=== PATIENT | female | born 1980 | race Caucasian/White ===

== ENCOUNTER 2016-08-10 16:53 | Observation (INO) | payer MEDICARE, OTHER ==
[2016-08-10] MEDS ORDERED: ONDANSETRON 4 MG/2 ML VIAL IVP STA ×3 (17:20→22:04)
[2016-08-10] MEDS ORDERED: HYDROmorphone 1 MG/ML 1 ML SYRINGE IVP STA ×2 (17:21→19:31)
[2016-08-10] MEDS ORDERED: LORazepam 2 MG/ML SYRINGE IV STA ×2 (17:21→21:46)
--- NOTE | 2016-08-10 17:25 | ED ---
General Adult HPI - General Source: patient, RN notes reviewed Mode of arrival: wheelchair Limitations: no limitations <Tip Sims - Last Filed: 08/10/16 19:08> <Cheo Rowland - Last Filed: 08/10/16 20:41> - General Chief complaint: Recheck/Abnormal Lab/Rx Stated complaint: Palpitations - Reaction to Medication Time Seen by Provider: 08/10/16 17:00 - History of Present Illness Initial comments: This is a 36-year-old female who presents to the emergency department with past medical history significant for multiple sclerosis. Patient had some recent visual disturbances which is typical for her exacerbation. Patient's neurologist ordered a gram of Solu-Medrol but more recently she's been having some side effects from Solu-Medrol so they wanted her to come down here be monitored while she was on a Solu-Medrol. Patient states she feels very agitated and feels as though her heart is racing. Patient also states she occasionally feels short of breath when she is taking it but it could just be her anxiety she states. Patient denies any chest pain. Patient denies any abdominal pain patient denies any recent fever chills or cough. Patient denies any vomiting or diarrhea. Patient states she does have some upper back discomfort which is typical of her MS. She denies any recent injury or trauma. Patient states the symptoms secondary to Solu-Medrol started occurring earlier this year and occur every time she seems to get Solu-Medrol. (Tip Sims) - Related Data Home Medications Medication Instructions Recorded Confirmed Albuterol Inhaler [Ventolin Hfa 2 puff INHALATION RT-QID PRN 12/09/13 08/09/16 Inhaler] Famotidine [Pepcid] 20 mg PO BID 12/09/13 08/09/16 Ipratropium/Albuterol Sulfate 1 puff INHALATION RT-QID PRN 12/09/13 08/09/16 [Combivent Respimat Inhaler] Montelukast [Singulair] 10 mg PO DAILY 12/09/13 08/09/16 Topiramate [Topamax] 200 mg PO BID 12/09/13 08/09/16 Dimethyl Fumarate [Tecfidera] 240 mg PO BID 07/15/14 08/09/16 Ocella 1 tab PO DAILY 04/13/15 08/09/16 Ondansetron Odt [Zofran Odt] 4 mg PO Q8HR PRN 04/13/15 08/09/16 Ergocalciferol [Vitamin D2] 50,000 unit PO MO 12/24/15 08/09/16 Meclizine [Antivert] 25 mg PO BID 12/24/15 08/09/16 Sertraline [Zoloft] 100 mg PO BID 12/24/15 08/09/16 Dextroamphetamine/Amphetamine 20 mg PO DAILY 01/01/16 08/09/16 [Adderall] Lisinopril [Prinivil] 10 mg PO DAILY 01/01/16 08/09/16 SUMAtriptan SUCCINATE [Imitrex] 200 mg PO DAILY PRN 01/01/16 08/09/16 Pentosan Polysulfate Sodium 100 mg PO TID 02/07/16 08/09/16 [Elmiron] Dicyclomine [Bentyl] 20 mg PO QID PRN 08/09/16 08/09/16 Morphine Sulfate [Morphine Sulfate 30 mg PO BID 08/09/16 08/09/16 ER] oxyCODONE-APAP 10-325MG [Percocet 1 tab PO Q4-6H PRN 08/09/16 08/09/16 10-325 mg] tiZANidine [Zanaflex] 8 mg PO QID 08/09/16 08/09/16 Previous Rx's Medication Instructions Recorded Oxybutynin Chloride [Ditropan] 5 mg PO TID #45 tab 12/24/15 Allergies Allergy/AdvReac Type Severity Reaction Status Date / Time amoxicillin [Amoxicillin] Allergy Severe Anaphylaxis, Verified 08/10/16 17:02 seizures amoxicillin trihydrate Allergy Severe seizures Verified 08/10/16 17:02 [From Augmentin] ciprofloxacin [From Cipro] Allergy Severe Rash/Hives, Verified 08/10/16 17:02 seizures codeine phosphate Allergy Unknown Rash/Hives Verified 08/10/16 17:02 [From Tylenol-Codeine #3] ibuprofen [From Motrin] Allergy Unknown Rash/Hives,Lips Verified 08/10/16 17:02 swell ketorolac tromethamine Allergy Unknown Rash/Hives Verified 08/10/16 17:02 [From Toradol] cefuroxime axetil Allergy Rash/Hives Verified 08/10/16 17:02 [From Ceftin] latex Allergy Rash/Hives Verified 08/10/16 17:02 NSAIDS (Non-Steroidal Allergy Rash/Hives,Lips Verified 08/10/16 17:02 Anti-Inflamma swell Review of Systems ROS Other: All systems not noted in ROS Statement are negative. <Tip Sims - Last Filed: 08/10/16 19:08> ROS Other: All systems not noted in ROS Statement are negative. <Cheo Rowland - Last Filed: 08/10/16 20:41> ROS Statement: Those systems with pertinent positive or pertinent negative responses have been documented in the HPI. (Tip Sims) (Cheo Rowland) Past Medical History Past Medical History: Neurologic Disorder, Renal Disease, Seizure Disorder Additional Past Medical History / Comment(s): Multiple Sclerosis; migraines; DJD ,. History of Any Multi-Drug Resistant Organisms: C-DIFF Date of last positivie culture/infection: 12/17/2014 MDRO Source:: stool Past Surgical History: Cholecystectomy, Orthopedic Surgery Additional Past Surgical History / Comment(s): Lt shoulder rotator cuff repair 06/06/14 @ [facility] pt has since re-torn, Arthroscopic left knee 2000 & 2002. ARTHROSCOPY LT SHOULDER. Past Anesthesia/Blood Transfusion Reactions: No Reported Reaction Additional Past Anesthesia/Blood Transfusion Reaction / Comment(s): Pt has never recieved blood. Past Psychological History: Anxiety, Depression Additional Psychological History / Comment(s): Pt lives with her and their daughter. She is independent. She has MS and when she has a flare up she will use a walker or wheelchair. She drives a car. Smoking Status: Former smoker Past Alcohol Use History: None Reported Additional Past Alcohol Use History / Comment(s): STARTED SMOKING AGE 17 now smoking about 1/4 ppd. Patient denies any medical marijuana, marijuana, street drug use. She denies any alcohol use or abuse. Patient is and lives with her and one child. There is a dog in the home. No recent travel. Patient is on disability. Past Drug Use History: None Reported - Past Family History Mother Family Medical History: No Reported History Additional Family Medical History / Comment(s): mother is healthy Father Family Medical History: Hypertension <Tip Sims - Last Filed: 08/10/16 19:08> General Exam Limitations: no limitations <Tip Sims - Last Filed: 08/10/16 19:08> <Cheo Rowland - Last Filed: 08/10/16 20:41> - General Exam Comments Initial Comments: GENERAL: Patient is well-developed and well-nourished. Patient is nontoxic and well- hydrated and is in mild distress. ENT: Neck is soft and supple. No significant lymphadenopathy is noted. Oropharynx is clear. Moist mucous membranes. Neck has full range of motion without eliciting any pain. EYES: The sclera were anicteric and conjunctiva were pink and moist. Extraocular movements were intact and pupils were equal round and reactive to light. Eyelids were unremarkable. PULMONARY: Unlabored respirations. Good breath sounds bilaterally. No audible rales rhonchi or wheezing was noted. CARDIOVASCULAR: There is a regular rate and rhythm without any murmurs gallops or rubs. ABDOMEN: Soft and nontender with normal bowel sounds. No palpable organomegaly was noted. There is no palpable pulsatile mass. SKIN: Skin is clear with no lesions or rashes and otherwise unremarkable. NEUROLOGIC: Patient is alert and oriented x3. Cranial nerves II through XII are grossly intact. Normal speech, volume and content. Symmetrical smile. MUSCULOSKELETAL: Normal extremities with adequate strength and full range of motion. No lower extremity swelling or edema. No calf tenderness. LYMPHATICS: No significant lymphadenopathy is noted PSYCHIATRIC: Normal psychiatric evaluation. Patient has mild anxiety (Tip Sims) Course <Tip Sims - Last Filed: 08/10/16 19:08> <Cheo Rowland - Last Filed: 08/10/16 20:41> Vital Signs 08/10/16 08/10/16 16:58 18:02 Temperature 97.8 F Pulse Rate 84 99 Respiratory 20 18 Rate Blood Pressure 154/103 O2 Sat by Pulse 99 100 Oximetry (Tip Sims) (Cheo Rowland) - Reevaluation(s) Reevaluation #1: 08/10/16 20:39 The patient was noted to have a heart related symptoms of 150 and almost 160 range. EKG done at this time showed a heart rate of 127. Interval 124 QRS duration 76 daily since QTC of 324/[address] configuration. I did discuss findings with patient and with Dr. Smith the patient will be admitted for evaluation by cardiology and neurology. (Cheo Rowland) Medical Decision Making - Lab Data Result diagrams: 08/10/16 17:40 08/10/16 17:40 <Tip Sims - Last Filed: 08/10/16 19:08> - Lab Data Result diagrams: 08/10/16 17:40 08/10/16 17:40 <Cheo Rowland - Last Filed: 08/10/16 20:41> - Medical Decision Making EKG shows normal sinus rhythm at 86 bpm OR interval 222 QRS is 80 QT intervals 344 QTC is 411. Patient's EKG shows no ST segment elevation or depression or T- wave abdomen is noted Dr. Rowland will be taking over the care of this patient at 7 PM (Tip Sims) - Lab Data Lab Results 08/10/16 08/10/16 08/10/16 Range/Units 17:40 17:40 17:40 WBC 27.2 H* (3.8-10.6) k/uL RBC 4.61 (3.80-5.40) m/uL Hgb 13.2 (11.4-16.0) gm/dL Hct 41.4 (34.0-46.0) % MCV 89.7 (80.0-100.0) fL MCH 28.5 (25.0-35.0) pg MCHC 31.8 (31.0-37.0) g/dL RDW 13.4 (11.5-15.5) % Plt Count 380 (150-450) k/uL Neutrophils % 86 % Lymphocytes % 7 % Monocytes % 5 % Eosinophils % 0 % Basophils % 0 % Neutrophils # 23.4 H (1.3-7.7) k/uL Lymphocytes # 2.0 (1.0-4.8) k/uL Monocytes # 1.4 H (0-1.0) k/uL Eosinophils # 0.1 (0-0.7) k/uL Basophils # 0.0 (0-0.2) k/uL PT (9.0-12.0) sec INR (<1.1) APTT (22.0-30.0) sec D-Dimer (<0.60) mg/L FEU Sodium 146 H (137-145) mmol/L Potassium 4.4 (3.5-5.1) mmol/L Chloride 110 H (98-107) mmol/L Carbon Dioxide 15 L (22-30) mmol/L Anion Gap 21 mmol/L BUN 13 (7-17) mg/dL Creatinine 0.77 (0.52-1.04) mg/dL Est GFR (MDRD) Af Amer >60 (>60 ml/min/1.73 sqM) Est GFR (MDRD) Non-Af >60 (>60 ml/min/1.73 sqM) Glucose 119 H (74-99) mg/dL Calcium 10.4 H (8.4-10.2) mg/dL Magnesium 1.9 (1.6-2.3) mg/dL Total Bilirubin 0.4 (0.2-1.3) mg/dL AST 22 (14-36) U/L ALT 20 (9-52) U/L Alkaline Phosphatase 44 (38-126) U/L Total Creatine Kinase 65 (30-135) U/L CK-MB (CK-2) 1.0 (0.0-2.4) ng/mL CK-MB (CK-2) Rel Index 1.5 Troponin I <0.012 (0.000-0.034) ng/mL Total Protein 7.9 (6.3-8.2) g/dL Albumin 5.1 H (3.5-5.0) g/dL Urine Color Urine Appearance (Clear) Urine pH (5.0-8.0) Ur Specific Marion (1.001-1.035) Urine Protein (Negative) Urine Glucose (UA) (Negative) Urine Ketones (Negative) Urine Blood (Negative) Urine Nitrate (Negative) Urine Bilirubin (Negative) Urine Urobilinogen (<2.0) mg/dL Ur Leukocyte Esterase (Negative) Urine RBC (0-5) /hpf Urine WBC (0-5) /hpf Ur Squamous Epith Cells (0-4) /hpf Hyaline Casts (0-2) /lpf Urine Mucus (None) /hpf 08/10/16 08/10/16 Range/Units 17:40 18:53 WBC (3.8-10.6) k/uL RBC (3.80-5.40) m/uL Hgb (11.4-16.0) gm/dL Hct (34.0-46.0) % MCV (80.0-100.0) fL MCH (25.0-35.0) pg MCHC (31.0-37.0) g/dL RDW (11.5-15.5) % Plt Count (150-450) k/uL Neutrophils % % Lymphocytes % % Monocytes % % Eosinophils % % Basophils % % Neutrophils # (1.3-7.7) k/uL Lymphocytes # (1.0-4.8) k/uL Monocytes # (0-1.0) k/uL Eosinophils # (0-0.7) k/uL Basophils # (0-0.2) k/uL PT 11.4 (9.0-12.0) sec INR 1.1 (<1.1) APTT 22.3 (22.0-30.0) sec D-Dimer 0.25 (<0.60) mg/L FEU Sodium (137-145) mmol/L Potassium (3.5-5.1) mmol/L Chloride (98-107) mmol/L Carbon Dioxide (22-30) mmol/L Anion Gap mmol/L BUN (7-17) mg/dL Creatinine (0.52-1.04) mg/dL Est GFR (MDRD) Af Amer (>60 ml/min/1.73 sqM) Est GFR (MDRD) Non-Af (>60 ml/min/1.73 sqM) Glucose (74-99) mg/dL Calcium (8.4-10.2) mg/dL Magnesium (1.6-2.3) mg/dL Total Bilirubin (0.2-1.3) mg/dL AST (14-36) U/L ALT (9-52) U/L Alkaline Phosphatase (38-126) U/L Total Creatine Kinase (30-135) U/L CK-MB (CK-2) (0.0-2.4) ng/mL CK-MB (CK-2) Rel Index Troponin I (0.000-0.034) ng/mL Total Protein (6.3-8.2) g/dL Albumin (3.5-5.0) g/dL Urine Color Yellow Urine Appearance Clear (Clear) Urine pH 7.0 (5.0-8.0) Ur Specific Marion 1.012 (1.001-1.035) Urine Protein Trace H (Negative) Urine Glucose (UA) Negative (Negative) Urine Ketones Negative (Negative) Urine Blood Trace H (Negative) Urine Nitrate Negative (Negative) Urine Bilirubin Negative (Negative) Urine Urobilinogen <2.0 (<2.0) mg/dL Ur Leukocyte Esterase Negative (Negative) Urine RBC 6 H (0-5) /hpf Urine WBC 1 (0-5) /hpf Ur Squamous Epith Cells 2 (0-4) /hpf Hyaline Casts 1 (0-2) /lpf Urine Mucus Rare H (None) /hpf (Cheo Rowland) Disposition <Tip Sims - Last Filed: 08/10/16 19:08> <Cheo Rowland - Last Filed: 08/10/16 20:41> Clinical Impression: Tachyarrhythmia, Exacerbation of multiple sclerosis, Atypical chest pain Disposition: ADMITTED IP TO THIS [facility] Condition: Stable
[2016-08-10 18:01] LABS: Basophils % (A) 0 %; Lymphocytes % (A) 7 %
[2016-08-10 18:08] LABS: CH 29.8; CHCM 33.4; Eosinophils # (A) 0.1 k/uL (0-0.7); Eosinophils % (A) 0 %; HCT 41.4 % (34.0-46.0); HDW 2.61; HGB 13.2 gm/dL (11.4-16.0); Luc # (Auto) 0.18; Luc % (Auto) 1; MCH 28.5 pg (25.0-35.0); MCHC 31.8 g/dL (31.0-37.0); MCV 89.7 fL (80.0-100.0); Mean Platelet Volume 7.9; Monocytes # (A) 1.4 k/uL (0-1.0); Monocytes % (A) 5 %; Neutrophils # (A) 23.4 k/uL (1.3-7.7); Neutrophils % (A) 86 %; RBC 4.61 m/uL (3.80-5.40); RDW 13.4 % (11.5-15.5); WBC (Perox) 28.47
[2016-08-10 18:11] LABS: WBC 27.2 k/uL (3.8-10.6)
[2016-08-10 18:12] LABS: ALT 20 U/L (9-52); AST 22 U/L (14-36); Alkaline Phosphatase 44 U/L (38-126); Anion Gap 21 mmol/L; Blood Urea Nitrogen 13 mg/dL (7-17); Calcium 10.4 mg/dL (8.4-10.2); Carbon Dioxide 15 mmol/L (22-30); Chloride 110 mmol/L (98-107); Glucose 119 mg/dL (74-99); Magnesium 1.9 mg/dL (1.6-2.3); Non-African American GFR(MDRD) >60 (>60 ml/min/1.73 sqM); Potassium 4.4 mmol/L (3.5-5.1); Sodium 146 mmol/L (137-145); Total Bilirubin 0.4 mg/dL (0.2-1.3); Total Protein 7.9 g/dL (6.3-8.2)
[2016-08-10 18:28] LABS: INR 1.1 (<1.1); Partial Thromboplastin Time 22.3 sec (22.0-30.0); Prothrombin Time 11.4 sec (9.0-12.0)
[2016-08-10 18:33] LABS: Creatine Kinase 65 U/L (30-135)
--- NOTE | 2016-08-10 18:36 | XR ---
EXAMINATION TYPE: XR chest 2V DATE OF EXAM: 08/10/2016 6:24 PM COMPARISON: 10/29/2013 HISTORY: Chest pain TECHNIQUE: Frontal and lateral views of the chest are obtained. FINDINGS: Heart and mediastinum are normal. Lungs are clear. Diaphragm is normal. There are chest le ads. Bony thorax appears normal. IMPRESSION: Normal chest. No change
[2016-08-10] MEDS ORDERED: DIAZEPAM 5 MG/ML 2 ML SYRINGE IVP STA (18:38)
[2016-08-10 18:47] LABS: Troponin I <0.012 ng/mL (0.000-0.034)
[2016-08-10 19:08] LABS: Appearance,Urine Clear (Clear); Bilirubin,Urine Negative (Negative); Glucose,Urine (UA) Negative (Negative); Ketones,Urine Negative (Negative); Leukocyte Esterase,Urine Negative (Negative); Mucus,Urine Rare /hpf; Nitrite,Urine Negative (Negative); Particle Count 1297; Protein,Urine Trace (Negative); RBC,Urine 6 /hpf (0-5); Specific Gravity,Urine 1.012 (1.001-1.035); Squamous Epithelial Cell,Urine 2 /hpf (0-4); UA Billing (MACRO vs. MICRO) MICRO; Urobilinogen,Urine <2.0 mg/dL (<2.0); WBC,Urine 1 /hpf (0-5)
[2016-08-10] MEDS ORDERED: ORPHENADRINE 30 MG/ML 2 ML VIAL IVP STA (20:10)
[2016-08-10] MEDS ORDERED: MAGNESIUM SULFATE-D5W PMX 1 GM in DEXTROSE/WATER 1 100ML.BAG IVPB ONE (20:30)
[2016-08-10] MEDS ORDERED: diphenhydrAMINE 50 MG/ML 1 ML VIAL IVP STA (20:41)
[2016-08-10] MEDS ORDERED: NITROGLYCERIN SL TABS 0.4 MG TAB SUBLINGUAL PRN (20:42)
[2016-08-10] MEDS ORDERED: ONDANSETRON ODT 4 MG TAB PO PRN (20:44)
[2016-08-10] MEDS ORDERED: DICYCLOMINE 20 MG TAB PO PRN (20:44)
[2016-08-10] MEDS ORDERED: MORPHINE SULFATE 4 MG/ML SYRINGE IVP STA (20:46)
[2016-08-10] MEDS ORDERED: IPRATROPIUM-ALBUTEROL 3 ML NEB INHALATION PRN (20:50)
[2016-08-10] MEDS ORDERED: MORPHINE SULFATE ER 30 MG TABLET PO SCH (21:00)
[2016-08-10] MEDS ORDERED: MORPHINE SULFATE 4 MG/ML SYRINGE IVP PRN (21:13)
[2016-08-10] MEDS ORDERED: DIAZEPAM 5 MG TAB PO STA (21:47)
[2016-08-10] MEDS ORDERED: HYDROmorphone 2 MG/ML 1 ML SYRINGE IVP STA (21:53)
[2016-08-10] MEDS ORDERED: NON-FORMULARY DRUG (Pentosan Polysulfate Sodium [Elmiron] 100 MG) PO SCH (22:00)
[2016-08-10] MEDS ORDERED: tiZANidine 4 MG TAB PO SCH (22:00)
[2016-08-10 23:41] VITALS: BMI 34.6
[2016-08-10] MEDS ORDERED: METOPROLOL TARTRATE 50 MG TAB PO STA (23:55)
[2016-08-11] MEDS ORDERED: IPRATROPIUM-ALBUTEROL 3 ML NEB INHALATION SCH
[2016-08-11] MEDS: SODIUM CHLORIDE 0.9% 1,000 ML IV SCH ×3 (00:29→17:38)
[2016-08-11] MEDS: SERTRALINE 100 MG TAB PO SCH ×3 (00:30→20:53)
[2016-08-11] MEDS: MECLIZINE 25 MG TAB PO SCH ×3 (00:30→20:53)
[2016-08-11] MEDS: TOPIRAMATE 100 MG TAB PO SCH ×3 (00:30→20:53)
[2016-08-11] MEDS: FAMOTIDINE 20 MG TAB PO SCH ×3 (00:30→20:53)
[2016-08-11] MEDS: tiZANidine 4 MG TAB PO SCH ×5 (00:31→20:53)
[2016-08-11] MEDS: OXYBUTYNIN CHLORIDE 5 MG TAB PO SCH ×4 (00:31→21:36)
[2016-08-11] MEDS: HYDROmorphone 1 MG/ML 1 ML SYRINGE IVP PRN ×5 (00:34→17:37)
[2016-08-11] MEDS: DIAZEPAM 5 MG/ML 2 ML SYRINGE IVP PRN ×3 (00:34→13:17)
[2016-08-11 00:39] LABS: Creatine Kinase 83 U/L (30-135)
[2016-08-11 00:52] LABS: Creatine Kinase MB 1.3 ng/mL (0.0-2.4); Troponin I <0.012 ng/mL (0.000-0.034)
[2016-08-11 06:42] LABS: Cholesterol 226 mg/dL (<200); HDL Cholesterol 66 mg/dL (40-60); Triglycerides 88 mg/dL (<150)
[2016-08-11 07:00] LABS: Creatine Kinase 108 U/L (30-135)
[2016-08-11 07:13] LABS: Creatine Kinase MB 1.7 ng/mL (0.0-2.4); Troponin I <0.012 ng/mL (0.000-0.034)
[2016-08-11] MEDS: MORPHINE SULFATE ER 30 MG TABLET PO SCH ×2 (08:54→20:52)
[2016-08-11] MEDS: MONTELUKAST 10 MG TAB PO SCH (08:55)
[2016-08-11] MEDS: LISINOPRIL 10 MG TAB PO SCH (08:55)
[2016-08-11] MEDS ORDERED: NON-FORMULARY DRUG (Dextroamphetamine/Amphetamine [Adderall] 20 MG) PO SCH ×2 (09:00→21:00)
[2016-08-11] MEDS: ONDANSETRON 4 MG/2 ML VIAL IVP PRN ×2 (10:44→21:02)
[2016-08-11 12:03] LABS: Glucose,Whole Blood 218 mg/dL (75-99)
[2016-08-11] MEDS: INSULIN LISPRO (humaLOG) 300 UNIT/3 ML VIAL SQ SCH ×3 (13:17→21:00)
--- NOTE | 2016-08-11 14:15 | P.CONS ---
History of Present Illness - Reason for Consult Consult date: 08/11/16 MS exacerbation - Chief Complaint MS exacerbation - History of Present Illness This is a 36-year-old female who presented to the emergency room at [facility] for exacerbation of multiple sclerosis. Her neurologist and ordered Solu-Medrol IV infusion. She is not sure which in this series of infusions that this one was. But she started to develop agitation and heart racing. She also has some shortness of breath and anxiety. The infusion was ordered because of some visual changes and left-sided weakness she was having. She does have a chronic left foot drop. At the time of my exam she is resting comfortably in bed. Cardiology consultation has been placed. Review of Systems All systems: negative Past Medical History Past Medical History: Asthma, Fibromyalgia, GERD/Reflux, Hypertension, Neurologic Disorder, Renal Disease, Seizure Disorder Additional Past Medical History / Comment(s): Multiple Sclerosis; migraines; DJD ,. interstitial cystitis. PCOS. vit D deficiency History of Any Multi-Drug Resistant Organisms: C-DIFF Year Discovered:: 12/17/2014 MDRO Source:: stool Past Surgical History: Cholecystectomy, Orthopedic Surgery Additional Past Surgical History / Comment(s): Lt shoulder rotator cuff repair 06/06/14 @ [facility].- pt has since re-torn, Arthroscopic left knee 2000 & 2002. ARTHROSCOPY LT SHOULDER. Past Anesthesia/Blood Transfusion Reactions: No Reported Reaction Additional Past Anesthesia/Blood Transfusion Reaction / Comm: Pt has never recieved blood. Past Psychological History: Anxiety, Depression Additional Psychological History / Comment(s): Pt lives with her and their daughter. She is independent. She has MS and when she has a flare up she will use a walker or wheelchair. She drives a car. Smoking Status: Former smoker Past Alcohol Use History: None Reported Additional Past Alcohol Use History / Comment(s): STARTED SMOKING AGE 17 now smoking about 1/4 ppd. Patient denies any medical marijuana, marijuana, street drug use. She denies any alcohol use or abuse. Patient is and lives with her and one child. There is a dog in the home. No recent travel. Patient is on disability. Past Drug Use History: None Reported - Past Family History Mother Family Medical History: No Reported History Additional Family Medical History / Comment(s): mother is healthy Father Family Medical History: Hypertension Medications and Allergies Home Medications Medication Instructions Recorded Confirmed Type Albuterol Inhaler [Ventolin Hfa 2 puff INHALATION RT-QID PRN 12/09/13 08/11/16 History Inhaler] Famotidine [Pepcid] 20 mg PO BID 12/09/13 08/11/16 History Ipratropium/Albuterol Sulfate 1 puff INHALATION RT-QID PRN 12/09/13 08/11/16 History [Combivent Respimat Inhaler] Montelukast [Singulair] 10 mg PO DAILY 12/09/13 08/11/16 History Topiramate [Topamax] 200 mg PO BID 12/09/13 08/11/16 History Dimethyl Fumarate [Tecfidera] 240 mg PO BID 07/15/14 08/11/16 History Ocella 1 tab PO DAILY 04/13/15 08/11/16 History Ondansetron Odt [Zofran Odt] 4 mg PO Q8HR PRN 04/13/15 08/11/16 History Ergocalciferol [Vitamin D2] 50,000 unit PO MO 12/24/15 08/11/16 History Meclizine [Antivert] 25 mg PO BID 12/24/15 08/11/16 History Sertraline [Zoloft] 100 mg PO BID 12/24/15 08/11/16 History Lisinopril [Prinivil] 10 mg PO DAILY 01/01/16 08/11/16 History SUMAtriptan SUCCINATE [Imitrex] 200 mg PO DAILY PRN 01/01/16 08/11/16 History Pentosan Polysulfate Sodium 100 mg PO TID 02/07/16 08/11/16 History [Elmiron] Dicyclomine [Bentyl] 20 mg PO QID PRN 08/09/16 08/11/16 History Morphine Sulfate [Morphine Sulfate 60 mg PO BID 08/09/16 08/11/16 History ER] oxyCODONE-APAP 10-325MG [Percocet 1 tab PO Q4H 08/09/16 08/11/16 History 10-325 mg] tiZANidine [Zanaflex] 8 mg PO QID 08/09/16 08/11/16 History Dextroamphetamine/Amphetamine 20 mg PO BID 08/11/16 08/11/16 History [Adderall] Allergies Allergy/AdvReac Type Severity Reaction Status Date / Time amoxicillin [Amoxicillin] Allergy Severe Anaphylaxis, Verified 08/11/16 09:16 seizures amoxicillin trihydrate Allergy Severe seizures Verified 08/11/16 09:16 [From Augmentin] ciprofloxacin [From Cipro] Allergy Severe Rash/Hives, Verified 08/11/16 09:16 seizures codeine phosphate Allergy Unknown Rash/Hives Verified 08/11/16 09:16 [From Tylenol-Codeine #3] ibuprofen [From Motrin] Allergy Unknown Rash/Hives,Lips Verified 08/11/16 09:16 swell ketorolac tromethamine Allergy Unknown Rash/Hives Verified 08/11/16 09:16 [From Toradol] cefuroxime axetil Allergy Rash/Hives Verified 08/11/16 09:16 [From Ceftin] latex Allergy Rash/Hives Verified 08/11/16 09:16 NSAIDS (Non-Steroidal Allergy Rash/Hives,Lips Verified 08/11/16 09:16 Anti-Inflamma swell Physical Exam Vitals: Vital Signs Temp Pulse Pulse Resp BP BP Pulse Ox 08/11/16 12:00 74 16 161/96 97 08/11/16 08:15 97.3 F L 70 16 145/102 96 08/11/16 04:00 96.7 F L 80 18 126/71 97 08/11/16 00:00 97.6 F 112 H 18 127/78 94 L 08/10/16 23:20 98.0 F 126 H 18 147/93 95 08/10/16 22:20 98.0 F 126 H 18 147/93 95 08/10/16 20:57 117 H 20 143/97 94 L Intake and Output 08/10/16 08/11/16 08/11/16 22:59 06:59 14:59 Intake Total 500 Balance 500 Intake: Amount of Fluid Infused ( 500 ml) Other: Weight 97.4 kg - Constitutional General appearance: mild distress - EENT There is a visual field deficit in the inferior half on the left. She states right I vision is quite blurry and she can make out mostly shadows. She says this is consistent with previous exacerbations. Eyes: no abnormal pupil, EOMI, PERRLA, no ptosis ENT: hearing grossly normal - Neck Neck: normal ROM, no rigidity - Respiratory Respiratory: negative: prolonged expiration, prolonged inspiration - Cardiovascular Rhythm: regular - Gastrointestinal General gastrointestinal: no distended, no tenderness - Neurologic She is alert awake and oriented 3. Speech and language are normal. There is no facial asymmetry. Strength is 4 minus out of 5 in the left upper extremity 5 out of 5 in the right upper extremity 4 minus out of 5 left lower extremity except for dorsiflexion of the left foot. This is at a 3 out of 5. There is a mild sensory deficit on the left upper and lower extremities. No tremors or seizure-like activities are seen. 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 Recommend completing 5 day course of Solu-Medrol as ordered. She will continue Tecfidera. Although she has had similar symptoms with previous exacerbations the lateralizing nature of her weakness and vision problems warrant further workup. I have ordered a carotid Doppler, and MRI of the brain with and without contrast, fasting lipid panel homocysteine level. She has an aspirin ALLERGY and may need to be started on Plavix. We'll await results of the above testing. Continue physical and occupational therapy. If her vision changes did not continue to improve with IV steroids would recommend ophthalmology consult. We will continue to follow for improvement. I have reviewed the history and physical on the above patient. I have reviewed the above note, and agree.
--- NOTE | 2016-08-11 14:59 | CONS ---
DATE OF CONSULTATION: Mrs. Uriarte is a 36 -year-old female who presented through the Emergency Room Department with symptoms of palpitations. She has a history of multiple sclerosis, has been receiving intravenous Solu-Medrol. She received infusion recently and had felt palpitation since that time, feeling shaky and jittery. The symptoms persisted and she came into the emergency room and subsequently admitted. Patient had the feeling of fast heartbeat and associated with tightness in the chest. She has dyspnea. She was quite anxious. She has no documented history of coronary artery disease, has no significant dyspnea on exertion. She had similar symptoms one time with infusion of Solu-Medrol. She has no syncope. No significant dizziness. No PND, orthopnea, or peripheral edema. Her coronary risk factors are remarkable for history of hypertension, and history of smoking. She is a nondiabetic. Her medications include: 1. Adderall. 2. ( ). 3. Ventolin. 4. ( ). 5. Bentyl. 6. Vitamin D. 7. Singulair. 8. Antivert. 9. Prinivil 10 mg daily. 10. Combivent. 11. Pepcid. 12. Zofran. 13. Imitrex. 14. ( ). 15. Ditropan. 16. Topamax. 17. Zanaflex. 18. Percocet. REVIEW OF SYSTEMS: RESPIRATORY SYSTEM: She has history of dyspnea on exertion. History of chronic tobacco use as well as history of asthma. GI: No recent GI bleeding. No peptic ulcer disease. system: No dysuria or hematuria. Nervous system: She has the history of multiple sclerosis. PHYSICAL EXAMINATION: A 36-year-old female, alert, oriented, in no apparent distress. Blood pressure 145/102 with a heart in the 70s. HEAD: Normocephalic. EYES: Sclerae anicteric. NECK: Good upstroke. No bruit. No jugular venous distention. LUNGS: Clear to auscultation. HEART: Regular rate and rhythm. S1, S2, no S3, no rub. ABDOMEN: Soft, nontender, positive bowel sounds. No organomegaly. EXTREMITIES: No edema. Intact distal pulses. Lab data revealed a white blood cell of 27.2. Hemoglobin 13.2. BUN and creatinine 13 and 0.77. Troponin less than 0.012 for 3 samples. Cholesterol 226, LDL of 142. EKG revealed sinus mechanism with sinus tachycardia with nonspecific ST-T wave changes. There is no evidence of significant arrhythmia. Chest x-ray shows no acute changes. IMPRESSION: 1. Symptoms of palpitation with sinus tachycardia secondary to the infusion of steroids. No evidence to suggest malignant arrhythmia. No evidence of supraventricular tachycardia. 2. History of multiple sclerosis. 3. History of hypertension. 4. History of chronic tobacco use. RECOMMENDATIONS: From the cardiac standpoint, she is stable, I see no evidence of any active abnormality. As an outpatient, she may benefit from an echocardiogram but at that this time no further cardiac work-up will be needed. We will see her on an as needed basis. Please feel free to call us for any questions.
[2016-08-11 16:59] LABS: Glucose,Whole Blood 141 mg/dL (75-99)
[2016-08-11] MEDS ORDERED: ALBUTEROL INHALER 60 PUFF/8 GM INHALER INHALATION PRN (17:16)
[2016-08-11] MEDS ORDERED: SUMATRIPTAN SUCCINATE PO PRN (17:16)
[2016-08-11] MEDS ORDERED: NON-FORMULARY DRUG (Ipratropium/Albuterol Sulfate [Combivent Respimat Inhaler] 1 PUFF) INHALATION PRN (17:16)
[2016-08-11] MEDS: LORazepam 2 MG/ML SYRINGE IV PRN (17:36)
[2016-08-11 19:47] LABS: Glucose,Whole Blood 171 mg/dL (75-99)
[2016-08-11] MEDS: HYDROmorphone 2 MG/ML 1 ML SYRINGE IVP PRN (20:52)
[2016-08-11] MEDS ORDERED: NON-FORMULARY DRUG (Dimethyl Fumarate [Tecfidera] 240 MG) PO SCH (21:00)
[2016-08-11] MEDS: HEPARIN SODIUM,PORCINE 5,000 UNIT/ML 1 ML VIAL SQ SCH (21:02)
[2016-08-11] MEDS: oxyCODONE-APAP 10-325MG 1 EACH TAB PO PRN (21:36)
[2016-08-11 23:55] LABS: Glucose,Whole Blood 171 mg/dL (75-99)
[2016-08-12] MEDS: SODIUM CHLORIDE 0.9% 1,000 ML IV SCH ×2 (00:19→11:55)
[2016-08-12] MEDS: HYDROmorphone 2 MG/ML 1 ML SYRINGE IVP PRN ×5 (01:50→21:15)
[2016-08-12] MEDS: LORazepam 2 MG/ML SYRINGE IV PRN ×3 (02:14→23:22)
[2016-08-12] MEDS: oxyCODONE-APAP 10-325MG 1 EACH TAB PO PRN ×3 (02:57→13:38)
[2016-08-12] MEDS: ONDANSETRON 4 MG/2 ML VIAL IVP PRN ×2 (03:00→10:07)
[2016-08-12] MEDS: FAMOTIDINE 20 MG TAB PO SCH ×2 (07:08→20:31)
[2016-08-12] MEDS: LISINOPRIL 10 MG TAB PO SCH (07:09)
[2016-08-12] MEDS: HEPARIN SODIUM,PORCINE 5,000 UNIT/ML 1 ML VIAL SQ SCH ×2 (07:09→20:31)
[2016-08-12] MEDS: MONTELUKAST 10 MG TAB PO SCH (07:09)
[2016-08-12] MEDS: OXYBUTYNIN CHLORIDE 5 MG TAB PO SCH ×3 (07:09→21:14)
[2016-08-12] MEDS: MECLIZINE 25 MG TAB PO SCH ×2 (07:09→20:31)
[2016-08-12] MEDS: TOPIRAMATE 100 MG TAB PO SCH ×2 (07:10→20:31)
[2016-08-12] MEDS: SERTRALINE 100 MG TAB PO SCH ×2 (07:10→20:31)
[2016-08-12] MEDS: tiZANidine 4 MG TAB PO SCH ×4 (07:10→21:14)
[2016-08-12 07:11] LABS: Glucose,Whole Blood 141 mg/dL (75-99)
[2016-08-12] MEDS: ATORVASTATIN 10 MG TAB PO SCH (07:11)
[2016-08-12 08:00] LABS: Anion Gap 12 mmol/L; Blood Urea Nitrogen 13 mg/dL (7-17); Calcium 9.2 mg/dL (8.4-10.2); Carbon Dioxide 21 mmol/L (22-30); Chloride 112 mmol/L (98-107); Glucose 146 mg/dL (74-99); Non-African American GFR(MDRD) >60 (>60 ml/min/1.73 sqM); Potassium 4.2 mmol/L (3.5-5.1); Sodium 145 mmol/L (137-145)
--- NOTE | 2016-08-12 08:01 | HP ---
DATE OF SERVICE: 06/11/2017 CHIEF COMPLAINT: Palpitation reaction to medications. HISTORY OF PRESENT ILLNESS: This 36-year-old woman with a past medical history of multiple medical problems including asthma, fibromyalgia, gastroesophageal reflux disease, history of seizure disorder, multiple sclerosis, optic neuritis, anxiety, depression being followed by neurologist in the outpatient setting has recommended high-dose IV steroids which have been given in the outpatient setting. Friday the patient had a first dose of IV steroids and subsequently patient was having feeling of palpitations and abdominal pain as well as or shortness of breath and some anxiety also. The patient came to [facility] and admitted to the hospital for further evaluation and treatment. Cardiac cath was suspected and oil burner repairer saw the patient and was thought to have sinus tachycardia secondary to infusion of steroids and the patient being closely monitored. There is no history of fever, rigors or chills. No history of headache, loss of consciousness or seizures. Past medical history of asthma, GERD, history of hypertension, hypertension, history of seizure disorder, multiple sclerosis, history of Clostridium difficile colitis, history of anxiety, depression. Medications prior to admission home medications prior to admission include: 1. Zanaflex 8 mg p.o. q.i.d. 2. Oxycodone 1 tablet q.4 p.r.n. 3. Topamax 200 mg p.o. b.i.d. 4. Zoloft 100 mg p.o. b.i.d. 7. Ditropan 5 mg p.o. t.i.d. 8. Zofran 4 mg q.8 p.r.n. 9. 1 tablet p.o. daily. 10. Morphine sulfate ER 60 mg p.o. b.i.d. 11. Singulair 10 mg p.o. daily. 12. Antivert 25 mg p.o. b.i.d. 13. Prinivil 10 mg p.o. daily. 14. Combivent 1 puff q.i.d. p.r.n. 15. Pepcid 20 mg p.o. b.i.d. 16. Vitamin D2, 50,000 Friday. 17. 240 mg p.o. b.i.d. 18. Bentyl 20 mg. 19. Adderall 20 mg p.o. b.i.d. 20. Albuterol 2 puffs q.i.d. p.r.n. ALLERGIES: AMOXICILLIN, CIPROFLOXACIN, CODEINE, IBUPROFEN, KETOROLAC, LATEX AND NSAIDS. FAMILY HISTORY: No history of heart disease or strokes in the family. SOCIAL HISTORY: Previous history of smoking. No history of alcohol intake. REVIEW OF SYSTEMS: ENT: No diminished vision. No diminished hearing. CARDIOVASCULAR: No angina or palpitations. RESPIRATORY: As mentioned earlier. GI: As mentioned earlier. GENITOURINARY: No dysuria. CENTRAL NERVOUS SYSTEM: As mentioned earlier. ALLERGY/IMMUNOLOGY: No asthma or hay fever. MUSCULOSKELETAL: As mentioned earlier. HEMATOLOGY/ONCOLOGY: As mentioned earlier. CONSTITUTIONAL: As mentioned earlier. DERMATOLOGY: Negative. RHEUMATOLOGY: Negative. PSYCHIATRY: As mentioned earlier. PHYSICAL EXAMINATION: The patient is alert and oriented x3. Pulse 74, blood pressure 161/97. Respiratory rate 16. Temperature 97.3, pulse ox 97% on room air. HEENT: Conjunctivae normal. Oral mucosa moist. NECK: No jugular venous distention. No carotid bruit. No lymph node enlargement. CARDIOVASCULAR: S1, S2 muffled. No S3, no S4. RESPIRATORY: Breath sounds diminished at the bases. No rhonchi, no crackles. ABDOMEN: Soft, nontender. No mass palpable. LEGS: No edema. No swelling. Nervous system: Higher function as mentioned. Moves all four limbs. Mild diffuse weakness. LYMPHATICS: No lymph nodes palpable in the neck, axillae or groin. SKIN: No ulcer, rash or bleeding. LABS: this time shows cholesterol 226. LDL is 146, otherwise UA noted. RBCs, WBC 27.2. Sodium is 146. TSH is not available. ASSESSMENT: 1. Palpitations and reaction to high-dose IV steroid infusion. 2. Increased white blood cell count present secondary to steroids. 3. Multiple sclerosis acute exacerbation. 4. Hypernatremia. 5. Decreased carbon dioxide. 6. Increased random blood sugar. 7. Increased calcium. 8. Hyperlipidemia. 9. Obesity with a body mass index of 34.7. 10. History of asthma, fibromyalgia. 11. History of gastroesophageal reflux disease. 12. Hypertension. 14. History of migraines. 15. Seizure disorder. 16. History of interstitial cystitis. 17. History of Clostridium difficile colitis. 18. History of cholecystectomy. 19. History of degenerative joint disease. 20. History of anxiety, depression, not otherwise specified. 21. Remote history of nicotine dependence. 22. FULL CODE. RECOMMENDATIONS AND DISCUSSION: In this 36-year-old woman who presented with multiple complex medical issues, we will monitor the patient closely. Continue the current medications, continue symptomatic treatment. Continue with IV high dose IV steroids. Continue pain management. Otherwise, I would also recommend DVT prophylaxis. Closely with cardiology. EKG has been reviewed. Cardiac work-up. Prognosis guarded because of multiple complex medical issues. Further recommendations to follow. A copy of dictation being forwarded to who is the primary care physician. EMIGDIO
[2016-08-12 08:05] LABS: Basophils % (A) 0 %; CH 29.2; CHCM 32.6; Eosinophils % (A) 0 %; HCT 35.6 % (34.0-46.0); HDW 2.56; HGB 11.1 gm/dL (11.4-16.0); Luc # (Auto) 0.06; Luc % (Auto) 0; Lymphocytes # (A) 1.3 k/uL (1.0-4.8); Lymphocytes % (A) 6 %; MCH 28.1 pg (25.0-35.0); MCHC 31.2 g/dL (31.0-37.0); MCV 90.1 fL (80.0-100.0); Mean Platelet Volume 7.8; Monocytes # (A) 0.6 k/uL (0-1.0); Monocytes % (A) 3 %; Neutrophils # (A) 20.6 k/uL (1.3-7.7); Neutrophils % (A) 91 %; RBC 3.96 m/uL (3.80-5.40); RDW 13.6 % (11.5-15.5); WBC 22.6 k/uL (3.8-10.6); WBC (Perox) 24.04
[2016-08-12] MEDS: INSULIN LISPRO (humaLOG) 300 UNIT/3 ML VIAL SQ SCH ×4 (08:18→20:32)
[2016-08-12] MEDS: MORPHINE SULFATE ER 30 MG TABLET PO SCH ×2 (08:19→20:31)
[2016-08-12] MEDS ORDERED: ERGOCALCIFEROL 50,000 UNIT CAP PO SCH (09:00)
[2016-08-12] MEDS ORDERED: OCELLA PO SCH (09:00)
[2016-08-12 11:32] LABS: Glucose,Whole Blood 140 mg/dL (75-99)
[2016-08-12 12:22] LABS: Hemoglobin A1C 5.3 % (4.2-6.1)
[2016-08-12 16:21] LABS: Glucose,Whole Blood 145 mg/dL (75-99)
[2016-08-12 18:08] LABS: Cholesterol 172 mg/dL (<200); HDL Cholesterol 69 mg/dL (40-60); Triglycerides 125 mg/dL (<150)
[2016-08-12 20:06] VITALS: RESP 16
[2016-08-12 20:20] LABS: Glucose,Whole Blood 163 mg/dL (75-99)
--- NOTE | 2016-08-12 23:24 | P.PN ---
Subjective Principal diagnosis: Patient is a 36-year-old female is being followed by neurology for exacerbation of multiple sclerosis. Her neurologist ordered Solu-Medrol IV infusion. She started developing agitation and racing heart. She also experienced some shortness of breath and anxiety. Infusion was ordered as a result of visual changes and left-sided weakness that was occurring. Patient does have chronic left foot drop in her past medical history. Patient is currently resting in bed in no acute distress. Cardiology is also consulting. Objective - Vital Signs Vital signs: Vital Signs Temp 97.9 F 08/12/16 20:00 Pulse 68 08/12/16 20:00 Resp 16 08/12/16 20:00 BP 183/99 08/12/16 20:00 Pulse Ox 97 08/12/16 20:00 Intake & Output 08/12/16 08/12/16 08/13/16 06:59 18:59 06:59 Intake Total 960 Balance 960 Weight 97.4 kg Intake: Oral 960 Other: # Voids 1 2 - Constitutional Constitutional Comment(s): patient is alert and oriented 3, speech is garbled at times. Patient also appears to be heavily medicated. General appearance: Present: no acute distress - EENT EENT Comment(s): normocephalic/atraumatic - Neck Details: supple no masses - Respiratory Details: no increased work of breathing - Cardiovascular Details: regular rate and rhythm - Gastrointestinal Gastrointestinal Comment(s): nontender nondistended - Integumentary Integumentary: Present: normal. Absent: cyanotic, flushed, pale - Neurologic Neurologic Comment(s): patient is alert and oriented 3. Speech and language are somewhat slurred at times. No facial asymmetry noted cranial nerve testing. Strength is 4 minus out of 5 in the left upper extremity and 5 out of 5 in the right upper extremity , 4 minus out of 5 left lower extremity. Right lower extremity is 3 out of 5. Mild sensory deficit on the left upper and lower extremities. No tremors or seizure-like activity noted. Patient does appear to be highly medicated and does have vertical nystagmus present. Neurologic: Present: CNII-XII intact. Absent: focal deficits - Musculoskeletal Musculoskeletal Comment(s): see comments in neurological section - Psychiatric Psychiatric: Present: A&O x's 3 - Labs CBC & Chem 7: 08/12/16 07:19 08/12/16 07:19 Labs: Abnormal Lab Results - Last 24 Hours (Table) 08/11/16 08/12/16 08/12/16 Range/Units 23:52 06:44 07:19 WBC 22.6 H (3.8-10.6) k/uL Hgb 11.1 L (11.4-16.0) gm/dL Neutrophils # 20.6 H (1.3-7.7) k/uL Chloride (98-107) mmol/L Carbon Dioxide (22-30) mmol/L Glucose (74-99) mg/dL POC Glucose (mg/dL) 171 H 141 H (75-99) mg/dL HDL Cholesterol (40-60) mg/dL TSH (0.465-4.680) mIU/L Free T4 (0.78-2.19) ng/dL 08/12/16 08/12/16 08/12/16 Range/Units 07:19 11:30 16:19 WBC (3.8-10.6) k/uL Hgb (11.4-16.0) gm/dL Neutrophils # (1.3-7.7) k/uL Chloride 112 H (98-107) mmol/L Carbon Dioxide 21 L (22-30) mmol/L Glucose 146 H (74-99) mg/dL POC Glucose (mg/dL) 140 H 145 H (75-99) mg/dL HDL Cholesterol (40-60) mg/dL TSH 0.063 L (0.465-4.680) mIU/L Free T4 0.74 L (0.78-2.19) ng/dL 08/12/16 08/12/16 Range/Units 17:37 20:19 WBC (3.8-10.6) k/uL Hgb (11.4-16.0) gm/dL Neutrophils # (1.3-7.7) k/uL Chloride (98-107) mmol/L Carbon Dioxide (22-30) mmol/L Glucose (74-99) mg/dL POC Glucose (mg/dL) 163 H (75-99) mg/dL HDL Cholesterol 69 H (40-60) mg/dL TSH (0.465-4.680) mIU/L Free T4 (0.78-2.19) ng/dL Assessment and Plan (1) Left-sided weakness Status: Acute (2) Visual changes Status: Chronic (3) Medication reaction Status: Suspected (4) Multiple sclerosis exacerbation Narrative/Plan: Patient seems to have suffered an exacerbation of her known multiple sclerosis. She is currently completing the 5 day course of Solu-Medrol as previously ordered. She'll also continue her Tecfidera. It is noted that she has had symptoms that were similar with previous exacerbations. However, the lateralizing weakness and vision changes warrant further workup. The patient was ordered a carotid Doppler, MRI of the brain with and without contrast, fasting lipid panel and homocystine level yesterday. Plavix was also recommended. Patient's fasting lipid panel returned elevated and the patient was placed on Lipitor by Dr. Soto. I am also going to start the patient on Plavix at this time. On exam the patient was unable to consistently keep eyes open, had slurred speech, inability to maintain a full conversation, it was brought to my attention that there is a significant amount of controlled substances in use with this patient. After reviewing the patients medication history, she currently has opioids/narcotics, muscle relaxant and a benzodiazepine concurrently in use. As a result, I am going to make the following changes to her Medication regimen: patient's benzodiazepine is for anxiety & based on the use it will remain. I am going to stop her muscle relaxant and her Dilaudid at this time.The concurrent use of benzodiazepines, muscle relaxants and narcotics/ opioids increase the risk of respiratory depression. Neurology will continue and provide further recommendations as warranted. Feel free to contact our office with any questions or concerns. I discussed the patient's pertinent medical information with Dr. Monsalve. He agrees with the plan of care as implemented. Status: Acute
[2016-08-13] MEDS: SODIUM CHLORIDE 0.9% 1,000 ML IV SCH ×2 (00:17→21:21)
[2016-08-13] MEDS ORDERED: amLODIPine 5 MG TAB PO STA (00:44)
[2016-08-13] MEDS: oxyCODONE-APAP 10-325MG 1 EACH TAB PO PRN ×4 (02:28→17:40)
[2016-08-13] MEDS: LORazepam 2 MG/ML SYRINGE IV PRN (05:09)
[2016-08-13 07:28] LABS: Glucose,Whole Blood 148 mg/dL (75-99)
[2016-08-13] MEDS: MORPHINE SULFATE ER 30 MG TABLET PO SCH ×2 (07:39→21:31)
[2016-08-13] MEDS: OXYBUTYNIN CHLORIDE 5 MG TAB PO SCH ×3 (07:41→21:30)
[2016-08-13] MEDS: SERTRALINE 100 MG TAB PO SCH ×2 (07:42→21:30)
[2016-08-13] MEDS: TOPIRAMATE 100 MG TAB PO SCH ×2 (07:42→21:31)
[2016-08-13] MEDS: MONTELUKAST 10 MG TAB PO SCH (07:43)
[2016-08-13] MEDS: CLOPIDOGREL 75 MG TAB PO SCH (07:43)
[2016-08-13] MEDS: MECLIZINE 25 MG TAB PO SCH ×2 (07:43→21:31)
[2016-08-13] MEDS: ATORVASTATIN 10 MG TAB PO SCH (07:44)
[2016-08-13] MEDS: HEPARIN SODIUM,PORCINE 5,000 UNIT/ML 1 ML VIAL SQ SCH ×2 (07:44→21:32)
[2016-08-13] MEDS: FAMOTIDINE 20 MG TAB PO SCH ×2 (07:45→21:31)
[2016-08-13] MEDS: LISINOPRIL 10 MG TAB PO SCH (07:45)
[2016-08-13] MEDS: INSULIN LISPRO (humaLOG) 300 UNIT/3 ML VIAL SQ SCH ×4 (07:46→21:37)
[2016-08-13 08:17] LABS: Anion Gap 15 mmol/L; Blood Urea Nitrogen 14 mg/dL (7-17); Calcium 9.1 mg/dL (8.4-10.2); Carbon Dioxide 20 mmol/L (22-30); Chloride 110 mmol/L (98-107); Glucose 119 mg/dL (74-99); Non-African American GFR(MDRD) >60 (>60 ml/min/1.73 sqM); Potassium 4.1 mmol/L (3.5-5.1); Sodium 145 mmol/L (137-145)
[2016-08-13 08:31] LABS: Basophils % (A) 0 %; CH 28.7; CHCM 32.3; Eosinophils % (A) 0 %; HCT 35.9 % (34.0-46.0); HDW 2.52; HGB 11.5 gm/dL (11.4-16.0); Luc # (Auto) 0.06; Luc % (Auto) 0; Lymphocytes # (A) 1.6 k/uL (1.0-4.8); Lymphocytes % (A) 10 %; MCH 28.8 pg (25.0-35.0); MCHC 32.2 g/dL (31.0-37.0); MCV 89.5 fL (80.0-100.0); Mean Platelet Volume 7.3; Monocytes # (A) 0.4 k/uL (0-1.0); Monocytes % (A) 2 %; Neutrophils # (A) 14.2 k/uL (1.3-7.7); Neutrophils % (A) 87 %; RBC 4.01 m/uL (3.80-5.40); RDW 13.2 % (11.5-15.5); WBC 16.2 k/uL (3.8-10.6)
--- NOTE | 2016-08-13 08:48 | PN ---
DATE OF SERVICE: 08/12/2016 This 36-year-old woman who was admitted with palpitations and multiple other medical problems also had high-dose IV steroids for multiple sclerosis acute exacerbation. The patient is being closely monitored at this time. The patient also had elevated WBC 22.6 at this time. The TSH and FT4 were low. PAST MEDICAL HISTORY: Reviewed. REVIEW OF SYSTEMS: CARDIOVASCULAR: No angina. RESPIRATORY: As mentioned earlier. GI: As mentioned earlier. : No dysuria. NERVOUS SYSTEM: No numbness or weakness. Current medications are: 1. DuoNeb q.i.d. and p.r.n. 2. Lipitor 10 mg daily. 3. Bentyl. 4. Vitamin B. 5. Pepcid. 6. Heparin. 7. Humalog. 8. Zestril. 9. Ativan. 10. Antivert. 11. Singulair. 12. MS Contin. 13. Nitrostat. 14. Pentasa. 17. Zofran. 18. Percocet . 19. Zanaflex. 20. Tobramycin. PHYSICAL EXAMINATION: Patient is alert and oriented x3. Pulse 82, blood pressure 120/62, respirations 18, temperature 97.4, pulse ox 97% on room air. HEENT: Conjunctivae normal. NECK: No jugular venous distention. CARDIOVASCULAR: S1 and S2, muffled. RESPIRATORY: Breath sounds diminished at the bases. No rhonchi, no crackles. ABDOMEN: Soft, nontender. No mass palpable. LEGS: No edema, no swelling. NERVOUS SYSTEM: Higher function as mentioned. Moves all four limbs. Mild diffuse weakness. LYMPHATIC: No lymphadenopathy in the neck, axillae or groin. SKIN: No ulcer, rash or bleeding. LABS: WBC is 22.6, hemoglobin 11.1. Thyroid functions are noted. ASSESSMENT: 1. Palpitations, reaction to high dose IV steroids, possibly sinus tachycardia. 2. Increased WBC, possibly reactive secondary to steroids. 3. Low T4 and TSH, rule out essential hypothyroidism. 4. Multiple sclerosis acute exacerbation. 5. Hypernatremia secondary to dehydration present on admission. 6. Decreased CO2. 7. Increased random blood sugar. 8. Increased calcium. 9. Hyperlipidemia. 10. Obesity with body mass index of 34.6. 11. History of asthma. 12. Fibromyalgia. 13. History of gastroesophageal reflux disease. 14. Hypertension. 15. History of migraines. 16. History of seizures. 17. History of cystitis. 18. History of Clostridium difficile. 19. History of ulcerative colitis. 20. History of cholecystectomy. 21. History of degenerative joint disease. 22. History of anxiety, depression, not otherwise specified. 23. Remote history of nicotine dependence. 24. Chronic pain syndrome. 25. FULL CODE. RECOMMENDATIONS AND DISCUSSION: In this 36-year-old woman who presented with multiple complex medical issues. Will monitor the patient closely. Continue the current medications, continue with the symptomatic treatment. At this time I would recommend continue the current medications, continue with symptomatic treatment. I would also recommend IV steroids cautiously to continue. Repeat labs. I would also recommend and repeat FT4 in the morning and as well as TSH and FT3 to be repeated tomorrow. Otherwise, I will follow the patient closely with you. See other orders for details. Otherwise, Dr. Monsalve also will be following the patient from the neurological point of view. Further recommendations to follow. JYOTID
[2016-08-13] MEDS ORDERED: amLODIPine 5 MG TAB PO SCH (09:45)
--- NOTE | 2016-08-13 11:28 | US ---
EXAMINATION TYPE: US carotid duplex BILAT DATE OF EXAM: 08/13/2016 11:16 AM COMPARISON: NONE CLINICAL HISTORY: US. Right sided weakness, chest pain EXAM MEASUREMENTS: RIGHT: Peak Systolic Velocity (PSV) cm/sec ----- Right CCA: 76.4 ----- Right ICA: 74.3 ----- Right ECA: 101.7 ICA/CCA ratio: 1.0 RIGHT: End Diastole cm/sec ----- Right CCA: 24.1 ----- Right ICA: 22.6 ----- Right ECA: 24.1 LEFT: Peak Systolic Velocity (PSV) cm/sec ----- Left CCA: 82.0 ----- Left ICA: 75.4 ----- Left ECA: 81.0 ICA/CCA ratio: 0.9 LEFT: End Diastole cm/sec ----- Left CCA: 27.0 ----- Left ICA: 27.0 ----- Left ECA: 20.2 VERTEBRALS (direction of flow): Right Vertebral: Antegrade Left Vertebral: Antegrade Minimal plaque noted bilateral bifurcations. No increased velocities. No significant stenosis seen IMPRESSION: 1. Minimal plaque bilaterally with no significant hemodynamic stenosis.
[2016-08-13 11:30] LABS: Glucose,Whole Blood 130 mg/dL (75-99)
[2016-08-13] MEDS: HYDROmorphone 2 MG/ML 1 ML SYRINGE IVP PRN ×2 (11:46→15:04)
[2016-08-13] MEDS: DIAZEPAM 5 MG/ML 2 ML SYRINGE IVP PRN (12:37)
[2016-08-13] MEDS: tiZANidine 4 MG TAB PO SCH ×3 (12:38→21:30)
[2016-08-13] MEDS ORDERED: cloNIDine 0.3 MG/24HR PATCH 1 PATCH PATCH TRANSDERM SCH (14:30)
[2016-08-13] MEDS: amLODIPine 10 MG TAB PO SCH (15:06)
[2016-08-13 16:29] LABS: Glucose,Whole Blood 142 mg/dL (75-99)
--- NOTE | 2016-08-13 18:11 | P.CNEND ---
History of Present Illness Consult date: 08/13/16 Consult reason: Endocrine gland tumor (thyroid, adrenal, pituitary), other Requesting physician: Rodolfo Soto History of present illness: 36-year-old female who was admitted in the hospital with side effects of IV Solu -Medrol infusions. Patient has known history of multiple sclerosis. Recently she had exacerbation and was being treated with IV steroids. After her infusion for his ago patient developed palpitations, anxiety, shortness of breath, nausea and abdominal pain. Patient also complains of vision loss in the right eye in partial loss of vision in left eye. Patient did have similar symptoms in the past due to MS exacerbation. No known history of pituitary tumor. Patient has history of primary hypothyroidism. No other hormonal abnormalities. Review of Systems Constitutional: Denies chills, Denies fever Eyes: bilateral as per HPI, bilateral decreased vision (Complains of complete vision loss in the right eye and partial. Visual loss is improving), bilateral loss of vision, denies loss of peripheral vision, denies tunnel vision/blind spots Ears, nose, mouth and throat: Denies headache, Denies sore throat Cardiovascular: Reports dyspnea on exertion, Reports lightheadedness, Reports palpitations, Denies chest pain, Denies shortness of breath Respiratory: Denies cough Gastrointestinal: Reports abdominal pain, Reports bloating, Reports heartburn Genitourinary: Denies dysuria, Denies hematuria Integumentary: Denies pruritus, Denies rash Neurological: Denies numbness, Denies weakness Psychiatric: Denies anxiety, Denies depression Endocrine: Denies fatigue, Denies weight change Past Medical History Past Medical History: Asthma, Fibromyalgia, GERD/Reflux, Hypertension, Neurologic Disorder, Renal Disease, Seizure Disorder Additional Past Medical History / Comment(s): Multiple Sclerosis; migraines; DJD ,. interstitial cystitis. PCOS. vit D deficiency History of Any Multi-Drug Resistant Organisms: C-DIFF Date of last positivie culture/infection: 12/17/2014 MDRO Source:: stool Past Surgical History: Cholecystectomy, Orthopedic Surgery Additional Past Surgical History / Comment(s): Lt shoulder rotator cuff repair 06/06/14 @ [facility].- pt has since re-torn, Arthroscopic left knee 2000 & 2002. ARTHROSCOPY LT SHOULDER. Past Anesthesia/Blood Transfusion Reactions: No Reported Reaction Additional Past Anesthesia/Blood Transfusion Reaction / Comment(s): Pt has never recieved blood. Past Psychological History: Anxiety, Depression Additional Psychological History / Comment(s): Pt lives with her and their daughter. She is independent. She has MS and when she has a flare up she will use a walker or wheelchair. She drives a car. Smoking Status: Former smoker Past Alcohol Use History: None Reported Additional Past Alcohol Use History / Comment(s): STARTED SMOKING AGE 17 now smoking about 1/4 ppd. Patient denies any medical marijuana, marijuana, street drug use. She denies any alcohol use or abuse. Patient is and lives with her and one child. There is a dog in the home. No recent travel. Patient is on disability. Past Drug Use History: None Reported - Past Family History Mother Family Medical History: No Reported History Additional Family Medical History / Comment(s): mother is healthy Father Family Medical History: Hypertension Medications and Allergies Home Medications Medication Instructions Recorded Confirmed Type Albuterol Inhaler [Ventolin Hfa 2 puff INHALATION RT-QID PRN 12/09/13 08/11/16 History Inhaler] Famotidine [Pepcid] 20 mg PO BID 12/09/13 08/11/16 History Ipratropium/Albuterol Sulfate 1 puff INHALATION RT-QID PRN 12/09/13 08/11/16 History [Combivent Respimat Inhaler] Montelukast [Singulair] 10 mg PO DAILY 12/09/13 08/11/16 History Topiramate [Topamax] 200 mg PO BID 12/09/13 08/11/16 History Dimethyl Fumarate [Tecfidera] 240 mg PO BID 07/15/14 08/11/16 History Ocella 1 tab PO DAILY 04/13/15 08/11/16 History Ondansetron Odt [Zofran Odt] 4 mg PO Q8HR PRN 04/13/15 08/11/16 History Ergocalciferol [Vitamin D2] 50,000 unit PO MO 12/24/15 08/11/16 History Meclizine [Antivert] 25 mg PO BID 12/24/15 08/11/16 History Sertraline [Zoloft] 100 mg PO BID 12/24/15 08/11/16 History Lisinopril [Prinivil] 10 mg PO DAILY 01/01/16 08/11/16 History SUMAtriptan SUCCINATE [Imitrex] 200 mg PO DAILY PRN 01/01/16 08/11/16 History Pentosan Polysulfate Sodium 100 mg PO TID 02/07/16 08/11/16 History [Elmiron] Dicyclomine [Bentyl] 20 mg PO QID PRN 08/09/16 08/11/16 History Morphine Sulfate [Morphine Sulfate 60 mg PO BID 08/09/16 08/11/16 History ER] oxyCODONE-APAP 10-325MG [Percocet 1 tab PO Q4H 08/09/16 08/11/16 History 10-325 mg] tiZANidine [Zanaflex] 8 mg PO QID 08/09/16 08/11/16 History Dextroamphetamine/Amphetamine 20 mg PO BID 08/11/16 08/11/16 History [Adderall] Allergies Allergy/AdvReac Type Severity Reaction Status Date / Time amoxicillin [Amoxicillin] Allergy Severe Anaphylaxis, Verified 08/11/16 09:16 seizures amoxicillin trihydrate Allergy Severe seizures Verified 08/11/16 09:16 [From Augmentin] ciprofloxacin [From Cipro] Allergy Severe Rash/Hives, Verified 08/11/16 09:16 seizures codeine phosphate Allergy Unknown Rash/Hives Verified 08/11/16 09:16 [From Tylenol-Codeine #3] ibuprofen [From Motrin] Allergy Unknown Rash/Hives,Lips Verified 08/11/16 09:16 swell ketorolac tromethamine Allergy Unknown Rash/Hives Verified 08/11/16 09:16 [From Toradol] cefuroxime axetil Allergy Rash/Hives Verified 08/11/16 09:16 [From Ceftin] latex Allergy Rash/Hives Verified 08/11/16 09:16 NSAIDS (Non-Steroidal Allergy Rash/Hives,Lips Verified 08/11/16 09:16 Anti-Inflamma swell Physical Exam Vitals: Vital Signs Temp Pulse Pulse Resp BP BP Pulse Ox 08/13/16 17:35 49 L 171/89 08/13/16 14:49 97.8 F 53 L 16 200/98 96 08/13/16 08:00 190/100 08/13/16 07:22 98.2 F 49 L 16 96 08/13/16 05:18 173/91 01/03/17 02:34 98.3 F 50 L 16 191/96 95 08/12/16 20:00 97.9 F 68 16 183/99 97 Intake and Output 08/13/16 08/13/16 08/13/16 06:59 14:59 22:59 Intake Total 500 480 Balance 500 480 Intake: Oral 500 480 Other: # Voids 2 3 Weight 115 kg - Constitutional General appearance: no acute distress - EENT Eyes: EOMI, PERRLA, normal appearance - Neck Neck: no lymphadenopathy - Respiratory Respiratory: bilateral: CTA (Name) - Cardiovascular Rhythm: regular Heart sounds: normal: S1, S2 - Gastrointestinal General gastrointestinal: no organomegaly, soft, no tenderness - Psychiatric Psychiatric: A&O x's 3 Results - Labs Result Diagrams: 08/13/16 07:22 08/13/16 07:22 Abnormal Lab Results - Last 24 Hours (Table) 08/12/16 08/12/16 08/13/16 Range/Units 17:37 20:19 07:03 WBC (3.8-10.6) k/uL Neutrophils # (1.3-7.7) k/uL Chloride (98-107) mmol/L Carbon Dioxide (22-30) mmol/L Glucose (74-99) mg/dL POC Glucose (mg/dL) 163 H 148 H (75-99) mg/dL HDL Cholesterol 69 H (40-60) mg/dL TSH (0.465-4.680) mIU/L Free T4 (0.78-2.19) ng/dL Free T3 pg/mL (2.8-5.3) pg/ml 08/13/16 08/13/16 08/13/16 Range/Units 07:22 07:22 11:24 WBC 16.2 H (3.8-10.6) k/uL Neutrophils # 14.2 H (1.3-7.7) k/uL Chloride 110 H (98-107) mmol/L Carbon Dioxide 20 L (22-30) mmol/L Glucose 119 H (74-99) mg/dL POC Glucose (mg/dL) 130 H (75-99) mg/dL HDL Cholesterol (40-60) mg/dL TSH 0.107 L (0.465-4.680) mIU/L Free T4 0.67 L (0.78-2.19) ng/dL Free T3 pg/mL 2.6 L (2.8-5.3) pg/ml 08/13/16 Range/Units 16:28 WBC (3.8-10.6) k/uL Neutrophils # (1.3-7.7) k/uL Chloride (98-107) mmol/L Carbon Dioxide (22-30) mmol/L Glucose (74-99) mg/dL POC Glucose (mg/dL) 142 H (75-99) mg/dL HDL Cholesterol (40-60) mg/dL TSH (0.465-4.680) mIU/L Free T4 (0.78-2.19) ng/dL Free T3 pg/mL (2.8-5.3) pg/ml Diabetes panel 08/12/16 08/13/16 Range/Units 17:37 07:22 Sodium 145 (137-145) mmol/L Potassium 4.1 (3.5-5.1) mmol/L Chloride 110 H (98-107) mmol/L Carbon Dioxide 20 L (22-30) mmol/L BUN 14 (7-17) mg/dL Creatinine 0.70 (0.52-1.04) mg/dL Glucose 119 H (74-99) mg/dL Calcium 9.1 (8.4-10.2) mg/dL Triglycerides 125 (<150) mg/dL HDL Cholesterol 69 H (40-60) mg/dL Thyroid panel 08/13/16 Range/Units 07:22 TSH 0.107 L (0.465-4.680) mIU/L Calcium panel 08/13/16 Range/Units 07:22 Calcium 9.1 (8.4-10.2) mg/dL Pituitary panel 08/13/16 Range/Units 07:22 Sodium 145 (137-145) mmol/L Potassium 4.1 (3.5-5.1) mmol/L Chloride 110 H (98-107) mmol/L Carbon Dioxide 20 L (22-30) mmol/L BUN 14 (7-17) mg/dL Creatinine 0.70 (0.52-1.04) mg/dL Glucose 119 H (74-99) mg/dL Calcium 9.1 (8.4-10.2) mg/dL TSH 0.107 L (0.465-4.680) mIU/L Adrenal panel 08/13/16 Range/Units 07:22 Sodium 145 (137-145) mmol/L Potassium 4.1 (3.5-5.1) mmol/L Chloride 110 H (98-107) mmol/L Carbon Dioxide 20 L (22-30) mmol/L BUN 14 (7-17) mg/dL Creatinine 0.70 (0.52-1.04) mg/dL Glucose 119 H (74-99) mg/dL Calcium 9.1 (8.4-10.2) mg/dL Assessment and Plan (1) Pituitary tumor Narrative/Plan: 36-year-old patient was admitted because of side effects of high-dose IV steroids used for treating MS exacerbation. No known history of pituitary tumor. Visual loss atypical of pituitary tumor. Patient is scheduled to have an MRI done. We'll follow-up on the results of MRI. We will do hormonal workup if patient has pituitary tumor on MRI. #2 primary hypothyroidism Continue Synthroid Thanks for the consultation. We'll follow on the pending studies Status: Acute Time with Patient: Greater than 30
--- NOTE | 2016-08-13 18:31 | PN ---
DATE OF SERVICE: 08/13/2016 This 36-year-old woman who was admitted with palpitations, a reaction to IV steroids . The patient also has significant multiple sclerosis. The patient also found to have low T4 and TSH noted, indicating a central hypothyroidism. Patient is being closely monitored at this time. Patient complains of generalized tiredness, weakness. PAST MEDICAL HISTORY: Reviewed. REVIEW OF SYSTEMS: CARDIOVASCULAR: As mentioned earlier. RESPIRATORY: As mentioned earlier. GI: As mentioned earlier. NERVOUS: As mentioned earlier. ENDOCRINE: As mentioned earlier. Current medications are reviewed, include: 1. DuoNeb q.i.d. and p.r.n. 2. Norvasc 10 mg. 3. Lipitor 10 mg daily. 5. Plavix. 6. Valium 10 mg p.o. t.i.d. p.r.n. 7. Bentyl 20 mg daily. 8. Vitamin D2. 9. Pepcid. 10. Heparin. 11. Dilaudid 2 mg q.2 hours p.r.n. 12. Humalog. 13. Synthroid. 14. Zestril. 15. Antivert. 16. Solu-Medrol. 17. Nitrostat. 18. Zofran. 19. Ditropan. 20. Percocet. 22. Topamax. PHYSICAL EXAM: Patient alert and oriented x4. Pulse 53, blood pressure 208/98, respirations 16, temperature 97.8, pulse ox 96% on room air. HEENT: Conjunctivae normal. NECK: No jugular venous distension. CARDIOVASCULAR: S1 and S2 muffled. RESPIRATORY: Breath sounds diminished in the bases. A few scattered rhonchi and crackles. ABDOMEN: Soft, nontender. LEGS: No edema. NERVOUS SYSTEM: Diffusely weak. LABS: Glucose 190 and 130. Otherwise TSH, free T4 noted. ASSESSMENT: 1. Palpitations, reaction to high-dose IV steroids, possible sinus tachycardia. 2. Increased WBC, possibly reactive secondary to steroids. 3. Low free T4, free T3, TSH, possibly primary hypothyroidism. 4. Multiple sclerosis acute exacerbation. 5. Hyponatremia secondary to dehydration, present on admission. 6. Decreased carbon dioxide. 7. Increased random blood sugar. 8. Increased calcium. 9. Hyperlipidemia. 10. Obesity, body mass index of 34.6. 11. History of asthma. 12. History of fibromyalgia. 13. History of gastroesophageal reflux disease. 14. Hypertension. 15. History of migraines. 16. History of seizure disorder. 17. History of cystitis. 18. History of Clostridium difficile colitis. 19. Ulcerative colitis. 20. History of cholecystectomy. 21. Degenerative joint disease. 22. Anxiety, depression, not otherwise specified. 23. Remote history of nicotine dependence. 24. Chronic pain syndrome. 25. FULL CODE. RECOMMENDATIONS AND DISCUSSION: Recommend to continue current medications. Continue with monitoring and symptomatic treatment. Otherwise at this time, continue with IV steroids, monitor closely. Monitor blood sugars closely and thyroid functions are noted. MRA with reference to pituitary. Endocrine consult. Guarded prognosis because of multiple complex medical issues. Further recommendations to follow. MTDD
[2016-08-13 21:06] LABS: Glucose,Whole Blood 147 mg/dL (75-99)
--- NOTE | 2016-08-13 22:01 | MR ---
Pituitary MRI HISTORY: Pituitary tumor, multiple sclerosis Multiplanar multisequence and postcontrast images obtained through the brain following 20 cc MultiHan ce IV. Exam correlated to prior brain MRI 27 October 2013 The pituitary shows a normal appearance. No abnormal enhancement. Pituitary stalk is midline. Corpus callosum unremarkable as seen. Visualized portions of the optic chiasm are normal. IMPRESSION: Normal pituitary MRI
--- NOTE | 2016-08-13 22:12 | P.PN ---
Subjective Principal diagnosis: exacerbation of multiple sclerosis Patient is a 36-year-old female is being followed by neurology for exacerbation of multiple sclerosis. Her neurologist ordered Solu-Medrol IV infusion. She started developing agitation and racing heart. She also experienced some shortness of breath and anxiety. Infusion was ordered as a result of visual changes and left-sided weakness that was occurring. Patient does have chronic left foot drop in her past medical history. Patient is currently resting in bed in no acute distress. Cardiology and endocrinology are also consulting. Objective - Vital Signs Vital signs: Vital Signs Temp 97.4 F L 08/13/16 19:30 Pulse 63 08/13/16 19:30 Resp 16 08/13/16 19:30 BP 152/82 08/13/16 19:30 Pulse Ox 96 08/13/16 19:30 Intake & Output 08/13/16 08/13/16 08/14/16 06:59 18:59 06:59 Intake Total 500 480 Balance 500 480 Weight 115 kg Intake: Oral 500 480 Other: # Voids 2 3 - Constitutional Constitutional Comment(s): Patient is alert and oriented 3, speech is normal. Patient is resting in bed comfortably in no acute distress. - EENT EENT Comment(s): atraumatic normocephalic - Neck Details: supple no masses - Respiratory Details: no increased work of breathing - Cardiovascular Details: regular rate Rhythm: regular - Gastrointestinal Gastrointestinal Comment(s): nontender nondistended - Integumentary Integumentary: Absent: flushed, jaundiced - Neurologic Neurologic Comment(s): cranial nerves II through XII intact. Patient is alert oriented 3. Speech and language are normal. No facial asymmetry noted on cranial nerve testing. Strength is equal and strong bilaterally in the upper extremities at 4+ out of 5 , right lower extremity is 3 out of 5. No sensory deficits were noted on testing. No tremors or seizure-like activity noted. Patient does still have moderate vertical nystagmus present. Neurologic: Present: CNII-XII intact. Absent: focal deficits - Musculoskeletal Musculoskeletal Comment(s): See notes as indicated in neurological section. - Psychiatric Psychiatric Comment(s): Psychiatry consult recommended see notes below an additional findings for further details. Psychiatric: Present: A&O x's 3, intact judgment & insight - Additional findings Additional findings: Patient was reported to be up ambulating more than she would disclose to provide her but was witnessed by hospital staff. She is also observed to be using vape inhalation device in her room. On exam the patient is intermittently distractible and it is apparent that she is not providing full effort with assessments. - Labs CBC & Chem 7: 08/13/16 07:22 08/13/16 07:22 Labs: Abnormal Lab Results - Last 24 Hours (Table) 08/13/16 08/13/16 08/13/16 Range/Units 07:03 07:22 07:22 WBC 16.2 H (3.8-10.6) k/uL Neutrophils # 14.2 H (1.3-7.7) k/uL Chloride 110 H (98-107) mmol/L Carbon Dioxide 20 L (22-30) mmol/L Glucose 119 H (74-99) mg/dL POC Glucose (mg/dL) 148 H (75-99) mg/dL TSH 0.107 L (0.465-4.680) mIU/L Free T4 0.67 L (0.78-2.19) ng/dL Free T3 pg/mL 2.6 L (2.8-5.3) pg/ml 08/13/16 08/13/16 08/13/16 Range/Units 11:24 16:28 20:57 WBC (3.8-10.6) k/uL Neutrophils # (1.3-7.7) k/uL Chloride (98-107) mmol/L Carbon Dioxide (22-30) mmol/L Glucose (74-99) mg/dL POC Glucose (mg/dL) 130 H 142 H 147 H (75-99) mg/dL TSH (0.465-4.680) mIU/L Free T4 (0.78-2.19) ng/dL Free T3 pg/mL (2.8-5.3) pg/ml - Imaging and Cardiology MRI of the brain is still pending. Carotid Doppler results noted minimal plaque , no hemodynamically significant stenosis. Assessment and Plan (1) Left-sided weakness Status: Acute (2) Visual changes Status: Chronic (3) Medication reaction Status: Suspected (4) Multiple sclerosis exacerbation Narrative/Plan: Patient seems to have suffered an exacerbation of her known multiple sclerosis. She is currently completing the 5 day course of Solu-Medrol as previously ordered. She'll also continue her Tecfidera. It is noted that she has had symptoms that were similar with previous exacerbations. However, the lateralizing weakness and vision changes warranted further workup. Carotid Doppler noted minimal plaque. Essentially no hemodynamically significant stenosis. MRI of the brain with and without contrast is still pending. If the patient's MRI returns with no notable changes or any pertinent findings, the patient can be cleared from a neurological standpoint. Fasting lipid panel returned elevated and the patient was placed on Lipitor by Dr. Soto. Patient was also started on Plavix by neurology. The patient was intermittently distractible on physical exam today. Further, the patient's does not appear to be giving full effort during assessments. Recommend psychiatric consultation for chronic pain, opioid risk assessment and possible malingering. The patient made repeated statements that her pain was not being adequately managed despite her extensive pain medication regimen and having previously withdrawn medications reimplemented. Recommend Ophthalmological follow up on discharge As noted above, if the patient's MRI of the brain meets the criteria above, she can be cleared from a neurological standpoint and neurology with follow on an as -needed basis. Patient does have a neurology provider currently and should be referred to that provider at discharge for follow-up in the office. Feel free to contact our office with any questions or concerns. I discussed the patient's pertinent medical information with Dr. Monsalve. He agrees with the plan of care as implemented. Status: Acute
[2016-08-14] MEDS: HYDROmorphone 2 MG/ML 1 ML SYRINGE IVP PRN ×4 (00:34→13:33)
[2016-08-14] MEDS: ONDANSETRON 4 MG/2 ML VIAL IVP PRN ×2 (00:36→09:35)
[2016-08-14] MEDS: SODIUM CHLORIDE 0.9% 1,000 ML IV SCH ×3 (01:17→08:28)
[2016-08-14] MEDS: DIAZEPAM 5 MG/ML 2 ML SYRINGE IVP PRN (04:56)
[2016-08-14] MEDS ORDERED: LEVOTHYROXINE 50 MCG TAB PO SCH (06:30)
[2016-08-14 06:58] LABS: Glucose,Whole Blood 145 mg/dL (75-99)
[2016-08-14 07:46] LABS: Anion Gap 15 mmol/L; Blood Urea Nitrogen 16 mg/dL (7-17); Calcium 8.7 mg/dL (8.4-10.2); Carbon Dioxide 22 mmol/L (22-30); Chloride 107 mmol/L (98-107); Glucose 145 mg/dL (74-99); Non-African American GFR(MDRD) >60 (>60 ml/min/1.73 sqM); Potassium 3.8 mmol/L (3.5-5.1); Sodium 144 mmol/L (137-145)
[2016-08-14 07:56] LABS: Basophils % (A) 0 %; CH 28.8; CHCM 32.5; Eosinophils % (A) 0 %; HCT 36.2 % (34.0-46.0); HGB 11.6 gm/dL (11.4-16.0); Luc # (Auto) 0.14; Luc % (Auto) 1; Lymphocytes # (A) 1.7 k/uL (1.0-4.8); Lymphocytes % (A) 10 %; MCH 28.4 pg (25.0-35.0); MCHC 31.9 g/dL (31.0-37.0); MCV 88.9 fL (80.0-100.0); Mean Platelet Volume 7.1; Monocytes # (A) 0.5 k/uL (0-1.0); Monocytes % (A) 3 %; Neutrophils # (A) 14.4 k/uL (1.3-7.7); Neutrophils % (A) 86 %; RBC 4.07 m/uL (3.80-5.40); WBC 16.7 k/uL (3.8-10.6); WBC (Perox) 18.69
[2016-08-14] MEDS: MORPHINE SULFATE ER 30 MG TABLET PO SCH (08:11)
[2016-08-14] MEDS: SERTRALINE 100 MG TAB PO SCH (08:35)
[2016-08-14] MEDS: OXYBUTYNIN CHLORIDE 5 MG TAB PO SCH (08:35)
[2016-08-14] MEDS: tiZANidine 4 MG TAB PO SCH ×2 (08:36→12:20)
[2016-08-14] MEDS: TOPIRAMATE 100 MG TAB PO SCH (08:38)
[2016-08-14 08:39] LABS: Manual Review Performed
[2016-08-14] MEDS: amLODIPine 10 MG TAB PO SCH (08:39)
[2016-08-14] MEDS: ATORVASTATIN 10 MG TAB PO SCH (08:39)
[2016-08-14] MEDS: FAMOTIDINE 20 MG TAB PO SCH (08:40)
[2016-08-14] MEDS: HEPARIN SODIUM,PORCINE 5,000 UNIT/ML 1 ML VIAL SQ SCH (08:40)
[2016-08-14] MEDS: CLOPIDOGREL 75 MG TAB PO SCH (08:40)
[2016-08-14] MEDS: LISINOPRIL 10 MG TAB PO SCH (08:41)
[2016-08-14] MEDS: MECLIZINE 25 MG TAB PO SCH (08:41)
[2016-08-14] MEDS: MONTELUKAST 10 MG TAB PO SCH (08:42)
[2016-08-14] MEDS: INSULIN LISPRO (humaLOG) 300 UNIT/3 ML VIAL SQ SCH ×2 (08:44→13:31)
[2016-08-14] MEDS: oxyCODONE-APAP 10-325MG 1 EACH TAB PO PRN ×2 (12:18→16:34)
[2016-08-14 12:31] LABS: Glucose,Whole Blood 139 mg/dL (75-99)
[2016-08-14 13:49] VITALS: BP 176/95; PULSE 48; TEMP 97.4
--- NOTE | 2016-08-14 16:19 | P.CON ---
Psychiatric Consult - . Consult:: 08/14/16 16:03 Psychiatric consultation notes. Mrs. Uriarte, a 36-year-old white female was seen on psychiatric consultation, at the time discussion with the RN indicated that patient was already discharged by Dr. Soto, all the same been to see the patient. Her medical history indicates multiple sclerosis, asthma, fibromyalgia , GERD, history of seizure disorder, optic neuritis, anxiety and depression. Apparently patient had a an episode of significant anxiety following IV steroids and patient came to the emergency room and following evaluation admitted. When seen patient was fairly alert and moderately cooperative in giving detailed information. Patient had 2 prior inpatient admission to psychiatric units, 1 when she was 18 years old when she was admitted at this facility. The second time admitted that [facility] about 8 years ago following the of her only child. It is not clear whether she was diagnosed with multiple sclerosis at that time or not. All the same her multiple sclerosis symptoms started happening around the same time. Reports having periodic exacerbation of her MS and during the last episode she had the intravenous Solu-Medrol. Patient became extremely anxious having rapid heartbeat, difficulty in breathing and agitation. Though she was treated by psychiatrist for her anxiety and depression in the past for the past few years she has been getting her psychotropic medication from her family physician. 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 She has been depressed but never had ongoing counseling though for a period of time they had marriage counseling, and she feels that it ends up for her being responsible for all the problems. Reports having difficulty in sleeping. Though depressed, denies having had suicidal thoughts and according to her the current psychotropic medications have been beneficial. However she has insomnia, episodes of anxiety and depression but without suicidal thoughts. She seems to be somewhat resistant to be under psychiatric care, which should include counseling also. Mental status examination. Patient is somewhat obese built and was sleeping when I first entered into room , when patient acknowledged that she has difficulty sleeping at night and hence dozed off. Her attention and concentration aroused and sustained. Did not show any psychomotor disturbance. Was able to give appropriate responses to inquiries made and her speech and thought processes appeared to be without any difficulties. Affect appropriate. Patient was not experiencing any significant anxiety or depression at percent though she knowledge that she often has them. Patient was alert and oriented to time place and person. Her memory functions and general information seems to be fairly intact. No evidence of being harmful to self or others. Assessment and recommendations. Patient is on multiple medications and no changes suggested at this time as well as psychotropic medications. All the same it would be beneficial for her to be under care of a psychiatrist in view of her multiple medical/psychiatric problems and stressors, which would include adjustment of her medication and ongoing counseling individually as well as as a family. I informed the patient regarding my recommendations and she seems to be receptive to them. Thank you for the referral.
--- NOTE | 2016-08-16 06:44 | DS ---
DATE OF ADMISSION: 08/10/2016 DATE OF DISCHARGE: 08/14/2016 FINAL DIAGNOSES: 1. Palpitation reaction to high-dose IV steroids, possible sinus tachycardia. 2. Increased WBC, possibly reactive secondary to steroids. 3. Low free T4, free T3, TSH possibly primary hypothyroidism. 4. Multiple sclerosis acute exacerbation. 5. Hypernatremia secondary to dehydration present on admission. 6. Decreased CO2. 7. Increased random blood sugar. 8. Increased calcium. 9. Hyperlipidemia. 10. Obesity with body mass index of 34.7. 11. History of asthma. 12. History of fibromyalgia. 13. History of gastroesophageal reflux disease. 14. Hypertension. 15. History of migraines. 16. History of seizure disorder. 17. History of cystitis. 18. History of Clostridium difficile colitis, ulcerative colitis. 19. History of cholecystectomy. 20. History of degenerative joint disease. 21. Anxiety, depression, not otherwise specified. 22. Remote history of nicotine dependence. 23. Chronic pain syndrome. 24. FULL CODE. DISCHARGE DISPOSITION: The patient will be discharged in a stable condition with guarded prognosis. HISTORY OF PRESENT ILLNESS: This at 36-year-old woman with a past medical history of multiple medical problems admitted with palpitation reaction to high-dose IV steroids. In the hospital, the patient also had multiple as mentioned earlier. The patient was treated symptomatically. The patient was admitted Continues to be monitored by Dr. Monsalve and Dr. Lisa Tripathi saw the patient from the point of view. Psychiatry consultation was also obtained. The patient improved significantly. On exam, vitals are stable. CARDIOVASCULAR SYSTEM: S1, S2, muffled. ABDOMEN: Soft. NERVOUS SYSTEM: No focal deficits. DISCHARGE ADVICE: 1. Diet is cardiac. 2. Activity limited until followup. 3. Follow up with Dr. Quinones in 2to 3 days. 4. Follow up with Dr. Tripathi and Dr. Monsalve as recommended. Medications are: 1. Ocella 1 tablet p.o. daily. 2. Albuterol 2 puffs q.i.d. p.r.n. 3. Lipitor 10 mg p.o. daily. 4. Plavix 75 mg p.o. daily. 5. Adderall 20 mg p.o. b.i.d. 6. Bentyl 20 mg q.i.d. p.r.n. 7. Tecfidera 240 mg p.o. b.i.d. 8. Drisdol 50,000 p.o. Friday. 9. Pepcid 20 mg p.o. b.i.d. 10. Combivent 1 puff q.i.d. p.r.n. 11. Synthroid 50 mcg p.o. daily. 12. Prinivil 10 mg daily. 13. Antivert 25 mg p.o. b.i.d. 14. Singulair 10 mg p.o. daily. 15. Morphine sulfate ER 60 mg p.o. b.i.d. 16. Zofran 4 mg q.8 p.r.n. 17. Ditropan 5 mg p.o. t.i.d. 18. Elmiron 100 mg p.o. t.i.d. 19. Imitrex 200 mg daily p.r.n. 20. Zoloft 100 mg p.o. b.i.d. 21. Topamax 200 mg p.o. b.i.d. 22. Norvasc 10 mg p.o. daily. 23. Catapres TTS 1 patch units q.7 days. 24. Percocet 10 mg q.4 p.r.n. 25. Zanaflex 8 mg p.o. q.i.d. Once again, the patient will be discharged in stable condition with guarded prognosis. MTDD
[2016-08-16 12:15] LABS: Comprehensive Drug Screen Ur SeeBelow; Creatinine, Random Urine 126 mg/dL
== END 2016-08-14 16:41 | disposition home or self-care (01) ==
LOC: EC 16:53 → 6SEL 20:41 → INTOOBSV 20:41 → 3SUR 08-11 18:21 → 6PED 08-14 09:48
PROVIDERS: ADMIT Internal Medicine; ATTEND Internal Medicine
DX: R00.2 Palpitations (principal); T38.0X5A Adverse effect of glucocorticoids and synthetic analogues, initial encounter; G35 Multiple sclerosis; E87.0 Hyperosmolality and hypernatremia; E86.0 Dehydration; E78.5 Hyperlipidemia, unspecified; E66.9 Obesity, unspecified; Z68.34 Body mass index [BMI] 34.0-34.9, adult; J45.909 Unspecified asthma, uncomplicated; M79.7 Fibromyalgia; K21.9 Gastro-esophageal reflux disease without esophagitis; I10 Essential (primary) hypertension; G43.909 Migraine, unspecified, not intractable, without status migrainosus; G40.909 Epilepsy, unspecified, not intractable, without status epilepticus; E03.9 Hypothyroidism, unspecified; F17.200 Nicotine dependence, unspecified, uncomplicated; M21.372 Foot drop, left foot; N30.10 Interstitial cystitis (chronic) without hematuria; K51.90 Ulcerative colitis, unspecified, without complications; H46.9 Unspecified optic neuritis; E55.9 Vitamin D deficiency, unspecified; F41.9 Anxiety disorder, unspecified; F32.9 Major depressive disorder, single episode, unspecified; M19.90 Unspecified osteoarthritis, unspecified site; G89.4 Chronic pain syndrome; Z79.899 Other long term (current) drug therapy; Z88.5 Allergy status to narcotic agent; Z88.0 Allergy status to penicillin; Z88.8 Allergy status to other drugs, medicaments and biological substances; Z88.6 Allergy status to analgesic agent; Z88.1 Allergy status to other antibiotic agents; Z91.040 Latex allergy status; Z82.49 Family history of ischemic heart disease and other diseases of the circulatory system; Y92.009 Unspecified place in unspecified non-institutional (private) residence as the place of occurrence of the external cause
CPT/HCPCS: 96375 ×6; 96376 ×5; 96365 ×2; 99285 ×2; 36415; 93005 ×2; 97161; 85379; 84439 ×2; 84481; 80061 ×2; 80053; 80048 ×3; 84443 ×2; 83036; 82550 ×2; 82553 ×2; 83735; 84484 ×2; 85025 ×4; 85610; 85730; 81001; 83090; 80307; 71020; 93880; 70553; G0378 ×6; G0483; J2060 ×4; J2270; J1170 ×7; J1644 ×4; J3360 ×4; J2405 ×4; J2930 ×4; J3475; A9577; 80377; 96361; 96366; 96367; 96372

== ENCOUNTER 2016-08-15 04:56 | Inpatient (IN) | payer MEDICARE, OTHER ==
--- NOTE | 2016-08-15 05:15 | ED ---
General Adult HPI - General Chief complaint: Seizure Stated complaint: Seizure Time Seen by Provider: 08/15/16 05:11 Source: patient, EMS, RN notes reviewed, old records reviewed Mode of arrival: EMS Limitations: no limitations - History of Present Illness Initial comments: This is a 36-year-old female ER for evaluation. This patient presents here for evaluation of seizure. Patient had 2 seizures and a witnessed seizure by EMS making the 3 seizures prior to arrival. Patient has history of MS, history of seizures related to MS. EMS did give antiepileptics, patient's seizure did resolve but she is complaining of profound body weakness and body pain in general. Patient denies significant headaches at this time. She was recently admitted to the hospital for a prolonged period regarding MS exacerbation. Patient states she has not been doing too well at home. - Related Data Home Medications Medication Instructions Recorded Confirmed Albuterol Inhaler [Ventolin Hfa 2 puff INHALATION RT-QID PRN 12/09/13 08/11/16 Inhaler] Famotidine [Pepcid] 20 mg PO BID 12/09/13 08/11/16 Ipratropium/Albuterol Sulfate 1 puff INHALATION RT-QID PRN 12/09/13 08/11/16 [Combivent Respimat Inhaler] Montelukast [Singulair] 10 mg PO DAILY 12/09/13 08/11/16 Topiramate [Topamax] 200 mg PO BID 12/09/13 08/11/16 Dimethyl Fumarate [Tecfidera] 240 mg PO BID 07/15/14 08/11/16 Ocella 1 tab PO DAILY 04/13/15 08/11/16 Ondansetron Odt [Zofran ODT] 4 mg PO Q8HR PRN 04/13/15 08/11/16 Ergocalciferol [Vitamin D2 50,000 unit PO MO 12/24/15 08/11/16 (DRISDOL)] Meclizine [Antivert] 25 mg PO BID 12/24/15 08/11/16 Sertraline [Zoloft] 100 mg PO BID 12/24/15 08/11/16 Lisinopril [Prinivil] 10 mg PO DAILY 01/01/16 08/11/16 SUMAtriptan SUCCINATE [Imitrex] 200 mg PO DAILY PRN 01/01/16 08/11/16 Pentosan Polysulfate Sodium 100 mg PO TID 02/07/16 08/11/16 [Elmiron] Dicyclomine [Bentyl] 20 mg PO QID PRN 08/09/16 08/11/16 Morphine Sulfate [Morphine Sulfate 60 mg PO BID 08/09/16 08/11/16 ER] oxyCODONE-APAP 10-325MG [Percocet 1 tab PO Q4H 08/09/16 08/11/16 10-325 mg] tiZANidine [Zanaflex] 8 mg PO QID 08/09/16 08/11/16 Dextroamphetamine/Amphetamine 20 mg PO BID 08/11/16 08/11/16 [Adderall] Previous Rx's Medication Instructions Recorded Oxybutynin Chloride [Ditropan] 5 mg PO TID #45 tab 12/24/15 Atorvastatin [Lipitor] 10 mg PO DAILY #30 tab 08/14/16 Clopidogrel [Plavix] 75 mg PO DAILY #30 tab 08/14/16 Levothyroxine Sodium [Synthroid] 50 mcg PO DAILY@0630 #30 tab 08/14/16 amLODIPine [Norvasc] 10 mg PO DAILY #30 tab 08/14/16 cloNIDine 0.3 MG/24HR PATCH 1 patch TRANSDERM Q7D #4 patch 08/14/16 [Catapres-TTS] Allergies Allergy/AdvReac Type Severity Reaction Status Date / Time amoxicillin [Amoxicillin] Allergy Severe Anaphylaxis, Verified 08/11/16 09:16 seizures amoxicillin trihydrate Allergy Severe seizures Verified 08/11/16 09:16 [From Augmentin] ciprofloxacin [From Cipro] Allergy Severe Rash/Hives, Verified 08/11/16 09:16 seizures codeine phosphate Allergy Unknown Rash/Hives Verified 08/11/16 09:16 [From Tylenol-Codeine #3] ibuprofen [From Motrin] Allergy Unknown Rash/Hives,Lips Verified 08/11/16 09:16 swell ketorolac tromethamine Allergy Unknown Rash/Hives Verified 08/11/16 09:16 [From Toradol] cefuroxime axetil Allergy Rash/Hives Verified 08/11/16 09:16 [From Ceftin] latex Allergy Rash/Hives Verified 08/11/16 09:16 NSAIDS (Non-Steroidal Allergy Rash/Hives,Lips Verified 08/11/16 09:16 Anti-Inflamma doe Review of Systems ROS Statement: Those systems with pertinent positive or pertinent negative responses have been documented in the HPI. ROS Other: All systems not noted in ROS Statement are negative. Past Medical History Past Medical History: Asthma, Fibromyalgia, GERD/Reflux, Hypertension, Neurologic Disorder, Renal Disease, Seizure Disorder Additional Past Medical History / Comment(s): Multiple Sclerosis; migraines; DJD ,. interstitial cystitis. PCOS. vit D deficiency History of Any Multi-Drug Resistant Organisms: C-DIFF Date of last positivie culture/infection: 12/17/2014 MDRO Source:: stool Past Surgical History: Cholecystectomy, Orthopedic Surgery Additional Past Surgical History / Comment(s): Lt shoulder rotator cuff repair 06/06/14 @ [facility].- pt has since re-torn, Arthroscopic left knee 2000 & 2002. ARTHROSCOPY LT SHOULDER. Past Anesthesia/Blood Transfusion Reactions: No Reported Reaction Additional Past Anesthesia/Blood Transfusion Reaction / Comment(s): Pt has never recieved blood. Past Psychological History: Anxiety, Depression Additional Psychological History / Comment(s): Pt lives with her and their daughter. She is independent. She has MS and when she has a flare up she will use a walker or wheelchair. She drives a car. Smoking Status: Former smoker Past Alcohol Use History: None Reported Additional Past Alcohol Use History / Comment(s): STARTED SMOKING AGE 17 now smoking about 1/4 ppd. Patient denies any medical marijuana, marijuana, street drug use. She denies any alcohol use or abuse. Patient is and lives with her and one child. There is a dog in the home. No recent travel. Patient is on disability. Past Drug Use History: None Reported - Past Family History Mother Family Medical History: No Reported History Additional Family Medical History / Comment(s): mother is healthy Father Family Medical History: Hypertension General Exam Limitations: no limitations General appearance: alert, in no apparent distress, anxious, in distress, obese Head exam: Present: atraumatic, normocephalic, normal inspection Eye exam: Present: normal appearance, PERRL, EOMI. Absent: scleral icterus, conjunctival injection, periorbital swelling ENT exam: Present: normal exam, mucous membranes moist Neck exam: Present: normal inspection. Absent: tenderness, meningismus, lymphadenopathy Respiratory exam: Present: normal lung sounds bilaterally. Absent: respiratory distress, wheezes, rales, rhonchi, stridor Cardiovascular Exam: Present: regular rate, normal rhythm, normal heart sounds. Absent: systolic murmur, diastolic murmur, rubs, gallop, clicks GI/Abdominal exam: Present: soft, normal bowel sounds. Absent: distended, tenderness, guarding, rebound, rigid Extremities exam: Present: normal inspection, full ROM, normal capillary refill. Absent: tenderness, pedal edema, joint swelling, calf tenderness Back exam: Present: normal inspection Neurological exam: Present: alert, oriented X3, CN II-XII intact Psychiatric exam: Present: normal affect, normal mood Skin exam: Present: warm, dry, intact, normal color. Absent: rash Course Vital Signs 08/15/16 08/15/16 05:03 06:22 Temperature 97.2 F L Pulse Rate 64 77 Respiratory 16 18 Rate Blood Pressure 163/93 175/86 O2 Sat by Pulse 96 99 Oximetry - Reevaluation(s) Reevaluation #1: 08/15/16 06:36 Patient stating she still not feeling well, can't move any of her extremities. EKG Findings - EKG Comments: EKG Findings:: EKG shows sinus bradycardia rate of 57, NH 124, QRS 82, QTC 418 Medical Decision Making - Medical Decision Making 36 female year for evaluation, probable MS exacerbation compounded by seizure history, history of intractable seizures, patient is on Topamax which she is taking for seizures, patient complains of just generalized weakness, fatigue. Similar to prior MS exacerbations. - Lab Data Result diagrams: 08/15/16 05:40 08/15/16 05:40 Lab Results 08/15/16 08/15/16 Range/Units 05:40 05:40 WBC 28.0 H* (3.8-10.6) k/uL RBC 4.40 (3.80-5.40) m/uL Hgb 12.7 (11.4-16.0) gm/dL Hct 38.0 (34.0-46.0) % MCV 86.3 (80.0-100.0) fL MCH 28.9 (25.0-35.0) pg MCHC 33.5 (31.0-37.0) g/dL RDW 13.4 (11.5-15.5) % Plt Count 264 (150-450) k/uL Neutrophils % 80 % Lymphocytes % 11 % Monocytes % 7 % Eosinophils % 0 % Basophils % 0 % Neutrophils # 22.5 H (1.3-7.7) k/uL Lymphocytes # 3.2 (1.0-4.8) k/uL Monocytes # 1.9 H (0-1.0) k/uL Eosinophils # 0.0 (0-0.7) k/uL Basophils # 0.1 (0-0.2) k/uL Sodium 144 (137-145) mmol/L Potassium 3.4 L (3.5-5.1) mmol/L Chloride 104 (98-107) mmol/L Carbon Dioxide 24 (22-30) mmol/L Anion Gap 16 mmol/L BUN 17 (7-17) mg/dL Creatinine 0.71 (0.52-1.04) mg/dL Est GFR (MDRD) Af Amer >60 (>60 ml/min/1.73 sqM) Est GFR (MDRD) Non-Af >60 (>60 ml/min/1.73 sqM) Glucose 85 (74-99) mg/dL Calcium 9.1 (8.4-10.2) mg/dL Total Bilirubin 0.7 (0.2-1.3) mg/dL AST 137 H (14-36) U/L ALT 174 H (9-52) U/L Alkaline Phosphatase 41 (38-126) U/L Total Protein 6.2 L (6.3-8.2) g/dL Albumin 3.8 (3.5-5.0) g/dL Salicylates <1.0 mg/dL Acetaminophen <10.0 ug/mL Serum Alcohol <10 mg/dL - Radiology Data Radiology results: report reviewed (CT brain is negative for acute disease), image reviewed Disposition Clinical Impression: Intractable seizure disorder, Leukocytosis, Weakness Disposition: ADMITTED IP TO THIS [facility] Condition: Fair Referrals: Neno Quinones MD [Primary Care Provider] - 1-2 days
[2016-08-15] MEDS ORDERED: SODIUM CHLORIDE 0.9% 1,000 ML IV STA (05:32)
[2016-08-15] MEDS ORDERED: LORazepam 2 MG/ML SYRINGE IV STA (05:33)
[2016-08-15 05:56] LABS: Basophils # (A) 0.1 k/uL (0-0.2); Basophils % (A) 0 %; CH 29.4; CHCM 34.2; Eosinophils % (A) 0 %; HDW 2.61; HGB 12.7 gm/dL (11.4-16.0); Luc # (Auto) 0.36; Luc % (Auto) 1; Lymphocytes # (A) 3.2 k/uL (1.0-4.8); Lymphocytes % (A) 11 %; MCH 28.9 pg (25.0-35.0); MCHC 33.5 g/dL (31.0-37.0); MCV 86.3 fL (80.0-100.0); Mean Platelet Volume 7.4; Monocytes # (A) 1.9 k/uL (0-1.0); Monocytes % (A) 7 %; Neutrophils # (A) 22.5 k/uL (1.3-7.7); Neutrophils % (A) 80 %; RDW 13.4 % (11.5-15.5); WBC (Perox) 28.78
[2016-08-15 06:02] LABS: ALT 174 U/L (9-52); AST 137 U/L (14-36); Acetaminophen <10.0 ug/mL; Alcohol <10 mg/dL; Alkaline Phosphatase 41 U/L (38-126); Anion Gap 16 mmol/L; Blood Urea Nitrogen 17 mg/dL (7-17); Calcium 9.1 mg/dL (8.4-10.2); Carbon Dioxide 24 mmol/L (22-30); Chloride 104 mmol/L (98-107); Glucose 85 mg/dL (74-99); Non-African American GFR(MDRD) >60 (>60 ml/min/1.73 sqM); Potassium 3.4 mmol/L (3.5-5.1); Salicylate <1.0 mg/dL; Sodium 144 mmol/L (137-145); Total Bilirubin 0.7 mg/dL (0.2-1.3); Total Protein 6.2 g/dL (6.3-8.2)
--- NOTE | 2016-08-15 06:18 | CT ---
EXAMINATION TYPE: CT brain wo con DATE OF EXAM: 08/15/2016 6:03 AM COMPARISON: 06/01/2015 HISTORY: seizure CT DLP: 1126.50 mGycm Automated exposure control for dose reduction was used. FINDINGS: There is no acute intracranial hemorrhage, mass effect, or midline shift identified. The cortical sul ci are slightly more prominent for patient's age. Ventricles appear grossly unremarkable. There is evidence of low density area involving the right posterior parietal lobe of brain in the axi al image 33 and is suggestive of old infarction with encephalomalacia changes.. The globes are intact and the visualized sinuses are clear. IMPRESSION: No acute intracranial hemorrhage, mass effect, or midline shift is seen. There is no significant interval change. 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
[2016-08-15] MEDS ORDERED: POTASSIUM BICARB-CITRIC ACID 25 MEQ TABLET.EFF PO STA (06:24)
[2016-08-15] MEDS ORDERED: SODIUM CHLORIDE 0.9% 1,000 ML IV ONE (06:34)
[2016-08-15] MEDS ORDERED: levETIRAcetam IV 1,000 MG in SALINE 1 100ML.BAG IVPB STA (06:39)
[2016-08-15] MEDS ORDERED: ENOXAPARIN 40 MG/0.4 ML SYRINGE SQ SCH (09:00)
[2016-08-15 12:01] LABS: Appearance,Urine Clear (Clear); Bacteria,Urine Rare /hpf; Bilirubin,Urine Negative (Negative); Glucose,Urine (UA) Negative (Negative); Ketones,Urine Negative (Negative); Leukocyte Esterase,Urine Negative (Negative); Nitrite,Urine Negative (Negative); PH, Urine 7.5 (5.0-8.0); Particle Count 1106; Protein,Urine 1+ (Negative); RBC,Urine 1 /hpf (0-5); Specific Gravity,Urine 1.006 (1.001-1.035); Squamous Epithelial Cell,Urine 1 /hpf (0-4); UA Billing (MACRO vs. MICRO) MICRO; Urobilinogen,Urine <2.0 mg/dL (<2.0); WBC,Urine 2 /hpf (0-5)
[2016-08-15 15:31] VITALS: BP 167/97; PULSE 70; RESP 16; TEMP 97.4
[2016-08-15] MEDS ORDERED: ALBUTEROL INHALER 60 PUFF/8 GM INHALER INHALATION PRN (16:23)
[2016-08-15] MEDS ORDERED: DICYCLOMINE 20 MG TAB PO PRN (16:23)
[2016-08-15] MEDS ORDERED: ONDANSETRON ODT 4 MG TAB PO PRN (16:23)
[2016-08-15] MEDS ORDERED: SUMATRIPTAN SUCCINATE PO PRN (16:23)
[2016-08-15] MEDS ORDERED: IPRATROPIUM-ALBUTEROL 3 ML NEB INHALATION PRN (16:23)
[2016-08-15] MEDS ORDERED: hydrALAZINE HCL 20 MG/ML 1 ML VIAL IVP PRN (16:25)
[2016-08-15] MEDS ORDERED: cloNIDine HCL 0.1 MG TAB PO PRN (16:25)
[2016-08-15] MEDS ORDERED: oxyCODONE-APAP 10-325MG 1 EACH TAB PO PRN (16:30)
[2016-08-15] MEDS ORDERED: LISINOPRIL 10 MG TAB PO SCH (16:30)
[2016-08-15] MEDS ORDERED: amLODIPine 10 MG TAB PO SCH (16:30)
--- NOTE | 2016-08-15 17:00 | P.CNNES ---
History of Present Illness Consult date: 08/15/16 Reason for Consult: Patient with seizures and history of Multiple Sclerosis. History of Present Illness: This patient is a 36-year-old right-handed white female who was admitted brought to the emergency room today for evaluation of seizures. Patient was just discharged home yesterday from [facility] after being treated for MS exacerbation. She has a rather complex past medical history with multiple complex medical issues including multiple sclerosis, seizure disorder, and generalized weakness. Patient was apparently at home and had 2 witnessed seizures. EMS was called to the home and she had a third seizure in route. She apparently has a history of seizure disorder and has been using Topamax as primary treatment for seizure prophylaxis. Patient is on multiple other medications including specific treatment of her multiple sclerosis. She is currently on oral treatment with Tecfidera. She apparently has been on this treatment and follows with her regular neurologist in [place]. Her recent treatment of MS with steroids was discontinued and she developed some severe ALLERGIC reaction with agitation and tachycardia. She was just discharged home yesterday. She has had multiple neuro imaging studies of the brain. She also recently underwent MRI of the pituitary gland on 08/13/2016 which was normal. Patient states she has been seizure-free and is only remembering her last seizures occurring over one year ago. Due to her multiple of symptoms and recurrent seizure she is now been admitted for further evaluation. Patient is awake and alert and is able to answer all questions. She describes no further seizure episodes since admission to the hospital. She has been restarted on all of her indications. We will obtain a routine EEG for further evaluation. She did undergo a computed tomography scan of the brain which came back negative for any acute changes. If the patient continues to have further seizures despite being started back on Topamax we will consider alternative anticonvulsant therapy. Her overall prognosis at this time remains very guarded. Review of Systems Constitutional: Denies chills, Denies fever Eyes: denies blurred vision, denies pain Ears, nose, mouth and throat: Denies headache, Denies sore throat Cardiovascular: Denies chest pain, Denies shortness of breath Respiratory: Denies cough Gastrointestinal: Denies abdominal pain, Denies diarrhea, Denies nausea, Denies vomiting Genitourinary: Denies dysuria, Denies hematuria Musculoskeletal: Denies myalgias Integumentary: Denies pruritus, Denies rash Neurological: Reports change in mentation, Reports convulsions, Reports lack of coordination, Reports syncope, Reports tingling, Reports transient paralysis, Denies numbness, Denies weakness Psychiatric: Reports disorientation, Denies anxiety, Denies depression Endocrine: Denies fatigue, Denies weight change Past Medical History Past Medical History: Asthma, Fibromyalgia, GERD/Reflux, Hypertension, Musculoskeletal Disorder, Neurologic Disorder, Renal Disease, Seizure Disorder Additional Past Medical History / Comment(s): PT recently admitted to [facility] 08/10 with MS flare up-tachcardia and agitation-?r/t steroids, Other HX: Multiple Sclerosis, migraines, DJD, interstitial cystitis, UTI, PCOS, vit D deficiency, bilateral optic neuritis with visual problems, UTI, chronic pain, numbness/tingling R side of body. History of Any Multi-Drug Resistant Organisms: C-DIFF Date of last positivie culture/infection: 12/17/2014 MDRO Source:: stool Past Surgical History: Cholecystectomy, Orthopedic Surgery Additional Past Surgical History / Comment(s): Lt shoulder rotator cuff repair 06/06/[address] [facility] pt has since re-torn, Arthroscopic left knee 2000 & 2002. ARTHROSCOPY LT SHOULDER. Past Anesthesia/Blood Transfusion Reactions: No Reported Reaction Additional Past Anesthesia/Blood Transfusion Reaction / Comment(s): Pt has never recieved blood. Past Psychological History: Anxiety, Depression Additional Psychological History / Comment(s): Pt lives with her and their daughter. She is independent. She has MS and when she has a flare up she will use a walker or wheelchair. She drives a car. Smoking Status: Former smoker Past Alcohol Use History: None Reported Additional Past Alcohol Use History / Comment(s): STARTED SMOKING AGE 17 and quit in 2016 but is using vapor cigarette. Patient denies any medical marijuana , marijuana, street drug use. She denies any alcohol use or abuse. Patient is and lives with her and one child. There is a dog in the home. No recent travel. Patient is on disability. Past Drug Use History: None Reported - Past Family History Mother Family Medical History: No Reported History Additional Family Medical History / Comment(s): mother is healthy Father Family Medical History: Hypertension Medications and Allergies Home Medications Medication Instructions Recorded Confirmed Type Albuterol Inhaler [Ventolin Hfa 2 puff INHALATION RT-QID PRN 12/09/13 08/15/16 History Inhaler] Famotidine [Pepcid] 20 mg PO BID 12/09/13 08/15/16 History Ipratropium/Albuterol Sulfate 1 puff INHALATION RT-QID PRN 12/09/13 08/15/16 History [Combivent Respimat Inhaler] Montelukast [Singulair] 10 mg PO DAILY 12/09/13 08/15/16 History Topiramate [Topamax] 200 mg PO BID 12/09/13 08/15/16 History Dimethyl Fumarate [Tecfidera] 240 mg PO BID 07/15/14 08/15/16 History Ocella 1 tab PO DAILY 04/13/15 08/15/16 History Ondansetron Odt [Zofran ODT] 4 mg PO Q8HR PRN 04/13/15 08/15/16 History Ergocalciferol [Vitamin D2 50,000 unit PO MO 12/24/15 08/15/16 History (DRISDOL)] Meclizine [Antivert] 25 mg PO BID 12/24/15 08/15/16 History Sertraline [Zoloft] 100 mg PO BID 12/24/15 08/15/16 History Lisinopril [Prinivil] 10 mg PO DAILY 01/01/16 08/15/16 History SUMAtriptan SUCCINATE [Imitrex] 200 mg PO DAILY PRN 01/01/16 08/15/16 History Pentosan Polysulfate Sodium 100 mg PO TID 02/07/16 08/15/16 History [Elmiron] Dicyclomine [Bentyl] 20 mg PO QID PRN 08/09/16 08/15/16 History Morphine Sulfate [Morphine Sulfate 60 mg PO BID 08/09/16 08/15/16 History ER] oxyCODONE-APAP 10-325MG [Percocet 1 tab PO Q4H 08/09/16 08/15/16 History 10-325 mg] tiZANidine [Zanaflex] 8 mg PO QID 08/09/16 08/15/16 History Dextroamphetamine/Amphetamine 20 mg PO BID 08/11/16 08/15/16 History [Adderall] Allergies Allergy/AdvReac Type Severity Reaction Status Date / Time amoxicillin [Amoxicillin] Allergy Severe Anaphylaxis, Verified 08/11/16 09:16 seizures amoxicillin trihydrate Allergy Severe seizures Verified 08/11/16 09:16 [From Augmentin] ciprofloxacin [From Cipro] Allergy Severe Rash/Hives, Verified 08/11/16 09:16 seizures codeine phosphate Allergy Unknown Rash/Hives Verified 08/11/16 09:16 [From Tylenol-Codeine #3] ibuprofen [From Motrin] Allergy Unknown Rash/Hives,Lips Verified 08/11/16 09:16 swell ketorolac tromethamine Allergy Unknown Rash/Hives Verified 08/11/16 09:16 [From Toradol] cefuroxime axetil Allergy Rash/Hives Verified 08/11/16 09:16 [From Ceftin] latex Allergy Rash/Hives Verified 08/11/16 09:16 NSAIDS (Non-Steroidal Allergy Rash/Hives,Lips Verified 08/11/16 09:16 Anti-Inflamma swell Physical Examination - Vital Signs Vital Signs: Vital Signs Temp Pulse Pulse Resp BP BP Pulse Ox 08/15/16 15:00 97.4 F L 70 16 167/97 97 08/15/16 09:11 96.0 F L 59 L 20 163/96 99 08/15/16 08:14 58 L 18 165/98 99 Intake and Output 08/15/16 08/15/16 08/15/16 06:59 14:59 22:59 Other: Voiding Method Bedpan Bedpan # Voids 2 - Constitutional General appearance: average body habitus, cooperative - EENT EENT: PERRL, mucous membranes moist - Respiratory Respiratory: lungs clear, normal breath sounds - Cardiovascular Cardiovascular: regular rate, normal S1, normal S2 Extremities: no peripheral edema bilaterally - Gastrointestinal Gastrointestinal: normoactive bowel sounds - Integumentary Integumentary: normal - Neurologic Cranial nerve examination: PERRL, EOMI, VFF, V1/V2/V3 grossly intact, face symmetric, tongue midline, intact gag reflex, intact corneal reflex, normal palatal elevation Speech examination: intact Sensorimotor examination: intact Detailed motor examination: other (Patient does not give full effort on muscle testing in both upper and lower extremities.) Motor examination - right side: 3/5: biceps, triceps, wrist flexion, wrist extension, winding inspector, hip flexors, knee extensors, dorsiflexion, toe extension (EHL) , plantarflexion Motor examination - left side: 3/5: biceps, triceps, wrist flexion, wrist extension, winding inspector, hip flexors, knee extensors, dorsiflexion, toe extension (EHL) , plantarflexion Detailed sensory examination: intact Reflexes: 1+: ankle, bicep, knee, tricep - Musculoskeletal Musculoskeletal: no pain - Psychiatric Psychiatric: mood/affect appropriate, cooperative Results - Laboratory Findings CBC and BMP: 08/15/16 05:40 08/15/16 05:40 Abnormal Lab Findings: Abnormal Labs 08/15/16 11:26 Urine Protein 1+ H Urine Bacteria Rare H Urine Opiates Screen Detected H Ur Oxycodone Screen Detected H Ur Amphetamines Screen Detected H U Benzodiazepines Scrn Detected H Assessment and Plan (1) Intractable seizure disorder Status: Acute Code(s): G40.919 - EPILEPSY, UNSP, INTRACTABLE, WITHOUT STATUS EPILEPTICUS (2) Weakness Status: Acute Code(s): R53.1 - WEAKNESS (3) Multiple sclerosis exacerbation Status: Acute Code(s): G35 - MULTIPLE SCLEROSIS (4) Medication reaction Status: Suspected Code(s): T88.7XXA - UNSP ADVERSE EFFECT OF DRUG OR MEDICAMENT, INIT ENCNTR Plan: This patient is 36-year-old female admitted with multiple breakthrough seizures today on admission through the ER. She was just discharged home yesterday after being treated for acute MS exacerbation. She had 2 seizures at home and was brought back today to the ER. She was subsequently sent for computed tomography scan of the brain which was negative for any acute changes. She was admitted to hospital for further management. Patient has been taking Topamax which she states has been for seizure prophylaxis. She states she has not had a seizure in over one year. Her history is very variable and is not a very good historian. She is currently being treated for MS and is on oral treatment. We have recommended routine EEG for further evaluation of possible seizure disorder. She may continue on Topamax at this time. Depending on EEG results a alternative her second anticonvulsant medication may be considered. Overall prognosis at this time remains very guarded. Time with Patient: Greater than 30
[2016-08-15] MEDS ORDERED: tiZANidine 4 MG TAB PO SCH (18:00)
--- NOTE | 2016-08-15 18:41 | HP ---
DATE OF ADMISSION: 08/15/2016 CHIEF COMPLAINT: Seizures. HISTORY OF PRESENT ILLNESS: This 36-year-old woman with a past medical history of multiple medical problems, including history of asthma, history of fibromyalgia, GERD, hypertension, history of renal disease, history of seizure disorder, history of MS flareup, history of cholecystectomy, C difficile, history of anxiety, depression, being followed by Dr. Quinones in the outpatient setting, was recently admitted to [facility] with complaints of palpitations, intolerance to outpatient IV steroids. Patient was treated symptomatically. Patient improved significantly. Patient also has possibly primary hypothyroidism. The patient also had a pituitary MRI during the previous admission which did not show any acute abnormality. The patient once monitored closely. Patient will be discharged home. At home the patient was found to have focal seizures with some secondary generalization, and at least 3 seizures were witnessed and the patient came to [facility], admitted for further evaluation and treatment. The patient has significant acute and chronic pain syndrome also. Currently the patient is post-ictal, slightly drowsy. Otherwise there is no history of any fever, rigor or chills, no history of headache, loss of consciousness. PAST MEDICAL HISTORY: 1. History of seizure disorder. 2. Recent MS exacerbation. 3. Asthma. 4. GERD. 5. History of hypertension. 6. History of DJD. 7. History of renal disease. 8. Seizure disorder. 9. Cholecystectomy. 10. History of C difficile. Home medications are: 1. Zanaflex 8 mg p.o. q.i.d. 2. Oxycodone 1 tablet q.4 p.r.n. 3. Catapres TTS one patch q.7 days. 4. Norvasc 10 mg p.o. daily. 5. Topamax 200 mg b.i.d. 6. Zoloft 100 mg b.i.d. 7. Imitrex 200 mg daily p.r.n. 8. Elmiron 100 mg p.o. t.i.d. 9. Ditropan 5 mg p.o. t.i.d. 10. Zofran 4 mg q.8 p.r.n. 11. Ocella 1 tablet p.o. daily. 12. Morphine sulfate ER 60 mg p.o. b.i.d. 13. Singulair 10 mg p.o. daily. 14. Antivert 25 mg p.o. b.i.d. 15. Prinivil 10 mg p.o. daily. 16. Synthroid 50 mcg p.o. daily. 17. Combivent 1 puff q.i.d. p.r.n. 18. Pepcid 20 mg p.o. b.i.d. 19. Drisdol 50,000 units Friday. 20. Tecfidera 240 mg p.o. b.i.d. 21. Bentyl 20 mg q.i.d. p.r.n. 22. Adderall 20 mg p.o. b.i.d. 23. Plavix 75 mg p.o. daily. 24. Lipitor 10 mg p.o. daily. 25. Ventolin HFA two puffs q.i.d. p.r.n. ALLERGIES: 1. AMOXICILLIN. 2. CIPROFLOXACIN. 3. CODEINE. 4. IBUPROFEN. 5. KETOROLAC. 6. CEFUROXIME. 7. LATEX. 8. NSAIDS. FAMILY HISTORY: No history of heart disease or strokes in the family. SOCIAL HISTORY: Previous history of smoking. Review of systems could not be taken; patient is still drowsy. PHYSICAL EXAMINATION: Pulse is 70, blood pressure 167/97, respiration 16, temperature 97.2, pulse ox 97% on 2 L. HEENT: Conjunctivae normal. Oral mucosa moist. NECK: No jugular venous distention. No carotid bruit. No lymph node enlargement. CARDIOVASCULAR SYSTEM: S1, S2 muffled. RESPIRATORY SYSTEM: Breath sounds diminished at the bases. Bilateral scattered rhonchi and crackles. ABDOMEN: Soft, non-tender. No mass palpable. LEGS: No edema. No swelling. NERVOUS SYSTEM: Cranial nerves grossly intact. Higher functions as mentioned earlier. Moves all 4 limbs. No focal motor deficit. LYMPHATICS: No lymph node palpable in neck, axilla or groin. SKIN: No ulcer, rash or bleeding. LABS: WBC 28. AST 137, ALT 174. Urine drug screen is positive for opiate oxycodone, amphetamines and benzodiazepines. ASSESSMENT: 1. Acute generalized tonic seizures, multiple, with breakthrough seizures. 2. History of recent multiple sclerosis, acute exacerbation. 3. Increased white count, possibly secondary to steroids. 4. Low free T4, free T3 recently with primary hypothyroidism. 5. Hyperlipidemia. 6. Obesity with a body mass index of 34.6. 7. History of asthma. 8. History of fibromyalgia. 9. History of gastroesophageal reflux disease. 10. Hypertension. 11. Migraine. 12. History of seizure disorder. 13. History of cystitis. 14. History of Clostridium difficile colitis. 15. Previous ulcerative colitis. 16. History of cholecystectomy. 17. History of degenerative joint disease. 18. Anxiety, depression not otherwise specified. 19. Remote history of nicotine dependence. 20. Chronic pain syndrome. 21. FULL CODE. RECOMMENDATIONS AND DISCUSSION: In this 36-year-old woman who presented with multiple complex medical issues, we will monitor the patient closely, continue the current medications, continue symptomatic treatment. Otherwise, at this time I would recommend neurology consultation and resume the home medications. The patient was started on Keppra. DVT prophylaxis. Guarded prognosis because of multiple complex medical issues. Further recommendations to follow. I also had a detailed discussion with the family members regarding the pain medication. Patient has acute on chronic pain syndrome. We will initiate baseline medications as well. EMIGDIO
[2016-08-15] MEDS ORDERED: SERTRALINE 100 MG TAB PO SCH (21:00)
[2016-08-15] MEDS ORDERED: NON-FORMULARY DRUG (Dextroamphetamine/Amphetamine [Adderall] 20 MG) PO SCH (21:00)
[2016-08-15] MEDS ORDERED: MORPHINE SULFATE ER 30 MG TABLET PO SCH (21:00)
[2016-08-15] MEDS ORDERED: NON-FORMULARY DRUG (Dimethyl Fumarate [Tecfidera] 240 MG) PO SCH (21:00)
[2016-08-15] MEDS ORDERED: MECLIZINE 25 MG TAB PO SCH (21:00)
[2016-08-15] MEDS ORDERED: FAMOTIDINE 20 MG TAB PO SCH (21:00)
[2016-08-15] MEDS ORDERED: TOPIRAMATE 100 MG TAB PO SCH (21:00)
[2016-08-15] MEDS ORDERED: MONTELUKAST 10 MG TAB PO SCH (21:00)
[2016-08-15] MEDS ORDERED: OXYBUTYNIN CHLORIDE 5 MG TAB PO SCH (22:00)
[2016-08-15] MEDS ORDERED: NON-FORMULARY DRUG (Pentosan Polysulfate Sodium [Elmiron] 100 MG) PO SCH (22:00)
[2016-08-16] MEDS ORDERED: LEVOTHYROXINE 50 MCG TAB PO SCH (06:30)
[2016-08-16] MEDS ORDERED: ATORVASTATIN 10 MG TAB PO SCH (09:00)
[2016-08-16] MEDS ORDERED: CLOPIDOGREL 75 MG TAB PO SCH (09:00)
[2016-08-16] MEDS ORDERED: OCELLA PO SCH (09:00)
--- NOTE | 2016-08-19 11:26 | DS ---
DATE OF ADMISSION: 08/15/2016 DATE OF DISCHARGE: 08/15/2016 FINAL DIAGNOSES: 1. Acute generalized tonic-clonic seizures. 2. Multiple orthopedic procedures. 3. History of recent multiple sclerosis acute exacerbations. 4. Increased WBC, possibly secondary to steroids. 5. Low free T3, FT4, and recently diagnosed with primary hypothyroidism. 6. Hyperlipidemia. 7. Obesity with borderline as mentioned earlier 34.6. 8. History of asthma. 9. History of fibromyalgia. 10. History of GERD. 11. Hypertension. 12. Migraines. 13. History of seizure disorder. 14. History of cystitis. 15. History of Clostridium difficile colitis. 16. History of previous ulcerative colitis. 17. History of cholecystectomy. 18. History of degenerative joint disease. 19. Anxiety, depression, not otherwise specified. 20. Remote history of nicotine dependence. 21. Chronic pain syndrome. 22. FULL CODE. RECOMMENDATIONS/DISCUSSION: The patient left the hospital AGAINST MEDICAL ADVICE apparently. HISTORY OF PRESENT ILLNESS: This 36-year-old woman with a past medical history of multiple medical problems including seizures and multiple other complex medical issues, the patient was seen by Dr. Davis. The patient left the hospital AGAINST MEDICAL ADVICE before full evaluation and treatment could be completed. Prognosis extremely guarded. Please refer to multiple documentations including staff notes for further details.
[2016-08-19] MEDS ORDERED: ERGOCALCIFEROL 50,000 UNIT CAP PO SCH (12:00)
[2016-08-20] MEDS ORDERED: cloNIDine 0.3 MG/24HR PATCH 1 PATCH PATCH TRANSDERM SCH (12:00)
== END 2016-08-15 18:08 | disposition left against medical advice (07) | DRG 101 ==
LOC: EC 04:56 → 4MS4W 06:34
PROVIDERS: ADMIT Internal Medicine; ATTEND Internal Medicine
DX: G40.919 Epilepsy, unspecified, intractable, without status epilepticus (principal); H46.9 Unspecified optic neuritis; E55.9 Vitamin D deficiency, unspecified; I10 Essential (primary) hypertension; G35 Multiple sclerosis; F32.9 Major depressive disorder, single episode, unspecified; E03.9 Hypothyroidism, unspecified; E28.2 Polycystic ovarian syndrome; E66.9 Obesity, unspecified; E78.5 Hyperlipidemia, unspecified; F41.9 Anxiety disorder, unspecified; G43.909 Migraine, unspecified, not intractable, without status migrainosus; G89.4 Chronic pain syndrome; J45.909 Unspecified asthma, uncomplicated; K21.9 Gastro-esophageal reflux disease without esophagitis; M19.90 Unspecified osteoarthritis, unspecified site; M79.7 Fibromyalgia; N30.10 Interstitial cystitis (chronic) without hematuria; D72.829 Elevated white blood cell count, unspecified; T38.0X5A Adverse effect of glucocorticoids and synthetic analogues, initial encounter; F17.200 Nicotine dependence, unspecified, uncomplicated; Z68.34 Body mass index [BMI] 34.0-34.9, adult; Z79.02 Long term (current) use of antithrombotics/antiplatelets; Z79.899 Other long term (current) drug therapy; Z88.1 Allergy status to other antibiotic agents; Z88.5 Allergy status to narcotic agent; Z88.8 Allergy status to other drugs, medicaments and biological substances; Y92.9 Unspecified place or not applicable
CPT/HCPCS: 36415; 70450; 70553; 80048; 80053; 80061; 80306; 80307; 80320; 80377; 81001; 83090; 83520; 84439; 84443; 84481; 85025; 93005; 96361; 96374; 99285

== ENCOUNTER 2016-10-09 13:57 | Emergency (ER) | payer MEDICARE, OTHER ==
[2016-10-09 14:43] VITALS: BP 152/84; PULSE 83; RESP 20; TEMP 98.4
--- NOTE | 2016-10-09 15:23 | ED ---
General Adult HPI - General Chief complaint: Extremity Injury, Lower Stated complaint: foot injury Time Seen by Provider: 10/09/16 15:07 Source: patient, RN notes reviewed Mode of arrival: wheelchair Limitations: no limitations - History of Present Illness Initial comments: This is a 36-year-old female presents with left foot pain 4 days. Patient states she has MS and was having some left leg numbness which caused her to fall as she got up to walk to the bathroom. Patient states the left leg numbness comes and goes and this is a normal symptom of her MS for her. Patient states she noticed some bruising and swelling to the left foot and complains of left ankle pain when she is walking. Patient denies any numbness/ weakness or tingling today. Patient has been ambulating but states this is painful. Patient denies any chance of being . Patient denies any recent fever, chills, shortness breath, chest pain, abdominal pain, nausea/ vomiting/diarrhea, back pain, hematuria, headache, or visual changes, or any other complaints. - Related Data Home Medications Medication Instructions Recorded Confirmed Albuterol Inhaler [Ventolin Hfa 2 puff INHALATION RT-QID PRN 12/09/13 10/09/16 Inhaler] Famotidine [Pepcid] 20 mg PO BID 12/09/13 10/09/16 Ipratropium/Albuterol Sulfate 1 puff INHALATION RT-QID PRN 12/09/13 10/09/16 [Combivent Respimat Inhaler] Montelukast [Singulair] 10 mg PO DAILY 12/09/13 10/09/16 Topiramate [Topamax] 200 mg PO BID 12/09/13 10/09/16 Dimethyl Fumarate [Tecfidera] 240 mg PO BID 07/15/14 10/09/16 Ocella 1 tab PO DAILY 04/13/15 10/09/16 Ondansetron Odt [Zofran ODT] 4 mg PO Q8HR PRN 04/13/15 10/09/16 Ergocalciferol [Vitamin D2 50,000 unit PO MO 12/24/15 10/09/16 (DRISDOL)] Meclizine [Antivert] 25 mg PO BID 12/24/15 10/09/16 Sertraline [Zoloft] 100 mg PO BID 12/24/15 10/09/16 Lisinopril [Prinivil] 10 mg PO DAILY 01/01/16 10/09/16 SUMAtriptan SUCCINATE [Imitrex] 200 mg PO DAILY PRN 01/01/16 10/09/16 Pentosan Polysulfate Sodium 100 mg PO TID 02/07/16 10/09/16 [Elmiron] Dicyclomine [Bentyl] 20 mg PO QID PRN 08/09/16 10/09/16 oxyCODONE-APAP 10-325MG [Percocet 1 tab PO Q4H 08/09/16 10/09/16 10-325 mg] tiZANidine [Zanaflex] 8 mg PO QID 08/09/16 10/09/16 Dextroamphetamine/Amphetamine 20 mg PO BID 08/11/16 10/09/16 [Adderall] Oxymorphone HCl [Opana ER] 15 mg PO BID 10/09/16 10/09/16 Previous Rx's Medication Instructions Recorded Oxybutynin Chloride [Ditropan] 5 mg PO TID #45 tab 12/24/15 Atorvastatin [Lipitor] 10 mg PO DAILY #30 tab 08/14/16 Clopidogrel [Plavix] 75 mg PO DAILY #30 tab 08/14/16 Levothyroxine Sodium [Synthroid] 50 mcg PO DAILY@0630 #30 tab 08/14/16 amLODIPine [Norvasc] 10 mg PO DAILY #30 tab 08/14/16 Allergies Allergy/AdvReac Type Severity Reaction Status Date / Time amoxicillin [Amoxicillin] Allergy Severe Anaphylaxis, Verified 10/09/16 15:13 seizures amoxicillin trihydrate Allergy Severe seizures Verified 10/09/16 15:13 [From Augmentin] ciprofloxacin [From Cipro] Allergy Severe Rash/Hives, Verified 10/09/16 15:13 seizures codeine phosphate Allergy Unknown Rash/Hives Verified 10/09/16 15:13 [From Tylenol-Codeine #3] ibuprofen [From Motrin] Allergy Unknown Rash/Hives,Lips Verified 10/09/16 15:13 swell ketorolac tromethamine Allergy Unknown Rash/Hives Verified 10/09/16 15:13 [From Toradol] cefuroxime axetil Allergy Rash/Hives Verified 10/09/16 15:13 [From Ceftin] latex Allergy Rash/Hives Verified 10/09/16 15:13 NSAIDS (Non-Steroidal Allergy Rash/Hives,Lips Verified 10/09/16 15:13 Anti-Inflamma eddyll Review of Systems ROS Statement: Those systems with pertinent positive or pertinent negative responses have been documented in the HPI. ROS Other: All systems not noted in ROS Statement are negative. Past Medical History Past Medical History: Asthma, Fibromyalgia, GERD/Reflux, Hypertension, Musculoskeletal Disorder, Neurologic Disorder, Renal Disease, Seizure Disorder Additional Past Medical History / Comment(s): PT recently admitted to [facility] 08/10 with MS flare up-tachcardia and agitation-?r/t steroids, Other HX: Multiple Sclerosis, migraines, DJD, interstitial cystitis, UTI, PCOS, vit D deficiency, bilateral optic neuritis with visual problems, UTI, chronic pain, numbness/tingling R side of body. History of Any Multi-Drug Resistant Organisms: C-DIFF Date of last positivie culture/infection: 12/17/2014 MDRO Source:: stool Past Surgical History: Cholecystectomy, Orthopedic Surgery Additional Past Surgical History / Comment(s): Lt shoulder rotator cuff repair 06/06/14 @ [facility].- pt has since re-torn, Arthroscopic left knee 2000 & 2002. ARTHROSCOPY LT SHOULDER. Past Anesthesia/Blood Transfusion Reactions: No Reported Reaction Additional Past Anesthesia/Blood Transfusion Reaction / Comment(s): Pt has never recieved blood. Past Psychological History: Anxiety, Depression Additional Psychological History / Comment(s): Pt lives with her and their daughter. She is independent. She has MS and when she has a flare up she will use a walker or wheelchair. She drives a car. Smoking Status: Former smoker Past Alcohol Use History: None Reported Additional Past Alcohol Use History / Comment(s): STARTED SMOKING AGE 17 and quit in 2016 but is using vapor cigarette. Patient denies any medical marijuana , marijuana, street drug use. She denies any alcohol use or abuse. Patient is and lives with her and one child. There is a dog in the home. No recent travel. Patient is on disability. Past Drug Use History: None Reported - Past Family History Mother Family Medical History: No Reported History Additional Family Medical History / Comment(s): mother is healthy Father Family Medical History: Hypertension General Exam - General Exam Comments Initial Comments: General: The patient is awake and alert, in no distress, and does not appear acutely ill. Neck: The neck is supple, there is no tenderness or JVD. Cardiovascular: There is a regular rate and rhythm. No murmur, rub or gallop is appreciated. Respiratory: Lungs are clear to auscultation, respirations are non-labored, breath sounds are equal. No wheezes, stridor, rales, or rhonchi. Musculoskeletal: There is tenderness to palpation to the lateral aspect of the left foot. There is tenderness to palpation of the left tib-fib. Patient has tenderness to the left ankle with flexion and extension of the left foot. There is no ecchymosis, erythema or swelling. Full range of motion, strength 5/ 5 and Sensation intact. Posterior tibial and dorsalis pedis pulses are 2+ bilaterally. Capillary refill is less than 2 seconds. Neurological: A&O x 3. CN II-XII intact, There are no obvious motor or sensory deficits. Coordination appears grossly intact. Speech is normal. Skin: Skin is warm and dry and no rashes or lesions are noted. Psychiatric: Normal mood and affect. Limitations: no limitations Course Vital Signs 10/09/16 14:41 Temperature 98.4 F Pulse Rate 83 Respiratory 20 Rate Blood Pressure 152/84 O2 Sat by Pulse 98 Oximetry Medical Decision Making - Medical Decision Making This is a 32 for a female presents with left foot pain 4 days. On physical exam There is tenderness to palpation to the lateral aspect of the left foot. There is tenderness to palpation of the left tib-fib. Patient has tenderness to the left ankle with flexion and extension of the left foot. There is no ecchymosis, erythema or swelling. Full range of motion, strength 5/5 and Sensation intact. Posterior tibial and dorsalis pedis pulses are 2+ bilaterally. Capillary refill is less than 2 seconds. X-rays of the left tib-fib, left ankle and left foot are done and reviewed showing: X-ray left tib-fib: No acute osseous abnormality. Report by Dr. Hastings. X-ray left foot: No acute fracture or dislocation. If symptoms persist follow-up exam in 7-10 days could be obtained. Report read by Dr. Hastings. Xray left ankle: No acute fracture or dislocation, if symptoms persist follow-up study in 7-10 days would be suggested. Report read by Dr. Hastings. I discussed the results with patient. I discussed occult fracture. Discussed rest, ice, elevate and use Gonzalez wrap and Aircast for support while up and walking. I discussed foot sprain. Discussed use of crutches. I discussed return parameters. I discussed that patient should take her home pain medications as she has specific medications that she takes due to MS. Patient refused Tylenol in the EC today. Patient is ambulatory without difficulty EC today. Discussed that patient should follow up with PCP in one to 2 days or return to the EC for any worsening symptoms or for any further concerns. Patient was receptive to this plan and patient will be discharged home. Disposition Clinical Impression: Foot sprain Disposition: HOME SELF-CARE Condition: Good Instructions: Foot Sprain (ED) Additional Instructions: Please rest, ice, elevate and use Gonzalez wrap and Aircast for compression and support all up and walking. Please use crutches as needed for walking. Please perform range of motion exercises periodically throughout the day. Please use your home pain medications as needed. Please follow-up with family doctor in the next 2 days of symptoms have not improved. Please return to emergency room if the symptoms increase or worsen or for any other concerns. Referrals: Neno Quinones MD [Primary Care Provider] - 1-2 days Time of Disposition: 16:03
--- NOTE | 2016-10-09 15:44 | XR ---
EXAMINATION TYPE: XR ankle complete LT DATE OF EXAM: 10/09/2016 3:40 PM COMPARISON: NONE HISTORY: Pain FINDINGS: Three views of the ankle demonstrate the ankle mortise to be intact and symmetric. The joint spaces are preserved. The osseous structures are intact. Plantar calcaneal spur noted. IMPRESSION: 1. No definite acute fracture or dislocation, if symptoms persist follow-up study in 7 to 10 days wou ld be suggested.
--- NOTE | 2016-10-09 15:45 | XR ---
EXAMINATION TYPE: XR foot complete LT DATE OF EXAM: 10/09/2016 3:40 PM COMPARISON: NONE HISTORY: Pain TECHNIQUE: 3 views are submitted. FINDINGS: The osseous structures are intact and the joint spaces are preserved. There is no acute fracture or dislocation. Calcaneal spur noted. Bone island involving the fifth metatarsal noted. IMPRESSION: 1. No acute fracture or dislocation. If symptoms persist, follow-up exam in 7 to 10 days could be ob tained.
--- NOTE | 2016-10-09 15:49 | XR ---
EXAMINATION TYPE: XR tibia fibula LT DATE OF EXAM: 10/09/2016 3:40 PM COMPARISON: NONE HISTORY: Pain TECHNIQUE: 2 views are submitted. FINDINGS: The osseous structures are intact. The joint spaces are preserved. IMPRESSION: 1. No acute osseous abnormality.
== END 2016-10-09 16:15 | disposition home or self-care (01) ==
LOC: EC 13:57
DX: S93.602A Unspecified sprain of left foot, initial encounter (principal); J45.909 Unspecified asthma, uncomplicated; M79.7 Fibromyalgia; K21.9 Gastro-esophageal reflux disease without esophagitis; I10 Essential (primary) hypertension; G40.909 Epilepsy, unspecified, not intractable, without status epilepticus; M79.9 Soft tissue disorder, unspecified; R29.90 Unspecified symptoms and signs involving the nervous system; G35 Multiple sclerosis; F41.9 Anxiety disorder, unspecified; F32.9 Major depressive disorder, single episode, unspecified; Z87.891 Personal history of nicotine dependence; Z79.899 Other long term (current) drug therapy; Z79.3 Long term (current) use of hormonal contraceptives; Z79.891 Long term (current) use of opiate analgesic; Z88.0 Allergy status to penicillin; Z88.1 Allergy status to other antibiotic agents; Z88.6 Allergy status to analgesic agent; Z88.5 Allergy status to narcotic agent; Z91.040 Latex allergy status; Z86.69 Personal history of other diseases of the nervous system and sense organs; Z98.890 Other specified postprocedural states; W18.30XA Fall on same level, unspecified, initial encounter; Y93.01 Activity, walking, marching and hiking; Y92.89 Other specified places as the place of occurrence of the external cause
CPT/HCPCS: 99283

== ENCOUNTER 2017-01-31 10:56 | Emergency (ER) | payer MEDICARE, OTHER ==
[2017-01-31] MEDS ORDERED: diphenhydrAMINE 50 MG/ML 1 ML VIAL IVP STA (12:17)
[2017-01-31] MEDS ORDERED: SODIUM CHLORIDE 0.9% 1,000 ML IV STA (12:17)
[2017-01-31] MEDS ORDERED: ONDANSETRON 4 MG/2 ML VIAL IVP STA (12:17)
[2017-01-31] MEDS ORDERED: MORPHINE SULFATE 4 MG/ML SYRINGE IV STA (12:17)
[2017-01-31] MEDS ORDERED: RX INFO: IV CONTRAST WAS GIVEN 1 EACH MISC MISCELLANE PRN (12:17)
[2017-01-31] MEDS ORDERED: MAG HYDROX/AL HYDROX/SIMETH 30 ML CUP PO PRN (12:19)
[2017-01-31] MEDS ORDERED: FAMOTIDINE 20 MG/2 ML VIAL IV STA (12:19)
--- NOTE | 2017-01-31 12:28 | ED ---
Abdominal Pain HPI - General Chief Complaint: Abdominal Pain Stated Complaint: near syncope, vomiting Source: patient Mode of arrival: ambulatory Limitations: no limitations - History of Present Illness Initial Comments: Patient is a 37-year-old female who presents for evaluation for severe epigastric abdominal pain, nausea, vomiting which is worsening over the past 3 days. Past medical history as below. Patient has an extensive medical history. She has a history of both pancreatitis and kidney stones in the past. She stated that her symptoms started roughly 3 days ago. It started with mild nausea and progressed to multiple episodes of clear emesis/stomach content. Patient describes having very sharp epigastric pain which is 9 out of 10. It radiates to the back. Lying down somewhat makes it feel better. Vomiting seems to exacerbate the pain. She denies any alcohol use. She admits to diarrhea. No blood in the stool. No recent changes in medications. No sick contacts. No suspicious food intake. No recent travel. She states that she has body aches all over. She feels very weak. She denies fever, URI symptoms, shortness breath, cough, pain or burning with urination. - Related Data Home Medications Medication Instructions Recorded Confirmed Albuterol Inhaler [Ventolin Hfa 2 puff INHALATION RT-QID PRN 12/09/13 01/31/17 Inhaler] Famotidine [Pepcid] 20 mg PO BID 12/09/13 01/31/17 Ipratropium/Albuterol Sulfate 1 puff INHALATION RT-QID PRN 12/09/13 01/31/17 [Combivent Respimat Inhaler] Montelukast [Singulair] 10 mg PO DAILY 12/09/13 01/31/17 Topiramate [Topamax] 200 mg PO BID 12/09/13 01/31/17 Dimethyl Fumarate [Tecfidera] 240 mg PO BID 07/15/14 01/31/17 Ocella 1 tab PO DAILY 04/13/15 01/31/17 Ondansetron Odt [Zofran ODT] 4 mg PO Q8HR PRN 04/13/15 01/31/17 Ergocalciferol [Vitamin D2 50,000 unit PO MO 12/24/15 01/31/17 (DRISDOL)] Meclizine [Antivert] 25 mg PO BID 12/24/15 01/31/17 Sertraline [Zoloft] 100 mg PO BID 12/24/15 01/31/17 Lisinopril [Prinivil] 10 mg PO DAILY 01/01/16 01/31/17 SUMAtriptan SUCCINATE [Imitrex] 200 mg PO DAILY PRN 01/01/16 01/31/17 Pentosan Polysulfate Sodium 100 mg PO TID 02/07/16 01/31/17 [Elmiron] Dicyclomine [Bentyl] 20 mg PO QID PRN 08/09/16 01/31/17 oxyCODONE-APAP 10-325MG [Percocet 1 tab PO Q4H 08/09/16 01/31/17 10-325 mg] tiZANidine [Zanaflex] 8 mg PO QID 08/09/16 01/31/17 Dextroamphetamine/Amphetamine 20 mg PO BID 08/11/16 01/31/17 [Adderall] Oxymorphone HCl [Opana ER] 15 mg PO BID 10/09/16 01/31/17 Previous Rx's Medication Instructions Recorded Oxybutynin Chloride [Ditropan] 5 mg PO TID #45 tab 12/24/15 Atorvastatin [Lipitor] 10 mg PO DAILY #30 tab 08/14/16 Clopidogrel [Plavix] 75 mg PO DAILY #30 tab 08/14/16 Levothyroxine Sodium [Synthroid] 50 mcg PO DAILY@0630 #30 tab 08/14/16 amLODIPine [Norvasc] 10 mg PO DAILY #30 tab 08/14/16 Allergies Allergy/AdvReac Type Severity Reaction Status Date / Time amoxicillin [Amoxicillin] Allergy Severe Anaphylaxis, Verified 01/31/17 12:02 seizures amoxicillin trihydrate Allergy Severe seizures Verified 01/31/17 12:02 [From Augmentin] ciprofloxacin [From Cipro] Allergy Severe Rash/Hives, Verified 01/31/17 12:02 seizures codeine phosphate Allergy Unknown Rash/Hives Verified 01/31/17 12:02 [From Tylenol-Codeine #3] ibuprofen [From Motrin] Allergy Unknown Rash/Hives,Lips Verified 01/31/17 12:02 swell ketorolac tromethamine Allergy Unknown Rash/Hives Verified 01/31/17 12:02 [From Toradol] cefuroxime axetil Allergy Rash/Hives Verified 01/31/17 12:02 [From Ceftin] latex Allergy Rash/Hives Verified 01/31/17 12:02 NSAIDS (Non-Steroidal Allergy Rash/Hives,Lips Verified 01/31/17 12:02 Anti-Inflamma swell Review of Systems ROS Statement: Those systems with pertinent positive or pertinent negative responses have been documented in the HPI. ROS Other: All systems not noted in ROS Statement are negative. Past Medical History Past Medical History: Asthma, Fibromyalgia, GERD/Reflux, Hypertension, Musculoskeletal Disorder, Neurologic Disorder, Renal Disease, Seizure Disorder Additional Past Medical History / Comment(s): PT recently admitted to [facility] 08/10 with MS flare up-tachcardia and agitation-?r/t steroids, Other HX: Multiple Sclerosis, migraines, DJD, interstitial cystitis, UTI, PCOS, vit D deficiency, bilateral optic neuritis with visual problems, UTI, chronic pain, numbness/tingling R side of body. History of Any Multi-Drug Resistant Organisms: C-DIFF Date of last positivie culture/infection: 12/17/2014 MDRO Source:: stool Past Surgical History: Cholecystectomy, Orthopedic Surgery Additional Past Surgical History / Comment(s): Lt shoulder rotator cuff repair 06/06/14 @ [facility].- pt has since re-torn, Arthroscopic left knee 2000 & 2002. ARTHROSCOPY LT SHOULDER. Past Anesthesia/Blood Transfusion Reactions: No Reported Reaction Additional Past Anesthesia/Blood Transfusion Reaction / Comment(s): Pt has never recieved blood. Past Psychological History: Anxiety, Depression Smoking Status: Former smoker Past Alcohol Use History: None Reported Past Drug Use History: None Reported - Past Family History Mother Family Medical History: No Reported History Additional Family Medical History / Comment(s): mother is healthy Father Family Medical History: Hypertension General Exam Limitations: no limitations General appearance: alert, other (Patient is on her left side actively vomiting. ) Head exam: Present: atraumatic, normocephalic, normal inspection Eye exam: Present: normal appearance, PERRL, EOMI. Absent: scleral icterus, conjunctival injection, periorbital swelling ENT exam: Present: normal exam, mucous membranes moist Neck exam: Present: normal inspection. Absent: tenderness, meningismus, lymphadenopathy Respiratory exam: Present: normal lung sounds bilaterally. Absent: respiratory distress, wheezes, rales, rhonchi, stridor Cardiovascular Exam: Present: regular rate, normal rhythm, normal heart sounds. Absent: systolic murmur, diastolic murmur, rubs, gallop, clicks GI/Abdominal exam: Present: soft, tenderness, normal bowel sounds, other (Pain with palpation of the epigastric area. No palpable liver margin. Soft. No peritoneal signs.). Absent: distended, guarding, rebound, rigid Extremities exam: Present: normal inspection, full ROM, normal capillary refill. Absent: tenderness, pedal edema, joint swelling, calf tenderness Back exam: Present: normal inspection Neurological exam: Present: alert, oriented X3, CN II-XII intact Psychiatric exam: Present: normal affect, normal mood Skin exam: Present: warm, dry, intact, normal color. Absent: rash Course Vital Signs 01/31/17 01/31/17 11:06 13:29 Temperature 97.9 F 97.8 F Pulse Rate 85 Pulse Rate [ 78 Right Supine Pulse Oximetery ] Respiratory 18 16 Rate Blood Pressure 173/121 Blood Pressure 201/98 [Right Arm Supine] O2 Sat by Pulse 100 100 Oximetry Medical Decision Making - Medical Decision Making 1220: Patient is a 37-year-old female who presents for evaluation for intractable abdominal pain, nausea, vomiting over the last 3 days. History of pancreatitis. Clinical suspicion for this at this time. Her pain is quite severe. We'll order abdominal labs with a troponin, EKG, chest x-ray, CT abdomen and pelvis with IV contrast. We'll also order Zofran, morphine, Maalox , Pepcid, Benadryl, IV fluid bolus. 1345: Delay in getting labs. Received meds. Not improved. WIll order reglan and dilaudid. -Was notified by nursing staff that the patient eloped from the hospital with her IV in the sink. The patient had another IV in her arm. She is brought back into the emergency department. The IV was removed. The patient again eloped. This occurred prior to completion of services. I reviewed her laboratory studies which were concerning for leukocytosis and lactic acidosis. CT imaging not completed. Reviewed her previous laboratory studies the patient has had significant leukocytosis before in the past. Was told by nursing staff that the arm band was on the arm for a significant period of time as she was a difficult IV start. I attempted to call the patient directly through the phone number listed in the demographic section. No one answered. I then attempted to contact the patient's primary care physician, Dr. Quinones, and left a message for a call back. I'm concerned about this patient and she does have abnormal laboratory studies and the potential for serious illness at this time. Her behavior though is suspicious for possible drug-seeking behavior as she eloped after a dose of Dilaudid. - Lab Data Result diagrams: 01/31/17 14:04 01/31/17 14:04 Lab Results 01/31/17 01/31/17 01/31/17 Range/Units 14:04 14:04 14:04 WBC 15.3 H (3.8-10.6) k/uL RBC 4.63 (3.80-5.40) m/uL Hgb 13.4 (11.4-16.0) gm/dL Hct 40.6 (34.0-46.0) % MCV 87.6 (80.0-100.0) fL MCH 29.0 (25.0-35.0) pg MCHC 33.1 (31.0-37.0) g/dL RDW 13.5 (11.5-15.5) % Plt Count 393 (150-450) k/uL Neutrophils % 85 % Lymphocytes % 11 % Monocytes % 3 % Eosinophils % 1 % Basophils % 0 % Neutrophils # 13.0 H (1.3-7.7) k/uL Lymphocytes # 1.7 (1.0-4.8) k/uL Monocytes # 0.4 (0-1.0) k/uL Eosinophils # 0.1 (0-0.7) k/uL Basophils # 0.0 (0-0.2) k/uL Sodium 145 (137-145) mmol/L Potassium 3.2 L (3.5-5.1) mmol/L Chloride 108 H (98-107) mmol/L Carbon Dioxide 16 L (22-30) mmol/L Anion Gap 21 mmol/L BUN 8 (7-17) mg/dL Creatinine 0.60 (0.52-1.04) mg/dL Est GFR (MDRD) Af Amer >60 (>60 ml/min/1.73 sqM) Est GFR (MDRD) Non-Af >60 (>60 ml/min/1.73 sqM) Glucose 113 H (74-99) mg/dL Plasma Lactic Acid Tom 5.0 H* (0.7-2.0) mmol/L Calcium 10.4 H (8.4-10.2) mg/dL Magnesium 1.6 (1.6-2.3) mg/dL Total Bilirubin 0.9 (0.2-1.3) mg/dL AST 22 (14-36) U/L ALT 25 (9-52) U/L Alkaline Phosphatase 46 (38-126) U/L Troponin I (0.000-0.034) ng/mL Total Protein 7.5 (6.3-8.2) g/dL Albumin 5.0 (3.5-5.0) g/dL Lipase 128 (23-300) U/L HCG, Quant <2.4 mIU/mL 01/31/17 Range/Units 14:04 WBC (3.8-10.6) k/uL RBC (3.80-5.40) m/uL Hgb (11.4-16.0) gm/dL Hct (34.0-46.0) % MCV (80.0-100.0) fL MCH (25.0-35.0) pg MCHC (31.0-37.0) g/dL RDW (11.5-15.5) % Plt Count (150-450) k/uL Neutrophils % % Lymphocytes % % Monocytes % % Eosinophils % % Basophils % % Neutrophils # (1.3-7.7) k/uL Lymphocytes # (1.0-4.8) k/uL Monocytes # (0-1.0) k/uL Eosinophils # (0-0.7) k/uL Basophils # (0-0.2) k/uL Sodium (137-145) mmol/L Potassium (3.5-5.1) mmol/L Chloride (98-107) mmol/L Carbon Dioxide (22-30) mmol/L Anion Gap mmol/L BUN (7-17) mg/dL Creatinine (0.52-1.04) mg/dL Est GFR (MDRD) Af Amer (>60 ml/min/1.73 sqM) Est GFR (MDRD) Non-Af (>60 ml/min/1.73 sqM) Glucose (74-99) mg/dL Plasma Lactic Acid Tom (0.7-2.0) mmol/L Calcium (8.4-10.2) mg/dL Magnesium (1.6-2.3) mg/dL Total Bilirubin (0.2-1.3) mg/dL AST (14-36) U/L ALT (9-52) U/L Alkaline Phosphatase (38-126) U/L Troponin I <0.012 (0.000-0.034) ng/mL Total Protein (6.3-8.2) g/dL Albumin (3.5-5.0) g/dL Lipase (23-300) U/L HCG, Quant mIU/mL Disposition Clinical Impression: Left against medical advice Disposition: Left Against Medical Advice Condition: Undetermined Referrals: Neno Quinones MD [Primary Care Provider] - 1-2 days
--- NOTE | 2017-01-31 13:25 | XR ---
EXAMINATION TYPE: XR chest 1V portable DATE OF EXAM: 01/31/2017 COMPARISON: 08/10/2016 HISTORY: Pain TECHNIQUE: Single frontal view of the chest is obtained. FINDINGS: There is no focal air space opacity, pleural effusion, or pneumothorax seen. The cardiac silhouette size is within normal limits. Postsurgical change involving the left shoulder. IMPRESSION: No acute process.
[2017-01-31 13:30] VITALS: BP 201/98; PULSE 78; RESP 16; TEMP 97.8
[2017-01-31] MEDS ORDERED: HYDROmorphone 1 MG/ML 1 ML SYRINGE IVP STA (13:30)
[2017-01-31] MEDS ORDERED: METOCLOPRAMIDE 5 MG/ML 2 ML VIAL IVP STA (13:30)
[2017-01-31 14:17] LABS: Basophils % (A) 0 %; CH 29.4; CHCM 33.7; Eosinophils # (A) 0.1 k/uL (0-0.7); Eosinophils % (A) 1 %; HCT 40.6 % (34.0-46.0); HGB 13.4 gm/dL (11.4-16.0); Luc # (Auto) 0.11; Luc % (Auto) 1; Lymphocytes # (A) 1.7 k/uL (1.0-4.8); Lymphocytes % (A) 11 %; MCHC 33.1 g/dL (31.0-37.0); MCV 87.6 fL (80.0-100.0); Mean Platelet Volume 7.5; Monocytes # (A) 0.4 k/uL (0-1.0); Monocytes % (A) 3 %; Neutrophils % (A) 85 %; RBC 4.63 m/uL (3.80-5.40); RDW 13.5 % (11.5-15.5); WBC 15.3 k/uL (3.8-10.6); WBC (Perox) 15.02
[2017-01-31 14:45] LABS: ALT 25 U/L (9-52); AST 22 U/L (14-36); Alkaline Phosphatase 46 U/L (38-126); Anion Gap 21 mmol/L; Blood Urea Nitrogen 8 mg/dL (7-17); Calcium 10.4 mg/dL (8.4-10.2); Carbon Dioxide 16 mmol/L (22-30); Chloride 108 mmol/L (98-107); Glucose 113 mg/dL (74-99); Magnesium 1.6 mg/dL (1.6-2.3); Non-African American GFR(MDRD) >60 (>60 ml/min/1.73 sqM); Potassium 3.2 mmol/L (3.5-5.1); Sodium 145 mmol/L (137-145); Total Bilirubin 0.9 mg/dL (0.2-1.3); Total Protein 7.5 g/dL (6.3-8.2)
[2017-01-31 15:00] LABS: HCG,Quantitative Serum <2.4 mIU/mL
[2017-01-31 17:11] LABS: Reflex Lactic Acid Y
== END 2017-01-31 14:27 | disposition left against medical advice (07) ==
LOC: EC 10:56
DX: R10.13 Epigastric pain (principal); R79.9 Abnormal finding of blood chemistry, unspecified; R11.2 Nausea with vomiting, unspecified; R53.1 Weakness; J45.909 Unspecified asthma, uncomplicated; G40.909 Epilepsy, unspecified, not intractable, without status epilepticus; G35 Multiple sclerosis; E55.9 Vitamin D deficiency, unspecified; F32.9 Major depressive disorder, single episode, unspecified; F41.9 Anxiety disorder, unspecified; I10 Essential (primary) hypertension; G89.29 Other chronic pain; K21.9 Gastro-esophageal reflux disease without esophagitis; Z87.891 Personal history of nicotine dependence; Z79.3 Long term (current) use of hormonal contraceptives; Z79.891 Long term (current) use of opiate analgesic; Z79.899 Other long term (current) drug therapy; Z88.0 Allergy status to penicillin; Z88.1 Allergy status to other antibiotic agents; Z88.5 Allergy status to narcotic agent; Z88.6 Allergy status to analgesic agent; Z91.040 Latex allergy status; Z86.69 Personal history of other diseases of the nervous system and sense organs; Z87.42 Personal history of other diseases of the female genital tract; Z90.49 Acquired absence of other specified parts of digestive tract
CPT/HCPCS: 36415; 80053; 83605; 83690; 83735; 84484; 85025; 84702; 71010; 99284; 96374; 96375 ×5; 96361; J2270; J1200; J2765; J2405; J1170

== ENCOUNTER 2017-03-17 14:34 | Inpatient (IN) | payer MEDICARE, OTHER ==
[2017-03-17] MEDS ORDERED: MORPHINE SULFATE 4 MG/ML SYRINGE IV STA (14:58)
[2017-03-17] MEDS ORDERED: ONDANSETRON 4 MG/2 ML VIAL IVP STA (14:58)
[2017-03-17] MEDS ORDERED: SODIUM CHLORIDE 0.9% 1,000 ML IV STA (14:58)
[2017-03-17] MEDS ORDERED: SODIUM CHLORIDE 0.9% 500 ML IV ONE (15:00)
--- NOTE | 2017-03-17 15:11 | ED ---
Weakness HPI - General Chief complaint: Weakness Stated complaint: MS Flare/UTI Time Seen by Provider: 03/17/17 14:41 Source: patient Mode of arrival: ambulatory Limitations: no limitations - History of Present Illness Initial comments: 37 years old female fell this morning and hurt her left shoulder, she has a history of MS she feels generally weak and complained about left sided body weakness, she feels left upper and left lower extremity both are weak. She woke up this morning was confused try to bear weight on the left leg. She fell she landed on her left shoulder now she has a hard time moving her left. She didn't she's not sure if she hit her head but is no laceration. c/o neck pain at this point no chest pain or shortness of breath but she does feel weak all over him a she feels her MS is acting up most time it happened that was about a year ago she is also complaining about palpitations - Related Data Home Medications Medication Instructions Recorded Confirmed Albuterol Inhaler [Ventolin Hfa 2 puff INHALATION RT-QID PRN 12/09/13 03/17/17 Inhaler] Famotidine [Pepcid] 20 mg PO BID 12/09/13 03/17/17 Ipratropium/Albuterol Sulfate 1 puff INHALATION RT-QID PRN 12/09/13 03/17/17 [Combivent Respimat Inhaler] Montelukast [Singulair] 10 mg PO DAILY 12/09/13 03/17/17 Dimethyl Fumarate [Tecfidera] 240 mg PO BID 07/15/14 03/17/17 Ondansetron Odt [Zofran ODT] 4 mg PO Q8HR PRN 04/13/15 03/17/17 Ergocalciferol [Vitamin D2 50,000 unit PO MO 12/24/15 03/17/17 (DRISDOL)] Meclizine [Antivert] 25 mg PO BID PRN 12/24/15 03/17/17 Sertraline [Zoloft] 100 mg PO BID 12/24/15 03/17/17 Lisinopril [Prinivil] 10 mg PO DAILY 01/01/16 03/17/17 SUMAtriptan SUCCINATE [Imitrex] 100 mg PO BID PRN 01/01/16 03/17/17 Pentosan Polysulfate Sodium 100 mg PO TID 02/07/16 03/17/17 [Elmiron] Dicyclomine [Bentyl] 20 mg PO QID PRN 08/09/16 03/17/17 oxyCODONE-APAP 10-325MG [Percocet 1 tab PO Q4H PRN 08/09/16 03/17/17 10-325 mg] tiZANidine [Zanaflex] 8 mg PO QID 08/09/16 03/17/17 Dextroamphetamine/Amphetamine 30 mg PO DAILY 03/17/17 03/17/17 [Adderall] Lacosamide [Vimpat] 100 mg PO DAILY 03/17/17 03/17/17 Morphine Sulfate ER [Ms Contin 30 mg PO BID PRN 03/17/17 03/17/17 30Mg] Norgestrel-Ethinyl Estradiol 1 tab PO DAILY 03/17/17 03/17/17 [[id number] Tablet] Topiramate [Topamax] 200 mg PO BID 03/17/17 03/17/17 Previous Rx's Medication Instructions Recorded Oxybutynin Chloride [Ditropan] 5 mg PO TID #45 tab 12/24/15 Atorvastatin [Lipitor] 10 mg PO DAILY #30 tab 08/14/16 Clopidogrel [Plavix] 75 mg PO DAILY #30 tab 08/14/16 Levothyroxine Sodium [Synthroid] 50 mcg PO DAILY@0630 #30 tab 08/14/16 amLODIPine [Norvasc] 10 mg PO DAILY #30 tab 08/14/16 Allergies Allergy/AdvReac Type Severity Reaction Status Date / Time amoxicillin [Amoxicillin] Allergy Severe Anaphylaxis, Verified 01/31/17 12:02 seizures ciprofloxacin [From Cipro] Allergy Severe Rash/Hives, Verified 01/31/17 12:02 seizures codeine phosphate Allergy Unknown Rash/Hives Verified 01/31/17 12:02 [From Tylenol-Codeine #3] cefuroxime axetil Allergy Rash/Hives Verified 01/31/17 12:02 [From Ceftin] latex Allergy Rash/Hives Verified 01/31/17 12:02 NSAIDS (Non-Steroidal Allergy Rash/Hives/Lip Verified 03/17/17 16:23 Anti-Inflamma Swelling Review of Systems ROS Statement: Those systems with pertinent positive or pertinent negative responses have been documented in the HPI. ROS Other: All systems not noted in ROS Statement are negative. Past Medical History Past Medical History: Asthma, Fibromyalgia, GERD/Reflux, Hypertension, Musculoskeletal Disorder, Neurologic Disorder, Renal Disease, Seizure Disorder Additional Past Medical History / Comment(s): MS,tachcardia Other HX: Multiple Sclerosis, migraines, DJD, interstitial cystitis, UTI, PCOS, vit D deficiency, bilateral optic neuritis with visual problems, UTI, chronic pain, numbness/tingling R side of body. History of Any Multi-Drug Resistant Organisms: C-DIFF Date of last positivie culture/infection: 12/17/2014 MDRO Source:: stool Past Surgical History: Cholecystectomy, Orthopedic Surgery Additional Past Surgical History / Comment(s): Lt shoulder rotator cuff repair 06/06/14 @ [facility].- pt has since re-torn, Arthroscopic left knee 2000 & 2002. ARTHROSCOPY LT SHOULDER. Past Anesthesia/Blood Transfusion Reactions: No Reported Reaction Additional Past Anesthesia/Blood Transfusion Reaction / Comment(s): Pt has never recieved blood. Past Psychological History: Anxiety, Depression Smoking Status: Former smoker Past Alcohol Use History: None Reported Past Drug Use History: None Reported - Past Family History Mother Family Medical History: No Reported History Additional Family Medical History / Comment(s): mother is healthy Father Family Medical History: Hypertension General Exam - General Exam Comments Initial Comments: General: The patient is awake and alert, in no distress, and does not appear acutely ill. GCS is 15 Skin: Skin is warm and dry and no rashes or lesions are noted. Hematoma or laceration noticed over the scalp Eye: Pupils are equal, round and reactive to light, extra-ocular movements are intact; there is normal conjunctiva bilaterally. Ears, nose, mouth and throat: There are moist mucous membranes and no oral lesions. Neck: The neck is supple, tenderness noticed over the C5 and C6 spinous process , trachea is midline no subcutaneous emphysema noticed Cardiovascular: There is a regular rate and rhythm. No murmur, rub or gallop is appreciated. Noticed tachycardia pulse rate is about 125 Respiratory: To auscultation bilateral, decreased breath sounds at the bases Gastrointestinal: Soft, non-distended, non-tender abdomen without masses or organomegaly noted. There is no rebound or guarding present. Bowel sounds are unremarkable. Back: There is tenderness over the right flank area, over the right flank area Musculoskeletal: Normal ROM, no tenderness, There is no pedal edema. There is no calf tenderness or swelling. No cords were appreciated. Neurological: CN II-XII intact, Cranial nerves III through XII are intact. L upper and lower extremity are significantly weaker compared to the R sides Psychiatric: Cooperative, appropriate mood & affect, normal judgment. Limitations: no limitations Course Vital Signs 03/17/17 03/17/17 14:35 16:59 Temperature 98.1 F 98.6 F Pulse Rate 128 H 66 Respiratory 20 18 Rate Blood Pressure 167/125 151/112 O2 Sat by Pulse 98 98 Oximetry EKG Findings - EKG Comments: EKG Findings:: EKG is a sinus tachycardia, ventricular rate is 121 OH interval is 126 QRS duration is 74 QT/QTC 320/454 noticed T-wave inversion in lead [address] elevation or ST depression noticed tenderness of the leads Medical Decision Making - Lab Data Result diagrams: 03/17/17 15:28 03/17/17 15:28 Lab Results 03/17/17 03/17/17 03/17/17 Range/Units 15:28 15:28 15:28 WBC 17.3 H (3.8-10.6) k/uL RBC 4.90 (3.80-5.40) m/uL Hgb 14.4 (11.4-16.0) gm/dL Hct 43.5 (34.0-46.0) % MCV 88.7 (80.0-100.0) fL MCH 29.5 (25.0-35.0) pg MCHC 33.2 (31.0-37.0) g/dL RDW 13.6 (11.5-15.5) % Plt Count 492 H (150-450) k/uL Neutrophils % 77 % Lymphocytes % 18 % Monocytes % 3 % Eosinophils % 1 % Basophils % 0 % Neutrophils # 13.3 H (1.3-7.7) k/uL Lymphocytes # 3.0 (1.0-4.8) k/uL Monocytes # 0.6 (0-1.0) k/uL Eosinophils # 0.2 (0-0.7) k/uL Basophils # 0.1 (0-0.2) k/uL PT (9.0-12.0) sec INR (<1.2) APTT (22.0-30.0) sec Sodium 139 (137-145) mmol/L Potassium 4.9 (3.5-5.1) mmol/L Chloride 106 (98-107) mmol/L Carbon Dioxide 19 L (22-30) mmol/L Anion Gap 14 mmol/L BUN 13 (7-17) mg/dL Creatinine 0.62 (0.52-1.04) mg/dL Est GFR (MDRD) Af Amer >60 (>60 ml/min/1.73 sqM) Est GFR (MDRD) Non-Af >60 (>60 ml/min/1.73 sqM) Glucose 95 (74-99) mg/dL Calcium 10.2 (8.4-10.2) mg/dL Total Bilirubin 0.8 (0.2-1.3) mg/dL AST 30 (14-36) U/L ALT 29 (9-52) U/L Alkaline Phosphatase 54 (38-126) U/L Total Creatine Kinase 50 (30-135) U/L CK-MB (CK-2) 0.4 (0.0-2.4) ng/mL CK-MB (CK-2) Rel Index 0.8 Troponin I <0.012 (0.000-0.034) ng/mL Total Protein 8.0 (6.3-8.2) g/dL Albumin 4.9 (3.5-5.0) g/dL TSH 1.070 (0.465-4.680) mIU/L Urine Color Urine Appearance (Clear) Urine pH (5.0-8.0) Ur Specific [place] (1.001-1.035) Urine Protein (Negative) Urine Glucose (UA) (Negative) Urine Ketones (Negative) Urine Blood (Negative) Urine Nitrite (Negative) Urine Bilirubin (Negative) Urine Urobilinogen (<2.0) mg/dL Ur Leukocyte Esterase (Negative) Urine RBC (0-5) /hpf Urine WBC (0-5) /hpf Ur Squamous Epith Cells (0-4) /hpf Urine Bacteria (None) /hpf Urine Opiates Screen (NotDetected) Ur Oxycodone Screen (NotDetected) Urine Methadone Screen (NotDetected) Ur Propoxyphene Screen (NotDetected) Ur Barbiturates Screen (NotDetected) U Tricyclic Antidepress (NotDetected) Ur Phencyclidine Scrn (NotDetected) Ur Amphetamines Screen (NotDetected) U Methamphetamines Scrn (NotDetected) U Benzodiazepines Scrn (NotDetected) Urine Cocaine Screen (NotDetected) U Marijuana (THC) Screen (NotDetected) 03/17/17 03/17/17 03/17/17 Range/Units 15:28 15:46 15:46 WBC (3.8-10.6) k/uL RBC (3.80-5.40) m/uL Hgb (11.4-16.0) gm/dL Hct (34.0-46.0) % MCV (80.0-100.0) fL MCH (25.0-35.0) pg MCHC (31.0-37.0) g/dL RDW (11.5-15.5) % Plt Count (150-450) k/uL Neutrophils % % Lymphocytes % % Monocytes % % Eosinophils % % Basophils % % Neutrophils # (1.3-7.7) k/uL Lymphocytes # (1.0-4.8) k/uL Monocytes # (0-1.0) k/uL Eosinophils # (0-0.7) k/uL Basophils # (0-0.2) k/uL PT 11.0 (9.0-12.0) sec INR 1.1 (<1.2) APTT 23.2 (22.0-30.0) sec Sodium (137-145) mmol/L Potassium (3.5-5.1) mmol/L Chloride (98-107) mmol/L Carbon Dioxide (22-30) mmol/L Anion Gap mmol/L BUN (7-17) mg/dL Creatinine (0.52-1.04) mg/dL Est GFR (MDRD) Af Amer (>60 ml/min/1.73 sqM) Est GFR (MDRD) Non-Af (>60 ml/min/1.73 sqM) Glucose (74-99) mg/dL Calcium (8.4-10.2) mg/dL Total Bilirubin (0.2-1.3) mg/dL AST (14-36) U/L ALT (9-52) U/L Alkaline Phosphatase (38-126) U/L Total Creatine Kinase (30-135) U/L CK-MB (CK-2) (0.0-2.4) ng/mL CK-MB (CK-2) Rel Index Troponin I (0.000-0.034) ng/mL Total Protein (6.3-8.2) g/dL Albumin (3.5-5.0) g/dL TSH (0.465-4.680) mIU/L Urine Color Yellow Urine Appearance Turbid H (Clear) Urine pH 6.0 (5.0-8.0) Ur Specific [place] 1.018 (1.001-1.035) Urine Protein 2+ H (Negative) Urine Glucose (UA) Negative (Negative) Urine Ketones Trace H (Negative) Urine Blood Trace H (Negative) Urine Nitrite Negative (Negative) Urine Bilirubin Negative (Negative) Urine Urobilinogen <2.0 (<2.0) mg/dL Ur Leukocyte Esterase Moderate H (Negative) Urine RBC 8 H (0-5) /hpf Urine WBC 50 H (0-5) /hpf Ur Squamous Epith Cells <1 (0-4) /hpf Urine Bacteria Rare H (None) /hpf Urine Opiates Screen Detected H (NotDetected) Ur Oxycodone Screen Detected H (NotDetected) Urine Methadone Screen Not Detected (NotDetected) Ur Propoxyphene Screen Not Detected (NotDetected) Ur Barbiturates Screen Not Detected (NotDetected) U Tricyclic Antidepress Not Detected (NotDetected) Ur Phencyclidine Scrn Not Detected (NotDetected) Ur Amphetamines Screen Not Detected (NotDetected) U Methamphetamines Scrn Not Detected (NotDetected) U Benzodiazepines Scrn Detected H (NotDetected) Urine Cocaine Screen Not Detected (NotDetected) U Marijuana (THC) Screen Not Detected (NotDetected) Critical Care Time Total Critical Care Time: 45 Critical Care Time: She came in with a tachycardia heart rate of 128 blood pressure was bit elevated 167/125 when she fell this morning complaining about the pain in the left shoulder murmur and the neck pain and significant left-sided upper or lower extremity weakness considering all this I did call Dr. Higgins call her neurologist unfortunately he was not in the office spoke WITH her nurse practitioner and then spoke with the Dr. Monsalve he agreed with Solu-Medrol 250 mg IV every 820 acute exacerbation of MS 10 considering his tachycardia and urine being so positive him concerned about sepsis especially shortness steroids considering her multiple ALLERGIES for example penicillin and cephalosporins quinolones she was started on meropenem infectious disease will be consulted Dr. Phan will be consulted and she be hospitalized under Dr. Lele boyer she also had a fluid resuscitation with tachycardia along with IV steroids and now IV antibiotics Disposition Clinical Impression: Left-sided weakness, Tachycardia, Fall, Injury of left shoulder, Confusion, Sepsis Disposition: ADMITTED IP TO THIS HOSP Condition: Good Referrals: Neno Quinones MD [Primary Care Provider] - 1-2 days
[2017-03-17] MEDS: SODIUM CHLORIDE 0.9% 1,000 ML IV SCH (15:33)
[2017-03-17 15:45] LABS: Basophils # (A) 0.1 k/uL (0-0.2); Basophils % (A) 0 %; CH 29.5; CHCM 33.5; Eosinophils # (A) 0.2 k/uL (0-0.7); Eosinophils % (A) 1 %; HCT 43.5 % (34.0-46.0); HDW 2.44; HGB 14.4 gm/dL (11.4-16.0); Luc % (Auto) 1; Lymphocytes % (A) 18 %; MCH 29.5 pg (25.0-35.0); MCHC 33.2 g/dL (31.0-37.0); MCV 88.7 fL (80.0-100.0); Mean Platelet Volume 7.2; Monocytes # (A) 0.6 k/uL (0-1.0); Monocytes % (A) 3 %; Neutrophils # (A) 13.3 k/uL (1.3-7.7); Neutrophils % (A) 77 %; RDW 13.6 % (11.5-15.5); WBC 17.3 k/uL (3.8-10.6); WBC (Perox) 17.33
[2017-03-17 16:00] LABS: ALT 29 U/L (9-52); AST 30 U/L (14-36); Alkaline Phosphatase 54 U/L (38-126); Anion Gap 14 mmol/L; Blood Urea Nitrogen 13 mg/dL (7-17); Calcium 10.2 mg/dL (8.4-10.2); Carbon Dioxide 19 mmol/L (22-30); Chloride 106 mmol/L (98-107); Glucose 95 mg/dL (74-99); Non-African American GFR(MDRD) >60 (>60 ml/min/1.73 sqM); Sodium 139 mmol/L (137-145); Total Bilirubin 0.8 mg/dL (0.2-1.3)
[2017-03-17 16:03] LABS: Creatine Kinase 50 U/L (30-135)
[2017-03-17 16:04] LABS: INR 1.1 (<1.2); Partial Thromboplastin Time 23.2 sec (22.0-30.0)
[2017-03-17 16:06] LABS: Potassium 4.9 mmol/L (3.5-5.1)
[2017-03-17 16:06] LABS: Appearance,Urine Turbid (Clear); Bacteria,Urine Rare /hpf; Bilirubin,Urine Negative (Negative); Glucose,Urine (UA) Negative (Negative); Ketones,Urine Trace (Negative); Leukocyte Esterase,Urine Moderate (Negative); Nitrite,Urine Negative (Negative); Particle Count 7339; Protein,Urine 2+ (Negative); RBC,Urine 8 /hpf (0-5); Specific Gravity,Urine 1.018 (1.001-1.035); Squamous Epithelial Cell,Urine <1 /hpf (0-4); UA Billing (MACRO vs. MICRO) MICRO; Urobilinogen,Urine <2.0 mg/dL (<2.0); WBC,Urine 50 /hpf (0-5)
--- NOTE | 2017-03-17 16:13 | CT ---
EXAMINATION TYPE: CT brain wo con DATE OF EXAM: 03/17/2017 COMPARISON: 08/15/2016 HISTORY: Patient complains of left side weakness today, causing a fall today. Patient has a history of known MS. CT DLP: 792.6 mGycm. Automated Exposure Control for Dose Reduction was Utilized. TECHNIQUE: CT scan of the head is performed without contrast. FINDINGS: There is no acute intracranial hemorrhage, mass effect, or midline shift identified. As s een on the prior examination there is a focal area of encephalomalacia within the right posterior par ietal lobe. Additionally periventricular white matter changes most pronounced within the negro radia ta on the right are seen compatible with the underlying provided history of multiple sclerosis. These have not progressed since the prior examination of 08/15/[address] The ventricles and sulci are with in normal limits in size. The globes are intact and the visualized sinuses are clear. IMPRESSION: 1. No acute intracranial hemorrhage, mass effect, or midline shift is seen. 2. 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 3. Periventricular white matter changes most pronounced within the right frontal lobe compatible with the underlying provided history of multiple sclerosis.
[2017-03-17 16:16] LABS: Creatine Kinase MB 0.4 ng/mL (0.0-2.4); Troponin I <0.012 ng/mL (0.000-0.034)
[2017-03-17] MEDS ORDERED: MEROPENEM 1 GM in SODIUM CHLORIDE 0.9% 100 ML IVPB STA (16:30)
--- NOTE | 2017-03-17 16:31 | XR ---
EXAMINATION TYPE: XR chest 2V DATE OF EXAM: 03/17/2017 COMPARISON: 01/31/2017 HISTORY: Weakness and fall TECHNIQUE: Frontal and lateral views of the chest are obtained. FINDINGS: There is no focal air space opacity, pleural effusion, or pneumothorax seen. The cardiac silhouette size is within normal limits. The osseous structures are intact. IMPRESSION: No acute cardiopulmonary process, unchanged from the prior.
--- NOTE | 2017-03-17 16:37 | XR ---
EXAMINATION TYPE: XR shoulder complete LT DATE OF EXAM: 03/17/2017 CLINICAL HISTORY: Left shoulder pain after a fall TECHNIQUE: Three views of the left shoulder are obtained. COMPARISON: 01/31/2017 and 08/14/2014 FINDINGS: There is no acute fracture/dislocation evident in the left shoulder. The acromioclavicula r joint appears and a single view, however this is due to the angle at which the view is ta angelica. Acromioclavicular arthropathy is demonstrated as marginal osteophyte projecting superiorly from the distal clavicle. Glenohumeral joint space appears within normal limits. The visualized ribs are intact and unremarkable. Single fixation screw from prior rotator cuff repair is seen within the jeronimo ral head. IMPRESSION: There is no acute fracture or dislocation in the left shoulder.
[2017-03-17] MEDS ORDERED: methylPREDNISolone SOD SUCCI 125 MG/2 ML VIAL IV STA (16:47)
[2017-03-17] MEDS ORDERED: MORPHINE SULFATE 4 MG/ML SYRINGE IVP STA (17:05)
[2017-03-17] MEDS ORDERED: METOCLOPRAMIDE 5 MG/ML 2 ML VIAL IVP STA (17:06)
[2017-03-17] MEDS ORDERED: NALOXONE 0.4 MG/ML 1 ML VIAL IV PRN (17:13)
[2017-03-17] MEDS ORDERED: ACETAMINOPHEN TAB 325 MG TAB PO PRN (17:13)
[2017-03-17] MEDS ORDERED: ONDANSETRON ODT 4 MG TAB PO PRN (17:45)
[2017-03-17] MEDS ORDERED: ALBUTEROL INHALER 60 PUFF/8 GM INHALER INHALATION PRN (17:45)
[2017-03-17] MEDS ORDERED: DICYCLOMINE 20 MG TAB PO PRN (17:45)
[2017-03-17] MEDS ORDERED: MECLIZINE 25 MG TAB PO PRN (17:45)
[2017-03-17] MEDS ORDERED: MORPHINE SULFATE 10 MG/ML SYRINGE IVP STA (17:47)
[2017-03-17] MEDS ORDERED: LISINOPRIL 10 MG TAB PO STA (17:56)
[2017-03-17] MEDS ORDERED: amLODIPine 10 MG TAB PO STA (17:56)
[2017-03-17] MEDS ORDERED: ERGOCALCIFEROL 50,000 UNIT CAP PO SCH (18:45)
[2017-03-17 19:19] LABS: Hemoglobin A1C 5.7 % (4.2-6.1)
[2017-03-17] MEDS: INSULIN LISPRO (humaLOG) 300 UNIT/3 ML VIAL SQ SCH (19:42)
--- NOTE | 2017-03-17 19:55 | XR ---
EXAMINATION TYPE: XR cervical spine comp DATE OF EXAM: 03/17/2017 TECHNIQUE: Frontal, lateral, oblique and open mouth view of the cervical spine are obtained. HISTORY: History of multiple sclerosis and fall. Neck pain. COMPARISON: None FINDINGS: The cervical spine is visualized in its entirety from C1 thru the top of T1 level, it is s atisfactory in alignment without evidence of acute fracture or dislocation. The pre-vertebral soft t issue appears within normal limits. The C1-C2 articulation is within normal limits on the open mouth view. The oblique images are within normal limits. IMPRESSION: No acute fracture or dislocation is seen in the cervical spine.
--- NOTE | 2017-03-17 19:56 | XR ---
EXAMINATION TYPE: XR orbit pre-MRI foreign body DATE OF EXAM: 03/17/2017 COMPARISON: NONE HISTORY: Orbital radiograph for MRI clearance. TECHNIQUE: Frontal and lateral radiograph were obtained of the orbits. FINDINGS: No radiopaque foreign body is seen. Paranasal sinuses are well-aerated. No fracture or disl ocation. IMPRESSION: No radiopaque foreign body.
[2017-03-17] MEDS: TOPIRAMATE 100 MG TAB PO SCH (20:32)
[2017-03-17] MEDS: OXYBUTYNIN CHLORIDE 5 MG TAB PO SCH (20:32)
[2017-03-17] MEDS: FAMOTIDINE 20 MG TAB PO SCH (20:33)
[2017-03-17] MEDS: SERTRALINE 100 MG TAB PO SCH (20:33)
[2017-03-17] MEDS: tiZANidine 4 MG TAB PO SCH ×2 (20:33→20:34)
[2017-03-17] MEDS: MONTELUKAST 10 MG TAB PO SCH (20:33)
[2017-03-17] MEDS: LACOSAMIDE 50 MG TABLET PO SCH (20:33)
[2017-03-17] MEDS: oxyCODONE-APAP 10-325MG 1 EACH TAB PO PRN (20:46)
[2017-03-17 21:04] LABS: Glucose,Whole Blood 184 mg/dL (75-99)
[2017-03-17] MEDS: MEROPENEM 1 GM in SODIUM CHLORIDE 0.9% 100 ML IVPB SCH (23:01)
[2017-03-17] MEDS: MORPHINE SULFATE 4 MG/ML SYRINGE IV PRN (23:13)
[2017-03-18] MEDS ORDERED: methylPREDNISolone SOD SUCCI 125 MG/2 ML VIAL IV SCH
--- NOTE | 2017-03-18 00:05 | P.HPIM ---
History of Present Illness H&P Date: 03/17/17 Chief Complaint: Weakness of the left side History of presenting complaint: This is a 37-year-old patient of Dr. Quinones. Chronic stable medical conditions include hypothyroid, hyperlipidemia, asthma, fibromyalgia, GERD, hypertension. Patient also got chronic pain syndrome. Patient has a diagnosis of multiple sclerosis. Patient would 2 days has noticed increased weakness of the left side decreased sensation and also some fuzziness of the vision. She said this is a classical of her MS exacerbation. She follows with her Dr. Dr. Pack was a neurologist out of the area. Patient also has history of anxiety depression. Also some trouble with urination. GEN.: Tired EYES: For Z vision] HEENT: None NECK: None RESPIRATORY: None CARDIOVASCULAR: None GASTROINTESTINAL: None GENITOURINARY: None MUSCULOSKELETAL: Pain in different joints LYMPHATICS: None HEMATOLOGICAL: None PSYCHIATRY: None NEUROLOGICAL: Left-sided weakness Past medical history: Multiple sclerosis, tonic-clonic seizures, hypothyroid, hyperlipidemia, obesity , asthma, fibromyalgia, GERD, hypertension, chronic pain syndrome, interstitial cyst cystitis, l bilateral optic neuritis, anxiety depression. Past surgical history: Cholecystectomy, left shoulder rotator cuff repair, knee down, arthroscope his left shoulder. Social history: , smoked for about 20 years, stopped last year. Does drive a car denies alcohol Family history: Reviewed, noncontributory to presentation VITAL SIGNS: 98 1, 66, 18, 151/112, 98% room air GENERAL: Average built BMI 32.3, laying in bed, comfortable. EYES: Pupils equal. Conjunctiva normal. HEENT: External appearance of nose and ears normal, oral cavity grossly normal. NECK: JVD not raised; masses not palpable. HEART: First and second heart sounds are normal; no edema. LUNGS: Respiratory rate normal; clear to auscultation. ABDOMEN: Soft, nontender, liver spleen not palpable, no masses palpable. LYMPHATICS: No lymph nodes palpable in the axilla and neck. PSYCH: Alert and oriented x3; mood and affect normal. NEUROLOGICAL: [Cranial nerves grossly intact; no facial asymmetry, power in the left arm and left leg 3/5, some decreased sensation Investigations: White count 7.3, potassium 40.4, potassium 4.9 Urine drug screen positive for opiates and oxycodone UA positive Assessment: -Acute exacerbation of multiple sclerosis manifesting as increased weakness and numbness of the left side of the body, also causing flareup of optic neuritis -Chronic pain syndrome with some acute flareup -Acute UTI -Hypothyroid -Hyper lipidemia -GERD -Obesity with BMI 32.3 -Chronic fibromyalgia -GERD -Essential hypertension -Anxiety depression not otherwise specified Plan: Home medications are resumed. Patient is put on IV Solu-Medrol. Will consult Dr. Moralez for pain management. Dr. Monsalve from neurology. Neurochecks in place. Past Medical History Past Medical History: Asthma, Fibromyalgia, GERD/Reflux, Hypertension, Musculoskeletal Disorder, Neurologic Disorder, Renal Disease, Seizure Disorder Additional Past Medical History / Comment(s): MS,tachcardia Other HX: Multiple Sclerosis, migraines, DJD, interstitial cystitis, UTI, PCOS, vit D deficiency, bilateral optic neuritis with visual problems, UTI, chronic pain, numbness/tingling R side of body. History of Any Multi-Drug Resistant Organisms: C-DIFF Date of last positivie culture/infection: 12/17/2014 MDRO Source:: stool Past Surgical History: Cholecystectomy, Orthopedic Surgery Additional Past Surgical History / Comment(s): Lt shoulder rotator cuff repair 06/06/14 @ [facility].- pt has since re-torn, Arthroscopic left knee 2000 & 2002. ARTHROSCOPY LT SHOULDER. Past Anesthesia/Blood Transfusion Reactions: No Reported Reaction Additional Past Anesthesia/Blood Transfusion Reaction / Comment(s): Pt has never recieved blood. Past Psychological History: Anxiety, Depression Additional Psychological History / Comment(s): Pt lives with her and their daughter. She is independent. She has MS and when she has a flare up she will use a walker or wheelchair. She drives a car. Smoking Status: Former smoker Past Alcohol Use History: None Reported Additional Past Alcohol Use History / Comment(s): STARTED SMOKING AGE 17 and quit in 2016 but is using vapor cigarette. Patient denies any medical marijuana , marijuana, street drug use. She denies any alcohol use or abuse. Patient is and lives with her and one child. There is a dog in the home. No recent travel. Patient is on disability. Past Drug Use History: None Reported - Past Family History Mother Family Medical History: No Reported History Additional Family Medical History / Comment(s): mother is healthy Father Family Medical History: Hypertension Medications and Allergies Home Medications Medication Instructions Recorded Confirmed Type Albuterol Inhaler [Ventolin Hfa 2 puff INHALATION RT-QID PRN 12/09/13 03/17/17 History Inhaler] Famotidine [Pepcid] 20 mg PO BID 12/09/13 03/17/17 History Ipratropium/Albuterol Sulfate 1 puff INHALATION RT-QID PRN 12/09/13 03/17/17 History [Combivent Respimat Inhaler] Montelukast [Singulair] 10 mg PO DAILY 12/09/13 03/17/17 History Dimethyl Fumarate [Tecfidera] 240 mg PO BID 07/15/14 03/17/17 History Ondansetron Odt [Zofran ODT] 4 mg PO Q8HR PRN 04/13/15 03/17/17 History Ergocalciferol [Vitamin D2 50,000 unit PO MO 12/24/15 03/17/17 History (DRISDOL)] Meclizine [Antivert] 25 mg PO BID PRN 12/24/15 03/17/17 History Sertraline [Zoloft] 100 mg PO BID 12/24/15 03/17/17 History Lisinopril [Prinivil] 10 mg PO DAILY 01/01/16 03/17/17 History SUMAtriptan SUCCINATE [Imitrex] 100 mg PO BID PRN 01/01/16 03/17/17 History Pentosan Polysulfate Sodium 100 mg PO TID 02/07/16 03/17/17 History [Elmiron] Dicyclomine [Bentyl] 20 mg PO QID PRN 08/09/16 03/17/17 History oxyCODONE-APAP 10-325MG [Percocet 1 tab PO Q4H PRN 08/09/16 03/17/17 History 10-325 mg] tiZANidine [Zanaflex] 8 mg PO QID 08/09/16 03/17/17 History Dextroamphetamine/Amphetamine 30 mg PO DAILY 03/17/17 03/17/17 History [Adderall] Lacosamide [Vimpat] 100 mg PO DAILY 03/17/17 03/17/17 History Morphine Sulfate ER [Ms Contin 30 mg PO BID PRN 03/17/17 03/17/17 History 30Mg] Norgestrel-Ethinyl Estradiol 1 tab PO DAILY 03/17/17 03/17/17 History [[id number] Tablet] Topiramate [Topamax] 200 mg PO BID 03/17/17 03/17/17 History Allergies Allergy/AdvReac Type Severity Reaction Status Date / Time amoxicillin [Amoxicillin] Allergy Severe Anaphylaxis, Verified 01/31/17 12:02 seizures ciprofloxacin [From Cipro] Allergy Severe Rash/Hives, Verified 01/31/17 12:02 seizures codeine phosphate Allergy Unknown Rash/Hives Verified 01/31/17 12:02 [From Tylenol-Codeine #3] cefuroxime axetil Allergy Rash/Hives Verified 01/31/17 12:02 [From Ceftin] latex Allergy Rash/Hives Verified 01/31/17 12:02 NSAIDS (Non-Steroidal Allergy Rash/Hives/Lip Verified 03/17/17 16:23 Anti-Inflamma Swelling Results CBC & Chem 7: 03/17/17 15:28 03/17/17 15:28
[2017-03-18] MEDS: methylPREDNISolone SOD SUCCI 250 MG in SODIUM CHLORIDE 0.9% 100 ML IVPB SCH ×3 (00:09→17:32)
[2017-03-18] MEDS: SODIUM CHLORIDE 0.9% 1,000 ML IV SCH ×3 (03:59→20:04)
[2017-03-18] MEDS: MORPHINE SULFATE 4 MG/ML SYRINGE IV PRN ×5 (04:00→23:02)
[2017-03-18 05:46] LABS: Glucose,Whole Blood 135 mg/dL (75-99)
[2017-03-18] MEDS: INSULIN LISPRO (humaLOG) 300 UNIT/3 ML VIAL SQ SCH ×3 (06:03→17:33)
[2017-03-18] MEDS: LEVOTHYROXINE 50 MCG TAB PO SCH (06:03)
[2017-03-18] MEDS: oxyCODONE-APAP 10-325MG 1 EACH TAB PO PRN ×3 (06:03→17:13)
[2017-03-18 06:41] LABS: Basophils % (A) 0 %; CH 28.4; CHCM 30.9; Eosinophils % (A) 0 %; HDW 2.35; HGB 13.8 gm/dL (11.4-16.0); Hypochromasia Slight; Luc # (Auto) 0.07; Luc % (Auto) 0; Lymphocytes # (A) 1.3 k/uL (1.0-4.8); Lymphocytes % (A) 7 %; MCH 29.1 pg (25.0-35.0); MCHC 31.4 g/dL (31.0-37.0); MCV 92.7 fL (80.0-100.0); Mean Platelet Volume 6.9; Monocytes # (A) 0.2 k/uL (0-1.0); Monocytes % (A) 1 %; Neutrophils # (A) 16.8 k/uL (1.3-7.7); Neutrophils % (A) 91 %; RBC 4.75 m/uL (3.80-5.40); RDW 12.9 % (11.5-15.5); WBC 18.4 k/uL (3.8-10.6); WBC (Perox) 18.87
[2017-03-18] MEDS ORDERED: LORazepam 2 MG/ML SYRINGE IV STA (06:51)
[2017-03-18 06:52] LABS: ALT 32 U/L (9-52); AST 13 U/L (14-36); Alkaline Phosphatase 46 U/L (38-126); Anion Gap 14 mmol/L; Blood Urea Nitrogen 15 mg/dL (7-17); Calcium 9.8 mg/dL (8.4-10.2); Carbon Dioxide 17 mmol/L (22-30); Chloride 110 mmol/L (98-107); Glucose 128 mg/dL (74-99); Non-African American GFR(MDRD) >60 (>60 ml/min/1.73 sqM); Potassium 4.9 mmol/L (3.5-5.1); Sodium 141 mmol/L (137-145); Total Bilirubin 0.3 mg/dL (0.2-1.3); Total Protein 6.8 g/dL (6.3-8.2)
[2017-03-18] MEDS: IPRATROPIUM-ALBUTEROL 3 ML NEB INHALATION PRN ×3 (08:22→20:31)
--- NOTE | 2017-03-18 08:45 | MR ---
EXAMINATION TYPE: MR brain wo/w con DATE OF EXAM: 03/18/2017 COMPARISON: 10/27/2013 HISTORY: 37-year-old female, MS and left-sided weakness of upper or lower extremity TECHNIQUE: Multiplanar, multisequence images of the brain and brainstem is performed without and with utilizing 20 mL intravenous MultiHance gadolinium contrast. Demyelinating disease protocol with add itional Sagittal Flair sequence performed. FINDINGS: T2 Lesions Present : Yes Approximate Number of Lesions: 15 in the right cerebral hemisphere and 5-10 in the left cerebral sara sphere. Locations Identified : Primarily deep white matter and periventricular. Also, callososeptal with at l east one corpus colossal lesion also seen. Size of Reference Lesion(s): 1. 1.1 x 1.8 cm in the right periatrial white matter axial image 21. Stable. 2. 1.3 x 0.9 cm versus 1.1 x 0.8 cm in the right frontal periventricular white matter axial image 20. 3. 9 x 5 mm in the left negro radiata axial image 18, not significantly changed. Enhancing Lesion(s) Present: No. T1 Hypointense Lesion(s) Present: Yes. Change from Prior: Largely stable, reference lesion two shows slight increase in size. T2/FLAIR weighted sequences show new encephalomalacia and increasing gliosis within the right occipit al lobe. Diffusion weighted images demonstrate no evidence of a recent infarct or other diffusion abnormality. There is no worrisome extra-axial fluid collection. The ventricular system and cisternal spaces are normal in size and appearance. There is similar mild cerebral cortical volume loss. Midline structures demonstrate normal morphology. The craniocervical junction appears within normal limits. Post contrast images demonstrate no abnormal enhancement. The dural venous sinuses appear patent. The visualized sinuses are clear and the globes are intact. IMPRESSION: 1. No acute intracranial abnormality seen. There is new encephalomalacia and progressive gliosis in t he right occipital lobe as compared to 2013. This could reflect sequela of prior traumatic or vascula r insult. 2. Mild to moderate scattered foci of T2 bright white matter change in keeping with the patient's kno wn MS. 3. The white matter changes are largely stable. Reference lesion #2 above within the right frontal pe riventricular white matter is slightly larger as compared to 2013. No enhancing/actively demyelinatin g plaques seen.
[2017-03-18] MEDS: CLOPIDOGREL 75 MG TAB PO SCH (08:59)
[2017-03-18] MEDS: ATORVASTATIN 10 MG TAB PO SCH (08:59)
[2017-03-18] MEDS ORDERED: LACOSAMIDE 50 MG TABLET PO SCH (09:00)
[2017-03-18] MEDS: amLODIPine 10 MG TAB PO SCH (09:00)
[2017-03-18] MEDS ORDERED: NON-FORMULARY DRUG (Dextroamphetamine/Amphetamine [Adderall] 30 MG) PO SCH (09:00)
[2017-03-18] MEDS ORDERED: NORGESTREL ETHINYL ESTRADIOL PO SCH (09:00)
[2017-03-18] MEDS ORDERED: NON-FORMULARY DRUG (Pentosan Polysulfate Sodium [Elmiron] 100 MG) PO SCH (09:00)
[2017-03-18] MEDS ORDERED: NON-FORMULARY DRUG (Dimethyl Fumarate [Tecfidera] 240 MG) PO SCH (09:00)
[2017-03-18] MEDS: FAMOTIDINE 20 MG TAB PO SCH ×2 (09:01→20:01)
[2017-03-18] MEDS: SERTRALINE 100 MG TAB PO SCH ×2 (09:02→20:01)
[2017-03-18] MEDS: TOPIRAMATE 100 MG TAB PO SCH ×2 (09:02→20:00)
[2017-03-18] MEDS: LISINOPRIL 10 MG TAB PO SCH (09:02)
[2017-03-18] MEDS: OXYBUTYNIN CHLORIDE 5 MG TAB PO SCH ×3 (09:02→20:00)
[2017-03-18] MEDS: tiZANidine 4 MG TAB PO SCH ×4 (09:03→20:00)
[2017-03-18] MEDS: MORPHINE SULFATE ER 30 MG TABLET PO PRN ×2 (09:27→20:00)
[2017-03-18] MEDS: MEROPENEM 1 GM in SODIUM CHLORIDE 0.9% 100 ML IVPB SCH (09:27)
--- NOTE | 2017-03-18 09:39 | CONS ---
DATE OF CONSULTATION: 03/17/2017 CHIEF COMPLAINT: Multiple sclerosis exacerbation HISTORY OF PRESENT ILLNESS: The patient is a pleasant 37-year-old female who is being evaluation today on 03/17/17 by the neurology service per the request of Dr. Lloyd for a multiple sclerosis exacerbation. The patient has a long-standing history of multiple sclerosis and she is Tecfidera twice daily for this. She states that she has been doing well and her last demyelinating exacerbation occurred approximately 1 year ago. Yesterday, she started having weakness on her left side and this has not resolved as of yet. A CT scan of the brain was done, which showed changes consistent with multiple sclerosis, but this was felt to be unchanged when compared to her 08/15/16 study. Encephalomalacia was also noticed in the right parietal region. She also reports some blurred vision. Her CBC showed leukocytosis at 17.3 and her urinalysis showed 15 WBCs with moderate leukocyte esterase. She has been having symptoms of a urinary tract infection for the past several days according to her. Her comprehensive metabolic profile and cardiac enzymes were normal. Her urine drug screen was positive for opiates, oxycodone, and benzodiazepine. She is on multiple analgesics for chronic lower extremity pain, which she states is due to her multiple sclerosis. The patient was admitted and started on IV Solu- Medrol. At the time of my evaluation, she is lying in her bed and appears to be in no acute distress. She denies any changes in the intensity of her weakness. The patient also reports a history of seizure disorder. In reviewing her home medications, she is on Topamax 200 mg b.i.d. and Vimpat 100 mg daily. It is unclear why she is on daily doses of Vimpat as it is a BID medication. PAST MEDICAL HISTORY: Multiple sclerosis, chronic pain syndrome, seizure disorder, asthma, fibromyalgia, gastroesophageal reflux disease, hypertension, interstitial cystitis, polycystic ovarian syndrome, vitamin D deficiency, history of optic neuritis, migraine headaches, history of orthopedic surgeries and cholecystectomy. She also has history of depression and anxiety disorder. SOCIAL HISTORY: The patient is a former smoker. She denies any alcohol or drug use. FAMILY HISTORY: Positive for hypertension. HOME MEDICATIONS: Reviewed in the chart. ALLERGIES: AMOXICILLIN, CIPRO, CODEINE, CEFTIN, LATEX, NSAIDS. REVIEW OF SYSTEMS: CONSTITUTIONAL: Positive for fatigue. EYES: As mentioned above. ENT: Negative. CARDIOVASCULAR: Negative. RESPIRATORY: Negative. NEUROLOGICAL: As mentioned above. GASTROINTESTINAL: Positive for occasional heartburn. GENITOURINARY: As mentioned above. PSYCHIATRIC: Positive for history of depression and anxiety disorder. MUSCULOSKELETAL: As mentioned above. DERMATOLOGICAL: Negative. PHYSICAL EXAM: Vital signs show a temperature of 98.6, pulse 66, respiration 18 , blood pressure 141/82. GENERAL APPEARANCE: The patient is a well-developed female who appears to be in no acute distress. HEENT: Normocephalic, atraumatic. No facial asymmetry is seen. Extraocular muscles are intact. Neck is supple with no masses felt. CARDIOVASCULAR: Regular rate and rhythm. ABDOMEN: Nontender, nondistended. Extremities showed no edema or clubbing. NEUROLOGICAL EXAM: The patient is alert, aware and oriented x3. Speech and language are normal. Strength is 4 out of 5 on the left and 5 out of 5 on the right. Sensory exam showed diminished light touch sensation on the left compared to the right. No facial asymmetry is seen on cranial nerve testing. No tremors or seizure like activity is seen. IMPRESSION: 1. Acute multiple sclerosis exacerbation. 2. Left hemiparesis. 3. Left-sided sensory deficit. 4. Seizure disorder. 5. Chronic pain syndrome. 6. Urinary tract infection. RECOMMENDATION: The patient does appears to be having an acute multiple sclerosis exacerbation and she continues to have weakness and sensory deficit on the left side. I did start her on IV Solu-Medrol 250 mg every 8 hours. Continue Accu-Cheks and sliding scale insulin. I will order an MRI of the brain and cervical spine. Physical therapy will be consulted. As for her history of seizures, I will change her Vimpat dose to the recommended twice daily dosing of 100 mg. I will keep her on her home dose of Topamax. An EEG will be ordered. As for her chronic pain, continue her home dose of her analgesics. Continue neuro checks. As for her urinary tract infection, I do recommend antibiotic therapy, but I would any antibiotic that can reduce seizure threshold. I will continue to follow with you. Further recommendations to follow. Thank you for allowing me to participate in the care of your patient. If you have any questions, please fee free to contact me. [email or web address]
[2017-03-18] MEDS ORDERED: IV VANCOMYCIN PER PHARMACY 1 EACH MISC MISCELLANE PRN (10:00)
[2017-03-18] MEDS ORDERED: VANCOMYCIN 2,000 MG in SODIUM CHLORIDE 0.9% 500 ML IVPB ONE (11:00)
[2017-03-18 11:21] VITALS: BMI 32.2
[2017-03-18] MEDS: LACOSAMIDE 50 MG TABLET PO SCH ×2 (11:35→20:03)
[2017-03-18] MEDS: ENOXAPARIN 40 MG/0.4 ML SYRINGE SQ SCH (11:51)
[2017-03-18 11:52] LABS: Glucose,Whole Blood 146 mg/dL (75-99)
--- NOTE | 2017-03-18 13:14 | P.CONS ---
History of Present Illness - Reason for Consult Consult date: 03/18/17 - Chief Complaint left arm weakness - History of Present Illness 37-year-old female who is known history of MS presents to hospital with increasing weakness to her left hand inside. She is having increasing amounts of weakness and constantly presented to Hospital. She subsequently has been treated with steroids by her neurologist. There is concerns urinary tract infection and sepsis admission and constantly the infectious diseases consultation was requested. She did relate to having some blurring to her vision and significant left-sided weakness. She is denying seizures or loss of consciousness. Denies high-grade fever chills rigors or sweats. Feels very poorly overall. Does have significant complaints of severe pain. This is not new. But has worsened during her current acute flare. Review of Systems onstitutional: Denies chills, Denies fever Eyes: Has had a significant blurring of her vision. No eye pain. Ears, nose, mouth and throat: Denies headache, Denies sore throat Cardiovascular: Denies chest pain, Denies shortness of breath Respiratory: Denies cough Gastrointestinal: Denies significant nausea vomiting aspiration or diarrhea. Denies abdominal pain. Genitourinary: Denies dysuria, Denies hematuria Musculoskeletal: Denies myalgias Integumentary: Denies pruritus, Denies rash Neurological: Significant left-sided weakness and numbness. Psychiatric: Is having difficulty with anxiety and some depression Endocrine: Positive for fatigue, Denies weight change Past Medical History Past Medical History: Asthma, Fibromyalgia, GERD/Reflux, Hypertension, Musculoskeletal Disorder, Neurologic Disorder, Renal Disease, Seizure Disorder Additional Past Medical History / Comment(s): MS,tachcardia Other HX: Multiple Sclerosis, migraines, DJD, interstitial cystitis, UTI, PCOS, vit D deficiency, bilateral optic neuritis with visual problems, UTI, chronic pain, numbness/tingling R side of body. History of Any Multi-Drug Resistant Organisms: C-DIFF Year Discovered:: 12/17/2014 MDRO Source:: stool Past Surgical History: Cholecystectomy, Orthopedic Surgery Additional Past Surgical History / Comment(s): Lt shoulder rotator cuff repair 06/06/14 @ [facility] pt has since re-torn, Arthroscopic left knee 2000 & 2002. ARTHROSCOPY LT SHOULDER. Past Anesthesia/Blood Transfusion Reactions: No Reported Reaction Additional Past Anesthesia/Blood Transfusion Reaction / Comm: Pt has never recieved blood. Past Psychological History: Anxiety, Depression Additional Psychological History / Comment(s): Pt lives with her and their daughter. She is independent. She has MS and when she has a flare up she will use a walker or wheelchair. She drives a car. Smoking Status: Former smoker Past Alcohol Use History: None Reported Additional Past Alcohol Use History / Comment(s): STARTED SMOKING AGE 17 and quit in 2016 but is using vapor cigarette. Patient denies any medical marijuana , marijuana, street drug use. She denies any alcohol use or abuse. Patient is and lives with her and one child. There is a dog in the home. No recent travel. Patient is on disability. Past Drug Use History: None Reported - Past Family History Mother Family Medical History: No Reported History Additional Family Medical History / Comment(s): mother is healthy Father Family Medical History: Hypertension Medications and Allergies Home Medications and Allergies Comment(s): Current Medications Acetaminophen (Tylenol Tab) 650 mg PO Q6HR PRN PRN Reason: Mild Pain or Fever > 100.5 Albuterol/Ipratropium (Duoneb 0.5 Mg-3 Mg/3 Ml Soln) 3 ml INHALATION RT-QID PRN PRN Reason: Shortness Of Breath Last Admin: 03/18/17 11:49 Dose: 3 ml Amlodipine Besylate (Norvasc) 10 mg PO DAILY [facility] Last Admin: 03/18/17 09:00 Dose: 10 mg Atorvastatin Calcium (Lipitor) 10 mg PO DAILY [facility] Last Admin: 03/18/17 08:59 Dose: 10 mg Clopidogrel Bisulfate (Plavix) 75 mg PO DAILY [facility] Last Admin: 03/18/17 08:59 Dose: 75 mg Dicyclomine HCl (Bentyl) 20 mg PO QID PRN PRN Reason: Abdominal Cramps Enoxaparin Sodium (Lovenox) 40 mg SQ DAILY [facility] Last Admin: 03/18/17 11:51 Dose: 40 mg Ergocalciferol (Vitamin D2) 50,000 unit PO Mo@1200 [facility] Last Admin: 03/17/17 20:33 Dose: 50,000 unit Famotidine (Pepcid) 20 mg PO BID [facility] Last Admin: 03/18/17 09:01 Dose: 20 mg Sodium Chloride (Saline 0.9%) 1,000 mls @ 100 mls/hr IV .Q10H [facility] Last Admin: 03/18/17 03:59 Dose: 100 mls/hr Methylprednisolone Sodium Succinate 250 mg/ Sodium Chloride 104 mls @ 208 mls/ hr IVPB Q8HR [facility] Last Admin: 03/18/17 08:56 Dose: 208 mls/hr Vancomycin HCl 2,000 mg/ (Sodium Chloride) 500 mls @ 167 mls/hr IVPB ONCE ONE Stop: 03/18/17 13:59 Last Admin: 03/18/17 11:54 Dose: 167 mls/hr Vancomycin HCl 1,500 mg/ (Sodium Chloride) 250 mls @ 125 mls/hr IVPB Q12HR@1000 ,2200 [facility] Insulin Human Lispro (Humalog) 0 unit SQ AC-TID [facility] PRN Reason: Protocol Last Admin: 03/18/17 11:58 Dose: Not Given Lacosamide (Vimpat) 100 mg PO BID [facility] Last Admin: 03/18/17 11:35 Dose: Not Given Levothyroxine Sodium (Synthroid) 50 mcg PO DAILY@0630 [facility] Last Admin: 03/18/17 06:03 Dose: 50 mcg Lisinopril (Zestril) 10 mg PO DAILY [facility] Last Admin: 03/18/17 09:02 Dose: 10 mg Meclizine HCl (Antivert) 25 mg PO BID PRN PRN Reason: Vertigo Montelukast Sodium (Singulair) 10 mg PO HS [facility] Last Admin: 03/17/17 20:33 Dose: 10 mg Morphine Sulfate (Morphine Sulfate (Inj)) 4 mg IV Q4HR PRN PRN Reason: Severe Pain Last Admin: 03/18/17 08:52 Dose: 4 mg Morphine Sulfate (Ms Contin) 30 mg PO BID PRN PRN Reason: Severe Pain Last Admin: 03/18/17 09:27 Dose: 30 mg Naloxone HCl (Narcan) 0.2 mg IV Q2M PRN PRN Reason: Opioid Reversal Non-Formulary Medication (Dimethyl Fumarate [Tecfidera]) 240 mg PO BID [facility] Non-Formulary Medication (Norgestrel-Ethinyl Estradiol [[id number] Tablet] ) 1 tab PO DAILY [facility] Non-Formulary Medication (Pentosan Polysulfate Sodium [Elmiron]) 100 mg PO TID [facility] Ondansetron HCl (Zofran Odt) 4 mg PO Q8HR PRN PRN Reason: Nausea Last Admin: 03/18/17 11:51 Dose: 4 mg Oxybutynin Chloride (Ditropan) 5 mg PO TID [facility] Last Admin: 03/18/17 09:02 Dose: 5 mg Oxycodone/Acetaminophen (Percocet 10-325) 1 each PO Q4H PRN PRN Reason: Breakthrough Pain Last Admin: 03/18/17 11:50 Dose: 1 each Sertraline HCl (Zoloft) 100 mg PO BID [facility] Last Admin: 03/18/17 09:02 Dose: 100 mg Sumatriptan Succinate (Imitrex) 100 mg PO BID PRN PRN Reason: Migraine Headache Tizanidine HCl (Zanaflex) 8 mg PO QID [facility] Last Admin: 03/18/17 11:59 Dose: 8 mg Topiramate (Topamax) 200 mg PO BID [facility] Last Admin: 03/18/17 09:02 Dose: 200 mg Home Medications Medication Instructions Recorded Confirmed Type Albuterol Inhaler [Ventolin Hfa 2 puff INHALATION RT-QID PRN 12/09/13 03/17/17 History Inhaler] Famotidine [Pepcid] 20 mg PO BID 12/09/13 03/17/17 History Ipratropium/Albuterol Sulfate 1 puff INHALATION RT-QID PRN 12/09/13 03/17/17 History [Combivent Respimat Inhaler] Montelukast [Singulair] 10 mg PO DAILY 12/09/13 03/17/17 History Dimethyl Fumarate [Tecfidera] 240 mg PO BID 07/15/14 03/17/17 History Ondansetron Odt [Zofran ODT] 4 mg PO Q8HR PRN 04/13/15 03/17/17 History Ergocalciferol [Vitamin D2 50,000 unit PO MO 12/24/15 03/17/17 History (DRISDOL)] Meclizine [Antivert] 25 mg PO BID PRN 12/24/15 03/17/17 History Sertraline [Zoloft] 100 mg PO BID 12/24/15 03/17/17 History Lisinopril [Prinivil] 10 mg PO DAILY 01/01/16 03/17/17 History SUMAtriptan SUCCINATE [Imitrex] 100 mg PO BID PRN 01/01/16 03/17/17 History Pentosan Polysulfate Sodium 100 mg PO TID 02/07/16 03/17/17 History [Elmiron] Dicyclomine [Bentyl] 20 mg PO QID PRN 08/09/16 03/17/17 History oxyCODONE-APAP 10-325MG [Percocet 1 tab PO Q4H PRN 08/09/16 03/17/17 History 10-325 mg] tiZANidine [Zanaflex] 8 mg PO QID 08/09/16 03/17/17 History Dextroamphetamine/Amphetamine 30 mg PO DAILY 03/17/17 03/17/17 History [Adderall] Lacosamide [Vimpat] 100 mg PO DAILY 03/17/17 03/17/17 History Morphine Sulfate ER [Ms Contin 30 mg PO BID PRN 03/17/17 03/17/17 History 30Mg] Norgestrel-Ethinyl Estradiol 1 tab PO DAILY 03/17/17 03/17/17 History [[id number] Tablet] Topiramate [Topamax] 200 mg PO BID 03/17/17 03/17/17 History Allergies Allergy/AdvReac Type Severity Reaction Status Date / Time amoxicillin [Amoxicillin] Allergy Severe Anaphylaxis, Verified 01/31/17 12:02 seizures ciprofloxacin [From Cipro] Allergy Severe Rash/Hives, Verified 01/31/17 12:02 seizures codeine phosphate Allergy Unknown Rash/Hives Verified 01/31/17 12:02 [From Tylenol-Codeine #3] cefuroxime axetil Allergy Rash/Hives Verified 01/31/17 12:02 [From Ceftin] latex Allergy Rash/Hives Verified 01/31/17 12:02 NSAIDS (Non-Steroidal Allergy Rash/Hives/Lip Verified 03/17/17 16:23 Anti-Inflamma Swelling Physical Exam Vitals: Vital Signs Temp Pulse Pulse Resp BP BP Pulse Ox 03/18/17 12:00 96 16 99/57 97 03/18/17 11:49 104 H 03/18/17 08:32 118 H 98 03/18/17 08:22 116 H 03/18/17 08:00 96.1 F L 132 H 16 124/81 98 03/18/17 04:00 97.6 F 111 H 16 129/77 98 03/18/17 00:00 98.7 F 114 H 18 105/63 97 03/17/17 22:08 97.9 F 125 H 18 132/91 98 03/17/17 20:00 97.9 F 125 H 18 132/91 98 03/17/17 19:10 68 16 120/66 97 03/17/17 18:05 141/82 03/17/17 16:59 98.6 F 66 18 151/112 98 03/17/17 14:35 98.1 F 128 H 20 167/125 98 Intake and Output 03/17/17 03/18/17 03/18/17 22:59 06:59 14:59 Intake Total 1000 1400 Balance 1000 1400 Intake: IV 1000 700 Meropenem 1 gm In Sodium 100 100 Chloride 0.9% 100 ml @ 200 mls/hr IVPB Q8HR [facility] Rx#:[id number] Sodium Chloride 0.9% 1, 800 500 000 ml @ 100 mls/hr IV . Q10H [facility] Rx#:[id number] methylPREDNISolone SOD 100 100 SUCCI 250 mg In Sodium Chloride 0.9% 100 ml @ 208 mls/hr IVPB Q8HR [facility] Rx#:[id number] Intake, IV Titration 500 Amount Vancomycin 2,000 mg In 500 Sodium Chloride 0.9% 500 ml @ 167 mls/hr IVPB ONCE ONE Rx#:[id number] Oral 200 Other: # Voids 0 2 Weight 90.718 kg 90.5 kg 90.5 kg Patient Weight 03/19/17 06:59 Weight 90.5 kg Gen: This is a 37 year-old female. She is lying in bed and appears to be in no acute distress. She does complain of feeling uncomfortable. Is complaining of severe back pain leg pain and some headache. She also complains of the visual change. HEENT: Head is atraumatic, normocephalic. Pupils equal, round. Sclerae is anicteric. Mild facial flushing NECK: Supple. No JVD. No lymphadenopathy. No thyromegaly. LUNGS: Clear to auscultation. No wheezes or rhonchi. No intercostal retractions. HEART: Regular rate and rhythm. No murmur. ABDOMEN: Soft. Bowel sounds are present. No masses. Positive generalized abdominal tenderness. EXTREMITIES: No pedal edema. No calf tenderness. Dorsalis pedis is +2 bilaterally NEUROLOGICAL: Patient is awake, alert and oriented person and place no confusion but does have visual change. This is, when she has worsening of her optic neuritis. Results CBC & Chem 7: 03/18/17 05:41 03/18/17 05:41 Labs: Abnormal Lab Results - Last 24 Hours (Table) 03/17/17 03/17/17 03/17/17 Range/Units 15:28 15:28 15:46 WBC 17.3 H (3.8-10.6) k/uL Plt Count 492 H (150-450) k/uL Neutrophils # 13.3 H (1.3-7.7) k/uL Chloride (98-107) mmol/L Carbon Dioxide 19 L (22-30) mmol/L Glucose (74-99) mg/dL POC Glucose (mg/dL) (75-99) mg/dL AST (14-36) U/L Urine Appearance Turbid H (Clear) Urine Protein 2+ H (Negative) Urine Ketones Trace H (Negative) Urine Blood Trace H (Negative) Ur Leukocyte Esterase Moderate H (Negative) Urine RBC 8 H (0-5) /hpf Urine WBC 50 H (0-5) /hpf Urine Bacteria Rare H (None) /hpf Urine Opiates Screen (NotDetected) Ur Oxycodone Screen (NotDetected) U Benzodiazepines Scrn (NotDetected) 03/17/17 03/17/17 03/18/17 Range/Units 15:46 21:02 05:41 WBC 18.4 H (3.8-10.6) k/uL Plt Count 476 H (150-450) k/uL Neutrophils # 16.8 H (1.3-7.7) k/uL Chloride (98-107) mmol/L Carbon Dioxide (22-30) mmol/L Glucose (74-99) mg/dL POC Glucose (mg/dL) 184 H (75-99) mg/dL AST (14-36) U/L Urine Appearance (Clear) Urine Protein (Negative) Urine Ketones (Negative) Urine Blood (Negative) Ur Leukocyte Esterase (Negative) Urine RBC (0-5) /hpf Urine WBC (0-5) /hpf Urine Bacteria (None) /hpf Urine Opiates Screen Detected H (NotDetected) Ur Oxycodone Screen Detected H (NotDetected) U Benzodiazepines Scrn Detected H (NotDetected) 03/18/17 03/18/17 03/18/17 Range/Units 05:41 05:45 11:48 WBC (3.8-10.6) k/uL Plt Count (150-450) k/uL Neutrophils # (1.3-7.7) k/uL Chloride 110 H (98-107) mmol/L Carbon Dioxide 17 L (22-30) mmol/L Glucose 128 H (74-99) mg/dL POC Glucose (mg/dL) 135 H 146 H (75-99) mg/dL AST 13 L (14-36) U/L Urine Appearance (Clear) Urine Protein (Negative) Urine Ketones (Negative) Urine Blood (Negative) Ur Leukocyte Esterase (Negative) Urine RBC (0-5) /hpf Urine WBC (0-5) /hpf Urine Bacteria (None) /hpf Urine Opiates Screen (NotDetected) Ur Oxycodone Screen (NotDetected) U Benzodiazepines Scrn (NotDetected) Microbiology - Last 24 Hours (Table) 03/17/17 15:28 Blood Culture Gram Stain - Preliminary Blood 03/17/17 15:28 Blood Culture - Final Blood Laboratory Results WBC 18.4 k/uL (3.8-10.6) H 03/18/17 05:41 RBC 4.75 m/uL (3.80-5.40) 03/18/17 05:41 Hgb 13.8 gm/dL (11.4-16.0) 03/18/17 05:41 Hct 44.0 % (34.0-46.0) 03/18/17 05:41 MCV 92.7 fL (80.0-100.0) 03/18/17 05:41 MCH 29.1 pg (25.0-35.0) 03/18/17 05:41 MCHC 31.4 g/dL (31.0-37.0) 03/18/17 05:41 RDW 12.9 % (11.5-15.5) 03/18/17 05:41 Plt Count 476 k/uL (150-450) H 03/18/17 05:41 Neutrophils % 91 % 03/18/17 05:41 Lymphocytes % 7 % 03/18/17 05:41 Monocytes % 1 % 03/18/17 05:41 Eosinophils % 0 % 03/18/17 05:41 Basophils % 0 % 03/18/17 05:41 Neutrophils # 16.8 k/uL (1.3-7.7) H 03/18/17 05:41 Lymphocytes # 1.3 k/uL (1.0-4.8) 03/18/17 05:41 Monocytes # 0.2 k/uL (0-1.0) 03/18/17 05:41 Eosinophils # 0.0 k/uL (0-0.7) 03/18/17 05:41 Basophils # 0.0 k/uL (0-0.2) 03/18/17 05:41 Hypochromasia Slight 03/18/17 05:41 PT 11.0 sec (9.0-12.0) 03/17/17 15:28 INR 1.1 (<1.2) 03/17/17 15:28 APTT 23.2 sec (22.0-30.0) 03/17/17 15:28 Sodium 141 mmol/L (137-145) 03/18/17 05:41 Potassium 4.9 mmol/L (3.5-5.1) 03/18/17 05:41 Chloride 110 mmol/L (98-107) H 03/18/17 05:41 Carbon Dioxide 17 mmol/L (22-30) L 03/18/17 05:41 Anion Gap 14 mmol/L 03/18/17 05:41 BUN 15 mg/dL (7-17) 03/18/17 05:41 Creatinine 0.72 mg/dL (0.52-1.04) 03/18/17 05:41 Est GFR (MDRD) Af Amer >60 (>60 ml/min/1.73 sqM) 03/18/17 05:41 Est GFR (MDRD) Non-Af >60 (>60 ml/min/1.73 sqM) 03/18/17 05:41 Glucose 128 mg/dL (74-99) H 03/18/17 05:41 POC Glucose (mg/dL) 146 mg/dL (75-99) H 03/18/17 11:48 POC Glu Role Player ID Elizabeth Alicea 03/18/17 11:[address] Glu mg/dL 117 mg/dL 03/17/17 15:28 Hemoglobin A1c 5.7 % (4.2-6.1) 03/17/17 15:28 Plasma Lactic Acid Tom 1.3 mmol/L (0.7-2.0) 03/17/17 15:46 Calcium 9.8 mg/dL (8.4-10.2) 03/18/17 05:41 Total Bilirubin 0.3 mg/dL (0.2-1.3) 03/18/17 05:41 AST 13 U/L (14-36) L 03/18/17 05:41 ALT 32 U/L (9-52) 03/18/17 05:41 Alkaline Phosphatase 46 U/L (38-126) 03/18/17 05:41 Total Creatine Kinase 50 U/L (30-135) 03/17/17 15:28 CK-MB (CK-2) 0.4 ng/mL (0.0-2.4) 03/17/17 15:28 CK-MB (CK-2) Rel Index 0.8 03/17/17 15:28 Troponin I <0.012 ng/mL (0.000-0.034) 03/17/17 15:28 Total Protein 6.8 g/dL (6.3-8.2) 03/18/17 05:41 Albumin 4.1 g/dL (3.5-5.0) 03/18/17 05:41 TSH 1.070 mIU/L (0.465-4.680) 03/17/17 15:28 Urine Color Yellow 03/17/17 15:46 Urine Appearance Turbid (Clear) H 03/17/17 15:46 Urine pH 6.0 (5.0-8.0) 03/17/17 15:46 Ur Specific [place] 1.018 (1.001-1.035) 03/17/17 15:46 Urine Protein 2+ (Negative) H 03/17/17 15:46 Urine Glucose (UA) Negative (Negative) 03/17/17 15:46 Urine Ketones Trace (Negative) H 03/17/17 15:46 Urine Blood Trace (Negative) H 03/17/17 15:46 Urine Nitrite Negative (Negative) 03/17/17 15:46 Urine Bilirubin Negative (Negative) 03/17/17 15:46 Urine Urobilinogen <2.0 mg/dL (<2.0) 03/17/17 15:46 Ur Leukocyte Esterase Moderate (Negative) H 03/17/17 15:46 Urine RBC 8 /hpf (0-5) H 03/17/17 15:46 Urine WBC 50 /hpf (0-5) H 03/17/17 15:46 Ur Squamous Epith Cells <1 /hpf (0-4) 03/17/17 15:46 Urine Bacteria Rare /hpf (None) H 03/17/17 15:46 Urine Opiates Screen Detected (NotDetected) H 03/17/17 15:46 Ur Oxycodone Screen Detected (NotDetected) H 03/17/17 15:46 Urine Methadone Screen Not Detected (NotDetected) 03/17/17 15:46 Ur Propoxyphene Screen Not Detected (NotDetected) 03/17/17 15:46 Ur Barbiturates Screen Not Detected (NotDetected) 03/17/17 15:46 U Tricyclic Antidepress Not Detected (NotDetected) 03/17/17 15:46 Ur Phencyclidine Scrn Not Detected (NotDetected) 03/17/17 15:46 Ur Amphetamines Screen Not Detected (NotDetected) 03/17/17 15:46 U Methamphetamines Scrn Not Detected (NotDetected) 03/17/17 15:46 U Benzodiazepines Scrn Detected (NotDetected) H 03/17/17 15:46 Urine Cocaine Screen Not Detected (NotDetected) 03/17/17 15:46 U Marijuana (THC) Screen Not Detected (NotDetected) 03/17/17 15:46 Comments: Chest x-ray negative MRI reviewed no acute changes Assessment and Plan (1) Multiple sclerosis exacerbation Status: Acute (2) Gram-positive cocci bacteremia Narrative/Plan: 37-year-old female presents to hospital with the several-day history of worsening of her MS symptoms. Her pain also was markedly increasing. She Presented Emergency Center Has Been Admitted for a Flare of Her MS. She's Been Seen by Her Neurologist. Steroid Fusions Have Begun. Her Other Medications Are Continuing As Prior. Pain Control Is an Issue for the Patient and Anesthesia Services Have Been Consulted. A possible culture has been noted with gram-positive cocci. Concern would be to this is underlying etiology of the flare her MS. Also be concerned about potential contamination. For now antibiotic therapy with vancomycin is being utilized. Follow blood cultures are requested. Ongoing supportive care. I do relate to the patient that I cannot change her pain medications that will need to come from the pain management service. She is one of our advanced beds and overlays are not indicated with this mattress. She was concerned about a urinary infection. She barely has been treated for a UTI. Urinalysis is still abnormal. Urine culture is in process. Will be monitored. Status: Acute
--- NOTE | 2017-03-18 15:01 | P.PN ---
Subjective Principal diagnosis: Patient is a pleasant 37-year-old female who is being followed by the neurology service for multiple sclerosis exacerbation. Patient has a long history of multiple sclerosis and is taking Tecfidera twice daily. Patient came to the emergency room with left sided weakness which was not resolving. Computed tomography scan of the brain showed changes consistent with multiple sclerosis. Patient also has history of chronic pain. Patient is on multiple analgesics at home for her chronic pain. Patient also reports history of seizure disorder. Patient continues on IV Solu-Medrol and reports minimal resolution of symptoms. At the time of my evaluation, she is resting comfortably in bed and appears to be in no acute distress. Objective - Vital Signs Vital signs: Vital Signs Temp 96.1 F L 03/18/17 08:00 Pulse 96 03/18/17 12:00 Resp 16 03/18/17 12:00 BP 99/57 03/18/17 12:00 Pulse Ox 97 03/18/17 12:00 Intake & Output 03/17/17 03/18/17 03/18/17 18:59 06:59 18:59 Intake Total 1000 1620 Balance 1000 1620 Weight 90.718 kg 90.5 kg 90.5 kg Intake: IV 1000 700 Meropenem 1 gm In Sodium 100 100 Chloride 0.9% 100 ml @ 200 mls/hr IVPB Q8HR [facility] Rx#:[id number] Sodium Chloride 0.9% 1, 800 500 000 ml @ 100 mls/hr IV . Q10H [facility] Rx#:[id number] methylPREDNISolone SOD 100 100 SUCCI 250 mg In Sodium Chloride 0.9% 100 ml @ 208 mls/hr IVPB Q8HR [facility] Rx#:[id number] Intake, IV Titration 500 Amount Vancomycin 2,000 mg In 500 Sodium Chloride 0.9% 500 ml @ 167 mls/hr IVPB ONCE ONE Rx#:[id number] Oral 420 Other: # Voids 2 - Exam PHYSICAL EXAM: GENERAL APPEARANCE: Patient is a well-developed, female who appears to be in no acute distress. HEENT: Normocephalic, atraumatic, no facial asymmetry is seen. Neck is supple with no masses felt. CARDIOVASCULAR: Regular rate and rhythm. ABDOMEN: Nontender, nondistended. EXTREMITIES: Show no edema or clubbing. NEUROLOGICAL EXAM: Patient is awake, alert, and oriented 3. Speech and language are normal. Strength is 5/5 on the right and 4/5 on the left upper and lower extremity. Sensory exam is diminished to light touch on the left as compared to the right. No facial asymmetry is seen on cranial nerve testing. No tremors or seizure-like activity is seen. - Labs CBC & Chem 7: 03/18/17 05:41 03/18/17 05:41 Labs: Abnormal Lab Results - Last 24 Hours (Table) 03/17/17 03/17/17 03/17/17 Range/Units 15:28 15:28 15:46 WBC 17.3 H (3.8-10.6) k/uL Plt Count 492 H (150-450) k/uL Neutrophils # 13.3 H (1.3-7.7) k/uL Chloride (98-107) mmol/L Carbon Dioxide 19 L (22-30) mmol/L Glucose (74-99) mg/dL POC Glucose (mg/dL) (75-99) mg/dL AST (14-36) U/L Urine Appearance Turbid H (Clear) Urine Protein 2+ H (Negative) Urine Ketones Trace H (Negative) Urine Blood Trace H (Negative) Ur Leukocyte Esterase Moderate H (Negative) Urine RBC 8 H (0-5) /hpf Urine WBC 50 H (0-5) /hpf Urine Bacteria Rare H (None) /hpf Urine Opiates Screen (NotDetected) Ur Oxycodone Screen (NotDetected) U Benzodiazepines Scrn (NotDetected) 03/17/17 03/17/17 03/18/17 Range/Units 15:46 21:02 05:41 WBC 18.4 H (3.8-10.6) k/uL Plt Count 476 H (150-450) k/uL Neutrophils # 16.8 H (1.3-7.7) k/uL Chloride (98-107) mmol/L Carbon Dioxide (22-30) mmol/L Glucose (74-99) mg/dL POC Glucose (mg/dL) 184 H (75-99) mg/dL AST (14-36) U/L Urine Appearance (Clear) Urine Protein (Negative) Urine Ketones (Negative) Urine Blood (Negative) Ur Leukocyte Esterase (Negative) Urine RBC (0-5) /hpf Urine WBC (0-5) /hpf Urine Bacteria (None) /hpf Urine Opiates Screen Detected H (NotDetected) Ur Oxycodone Screen Detected H (NotDetected) U Benzodiazepines Scrn Detected H (NotDetected) 03/18/17 03/18/17 03/18/17 Range/Units 05:41 05:45 11:48 WBC (3.8-10.6) k/uL Plt Count (150-450) k/uL Neutrophils # (1.3-7.7) k/uL Chloride 110 H (98-107) mmol/L Carbon Dioxide 17 L (22-30) mmol/L Glucose 128 H (74-99) mg/dL POC Glucose (mg/dL) 135 H 146 H (75-99) mg/dL AST 13 L (14-36) U/L Urine Appearance (Clear) Urine Protein (Negative) Urine Ketones (Negative) Urine Blood (Negative) Ur Leukocyte Esterase (Negative) Urine RBC (0-5) /hpf Urine WBC (0-5) /hpf Urine Bacteria (None) /hpf Urine Opiates Screen (NotDetected) Ur Oxycodone Screen (NotDetected) U Benzodiazepines Scrn (NotDetected) Microbiology - Last 24 Hours (Table) 03/17/17 15:28 Blood Culture Gram Stain - Preliminary Blood 03/17/17 15:28 Blood Culture - Final Blood Assessment and Plan Plan: Impression: 1. Acute exacerbation of multiple sclerosis. 2. Left hemiparesis 3. Left sided sensory deficit 4. Seizure disorder 5. Chronic pain syndrome 6. Urinary tract infection Recommendation: Patient continues to have weakness and sensory deficit on the left side. She continues on IV Solu-Medrol at 250 mg every 8 hours. Patient reports minimal resolution of symptoms as of yet. Patient had MRI of the brain which showed no acute intracranial abnormality. MRI was compared to MRI of 2014 and shows new encephalomalacia and progressive gliosis in the right occipital lobe as compared to 2014. This could be product of traumatic or vascular insult. White matter changes are largely stable and no enhancing or active demyelinating plaques are seen. I recommend continuing physical therapy. No seizure activity has been reported. Continue current seizure medication dosing. EEG has been ordered. As for her chronic pain, patient is asking for increase in analgesics. I advise patient this would come from pain management. Continue neurological checks. Continue antibiotic therapy for urinary tract infection. Evaluation of relapses and disease modifying agents for multiple sclerosis can be done as an outpatient. I will continue to follow with you. Further recommendations to follow. I performed an examination of the patient and discussed the management with the INSTRUCTIONAL MATERIAL DIRECTOR. I have reviewed the INSTRUCTIONAL MATERIAL DIRECTOR notes and agree with the findings and plan of care.
[2017-03-18 17:00] LABS: Glucose,Whole Blood 168 mg/dL (75-99)
[2017-03-18] MEDS: ONDANSETRON 4 MG/2 ML VIAL IVP PRN (18:04)
[2017-03-18] MEDS: MONTELUKAST 10 MG TAB PO SCH (20:01)
[2017-03-18 20:53] LABS: Glucose,Whole Blood 172 mg/dL (75-99)
[2017-03-18] MEDS: VANCOMYCIN 1,500 MG in SODIUM CHLORIDE 0.9% 250 ML IVPB SCH (21:48)
[2017-03-18] MEDS ORDERED: MELATONIN 3 MG TABLET PO SCH (22:15)
[2017-03-19] MEDS: oxyCODONE-APAP 10-325MG 1 EACH TAB PO PRN ×5 (00:10→20:56)
[2017-03-19] MEDS: methylPREDNISolone SOD SUCCI 250 MG in SODIUM CHLORIDE 0.9% 100 ML IVPB SCH ×4 (00:19→23:35)
[2017-03-19] MEDS: MORPHINE SULFATE 4 MG/ML SYRINGE IV PRN ×2 (02:38→07:05)
[2017-03-19] MEDS: ONDANSETRON 4 MG/2 ML VIAL IVP PRN ×3 (02:44→17:20)
[2017-03-19 06:05] LABS: Glucose,Whole Blood 144 mg/dL (75-99)
[2017-03-19] MEDS: SODIUM CHLORIDE 0.9% 1,000 ML IV SCH ×2 (06:09→14:03)
[2017-03-19 06:11] LABS: Basophils % (A) 0 %; CH 28.5; CHCM 31.6; Eosinophils % (A) 0 %; HDW 2.36; HGB 11.7 gm/dL (11.4-16.0); Luc # (Auto) 0.07; Luc % (Auto) 0; Lymphocytes # (A) 1.6 k/uL (1.0-4.8); Lymphocytes % (A) 5 %; MCH 28.6 pg (25.0-35.0); MCHC 31.5 g/dL (31.0-37.0); MCV 90.8 fL (80.0-100.0); Mean Platelet Volume 7.1; Monocytes # (A) 0.5 k/uL (0-1.0); Monocytes % (A) 1 %; Neutrophils # (A) 30.9 k/uL (1.3-7.7); Neutrophils % (A) 94 %; RBC 4.07 m/uL (3.80-5.40)
[2017-03-19 06:21] LABS: Anion Gap 10 mmol/L; Blood Urea Nitrogen 14 mg/dL (7-17); Calcium 9.5 mg/dL (8.4-10.2); Carbon Dioxide 20 mmol/L (22-30); Chloride 111 mmol/L (98-107); Glucose 133 mg/dL (74-99); Non-African American GFR(MDRD) >60 (>60 ml/min/1.73 sqM); Potassium 4.2 mmol/L (3.5-5.1); Sodium 141 mmol/L (137-145)
[2017-03-19] MEDS: LEVOTHYROXINE 50 MCG TAB PO SCH (06:47)
[2017-03-19] MEDS: INSULIN LISPRO (humaLOG) 300 UNIT/3 ML VIAL SQ SCH ×3 (06:47→17:53)
[2017-03-19] MEDS: FAMOTIDINE 20 MG TAB PO SCH ×2 (08:22→20:55)
[2017-03-19] MEDS: OXYBUTYNIN CHLORIDE 5 MG TAB PO SCH ×3 (08:22→20:55)
[2017-03-19] MEDS: SERTRALINE 100 MG TAB PO SCH ×2 (08:22→20:55)
[2017-03-19] MEDS: CLOPIDOGREL 75 MG TAB PO SCH (08:22)
[2017-03-19] MEDS: TOPIRAMATE 100 MG TAB PO SCH ×2 (08:22→20:55)
[2017-03-19] MEDS: ENOXAPARIN 40 MG/0.4 ML SYRINGE SQ SCH (08:23)
[2017-03-19] MEDS: tiZANidine 4 MG TAB PO SCH ×4 (08:23→20:55)
[2017-03-19] MEDS: ATORVASTATIN 10 MG TAB PO SCH (08:25)
[2017-03-19] MEDS: LISINOPRIL 10 MG TAB PO SCH (08:26)
[2017-03-19] MEDS: LACOSAMIDE 50 MG TABLET PO SCH ×2 (08:35→20:55)
[2017-03-19] MEDS: IPRATROPIUM-ALBUTEROL 3 ML NEB INHALATION PRN ×3 (08:39→20:17)
[2017-03-19] MEDS: VANCOMYCIN 1,500 MG in SODIUM CHLORIDE 0.9% 250 ML IVPB SCH ×2 (10:23→21:24)
--- NOTE | 2017-03-19 10:54 | P.CON ---
Consult Note - . Consult date: 03/19/17 Assessment/Plan:: Patient seen and evaluated; chart reviewed, medical/surgical/family/social history and allergies also reviewed. Ms. Uriarte is a 37-year-old female with a long history of multiple sclerosis who presented to the ER with weakness that has been deemed an exacerbation of her MS. She was previously seen in our pain clinic, last in October 2014, and was discharged from our office for obtaining opioids from multiple providers and violating our opioid agreement. Review of notes from that time demonstrated that she underwent occipital nerve blocks, cervical paraspinal trigger point injections, and left sided cervical medial branch radiofrequency ablation. At home, patient takes MSContin and high-dose Percocet and is requesting stronger medications for her acute pain. She is also taking Plavix, although the reason for this is unclear as she does not have history of CVA or LA. As this is an acute pain exacerbation, I do not recommend increasing any of the patient's chronic opioid therapies, and she has a pain physician who prescribes her medications regularly. Due to the fact that Plavix is documented as being taken in her medication administration record and due to the fact that she is currently being treated for an infection, she is not a candidate for any interventional procedures at this point either. Thus, at this point, I recommend treatment of her underlying conditions: multiple sclerosis and UTI, and altering her breakthrough medication, which is currently IV morphine. I will change this to IV Dilaudid 1 mg every 4 hours as needed for breakthrough pain and also order a lidocaine patch to be placed over her painful areas. Patient would also likely do well with IV NSAIDs, to be ordered by primary service if OK with them and if no other contraindications ( patient is already receiving IV steroids). I made it very clear to Ms. Uriarte that our pain clinic physicians will no longer be able to prescribe any opioid medications for her, now or in the future , but that she may return if she wishes to have us do some interventions later on. Thank you for the consult. In records review, patient interview, etc, I spent approximately 45 minutes in the care of this patient.
[2017-03-19] MEDS: HYDROmorphone 1 MG/ML 1 ML SYRINGE IVP PRN ×4 (11:18→23:35)
[2017-03-19 11:46] LABS: Glucose,Whole Blood 136 mg/dL (75-99)
[2017-03-19] MEDS: amLODIPine 10 MG TAB PO SCH (13:05)
[2017-03-19] MEDS: LIDOCAINE 5% PATCH TOPICAL SCH (13:08)
[2017-03-19] MEDS: SUMAtriptan SUCCINATE 50 MG TAB PO PRN (14:13)
--- NOTE | 2017-03-19 16:05 | P.PN ---
Subjective Principal diagnosis: Patient is a pleasant 37-year-old female who is being followed by the neurology service for multiple sclerosis exacerbation. Patient has a long history of multiple sclerosis and is taking Tecfidera twice daily. Patient came to the emergency room with left sided weakness which was not resolving. Computed tomography scan of the brain showed changes consistent with multiple sclerosis. Patient also has history of chronic pain. Patient is on multiple analgesics at home for her chronic pain. Patient also reports history of seizure disorder. Patient continues on IV Solu-Medrol and reports minimal resolution of symptoms. At the time of my evaluation, she is resting comfortably in bed and appears to be in no acute distress. 03/19/2017 Patient is a pleasant 37-year-old female who is being followed by the neurology service for multiple sclerosis exacerbation. Patient denies any improvement in symptoms however left-sided weakness has improved on physical exam. ID is following for UTI. WBCs are elevated at 33 but likely steroids are contributing to this. Cultures are pending. Pain management note appreciated. At the time of my evaluation, patient's resting comfortably in bed and appears to be in no acute distress. Objective - Vital Signs Vital signs: Vital Signs Temp 97.2 F L 03/19/17 15:36 Pulse 110 H 03/19/17 15:36 Resp 18 03/19/17 15:36 BP 108/57 03/19/17 15:36 Pulse Ox 97 03/19/17 15:36 Intake & Output 03/18/17 03/19/17 03/19/17 18:59 06:59 18:59 Intake Total 4043 091 8319 Balance 9229 658 6139 Weight 90.5 kg 101.7 kg Intake: IV 512 558 4809 Meropenem 1 gm In Sodium 100 Chloride 0.9% 100 ml @ 200 mls/hr IVPB Q8HR [facility] Rx#:[id number] Sodium Chloride 0.9% 1, 500 1600 000 ml @ 100 mls/hr IV . Q10H [facility] Rx#:[id number] Vancomycin 1,500 mg In 250 250 Sodium Chloride 0.9% 250 ml @ 125 mls/hr IVPB Q12HR@1000,2200 [facility] Rx#: [id number] methylPREDNISolone SOD 100 100 100 SUCCI 250 mg In Sodium Chloride 0.9% 100 ml @ 208 mls/hr IVPB Q8HR [facility] Rx#:[id number] Intake, IV Titration 500 Amount Vancomycin 2,000 mg In 500 Sodium Chloride 0.9% 500 ml @ 167 mls/hr IVPB ONCE ONE Rx#:[id number] Oral 620 236 Other: Voiding Method Toilet Toilet # Voids 1 1 - Exam PHYSICAL EXAM: GENERAL APPEARANCE: Patient is a well-developed, female who appears to be in no acute distress. HEENT: Normocephalic, atraumatic, no facial asymmetry is seen. Neck is supple with no masses felt. CARDIOVASCULAR: Regular rate and rhythm. ABDOMEN: Nontender, nondistended. EXTREMITIES: Show no edema or clubbing. NEUROLOGICAL EXAM: Patient is awake, alert, and oriented 3. Speech and language are normal. Strength is 5/5 on the right and 4/5 on the left upper and lower extremity. Sensory exam is diminished to light touch on the left as compared to the right. No facial asymmetry is seen on cranial nerve testing. No tremors or seizure-like activity is seen. - Labs CBC & Chem 7: 03/19/17 05:28 03/19/17 05:28 Labs: Abnormal Lab Results - Last 24 Hours (Table) 03/18/17 03/18/17 03/19/17 Range/Units 16:52 20:52 05:28 WBC 33.0 H* (3.8-10.6) k/uL Neutrophils # 30.9 H (1.3-7.7) k/uL Chloride (98-107) mmol/L Carbon Dioxide (22-30) mmol/L Glucose (74-99) mg/dL POC Glucose (mg/dL) 168 H 172 H (75-99) mg/dL 03/19/17 03/19/17 03/19/17 Range/Units 05:28 06:03 11:41 WBC (3.8-10.6) k/uL Neutrophils # (1.3-7.7) k/uL Chloride 111 H (98-107) mmol/L Carbon Dioxide 20 L (22-30) mmol/L Glucose 133 H (74-99) mg/dL POC Glucose (mg/dL) 144 H 136 H (75-99) mg/dL Microbiology - Last 24 Hours (Table) 03/17/17 15:28 Blood Culture Gram Stain - Preliminary Blood Blood Culture - Preliminary Coagulase Negative Staph Assessment and Plan Plan: Impression: 1. Acute exacerbation of multiple sclerosis. 2. Left hemiparesis 3. Left sided sensory deficit 4. Seizure disorder 5. Chronic pain syndrome 6. Urinary tract infection Recommendation: Patient continues to have weakness and sensory deficit on the left side. She continues on IV Solu-Medrol at 250 mg every 8 hours. I recommend one more day of IV steroids. Patient reports minimal resolution of symptoms as of yet. If patient is to be discharged, a Medrol dosepak taper would be appropriate. I recommend continuing physical therapy. No seizure activity has been reported. Continue current seizure medication dosing. EEG has been ordered but not yet performed. As for her chronic pain, patient was seen by pain management and their note is appreciated. Continue neurological checks. Continue antibiotic therapy for urinary tract infection. Patient may need short stay at inpatient rehab facility. Evaluation of disease modifying agents for multiple sclerosis can be done as an outpatient. I will continue to follow with you. Further recommendations to follow. I performed an examination of the patient and discussed the management with the STEEL SASH ERECTOR. I have reviewed the STEEL SASH ERECTOR notes and agree with the findings and plan of care.
[2017-03-19 16:41] LABS: Glucose,Whole Blood 176 mg/dL (75-99)
--- NOTE | 2017-03-19 17:08 | P.PN ---
<Joslyn Ramírez - Last Filed: 03/19/17 16:55> Progress Note - Text DATE OF SERVICE: 03/18/2017 PRESENTING COMPLAINT: Weakness on the left side INTERVAL HISTORY: 37-year-old patient with a history of MS presents with an exacerbation of MS. History of anxiety and depression as well as urinary difficulty. 03/18/2017: Patient lying in bed, resting quietly, appears comfortable. Once awoken complains of pain is not relieved with current pain medication regimen. Await input from pain management. Making many suggestions regarding IV medications that might be helpful. Requesting something for sleep as well. Tolerating her diet, last BM yesterday. REVIEW OF SYSTEMS: Done for constitutional ,cardiovascular, GI, pulmonary with relevant findings as above. CURRENT MEDICATIONS Norvasc, Lipitor, Plavix, Bentyl, Pepcid, methylprednisolone, MS Contin, Tecfidera,Elmiron, Ditropan, Zoloft, Imitrex, Zanaflex, Topamax. PHYSICAL EXAM VITAL SIGNS: Temperature 96.1, heart rate 116, respirations 16, blood pressure 124/81, oxygen saturation 98% on 2 L. GENERAL APPEARANCE: Lying in bed, anxious appearing . EYES: Pupils equal. Conjunctiva normal. NECK: JVD not raised. Mass not palpable. RESPIRATORY: Respiratory effort normal. Lungs clear to auscultation. CARDIOVASCULAR: First and second sounds normal. No edema. ABDOMEN: Soft. Liver and spleen not palpable. No tenderness. No mass palpable. PSYCHIATRY: Alert and oriented x3. Mood and affect anxious appearing NEUROLOGICAL: Cranial nerves grossly intact. No facial asymmetry. Power in the left arm and left leg 3/5 with some decreased sensation. INVESTIGATIONS: White blood cell count 18.4, sodium 141, potassium 4.9, Accu-Cheks noted Blood culture gram-positive cocci in clusters. MRI of the brain: No acute intracranial abnormality seen Encephalomalacia progressive gliosis in the right occipital lobe compared 2014. Mild to moderate scattered foci of T2 bright bilateral change in keeping with patient's known MS., The white matter changes are largely stable. Reference lesion #2 above within the right frontal paraventricular white matter is slightly larger than when compared to 2014 no enhancing/actively demyelinating plaques seen ASSESSMENT: -Acute exacerbation of multiple sclerosis -Chronic pain syndrome with some acute flareup -Acute UTI -Hypothyroid -Hyper lipidemia -GERD -Obesity with BMI 32.3 -Chronic fibromyalgia -GERD -Essential hypertension -Anxiety depression not otherwise specified PLAN: Continue current seizure medication dosing, EEG ordered, await input from pain management. Continue Antibiotics for urinary tract infection. WOOL CLEANER statement: Patient was seen and examined by nurse practitioner Joslyn Ramírez and all elements of the case discussed with attending Dr. Lloyd <Mark Lloyd - Last Filed: 03/23/17 12:06> Progress Note - Text Attending note. Date of service-03/18/2017 This patient was seen and examined by me . I reviewed the note of my nurse practitioner, Ms. Ramírez. Discussed with her, additional findings as below. Patient admitted with MS exacerbation. On IV Solu-Medrol. Complaining of pain. I did inform the patient that pain service was consulted last night and this morning the been called to adjust her pain medications. Though when I walked in patient appears rather comfortable this also noticed by the staff. On examination: Power of the left side 3/5. He should have appears comfortable. Lungs-clear Investigations: White count 18.4 potassium 4.9. MRI results noted Assessment and plan: Acute exacerbation of MS on IV Solu-Medrol. Patient appears rather comfortable. Told the nurse to contact pain services again to address pain management for the patient. In my assessment patient does not need the pain medications she is asking for.
[2017-03-19] MEDS: MORPHINE SULFATE ER 30 MG TABLET PO PRN (17:19)
--- NOTE | 2017-03-19 17:40 | P.PN ---
<Joslyn Ramírez - Last Filed: 03/19/17 16:53> Progress Note - Text DATE OF SERVICE: 03/19/2017 PRESENTING COMPLAINT: Weakness on the left side INTERVAL HISTORY: 37-year-old patient with a history of MS presents with an exacerbation of MS. History of anxiety and depression as well as urinary difficulty. 03/18/2017: Patient lying in bed, resting quietly with eyes closed, appears comfortable. Once awoken complains of pain is not relieved with current pain medication regimen. Await input from pain management. Making many suggestions regarding IV medications that might be helpful. Requesting something for sleep as well. Tolerating her diet, last BM before admission. 03/19/2017: Patient lying in bed, resting quietly., Appears comfortable. Tolerating her diet, eating about 50%. Last BM before admission. Again patient is requesting changes to be made to her oral medication regimen, RAW PRODUCTS DIRECTOR explained that pain management will be by to see her and any recommendations that they would be making to add or delete medications would be done by them, patient requesting Adderall and Valium. Requesting Valium to be IV because she thinks she needs it for muscle spasms. She again requested a sleeping medication. REVIEW OF SYSTEMS: Done for constitutional ,cardiovascular, GI, pulmonary with relevant findings as above. CURRENT MEDICATIONS Norvasc, Lipitor, Plavix, Bentyl, Pepcid, methylprednisolone, MS Contin, Tecfidera,Elmiron, Ditropan, Zoloft, Imitrex, Zanaflex, Topamax. PHYSICAL EXAM VITAL SIGNS: Temperature 97.2, pulse 93, respiratory rate 16, blood pressure 121/63, oxygen saturation 98% on 2 L. GENERAL APPEARANCE: Lying in bed, appears mildly anxious . EYES: Pupils equal. Conjunctiva normal. NECK: JVD not raised. Mass not palpable. RESPIRATORY: Respiratory effort normal. Lungs clear to auscultation. CARDIOVASCULAR: First and second sounds normal. No edema. ABDOMEN: Soft. Liver and spleen not palpable. No tenderness. No mass palpable. PSYCHIATRY: Alert and oriented x3. Mood and affect mildly anxious appearing NEUROLOGICAL: Cranial nerves grossly intact. No facial asymmetry. Power in the left arm and left leg 3/5 with some decreased sensation. INVESTIGATIONS: White blood cell count 33.0, Accu-Cheks noted. Blood culture gram-positive cocci in clusters. MRI of the brain: No acute intracranial abnormality seen Encephalomalacia progressive gliosis in the right occipital lobe compared 2014. Mild to moderate scattered foci of T2 bright bilateral change in keeping with patient's known MS., The white matter changes are largely stable. Reference lesion #2 above within the right frontal paraventricular white matter is slightly larger than when compared to 2014 no enhancing/actively demyelinating plaques seen ASSESSMENT: -Acute exacerbation of multiple sclerosis -Leukocytosis secondary to steroid administration -Chronic pain syndrome with some acute flareup -Acute UTI -Hypothyroid -Hyper lipidemia -GERD -Obesity with BMI 32.3 -Chronic fibromyalgia -GERD -Essential hypertension -Anxiety depression not otherwise specified PLAN: Pain management recommendations no changes to be made to her chronic opioid therapy, patient is currently on Plavix and as such will not be able to have any interventional procedures, ordered IV Dilaudid 1 mg every 4 hours, lidocaine patch for the painful areas, consider IV NSAIDs if okay with primary team. We'll continue antibiotic therapy, steroid administration, pain management regimen as already previously ordered and including the new changes, adjusted melatonin for sleep. Plan of care was discussed with patient and she continues to make suggestions as to what she would really like to have. She is not necessarily satisfied or in agreement with this plan. We will continue to monitor closely. RAW PRODUCTS DIRECTOR statement: Patient was seen and examined by nurse practitioner Joslyn Ramírez and all elements of the case discussed with attending Dr. Lloyd <Mark Lloyd - Last Filed: 03/23/17 12:09> Progress Note - Text Patient was not seen by me today. Patient requesting another physician to see her. Chase contacted me. I did tell him that in my view point patient does not need more pain medications. Pain specialist as already been consulted. I did inform him that if she does not find any other physician of be happy to see the patient as I do not want to jeopardize her condition by giving her more IV pain medications.
[2017-03-19] MEDS: MELATONIN 3 MG TABLET PO SCH (20:50)
[2017-03-19 20:51] LABS: Glucose,Whole Blood 161 mg/dL (75-99)
[2017-03-19] MEDS: MONTELUKAST 10 MG TAB PO SCH (20:55)
[2017-03-19] MEDS: ZOLPIDEM 5 MG TAB PO PRN (21:13)
[2017-03-20] MEDS: SODIUM CHLORIDE 0.9% 1,000 ML IV SCH ×3 (02:00→21:33)
[2017-03-20] MEDS: oxyCODONE-APAP 10-325MG 1 EACH TAB PO PRN ×4 (02:11→21:33)
[2017-03-20] MEDS: HYDROmorphone 1 MG/ML 1 ML SYRINGE IVP PRN ×6 (03:28→23:26)
[2017-03-20] MEDS: MORPHINE SULFATE ER 30 MG TABLET PO PRN ×3 (05:32→20:32)
[2017-03-20] MEDS: ONDANSETRON 4 MG/2 ML VIAL IVP PRN ×4 (05:32→23:33)
[2017-03-20 05:48] LABS: Glucose,Whole Blood 155 mg/dL (75-99)
[2017-03-20] MEDS: LEVOTHYROXINE 50 MCG TAB PO SCH (06:51)
[2017-03-20] MEDS: INSULIN LISPRO (humaLOG) 300 UNIT/3 ML VIAL SQ SCH ×3 (06:51→17:20)
[2017-03-20] MEDS: IPRATROPIUM-ALBUTEROL 3 ML NEB INHALATION PRN (08:05)
[2017-03-20] MEDS ORDERED: VANCOMYCIN TROUGH DUE 1 EACH MISC MISCELLANE ONE (09:00)
[2017-03-20 10:00] LABS: Basophils % (A) 0 %; CH 29.2; CHCM 31.9; Eosinophils % (A) 0 %; HCT 35.5 % (34.0-46.0); HDW 2.33; Luc # (Auto) 0.04; Luc % (Auto) 0; Lymphocytes # (A) 1.3 k/uL (1.0-4.8); Lymphocytes % (A) 6 %; MCH 28.6 pg (25.0-35.0); Mean Platelet Volume 7.6; Monocytes # (A) 0.3 k/uL (0-1.0); Monocytes % (A) 2 %; Neutrophils # (A) 18.3 k/uL (1.3-7.7); Neutrophils % (A) 92 %; RBC 3.86 m/uL (3.80-5.40); RDW 13.3 % (11.5-15.5); WBC (Perox) 20.98
[2017-03-20] MEDS: methylPREDNISolone SOD SUCCI 250 MG in SODIUM CHLORIDE 0.9% 100 ML IVPB SCH ×3 (10:08→23:26)
[2017-03-20] MEDS: ENOXAPARIN 40 MG/0.4 ML SYRINGE SQ SCH (10:12)
[2017-03-20] MEDS: LACOSAMIDE 50 MG TABLET PO SCH ×2 (10:12→20:31)
[2017-03-20] MEDS: ATORVASTATIN 10 MG TAB PO SCH (10:13)
[2017-03-20] MEDS: FAMOTIDINE 20 MG TAB PO SCH ×2 (10:13→20:31)
[2017-03-20 10:14] LABS: ALT 22 U/L (9-52); AST 14 U/L (14-36); Alkaline Phosphatase 36 U/L (38-126); Anion Gap 11 mmol/L; Blood Urea Nitrogen 14 mg/dL (7-17); Calcium 9.2 mg/dL (8.4-10.2); Carbon Dioxide 23 mmol/L (22-30); Chloride 108 mmol/L (98-107); Glucose 102 mg/dL (74-99); Non-African American GFR(MDRD) >60 (>60 ml/min/1.73 sqM); Potassium 3.7 mmol/L (3.5-5.1); Sodium 142 mmol/L (137-145); Total Bilirubin <0.1 mg/dL (0.2-1.3); Total Protein 5.6 g/dL (6.3-8.2)
[2017-03-20] MEDS: OXYBUTYNIN CHLORIDE 5 MG TAB PO SCH ×3 (10:14→20:32)
[2017-03-20] MEDS: LIDOCAINE 5% PATCH TOPICAL SCH (10:14)
[2017-03-20] MEDS: SERTRALINE 100 MG TAB PO SCH ×2 (10:14→20:32)
[2017-03-20] MEDS: tiZANidine 4 MG TAB PO SCH ×4 (10:15→20:32)
[2017-03-20] MEDS: TOPIRAMATE 100 MG TAB PO SCH ×2 (10:15→20:32)
[2017-03-20 11:24] LABS: Glucose,Whole Blood 117 mg/dL (75-99)
[2017-03-20] MEDS: LISINOPRIL 10 MG TAB PO SCH (11:36)
[2017-03-20] MEDS: CLOPIDOGREL 75 MG TAB PO SCH (11:36)
[2017-03-20] MEDS: amLODIPine 10 MG TAB PO SCH (11:37)
--- NOTE | 2017-03-20 16:10 | P.PN ---
Subjective Principal diagnosis: Patient is a pleasant 37-year-old female who is being followed by the neurology service for multiple sclerosis exacerbation. Patient has a long history of multiple sclerosis and is taking Tecfidera twice daily. Patient came to the emergency room with left sided weakness which was not resolving. Computed tomography scan of the brain showed changes consistent with multiple sclerosis. Patient also has history of chronic pain. Patient is on multiple analgesics at home for her chronic pain. Patient also reports history of seizure disorder. Patient continues on IV Solu-Medrol and reports minimal resolution of symptoms. At the time of my evaluation, she is resting comfortably in bed and appears to be in no acute distress. 03/19/2017 Patient is a pleasant 37-year-old female who is being followed by the neurology service for multiple sclerosis exacerbation. Patient denies any improvement in symptoms however left-sided weakness has improved on physical exam. ID is following for UTI. WBCs are elevated at 33 but likely steroids are contributing to this. Cultures are pending. Pain management note appreciated. At the time of my evaluation, patient's resting comfortably in bed and appears to be in no acute distress. 03/20/2017 Patient is a pleasant 37-year-old female who is being followed by the neurology service for multiple sclerosis exacerbation. Patient continues on IV Solu-Medrol. Patient reports minimal improvement in left-sided weakness symptoms. On exam, left-sided weakness is significantly improved. Patient is working with physical therapy. We did discuss possibility of need to reevaluate disease modifying agent. Patient reports 1-2 exacerbations per year. I strongly recommended that she follow-up with her neurologist. At the time of my evaluation, patient is resting comfortably in bed and appears to be in no acute distress. Objective - Vital Signs Vital signs: Vital Signs Temp 97.3 F L 03/20/17 00:00 Pulse 100 03/20/17 08:22 Resp 16 03/20/17 04:00 BP 132/72 03/20/17 04:00 Pulse Ox 96 03/20/17 04:00 Intake & Output 03/19/17 03/20/17 03/20/17 18:59 06:59 18:59 Intake Total 2786 1250 Balance 2786 1250 Weight 104.8 kg Intake: IV 1950 1250 Sodium Chloride 0.9% 1, 1600 1000 000 ml @ 100 mls/hr IV . Q10H [facility] Rx#:[id number] Vancomycin 1,500 mg In 250 250 Sodium Chloride 0.9% 250 ml @ 125 mls/hr IVPB Q12HR@1000,2200 [facility] Rx#: [id number] methylPREDNISolone SOD 100 SUCCI 250 mg In Sodium Chloride 0.9% 100 ml @ 208 mls/hr IVPB Q8HR [facility] Rx#:[id number] Oral 836 Other: Voiding Method Toilet Toilet # Voids 1 1 2 - Exam PHYSICAL EXAM: GENERAL APPEARANCE: Patient is a well-developed, female who appears to be in no acute distress. HEENT: Normocephalic, atraumatic, no facial asymmetry is seen. Neck is supple with no masses felt. CARDIOVASCULAR: Regular rate and rhythm. ABDOMEN: Nontender, nondistended. EXTREMITIES: Show no edema or clubbing. NEUROLOGICAL EXAM: Patient is awake, alert, and oriented 3. Speech and language are normal. Strength is 5/5 on the right and 4/5 on the left upper and lower extremity. Sensory exam is diminished to light touch on the left as compared to the right. No facial asymmetry is seen on cranial nerve testing. No tremors or seizure-like activity is seen. - Labs CBC & Chem 7: 03/20/17 09:20 03/20/17 09:20 Labs: Abnormal Lab Results - Last 24 Hours (Table) 03/19/17 03/19/17 03/20/17 Range/Units 16:39 20:50 05:47 WBC (3.8-10.6) k/uL Hgb (11.4-16.0) gm/dL Neutrophils # (1.3-7.7) k/uL Chloride (98-107) mmol/L Glucose (74-99) mg/dL POC Glucose (mg/dL) 176 H 161 H 155 H (75-99) mg/dL Total Bilirubin (0.2-1.3) mg/dL Alkaline Phosphatase (38-126) U/L Total Protein (6.3-8.2) g/dL Albumin (3.5-5.0) g/dL 03/20/17 03/20/17 03/20/17 Range/Units 09:20 09:20 11:21 WBC 20.0 H (3.8-10.6) k/uL Hgb 11.0 L (11.4-16.0) gm/dL Neutrophils # 18.3 H (1.3-7.7) k/uL Chloride 108 H (98-107) mmol/L Glucose 102 H (74-99) mg/dL POC Glucose (mg/dL) 117 H (75-99) mg/dL Total Bilirubin <0.1 L (0.2-1.3) mg/dL Alkaline Phosphatase 36 L (38-126) U/L Total Protein 5.6 L (6.3-8.2) g/dL Albumin 3.4 L (3.5-5.0) g/dL Microbiology - Last 24 Hours (Table) 03/18/17 13:29 Blood Culture - Preliminary Blood No Growth after 48 hours 03/17/17 15:28 Blood Culture Gram Stain - Final Blood Blood Culture - Final Staphylococcus epidermidis 03/18/17 14:13 Blood Culture - Preliminary Blood No Growth after 24 hours Assessment and Plan Plan: Impression: 1. Acute exacerbation of multiple sclerosis. 2. Left hemiparesis 3. Left sided sensory deficit 4. Seizure disorder 5. Chronic pain syndrome 6. Urinary tract infection Recommendation: Patient continues to have weakness and sensory deficit on the left side but this is improved. She continues on IV Solu-Medrol at 250 mg every 8 hours. Okay to discontinue IV steroids. If patient is to be discharged, a Medrol dosepak taper would be appropriate. I recommend continuing physical therapy. If patient goes home, physical therapy in the home would be beneficial. No seizure activity has been reported. Continue current seizure medication dosing. EEG not needed at this time. As for her chronic pain, patient was seen by pain management and their note is appreciated. Continue neurological checks. Continue antibiotic therapy for urinary tract infection. Evaluation of disease modifying agents for multiple sclerosis can be done as an outpatient. Patient is stable for discharge from neurological standpoint. I will continue to follow with you on an as-needed basis. Feel free to call with any questions or concerns. I performed an examination of the patient and discussed the management with the REFRIGERATION TECHNICIAN. I have reviewed the REFRIGERATION TECHNICIAN notes and agree with the findings and plan of care.
[2017-03-20 16:36] LABS: Glucose,Whole Blood 146 mg/dL (75-99)
[2017-03-20] MEDS: VANCOMYCIN 1,500 MG in SODIUM CHLORIDE 0.9% 250 ML IVPB SCH (19:37)
--- NOTE | 2017-03-20 20:07 | P.PN ---
Subjective Principal diagnosis: left arm weakness 37-year-old female who is known history of MS presents to hospital with increasing weakness to her left hand inside. She is having increasing amounts of weakness and constantly presented to Hospital. She subsequently has been treated with steroids by her neurologist. There is concerns urinary tract infection and sepsis admission and constantly the infectious diseases consultation was requested. She did relate to having some blurring to her vision and significant left-sided weakness. She is denying seizures or loss of consciousness. Denies high-grade fever chills rigors or sweats. Feels very poorly overall. Does have significant complaints of severe pain. This is not new. But has worsened during her current acute flare. He is feeling slightly better than admission. Her headache is improved. Weakness is stable to improved. But still has significant generalized pain. Her pain is her biggest complaint. She is discontent with her pain control. Objective - Vital Signs Vital signs: Vital Signs Temp 97 F L 03/20/17 16:00 Pulse 84 03/20/17 16:00 Resp 16 03/20/17 16:00 BP 147/83 03/20/17 16:00 Pulse Ox 97 03/20/17 16:00 Intake & Output 03/20/17 03/20/17 03/21/17 06:59 18:59 06:59 Intake Total 1250 100 Balance 1250 100 Weight 104.8 kg Intake: IV 1250 100 Sodium Chloride 0.9% 1, 1000 100 000 ml @ 100 mls/hr IV . Q10H [facility] Rx#:[id number] Vancomycin 1,500 mg In 250 Sodium Chloride 0.9% 250 ml @ 125 mls/hr IVPB Q12HR@1000,2200 [facility] Rx#: [id number] Other: Voiding Method Toilet Toilet # Voids 1 2 - Exam Gen: This is a 37 year-old female. Today she sitting upright in the chair. She does complain of feeling uncomfortable. Is complaining of severe back pain leg pain and some headache. She also complains of the visual change. HEENT: Head is atraumatic, normocephalic. Pupils equal, round. Sclerae is anicteric. Mild facial flushing NECK: Supple. No JVD. No lymphadenopathy. No thyromegaly. LUNGS: Clear to auscultation. No wheezes or rhonchi. No intercostal retractions. HEART: Regular rate and rhythm. No murmur. ABDOMEN: Soft. Bowel sounds are present. No masses. Positive generalized abdominal tenderness. EXTREMITIES: No pedal edema. No calf tenderness. Dorsalis pedis is +2 bilaterally NEUROLOGICAL: Patient is awake, alert and oriented person and place no confusion but does have visual change. This is, when she has worsening of her optic neuritis. - Labs CBC & Chem 7: 03/20/17 09:20 03/20/17 09:20 Labs: Abnormal Lab Results - Last 24 Hours (Table) 03/19/17 03/20/17 03/20/17 Range/Units 20:50 05:47 09:20 WBC 20.0 H (3.8-10.6) k/uL Hgb 11.0 L (11.4-16.0) gm/dL Neutrophils # 18.3 H (1.3-7.7) k/uL Chloride (98-107) mmol/L Glucose (74-99) mg/dL POC Glucose (mg/dL) 161 H 155 H (75-99) mg/dL Total Bilirubin (0.2-1.3) mg/dL Alkaline Phosphatase (38-126) U/L Total Protein (6.3-8.2) g/dL Albumin (3.5-5.0) g/dL 03/20/17 03/20/17 03/20/17 Range/Units 09:20 11:21 16:31 WBC (3.8-10.6) k/uL Hgb (11.4-16.0) gm/dL Neutrophils # (1.3-7.7) k/uL Chloride 108 H (98-107) mmol/L Glucose 102 H (74-99) mg/dL POC Glucose (mg/dL) 117 H 146 H (75-99) mg/dL Total Bilirubin <0.1 L (0.2-1.3) mg/dL Alkaline Phosphatase 36 L (38-126) U/L Total Protein 5.6 L (6.3-8.2) g/dL Albumin 3.4 L (3.5-5.0) g/dL Microbiology - Last 24 Hours (Table) 03/18/17 14:13 Blood Culture - Preliminary Blood No Growth after 48 hours 03/18/17 13:29 Blood Culture - Preliminary Blood No Growth after 48 hours 03/17/17 15:28 Blood Culture Gram Stain - Final Blood Blood Culture - Final Staphylococcus epidermidis Microbiology 03/18/17 14:13 Blood Blood Culture - Preliminary No Growth after 48 hours 03/18/17 13:29 Blood Blood Culture - Preliminary No Growth after 48 hours 03/17/17 15:28 Blood Blood Culture Gram Stain - Final 03/17/17 15:28 Blood Blood Culture - Final Staphylococcus epidermidis 03/17/17 15:28 Blood Blood Culture - Final Laboratory Results WBC 20.0 k/uL (3.8-10.6) H 03/20/17 09:20 RBC 3.86 m/uL (3.80-5.40) 03/20/17 09:20 Hgb 11.0 gm/dL (11.4-16.0) L 03/20/17 09:20 Hct 35.5 % (34.0-46.0) 03/20/17 09:20 MCV 92.0 fL (80.0-100.0) 03/20/17 09:20 MCH 28.6 pg (25.0-35.0) 03/20/17 09:20 MCHC 31.0 g/dL (31.0-37.0) 03/20/17 09:20 RDW 13.3 % (11.5-15.5) 03/20/17 09:20 Plt Count 344 k/uL (150-450) 03/20/17 09:20 Neutrophils % 92 % 03/20/17 09:20 Lymphocytes % 6 % 03/20/17 09:20 Monocytes % 2 % 03/20/17 09:20 Eosinophils % 0 % 03/20/17 09:20 Basophils % 0 % 03/20/17 09:20 Neutrophils # 18.3 k/uL (1.3-7.7) H 03/20/17 09:20 Lymphocytes # 1.3 k/uL (1.0-4.8) 03/20/17 09:20 Monocytes # 0.3 k/uL (0-1.0) 03/20/17 09:20 Eosinophils # 0.0 k/uL (0-0.7) 03/20/17 09:20 Basophils # 0.0 k/uL (0-0.2) 03/20/17 09:20 Hypochromasia Slight 03/18/17 05:41 PT 11.0 sec (9.0-12.0) 03/17/17 15:28 INR 1.1 (<1.2) 03/17/17 15:28 APTT 23.2 sec (22.0-30.0) 03/17/17 15:28 Sodium 142 mmol/L (137-145) 03/20/17 09:20 Potassium 3.7 mmol/L (3.5-5.1) 03/20/17 09:20 Chloride 108 mmol/L (98-107) H 03/20/17 09:20 Carbon Dioxide 23 mmol/L (22-30) 03/20/17 09:20 Anion Gap 11 mmol/L 03/20/17 09:20 BUN 14 mg/dL (7-17) 03/20/17 09:20 Creatinine 0.70 mg/dL (0.52-1.04) 03/20/17 09:20 Est GFR (MDRD) Af Amer >60 (>60 ml/min/1.73 sqM) 03/20/17 09:20 Est GFR (MDRD) Non-Af >60 (>60 ml/min/1.73 sqM) 03/20/17 09:20 Glucose 102 mg/dL (74-99) H 03/20/17 09:20 POC Glucose (mg/dL) 146 mg/dL (75-99) H 03/20/17 16:31 POC Glu Refrigerator Glazier Alyson Rodrigues 03/20/17 16:[address] Glu mg/dL 117 mg/dL 03/17/17 15:28 Hemoglobin A1c 5.7 % (4.2-6.1) 03/17/17 15:28 Plasma Lactic Acid Tom 1.3 mmol/L (0.7-2.0) 03/17/17 15:46 Calcium 9.2 mg/dL (8.4-10.2) 03/20/17 09:20 Total Bilirubin <0.1 mg/dL (0.2-1.3) L 03/20/17 09:20 AST 14 U/L (14-36) 03/20/17 09:20 ALT 22 U/L (9-52) 03/20/17 09:20 Alkaline Phosphatase 36 U/L (38-126) L 03/20/17 09:20 Total Creatine Kinase 50 U/L (30-135) 03/17/17 15:28 CK-MB (CK-2) 0.4 ng/mL (0.0-2.4) 03/17/17 15:28 CK-MB (CK-2) Rel Index 0.8 03/17/17 15:28 Troponin I <0.012 ng/mL (0.000-0.034) 03/17/17 15:28 Total Protein 5.6 g/dL (6.3-8.2) L 03/20/17 09:20 Albumin 3.4 g/dL (3.5-5.0) L 03/20/17 09:20 TSH 1.070 mIU/L (0.465-4.680) 03/17/17 15:28 Urine Color Yellow 03/17/17 15:46 Urine Appearance Turbid (Clear) H 03/17/17 15:46 Urine pH 6.0 (5.0-8.0) 03/17/17 15:46 Ur Specific [place] 1.018 (1.001-1.035) 03/17/17 15:46 Urine Protein 2+ (Negative) H 03/17/17 15:46 Urine Glucose (UA) Negative (Negative) 03/17/17 15:46 Urine Ketones Trace (Negative) H 03/17/17 15:46 Urine Blood Trace (Negative) H 03/17/17 15:46 Urine Nitrite Negative (Negative) 03/17/17 15:46 Urine Bilirubin Negative (Negative) 03/17/17 15:46 Urine Urobilinogen <2.0 mg/dL (<2.0) 03/17/17 15:46 Ur Leukocyte Esterase Moderate (Negative) H 03/17/17 15:46 Urine RBC 8 /hpf (0-5) H 03/17/17 15:46 Urine WBC 50 /hpf (0-5) H 03/17/17 15:46 Ur Squamous Epith Cells <1 /hpf (0-4) 03/17/17 15:46 Urine Bacteria Rare /hpf (None) H 03/17/17 15:46 Vancomycin Trough 8.6 ug/mL 03/20/17 09:20 Urine Opiates Screen Detected (NotDetected) H 03/17/17 15:46 Ur Oxycodone Screen Detected (NotDetected) H 03/17/17 15:46 Urine Methadone Screen Not Detected (NotDetected) 03/17/17 15:46 Ur Propoxyphene Screen Not Detected (NotDetected) 03/17/17 15:46 Ur Barbiturates Screen Not Detected (NotDetected) 03/17/17 15:46 U Tricyclic Antidepress Not Detected (NotDetected) 03/17/17 15:46 Ur Phencyclidine Scrn Not Detected (NotDetected) 03/17/17 15:46 Ur Amphetamines Screen Not Detected (NotDetected) 03/17/17 15:46 U Methamphetamines Scrn Not Detected (NotDetected) 03/17/17 15:46 U Benzodiazepines Scrn Detected (NotDetected) H 03/17/17 15:46 Urine Cocaine Screen Not Detected (NotDetected) 03/17/17 15:46 U Marijuana (THC) Screen Not Detected (NotDetected) 03/17/17 15:46 Microbiology 03/18/17 14:13 Blood Blood Culture - Preliminary No Growth after 48 hours 03/18/17 13:29 Blood Blood Culture - Preliminary No Growth after 48 hours 03/17/17 15:28 Blood Blood Culture Gram Stain - Final 03/17/17 15:28 Blood Blood Culture - Final Staphylococcus epidermidis 03/17/17 15:28 Blood Blood Culture - Final Assessment and Plan (1) Multiple sclerosis exacerbation Status: Acute (2) Gram-positive cocci bacteremia Narrative/Plan: 37-year-old female presents to hospital with the several-day history of worsening of her MS symptoms. Her pain also was markedly increasing. She Presented Emergency Center Has Been Admitted for a Flare of Her MS. She's Been Seen by Her Neurologist. Steroid Fusions Have Begun. Her Other Medications Are Continuing As Prior. Pain Control Is an Issue for the Patient and Anesthesia Services Have Been Consulted. A possible culture has been noted with gram-positive cocci. Concern would be to this is underlying etiology of the flare her MS. Also be concerned about potential contamination. For now antibiotic therapy with vancomycin is being utilized. Follow blood cultures are requested. Ongoing supportive care. I do relate to the patient that I cannot change her pain medications that will need to come from the pain management service. She is one of our advanced beds and overlays are not indicated with this mattress. She was concerned about a urinary infection. At this time she has been seen by pain services. They will continue to monitor but will not be seeing her as an outpatient since. He has a pain clinic. The blood culture is a contamination and needs no further antibiotic therapy with vancomycin. Likely does have urinary infection and will add in Bactrim since she tolerates as well as a good response in the past.Cultures are negative. Status: Acute
[2017-03-20] MEDS: MELATONIN 3 MG TABLET PO SCH (20:25)
[2017-03-20] MEDS: MONTELUKAST 10 MG TAB PO SCH (20:31)
[2017-03-20] MEDS: SULFAMETHOX-TMP 800-160MG 1 EACH TAB PO SCH (20:42)
[2017-03-20 20:51] LABS: Glucose,Whole Blood 187 mg/dL (75-99)
[2017-03-20] MEDS: ZOLPIDEM 5 MG TAB PO PRN (23:26)
[2017-03-21] MEDS: oxyCODONE-APAP 10-325MG 1 EACH TAB PO PRN ×6 (01:54→23:13)
[2017-03-21] MEDS: HYDROmorphone 1 MG/ML 1 ML SYRINGE IVP PRN ×5 (03:24→20:05)
[2017-03-21] MEDS: LEVOTHYROXINE 50 MCG TAB PO SCH (06:07)
[2017-03-21 06:23] LABS: Glucose,Whole Blood 117 mg/dL (75-99)
[2017-03-21] MEDS: INSULIN LISPRO (humaLOG) 300 UNIT/3 ML VIAL SQ SCH ×3 (06:53→18:17)
[2017-03-21] MEDS: ONDANSETRON 4 MG/2 ML VIAL IVP PRN ×3 (06:58→21:42)
[2017-03-21] MEDS: LIDOCAINE 5% PATCH TOPICAL SCH (07:45)
[2017-03-21] MEDS: LISINOPRIL 10 MG TAB PO SCH (07:46)
[2017-03-21] MEDS: amLODIPine 10 MG TAB PO SCH (07:46)
[2017-03-21] MEDS: SERTRALINE 100 MG TAB PO SCH ×2 (07:46→21:40)
[2017-03-21] MEDS: OXYBUTYNIN CHLORIDE 5 MG TAB PO SCH ×3 (07:47→21:42)
[2017-03-21] MEDS: ATORVASTATIN 10 MG TAB PO SCH (07:47)
[2017-03-21] MEDS: ENOXAPARIN 40 MG/0.4 ML SYRINGE SQ SCH (07:47)
[2017-03-21] MEDS: tiZANidine 4 MG TAB PO SCH ×4 (07:48→21:42)
[2017-03-21] MEDS: FAMOTIDINE 20 MG TAB PO SCH (07:48)
[2017-03-21] MEDS: SULFAMETHOX-TMP 800-160MG 1 EACH TAB PO SCH ×2 (07:48→21:41)
[2017-03-21] MEDS: CLOPIDOGREL 75 MG TAB PO SCH (07:48)
[2017-03-21] MEDS: SODIUM CHLORIDE 0.9% 1,000 ML IV SCH ×2 (07:49→20:07)
[2017-03-21] MEDS: TOPIRAMATE 100 MG TAB PO SCH ×2 (07:49→21:41)
[2017-03-21] MEDS: IPRATROPIUM-ALBUTEROL 3 ML NEB INHALATION PRN ×3 (08:37→19:09)
[2017-03-21] MEDS: methylPREDNISolone SOD SUCCI 250 MG in SODIUM CHLORIDE 0.9% 100 ML IVPB SCH ×2 (10:33→15:46)
[2017-03-21] MEDS: LACOSAMIDE 50 MG TABLET PO SCH ×2 (10:46→21:39)
[2017-03-21 11:33] LABS: Glucose,Whole Blood 133 mg/dL (75-99)
[2017-03-21] MEDS: MORPHINE SULFATE ER 30 MG TABLET PO PRN (12:59)
[2017-03-21 17:25] LABS: Glucose,Whole Blood 131 mg/dL (75-99)
[2017-03-21] MEDS ORDERED: LORazepam 1 MG TAB PO PRN (17:32)
[2017-03-21] MEDS: LORazepam 2 MG/ML SYRINGE IV PRN (20:05)
[2017-03-21 20:41] LABS: Glucose,Whole Blood 157 mg/dL (75-99)
[2017-03-21] MEDS: FAMOTIDINE 20 MG/2 ML VIAL IV SCH (21:39)
[2017-03-21] MEDS: MONTELUKAST 10 MG TAB PO SCH (21:40)
[2017-03-21] MEDS: ZOLPIDEM 5 MG TAB PO PRN (21:42)
[2017-03-21] MEDS: SUMAtriptan SUCCINATE 50 MG TAB PO PRN (21:43)
[2017-03-21] MEDS: MELATONIN 3 MG TABLET PO SCH (22:11)
[2017-03-22] MEDS: methylPREDNISolone SOD SUCCI 250 MG in SODIUM CHLORIDE 0.9% 100 ML IVPB SCH ×2 (00:19→12:34)
[2017-03-22] MEDS: LORazepam 2 MG/ML SYRINGE IV PRN ×4 (01:38→15:53)
[2017-03-22] MEDS: HYDROmorphone 1 MG/ML 1 ML SYRINGE IVP PRN ×5 (01:38→21:12)
[2017-03-22] MEDS: MORPHINE SULFATE ER 30 MG TABLET PO PRN ×2 (03:09→15:20)
[2017-03-22] MEDS: oxyCODONE-APAP 10-325MG 1 EACH TAB PO PRN ×4 (04:04→19:48)
[2017-03-22] MEDS: ONDANSETRON 4 MG/2 ML VIAL IVP PRN ×4 (04:04→21:12)
[2017-03-22] MEDS: SODIUM CHLORIDE 0.9% 1,000 ML IV SCH ×2 (06:19→16:08)
[2017-03-22] MEDS: LEVOTHYROXINE 50 MCG TAB PO SCH (06:49)
[2017-03-22] MEDS: IPRATROPIUM-ALBUTEROL 3 ML NEB INHALATION PRN (07:17)
[2017-03-22 07:51] LABS: Glucose,Whole Blood 123 mg/dL (75-99)
[2017-03-22 08:14] LABS: Basophils % (A) 0 %; CHCM 33.4; Eosinophils # (A) 0.1 k/uL (0-0.7); Eosinophils % (A) 0 %; HCT 37.5 % (34.0-46.0); HDW 2.51; HGB 12.8 gm/dL (11.4-16.0); Luc % (Auto) 1; Lymphocytes # (A) 1.9 k/uL (1.0-4.8); Lymphocytes % (A) 12 %; MCH 29.8 pg (25.0-35.0); MCHC 34.2 g/dL (31.0-37.0); MCV 87.2 fL (80.0-100.0); Mean Platelet Volume 7.5; Monocytes # (A) 0.5 k/uL (0-1.0); Monocytes % (A) 3 %; Neutrophils # (A) 12.5 k/uL (1.3-7.7); Neutrophils % (A) 83 %; RDW 12.8 % (11.5-15.5); WBC (Perox) 15.78
[2017-03-22] MEDS: LIDOCAINE 5% PATCH TOPICAL SCH (09:27)
[2017-03-22] MEDS: ENOXAPARIN 40 MG/0.4 ML SYRINGE SQ SCH (09:28)
[2017-03-22] MEDS: TOPIRAMATE 100 MG TAB PO SCH ×2 (09:29→20:00)
[2017-03-22] MEDS: CLOPIDOGREL 75 MG TAB PO SCH (09:29)
[2017-03-22] MEDS: SERTRALINE 100 MG TAB PO SCH ×2 (09:29→20:00)
[2017-03-22] MEDS: LACOSAMIDE 50 MG TABLET PO SCH ×2 (09:29→20:12)
[2017-03-22] MEDS: SULFAMETHOX-TMP 800-160MG 1 EACH TAB PO SCH ×2 (09:30→20:00)
[2017-03-22] MEDS: OXYBUTYNIN CHLORIDE 5 MG TAB PO SCH ×3 (09:30→21:13)
[2017-03-22] MEDS: tiZANidine 4 MG TAB PO SCH ×4 (09:30→21:14)
[2017-03-22] MEDS: ATORVASTATIN 10 MG TAB PO SCH (09:30)
[2017-03-22] MEDS: amLODIPine 10 MG TAB PO SCH (09:30)
[2017-03-22] MEDS: LISINOPRIL 10 MG TAB PO SCH (09:30)
[2017-03-22] MEDS: FAMOTIDINE 20 MG/2 ML VIAL IV SCH ×2 (09:30→19:59)
[2017-03-22] MEDS: INSULIN LISPRO (humaLOG) 300 UNIT/3 ML VIAL SQ SCH ×3 (09:47→17:45)
[2017-03-22 09:49] LABS: ALT 25 U/L (9-52); AST 21 U/L (14-36); Alkaline Phosphatase 40 U/L (38-126); Anion Gap 13 mmol/L; Blood Urea Nitrogen 17 mg/dL (7-17); Calcium 9.2 mg/dL (8.4-10.2); Carbon Dioxide 23 mmol/L (22-30); Chloride 105 mmol/L (98-107); Glucose 108 mg/dL (74-99); Non-African American GFR(MDRD) >60 (>60 ml/min/1.73 sqM); Potassium 3.7 mmol/L (3.5-5.1); Sodium 141 mmol/L (137-145); Total Bilirubin 0.2 mg/dL (0.2-1.3); Total Protein 5.9 g/dL (6.3-8.2)
[2017-03-22] MEDS ORDERED: QUEtiapine 50 MG TAB PO STA (10:52)
[2017-03-22] MEDS ORDERED: LORazepam 2 MG/ML SYRINGE IV STA (10:53)
--- NOTE | 2017-03-22 12:07 | PN ---
SUBJECTIVE: A 37-year-old white female admitted with multiple sclerosis exacerbation, chronic UTI, remains on pain medicines per chronic pain physicians. She is demanding medicine for anxiety at this time. Also she is demanding medications for GI upset, insomnia. Says medicine is not working for sleep including Ambien. She is getting treated with ( ) with Dr. Cancino 1 b.i.d. for UTI. She remains on multiple medications. Multiple consults in place. Still remains on IV Solu-Medrol. Temp 96.5, pulse 80, respiratory rate 16 to 18, blood pressure 129/83. O2 is 99 to 97% on room air. CARDIOVASCULAR: S1, S2. LUNGS: Transmitted upper airway wounds. GI: Soft. : Suprapubic tenderness. HEMATOLOGIC: Negative Homans. ASSESSMENT: 1. Urinary tract infection. 2. Multiple sclerosis exacerbation. 3. Chronic pain syndrome. 4. Hypothyroidism. 5. Chronic obstructive pulmonary disease. 6. Obesity. 7. Noncompliance with outpatient care. I discussed the case. I cannot increase her pain medications. She will get it from a pain physician. Anxiety medicine is ordered. ( ) medicine is ordered. Solu-Medrol and multiple sclerosis treatment per neurology. Treatment of UTI per Infectious Disease. MTDD
[2017-03-22 12:43] LABS: Glucose,Whole Blood 116 mg/dL (75-99)
--- NOTE | 2017-03-22 16:01 | P.PN ---
Subjective Principal diagnosis: left arm weakness 37-year-old female who is known history of MS presents to hospital with increasing weakness to her left hand inside. She is having increasing amounts of weakness and constantly presented to Hospital. She subsequently has been treated with steroids by her neurologist. There is concerns urinary tract infection and sepsis admission and constantly the infectious diseases consultation was requested. She did relate to having some blurring to her vision and significant left-sided weakness. She is denying seizures or loss of consciousness. Denies high-grade fever chills rigors or sweats. Feels very poorly overall. Does have significant complaints of severe pain. This is not new. But has worsened during her current acute flare. He is feeling slightly better than admission. Her headache is improved. Weakness is stable to improved. But still has significant generalized pain. Her pain is her biggest complaint. She is discontent with her pain control. The urine symptoms are persistent but improved. Objective - Vital Signs Vital signs: Vital Signs Temp 98.5 F 03/22/17 15:00 Pulse 87 03/22/17 15:00 Resp 18 03/22/17 15:00 BP 139/84 03/22/17 15:00 Pulse Ox 97 03/22/17 15:00 Intake & Output 03/21/17 03/22/17 03/22/17 18:59 06:59 18:59 Intake Total 236 1050 Balance 236 1050 Intake: Oral 236 1050 Other: Voiding Method Toilet Toilet # Voids 1 2 1 - Exam Gen: This is a 37 year-old female. Today she sitting upright in the chair. She does complain of feeling uncomfortable. Is complaining of severe back pain leg pain and some headache. She also complains of the visual change. HEENT: Head is atraumatic, normocephalic. Pupils equal, round. Sclerae is anicteric. Mild facial flushing NECK: Supple. No JVD. No lymphadenopathy. No thyromegaly. LUNGS: Clear to auscultation. No wheezes or rhonchi. No intercostal retractions. HEART: Regular rate and rhythm. No murmur. ABDOMEN: Soft. Bowel sounds are present. No masses. Positive generalized abdominal tenderness. EXTREMITIES: No pedal edema. No calf tenderness. Dorsalis pedis is +2 bilaterally NEUROLOGICAL: Patient is awake, alert and oriented person and place no confusion but does have visual change. This is, when she has worsening of her optic neuritis. - Labs CBC & Chem 7: 03/22/17 07:36 03/22/17 07:36 Labs: Abnormal Lab Results - Last 24 Hours (Table) 03/21/17 03/21/17 03/22/17 Range/Units 17:23 20:21 07:24 WBC (3.8-10.6) k/uL Neutrophils # (1.3-7.7) k/uL Glucose (74-99) mg/dL POC Glucose (mg/dL) 131 H 157 H 123 H (75-99) mg/dL Total Protein (6.3-8.2) g/dL 03/22/17 03/22/17 03/22/17 Range/Units 07:36 07:36 12:25 WBC 15.0 H (3.8-10.6) k/uL Neutrophils # 12.5 H (1.3-7.7) k/uL Glucose 108 H (74-99) mg/dL POC Glucose (mg/dL) 116 H (75-99) mg/dL Total Protein 5.9 L (6.3-8.2) g/dL Microbiology - Last 24 Hours (Table) 03/18/17 13:29 Blood Culture - Preliminary Blood No Growth after 96 hours 03/18/17 14:13 Blood Culture - Preliminary Blood No Growth after 72 hours Laboratory Results WBC 15.0 k/uL (3.8-10.6) H 03/22/17 07:36 RBC 4.30 m/uL (3.80-5.40) 03/22/17 07:36 Hgb 12.8 gm/dL (11.4-16.0) 03/22/17 07:36 Hct 37.5 % (34.0-46.0) 03/22/17 07:36 MCV 87.2 fL (80.0-100.0) 03/22/17 07:36 MCH 29.8 pg (25.0-35.0) 03/22/17 07:36 MCHC 34.2 g/dL (31.0-37.0) 03/22/17 07:36 RDW 12.8 % (11.5-15.5) 03/22/17 07:36 Plt Count 424 k/uL (150-450) 03/22/17 07:36 Neutrophils % 83 % 03/22/17 07:36 Lymphocytes % 12 % 03/22/17 07:36 Monocytes % 3 % 03/22/17 07:36 Eosinophils % 0 % 03/22/17 07:36 Basophils % 0 % 03/22/17 07:36 Neutrophils # 12.5 k/uL (1.3-7.7) H 03/22/17 07:36 Lymphocytes # 1.9 k/uL (1.0-4.8) 03/22/17 07:36 Monocytes # 0.5 k/uL (0-1.0) 03/22/17 07:36 Eosinophils # 0.1 k/uL (0-0.7) 03/22/17 07:36 Basophils # 0.0 k/uL (0-0.2) 03/22/17 07:36 Hypochromasia Slight 03/18/17 05:41 PT 11.0 sec (9.0-12.0) 03/17/17 15:28 INR 1.1 (<1.2) 03/17/17 15:28 APTT 23.2 sec (22.0-30.0) 03/17/17 15:28 Sodium 141 mmol/L (137-145) 03/22/17 07:36 Potassium 3.7 mmol/L (3.5-5.1) 03/22/17 07:36 Chloride 105 mmol/L (98-107) 03/22/17 07:36 Carbon Dioxide 23 mmol/L (22-30) 03/22/17 07:36 Anion Gap 13 mmol/L 03/22/17 07:36 BUN 17 mg/dL (7-17) 03/22/17 07:36 Creatinine 0.72 mg/dL (0.52-1.04) 03/22/17 07:36 Est GFR (MDRD) Af Amer >60 (>60 ml/min/1.73 sqM) 03/22/17 07:36 Est GFR (MDRD) Non-Af >60 (>60 ml/min/1.73 sqM) 03/22/17 07:36 Glucose 108 mg/dL (74-99) H 03/22/17 07:36 POC Glucose (mg/dL) 116 mg/dL (75-99) H 03/22/17 12:25 POC Glu Chef ID Niki Nielson 03/22/17 12:[address] Glu mg/dL 117 mg/dL 03/17/17 15:28 Hemoglobin A1c 5.7 % (4.2-6.1) 03/17/17 15:28 Plasma Lactic Acid Tom 1.3 mmol/L (0.7-2.0) 03/17/17 15:46 Calcium 9.2 mg/dL (8.4-10.2) 03/22/17 07:36 Total Bilirubin 0.2 mg/dL (0.2-1.3) 03/22/17 07:36 AST 21 U/L (14-36) 03/22/17 07:36 ALT 25 U/L (9-52) 03/22/17 07:36 Alkaline Phosphatase 40 U/L (38-126) 03/22/17 07:36 Total Creatine Kinase 50 U/L (30-135) 03/17/17 15:28 CK-MB (CK-2) 0.4 ng/mL (0.0-2.4) 03/17/17 15:28 CK-MB (CK-2) Rel Index 0.8 03/17/17 15:28 Troponin I <0.012 ng/mL (0.000-0.034) 03/17/17 15:28 Total Protein 5.9 g/dL (6.3-8.2) L 03/22/17 07:36 Albumin 3.6 g/dL (3.5-5.0) 03/22/17 07:36 TSH 1.070 mIU/L (0.465-4.680) 03/17/17 15:28 Urine Color Yellow 03/17/17 15:46 Urine Appearance Turbid (Clear) H 03/17/17 15:46 Urine pH 6.0 (5.0-8.0) 03/17/17 15:46 Ur Specific [place] 1.018 (1.001-1.035) 03/17/17 15:46 Urine Protein 2+ (Negative) H 03/17/17 15:46 Urine Glucose (UA) Negative (Negative) 03/17/17 15:46 Urine Ketones Trace (Negative) H 03/17/17 15:46 Urine Blood Trace (Negative) H 03/17/17 15:46 Urine Nitrite Negative (Negative) 03/17/17 15:46 Urine Bilirubin Negative (Negative) 03/17/17 15:46 Urine Urobilinogen <2.0 mg/dL (<2.0) 03/17/17 15:46 Ur Leukocyte Esterase Moderate (Negative) H 03/17/17 15:46 Urine RBC 8 /hpf (0-5) H 03/17/17 15:46 Urine WBC 50 /hpf (0-5) H 03/17/17 15:46 Ur Squamous Epith Cells <1 /hpf (0-4) 03/17/17 15:46 Urine Bacteria Rare /hpf (None) H 03/17/17 15:46 Vancomycin Trough 8.6 ug/mL 03/20/17 09:20 Urine Opiates Screen Detected (NotDetected) H 03/17/17 15:46 Ur Oxycodone Screen Detected (NotDetected) H 03/17/17 15:46 Urine Methadone Screen Not Detected (NotDetected) 03/17/17 15:46 Ur Propoxyphene Screen Not Detected (NotDetected) 03/17/17 15:46 Ur Barbiturates Screen Not Detected (NotDetected) 03/17/17 15:46 U Tricyclic Antidepress Not Detected (NotDetected) 03/17/17 15:46 Ur Phencyclidine Scrn Not Detected (NotDetected) 03/17/17 15:46 Ur Amphetamines Screen Not Detected (NotDetected) 03/17/17 15:46 U Methamphetamines Scrn Not Detected (NotDetected) 03/17/17 15:46 U Benzodiazepines Scrn Detected (NotDetected) H 03/17/17 15:46 Urine Cocaine Screen Not Detected (NotDetected) 03/17/17 15:46 U Marijuana (THC) Screen Not Detected (NotDetected) 03/17/17 15:46 Microbiology 03/18/17 13:29 Blood Blood Culture - Preliminary No Growth after 96 hours 03/18/17 14:13 Blood Blood Culture - Preliminary No Growth after 72 hours 03/17/17 15:28 Blood Blood Culture Gram Stain - Final 03/17/17 15:28 Blood Blood Culture - Final Staphylococcus epidermidis 03/17/17 15:28 Blood Blood Culture - Final Assessment and Plan (1) Multiple sclerosis exacerbation Status: Acute (2) Gram-positive cocci bacteremia Narrative/Plan: 37-year-old female presents to hospital with the several-day history of worsening of her MS symptoms. Her pain also was markedly increasing. She Presented Emergency Center Has Been Admitted for a Flare of Her MS. She's Been Seen by Her Neurologist. Steroid Fusions Have Begun. Her Other Medications Are Continuing As Prior. Pain Control Is an Issue for the Patient and Anesthesia Services Have Been Consulted. A possible culture has been noted with gram-positive cocci. Concern would be to this is underlying etiology of the flare her MS. Also be concerned about potential contamination. For now antibiotic therapy with vancomycin is being utilized. Follow blood cultures are requested. Ongoing supportive care. I do relate to the patient that I cannot change her pain medications that will need to come from the pain management service. She is one of our advanced beds and overlays are not indicated with this mattress. She was concerned about a urinary infection. At this time she has been seen by pain services. They will continue to monitor but will not be seeing her as an outpatient since. He has a pain clinic. The blood culture is a contamination and needs no further antibiotic therapy with vancomycin. does have urinary infection and Bactrim utilized. since she tolerates as well as a good response in the past.Cultures are negative. Still has significant bladder discomfort Pyridium was added for improved control of discomfort Status: Acute
[2017-03-22 17:26] LABS: Glucose,Whole Blood 142 mg/dL (75-99)
[2017-03-22] MEDS: PHENAZOPYRIDINE 200 MG TAB PO SCH ×2 (17:38→21:13)
[2017-03-22] MEDS: MONTELUKAST 10 MG TAB PO SCH (19:59)
[2017-03-22] MEDS: MELATONIN 3 MG TABLET PO SCH (19:59)
[2017-03-22 20:53] LABS: Glucose,Whole Blood 169 mg/dL (75-99)
[2017-03-22] MEDS ORDERED: QUEtiapine 200 MG TAB PO SCH (21:00)
[2017-03-23] MEDS: SODIUM CHLORIDE 0.9% 1,000 ML IV SCH (04:19)
[2017-03-23] MEDS: HYDROmorphone 1 MG/ML 1 ML SYRINGE IVP PRN ×2 (06:00→11:47)
[2017-03-23] MEDS: ONDANSETRON 4 MG/2 ML VIAL IVP PRN ×2 (06:06→11:46)
[2017-03-23] MEDS: LEVOTHYROXINE 50 MCG TAB PO SCH (06:35)
[2017-03-23] MEDS: LORazepam 2 MG/ML SYRINGE IV PRN (06:48)
[2017-03-23 07:41] LABS: Glucose,Whole Blood 109 mg/dL (75-99)
[2017-03-23 07:42] VITALS: BP 155/92; PULSE 76; RESP 16; TEMP 96.9
[2017-03-23] MEDS: INSULIN LISPRO (humaLOG) 300 UNIT/3 ML VIAL SQ SCH ×2 (07:55→09:59)
[2017-03-23] MEDS: tiZANidine 4 MG TAB PO SCH (10:13)
[2017-03-23] MEDS: PHENAZOPYRIDINE 200 MG TAB PO SCH ×2 (10:14→10:16)
[2017-03-23] MEDS: TOPIRAMATE 100 MG TAB PO SCH (10:14)
[2017-03-23] MEDS: ATORVASTATIN 10 MG TAB PO SCH (10:14)
[2017-03-23] MEDS: SERTRALINE 100 MG TAB PO SCH (10:15)
[2017-03-23] MEDS: LISINOPRIL 10 MG TAB PO SCH (10:15)
[2017-03-23] MEDS: CLOPIDOGREL 75 MG TAB PO SCH (10:15)
[2017-03-23] MEDS: oxyCODONE-APAP 10-325MG 1 EACH TAB PO PRN (10:16)
[2017-03-23] MEDS: SULFAMETHOX-TMP 800-160MG 1 EACH TAB PO SCH (10:16)
[2017-03-23] MEDS: amLODIPine 10 MG TAB PO SCH (10:16)
[2017-03-23] MEDS: LIDOCAINE 5% PATCH TOPICAL SCH (10:18)
[2017-03-23] MEDS: FAMOTIDINE 20 MG/2 ML VIAL IV SCH (10:18)
[2017-03-23] MEDS: OXYBUTYNIN CHLORIDE 5 MG TAB PO SCH (10:19)
[2017-03-23] MEDS: ENOXAPARIN 40 MG/0.4 ML SYRINGE SQ SCH (10:19)
[2017-03-23] MEDS: LACOSAMIDE 50 MG TABLET PO SCH (10:19)
[2017-03-23] MEDS: MORPHINE SULFATE ER 30 MG TABLET PO PRN (11:48)
[2017-03-23 12:05] LABS: Glucose,Whole Blood 92 mg/dL (75-99)
--- NOTE | 2017-03-23 13:21 | PN ---
SUBJECTIVE: A 37-year-old white female who was admitted with multiple sclerosis exacerbation and she is complaining of left shoulder pain after a fall on it. She thinks she might have injured her cartilage. She was requesting a MRI of her left shoulder. She has limited movement or ambulation due to her left arm and left leg. Physical therapy is supposed to be working with her. She is requesting increase in pain medicines and increasing anxiety medicines and possibly Ambien not working for sleeping. We discussed possible Seroquel. She has been on Seroquel in the past and it worked for her sleeping and her mood disorder. We discussed starting that back today and maybe increasing her anxiety medicine and await for psychiatry to see her. Vital signs are stable. Musculoskeletal: Tenderness to palpation to left shoulder. Limited range of motion of left shoulder. 3/5 strength in left leg. Labs are reviewed. Sugars are in the mid-100s. ASSESSMENT: 1. Multiple sclerosis exacerbation. 2. Probable bipolar. 3. Significant chronic pain for which she states she is not being treated. 4. Elevated white count secondary to urinary tract infection. 5. Gram-positive cocci bacteremia. Vancomycin is being continued until repeat cultures are done. Pain Services will be seeing her for pain medications. Please see further orders. Will give Seroquel 50 now, 200 at night which was her home dose before. Get Psych consult and continue with antibiotics per Dr. Cancino recommendations. IV steroids. Pain medicines per Pain Clinic. MTDD
[2017-03-24] MEDS ORDERED: methylPREDNISolone 4 MG TAB TAPER PO SCH (09:00)
== END 2017-03-23 14:46 | disposition home or self-care (01) | DRG 59 ==
LOC: EC 14:34 → 6SEL 17:13 → 4MS4W 03-21 11:58
PROVIDERS: ADMIT Family Medicine; ATTEND Family Medicine
DX: G35 Multiple sclerosis (principal); H46.9 Unspecified optic neuritis; G93.89 Other specified disorders of brain; E03.9 Hypothyroidism, unspecified; E28.2 Polycystic ovarian syndrome; E66.9 Obesity, unspecified; E78.5 Hyperlipidemia, unspecified; G40.909 Epilepsy, unspecified, not intractable, without status epilepticus; G47.00 Insomnia, unspecified; G81.94 Hemiplegia, unspecified affecting left nondominant side; G89.4 Chronic pain syndrome; I10 Essential (primary) hypertension; J44.9 Chronic obstructive pulmonary disease, unspecified; K21.9 Gastro-esophageal reflux disease without esophagitis; M79.7 Fibromyalgia; T38.0X5A Adverse effect of glucocorticoids and synthetic analogues, initial encounter; Z79.899 Other long term (current) drug therapy; Z82.49 Family history of ischemic heart disease and other diseases of the circulatory system; Z87.891 Personal history of nicotine dependence; Z91.19 Patient's noncompliance with other medical treatment and regimen; N30.10 Interstitial cystitis (chronic) without hematuria; F32.9 Major depressive disorder, single episode, unspecified; F41.9 Anxiety disorder, unspecified
CPT/HCPCS: 36415; 70030; 70450; 70553; 71020; 72050; 80048; 80053; 80202; 80306; 81001; 82550; 82553; 83036; 83605; 84443; 84484; 85025; 85610; 85730; 87040; 87077; 87186; 93005; 94640; 94760; 96361; 96365; 96375; 96376; 99291

== ENCOUNTER 2017-04-16 11:37 | Observation (INO) | payer MEDICARE, OTHER ==
[2017-04-16] MEDS ORDERED: SODIUM CHLORIDE 0.9% 1,000 ML IV ONE (12:02)
--- NOTE | 2017-04-16 12:22 | ED ---
Nausea/Vomiting/Diarrhea HPI - General Chief complaint: Nausea/Vomiting/Diarrhea Stated complaint: ABDOMINAL PAIN, DIARRHEA Time Seen by Provider: 04/16/17 11:52 Source: patient Mode of arrival: ambulatory Limitations: no limitations - History of Present Illness Initial comments: This 37-year-old female to history of MS and C. diff who presents here in [facility] for diarrhea for the last couple of days. She also admits to some left-sided weakness which is typical for her MS exacerbations have been present for the last couple of days as well. The patient was recently hospitalized for UTI, sepsis, and MS exacerbation. She rated received oral antibiotics for home which she has completed. She states the diarrhea started a couple of days ago and is foul-smelling. No blood in the stool. She admits to being nauseated but no vomiting. She admits to generalized abdominal pain however no further dysuria or hematuria. She states that she also has the left-sided weakness as mentioned above. She states that she was recently admitted to the hospital for UTI and sepsis with MS exacerbation and had weakness of the left side at that time as well. She states that she was started on steroids and her weakness resolved except for some mild weakness in the left lower extremity. She states that the weakness that she has now is severely worse and started when the diarrhea started. No headaches. No visual changes. No other complains. - Related Data Home Medications Medication Instructions Recorded Confirmed Albuterol Inhaler [Ventolin Hfa 2 puff INHALATION RT-QID PRN 12/09/13 04/16/17 Inhaler] Famotidine [Pepcid] 20 mg PO BID 12/09/13 04/16/17 Ipratropium/Albuterol Sulfate 1 puff INHALATION RT-QID PRN 12/09/13 04/16/17 [Combivent Respimat Inhaler] Montelukast [Singulair] 10 mg PO DAILY 12/09/13 04/16/17 Dimethyl Fumarate [Tecfidera] 240 mg PO BID 07/15/14 04/16/17 Ondansetron Odt [Zofran ODT] 4 mg PO Q8HR PRN 04/13/15 04/16/17 Ergocalciferol [Vitamin D2 50,000 unit PO MO 12/24/15 04/16/17 (DRISDOL)] Meclizine [Antivert] 25 mg PO BID PRN 12/24/15 04/16/17 Sertraline [Zoloft] 100 mg PO BID 12/24/15 04/16/17 Lisinopril [Prinivil] 10 mg PO DAILY 01/01/16 04/16/17 SUMAtriptan SUCCINATE [Imitrex] 100 mg PO BID PRN 01/01/16 04/16/17 Pentosan Polysulfate Sodium 100 mg PO TID 02/07/16 04/16/17 [Elmiron] Dicyclomine [Bentyl] 20 mg PO QID PRN 08/09/16 04/16/17 oxyCODONE-APAP 10-325MG [Percocet 1 tab PO Q4H PRN 08/09/16 04/16/17 10-325 mg] tiZANidine [Zanaflex] 8 mg PO QID 08/09/16 04/16/17 Dextroamphetamine/Amphetamine 30 mg PO DAILY 03/17/17 04/16/17 [Adderall] Lacosamide [Vimpat] 100 mg PO DAILY 03/17/17 04/16/17 Morphine Sulfate ER [Ms Contin 30 mg PO BID PRN 03/17/17 04/16/17 30Mg] Norgestrel-Ethinyl Estradiol 1 tab PO DAILY 03/17/17 04/16/17 [[id number] Tablet] Topiramate [Topamax] 200 mg PO BID 03/17/17 04/16/17 Previous Rx's Medication Instructions Recorded Oxybutynin Chloride [Ditropan] 5 mg PO TID #45 tab 12/24/15 Atorvastatin [Lipitor] 10 mg PO DAILY #30 tab 08/14/16 Clopidogrel [Plavix] 75 mg PO DAILY #30 tab 08/14/16 Levothyroxine Sodium [Synthroid] 50 mcg PO DAILY@0630 #30 tab 08/14/16 amLODIPine [Norvasc] 10 mg PO DAILY #30 tab 08/14/16 Allergies Allergy/AdvReac Type Severity Reaction Status Date / Time amoxicillin [Amoxicillin] Allergy Severe Anaphylaxis, Verified 04/16/17 11:57 seizures ciprofloxacin [From Cipro] Allergy Severe Rash/Hives, Verified 04/16/17 11:57 seizures codeine phosphate Allergy Unknown Rash/Hives Verified 04/16/17 11:57 [From Tylenol-Codeine #3] cefuroxime axetil Allergy Rash/Hives Verified 04/16/17 11:57 [From Ceftin] latex Allergy Rash/Hives Verified 04/16/17 11:57 NSAIDS (Non-Steroidal Allergy Rash/Hives/Lip Verified 04/16/17 11:57 Anti-Inflamma Swelling Review of Systems ROS Statement: Those systems with pertinent positive or pertinent negative responses have been documented in the HPI. ROS Other: All systems not noted in ROS Statement are negative. Past Medical History Past Medical History: Asthma, Fibromyalgia, GERD/Reflux, Hypertension, Musculoskeletal Disorder, Neurologic Disorder, Renal Disease, Seizure Disorder Additional Past Medical History / Comment(s): MS,tachcardia Other HX: Multiple Sclerosis, migraines, DJD, interstitial cystitis, UTI, PCOS, vit D deficiency, bilateral optic neuritis with visual problems, UTI, chronic pain, numbness/tingling R side of body. History of Any Multi-Drug Resistant Organisms: C-DIFF Date of last positivie culture/infection: 12/17/2014 MDRO Source:: stool Past Surgical History: Cholecystectomy, Orthopedic Surgery Additional Past Surgical History / Comment(s): Lt shoulder rotator cuff repair 06/06/14 @ [facility] pt has since re-torn, Arthroscopic left knee 2000 & 2002. ARTHROSCOPY LT SHOULDER. Past Anesthesia/Blood Transfusion Reactions: No Reported Reaction Additional Past Anesthesia/Blood Transfusion Reaction / Comment(s): Pt has never recieved blood. Past Psychological History: Anxiety, Depression Smoking Status: Former smoker Past Alcohol Use History: None Reported Past Drug Use History: None Reported - Past Family History Mother Family Medical History: No Reported History Additional Family Medical History / Comment(s): mother is healthy Father Family Medical History: Hypertension General Exam - General Exam Comments Initial Comments: Constitutional: Awake alert Appears comfortable Head: Normocephalic atraumatic Eyes: no conjunctival injection No scleral icterus EOMI, pupils are 4 mm reactive bilaterally Neck: No JVD Supple Heart: Regular rate rhythm normal S1-S2 no murmurs Lungs: Clear to auscultation bilaterally No wheezing No rales Abdomen: Soft nondistended mildly tender throughout the abdomen without rebound or guarding Extremities: Non edematous DP pulses intact Radial pulses intact Neuro: A&Ox3 the patient has 2 out of 5 strength in the left upper extremity and 3-4 out of 5 strength of the left lower extremity. Sensation intact in all extremities. Psych: Appropriate mood and affect Limitations: no limitations Course Vital Signs 04/16/17 04/16/17 04/16/17 11:39 12:41 14:42 Temperature 98.5 F Pulse Rate 92 82 82 Respiratory 18 18 18 Rate Blood Pressure 188/105 173/82 186/91 O2 Sat by Pulse 99 98 100 Oximetry Medical Decision Making - Medical Decision Making This is a 37-year-old female who presented for diarrhea. She was concerned for C. diff however has been unable to leave me a sample since being the emergency department. I doubt C. diff. CT showed enteritis and no colitis. However the patient is having left-sided weakness. This weakness is practically the same as when she had her urinary tract infection for weeks ago. She had a CT of her brain and an MRI of her brain at that time that showed MS. At this time I do not feel that a CAT scan is necessary because this is typical symptoms for her MS exacerbations. I'd like to keep her in the hospital for IV steroids. I spoke with Dr. Soto who accepts the admission. Neurology was placed on consult. - Lab Data Result diagrams: 04/16/17 13:13 04/16/17 13:13 Lab Results 04/16/17 04/16/17 04/16/17 Range/Units 12:20 12:20 13:13 WBC 9.8 (3.8-10.6) k/uL RBC 4.46 (3.80-5.40) m/uL Hgb 13.0 (11.4-16.0) gm/dL Hct 39.3 (34.0-46.0) % MCV 88.1 (80.0-100.0) fL MCH 29.3 (25.0-35.0) pg MCHC 33.2 (31.0-37.0) g/dL RDW 14.2 (11.5-15.5) % Plt Count 582 H (150-450) k/uL Neutrophils % 63 % Lymphocytes % 27 % Monocytes % 6 % Eosinophils % 1 % Basophils % 0 % Neutrophils # 6.2 (1.3-7.7) k/uL Lymphocytes # 2.7 (1.0-4.8) k/uL Monocytes # 0.6 (0-1.0) k/uL Eosinophils # 0.1 (0-0.7) k/uL Basophils # 0.0 (0-0.2) k/uL Sodium (137-145) mmol/L Potassium (3.5-5.1) mmol/L Chloride (98-107) mmol/L Carbon Dioxide (22-30) mmol/L Anion Gap mmol/L BUN (7-17) mg/dL Creatinine (0.52-1.04) mg/dL Est GFR (MDRD) Af Amer (>60 ml/min/1.73 sqM) Est GFR (MDRD) Non-Af (>60 ml/min/1.73 sqM) Glucose (74-99) mg/dL Calcium (8.4-10.2) mg/dL Magnesium (1.6-2.3) mg/dL Total Bilirubin (0.2-1.3) mg/dL AST (14-36) U/L ALT (9-52) U/L Alkaline Phosphatase (38-126) U/L Total Protein (6.3-8.2) g/dL Albumin (3.5-5.0) g/dL Lipase (23-300) U/L Urine Color Yellow Urine Appearance Cloudy H (Clear) Urine pH 5.5 (5.0-8.0) Ur Specific [place] 1.013 (1.001-1.035) Urine Protein Negative (Negative) Urine Glucose (UA) Negative (Negative) Urine Ketones Negative (Negative) Urine Blood Moderate H (Negative) Urine Nitrite Negative (Negative) Urine Bilirubin Negative (Negative) Urine Urobilinogen <2.0 (<2.0) mg/dL Ur Leukocyte Esterase Large H (Negative) Urine RBC 8 H (0-5) /hpf Urine WBC 8 H (0-5) /hpf Ur Squamous Epith Cells 10 H (0-4) /hpf Urine Bacteria Rare H (None) /hpf Urine Mucus Occasional H (None) /hpf Urine HCG, Qual Not Detected (Not Detectd) 04/16/17 Range/Units 13:13 WBC (3.8-10.6) k/uL RBC (3.80-5.40) m/uL Hgb (11.4-16.0) gm/dL Hct (34.0-46.0) % MCV (80.0-100.0) fL MCH (25.0-35.0) pg MCHC (31.0-37.0) g/dL RDW (11.5-15.5) % Plt Count (150-450) k/uL Neutrophils % % Lymphocytes % % Monocytes % % Eosinophils % % Basophils % % Neutrophils # (1.3-7.7) k/uL Lymphocytes # (1.0-4.8) k/uL Monocytes # (0-1.0) k/uL Eosinophils # (0-0.7) k/uL Basophils # (0-0.2) k/uL Sodium 139 (137-145) mmol/L Potassium 4.1 (3.5-5.1) mmol/L Chloride 110 H (98-107) mmol/L Carbon Dioxide 16 L (22-30) mmol/L Anion Gap 13 mmol/L BUN 5 L (7-17) mg/dL Creatinine 0.61 (0.52-1.04) mg/dL Est GFR (MDRD) Af Amer >60 (>60 ml/min/1.73 sqM) Est GFR (MDRD) Non-Af >60 (>60 ml/min/1.73 sqM) Glucose 85 (74-99) mg/dL Calcium 9.9 (8.4-10.2) mg/dL Magnesium 1.7 (1.6-2.3) mg/dL Total Bilirubin 0.2 (0.2-1.3) mg/dL AST 17 (14-36) U/L ALT 31 (9-52) U/L Alkaline Phosphatase 52 (38-126) U/L Total Protein 7.1 (6.3-8.2) g/dL Albumin 4.5 (3.5-5.0) g/dL Lipase 101 (23-300) U/L Urine Color Urine Appearance (Clear) Urine pH (5.0-8.0) Ur Specific [place] (1.001-1.035) Urine Protein (Negative) Urine Glucose (UA) (Negative) Urine Ketones (Negative) Urine Blood (Negative) Urine Nitrite (Negative) Urine Bilirubin (Negative) Urine Urobilinogen (<2.0) mg/dL Ur Leukocyte Esterase (Negative) Urine RBC (0-5) /hpf Urine WBC (0-5) /hpf Ur Squamous Epith Cells (0-4) /hpf Urine Bacteria (None) /hpf Urine Mucus (None) /hpf Urine HCG, Qual (Not Detectd) Disposition Clinical Impression: Multiple sclerosis exacerbation, Enteritis Disposition: ADMITTED IP TO THIS HOSP Condition: Stable Referrals: Neno Quinones MD [Primary Care Provider] - 1-2 days
[2017-04-16 13:10] LABS: Appearance,Urine Cloudy (Clear); Bacteria,Urine Rare /hpf; Bilirubin,Urine Negative (Negative); Glucose,Urine (UA) Negative (Negative); Ketones,Urine Negative (Negative); Leukocyte Esterase,Urine Large (Negative); Mucus,Urine Occasional /hpf; Nitrite,Urine Negative (Negative); PH, Urine 5.5 (5.0-8.0); Particle Count 10069; Protein,Urine Negative (Negative); RBC,Urine 8 /hpf (0-5); Specific Gravity,Urine 1.013 (1.001-1.035); Squamous Epithelial Cell,Urine 10 /hpf (0-4); UA Billing (MACRO vs. MICRO) MICRO; Urobilinogen,Urine <2.0 mg/dL (<2.0); WBC,Urine 8 /hpf (0-5)
[2017-04-16] MEDS ORDERED: MORPHINE SULFATE 4 MG/ML SYRINGE IVP STA (13:23)
[2017-04-16] MEDS ORDERED: ONDANSETRON 4 MG/2 ML VIAL IVP STA (13:23)
[2017-04-16 13:28] LABS: Basophils % (A) 0 %; CH 29.2; CHCM 33.3; Eosinophils # (A) 0.1 k/uL (0-0.7); Eosinophils % (A) 1 %; HCT 39.3 % (34.0-46.0); HDW 2.68; Luc # (Auto) 0.27; Luc % (Auto) 3; Lymphocytes # (A) 2.7 k/uL (1.0-4.8); Lymphocytes % (A) 27 %; MCH 29.3 pg (25.0-35.0); MCHC 33.2 g/dL (31.0-37.0); MCV 88.1 fL (80.0-100.0); Mean Platelet Volume 7.2; Monocytes # (A) 0.6 k/uL (0-1.0); Monocytes % (A) 6 %; Neutrophils # (A) 6.2 k/uL (1.3-7.7); Neutrophils % (A) 63 %; RBC 4.46 m/uL (3.80-5.40); RDW 14.2 % (11.5-15.5); WBC 9.8 k/uL (3.8-10.6); WBC (Perox) 10.28
[2017-04-16 13:33] LABS: ALT 31 U/L (9-52); AST 17 U/L (14-36); Alkaline Phosphatase 52 U/L (38-126); Anion Gap 13 mmol/L; Blood Urea Nitrogen 5 mg/dL (7-17); Calcium 9.9 mg/dL (8.4-10.2); Carbon Dioxide 16 mmol/L (22-30); Chloride 110 mmol/L (98-107); Glucose 85 mg/dL (74-99); Non-African American GFR(MDRD) >60 (>60 ml/min/1.73 sqM); Potassium 4.1 mmol/L (3.5-5.1); Sodium 139 mmol/L (137-145); Total Bilirubin 0.2 mg/dL (0.2-1.3); Total Protein 7.1 g/dL (6.3-8.2)
[2017-04-16 13:42] LABS: Magnesium 1.7 mg/dL (1.6-2.3)
[2017-04-16] MEDS ORDERED: HYDROmorphone 1 MG/ML 1 ML SYRINGE IVP STA (14:22)
--- NOTE | 2017-04-16 15:22 | CT ---
EXAMINATION TYPE: CT abdomen pelvis wo con DATE OF EXAM: 04/16/2017 COMPARISON: Prior CT 11/28/2014 HISTORY: Abdominal pain and diarrhea CT DLP: 1046.3 mGycm Automated exposure control for dose reduction was used. TECHNIQUE: Helical acquisition of images from the lung bases through the pelvis. FINDINGS: LUNG BASES: No significant abnormality is appreciated. AORTA: No significant abnormality is seen, lack of contrast could compromise sensitivity. LIVER/GB: The liver is enlarged. There may be underlying hepatic steatosis. Gallbladder is absent. PANCREAS: No significant abnormality is seen. SPLEEN: No significant abnormality is seen. ADRENALS: No significant abnormality is seen. KIDNEYS: No significant abnormality is seen. REPRODUCTIVE ORGANS: No significant abnormality is seen. URINARY BLADDER: Not distended BOWEL: Small bowel loops show fluid-filled appearance. There is no evident obstruction. No bowel dis tention. Appendix is not seen. FREE AIR: No Free Air is visible. ASCITES: None visible. PELVIC ADENOPATHY: None visualized. RETROPERITONEAL ADENOPATHY: No Retroperitoneal Adenopathy visible. OSSEOUS STRUCTURES: No significant abnormality is seen. IMPRESSION: FINDINGS SUGGEST ENTERITIS. NONCONTRAST EXAM. POSTOP CHANGES. HEPATIC STEATOSIS. FOLLOW-UP INDICAT ED.
[2017-04-16] MEDS ORDERED: MECLIZINE 25 MG TAB PO PRN (15:33)
[2017-04-16] MEDS ORDERED: NALOXONE 0.4 MG/ML 1 ML VIAL IV PRN (15:35)
[2017-04-16] MEDS ORDERED: NON-FORMULARY DRUG (Pentosan Polysulfate Sodium [Elmiron] 100 MG) PO SCH (16:00)
[2017-04-16] MEDS ORDERED: HYDROmorphone 1 MG/ML 1 ML SYRINGE IVP PRN (17:04)
[2017-04-16] MEDS ORDERED: TEMAZEPAM 15 MG CAP PO PRN (17:35)
[2017-04-16] MEDS ORDERED: SUMAtriptan SUCCINATE 50 MG TAB PO PRN (17:36)
[2017-04-16] MEDS ORDERED: ALBUTEROL NEBULIZED 2.5 MG/3 ML INHALATION PRN (17:36)
[2017-04-16] MEDS: OXYBUTYNIN CHLORIDE 5 MG TAB PO SCH ×2 (20:12→21:09)
[2017-04-16] MEDS: oxyCODONE-APAP 10-325MG 1 EACH TAB PO PRN (20:15)
[2017-04-16 20:28] LABS: Hemoglobin A1C 5.7 % (4.2-6.1)
[2017-04-16] MEDS: methylPREDNISolone SOD SUCCI 250 MG in SODIUM CHLORIDE 0.9% 100 ML IVPB SCH (20:32)
[2017-04-16] MEDS ORDERED: NON-FORMULARY DRUG (Dimethyl Fumarate [Tecfidera] 240 MG) PO SCH (21:00)
[2017-04-16] MEDS: ONDANSETRON 4 MG/2 ML VIAL IVP PRN (21:05)
[2017-04-16] MEDS: HYDROmorphone 1 MG/ML 1 ML SYRINGE IVP PRN (21:05)
[2017-04-16] MEDS: metroNIDAZOLE 500 MG TAB PO SCH (21:09)
[2017-04-16] MEDS: tiZANidine 4 MG TAB PO SCH (21:09)
[2017-04-16] MEDS: TOPIRAMATE 100 MG TAB PO SCH (21:09)
[2017-04-16] MEDS: FAMOTIDINE 20 MG TAB PO SCH (21:09)
[2017-04-16] MEDS: SERTRALINE 100 MG TAB PO SCH (21:09)
[2017-04-16] MEDS: INSULIN LISPRO (humaLOG) 300 UNIT/3 ML VIAL SQ SCH (21:10)
[2017-04-16] MEDS: HEPARIN SODIUM,PORCINE 5,000 UNIT/ML 1 ML VIAL SQ SCH (21:12)
[2017-04-16 21:25] LABS: Glucose,Whole Blood 100 mg/dL (75-99)
[2017-04-16] MEDS: MORPHINE SULFATE ER 30 MG TABLET PO PRN (23:16)
--- NOTE | 2017-04-17 00:07 | HP ---
HISTORY AND PHYSICAL CHIEF COMPLAINTS: Nausea, vomiting, diarrhea as well as weakness on the left side. HISTORY OF PRESENT ILLNESS: This 37-year-old woman with a past medical history of multiple medical problems, including multiple sclerosis, history of seizures, being followed by Dr. Quinones in the outpatient setting, also had some antibiotics recently. The patient was complaining of increasing diarrhea for the last several days. The patient was also complaining of weakness of the left side of the body; patient unable to move it clearly, and the patient came to [facility] and was admitted for further evaluation and treatment. There is no history of any fever, rigor or chills; no history of headache, loss of consciousness, seizures. PAST MEDICAL HISTORY: 1. History of multiple sclerosis. 2. History of fibromyalgia. 3. History of asthma. 4. History of tachycardia. 5. History of cholecystectomy. 6. History of C difficile colitis. HOME MEDICATIONS: 1. Zanaflex 8 mg p.o. q.i.d. 2. Oxycodone 1 tablet q.4 hours p.r.n. 3. Norvasc 10 mg p.o. daily. 4. Topamax 200 mg p.o. b.i.d. 5. Zoloft 100 mg p.o. b.i.d. 6. Imitrex 100 mg b.i.d. p.r.n. 7. Elmiron 100 mg p.o. t.i.d. 8. Ditropan 5 mg p.o. t.i.d. 9. Zofran 4 mg q.8 p.r.n. 10.Low-dose estrogen 1 p.o. daily. 11.MS Contin 30 mg b.i.d. p.r.n. 12.Singulair 10 mg p.o. daily. 13.Antivert 25 mg b.i.d. p.r.n. 14.Prinivil 10 mg p.o. daily. 15.Synthroid 50 mcg p.o. daily. 16.Vimpat 100 mg p.o. daily. 17.Combivent 1 puff q.i.d. p.r.n. 18.Pepcid 20 mg p.o. b.i.d. 19.Vitamin D2 50,000 p.o. Friday. 20.Tecfidera 240 mg p.o. b.i.d. 21.Bentyl 20 mg p.o. q.i.d. p.r.n. 22.Adderall 30 mg p.o. daily. 23.Plavix 75 mg p.o. daily. 24.Lipitor 10 mg p.o. daily. 25.Ventolin 2 puffs q.i.d. p.r.n. ALLERGIES: 1. AMOXICILLIN. 2. CIPRO. 3. CODEINE. 4. CEFTIN. 5. LATEX. 6. NSAIDS. FAMILY HISTORY: No history of heart disease or strokes in the family. SOCIAL HISTORY: Previous history of smoking. No current smoking or alcohol intake. REVIEW OF SYSTEMS: ENT: No diminished hearing. No diminished vision. CARDIOVASCULAR SYSTEM: No angina. RESPIRATION: No cough, hemoptysis. GI: As mentioned earlier. : No dysuria, retention. NERVOUS SYSTEM: As mentioned earlier. ALLERGY/IMMUNOLOGY: No asthma, hayfever. MUSCULOSKELETAL: As mentioned earlier. HEMATOLOGY/ONCOLOGY: No history of anemia. ENDOCRINE: Hypothyroidism. CONSTITUTIONAL: As mentioned earlier. DERMATOLOGY: Negative. RHEUMATOLOGY: As mentioned earlier. PSYCHIATRY: As mentioned earlier. PHYSICAL EXAMINATION: Patient is alert and oriented x3. Pulse 98, blood pressure 192/94, respiration 18, temperature 98 degrees, pulse ox 99% on room air. HEENT: Conjunctivae normal. Oral mucosa moist. NECK: No jugular venous distention. No carotid bruit. No lymph node enlargement. CARDIOVASCULAR SYSTEM: S1, S2 muffled. No S3. No S4. RESPIRATION: Breath sounds diminished at the bases. A few scattered rhonchi. No crackles. ABDOMEN: Soft, non-tender. No mass palpable. LEGS: No edema. No swelling. NERVOUS SYSTEM: Higher functions as mentioned earlier. Moves all 4 limbs. There is significant weakness of the left upper and left lower limbs present. Some contractures also present. No sensory abnormalities. SKIN: No ulcer, rash or bleeding. JOINTS: No active deforming arthropathy. LABS: CBC noted. Platelets are 582. Sodium 139, potassium 4.1. UA noted. ASSESSMENT: 1. Acute weakness of the left side; possibly multiple sclerosis, acute exacerbation. 2. Acute diarrheal disease. Rule out C difficile colitis. 3. Rule out active urinary tract infection. 4. History of multiple sclerosis. 5. History of gastroesophageal reflux disease. 6. History of fibromyalgia. 7. History of asthma. 8. History of chronic pain syndrome. 9. History of seizure disorder. 10.History of degenerative joint disease. 11.History of interstitial cystitis. 12.History of bilateral optic neuritis. 13.History of Clostridium difficile colitis. 14.History of anxiety, depression. RECOMMENDATION AND DISCUSSION: In this 37-year-old woman who presented with multiple complex medical issues, we will monitor the patient closely, continue the current medications, continue symptomatic treatment. Otherwise, at this time high-dose IV steroids. Neurology consultation. C difficile evaluation. A CT scan of the abdomen pelvis was done in the ER which showed possible enteritis and hepatic steatosis. Further recommendations to follow. Flagyl will be initiated empirically. Sliding scale and Accu-Cheks before meals and at bedtime. See orders for further details. The prognosis is guarded. MMODL / IJN: [id number] /
[2017-04-17] MEDS: oxyCODONE-APAP 10-325MG 1 EACH TAB PO PRN ×4 (00:09→15:41)
[2017-04-17] MEDS: HYDROmorphone 1 MG/ML 1 ML SYRINGE IVP PRN ×6 (01:04→21:23)
[2017-04-17] MEDS: methylPREDNISolone SOD SUCCI 250 MG in SODIUM CHLORIDE 0.9% 100 ML IVPB SCH ×4 (01:37→17:41)
[2017-04-17] MEDS: ONDANSETRON 4 MG/2 ML VIAL IVP PRN ×3 (04:59→21:24)
[2017-04-17] MEDS: LEVOTHYROXINE 50 MCG TAB PO SCH (06:24)
[2017-04-17 07:29] LABS: Glucose,Whole Blood 152 mg/dL (75-99)
[2017-04-17 08:34] LABS: ALT 25 U/L (9-52); AST 19 U/L (14-36); Alkaline Phosphatase 38 U/L (38-126); Anion Gap 16 mmol/L; Blood Urea Nitrogen 9 mg/dL (7-17); Calcium 10.2 mg/dL (8.4-10.2); Carbon Dioxide 19 mmol/L (22-30); Chloride 107 mmol/L (98-107); Glucose 175 mg/dL (74-99); Non-African American GFR(MDRD) >60 (>60 ml/min/1.73 sqM); Potassium 4.6 mmol/L (3.5-5.1); Sodium 142 mmol/L (137-145); Total Bilirubin 0.3 mg/dL (0.2-1.3); Total Protein 7.1 g/dL (6.3-8.2)
[2017-04-17] MEDS: HEPARIN SODIUM,PORCINE 5,000 UNIT/ML 1 ML VIAL SQ SCH ×2 (08:54→21:29)
[2017-04-17] MEDS: PANTOPRAZOLE 40 MG TABLET PO SCH (08:55)
[2017-04-17] MEDS: LISINOPRIL 10 MG TAB PO SCH (08:55)
[2017-04-17] MEDS: ATORVASTATIN 10 MG TAB PO SCH (08:55)
[2017-04-17] MEDS: tiZANidine 4 MG TAB PO SCH ×4 (08:55→21:35)
[2017-04-17] MEDS: INSULIN LISPRO (humaLOG) 300 UNIT/3 ML VIAL SQ SCH ×4 (08:55→21:32)
[2017-04-17] MEDS: CLOPIDOGREL 75 MG TAB PO SCH (08:55)
[2017-04-17] MEDS: FAMOTIDINE 20 MG TAB PO SCH (08:55)
[2017-04-17] MEDS: amLODIPine 10 MG TAB PO SCH (08:55)
[2017-04-17] MEDS: metroNIDAZOLE 500 MG TAB PO SCH ×3 (08:55→22:10)
[2017-04-17] MEDS: SERTRALINE 100 MG TAB PO SCH ×2 (08:55→22:10)
[2017-04-17] MEDS: OXYBUTYNIN CHLORIDE 5 MG TAB PO SCH ×3 (08:55→22:10)
[2017-04-17] MEDS: MONTELUKAST 10 MG TAB PO SCH (08:55)
[2017-04-17] MEDS ORDERED: NON-FORMULARY DRUG (Dextroamphetamine/Amphetamine [Adderall] 30 MG) PO SCH (09:00)
[2017-04-17] MEDS ORDERED: NORGESTREL ETHINYL ESTRADIOL PO SCH (09:00)
[2017-04-17 09:02] LABS: Basophils % (A) 0 %; CH 28.8; Eosinophils % (A) 0 %; HCT 40.4 % (34.0-46.0); HDW 2.59; Luc # (Auto) 0.06; Luc % (Auto) 1; Lymphocytes % (A) 8 %; MCH 29.1 pg (25.0-35.0); MCHC 32.1 g/dL (31.0-37.0); MCV 90.5 fL (80.0-100.0); Mean Platelet Volume 6.7; Monocytes # (A) 0.1 k/uL (0-1.0); Monocytes % (A) 1 %; Neutrophils # (A) 11.2 k/uL (1.3-7.7); Neutrophils % (A) 90 %; RBC 4.46 m/uL (3.80-5.40); RDW 14.1 % (11.5-15.5); WBC 12.4 k/uL (3.8-10.6); WBC (Perox) 12.53
[2017-04-17] MEDS: ALPRAZolam 0.25 MG TAB PO PRN ×3 (09:04→21:49)
[2017-04-17] MEDS: LACOSAMIDE 50 MG TABLET PO SCH (10:14)
[2017-04-17] MEDS: TOPIRAMATE 100 MG TAB PO SCH ×2 (10:15→22:10)
[2017-04-17] MEDS: DICYCLOMINE 20 MG TAB PO PRN ×2 (10:16→17:41)
[2017-04-17 10:20] VITALS: BMI 32.3
[2017-04-17] MEDS: MORPHINE SULFATE ER 30 MG TABLET PO PRN (11:45)
[2017-04-17] MEDS: MULTIVITAMINS, THERA 1 EACH TAB PO SCH (11:45)
[2017-04-17 12:02] LABS: Glucose,Whole Blood 166 mg/dL (75-99)
[2017-04-17] MEDS ORDERED: hydrALAZINE HCL 20 MG/ML 1 ML VIAL IVP PRN (14:42)
[2017-04-17] MEDS ORDERED: cloNIDine HCL 0.1 MG TAB PO PRN (14:42)
[2017-04-17] MEDS: IPRATROPIUM-ALBUTEROL 3 ML NEB INHALATION PRN ×2 (15:45→19:49)
[2017-04-17 17:07] LABS: Glucose,Whole Blood 203 mg/dL (75-99)
[2017-04-17] MEDS ORDERED: DIAZEPAM 5 MG/ML 2 ML SYRINGE IVP PRN (20:19)
[2017-04-17 20:34] LABS: Glucose,Whole Blood 231 mg/dL (75-99)
[2017-04-17] MEDS: MORPHINE SULFATE ER 30 MG TABLET PO SCH (21:33)
--- NOTE | 2017-04-17 21:41 | PN ---
PROGRESS NOTE DATE OF SERVICE: 04/17/2017 This 37-year-old woman who was admitted with nausea, vomiting and diarrhea as well as weakness on the left side is being treated for possible MS, acute exacerbation. The patient had diarrhea, but C difficile is not being checked yet; stool is not available. Past medical history reviewed. REVIEW OF SYSTEMS: CARDIOVASCULAR SYSTEM: No angina. RESPIRATION: As mentioned earlier. GI: As mentioned earlier. : No dysuria, retention. NERVOUS SYSTEM: As mentioned earlier.. CURRENT MEDICATIONS: 1. Ventolin 2.5 q.i.d. p.r.n. 2. DuoNeb q.i.d. and p.r.n. 3. Xanax 0.25 t.i.d. 4. Norvasc 10 mg daily. 5. Lipitor 10 mg p.o. daily. 6. Plavix 75 mg daily. 7. Bentyl 20 mg q.i.d. 8. Vitamin D2 50,000 units. 9. Pepcid 20 mg b.i.d. 10.Heparin 5000 unit subcutaneously b.i.d. 11.Dilaudid 0.5 q.4. 12.Vimpat 100 mg p.o. daily. 13.Synthroid 50 mcg p.o. daily. 14.Zestril 10 mg daily. 15.Antivert. 16.Solu-Medrol 250 IV q.6. 17.Flagyl 250 mg p.o. t.i.d. 18.Singulair. 19.MS Contin 30 mg p.o. b.i.d. 20.Multivitamins. 22.P.R.N. medications. PHYSICAL EXAMINATION: Patient is alert, oriented x3. Pulse 89, blood pressure 155/109, respirations 16 , temperature 98.3, pulse ox 98% room air. HEENT: Conjunctivae normal. Oral mucosa moist. NECK: No jugular venous distention. No lymph node enlargement. CARDIOVASCULAR SYSTEM: S1, S2 muffled. RESPIRATION: Breath sounds diminished at the bases. Scattered rhonchi and crackles. ABDOMEN: Soft, non-tender. No mass palpable. LEGS: No edema. No swelling. NERVOUS SYSTEM: Higher functions as mentioned earlier. Otherwise, significant weakness of the left side, upper and lower limbs, present. No sensory abnormality. SKIN: No ulcer, rash or bleeding. LABS: WBC 12.4, platelets 621. UA shows positive opiates and oxycodone. ASSESSMENT: 1. Weakness of the left side, possibly multiple sclerosis, acute exacerbation. 2. Acute diarrheal disease; C difficile to be ruled out. Possibly antibiotic- induced. 3. Rule out urinary tract infection. 4. History of multiple sclerosis. 5. History of gastroesophageal reflux disease. 6. History of fibromyalgia. 7. History of asthma. 8. History of chronic pain syndrome. 9. History of seizure disorder. 10.History of degenerative joint disease. 11.History of interstitial cystitis. 12.Bilateral optic neuritis history. 13.History of Clostridium difficile colitis. 14.History of anxiety and depression. RECOMMENDATION AND DISCUSSION: I recommend to continue current medication, continue symptomatic treatment. The patient is on high-dose IV steroids. I would also recommend PT OT evaluation. The patient is also complaining of severe pain. Will continue the current pain medications. Recommend outpatient followup with evaluation of pain and treatment. Otherwise, DVT prophylaxis. Monitor blood sugars closely. Continue the rest of the medications. PT/OT will be consulted. Cultures also will be obtained. Further recommendations to follow. Prognosis guarded. MMODL / IJN: [id number] / MTDD
[2017-04-18] MEDS: methylPREDNISolone SOD SUCCI 250 MG in SODIUM CHLORIDE 0.9% 100 ML IVPB SCH ×3 (02:20→11:01)
[2017-04-18] MEDS: DICYCLOMINE 20 MG TAB PO PRN ×2 (02:45→15:06)
[2017-04-18] MEDS: HYDROmorphone 1 MG/ML 1 ML SYRINGE IVP PRN ×5 (02:45→15:57)
[2017-04-18] MEDS: LEVOTHYROXINE 50 MCG TAB PO SCH (06:44)
[2017-04-18] MEDS: ALPRAZolam 0.25 MG TAB PO PRN ×2 (06:46→15:06)
[2017-04-18 07:09] LABS: Glucose,Whole Blood 142 mg/dL (75-99)
[2017-04-18] MEDS: ONDANSETRON 4 MG/2 ML VIAL IVP PRN ×2 (07:45→15:57)
[2017-04-18] MEDS: amLODIPine 10 MG TAB PO SCH (07:47)
[2017-04-18] MEDS: ATORVASTATIN 10 MG TAB PO SCH (07:47)
[2017-04-18] MEDS: CLOPIDOGREL 75 MG TAB PO SCH (07:47)
[2017-04-18] MEDS: PANTOPRAZOLE 40 MG TABLET PO SCH (07:47)
[2017-04-18] MEDS: HEPARIN SODIUM,PORCINE 5,000 UNIT/ML 1 ML VIAL SQ SCH (07:47)
[2017-04-18] MEDS: SERTRALINE 100 MG TAB PO SCH (07:48)
[2017-04-18] MEDS: MONTELUKAST 10 MG TAB PO SCH (07:48)
[2017-04-18] MEDS: metroNIDAZOLE 500 MG TAB PO SCH ×2 (07:48→15:06)
[2017-04-18] MEDS: LISINOPRIL 10 MG TAB PO SCH (07:48)
[2017-04-18] MEDS: TOPIRAMATE 100 MG TAB PO SCH (07:48)
[2017-04-18] MEDS: OXYBUTYNIN CHLORIDE 5 MG TAB PO SCH ×2 (07:48→15:06)
[2017-04-18] MEDS: tiZANidine 4 MG TAB PO SCH ×2 (07:49→12:20)
[2017-04-18] MEDS: LACOSAMIDE 50 MG TABLET PO SCH (07:55)
[2017-04-18] MEDS: INSULIN LISPRO (humaLOG) 300 UNIT/3 ML VIAL SQ SCH ×2 (07:56→12:22)
--- NOTE | 2017-04-18 08:54 | CONS ---
CONSULTATION DATE OF CONSULTATION: 04/17/2017. CHIEF COMPLAINT: Multiple sclerosis exacerbation. HISTORY OF PRESENT ILLNESS: The patient is a 37-year-old, female, who was being evaluated by the neurology service per the request of Dr. Soto for left-sided weakness. The patient was brought into [facility] Emergency Room with multiple vague complaints including nausea, vomiting, and diarrhea. She also has been having weakness involving her left side for the past couple of days. She does have history of multiple sclerosis and does take Tecfidera twice daily at home. She treats with out of town neurologists for this. She also reports some sensory deficit on the left side. She has also noticed some blurred vision mostly involving her left eye but denies any eye pain. She does complain of chronic low back pain and lower extremity pain. She is on multiple analgesics at home including MS Contin 60 mg in the morning, 30 mg in the afternoon, and 30 mg at bedtime. She also takes Percocet 10 mg 4-5 times daily. On this admission, she is also receiving Dilaudid 0.5 mg to 1 mg IV as needed. I did review her laboratory workup and her CBC showed leukocytosis at 12.4, and thrombocytosis at 621,000. Her comprehensive metabolic profile was normal except for hyperglycemia at 175. Her C diff was negative. Her urine drug screen was positive for opiates and oxycodone. This is consistent with her home medications. At the time of my evaluation, the patient is lying in her bed and appears to be in no acute distress. She denies any changes in her left-sided symptoms. She has been started on IV Solu- Medrol. PAST MEDICAL HISTORY: Multiple sclerosis, fibromyalgia, chronic pain syndrome, chronic lumbago, asthma, history of C difficile colitis, migraines, history of cholecystectomy. FAMILY HISTORY: Noncontributory. SOCIAL HISTORY: The patient is a previous/former smoker. She denies any alcohol or drug use. HOME MEDICATIONS: Reviewed in the chart. ALLERGIES: AMOXICILLIN, CIPRO, CODEINE, CEFTIN, LATEX, NSAIDS. REVIEW OF SYSTEMS: Constitutional: Positive for fatigue. Eyes: As mentioned above. EENT: Negative. Cardiovascular: Negative. Respiratory: Negative. Neurological: As mentioned above. Gastrointestinal: As mentioned above. Genitourinary: Negative. Psychiatric: Positive for attention deficit disorder and depression. Endocrine: Positive for hypothyroidism. Dermatological: Negative. Musculoskeletal: As mentioned above. PHYSICAL EXAM: Vital signs show a temperature of 97, pulse 82, respiration 18, blood pressure 112/57. GENERAL APPEARANCE: The patient is a mildly obese female who appears to be in no acute distress. HEENT: Normocephalic, atraumatic, no facial asymmetry is seen, extraocular muscles are intact. NECK: Supple with no masses felt. CARDIOVASCULAR: Regular rate and rhythm. ABDOMEN: Nontender nondistended. EXTREMITIES: Showed no edema or clubbing. NEUROLOGICAL EXAM: The patient is awake, alert, and oriented x3. Speech and language are normal. Strength is 3+ out of 5 in the left upper extremity, 3/5 in the left lower extremity, and 5/5 on the right side. Sensory exam showed diminished light touch sensation on the left compared to the right. Pronator drift is present on the left. Cranial nerve testing showed decreased light touch sensation on the left face compared to the right. No facial weakness is seen. No tremors are noticed. IMPRESSION: 1. Acute multiple sclerosis exacerbation. 2. Left hemiparesis. 3. Left-sided sensory deficit. 4. Chronic pain syndrome. RECOMMENDATION: The patient does appear to be having an acute multiple sclerosis exacerbation with left- sided weakness and sensory deficit. Continue IV Solu-Medrol 250 mg every 8 hours. Continue Accu-Cheks and sliding scale insulin. I will consult Physical therapy and Occupational therapy. I will order an MRI of the brain and cervical spine. The patient also reports a history of seizures. An EEG will be ordered. As for her analgesics, she is on significantly high doses of morphine equivalents per day. I will keep her on her home dose of MS Contin at 60 mg in the morning, 30 mg in the afternoon, and 30 mg at bedtime. Since she is receiving IV Dilaudid as needed, I will discontinue her Percocet. I had a lengthy discussion with her regarding these and other treatment options for her chronic pain. This will be discussed further in outpatient setting. Continue the rest of your current workup and management. Continue neuro checks. I will continue to follow with you. Further recommendations to follow. Thank you for allowing me to participate in the care of your patient. If you have any questions, please feel free to contact me. JESSICA / COREY: [id number] /
[2017-04-18] MEDS ORDERED: MORPHINE SULFATE ER 60 MG TABLET PO SCH (09:00)
[2017-04-18 09:19] LABS: Appearance,Urine Clear (Clear); Bilirubin,Urine Negative (Negative); Glucose,Urine (UA) 4+ (Negative); Ketones,Urine Trace (Negative); Leukocyte Esterase,Urine Negative (Negative); Mucus,Urine Rare /hpf; Nitrite,Urine Negative (Negative); Particle Count 2713; Protein,Urine Trace (Negative); RBC,Urine <1 /hpf (0-5); Specific Gravity,Urine 1.028 (1.001-1.035); Squamous Epithelial Cell,Urine 2 /hpf (0-4); UA Billing (MACRO vs. MICRO) MICRO; Urobilinogen,Urine <2.0 mg/dL (<2.0); WBC,Urine 3 /hpf (0-5)
--- NOTE | 2017-04-18 09:52 | MR ---
EXAMINATION TYPE: MR brain wo/w cspine wo DATE OF EXAM: 04/18/2017 COMPARISON: MRI brain March 18, 2017. MRI cervical spine October 28, 2013. HISTORY: Left sided weakness, MS TECHNIQUE: Multiplanar, multisequence images of the cervical spine, brain, and brainstem are all performed witho ut contrast and brain images are performed also with contrast, utilizing 10 mL intravenous Gadavist g adolinium contrast is administered intravenously. Demyelinating disease protocol with additional Sag ittal Flair sequence of the brain and brainstem is performed. FINDINGS: Exam for slightly suboptimal as are degraded by patient motion with as protocol and repeat sequences performed BRAIN: T2 Lesions Present : Yes Approximate Number of Lesions: Approximately 10-15 somewhat confluent lesions Locations Identified : Predominately periventricular Size of Reference Lesion(s): 1. 1.8 cm x 1.0 cm x 1.4 cm on axial image 20 and sagittal image 23 right parietal periventricular l esion stable 2 1.2 cm x 0.7 cm x 1.0 cm on axial image 19 and sagittal image 24 right frontal periventricular le alberto felt stable Enhancing Lesion(s) Present: No T1 Hypointense Lesion(s) Present: Yes Change from Prior: Stable Diffusion weighted images demonstrate no evidence of a recent infarct or other diffusion abnormality. There is no worrisome extra-axial fluid collection. The ventricular system and cisternal spaces ar e normal in size and appearance. The brain volume is age appropriate. Old area of encephalomalacia r ight medial occipital level remains present. Midline structures demonstrate normal morphology. The craniocervical junction appears within normal limits. Post contrast images demonstrate no abnormal enhancement. The dural venous sinuses appear pa tent. The visualized sinuses are clear and the globes are intact. IMPRESSION: Stable mild to moderate white matter changes likely on basis of patient's known multiple sclerosis. No new or enhancing lesions are clearly seen. Stable medial right occipital lobe encephalo malacia. C-SPINE: FINDINGS: Sagittal images of the cervical spine show the craniocervical junction to appear within nor mal limits. The cervical and upper thoracic spinal cord is normal in course, caliber, and signal. V ertebral alignment is anatomic. Mild disc space narrowing C5-C6 level with small posterior disc herni ation sagittal images is redemonstrated. The vertebral body and intravertebral disk heights otherwise are normal. The bone marrow signal intensity is within normal limits. No significant spurring is se en. Axial images show the C2-C3, C3-C4, C4-C5 levels all to appear within normal limits. Axial images at C5-C6 level redemonstrate broad-based right paracentral disc protrusion effacing ante rolateral thecal sac on axial image 22 slightly more prominent than prior study. Bilateral neural for edith remain patent. Axial images at C6-C7 and C7-T1 levels are felt within normal limits. IMPRESSION: No evidence of demyelinating disease involvement in the cervical spinal cord. Slightly mo re prominent disc herniation C5-C6 level is noted on current study.
[2017-04-18 10:53] LABS: CH 28.9; CHCM 31.7; HCT 37.6 % (34.0-46.0); HDW 2.56; HGB 12.1 gm/dL (11.4-16.0); Hypochromasia Slight; MCH 29.6 pg (25.0-35.0); MCHC 32.2 g/dL (31.0-37.0); MCV 91.8 fL (80.0-100.0); RDW 14.4 % (11.5-15.5); WBC (Perox) 32.18
[2017-04-18 10:58] LABS: WBC 31.4 k/uL (3.8-10.6)
[2017-04-18] MEDS: MULTIVITAMINS, THERA 1 EACH TAB PO SCH (10:59)
[2017-04-18 11:04] LABS: Anion Gap 14 mmol/L; Blood Urea Nitrogen 13 mg/dL (7-17); Calcium 9.9 mg/dL (8.4-10.2); Carbon Dioxide 21 mmol/L (22-30); Chloride 109 mmol/L (98-107); Glucose 128 mg/dL (74-99); Non-African American GFR(MDRD) >60 (>60 ml/min/1.73 sqM); Potassium 4.6 mmol/L (3.5-5.1); Sodium 144 mmol/L (137-145)
[2017-04-18 11:39] LABS: Glucose,Whole Blood 235 mg/dL (75-99)
[2017-04-18 11:49] LABS: Add Differential Manual Differential
[2017-04-18 11:51] LABS: Manual Review Performed; Nucleated Red Blood Cells 0 /100 WBC (0-0); Total Cells Counted 100
[2017-04-18] MEDS: MORPHINE SULFATE ER 30 MG TABLET PO SCH (15:06)
--- NOTE | 2017-04-18 15:11 | FL ---
Modified barium swallow. HISTORY: Dysphagia. Modified barium swallow was performed with the department of speech pathology. The patient was prese nted with various consistencies of barium. There is no evidence for aspiration or penetration. Full report is to follow from the department of speech pathology. Impression: Normal study.
[2017-04-18 15:23] VITALS: BP 109/60; PULSE 79; RESP 16; TEMP 97.9
--- NOTE | 2017-04-18 20:03 | P.DS ---
Providers Date of admission: 04/16/17 15:35 Attending physician: Rodolfo Soto Consults: 04/16/17 15:36 Consult Physician Routine Consulting Provider: Sneha Monsalve Consult Reason/Comments: MS exacerbation Do you want consulting provider notified?: Yes Primary care physician: Neno [facility] Course: This 37-year-old woman with a past medical history multiple medical problems including multiple sclerosis was admitted with weakness of the left upper and lower lip service to multiple sclerosis acute exacerbation. Patient was seen by neurology. Dr. Lu saw the patient. Patient was treated with high- dose IV steroids. Patient improved significantly. Patient also had multiple other medical issues including chronic pain issues also. Patient had some difficulty in swallowing. Speech pathology swallow evaluation was normal. Patient improved since significantly. Patient be discharged in a stable condition with guarded prognosis. On exam vitals stable. Cardio S1 and S2 normal. Respiratory system clear to auscultation. Abdomen soft nontender. No system is improved. Final diagnosis 1. Weakness of the left side of the body possibly multiple slows acute exacerbation. 2. Acute daily disease possibly antibiotic induced C. difficile negative. 3. History of multiple sclerosis. 4. UTI ruled out. 5. GERD 6. Fibromyalgia 7. History of asthma. 8. History of chronic pain syndrome. 9. History of seizure disorder. 10. History of DJD. 11. History of interstitial cystitis. 4. Bilateral optic neuritis history. 13. History of C. difficile colitis. 14. History of anxiety depression. Patient Condition at Discharge: Stable Plan - Discharge Summary New Discharge Prescriptions: New metroNIDAZOLE [Flagyl] 500 mg PO TID #15 tab Multivitamins, Thera [Multivitamin (formulary)] 1 each PO DAILY@1200 #30 tab Continue Montelukast [Singulair] 10 mg PO DAILY Famotidine [Pepcid] 20 mg PO BID Ipratropium/Albuterol Sulfate [Combivent Respimat Inhaler] 1 puff INHALATION RT-QID PRN PRN Reason: Shortness Of Breath Albuterol Inhaler [Ventolin Hfa Inhaler] 2 puff INHALATION RT-QID PRN PRN Reason: Shortness Of Breath Dimethyl Fumarate [Tecfidera] 240 mg PO BID Ondansetron Odt [Zofran ODT] 4 mg PO Q8HR PRN PRN Reason: Nausea Meclizine [Antivert] 25 mg PO BID PRN PRN Reason: Vertigo Ergocalciferol [Vitamin D2 (DRISDOL)] 50,000 unit PO MO Sertraline [Zoloft] 100 mg PO BID Oxybutynin Chloride [Ditropan] 5 mg PO TID #45 tab Lisinopril [Prinivil] 10 mg PO DAILY SUMAtriptan SUCCINATE [Imitrex] 100 mg PO BID PRN PRN Reason: Migraine Headache Pentosan Polysulfate Sodium [Elmiron] 100 mg PO TID Dicyclomine [Bentyl] 20 mg PO QID PRN PRN Reason: Abdominal Cramps oxyCODONE-APAP 10-325MG [Percocet 10-325 mg] 1 tab PO Q4H PRN PRN Reason: Breakthrough Pain tiZANidine [Zanaflex] 8 mg PO QID Atorvastatin [Lipitor] 10 mg PO DAILY #30 tab Clopidogrel [Plavix] 75 mg PO DAILY #30 tab Levothyroxine Sodium [Synthroid] 50 mcg PO DAILY@0630 #30 tab amLODIPine [Norvasc] 10 mg PO DAILY #30 tab Norgestrel-Ethinyl Estradiol [[id number] Tablet] 1 tab PO DAILY Lacosamide [Vimpat] 100 mg PO DAILY Topiramate [Topamax] 200 mg PO BID Morphine Sulfate ER [Ms Contin] 30 mg PO BID PRN PRN Reason: Pain Dextroamphetamine/Amphetamine [Adderall] 30 mg PO DAILY Discharge Medication List Albuterol Inhaler [Ventolin Hfa Inhaler] 2 puff INHALATION RT-QID PRN 12/09/13 [ History] Famotidine [Pepcid] 20 mg PO BID 12/09/13 [History] Ipratropium/Albuterol Sulfate [Combivent Respimat Inhaler] 1 puff INHALATION RT- QID PRN 12/09/13 [History] Montelukast [Singulair] 10 mg PO DAILY 12/09/13 [History] Dimethyl Fumarate [Tecfidera] 240 mg PO BID 07/15/14 [History] Ondansetron Odt [Zofran ODT] 4 mg PO Q8HR PRN 04/13/15 [History] Ergocalciferol [Vitamin D2 (DRISDOL)] 50,000 unit PO MO 12/24/15 [History] Meclizine [Antivert] 25 mg PO BID PRN 12/24/15 [History] Oxybutynin Chloride [Ditropan] 5 mg PO TID #45 tab 12/24/15 [Rx] Sertraline [Zoloft] 100 mg PO BID 12/24/15 [History] Lisinopril [Prinivil] 10 mg PO DAILY 01/01/16 [History] SUMAtriptan SUCCINATE [Imitrex] 100 mg PO BID PRN 01/01/16 [History] Pentosan Polysulfate Sodium [Elmiron] 100 mg PO TID 02/07/16 [History] Dicyclomine [Bentyl] 20 mg PO QID PRN 08/09/16 [History] oxyCODONE-APAP 10-325MG [Percocet 10-325 mg] 1 tab PO Q4H PRN 08/09/16 [History] tiZANidine [Zanaflex] 8 mg PO QID 08/09/16 [History] Atorvastatin [Lipitor] 10 mg PO DAILY #30 tab 08/14/16 [Rx] Clopidogrel [Plavix] 75 mg PO DAILY #30 tab 08/14/16 [Rx] Levothyroxine Sodium [Synthroid] 50 mcg PO DAILY@0630 #30 tab 08/14/16 [Rx] amLODIPine [Norvasc] 10 mg PO DAILY #30 tab 08/14/16 [Rx] Dextroamphetamine/Amphetamine [Adderall] 30 mg PO DAILY 03/17/17 [History] Lacosamide [Vimpat] 100 mg PO DAILY 03/17/17 [History] Morphine Sulfate ER [Ms Contin] 30 mg PO BID PRN 03/17/17 [History] Norgestrel-Ethinyl Estradiol [[id number] Tablet] 1 tab PO DAILY 03/17/17 [ History] Topiramate [Topamax] 200 mg PO BID 03/17/17 [History] Multivitamins, Thera [Multivitamin (formulary)] 1 each PO DAILY@1200 #30 tab 03/27 [Rx] metroNIDAZOLE [Flagyl] 500 mg PO TID #15 tab 04/18/17 [Rx] Follow up Appointment(s)/Referral(s): [facility], [NON-STAFF] - Sneha Monsalve MD [STAFF PHYSICIAN] - 1 Week Neno Quinones MD [Primary Care Provider] - 3 Days Patient Instructions/Handouts: Fall Prevention (DC) Activity/Diet/Wound Care/Special Instructions: MS information given Activity as tolerated, fall precautions. Regular diet. Discharge Disposition: HOME WITH HOME HEALTH SERVICES
--- NOTE | 2017-04-19 10:27 | PN ---
PROGRESS NOTE CHIEF COMPLAINT: MS exacerbation. HISTORY OF PRESENT ILLNESS: This is a 37-year-old female, continued to be evaluated by the neurology service for left-sided weakness. She has been having weakness involving the left side for a couple days. She reports this is what happens during a multiple sclerosis exacerbation. She is on Tecfidera twice a day for her MS. She was complaining of some also left sided vision problems. She has been started on IV Solu-Medrol and says her symptoms may be getting a little better. At the time of my exam, she is resting comfortably in bed. She does say that she cannot move her left leg and arm. However, there is movement seen when she is distracted. Nurses also report that she has been up and transferring into her wheelchair and observed using her left arm. Physical therapy has worked with her and at the time of my examination discharge papers have been presented to her. She reports no new neurological symptoms since exam yesterday. MEDICATIONS: Home medications are reviewed in the chart. REVIEW OF SYSTEMS: Are unchanged. PHYSICAL EXAM: Vital signs: Temperature 97, pulse 82, respirations 18, blood pressure 112/57. GENERAL APPEARANCE: She is a mildly obese female in no acute distress. HEENT: Normocephalic, atraumatic. No facial asymmetry. NECK: Supple without masses. EXTREMITIES: No edema, clubbing, or cyanosis. Neurological exam she is alert, awake, oriented x3. Speech, language normal. As stated above she is getting minimal effort on the left side, although it is reported that she has been using her left side and there is some movement when she is distracted. Strength is 5/5 on the right side. Sensory exam is diminished to light touch on the left side. IMPRESSION: 1. Acute multiple sclerosis exacerbation. 2. Left hemiparesis. 3. Left-sided sensory deficit. 4. Chronic pain syndrome. RECOMMENDATIONS: Continue her last dose of IV Solu-Medrol. She is being discharged at the time of my exam. Continue to work with physical and occupational therapy. Possibly in an outpatient setting. I did review with her MRI of the cervical spine, which shows no demyelinating lesions of the central nervous system. Her MRI of the brain did show white matter changes consistent with demyelination, but these are unchanged from her previous study. We may follow her up in the outpatient setting for her chronic pain issues and to talk about possible different options for her multiple sclerosis. I performed a History & Physical Examination of the patient and discussed their management with nurse practitioner. I reviewed the nurse practitioner's note and agree with the documented findings and plan of care. JESSICA / COREY: [id number] /
[2017-04-21] MEDS ORDERED: ERGOCALCIFEROL 50,000 UNIT CAP PO SCH (12:00)
--- NOTE | 2017-04-21 20:44 | EEG ---
ELECTROENCEPHALOGRAM REPORT DATE OF SERVICE: 04/18/2017. REASON FOR TESTING: Seizures. CURRENT ANTIEPILEPTIC MEDICATIONS: Vimpat. PROCEDURE: This EEG was performed using a 21 channel digital electroencephalograph, following international 10-20 system. DESCRIPTION OF THE RECORDING: From the beginning of the tracing, and with patient's eyes closed, the background rhythm was mostly consisting of 8 Hz alpha frequency in the posterior occipital leads. No obvious asymmetry is seen. Photic stimulation was performed with a good driving response seen. No pathological waves were elicited. Hyperventilation was not performed. Occasional movement and muscle artifacts are seen. Later in the tracing, the patient does reach stage II of sleep, and occasional K complexes are seen. No epileptiform discharges were seen. Her EKG lead showed a regular rate and rhythm. INTERPRETATION: This asleep and awake EEG can be considered within normal limits. There was no asymmetry seen. No epileptiform discharges were noticed. The absence of epileptiform discharges does not rule out the diagnosis of epilepsy, therefore clinical correlation is recommended. MMHAKAN / CEEN: [id number] /
== END 2017-04-18 16:38 | disposition home health service (06) ==
LOC: EC 11:37 → 4MS4W 15:35
PROVIDERS: ADMIT Hospitalist; ATTEND Hospitalist
DX: G35 Multiple sclerosis (principal); R11.2 Nausea with vomiting, unspecified; G40.909 Epilepsy, unspecified, not intractable, without status epilepticus; R19.7 Diarrhea, unspecified; G89.4 Chronic pain syndrome; J45.909 Unspecified asthma, uncomplicated; M79.7 Fibromyalgia; K21.9 Gastro-esophageal reflux disease without esophagitis; R13.10 Dysphagia, unspecified; R10.84 Generalized abdominal pain; I10 Essential (primary) hypertension; G43.909 Migraine, unspecified, not intractable, without status migrainosus; F32.9 Major depressive disorder, single episode, unspecified; F41.9 Anxiety disorder, unspecified; N30.10 Interstitial cystitis (chronic) without hematuria; E55.9 Vitamin D deficiency, unspecified; E28.2 Polycystic ovarian syndrome; M19.90 Unspecified osteoarthritis, unspecified site; E03.9 Hypothyroidism, unspecified; H53.8 Other visual disturbances; R73.9 Hyperglycemia, unspecified; G81.94 Hemiplegia, unspecified affecting left nondominant side; Z86.19 Personal history of other infectious and parasitic diseases; Z79.899 Other long term (current) drug therapy; Z87.440 Personal history of urinary (tract) infections; Z79.891 Long term (current) use of opiate analgesic; Z79.02 Long term (current) use of antithrombotics/antiplatelets; Z88.6 Allergy status to analgesic agent; Z88.1 Allergy status to other antibiotic agents; Z88.5 Allergy status to narcotic agent; Z88.0 Allergy status to penicillin; Z88.2 Allergy status to sulfonamides; Z88.8 Allergy status to other drugs, medicaments and biological substances; Z87.891 Personal history of nicotine dependence; Z90.49 Acquired absence of other specified parts of digestive tract; Z91.040 Latex allergy status
CPT/HCPCS: 96376 ×4; 96365; 96366 ×2; 96372 ×3; 96375 ×2; 96361; 99285; 36415; 94640 ×2; 95819; 97161; 92610; 92611; 80053 ×2; 80048; 83036; 83690; 83735; 85025 ×3; 81001 ×2; 81025; 87324; 80306; 87086 ×2; 74230; 74176; 70553; 72141; G0378 ×3; J2270; J1644 ×3; J2930 ×3; J3360; J2405 ×3; J1170 ×3

== ENCOUNTER 2018-01-26 15:06 | Observation (INO) | payer MEDICARE, OTHER ==
[2018-01-26] MEDS ORDERED: ONDANSETRON 4 MG/2 ML VIAL IVP STA (15:27)
--- NOTE | 2018-01-26 15:47 | ED ---
General Adult HPI - General Chief complaint: Recheck/Abnormal Lab/Rx Stated complaint: Foot Pain/MS Pain Time Seen by Provider: 01/26/18 15:18 Source: patient Mode of arrival: wheelchair Limitations: no limitations - History of Present Illness Initial comments: This is a 38-year-old female with a history of multiple sclerosis who follows with a Dr. Armin Cobb out of [facility] who presents emergency department for right lower extremity weakness and right eye blurriness and pain. She states that the symptoms are pretty consistent when she has a MS flare. She states that she also has generalized body aches which is also consistent with an MS flare. She was recently diagnosed with bronchitis and went through a course of steroids and antibiotics however states that she developed symptoms shortly after. She denies any difficulty with weakness in her left lower [place] or her upper extremities. Denies any diarrhea however does admit to some nausea and little bit of vomiting. She states that the last time she was admitted for her MS was approximately one year ago. She has a history of relapsing and remitting and is not currently taking any medications for this. She states that she is prescribed something however stopped taking it about one year ago because she felt it was making her worse. - Related Data Home Medications Medication Instructions Recorded Confirmed Albuterol Inhaler [Ventolin Hfa 2 puff INHALATION RT-QID PRN 12/09/13 01/26/18 Inhaler] Ipratropium/Albuterol Sulfate 1 puff INHALATION RT-QID PRN 12/09/13 01/26/18 [Combivent Respimat Inhaler] Albuterol Nebulized [Ventolin 2.5 mg INHALATION RT-QID PRN 01/26/18 01/26/18 Nebulized] Ipratropium Nebulized [Atrovent 0.5 mg INHALATION RT-QID PRN 01/26/18 01/26/18 Nebulized] Allergies Allergy/AdvReac Type Severity Reaction Status Date / Time amoxicillin [Amoxicillin] Allergy Severe Anaphylaxis, Verified 01/26/18 15:24 seizures ciprofloxacin [From Cipro] Allergy Severe Rash/Hives, Verified 01/26/18 15:24 seizures codeine phosphate Allergy Unknown Rash/Hives Verified 01/26/18 15:24 [From Tylenol-Codeine #3] cefuroxime axetil Allergy Rash/Hives Verified 01/26/18 15:24 [From Ceftin] latex Allergy Rash/Hives Verified 01/26/18 15:24 NSAIDS (Non-Steroidal Allergy Rash/Hives/Lip Verified 01/26/18 15:24 Anti-Inflamma Swelling Review of Systems ROS Statement: Those systems with pertinent positive or pertinent negative responses have been documented in the HPI. ROS Other: All systems not noted in ROS Statement are negative. Past Medical History Past Medical History: Asthma, Fibromyalgia, GERD/Reflux, Hypertension, Musculoskeletal Disorder, Neurologic Disorder, Renal Disease, Seizure Disorder Additional Past Medical History / Comment(s): Multiple Sclerosis, migraines, DJD , interstitial cystitis, UTI, PCOS, vit D deficiency, bilateral optic neuritis with visual problems, chronic pain, numbness/tingling R side of body.tachycardia , c-diff 5-9-15, History of Any Multi-Drug Resistant Organisms: None Reported Date of last positivie culture/infection: None MDRO Source:: None Past Surgical History: Cholecystectomy, Orthopedic Surgery Additional Past Surgical History / Comment(s): Lt shoulder rotator cuff repair 06/06/14 @ [facility] pt has since re-torn, Arthroscopic left knee 2000 & 2002. ARTHROSCOPY LT SHOULDER. Past Anesthesia/Blood Transfusion Reactions: No Reported Reaction Additional Past Anesthesia/Blood Transfusion Reaction / Comment(s): Pt has never recieved blood. Past Psychological History: Anxiety, Depression Smoking Status: Former smoker Past Alcohol Use History: None Reported Past Drug Use History: None Reported - Past Family History Mother Family Medical History: No Reported History Additional Family Medical History / Comment(s): mother is healthy Father Family Medical History: Hypertension General Exam - General Exam Comments Initial Comments: Constitutional: Awake alert Appears comfortable Head: Normocephalic atraumatic Eyes: no conjunctival injection No scleral icterus EOMI, pupils are 4 mm reactive bilaterally Neck: No JVD Supple Heart: Regular rate rhythm normal S1-S2 no murmurs Lungs: Clear to auscultation bilaterally No wheezing No rales Abdomen: Soft nondistended nontender Extremities: Non edematous DP pulses intact Radial pulses intact Neuro: A&Ox3, crowner 2 through 12 are grossly intact, there is 5 out of 5 strength in upper extremities bilaterally, right lower extremity the patient is able to extend at the knee and hold her heel off of the gurney for approximate 5 seconds however cannot hold the entire leg off the gurney. She'll hold it for approximately one second and will fall. She has 4-5 strength with plantar flexion of her right lower extremity. 5 out of 5 strength in the left lower extremity. The patient also reports decreased sensation to the right lower extremity when compared to the left No focal neurologic deficits Psych: Appropriate mood and affect Limitations: no limitations Course Vital Signs 01/26/18 15:10 Temperature 98.3 F Pulse Rate 107 H Respiratory 20 Rate Blood Pressure 143/81 O2 Sat by Pulse 96 Oximetry Medical Decision Making - Medical Decision Making Is a 38-year-old female came in for right lower chrie weakness and eye discomfort. Patient did have some significant weakness in the right lower extremity. She stated that it was consistent with her MS exacerbation. Blood work was performed and showed a leukocytosis however could be reactive from recent steroid use. The rest her labwork was reviewed and unremarkable. CT the head was negative. Chest x-ray negative. At this time going to admit the patient for MS exacerbation. Dr. Davis will be consulted for neurology. Awaiting a callback at this time for recommendations from Dr. Davis. [facility] accepts the admission and a half of Dr. Soto. - Lab Data Result diagrams: 01/26/18 15:55 01/26/18 15:55 Lab Results 01/26/18 01/26/18 01/26/18 Range/Units 15:55 15:55 16:23 WBC 19.4 H (3.8-10.6) k/uL RBC 4.58 (3.80-5.40) m/uL Hgb 13.3 (11.4-16.0) gm/dL Hct 39.9 (34.0-46.0) % MCV 87.1 (80.0-100.0) fL MCH 29.2 (25.0-35.0) pg MCHC 33.5 (31.0-37.0) g/dL RDW 14.3 (11.5-15.5) % Plt Count 327 (150-450) k/uL Neutrophils % 78 % Lymphocytes % 16 % Monocytes % 3 % Eosinophils % 2 % Basophils % 0 % Neutrophils # 15.0 H (1.3-7.7) k/uL Lymphocytes # 3.2 (1.0-4.8) k/uL Monocytes # 0.6 (0-1.0) k/uL Eosinophils # 0.3 (0-0.7) k/uL Basophils # 0.1 (0-0.2) k/uL Sodium 140 (137-145) mmol/L Potassium 3.8 (3.5-5.1) mmol/L Chloride 105 (98-107) mmol/L Carbon Dioxide 22 (22-30) mmol/L Anion Gap 13 mmol/L BUN 9 (7-17) mg/dL Creatinine 0.64 (0.52-1.04) mg/dL Est GFR (CKD-EPI)AfAm >90 (>60 ml/min/1.73 sqM) Est GFR (CKD-EPI)NonAf >90 (>60 ml/min/1.73 sqM) Glucose 116 H (74-99) mg/dL Calcium 9.5 (8.4-10.2) mg/dL Magnesium 1.8 (1.6-2.3) mg/dL Total Bilirubin 0.1 L (0.2-1.3) mg/dL AST 30 (14-36) U/L ALT 36 (9-52) U/L Alkaline Phosphatase 44 (38-126) U/L Total Protein 6.1 L (6.3-8.2) g/dL Albumin 3.9 (3.5-5.0) g/dL Urine Color Yellow Urine Appearance Clear (Clear) Urine pH 5.5 (5.0-8.0) Ur Specific [place] 1.014 (1.001-1.035) Urine Protein Negative (Negative) Urine Glucose (UA) Negative (Negative) Urine Ketones Negative (Negative) Urine Blood Moderate H (Negative) Urine Nitrite Negative (Negative) Urine Bilirubin Negative (Negative) Urine Urobilinogen <2.0 (<2.0) mg/dL Ur Leukocyte Esterase Trace H (Negative) Urine RBC 1 (0-5) /hpf Urine WBC 1 (0-5) /hpf Ur Squamous Epith Cells 2 (0-4) /hpf Urine Bacteria Rare H (None) /hpf Urine Mucus Rare H (None) /hpf Urine HCG, Qual (Not Detectd) Urine Opiates Screen Not Detected (NotDetected) Ur Oxycodone Screen Not Detected (NotDetected) Urine Methadone Screen Not Detected (NotDetected) Ur Propoxyphene Screen Not Detected (NotDetected) Ur Barbiturates Screen Not Detected (NotDetected) U Tricyclic Antidepress Not Detected (NotDetected) Ur Phencyclidine Scrn Not Detected (NotDetected) Ur Amphetamines Screen Not Detected (NotDetected) U Methamphetamines Scrn Not Detected (NotDetected) U Benzodiazepines Scrn Not Detected (NotDetected) Urine Cocaine Screen Not Detected (NotDetected) U Marijuana (THC) Screen Detected H (NotDetected) 01/26/18 Range/Units 16:23 WBC (3.8-10.6) k/uL RBC (3.80-5.40) m/uL Hgb (11.4-16.0) gm/dL Hct (34.0-46.0) % MCV (80.0-100.0) fL MCH (25.0-35.0) pg MCHC (31.0-37.0) g/dL RDW (11.5-15.5) % Plt Count (150-450) k/uL Neutrophils % % Lymphocytes % % Monocytes % % Eosinophils % % Basophils % % Neutrophils # (1.3-7.7) k/uL Lymphocytes # (1.0-4.8) k/uL Monocytes # (0-1.0) k/uL Eosinophils # (0-0.7) k/uL Basophils # (0-0.2) k/uL Sodium (137-145) mmol/L Potassium (3.5-5.1) mmol/L Chloride (98-107) mmol/L Carbon Dioxide (22-30) mmol/L Anion Gap mmol/L BUN (7-17) mg/dL Creatinine (0.52-1.04) mg/dL Est GFR (CKD-EPI)AfAm (>60 ml/min/1.73 sqM) Est GFR (CKD-EPI)NonAf (>60 ml/min/1.73 sqM) Glucose (74-99) mg/dL Calcium (8.4-10.2) mg/dL Magnesium (1.6-2.3) mg/dL Total Bilirubin (0.2-1.3) mg/dL AST (14-36) U/L ALT (9-52) U/L Alkaline Phosphatase (38-126) U/L Total Protein (6.3-8.2) g/dL Albumin (3.5-5.0) g/dL Urine Color Urine Appearance (Clear) Urine pH (5.0-8.0) Ur Specific [place] (1.001-1.035) Urine Protein (Negative) Urine Glucose (UA) (Negative) Urine Ketones (Negative) Urine Blood (Negative) Urine Nitrite (Negative) Urine Bilirubin (Negative) Urine Urobilinogen (<2.0) mg/dL Ur Leukocyte Esterase (Negative) Urine RBC (0-5) /hpf Urine WBC (0-5) /hpf Ur Squamous Epith Cells (0-4) /hpf Urine Bacteria (None) /hpf Urine Mucus (None) /hpf Urine HCG, Qual Not Detected (Not Detectd) Urine Opiates Screen (NotDetected) Ur Oxycodone Screen (NotDetected) Urine Methadone Screen (NotDetected) Ur Propoxyphene Screen (NotDetected) Ur Barbiturates Screen (NotDetected) U Tricyclic Antidepress (NotDetected) Ur Phencyclidine Scrn (NotDetected) Ur Amphetamines Screen (NotDetected) U Methamphetamines Scrn (NotDetected) U Benzodiazepines Scrn (NotDetected) Urine Cocaine Screen (NotDetected) U Marijuana (THC) Screen (NotDetected) Disposition Clinical Impression: Exacerbation of multiple sclerosis Disposition: ADMITTED IP TO THIS HOSP
[2018-01-26 16:23] LABS: Basophils # (A) 0.1 k/uL (0-0.2); Basophils % (A) 0 %; Eosinophils # (A) 0.3 k/uL (0-0.7); Eosinophils % (A) 2 %; HCT 39.9 % (34.0-46.0); HGB 13.3 gm/dL (11.4-16.0); Lymphocytes # (A) 3.2 k/uL (1.0-4.8); Lymphocytes % (A) 16 %; MCH 29.2 pg (25.0-35.0); MCHC 33.5 g/dL (31.0-37.0); MCV 87.1 fL (80.0-100.0); Mean Platelet Volume 6.8; Monocytes # (A) 0.6 k/uL (0-1.0); Monocytes % (A) 3 %; Neutrophils % (A) 78 %; Platelet Count 327 k/uL (150-450); RBC 4.58 m/uL (3.80-5.40); RDW 14.3 % (11.5-15.5); WBC 19.4 k/uL (3.8-10.6)
[2018-01-26 16:34] LABS: Appearance,Urine Clear (Clear); Bacteria,Urine Rare /hpf; Bilirubin,Urine Negative (Negative); Blood,Urine Moderate (Negative); Color,Urine Yellow; Glucose,Urine (UA) Negative (Negative); Ketones,Urine Negative (Negative); Leukocyte Esterase,Urine Trace (Negative); Mucus,Urine Rare /hpf; Nitrite,Urine Negative (Negative); PH, Urine 5.5 (5.0-8.0); Protein,Urine Negative (Negative); RBC,Urine 1 /hpf (0-5); Specific Gravity,Urine 1.014 (1.001-1.035); Squamous Epithelial Cell,Urine 2 /hpf (0-4); Urobilinogen,Urine <2.0 mg/dL (<2.0); WBC,Urine 1 /hpf (0-5)
[2018-01-26 16:41] LABS: Amphetamine Screen,Urine Not Detected (NotDetected); Barbiturate Screen,Urine Not Detected (NotDetected); Benzodiazepines Screen,Urine Not Detected (NotDetected); Cocaine Screen,Urine Not Detected (NotDetected); Methadone Screen, Urine Not Detected (NotDetected); Opiate Screen,Urine Not Detected (NotDetected); Oxycodone Screen, Urine Not Detected (NotDetected); Phencyclidine Screen,Urine Not Detected (NotDetected); Tricyclic Antidepressant,Urine Not Detected (NotDetected); Urn Cannabinoid Scrn Detected (NotDetected)
[2018-01-26 16:47] LABS: ALT 36 U/L (9-52); AST 30 U/L (14-36); Albumin 3.9 g/dL (3.5-5.0); Alkaline Phosphatase 44 U/L (38-126); Anion Gap 13 mmol/L; Blood Urea Nitrogen 9 mg/dL (7-17); Calcium 9.5 mg/dL (8.4-10.2); Carbon Dioxide 22 mmol/L (22-30); Chloride 105 mmol/L (98-107); Glucose 116 mg/dL (74-99); Magnesium 1.8 mg/dL (1.6-2.3); Potassium 3.8 mmol/L (3.5-5.1); Sodium 140 mmol/L (137-145); Total Bilirubin 0.1 mg/dL (0.2-1.3); Total Protein 6.1 g/dL (6.3-8.2)
[2018-01-26] MEDS ORDERED: diphenhydrAMINE 50 MG/ML 1 ML VIAL IVP STA (17:17)
[2018-01-26] MEDS ORDERED: METOCLOPRAMIDE 5 MG/ML 2 ML VIAL IVP STA (17:17)
--- NOTE | 2018-01-26 17:21 | CT ---
EXAMINATION TYPE: CT brain wo con DATE OF EXAM: 01/26/2018 COMPARISON: 03/17/2017 HISTORY: Patient complains of headache and nausea. CT DLP: 1043 mGycm. Automated Exposure Control for Dose Reduction was Utilized. TECHNIQUE: CT scan of the head is performed without contrast. FINDINGS: There is symmetric mild frontal lobe atrophy. There is no mass effect nor midline shift. There is no sign of intracranial hemorrhage. The calvarium is intact. IMPRESSION: No acute intracranial abnormality. No change compared to old exam.
--- NOTE | 2018-01-26 17:22 | XR ---
EXAMINATION TYPE: XR chest 2V DATE OF EXAM: 01/26/2018 COMPARISON: 05/10/2017 HISTORY: Asthma. Foot numbness. Cough. TECHNIQUE: Frontal and lateral views of the chest are obtained. FINDINGS: There is no heart failure nor confluent pneumonic infiltrate. Costophrenic angles are danny r. Heart and mediastinum are normal. Bony thorax appears intact. IMPRESSION: No cardiopulmonary disease. Inspiration is less than old exam.
[2018-01-26] MEDS ORDERED: NALOXONE 0.4 MG/ML 1 ML VIAL IV PRN (17:39)
[2018-01-26] MEDS ORDERED: NON-FORMULARY DRUG (Ipratropium/Albuterol Sulfate [Combivent Respimat Inhaler] 1 PUFF) INHALATION PRN (18:16)
[2018-01-26] MEDS ORDERED: ALBUTEROL INHALER 60 PUFF/8 GM INHALER INHALATION PRN (18:16)
[2018-01-26] MEDS ORDERED: IPRATROPIUM 0.5 MG/2.5 ML NEBU INHALATION PRN (18:16)
[2018-01-26] MEDS ORDERED: MELATONIN 3 MG TABLET PO PRN (18:18)
[2018-01-26] MEDS: PANTOPRAZOLE 40 MG/10 ML VIAL IVP SCH (19:11)
[2018-01-26 20:33] LABS: Glucose,Whole Blood 105 mg/dL (75-99)
[2018-01-26] MEDS: INSULIN ASPART 100 UNIT/ML 1 ML 10 ML VIAL SQ SCH (20:57)
[2018-01-26] MEDS: oxyCODONE-APAP 5-325MG 1 EACH TAB PO PRN (21:06)
--- NOTE | 2018-01-26 21:29 | P.CNNES ---
History of Present Illness Consult date: 01/26/18 Reason for Consult: Patient admitted with MS exacerbation. History of Present Illness: This patient is a 38-year-old right-handed white female who was admitted through the emergency room today for evaluation of acute MS exacerbation. Patient states that she has a history of multiple sclerosis which was diagnosed in 2008. She has been treated for her MS by a neurologist in [place]. Apparently she was seeing him on a fairly regular basis until last year. She had an acute MS exacerbation in May of last year and was admitted to [facility]. She underwent treatment with IV steroid therapy and did fairly well. Following this admission however she stopped taking her oral medication for treatment of her MS. She was using Tecfidera as her primary medication. She was very displeased with this medicine stating it was not helping her MS. She decided to come off of all treatment since last year and has not had any further follow-up with the neurologist. Patient was brought into the emergency room today and was seen in the ER by Dr. Veloz. She was sent for a computed tomography scan of the brain which revealed no acute intracranial abnormality. She did complain of weakness in her right lower extremity as well as some blurred vision in her right eye. She states this is her typical presentation for acute MS exacerbation. She was recommended admission to the hospital for treatment of acute MS exacerbation with IV Solu- Medrol. Patient states that she also suffers from chronic pain. She was using various pain medications last year but has not had any follow-up with a pain specialist. She was using Percocet and MS Contin for treatment in the past. It is unclear if she had regular follow-up with the pain specialist for further management. She would like to see a pain specialist during this admission for further E reevaluation of her pain history. Patient states that this is the most recent MS exacerbation since May of last year. She states that for the last 3-4 days the right leg has been weak and she has noticed blurring of her vision in the right eye. For these reasons she was seen in the emergency room and subsequently admitted to the hospital for further evaluation. Neurology is now been consulted for further evaluation and recommendations. Review of Systems Constitutional: Denies chills, Denies fever Eyes: right blurred vision, denies pain Ears, nose, mouth and throat: Denies headache, Denies sore throat Cardiovascular: Denies chest pain, Denies shortness of breath Respiratory: Denies cough Gastrointestinal: Denies abdominal pain, Denies diarrhea, Denies nausea, Denies vomiting Genitourinary: Denies dysuria, Denies hematuria Musculoskeletal: Denies myalgias Integumentary: Denies pruritus, Denies rash Neurological: Reports paresthesias, Denies numbness, Denies weakness Psychiatric: Denies anxiety, Denies depression Endocrine: Denies fatigue, Denies weight change Past Medical History Past Medical History: Asthma, Fibromyalgia, GERD/Reflux, Hypertension, Musculoskeletal Disorder, Neurologic Disorder, Renal Disease, Seizure Disorder Additional Past Medical History / Comment(s): Multiple Sclerosis, migraines, DJD , interstitial cystitis, UTI, PCOS, vit D deficiency, bilateral optic neuritis with visual problems, chronic pain, numbness/tingling R side of body.tachycardia , c-diff 5-9-15, History of Any Multi-Drug Resistant Organisms: None Reported Date of last positivie culture/infection: None MDRO Source:: None Past Surgical History: Cholecystectomy, Orthopedic Surgery Additional Past Surgical History / Comment(s): Lt shoulder rotator cuff repair 06/06/14 @ [facility] pt has since re-torn, Arthroscopic left knee 2000 & 2002. ARTHROSCOPY LT SHOULDER. Past Anesthesia/Blood Transfusion Reactions: No Reported Reaction Additional Past Anesthesia/Blood Transfusion Reaction / Comment(s): Pt has never recieved blood. Past Psychological History: Anxiety, Depression Smoking Status: Former smoker Past Alcohol Use History: None Reported Past Drug Use History: None Reported - Past Family History Mother Family Medical History: No Reported History Additional Family Medical History / Comment(s): mother is healthy Father Family Medical History: Hypertension Medications and Allergies Home Medications Medication Instructions Recorded Confirmed Type Albuterol Inhaler [Ventolin Hfa 2 puff INHALATION RT-QID PRN 12/09/13 01/26/18 History Inhaler] Ipratropium/Albuterol Sulfate 1 puff INHALATION RT-QID PRN 12/09/13 01/26/18 History [Combivent Respimat Inhaler] Albuterol Nebulized [Ventolin 2.5 mg INHALATION RT-QID PRN 01/26/18 01/26/18 History Nebulized] Ipratropium Nebulized [Atrovent 0.5 mg INHALATION RT-QID PRN 01/26/18 01/26/18 History Nebulized] Allergies Allergy/AdvReac Type Severity Reaction Status Date / Time amoxicillin [Amoxicillin] Allergy Severe Anaphylaxis, Verified 01/26/18 15:24 seizures ciprofloxacin [From Cipro] Allergy Severe Rash/Hives, Verified 01/26/18 15:24 seizures codeine phosphate Allergy Unknown Rash/Hives Verified 01/26/18 15:24 [From Tylenol-Codeine #3] cefuroxime axetil Allergy Rash/Hives Verified 01/26/18 15:24 [From Ceftin] latex Allergy Rash/Hives Verified 01/26/18 15:24 NSAIDS (Non-Steroidal Allergy Rash/Hives/Lip Verified 01/26/18 15:24 Anti-Inflamma Swelling Physical Examination - Vital Signs Vital Signs: Vital Signs Temp Pulse Resp BP Pulse Ox 01/26/18 18:47 98.1 F 86 18 131/78 99 01/26/18 15:10 98.3 F 107 H 20 143/81 96 Intake and Output 01/26/18 01/26/18 01/26/18 06:59 14:59 22:59 Other: Weight 99.79 kg - Constitutional General appearance: average body habitus, cooperative - EENT EENT: PERRL, mucous membranes moist - Respiratory Respiratory: lungs clear, normal breath sounds - Cardiovascular Cardiovascular: regular rate, normal S1, normal S2 Extremities: no peripheral edema bilaterally - Gastrointestinal Gastrointestinal: normoactive bowel sounds - Integumentary Integumentary: normal - Neurologic Cranial nerve examination: PERRL, EOMI, VFF, V1/V2/V3 grossly intact, face symmetric, tongue midline, intact gag reflex, intact corneal reflex, normal palatal elevation Speech examination: intact Sensorimotor examination: intact Motor examination - right side: 2/5: toe extension (EHL), plantarflexion, 3/5: knee extensors, dorsiflexion, 4/5: biceps, triceps, wrist flexion, wrist extension, care specialist, hip flexors Motor examination - left side: 4/5: biceps, triceps, wrist flexion, wrist extension, care specialist, hip flexors, knee extensors, dorsiflexion, toe extension (EHL) , plantarflexion Detailed sensory examination: intact Reflex and gait examination: intact Reflexes: 1+: ankle, bicep, knee, tricep - Musculoskeletal Musculoskeletal: no pain - Psychiatric Psychiatric: mood/affect appropriate, cooperative Results - Laboratory Findings CBC and BMP: 01/26/18 15:55 01/26/18 15:55 Abnormal Lab Findings: Abnormal Labs 01/26/18 01/26/18 01/26/18 15:55 15:55 16:23 WBC 19.4 H Neutrophils # 15.0 H Glucose 116 H Total Bilirubin 0.1 L Total Protein 6.1 L Urine Blood Moderate H Ur Leukocyte Esterase Trace H Urine Bacteria Rare H Urine Mucus Rare H U Marijuana (THC) Screen Detected H Assessment and Plan (1) Multiple sclerosis exacerbation Current Visit: Yes Status: Acute Code(s): G35 - MULTIPLE SCLEROSIS SNOMED Code(s): 320829660 (2) Chronic pain syndrome Current Visit: Yes Status: Acute Code(s): G89.4 - CHRONIC PAIN SYNDROME SNOMED Code(s): 251511520 (3) Weakness Current Visit: No Status: Acute Code(s): R53.1 - WEAKNESS SNOMED Code(s): 67144207 (4) Optic neuritis due to multiple sclerosis Current Visit: No Status: Chronic Code(s): H46.9 - UNSPECIFIED OPTIC NEURITIS; G35 - MULTIPLE SCLEROSIS SNOMED Code(s): 39513463 Plan: This patient is a 38-year-old female who has a known history of relapsing remitting form of multiple sclerosis. She was diagnosed in 2008. She follows with a neurologist in [place] for her MS condition in the past. She was last seen there last year. She was admitted to [facility] in May 2017 for acute MS exacerbation. Since that time she has stopped taking all MS medications. She was doing well until her admission today where she is had evidence of right leg weakness and some blurred vision. This is very typical of her MS exacerbation. We have recommended that she should be treated for 3 days with IV Solu-Medrol for treatment of acute MS exacerbation. We recommend she follow up in the ophthalmology clinic for evaluation of right eye blurriness and possible optic neuritis. We are recommending she should consider following up with the neurologist for further management of her MS condition since she appears to have relapses frequently. We will obtain physical therapy consultation for the patient as well. She will require 3 days of IV Solu-Medrol therapy. She is requesting a pain management consultation and we will arrange for this as well. Overall prognosis at this time remains guarded. We will continue close neurological follow-up for the patient during this admission. Time with Patient: Greater than 30
[2018-01-26] MEDS: ONDANSETRON 4 MG/2 ML VIAL IVP PRN (23:11)
[2018-01-27] MEDS: oxyCODONE-APAP 5-325MG 1 EACH TAB PO PRN ×6 (00:43→22:57)
[2018-01-27] MEDS: METOCLOPRAMIDE 5 MG/ML 2 ML VIAL IVP PRN ×3 (05:34→19:55)
[2018-01-27] MEDS: ALBUTEROL NEBULIZED 2.5 MG/3 ML INHALATION PRN ×4 (05:44→20:49)
[2018-01-27 07:41] LABS: Glucose,Whole Blood 133 mg/dL (75-99)
[2018-01-27] MEDS: INSULIN ASPART 100 UNIT/ML 1 ML 10 ML VIAL SQ SCH ×4 (08:47→22:57)
[2018-01-27] MEDS: PANTOPRAZOLE 40 MG/10 ML VIAL IVP SCH (08:55)
[2018-01-27] MEDS: ONDANSETRON 4 MG/2 ML VIAL IVP PRN ×2 (08:57→16:33)
[2018-01-27 12:28] LABS: Glucose,Whole Blood 229 mg/dL (75-99)
--- NOTE | 2018-01-27 12:32 | P.HPIM ---
History of Present Illness This is a pleasant 38 years old lady with past medical history of multiple sclerosis which was first diagnosed in 2008 and currently on no medications since 2017 after she has been admitted to this hospital for acute MS exacerbation with unilateral I and extremity complaints. She presents this time with blurred right eye and pain, with weakness on her right lower extremity which are typical for her MS exacerbation as per patient. She's been recently treated for bronchitis with steroids and antibiotic before she developed these symptoms. Patient also complains from chronic pain syndrome but she hasn't seen a pain specialist, patient was requesting to be seen by his pain specialist which was ordered. In the ED CT of the head was negative for acute process, chest x-ray was unremarkable she was admitted for MS exacerbation with neurologist evaluation And Recommended IV Solu-Medrol for 3 Days and Car Runner to Evaluate the Patient. Also They Recommended Patient to Be Evaluated by Pain Specialist. Patient states she has chronic pain in her lower legs and arms that's flareup with MS, Review of Systems CONSTITUTIONAL: No fever, no malaise, no fatigue. HEENT: No recent visual problems or hearing problems. Denied any sore throat. CARDIOVASCULAR: No orthopnea, PND, no palpitations, no syncope. PULMONARY: No shortness of breath, no cough, no hemoptysis. GASTROINTESTINAL: No diarrhea, no nausea, no vomiting, no abdominal pain. Normoactive bowel sounds. NEUROLOGICAL: No headaches, no weakness, no numbness. HEMATOLOGICAL: Denies any bleeding or petechiae. GENITOURINARY: Denies any burning micturition, frequency, or urgency. MUSCULOSKELETAL/RHEUMATOLOGICAL: Denies any joint pain, swelling, or any muscle pain. ENDOCRINE: Denies any polyuria or polydipsia. Past Medical History Past Medical History: Asthma, Fibromyalgia, GERD/Reflux, Hypertension, Musculoskeletal Disorder, Neurologic Disorder, Renal Disease, Seizure Disorder Additional Past Medical History / Comment(s): Multiple Sclerosis, migraines, DJD , interstitial cystitis, UTI, PCOS, vit D deficiency, bilateral optic neuritis with visual problems, chronic pain, numbness/tingling R side of body.tachycardia , c-diff 5-9-15, History of Any Multi-Drug Resistant Organisms: None Reported Date of last positivie culture/infection: None MDRO Source:: None Past Surgical History: Cholecystectomy, Orthopedic Surgery Additional Past Surgical History / Comment(s): Lt shoulder rotator cuff repair 06/06/14 @ [facility].- pt has since re-torn, Arthroscopic left knee 2000 & 2002. ARTHROSCOPY LT SHOULDER. Past Anesthesia/Blood Transfusion Reactions: No Reported Reaction Additional Past Anesthesia/Blood Transfusion Reaction / Comment(s): Pt has never recieved blood. Past Psychological History: Anxiety, Depression Smoking Status: Former smoker Past Alcohol Use History: None Reported Past Drug Use History: None Reported - Past Family History Mother Family Medical History: No Reported History Additional Family Medical History / Comment(s): mother is healthy Father Family Medical History: Hypertension Medications and Allergies Home Medications Medication Instructions Recorded Confirmed Type Albuterol Inhaler [Ventolin Hfa 2 puff INHALATION RT-QID PRN 12/09/13 01/26/18 History Inhaler] Ipratropium/Albuterol Sulfate 1 puff INHALATION RT-QID PRN 12/09/13 01/26/18 History [Combivent Respimat Inhaler] Albuterol Nebulized [Ventolin 2.5 mg INHALATION RT-QID PRN 01/26/18 01/26/18 History Nebulized] Ipratropium Nebulized [Atrovent 0.5 mg INHALATION RT-QID PRN 01/26/18 01/26/18 History Nebulized] Allergies Allergy/AdvReac Type Severity Reaction Status Date / Time amoxicillin [Amoxicillin] Allergy Severe Anaphylaxis, Verified 01/26/18 15:24 seizures ciprofloxacin [From Cipro] Allergy Severe Rash/Hives, Verified 01/26/18 15:24 seizures codeine phosphate Allergy Unknown Rash/Hives Verified 01/26/18 15:24 [From Tylenol-Codeine #3] cefuroxime axetil Allergy Rash/Hives Verified 01/26/18 15:24 [From Ceftin] latex Allergy Rash/Hives Verified 01/26/18 15:24 NSAIDS (Non-Steroidal Allergy Rash/Hives/Lip Verified 01/26/18 15:24 Anti-Inflamma Swelling Physical Exam Vitals: Vital Signs Temp Pulse Pulse Resp BP BP Pulse Ox 01/27/18 10:38 96 01/27/18 10:31 92 01/27/18 05:51 88 01/27/18 05:45 98.1 F 88 99 18 144/89 97 01/26/18 23:00 98.1 F 86 18 129/80 98 01/26/18 18:47 98.1 F 86 18 131/78 99 01/26/18 15:10 98.3 F 107 H 20 143/81 96 Intake and Output 01/26/18 01/27/18 01/27/18 22:59 06:59 14:59 Other: # Voids 0 1 Weight 99.79 kg GENERAL: The patient is alert and oriented x3, not in any acute distress. Well developed, well nourished. HEENT: Pupils are round and equally reacting to light. EOMI. No scleral icterus. No conjunctival pallor. Normocephalic, atraumatic. No pharyngeal erythema. No thyromegaly. CARDIOVASCULAR: S1 and S2 present. No murmurs, rubs, or gallops. PULMONARY: Chest is clear to auscultation, no wheezing or crackles. ABDOMEN: Soft, nontender, nondistended, normoactive bowel sounds. No palpable organomegaly. MUSCULOSKELETAL: No joint swelling or deformity. EXTREMITIES: No cyanosis, clubbing, or pedal edema. NEUROLOGICAL: Gross neurological examination did not reveal any focal deficits. SKIN: No rashes. Results CBC & Chem 7: 01/26/18 15:55 01/26/18 15:55 Labs: Abnormal Lab Results - Last 24 Hours (Table) 01/26/18 01/26/18 01/26/18 Range/Units 15:55 15:55 16:23 WBC 19.4 H (3.8-10.6) k/uL Neutrophils # 15.0 H (1.3-7.7) k/uL Glucose 116 H (74-99) mg/dL POC Glucose (mg/dL) (75-99) mg/dL Total Bilirubin 0.1 L (0.2-1.3) mg/dL Total Protein 6.1 L (6.3-8.2) g/dL Urine Blood Moderate H (Negative) Ur Leukocyte Esterase Trace H (Negative) Urine Bacteria Rare H (None) /hpf Urine Mucus Rare H (None) /hpf U Marijuana (THC) Screen Detected H (NotDetected) 01/26/18 01/27/18 Range/Units 20:32 07:35 WBC (3.8-10.6) k/uL Neutrophils # (1.3-7.7) k/uL Glucose (74-99) mg/dL POC Glucose (mg/dL) 105 H 133 H (75-99) mg/dL Total Bilirubin (0.2-1.3) mg/dL Total Protein (6.3-8.2) g/dL Urine Blood (Negative) Ur Leukocyte Esterase (Negative) Urine Bacteria (None) /hpf Urine Mucus (None) /hpf U Marijuana (THC) Screen (NotDetected) Thrombosis Risk Factor Assmnt - Choose All That Apply Any of the Below Risk Factors Present?: Yes Each Factor Represents 1 point: Obesity (BMI >25) Other Risk Factors: No Thrombosis Risk Factor Assessment Total Risk Factor Score: 1 Thrombosis Risk Factor Assessment Level: Low Risk Assessment and Plan Assessment: -Multiple sclerosis since 2008, with possible acute exacerbation with right eye blurred vision and right lower extremity weakness -Chronic pain syndrome with exacerbation during MS -Current smoker -History of asthma -History of fibromyalgia -History of GERD Plan: Continue with the same treatment with IV Solu-Medrol. Continue with symptomatic treatment. Neurology team is following the patient and recommended 3 days of steroids and enrolled nurse evaluation. Patient states that she has flareup of her pain with MS and the recommended pain specialist evaluation, currently she is on OxyCodon 12/11/2024 milligrams. Also we checked lower extremity to rule out DVT. Patient CT of the head and chest x-ray on admission were unremarkable. She has leukocytosis at 19.4 K but no fever, no overt signs symptoms of infection and she was recently treated for steroids as well as she is currently on steroids, mostly this is reactive follow-up level, no need for antibiotics for now. Also we'll ask for PT and OT evaluation Continue with DVT and GI prophylaxis DVT prophylaxis with heparin GI prophylaxis with Protonix PT/OT is pending Patient states she follow up with Dr. reed as outpatient
[2018-01-27] MEDS ORDERED: NICOTINE 21MG/24HR PATCH TRANSDERM SCH (13:00)
[2018-01-27] MEDS ORDERED: BUTALB/APAP/CAFF 50-325-40MG TAB PO PRN (13:07)
[2018-01-27 13:30] LABS: HCT 43.4 % (34.0-46.0); HGB 14.1 gm/dL (11.4-16.0); MCH 28.8 pg (25.0-35.0); MCHC 32.5 g/dL (31.0-37.0); MCV 88.6 fL (80.0-100.0); Mean Platelet Volume 7.1; Platelet Count 422 k/uL (150-450); RDW 13.3 % (11.5-15.5)
[2018-01-27 13:35] LABS: WBC 34.6 k/uL (3.8-10.6)
[2018-01-27 13:44] LABS: Band Neutrophils % 2 %; Lymphocytes # (M) 1.73 k/uL (1.0-4.8); Monocytes # (M) 0.35 k/uL (0-1.0); Neutrophils % (M) 93 %; Nucleated Red Blood Cells 0 /100 WBC (0-0); Total Cells Counted 200
[2018-01-27 13:46] LABS: Anion Gap 20 mmol/L; Blood Urea Nitrogen 11 mg/dL (7-17); Calcium 9.8 mg/dL (8.4-10.2); Carbon Dioxide 18 mmol/L (22-30); Chloride 101 mmol/L (98-107); Glucose 182 mg/dL (74-99); Potassium 4.1 mmol/L (3.5-5.1); Sodium 139 mmol/L (137-145)
[2018-01-27 13:48] LABS: HCG,Qualitative Serum Not Detected
[2018-01-27 14:01] LABS: Hemoglobin A1C 5.5 % (4.0-6.0)
--- NOTE | 2018-01-27 14:37 | US ---
EXAMINATION TYPE: US venous doppler duplex LE BI DATE OF EXAM: 01/27/2018 2:27 PM COMPARISON: NONE CLINICAL HISTORY: Rule out DVT. Bilateral leg pain SIDE PERFORMED: Bilateral TECHNIQUE: The lower extremity deep venous system is examined utilizing real time linear array sonog colin with graded compression, doppler sonography and color-flow sonography. VESSELS IMAGED: External Iliac Vein (EIV) Common Femoral Vein Deep Femoral Vein Greater Saphenous Vein * Femoral Vein Popliteal Vein Small Saphenous Vein * Proximal Calf Veins (* superficial vessels) Right Leg: Negative for DVT Left Leg: Negative for DVT IMPRESSION: 1. No diagnostic evidence of DVT as visualized.
[2018-01-27] MEDS ORDERED: SUMAtriptan SUCCINATE 25 MG TAB PO STA (15:00)
[2018-01-27 16:02] VITALS: BP 134/75
[2018-01-27 17:32] LABS: Glucose,Whole Blood 203 mg/dL (75-99)
--- NOTE | 2018-01-27 18:43 | P.PN ---
Subjective Progress Note Date: 01/27/18 This patient is a 38-year-old female admitted with acute MS exacerbation. Patient has a long-standing history of underlying multiple sclerosis. She stopped all of her MS medications last year and was admitted for acute right- sided weakness. She was started on IV Solu-Medrol yesterday on admission for treatment of acute MS exacerbation. Today she is noticing improvement with the right side weakness as well as vision improvement in the right eye. Ophthalmology has been consulted for further evaluation of optic neuritis. We have recommended patient to complete a course of at least 3 days of IV Solu- Medrol and hopefully be able to be discharged at that time. She continues to show some improvement with her symptoms today as compared to yesterday. She did undergo a Doppler ultrasound of the lower extremities which came back negative for DVT. She has been up and ambulating in her room with some improvement with right-sided weakness. We will continue close neurological follow-up with the patient during this admission. Objective - Vital Signs Vital signs: Vital Signs Temp 97.1 F L 01/27/18 15:00 Pulse 92 01/27/18 16:26 Resp 19 01/27/18 15:00 BP 134/75 01/27/18 15:00 Pulse Ox 97 01/27/18 15:00 Intake & Output 01/26/18 01/27/18 01/27/18 18:59 06:59 18:59 Weight 99.79 kg Other: # Voids 1 3 - Exam Physical Examination: PHYSICAL EXAMINATION: Patient is resting comfortably in bed. VITAL SIGNS: Blood pressure is [134/75]. Heart rate is [112]. Respiration is [20 ]. Temperature is [97.1]. HEENT: Head is atraumatic, neck is supple, there were no carotid bruits. CHEST: Lungs are clear to auscultation and percussion. CARDIAC: S1, S2 normal rate and rhythm. There is no murmur. ABDOMEN: Soft and nontender. Bowel sounds are present. EXTREMITIES: There is no pedal edema. Peripheral pulses are present. Neurological examination: Patient's neurological examination is unchanged from yesterday. Slight improvement with vision in her right eye today. - Labs CBC & Chem 7: 01/27/18 12:57 01/27/18 12:57 Labs: Abnormal Lab Results - Last 24 Hours (Table) 01/26/18 01/27/18 01/27/18 Range/Units 20:32 07:35 12:24 WBC (3.8-10.6) k/uL Neutrophils # (Manual) (1.3-7.7) k/uL Carbon Dioxide (22-30) mmol/L Glucose (74-99) mg/dL POC Glucose (mg/dL) 105 H 133 H 229 H (75-99) mg/dL 01/27/18 01/27/18 Range/Units 12:57 12:57 WBC 34.6 H* (3.8-10.6) k/uL Neutrophils # (Manual) 32.80 H (1.3-7.7) k/uL Carbon Dioxide 18 L (22-30) mmol/L Glucose 182 H (74-99) mg/dL POC Glucose (mg/dL) (75-99) mg/dL Assessment and Plan (1) Multiple sclerosis exacerbation Current Visit: Yes Status: Acute Code(s): G35 - MULTIPLE SCLEROSIS SNOMED Code(s): 865250780 (2) Chronic pain syndrome Current Visit: Yes Status: Acute Code(s): G89.4 - CHRONIC PAIN SYNDROME SNOMED Code(s): 637197631 (3) Weakness Current Visit: No Status: Acute Code(s): R53.1 - WEAKNESS SNOMED Code(s): 56084951 (4) Optic neuritis due to multiple sclerosis Current Visit: No Status: Chronic Code(s): H46.9 - UNSPECIFIED OPTIC NEURITIS; G35 - MULTIPLE SCLEROSIS SNOMED Code(s): 18870696 Plan: This patient is a 38-year-old female admitted with acute MS exacerbation. She has been doing quite well overall today and is noted improvement with her right eye vision. She is also noted slight improvement with the right lower extremity strength. She is to complete 3 days of IV Solu-Medrol at which time she will be reassessed for possible discharge home. She clearly seems to be showing some improvement since yesterday. She was evaluated for DVT in the lower extremities which did come back negative today. We encouraged her to remain active and to work with physical therapy to increase mobility. Her overall prognosis at this time remains guarded.
[2018-01-27 20:35] LABS: Glucose,Whole Blood 181 mg/dL (75-99)
[2018-01-27] MEDS ORDERED: diphenhydrAMINE 50 MG/ML 1 ML VIAL IVP ONE (21:00)
[2018-01-27] MEDS ORDERED: HEPARIN SODIUM,PORCINE 5,000 UNIT/ML 1 ML VIAL SQ SCH (21:00)
[2018-01-27 22:49] VITALS: PULSE 117; RESP 18; TEMP 97.8
[2018-01-28] MEDS: ONDANSETRON 4 MG/2 ML VIAL IVP PRN (01:07)
[2018-01-28] MEDS: METOCLOPRAMIDE 5 MG/ML 2 ML VIAL IVP PRN (03:19)
[2018-01-28] MEDS: oxyCODONE-APAP 5-325MG 1 EACH TAB PO PRN (03:19)
--- NOTE | 2018-01-28 05:53 | CONS ---
CONSULTATION OPHTHALMOLOGY CONSULT CONSULTATION DATE: 01/27/2018 CHIEF COMPLAINT: Blurred vision, right eye. HISTORY OF PRESENT ILLNESS: Lyndsay is a 38-year-old white female who was admitted for an acute multiple sclerosis exacerbation. The patient noted blurry vision in her right eye for approximately the last week. The patient has noted that since her admission one day prior to this consultation, her vision has improved. The blurred vision came on suddenly and was constant. There were no alleviating factors. There was no eye pain. There was no associated redness, flashes or floaters. The patient reports one episode in the past of optic neuritis that was treated and resolved. REVIEW OF SYSTEMS: The patient did note weakness in her right lower extremity and occasional pain. Otherwise, denies chills, fever, headache or shortness of breath. PAST MEDICAL HISTORY: Significant for asthma, fibromyalgia, GERD, hypertension, seizure disorder, multiple sclerosis, migraines. PAST SURGICAL HISTORY: Cholecystectomy, left shoulder rotator cuff repair, arthroscopic left knee surgery. HOME MEDICATIONS: Albuterol, Atrovent. DRUG ALLERGIES: The patient notes allergy to AMOXICILLIN, CIPROFLOXACIN, CODEINE, CEFTIN, LATEX, NSAIDs. SOCIAL HISTORY: Current daily smoker. Denies alcohol use. OPHTHALMIC HISTORY: Significant for episode of optic neuritis in the past. OPHTHALMIC EXAM: Visual acuity is 20/25 at near in the right eye and 20/30 at near in the left eye with correction. Intra-ocular pressure is soft to palpation, both eyes. Pupils are equal, round, and reactive to light and accommodation. There is no . Extraocular movements are full in both eyes. Anterior examination reveals normal cornea and white conjunctiva. The lens is clear in both eyes. Posterior examination is within normal limits. ASSESSMENT AND PLAN: 1. Optic neuritis, right eye. The patient had notable symptoms of recurrence of her optic neuritis. I agree with current treatment plan of IV Solu-Medrol for 3 days followed by 11 days of p.o. prednisone. Usually the p.o. prednisone is dosed at approximately 60 mg per day and quickly tapered at the end of the 11 days. I would also recommend evaluation as an outpatient in my office in approximately 2 weeks. 2. Multiple sclerosis. Continue followup with neurologist for appropriate treatment. Thank you for allowing me to participate in this patient's care. MMODL / IJN: [id number] /
[2018-01-28] MEDS ORDERED: PANTOPRAZOLE 40 MG TABLET PO SCH (07:30)
--- NOTE | 2018-01-29 23:56 | P.DS ---
Providers Date of admission: 01/26/18 17:39 Attending physician: Rodolfo Soto Consults: 01/26/18 17:40 Consult Physician Routine Consulting Provider: Mono Davis Consult Reason/Comments: MS exacerbation Do you want consulting provider notified?: Yes 01/27/18 08:00 Consult Physician Urgent Consulting Provider: Mian Kemp Consult Reason/Comments: Optic neuritis right eye. Do you want consulting provider notified?: Yes Primary care physician: [facility] Course: PLEASE NOT THIS IS NOT A DISCHARGE SUMMARY BECAUSE PATIENT WAS NOT DISCHARGED BUT LEFT AND SIGNED AMA This is a pleasant 38 years old lady with past medical history of multiple sclerosis which was first diagnosed in 2008 and currently on no medications since 2017 after she has been admitted to this hospital for acute MS exacerbation with unilateral I and extremity complaints. She presents this time with blurred right eye and pain, with weakness on her right lower extremity which are typical for her MS exacerbation as per patient. She's been recently treated for bronchitis with steroids and antibiotic before she developed these symptoms. Patient also complains from chronic pain syndrome but she hasn't seen a pain specialist, patient was requesting to be seen by his pain specialist which was ordered. In the ED CT of the head was negative for acute process, chest x-ray was unremarkable she was admitted for MS exacerbation with neurologist evaluation And Recommended IV Solu-Medrol for 3 Days and Group Burner Machine to Evaluate the Patient. Also They Recommended Patient to Be Evaluated by Pain Specialist. Patient states she has chronic pain in her lower legs and arms that's flareup with MS, Pt has negative B/L venous doppler for DVT. pt was evaluated by nail professional too who recommended steroid too. i was called by the bed side RN that pt signed and left AMA before i have a chance to see her and talk to her Patient Condition at Discharge: Undetermined Plan - Discharge Summary Discharge Rx Participant: No New Discharge Prescriptions: No Action Ipratropium/Albuterol Sulfate [Combivent Respimat Inhaler] 1 puff INHALATION RT-QID PRN PRN Reason: Shortness Of Breath Albuterol Inhaler [Ventolin Hfa Inhaler] 2 puff INHALATION RT-QID PRN PRN Reason: Shortness Of Breath Ipratropium Nebulized [Atrovent Nebulized] 0.5 mg INHALATION RT-QID PRN PRN Reason: Shortness Of Breath Albuterol Nebulized [Ventolin Nebulized] 2.5 mg INHALATION RT-QID PRN PRN Reason: Shortness Of Breath Discharge Medication List Albuterol Inhaler [Ventolin Hfa Inhaler] 2 puff INHALATION RT-QID PRN 12/09/13 [ History] Ipratropium/Albuterol Sulfate [Combivent Respimat Inhaler] 1 puff INHALATION RT- QID PRN 12/09/13 [History] Albuterol Nebulized [Ventolin Nebulized] 2.5 mg INHALATION RT-QID PRN 01/26/18 [ History] Ipratropium Nebulized [Atrovent Nebulized] 0.5 mg INHALATION RT-QID PRN [History] Discharge Disposition: Left Against Medical Advice
== END 2018-01-28 05:30 | disposition left against medical advice (07) ==
LOC: EC 15:06 → 4MS4W 17:39
PROVIDERS: ADMIT Hospitalist; ATTEND Hospitalist
DX: G35 Multiple sclerosis (principal); Z53.21 Procedure and treatment not carried out due to patient leaving prior to being seen by health care provider; M79.605 Pain in left leg; M79.604 Pain in right leg; G89.4 Chronic pain syndrome; H46.9 Unspecified optic neuritis; J45.909 Unspecified asthma, uncomplicated; M79.7 Fibromyalgia; K21.9 Gastro-esophageal reflux disease without esophagitis; I10 Essential (primary) hypertension; G40.909 Epilepsy, unspecified, not intractable, without status epilepticus; G43.909 Migraine, unspecified, not intractable, without status migrainosus; F17.200 Nicotine dependence, unspecified, uncomplicated; M19.90 Unspecified osteoarthritis, unspecified site; Z87.440 Personal history of urinary (tract) infections; D72.829 Elevated white blood cell count, unspecified; E55.9 Vitamin D deficiency, unspecified; R00.0 Tachycardia, unspecified; Z90.49 Acquired absence of other specified parts of digestive tract; Z82.49 Family history of ischemic heart disease and other diseases of the circulatory system; Z88.0 Allergy status to penicillin; Z88.5 Allergy status to narcotic agent; Z88.8 Allergy status to other drugs, medicaments and biological substances; Z88.1 Allergy status to other antibiotic agents; Z91.040 Latex allergy status; E66.9 Obesity, unspecified; Z68.35 Body mass index [BMI] 35.0-35.9, adult; R11.2 Nausea with vomiting, unspecified
CPT/HCPCS: 96375 ×5; 96376 ×2; 96365; 96366 ×3; 96372; 99285; 36415; 94640 ×2; 97163; 97166; 80053; 80048; 83735; 85025 ×2; 81001; 81025; 84703; 80306; 83036; 71046; 93970; 70450; G0378 ×3; S4990; J1200 ×2; J1644; J2765 ×3; J2405 ×3; J2930 ×3; C9113 ×2

== ENCOUNTER → 2018-03-12 | Outpatient (CLI) | payer MEDICARE, OTHER ==
--- NOTE | 2018-03-12 19:04 | CT ---
EXAMINATION TYPE: CT abdomen pelvis wo con DATE OF EXAM: 03/12/2018 COMPARISON: 05/10/2017 HISTORY: LOWER ABDOMINAL PAIN AND PELIVC SWELLING CT DLP: 1116 mGycm Automated exposure control for dose reduction was used. TECHNIQUE: Helical acquisition of images was performed from the lung bases through the pelvis. There is oral contrast. FINDINGS: The lung bases are clear. There is no pleural effusion. Heart size is normal. Liver spleen pancreas appear normal. Bile ducts are not dilated. There are clips from cholecystectomy . There is no adrenal mass. Kidneys have normal size and contour. There is no hydronephrosis. Bladder d istends smoothly. There is no retroperitoneal adenopathy. Uterus is anteverted. I see no bony destruc tive process. Appendix is not seen. There is no sign of appendicitis. There is no intestinal wall thi ckening. There are no dilated loops. There is no ascites. There is no sign of free air. IMPRESSION: NEGATIVE CT SCAN OF THE ABDOMEN AND PELVIS.
[2018-03-12 19:06] LABS: Basophils # (A) 0.1 k/uL (0-0.2); Basophils % (A) 0 %; Eosinophils # (A) 0.4 k/uL (0-0.7); Eosinophils % (A) 2 %; HCT 42.8 % (34.0-46.0); HGB 14.1 gm/dL (11.4-16.0); Lymphocytes # (A) 4.4 k/uL (1.0-4.8); Lymphocytes % (A) 16 %; MCH 28.3 pg (25.0-35.0); MCHC 32.9 g/dL (31.0-37.0); MCV 86.2 fL (80.0-100.0); Mean Platelet Volume 7.5; Monocytes # (A) 0.9 k/uL (0-1.0); Monocytes % (A) 3 %; Neutrophils # (A) 21.3 k/uL (1.3-7.7); Neutrophils % (A) 78 %; Platelet Count 365 k/uL (150-450); RBC 4.97 m/uL (3.80-5.40); RDW 14.7 % (11.5-15.5)
[2018-03-12 19:18] LABS: ALT 25 U/L (9-52); AST 24 U/L (14-36); Albumin 4.7 g/dL (3.5-5.0); Alkaline Phosphatase 56 U/L (38-126); Amylase 54 U/L (30-110); Anion Gap 12 mmol/L; Blood Urea Nitrogen 11 mg/dL (7-17); Carbon Dioxide 22 mmol/L (22-30); Chloride 102 mmol/L (98-107); Glucose 85 mg/dL (74-99); Lipase 229 U/L (23-300); Sodium 136 mmol/L (137-145); Total Bilirubin 0.3 mg/dL (0.2-1.3); Total Protein 7.1 g/dL (6.3-8.2)
[2018-03-12 19:24] LABS: WBC 27.4 k/uL (3.8-10.6)
== END | disposition home or self-care (01) ==
LOC: RADCTMAIN 16:17
PROVIDERS: ATTEND Registered Nurse
DX: R19.00 Intra-abdominal and pelvic swelling, mass and lump, unspecified site (principal); R53.83 Other fatigue; R19.7 Diarrhea, unspecified; R19.03 Right lower quadrant abdominal swelling, mass and lump
CPT/HCPCS: 74176; 80053; 82150; 83690; 85025

== ENCOUNTER 2018-03-13 07:17 | Emergency (ER) | payer MEDICARE, OTHER ==
[2018-03-13] MEDS ORDERED: SODIUM CHLORIDE 0.9% 1,000 ML IV ONE (07:40)
--- NOTE | 2018-03-13 07:45 | ED ---
General Adult HPI - General Chief complaint: Abdominal Pain Stated complaint: Rt Flank pain Time Seen by Provider: 03/13/18 07:28 Source: patient, RN notes reviewed, old records reviewed Mode of arrival: ambulatory Limitations: no limitations - History of Present Illness Initial comments: 38-year-old female presented for evaluation of elevated white blood cell count. Patient was instructed by her primary care physician and presented to the emergency department with chief complaint of abdominal pain and outpatient laboratory studies revealing leukocytosis. Patient was evaluated yesterday by her primary care physician with symptoms of right-sided abdominal pain as well as profound diarrhea. Patient has had for 5 episodes of diarrhea daily for the past 5 days. She has had some nausea, no vomiting. Denies fever or chills. She has felt some pain in her right side of her abdomen as well as a palpable lump. Patient has past surgical history of cholecystectomy. - Related Data Home Medications Medication Instructions Recorded Confirmed Albuterol Inhaler [Ventolin Hfa 2 puff INHALATION RT-QID PRN 12/09/13 02/05/18 Inhaler] Ipratropium/Albuterol Sulfate 1 puff INHALATION RT-QID PRN 12/09/13 02/05/18 [Combivent Respimat Inhaler] Albuterol Nebulized [Ventolin 2.5 mg INHALATION RT-QID PRN 01/26/18 02/05/18 Nebulized] Ipratropium Nebulized [Atrovent 0.5 mg INHALATION RT-QID PRN 01/26/18 02/05/18 Nebulized] Previous Rx's Medication Instructions Recorded Sulfamethox-Tmp 800-160Mg [Bactrim 1 tab PO Q12HR #28 tab 03/13/18 DS 800-160 mg] Allergies Allergy/AdvReac Type Severity Reaction Status Date / Time amoxicillin [Amoxicillin] Allergy Severe Anaphylaxis, Verified 03/13/18 07:23 seizures ciprofloxacin [From Cipro] Allergy Severe Rash/Hives, Verified 03/13/18 07:23 seizures codeine phosphate Allergy Unknown Rash/Hives Verified 03/13/18 07:23 [From Tylenol-Codeine #3] cefuroxime axetil Allergy Rash/Hives Verified 03/13/18 07:23 [From Ceftin] latex Allergy Rash/Hives Verified 03/13/18 07:23 NSAIDS (Non-Steroidal Allergy Rash/Hives/Lip Verified 03/13/18 07:23 Anti-Inflamma Swelling Review of Systems ROS Statement: Those systems with pertinent positive or pertinent negative responses have been documented in the HPI. ROS Other: All systems not noted in ROS Statement are negative. Past Medical History Past Medical History: Asthma, Fibromyalgia, GERD/Reflux, Hypertension, Musculoskeletal Disorder, Neurologic Disorder, Seizure Disorder Additional Past Medical History / Comment(s): Multiple Sclerosis, migraines, DJD , interstitial cystitis, UTI, PCOS, vit D deficiency, bilateral optic neuritis with visual problems, chronic pain, numbness/tingling R side of body.tachycardia , c-diff 5-9-15, History of Any Multi-Drug Resistant Organisms: None Reported Date of last positivie culture/infection: None MDRO Source:: None Past Surgical History: Cholecystectomy, Orthopedic Surgery Additional Past Surgical History / Comment(s): Lt shoulder rotator cuff repair 06/06/14 @ [facility] pt has since re-torn, Arthroscopic left knee 2000 & 2002. ARTHROSCOPY LT SHOULDER. Past Anesthesia/Blood Transfusion Reactions: No Reported Reaction Additional Past Anesthesia/Blood Transfusion Reaction / Comment(s): Pt has never recieved blood. Past Psychological History: No Psychological Hx Reported, Anxiety, Depression Smoking Status: Former smoker Past Alcohol Use History: None Reported Past Drug Use History: None Reported - Past Family History Mother Family Medical History: No Reported History Additional Family Medical History / Comment(s): mother is healthy Father Family Medical History: Hypertension General Exam Limitations: no limitations General appearance: alert, in no apparent distress Head exam: Present: atraumatic, normocephalic Eye exam: Present: normal appearance, PERRL ENT exam: Present: normal exam Neck exam: Present: normal inspection. Absent: tenderness, meningismus Respiratory exam: Present: normal lung sounds bilaterally. Absent: respiratory distress, wheezes Cardiovascular Exam: Present: normal rhythm, tachycardia GI/Abdominal exam: Present: soft, mass (Right mid abdominal mass, approximately 1-2 cm, this is within the adipose tissue.), other (There is some erythema overlying point of abdominal tenderness. No induration, no fluctuance). Absent : distended, tenderness, guarding, rebound Extremities exam: Present: normal inspection, full ROM, normal capillary refill Neurological exam: Present: alert, oriented X3, CN II-XII intact. Absent: motor sensory deficit Psychiatric exam: Present: normal affect, normal mood Skin exam: Present: warm, dry, intact. Absent: cyanosis, diaphoretic Course Vital Signs 03/13/18 07:23 Temperature 98.5 F Pulse Rate 110 H Respiratory 18 Rate Blood Pressure 123/92 O2 Sat by Pulse 98 Oximetry Medical Decision Making - Medical Decision Making 38 female presenting for elevated white blood cell count and diarrhea as well as abdominal tenderness. On examination patient does have a small area of erythema abdominal wall with palpable mass. This is visualized on computed tomography scan which was obtained yesterday, radiology reports this as inflammation, phlegmon, no drainable abscess. This is consistent with exam findings. This may be a cellulitis with early abscess versus nonspecific mass. Patient's leukocytosis is down trending, went from 28,021.6. Lactic acid mildly elevated at 2.1, this is likely secondary to dehydration secondary to diarrhea. C. difficile toxin is negative. Urinalysis does show some concern for infection. Given this and the cellulitis on the anterior abdominal wall patient will be started on Keflex. She is instructed to return with worsening symptoms including profound diarrhea and dehydration, fever, worsening abdominal wall pain, swelling, or purulent drainage. There is no concern for appendicitis or intra-abdominal infection at this time. She will follow-up with her primary care physician for repeat blood testing regarding her leukocytosis. Leukocytosis is likely secondary to diarrheal illness. - Lab Data Result diagrams: 03/13/18 08:15 03/13/18 08:15 Lab Results 03/13/18 03/13/18 03/13/18 Range/Units 08:15 08:15 08:15 WBC 21.6 H (3.8-10.6) k/uL RBC 4.74 (3.80-5.40) m/uL Hgb 13.5 (11.4-16.0) gm/dL Hct 41.2 (34.0-46.0) % MCV 86.8 (80.0-100.0) fL MCH 28.4 (25.0-35.0) pg MCHC 32.8 (31.0-37.0) g/dL RDW 14.9 (11.5-15.5) % Plt Count 361 (150-450) k/uL Neutrophils % 82 % Lymphocytes % 12 % Monocytes % 3 % Eosinophils % 2 % Basophils % 0 % Neutrophils # 17.6 H (1.3-7.7) k/uL Lymphocytes # 2.6 (1.0-4.8) k/uL Monocytes # 0.6 (0-1.0) k/uL Eosinophils # 0.4 (0-0.7) k/uL Basophils # 0.1 (0-0.2) k/uL Sodium 137 (137-145) mmol/L Potassium 4.4 (3.5-5.1) mmol/L Chloride 106 (98-107) mmol/L Carbon Dioxide 20 L (22-30) mmol/L Anion Gap 11 mmol/L BUN 9 (7-17) mg/dL Creatinine 0.65 (0.52-1.04) mg/dL Est GFR (CKD-EPI)AfAm >90 (>60 ml/min/1.73 sqM) Est GFR (CKD-EPI)NonAf >90 (>60 ml/min/1.73 sqM) Glucose 95 (74-99) mg/dL Plasma Lactic Acid Tom 2.1 H* (0.7-2.0) mmol/L Calcium 9.5 (8.4-10.2) mg/dL Total Bilirubin 0.7 (0.2-1.3) mg/dL AST 21 (14-36) U/L ALT 24 (9-52) U/L Alkaline Phosphatase 58 (38-126) U/L Total Protein 6.5 (6.3-8.2) g/dL Albumin 4.2 (3.5-5.0) g/dL Amylase 48 (30-110) U/L Lipase 58 (23-300) U/L Urine Color Urine Appearance (Clear) Urine pH (5.0-8.0) Ur Specific [place] (1.001-1.035) Urine Protein (Negative) Urine Glucose (UA) (Negative) Urine Ketones (Negative) Urine Blood (Negative) Urine Nitrite (Negative) Urine Bilirubin (Negative) Urine Urobilinogen (<2.0) mg/dL Ur Leukocyte Esterase (Negative) Urine RBC (0-5) /hpf Urine WBC (0-5) /hpf Ur Squamous Epith Cells (0-4) /hpf Urine Bacteria (None) /hpf Urine Mucus (None) /hpf Urine HCG, Qual (Not Detectd) C. difficile (EIA) Intrp (Negative) 03/13/18 03/13/18 03/13/18 Range/Units 08:34 Unknown Unknown WBC (3.8-10.6) k/uL RBC (3.80-5.40) m/uL Hgb (11.4-16.0) gm/dL Hct (34.0-46.0) % MCV (80.0-100.0) fL MCH (25.0-35.0) pg MCHC (31.0-37.0) g/dL RDW (11.5-15.5) % Plt Count (150-450) k/uL Neutrophils % % Lymphocytes % % Monocytes % % Eosinophils % % Basophils % % Neutrophils # (1.3-7.7) k/uL Lymphocytes # (1.0-4.8) k/uL Monocytes # (0-1.0) k/uL Eosinophils # (0-0.7) k/uL Basophils # (0-0.2) k/uL Sodium (137-145) mmol/L Potassium (3.5-5.1) mmol/L Chloride (98-107) mmol/L Carbon Dioxide (22-30) mmol/L Anion Gap mmol/L BUN (7-17) mg/dL Creatinine (0.52-1.04) mg/dL Est GFR (CKD-EPI)AfAm (>60 ml/min/1.73 sqM) Est GFR (CKD-EPI)NonAf (>60 ml/min/1.73 sqM) Glucose (74-99) mg/dL Plasma Lactic Acid Tom (0.7-2.0) mmol/L Calcium (8.4-10.2) mg/dL Total Bilirubin (0.2-1.3) mg/dL AST (14-36) U/L ALT (9-52) U/L Alkaline Phosphatase (38-126) U/L Total Protein (6.3-8.2) g/dL Albumin (3.5-5.0) g/dL Amylase (30-110) U/L Lipase (23-300) U/L Urine Color Yellow Urine Appearance Cloudy H (Clear) Urine pH 5.5 (5.0-8.0) Ur Specific [place] 1.022 (1.001-1.035) Urine Protein Trace H (Negative) Urine Glucose (UA) Negative (Negative) Urine Ketones Negative (Negative) Urine Blood Small H (Negative) Urine Nitrite Negative (Negative) Urine Bilirubin Negative (Negative) Urine Urobilinogen 2.0 (<2.0) mg/dL Ur Leukocyte Esterase Large H (Negative) Urine RBC 21 H (0-5) /hpf Urine WBC 11 H (0-5) /hpf Ur Squamous Epith Cells 24 H (0-4) /hpf Urine Bacteria Rare H (None) /hpf Urine Mucus Few H (None) /hpf Urine HCG, Qual Not Detected (Not Detectd) C. difficile (EIA) Intrp Negative (Negative) Disposition Clinical Impression: Leukocytosis, Abdominal wall cellulitis, Diarrhea Disposition: HOME SELF-CARE Condition: Good Instructions: Acute Diarrhea (ED), Cellulitis (ED), Leukocytosis (ED) Prescriptions: Sulfamethox-Tmp 800-160Mg [Bactrim DS 800-160 mg] 1 tab PO Q12HR #28 tab Is patient prescribed a controlled substance at d/c from ED?: No Referrals: Sj Fitch MD [Primary Care Provider] - 1-2 days Time of Disposition: 09:50
[2018-03-13] MEDS: ONDANSETRON 4 MG/2 ML VIAL IVP STA ×2 (08:20→09:59)
[2018-03-13 08:30] LABS: Basophils # (A) 0.1 k/uL (0-0.2); Basophils % (A) 0 %; Eosinophils # (A) 0.4 k/uL (0-0.7); Eosinophils % (A) 2 %; HCT 41.2 % (34.0-46.0); HGB 13.5 gm/dL (11.4-16.0); Lymphocytes # (A) 2.6 k/uL (1.0-4.8); Lymphocytes % (A) 12 %; MCH 28.4 pg (25.0-35.0); MCHC 32.8 g/dL (31.0-37.0); MCV 86.8 fL (80.0-100.0); Mean Platelet Volume 7.3; Monocytes # (A) 0.6 k/uL (0-1.0); Monocytes % (A) 3 %; Neutrophils # (A) 17.6 k/uL (1.3-7.7); Neutrophils % (A) 82 %; Platelet Count 361 k/uL (150-450); RBC 4.74 m/uL (3.80-5.40); RDW 14.9 % (11.5-15.5); WBC 21.6 k/uL (3.8-10.6)
[2018-03-13 08:47] LABS: Appearance,Urine Cloudy (Clear); Bacteria,Urine Rare /hpf; Bilirubin,Urine Negative (Negative); Blood,Urine Small (Negative); Color,Urine Yellow; Glucose,Urine (UA) Negative (Negative); Ketones,Urine Negative (Negative); Leukocyte Esterase,Urine Large (Negative); Mucus,Urine Few /hpf; Nitrite,Urine Negative (Negative); PH, Urine 5.5 (5.0-8.0); Protein,Urine Trace (Negative); RBC,Urine 21 /hpf (0-5); Specific Gravity,Urine 1.022 (1.001-1.035); Squamous Epithelial Cell,Urine 24 /hpf (0-4); WBC,Urine 11 /hpf (0-5)
[2018-03-13 08:49] LABS: ALT 24 U/L (9-52); AST 21 U/L (14-36); Albumin 4.2 g/dL (3.5-5.0); Alkaline Phosphatase 58 U/L (38-126); Amylase 48 U/L (30-110); Anion Gap 11 mmol/L; Blood Urea Nitrogen 9 mg/dL (7-17); Calcium 9.5 mg/dL (8.4-10.2); Carbon Dioxide 20 mmol/L (22-30); Chloride 106 mmol/L (98-107); Glucose 95 mg/dL (74-99); Lipase 58 U/L (23-300); Potassium 4.4 mmol/L (3.5-5.1); Sodium 137 mmol/L (137-145); Total Bilirubin 0.7 mg/dL (0.2-1.3); Total Protein 6.5 g/dL (6.3-8.2)
--- NOTE | 2018-03-13 09:35 | XR ---
EXAMINATION TYPE: XR KUB DATE OF EXAM: 03/13/2018 COMPARISON: 04/04/2016 INDICATION: Pain. Umbilical region x4 days TECHNIQUE: Single view abdomen frontal projection upright view FINDINGS: There is a normal bowel gas pattern. Some contrast is within the colon. No suspicious air-fluid level s or differential air-fluid levels are present. No free air is present. Psoas margins are normal. No organomegaly is present. IMPRESSION: 1. Unremarkable Abdomen
[2018-03-13] MEDS ORDERED: MORPHINE SULFATE 4 MG/ML SYRINGE IVP STA (09:47)
[2018-03-13 10:03] VITALS: BP 133/87; PULSE 95; RESP 16; TEMP 98.3
== END 2018-03-13 09:55 | disposition home or self-care (01) ==
LOC: EC 07:17
DX: L03.311 Cellulitis of abdominal wall (principal); R19.7 Diarrhea, unspecified; D72.829 Elevated white blood cell count, unspecified; R74.0 Nonspecific elevation of levels of transaminase and lactic acid dehydrogenase [LDH]; R00.0 Tachycardia, unspecified; R11.0 Nausea; J45.909 Unspecified asthma, uncomplicated; Z87.891 Personal history of nicotine dependence; Z88.0 Allergy status to penicillin; Z88.1 Allergy status to other antibiotic agents; Z88.5 Allergy status to narcotic agent; Z88.6 Allergy status to analgesic agent; Z91.040 Latex allergy status; Z90.49 Acquired absence of other specified parts of digestive tract
CPT/HCPCS: 36415; 80053; 82150; 83605; 83690; 85025; 81001; 81025; 87040; 87324; 74018; 99284; 96374; 96375; 96376; 96361; J2270; J2405

== ENCOUNTER → 2018-04-03 | Outpatient (CLI) | payer MEDICARE, OTHER ==
[~2018-04-03] MED LIST: ONDANSETRON 8 MG in SODIUM CHLORIDE 0.9% 50 ML IVPB ONE; SODIUM CHLORIDE 0.9% 500 ML in EMPTY BAG 1 BAG IV PRN
[2018-04-03 10:18] VITALS: BP 120/81; PULSE 96; RESP 16; TEMP 98.6
== END | disposition home or self-care (01) ==
LOC: PROCWHC3 10:01
PROVIDERS: ATTEND Psychiatry & Neurology Neurology
DX: G35 Multiple sclerosis (principal)
CPT/HCPCS: 96365; 96367; J2930; J2405

== ENCOUNTER 2018-04-21 16:02 | Inpatient (IN) | payer MEDICARE, OTHER ==
[2018-04-21] MEDS ORDERED: methylPREDNISolone SOD SUCCI 125 MG/2 ML VIAL IV STA ×2 (17:42→17:43)
[2018-04-21 17:55] LABS: Basophils # (A) 0.1 k/uL (0-0.2); Basophils % (A) 0 %; Eosinophils # (A) 0.5 k/uL (0-0.7); Eosinophils % (A) 3 %; HCT 45.6 % (34.0-46.0); HGB 14.6 gm/dL (11.4-16.0); Lymphocytes # (A) 3.3 k/uL (1.0-4.8); Lymphocytes % (A) 17 %; MCH 28.7 pg (25.0-35.0); MCHC 32.1 g/dL (31.0-37.0); MCV 89.4 fL (80.0-100.0); Mean Platelet Volume 6.8; Monocytes # (A) 0.7 k/uL (0-1.0); Monocytes % (A) 4 %; Neutrophils # (A) 14.9 k/uL (1.3-7.7); Neutrophils % (A) 76 %; Platelet Count 462 k/uL (150-450); RDW 13.7 % (11.5-15.5); WBC 19.8 k/uL (3.8-10.6)
--- NOTE | 2018-04-21 17:57 | ED ---
General Adult HPI - General Chief complaint: Extremity Injury, Lower Stated complaint: MS flare up Time Seen by Provider: 04/21/18 17:02 Source: patient, RN notes reviewed, old records reviewed Mode of arrival: wheelchair Limitations: no limitations - History of Present Illness Initial comments: Chief complaint history of present illness a 38-year-old female with known history of MS. The patient reports for the past several days to weeks been having what she is describing as an acute MS flare. Patient reports typical flares are some blurring of the right eye vision. Mild tingling and some weakness to her right hand as well as her right leg below her knee. Patient states she missed an appointment to come and have an IV steroid shots several days ago. - Related Data Home Medications Medication Instructions Recorded Confirmed Albuterol Inhaler [Ventolin Hfa 2 puff INHALATION RT-QID PRN 12/09/13 04/21/18 Inhaler] Ipratropium/Albuterol Sulfate 1 puff INHALATION RT-QID PRN 12/09/13 04/21/18 [Combivent Respimat Inhaler] Albuterol Nebulized [Ventolin 2.5 mg INHALATION RT-QID PRN 01/26/18 04/21/18 Nebulized] Ipratropium Nebulized [Atrovent 0.5 mg INHALATION RT-QID PRN 01/26/18 04/21/18 Nebulized] Dextroamphetamine/Amphetamine 30 mg PO DAILY 04/21/18 04/21/18 [Adderall Xr] Diazepam [Valium] 10 mg PO HS 04/21/18 04/21/18 Allergies Allergy/AdvReac Type Severity Reaction Status Date / Time amoxicillin [Amoxicillin] Allergy Severe Anaphylaxis, Verified 04/21/18 17:33 seizures ciprofloxacin [From Cipro] Allergy Severe Rash/Hives, Verified 04/21/18 17:33 seizures codeine phosphate Allergy Unknown Rash/Hives Verified 04/21/18 17:33 [From Tylenol-Codeine #3] cefuroxime axetil Allergy Rash/Hives Verified 04/21/18 17:33 [From Ceftin] latex Allergy Rash/Hives Verified 04/21/18 17:33 NSAIDS (Non-Steroidal Allergy Rash/Hives/Lip Verified 04/21/18 17:33 Anti-Inflamma Swelling Review of Systems ROS Statement: Those systems with pertinent positive or pertinent negative responses have been documented in the HPI. Review of systems. The patient reports she has mild blurred vision from her right eye. No chest pain or shortness of breath. Patient complains of mild sensation in weakness to her hand, right hand. Patient denies any abdominal pain no nausea no vomiting. Patient complains of some sensation of electric shocks from her knee to her feet. All systems are reviewed. Past medical problems significant for asthma, fibromyalgia, GERD, hypertension, MS, seizures associated with MS does not take any medication. Patient reports she's been 17 different medications and stopped most of them because did not like the way it made her feel. Her surgeries include gallbladder, right knee meniscus and left shoulder rotator cuff. Family history noncontributory. Patient has ALLERGIES to amoxicillin, Cipro, codeine, cefuroxime, latex, nonsteroidal anti-inflammatories. ROS Other: All systems not noted in ROS Statement are negative. Past Medical History Past Medical History: Asthma, Fibromyalgia, GERD/Reflux, Hypertension, Musculoskeletal Disorder, Neurologic Disorder, Seizure Disorder Additional Past Medical History / Comment(s): Multiple Sclerosis, migraines, DJD , interstitial cystitis, UTI, PCOS, vit D deficiency, bilateral optic neuritis with visual problems, chronic pain, numbness/tingling R side of body.tachycardia , c-diff 5-9-15, History of Any Multi-Drug Resistant Organisms: None Reported Date of last positivie culture/infection: None MDRO Source:: None Past Surgical History: Cholecystectomy, Orthopedic Surgery Additional Past Surgical History / Comment(s): Lt shoulder rotator cuff repair 06/06/14 @ [facility].- pt has since re-torn, Arthroscopic left knee 2000 & 2002. ARTHROSCOPY LT SHOULDER. Past Anesthesia/Blood Transfusion Reactions: No Reported Reaction Additional Past Anesthesia/Blood Transfusion Reaction / Comment(s): Pt has never recieved blood. Past Psychological History: No Psychological Hx Reported, Anxiety, Depression Smoking Status: Former smoker Past Alcohol Use History: None Reported Past Drug Use History: None Reported - Past Family History Mother Family Medical History: No Reported History Additional Family Medical History / Comment(s): mother is healthy Father Family Medical History: Hypertension General Exam - General Exam Comments Initial Comments: General: The patient is awake and alert, here because she states she is having an MS flare. Typical of flares in the past including blurred vision of the right eye mild tingling in slight weakness to the right hand and electric shock sensation on the right lower extremity with mild weakness to her right lower extremity. Vital signs shows temperature 98.6 pulse 102 respiratory rate 18 pulse ox 90% room air blood pressure 117/83 Eye: Pupils are equal, round and reactive to light, extra-ocular movements are intact ; there is normal conjunctiva bilaterally. No signs of icterus. Patient states mild blurred vision when she looks hard to the left. Otherwise eyes appear normal. Ears, nose, mouth and throat: There are moist mucous membranes and no oral lesions. Neck: The neck is supple, no anterior cervical lymphadenopathy Cardiovascular: There is a regular rate and rhythm. No murmur, rub or gallop is appreciated. Respiratory: Lungs are clear to auscultation, respirations are non-labored, breath sounds are equal. No wheezes, stridor, rales, or rhonchi. Gastrointestinal: Patient denies any abdominal discomfort no nausea no vomiting. Back: No acute pain no rashes, patient states that she has chronic discomfort associated with her fibromyalgia and is requesting morphine for pain. Musculoskeletal: Full function of the upper extremities. Patient states she feels somewhat weak when she opens or closes her hands but she is able touch fingertips to her thumb. Beth extend and flare all fingers. Neurovascular status appears to be intact. Patient complains of discomfort to her right lower extremity states it feels like electric shocks and some weakness. Good push pull. Only mild decrease ability. Able to hold her leg up for several seconds against gravity and then she was a down. Neurological: Neurological examination normal except for that noted on the musculoskeletal exam. Skin: Skin is warm and dry and no rashes or lesions are noted. Psychiatric: Cooperative, Limitations: no limitations Course Vital Signs 04/21/18 16:08 Temperature 98.6 F Pulse Rate 102 H Respiratory 18 Rate Blood Pressure 117/83 O2 Sat by Pulse 98 Oximetry Medical Decision Making - Medical Decision Making Medical decision making; the patient is here with what she describes as a recurrent MS flare affecting right hand and right lower leg. Labs show white count of 19.8 hemoglobin 14 hematocrit of 45. The patient has been on steroids lately. Her white count was also elevated on previous admission for the same reason, steroid use. The patient's BUN is 9 creatinine 0.7 GFR greater than 90. Potassium 4.4. Case discussed Dr. Graf, patient be admitted to her service with consultation from Dr. Davis on-call neurologist. She recommends Solu-Medrol 250 every 6 hours. This was started in the emergency room. - Lab Data Result diagrams: 04/21/18 17:41 04/21/18 17:41 Lab Results 04/21/18 04/21/18 Range/Units 17:41 17:41 WBC 19.8 H (3.8-10.6) k/uL RBC 5.10 (3.80-5.40) m/uL Hgb 14.6 (11.4-16.0) gm/dL Hct 45.6 (34.0-46.0) % MCV 89.4 (80.0-100.0) fL MCH 28.7 (25.0-35.0) pg MCHC 32.1 (31.0-37.0) g/dL RDW 13.7 (11.5-15.5) % Plt Count 462 H (150-450) k/uL Neutrophils % 76 % Lymphocytes % 17 % Monocytes % 4 % Eosinophils % 3 % Basophils % 0 % Neutrophils # 14.9 H (1.3-7.7) k/uL Lymphocytes # 3.3 (1.0-4.8) k/uL Monocytes # 0.7 (0-1.0) k/uL Eosinophils # 0.5 (0-0.7) k/uL Basophils # 0.1 (0-0.2) k/uL Sodium 140 (137-145) mmol/L Potassium 4.4 (3.5-5.1) mmol/L Chloride 107 (98-107) mmol/L Carbon Dioxide 23 (22-30) mmol/L Anion Gap 10 mmol/L BUN 9 (7-17) mg/dL Creatinine 0.70 (0.52-1.04) mg/dL Est GFR (CKD-EPI)AfAm >90 (>60 ml/min/1.73 sqM) Est GFR (CKD-EPI)NonAf >90 (>60 ml/min/1.73 sqM) Glucose 92 (74-99) mg/dL Calcium 10.2 (8.4-10.2) mg/dL Total Bilirubin 0.7 (0.2-1.3) mg/dL AST 31 (14-36) U/L ALT 27 (9-52) U/L Alkaline Phosphatase 57 (38-126) U/L Total Protein 7.6 (6.3-8.2) g/dL Albumin 4.6 (3.5-5.0) g/dL Disposition Clinical Impression: Multiple sclerosis, relapsing-remitting Disposition: ADMITTED IP TO THIS HOSP Condition: Fair Is patient prescribed a controlled substance at d/c from ED?: No Referrals: Sj Fitch MD [Primary Care Provider] - 1-2 days
[2018-04-21 18:01] LABS: ALT 27 U/L (9-52); AST 31 U/L (14-36); Albumin 4.6 g/dL (3.5-5.0); Alkaline Phosphatase 57 U/L (38-126); Anion Gap 10 mmol/L; Blood Urea Nitrogen 9 mg/dL (7-17); Calcium 10.2 mg/dL (8.4-10.2); Carbon Dioxide 23 mmol/L (22-30); Chloride 107 mmol/L (98-107); Glucose 92 mg/dL (74-99); Potassium 4.4 mmol/L (3.5-5.1); Sodium 140 mmol/L (137-145); Total Bilirubin 0.7 mg/dL (0.2-1.3); Total Protein 7.6 g/dL (6.3-8.2)
[2018-04-21] MEDS: SODIUM CHLORIDE 0.9% 1,000 ML IV SCH (18:15)
[2018-04-21] MEDS ORDERED: ONDANSETRON 4 MG/2 ML VIAL IVP STA (18:16)
[2018-04-21] MEDS: MORPHINE SULFATE 4 MG/ML SYRINGE IVP PRN (18:25)
[2018-04-21] MEDS ORDERED: NALOXONE 0.4 MG/ML 1 ML VIAL IV PRN (18:37)
[2018-04-21] MEDS ORDERED: ACETAMINOPHEN TAB 325 MG TAB PO PRN (18:37)
[2018-04-21] MEDS ORDERED: IPRATROPIUM 0.5 MG/2.5 ML NEBU INHALATION PRN (18:42)
[2018-04-21] MEDS ORDERED: IPRATROPIUM-ALBUTEROL 3 ML NEB INHALATION PRN (18:42)
[2018-04-21] MEDS ORDERED: ALBUTEROL NEBULIZED 2.5 MG/3 ML INHALATION PRN ×2 (18:42)
[2018-04-21] MEDS ORDERED: methylPREDNISolone SOD SUCCI 125 MG/2 ML VIAL IV SCH (18:45)
[2018-04-21] MEDS ORDERED: 0.9% NACL WITH KCL 20 MEQ/L 1,000 ML IV SCH (18:45)
[2018-04-21] MEDS: DIAZEPAM 5 MG TAB PO SCH (21:54)
[2018-04-21] MEDS ORDERED: HYDROmorphone 1 MG/ML 1 ML SYRINGE IVP STA (22:44)
[2018-04-22] MEDS: MORPHINE SULFATE 4 MG/ML SYRINGE IVP PRN ×2 (00:43→06:47)
[2018-04-22] MEDS: methylPREDNISolone SOD SUCCI 250 MG in SODIUM CHLORIDE 0.9% 100 ML IVPB SCH ×5 (00:43→23:19)
[2018-04-22 06:35] LABS: Appearance,Urine Cloudy (Clear); Bilirubin,Urine Negative (Negative); Blood,Urine Moderate (Negative); Color,Urine Yellow; Glucose,Urine (UA) 4+ (Negative); Ketones,Urine 1+ (Negative); Leukocyte Esterase,Urine Small (Negative); Mucus,Urine Occasional /hpf; Nitrite,Urine Negative (Negative); PH, Urine 5.5 (5.0-8.0); Protein,Urine Trace (Negative); RBC,Urine 2 /hpf (0-5); Specific Gravity,Urine 1.024 (1.001-1.035); Squamous Epithelial Cell,Urine 10 /hpf (0-4); Urobilinogen,Urine <2.0 mg/dL (<2.0); WBC,Urine 1 /hpf (0-5)
[2018-04-22 07:05] LABS: Glucose,Whole Blood 192 mg/dL (75-99)
[2018-04-22] MEDS: ONDANSETRON 4 MG/2 ML VIAL IVP PRN ×3 (08:00→20:11)
[2018-04-22] MEDS: AMPHETAMINE PO SCH (09:38)
[2018-04-22] MEDS: DEXTROAMPHETAMINE PO SCH (09:38)
[2018-04-22] MEDS ORDERED: HYDROmorphone 1 MG/ML 1 ML SYRINGE IVP PRN (09:48)
[2018-04-22] MEDS: HYDROmorphone 1 MG/ML 1 ML SYRINGE IVP PRN ×4 (11:26→21:15)
[2018-04-22 11:42] LABS: Glucose,Whole Blood 201 mg/dL (75-99)
[2018-04-22] MEDS: HYDROcodone/APAP 7.5-325MG 1 EACH TAB PO PRN ×2 (12:51→19:10)
[2018-04-22] MEDS: INSULIN ASPART 100 UNIT/ML 1 ML 10 ML VIAL SQ SCH ×3 (12:52→21:20)
[2018-04-22] MEDS: HEPARIN SODIUM,PORCINE 5,000 UNIT/ML 1 ML VIAL SQ SCH ×5 (13:19→23:23)
[2018-04-22] MEDS: SODIUM CHLORIDE 0.9% 1,000 ML IV SCH (13:22)
--- NOTE | 2018-04-22 13:25 | HP ---
HISTORY AND PHYSICAL CHIEF COMPLAINTS: Pain, weakness and numbness of both legs. HISTORY OF PRESENT ILLNESS: This 38-year-old woman with a past medical history of multiple sclerosis, asthma , fibromyalgia, GERD, hypertension, DJD, history of seizure disorder, history of cholecystectomy being for Dr. Fitch in the outpatient setting was complaining of weakness and numbness of both legs for the past several days. Because of increasing difficulty, the patient came to [facility] and admitted for further evaluation and treatment. The patient was suspected to have multiple sclerosis acute exacerbation also had blurring of eye also. Patient had previous optic neuritis as well. There is no history of any fever or rigors. No history of headache, loss of consciousness or seizures. The patient also complaining of lightening sensation or the legs also. PAST MEDICAL HISTORY: Asthma, fibromyalgia, GERD, hypertension, DJD, history of seizure disorder, history of cholecystectomy, multiple sclerosis, anxiety, depression. MEDICATIONS: Mediations prior to admission include home medications are: 1. Combivent 1 puff q.i.d. p.r.n. 2. Atrovent 0.5 q.i.d. p.r.n. 3. Valium 10 mg at bedtime. 4. Adderall XR 30 mg p.o. daily. 5. Ventolin 2.5 q.i.d. p.r.n. and 2 puffs q.i.d. p.r.n. ALLERGIES: Allergies are AMOXICILLIN, CIPROFLOXACIN, CODEINE, CEFUROXIME, LATEX, NSAIDS. FAMILY HISTORY: No history of heart disease and strokes in the family. SOCIAL HISTORY: Previous history of smoking. No history of current smoking or alcohol intake. REVIEW OF SYSTEMS: ENT: No diminished hearing or diminished vision. CARDIOVASCULAR SYSTEM: No angina or palpitations. RESPIRATORY SYSTEM: As mentioned earlier. GI: No nausea. : No dysuria. NERVOUS SYSTEM: As mentioned earlier. ALLERGY/IMMUNOLOGY: As mentioned earlier. MUSCULOSKELETAL: As mentioned earlier. HEMATOLOGY/ONCOLOGY: No history of anemia. ENDOCRINE: No history of diabetes or hypothyroidism. CONSTITUTIONAL: As mentioned earlier. DERMATOLOGY: Negative. RHEUMATOLOGY: Negative. PSYCHIATRY: As mentioned earlier. PHYSICAL EXAMINATION: The patient is alert and oriented x3. Pulse 79, blood pressure 121/74, respiration 18, temperature 96.6, pulse ox 97% on room air. HEENT: Conjunctivae normal. Oral mucosa moist. Neck is no jugular venous distention. No carotid bruit. No lymph node enlargement. CARDIOVASCULAR: S1 and S2 muffled. RESPIRATORY: Breath sounds diminished at the bases. A few scattered rhonchi. No crackles. ABDOMEN: Soft, obese, nontender. LEGS: No edema, no swelling. NERVOUS SYSTEM: Higher functions as mentioned earlier. Moves all 4 limbs, otherwise, diffuse weakness especially in the lower limbs. Has some gait dysfunction also present. LYMPHATICS: No lymphadenopathy of the neck, axillae or groin. SKIN: No ulcer, rash or bleeding. JOINTS: No active deforming arthropathy. LABS: Labs are at this time shows WBC 19.8 and platelets of 462. Glucose 192. UA noted ASSESSMENT: 1. Weakness and numbness in both legs, possibly multiple sclerosis acute exacerbation. 2. Increased WBC, possibly reactive. 3. Asthma. 4. Fibromyalgia. 5. Chronic pain syndrome. 6. Gastroesophageal reflux disease. 7. Hypertension. 8. Degenerative joint disease. 9. History of seizure disorder. 10.History of migraines. 11.History of degenerative joint disease. 12.History of interstitial cystitis. 13.History of vitamin D deficiency. 14.History of bilateral optic neuritis. 15.History of cholecystectomy. 16.History of anxiety, depression. 17.Remote history of nicotine dependence. RECOMMENDATIONS AND DISCUSSION: This 38-year-old woman who presented with multiple complex medical issues, we will monitor the patient closely. Continue the current medications. Continue symptomatic treatment. Will initiate IV steroids, monitor blood sugars closely. Resume the home medications. Pain management. See orders for further details. Prognosis guarded because of multiple complex medical issues. Further recommendations to follow. PT, OT evaluation. MMODL / IJN: [id number] / EMIGDIO
[2018-04-22] MEDS: GABAPENTIN 100 MG CAP PO SCH ×2 (15:53→19:47)
[2018-04-22 16:48] LABS: Glucose,Whole Blood 194 mg/dL (75-99)
[2018-04-22] MEDS: DIAZEPAM 5 MG TAB PO SCH (20:11)
--- NOTE | 2018-04-22 20:34 | P.CNNES ---
History of Present Illness Consult date: 04/22/18 History of Present Illness: The patient is a 38-year-old woman history of MS. She was diagnosed [address] Monsalve. She states she currently sees Dr. Monica Cobb. She states that she has been onTekfidera but has not been tolerating it and will be switched to a Ocrevus. She states that last Friday she developed symptoms of pain in her legs. Over the weekend had continued. On Friday she called her and adjust and he had scheduled her for outpatient Solu-Medrol treatment. She states that yesterday she could not wait any longer because of the pain in her legs and she came to the emergency room. She also describes some numbness and tingling in the legs and some visual blurring in the right eye. Next Patient states that this is her typical MS flareup. She states she tolerates IV steroids. She reports that she is feeling somewhat better but still has some pain in the legs. She has other medical conditions including asthma fibromyalgia hypertension and seizures. Review of Systems Constitutional: Denies chills, Denies fever Eyes: denies blurred vision, denies pain Ears, nose, mouth and throat: Reports as per HPI Cardiovascular: Denies chest pain, Denies shortness of breath Respiratory: Denies cough Gastrointestinal: Denies abdominal pain, Denies diarrhea, Denies nausea, Denies vomiting Integumentary: Denies pruritus, Denies rash Neurological: Reports as per HPI Psychiatric: Denies anxiety, Denies depression Past Medical History Past Medical History: Asthma, Fibromyalgia, GERD/Reflux, Hypertension, Musculoskeletal Disorder, Neurologic Disorder, Seizure Disorder Additional Past Medical History / Comment(s): Multiple Sclerosis, migraines, DJD , interstitial cystitis, UTI, PCOS, vit D deficiency, bilateral optic neuritis with visual problems, chronic pain, numbness/tingling R side of body.tachycardia , c-diff 5-9-15, History of Any Multi-Drug Resistant Organisms: None Reported Date of last positivie culture/infection: None MDRO Source:: None Past Surgical History: Cholecystectomy, Orthopedic Surgery Additional Past Surgical History / Comment(s): Lt shoulder rotator cuff repair 06/06/14 @ [facility] pt has since re-torn, Arthroscopic left knee 2000 & 2002. ARTHROSCOPY LT SHOULDER. Past Anesthesia/Blood Transfusion Reactions: No Reported Reaction Additional Past Anesthesia/Blood Transfusion Reaction / Comment(s): Pt has never recieved blood. Past Psychological History: No Psychological Hx Reported, Anxiety, Depression Additional Psychological History / Comment(s): Pt lives with her and their daughter. She is independent. She has MS and when she has a flare up she will use a walker or wheelchair. She drives a car. Smoking Status: Former smoker Past Alcohol Use History: None Reported Additional Past Alcohol Use History / Comment(s): STARTED SMOKING AGE 17 and quit in 2016 but is using vapor cigarette somedays. Patient denies any medical marijuana, marijuana, street drug use. She denies any alcohol use or abuse. Patient is and lives with her and one child. No recent travel. Patient is on disability. Past Drug Use History: None Reported - Past Family History Mother Family Medical History: No Reported History Additional Family Medical History / Comment(s): mother is healthy Father Family Medical History: Hypertension Medications and Allergies Home Medications Medication Instructions Recorded Confirmed Type Albuterol Inhaler [Ventolin Hfa 2 puff INHALATION RT-QID PRN 12/09/13 04/21/18 History Inhaler] Ipratropium/Albuterol Sulfate 1 puff INHALATION RT-QID PRN 12/09/13 04/21/18 History [Combivent Respimat Inhaler] Albuterol Nebulized [Ventolin 2.5 mg INHALATION RT-QID PRN 01/26/18 04/21/18 History Nebulized] Ipratropium Nebulized [Atrovent 0.5 mg INHALATION RT-QID PRN 01/26/18 04/21/18 History Nebulized] Dextroamphetamine/Amphetamine 30 mg PO DAILY 04/21/18 04/21/18 History [Adderall Xr] Diazepam [Valium] 10 mg PO HS 04/21/18 04/21/18 History Allergies Allergy/AdvReac Type Severity Reaction Status Date / Time amoxicillin [Amoxicillin] Allergy Severe Anaphylaxis, Verified 04/21/18 17:33 seizures ciprofloxacin [From Cipro] Allergy Severe Rash/Hives, Verified 04/21/18 17:33 seizures codeine phosphate Allergy Unknown Rash/Hives Verified 04/21/18 17:33 [From Tylenol-Codeine #3] cefuroxime axetil Allergy Rash/Hives Verified 04/21/18 17:33 [From Ceftin] latex Allergy Rash/Hives Verified 04/21/18 17:33 NSAIDS (Non-Steroidal Allergy Rash/Hives/Lip Verified 04/21/18 17:33 Anti-Inflamma Swelling Physical Examination - Vital Signs Vital Signs: Vital Signs Temp Pulse Pulse Resp BP Pulse Ox 04/22/18 16:52 96.7 F L 90 97 18 04/22/18 16:00 79 86 16 04/22/18 14:30 97.7 F 86 16 142/86 97 04/22/18 06:13 96.6 F L 79 18 121/74 97 04/21/18 22:51 98.1 F 97 18 156/80 93 L Intake and Output 04/22/18 04/22/18 04/22/18 06:59 14:59 22:59 Intake Total 600 Balance 600 Intake: Oral 600 Other: Voiding Method Bedside Commode # Voids 2 2 3 - Constitutional General appearance: obese - EENT EENT: PERRL, hearing intact, vision intact - Respiratory Respiratory: lungs clear - Cardiovascular Cardiovascular: regular rate, normal S1 - Neurologic Cranial nerve examination: PERRL, EOMI, VFF, V1/V2/V3 grossly intact, face symmetric, tongue midline Speech examination: intact Sensorimotor examination: intact Detailed motor examination: grossly full strength in all extremities Reflexes: 2+: knee - Psychiatric Psychiatric: mood/affect appropriate Results - Laboratory Findings CBC and BMP: 04/21/18 17:41 04/21/18 17:41 Abnormal Lab Findings: Abnormal Labs 04/21/18 04/22/18 04/22/18 17:41 05:25 07:01 WBC 19.8 H Plt Count 462 H Neutrophils # 14.9 H POC Glucose (mg/dL) 192 H Urine Appearance Cloudy H Urine Protein Trace H Urine Glucose (UA) 4+ H Urine Ketones 1+ H Urine Blood Moderate H Ur Leukocyte Esterase Small H Ur Squamous Epith Cells 10 H Urine Mucus Occasional H 04/22/18 04/22/18 11:38 16:46 WBC Plt Count Neutrophils # POC Glucose (mg/dL) 201 H 194 H Urine Appearance Urine Protein Urine Glucose (UA) Urine Ketones Urine Blood Ur Leukocyte Esterase Ur Squamous Epith Cells Urine Mucus Assessment and Plan (1) Multiple sclerosis, relapsing-remitting Current Visit: Yes Status: Acute SNOMED Code(s): 462429275 Plan: The patient is a 38-year-old woman with multiple sclerosis. She has had a flareup of symptoms since last Friday. She has had some tingling in the legs and sharp pains in the legs as well as some blurry vision in the right eye. Presented to the emergency room with these symptoms. She has been started on IV Solu-Medrol. Her symptoms have improved. Recommend continue treatment with IV Solu-Medrol. Also recommend PT OT.
[2018-04-22 21:16] LABS: Glucose,Whole Blood 203 mg/dL (75-99)
[2018-04-22] MEDS: TEMAZEPAM 30 MG CAP PO PRN (21:16)
[2018-04-22] MEDS: NICOTINE 21MG/24HR PATCH TRANSDERM SCH (21:16)
[2018-04-22] MEDS: IPRATROPIUM-ALBUTEROL 3 ML NEB INHALATION PRN (21:41)
[2018-04-22 21:42] LABS: Hemoglobin A1C 5.5 % (4.0-6.0)
[2018-04-23] MEDS: HYDROmorphone 1 MG/ML 1 ML SYRINGE IVP PRN ×6 (01:14→21:18)
[2018-04-23] MEDS: HYDROcodone/APAP 7.5-325MG 1 EACH TAB PO PRN ×4 (01:46→19:51)
[2018-04-23] MEDS: ONDANSETRON 4 MG/2 ML VIAL IVP PRN ×4 (01:46→19:51)
[2018-04-23] MEDS: methylPREDNISolone SOD SUCCI 250 MG in SODIUM CHLORIDE 0.9% 100 ML IVPB SCH ×4 (05:26→23:15)
[2018-04-23 07:30] LABS: Glucose,Whole Blood 144 mg/dL (75-99)
[2018-04-23] MEDS: AMPHETAMINE PO SCH (08:27)
[2018-04-23] MEDS: DEXTROAMPHETAMINE PO SCH (08:27)
[2018-04-23] MEDS: INSULIN ASPART 100 UNIT/ML 1 ML 10 ML VIAL SQ SCH ×4 (08:29→21:18)
[2018-04-23] MEDS: GABAPENTIN 100 MG CAP PO SCH ×3 (08:30→19:48)
[2018-04-23] MEDS: NICOTINE 21MG/24HR PATCH TRANSDERM SCH (08:30)
[2018-04-23 09:34] LABS: Basophils % (A) 0 %; Eosinophils # (A) 0.2 k/uL (0-0.7); Eosinophils % (A) 0 %; HCT 44.6 % (34.0-46.0); HGB 14.2 gm/dL (11.4-16.0); Lymphocytes # (A) 1.4 k/uL (1.0-4.8); Lymphocytes % (A) 3 %; MCH 28.9 pg (25.0-35.0); MCHC 31.9 g/dL (31.0-37.0); MCV 90.8 fL (80.0-100.0); Mean Platelet Volume 7.6; Monocytes # (A) 0.8 k/uL (0-1.0); Monocytes % (A) 2 %; Neutrophils # (A) 38.6 k/uL (1.3-7.7); Neutrophils % (A) 94 %; Platelet Count 419 k/uL (150-450); RBC 4.91 m/uL (3.80-5.40); RDW 13.7 % (11.5-15.5); WBC 40.9 k/uL (3.8-10.6)
[2018-04-23 09:55] LABS: Anion Gap 13 mmol/L; Blood Urea Nitrogen 14 mg/dL (7-17); Calcium 9.9 mg/dL (8.4-10.2); Carbon Dioxide 21 mmol/L (22-30); Chloride 105 mmol/L (98-107); Glucose 203 mg/dL (74-99); Potassium 4.6 mmol/L (3.5-5.1); Sodium 139 mmol/L (137-145)
[2018-04-23 11:44] LABS: Glucose,Whole Blood 163 mg/dL (75-99)
[2018-04-23] MEDS: SODIUM CHLORIDE 0.9% 1,000 ML IV SCH (13:12)
[2018-04-23] MEDS: IPRATROPIUM-ALBUTEROL 3 ML NEB INHALATION PRN ×2 (13:29→21:33)
[2018-04-23] MEDS: HEPARIN SODIUM,PORCINE 5,000 UNIT/ML 1 ML VIAL SQ SCH ×2 (14:52→23:16)
[2018-04-23 16:55] LABS: Glucose,Whole Blood 202 mg/dL (75-99)
[2018-04-23] MEDS: DIAZEPAM 5 MG TAB PO SCH (19:51)
[2018-04-23 20:58] LABS: Glucose,Whole Blood 205 mg/dL (75-99)
[2018-04-23] MEDS: TEMAZEPAM 30 MG CAP PO PRN (21:18)
--- NOTE | 2018-04-23 22:22 | P.PN ---
Subjective Progress Note Date: 04/23/18 The patient is a 38-year-old woman with multiple sclerosis. Patient has been admitted to the hospital for MS exacerbation. His receive day 2 of IV steroids. States she is doing only a little better and she still complains of tingling in the feet. He is getting up and walking to the bathroom without assistance. Did have OT therapy today. She reports tolerating the steroids except for insomnia. The patient also has continued to mild blurriness in the right eye. Objective - Vital Signs Vital signs: Vital Signs Temp 98.4 F 04/23/18 15:00 Pulse 70 04/23/18 21:44 Resp 16 04/23/18 19:38 BP 141/94 04/23/18 15:00 Pulse Ox 94 L 04/23/18 15:00 Intake & Output 04/23/18 04/23/18 04/24/18 06:59 18:59 06:59 Intake Total 640 100 Balance 640 100 Weight 104.326 kg Intake: IV 100 methylPREDNISolone SOD 100 SUCCI 250 mg In Sodium Chloride 0.9% 100 ml @ 100 mls/hr IVPB Q6HR [facility] Rx#:[id number] Intake, IV Titration 240 Amount Sodium Chloride 0.9% 1, 140 000 ml @ 20 mls/hr IV . Q24H [facility] Rx#:[id number] methylPREDNISolone SOD 100 SUCCI 250 mg In Sodium Chloride 0.9% 100 ml @ 100 mls/hr IVPB Q6HR [facility] Rx#:[id number] Oral 400 Other: Voiding Method Bedside Commode Toilet # Voids 1 2 - Constitutional General appearance: Present: obese - EENT Eyes: Present: EOMI, PERRLA ENT: Present: hearing grossly normal - Respiratory Respiratory: bilateral: CTA - Cardiovascular Rhythm: regular - Neurologic Neurologic: Present: CNII-XII intact - Musculoskeletal Musculoskeletal: Present: strength equal bilaterally - Psychiatric Psychiatric: Present: A&O x's 3 - Labs CBC & Chem 7: 04/23/18 08:48 04/23/18 08:48 Labs: Abnormal Lab Results - Last 24 Hours (Table) 04/23/18 04/23/18 04/23/18 Range/Units 07:23 08:48 08:48 WBC 40.9 H (3.8-10.6) k/uL Neutrophils # 38.6 H (1.3-7.7) k/uL Carbon Dioxide 21 L (22-30) mmol/L Glucose 203 H (74-99) mg/dL POC Glucose (mg/dL) 144 H (75-99) mg/dL 04/23/18 04/23/18 04/23/18 Range/Units 11:17 16:51 20:42 WBC (3.8-10.6) k/uL Neutrophils # (1.3-7.7) k/uL Carbon Dioxide (22-30) mmol/L Glucose (74-99) mg/dL POC Glucose (mg/dL) 163 H 202 H 205 H (75-99) mg/dL Assessment and Plan (1) Multiple sclerosis, relapsing-remitting Current Visit: Yes Status: Acute SNOMED Code(s): 897521439 Plan: The patient is a 38-year-old woman with multiple sclerosis. She has had a flareup of symptoms since last Friday. She has had some tingling in the legs and sharp pains in the legs as well as some blurry vision in the right eye. Patient is doing somewhat better today. She continues to complain of tingling pain in the legs. She is walking and she has no new symptoms. She is tolerating IV steroids. Recommend continue third day of IV steroids and possible discharge if patient's symptoms improved. She will follow up with her neurologist Dr. Olivares and she is also follow up with ophthalmology.
[2018-04-24] MEDS: IPRATROPIUM-ALBUTEROL 3 ML NEB INHALATION PRN ×3 (00:01→16:01)
[2018-04-24] MEDS: HYDROmorphone 1 MG/ML 1 ML SYRINGE IVP PRN ×6 (01:22→16:46)
[2018-04-24] MEDS: ONDANSETRON 4 MG/2 ML VIAL IVP PRN ×3 (01:22→14:01)
[2018-04-24] MEDS: HYDROcodone/APAP 7.5-325MG 1 EACH TAB PO PRN ×3 (01:48→14:01)
[2018-04-24] MEDS: methylPREDNISolone SOD SUCCI 250 MG in SODIUM CHLORIDE 0.9% 100 ML IVPB SCH ×2 (05:31→11:36)
[2018-04-24 07:15] LABS: Glucose,Whole Blood 131 mg/dL (75-99)
[2018-04-24] MEDS: HEPARIN SODIUM,PORCINE 5,000 UNIT/ML 1 ML VIAL SQ SCH ×2 (07:55→16:46)
[2018-04-24] MEDS: GABAPENTIN 100 MG CAP PO SCH ×2 (07:55→16:46)
[2018-04-24] MEDS: DEXTROAMPHETAMINE PO SCH (07:55)
[2018-04-24] MEDS: AMPHETAMINE PO SCH (07:55)
[2018-04-24] MEDS: INSULIN ASPART 100 UNIT/ML 1 ML 10 ML VIAL SQ SCH ×2 (07:58→11:37)
[2018-04-24] MEDS: NICOTINE 21MG/24HR PATCH TRANSDERM SCH (07:58)
[2018-04-24 08:33] LABS: Basophils % (A) 0 %; Eosinophils # (A) 0.1 k/uL (0-0.7); Eosinophils % (A) 0 %; HCT 42.4 % (34.0-46.0); HGB 13.1 gm/dL (11.4-16.0); Lymphocytes # (A) 1.6 k/uL (1.0-4.8); Lymphocytes % (A) 5 %; MCH 28.3 pg (25.0-35.0); MCHC 30.8 g/dL (31.0-37.0); MCV 91.7 fL (80.0-100.0); Mean Platelet Volume 7.5; Monocytes # (A) 0.5 k/uL (0-1.0); Monocytes % (A) 2 %; Neutrophils # (A) 30.2 k/uL (1.3-7.7); Neutrophils % (A) 93 %; Platelet Count 408 k/uL (150-450); RBC 4.62 m/uL (3.80-5.40); RDW 13.6 % (11.5-15.5); WBC 32.4 k/uL (3.8-10.6)
[2018-04-24 08:45] LABS: Anion Gap 13 mmol/L; Blood Urea Nitrogen 15 mg/dL (7-17); Calcium 9.7 mg/dL (8.4-10.2); Carbon Dioxide 25 mmol/L (22-30); Chloride 103 mmol/L (98-107); Glucose 107 mg/dL (74-99); Potassium 4.4 mmol/L (3.5-5.1); Sodium 141 mmol/L (137-145)
[2018-04-24 10:53] VITALS: RESP 16
[2018-04-24 11:20] LABS: Glucose,Whole Blood 207 mg/dL (75-99)
[2018-04-24 13:56] VITALS: BP 154/96; TEMP 99
[2018-04-24] MEDS: SODIUM CHLORIDE 0.9% 1,000 ML IV SCH (15:05)
[2018-04-24 16:15] VITALS: PULSE 93
--- NOTE | 2018-04-24 18:56 | P.PN ---
Subjective Progress Note Date: 04/23/18 Progress note being dictated for Dr. Soto. Interval history: This is a 38-year-old female admitted with MS exacerbation. Evaluated by neurology, continues on high-dose IV steroids. Blood sugars controlled. Significant clinical improvement. Ambulating in the hallway, tolerating exertion well. Denies chest pain, palpitations or shortness of breath. Denies lightheadedness or dizziness. Reports improving right eye blurriness. Objective - Vital Signs Vital signs: Vital Signs Temp 98.4 F 04/23/18 15:00 Pulse 109 H 04/23/18 15:00 Resp 16 04/23/18 15:00 BP 141/94 04/23/18 15:00 Pulse Ox 94 L 04/23/18 15:00 Intake & Output 04/22/18 04/23/18 04/23/18 18:59 06:59 18:59 Intake Total 600 640 100 Balance 600 640 100 Intake: IV 100 methylPREDNISolone SOD 100 SUCCI 250 mg In Sodium Chloride 0.9% 100 ml @ 100 mls/hr IVPB Q6HR [facility] Rx#:[id number] Intake, IV Titration 240 Amount Sodium Chloride 0.9% 1, 140 000 ml @ 20 mls/hr IV . Q24H [facility] Rx#:[id number] methylPREDNISolone SOD 100 SUCCI 250 mg In Sodium Chloride 0.9% 100 ml @ 100 mls/hr IVPB Q6HR [facility] Rx#:[id number] Oral 600 400 Other: Voiding Method Toilet Bedside Commode # Voids 3 1 2 - Exam PHYSICAL EXAM: VITAL SIGNS: As above GENERAL: Sitting up in bed, no acute distress HEENT: Conjunctivae normal. eyes normal. Oral mucosa moist NECK: No JVD. No thyroid enlargement. No LNs CARDIOVASCULAR: S1, S2 muffled. No murmur RESPIRATION: Breath sounds diminished in the bases. No rhonchi or crackles. ABDOMEN: Soft, nontender . No guarding. no masses palpable. Bowel sounds heard. LEGS: No edema. no swelling PSYCHIATRY: Alert and oriented -3, mood and affect normal. NERVOUS SYSTEM: Cranial N 2-12 grossly normal. Moves all 4 limbs. Diffuse weakness No focal deficits. Skin: no ulcer no rash Joints: No active swelling. No inflammation. Lymphatic system. No LN neck axilla or groin. - Labs CBC & Chem 7: 04/24/18 07:23 04/24/18 07:23 Labs: Abnormal Lab Results - Last 24 Hours (Table) 04/22/18 04/23/18 04/23/18 Range/Units 21:01 07:23 08:48 WBC 40.9 H (3.8-10.6) k/uL Neutrophils # 38.6 H (1.3-7.7) k/uL Carbon Dioxide (22-30) mmol/L Glucose (74-99) mg/dL POC Glucose (mg/dL) 203 H 144 H (75-99) mg/dL 04/23/18 04/23/18 04/23/18 Range/Units 08:48 11:17 16:51 WBC (3.8-10.6) k/uL Neutrophils # (1.3-7.7) k/uL Carbon Dioxide 21 L (22-30) mmol/L Glucose 203 H (74-99) mg/dL POC Glucose (mg/dL) 163 H 202 H (75-99) mg/dL Assessment and Plan Assessment: 1. Weakness, numbness bilateral legs, possible MS exacerbation 2. Leukocytosis, possibly reactive 3. Fibromyalgia 4. Chronic pain syndrome 5. History of seizure disorder Plan: Continue on current medication regime ,monitoring and symptomatic treatment. Maintain steroids.PT/OT. Discharge planning in progress for tomorrow pending neurology's clearance. Further recommendations to follow. The impression and plan of care has been dictated as directed. : I performed a history and examination of this patient, discussed the same with the dictator. I agree with the dictator's note ,documented as a scribe. Any additional findings or plans will be noted.
--- NOTE | 2018-04-24 21:09 | DS ---
DISCHARGE SUMMARY DATE OF SERVICE: 04/24/2018 FINAL DIAGNOSES: 1. Weakness and numbness of both legs, possibly multiple sclerosis, acute exacerbation. 2. Increased white count, possibly reactive. 3. Asthma. 4. Fibromyalgia. 5. Chronic pain syndrome. 6. Gastroesophageal reflux disease. 7. Hypertension. 8. Degenerative joint disease. 9. Seizure disorder. 10.History of migraines. 11.History of degenerative joint disease. 12.History of interstitial cystitis. 13.History of vitamin D deficiency. 14.History of bilateral optic neuritis. 15.History of cholecystectomy. 16.History of anxiety, depression. 17.Remote history of nicotine dependence. DISCHARGE DISPOSITION: The patient will be discharged in stable condition with guarded prognosis. HISTORY OF PRESENT ILLNESS: This 38-year-old woman with a past medical history of multiple medical problems, being followed by Dr. Fitch in the outpatient setting, was admitted with multiple sclerosis, acute exacerbation. The patient was treated with IV steroids. Patient improved significantly. On exam, vital signs are stable. CARDIOVASCULAR SYSTEM: S1, S2 muffled. ABDOMEN: Soft. NERVOUS SYSTEM: Mild diffuse weakness. The patient will be discharged in stable condition with guarded prognosis after clearance by Neurology. DISCHARGE ADVICE AND MEDICATIONS: 1. I recommend that the patient follow up with the patient's neurologist closely. 2. Diet is cardiac. 3. Activity limited until followup. 4. Follow up with Dr. Dietrich in 2-3 days. 5. Follow up with the patient's own neurologist, Dr. Casarez, in one week. 6. Albuterol p.r.n. 7. Albuterol nebulized 2.5 q.i.d. p.r.n. 8. Dextroamphetamine 30 mg p.o. daily. 9. Valium 10 mg at bedtime. 10.Atrovent 0.5 q.i.d. p.r.n. 11.DuoNeb q.i.d. and p.r.n. 12.Neurontin 100 mg p.o. t.i.d. 13.Habitrol 21 daily. Once again, the patient will be discharged in stable condition with guarded prognosis. MMODL / IJN: [id number] /
== END 2018-04-24 17:17 | disposition home health service (06) | DRG 60 ==
LOC: EC 16:02 → 4MS4W 18:37 → INTOOBSV 18:37 → 4MS4W 18:59 → OBSVTOIN 04-23 14:05
PROVIDERS: ADMIT Internal Medicine; ATTEND Internal Medicine
DX: G35 Multiple sclerosis (principal); E28.2 Polycystic ovarian syndrome; G40.909 Epilepsy, unspecified, not intractable, without status epilepticus; G47.00 Insomnia, unspecified; G89.4 Chronic pain syndrome; I10 Essential (primary) hypertension; J45.909 Unspecified asthma, uncomplicated; K21.9 Gastro-esophageal reflux disease without esophagitis; M19.90 Unspecified osteoarthritis, unspecified site; M79.7 Fibromyalgia; E55.9 Vitamin D deficiency, unspecified; F32.9 Major depressive disorder, single episode, unspecified; F41.9 Anxiety disorder, unspecified; G43.909 Migraine, unspecified, not intractable, without status migrainosus; D72.829 Elevated white blood cell count, unspecified; T38.0X5A Adverse effect of glucocorticoids and synthetic analogues, initial encounter; Z90.49 Acquired absence of other specified parts of digestive tract; Z87.891 Personal history of nicotine dependence; Z79.899 Other long term (current) drug therapy; Z88.0 Allergy status to penicillin; Z88.6 Allergy status to analgesic agent; Z88.1 Allergy status to other antibiotic agents; Z91.040 Latex allergy status; Z82.49 Family history of ischemic heart disease and other diseases of the circulatory system; Y92.239 Unspecified place in hospital as the place of occurrence of the external cause
CPT/HCPCS: 36415; 80048; 80053; 81001; 83036; 85025; 94640; 96374; 96375; 99284

== ENCOUNTER 2018-04-29 15:41 | Observation (INO) | payer MEDICARE, OTHER ==
[2018-04-29] MEDS ORDERED: KETOROLAC 30 MG/ML 1 ML VIAL IVP STA (18:37)
[2018-04-29] MEDS ORDERED: METOCLOPRAMIDE 5 MG/ML 2 ML VIAL IVP STA (18:37)
[2018-04-29] MEDS ORDERED: diphenhydrAMINE 50 MG/ML 1 ML VIAL IVP STA (18:37)
[2018-04-29] MEDS ORDERED: SODIUM CHLORIDE 0.9% 1,000 ML IV STA (18:37)
[2018-04-29] MEDS ORDERED: methylPREDNISolone SOD SUCCI 250 MG in SODIUM CHLORIDE 0.9% 100 ML IVPB STA (18:38)
--- NOTE | 2018-04-29 19:20 | ED ---
Headache HPI - General Chief Complaint: Headache Stated Complaint: weakness, headache, rt leg injury, no feeling legs Time Seen by Provider: 04/29/18 17:47 Source: RN notes reviewed, old records reviewed Mode of arrival: wheelchair Limitations: no limitations - History of Present Illness Initial Comments: 38-year-old female presents emergency department today with chief plain of MS exacerbation. Patient reports that she went for a run yesterday after being discharged from hospital. She reports that they should have significant weakness in her bilateral extremities. She reports it's typical for her MS exacerbations. She also complains of some visual blurriness over bilateral eyes on the peripheral field of vision. Patient states that she was admitted to the hospital for the last week and discharged. Patient complains of some discomfort going from her head Dr. neck down her entire body. Patient complains of nausea as well. - Related Data Home Medications Medication Instructions Recorded Confirmed Albuterol Inhaler [Ventolin Hfa 2 puff INHALATION RT-QID PRN 12/09/13 04/29/18 Inhaler] Ipratropium/Albuterol Sulfate 1 puff INHALATION RT-QID PRN 12/09/13 04/29/18 [Combivent Respimat Inhaler] Albuterol Nebulized [Ventolin 2.5 mg INHALATION RT-QID PRN 01/26/18 04/29/18 Nebulized] Ipratropium Nebulized [Atrovent 0.5 mg INHALATION RT-QID PRN 01/26/18 04/29/18 Nebulized] Diazepam [Valium] 10 mg PO HS 04/21/18 04/29/18 Ondansetron Odt [Zofran ODT] 4 mg PO DAILY PRN 04/29/18 04/29/18 Allergies Allergy/AdvReac Type Severity Reaction Status Date / Time amoxicillin [Amoxicillin] Allergy Severe Anaphylaxis, Verified 04/29/18 19:16 seizures ciprofloxacin [From Cipro] Allergy Severe Rash/Hives, Verified 04/29/18 19:16 seizures codeine phosphate Allergy Unknown Rash/Hives Verified 04/29/18 19:16 [From Tylenol-Codeine #3] cefuroxime axetil Allergy Rash/Hives Verified 04/29/18 19:16 [From Ceftin] latex Allergy Rash/Hives Verified 04/29/18 19:16 NSAIDS (Non-Steroidal Allergy Rash/Hives/Lip Verified 04/29/18 19:16 Anti-Inflamma Swelling Review of Systems ROS Statement: Those systems with pertinent positive or pertinent negative responses have been documented in the HPI. ROS Other: All systems not noted in ROS Statement are negative. Past Medical History Past Medical History: Asthma, Fibromyalgia, GERD/Reflux, Hypertension, Musculoskeletal Disorder, Neurologic Disorder, Seizure Disorder Additional Past Medical History / Comment(s): Multiple Sclerosis, migraines, DJD , interstitial cystitis, UTI, PCOS, vit D deficiency, bilateral optic neuritis with visual problems, chronic pain, numbness/tingling R side of body.tachycardia , c-diff 5-9-15, History of Any Multi-Drug Resistant Organisms: None Reported Date of last positivie culture/infection: None MDRO Source:: None Past Surgical History: Cholecystectomy, Orthopedic Surgery Additional Past Surgical History / Comment(s): Lt shoulder rotator cuff repair 06/06/14 @ [facility].- pt has since re-torn, Arthroscopic left knee 2000 & 2002. ARTHROSCOPY LT SHOULDER. Past Anesthesia/Blood Transfusion Reactions: No Reported Reaction Additional Past Anesthesia/Blood Transfusion Reaction / Comment(s): Pt has never recieved blood. Past Psychological History: No Psychological Hx Reported, Anxiety, Depression Smoking Status: Former smoker Past Alcohol Use History: None Reported Past Drug Use History: None Reported - Past Family History Mother Family Medical History: No Reported History Additional Family Medical History / Comment(s): mother is healthy Father Family Medical History: Hypertension General Exam - General Exam Comments Initial Comments: This is a 38-year-old female. Alert and oriented. No significant distress. Limitations: no limitations General appearance: alert, in no apparent distress Head exam: Present: atraumatic, normocephalic, normal inspection Eye exam: Present: normal appearance, PERRL, EOMI. Absent: scleral icterus, conjunctival injection, periorbital swelling ENT exam: Present: normal exam, mucous membranes moist Neck exam: Present: normal inspection. Absent: tenderness, meningismus, lymphadenopathy Respiratory exam: Present: normal lung sounds bilaterally. Absent: respiratory distress, wheezes, rales, rhonchi, stridor Cardiovascular Exam: Present: regular rate, normal rhythm, normal heart sounds. Absent: systolic murmur, diastolic murmur, rubs, gallop, clicks GI/Abdominal exam: Present: soft, normal bowel sounds. Absent: distended, tenderness, guarding, rebound, rigid Extremities exam: Present: normal inspection, normal capillary refill, other ( Patient reports numbness and tingling from the knee down bilaterally. Patient ports that seems to be new, Patient has no strength on examination. No bruising noted to the right hip, Patient ports that she did fall in her legs gave out on her right hip.). Absent: full ROM (Patient reports weakness in the bilateral lower extremities. No evidence of foot drop.), tenderness, pedal edema, joint swelling, calf tenderness Back exam: Present: normal inspection Neurological exam: Present: alert Psychiatric exam: Present: normal affect, normal mood Skin exam: Present: warm, dry, intact, normal color. Absent: rash Course Vital Signs 04/29/18 04/29/18 16:02 21:06 Temperature 98.5 F Pulse Rate 101 H 87 Respiratory 20 16 Rate Blood Pressure 138/91 121/69 O2 Sat by Pulse 98 95 Oximetry Medical Decision Making - Medical Decision Making 38-year-old female with chief complaint of MS exacerbation. Reports that she felt bilateral leg weakness. She which is numbness and tingling from the knees down bilateral tremors Patient is some evidence of foot drop. Patient reports no sensation with light touch over the lower feet extremity. I did use the sharp end of the Q-tip and Patient did not respond. Patient also complaint of headache. She reports that she's had workups with the past CTs and MRIs. She has no lateralizing findings as noted bilateral weakness consistent with her previous MS exacerbations. I discussed with the Patient on IV steroid. Patient was admitted last week for similar complaints at this time. I did discuss Mr. oral steroids for follow-up. Patient would not ambulate to discharged. This time I'll give the Patient for observation with continued IV steroids every 8 hours. Discussed should follow-up with neurology. She may need further imaging such as MRI. - Lab Data Result diagrams: 04/29/18 19:41 04/29/18 19:41 Lab Results 04/29/18 04/29/18 04/29/18 Range/Units 19:08 19:41 19:41 WBC 28.6 H (3.8-10.6) k/uL RBC 5.22 (3.80-5.40) m/uL Hgb 15.4 (11.4-16.0) gm/dL Hct 46.0 (34.0-46.0) % MCV 88.1 (80.0-100.0) fL MCH 29.6 (25.0-35.0) pg MCHC 33.6 (31.0-37.0) g/dL RDW 13.6 (11.5-15.5) % Plt Count 394 (150-450) k/uL Neutrophils % (Manual) 64 % Band Neutrophils % 1 % Lymphocytes % (Manual) 26 % Monocytes % (Manual) 7 % Eosinophils % (Manual) 2 % Myelocytes % 2 % Neutrophils # (Manual) 18.50 H (1.3-7.7) k/uL Lymphocytes # (Manual) 7.44 H (1.0-4.8) k/uL Monocytes # (Manual) 2.00 H (0-1.0) k/uL Eosinophils # (Manual) 0.57 (0-0.7) k/uL Myelocytes # (Manual) 0.57 H (0) k/uL Nucleated RBCs 0 (0-0) /100 WBC Manual Slide Review Performed RBC Morphology Normal Sodium 136 L (137-145) mmol/L Potassium 5.1 (3.5-5.1) mmol/L Chloride 104 (98-107) mmol/L Carbon Dioxide 23 (22-30) mmol/L Anion Gap 9 mmol/L BUN 11 (7-17) mg/dL Creatinine 0.58 (0.52-1.04) mg/dL Est GFR (CKD-EPI)AfAm >90 (>60 ml/min/1.73 sqM) Est GFR (CKD-EPI)NonAf >90 (>60 ml/min/1.73 sqM) Glucose 94 (74-99) mg/dL Calcium 9.8 (8.4-10.2) mg/dL Total Bilirubin 0.6 (0.2-1.3) mg/dL AST 42 H (14-36) U/L ALT 48 (9-52) U/L Alkaline Phosphatase 43 (38-126) U/L Troponin I (0.000-0.034) ng/mL Total Protein 7.3 (6.3-8.2) g/dL Albumin 4.3 (3.5-5.0) g/dL Urine Color Yellow Urine Appearance Cloudy H (Clear) Urine pH 7.0 (5.0-8.0) Ur Specific [place] 1.020 (1.001-1.035) Urine Protein Trace H (Negative) Urine Glucose (UA) Negative (Negative) Urine Ketones Negative (Negative) Urine Blood Trace H (Negative) Urine Nitrite Negative (Negative) Urine Bilirubin Negative (Negative) Urine Urobilinogen <2.0 (<2.0) mg/dL Ur Leukocyte Esterase Large H (Negative) Urine RBC 11 H (0-5) /hpf Urine WBC 7 H (0-5) /hpf Ur Squamous Epith Cells 16 H (0-4) /hpf Urine Bacteria Occasional H (None) /hpf Urine Mucus Rare H (None) /hpf 04/29/18 Range/Units 19:41 WBC (3.8-10.6) k/uL RBC (3.80-5.40) m/uL Hgb (11.4-16.0) gm/dL Hct (34.0-46.0) % MCV (80.0-100.0) fL MCH (25.0-35.0) pg MCHC (31.0-37.0) g/dL RDW (11.5-15.5) % Plt Count (150-450) k/uL Neutrophils % (Manual) % Band Neutrophils % % Lymphocytes % (Manual) % Monocytes % (Manual) % Eosinophils % (Manual) % Myelocytes % % Neutrophils # (Manual) (1.3-7.7) k/uL Lymphocytes # (Manual) (1.0-4.8) k/uL Monocytes # (Manual) (0-1.0) k/uL Eosinophils # (Manual) (0-0.7) k/uL Myelocytes # (Manual) (0) k/uL Nucleated RBCs (0-0) /100 WBC Manual Slide Review RBC Morphology Sodium (137-145) mmol/L Potassium (3.5-5.1) mmol/L Chloride (98-107) mmol/L Carbon Dioxide (22-30) mmol/L Anion Gap mmol/L BUN (7-17) mg/dL Creatinine (0.52-1.04) mg/dL Est GFR (CKD-EPI)AfAm (>60 ml/min/1.73 sqM) Est GFR (CKD-EPI)NonAf (>60 ml/min/1.73 sqM) Glucose (74-99) mg/dL Calcium (8.4-10.2) mg/dL Total Bilirubin (0.2-1.3) mg/dL AST (14-36) U/L ALT (9-52) U/L Alkaline Phosphatase (38-126) U/L Troponin I <0.012 (0.000-0.034) ng/mL Total Protein (6.3-8.2) g/dL Albumin (3.5-5.0) g/dL Urine Color Urine Appearance (Clear) Urine pH (5.0-8.0) Ur Specific [place] (1.001-1.035) Urine Protein (Negative) Urine Glucose (UA) (Negative) Urine Ketones (Negative) Urine Blood (Negative) Urine Nitrite (Negative) Urine Bilirubin (Negative) Urine Urobilinogen (<2.0) mg/dL Ur Leukocyte Esterase (Negative) Urine RBC (0-5) /hpf Urine WBC (0-5) /hpf Ur Squamous Epith Cells (0-4) /hpf Urine Bacteria (None) /hpf Urine Mucus (None) /hpf 04/29/18 19:54 EKG shows normal sinus rhythm normal EKG. Ventricular rate of 97 bpm. Intervals 160 ms. She yazdanism 80 ms. QT QTc is 340/431 ms. - Radiology Data Radiology results: report reviewed Negative right hip exam. Normal chest x-ray. No acute changes. Disposition Clinical Impression: Exacerbation of multiple sclerosis, Visual changes, Weakness, Fall Disposition: ADMITTED IP TO THIS HOSP Condition: Stable Referrals: Sj Fitch MD [Primary Care Provider] - 1-2 days Time of Disposition: 20:52
[2018-04-29 19:24] LABS: Appearance,Urine Cloudy (Clear); Bacteria,Urine Occasional /hpf; Bilirubin,Urine Negative (Negative); Blood,Urine Trace (Negative); Color,Urine Yellow; Glucose,Urine (UA) Negative (Negative); Ketones,Urine Negative (Negative); Leukocyte Esterase,Urine Large (Negative); Mucus,Urine Rare /hpf; Nitrite,Urine Negative (Negative); Protein,Urine Trace (Negative); RBC,Urine 11 /hpf (0-5); Squamous Epithelial Cell,Urine 16 /hpf (0-4); Urobilinogen,Urine <2.0 mg/dL (<2.0); WBC,Urine 7 /hpf (0-5)
[2018-04-29 19:54] LABS: HGB 15.4 gm/dL (11.4-16.0); MCH 29.6 pg (25.0-35.0); MCHC 33.6 g/dL (31.0-37.0); MCV 88.1 fL (80.0-100.0); Platelet Count 394 k/uL (150-450); RBC 5.22 m/uL (3.80-5.40); RDW 13.6 % (11.5-15.5); WBC 28.6 k/uL (3.8-10.6)
[2018-04-29 20:11] LABS: Albumin 4.3 g/dL (3.5-5.0); Anion Gap 9 mmol/L; Calcium 9.8 mg/dL (8.4-10.2); Carbon Dioxide 23 mmol/L (22-30); Chloride 104 mmol/L (98-107); Glucose 94 mg/dL (74-99); Sodium 136 mmol/L (137-145); Total Bilirubin 0.6 mg/dL (0.2-1.3); Total Protein 7.3 g/dL (6.3-8.2)
[2018-04-29 20:12] LABS: ALT 48 U/L (9-52); AST 42 U/L (14-36); Alkaline Phosphatase 43 U/L (38-126); Blood Urea Nitrogen 11 mg/dL (7-17); Potassium 5.1 mmol/L (3.5-5.1)
[2018-04-29] MEDS: SODIUM CHLORIDE 0.9% 1,000 ML IV SCH (20:13)
[2018-04-29] MEDS: MORPHINE SULFATE 4 MG/ML SYRINGE IVP STA (20:14)
[2018-04-29 20:46] LABS: Band Neutrophils % 1 %; Eosinophils # (M) 0.57 k/uL (0-0.7); Lymphocytes # (M) 7.44 k/uL (1.0-4.8); Myelocytes # (M) 0.57 k/uL (0); Myelocytes % 2 %; Neutrophils % (M) 64 %; Nucleated Red Blood Cells 0 /100 WBC (0-0); Total Cells Counted 200
--- NOTE | 2018-04-29 21:18 | XR ---
EXAMINATION TYPE: XR Hip Complete RT DATE OF EXAM: 04/29/2018 COMPARISON: NONE HISTORY: Hip pain TECHNIQUE: 2 views FINDINGS: I see no fracture nor dislocation. Hip joint space is normal. There is no sign of hip dyspl bernadine. IMPRESSION: Negative right hip exam.
--- NOTE | 2018-04-29 21:19 | XR ---
EXAMINATION TYPE: XR chest 2V DATE OF EXAM: 04/29/2018 COMPARISON: 01/26/2018 HISTORY: Weakness TECHNIQUE: Frontal and lateral views of the chest are obtained. FINDINGS: Heart and mediastinum are normal. Lungs are clear. Diaphragm is normal. Bony thorax appear s normal. IMPRESSION: Normal chest. No change.
[2018-04-29] MEDS ORDERED: ORPHENADRINE 30 MG/ML 2 ML VIAL IVP STA (21:20)
[2018-04-29] MEDS ORDERED: ONDANSETRON 8 MG in SODIUM CHLORIDE 0.9% 50 ML IVPB ONE (21:20)
[2018-04-29] MEDS ORDERED: NALOXONE 0.4 MG/ML 1 ML VIAL IV PRN (21:33)
[2018-04-29] MEDS ORDERED: ACETAMINOPHEN TAB 325 MG TAB PO PRN (21:33)
[2018-04-29] MEDS ORDERED: TEMAZEPAM 15 MG CAP PO PRN (21:33)
[2018-04-29] MEDS ORDERED: traMADol 50 MG TAB PO PRN (21:33)
[2018-04-29] MEDS ORDERED: IPRATROPIUM-ALBUTEROL 3 ML NEB INHALATION PRN (21:36)
[2018-04-29] MEDS ORDERED: ALBUTEROL NEBULIZED 2.5 MG/3 ML INHALATION PRN (21:36)
[2018-04-29] MEDS ORDERED: MORPHINE SULFATE 2 MG/ML SYRINGE IVP ONE (22:41)
[2018-04-30] MEDS: MORPHINE SULFATE 4 MG/ML SYRINGE IVP STA (00:29)
[2018-04-30] MEDS: LORazepam 2 MG/ML INJ IV PRN ×4 (02:35→20:59)
[2018-04-30] MEDS: MORPHINE SULFATE 4 MG/ML SYRINGE IVP PRN ×6 (04:38→23:47)
[2018-04-30] MEDS: methylPREDNISolone SOD SUCCI 250 MG in SODIUM CHLORIDE 0.9% 100 ML IVPB SCH ×4 (05:03→19:50)
[2018-04-30] MEDS: SODIUM CHLORIDE 0.9% 1,000 ML IV SCH ×3 (05:05→21:02)
[2018-04-30 05:28] VITALS: RESP 16
[2018-04-30] MEDS: ONDANSETRON 4 MG/2 ML VIAL IVP PRN ×2 (05:29→13:22)
[2018-04-30] MEDS: PANTOPRAZOLE 40 MG/10 ML VIAL IV SCH (08:30)
[2018-04-30] MEDS: oxyCODONE-APAP 5-325MG 1 EACH TAB PO PRN ×4 (09:51→23:48)
--- NOTE | 2018-04-30 17:05 | P.HPIM ---
History of Present Illness H&P Date: 04/30/18 Chief Complaint: Bilateral lower extremities weakness and generalized pain Patient is a 38 old female with known history of fibromyalgia, hypertension, multiple sclerosis with recent admission for exacerbation came to the hospital with complaints of with complaints of bilateral lower extremities weakness and headache and generalized pain. Patient was recently discharged from the hospital and went for around yesterday. Patient noticed significant weakness in bilateral lower extremities. Patient also complaining of headache. Patient says that these are her typical symptoms for exacerbation of MS.She also complains of some visual blurriness over bilateral eyes on the peripheral field of vision. Denied any fever or chills. No nausea vomiting abdominal pain. No chest pain or shortness of breath. Denies any dysuria or hematuria. WBC 28.6. UA showed large leukocyte esterase with WBCs 6 and squamous Epithelial cells. Possible contaminant sample. Chest x-ray, left hip x-ray were negative. EKG showed normal sinus rhythm. Patient is requesting IV pain medications and wants to continue with increased dose of Ativan as well. Review of Systems Constitutional: Patient denies any fever or chills . Does have generalized weakness malaise and fatigue. Abdomen: Patient denied nausea vomiting and diarrhea and abdominal pain. Cardiovascular: Patient denies any chest pain or short of breath no palpitations. Respiratory: patient denied any cough is from production. No shortness of breath Neurologic: Patient denied any numbness or tingling. Patient does have headache. Bilateral lower the weakness Musculoskeletal: Patient denies any complaints of joint swelling or deformity. Complains of back pain Skin: Negative Psychiatric: Anxious Endocrine: No heat or cold intolerance. No recent weight gain. Genitourinary: No dysuria or hematuria. All other 14 point ROS negative except the above Past Medical History Past Medical History: Asthma, Fibromyalgia, GERD/Reflux, Hypertension, Musculoskeletal Disorder, Neurologic Disorder, Pneumonia, Seizure Disorder Additional Past Medical History / Comment(s): Pt recently admitted to [facility] on with weakness bilateral legs/possible MS exacerbation. Other hx: Multiple Sclerosis, migraines, DJD, DJD, interstitial cystitis, UTI, PCOS, vit D deficiency, bilateral optic neuritis with visual problems, generalized chronic pain, numbness/tingling bilateral lower legs, tachycardia, c-diff 5-9-15 , History of Any Multi-Drug Resistant Organisms: None Reported Date of last positivie culture/infection: None MDRO Source:: None Past Surgical History: Cholecystectomy, Orthopedic Surgery Additional Past Surgical History / Comment(s): Lt shoulder rotator cuff repair 06/06/14 @ [facility].- pt has since re-torn, L shoulder arthroscopy and pt believes capsular replacement, arthroscopic left knee 2000 & 2002. Past Anesthesia/Blood Transfusion Reactions: No Reported Reaction Additional Past Anesthesia/Blood Transfusion Reaction / Comment(s): Pt has never recieved blood. Smoking Status: Former smoker - Past Family History Mother Family Medical History: No Reported History Additional Family Medical History / Comment(s): mother is healthy Father Family Medical History: Hypertension Medications and Allergies Home Medications Medication Instructions Recorded Confirmed Type Albuterol Inhaler [Ventolin Hfa 2 puff INHALATION RT-QID PRN 12/09/13 04/29/18 History Inhaler] Ipratropium/Albuterol Sulfate 1 puff INHALATION RT-QID PRN 12/09/13 04/29/18 History [Combivent Respimat Inhaler] Albuterol Nebulized [Ventolin 2.5 mg INHALATION RT-QID PRN 01/26/18 04/29/18 History Nebulized] Ipratropium Nebulized [Atrovent 0.5 mg INHALATION RT-QID PRN 01/26/18 04/29/18 History Nebulized] Diazepam [Valium] 10 mg PO HS 04/21/18 04/29/18 History Ondansetron Odt [Zofran ODT] 4 mg PO DAILY PRN 04/29/18 04/29/18 History Allergies Allergy/AdvReac Type Severity Reaction Status Date / Time amoxicillin [Amoxicillin] Allergy Severe Anaphylaxis, Verified 04/29/18 19:16 seizures ciprofloxacin [From Cipro] Allergy Severe Rash/Hives, Verified 04/29/18 19:16 seizures codeine phosphate Allergy Unknown Rash/Hives Verified 04/29/18 19:16 [From Tylenol-Codeine #3] cefuroxime axetil Allergy Rash/Hives Verified 04/29/18 19:16 [From Ceftin] latex Allergy Rash/Hives Verified 04/29/18 19:16 NSAIDS (Non-Steroidal Allergy Rash/Hives/Lip Verified 04/29/18 19:16 Anti-Inflamma Swelling Physical Exam Vitals: Vital Signs Temp Pulse Pulse Resp BP BP Pulse Ox 04/30/18 08:00 98.1 F 102 H 16 134/89 91 L 04/30/18 06:00 98.0 F 61 16 130/80 98 04/30/18 05:27 81 16 130/65 95 04/30/18 04:37 97.0 F L 77 18 145/83 95 04/30/18 01:25 97.1 F L 116 H 17 139/90 04/30/18 00:15 88 16 125/79 98 04/29/18 21:06 87 16 121/69 95 Intake and Output 04/30/18 04/30/18 04/30/18 06:59 14:59 22:59 Intake Total 2100 Balance 2100 Intake: Intake, IV Titration 900 Amount Sodium Chloride 0.9% 1, 700 000 ml @ 100 mls/hr IV . Q10H [facility] Rx#:[id number] methylPREDNISolone SOD 200 SUCCI 250 mg In Sodium Chloride 0.9% 100 ml @ 100 mls/hr IVPB Q6H [facility] Rx#:[id number] Oral 1200 PHYSICAL EXAMINATION: Patient is lying in the bed comfortably, mild distress, awake alert and oriented.. HEENT: Normocephalic. Neck is supple. Pupils reactive. Nostrils clear. Oral cavity is moist. Ears reveal no drainage. Neck reveals no JVD, carotid bruits, or thyromegaly. CHEST EXAMINATION: Trachea is central. Symmetrical expansion. Bibasilar diminished air entry. Lung pacheco clear to auscultation and percussion. CARDIAC: Normal S1, S2 with no gallops. No murmurs ABDOMEN: Soft. Bowel sounds normal. No organomegaly. No abdominal bruits. Extremities: reveal no edema. No clubbing or cyanosis Neurologically awake, alert, oriented x3. Bilateral lower extremity weakness and footdrop. Skin: No rash or skin lesions. Psychiatric: Coperative. Anxious and requesting pain medications IV. Nonsuicidal Musculoskeletal: No joint swelling or deformity. Normal range of motion. Results CBC & Chem 7: 04/29/18 19:41 04/29/18 19:41 Labs: Abnormal Lab Results - Last 24 Hours (Table) 04/29/18 04/29/18 04/29/18 Range/Units 19:08 19:41 19:41 WBC 28.6 H (3.8-10.6) k/uL Neutrophils # (Manual) 18.50 H (1.3-7.7) k/uL Lymphocytes # (Manual) 7.44 H (1.0-4.8) k/uL Monocytes # (Manual) 2.00 H (0-1.0) k/uL Myelocytes # (Manual) 0.57 H (0) k/uL Sodium 136 L (137-145) mmol/L AST 42 H (14-36) U/L Urine Appearance Cloudy H (Clear) Urine Protein Trace H (Negative) Urine Blood Trace H (Negative) Ur Leukocyte Esterase Large H (Negative) Urine RBC 11 H (0-5) /hpf Urine WBC 7 H (0-5) /hpf Ur Squamous Epith Cells 16 H (0-4) /hpf Urine Bacteria Occasional H (None) /hpf Urine Mucus Rare H (None) /hpf Microbiology - Last 24 Hours (Table) 04/29/18 21:10 Urine Culture - Preliminary Urine,Clean Catch Thrombosis Risk Factor Assmnt - DVT/VTE Prophylaxis DVT/VTE Prophylaxis: Pharmacologic Prophylaxis ordered - Choose All That Apply Any of the Below Risk Factors Present?: Yes Each Factor Represents 1 point: Obesity (BMI >25) Other Risk Factors: No Other congenital or acquired thrombophilia - If yes, enter type in comment: No Thrombosis Risk Factor Assessment Total Risk Factor Score: 1 Thrombosis Risk Factor Assessment Level: Low Risk Assessment and Plan Assessment: Bilateral lower the weakness due to acute MS exacerbation Significant leukocytosis due to recent high-dose steroid use Abnormal urine sample. Likely contaminant with high squamous cells. Follow urine culture report Generalized body pains and headache Fibromyalgia GERD Asthma/COPD Seizure disorder history History of PCO S Vitamin D deficiency Bilateral optic neuritis with visual problems Chronic pain syndrome Degenerative joint disease DVT prophylaxis Plan: Patient will be continued on pain management with morphine 4 mg every 4 along with Atrovent 0.5 mg every 6 hourly when necessary and continue with the IV steroids. Follow up closely. Neurology was consulted. Continue the home medications and further recommendations based on the clinical course. Time with Patient: Greater than 30
[2018-04-30] MEDS ORDERED: MAGNESIUM SULFATE-D5W PMX 1 GM in DEXTROSE/WATER 1 100ML.BAG IVPB ONE (18:30)
[2018-04-30] MEDS: METOCLOPRAMIDE 5 MG/ML 2 ML VIAL IVP SCH ×2 (19:48→23:29)
--- NOTE | 2018-04-30 20:33 | CONS ---
CONSULTATION DATE OF CONSULTATION: 04/30/2018. CHIEF COMPLAINT: Multiple sclerosis exacerbation. HISTORY OF PRESENT ILLNESS: The patient is a 38-year-old, female, who is being evaluated by the neurology service per the request of Dr. Soto for a multiple sclerosis exacerbation. The patient was brought into [facility] Emergency Room with the chief complaints of lower extremity weakness and headache. The patient follows with out of town neurologist and states that she was diagnosed with multiple sclerosis. Several years ago. She had been on Tecfidera but this was discontinued over 1 year ago. She states that she is being worked up to start Ocrovus IV infusion. She reports that over the past 2 days, she has been getting progressive weakness in bilateral lower extremities. Yesterday, she started developing a headache which is mainly in the posterior occipital regions. She does have history of occipital neuritis. She denies any fevers. She rates her headache at 8/10 in intensity at the time of my evaluation. She is receiving IV morphine and Percocet p.r.n. per her admission orders. Her CBC on admission showed leukocytosis at 28.6 with a neutrophil count of 18.5. Her comprehensive metabolic profile showed mild hyponatremia at 136, and slightly elevated AST at 42. Her urinalysis showed 7 WBCs with large leukocyte esterase. As for her lower extremity weakness, she states that it is mainly in the distal lower extremities. She has been unable to ambulate today due to the weakness. PAST MEDICAL HISTORY: Multiple sclerosis, asthma, fibromyalgia, gastroesophageal reflux disease, hypertension, seizure disorder, migraine headaches, degenerative joint disease, occipital neuritis, chronic pain syndrome, history of orthopedic surgeries and cholecystectomy. SOCIAL HISTORY: The patient is a former smoker. She denies any alcohol or drug use. FAMILY HISTORY: Positive for hypertension. HOME MEDICATIONS: Reviewed in the chart. ALLERGIES: AMOXICILLIN, CIPRO, CODEINE, CEFTIN, LATEX, NSAIDS. REVIEW OF SYSTEMS: CONSTITUTIONAL: Positive for fatigue. EYES: Positive for some blurred vision due to previous optic neuritis. ENT: Negative. CARDIOVASCULAR: Negative. RESPIRATORY: Positive for occasional shortness of breath. NEUROLOGICAL: As mentioned above. GASTROINTESTINAL: Positive for occasional heartburn. GENITOURINARY: Negative. PSYCHIATRIC: Negative. ENDOCRINE: Negative. DERMATOLOGICAL: Negative. MUSCULOSKELETAL: As mentioned above. PHYSICAL EXAM: Vital signs show a temperature of 98.1. She has been afebrile since her admission. Pulse 102, respiration 16, blood pressure 134/89. GENERAL APPEARANCE: The patient is an obese female, who appears to be in no acute distress. HEENT: Normocephalic, atraumatic, no facial asymmetry is seen. Extraocular muscles are intact, tenderness to palpation is felt along bilateral greater occipital nerve region. NECK: Supple with no masses felt. CARDIOVASCULAR: Regular rate and rhythm. ABDOMEN: Nontender, nondistended. Extremities showed no edema or clubbing. Neurological exam the patient is awake and oriented x3. Speech and language are normal. Strength is 0/5 in bilateral distal lower extremities but the patient gave a very poor effort. Strength is 4/5 in bilateral proximal lower extremities. Strength is 5/5 in bilateral upper extremities. Sensory exam showed diminished light touch sensation in bilateral distal lower extremities until the distal thighs. Deep tendons were normal and symmetrical. Plantar reflex showed downgoing toes bilaterally. No facial asymmetry is seen on cranial nerve testing. No pronator drift is seen. No tremors or seizure-like activity is noticed. IMPRESSION: 1. History of multiple sclerosis. 2. Lower extremity weakness. 3. Lower extremity sensory deficit. 4. Headache. 5. Occipital neuritis. 6. Leukocytosis. 7. Urinary tract infection. RECOMMENDATION: The patient does complain of progressive weakness in bilateral distal lower extremities over the past 2 days. She did give a poor effort in trying to move her lower extremities on my examination. She has been started on IV Solu-Medrol 250 mg every 6 hours. I will consult physical therapy. I will order an MRI of the brain with and without contrast. I will also order an MRI of the lumbar spine as her lower extremity sensory deficit and weakness is atypical. She did not have any sensory level on her torso. As for her headache, the IV Solu-Medrol should help with that. I will also start her on Reglan 10 mg IV every 6 hours and a dose of magnesium sulfate. Continue heparin for DVT prophylaxis and Protonix for GI prophylaxis. I will continue to follow with you. Further recommendations to follow. Thank you for allowing me to participate in the care of your patient. If you have any questions, please feel free to contact me. MMODL / IJN: [id number] / EMIGDIO
[2018-04-30] MEDS ORDERED: DIAZEPAM 5 MG TAB PO SCH (21:00)
[2018-04-30] MEDS: NICOTINE 14MG/24HR PATCH TRANSDERM SCH (23:23)
[2018-04-30] MEDS: HEPARIN SODIUM,PORCINE 5,000 UNIT/ML 1 ML VIAL SQ SCH (23:29)
[2018-05-01] MEDS: METOCLOPRAMIDE 5 MG/ML 2 ML VIAL IVP SCH ×4 (00:44→17:58)
[2018-05-01] MEDS: methylPREDNISolone SOD SUCCI 250 MG in SODIUM CHLORIDE 0.9% 100 ML IVPB SCH ×3 (02:20→15:09)
[2018-05-01] MEDS: LORazepam 2 MG/ML INJ IV PRN ×2 (03:16→15:02)
[2018-05-01] MEDS: oxyCODONE-APAP 5-325MG 1 EACH TAB PO PRN ×5 (05:24→19:48)
[2018-05-01] MEDS: MORPHINE SULFATE 4 MG/ML SYRINGE IVP PRN ×5 (05:25→19:39)
[2018-05-01 07:49] LABS: Basophils # (A) 0.1 k/uL (0-0.2); Basophils % (A) 0 %; Eosinophils # (A) 0.1 k/uL (0-0.7); Eosinophils % (A) 0 %; HCT 41.7 % (34.0-46.0); HGB 12.9 gm/dL (11.4-16.0); Lymphocytes # (A) 1.7 k/uL (1.0-4.8); Lymphocytes % (A) 4 %; MCH 28.7 pg (25.0-35.0); MCHC 30.9 g/dL (31.0-37.0); MCV 92.7 fL (80.0-100.0); Mean Platelet Volume 7.3; Monocytes # (A) 1.4 k/uL (0-1.0); Monocytes % (A) 3 %; Neutrophils # (A) 41.6 k/uL (1.3-7.7); Neutrophils % (A) 92 %; Platelet Count 367 k/uL (150-450); RDW 13.8 % (11.5-15.5); WBC 45.2 k/uL (3.8-10.6)
[2018-05-01 07:52] LABS: Anion Gap 10 mmol/L; Blood Urea Nitrogen 15 mg/dL (7-17); Calcium 9.3 mg/dL (8.4-10.2); Carbon Dioxide 22 mmol/L (22-30); Chloride 107 mmol/L (98-107); Glucose 148 mg/dL (74-99); Potassium 4.3 mmol/L (3.5-5.1); Sodium 139 mmol/L (137-145)
[2018-05-01] MEDS: NICOTINE 14MG/24HR PATCH TRANSDERM SCH (08:33)
[2018-05-01] MEDS: HEPARIN SODIUM,PORCINE 5,000 UNIT/ML 1 ML VIAL SQ SCH ×2 (08:33→15:04)
[2018-05-01] MEDS: PANTOPRAZOLE 40 MG/10 ML VIAL IV SCH (08:33)
[2018-05-01] MEDS ORDERED: LORazepam 2 MG/ML INJ IV STA (08:44)
[2018-05-01] MEDS: SODIUM CHLORIDE 0.9% 1,000 ML IV SCH (08:55)
--- NOTE | 2018-05-01 10:08 | MR ---
EXAMINATION TYPE: MR lumbar spine wo con DATE OF EXAM: 05/01/2018 COMPARISON: CT abdomen and pelvis March 12, 2018. MRI lumbar spine August 30, 2010. HISTORY: Bilateral lower extremity weakness per order. Leg spasms. TECHNIQUE: Multiplanar, multisequence imaging of the lumbar spine is performed without IV contrast. FINDINGS: Exam noted suboptimal due to patient motion related to leg spasms per patient and technolog ist. Sagittal images of the lumbar spine show vertebral body heights to remain satisfactory. Alignmen t is satisfactory and straightened. There is further progression of multilevel disc desiccation. Ther e is mild disc space narrowing L4-L5 level . Small posterior disc herniations are seen on sagittal im ages at L4-L5 and L5-S1 levels. The conus medullaris is normal in position and signal ending mid L1 l evel. The bone marrow signal intensity is within normal limits. No significant spurring is seen. Axial images show the T12-L1, L1-L2, L2-L3, and L3-L4 levels all to appear within normal limits. Axial images at the L4-L5 level show mild broad based posterior disc protrusion minimally effacing an terior thecal sac with mild right-sided facet degenerative changes. Bilateral neural foramina are pat ent. Axial images at L5-S1 level show mild facet degenerative changes bilaterally. There is central disc p rotrusion seen but spinal canal is preserved. There is mild left-sided anterior inferior neural agustin inal narrowing. Right-sided neural foramen is patent. No suspicious retroperitoneal findings are seen. IMPRESSION: Straightening of lumbar spine with some mild multilevel degenerative changes lower lumbar levels as detailed above. No significant focal disc herniation is seen to account for bilateral radi culopathy type symptoms however.
--- NOTE | 2018-05-01 10:40 | MR ---
EXAMINATION TYPE: MR brain wo/w con DATE OF EXAM: 05/01/2018 COMPARISON: MRI brain May 12, 2017 and older studies. HISTORY: MS with progressive extremity weakness TECHNIQUE: Multiplanar, multisequence images of the brain and brainstem is performed without and with IV contras t, utilizing 10 mL intravenous Gadavist gadolinium contrast is administered intravenously. Demyelina ting disease protocol with additional Sagittal Flair sequence performed. FINDINGS: Exam noted suboptimal due to patient repeatedly falling asleep and when not asleep inabilit y to hold still. T2 Lesions Present : Yes Approximate Number of Lesions: Approximately 10-15 Locations Identified : Predominantly Pericallosal and periventricular Size of Reference Lesion(s): 1. 7 x 6 x 5 mm on axial image 19 and sagittal image 10 posterior left frontal coronal radiata lesion felt stable 2 18 x 11 x 14 mm on axial image 21 and sagittal image 22 right parietal periventricular lesion stabl e. Enhancing Lesion(s) Present: No T1 Hypointense Lesion(s) Present: Yes Change from Prior: Stable Diffusion weighted images demonstrate no evidence of a recent infarct or other diffusion abnormality. There is no worrisome extra-axial fluid collection. The ventricular system and cisternal spaces ar e normal in size and appearance. The brain volume is age appropriate. There is old infarct medial ri ght occipital lobe axial image 20 redemonstrated Midline structures demonstrate normal morphology. The craniocervical junction appears within normal limits. Post contrast images demonstrate no abnormal enhancement. The dural venous sinuses appear pa tent. The visualized sinuses are clear and the globes are intact. There is interval improvement in a bnormal fluid signal right mastoid air cells versus prior. IMPRESSION: Stable moderate white matter changes most likely on basis of known multiple sclerosis. No new or enhancing lesions are clearly seen.
--- NOTE | 2018-05-01 11:13 | P.PN ---
Subjective Progress Note Date: 05/01/18 Progress note being dictated for Dr. Smith Interval history:Patient is a 38 old female with known history of fibromyalgia, hypertension, multiple sclerosis with recent admission for exacerbation came to the hospital with complaints of with complaints of bilateral lower extremities weakness and headache and generalized pain. Patient was recently discharged from the hospital and went for around yesterday. Patient noticed significant weakness in bilateral lower extremities. Patient also complaining of headache. Patient says that these are her typical symptoms for exacerbation of MS.She also complains of some visual blurriness over bilateral eyes on the peripheral field of vision. Denied any fever or chills. No nausea vomiting abdominal pain. No chest pain or shortness of breath. Denies any dysuria or hematuria. WBC 28.6. UA showed large leukocyte esterase with WBCs 6 and squamous Epithelial cells. Possible contaminant sample. Chest x-ray, left hip x-ray were negative. EKG showed normal sinus rhythm. Patient is requesting IV pain medications and wants to continue with increased dose of Ativan as well. Review of Systems Constitutional: Patient denies any fever or chills . Does have generalized weakness malaise and fatigue. Abdomen: Patient denied nausea vomiting and diarrhea and abdominal pain. Cardiovascular: Patient denies any chest pain or short of breath no palpitations. Respiratory: patient denied any cough is from production. No shortness of breath Neurologic: Patient denied any numbness or tingling. Patient does have headache. Bilateral lower the weakness Musculoskeletal: Patient denies any complaints of joint swelling or deformity. Complains of back pain Skin: Negative Psychiatric: Anxious Endocrine: No heat or cold intolerance. No recent weight gain. Genitourinary: No dysuria or hematuria. All other 14 point ROS negative except the above 05/01/2018 evaluated by urology, recommendations noted. Maintained on high- dose IV steroids, blood sugars controlled. Good diet intake, consuming 75% of breakfast, no nausea/vomiting. Scheduled for MRI this morning. Complains of generalized weakness in bilateral arms and legs. AMbulating in hallway, tolerating exertion well. Denies chest pain, palpitations or increased shortness of breath. Objective - Vital Signs Vital signs: Vital Signs Temp 98.1 F 04/30/18 08:00 Pulse 88 05/01/18 07:45 Resp 16 04/30/18 17:26 BP 134/89 04/30/18 08:00 Pulse Ox 91 L 04/30/18 08:00 Intake & Output 04/30/18 05/01/18 05/01/18 18:59 06:59 18:59 Intake Total 2099 2810 Balance 2099 2810 Weight 104.326 kg 104.326 kg Intake: Intake, IV Titration 900 700 Amount Sodium Chloride 0.9% 1, 700 400 000 ml @ 100 mls/hr IV . Q10H [facility] Rx#:[id number] methylPREDNISolone SOD 200 300 SUCCI 250 mg In Sodium Chloride 0.9% 100 ml @ 100 mls/hr IVPB Q6H [facility] Rx#:[id number] Oral 1200 2110 Other: # Voids 2 - Exam Patient is sitting up in the bed, no acute distress, awake alert and oriented.. HEENT: Normocephalic. Neck is supple. Pupils reactive. Nostrils clear. Oral cavity is moist. Neck reveals no JVD, carotid bruits, or thyromegaly. CHEST EXAMINATION: Trachea is central. Symmetrical expansion. Bibasilar diminished air entry. Lung pacheco clear to auscultation and percussion. CARDIAC: Normal S1, S2 with no gallops. No murmurs ABDOMEN: Soft. Bowel sounds normal. No organomegaly. No abdominal bruits. Extremities: reveal no edema. No clubbing or cyanosis Neurologically awake, alert, oriented x3. Bilateral lower extremity weakness and footdrop. Skin: No rash or skin lesions. Psychiatric: Coperative. Anxious. Musculoskeletal: No joint swelling or deformity. Normal range of motion. - Labs CBC & Chem 7: 05/01/18 07:16 05/01/18 07:16 Labs: Abnormal Lab Results - Last 24 Hours (Table) 05/01/18 05/01/18 Range/Units 07:16 07:16 WBC 45.2 H (3.8-10.6) k/uL MCHC 30.9 L (31.0-37.0) g/dL Neutrophils # 41.6 H (1.3-7.7) k/uL Monocytes # 1.4 H (0-1.0) k/uL Glucose 148 H (74-99) mg/dL Microbiology - Last 24 Hours (Table) 04/29/18 21:10 Urine Culture - Final Urine,Clean Catch Assessment and Plan Assessment: Bilateral lower the weakness due to acute MS exacerbation Significant leukocytosis due to recent high-dose steroid use Abnormal urine sample. Likely contaminant with high squamous cells. Follow urine culture report Generalized body pains and headache Fibromyalgia GERD Asthma/COPD Seizure disorder history History of PCO S Vitamin D deficiency Bilateral optic neuritis with visual problems Chronic pain syndrome Degenerative joint disease DVT prophylaxis Plan: Continue on current medication regime ,monitoring and symptomatic treatment. Maintain steroids, follow closely with neurology. Close monitoring of blood sugars. MRI pending. Further recommendations to follow. The impression and plan of care has been dictated as directed. : I performed a history and examination of this patient, discussed the same with the dictator. I agree with the dictator's note ,documented as a scribe. Any additional findings or plans will be noted.
[2018-05-01 11:50] LABS: Glucose,Whole Blood 162 mg/dL (75-99)
[2018-05-01] MEDS: INSULIN ASPART 100 UNIT/ML 1 ML 10 ML VIAL SQ SCH ×2 (12:05→18:00)
[2018-05-01 13:29] VITALS: BP 118/69; PULSE 108; TEMP 98
[2018-05-01 17:02] LABS: Hemoglobin A1C 5.7 % (4.0-6.0)
[2018-05-01 17:09] LABS: Glucose,Whole Blood 168 mg/dL (75-99)
--- NOTE | 2018-05-01 17:30 | P.PN ---
Subjective Progress Note Date: 05/01/18 She is a 38-year-old female who is being followed by the neurology service for multiple sclerosis exacerbation. Patient was brought to [facility] with complaints of lower extremity weakness and headache. Patient sees a neurologist out of town and was diagnosed with multiple sclerosis several years ago. She was contacted [facility] but this was discontinued over a year ago. Patient states she is currently being worked up to start Ocrevus IV infusion. She has been getting IV Solu-Medrol every 6 hours is doing much better. Patient had MRI of the brain which showed no enhancing lesions and did show 8-10 lesions which is read as stable. MRI of the cervical spine did not show any cord lesions. MRI of the lumbar spine was unremarkable except for L5-S1 facet arthropathy. At the time of my evaluation, patient's resting comfortably in bed in the past to be in no acute distress. Patient wants to go home. Patient has been ambulating safely in the hallways. Objective - Vital Signs Vital signs: Vital Signs Temp 98 F 05/01/18 13:00 Pulse 108 H 05/01/18 13:00 Resp 16 05/01/18 13:00 BP 118/69 05/01/18 13:00 Pulse Ox 95 05/01/18 13:00 Intake & Output 04/30/18 05/01/18 05/01/18 18:59 06:59 18:59 Intake Total 2100 2810 100 Balance 2100 2810 100 Weight 104.326 kg 104.326 kg Intake: IV 100 methylPREDNISolone SOD 100 SUCCI 250 mg In Sodium Chloride 0.9% 100 ml @ 100 mls/hr IVPB Q6H [facility] Rx#:[id number] Intake, IV Titration 900 700 Amount Sodium Chloride 0.9% 1, 700 400 000 ml @ 100 mls/hr IV . Q10H [facility] Rx#:[id number] methylPREDNISolone SOD 200 300 SUCCI 250 mg In Sodium Chloride 0.9% 100 ml @ 100 mls/hr IVPB Q6H [facility] Rx#:[id number] Oral 1200 2110 Other: # Voids 2 1 - Exam PHYSICAL EXAM: GENERAL APPEARANCE: Patient is a well-developed, female who appears to be in no acute distress. HEENT: Normocephalic, atraumatic, no facial asymmetry is seen. Neck is supple with no masses felt. CARDIOVASCULAR: Regular rate and rhythm. ABDOMEN: Nontender, nondistended. EXTREMITIES: Show no edema or clubbing. NEUROLOGICAL EXAM: Patient is awake, alert, and oriented 3. Speech and language are normal. Strength is 5/5 in all 4 extremities. Sensory exam is diminished to light touch in lower extremities. No facial asymmetry is seen on cranial nerve testing. No tremors or seizure-like activity noted. - Labs CBC & Chem 7: 05/01/18 07:16 05/01/18 07:16 Labs: Abnormal Lab Results - Last 24 Hours (Table) 05/01/18 05/01/18 05/01/18 Range/Units 07:16 07:16 11:49 WBC 45.2 H (3.8-10.6) k/uL MCHC 30.9 L (31.0-37.0) g/dL Neutrophils # 41.6 H (1.3-7.7) k/uL Monocytes # 1.4 H (0-1.0) k/uL Glucose 148 H (74-99) mg/dL POC Glucose (mg/dL) 162 H (75-99) mg/dL 05/01/18 Range/Units 17:08 WBC (3.8-10.6) k/uL MCHC (31.0-37.0) g/dL Neutrophils # (1.3-7.7) k/uL Monocytes # (0-1.0) k/uL Glucose (74-99) mg/dL POC Glucose (mg/dL) 168 H (75-99) mg/dL Microbiology - Last 24 Hours (Table) 04/29/18 21:10 Urine Culture - Final Urine,Clean Catch Assessment and Plan Plan: Impression: 1. History of multiple sclerosis 2. Lower extremity weakness, resolving 3. Lower extremity sensory deficit 4. Headache, resolved 5. Urinary tract infection Recommendation: Patient does complain of progressive weakness in bilateral lower extremities, however, she is much stronger today on exam. Patient is ambulating in the hallway with no problems. As mentioned above, MRI of the brain with and without contrast showed no enhancing lesions and was read as stable as compared to last MRI of the brain. MRI of the lumbar spine was unremarkable except for L5-S1 facet arthropathy. This does not explain lower extremity weakness or pain. I recommend a steroid taper on discharge. I would recommend prednisone 10 mg tablets to be given as 40 mg 3 days, 30 mg 3 days, 20 mg 3 days, and 10 mg 3 days. She should follow up with her current neurologist. I discussed with her the importance of being on a disease modifying agent. Patient is stable for discharge from a neurological standpoint. I will continue to follow with you on an as-needed basis. I performed an examination of the patient and discussed the management with the PHOTONICS ENGINEERING TECHNOLOGIST. I have reviewed the PHOTONICS ENGINEERING TECHNOLOGIST notes and agree with the findings and plan of care.
[2018-05-02] MEDS ORDERED: PANTOPRAZOLE 40 MG TABLET PO SCH (07:30)
== END 2018-05-01 20:30 | disposition home or self-care (01) ==
LOC: EC 15:41 → 4MS4W 20:44 → 5MS5E 20:44 → UNDOADMOB 20:44 → 5MS5E 23:01
PROVIDERS: ADMIT Hospitalist; ATTEND Hospitalist
DX: G35 Multiple sclerosis (principal); R51 Headache; M79.7 Fibromyalgia; K21.9 Gastro-esophageal reflux disease without esophagitis; I10 Essential (primary) hypertension; J44.9 Chronic obstructive pulmonary disease, unspecified; M19.90 Unspecified osteoarthritis, unspecified site; E87.1 Hypo-osmolality and hyponatremia; M46.97 Unspecified inflammatory spondylopathy, lumbosacral region; N30.10 Interstitial cystitis (chronic) without hematuria; H46.9 Unspecified optic neuritis; G89.4 Chronic pain syndrome; G40.909 Epilepsy, unspecified, not intractable, without status epilepticus; E55.9 Vitamin D deficiency, unspecified; E28.2 Polycystic ovarian syndrome; T38.0X5A Adverse effect of glucocorticoids and synthetic analogues, initial encounter; D72.829 Elevated white blood cell count, unspecified; Z82.49 Family history of ischemic heart disease and other diseases of the circulatory system; Z87.891 Personal history of nicotine dependence; Z90.49 Acquired absence of other specified parts of digestive tract; Z88.5 Allergy status to narcotic agent; Z88.0 Allergy status to penicillin; Z88.6 Allergy status to analgesic agent; Z88.1 Allergy status to other antibiotic agents; Z91.040 Latex allergy status
CPT/HCPCS: 36415; 70553; 71046; 72148; 73502; 80048; 80053; 81001; 83036; 84484; 85025; 87086; 93005; 94640; 96361; 96365; 96366; 96367; 96372; 96375; 96376; 99285

== ENCOUNTER 2018-05-24 13:22 | Observation (INO) | payer MEDICARE, OTHER ==
[2018-05-24] MEDS ORDERED: SODIUM CHLORIDE 0.9% 1,000 ML IV STA (14:04)
[2018-05-24 14:47] LABS: Basophils # (A) 0.1 k/uL (0-0.2); Basophils % (A) 1 %; Eosinophils # (A) 0.3 k/uL (0-0.7); Eosinophils % (A) 2 %; HCT 41.5 % (34.0-46.0); HGB 13.5 gm/dL (11.4-16.0); Lymphocytes # (A) 2.7 k/uL (1.0-4.8); Lymphocytes % (A) 21 %; MCH 29.2 pg (25.0-35.0); MCHC 32.7 g/dL (31.0-37.0); MCV 89.4 fL (80.0-100.0); Monocytes # (A) 0.6 k/uL (0-1.0); Monocytes % (A) 5 %; Neutrophils # (A) 8.6 k/uL (1.3-7.7); Neutrophils % (A) 69 %; Platelet Count 405 k/uL (150-450); RBC 4.64 m/uL (3.80-5.40); RDW 13.1 % (11.5-15.5); WBC 12.4 k/uL (3.8-10.6)
[2018-05-24] MEDS ORDERED: ONDANSETRON 4 MG/2 ML VIAL IVP STA (15:01)
[2018-05-24] MEDS ORDERED: MORPHINE SULFATE 2 MG/ML SYRINGE IVP STA ×2 (15:02→18:12)
[2018-05-24] MEDS ORDERED: methylPREDNISolone SOD SUCCI 250 MG in SODIUM CHLORIDE 0.9% 100 ML IVPB STA (15:02)
[2018-05-24 15:05] LABS: ALT 25 U/L (9-52); AST 21 U/L (14-36); Albumin 3.7 g/dL (3.5-5.0); Alkaline Phosphatase 41 U/L (38-126); Amylase 56 U/L (30-110); Anion Gap 7 mmol/L; Blood Urea Nitrogen 9 mg/dL (7-17); Calcium 9.2 mg/dL (8.4-10.2); Carbon Dioxide 25 mmol/L (22-30); Chloride 107 mmol/L (98-107); Glucose 81 mg/dL (74-99); Lipase 71 U/L (23-300); Potassium 4.3 mmol/L (3.5-5.1); Sodium 139 mmol/L (137-145); Total Bilirubin 0.3 mg/dL (0.2-1.3); Total Protein 6.3 g/dL (6.3-8.2)
[2018-05-24] MEDS: SODIUM CHLORIDE 0.9% 1,000 ML IV SCH (15:20)
--- NOTE | 2018-05-24 15:21 | ED ---
General Adult HPI - General Chief complaint: Nausea/Vomiting/Diarrhea Stated complaint: Dizziness & vomiting Time Seen by Provider: 05/24/18 13:51 Source: patient, RN notes reviewed, old records reviewed Mode of arrival: wheelchair Limitations: no limitations - History of Present Illness Initial comments: This patient's a 38-year-old female presents emergency department today with chief complaint of nausea and vomiting since 3 AM. Patient reports his history of MS. Patient states that she started a new MS treatment earlier this week. She later subsequently developed ALLERGIC reaction to this. She went to [facility] emergency department where she had the treatment. Benadryl site Medrol Dosepak feeling well at afterwards. Patient states that over the past 2 days she's had increased numbness and tingling in the right hand. She also complains of losing vision in peripheral vision within the right eye. Patient states that she has this history of MS and cirrhosis initially her prodromal symptoms a 46 MS exacerbation. Patient was admitted approximately one month ago for similar complaints. Patient states that she has had increased vomiting. She denies rest pain, shortness of breath or back pain. She denies any significant abdominal pain. Patient reports that she's also had a fall today. She states that she hurt her left shoulder. - Related Data Home Medications Medication Instructions Recorded Confirmed Albuterol Inhaler [Ventolin Hfa 2 puff INHALATION RT-QID PRN 12/09/13 05/24/18 Inhaler] Ipratropium/Albuterol Sulfate 1 puff INHALATION RT-QID PRN 12/09/13 05/24/18 [Combivent Respimat Inhaler] Albuterol Nebulized [Ventolin 2.5 mg INHALATION RT-QID PRN 01/26/18 05/24/18 Nebulized] Ipratropium Nebulized [Atrovent 0.5 mg INHALATION RT-QID PRN 01/26/18 05/24/18 Nebulized] Diazepam [Valium] 5 mg PO BID PRN 05/24/18 05/24/18 Lisinopril [Zestril] 10 mg PO DAILY 05/24/18 05/24/18 Allergies Allergy/AdvReac Type Severity Reaction Status Date / Time amoxicillin [Amoxicillin] Allergy Severe Anaphylaxis, Verified 05/24/18 14:28 seizures ciprofloxacin [From Cipro] Allergy Severe Rash/Hives, Verified 05/24/18 14:28 seizures codeine phosphate Allergy Unknown Rash/Hives Verified 05/24/18 14:28 [From Tylenol-Codeine #3] cefuroxime axetil Allergy Rash/Hives Verified 05/24/18 14:28 [From Ceftin] latex Allergy Rash/Hives Verified 05/24/18 14:28 NSAIDS (Non-Steroidal Allergy Rash/Hives/Lip Verified 05/24/18 14:28 Anti-Inflamma Swelling Review of Systems ROS Statement: Those systems with pertinent positive or pertinent negative responses have been documented in the HPI. ROS Other: All systems not noted in ROS Statement are negative. Past Medical History Past Medical History: Asthma, Fibromyalgia, GERD/Reflux, Hypertension, Musculoskeletal Disorder, Neurologic Disorder, Pneumonia, Seizure Disorder Additional Past Medical History / Comment(s): Pt recently admitted to [facility] on with weakness bilateral legs/possible MS exacerbation. Other hx: Multiple Sclerosis, migraines, DJD, DJD, interstitial cystitis, UTI, PCOS, vit D deficiency, bilateral optic neuritis with visual problems, generalized chronic pain, numbness/tingling bilateral lower legs, tachycardia, c-diff 5--15 , History of Any Multi-Drug Resistant Organisms: C-DIFF Date of last positivie culture/infection: 2015 MDRO Source:: None Past Surgical History: Cholecystectomy, Orthopedic Surgery Additional Past Surgical History / Comment(s): Lt shoulder rotator cuff repair 06/06/14 @ [facility] pt has since re-torn, L shoulder arthroscopy and pt believes capsular replacement, arthroscopic left knee 2000 & 2002. Past Anesthesia/Blood Transfusion Reactions: No Reported Reaction Additional Past Anesthesia/Blood Transfusion Reaction / Comment(s): Pt has never recieved blood. Past Psychological History: Anxiety, Depression Smoking Status: Former smoker Past Alcohol Use History: None Reported Past Drug Use History: None Reported - Past Family History Mother Family Medical History: No Reported History Additional Family Medical History / Comment(s): mother is healthy Father Family Medical History: Hypertension General Exam - General Exam Comments Initial Comments: 38-year-old male. Alert and oriented 3. Patient appears in no significant distress. Limitations: no limitations General appearance: alert, in no apparent distress Head exam: Present: atraumatic, normocephalic, normal inspection Eye exam: Present: normal appearance, PERRL, EOMI. Absent: scleral icterus, conjunctival injection, periorbital swelling ENT exam: Present: normal exam, mucous membranes moist Neck exam: Present: normal inspection. Absent: tenderness, meningismus, lymphadenopathy Respiratory exam: Present: normal lung sounds bilaterally. Absent: respiratory distress, wheezes, rales, rhonchi, stridor Cardiovascular Exam: Present: regular rate, normal rhythm, normal heart sounds. Absent: systolic murmur, diastolic murmur, rubs, gallop, clicks GI/Abdominal exam: Present: soft, normal bowel sounds. Absent: distended, tenderness, guarding, rebound, rigid Extremities exam: Present: normal inspection, full ROM, normal capillary refill. Absent: tenderness, pedal edema, joint swelling, calf tenderness Back exam: Present: normal inspection Neurological exam: Present: alert, CN II-XII intact Psychiatric exam: Present: normal affect, normal mood Skin exam: Present: warm, dry, intact, normal color. Absent: rash Course Vital Signs 05/24/18 13:43 Temperature 98.4 F Pulse Rate 83 Respiratory 18 Rate Blood Pressure 120/87 O2 Sat by Pulse 99 Oximetry Medical Decision Making - Medical Decision Making 38-year-old female with history of MS presents today with nausea and vomiting. Unable to keep her medications down. She also complains of peripheral paresthesias in the right hand losing vision within her right eye. Concern for MS exacerbation. She complains of diffuse pain over her entire body. I gave the Patient to let him some morphine continued to have more pain medication. Patient has had only episodes of spitting up within the emesis basin. Patient reports that she did fall today and complained of left shoulder pain. X-ray of the shoulder was negative for any acute process. Patient advised that all of her laboratory was reviewed and unremarkable. Patient is still concerned about complaining of the headache and vision loss in peripheral vision of her right eye. Discussed that this time we can keep the Patient for observation started on IV steroid. Discussed that she'll see neurology. - Lab Data Result diagrams: 05/24/18 14:32 05/24/18 14:32 Lab Results 05/24/18 05/24/18 05/24/18 Range/Units 14:32 14:32 15:10 WBC 12.4 H (3.8-10.6) k/uL RBC 4.64 (3.80-5.40) m/uL Hgb 13.5 (11.4-16.0) gm/dL Hct 41.5 (34.0-46.0) % MCV 89.4 (80.0-100.0) fL MCH 29.2 (25.0-35.0) pg MCHC 32.7 (31.0-37.0) g/dL RDW 13.1 (11.5-15.5) % Plt Count 405 (150-450) k/uL Neutrophils % 69 % Lymphocytes % 21 % Monocytes % 5 % Eosinophils % 2 % Basophils % 1 % Neutrophils # 8.6 H (1.3-7.7) k/uL Lymphocytes # 2.7 (1.0-4.8) k/uL Monocytes # 0.6 (0-1.0) k/uL Eosinophils # 0.3 (0-0.7) k/uL Basophils # 0.1 (0-0.2) k/uL Sodium 139 (137-145) mmol/L Potassium 4.3 (3.5-5.1) mmol/L Chloride 107 (98-107) mmol/L Carbon Dioxide 25 (22-30) mmol/L Anion Gap 7 mmol/L BUN 9 (7-17) mg/dL Creatinine 0.65 (0.52-1.04) mg/dL Est GFR (CKD-EPI)AfAm >90 (>60 ml/min/1.73 sqM) Est GFR (CKD-EPI)NonAf >90 (>60 ml/min/1.73 sqM) Glucose 81 (74-99) mg/dL Calcium 9.2 (8.4-10.2) mg/dL Total Bilirubin 0.3 (0.2-1.3) mg/dL AST 21 (14-36) U/L ALT 25 (9-52) U/L Alkaline Phosphatase 41 (38-126) U/L Total Protein 6.3 (6.3-8.2) g/dL Albumin 3.7 (3.5-5.0) g/dL Amylase 56 (30-110) U/L Lipase 71 (23-300) U/L Urine Color Yellow Urine Appearance Cloudy H (Clear) Urine pH 7.0 (5.0-8.0) Ur Specific Marshall 1.010 (1.001-1.035) Urine Protein Negative (Negative) Urine Glucose (UA) Negative (Negative) Urine Ketones Negative (Negative) Urine Blood Small H (Negative) Urine Nitrite Negative (Negative) Urine Bilirubin Negative (Negative) Urine Urobilinogen <2.0 (<2.0) mg/dL Ur Leukocyte Esterase Negative (Negative) Urine RBC 2 (0-5) /hpf Urine WBC 1 (0-5) /hpf Ur Squamous Epith Cells 5 H (0-4) /hpf Urine Mucus Rare H (None) /hpf - Radiology Data Radiology results: report reviewed Head. Widened before meals joint space skin similar to previous exam. No acute bony or maladies. Normal chest. No acute changes noted. Disposition Clinical Impression: Exacerbation of multiple sclerosis, Nausea & vomiting Disposition: ADMITTED IP TO THIS HOSP Condition: Stable Referrals: Sj Fitch MD [Primary Care Provider] - 1-2 days Time of Disposition: 17:29
[2018-05-24 15:30] LABS: Appearance,Urine Cloudy (Clear); Bilirubin,Urine Negative (Negative); Blood,Urine Small (Negative); Color,Urine Yellow; Glucose,Urine (UA) Negative (Negative); Ketones,Urine Negative (Negative); Leukocyte Esterase,Urine Negative (Negative); Mucus,Urine Rare /hpf; Nitrite,Urine Negative (Negative); Protein,Urine Negative (Negative); RBC,Urine 2 /hpf (0-5); Squamous Epithelial Cell,Urine 5 /hpf (0-4); Urobilinogen,Urine <2.0 mg/dL (<2.0); WBC,Urine 1 /hpf (0-5)
--- NOTE | 2018-05-24 15:56 | XR ---
EXAMINATION TYPE: XR chest 2V DATE OF EXAM: 05/24/2018 COMPARISON: 04/29/2018 HISTORY: Dizziness TECHNIQUE: Frontal and lateral views of the chest are obtained. FINDINGS: Heart and mediastinum are normal. Lungs are clear. Diaphragm is normal. Bony thorax appear s normal. IMPRESSION: Normal chest. No change.
--- NOTE | 2018-05-24 15:58 | XR ---
EXAMINATION TYPE: XR shoulder complete LT DATE OF EXAM: 05/24/2018 COMPARISON: NONE HISTORY: Pain and dizziness TECHNIQUE: 3 views FINDINGS: There is a pin in the humeral head. I see no fracture nor dislocation. There is some wideni ng of the AC joint space and could relate to surgery or old ligament injury. IMPRESSION: Widened AC j oint space similar to old exam. No acute bony abnormality.
[2018-05-24] MEDS ORDERED: ORPHENADRINE 30 MG/ML 2 ML VIAL IVP STA (16:01)
[2018-05-24] MEDS ORDERED: NALOXONE 0.4 MG/ML 1 ML VIAL IV PRN (17:30)
[2018-05-24] MEDS ORDERED: KETOROLAC 30 MG/ML 1 ML VIAL IVP PRN (17:30)
[2018-05-24] MEDS ORDERED: IBUPROFEN 400 MG TAB PO PRN (17:30)
[2018-05-24] MEDS ORDERED: ACETAMINOPHEN TAB 325 MG TAB PO PRN (17:30)
[2018-05-24] MEDS ORDERED: ALBUTEROL INHALER 60 PUFF/8 GM INHALER INHALATION PRN (17:32)
[2018-05-24] MEDS ORDERED: NON-FORMULARY DRUG (Ipratropium/Albuterol Sulfate [Combivent Respimat Inhaler] 1 PUFF) INHALATION PRN (17:32)
[2018-05-24] MEDS ORDERED: IPRATROPIUM 0.5 MG/2.5 ML NEBU INHALATION PRN (17:32)
[2018-05-24] MEDS ORDERED: ALBUTEROL NEB (CONC) 2.5 MG/0.5 ML INHALATION PRN (17:32)
[2018-05-24] MEDS ORDERED: METOCLOPRAMIDE 5 MG/ML 2 ML VIAL IVP STA (17:32)
[2018-05-24] MEDS ORDERED: diphenhydrAMINE 50 MG/ML 1 ML VIAL IVP STA (17:32)
--- NOTE | 2018-05-24 19:33 | P.HPIM ---
History of Present Illness H&P Date: 05/24/18 Chief Complaint: Vomiting, increased weakness on left upper and lower extremities Ms. Uriarte is a 38-year-old female with a past medical history of multiple sclerosis coming into the emergency department with a chief complaint of nausea and vomiting since this morning. Patient states that she is started on new medication Ocrevus for her and this earlier this week. She states she developed an ALLERGIC reaction to this and so went to [facility] emergency department, where they treated her with Medrol Dosepak and Benadryl and discharged her. Patient states over the past couple of days she has been having increased stinging and numbness in the right upper extremity and also her right lower extremity. Patient also complains of losing peripheral vision in her right eye. She states this is usually the presentation and she has an exacerbation of her multiple sclerosis. Patient also complains of increased vomiting. Patient denies having any chest pain or shortness of breath. Patient denies having any abdominal pain, diarrhea or constipation. Patient states she felt dizzy and landed on her left shoulder, and now she has mild tenderness over her left shoulder region. Patient denies any fevers chills or rigors. No chest pain or palpitations. No dysuria or hematuria. No abdominal pain or diarrhea or constipation. Patient had a chest x-ray and a shoulder x-ray in the ER with been within normal limits. Patient was given a high dose of IV Solu-Medrol and admitted for possible exacerbation of her MS. Review of Systems REVIEW OF SYSTEMS: CONSTITUTIONAL; no fever chills or rigors PSYCH: Normal psychiatric exam NEURO: Increased weakness in her right upper and lower extremities VASCULAR: Peripheral nervous system within the normal limits no edema HEMATOLOGIC: No history of easy bleeding and bruising . No recent infections . RESPIRATORY: No cough, No SOB, No chest discomfort. IMMUNE: No infections INTEGUMENT: no rashes OPHTHALMOLOGIC: No blurry vision and no eye discharge : No dysuria or hematuria HUMANITIES DEPARTMENT CHAIR: No bleeding PV CARDIAC: No chest pain , shortness of breath , paroxysmal nocturnal dyspnea MUSCULOSKELETAL : No Aches or pains in the joints or muscles. GI: As per HPI Past Medical History Past Medical History: Asthma, Fibromyalgia, GERD/Reflux, Hypertension, Musculoskeletal Disorder, Neurologic Disorder, Pneumonia, Seizure Disorder Additional Past Medical History / Comment(s): Pt recently admitted to [facility] on with weakness bilateral legs/possible MS exacerbation. Other hx: Multiple Sclerosis, migraines, DJD, DJD, interstitial cystitis, UTI, PCOS, vit D deficiency, bilateral optic neuritis with visual problems, generalized chronic pain, numbness/tingling bilateral lower legs, tachycardia, c-diff 5-9-15 , History of Any Multi-Drug Resistant Organisms: C-DIFF Date of last positivie culture/infection: 2015 MDRO Source:: None Past Surgical History: Cholecystectomy, Orthopedic Surgery Additional Past Surgical History / Comment(s): Lt shoulder rotator cuff repair 06/06/14 @ [facility].- pt has since re-torn, L shoulder arthroscopy and pt believes capsular replacement, arthroscopic left knee 2000 & 2002. Past Anesthesia/Blood Transfusion Reactions: No Reported Reaction Additional Past Anesthesia/Blood Transfusion Reaction / Comment(s): Pt has never recieved blood. Past Psychological History: Anxiety, Depression Smoking Status: Former smoker Past Alcohol Use History: None Reported Past Drug Use History: None Reported - Past Family History Mother Family Medical History: No Reported History Additional Family Medical History / Comment(s): mother is healthy Father Family Medical History: Hypertension Medications and Allergies Home Medications Medication Instructions Recorded Confirmed Type Albuterol Inhaler [Ventolin Hfa 2 puff INHALATION RT-QID PRN 12/09/13 05/24/18 History Inhaler] Ipratropium/Albuterol Sulfate 1 puff INHALATION RT-QID PRN 12/09/13 05/24/18 History [Combivent Respimat Inhaler] Albuterol Nebulized [Ventolin 2.5 mg INHALATION RT-QID PRN 01/26/18 05/24/18 History Nebulized] Ipratropium Nebulized [Atrovent 0.5 mg INHALATION RT-QID PRN 01/26/18 05/24/18 History Nebulized] Diazepam [Valium] 5 mg PO BID PRN 05/24/18 05/24/18 History Lisinopril [Zestril] 10 mg PO DAILY 05/24/18 05/24/18 History Allergies Allergy/AdvReac Type Severity Reaction Status Date / Time amoxicillin [Amoxicillin] Allergy Severe Anaphylaxis, Verified 05/24/18 14:28 seizures ciprofloxacin [From Cipro] Allergy Severe Rash/Hives, Verified 05/24/18 14:28 seizures codeine phosphate Allergy Unknown Rash/Hives Verified 05/24/18 14:28 [From Tylenol-Codeine #3] cefuroxime axetil Allergy Rash/Hives Verified 05/24/18 14:28 [From Ceftin] ketorolac [From Toradol] Allergy Rash/Hives Verified 05/24/18 17:51 latex Allergy Rash/Hives Verified 05/24/18 14:28 NSAIDS (Non-Steroidal Allergy Rash/Hives/Lip Verified 05/24/18 14:28 Anti-Inflamma Swelling Physical Exam Vitals: Vital Signs Temp Pulse Resp BP Pulse Ox 05/24/18 18:17 68 18 137/97 97 05/24/18 13:43 98.4 F 83 18 120/87 99 Intake and Output 05/24/18 05/24/18 05/24/18 06:59 14:59 22:59 Other: Weight 99.79 kg GENERAL EXAM GEN. APPEARANCE: alert, in no apparent distress HEAD EXAM: atraumatic, normocephalic, normal inspection EYE EXAM: No pallor or icterus ENT EXAM: normal exam, mucous membranes moist NECK EXAM: No thyromegaly or lymphadenopathy RESPIRATORY EXAM: normal lung sounds bilaterally. Absent: respiratory distress , wheezes, rales, rhonchi, stridor CARDIOVASCULAR EXAM: regular rate, normal rhythm, normal heart sounds. Absent : systolic murmur, diastolic murmur, rubs, gallop, clicks GI/ABDOMINAL EXAM: soft, normal bowel sounds. Mild epigastric tenderness. No guarding or rigidity EXTREMITIES EXAM: No peripheral edema NEUROLOGICAL EXAM: alert, oriented X3, strength is decreased in her right upper and lower extremities- 3 out of 5. Left upper and lower extremities strength is 5 out of 5. PSYCHIATRIC EXAM: normal affect, normal mood SKIN EXAM: warm, dry, intact, normal color. Absent: rash Results CBC & Chem 7: 05/24/18 14:32 05/24/18 14:32 Labs: Abnormal Lab Results - Last 24 Hours (Table) 05/24/18 05/24/18 Range/Units 14:32 15:10 WBC 12.4 H (3.8-10.6) k/uL Neutrophils # 8.6 H (1.3-7.7) k/uL Urine Appearance Cloudy H (Clear) Urine Blood Small H (Negative) Ur Squamous Epith Cells 5 H (0-4) /hpf Urine Mucus Rare H (None) /hpf Assessment and Plan Assessment: ASSESSMENT Acute exacerbation of multiple sclerosis Mild persistent asthma Leukocytosis Fibromyalgia GERD/reflux Hypertension Seizure disorder Interstitial cystitis PCO S Vitamin D deficiency Plan: Patient is getting high-dose steroids for possible acute exacerbation of multiple sclerosis. Patient has been on antiemetics for her nausea and vomiting. Patient complains of headache and states that Tylenol does not usually work for her pain. She requests either morphine or Dilaudid for her pain. Patient will be ready to known home medications. Further determinations to follow depending on the progress of the patient. Neurology consult will be obtained.
[2018-05-24] MEDS ORDERED: MORPHINE SULFATE 2 MG/ML SYRINGE IVP PRN (20:12)
[2018-05-24] MEDS: DIAZEPAM 5 MG TAB PO PRN (21:21)
[2018-05-24] MEDS: ONDANSETRON 4 MG/2 ML VIAL IVP PRN (21:24)
[2018-05-24] MEDS: HYDROmorphone 1 MG/ML 1 ML SYRINGE IVP PRN (23:34)
[2018-05-25] MEDS: HYDROmorphone 1 MG/ML 1 ML SYRINGE IVP PRN ×3 (03:27→09:51)
[2018-05-25] MEDS: ONDANSETRON 4 MG/2 ML VIAL IVP PRN (03:27)
[2018-05-25] MEDS: SODIUM CHLORIDE 0.9% 1,000 ML IV SCH (03:29)
[2018-05-25 08:32] VITALS: BP 150/94; PULSE 78; RESP 18; TEMP 97.6
[2018-05-25] MEDS ORDERED: PANTOPRAZOLE 40 MG/10 ML VIAL IV SCH (09:00)
[2018-05-25] MEDS ORDERED: LISINOPRIL 10 MG TAB PO SCH (09:00)
[2018-05-25] MEDS: DIAZEPAM 5 MG TAB PO PRN (09:51)
[2018-05-25] MEDS ORDERED: methylPREDNISolone SOD SUCCI 125 MG/2 ML VIAL IV SCH (12:00)
[2018-05-25] MEDS ORDERED: methylPREDNISolone SOD SUCCI 250 MG in SODIUM CHLORIDE 0.9% 100 ML IVPB SCH (12:00)
--- NOTE | 2018-05-26 11:45 | P.DS ---
Providers Date of admission: 05/24/18 17:36 Expected date of discharge: 05/25/18 Attending physician: Chaya Ramírez Consults: 05/24/18 17:30 Consult Physician Stat Consulting Provider: Sneha Monsalve Consult Reason/Comments: MS exacerbation Do you want consulting provider notified?: Yes Primary care physician: [facility] Course: Chief Complaint: Vomiting, increased weakness on left upper and lower extremities Ms. Uriarte is a 38-year-old female with a past medical history of multiple sclerosis coming into the emergency department with a chief complaint of nausea and vomiting since this morning. Patient states that she is started on new medication Ocrevus for her and this earlier this week. She states she developed an ALLERGIC reaction to this and so went to [facility] emergency department, where they treated her with Medrol Dosepak and Benadryl and discharged her. Patient states over the past couple of days she has been having increased stinging and numbness in the right upper extremity and also her right lower extremity. Patient also complains of losing peripheral vision in her right eye. She states this is usually the presentation and she has an exacerbation of her multiple sclerosis. Patient also complains of increased vomiting. Patient denies having any chest pain or shortness of breath. Patient denies having any abdominal pain, diarrhea or constipation. Patient states she felt dizzy and landed on her left shoulder, and now she has mild tenderness over her left shoulder region. Patient denies any fevers chills or rigors. No chest pain or palpitations. No dysuria or hematuria. No abdominal pain or diarrhea or constipation. Patient had a chest x-ray and a shoulder x-ray in the ER with been within normal limits. Patient was given a high dose of IV Solu-Medrol and admitted for possible exacerbation of her MS. This morning when I went to see the patient she was comfortably lying in bed watching a movie on her cell phone, holding with both her hands. As soon as she saw me she started to complain of pain and requested that she be given Dilaudid or morphine for her pain. Patient has multiple admissions in the past and leaving AGAINST MEDICAL ADVICE when she was not given IV pain medications. I discussed in detail with her that I cannot give her IV Dilaudid or morphine and she was upset and said she would leave the hospital AGAINST MEDICAL ADVICE. Later I was called by nursing staff that the patient left AGAINST MEDICAL ADVICE. DISCHARGE DIAGNOSIS Acute exacerbation of multiple sclerosis Mild persistent asthma Leukocytosis Fibromyalgia GERD/reflux Hypertension Seizure disorder Interstitial cystitis PCO S Vitamin D deficiency Pt left the hospital AMA. Patient Condition at Discharge: Stable Plan - Discharge Summary Discharge Rx Participant: No New Discharge Prescriptions: No Action Ipratropium/Albuterol Sulfate [Combivent Respimat Inhaler] 1 puff INHALATION RT-QID PRN PRN Reason: Shortness Of Breath Albuterol Inhaler [Ventolin Hfa Inhaler] 2 puff INHALATION RT-QID PRN PRN Reason: Shortness Of Breath Ipratropium Nebulized [Atrovent Nebulized] 0.5 mg INHALATION RT-QID PRN PRN Reason: Shortness Of Breath Albuterol Nebulized [Ventolin Nebulized] 2.5 mg INHALATION RT-QID PRN PRN Reason: Shortness Of Breath Lisinopril [Zestril] 10 mg PO DAILY Diazepam [Valium] 5 mg PO BID PRN PRN Reason: Anxiety Discharge Medication List Albuterol Inhaler [Ventolin Hfa Inhaler] 2 puff INHALATION RT-QID PRN 12/09/13 [ History] Ipratropium/Albuterol Sulfate [Combivent Respimat Inhaler] 1 puff INHALATION RT- QID PRN 12/09/13 [History] Albuterol Nebulized [Ventolin Nebulized] 2.5 mg INHALATION RT-QID PRN 01/26/18 [ History] Ipratropium Nebulized [Atrovent Nebulized] 0.5 mg INHALATION RT-QID PRN [History] Diazepam [Valium] 5 mg PO BID PRN 05/24/18 [History] Lisinopril [Zestril] 10 mg PO DAILY 05/24/18 [History] Follow up Appointment(s)/Referral(s): Sj Fitch MD [Primary Care Provider] - 1-2 days Discharge Disposition: Left Against Medical Advice
== END 2018-05-25 11:27 | disposition left against medical advice (07) ==
LOC: EC 13:22 → 1SOBS 17:36
PROVIDERS: ADMIT Internal Medicine; ATTEND Internal Medicine
DX: G35 Multiple sclerosis (principal); Z53.21 Procedure and treatment not carried out due to patient leaving prior to being seen by health care provider; J45.30 Mild persistent asthma, uncomplicated; N30.10 Interstitial cystitis (chronic) without hematuria; M79.7 Fibromyalgia; K21.9 Gastro-esophageal reflux disease without esophagitis; I10 Essential (primary) hypertension; G40.909 Epilepsy, unspecified, not intractable, without status epilepticus; E55.9 Vitamin D deficiency, unspecified; R11.2 Nausea with vomiting, unspecified; M25.512 Pain in left shoulder; Z87.01 Personal history of pneumonia (recurrent); Z16.24 Resistance to multiple antibiotics; Z90.49 Acquired absence of other specified parts of digestive tract; Z87.440 Personal history of urinary (tract) infections; E28.2 Polycystic ovarian syndrome; F41.9 Anxiety disorder, unspecified; Z87.891 Personal history of nicotine dependence; Z82.49 Family history of ischemic heart disease and other diseases of the circulatory system; Z79.899 Other long term (current) drug therapy; Z88.1 Allergy status to other antibiotic agents; Z88.5 Allergy status to narcotic agent; Z88.0 Allergy status to penicillin; Z91.040 Latex allergy status; Z88.8 Allergy status to other drugs, medicaments and biological substances; W19.XXXA Unspecified fall, initial encounter
CPT/HCPCS: 99285; 96365 ×2; 96361 ×4; 96375 ×6; 96376 ×2; 36415; 80053; 82150; 83690; 85025; 81001; 73030; 71046; G0378 ×2; J1200; J2360; J2765; J2930; J2405 ×2; J2270; J1170 ×2; C9113

== ENCOUNTER 2018-08-11 09:31 | Observation (INO) | payer MEDICARE, OTHER ==
[2018-08-11 09:37] VITALS: TEMP 98.1
[2018-08-11] MEDS ORDERED: SODIUM CHLORIDE 0.9% 1,000 ML IV STA (10:17)
[2018-08-11] MEDS ORDERED: methylPREDNISolone SOD SUCCI 250 MG in SODIUM CHLORIDE 0.9% 100 ML IVPB STA (10:26)
[2018-08-11] MEDS ORDERED: MORPHINE SULFATE 4 MG/ML SYRINGE IVP STA ×2 (10:35→11:44)
[2018-08-11 10:37] LABS: Basophils # (A) 0.1 k/uL (0-0.2); Basophils % (A) 1 %; Eosinophils # (A) 0.5 k/uL (0-0.7); Eosinophils % (A) 4 %; HCT 38.8 % (34.0-46.0); HGB 13.2 gm/dL (11.4-16.0); Lymphocytes % (A) 15 %; MCH 29.9 pg (25.0-35.0); Mean Platelet Volume 7.7; Monocytes % (A) 8 %; Neutrophils # (A) 9.7 k/uL (1.3-7.7); Neutrophils % (A) 72 %; Platelet Count 405 k/uL (150-450); RBC 4.42 m/uL (3.80-5.40); RDW 13.2 % (11.5-15.5); WBC 13.5 k/uL (3.8-10.6)
[2018-08-11 10:47] LABS: ALT 25 U/L (9-52); AST 25 U/L (14-36); Alkaline Phosphatase 43 U/L (38-126); Anion Gap 9 mmol/L; Blood Urea Nitrogen 11 mg/dL (7-17); Calcium 9.1 mg/dL (8.4-10.2); Carbon Dioxide 23 mmol/L (22-30); Chloride 108 mmol/L (98-107); Glucose 89 mg/dL (74-99); Magnesium 1.9 mg/dL (1.6-2.3); Potassium 4.2 mmol/L (3.5-5.1); Sodium 140 mmol/L (137-145); Total Bilirubin 0.3 mg/dL (0.2-1.3); Total Protein 6.4 g/dL (6.3-8.2)
[2018-08-11 10:50] LABS: INR 0.9 (<1.2); Partial Thromboplastin Time 23.8 sec (22.0-30.0); Prothrombin Time 10.1 sec (9.0-12.0)
[2018-08-11 11:03] LABS: Creatine Kinase 125 U/L (30-135)
[2018-08-11 11:16] LABS: Creatine Kinase MB 1.2 ng/mL (0.0-2.4); Troponin I <0.012 ng/mL (0.000-0.034)
[2018-08-11] MEDS ORDERED: ONDANSETRON 4 MG/2 ML VIAL IVP STA (11:45)
--- NOTE | 2018-08-11 13:06 | XR ---
EXAMINATION TYPE: XR chest 2V DATE OF EXAM: 08/11/2018 COMPARISON: 05/24/2018 HISTORY: Chest pain TECHNIQUE: Frontal and lateral views of the chest are obtained. FINDINGS: There is no focal air space opacity, pleural effusion, or pneumothorax seen. The cardiac silhouette size is within normal limits. The osseous structures are intact. Minimal multilevel dege nerative changes of the spine are noted. IMPRESSION: No acute cardiopulmonary process.
[2018-08-11 13:19] LABS: Appearance,Urine Cloudy (Clear); Bacteria,Urine Rare /hpf; Bilirubin,Urine Negative (Negative); Blood,Urine Large (Negative); Color,Urine Light Red; Glucose,Urine (UA) Negative (Negative); Ketones,Urine Negative (Negative); Leukocyte Esterase,Urine Moderate (Negative); Mucus,Urine Few /hpf; Nitrite,Urine Negative (Negative); PH, Urine 5.5 (5.0-8.0); Protein,Urine 1+ (Negative); RBC,Urine 12 /hpf (0-5); Specific Gravity,Urine 1.022 (1.001-1.035); Sperm,Urine Rare /hpf; Squamous Epithelial Cell,Urine 20 /hpf (0-4); Urobilinogen,Urine <2.0 mg/dL (<2.0); WBC,Urine 20 /hpf (0-5)
[2018-08-11] MEDS ORDERED: NALOXONE 0.4 MG/ML 1 ML VIAL IV PRN (13:48)
--- NOTE | 2018-08-11 13:52 | ED ---
General Adult HPI - General Chief complaint: Weakness Stated complaint: MS flare up Time Seen by Provider: 08/11/18 10:16 Source: patient, RN notes reviewed, old records reviewed Mode of arrival: EMS Limitations: no limitations - History of Present Illness Initial comments: 38-year-old female presenting for evaluation of generalized weakness, headache, concern for MS exacerbation. Patient states her symptoms have progressed over the past 4 days. She states her symptoms are typical of her MS exacerbation. She is not currently on steroids. She does report bilateral upper extremity pain associated with her symptoms. Denies chest pain or shortness of breath. She reports mild cough. No fever. No abdominal pain nausea vomiting. Symptoms seem to be worse on the left which is typical of her exacerbation. She is following with neurology. - Related Data Home Medications Medication Instructions Recorded Confirmed Albuterol Inhaler [Ventolin Hfa 2 puff INHALATION RT-QID PRN 12/09/13 08/11/18 Inhaler] Ipratropium/Albuterol Sulfate 1 puff INHALATION RT-QID PRN 12/09/13 08/11/18 [Combivent Respimat Inhaler] Albuterol Nebulized [Ventolin 2.5 mg INHALATION RT-QID PRN 01/26/18 08/11/18 Nebulized] Diazepam [Valium] 5 mg PO BID PRN 05/24/18 08/11/18 Lisinopril [Zestril] 10 mg PO DAILY 05/24/18 08/11/18 Metaxalone [Skelaxin] 400 mg PO TID 08/11/18 08/11/18 Allergies Allergy/AdvReac Type Severity Reaction Status Date / Time amoxicillin [Amoxicillin] Allergy Severe Anaphylaxis, Verified 08/11/18 10:27 seizures ciprofloxacin [From Cipro] Allergy Severe Rash/Hives, Verified 08/11/18 10:27 seizures codeine phosphate Allergy Unknown Rash/Hives Verified 08/11/18 10:27 [From Tylenol-Codeine #3] cefuroxime axetil Allergy Rash/Hives Verified 08/11/18 10:27 [From Ceftin] ketorolac [From Toradol] Allergy Rash/Hives Verified 08/11/18 10:27 latex Allergy Rash/Hives Verified 08/11/18 10:27 NSAIDS (Non-Steroidal Allergy Rash/Hives/Lip Verified 08/11/18 10:27 Anti-Inflamma Swelling Review of Systems ROS Statement: Those systems with pertinent positive or pertinent negative responses have been documented in the HPI. ROS Other: All systems not noted in ROS Statement are negative. Past Medical History Past Medical History: Asthma, Fibromyalgia, GERD/Reflux, Hypertension, Musculoskeletal Disorder, Neurologic Disorder, Pneumonia, Seizure Disorder Additional Past Medical History / Comment(s): Pt recently admitted to [facility] on with weakness bilateral legs/possible MS exacerbation. Other hx: Multiple Sclerosis, migraines, DJD, interstitial cystitis, UTI, PCOS, vit D deficiency, bilateral optic neuritis with visual problems, generalized chronic pain, numbness/tingling bilateral lower legs, tachycardia, c-diff 5-9-15, History of Any Multi-Drug Resistant Organisms: None Reported Date of last positivie culture/infection: None MDRO Source:: None Past Surgical History: Cholecystectomy, Orthopedic Surgery Additional Past Surgical History / Comment(s): Lt shoulder rotator cuff repair 06/06/14 @ [facility] pt has since re-torn, L shoulder arthroscopy and pt believes capsular replacement, arthroscopic left knee 2000 & 2002. Past Anesthesia/Blood Transfusion Reactions: No Reported Reaction Additional Past Anesthesia/Blood Transfusion Reaction / Comment(s): Pt has never recieved blood. Past Psychological History: Anxiety, Depression Smoking Status: Former smoker Past Alcohol Use History: None Reported Past Drug Use History: None Reported - Past Family History Mother Family Medical History: No Reported History Additional Family Medical History / Comment(s): mother is healthy Father Family Medical History: Hypertension General Exam Limitations: no limitations General appearance: alert, in no apparent distress Head exam: Present: atraumatic, normocephalic Eye exam: Present: normal appearance, PERRL, EOMI ENT exam: Present: normal exam Neck exam: Present: normal inspection. Absent: tenderness, meningismus Respiratory exam: Present: normal lung sounds bilaterally. Absent: respiratory distress, wheezes Cardiovascular Exam: Present: regular rate, normal rhythm GI/Abdominal exam: Present: soft. Absent: distended, tenderness Extremities exam: Present: normal inspection, normal capillary refill. Absent: pedal edema, calf tenderness Neurological exam: Present: alert, oriented X3, CN II-XII intact, motor sensory deficit (Slight drift left upper extremity) Psychiatric exam: Present: normal affect, normal mood Skin exam: Present: warm, dry, intact. Absent: cyanosis, diaphoretic Course Vital Signs 08/11/18 08/11/18 09:33 10:43 Temperature 98.1 F Pulse Rate 76 92 Respiratory 20 18 Rate Blood Pressure 118/82 125/82 O2 Sat by Pulse 100 97 Oximetry Medical Decision Making - Lab Data Result diagrams: 08/11/18 09:39 08/11/18 09:39 Lab Results 08/11/18 08/11/18 08/11/18 Range/Units 09:39 09:39 09:39 WBC 13.5 H (3.8-10.6) k/uL RBC 4.42 (3.80-5.40) m/uL Hgb 13.2 (11.4-16.0) gm/dL Hct 38.8 (34.0-46.0) % MCV 88.0 (80.0-100.0) fL MCH 29.9 (25.0-35.0) pg MCHC 34.0 (31.0-37.0) g/dL RDW 13.2 (11.5-15.5) % Plt Count 405 (150-450) k/uL Neutrophils % 72 % Lymphocytes % 15 % Monocytes % 8 % Eosinophils % 4 % Basophils % 1 % Neutrophils # 9.7 H (1.3-7.7) k/uL Lymphocytes # 2.0 (1.0-4.8) k/uL Monocytes # 1.0 (0-1.0) k/uL Eosinophils # 0.5 (0-0.7) k/uL Basophils # 0.1 (0-0.2) k/uL PT (9.0-12.0) sec INR (<1.2) APTT (22.0-30.0) sec Sodium 140 (137-145) mmol/L Potassium 4.2 (3.5-5.1) mmol/L Chloride 108 H (98-107) mmol/L Carbon Dioxide 23 (22-30) mmol/L Anion Gap 9 mmol/L BUN 11 (7-17) mg/dL Creatinine 0.62 (0.52-1.04) mg/dL Est GFR (CKD-EPI)AfAm >90 (>60 ml/min/1.73 sqM) Est GFR (CKD-EPI)NonAf >90 (>60 ml/min/1.73 sqM) Glucose 89 (74-99) mg/dL Calcium 9.1 (8.4-10.2) mg/dL Magnesium 1.9 (1.6-2.3) mg/dL Total Bilirubin 0.3 (0.2-1.3) mg/dL AST 25 (14-36) U/L ALT 25 (9-52) U/L Alkaline Phosphatase 43 (38-126) U/L Total Creatine Kinase 125 (30-135) U/L CK-MB (CK-2) 1.2 (0.0-2.4) ng/mL CK-MB (CK-2) Rel Index 1.0 Troponin I <0.012 (0.000-0.034) ng/mL Total Protein 6.4 (6.3-8.2) g/dL Albumin 4.0 (3.5-5.0) g/dL Urine Color Urine Appearance (Clear) Urine pH (5.0-8.0) Ur Specific [place] (1.001-1.035) Urine Protein (Negative) Urine Glucose (UA) (Negative) Urine Ketones (Negative) Urine Blood (Negative) Urine Nitrite (Negative) Urine Bilirubin (Negative) Urine Urobilinogen (<2.0) mg/dL Ur Leukocyte Esterase (Negative) Urine RBC (0-5) /hpf Urine WBC (0-5) /hpf Ur Squamous Epith Cells (0-4) /hpf Urine Bacteria (None) /hpf Urine Mucus (None) /hpf Urine Sperm (None) /hpf Urine HCG, Qual (Not Detectd) 08/11/18 08/11/18 08/11/18 Range/Units 09:39 12:40 12:40 WBC (3.8-10.6) k/uL RBC (3.80-5.40) m/uL Hgb (11.4-16.0) gm/dL Hct (34.0-46.0) % MCV (80.0-100.0) fL MCH (25.0-35.0) pg MCHC (31.0-37.0) g/dL RDW (11.5-15.5) % Plt Count (150-450) k/uL Neutrophils % % Lymphocytes % % Monocytes % % Eosinophils % % Basophils % % Neutrophils # (1.3-7.7) k/uL Lymphocytes # (1.0-4.8) k/uL Monocytes # (0-1.0) k/uL Eosinophils # (0-0.7) k/uL Basophils # (0-0.2) k/uL PT 10.1 (9.0-12.0) sec INR 0.9 (<1.2) APTT 23.8 (22.0-30.0) sec Sodium (137-145) mmol/L Potassium (3.5-5.1) mmol/L Chloride (98-107) mmol/L Carbon Dioxide (22-30) mmol/L Anion Gap mmol/L BUN (7-17) mg/dL Creatinine (0.52-1.04) mg/dL Est GFR (CKD-EPI)AfAm (>60 ml/min/1.73 sqM) Est GFR (CKD-EPI)NonAf (>60 ml/min/1.73 sqM) Glucose (74-99) mg/dL Calcium (8.4-10.2) mg/dL Magnesium (1.6-2.3) mg/dL Total Bilirubin (0.2-1.3) mg/dL AST (14-36) U/L ALT (9-52) U/L Alkaline Phosphatase (38-126) U/L Total Creatine Kinase (30-135) U/L CK-MB (CK-2) (0.0-2.4) ng/mL CK-MB (CK-2) Rel Index Troponin I (0.000-0.034) ng/mL Total Protein (6.3-8.2) g/dL Albumin (3.5-5.0) g/dL Urine Color Light Red Urine Appearance Cloudy H (Clear) Urine pH 5.5 (5.0-8.0) Ur Specific [place] 1.022 (1.001-1.035) Urine Protein 1+ H (Negative) Urine Glucose (UA) Negative (Negative) Urine Ketones Negative (Negative) Urine Blood Large H (Negative) Urine Nitrite Negative (Negative) Urine Bilirubin Negative (Negative) Urine Urobilinogen <2.0 (<2.0) mg/dL Ur Leukocyte Esterase Moderate H (Negative) Urine RBC 12 H (0-5) /hpf Urine WBC 20 H (0-5) /hpf Ur Squamous Epith Cells 20 H (0-4) /hpf Urine Bacteria Rare H (None) /hpf Urine Mucus Few H (None) /hpf Urine Sperm Rare (None) /hpf Urine HCG, Qual Not Detected (Not Detectd) Disposition Clinical Impression: Multiple sclerosis, relapsing-remitting, Exacerbation of multiple sclerosis Disposition: ADMITTED IP TO THIS [facility] Condition: Stable Is patient prescribed a controlled substance at d/c from ED?: No Referrals: Neno Quinones MD [Primary Care Provider] - 1-2 days Time of Disposition: 13:53
[2018-08-11 14:38] VITALS: BP 129/98; PULSE 90; RESP 16
[2018-08-11] MEDS ORDERED: HYDROcodone/APAP 5-325MG 1 EACH TAB PO PRN (15:13)
[2018-08-11] MEDS ORDERED: ACETAMINOPHEN TAB 325 MG TAB PO PRN (15:13)
[2018-08-11] MEDS ORDERED: MORPHINE SULFATE 4 MG/ML SYRINGE IVP PRN (15:14)
[2018-08-11 15:20] VITALS: BMI 35.5
--- NOTE | 2018-08-11 17:53 | P.PN ---
Progress Note - Text this patient was seen and examined on the floor in her room regarding admission for possible MS exacerbation. patient chart review shows multiple admissions for similar problems and patient habits to leave AGAINST MEDICAL ADVICE when she is denied IV morphine or IV Dilaudid.Patient stated that she had has had diagnosis of MS for 10 years and that she's been to multiple different treatments without any improvement. She also states that she usually does not have any weaknesses or numbness and she normally ambulates without any cane or walker and that she is fairly mobile except she gets exacerbations like this time. This time she complained that she is weak on her left side, left arm and left leg that started suddenly and is also accompanied by severe numbness in pain 10 out of 10 present in her left arm and from her waist up but then also she states that presents the pain is present all over her body. She states that she gets exacerbation of MS she gets these pains all over and the pain only resolves to IV morphine or IV Dilaudid. Patient denies any urinary or stool incontinence. Denies any blurred or double vision today SHE noticed she might have had that yesterday. Denies any facial weakness slurred speech headaches vertigo lightheadedness chest pain shortness of breath nausea or vomiting. She states that her neurologist is Dr. Olivares from [place] but she is not seeing him anymore. On physical examination patient is awake and alert and oriented 3 next it was noted that prior to arrival to her room she was crying and sobbing and upon my be entering into the room she stopped crying and sobbing and she was actually quite enthusiastic and comfortable while giving me the history above mentioned. Her head and neck examination is quite unremarkable there's no facial asymmetry eyes are without any icterus or redness moist oral mucosa without any lesions neck is without any masses venous pulsations or lymphadenopathy or thyromegaly Lungs are clear to auscultation and her breathing is nonlabored there is no any wheezing or crackles Cardiovascular is regular rhythm and rate S1-S2 no murmurs rubs or gallops Abdomen obese soft nontender nondistended positive bowel sounds no CVA tenderness Extremities without any edema erythema warmth or tenderness joints are without any swelling Skin is without any rashes back without any point tenderness Dorsalis pedis pulses and radial pulses are really palpable and symmetrical On neurological exam cranial nerves II-12 are intact her speech is fluent and coherent intact pupils are round reactive to light there is no facial asymmetry tongue protrudes in midline Motor strength is normal 5 out of 5 in the right side than the left side patient trying to put some effort but claims that her left arm and left leg are weak and she can barely move them Sensitivity exam showing preserved feeling for light touch on the upper extremities and lower extremities (right symmetrical There is no clonus in ankles DTRs are 1+ in patellar and symmetrical there is no increased tone or rigidity and or tremor and there is no asterixis gait was not tested as cerebellar on the right finger to nose is normal on the left she claims she cannot move her arm psychiatric: Patient does not appear depressed denies depression or any suicidal or homicidal ideation Patient emergency department underwent CT of the head that was stable blood work that was unremarkable and received IV dose of Solu-Medrol and admitted for neurological evaluation I discussed with patient in detail that I will order oral pain medications for her but we will stay away from IV morphine and Dilaudid. interestingly while I was explaining this to her patient was trying to show me where she has a pain with her left arm that supposedly supposed to be weak. Subsequently after I left I was notified by nursing staff that patient decided to leave AGAINST MEDICAL ADVICE. per Nursing staff patient is up and ambulating in the room without any difficulties.I personally observed the patient in the room who was sitting at the edge of the bed and moving her both lower extremities without any difficulties and she was using her cell phone holding it in her left arm and typing with her right arm and did not seem to that she has any obvious weakness in her extremities. Patient sign AMA document and left the hospital. She left the hospital walking.
--- NOTE | 2018-08-11 18:33 | P.HPIM ---
History of Present Illness Chief Complaint: left-sided weakness this patient was seen and examined on the floor in her room regarding admission for possible MS exacerbation. patient chart review shows multiple admissions for similar problems and patient habits to leave AGAINST MEDICAL ADVICE when she is denied IV morphine or IV Dilaudid.Patient stated that she had has had diagnosis of MS for 10 years and that she's been to multiple different treatments without any improvement. She also states that she usually does not have any weaknesses or numbness and she normally ambulates without any cane or walker and that she is fairly mobile except she gets exacerbations like this time. This time she complained that she is weak on her left side, left arm and left leg that started suddenly and is also accompanied by severe numbness in pain 10 out of 10 present in her left arm and from her waist up but then also she states that presents the pain is present all over her body. She states that she gets exacerbation of MS she gets these pains all over and the pain only resolves to IV morphine or IV Dilaudid. Patient denies any urinary or stool incontinence. Denies any blurred or double vision today SHE noticed she might have had that yesterday. Denies any facial weakness slurred speech headaches vertigo lightheadedness chest pain shortness of breath nausea or vomiting. She states that her neurologist is Dr. Olivares from [place] but she is not seeing him anymore. On physical examination patient is awake and alert and oriented 3 next it was noted that prior to arrival to her room she was crying and sobbing and upon my be entering into the room she stopped crying and sobbing and she was actually quite enthusiastic and comfortable while giving me the history above mentioned. Review of Systems 12 point review of system was performed and negative except mentioned in HPI Past Medical History Past Medical History: Asthma, Fibromyalgia, GERD/Reflux, Hypertension, Musculoskeletal Disorder, Neurologic Disorder, Pneumonia, Seizure Disorder Additional Past Medical History / Comment(s): Pt recently admitted to [facility] on with weakness bilateral legs/possible MS exacerbation. Other hx: Multiple Sclerosis, migraines, DJD, interstitial cystitis, UTI, PCOS, vit D deficiency, bilateral optic neuritis with visual problems, generalized chronic pain, numbness/tingling bilateral lower legs, tachycardia, c-diff 5-9-15, History of Any Multi-Drug Resistant Organisms: None Reported Date of last positivie culture/infection: None MDRO Source:: None Past Surgical History: Cholecystectomy, Orthopedic Surgery Additional Past Surgical History / Comment(s): Lt shoulder rotator cuff repair 06/06/14, arthroscopic left knee 2000 & 2002, left shoulder reconstruction Past Anesthesia/Blood Transfusion Reactions: No Reported Reaction Additional Past Anesthesia/Blood Transfusion Reaction / Comment(s): Pt has never recieved blood. Past Psychological History: Anxiety, Depression Additional Psychological History / Comment(s): patient denies depression. depression noted in past medical history from 04/2018 Smoking Status: Former smoker Past Alcohol Use History: None Reported Additional Past Alcohol Use History / Comment(s): STARTED SMOKING AGE 17 and quit in 2017 but is using vapor cigarette somedays. Patient denies any medical marijuana, marijuana, street drug use. She denies any alcohol use or abuse. Patient is and lives with her and one child. No recent travel. Patient is on disability. Past Drug Use History: None Reported - Past Family History Mother Family Medical History: No Reported History Additional Family Medical History / Comment(s): mother is healthy Father Family Medical History: Hypertension Medications and Allergies Home Medications Medication Instructions Recorded Confirmed Type Albuterol Inhaler [Ventolin Hfa 2 puff INHALATION RT-QID PRN 12/09/13 08/11/18 History Inhaler] Ipratropium/Albuterol Sulfate 1 puff INHALATION RT-QID PRN 12/09/13 08/11/18 History [Combivent Respimat Inhaler] Albuterol Nebulized [Ventolin 2.5 mg INHALATION RT-QID PRN 01/26/18 08/11/18 History Nebulized] Diazepam [Valium] 5 mg PO BID PRN 05/24/18 08/11/18 History Lisinopril [Zestril] 10 mg PO DAILY 05/24/18 08/11/18 History Metaxalone [Skelaxin] 400 mg PO TID 08/11/18 08/11/18 History Allergies Allergy/AdvReac Type Severity Reaction Status Date / Time amoxicillin [Amoxicillin] Allergy Severe Anaphylaxis, Verified 08/11/18 10:27 seizures ciprofloxacin [From Cipro] Allergy Severe Rash/Hives, Verified 08/11/18 10:27 seizures codeine phosphate Allergy Unknown Rash/Hives Verified 08/11/18 10:27 [From Tylenol-Codeine #3] cefuroxime axetil Allergy Rash/Hives Verified 08/11/18 10:27 [From Ceftin] ketorolac [From Toradol] Allergy Rash/Hives Verified 08/11/18 10:27 latex Allergy Rash/Hives Verified 08/11/18 10:27 NSAIDS (Non-Steroidal Allergy Rash/Hives/Lip Verified 08/11/18 10:27 Anti-Inflamma Swelling Physical Exam Vitals: Vital Signs Temp Pulse Resp BP Pulse Ox 08/11/18 14:36 90 16 129/98 99 08/11/18 10:43 92 18 125/82 97 08/11/18 09:33 98.1 F 76 20 118/82 100 Intake and Output 08/11/18 08/11/18 08/11/18 06:59 14:59 22:59 Other: Weight 99.79 kg 99.79 kg Her head and neck examination is quite unremarkable there's no facial asymmetry eyes are without any icterus or redness moist oral mucosa without any lesions neck is without any masses venous pulsations or lymphadenopathy or thyromegaly Lungs are clear to auscultation and her breathing is nonlabored there is no any wheezing or crackles Cardiovascular is regular rhythm and rate S1-S2 no murmurs rubs or gallops Abdomen obese soft nontender nondistended positive bowel sounds no CVA tenderness Extremities without any edema erythema warmth or tenderness joints are without any swelling Skin is without any rashes back without any point tenderness Dorsalis pedis pulses and radial pulses are really palpable and symmetrical On neurological exam cranial nerves II-12 are intact her speech is fluent and coherent intact pupils are round reactive to light there is no facial asymmetry tongue protrudes in midline Motor strength is normal 5 out of 5 in the right side than the left side patient trying to put some effort but claims that her left arm and left leg are weak and she can barely move them Sensitivity exam showing preserved feeling for light touch on the upper extremities and lower extremities (right symmetrical There is no clonus in ankles DTRs are 1+ in patellar and symmetrical there is no increased tone or rigidity and or tremor and there is no asterixis gait was not tested as cerebellar on the right finger to nose is normal on the left she claims she cannot move her arm psychiatric: Patient does not appear depressed denies depression or any suicidal or homicidal ideation Results CBC & Chem 7: 08/11/18 09:39 08/11/18 09:39 Labs: Abnormal Lab Results - Last 24 Hours (Table) 08/11/18 08/11/18 08/11/18 Range/Units 09:39 09:39 12:40 WBC 13.5 H (3.8-10.6) k/uL Neutrophils # 9.7 H (1.3-7.7) k/uL Chloride 108 H (98-107) mmol/L Urine Appearance Cloudy H (Clear) Urine Protein 1+ H (Negative) Urine Blood Large H (Negative) Ur Leukocyte Esterase Moderate H (Negative) Urine RBC 12 H (0-5) /hpf Urine WBC 20 H (0-5) /hpf Ur Squamous Epith Cells 20 H (0-4) /hpf Urine Bacteria Rare H (None) /hpf Urine Mucus Few H (None) /hpf Thrombosis Risk Factor Assmnt - Choose All That Apply Any of the Below Risk Factors Present?: Yes Each Factor Represents 1 point: Obesity (BMI >25) Thrombosis Risk Factor Assessment Total Risk Factor Score: 1 Thrombosis Risk Factor Assessment Level: Low Risk Assessment and Plan Assessment: Patient emergency department underwent CT of the head that was stable blood work that was unremarkable and received IV dose of Solu-Medrol and admitted for neurological evaluation I discussed with patient in detail that I will order oral pain medications for her but we will stay away from IV morphine and Dilaudid. interestingly while I was explaining this to her patient was trying to show me where she has a pain with her left arm that supposedly supposed to be weak. Subsequently after I left I was notified by nursing staff that patient decided to leave AGAINST MEDICAL ADVICE. per Nursing staff patient is up and ambulating in the room without any difficulties.I personally observed the patient in the room who was sitting at the edge of the bed and moving her both lower extremities without any difficulties and she was using her cell phone holding it in her left arm and typing with her right arm and did not seem to that she has any obvious weakness in her extremities. Patient sign AMA document and left the hospital. She left the hospital walking. please disregard my progress note as I entered the wrong document type trying to perform actually history and physical Please note that this history and physical documented will serve as a discharge summary as patient left while working on this document
== END 2018-08-11 16:30 | disposition left against medical advice (07) ==
LOC: EC 09:31 → 4SSUR 14:00
PROVIDERS: ADMIT Internal Medicine; ATTEND Internal Medicine
DX: G35 Multiple sclerosis (principal); M79.7 Fibromyalgia; K21.9 Gastro-esophageal reflux disease without esophagitis; J45.909 Unspecified asthma, uncomplicated; I10 Essential (primary) hypertension; G40.909 Epilepsy, unspecified, not intractable, without status epilepticus; N30.10 Interstitial cystitis (chronic) without hematuria; E28.2 Polycystic ovarian syndrome; M19.90 Unspecified osteoarthritis, unspecified site; G89.29 Other chronic pain; F41.9 Anxiety disorder, unspecified; F32.9 Major depressive disorder, single episode, unspecified; R20.0 Anesthesia of skin; F17.290 Nicotine dependence, other tobacco product, uncomplicated; E66.9 Obesity, unspecified; Z68.35 Body mass index [BMI] 35.0-35.9, adult; G43.909 Migraine, unspecified, not intractable, without status migrainosus; E55.9 Vitamin D deficiency, unspecified; Z79.899 Other long term (current) drug therapy; Z88.6 Allergy status to analgesic agent; Z88.1 Allergy status to other antibiotic agents; Z88.5 Allergy status to narcotic agent; Z88.0 Allergy status to penicillin; Z87.440 Personal history of urinary (tract) infections; Z86.69 Personal history of other diseases of the nervous system and sense organs; Z87.01 Personal history of pneumonia (recurrent); Z90.49 Acquired absence of other specified parts of digestive tract; Z82.49 Family history of ischemic heart disease and other diseases of the circulatory system
CPT/HCPCS: 96376; 96365; 96375; 99285; 36415; 80053; 82550; 82553; 83735; 84484; 85025; 85610; 85730; 81001; 81025; 71046; G0378; J2270; J2930; J2405

== ENCOUNTER 2018-08-25 14:57 | Emergency (ER) | payer MEDICARE, OTHER ==
[2018-08-25] MEDS ORDERED: HYDROmorphone 1 MG/ML 1 ML SYRINGE IVP STA ×2 (16:22→20:27)
[2018-08-25] MEDS ORDERED: PANTOPRAZOLE 40 MG/10 ML VIAL IVP STA (16:22)
[2018-08-25] MEDS ORDERED: SODIUM CHLORIDE 0.9% 1,000 ML IV STA (16:22)
[2018-08-25] MEDS ORDERED: ONDANSETRON 4 MG/2 ML VIAL IVP STA (16:22)
--- NOTE | 2018-08-25 16:29 | ED ---
General Adult HPI - General Chief complaint: Nausea/Vomiting/Diarrhea Stated complaint: MS Flare up Time Seen by Provider: 08/25/18 16:12 Source: patient, RN notes reviewed Mode of arrival: wheelchair Limitations: no limitations - History of Present Illness Initial comments: Patient is a pleasant 38-year-old female presenting to the emergency Department with complaints of concerns for MS flareup. Patient states symptoms started 3- 4 days ago. Patient felt symptoms might be getting better yesterday and then worsened again since today. Patient complains of generalized bodyaches. Patient has associated nausea and vomiting. has weakness of her left side. Patient has some mild blurred vision. Patient states symptoms are similar is previous similar flareups. Patient states she has had symptoms at least 30 times previously including weakness. Patient has had multiple evaluations including computed tomography scan and MRI scan. Patient does have a neurologist out of town. - Related Data Home Medications Medication Instructions Recorded Confirmed Albuterol Inhaler [Ventolin Hfa 2 puff INHALATION RT-QID PRN 12/09/13 08/25/18 Inhaler] Ipratropium/Albuterol Sulfate 1 puff INHALATION RT-QID PRN 12/09/13 08/25/18 [Combivent Respimat Inhaler] Albuterol Nebulized [Ventolin 2.5 mg INHALATION RT-QID PRN 01/26/18 08/25/18 Nebulized] Diazepam [Valium] 5 mg PO BID PRN 05/24/18 08/25/18 Lisinopril [Zestril] 10 mg PO DAILY 05/24/18 08/25/18 Metaxalone [Skelaxin] 400 mg PO TID 08/11/18 08/25/18 Previous Rx's Medication Instructions Recorded methylPREDNISolone Dose Pack 24 mg PO DAILY #1 tab 08/25/18 [Medrol Dose Pack] Allergies Allergy/AdvReac Type Severity Reaction Status Date / Time amoxicillin [Amoxicillin] Allergy Severe Anaphylaxis, Verified 08/25/18 16:14 seizures ciprofloxacin [From Cipro] Allergy Severe Rash/Hives, Verified 08/25/18 16:14 seizures codeine phosphate Allergy Unknown Rash/Hives Verified 08/25/18 16:14 [From Tylenol-Codeine #3] cefuroxime axetil Allergy Rash/Hives Verified 08/25/18 16:14 [From Ceftin] ketorolac [From Toradol] Allergy Rash/Hives Verified 08/25/18 16:14 latex Allergy Rash/Hives Verified 08/25/18 16:14 NSAIDS (Non-Steroidal Allergy Rash/Hives/Lip Verified 08/25/18 16:14 Anti-Inflamma Swelling Review of Systems ROS Statement: Those systems with pertinent positive or pertinent negative responses have been documented in the HPI. ROS Other: All systems not noted in ROS Statement are negative. Constitutional: Denies: fever Eyes: Reports: vision change (Minimal blurred vision). Denies: eye pain ENT: Denies: ear pain Respiratory: Denies: cough, dyspnea Cardiovascular: Denies: chest pain Endocrine: Reports: fatigue Gastrointestinal: Reports: nausea, vomiting. Denies: abdominal pain Genitourinary: Denies: dysuria Musculoskeletal: Denies: back pain Skin: Denies: rash Neurological: Reports: as per HPI, weakness. Denies: confusion Past Medical History Past Medical History: Asthma, Fibromyalgia, GERD/Reflux, Hypertension, Musculoskeletal Disorder, Neurologic Disorder, Pneumonia, Seizure Disorder Additional Past Medical History / Comment(s): Pt recently admitted to [facility] on with weakness bilateral legs/possible MS exacerbation. Other hx: Multiple Sclerosis, migraines, DJD, interstitial cystitis, UTI, PCOS, vit D deficiency, bilateral optic neuritis with visual problems, generalized chronic pain, numbness/tingling bilateral lower legs, tachycardia, c-diff 5-9-15, History of Any Multi-Drug Resistant Organisms: None Reported Date of last positivie culture/infection: None MDRO Source:: None Past Surgical History: Cholecystectomy, Orthopedic Surgery Additional Past Surgical History / Comment(s): Lt shoulder rotator cuff repair 06/06/14, arthroscopic left knee 2000 & 2002, left shoulder reconstruction Past Anesthesia/Blood Transfusion Reactions: No Reported Reaction Additional Past Anesthesia/Blood Transfusion Reaction / Comment(s): Pt has never recieved blood. Past Psychological History: Anxiety, Depression, Depression Smoking Status: Former smoker Past Alcohol Use History: None Reported Past Drug Use History: None Reported - Past Family History Mother Family Medical History: No Reported History Additional Family Medical History / Comment(s): mother is healthy Father Family Medical History: Hypertension General Exam Limitations: no limitations General appearance: alert, in no apparent distress Head exam: Present: atraumatic Eye exam: Present: normal appearance, PERRL, EOMI. Absent: nystagmus ENT exam: Present: normal oropharynx Neck exam: Present: normal inspection Respiratory exam: Present: normal lung sounds bilaterally Cardiovascular Exam: Present: regular rate, normal rhythm GI/Abdominal exam: Present: soft. Absent: tenderness Extremities exam: Present: normal inspection Back exam: Present: normal inspection Neurological exam: Present: alert, oriented X3, CN II-XII intact Expanded Neurological exam: Present: protecting the airway Speech: Present: fluid speech Cranial nerves: EOM's Intact: Normal Sensory exam: Lower Extremity Light Touch: Normal Motor strength exam: RUE: 5, LUE: 4, RLE: 5, LLE: 4 Eye Response: (4) open spontaneously Motor Response: (6) obeys commands Verbal Response: (5) oriented Psychiatric exam: Present: normal affect, normal mood Skin exam: Present: normal color Course Vital Signs 08/25/18 15:02 Temperature 98.2 F Pulse Rate 94 Respiratory 18 Rate Blood Pressure 123/89 O2 Sat by Pulse 100 Oximetry Medical Decision Making - Medical Decision Making Patient reevaluated and is somewhat improved. Patient has approximately 40-50% improvement of strength with left arm and left leg. Patient still has discomfort and nausea. Patient did vomit a little bit in the emergency department. Patient is comfortable with discharge home. Patient is offered transfer for neurological services since this is not available here at this time however refuses. Patient states she does have an appointment with her neurologist who is out of town on and will keep that. Patient is receptive to steroid prescription and states she is having Medrol Dosepak in the past. Patient does request nausea and pain medicine prior to discharge. White blood cell count is elevated however patient has been vomiting. No fever or sign of infection present. - Lab Data Result diagrams: 08/25/18 16:05 08/25/18 16:05 Lab Results 08/25/18 08/25/18 08/25/18 Range/Units 16:05 16:05 18:45 WBC 21.1 H (3.8-10.6) k/uL RBC 4.62 (3.80-5.40) m/uL Hgb 13.6 (11.4-16.0) gm/dL Hct 40.9 (34.0-46.0) % MCV 88.5 (80.0-100.0) fL MCH 29.4 (25.0-35.0) pg MCHC 33.3 (31.0-37.0) g/dL RDW 12.9 (11.5-15.5) % Plt Count 378 (150-450) k/uL Neutrophils % 82 % Lymphocytes % 12 % Monocytes % 4 % Eosinophils % 2 % Basophils % 0 % Neutrophils # 17.2 H (1.3-7.7) k/uL Lymphocytes # 2.5 (1.0-4.8) k/uL Monocytes # 0.8 (0-1.0) k/uL Eosinophils # 0.3 (0-0.7) k/uL Basophils # 0.1 (0-0.2) k/uL Sodium 140 (137-145) mmol/L Potassium 4.4 (3.5-5.1) mmol/L Chloride 106 (98-107) mmol/L Carbon Dioxide 22 (22-30) mmol/L Anion Gap 12 mmol/L BUN 15 (7-17) mg/dL Creatinine 0.65 (0.52-1.04) mg/dL Est GFR (CKD-EPI)AfAm >90 (>60 ml/min/1.73 sqM) Est GFR (CKD-EPI)NonAf >90 (>60 ml/min/1.73 sqM) Glucose 81 (74-99) mg/dL Calcium 10.1 (8.4-10.2) mg/dL Total Bilirubin 0.4 (0.2-1.3) mg/dL AST 22 (14-36) U/L ALT 32 (9-52) U/L Alkaline Phosphatase 47 (38-126) U/L Total Protein 6.7 (6.3-8.2) g/dL Albumin 4.4 (3.5-5.0) g/dL Amylase 45 (30-110) U/L Lipase 73 (23-300) U/L Urine Color Red Urine Appearance Cloudy H (Clear) Urine pH 5.5 (5.0-8.0) Ur Specific [place] 1.022 (1.001-1.035) Urine Protein Negative (Negative) Urine Glucose (UA) Negative (Negative) Urine Ketones 2+ H (Negative) Urine Blood Negative (Negative) Urine Nitrite Negative (Negative) Urine Bilirubin Negative (Negative) Urine Urobilinogen <2.0 (<2.0) mg/dL Ur Leukocyte Esterase Moderate H (Negative) Urine RBC 9 H (0-5) /hpf Urine WBC 5 (0-5) /hpf Ur Squamous Epith Cells 26 H (0-4) /hpf Urine Mucus Rare H (None) /hpf - Radiology Data Radiology results: image reviewed (Chest x-ray shows no acute process) Disposition Clinical Impression: Multiple sclerosis exacerbation Disposition: HOME SELF-CARE Condition: Stable Instructions: Acute Nausea and Vomiting (ED), Multiple Sclerosis (DC) Additional Instructions: Please follow-up with your neurologist as scheduled. Please call your neurologist tomorrow. Please also follow-up with primary care physician this week. Return for increased weakness, visual problems, uncontrolled vomiting, fevers, worsening or changing symptoms or other concerns. Prescriptions: methylPREDNISolone Dose Pack [Medrol Dose Pack] 24 mg PO DAILY #1 tab Is patient prescribed a controlled substance at d/c from ED?: No Referrals: Sj Fitch MD [Primary Care Provider] - 1-2 days Time of Disposition: 20:26
[2018-08-25 16:58] LABS: Basophils # (A) 0.1 k/uL (0-0.2); Basophils % (A) 0 %; Eosinophils # (A) 0.3 k/uL (0-0.7); Eosinophils % (A) 2 %; HCT 40.9 % (34.0-46.0); HGB 13.6 gm/dL (11.4-16.0); Lymphocytes # (A) 2.5 k/uL (1.0-4.8); Lymphocytes % (A) 12 %; MCH 29.4 pg (25.0-35.0); MCHC 33.3 g/dL (31.0-37.0); MCV 88.5 fL (80.0-100.0); Mean Platelet Volume 7.5; Monocytes # (A) 0.8 k/uL (0-1.0); Monocytes % (A) 4 %; Neutrophils # (A) 17.2 k/uL (1.3-7.7); Neutrophils % (A) 82 %; Platelet Count 378 k/uL (150-450); RBC 4.62 m/uL (3.80-5.40); RDW 12.9 % (11.5-15.5); WBC 21.1 k/uL (3.8-10.6)
--- NOTE | 2018-08-25 17:08 | XR ---
EXAMINATION: XR chest 2V DATE AND TIME: 08/25/2018 4:56 PM CLINICAL INDICATION: PHH; abdominal pain TECHNIQUE: Departmental protocol COMPARISON: 08/11/2018 FINDINGS: The overlying soft tissues are prominent. The lungs are clear. The pleural spaces are negative. The cardiac silhouette is not enlarged. The remainder of the mediastinal silhouette is unremarkable. The skeletal structures and soft tissues are negative for acute findings. IMPRESSION: NO ACUTE PROCESS.
[2018-08-25 17:09] LABS: ALT 32 U/L (9-52); AST 22 U/L (14-36); Albumin 4.4 g/dL (3.5-5.0); Alkaline Phosphatase 47 U/L (38-126); Amylase 45 U/L (30-110); Anion Gap 12 mmol/L; Blood Urea Nitrogen 15 mg/dL (7-17); Calcium 10.1 mg/dL (8.4-10.2); Carbon Dioxide 22 mmol/L (22-30); Chloride 106 mmol/L (98-107); Glucose 81 mg/dL (74-99); Lipase 73 U/L (23-300); Potassium 4.4 mmol/L (3.5-5.1); Sodium 140 mmol/L (137-145); Total Bilirubin 0.4 mg/dL (0.2-1.3); Total Protein 6.7 g/dL (6.3-8.2)
[2018-08-25 19:02] LABS: Appearance,Urine Cloudy (Clear); Bilirubin,Urine Negative (Negative); Blood,Urine Negative (Negative); Color,Urine Red; Glucose,Urine (UA) Negative (Negative); Ketones,Urine 2+ (Negative); Leukocyte Esterase,Urine Moderate (Negative); Mucus,Urine Rare /hpf; Nitrite,Urine Negative (Negative); PH, Urine 5.5 (5.0-8.0); Protein,Urine Negative (Negative); RBC,Urine 9 /hpf (0-5); Specific Gravity,Urine 1.022 (1.001-1.035); Squamous Epithelial Cell,Urine 26 /hpf (0-4); Urobilinogen,Urine <2.0 mg/dL (<2.0); WBC,Urine 5 /hpf (0-5)
[2018-08-25] MEDS ORDERED: METOCLOPRAMIDE 5 MG/ML 2 ML VIAL IVP STA (20:27)
[2018-08-25 21:18] VITALS: BP 129/95; PULSE 96; RESP 19; TEMP 97.8
== END 2018-08-25 20:52 | disposition home or self-care (01) ==
LOC: EC 14:57
DX: G35 Multiple sclerosis (principal); D72.829 Elevated white blood cell count, unspecified; J45.909 Unspecified asthma, uncomplicated; I10 Essential (primary) hypertension; M79.7 Fibromyalgia; Z87.891 Personal history of nicotine dependence; Z90.49 Acquired absence of other specified parts of digestive tract; Z79.899 Other long term (current) drug therapy; Z88.0 Allergy status to penicillin; Z88.1 Allergy status to other antibiotic agents; Z88.5 Allergy status to narcotic agent; Z88.6 Allergy status to analgesic agent; Z91.040 Latex allergy status; Z53.29 Procedure and treatment not carried out because of patient's decision for other reasons
CPT/HCPCS: 99284; 96365; 96366; 96375 ×4; 96376; 96361; 36415; 80053; 82150; 83690; 85025; 81001; 71046; J2765; J2405; J2930; J1170; C9113

== ENCOUNTER → 2018-08-31 | Outpatient (CLI) | payer MEDICARE, OTHER ==
[2018-08-31 12:11] LABS: Basophils # (A) 0.1 k/uL (0-0.2); Basophils % (A) 0 %; Eosinophils # (A) 0.5 k/uL (0-0.7); Eosinophils % (A) 2 %; HCT 43.4 % (34.0-46.0); HGB 14.3 gm/dL (11.4-16.0); Lymphocytes # (A) 2.4 k/uL (1.0-4.8); Lymphocytes % (A) 12 %; MCH 29.4 pg (25.0-35.0); MCHC 32.9 g/dL (31.0-37.0); MCV 89.5 fL (80.0-100.0); Mean Platelet Volume 7.3; Monocytes # (A) 0.7 k/uL (0-1.0); Monocytes % (A) 3 %; Neutrophils # (A) 16.7 k/uL (1.3-7.7); Neutrophils % (A) 81 %; Platelet Count 373 k/uL (150-450); RBC 4.86 m/uL (3.80-5.40); RDW 13.1 % (11.5-15.5); WBC 20.7 k/uL (3.8-10.6)
== END | disposition home or self-care (01) ==
LOC: LABWHC1 10:49
PROVIDERS: ATTEND Nurse Practitioner Gerontology
DX: G35 Multiple sclerosis (principal)
CPT/HCPCS: 36415; 85025

== ENCOUNTER 2018-09-20 09:05 | Emergency (ER) | payer MEDICARE, OTHER ==
[2018-09-20 09:14] VITALS: RESP 18
[2018-09-20] MEDS ORDERED: SODIUM CHLORIDE 0.9% 1,000 ML IV STA (09:58)
--- NOTE | 2018-09-20 09:59 | ED ---
Weakness HPI - General Chief complaint: Weakness Stated complaint: ms flare, weakness Time Seen by Provider: 09/20/18 09:17 Source: patient, RN notes reviewed, old records reviewed Mode of arrival: ambulatory Limitations: no limitations - History of Present Illness Initial comments: This Patient is a 38-year-old female who presents emergency Department today with complaints of generalized weakness and concern for MS flareup. She complains of diffuse body pain which causes her to vomit. Patient states that she follows with the neurologist at [facility]. Patient states that she has not been on any recent steroids. Patient relates that she has had no fevers or chills. She denies any associated abdominal pain with her nausea and vomiting. Patient complains of increased blurry vision. She also states that she has progressive weakness within her right upper and lower extremity.Patient denies any recent fever, chills, shortness of breath, chest pain, back pain, abdominal pain, nausea vomiting, numbness or tingling, dysuria or hematuria, constipation or diarrhea, headaches or visual changes, or any other current symptoms - Related Data Home Medications Medication Instructions Recorded Confirmed Albuterol Inhaler [Ventolin Hfa 2 puff INHALATION RT-QID PRN 12/09/13 09/02/18 Inhaler] Ipratropium/Albuterol Sulfate 1 puff INHALATION RT-QID PRN 12/09/13 09/02/18 [Combivent Respimat Inhaler] Albuterol Nebulized [Ventolin 2.5 mg INHALATION RT-QID PRN 01/26/18 09/02/18 Nebulized] Diazepam [Valium] 5 mg PO BID PRN 05/24/18 09/02/18 Lisinopril [Zestril] 10 mg PO DAILY 05/24/18 09/02/18 Metaxalone [Skelaxin] 400 mg PO TID 08/11/18 09/02/18 Previous Rx's Medication Instructions Recorded methylPREDNISolone Dose Pack 24 mg PO DAILY #1 tab 08/25/18 [Medrol Dose Pack] Allergies Allergy/AdvReac Type Severity Reaction Status Date / Time amoxicillin [Amoxicillin] Allergy Severe Anaphylaxis, Verified 09/20/18 09:14 seizures ciprofloxacin [From Cipro] Allergy Severe Rash/Hives, Verified 09/20/18 09:14 seizures codeine phosphate Allergy Unknown Rash/Hives Verified 09/20/18 09:14 [From Tylenol-Codeine #3] cefuroxime axetil Allergy Rash/Hives Verified 09/20/18 09:14 [From Ceftin] ketorolac [From Toradol] Allergy Rash/Hives Verified 09/20/18 09:14 latex Allergy Rash/Hives Verified 09/20/18 09:14 NSAIDS (Non-Steroidal Allergy Rash/Hives/Lip Verified 09/20/18 09:14 Anti-Inflamma Swelling Review of Systems ROS Statement: Those systems with pertinent positive or pertinent negative responses have been documented in the HPI. ROS Other: All systems not noted in ROS Statement are negative. Past Medical History Past Medical History: Asthma, Fibromyalgia, GERD/Reflux, Hypertension, Musculoskeletal Disorder, Neurologic Disorder, Pneumonia, Seizure Disorder Additional Past Medical History / Comment(s): Multiple Sclerosis, migraines, DJD , interstitial cystitis, UTI, PCOS, vit D deficiency, bilateral optic neuritis with visual problems, generalized chronic pain, numbness/tingling bilateral lower legs, tachycardia, c-diff 5-9-15, History of Any Multi-Drug Resistant Organisms: None Reported Date of last positivie culture/infection: None MDRO Source:: None Past Surgical History: Cholecystectomy, Orthopedic Surgery Additional Past Surgical History / Comment(s): Lt shoulder rotator cuff repair 06/06/14, arthroscopic left knee 2000 & 2002, left shoulder reconstruction Past Anesthesia/Blood Transfusion Reactions: No Reported Reaction Additional Past Anesthesia/Blood Transfusion Reaction / Comment(s): Pt has never recieved blood. Past Psychological History: Anxiety, Depression, Depression Smoking Status: Former smoker - Past Family History Mother Family Medical History: No Reported History Additional Family Medical History / Comment(s): mother is healthy Father Family Medical History: Hypertension General Exam - General Exam Comments Initial Comments: 38-year-old female. Alert and oriented. Patient appears in no significant distress. Limitations: no limitations General appearance: alert, in no apparent distress Head exam: Present: atraumatic, normocephalic, normal inspection Eye exam: Present: normal appearance, PERRL, EOMI. Absent: scleral icterus, conjunctival injection, periorbital swelling ENT exam: Present: normal exam, mucous membranes moist Neck exam: Present: normal inspection. Absent: tenderness, meningismus, lymphadenopathy Respiratory exam: Present: normal lung sounds bilaterally. Absent: respiratory distress, wheezes, rales, rhonchi, stridor Cardiovascular Exam: Present: regular rate, normal rhythm, normal heart sounds. Absent: systolic murmur, diastolic murmur, rubs, gallop, clicks GI/Abdominal exam: Present: soft, normal bowel sounds. Absent: distended, tenderness, guarding, rebound, rigid Extremities exam: Present: normal inspection, full ROM, normal capillary refill. Absent: tenderness, pedal edema, joint swelling, calf tenderness Back exam: Present: normal inspection Neurological exam: Present: alert, oriented X3, CN II-XII intact, abnormal gait ( complains of weakness in the right lower extremity. Unable to ambulate. She is concerned for falls. She has a bedside commode to transfer to use the bathroom.) Expanded Patient oriented to: Present: person, place, time Speech: Present: fluid speech Cranial nerves: EOM's Intact: Normal Cerebellar function: Finger to Nose: Normal Sensory exam: Upper Extremity Light Touch: Normal, Lower Extremity Light Touch: Normal Motor strength exam: RUE: 4 (Patient is unable to perform full dredge master strength over the right hand.), LUE: 5, RLE: 4, LLE: 5 Eye Response: (4) open spontaneously Motor Response: (6) obeys commands Verbal Response: (5) oriented Elisabeth Total: 15 Psychiatric exam: Present: normal affect, normal mood Skin exam: Present: warm, dry, intact, normal color. Absent: rash Course Vital Signs 09/20/18 09/20/18 09/20/18 09:11 09:44 10:00 Temperature 98.5 F Pulse Rate 89 75 Respiratory 18 18 Rate Blood Pressure 134/74 101/67 O2 Sat by Pulse 98 96 97 Oximetry 09/20/18 09/20/18 09/20/18 10:30 11:00 11:30 Temperature Pulse Rate 72 76 77 Respiratory 19 18 18 Rate Blood Pressure 142/77 126/98 136/90 O2 Sat by Pulse 96 99 96 Oximetry EKG Findings - EKG Comments: EKG Findings:: Patient's EKG performed at 1044 shows sinus rhythm possible lateral infarct age undetermined. Abnormal EKG. Ventricular rate of 71 bpm. Intervals 114 ms. QRS ration 70. QTQTC 370/402 ms. Medical Decision Making - Medical Decision Making Josiah is a 38-year-old female well-known to emergency department 4 MS. Patient states that over the past few days she's had progressive flareup of weakness with in her right upper and lower extremity. She denies any headache. She does complain of some blurry vision. She states that this is similar to her previous MS flareups. She does have a decreased dredge master strength within the right hand. And was having difficulty with right leg left compared to the left side. Patient's labwork was reviewed today and unremarkable. I discussed risk and benefit of computed tomography scan that she's had multiple imaging studies. She states she typically gets admitted for steroids. At this time we do not have neurology at our facility. I discussed with Patient that she could be discharged with steroids and have outpatient follow-up with neurology or be transferred to another facility. When Patient was trying to and that she is a bathroom she almost fell due to the right leg weakness. Patient at this time will be transferred to [facility]. Accepting physician is Dr. Swan/. - Lab Data Result diagrams: 09/20/18 09:45 09/20/18 09:45 Lab Results 09/20/18 09/20/18 09/20/18 Range/Units 09:45 09:45 09:45 WBC 12.5 H (3.8-10.6) k/uL RBC 4.72 (3.80-5.40) m/uL Hgb 13.4 (11.4-16.0) gm/dL Hct 41.7 (34.0-46.0) % MCV 88.3 (80.0-100.0) fL MCH 28.4 (25.0-35.0) pg MCHC 32.1 (31.0-37.0) g/dL RDW 13.6 (11.5-15.5) % Plt Count 366 (150-450) k/uL Neutrophils % 74 % Lymphocytes % 17 % Monocytes % 4 % Eosinophils % 3 % Basophils % 0 % Neutrophils # 9.3 H (1.3-7.7) k/uL Lymphocytes # 2.1 (1.0-4.8) k/uL Monocytes # 0.5 (0-1.0) k/uL Eosinophils # 0.4 (0-0.7) k/uL Basophils # 0.1 (0-0.2) k/uL PT (9.0-12.0) sec INR (<1.2) APTT (22.0-30.0) sec Sodium 138 (137-145) mmol/L Potassium 5.0 (3.5-5.1) mmol/L Chloride 108 H (98-107) mmol/L Carbon Dioxide 22 (22-30) mmol/L Anion Gap 8 mmol/L BUN 11 (7-17) mg/dL Creatinine 0.58 (0.52-1.04) mg/dL Est GFR (CKD-EPI)AfAm >90 (>60 ml/min/1.73 sqM) Est GFR (CKD-EPI)NonAf >90 (>60 ml/min/1.73 sqM) Glucose 94 (74-99) mg/dL Plasma Lactic Acid Tom (0.7-2.0) mmol/L Calcium 9.6 (8.4-10.2) mg/dL Total Bilirubin 0.5 (0.2-1.3) mg/dL AST 24 (14-36) U/L ALT 27 (9-52) U/L Alkaline Phosphatase 44 (38-126) U/L Total Creatine Kinase 84 (30-135) U/L CK-MB (CK-2) 1.0 (0.0-2.4) ng/mL CK-MB (CK-2) Rel Index 1.2 Troponin I <0.012 (0.000-0.034) ng/mL Total Protein 6.9 (6.3-8.2) g/dL Albumin 4.2 (3.5-5.0) g/dL Urine Color Urine Appearance (Clear) Urine pH (5.0-8.0) Ur Specific [place] (1.001-1.035) Urine Protein (Negative) Urine Glucose (UA) (Negative) Urine Ketones (Negative) Urine Blood (Negative) Urine Nitrite (Negative) Urine Bilirubin (Negative) Urine Urobilinogen (<2.0) mg/dL Ur Leukocyte Esterase (Negative) Urine RBC (0-5) /hpf Urine WBC (0-5) /hpf Ur Squamous Epith Cells (0-4) /hpf Urine Bacteria (None) /hpf Urine Mucus (None) /hpf 09/20/18 09/20/18 09/20/18 Range/Units 09:45 09:45 10:05 WBC (3.8-10.6) k/uL RBC (3.80-5.40) m/uL Hgb (11.4-16.0) gm/dL Hct (34.0-46.0) % MCV (80.0-100.0) fL MCH (25.0-35.0) pg MCHC (31.0-37.0) g/dL RDW (11.5-15.5) % Plt Count (150-450) k/uL Neutrophils % % Lymphocytes % % Monocytes % % Eosinophils % % Basophils % % Neutrophils # (1.3-7.7) k/uL Lymphocytes # (1.0-4.8) k/uL Monocytes # (0-1.0) k/uL Eosinophils # (0-0.7) k/uL Basophils # (0-0.2) k/uL PT 10.0 (9.0-12.0) sec INR 0.9 (<1.2) APTT 23.2 (22.0-30.0) sec Sodium (137-145) mmol/L Potassium (3.5-5.1) mmol/L Chloride (98-107) mmol/L Carbon Dioxide (22-30) mmol/L Anion Gap mmol/L BUN (7-17) mg/dL Creatinine (0.52-1.04) mg/dL Est GFR (CKD-EPI)AfAm (>60 ml/min/1.73 sqM) Est GFR (CKD-EPI)NonAf (>60 ml/min/1.73 sqM) Glucose (74-99) mg/dL Plasma Lactic Acid Tom 1.5 (0.7-2.0) mmol/L Calcium (8.4-10.2) mg/dL Total Bilirubin (0.2-1.3) mg/dL AST (14-36) U/L ALT (9-52) U/L Alkaline Phosphatase (38-126) U/L Total Creatine Kinase (30-135) U/L CK-MB (CK-2) (0.0-2.4) ng/mL CK-MB (CK-2) Rel Index Troponin I (0.000-0.034) ng/mL Total Protein (6.3-8.2) g/dL Albumin (3.5-5.0) g/dL Urine Color Light Yellow Urine Appearance Clear (Clear) Urine pH 6.5 (5.0-8.0) Ur Specific [place] 1.013 (1.001-1.035) Urine Protein Negative (Negative) Urine Glucose (UA) Negative (Negative) Urine Ketones Negative (Negative) Urine Blood Small H (Negative) Urine Nitrite Negative (Negative) Urine Bilirubin Negative (Negative) Urine Urobilinogen <2.0 (<2.0) mg/dL Ur Leukocyte Esterase Negative (Negative) Urine RBC 5 (0-5) /hpf Urine WBC 1 (0-5) /hpf Ur Squamous Epith Cells 7 H (0-4) /hpf Urine Bacteria Rare H (None) /hpf Urine Mucus Rare H (None) /hpf Disposition Clinical Impression: Exacerbation of multiple sclerosis Disposition: DC/TRNS INTERMEDIATE CARE FAC Condition: Stable Is patient prescribed a controlled substance at d/c from ED?: No Referrals: Sj Fitch MD [Primary Care Provider] - 1-2 days Time of Disposition: 12:46 - Out of Hospital Transfer - Req. Specs Out of Hospital Transfer - Requested Specifics: Other Emergency Center ([facility])
[2018-09-20 10:16] LABS: Basophils # (A) 0.1 k/uL (0-0.2); Basophils % (A) 0 %; Eosinophils # (A) 0.4 k/uL (0-0.7); Eosinophils % (A) 3 %; HCT 41.7 % (34.0-46.0); HGB 13.4 gm/dL (11.4-16.0); Lymphocytes # (A) 2.1 k/uL (1.0-4.8); Lymphocytes % (A) 17 %; MCH 28.4 pg (25.0-35.0); MCHC 32.1 g/dL (31.0-37.0); MCV 88.3 fL (80.0-100.0); Mean Platelet Volume 7.4; Monocytes # (A) 0.5 k/uL (0-1.0); Monocytes % (A) 4 %; Neutrophils # (A) 9.3 k/uL (1.3-7.7); Neutrophils % (A) 74 %; Platelet Count 366 k/uL (150-450); RBC 4.72 m/uL (3.80-5.40); RDW 13.6 % (11.5-15.5); WBC 12.5 k/uL (3.8-10.6)
[2018-09-20] MEDS ORDERED: HYDROmorphone 1 MG/ML 1 ML SYRINGE IVP STA (10:16)
[2018-09-20] MEDS ORDERED: ONDANSETRON 4 MG/2 ML VIAL IVP STA (10:16)
[2018-09-20] MEDS ORDERED: methylPREDNISolone SOD SUCCI 125 MG/2 ML VIAL IV STA ×2 (10:16→12:38)
[2018-09-20 10:27] LABS: ALT 27 U/L (9-52); AST 24 U/L (14-36); Albumin 4.2 g/dL (3.5-5.0); Alkaline Phosphatase 44 U/L (38-126); Anion Gap 8 mmol/L; Blood Urea Nitrogen 11 mg/dL (7-17); Calcium 9.6 mg/dL (8.4-10.2); Carbon Dioxide 22 mmol/L (22-30); Chloride 108 mmol/L (98-107); Glucose 94 mg/dL (74-99); Sodium 138 mmol/L (137-145); Total Bilirubin 0.5 mg/dL (0.2-1.3); Total Protein 6.9 g/dL (6.3-8.2)
[2018-09-20 10:28] LABS: INR 0.9 (<1.2); Partial Thromboplastin Time 23.2 sec (22.0-30.0)
[2018-09-20 10:39] LABS: Creatine Kinase 84 U/L (30-135)
[2018-09-20 10:42] LABS: Appearance,Urine Clear (Clear); Bacteria,Urine Rare /hpf; Bilirubin,Urine Negative (Negative); Blood,Urine Small (Negative); Color,Urine Light Yellow; Glucose,Urine (UA) Negative (Negative); Ketones,Urine Negative (Negative); Leukocyte Esterase,Urine Negative (Negative); Mucus,Urine Rare /hpf; Nitrite,Urine Negative (Negative); PH, Urine 6.5 (5.0-8.0); Protein,Urine Negative (Negative); RBC,Urine 5 /hpf (0-5); Specific Gravity,Urine 1.013 (1.001-1.035); Squamous Epithelial Cell,Urine 7 /hpf (0-4); Urobilinogen,Urine <2.0 mg/dL (<2.0); WBC,Urine 1 /hpf (0-5)
[2018-09-20 10:52] LABS: Troponin I <0.012 ng/mL (0.000-0.034)
[2018-09-20] MEDS ORDERED: MORPHINE SULFATE 4 MG/ML SYRINGE IVP STA (13:30)
[2018-09-20] MEDS ORDERED: LORazepam 2 MG/ML INJ IV STA (13:30)
[2018-09-20 13:44] VITALS: BP 132/76; PULSE 78; TEMP 97.8
== END 2018-09-20 13:47 ==
LOC: EC 09:05
DX: G35 Multiple sclerosis (principal); J45.909 Unspecified asthma, uncomplicated; I10 Essential (primary) hypertension; G89.29 Other chronic pain; Z87.891 Personal history of nicotine dependence; Z88.0 Allergy status to penicillin; Z88.1 Allergy status to other antibiotic agents; Z88.5 Allergy status to narcotic agent; Z88.6 Allergy status to analgesic agent; Z91.040 Latex allergy status; Z79.899 Other long term (current) drug therapy; Z96.612 Presence of left artificial shoulder joint; W19.XXXA Unspecified fall, initial encounter; Y93.89 Activity, other specified
CPT/HCPCS: 36415; 93005; 80053; 82550; 82553; 83605; 84484; 85025; 85610; 85730; 81001; 99285; 96374; 96375 ×4; 96376; 96361 ×3; J2060; J2270; J2930; J2405; J1170

== ENCOUNTER 2018-10-01 08:44 | Emergency (ER) | payer MEDICARE, OTHER ==
[2018-10-01] MEDS ORDERED: PROMETHAZINE INJ 25 MG/ML 1 ML VIAL IM STA ×2 (09:05→09:52)
[2018-10-01] MEDS: diphenhydrAMINE 50 MG/ML 1 ML VIAL IM STA ×2 (09:23→09:26)
--- NOTE | 2018-10-01 09:31 | CT ---
EXAMINATION TYPE: CT brain wo con DATE OF EXAM: 10/01/2018 COMPARISON: 01/26/2018 HISTORY: Headache CT DLP: 1050.[address] of the brain was performed. Again noted is symmetric bifrontal atrophic change. Remote insult right temporal parietal occipital r egion. Small foci of remote insult right centrum semioval bilaterally There is no evidence for intracranial hemorrhage or sulcal effacement. No mass effects are seen. Osseous calvarium is intact. If symptoms persist consider MRI as clinically warranted. IMPRESSION: 1. Chronic changes without evidence for acute intracranial process at this time.
--- NOTE | 2018-10-01 09:33 | ED ---
General Adult HPI - General Chief complaint: Headache Stated complaint: Headache Time Seen by Provider: 10/01/18 08:59 Source: patient, EMS, RN notes reviewed Mode of arrival: EMS Limitations: no limitations - History of Present Illness Initial comments: This a 38-year-old female presents emergency Department with multiple complaints. Patient states that she has diffuse pain all over her body and she is requesting narcotics for her pain. Patient states that she also has a headache across her left forehead, left ear. Patient states that as a burning sensation. She denies any blurred vision no focal weakness. Patient states that she always has some generalized weakness secondary to her MS. Patient denies any fever or chills. Denies any neck pain, neck stiffness. No URI symptoms. Patient states symptoms started over 24 hours ago of her headache and she did try to Imitrex. Patient has no migraine headaches. Patient states that she had some relief. Patient denies any chest pain or shortness breath. She doesn't some nausea and vomiting. - Related Data Home Medications Medication Instructions Recorded Confirmed Albuterol Inhaler [Ventolin Hfa 2 puff INHALATION RT-QID PRN 12/09/13 10/01/18 Inhaler] Ipratropium/Albuterol Sulfate 1 puff INHALATION RT-QID PRN 12/09/13 10/01/18 [Combivent Respimat Inhaler] Albuterol Nebulized [Ventolin 2.5 mg INHALATION RT-QID PRN 01/26/18 10/01/18 Nebulized] Diazepam [Valium] 5 mg PO BID PRN 05/24/18 10/01/18 Lisinopril [Zestril] 10 mg PO DAILY 05/24/18 10/01/18 Metaxalone [Skelaxin] 400 mg PO TID 08/11/18 10/01/18 Dimethyl Fumarate [Tecfidera] 240 mg PO BID 09/20/18 10/01/18 Previous Rx's Medication Instructions Recorded valACYclovir HCL [Valtrex] 1,000 mg PO Q8HR #30 tab 10/01/18 Allergies Allergy/AdvReac Type Severity Reaction Status Date / Time amoxicillin [Amoxicillin] Allergy Severe Anaphylaxis, Verified 10/01/18 09:48 seizures ciprofloxacin [From Cipro] Allergy Severe Rash/Hives, Verified 10/01/18 09:48 seizures codeine phosphate Allergy Unknown Rash/Hives Verified 10/01/18 09:48 [From Tylenol-Codeine #3] cefuroxime axetil Allergy Rash/Hives Verified 10/01/18 09:48 [From Ceftin] ketorolac [From Toradol] Allergy Rash/Hives Verified 10/01/18 09:48 latex Allergy Rash/Hives Verified 10/01/18 09:48 NSAIDS (Non-Steroidal Allergy Rash/Hives/Lip Verified 10/01/18 09:48 Anti-Inflamma Swelling Review of Systems ROS Statement: Those systems with pertinent positive or pertinent negative responses have been documented in the HPI. ROS Other: All systems not noted in ROS Statement are negative. Past Medical History Past Medical History: Asthma, Fibromyalgia, GERD/Reflux, Hypertension, Musculoskeletal Disorder, Neurologic Disorder, Pneumonia, Seizure Disorder Additional Past Medical History / Comment(s): Multiple Sclerosis, migraines, DJD , interstitial cystitis, UTI, PCOS, vit D deficiency, bilateral optic neuritis with visual problems, generalized chronic pain, numbness/tingling bilateral lower legs, tachycardia, c-diff 5-9-15, History of Any Multi-Drug Resistant Organisms: None Reported Date of last positivie culture/infection: None MDRO Source:: None Past Surgical History: Cholecystectomy, Orthopedic Surgery Additional Past Surgical History / Comment(s): Lt shoulder rotator cuff repair 06/06/14, arthroscopic left knee 2000 & 2002, left shoulder reconstruction Past Anesthesia/Blood Transfusion Reactions: No Reported Reaction Additional Past Anesthesia/Blood Transfusion Reaction / Comment(s): Pt has never recieved blood. Past Psychological History: Anxiety, Depression, Depression Smoking Status: Former smoker Past Alcohol Use History: None Reported Past Drug Use History: Marijuana - Past Family History Mother Family Medical History: No Reported History Additional Family Medical History / Comment(s): mother is healthy Father Family Medical History: Hypertension General Exam Limitations: no limitations General appearance: alert, in no apparent distress Head exam: Present: atraumatic, normocephalic. Absent: normal inspection ( Small blisters noted over the left side of the forehead, sensation increases with touching of the left side of forehead left ear) Eye exam: Present: normal appearance, PERRL, EOMI. Absent: scleral icterus, conjunctival injection, periorbital swelling Pupils: Present: other (There is no dendritic uptake in the left eye) ENT exam: Present: normal exam, normal oropharynx, mucous membranes moist, TM's normal bilaterally Neck exam: Present: normal inspection, full ROM. Absent: tenderness, meningismus, lymphadenopathy Respiratory exam: Present: normal lung sounds bilaterally. Absent: respiratory distress, wheezes, rales, rhonchi, stridor Cardiovascular Exam: Present: regular rate, normal rhythm, normal heart sounds. Absent: systolic murmur, diastolic murmur, rubs, gallop, clicks GI/Abdominal exam: Present: soft, normal bowel sounds. Absent: distended, tenderness, guarding, rebound, rigid Extremities exam: Present: other (Bilateral upper extremity strength equal bilaterally, neurovascular intact bilateral lower extremity strength equal patient is resistant to be lifting left leg stating that his week ago she is pressing downward lift up) Neurological exam: Present: alert, oriented X3, CN II-XII intact, reflexes normal, other (Finger to nose intact bilaterally, normal [id number] normal Romberg). Absent: motor sensory deficit Skin exam: Present: warm, dry, intact, normal color. Absent: rash Course Vital Signs 10/01/18 08:45 Temperature 97.3 F L Pulse Rate 96 Respiratory 20 Rate Blood Pressure 133/95 O2 Sat by Pulse 97 Oximetry - Reevaluation(s) Reevaluation #1: 10/01/18 09:32 Patient had medications ordered by refused. Patient states that she only wants IV pain meds. Patient states that her symptoms are changing and now today very to the right side and then back to left. Patient states that she does not want a shot of pain meds only IV. Patient was offered oral medication and she states that she does not want anything. Patient also was ordered antiemetics but states that she wants IV antiemetics. Medical Decision Making - Medical Decision Making 38-year-old female presents emergency Department with chief complaint of left for head, ear pain. Patient has early signs shingles. Patient has CT which was negative. Patient we discharged with Valtrex. Return parameters were discussed. Disposition Clinical Impression: Shingles, Migraine Disposition: HOME SELF-CARE Condition: Stable Instructions (If sedation given, give patient instructions): Shingles (ED) Additional Instructions: Please return to the Emergency Department if symptoms worsen or any other concerns. Prescriptions: valACYclovir HCL [Valtrex] 1,000 mg PO Q8HR #30 tab Is patient prescribed a controlled substance at d/c from ED?: No Referrals: Sj Fitch MD [Primary Care Provider] - 1-2 days Time of Disposition: 10:00
[2018-10-01] MEDS ORDERED: ACETAMINOPHEN TAB 325 MG TAB PO STA (09:51)
[2018-10-01] MEDS ORDERED: diphenhydrAMINE 50 MG/ML 1 ML VIAL IM STA (09:52)
[2018-10-01 10:11] VITALS: BP 129/94; PULSE 83; RESP 18; TEMP 97
== END 2018-10-01 10:11 | disposition home or self-care (01) ==
LOC: EC 08:44
DX: G43.909 Migraine, unspecified, not intractable, without status migrainosus (principal); B02.9 Zoster without complications; H92.02 Otalgia, left ear; J45.909 Unspecified asthma, uncomplicated; I10 Essential (primary) hypertension; G40.909 Epilepsy, unspecified, not intractable, without status epilepticus; G35 Multiple sclerosis; F41.9 Anxiety disorder, unspecified; Z87.891 Personal history of nicotine dependence; Z90.49 Acquired absence of other specified parts of digestive tract; Z98.890 Other specified postprocedural states; Z79.899 Other long term (current) drug therapy; Z88.0 Allergy status to penicillin; Z88.1 Allergy status to other antibiotic agents; Z88.5 Allergy status to narcotic agent; Z88.6 Allergy status to analgesic agent
CPT/HCPCS: 70450; 99284; 96372; J2550

== ENCOUNTER 2018-10-26 11:40 | Emergency (ER) | payer MEDICARE, OTHER ==
[2018-10-26 12:00] VITALS: BP 136/73; PULSE 96; RESP 18; TEMP 98.1
[2018-10-26] MEDS ORDERED: ONDANSETRON 4 MG ODT STARTER PACK 2 TAB BTL PO STA (13:02)
[2018-10-26] MEDS ORDERED: HYDROcodone/APAP 5-325MG 1 EACH TAB PO STA (13:02)
--- NOTE | 2018-10-26 13:05 | ED ---
General Adult HPI - General Chief complaint: Skin/Abscess/Foreign Body Stated complaint: shingles/weakness Time Seen by Provider: 10/26/18 12:10 Source: patient, RN notes reviewed, old records reviewed Mode of arrival: wheelchair Limitations: no limitations - History of Present Illness Initial comments: Patient is a 38-year-old female who presents emergency department today, with complaints of shingles pain. She's been treated for shingles for the past week with Valtrex. Patient states the symptoms have continued pain persists. Patient states that she has not had any pain medication. She's been evaluated by her operational risk consultant and primary care physician. They'll optimize her treatment with giving her eyedrops and Patient reports that she cannot take any Neurontin for the nerve pain. Patient has extensive history of MS and chronic pain. - Related Data Home Medications Medication Instructions Recorded Confirmed Albuterol Inhaler [Ventolin Hfa 2 puff INHALATION RT-QID PRN 12/09/13 10/26/18 Inhaler] Ipratropium/Albuterol Sulfate 1 puff INHALATION RT-QID PRN 12/09/13 10/26/18 [Combivent Respimat Inhaler] Albuterol Nebulized [Ventolin 2.5 mg INHALATION RT-QID PRN 01/26/18 10/26/18 Nebulized] Diazepam [Valium] 5 mg PO BID PRN 05/24/18 10/26/18 Lisinopril [Zestril] 10 mg PO DAILY 05/24/18 10/26/18 Metaxalone [Skelaxin] 400 mg PO TID 08/11/18 10/26/18 Dimethyl Fumarate [Tecfidera] 240 mg PO BID 09/20/18 10/26/18 Ganciclovir [Zirgan] 1 drop LEFT EYE 5XD 10/26/18 10/26/18 methylPREDNISolone [Medrol Dose See Taper PO DIRECTED 10/26/18 10/26/18 Pack] Previous Rx's Medication Instructions Recorded valACYclovir HCL [Valtrex] 1,000 mg PO Q8HR #30 tab 10/01/18 HYDROcodone/APAP 5-325MG [[place] 1 tab PO Q6HR PRN 3 Days #12 tab 10/26/18 5-325] Ondansetron Odt [Zofran Odt] 4 mg PO Q8HR PRN #20 tab 10/26/18 Allergies Allergy/AdvReac Type Severity Reaction Status Date / Time amoxicillin [Amoxicillin] Allergy Severe Anaphylaxis, Verified 10/26/18 12:36 seizures ciprofloxacin [From Cipro] Allergy Severe Rash/Hives, Verified 10/26/18 12:36 seizures codeine phosphate Allergy Unknown Rash/Hives Verified 10/26/18 12:36 [From Tylenol-Codeine #3] cefuroxime axetil Allergy Rash/Hives Verified 10/26/18 12:36 [From Ceftin] ketorolac [From Toradol] Allergy Rash/Hives Verified 10/26/18 12:36 latex Allergy Rash/Hives Verified 10/26/18 12:36 NSAIDS (Non-Steroidal Allergy Rash/Hives/Lip Verified 10/26/18 12:36 Anti-Inflamma Swelling Review of Systems ROS Statement: Those systems with pertinent positive or pertinent negative responses have been documented in the HPI. ROS Other: All systems not noted in ROS Statement are negative. Past Medical History Past Medical History: Asthma, Fibromyalgia, GERD/Reflux, Hypertension, Musculoskeletal Disorder, Neurologic Disorder, Pneumonia, Seizure Disorder Additional Past Medical History / Comment(s): Multiple Sclerosis, migraines, DJD, interstitial cystitis, UTI, PCOS, vit D deficiency, bilateral optic neuritis with visual problems, generalized chronic pain, numbness/tingling bilateral lower legs, tachycardia, c-diff 5-9-15, History of Any Multi-Drug Resistant Organisms: C-DIFF Date of last positivie culture/infection: 2016 MDRO Source:: stool Past Surgical History: Cholecystectomy, Orthopedic Surgery Additional Past Surgical History / Comment(s): Lt shoulder rotator cuff repair 06/06/14, arthroscopic left knee 2000 & 2002, left shoulder reconstruction Past Anesthesia/Blood Transfusion Reactions: No Reported Reaction Additional Past Anesthesia/Blood Transfusion Reaction / Comment(s): Pt has never recieved blood. Past Psychological History: Anxiety, Depression, Depression Smoking Status: Former smoker Past Alcohol Use History: None Reported Past Drug Use History: Marijuana - Past Family History Mother Family Medical History: No Reported History Additional Family Medical History / Comment(s): mother is healthy Father Family Medical History: Hypertension General Exam - General Exam Comments Initial Comments: Pt is a 38 female. Limitations: no limitations General appearance: alert, in no apparent distress Head exam: Present: atraumatic, normocephalic, normal inspection Eye exam: Present: normal appearance, PERRL, EOMI. Absent: scleral icterus, conjunctival injection, periorbital swelling ENT exam: Present: normal exam, mucous membranes moist, other (Shingles like rash over the right side of her face.) Neck exam: Present: normal inspection. Absent: tenderness, meningismus, lymphadenopathy Respiratory exam: Present: normal lung sounds bilaterally. Absent: respiratory distress, wheezes, rales, rhonchi, stridor Cardiovascular Exam: Present: regular rate, normal rhythm, normal heart sounds. Absent: systolic murmur, diastolic murmur, rubs, gallop, clicks GI/Abdominal exam: Present: soft, normal bowel sounds. Absent: distended, tenderness, guarding, rebound, rigid Extremities exam: Present: normal inspection, full ROM, normal capillary refill. Absent: tenderness, pedal edema, joint swelling, calf tenderness Back exam: Present: normal inspection Neurological exam: Present: alert, oriented X3, CN II-XII intact Psychiatric exam: Present: normal affect, normal mood Skin exam: Present: warm, dry, intact, normal color. Absent: rash Course Vital Signs 10/26/18 11:55 Temperature 98.1 F Pulse Rate 96 Respiratory 18 Rate Blood Pressure 136/73 O2 Sat by Pulse 97 Oximetry Medical Decision Making - Medical Decision Making This is a 38-year-old female who presents emergency department today complaining of shingles pain. She started on antiviral medication. Patient states that she is searching for pain medication. Patient also complains of some nausea. She is almost emergency department for neurological symptoms. Patient sees a neurologist and her primary care doctor and ophthalmology for symptoms. Discussed at this time Patient needs to have close follow-up with her primary care physician. We'll give the Patient a short course of pain medication she is on anything this time. Discussed strict return parameters. Disposition Clinical Impression: Shingles outbreak, Shingles (herpes zoster) polyneuropathy Disposition: HOME SELF-CARE Condition: Good Instructions (If sedation given, give patient instructions): Shingles (ED) Additional Instructions: Patient advised to follow-up with your primary care doctor [facility]. Follow-up with the operational risk consultant as well as you have been. Return to emergency department if any alarming signs or symptoms occur. Prescriptions: HYDROcodone/APAP 5-325MG [[place] 5-325] 1 tab PO Q6HR PRN 3 Days #12 tab PRN Reason: Pain Ondansetron Odt [Zofran Odt] 4 mg PO Q8HR PRN #20 tab PRN Reason: Nausea Is patient prescribed a controlled substance at d/c from ED?: No Referrals: Sj Fitch MD [Primary Care Provider] - 1-2 days Time of Disposition: 13:03
== END 2018-10-26 13:20 | disposition home or self-care (01) ==
LOC: EC 11:40
DX: B02.23 Postherpetic polyneuropathy (principal); R11.0 Nausea; J45.909 Unspecified asthma, uncomplicated; I10 Essential (primary) hypertension; G35 Multiple sclerosis; G89.29 Other chronic pain; H46.9 Unspecified optic neuritis; Z87.891 Personal history of nicotine dependence; Z88.0 Allergy status to penicillin; Z88.1 Allergy status to other antibiotic agents; Z88.5 Allergy status to narcotic agent; Z88.6 Allergy status to analgesic agent; Z91.040 Latex allergy status; Z79.52 Long term (current) use of systemic steroids; Z79.899 Other long term (current) drug therapy; Z96.612 Presence of left artificial shoulder joint
CPT/HCPCS: 99284; S0119

== ENCOUNTER → 2018-11-10 | Outpatient (CLI) | payer MEDICARE, OTHER ==
[2018-11-10 14:27] LABS: Basophils # (A) 0.1 k/uL (0-0.2); Basophils % (A) 0 %; Eosinophils # (A) 0.4 k/uL (0-0.7); Eosinophils % (A) 3 %; HCT 41.5 % (34.0-46.0); HGB 13.3 gm/dL (11.4-16.0); Lymphocytes # (A) 2.6 k/uL (1.0-4.8); Lymphocytes % (A) 16 %; MCH 29.3 pg (25.0-35.0); MCHC 32.2 g/dL (31.0-37.0); MCV 91.1 fL (80.0-100.0); Monocytes # (A) 0.8 k/uL (0-1.0); Monocytes % (A) 5 %; Neutrophils # (A) 11.7 k/uL (1.3-7.7); Neutrophils % (A) 75 %; Platelet Count 391 k/uL (150-450); RBC 4.55 m/uL (3.80-5.40); RDW 14.3 % (11.5-15.5); WBC 15.7 k/uL (3.8-10.6)
== END | disposition home or self-care (01) ==
LOC: LABWHC1 13:25
PROVIDERS: ATTEND Nurse Practitioner Adult Health
DX: G35 Multiple sclerosis (principal)
CPT/HCPCS: 36415; 85025

== ENCOUNTER 2019-01-26 13:07 | Inpatient (IN) | payer MEDICARE, OTHER ==
[2019-01-26] MEDS ORDERED: MORPHINE SULFATE 4 MG/ML SYRINGE IV STA (14:29)
[2019-01-26] MEDS ORDERED: SODIUM CHLORIDE 0.9% 500 ML 500 ML IV STA (14:29)
[2019-01-26] MEDS ORDERED: methylPREDNISolone SOD SUCCI 125 MG/2 ML VIAL IV STA ×2 (14:30→17:02)
[2019-01-26] MEDS ORDERED: ONDANSETRON 4 MG/2 ML VIAL IVP STA (15:34)
[2019-01-26 15:37] LABS: Basophils # (A) 0.1 k/uL (0-0.2); Basophils % (A) 0 %; Eosinophils # (A) 0.8 k/uL (0-0.7); Eosinophils % (A) 4 %; HCT 43.5 % (34.0-46.0); HGB 14.1 gm/dL (11.4-16.0); Lymphocytes # (A) 3.2 k/uL (1.0-4.8); Lymphocytes % (A) 15 %; MCH 29.1 pg (25.0-35.0); MCHC 32.5 g/dL (31.0-37.0); MCV 89.6 fL (80.0-100.0); Mean Platelet Volume 7.2; Monocytes # (A) 0.8 k/uL (0-1.0); Monocytes % (A) 4 %; Neutrophils # (A) 16.3 k/uL (1.3-7.7); Neutrophils % (A) 76 %; Platelet Count 426 k/uL (150-450); RBC 4.86 m/uL (3.80-5.40); RDW 13.4 % (11.5-15.5); WBC 21.4 k/uL (3.8-10.6)
--- NOTE | 2019-01-26 15:45 | ED ---
General Adult HPI - General Chief complaint: Recheck/Abnormal Lab/Rx Stated complaint: MS Flare UP, loss vison in right eye, numbness Time Seen by Provider: 01/26/19 14:06 Source: patient, RN notes reviewed Mode of arrival: wheelchair Limitations: physical limitation - History of Present Illness Initial comments: 39-year-old female with a complicated past medical history including multiple sclerosis presents to the emergency department for multiple sclerosis flare. Patient states she is having numbness and tingling in the right arm and leg. States this is completely consistent with previous MS flareups. States she is also having some blurry vision in the right eye which is also consistent with previous flareups. States she has had negative CTs of the brain previously. States that this started at 3 days ago and has gotten progressively worse. States it is difficult to walk due to the weakness in her right leg. States that when this happens she usually needs admission with IV antibiotics.Patient has no other complaints at this time including shortness of breath, chest pain, abdominal pain, nausea or vomiting, headache, or visual changes. - Related Data Home Medications Medication Instructions Recorded Confirmed Albuterol Inhaler [Ventolin Hfa 2 puff INHALATION RT-QID PRN 12/09/13 01/26/19 Inhaler] Ipratropium/Albuterol Sulfate 1 puff INHALATION RT-QID PRN 12/09/13 01/26/19 [Combivent Respimat Inhaler] Albuterol Nebulized [Ventolin 2.5 mg INHALATION RT-QID PRN 01/26/18 01/26/19 Nebulized] Diazepam [Valium] 5 mg PO BID PRN 05/24/18 01/26/19 Lisinopril [Zestril] 10 mg PO DAILY 05/24/18 01/26/19 Metaxalone [Skelaxin] 400 mg PO TID 08/11/18 01/26/19 Dimethyl Fumarate [Tecfidera] 240 mg PO BID 09/20/18 01/26/19 Amitriptyline HCl 150 mg PO DAILY 01/26/19 01/26/19 Allergies Allergy/AdvReac Type Severity Reaction Status Date / Time amoxicillin [Amoxicillin] Allergy Severe Anaphylaxis, Verified 01/26/19 13:42 seizures ciprofloxacin [From Cipro] Allergy Severe Rash/Hives, Verified 01/26/19 13:42 seizures codeine phosphate Allergy Unknown Rash/Hives Verified 01/26/19 13:42 [From Tylenol-Codeine #3] cefuroxime axetil Allergy Rash/Hives Verified 01/26/19 13:42 [From Ceftin] ketorolac [From Toradol] Allergy Rash/Hives Verified 01/26/19 13:42 latex Allergy Rash/Hives Verified 01/26/19 13:42 NSAIDS (Non-Steroidal Allergy Rash/Hives/Lip Verified 01/26/19 13:42 Anti-Inflamma Swelling Review of Systems ROS Statement: Those systems with pertinent positive or pertinent negative responses have been documented in the HPI. ROS Other: All systems not noted in ROS Statement are negative. Past Medical History Past Medical History: Asthma, Fibromyalgia, GERD/Reflux, Hypertension, Musculoskeletal Disorder, Neurologic Disorder, Pneumonia, Seizure Disorder Additional Past Medical History / Comment(s): Multiple Sclerosis, migraines, DJD, interstitial cystitis, UTI, PCOS, vit D deficiency, bilateral optic neuritis with visual problems, generalized chronic pain, numbness/tingling bilateral lower legs, tachycardia, c-diff 5-9-15, History of Any Multi-Drug Resistant Organisms: C-DIFF Date of last positivie culture/infection: 2016 MDRO Source:: stool Past Surgical History: Cholecystectomy, Orthopedic Surgery Additional Past Surgical History / Comment(s): Lt shoulder rotator cuff repair 06/06/14, arthroscopic left knee 2000 & 2002, left shoulder reconstruction Past Anesthesia/Blood Transfusion Reactions: No Reported Reaction Additional Past Anesthesia/Blood Transfusion Reaction / Comment(s): Pt has never recieved blood. Past Psychological History: Anxiety, Depression, Depression Smoking Status: Former smoker Past Alcohol Use History: None Reported Past Drug Use History: Marijuana - Past Family History Mother Family Medical History: No Reported History Additional Family Medical History / Comment(s): mother is healthy Father Family Medical History: Hypertension General Exam Limitations: physical limitation General appearance: alert, in no apparent distress Head exam: Present: atraumatic, normocephalic, normal inspection Eye exam: Present: normal appearance, PERRL, EOMI. Absent: scleral icterus, conjunctival injection, periorbital swelling ENT exam: Present: normal exam, mucous membranes moist Neck exam: Present: normal inspection, full ROM. Absent: tenderness, meningismus, lymphadenopathy Respiratory exam: Present: normal lung sounds bilaterally. Absent: respiratory distress, wheezes, rales, rhonchi, stridor Cardiovascular Exam: Present: regular rate, normal rhythm, normal heart sounds. Absent: systolic murmur, diastolic murmur, rubs, gallop, clicks GI/Abdominal exam: Present: soft, normal bowel sounds. Absent: distended, tenderness, guarding, rebound, rigid Neurological exam: Present: alert, oriented X3, CN II-XII intact, other (GCS 15) Expanded Patient oriented to: Present: person, place, time Speech: Present: fluid speech Cranial nerves: EOM's Intact: Normal, Tongue Deviation: Normal, Nystagmus: Normal, Facial Sensation: Normal Cerebellar function: Finger to Nose: Normal Upper motor neuron: Pronator Drift: Normal Sensory exam: Upper Extremity Light Touch: Normal, Upper Extremity Pin Prick: Normal, Lower Extremity Light Touch: Normal, Lower Extremity Pin Prick: Normal Motor strength exam: RUE: 4, LUE: 5, RLE: 4, LLE: 5 Eye Response: (4) open spontaneously Motor Response: (6) obeys commands Verbal Response: (5) oriented [place] Total: 15 Psychiatric exam: Present: normal affect, normal mood Course Vital Signs 01/26/19 01/26/19 01/26/19 13:12 13:34 17:08 Temperature 98.4 F Pulse Rate 116 H 86 77 Respiratory 18 16 16 Rate Blood Pressure 124/83 177/102 128/99 O2 Sat by Pulse 98 98 98 Oximetry EKG Findings - EKG Comments: EKG Findings:: Sinus tachycardia, ventricular rate 114, DE interval 118, QTC 446 Medical Decision Making - Medical Decision Making 39-year-old female with a past medical history multiple sclerosis presents to the emergency department for multiple sclerosis flareup. States she is having numbness and tingling in the right arm and leg. Consistent with previous MS flareups. Blurry vision also consistent. She is now having pain. Patient states she is unable to ambulate well and usually needs IV antibiotics therapy when this occurs. Condition is likely tachycardic however vitals are now stable. Patient has a white count of 21.4 which is her baseline. Urine will be cultured as she does have 41 white blood cells however there are 59 squamous cells. She will not be started on IV antibiotics at this time she does not have any symptoms of dysuria. I did attempt to walk patient however she was unable to ambulate due to the weakness. Therefore patient will be admitted for IV steroids. - Lab Data Result diagrams: 01/26/19 15:25 01/26/19 15:25 Lab Results 01/26/19 01/26/19 01/26/19 Range/Units 15:25 15:25 15:25 WBC 21.4 H (3.8-10.6) k/uL RBC 4.86 (3.80-5.40) m/uL Hgb 14.1 (11.4-16.0) gm/dL Hct 43.5 (34.0-46.0) % MCV 89.6 (80.0-100.0) fL MCH 29.1 (25.0-35.0) pg MCHC 32.5 (31.0-37.0) g/dL RDW 13.4 (11.5-15.5) % Plt Count 426 (150-450) k/uL Neutrophils % 76 % Lymphocytes % 15 % Monocytes % 4 % Eosinophils % 4 % Basophils % 0 % Neutrophils # 16.3 H (1.3-7.7) k/uL Lymphocytes # 3.2 (1.0-4.8) k/uL Monocytes # 0.8 (0-1.0) k/uL Eosinophils # 0.8 H (0-0.7) k/uL Basophils # 0.1 (0-0.2) k/uL PT 9.8 (9.0-12.0) sec INR 0.9 (<1.2) APTT 22.5 (22.0-30.0) sec Sodium 138 (137-145) mmol/L Potassium 4.4 (3.5-5.1) mmol/L Chloride 106 (98-107) mmol/L Carbon Dioxide 24 (22-30) mmol/L Anion Gap 8 mmol/L BUN 11 (7-17) mg/dL Creatinine 0.58 (0.52-1.04) mg/dL Est GFR (CKD-EPI)AfAm >90 (>60 ml/min/1.73 sqM) Est GFR (CKD-EPI)NonAf >90 (>60 ml/min/1.73 sqM) Glucose 92 (74-99) mg/dL Calcium 9.5 (8.4-10.2) mg/dL Magnesium 1.9 (1.6-2.3) mg/dL Total Bilirubin 0.3 (0.2-1.3) mg/dL AST 22 (14-36) U/L ALT 23 (9-52) U/L Alkaline Phosphatase 61 (38-126) U/L Troponin I (0.000-0.034) ng/mL Total Protein 6.8 (6.3-8.2) g/dL Albumin 4.2 (3.5-5.0) g/dL Urine Color Urine Appearance (Clear) Urine pH (5.0-8.0) Ur Specific [place] (1.001-1.035) Urine Protein (Negative) Urine Glucose (UA) (Negative) Urine Ketones (Negative) Urine Blood (Negative) Urine Nitrite (Negative) Urine Bilirubin (Negative) Urine Urobilinogen (<2.0) mg/dL Ur Leukocyte Esterase (Negative) Urine RBC (0-5) /hpf Urine WBC (0-5) /hpf Ur Squamous Epith Cells (0-4) /hpf Amorphous Sediment (None) /hpf Urine Bacteria (None) /hpf Urine Mucus (None) /hpf 01/26/19 01/26/19 Range/Units 15:25 15:35 WBC (3.8-10.6) k/uL RBC (3.80-5.40) m/uL Hgb (11.4-16.0) gm/dL Hct (34.0-46.0) % MCV (80.0-100.0) fL MCH (25.0-35.0) pg MCHC (31.0-37.0) g/dL RDW (11.5-15.5) % Plt Count (150-450) k/uL Neutrophils % % Lymphocytes % % Monocytes % % Eosinophils % % Basophils % % Neutrophils # (1.3-7.7) k/uL Lymphocytes # (1.0-4.8) k/uL Monocytes # (0-1.0) k/uL Eosinophils # (0-0.7) k/uL Basophils # (0-0.2) k/uL PT (9.0-12.0) sec INR (<1.2) APTT (22.0-30.0) sec Sodium (137-145) mmol/L Potassium (3.5-5.1) mmol/L Chloride (98-107) mmol/L Carbon Dioxide (22-30) mmol/L Anion Gap mmol/L BUN (7-17) mg/dL Creatinine (0.52-1.04) mg/dL Est GFR (CKD-EPI)AfAm (>60 ml/min/1.73 sqM) Est GFR (CKD-EPI)NonAf (>60 ml/min/1.73 sqM) Glucose (74-99) mg/dL Calcium (8.4-10.2) mg/dL Magnesium (1.6-2.3) mg/dL Total Bilirubin (0.2-1.3) mg/dL AST (14-36) U/L ALT (9-52) U/L Alkaline Phosphatase (38-126) U/L Troponin I <0.012 (0.000-0.034) ng/mL Total Protein (6.3-8.2) g/dL Albumin (3.5-5.0) g/dL Urine Color Yellow Urine Appearance Cloudy H (Clear) Urine pH 5.5 (5.0-8.0) Ur Specific [place] 1.016 (1.001-1.035) Urine Protein Negative (Negative) Urine Glucose (UA) Negative (Negative) Urine Ketones Negative (Negative) Urine Blood Trace H (Negative) Urine Nitrite Negative (Negative) Urine Bilirubin Negative (Negative) Urine Urobilinogen <2.0 (<2.0) mg/dL Ur Leukocyte Esterase Large H (Negative) Urine RBC 8 H (0-5) /hpf Urine WBC 41 H (0-5) /hpf Ur Squamous Epith Cells 59 H (0-4) /hpf Amorphous Sediment Rare H (None) /hpf Urine Bacteria Rare H (None) /hpf Urine Mucus Occasional H (None) /hpf Disposition Clinical Impression: Multiple sclerosis Disposition: ADMITTED IP TO THIS HOSP Condition: Good Is patient prescribed a controlled substance at d/c from ED?: No Referrals: Sj Fitch MD [Primary Care Provider] - 1-2 days Time of Disposition: 17:33
[2019-01-26 15:55] LABS: ALT 23 U/L (9-52); AST 22 U/L (14-36); African American GFR (CKD) >90 (>60 ml/min/1.73 sqM); Albumin 4.2 g/dL (3.5-5.0); Alkaline Phosphatase 61 U/L (38-126); Anion Gap 8 mmol/L; Blood Urea Nitrogen 11 mg/dL (7-17); Calcium 9.5 mg/dL (8.4-10.2); Carbon Dioxide 24 mmol/L (22-30); Chloride 106 mmol/L (98-107); Glucose 92 mg/dL (74-99); Magnesium 1.9 mg/dL (1.6-2.3); Potassium 4.4 mmol/L (3.5-5.1); Sodium 138 mmol/L (137-145); Total Bilirubin 0.3 mg/dL (0.2-1.3); Total Protein 6.8 g/dL (6.3-8.2)
--- NOTE | 2019-01-26 15:57 | XR ---
EXAMINATION TYPE: XR chest 2V DATE OF EXAM: 01/26/2019 COMPARISON: NONE TECHNIQUE: PA and lateral views submitted. HISTORY: Weakness FINDINGS: The lungs are clear and there is no pneumothorax, pleural effusion, or focal pneumonia. Hypertrophic and degenerative change of the spine. IMPRESSION: 1. No acute process.
[2019-01-26 16:03] LABS: Amorphous Sediment,Urine Rare /hpf; Appearance,Urine Cloudy (Clear); Bacteria,Urine Rare /hpf; Bilirubin,Urine Negative (Negative); Blood,Urine Trace (Negative); Color,Urine Yellow; Glucose,Urine (UA) Negative (Negative); Ketones,Urine Negative (Negative); Leukocyte Esterase,Urine Large (Negative); Mucus,Urine Occasional /hpf; Nitrite,Urine Negative (Negative); PH, Urine 5.5 (5.0-8.0); Protein,Urine Negative (Negative); RBC,Urine 8 /hpf (0-5); Specific Gravity,Urine 1.016 (1.001-1.035); Squamous Epithelial Cell,Urine 59 /hpf (0-4); Urobilinogen,Urine <2.0 mg/dL (<2.0); WBC,Urine 41 /hpf (0-5)
[2019-01-26 16:05] LABS: INR 0.9 (<1.2); Partial Thromboplastin Time 22.5 sec (22.0-30.0); Prothrombin Time 9.8 sec (9.0-12.0)
[2019-01-26] MEDS ORDERED: HYDROmorphone 0.5 MG/0.5 ML SYRINGE IVP STA (17:01)
[2019-01-26] MEDS ORDERED: NALOXONE 0.4 MG/ML 1 ML VIAL IV PRN (17:28)
[2019-01-26] MEDS: HYDROmorphone 0.5 MG/0.5 ML SYRINGE IVP PRN ×2 (20:11→23:45)
[2019-01-26] MEDS: SODIUM CHLORIDE 0.9% 1,000 ML IV SCH (20:15)
[2019-01-26] MEDS ORDERED: DIAZEPAM 5 MG/ML 2 ML INJ IVP SCH ×2 (21:00→21:30)
[2019-01-26] MEDS ORDERED: ALBUTEROL INHALER 60 PUFF/8 GM INHALER INHALATION PRN (21:22)
[2019-01-26] MEDS ORDERED: IPRATROPIUM-ALBUTEROL 3 ML NEB INHALATION PRN (21:22)
[2019-01-26] MEDS ORDERED: DIAZEPAM 5 MG/ML 2 ML INJ IVP PRN (21:23)
[2019-01-26] MEDS: Dimethyl Fumarate [Tecfidera] PO SCH (21:52)
[2019-01-26] MEDS ORDERED: CYCLOBENZAPRINE 5 MG TAB PO PRN (22:00)
[2019-01-26] MEDS: ALBUTEROL NEBULIZED 2.5 MG/3 ML INHALATION PRN (22:14)
[2019-01-26] MEDS: ONDANSETRON 4 MG/2 ML VIAL IVP PRN (23:46)
[2019-01-27] MEDS: NICOTINE 14MG/24HR PATCH TRANSDERM SCH ×2 (01:21→08:48)
[2019-01-27] MEDS: HYDROmorphone 0.5 MG/0.5 ML SYRINGE IVP PRN ×7 (03:24→22:47)
[2019-01-27] MEDS: SODIUM CHLORIDE 0.9% 1,000 ML IV SCH ×3 (04:43→20:02)
[2019-01-27] MEDS: ONDANSETRON 4 MG/2 ML VIAL IVP PRN ×3 (08:30→23:52)
[2019-01-27] MEDS: LISINOPRIL 10 MG TAB PO SCH (08:30)
[2019-01-27] MEDS: AMITRIPTYLINE HCL 50 MG TAB PO SCH (08:30)
[2019-01-27] MEDS: Dimethyl Fumarate [Tecfidera] PO SCH ×2 (09:10→19:45)
[2019-01-27] MEDS ORDERED: DIAZEPAM 5 MG/ML (10 ML MDV) IVP PRN (11:32)
[2019-01-27 17:39] LABS: Appearance,Urine Cloudy (Clear); Bacteria,Urine Rare /hpf; Bilirubin,Urine Negative (Negative); Blood,Urine Small (Negative); Color,Urine Light Yellow; Glucose,Urine (UA) Negative (Negative); Ketones,Urine Negative (Negative); Leukocyte Esterase,Urine Small (Negative); Nitrite,Urine Negative (Negative); Protein,Urine Negative (Negative); RBC,Urine 1 /hpf (0-5); Specific Gravity,Urine 1.015 (1.001-1.035); Squamous Epithelial Cell,Urine 8 /hpf (0-4); Urobilinogen,Urine <2.0 mg/dL (<2.0); WBC,Urine 1 /hpf (0-5)
--- NOTE | 2019-01-27 17:43 | P.HPIM ---
History of Present Illness H&P Date: 01/27/19 Chief Complaint: Right-sided weakness Patient is a 39-year-old female with a known history of multiple sclerosis with frequent admissions, hypertension, GERD, fibromyalgia, asthma and history of seizure disorder came to the complaints of right-sided weakness. Patient says t hat she has been having numbness of the right upper and lower extremities and also tingling sensation for the past 3 days and is getting worse.. Patient says that it appears similar to her previous MS flareup. Patient did complain of bloody vision when she came to ER. Otherwise denied any complains of headache or dizziness. No eye pain. No chest pain or shortness of breath. No fever no chills. No complaints of abdominal pain. Patient does have some nausea. No ulcers or vomiting. No diarrhea. Denied any recent illnesses. Patient is complaining of right-sided pain and generalized pain and is requesting IV pain medications.. Chest x-ray showed no acute cardiac process EKG showed normal sinus rhythm WBC 21.4 UA showed cloudy and large leukocyte esterase, elevated WBC count and squamous epithelial cells. Repeat UA was ordered. Review of Systems Constitutional: Patient denies any fever or chills . No generalized weakness or weight loss. Abdomen: Patient denied nausea vomiting and diarrhea and abdominal pain. Cardiovascular: Patient denies any chest pain or short of breath no palpitations. Respiratory: patient denied any cough is from production. No shortness of breath Neurologic: Patient does have right-sided numbness and tingling sensation.. Musculoskeletal: Patient denies any complaints of joint swelling or deformity. Skin: Negative Psychiatric: Negative Endocrine: No heat or cold intolerance. No recent weight gain. Genitourinary: No dysuria or hematuria. All other 14 point ROS negative except the above Past Medical History Past Medical History: Asthma, Fibromyalgia, GERD/Reflux, Hypertension, Musculoskeletal Disorder, Neurologic Disorder, Pneumonia, Seizure Disorder Additional Past Medical History / Comment(s): Multiple Sclerosis, migraines, DJD, interstitial cystitis, UTI, PCOS, vit D deficiency, bilateral optic neuritis with visual problems, generalized chronic pain, numbness/tingling bilateral lower legs, tachycardia, c-diff 5-9-15, seizures from MS last one around 2014 History of Any Multi-Drug Resistant Organisms: C-DIFF Date of last positivie culture/infection: 2016 MDRO Source:: stool Past Surgical History: Cholecystectomy, Orthopedic Surgery Additional Past Surgical History / Comment(s): Lt shoulder rotator cuff repair 06/06/14, arthroscopic left knee 2000 & 2002, left shoulder reconstruction Past Anesthesia/Blood Transfusion Reactions: No Reported Reaction Additional Past Anesthesia/Blood Transfusion Reaction / Comment(s): Pt has never recieved blood. Past Psychological History: Anxiety, Depression, Depression Additional Psychological History / Comment(s): . Smoking Status: Former smoker Past Alcohol Use History: None Reported Additional Past Alcohol Use History / Comment(s): STARTED SMOKING AGE 17 and quit in 2017 but is using vapor cigarette somedays. Patient denies any medical marijuana, marijuana, street drug use. She denies any alcohol use or abuse. Patient is and lives with her and one child. No recent travel. Patient is on disability. Past Drug Use History: Marijuana - Past Family History Mother Family Medical History: No Reported History Additional Family Medical History / Comment(s): mother is healthy Father Family Medical History: Hypertension Medications and Allergies Home Medications Medication Instructions Recorded Confirmed Type Albuterol Inhaler [Ventolin Hfa 2 puff INHALATION RT-QID PRN 12/09/13 01/26/19 History Inhaler] Ipratropium/Albuterol Sulfate 1 puff INHALATION RT-QID PRN 12/09/13 01/26/19 History [Combivent Respimat Inhaler] Albuterol Nebulized [Ventolin 2.5 mg INHALATION RT-QID PRN 01/26/18 01/26/19 History Nebulized] Diazepam [Valium] 5 mg PO BID PRN 05/24/18 01/26/19 History Lisinopril [Zestril] 10 mg PO DAILY 05/24/18 01/26/19 History Metaxalone [Skelaxin] 400 mg PO TID 08/11/18 01/26/19 History Dimethyl Fumarate [Tecfidera] 240 mg PO BID 09/20/18 01/26/19 History Amitriptyline HCl 150 mg PO DAILY 01/26/19 01/26/19 History Allergies Allergy/AdvReac Type Severity Reaction Status Date / Time amoxicillin [Amoxicillin] Allergy Severe Anaphylaxis, Verified 01/26/19 13:42 seizures ciprofloxacin [From Cipro] Allergy Severe Rash/Hives, Verified 01/26/19 13:42 seizures codeine phosphate Allergy Unknown Rash/Hives Verified 01/26/19 13:42 [From Tylenol-Codeine #3] cefuroxime axetil Allergy Rash/Hives Verified 01/26/19 13:42 [From Ceftin] ketorolac [From Toradol] Allergy Rash/Hives Verified 01/26/19 13:42 latex Allergy Rash/Hives Verified 01/26/19 13:42 NSAIDS (Non-Steroidal Allergy Rash/Hives/Lip Verified 01/26/19 13:42 Anti-Inflamma Swelling Physical Exam Vitals: Vital Signs Temp Pulse Pulse Resp BP BP Pulse Ox 01/27/19 12:00 118 H 18 01/27/19 08:00 97.8 F 118 H 18 150/88 96 01/27/19 04:00 15 01/27/19 00:00 98.2 F 115 H 15 105/71 98 01/26/19 22:21 77 16 01/26/19 22:14 75 16 01/26/19 19:55 17 01/26/19 18:37 101 H 18 01/26/19 17:57 98.4 F 101 H 18 131/90 95 01/26/19 17:46 98.4 F 77 16 126/90 98 01/26/19 17:08 77 16 128/99 98 Intake and Output 01/26/19 01/27/19 01/27/19 22:59 06:59 14:59 Intake Total 800 Balance 800 Intake: Oral 800 Other: Voiding Method Bedside Commode Bedside Commode Bedside Commode # Voids 1 1 PHYSICAL EXAMINATION: Patient is lying in the bed comfortably, no acute distress, awake alert and oriented.. HEENT: Normocephalic. Neck is supple. Pupils reactive. Nostrils clear. Oral cavity is moist. Ears reveal no drainage. Neck reveals no JVD, carotid bruits, or thyromegaly. CHEST EXAMINATION: Trachea is central. Symmetrical expansion. Lung pacheco clear to auscultation and percussion. CARDIAC: Normal S1, S2 with no gallops. No murmurs ABDOMEN: Soft. Bowel sounds normal. No organomegaly. No abdominal bruits. Extremities: reveal no edema. No clubbing or cyanosis Neurologically awake, alert, oriented x3 with well-coordinated movements. No focal deficits noted Skin: No rash or skin lesions. Psychiatric: Coperative. Nonsuicidal Musculoskeletal: No joint swelling or deformity. Normal range of motion. Results CBC & Chem 7: 01/26/19 15:25 01/26/19 15:25 Labs: Abnormal Lab Results - Last 24 Hours (Table) 01/26/19 01/26/19 Range/Units 15:25 15:35 WBC 21.4 H (3.8-10.6) k/uL Neutrophils # 16.3 H (1.3-7.7) k/uL Eosinophils # 0.8 H (0-0.7) k/uL Urine Appearance Cloudy H (Clear) Urine Blood Trace H (Negative) Ur Leukocyte Esterase Large H (Negative) Urine RBC 8 H (0-5) /hpf Urine WBC 41 H (0-5) /hpf Ur Squamous Epith Cells 59 H (0-4) /hpf Amorphous Sediment Rare H (None) /hpf Urine Bacteria Rare H (None) /hpf Urine Mucus Occasional H (None) /hpf Microbiology - Last 24 Hours (Table) 01/26/19 15:35 Urine Culture - Preliminary Urine,Clean Catch Thrombosis Risk Factor Assmnt - DVT/VTE Prophylaxis DVT/VTE Prophylaxis: Pharmacologic Prophylaxis ordered - Choose All That Apply Any of the Below Risk Factors Present?: Yes Each Factor Represents 1 point: Obesity (BMI >25) Other Risk Factors: No Other congenital or acquired thrombophilia - If yes, enter type in comment: No Thrombosis Risk Factor Assessment Total Risk Factor Score: 1 Thrombosis Risk Factor Assessment Level: Low Risk Assessment and Plan Assessment: Right-sided numbness and tingling sensation. Possible acute MS flareup. MRI of the brain was ordered. Blurry vision on admission History of migraine headache Fibromyalgia Hypertension GERD Asthma History of seizure disorder Degenerative joint disease Abnormal urine sample. Repeat UA was ordered. History of bilateral optic neuritis with visual problems. Generalized chronic pain Depression Previous history of smoking and marijuana use DVT prophylaxis with heparin subcu Morbid obesity BMI 35.5 Plan: Patient be continued on IV steroids and pain management with IV Dilaudid 0.5 mg every 3-4 hours. MRI of the brain was ordered. Ophthalmologic was consulted to rule out optic neuritis. Neurology is on board. Continue the home medications and follow up closely. Further recommendations based on the clinical course. Prognosis is guarded. - Past Family History Time with Patient: Greater than 30
[2019-01-27] MEDS: methylPREDNISolone SOD SUCCI 250 MG in SODIUM CHLORIDE 0.9% 100 ML IVPB SCH ×2 (17:54→22:47)
--- NOTE | 2019-01-27 18:23 | P.CON ---
Consult Note - . Consult date: 01/27/19 Assessment/Plan:: This is a 39 y/o female with history of MS for the last several years. Her last exacerbation was last fall. Typically the 5 previous presentations is in the right eye as with this episode. Approximately 3 days ago she began to experience some ache behind the eye and decrease in vision in the right eye. She describes the vision as blurry with an altitudinal type change, with some loss to the right side of her visual field. Colors are not as good on the right. Here glasses have been updated in the last year and have been working up to this point. She had an HZV problem on the left side involving at least the adnexal tissue of the eye this past spring and is currently doing well. She denies previous trauma surgery or ongoing ophthalmic treatment of either eye. PE: VA w/ glasses 20/30-3 OD, 20/20 OS. Confrontational pacheco: mild generalized constriction OD, normal OS Pupils: -APD EOM: full D&V and orthophoric Color Plates: 13/19 OD; 19/19 OS IOP: 13 mm Hg OD; 16 mm Hg OS @ 1700 Ext: normal Cornea: clear OU AC: D&Q OU Iris: normal Lens: clear Vitreous: clear Optic Nerve: mild pallor OD C:D 0.25; normal pink with 0.20 C:D OS Macula: quiet, normal FLR vascular: normal A: Retrobulbar optic neuritis OD. consistent with previous history. If systemic Dx is correct then manifestation possibly of MS. P: continue with treatment as planned for acute exacerbation. return to personal eye doctor for any follow up on any persistent problems. thank you for the consult on this nice lady.
--- NOTE | 2019-01-27 19:52 | CONS ---
CONSULTATION DATE OF SERVICE: 01/27/2019. REFERRING PHYSICIAN: Dr. Soto. HISTORY OF PRESENT ILLNESS: Thank you for allowing me to evaluate Lyndsay Uriarte who is a 39-year-old right-handed white female presenting to [facility] for evaluation of symptoms which began on Friday (01/23/2019). The patient states that she started to feel like she was going to have an MS flare-up because she developed pain and burning "all over" her body. She states she tried to take it easy. The symptoms seemed to improve but increased again on Friday, at which time her legs felt heavy in a symmetric fashion. She states they were "throbbing" and stiff, she tried to loosen them up by taking a walk on a trail and she states she went for half a mile. Yesterday, the patient states that she tried to get out of bed and fell to the ground. At that point, she noted weakness and numbness involving the right upper and lower extremity, particularly affecting the foot and the hand without involvement of the face. The patient states by the time she arrived in the emergency room, she had lost vision in her right eye. She also reports being in "tons of pain." At this time, the left side is asymptomatic. She states today the right-sided weakness/numbness and visual change are unchanged compared to yesterday. She states her last course of steroids were in April of 2018. The patient has a history of tumefactive multiple sclerosis which she states was initially diagnosed 10 years ago and currently follows with Dr. Olivares every 3 months on an outpatient basis. She is currently maintained on Tecfidera and has been compliant with this medication, although states that she took 6 weeks off of Tecfidera while she was being treated for left V1 herpes zoster and just started Tecfidera back 2 weeks ago. She states she was initially treated with Copaxone, which did not provide benefit, did not tolerate the flu-like symptoms associated with Avonex, states Gilenya did not work and has been on Tecfidera over the past 4 years. She tried 1 dose of Ocrevus and apparently had an allergic reaction and went back to Tecfidera. At baseline, the patient denies having significant weakness or numbness in the upper/lower extremities when she is not in an exacerbation. She does report urinary dribbling at baseline but denies cl incontinence or stool incontinence. She does have urinary urgency but denies numbness in genital/rectal region. She does have some difficulty swallowing. She denies baseline dysarthria or diplopia, but states she has had several instances of optic neuritis involving both eyes and with treatment there has been no persistent/residual visual deficits. The patient is well known to the Neurology Service and has been evaluated at [facility] on several occasions. Most recently on 08/11/2018, the patient presented with reported weakness involving the left upper and lower extremity and the physician was explaining to the patient that he would only order oral pain medication and stay away from the IV morphine/Dilaudid. The patient was attempting to point to where her pain was using her left arm, which was supposed to be a weak extremity and subsequently the patient left AMA. In addition, she was seen on 05/24/2018, also with complaints of weakness involving the left upper lower extremity. She was requesting Dilaudid or morphine for pain and when these medications were declined, the patient left AMA. The chart reflects a history of multiple admissions in the past and leaving AMA when the patient was not given IV pain medication. She was seen by Dr. Monsalve in April 2018, with complaints of lower extremity weakness. MRI of the brain completed at that time demonstrated white matter changes compatible with multiple sclerosis, but stable compared to previous MRI from May 12 2017, in particular, no enhancing lesions were noted. Patient also had MRI of lumbar spine completed at that time (05/01/2018), which demonstrated no significant disk herniation. The patient did receive a course of steroids, which she states was her last course. She denied Dr. Olivares pursuing any recent MRIs of the brain. The patient reports a previous history of seizures, which were reportedly thought to be secondary to multiple sclerosis. The patient states around 2 years ago she stopped several of her medications including Vimpat on her own and has not had any recurrent episodes since that time. ALLERGIES: AMOXICILLIN, CIPRO, TYLENOL #3, CEFTIN, TORADOL, LASIX, LATEX, NONSTEROIDAL ANTIINFLAMMATORY MEDICATIONS. HOME MEDICATIONS: Lisinopril, Skelaxin, Combivent, Tecfidera, Valium, Elavil 150 mg at bedtime (for post herpetic neuralgia), albuterol, and Synthroid. PAST MEDICAL HISTORY: Tumefactive masses diagnosed 10 years ago per patient, hypertension, hypothyroidism, asthma, fibromyalgia, GERD, obesity, occipital neuralgia, right V1 herpes zoster with post herpetic neuralgia and reported seizures as described above. PAST SURGICAL HISTORY: Two left shoulder surgeries, two left knee surgeries, and cholecystectomy. SOCIAL HISTORY: The patient quit smoking last year and previously smoked between half and 1 pack per day for 22 years. She denied alcohol or illicit drug use. She is with 1 child and lives in a house with her and 11-year-old daughter. She has not worked in 10 years. She has not been using any assistive devices to ambulate at home, but states that she has available devices including a walker. FAMILY HISTORY: The patient has a cousin with multiple sclerosis. Mother is in relatively good health. Father has a history of hypertension. REVIEW OF SYSTEMS: Fourteen system reviewed and no changes was identified. The review of systems documented in history and physical. PHYSICAL EXAM: The patient is on room in the observation unit, she was lying in bed, receptive to the examiner. Affect is flat. She is an accurate historian, obese, deconditioned, there are no family members at the bedside and patient appears of stated age. VITAL SIGNS: Blood pressure is 105/71 with a pulse of 118, respiratory rate 18 is 2, temperature is 97.8, weight is 99.8 kg, on a 5 foot 6 inch frame. SKIN/EXTREMITIES: Normal. HEAD AND NECK: No signs of trauma. Neck is supple without meningeal signs. Arteries are nontender and without bruits. HEART: Regular rate and rhythm. HIGHER CORTICAL FUNCTION/MENTAL STATUS: Patient was alert and oriented to time, place, and person. She was able to name repeat and read. There was no evidence of joint vision finger-nose extinction to double simultaneous stimulation or dysarthria. Cranial nerves II through XII: Pupils are equal and reactive to light symmetrically. No afferent pupillary defect. Visual pacheco were intact to confrontation on the left. On the right, the patient reports only being able to see fingers or hand movements in the right hemifield of the right eye. Visual acuity per Corinne chart with corrective lenses per patient was 20/200 on the right and 20/50 on the left. III, IV, : No ptosis. Extraocular movements were full. No nystagmus. V: Pinprick light touch intact in all 3 divisions. Motor 5 intact. VII: No facial asymmetry or weakness. VIII: Acuity intact to finger rub. IX and X: Palate midline.XI: trapezius strength intact. XII: Tongue protruded midline without fasciculations or atrophy. Motor examination there is no pronator drift. Normal bulk and tone is normal in visual muscle groups with no involuntary movements noted. Strength is 5/5 involving the left upper and lower extremity. On the right, the patient demonstrates ratchety give-way weakness, but with encouragement strength improves to 5/5. Sensory: Patient reports diminution to pinprick and light touch involving the right lower extremities with the left upper extremities were symmetric. There is no sensory level across the chest. Reflexes: 1/4 throughout and symmetric. Plantar responses flexor bilaterally. Quigley's is absent. Coordination: Fkrnco-na-khbe, xxrl-rl-fbpm movements are intact. Rapid alternating movements are symmetric with finger and foot tapping. DIAGNOSTIC TESTING: The patient had lab work including white blood count of 21.4 with hemoglobin of 14.1, platelet count 426, absolute lymphocyte count 3200. INR 0.9. Sodium 138, potassium 4.4, BUN 11 with creatinine 0.6. Urinalysis demonstrated 41 WBCs, 8 RBCs, large leuk esterase, negative nitrate. Chest x-ray, negative. IMPRESSION: 1. Right-sided weakness/numbness with right visual blurring, which may be secondary to a MS exacerbation versus pseudo exacerbation in the setting of underlying infection (urinary tract infection). It should be noted that on current neurologic examination, objectively the patient has no long track signs, focal weakness, or afferent pupillary defect, only the subjective report of right-sided numbness and right visual loss. 2. History of tumefactive MS, diagnosed 10 years ago, followed by Dr. Olivares and maintained on Tecfidera. 3. History of narcotic-seeking behavior, according to the medical record the patient has a history of signing out AMA if IV morphine/IV Dilaudid are not provided. In August 2018, when the patient presented with left-sided weakness, after being told the IV narcotics were not going to be provided, the patient began to use the left upper extremity to manipulate her cellphone and walked out of the hospital without significant left lower extremity weakness appreciated. 4. History of recurrent UTIs. 5. History of left V1 herpes zoster with post herpetic neuralgia, on Elavil. 6. Reported history of seizures, which spontaneously resolve 2 years ago after the patient discontinued multiple medications including Vimpat. 7. Multiple medical problems including hypertension, hypothyroidism, asthma, fibromyalgia, GERD, occipital neuralgia, and obesity. RECOMMENDATIONS: 1. I discussed my impression and plan with the patient and she expressed understanding, case was also discussed with nursing staff. 2. We will pursue MRI of the brain and orbits with and without contrast and ophthalmology consultation. 3. Treatment of urinary tract infection per primary service. 4. Will initiate on Solu-Medrol 250 every 6 hours x3 days. 5. Would recommend minimizing narcotic use. 6. Increase activity as tolerated. 7. Will follow with you. Thank you for allowing me to participate in care of your patient. JESSICA / COREY: [id number] / EMIGDIO
[2019-01-27] MEDS: DIAZEPAM 5 MG/ML (10 ML MDV) IVP PRN (20:09)
[2019-01-27] MEDS: HEPARIN SODIUM,PORCINE 5,000 UNIT/ML 1 ML VIAL SQ SCH (22:47)
[2019-01-28] MEDS: HYDROmorphone 0.5 MG/0.5 ML SYRINGE IVP PRN ×7 (01:45→23:29)
[2019-01-28] MEDS: methylPREDNISolone SOD SUCCI 250 MG in SODIUM CHLORIDE 0.9% 100 ML IVPB SCH ×4 (04:48→23:29)
[2019-01-28] MEDS: ALBUTEROL NEBULIZED 2.5 MG/3 ML INHALATION PRN ×2 (07:42→12:01)
[2019-01-28] MEDS: ONDANSETRON 4 MG/2 ML VIAL IVP PRN ×3 (07:55→23:29)
[2019-01-28] MEDS: HEPARIN SODIUM,PORCINE 5,000 UNIT/ML 1 ML VIAL SQ SCH ×3 (07:55→23:30)
[2019-01-28] MEDS: LISINOPRIL 10 MG TAB PO SCH (07:56)
[2019-01-28] MEDS: AMITRIPTYLINE HCL 50 MG TAB PO SCH (07:57)
[2019-01-28] MEDS: NICOTINE 14MG/24HR PATCH TRANSDERM SCH (08:00)
[2019-01-28] MEDS: DIAZEPAM 5 MG/ML (10 ML MDV) IVP PRN (08:07)
--- NOTE | 2019-01-28 09:58 | PN ---
PROGRESS NOTE DATE OF SERVICE: 01/28/2019 I had the pleasure of re-evaluating Lyndsay Uriarte in the observation unit. The patient is currently sitting up eating breakfast, she states her right-sided vision is better than it was yesterday, but the subjective right-sided numbness is unchanged. Upon my arrival to the room, the patient was manipulating things on her tray with her right hand without difficulty. The patient was seen by Ophthalmology yesterday and exam revealed no evidence of an afferent pupillary defect, similar to my evaluation, they did find mild optic disc pallor on the right with normal pink appearance on the left and diagnosed the patient with right retrobulbar neuritis. She is tolerating Solu- Medrol without difficulty. CURRENT MEDICATIONS: Albuterol, DuoNeb, Elavil 150 mg q.h.s., Flexeril, Valium p.r.n., Tecfidera, heparin subcu, Dilaudid p.r.n., Zestril, Solu-Medrol 250 mg q.6 hours, Zofran p.r.n. PHYSICAL EXAM: Upon my arrival to the patient's room, she was sitting up in bed, eating breakfast, she is an accurate historian, affect is flat. She is obese, deconditioned and appears of stated age. VITAL SIGNS: Blood pressure is 128/70 with a pulse of 74, respirations 16, temperature is 98.2. SKIN AND EXTREMITIES: Normal. HEAD AND NECK: Neck is supple without meningeal signs. HEART: Regular rate and rhythm. HIGHER CORTICAL FUNCTION: MENTAL STATUS: Patient was alert and oriented to time, place, and person. There was no aphasia or dysarthria. CRANIAL NERVES II through XII demonstrates no afferent pupillary defect. Visual pacheco were intact on the left. On the right, the patient was able to detect hand movement in all quadrants except the right superior quadrant. Extraocular movements were full without ptosis or nystagmus. There is no facial asymmetry. Palate is midline and tongue protrudes midline. MOTOR EXAMINATION: No pronator drift. Normal bulk and tone is noted in all major muscle groups. Strength is 5/5 throughout, initially demonstrating ratchety give-way weakness on the right, which improved to full strength with encouragement. Plantar responses flexor bilaterally. Quigley's is absent. COORDINATION: Zwkryw-wt-szzw, dgqp-er-inxc movements are intact. Rapid alternating movements are symmetric with finger tapping. DIAGNOSTIC TESTING: The patient had a followup urinalysis which demonstrated 1 WBC, 1 RBC, small leukocyte esterase, negative nitrate. The urine culture from the initial urinalysis on 01/26 demonstrated greater than 100,000 colonies of Strep agalactiae. IMPRESSION: 1. Right retrobulbar neuritis in a patient with a history of multiple prior episodes of optic neuritis by history and evidence of mild disc pallor on ophthalmology evaluation. The patient reports improvement with IV steroids. 2. History of tumefactive multiple sclerosis, diagnosed 10 years ago, following with Dr. Olivares and maintained on Tecfidera. 3. History of narcotic-seeking behavior as described in previous note. 4. History of recurrent urinary tract infections, followup urinalysis on this occasion was unrevealing, although initial urine culture has now demonstrated greater than 100,000 colonies of Strep agalactiae. 5. History of left V1 herpes zoster with post herpetic neuralgia, on Elavil. 6. Reported history of seizures, which spontaneously resolve 2 years ago after the patient discontinued multiple medications including Vimpat. RECOMMENDATION: 1. We will continue Solu-Medrol 250 mg q.6 for a total of 3 days. 2. The patient has been evaluated by Ophthalmology and MRI of the brain and orbits with and without contrast is pending at the time of this dictation. 3. Treatment of urine culture results if felt clinically indicated per primary service. 4. Minimize narcotic consumption. 5. Increase activity as tolerated. 6. Will follow with you. Thank you for allowing me to participate in the care of your patient. MMODL / IJN: [id number] / EMIGDIO
[2019-01-28] MEDS: Dimethyl Fumarate [Tecfidera] PO SCH ×2 (11:43→19:33)
[2019-01-28] MEDS: SODIUM CHLORIDE 0.9% 1,000 ML IV SCH ×2 (11:44→19:34)
--- NOTE | 2019-01-28 14:51 | MR ---
EXAMINATION TYPE: MR brain/orbits wo/w con DATE OF EXAM: 01/28/2019 COMPARISON: Prior brain MRI dated 05/12/2017 HISTORY: Weakness, MS exacerbation TECHNIQUE: Multiplanar, multisequence images of the brain and brainstem, orbits is performed without and with IV contrast, utilizing 10 mL intravenous Gadavist . FINDINGS: There is some motion on the exam. Diffusion weighted images demonstrate no evidence of a re cent infarct or other diffusion abnormality. There is no extra-axial fluid collection. There are whi te matter signal changes similar to prior exam however new lesion is present within the pericallosal region on the right axial image 19 measuring approximately 9 mm x 1o mm on sagittal image 25. Some sl ight progression of gliosis present along the encephalomalacia in the posterior occipital lobe on the right as compared to prior, subcortical white matter shows hyperintensity in the left occipital lobe . The ventricular system and cisternal spaces are normal in size and appearance. The brain volume is age appropriate. The orbits show symmetric appearance. No abnormal enhancement following contrast administration. Extr aocular muscles are unremarkable. Globes are intact. Midline structures demonstrate normal morphology. The craniocervical junction appears within normal limits. Post contrast images demonstrate no abnormal enhancement. The dural venous sinuses appear pa tent. The visualized sinuses are improved, there is mild mucosal disease present in the maxillary sin us, ethmoid air cells and the globes are intact. Improved aeration of the temporal bone on the right. IMPRESSION: Some progression in white matter demyelination is described. No enhancing plaque is noted . Orbits are symmetric and unremarkable. Correlate for possible remote cerebral vascular accident
[2019-01-28 16:41] LABS: Glucose,Whole Blood 216 mg/dL (75-99)
[2019-01-28] MEDS: INSULIN ASPART (NovoLOG) 100 UNIT/ML VIAL SQ SCH ×2 (17:22→20:47)
[2019-01-28] MEDS: DIAZEPAM 5 MG/ML 2 ML INJ IVP PRN (19:51)
[2019-01-28 20:48] LABS: Glucose,Whole Blood 207 mg/dL (75-99)
--- NOTE | 2019-01-28 23:40 | P.PN ---
Subjective Progress Note Date: 01/28/19 Principal diagnosis: Acute MS exacerbation Patient is a 39-year-old female with a known history of multiple sclerosis with frequent admissions, hypertension, GERD, fibromyalgia, asthma and history of seizure disorder came to the complaints of right-sided weakness. Patient says that she has been having numbness of the right upper and lower extremities and also tingling sensation for the past 3 days and is getting worse.. Patient says that it appears similar to her previous MS flareup. Patient did complain of bloody vision when she came to ER. Otherwise denied any complains of headache or dizziness. No eye pain. No chest pain or shortness of breath. No fever no chills. No complaints of abdominal pain. Patient does have some nausea. No ulcers or vomiting. No diarrhea. Denied any recent illnesses. Patient is complaining of right-sided pain and generalized pain and is requesting IV pain medications.. Chest x-ray showed no acute cardiac process EKG showed normal sinus rhythm WBC 21.4 UA showed cloudy and large leukocyte esterase, elevated WBC count and squamous epithelial cells. Repeat UA was ordered. 01/28/2019 Patient is still complaining of right-sided numbness and weakness and pain. MRI of the brain was done today. She was seen by ophthalmology and findings are consistent with optic neuritis. Patient is being continued on IV steroids and pain management with IV Dilaudid 0.5 mg every 4 hourly. No fever no chills. No headache or dizziness or lightheadedness. No complaints of abdominal pain. No nausea vomiting. Repeat urinalysis showed no signs of infection. Current medications reviewed. Objective - Vital Signs Vital signs: Vital Signs Temp 98.0 F 01/28/19 20:36 Pulse 110 H 01/28/19 20:36 Resp 18 01/28/19 20:36 BP 129/84 01/28/19 20:36 Pulse Ox 95 01/28/19 20:36 Intake & Output 01/28/19 01/28/19 01/29/19 06:59 18:59 06:59 Intake Total 600 660 Output Total 1400 Balance -800 660 Intake: Oral 600 660 Output: Urine 1400 Other: Voiding Method Bedside Commode Bedside Commode # Voids 1 1 # Bowel Movements 1 - Exam PHYSICAL EXAMINATION: Patient is lying in the bed comfortably, no acute distress, awake alert and oriented.. HEENT: Normocephalic. Neck is supple. Pupils reactive. Nostrils clear. Oral cavity is moist. Ears reveal no drainage. Neck reveals no JVD, carotid bruits, or thyromegaly. CHEST EXAMINATION: Trachea is central. Symmetrical expansion. Lung pacheco clear to auscultation and percussion. CARDIAC: Normal S1, S2 with no gallops. No murmurs ABDOMEN: Soft. Bowel sounds normal. No organomegaly. No abdominal bruits. Extremities: reveal no edema. No clubbing or cyanosis Neurologically awake, alert, oriented x3 with well-coordinated movements. Minimal weakness on the right side. Skin: No rash or skin lesions. Psychiatric: Coperative. Nonsuicidal Musculoskeletal: No joint swelling or deformity. Normal range of motion. - Labs CBC & Chem 7: 01/26/19 15:25 01/26/19 15:25 Labs: Abnormal Lab Results - Last 24 Hours (Table) 01/28/19 01/28/19 Range/Units 16:39 20:41 POC Glucose (mg/dL) 216 H 207 H (75-99) mg/dL Microbiology - Last 24 Hours (Table) 01/26/19 15:35 Urine Culture - Final Urine,Clean Catch Strep agalactiae - (group b) Assessment and Plan Assessment: Right-sided numbness and tingling sensation. Likely due to acute MS flareup. MRI of the brain was ordered. Blurry vision on admission due to optic neuritis History of migraine headache Fibromyalgia Hypertension GERD Asthma History of seizure disorder Degenerative joint disease Abnormal urine sample. Repeat UA was ordered. History of bilateral optic neuritis with visual problems. Generalized chronic pain Depression Previous history of smoking and marijuana use DVT prophylaxis with heparin subcu Morbid obesity BMI 35.5 Plan: Patient be continued on IV steroids and pain management with IV Dilaudid 0.5 mg every 3-4 hours. MRI of the brain report. Ophthalmologic has seen the patient .. Ophthalmologic was consulted to rule out optic neuritis. Neurology is on board. Continue the home medications and follow up closely. Further recommendations based on the clinical course. Prognosis is guarded. Time with Patient: Greater than 30
[2019-01-29] MEDS: HYDROmorphone 0.5 MG/0.5 ML SYRINGE IVP PRN ×6 (03:22→23:27)
[2019-01-29 04:06] LABS: Glucose,Whole Blood 160 mg/dL (75-99)
[2019-01-29] MEDS: SODIUM CHLORIDE 0.9% 1,000 ML IV SCH (04:57)
[2019-01-29] MEDS: methylPREDNISolone SOD SUCCI 250 MG in SODIUM CHLORIDE 0.9% 100 ML IVPB SCH ×3 (05:08→17:51)
[2019-01-29 07:15] LABS: Glucose,Whole Blood 158 mg/dL (75-99)
[2019-01-29] MEDS: HEPARIN SODIUM,PORCINE 5,000 UNIT/ML 1 ML VIAL SQ SCH ×2 (07:32→15:33)
[2019-01-29] MEDS: INSULIN ASPART (NovoLOG) 100 UNIT/ML VIAL SQ SCH ×4 (07:32→21:43)
[2019-01-29] MEDS: LISINOPRIL 10 MG TAB PO SCH (07:32)
[2019-01-29] MEDS: AMITRIPTYLINE HCL 50 MG TAB PO SCH (07:32)
[2019-01-29] MEDS: NICOTINE 14MG/24HR PATCH TRANSDERM SCH (07:32)
[2019-01-29] MEDS: DIAZEPAM 5 MG/ML 2 ML INJ IVP PRN ×2 (07:33→19:50)
[2019-01-29] MEDS: Dimethyl Fumarate [Tecfidera] PO SCH ×2 (07:41→21:27)
[2019-01-29 09:05] LABS: African American GFR (CKD) >90 (>60 ml/min/1.73 sqM); Anion Gap 9 mmol/L; Blood Urea Nitrogen 15 mg/dL (7-17); Calcium 9.1 mg/dL (8.4-10.2); Carbon Dioxide 26 mmol/L (22-30); Chloride 103 mmol/L (98-107); Glucose 161 mg/dL (74-99); Potassium 4.2 mmol/L (3.5-5.1); Sodium 138 mmol/L (137-145)
[2019-01-29 09:09] LABS: Basophils % (A) 0 %; Eosinophils % (A) 0 %; HCT 39.2 % (34.0-46.0); HGB 12.5 gm/dL (11.4-16.0); Lymphocytes # (A) 1.3 k/uL (1.0-4.8); Lymphocytes % (A) 4 %; MCH 28.5 pg (25.0-35.0); MCHC 31.8 g/dL (31.0-37.0); MCV 89.5 fL (80.0-100.0); Mean Platelet Volume 7.8; Monocytes # (A) 0.6 k/uL (0-1.0); Monocytes % (A) 2 %; Neutrophils # (A) 29.7 k/uL (1.3-7.7); Neutrophils % (A) 93 %; Platelet Count 383 k/uL (150-450); RBC 4.38 m/uL (3.80-5.40); RDW 13.2 % (11.5-15.5); WBC 31.8 k/uL (3.8-10.6)
[2019-01-29] MEDS: ONDANSETRON 4 MG/2 ML VIAL IVP PRN ×2 (11:36→19:29)
[2019-01-29 12:08] LABS: Glucose,Whole Blood 214 mg/dL (75-99)
--- NOTE | 2019-01-29 16:49 | PN ---
PROGRESS NOTE DATE OF SERVICE: 01/29/2019 I had the pleasure of re-evaluating Lyndsay Uriarte. When I entered the patient's room she was lying in bed sleeping, easily arousable. She states the vision from the right eye is better as well as the numbness involving the right hand/foot. The patient is tolerating steroids without difficulty and is anxious to go home tomorrow. She intends to follow up with her outpatient neurologist after discharge. CURRENT MEDICATIONS: 1. Ventolin. 2. DuoNeb. 3. Elavil 150 mg at bedtime. 4. Flexeril. 5. Valium p.r.n. 6. Tecfidera. 7. Heparin subcutaneously. 8. Dilaudid p.r.n. 9. NovoLog. 10.Zestril. 11.Solu-Medrol. 12.Zofran p.r.n. PHYSICAL EXAMINATION: Upon arrival in the patient's room, she was sleeping, easily arousable. She is obese, deconditioned, appears of stated age. Affect is flat. VITAL SIGNS: Blood pressure is 139/92 with pulse of 102, respiratory rate 18. Temperature is 97.3. SKIN AND EXTREMITIES: Normal. HEAD AND NECK: Neck is supple without meningeal signs. HEART: Regular rate and rhythm. HIGHER CORTICAL FUNCTION: MENTAL STATUS: Patient was alert and oriented to time, place and person. There was no aphasia or dysarthria. CRANIAL NERVES II THROUGH XII: Cranial nerves II through XII demonstrated no afferent pupillary defect. Visual pacheco were intact to finger count in all quadrants on the left and to hand movement in all quadrants on the right. Extraocular movements were full with ptosis or nystagmus. There was no facial asymmetry. Palate is midline and tongue protrudes midline. Shoulder shrug is equal. MOTOR EXAMINATION: No pronator drift. Normal bulk and tone is noted in all major muscle groups. Strength is 5/5 throughout. Plantar response is flexor bilaterally. Quigley's is absent. COORDINATION: Wiisfq-yr-tkui, miob-wr-[id number] movements are intact. Rapid alternating movements are symmetric with finger tapping. GAIT AND STATION: Patient was able to rise from a seated position without significant difficulty. He ambulated with a narrow based gait with equal arm swing. He was able to briefly get on his heels and toes. Romberg is negative. DIAGNOSTIC TESTING: Patient had MRI of the brain and orbits completed with and without contrast. This study was initially compared to a previous MRI from 05/12/2017 and re-evaluated compared to the previous study of 05/01/2018. On this study, the orbital views were unremarkable. Comparing the most recent study on 05/01/2018 to the current study, there is a new plaque in the periventricular white matter adjacent to the posterior horn of the right lateral ventricle which does not enhance. No enhancing lesions were noted. There was no evidence of acute stroke. The patient does have long-standing encephalomalacia in the right occipital region, which is present on prior scans dating back to at least 05/12/2017. IMPRESSION: 1. Right retrobulbar neuritis in a patient with a history of multiple prior episodes of optic neuritis by history and evidence of mild right optic disc pallor on ophthalmology evaluation. The patient reports improvement on IV steroids. 2. History of tumefactive multiple sclerosis, diagnosed 10 years ago, followed by Dr. Olivares and maintained on Tecfidera. Previous medications exposures which were either ineffective or not tolerated include Copaxone, Avonex, Gilenya, and the patient reports having an allergic reaction to Ocrevus. 3. History of narcotic-seeking behavior. 4. History of recurrent urinary tract infections. 5. History of left V1 herpes zoster with postherpetic neuralgia, on Elavil. 6. Reported history of seizures, which spontaneously resolved 2 years ago after the patient discontinued multiple medications, including Vimpat. RECOMMENDATIONS: 1. The patient will continue Solu-Medrol 250 mg q.6, currently on day #2 of 3. 2. The patient has been evaluated by Ophthalmology. MRI of the orbits was unrevealing. MRI of the brain did demonstrate one new right periventricular lesion compared to prior MRI from 05/01/2018 which does not enhance, and no enhancing lesions are present on the current study. 3. Nursing staff were provided with a prescription for a 2-week prednisone taper. 4. The patient should follow up with Dr. Olivares, her outpatient neurologist, within the next 2-4 weeks. 5. Minimize narcotic consumption. 6. Increase activity as tolerated. 7. My neurology coverage for Amadeo Padilla ends today, and further management will be completed by the patient's primary service. Thank you very much for the opportunity to participate in the care of your patient. MMODL / IJN: [id number] / EMIGDIO
[2019-01-29 16:55] LABS: Glucose,Whole Blood 170 mg/dL (75-99)
[2019-01-29] MEDS: ALBUTEROL NEBULIZED 2.5 MG/3 ML INHALATION PRN (19:59)
[2019-01-29 20:48] LABS: Glucose,Whole Blood 160 mg/dL (75-99)
--- NOTE | 2019-01-29 21:44 | P.PN ---
Subjective Progress Note Date: 01/29/19 Principal diagnosis: Acute MS exacerbation Patient is a 39-year-old female with a known history of multiple sclerosis with frequent admissions, hypertension, GERD, fibromyalgia, asthma and history of seizure disorder came to the complaints of right-sided weakness. Patient says that she has been having numbness of the right upper and lower extremities and also tingling sensation for the past 3 days and is getting worse.. Patient says that it appears similar to her previous MS flareup. Patient did complain of bloody vision when she came to ER. Otherwise denied any complains of headache or dizziness. No eye pain. No chest pain or shortness of breath. No fever no chills. No complaints of abdominal pain. Patient does have some nausea. No ulcers or vomiting. No diarrhea. Denied any recent illnesses. Patient is complaining of right-sided pain and generalized pain and is requesting IV pain medications.. Chest x-ray showed no acute cardiac process EKG showed normal sinus rhythm WBC 21.4 UA showed cloudy and large leukocyte esterase, elevated WBC count and squamous epithelial cells. Repeat UA was ordered. 01/28/2019 Patient is still complaining of right-sided numbness and weakness and pain. MRI of the brain was done today. She was seen by ophthalmology and findings are consistent with optic neuritis. Patient is being continued on IV steroids and pain management with IV Dilaudid 0.5 mg every 4 hourly. No fever no chills. No headache or dizziness or lightheadedness. No complaints of abdominal pain. No nausea vomiting. Repeat urinalysis showed no signs of infection. 01/29/2019 Patient is still complaining of right-sided numbness and weakness but improved. MRI of the brain showed no new changes. Ophthalmology evaluation revealed right at the bulbar optic neuritis. Bloody vision did improve. Patient is being continued on IV steroids and last dose will be tomorrow morning. Prescription for tapering steroid doses was already provided by neurology. No complaints of chest pain or shortness of breath. No nausea vomiting or abdominal pain. Tolerating oral diet. Limit narcotic pain medication use. Anticipate discharged tomorrow morning. Current medications reviewed. Objective - Vital Signs Vital signs: Vital Signs Temp 98.0 F 01/29/19 14:40 Pulse 110 H 01/29/19 14:40 Resp 16 01/29/19 14:40 BP 146/86 01/29/19 14:40 Pulse Ox 92 L 01/29/19 14:40 Intake & Output 01/28/19 01/29/19 01/29/19 18:59 06:59 18:59 Intake Total 660 500 Balance 660 500 Intake: Oral 660 500 Other: Voiding Method Bedside Commode Bedside Commode Bedside Commode # Voids 1 2 4 - Exam PHYSICAL EXAMINATION: Patient is lying in the bed comfortably, no acute distress, awake alert and oriented.. HEENT: Normocephalic. Neck is supple. Pupils reactive. Nostrils clear. Oral cavity is moist. Ears reveal no drainage. Neck reveals no JVD, carotid bruits, or thyromegaly. CHEST EXAMINATION: Trachea is central. Symmetrical expansion. Lung pacheco clear to auscultation and percussion. CARDIAC: Normal S1, S2 with no gallops. No murmurs ABDOMEN: Soft. Bowel sounds normal. No organomegaly. No abdominal bruits. Extremities: reveal no edema. No clubbing or cyanosis Neurologically awake, alert, oriented x3 with well-coordinated movements. Minimal weakness on the right side. Skin: No rash or skin lesions. Psychiatric: Coperative. Nonsuicidal Musculoskeletal: No joint swelling or deformity. Normal range of motion. - Labs CBC & Chem 7: 01/29/19 08:08 01/29/19 08:08 Labs: Abnormal Lab Results - Last 24 Hours (Table) 01/28/19 01/28/19 01/29/19 Range/Units 16:39 20:41 04:02 WBC (3.8-10.6) k/uL Neutrophils # (1.3-7.7) k/uL Glucose (74-99) mg/dL POC Glucose (mg/dL) 216 H 207 H 160 H (75-99) mg/dL 01/29/19 01/29/19 01/29/19 Range/Units 07:10 08:08 08:08 WBC 31.8 H (3.8-10.6) k/uL Neutrophils # 29.7 H (1.3-7.7) k/uL Glucose 161 H (74-99) mg/dL POC Glucose (mg/dL) 158 H (75-99) mg/dL 01/29/19 Range/Units 12:07 WBC (3.8-10.6) k/uL Neutrophils # (1.3-7.7) k/uL Glucose (74-99) mg/dL POC Glucose (mg/dL) 214 H (75-99) mg/dL Assessment and Plan Assessment: Right-sided numbness and tingling sensation. Possible acute MS flareup. MRI of the brain showed no change changes.. Blurry vision on admission due to right retrobulbar optic neuritis. Improved now. On IV steroids. Multiple sclerosis diagnosed 10 years ago. Currently and neurology follow-up. Maintained on Tecfidera. Ineffective multiple other medications. Narcotic pain medication seeking behavior History of hepatitic neurolalgia. Maintained on Elavil. History of migraine headache Fibromyalgia Hypertension GERD Asthma History of seizure disorder Degenerative joint disease Abnormal urine sample. Repeat UA was ordered. Showed no infection. History of bilateral optic neuritis with visual problems. Generalized chronic pain Depression Previous history of smoking and marijuana use DVT prophylaxis with heparin subcu Morbid obesity BMI 35.5 Plan: Patient be continued on IV steroids and pain management with IV Dilaudid 0.5 mg every 3-4 hours. MRI of the brain report reviewed. Ophthalmologic has seen the patient.. Ophthalmologic evaluation consistent with right retrobulbar optic neuritis. Continued on IV steroids. Neurology is on board. Continue the home medications and follow up closely. Further recommendations based on the clinical course. Prognosis is guarded. Time with Patient: Greater than 30
[2019-01-30] MEDS: HEPARIN SODIUM,PORCINE 5,000 UNIT/ML 1 ML VIAL SQ SCH ×2 (00:52→07:33)
[2019-01-30] MEDS: ONDANSETRON 4 MG/2 ML VIAL IVP PRN ×2 (03:27→11:21)
[2019-01-30] MEDS: HYDROmorphone 0.5 MG/0.5 ML SYRINGE IVP PRN ×5 (03:27→14:35)
[2019-01-30] MEDS: ALBUTEROL NEBULIZED 2.5 MG/3 ML INHALATION PRN ×2 (03:36→08:54)
[2019-01-30] MEDS ORDERED: METHYLPREDNISOLONE SOD SUCCI IVPB ONE (06:00)
[2019-01-30] MEDS ORDERED: SODIUM CHLORIDE 0.9% IVPB ONE (06:00)
[2019-01-30 07:01] LABS: Glucose,Whole Blood 192 mg/dL (75-99)
[2019-01-30] MEDS: AMITRIPTYLINE HCL 50 MG TAB PO SCH (07:32)
[2019-01-30] MEDS: NICOTINE 14MG/24HR PATCH TRANSDERM SCH (07:32)
[2019-01-30] MEDS: LISINOPRIL 10 MG TAB PO SCH (07:33)
[2019-01-30] MEDS: INSULIN ASPART (NovoLOG) 100 UNIT/ML VIAL SQ SCH ×2 (07:33→14:20)
[2019-01-30] MEDS: Dimethyl Fumarate [Tecfidera] PO SCH (07:49)
[2019-01-30] MEDS: DIAZEPAM 5 MG/ML 2 ML INJ IVP PRN (08:26)
[2019-01-30 09:08] LABS: Basophils % (A) 0 %; Eosinophils # (A) 0.1 k/uL (0-0.7); Eosinophils % (A) 0 %; HCT 38.5 % (34.0-46.0); HGB 12.1 gm/dL (11.4-16.0); Lymphocytes # (A) 1.5 k/uL (1.0-4.8); Lymphocytes % (A) 6 %; MCH 28.1 pg (25.0-35.0); MCHC 31.4 g/dL (31.0-37.0); MCV 89.7 fL (80.0-100.0); Mean Platelet Volume 7.5; Monocytes # (A) 0.7 k/uL (0-1.0); Monocytes % (A) 3 %; Neutrophils # (A) 24.4 k/uL (1.3-7.7); Neutrophils % (A) 91 %; Platelet Count 390 k/uL (150-450); RBC 4.29 m/uL (3.80-5.40); RDW 12.7 % (11.5-15.5); WBC 26.8 k/uL (3.8-10.6)
[2019-01-30 12:30] LABS: Glucose,Whole Blood 184 mg/dL (75-99)
[2019-01-30 13:29] VITALS: PULSE 109; RESP 16; TEMP 97.8
[2019-01-30 13:31] VITALS: BP 178/98
--- NOTE | 2019-01-30 15:02 | P.DS ---
Providers Date of admission: 01/27/19 15:23 Expected date of discharge: 01/30/19 Attending physician: Rodolfo Soto Consults: 01/26/19 17:29 Consult Physician Routine Consulting Provider: Garrick Andrade Consult Reason/Comments: MS flare Do you want consulting provider notified?: Yes 01/27/19 15:24 Consult Physician Routine Consulting Provider: Brent Rios Consult Reason/Comments: right eye vision loss/ blurriness Do you want consulting provider notified?: Yes Primary care physician: [facility] Course: Ms. Uriarte is a 39-year-old female with a past medical history of multiple sclerosis and frequent admissions, hypertension, GERD, pathologic, asthma, history of seizure disorder coming in with right-sided weakness. Patient was treated for an MS flare by neurology who followed the patient during the hospital stay. Patient showed significant improvement in her symptoms after being on IV steroids. Her pain was also managed with IV Dilaudid. Today the patient is sitting up in the bed appears to be in no acute distress. She states that she is back to her normal state and wants to go home. MRI of the brain showed no new changes. Ophthalmology evaluation revealed right bulbar optic neuritis. But patient's symptoms improved with steroids and today her vision is back to normal. Neurology suggested that she go home on a tapering dose of steroids and the prescription was already given to her by them. Vital Signs - 24 hr 01/29/19 01/29/19 01/29/19 19:59 20:14 20:50 Temperature 98.2 F Pulse Rate 98 94 Pulse Rate [ 105 H Pulse Oximetery ] Respiratory 16 Rate Blood Pressure 135/88 [Right Arm] O2 Sat by Pulse 95 Oximetry 01/30/19 01/30/19 01/30/19 03:36 03:45 04:35 Temperature 98.2 F Pulse Rate 104 H 100 Pulse Rate [ 72 Pulse Oximetery ] Respiratory 18 Rate Blood Pressure 137/89 [Right Arm] O2 Sat by Pulse 93 L Oximetry 01/30/19 01/30/19 08:54 13:28 Temperature 97.8 F Pulse Rate 100 Pulse Rate [ 109 H Pulse Oximetery ] Respiratory 16 Rate Blood Pressure 178/98 [Right Arm] O2 Sat by Pulse 96 Oximetry PHYSICAL EXAMINATION: Patient is lying in the bed comfortably, no acute distress, awake alert and oriented.. HEENT: Normocephalic. Neck is supple. Pupils reactive. Nostrils clear. Oral cavity is moist. Ears reveal no drainage. Neck reveals no JVD, carotid bruits, or thyromegaly. CHEST EXAMINATION: Trachea is central. Symmetrical expansion. Lung pacheco clear to auscultation and percussion. CARDIAC: Normal S1, S2 with no gallops. No murmurs ABDOMEN: Soft. Bowel sounds normal. No organomegaly. No abdominal bruits. Extremities: reveal no edema. No clubbing or cyanosis Neurologically awake, alert, oriented x3 with well-coordinated movements. Minimal weakness on the right side. Skin: No rash or skin lesions. Psychiatric: Coperative. Nonsuicidal DISCHARGE DIAGNOSIS Right-sided numbness and tingling sensation. Possible acute MS flareup. MRI of the brain showed no change changes.. Blurry vision on admission due to right retrobulbar optic neuritis. Improved now. Multiple sclerosis diagnosed 10 years ago. Narcotic pain medication seeking behavior History of hepatitic neurolalgia. Maintained on Elavil. History of migraine headache Fibromyalgia Hypertension GERD Asthma History of seizure disorder Degenerative joint disease Abnormal urine sample. Repeat UA was ordered. Showed no infection. History of bilateral optic neuritis with visual problems. Generalized chronic pain Depression Previous history of smoking and marijuana use DVT prophylaxis with heparin subcu Morbid obesity BMI 35.5 Follow-up: Patient is advised to follow up with her primary care physician within one week. She's also advised to have a follow-up with neurology. Patient is being discharged home in fair condition. Patient Condition at Discharge: Good Plan - Discharge Summary Discharge Rx Participant: No New Discharge Prescriptions: Continue Ipratropium/Albuterol Sulfate [Combivent Respimat Inhaler] 1 puff INHALATION RT-QID PRN PRN Reason: Shortness Of Breath Albuterol Inhaler [Ventolin Hfa Inhaler] 2 puff INHALATION RT-QID PRN PRN Reason: Shortness Of Breath Albuterol Nebulized [Ventolin Nebulized] 2.5 mg INHALATION RT-QID PRN PRN Reason: Shortness Of Breath Lisinopril [Zestril] 10 mg PO DAILY Diazepam [Valium] 5 mg PO BID PRN PRN Reason: Anxiety Metaxalone [Skelaxin] 400 mg PO TID Dimethyl Fumarate [Tecfidera] 240 mg PO BID Amitriptyline HCl 150 mg PO DAILY Discharge Medication List Albuterol Inhaler [Ventolin Hfa Inhaler] 2 puff INHALATION RT-QID PRN 12/09/13 [History] Ipratropium/Albuterol Sulfate [Combivent Respimat Inhaler] 1 puff INHALATION RT- QID PRN 12/09/13 [History] Albuterol Nebulized [Ventolin Nebulized] 2.5 mg INHALATION RT-QID PRN 01/26/18 [History] Diazepam [Valium] 5 mg PO BID PRN 05/24/18 [History] Lisinopril [Zestril] 10 mg PO DAILY 05/24/18 [History] Metaxalone [Skelaxin] 400 mg PO TID 08/11/18 [History] Dimethyl Fumarate [Tecfidera] 240 mg PO BID 09/20/18 [History] Amitriptyline HCl 150 mg PO DAILY 01/26/19 [History] Follow up Appointment(s)/Referral(s): Sj Fitch MD [Primary Care Provider] - 1-2 days Patient Instructions/Handouts: Multiple Sclerosis (DC) Activity/Diet/Wound Care/Special Instructions: activity as tolerated regular diet as tolerated follow up with known neurologist Discharge Disposition: HOME SELF-CARE
== END 2019-01-30 14:52 | disposition home or self-care (01) | DRG 59 ==
LOC: EC 13:07 → 1SOBS 16:52 → OBSVTOIN 01-27 15:23 → 4MS4W 01-28 14:56
PROVIDERS: ADMIT Hospitalist; ATTEND Hospitalist
DX: G35 Multiple sclerosis (principal); H46.12 Retrobulbar neuritis, left eye; E66.01 Morbid (severe) obesity due to excess calories; E03.9 Hypothyroidism, unspecified; E28.2 Polycystic ovarian syndrome; F32.9 Major depressive disorder, single episode, unspecified; F41.9 Anxiety disorder, unspecified; G40.909 Epilepsy, unspecified, not intractable, without status epilepticus; G89.29 Other chronic pain; I10 Essential (primary) hypertension; J45.909 Unspecified asthma, uncomplicated; K21.9 Gastro-esophageal reflux disease without esophagitis; M79.7 Fibromyalgia; E55.9 Vitamin D deficiency, unspecified; G43.909 Migraine, unspecified, not intractable, without status migrainosus; M19.90 Unspecified osteoarthritis, unspecified site; Z68.35 Body mass index [BMI] 35.0-35.9, adult; Z79.899 Other long term (current) drug therapy; Z87.440 Personal history of urinary (tract) infections; Z87.891 Personal history of nicotine dependence; Z90.49 Acquired absence of other specified parts of digestive tract; Z87.01 Personal history of pneumonia (recurrent); Z88.5 Allergy status to narcotic agent; Z88.0 Allergy status to penicillin; Z88.6 Allergy status to analgesic agent; Z88.1 Allergy status to other antibiotic agents; Z91.040 Latex allergy status; Z82.49 Family history of ischemic heart disease and other diseases of the circulatory system
CPT/HCPCS: 36415; 70543; 70553; 71046; 80048; 80053; 81001; 83735; 84484; 85025; 85610; 85730; 87086; 93005; 94640; 96361; 96374; 96375; 96376; 99285

== ENCOUNTER 2019-03-15 16:33 | Inpatient (IN) | payer MEDICARE, OTHER ==
[2019-03-15] MEDS ORDERED: SODIUM CHLORIDE 0.9% 1,000 ML IV STA (17:19)
[2019-03-15] MEDS ORDERED: ONDANSETRON 4 MG/2 ML VIAL IVP STA (17:20)
[2019-03-15] MEDS ORDERED: methylPREDNISolone SOD SUCCI 125 MG/2 ML VIAL IV STA ×2 (17:20→20:22)
[2019-03-15 17:51] LABS: Basophils # (A) 0.1 k/uL (0-0.2); Basophils % (A) 1 %; Eosinophils # (A) 0.6 k/uL (0-0.7); Eosinophils % (A) 4 %; HCT 36.8 % (34.0-46.0); HGB 12.4 gm/dL (11.4-16.0); Lymphocytes # (A) 2.5 k/uL (1.0-4.8); Lymphocytes % (A) 17 %; MCH 29.3 pg (25.0-35.0); MCHC 33.7 g/dL (31.0-37.0); MCV 86.9 fL (80.0-100.0); Mean Platelet Volume 6.9; Monocytes # (A) 0.8 k/uL (0-1.0); Monocytes % (A) 5 %; Neutrophils # (A) 10.1 k/uL (1.3-7.7); Neutrophils % (A) 71 %; Platelet Count 390 k/uL (150-450); RBC 4.23 m/uL (3.80-5.40); RDW 14.2 % (11.5-15.5); WBC 14.2 k/uL (3.8-10.6)
[2019-03-15 18:00] LABS: ALT 41 U/L (9-52); AST 43 U/L (14-36); African American GFR (CKD) >90 (>60 ml/min/1.73 sqM); Albumin 3.7 g/dL (3.5-5.0); Alkaline Phosphatase 53 U/L (38-126); Anion Gap 7 mmol/L; Blood Urea Nitrogen 7 mg/dL (7-17); Carbon Dioxide 27 mmol/L (22-30); Chloride 104 mmol/L (98-107); Glucose 89 mg/dL (74-99); Sodium 138 mmol/L (137-145); Total Bilirubin 0.3 mg/dL (0.2-1.3); Total Protein 6.1 g/dL (6.3-8.2)
[2019-03-15 18:09] LABS: Partial Thromboplastin Time 24.6 sec (22.0-30.0); Prothrombin Time 10.5 sec (9.0-12.0)
[2019-03-15] MEDS ORDERED: HYDROcodone/APAP 5-325MG 1 EACH TAB PO STA (19:03)
--- NOTE | 2019-03-15 19:06 | ED ---
Extremity Problem HPI <Cheo Rowland - Last Filed: 03/15/19 20:00> - General Source: patient, RN notes reviewed, old records reviewed Mode of arrival: wheelchair Limitations: physical limitation <JenniferTracie - Last Filed: 03/15/19 20:20> - General Chief complaint: Extremity Problem,Nontraumatic Stated complaint: limb swelling Time Seen by Provider: 03/15/19 17:05 - History of Present Illness Initial comments: This Patient is a 39-year-old female who presents emergency department today for evaluation with complaints of lower extremityany weakness, complains of pain and swelling in bilateral legs. She states she's had some vomiting and nausea. Patient reports that she's also had bilateral lower extremity swelling worsening over the past 2 days. She states that she is had this for the visits related to her MS. She denies any chest pain or shortness of breath. Patient states that she has not had any Lasix to improve or swelling. She does complain of some weakness in her lower extremities and right arm. Patient also questions that she has urinary tract infection. She denies any fevers or chills or significant back pain. (Tracie Rodriguez) - Related Data Home Medications Medication Instructions Recorded Confirmed Albuterol Inhaler [Ventolin Hfa 2 puff INHALATION RT-QID PRN 12/09/13 03/15/19 Inhaler] Ipratropium/Albuterol Sulfate 1 puff INHALATION RT-QID PRN 12/09/13 03/15/19 [Combivent Respimat Inhaler] Albuterol Nebulized [Ventolin 2.5 mg INHALATION RT-QID PRN 01/26/18 03/15/19 Nebulized] Diazepam [Valium] 5 mg PO TID PRN 05/24/18 03/15/19 Lisinopril [Zestril] 10 mg PO DAILY 05/24/18 03/15/19 Metaxalone [Skelaxin] 400 mg PO TID 08/11/18 03/15/19 Dimethyl Fumarate [Tecfidera] 240 mg PO BID 09/20/18 03/15/19 Amitriptyline HCl 150 mg PO DAILY 01/26/19 03/15/19 Allergies Allergy/AdvReac Type Severity Reaction Status Date / Time amoxicillin [Amoxicillin] Allergy Severe Anaphylaxis, Verified 03/15/19 17:08 seizures ciprofloxacin [From Cipro] Allergy Severe Rash/Hives, Verified 03/15/19 17:08 seizures codeine phosphate Allergy Unknown Rash/Hives Verified 03/15/19 17:08 [From Tylenol-Codeine #3] cefuroxime axetil Allergy Rash/Hives Verified 03/15/19 17:08 [From Ceftin] ketorolac [From Toradol] Allergy Rash/Hives Verified 03/15/19 17:08 latex Allergy Rash/Hives Verified 03/15/19 17:08 NSAIDS (Non-Steroidal Allergy Rash/Hives/Lip Verified 03/15/19 17:08 Anti-Inflamma Swelling Review of Systems ROS Other: All systems not noted in ROS Statement are negative. <Cheo Rowland - Last Filed: 03/15/19 20:00> ROS Other: All systems not noted in ROS Statement are negative. <Tracie Rodriguez - Last Filed: 03/15/19 20:20> ROS Statement: Those systems with pertinent positive or pertinent negative responses have been documented in the HPI. Past Medical History Past Medical History: Asthma, Fibromyalgia, GERD/Reflux, Hypertension, Musculoskeletal Disorder, Neurologic Disorder, Pneumonia, Seizure Disorder Additional Past Medical History / Comment(s): Multiple Sclerosis, migraines, DJD, interstitial cystitis, UTI, PCOS, vit D deficiency, bilateral optic neuritis with visual problems, generalized chronic pain, numbness/tingling bilateral lower legs, tachycardia, c-diff 5-9-15, seizures from MS last one around 2014 History of Any Multi-Drug Resistant Organisms: C-DIFF Date of last positivie culture/infection: 2016 MDRO Source:: stool Past Surgical History: Cholecystectomy, Orthopedic Surgery Additional Past Surgical History / Comment(s): Lt shoulder rotator cuff repair 06/06/14, arthroscopic left knee 2000 & 2002, left shoulder reconstruction Past Anesthesia/Blood Transfusion Reactions: No Reported Reaction Additional Past Anesthesia/Blood Transfusion Reaction / Comment(s): Pt has never recieved blood. Past Psychological History: Anxiety, Depression, Depression Smoking Status: Former smoker Past Alcohol Use History: None Reported Past Drug Use History: Marijuana - Past Family History Mother Family Medical History: No Reported History Additional Family Medical History / Comment(s): mother is healthy Father Family Medical History: Hypertension <Tracie Rodriguez - Last Filed: 03/15/19 20:20> General Exam Limitations: physical limitation Head exam: Present: atraumatic, normocephalic, normal inspection Eye exam: Present: normal appearance, PERRL, EOMI. Absent: scleral icterus, conjunctival injection, periorbital swelling ENT exam: Present: normal exam, mucous membranes moist Neck exam: Present: normal inspection. Absent: tenderness, meningismus, ly mphadenopathy Respiratory exam: Present: normal lung sounds bilaterally. Absent: respiratory distress, wheezes, rales, rhonchi, stridor Cardiovascular Exam: Present: regular rate, normal rhythm, normal heart sounds. Absent: systolic murmur, diastolic murmur, rubs, gallop, clicks GI/Abdominal exam: Present: soft, normal bowel sounds. Absent: distended, tenderness, guarding, rebound, rigid Extremities exam: Present: normal inspection, full ROM, normal capillary refill, other (1+ pitting edema bilaterally.). Absent: tenderness, pedal edema, joint swelling, calf tenderness Back exam: Present: normal inspection Neurological exam: Present: alert, oriented X3, CN II-XII intact, abnormal gait (Patient planes of abnormal gait and leg weakness.). Absent: normal gait Expanded Patient oriented to: Present: person, place, time Speech: Present: fluid speech Cranial nerves: EOM's Intact: Normal Motor strength exam: RUE: 3, LUE: 5, RLE: 4 (Since of bilateral foot drop.), LLE: 4 Eye Response: (4) open spontaneously Motor Response: (6) obeys commands Verbal Response: (5) oriented [place] Total: 15 Psychiatric exam: Present: normal affect, normal mood Skin exam: Present: warm, dry, intact, normal color. Absent: rash <Tracie Rodriguez - Last Filed: 03/15/19 20:20> - General Exam Comments Initial Comments: 39-year-old female. Alert and oriented 3. No distress. (Tracie Rodriguez) Course <Cheo Rowland - Last Filed: 03/15/19 20:00> Vital Signs 03/15/19 03/15/19 03/15/19 16:39 17:53 19:23 Temperature 98.3 F Pulse Rate 101 H 97 101 H Respiratory 18 18 16 Rate Blood Pressure 131/75 119/70 119/70 O2 Sat by Pulse 98 93 L 98 Oximetry - Reevaluation(s) Reevaluation #1: 03/15/19 20:00 PA supervision: I personally evaluate this case and do agree with the assessment and plan I did discuss the case with Dr. Sandoval. Patient will be admitted. (Cheo Rowland) Medical Decision Making - Lab Data Result diagrams: 03/15/19 17:35 03/15/19 17:35 <Cheo Rowland - Last Filed: 03/15/19 20:00> - Lab Data Result diagrams: 03/15/19 17:35 03/15/19 17:35 - Radiology Data Radiology results: report reviewed <Tracie Rodriguez - Last Filed: 03/15/19 20:20> - Medical Decision Making Patient is a 39-year-old female who presents today with concerns for bilateral leg swelling, generalized weakness or lower extremities and right arm weakness. She states that she thinks he has MS flareup. Patient's labwork was reviewed. She has evidence of a urinary tract infection. Likely her UTIs caused a flare of her MS. Patient has been quite adamant requesting IV narcotic pain medication. I discussed the Patient receive an oral [place] but no IV pain medicine. Patient is well-known to myself and other ER providers for drug- seeking behavior. I did give Patient 1 dose of IV Solu-Medrol for concern for MS exacerbation of weakness. Lab work was otherwise reviewed and unremarkable. Patient will have urine culture and was given 1 dose of Rocephin. (Tracie Rodriguez) - Lab Data Lab Results 03/15/19 03/15/19 03/15/19 Range/Units 17:35 17:35 17:35 WBC 14.2 H (3.8-10.6) k/uL RBC 4.23 (3.80-5.40) m/uL Hgb 12.4 (11.4-16.0) gm/dL Hct 36.8 (34.0-46.0) % MCV 86.9 (80.0-100.0) fL MCH 29.3 (25.0-35.0) pg MCHC 33.7 (31.0-37.0) g/dL RDW 14.2 (11.5-15.5) % Plt Count 390 (150-450) k/uL Neutrophils % 71 % Lymphocytes % 17 % Monocytes % 5 % Eosinophils % 4 % Basophils % 1 % Neutrophils # 10.1 H (1.3-7.7) k/uL Lymphocytes # 2.5 (1.0-4.8) k/uL Monocytes # 0.8 (0-1.0) k/uL Eosinophils # 0.6 (0-0.7) k/uL Basophils # 0.1 (0-0.2) k/uL PT 10.5 (9.0-12.0) sec INR 1.0 (<1.2) APTT 24.6 (22.0-30.0) sec Sodium 138 (137-145) mmol/L Potassium 4.0 (3.5-5.1) mmol/L Chloride 104 (98-107) mmol/L Carbon Dioxide 27 (22-30) mmol/L Anion Gap 7 mmol/L BUN 7 (7-17) mg/dL Creatinine 0.69 (0.52-1.04) mg/dL Est GFR (CKD-EPI)AfAm >90 (>60 ml/min/1.73 sqM) Est GFR (CKD-EPI)NonAf >90 (>60 ml/min/1.73 sqM) Glucose 89 (74-99) mg/dL Calcium 9.0 (8.4-10.2) mg/dL Magnesium 2.0 (1.6-2.3) mg/dL Total Bilirubin 0.3 (0.2-1.3) mg/dL AST 43 H (14-36) U/L ALT 41 (9-52) U/L Alkaline Phosphatase 53 (38-126) U/L Troponin I (0.000-0.034) ng/mL NT-Pro-B Natriuret Pep pg/mL Total Protein 6.1 L (6.3-8.2) g/dL Albumin 3.7 (3.5-5.0) g/dL Urine Color Urine Appearance (Clear) Urine pH (5.0-8.0) Ur Specific [place] (1.001-1.035) Urine Protein (Negative) Urine Glucose (UA) (Negative) Urine Ketones (Negative) Urine Blood (Negative) Urine Nitrite (Negative) Urine Bilirubin (Negative) Urine Urobilinogen (<2.0) mg/dL Ur Leukocyte Esterase (Negative) Urine RBC (0-5) /hpf Urine WBC (0-5) /hpf Ur Squamous Epith Cells (0-4) /hpf Urine Bacteria (None) /hpf Urine Mucus (None) /hpf 03/15/19 03/15/19 03/15/19 Range/Units 17:35 17:35 19:27 WBC (3.8-10.6) k/uL RBC (3.80-5.40) m/uL Hgb (11.4-16.0) gm/dL Hct (34.0-46.0) % MCV (80.0-100.0) fL MCH (25.0-35.0) pg MCHC (31.0-37.0) g/dL RDW (11.5-15.5) % Plt Count (150-450) k/uL Neutrophils % % Lymphocytes % % Monocytes % % Eosinophils % % Basophils % % Neutrophils # (1.3-7.7) k/uL Lymphocytes # (1.0-4.8) k/uL Monocytes # (0-1.0) k/uL Eosinophils # (0-0.7) k/uL Basophils # (0-0.2) k/uL PT (9.0-12.0) sec INR (<1.2) APTT (22.0-30.0) sec Sodium (137-145) mmol/L Potassium (3.5-5.1) mmol/L Chloride (98-107) mmol/L Carbon Dioxide (22-30) mmol/L Anion Gap mmol/L BUN (7-17) mg/dL Creatinine (0.52-1.04) mg/dL Est GFR (CKD-EPI)AfAm (>60 ml/min/1.73 sqM) Est GFR (CKD-EPI)NonAf (>60 ml/min/1.73 sqM) Glucose (74-99) mg/dL Calcium (8.4-10.2) mg/dL Magnesium (1.6-2.3) mg/dL Total Bilirubin (0.2-1.3) mg/dL AST (14-36) U/L ALT (9-52) U/L Alkaline Phosphatase (38-126) U/L Troponin I <0.012 (0.000-0.034) ng/mL NT-Pro-B Natriuret Pep 99 pg/mL Total Protein (6.3-8.2) g/dL Albumin (3.5-5.0) g/dL Urine Color Yellow Urine Appearance Turbid H (Clear) Urine pH 5.5 (5.0-8.0) Ur Specific [place] 1.025 (1.001-1.035) Urine Protein 1+ H (Negative) Urine Glucose (UA) Negative (Negative) Urine Ketones 1+ H (Negative) Urine Blood Small H (Negative) Urine Nitrite Negative (Negative) Urine Bilirubin Negative (Negative) Urine Urobilinogen 2.0 (<2.0) mg/dL Ur Leukocyte Esterase Large H (Negative) Urine RBC 41 H (0-5) /hpf Urine WBC 119 H (0-5) /hpf Ur Squamous Epith Cells 72 H (0-4) /hpf Urine Bacteria Few H (None) /hpf Urine Mucus Many H (None) /hpf 03/15/19 20:13 EKG shows normal sinus rhythm, tachycardia 103 bpm. Low voltage QRS borderline EKG. [place] interval 140 ms. QRS duration 74 ms. QT QTc is 328/429 ms. (Tracie oCrbin) - Radiology Data Chest x-rays negative for any acute cardiopulmonary process. (Tracie Rodriguez) Disposition <Cheo Rowland - Last Filed: 03/15/19 20:00> Is patient prescribed a controlled substance at d/c from ED?: No Time of Disposition: 20:20 <Tracie Rodriguez - Last Filed: 03/15/19 20:20> Clinical Impression: Nausea & vomiting, Multiple sclerosis, Weakness, Chronic pain, Drug-seeking behavior Disposition: HOME SELF-CARE Condition: Good Referrals: Sj Fitch MD [Primary Care Provider] - 1-2 days
[2019-03-15 19:38] LABS: Appearance,Urine Turbid (Clear); Bacteria,Urine Few /hpf; Bilirubin,Urine Negative (Negative); Blood,Urine Small (Negative); Color,Urine Yellow; Glucose,Urine (UA) Negative (Negative); Ketones,Urine 1+ (Negative); Leukocyte Esterase,Urine Large (Negative); Mucus,Urine Many /hpf; Nitrite,Urine Negative (Negative); PH, Urine 5.5 (5.0-8.0); Protein,Urine 1+ (Negative); RBC,Urine 41 /hpf (0-5); Specific Gravity,Urine 1.025 (1.001-1.035); Squamous Epithelial Cell,Urine 72 /hpf (0-4)
--- NOTE | 2019-03-15 19:43 | XR ---
EXAMINATION: XR chest 2V DATE AND TIME: 03/15/2019 5:43 PM CLINICAL INDICATION: PHH; Chest Pain TECHNIQUE: AP and lateral COMPARISON: 01/26/2019 FINDINGS: The overlying soft tissues are prominent. Lungs appear clear. The pleural spaces are negative. The cardiac silhouette is not enlarged. The remainder of the mediastinal silhouette is unremarkable. The skeletal structures and soft tissues are negative for acute findings. IMPRESSION: NO ACUTE PROCESS.
[2019-03-15] MEDS ORDERED: cefTRIAXone IN SWFI 1,000 MG/10 ML SYRINGE IVP STA (20:12)
[2019-03-15] MEDS ORDERED: IBUPROFEN 400 MG TAB PO PRN (20:25)
[2019-03-15] MEDS ORDERED: NALOXONE 0.4 MG/ML 1 ML VIAL IV PRN (20:25)
[2019-03-15] MEDS ORDERED: ACETAMINOPHEN TAB 325 MG TAB PO PRN (20:25)
[2019-03-15] MEDS: HYDROcodone/APAP 5-325MG 1 EACH TAB PO PRN (20:48)
[2019-03-15] MEDS: SODIUM CHLORIDE 0.9% 1,000 ML IV SCH (20:49)
[2019-03-15] MEDS: AMITRIPTYLINE HCL 50 MG TAB PO SCH (21:59)
[2019-03-15] MEDS: oxyCODONE-APAP 5-325MG 1 EACH TAB PO PRN (22:08)
[2019-03-16] MEDS: HYDROcodone/APAP 5-325MG 1 EACH TAB PO PRN ×5 (01:25→22:30)
[2019-03-16] MEDS ORDERED: ACETAMINOPHEN IV (For NPO) 1,000 MG in EMPTY BAG 1 BAG IVPB PRN (02:00)
[2019-03-16] MEDS: oxyCODONE-APAP 5-325MG 1 EACH TAB PO PRN ×4 (03:11→20:28)
[2019-03-16] MEDS: ONDANSETRON 4 MG/2 ML VIAL IVP PRN ×3 (03:48→22:33)
[2019-03-16] MEDS: AMITRIPTYLINE HCL 50 MG TAB PO SCH ×2 (08:06→21:38)
[2019-03-16] MEDS: SODIUM CHLORIDE 0.9% 1,000 ML IV SCH ×2 (08:40→15:08)
[2019-03-16] MEDS ORDERED: PANTOPRAZOLE 40 MG/10 ML VIAL IV SCH (09:00)
[2019-03-16] MEDS ORDERED: MORPHINE SULFATE 2 MG/ML SYRINGE IVP STA (13:04)
--- NOTE | 2019-03-16 13:08 | P.HPIM ---
History of Present Illness This is a pleasant 59 years old female with past medical history of asthma, fibromyalgia, GERD, hypertension, muscular disorder, seizure disorder, multiple sclerosis, migraines, dizziness chronic pain, she presents because of swelling in her hands and feet, she says both lower extremity are weak and painful which is usual for her multiple sclerosis flareup. As per staff patient is noted for asking for IV pain medication from previous admission and during this admission. I explained to the patient the risks of narcotics including but not limited to the risk of , cardiopulmonary depression and addiction. She verbalized understanding. We will give her 1 dose of IV morphine and lower the frequency of narcotics from every 4 hours to every 6 hours. MAPS were checked patient was not on narcotics which she confirms that to me. Patient Irma looks stable, she is afebrile. Labs showing mild leukocytosis of 14.2 K, however patient her WBC is chronically elevated in the range of 20s and sometimes up to 40 K. Rest of CBC, BMP, INR are unremarkable, LFTs without significant abnormality, troponin is negative. UTI suspicious for infection. On admission patient was started on steroid Solu-Medrol and ceftriaxone, as well as IV fluids normal saline at 100 L/h Review of Systems CONSTITUTIONAL: No fever, no malaise, no fatigue. HEENT: No recent visual problems or hearing problems. Denied any sore throat. CARDIOVASCULAR: No orthopnea, PND, no palpitations, no syncope. PULMONARY: No shortness of breath, no cough, no hemoptysis. GASTROINTESTINAL: No diarrhea, no nausea, no vomiting, no abdominal pain. Normoactive bowel sounds. NEUROLOGICAL: No headaches, no weakness, no numbness. HEMATOLOGICAL: Denies any bleeding or petechiae. GENITOURINARY: Denies any burning micturition, frequency, or urgency. MUSCULOSKELETAL/RHEUMATOLOGICAL: Denies any joint pain, swelling, or any muscle pain. ENDOCRINE: Denies any polyuria or polydipsia. Past Medical History Past Medical History: Asthma, Fibromyalgia, GERD/Reflux, Hypertension, Musculosk eletal Disorder, Neurologic Disorder, Pneumonia, Seizure Disorder Additional Past Medical History / Comment(s): Multiple Sclerosis, migraines, DJD, interstitial cystitis, UTI, PCOS, vit D deficiency, bilateral optic neuritis with visual problems, generalized chronic pain, numbness/tingling bilateral lower legs, tachycardia, c-diff 5-9-15, seizures from MS last one around 2014 History of Any Multi-Drug Resistant Organisms: C-DIFF Date of last positivie culture/infection: 2016 MDRO Source:: stool Past Surgical History: Cholecystectomy, Orthopedic Surgery Additional Past Surgical History / Comment(s): Lt shoulder rotator cuff repair 06/06/14, arthroscopic left knee 2000 & 2002, left shoulder reconstruction Past Anesthesia/Blood Transfusion Reactions: No Reported Reaction Additional Past Anesthesia/Blood Transfusion Reaction / Comment(s): Pt has never recieved blood. Past Psychological History: Anxiety, Depression, Depression Additional Psychological History / Comment(s): . Smoking Status: Former smoker Past Alcohol Use History: None Reported Additional Past Alcohol Use History / Comment(s): STARTED SMOKING AGE 17 and quit in 2016 but is using vapor cigarette somedays. Patient denies any medical marijuana, marijuana, street drug use. She denies any alcohol use or abuse. Patient is and lives with her and one child. No recent travel. Patient is on disability. Past Drug Use History: Marijuana - Past Family History Mother Family Medical History: No Reported History Additional Family Medical History / Comment(s): mother is healthy Father Family Medical History: Hypertension Medications and Allergies Home Medications Medication Instructions Recorded Confirmed Type Albuterol Inhaler [Ventolin Hfa 2 puff INHALATION RT-QID PRN 12/09/13 03/15/19 History Inhaler] Ipratropium/Albuterol Sulfate 1 puff INHALATION RT-QID PRN 12/09/13 03/15/19 His tory [Combivent Respimat Inhaler] Albuterol Nebulized [Ventolin 2.5 mg INHALATION RT-QID PRN 01/26/18 03/15/19 History Nebulized] Diazepam [Valium] 5 mg PO TID PRN 05/24/18 03/15/19 History Lisinopril [Zestril] 10 mg PO DAILY 05/24/18 03/15/19 History Metaxalone [Skelaxin] 400 mg PO TID 08/11/18 03/15/19 History Dimethyl Fumarate [Tecfidera] 240 mg PO BID 09/20/18 03/15/19 History Amitriptyline HCl 150 mg PO DAILY 01/26/19 03/15/19 History Allergies Allergy/AdvReac Type Severity Reaction Status Date / Time amoxicillin [Amoxicillin] Allergy Severe Anaphylaxis, Verified 03/15/19 17:08 seizures ciprofloxacin [From Cipro] Allergy Severe Rash/Hives, Verified 03/15/19 17:08 seizures codeine phosphate Allergy Unknown Rash/Hives Verified 03/15/19 17:08 [From Tylenol-Codeine #3] cefuroxime axetil Allergy Rash/Hives Verified 03/15/19 17:08 [From Ceftin] ketorolac [From Toradol] Allergy Rash/Hives Verified 03/15/19 17:08 latex Allergy Rash/Hives Verified 03/15/19 17:08 NSAIDS (Non-Steroidal Allergy Rash/Hives/Lip Verified 03/15/19 17:08 Anti-Inflamma Swelling Physical Exam Vitals: Vital Signs Temp Pulse Pulse Resp BP BP Pulse Ox 03/16/19 05:00 98.0 F 97 20 143/80 95 03/15/19 21:00 97.6 F 105 H 20 122/84 96 03/15/19 20:56 98.3 F 98 18 119/70 100 03/15/19 20:13 98 18 119/70 100 03/15/19 19:23 101 H 16 119/70 98 03/15/19 17:53 97 18 119/70 93 L 03/15/19 16:39 98.3 F 101 H 18 131/75 98 Intake and Output 03/15/19 03/16/19 03/16/19 22:59 06:59 14:59 Intake Total 200 500 Balance 200 500 Intake: Oral 200 500 Other: # Voids 0 2 Weight 99.79 kg GENERAL: The patient is alert and oriented x3, not in any acute distress. Obese HEENT: Pupils are round and equally reacting to light. EOMI. No scleral icterus. No conjunctival pallor. Normocephalic, atraumatic. No pharyngeal erythema. No thyromegaly. CARDIOVASCULAR: S1 and S2 present. No murmurs, rubs, or gallops. PULMONARY: Chest is clear to auscultation, no wheezing or crackles. ABDOMEN: Soft, nontender, nondistended, normoactive bowel sounds. No palpable organomegaly. MUSCULOSKELETAL: No joint swelling or deformity. EXTREMITIES: No cyanosis, clubbing, or pedal edema. -NEUROLOGICAL: Cranial nerves are grossly intact. Weakness and was symmetrical in both lower extremity. Upper extremity strength is 5/5. No abnormal sensation. Meningeal signs are absent SKIN: No rashes. Results CBC & Chem 7: 03/15/19 17:35 03/15/19 17:35 Labs: Abnormal Lab Results - Last 24 Hours (Table) 03/15/19 03/15/19 03/15/19 Range/Units 17:35 17:35 19:27 WBC 14.2 H (3.8-10.6) k/uL Neutrophils # 10.1 H (1.3-7.7) k/uL AST 43 H (14-36) U/L Total Protein 6.1 L (6.3-8.2) g/dL Urine Appearance Turbid H (Clear) Urine Protein 1+ H (Negative) Urine Ketones 1+ H (Negative) Urine Blood Small H (Negative) Ur Leukocyte Esterase Large H (Negative) Urine RBC 41 H (0-5) /hpf Urine WBC 119 H (0-5) /hpf Ur Squamous Epith Cells 72 H (0-4) /hpf Urine Bacteria Few H (None) /hpf Urine Mucus Many H (None) /hpf Microbiology - Last 24 Hours (Table) 03/15/19 19:27 Urine Culture - Preliminary Urine,Voided Thrombosis Risk Factor Assmnt - Choose All That Apply Any of the Below Risk Factors Present?: Yes Each Factor Represents 1 point: Swollen legs (current) Other Risk Factors: No Other congenital or acquired thrombophilia - If yes, enter type in comment: No Thrombosis Risk Factor Assessment Total Risk Factor Score: 1 Thrombosis Risk Factor Assessment Level: Low Risk Assessment and Plan Assessment: Acute exacerbation of multiple sclerosis Urinary tract infection Drug-seeking behavior Chronic leukocytosis History of asthma Chronic fibromyalgia History of GERD Essential hypertension History of migraine Plan: This is a pleasant 59 years old female who presents because of UTI and possible multiple sclerosis a flareup for her leg weakness .Neurology evaluated the patient. Continue with steroids and ceftriaxone. Follow-up urine culture. Follow-up neurologist recommendation Labs and medication were reviewed.. Continue same treatment. Continue with symptomatic treatment. Resume home medication. Monitor lytes and vitals. DVT and GI prophylaxis. Further recommendations of the clinical course of the patient DVT prophylaxis: Subcutaneou Lovenox GI Prophylaxis: Pepcid PT/OT: Pending Prognosis is guarded
--- NOTE | 2019-03-16 13:25 | P.CNNES ---
History of Present Illness Consult date: 03/16/19 Reason for Consult: MS flare Chief complaint: Worsening weakness in bilateral lower extremities along with sensation of p History of Present Illness: REFERRING PHYSICIAN: Tracie Rodriguez HISTORY OF PRESENT ILLNESS: Thank you for allowing me to evaluate Ms. Lyndsay Uriarte. Ms. Uriarte is a 39-year-old right-handed woman with past medical history of tumefactive multiple sclerosis, hypertension, hypothyroidism, asthma, fibromyalgia, GERD, obesity, occipital neuralgia, right V1 herpes zoster, reported seizures, who presented to [facility] for worsening lower extremity weakness bilaterally along with a pressure-like sensation deficit in her lower extremities, right side more than left side. Patient states that about a week and a half ago, patient went to an urgent care because she thought she was having a bladder infection as she felt some pressure in her lower belly along with bad odor. At the time UA was done, and patient was told that it was cleaned. Patient is hesitant to the emergency room because she thought she was having an MS flare, she was having worsening weakness in her bilateral motion and release where she wasn't able to walk on her own along with significant pain right lateral hanson wheeze. Of note, patient continues to ask for either [place] or morphine to relieve her pain in the lower extremities. She states that she doesn't take any pain medications at home. Patient states that her last MS flare was in January 2019 where patient was seen in [facility]. Of note, patient was diagnosed with total active multiple sclerosis about 10 years ago. Patient has an outside MS specialist (), with whom she isn't falling for the last 5 years. Patient states she's been on multiple MS medications was recently on Tecfidera. Patient had a left V1 herpes zoster for which she was antiviral's. With the agreement by the MS specialist, patient had discontinued taking Tecfidera for about 6 weeks. Patient started taking Tecfidera again, but she started having side effects with flushing, diarrhea, and itching. Patient states that she has not been taking her medication for the last 3 weeks. On review of patient's previous records, patient has been evaluated at [facility] multiple times. In August 2018, patient presented with reported weakness involving the left upper extremity and lower lower extremity. At that time patient was also complaining of pain medication, for which the admitting doctor on the allowed oral pain medication. At the time patient left AMA. In January 2019, patient came with symptoms of pain and burning all over her body that was concerning for MS flare to the patient. PAST MEDICAL HISTORY: Tumefactive multiple sclerosis, hypertension, hypothyroidism, asthma, fibr omyalgia, GERD, obesity, occipital neuralgia, right V1 herpes zoster, reported seizures PAST SURGICAL HISTORY: Shoulder surgeries, knee surgeries, cholecystectomy. HOME MEDICATIONS: Albuterol, lisinopril 10 mg daily, that has been 5 mg 3 times a day when necessary, metaxalone 400 mg by mouth 3 times a day, Tecfidera to 40 mg twice a day, amitriptyline 150 mg daily ALLERGIES: Multiple. Please refer to ALLERGY list. SOCIAL HISTORY: Patient has a history of smoking, but quit in 2018. Denies any alcohol or drug abuse history. Patient is with one child and lives with her and daughter. Patient is able to walk around her house without any assistance, on that she is having an MS flare. FAMILY HISTORY: Cousin with multiple sclerosis. Father with history of hypertension. REVIEW OF SYSTEMS: The 14 systems are reviewed and no additional points are identified compared to the review of systems documented history and physical PHYSICAL EXAMINATION: VITAL SIGNS: Temperature 98.0 pulse rate 97 respiratory 20 pressure 143/80 O2 saturation 95% on room air GEN.: NAD, pleasant and cooperative HEENT: NCAT, sclera without icterus NECK: Supple SKIN AND EXTREMITIES: Warm to touch, no edema NEURO: MENTAL STATUS: Patient alert and oriented to self, place, time. Able to name current president. Speech fluent, able to name and repeat, following all commands readily. CRANIAL NERVES II THROUGH XII: II: Pupils are equal and reactive to light symmetrically. No afferent pupillary defect. No color desaturation. Visual pacheco are intact. III, IV, : No ptosis. Extraocular movements full. No nystagmus. V: Facial sensation intact from V1-3. VII. No clear facial asymmetry. VIII: Hearing intact to finger rub bilaterally. IX, X: Symmetric palate elevation. XII: Shoulder shrug intact. XII: Tongue midline without fasciculation or atrophy. MOTOR: Normal bulk/tone. 5/5 strength in left upper extremity. 4+/5 strength in right upper extremity. Patient with difficulty bending her knees bilaterally and dorsi flexing her feet bilaterally, about 3/5. At least 4+/5 plantar flex ion. SENSORY: Intact to temperature in all 4 extremities. Decreased sensation in bilateral lower extremities, worse distally. REFLEXES: 1 + throughout. Toes are downgoing. COORDINATION: Finger to nose. No dysmetria. GAIT: Deferred as patient with long-standing weakness. DIAGNOSTIC TESTING: Laboratory: WBC 14.2 hemoglobin 12.4 platelets 390 PT 10.5 INR 1.0 sodium 138 potassium 4.0 chloride 104, carpal 27 BUN 7 creatinine 0.69 calcium 9.0 magnesium 2.0 AST 45-year-old T 41 alk phos 53 troponin <0.012. UA 1+ protein 1+ ketones nitrite negative. LeukEsterase large RBC 41 WBC 119 few bacteria Imaging: MRI of brain/orbit with and without contrast 01/28/2019: Some progression of white matter demyelination as described. No enhancing plaque is noted. Orbits are symmetric unremarkable. Quarterly for possible remote cerebral vascular accident ASSESSMENT and PLAN: Ms. Uriarte is a 39-year-old right-handed woman with past medical history of tumefactive multiple sclerosis, hypertension, hypothyroidism, asthma, fibromyalgia, GERD, obesity, occipital neuralgia, right V1 herpes zoster, reported seizures, who presented to [facility] for worsening lower extremity weakness bilaterally along with a pressure-like sensation deficit in her lower extremities, right side more than left side. Patient's biggest complaint at this time is a pressure-like pain that she has in her bilateral low er extremity. Okay with just giving oral pain medications. On exam, patient with some right biceps and triceps weakness along with difficulty dorsiflexing both feet. Patient found with a dirty UA. Patient reports dysuria. UTI could be a exacerbating factor in MS patients for flare. Recommendations: 1. MRI brain/C-spine/T-spine with and without contrast. 2. Continue IV steroids 250 mg every 6 hours 3 days. 3. Antibiotics for UTI. 4. Continue to minimize narcotic use. 5. Increase activity as tolerated 6. Patient will need an appointment with her specialist within a week of being discharged to be considered again for a different agent to treat her active MS Past Medical History Past Medical History: Asthma, Fibromyalgia, GERD/Reflux, Hypertension, Musculoskeletal Disorder, Neurologic Disorder, Pneumonia, Seizure Disorder Additional Past Medical History / Comment(s): Multiple Sclerosis, migraines, DJD, interstitial cystitis, UTI, PCOS, vit D deficiency, bilateral optic neuritis with visual problems, generalized chronic pain, numbness/tingling bilateral lower legs, tachycardia, c-diff 5-9-15, seizures from MS last one around 2014 History of Any Multi-Drug Resistant Organisms: C-DIFF Date of last positivie culture/infection: 2016 MDRO Source:: stool Past Surgical History: Cholecystectomy, Orthopedic Surgery Additional Past Surgical History / Comment(s): Lt shoulder rotator cuff repair 06/06/14, arthroscopic left knee 2000 & 2002, left shoulder reconstruction Past Anesthesia/Blood Transfusion Reactions: No Reported Reaction Additional Past Anesthesia/Blood Transfusion Reaction / Comment(s): Pt has never recieved blood. Past Psychological History: Anxiety, Depression, Depression Additional Psychological History / Comment(s): . Smoking Status: Former smoker Past Alcohol Use History: None Reported Additional Past Alcohol Use History / Comment(s): STARTED SMOKING AGE 17 and quit in 2017 but is using vapor cigarette somedays. Patient denies any medical marijuana, marijuana, street drug use. She denies any alcohol use or abuse. Patient is and lives with her and one child. No recent travel. Patient is on disability. Past Drug Use History: Marijuana - Past Family History Mother Family Medical History: No Reported History Additional Family Medical History / Comment(s): mother is healthy Father Family Medical History: Hypertension Medications and Allergies Home Medications Medication Instructions Recorded Confirmed Type Albuterol Inhaler [Ventolin Hfa 2 puff INHALATION RT-QID PRN 12/09/13 03/15/19 History Inhaler] Ipratropium/Albuterol Sulfate 1 puff INHALATION RT-QID PRN 12/09/13 03/15/19 History [Combivent Respimat Inhaler] Albuterol Nebulized [Ventolin 2.5 mg INHALATION RT-QID PRN 01/26/18 03/15/19 History Nebulized] Diazepam [Valium] 5 mg PO TID PRN 05/24/18 03/15/19 History Lisinopril [Zestril] 10 mg PO DAILY 05/24/18 03/15/19 History Metaxalone [Skelaxin] 400 mg PO TID 08/11/18 03/15/19 History Dimethyl Fumarate [Tecfidera] 240 mg PO BID 09/20/18 03/15/19 History Amitriptyline HCl 150 mg PO DAILY 01/26/19 03/15/19 History Allergies Allergy/AdvReac Type Severity Reaction Status Date / Time amoxicillin [Amoxicillin] Allergy Severe Anaphylaxis, Verified 03/15/19 17:08 seizures ciprofloxacin [From Cipro] Allergy Severe Rash/Hives, Verified 03/15/19 17:08 seizures codeine phosphate Allergy Unknown Rash/Hives Verified 03/15/19 17:08 [From Tylenol-Codeine #3] cefuroxime axetil Allergy Rash/Hives Verified 03/15/19 17:08 [From Ceftin] ketorolac [From Toradol] Allergy Rash/Hives Verified 03/15/19 17:08 latex Allergy Rash/Hives Verified 03/15/19 17:08 NSAIDS (Non-Steroidal Allergy Rash/Hives/Lip Verified 03/15/19 17:08 Anti-Inflamma Swelling Physical Examination - Vital Signs Vital Signs: Vital Signs Temp Pulse Pulse Resp BP BP Pulse Ox 03/16/19 05:00 98.0 F 97 20 143/80 95 03/15/19 21:00 97.6 F 105 H 20 122/84 96 03/15/19 20:56 98.3 F 98 18 119/70 100 03/15/19 20:13 98 18 119/70 100 03/15/19 19:23 101 H 16 119/70 98 03/15/19 17:53 97 18 119/70 93 L 03/15/19 16:39 98.3 F 101 H 18 131/75 98 Intake and Output 03/15/19 03/16/19 03/16/19 22:59 06:59 14:59 Intake Total 200 500 Balance 200 500 Intake: Oral 200 500 Other: # Voids 0 2 Weight 99.79 kg Results - Laboratory Findings CBC and BMP: 03/15/19 17:35 03/15/19 17:35 Abnormal Lab Findings: Abnormal Labs 03/15/19 03/15/19 03/15/19 17:35 17:35 19:27 WBC 14.2 H Neutrophils # 10.1 H AST 43 H Total Protein 6.1 L Urine Appearance Turbid H Urine Protein 1+ H Urine Ketones 1+ H Urine Blood Small H Ur Leukocyte Esterase Large H Urine RBC 41 H Urine WBC 119 H Ur Squamous Epith Cells 72 H Urine Bacteria Few H Urine Mucus Many H
[2019-03-16] MEDS: ENOXAPARIN 40 MG/0.4 ML SYRINGE SQ SCH (14:04)
--- NOTE | 2019-03-16 14:30 | US ---
EXAMINATION TYPE: US venous doppler duplex LE DATE OF EXAM: 03/16/2019 2:10 PM COMPARISON: NONE CLINICAL HISTORY: Rule out DVT. MS Flareup, UTI SIDE PERFORMED: Bilateral TECHNIQUE: The lower extremity deep venous system is examined utilizing real time linear array sonog colin with graded compression, doppler sonography and color-flow sonography. VESSELS IMAGED: Common Femoral Vein Deep Femoral Vein Greater Saphenous Vein * Femoral Vein Popliteal Vein Small Saphenous Vein * Proximal Calf Veins (* superficial vessels) Large body habitus. Right Leg: Negative for DVT Left Leg: Negative for DVT IMPRESSION: 1. No diagnostic evidence of DVT as visualized.
[2019-03-16] MEDS: FAMOTIDINE 20 MG/2 ML VIAL IV SCH (20:28)
[2019-03-17] MEDS: oxyCODONE-APAP 5-325MG 1 EACH TAB PO PRN ×4 (01:57→20:19)
[2019-03-17] MEDS: SODIUM CHLORIDE 0.9% 1,000 ML IV SCH ×2 (01:58→11:09)
[2019-03-17] MEDS: HYDROcodone/APAP 5-325MG 1 EACH TAB PO PRN (03:57)
[2019-03-17] MEDS: PANTOPRAZOLE 40 MG TABLET PO SCH (08:05)
[2019-03-17] MEDS: ENOXAPARIN 40 MG/0.4 ML SYRINGE SQ SCH (08:05)
[2019-03-17] MEDS: FAMOTIDINE 20 MG/2 ML VIAL IV SCH (08:05)
[2019-03-17] MEDS: LISINOPRIL 10 MG TAB PO SCH (08:05)
[2019-03-17] MEDS: ONDANSETRON 4 MG/2 ML VIAL IVP PRN ×2 (08:14→20:19)
[2019-03-17 09:24] LABS: African American GFR (CKD) >90 (>60 ml/min/1.73 sqM); Anion Gap 8 mmol/L; Blood Urea Nitrogen 12 mg/dL (7-17); Calcium 8.4 mg/dL (8.4-10.2); Carbon Dioxide 23 mmol/L (22-30); Chloride 108 mmol/L (98-107); Glucose 199 mg/dL (74-99); Potassium 4.3 mmol/L (3.5-5.1); Sodium 139 mmol/L (137-145)
[2019-03-17] MEDS ORDERED: MORPHINE SULFATE 4 MG/ML SYRINGE IVP STA ×2 (10:53→22:29)
--- NOTE | 2019-03-17 11:03 | P.PN ---
Subjective This is a pleasant 59 years old female with past medical history of asthma, fibromyalgia, GERD, hypertension, muscular disorder, seizure disorder, multiple sclerosis, migraines, dizziness chronic pain, she presents because of swelling in her hands and feet, she says both lower extremity are weak and painful which is usual for her multiple sclerosis flareup. As per staff patient is noted for asking for IV pain medication from previous admission and during this admission. I explained to the patient the risks of narcotics including but not limited to the risk of , cardiopulmonary depression and addiction. She verbalized understanding. We will give her 1 dose of IV morphine and lower the frequency of narcotics from every 4 hours to every 6 hours. MAPS were checked patient was not on narcotics which she confirms that to me. Patient Irma looks stable, she is afebrile. Labs showing mild leukocytosis of 14.2 K, however patient her WBC is chronically elevated in the range of 20s and sometimes up to 40 K. Rest of CBC, BMP, INR are unremarkable, LFTs without significant abnormality, troponin is negative. UTI suspicious for infection. On admission patient was started on steroid Solu-Medrol and ceftriaxone, as well as IV fluids normal saline at 100 L/h 03/17/2019 Patient is awake with no new complaint. She still have weakness in her lower extremity with little or no improvement from yesterday while she was started on steroids. Patient states that she has Weakness in her lower extremity similar like this before but usually eats one side compared to this time which is bilateral, she stated that usually she started to improve while on steroids in 3-5 days. Patient is already on Solu-Medrol. She still asking for pain medication. We going to stop the [place] and continue with Percocet while on his frequency from every 4 hours to every 6 hours. Give one-time dose of morphine today. Pain management plan discussed with the patient and she agrees with it and there is only management plan. Patient is aware of the MRI machine is down as patient is recommended to have MRI of the brain and the cervical and thoracic spine by the neurology team. Urology team are still following the case. Urine culture is growing Streptococcus agalactiae, continue with ceftriaxone and we'll order renal ultrasound. Also we will repeat urinalysis Discussed with staff and bedside nurse review of systems CONSTITUTIONAL: No fever, no malaise, no fatigue. HEENT: No recent visual problems or hearing problems. Denied any sore throat. CARDIOVASCULAR: No orthopnea, PND, no palpitations, no syncope. PULMONARY: No shortness of breath, no cough, no hemoptysis. GASTROINTESTINAL: No diarrhea, no nausea, no vomiting, no abdominal pain. Normoactive bowel sounds. NEUROLOGICAL: No headaches, no weakness, no numbness. HEMATOLOGICAL: Denies any bleeding or petechiae. GENITOURINARY: Denies any burning micturition, frequency, or urgency. MUSCULOSKELETAL/RHEUMATOLOGICAL: Denies any joint pain, swelling, or any muscle pain. ENDOCRINE: Denies any polyuria or polydipsia. Active Medications Generic Name Dose Route Start Last Admin Trade Name Freq PRN Reason Stop Dose Admin Acetaminophen 650 mg 03/15/19 20:25 Tylenol Tab PO Q6HR PRN Mild Pain or Fever > 100.5 Hydrocodone Bitart/Acetaminophen 1 each 03/16/19 13:05 03/17/19 03:57 [place] 5-325 PO 1 each Q6HR PRN Administration Moderate Pain Amitriptyline HCl 150 mg 03/16/19 21:00 03/16/19 21:38 Elavil PO 150 mg HS KITA Administration Enoxaparin Sodium 40 mg 03/16/19 13:15 03/17/19 08:05 Lovenox SQ 40 mg DAILY KITA Administration Famotidine 20 mg 03/16/19 21:00 03/17/19 08:05 Pepcid IV 20 mg Q12HR KITA Administration Methylprednisolone Sodium 100 mls @ 200 mls/hr 03/15/19 21:00 03/17/19 08:40 Succinate 250 mg/ Sodium IVPB 200 mls/hr Chloride Q6H KITA Administration Sodium Chloride 1,000 mls @ 100 mls/hr 03/15/19 20:30 03/17/19 01:58 Saline 0.9% IV 100 mls/hr .Q10H KITA Administration Ceftriaxone Sodium 1 gm/ 50 mls @ 100 mls/hr 03/16/19 21:15 03/17/19 08:04 Sodium Chloride IVPB 100 mls/hr Q24HR KITA Administration Lisinopril 10 mg 03/17/19 09:00 03/17/19 08:05 Zestril PO 10 mg DAILY KITA Administration Naloxone HCl 0.2 mg 03/15/19 20:25 Narcan IV Q2M PRN Opioid Reversal Ondansetron HCl 4 mg 03/15/19 20:25 03/17/19 08:14 Zofran IVP 4 mg Q8HR PRN Administration Nausea And Vomiting Oxycodone/Acetaminophen 1 each 03/15/19 20:25 03/17/19 08:14 Percocet 5-325 PO 1 each Q4HR PRN Administration Severe Pain Pantoprazole Sodium 40 mg 03/17/19 09:00 03/17/19 08:05 Protonix PO 40 mg DAILY KITA Administration Objective - Vital Signs Vital signs: Vital Signs Temp 97.8 F 03/17/19 05:00 Pulse 105 H 03/17/19 05:49 Resp 20 03/17/19 05:00 BP 150/98 03/17/19 05:49 Pulse Ox 91 L 03/17/19 05:00 Intake & Output 03/16/19 03/17/19 03/17/19 18:59 06:59 18:59 Intake Total 1440 Balance 1440 Intake: Oral 1440 Other: # Voids 2 1 - Exam GENERAL: The patient is alert and oriented x3, not in any acute distress. Obese HEENT: Pupils are round and equally reacting to light. EOMI. No scleral icterus. No conjunctival pallor. Normocephalic, atraumatic. No pharyngeal erythema. No thyromegaly. CARDIOVASCULAR: S1 and S2 present. No murmurs, rubs, or gallops. PULMONARY: Chest is clear to auscultation, no wheezing or crackles. ABDOMEN: Soft, nontender, nondistended, normoactive bowel sounds. No palpable organomegaly. MUSCULOSKELETAL: No joint swelling or deformity. EXTREMITIES: No cyanosis, clubbing, or pedal edema. -NEUROLOGICAL: Cranial nerves are grossly intact. Weakness and was symmetrical in both lower extremity. Upper extremity strength is 5/5. No abnormal sensation. Meningeal signs are absent SKIN: No rashes. - Labs CBC & Chem 7: 03/15/19 17:35 03/17/19 08:37 Labs: Abnormal Lab Results - Last 24 Hours (Table) 03/17/19 Range/Units 08:37 Chloride 108 H (98-107) mmol/L Glucose 199 H (74-99) mg/dL Microbiology - Last 24 Hours (Table) 03/15/19 20:45 Blood Culture - Preliminary Blood No Growth after 24 hours 03/15/19 19:27 Urine Culture - Final Urine,Voided Strep agalactiae - (group b) Assessment and Plan Assessment: Acute exacerbation of multiple sclerosis with bilateral lower extremity weakness, mostly secondary to above. Neurologist following the case Urinary tract infection with urine culture positive for Streptococcus agalactiae, possible Drug-seeking behavior Chronic leukocytosis History of asthma Chronic fibromyalgia History of GERD Essential hypertension History of migraine Plan: This is a pleasant 59 years old female who presents because of UTI and possible multiple sclerosis a flareup for her bilateral leg weakness .Neurology evaluated the patient. Continue with steroids and ceftriaxone. Follow-up neurologist recommendation . Check renal ultrasound Labs and medication were reviewed.. Continue same treatment. Continue with symptomatic treatment. Resume home medication. Monitor lytes and vitals. DVT and GI prophylaxis. Further recommendations of the clinical course of the patient DVT prophylaxis: Subcutaneou Lovenox GI Prophylaxis: Pepcid PT/OT: Pending Prognosis is guarded
[2019-03-17 12:50] LABS: Appearance,Urine Clear (Clear); Bilirubin,Urine Negative (Negative); Blood,Urine Small (Negative); Color,Urine Yellow; Glucose,Urine (UA) 4+ (Negative); Ketones,Urine Trace (Negative); Leukocyte Esterase,Urine Small (Negative); Mucus,Urine Rare /hpf; Nitrite,Urine Negative (Negative); Protein,Urine Trace (Negative); RBC,Urine 21 /hpf (0-5); Specific Gravity,Urine 1.034 (1.001-1.035); Squamous Epithelial Cell,Urine 4 /hpf (0-4); WBC,Urine 7 /hpf (0-5)
[2019-03-17] MEDS ORDERED: LORazepam 1 MG TAB PO PRN (12:51)
--- NOTE | 2019-03-17 12:53 | P.PN ---
Progress Note - Text Progress Note Date: 03/17/19 SUBJECTIVE/INTERVAL EVENTS: No acute overnight events. Patient requesting more pain medication. Patient received 1 dose of morphine IV. Patient denies ever going through plasmapheresis or getting MRI of the thoracic or lumbar spine. Patient reports some improvement in her symptoms. Her lower extremities are less swollen, and she is able to move her feet more readily than she did yesterday PHYSICAL EXAMINATION: VITAL SIGNS: Temperature 97.8 pulse rate 105 respiratory 20 pressure 150/98 O2 saturation 91% on room air GEN.: NAD, pleasant and cooperative HEENT: NCAT, sclera without icterus NECK: Supple SKIN AND EXTREMITIES: Warm to touch, no edema NEURO: MENTAL STATUS: Patient alert and oriented to self, place, time. Able to name current president. Speech fluent, able to name and repeat, following all commands readily. CRANIAL NERVES II THROUGH XII: II: Pupils are equal and reactive to light symmetrically. No afferent pupillary defect. No color desaturation. Visual pacheco are intact. III, IV, : No ptosis. Extraocular movements full. No nystagmus. V: Facial sensation intact from V1-3. VII. No clear facial asymmetry. VIII: Hearing intact to finger rub bilaterally. IX, X: Symmetric palate elevation. XII: Shoulder shrug intact. XII: Tongue midline without fasciculation or atrophy. MOTOR: Normal bulk/tone. 5/5 strength in left upper extremity. 4+/5 strength in right upper extremity. b/l knee flexion/extension 4/5, 4+/5 dorsiflexion/plantarflexion. SENSORY: Intact to temperature in all 4 extremities. Decreased sensation in bilateral lower extremities, worse distally. REFLEXES: 1 + throughout. Toes are downgoing. COORDINATION: Finger to nose. No dysmetria. GAIT: Deferred as patient with long-standing weakness. DIAGNOSTIC TESTING: Laboratory: WBC 14.2 hemoglobin 12.4 platelets 390 PT 10.5 INR 1.0 sodium 138 potassium 4.0 chloride 104, carpal 27 BUN 7 creatinine 0.69 calcium 9.0 magnesium 2.0 AST 45-year-old T 41 alk phos 53 troponin <0.012. UA 1+ protein 1+ ketones nitrite negative. LeukEsterase large RBC 41 WBC 119 few bacteria Imaging: MRI of brain/orbit with and without contrast 01/28/2019: Some progression of white matter demyelination as described. No enhancing plaque is noted. Orbits are symmetric unremarkable. Quarterly for possible remote cerebral vascular accident ASSESSMENT and PLAN: Ms. Uriarte is a 39-year-old right-handed woman with past medical history of tumefactive multiple sclerosis, hypertension, hypothyroidism, asthma, fibromyalgia, GERD, obesity, occipital neuralgia, right V1 herpes zoster, reported seizures, who presented to [facility] for worsening lower extremity weakness bilaterally along with a pressure-like sensation deficit in her lower extremities, right side more than left side. Patient's biggest complaint at this time is a pressure-like pain that she has in her bilateral lower extremity. Okay with just giving oral pain medications. On exam, patient with some right biceps and triceps weakness along with difficulty dorsiflexing both feet. Patient found with a dirty UA. Patient reports dysuria. UTI could be a exacerbating factor in MS patients for flare. Recommendations: 1. MRI brain/C-spine/T-spine with and without contrast. Will provide Ativan 2mg PO x1 PRN to be taken with patient when she goes to [place] for her MRI as patient is speech is areports feeling claustrophic in MRI. 2. Continue IV steroids 250 mg every 6 hours 3 days (pt states that she may have had issues with her BP when she got IV steroids all at once, but she wasn't fully aware of why patient had been getting 250mg IV stero'sids q6hrs 3. Antibiotics for UTI. 4. Continue to minimize narcotic use. 5. Increase activity as tolerated 6. Patient will need an appointment with her specialist within a week of being discharged to be considered again for a different agent to treat her active MS
--- NOTE | 2019-03-17 14:16 | US ---
EXAMINATION TYPE: US kidneys/renal and bladder DATE OF EXAM: 03/17/2019 COMPARISON: None CLINICAL HISTORY: Renal ultrasound, UTI . No pain EXAM MEASUREMENTS: Right Kidney: 11.8 x 5.4 x 4.6 cm Left Kidney: 9.7 x 4.4 x 5.9 cm Suboptimal visualization due to patient body habitus Right Kidney: No hydronephrosis or masses seen Left Kidney: No hydronephrosis or masses seen Bladder: wnl Bilateral Jets not seen There is no evidence for hydronephrosis at this point in time. No nephrolithiasis is seen. No lorie s are identified. The urinary bladder is anechoic. Bilateral ureteral jets are seen. IMPRESSION: No hydronephrosis or nephrolithiasis. Urinary bladder is incompletely distended but appears anechoic and unremarkable.
[2019-03-17] MEDS: FAMOTIDINE 20 MG TAB PO SCH (20:19)
[2019-03-17] MEDS: AMITRIPTYLINE HCL 50 MG TAB PO SCH (20:19)
[2019-03-18] MEDS: oxyCODONE-APAP 5-325MG 1 EACH TAB PO PRN ×2 (02:49→08:09)
[2019-03-18] MEDS: SODIUM CHLORIDE 0.9% 1,000 ML IV SCH (02:53)
[2019-03-18] MEDS: PANTOPRAZOLE 40 MG TABLET PO SCH (08:08)
[2019-03-18] MEDS: ENOXAPARIN 40 MG/0.4 ML SYRINGE SQ SCH (08:09)
[2019-03-18] MEDS: FAMOTIDINE 20 MG TAB PO SCH (08:09)
[2019-03-18] MEDS: LISINOPRIL 10 MG TAB PO SCH (08:09)
[2019-03-18 09:55] LABS: African American GFR (CKD) >90 (>60 ml/min/1.73 sqM); Anion Gap 9 mmol/L; Blood Urea Nitrogen 13 mg/dL (7-17); Calcium 8.3 mg/dL (8.4-10.2); Carbon Dioxide 24 mmol/L (22-30); Chloride 107 mmol/L (98-107); Glucose 157 mg/dL (74-99); Potassium 4.2 mmol/L (3.5-5.1); Sodium 140 mmol/L (137-145)
[2019-03-18] MEDS ORDERED: MORPHINE SULFATE 4 MG/ML SYRINGE IVP STA (10:34)
[2019-03-18] MEDS: IPRATROPIUM-ALBUTEROL 3 ML NEB INHALATION PRN ×2 (10:36→19:05)
[2019-03-18] MEDS ORDERED: hydrALAZINE HCL 25 MG TAB PO PRN (10:44)
[2019-03-18] MEDS ORDERED: oxyCODONE-APAP 5-325MG 1 EACH TAB PO PRN (10:48)
--- NOTE | 2019-03-18 10:50 | P.PN ---
Subjective This is a pleasant 59 years old female with past medical history of asthma, fibromyalgia, GERD, hypertension, muscular disorder, seizure disorder, multiple sclerosis, migraines, dizziness chronic pain, she presents because of swelling in her hands and feet, she says both lower extremity are weak and painful which is usual for her multiple sclerosis flareup. As per staff patient is noted for asking for IV pain medication from previous admission and during this admission. I explained to the patient the risks of narcotics including but not limited to the risk of , cardiopulmonary depression and addiction. She verbalized understanding. We will give her 1 dose of IV morphine and lower the frequency of narcotics from every 4 hours to every 6 hours. MAPS were checked patient was not on narcotics which she confirms that to me. Patient Irma looks stable, she is afebrile. Labs showing mild leukocytosis of 14.2 K, however patient her WBC is chronically elevated in the range of 20s and sometimes up to 40 K. Rest of CBC, BMP, INR are unremarkable, LFTs without significant abnormality, troponin is negative. UTI suspicious for infection. On admission patient was started on steroid Solu-Medrol and ceftriaxone, as well as IV fluids normal saline at 100 L/h 03/17/2019 Patient is awake with no new complaint. She still have weakness in her lower extremity with little or no improvement from yesterday while she was started on steroids. Patient states that she has Weakness in her lower extremity similar like this before but usually eats one side compared to this time which is bilateral, she stated that usually she started to improve while on steroids in 3-5 days. Patient is already on Solu-Medrol. She still asking for pain medication. We going to stop the Narco and continue with Percocet while on his frequency from every 4 hours to every 6 hours. Give one-time dose of morphine today. Pain management plan discussed with the patient and she agrees with it and there is only management plan. Patient is aware of the MRI machine is down as patient is recommended to have MRI of the brain and the cervical and thoracic spine by the neurology team. Urology team are still following the case. Urine culture is growing Streptococcus agalactiae, continue with ceftriaxone and we'll order renal ultrasound. Also we will repeat urinalysis Discussed with staff and bedside nurse 03/18/2019 Patient still states that she has weakness in her lower extremity, and stating that they're improving slightly, however when I was walking into the room patient could extend both her crossed flexed legs to full extension. Patient still asking for pain medication, I explained the risks of this medication including addiction and respiratory depression and , she has recently given morphine 4 mg. We will give 1 extra dose today as she will need to go to MRI. However was stopped and the frequency of Percocet was lowered. Neurology following the case and recommended MRI, however MRI machine is down and patient is scheduled to go outside the hospital to get MRI in another facility like [facility] or [facility] however patient appears to go. Patient have some nausea but no vomiting or epigastric pain. Patient is already on Protonix we'll keep monitor. And Hydralazine when necessary for high blood pressure and rh ythm. IV fluid Objective - Vital Signs Vital signs: Vital Signs Temp 97.8 F 03/18/19 04:55 Pulse 84 03/18/19 04:55 Resp 16 03/18/19 04:55 BP 180/102 03/18/19 04:55 Pulse Ox 92 L 03/18/19 04:55 Intake & Output 03/17/19 03/18/19 03/18/19 18:59 06:59 18:59 Intake Total 850 540 Balance 850 540 Intake: IV 850 Sodium Chloride 0.9% 1, 600 000 ml @ 75 mls/hr IV . [id number] [facility] Rx#:[id number] cefTRIAXone 1 gm In 50 Sodium Chloride 0.9% 50 ml @ 100 mls/hr IVPB Q24HR [facility] Rx#:[id number] methylPREDNISolone SOD 200 SUCC 250 mg In Sodium Chloride 0.9% 100 ml @ 200 mls/hr IVPB Q6H [facility] Rx#:[id number] Oral 540 Other: # Voids 3 2 - Exam GENERAL: The patient is alert and oriented x3, not in any acute distress. Obese HEENT: Pupils are round and equally reacting to light. EOMI. No scleral icterus. No conjunctival pallor. Normocephalic, atraumatic. No pharyngeal erythema. No thyromegaly. CARDIOVASCULAR: S1 and S2 present. No murmurs, rubs, or gallops. PULMONARY: Chest is clear to auscultation, no wheezing or crackles. ABDOMEN: Soft, nontender, nondistended, normoactive bowel sounds. No palpable organomegaly. MUSCULOSKELETAL: No joint swelling or deformity. EXTREMITIES: No cyanosis, clubbing, or pedal edema. -NEUROLOGICAL: Cranial nerves are grossly intact. Weakness and was symmetrical in both lower extremity. Upper extremity strength is 5/5. No abnormal sensation. Meningeal signs are absent SKIN: No rashes. - Labs CBC & Chem 7: 03/15/19 17:35 03/18/19 08:59 Labs: Abnormal Lab Results - Last 24 Hours (Table) 03/17/19 03/18/19 Range/Units 11:55 08:59 Glucose 157 H (74-99) mg/dL Calcium 8.3 L (8.4-10.2) mg/dL Urine Protein Trace H (Negative) Urine Glucose (UA) 4+ H (Negative) Urine Ketones Trace H (Negative) Urine Blood Small H (Negative) Ur Leukocyte Esterase Small H (Negative) Urine RBC 21 H (0-5) /hpf Urine WBC 7 H (0-5) /hpf Urine Mucus Rare H (None) /hpf Microbiology - Last 24 Hours (Table) 03/15/19 20:45 Blood Culture - Preliminary Blood No Growth after 48 hours Assessment and Plan Assessment: Acute exacerbation of multiple sclerosis with bilateral lower extremity weakness, mostly secondary to above. Neurologist following the case Urinary tract infection with urine culture positive for Streptococcus agalactiae possible Drug-seeking behavior Chronic leukocytosis History of asthma Chronic fibromyalgia History of GERD Essential hypertension History of migraine Plan: This is a pleasant 59 years old female who presents because of UTI and possible multiple sclerosis a flareup for her bilateral leg weakness .Neurology evaluated the patient. And recommended MRI in our facility as MRI machine is down at this hospital, however patient refused to go to another hospital told to do the MRI risks and benefits are explained for the patient including the risk of neurological lack spinal call or bring lesion. She verbalized understanding and wishes to perfuse. Continue with steroids and ceftriaxone. Follow-up neurologist recommendation . renal ultrasound is unremarkable. ID consult is called Labs and medication were reviewed.. Continue same treatment. Continue with symptomatic treatment. Resume home medication. Monitor lytes and vitals. DVT and GI prophylaxis. Further recommendations of the clinical course of the patient DVT prophylaxis: Subcutaneous Lovenox GI Prophylaxis: Pepcid PT/OT: Recommended home care, ordered Prognosis is guarded
[2019-03-18] MEDS: ONDANSETRON 4 MG/2 ML VIAL IVP PRN (12:04)
[2019-03-18 19:09] VITALS: RESP 18
--- NOTE | 2019-03-18 21:40 | P.CONS ---
History of Present Illness - Reason for Consult Consult date: 03/18/19 Urinary tract infection Requesting physician: Axel E Sheet - Chief Complaint Urinary burning and frequency x few days - History of Present Illness Patient is a 39-year-old female with a past medical history significant for MS and history of recurrent UTI patient apparently still have symptoms of urinary pressure and some burning and frequency for the patient went to [facility] patient says she did have a UA and she was told there was no UTI but the same time mention she was given an antibiotic the patient symptoms continue rather progressed with burning and frequency some flank pain and nauseated but no vomiting and started having some weakness in the leg with concern for possible MS exacerbation patient presented to [facility] ER on arrival to the ER the patient has been afebrile patient did have elevated white count of 14,000 she did have a positive UA patient was started on Rocephin 1 g daily and has been seen by neurology started on steroids infectious disease was consulted for recommendations on antibiotic therapy as the patient did have multiple antibiotic ALLERGIES Review of Systems Positive points has been mentioned in HPI rest of the systems are negative Past Medical History Past Medical History: Asthma, Fibromyalgia, GERD/Reflux, Hypertension, Musculoskeletal Disorder, Neurologic Disorder, Pneumonia, Seizure Disorder Additional Past Medical History / Comment(s): Multiple Sclerosis, migraines, DJD, interstitial cystitis, UTI, PCOS, vit D deficiency, bilateral optic neuritis with visual problems, generalized chronic pain, numbness/tingling bilateral lower legs, tachycardia, c-diff 5-9-15, seizures from MS last one around 2014 History of Any Multi-Drug Resistant Organisms: C-DIFF Year Discovered:: 2017 MDRO Source:: stool Past Surgical History: Cholecystectomy, Orthopedic Surgery Additional Past Surgical History / Comment(s): Lt shoulder rotator cuff repair 06/06/14, arthroscopic left knee 2000 & 2002, left shoulder reconstruction Past Anesthesia/Blood Transfusion Reactions: No Reported Reaction Additional Past Anesthesia/Blood Transfusion Reaction / Comm: Pt has never recieved blood. Past Psychological History: Anxiety, Depression, Depression Additional Psychological History / Comment(s): . Smoking Status: Former smoker Past Alcohol Use History: None Reported Additional Past Alcohol Use History / Comment(s): STARTED SMOKING AGE 17 and quit in 2017 but is using vapor cigarette somedays. Patient denies any medical marijuana, marijuana, street drug use. She denies any alcohol use or abuse. Patient is and lives with her and one child. No recent travel. Patient is on disability. Past Drug Use History: Marijuana - Past Family History Mother Family Medical History: No Reported History Additional Family Medical History / Comment(s): mother is healthy Father Family Medical History: Hypertension Medications and Allergies Home Medications Medication Instructions Recorded Confirmed Type Albuterol Inhaler [Ventolin Hfa 2 puff INHALATION RT-QID PRN 12/09/13 03/15/19 History Inhaler] Ipratropium/Albuterol Sulfate 1 puff INHALATION RT-QID PRN 12/09/13 03/15/19 History [Combivent Respimat Inhaler] Albuterol Nebulized [Ventolin 2.5 mg INHALATION RT-QID PRN 01/26/18 03/15/19 History Nebulized] Diazepam [Valium] 5 mg PO TID PRN 05/24/18 03/15/19 History Lisinopril [Zestril] 10 mg PO DAILY 05/24/18 03/15/19 History Metaxalone [Skelaxin] 400 mg PO TID 08/11/18 03/15/19 History Dimethyl Fumarate [Tecfidera] 240 mg PO BID 09/20/18 03/15/19 History Amitriptyline HCl 150 mg PO DAILY 01/26/19 03/15/19 History Allergies Allergy/AdvReac Type Severity Reaction Status Date / Time amoxicillin [Amoxicillin] Allergy Severe Anaphylaxis, Verified 03/15/19 17:08 seizures ciprofloxacin [From Cipro] Allergy Severe Rash/Hives, Verified 03/15/19 17:08 seizures codeine phosphate Allergy Unknown Rash/Hives Verified 03/15/19 17:08 [From Tylenol-Codeine #3] cefuroxime axetil Allergy Rash/Hives Verified 03/15/19 17:08 [From Ceftin] ketorolac [From Toradol] Allergy Rash/Hives Verified 03/15/19 17:08 latex Allergy Rash/Hives Verified 03/15/19 17:08 NSAIDS (Non-Steroidal Allergy Rash/Hives/Lip Verified 03/15/19 17:08 Anti-Inflamma Swelling Physical Exam Vitals: Vital Signs Temp Pulse Resp BP BP Pulse Ox 03/18/19 04:55 97.8 F 84 16 180/102 92 L 03/17/19 20:15 97.9 F 77 20 138/81 94 L 03/17/19 13:50 149/95 03/17/19 12:50 97.9 F 65 18 148/103 93 L Intake and Output 03/17/19 03/18/19 03/18/19 22:59 06:59 14:59 Intake Total 540 Balance 540 Intake: Oral 540 Other: # Voids 1 2 GENERAL DESCRIPTION: Middle-aged female lying in bed, no distress. No tachypnea or accessory muscle of respiration use. HEENT: Shows Pallor , no scleral icterus. Oral mucous membrane is dry. No pharyngeal erythema or thrush NECK: Trachea central, no thyromegaly. LUNGS: Unlabored breathing. Clear to auscultation anteriorly. No wheeze or crackle. HEART: S1, S2, regular rate and rhythm. No loud murmur ABDOMEN: Soft, no tenderness , guarding or rigidity, no organomegaly EXTREMITIES: No edema of feet. SKIN: No rash, no masses palpable. NEUROLOGICAL: The patient is awake, alert, oriented x3, mood and affect normal. Results CBC & Chem 7: 03/15/19 17:35 03/18/19 08:59 Labs: Abnormal Lab Results - Last 24 Hours (Table) 03/17/19 03/18/19 Range/Units 11:55 08:59 Glucose 157 H (74-99) mg/dL Calcium 8.3 L (8.4-10.2) mg/dL Urine Protein Trace H (Negative) Urine Glucose (UA) 4+ H (Negative) Urine Ketones Trace H (Negative) Urine Blood Small H (Negative) Ur Leukocyte Esterase Small H (Negative) Urine RBC 21 H (0-5) /hpf Urine WBC 7 H (0-5) /hpf Urine Mucus Rare H (None) /hpf Microbiology - Last 24 Hours (Table) 03/15/19 20:45 Blood Culture - Preliminary Blood No Growth after 48 hours Assessment and Plan Assessment: 1-patient presented to hospital with urinary burning frequency some flank discomfort nausea in this patient did have elevated total of 14,000 also with significant positive UA likely representing a symptomatic urinary tract inf ection from enteric gram-negative pathogen #2Patient with multiple antibiotics ALLERGIES that will limit the number of antibiotic safe to use Plan: 1-Rocephin 1 g daily while waiting for urine culture finalized 2-gentle IV fluid we will follow on clinical condition and culture to further adjust medication if needed Thank you for this consultation will follow this patient along with you Time with Patient: Greater than 30
[2019-03-18 22:01] VITALS: BP 140/79; PULSE 63; TEMP 98.9
== END 2019-03-18 21:56 | disposition left against medical advice (07) | DRG 59 ==
LOC: EC 16:33 → INTOOBSV 20:00 → 4MS4W 20:00 → OBSVTOIN 03-17 08:17
PROVIDERS: ADMIT Internal Medicine; ATTEND Internal Medicine
DX: G35 Multiple sclerosis (principal); N39.0 Urinary tract infection, site not specified; B95.4 Other streptococcus as the cause of diseases classified elsewhere; J45.909 Unspecified asthma, uncomplicated; G40.909 Epilepsy, unspecified, not intractable, without status epilepticus; M79.7 Fibromyalgia; K21.9 Gastro-esophageal reflux disease without esophagitis; G43.909 Migraine, unspecified, not intractable, without status migrainosus; E28.2 Polycystic ovarian syndrome; F32.9 Major depressive disorder, single episode, unspecified; E55.9 Vitamin D deficiency, unspecified; M54.81 Occipital neuralgia; G89.29 Other chronic pain; M19.90 Unspecified osteoarthritis, unspecified site; I10 Essential (primary) hypertension; E03.9 Hypothyroidism, unspecified; F41.9 Anxiety disorder, unspecified; M21.372 Foot drop, left foot; M21.371 Foot drop, right foot; T45.1X6A Underdosing of antineoplastic and immunosuppressive drugs, initial encounter; Z91.128 Patient's intentional underdosing of medication regimen for other reason; E66.9 Obesity, unspecified; Z68.35 Body mass index [BMI] 35.0-35.9, adult; Z79.899 Other long term (current) drug therapy; Z76.5 Malingerer [conscious simulation]; Z87.01 Personal history of pneumonia (recurrent); Z86.19 Personal history of other infectious and parasitic diseases; Z87.440 Personal history of urinary (tract) infections; Z90.49 Acquired absence of other specified parts of digestive tract; Z98.890 Other specified postprocedural states; Z87.891 Personal history of nicotine dependence; Z88.5 Allergy status to narcotic agent; Z88.0 Allergy status to penicillin; Z88.8 Allergy status to other drugs, medicaments and biological substances; Z88.1 Allergy status to other antibiotic agents; Z91.040 Latex allergy status; Y63.6 Underdosing and nonadministration of necessary drug, medicament or biological substance; Z82.49 Family history of ischemic heart disease and other diseases of the circulatory system
CPT/HCPCS: 36415; 71046; 76770; 80048; 80053; 81001; 83735; 83880; 84484; 85025; 85610; 85730; 87040; 87086; 93970; 94640; 96361; 96374; 96375; 99285

== ENCOUNTER → 2019-05-28 | Outpatient (CLI) | payer MEDICARE, OTHER ==
--- NOTE | 2019-05-28 12:36 | MR ---
EXAMINATION TYPE: MR shoulder LT wo con DATE OF EXAM: 05/28/2019 COMPARISON: Left shoulder x-rays dated 05/24/2018 HISTORY: Left shoulder pain TECHNIQUE: Multiplanar, multisequence imaging of the left shoulder is performed without contrast. FINDINGS: Rotator Cuff: There is evidence of prior rotator cuff repair with susceptibility artifact created fro m postoperative change of the acromioclavicular joint and humeral head. Motion artifact is seen on th e sagittal images, additionally limiting evaluation for the rotator cuff. There is a low-grade partial-thickness bursal surface tear versus re-tear of the supraspinatus measur ing 6 x 7 mm. Remainder of the supraspinatus is intact with only very mild tendinopathy is signal alt eration of the intrinsic fiber signal. There is a partial thickness bursal surface tear of the infraspinatus at its most posterior fibers me asuring 8 x 5 mm at the myotendinous junction. The distal fibers and insertional fibers are intact wi th minimal fraying of the articular surface fibers. Teres minor is unremarkable in muscle volume and signal. There is mild tendinosis of the distal fibers of the subscapularis. No discrete tear. Acromioclavicular Joint: Postsurgical changes of the acromioclavicular joint are seen creating suscep tibility artifact. Glenohumeral Joint: Glenohumeral joint maintains normal alignment with slight chondral irregularity. Labrum: The labrum is limited given limitation of non-arthrogram study and motion. There is at least labral degeneration of the anterior inferior and posterior superior glenoid labrum. Biceps Tendon: The long head of biceps is in normal location within bicipital groove. Bone marrow signal: No focal abnormal marrow signal is appreciated. IMPRESSION: 1. Partial-thickness bursal surface tear versus re-tear of the supraspinatus measuring 6 x 7 mm. This is superimposed upon mild tendinopathy. 2. Partial-thickness bursal surface tear versus re-tear of the infraspinatus measuring 8 x 5 mm with articular surface insertional fiber fraying. 3. Suboptimal evaluation of the labrum given nonarthrographic exam and motion. There is at least labr al degeneration of the anterior inferior and posterior superior glenoid labrum. 4. Very mild chondral irregularity of the glenoid humeral joint.
== END | disposition home or self-care (01) ==
LOC: RADMRIMAIN 11:04
PROVIDERS: ATTEND Orthopaedic Surgery
DX: M25.812 Other specified joint disorders, left shoulder (principal); R93.7 Abnormal findings on diagnostic imaging of other parts of musculoskeletal system; M25.512 Pain in left shoulder

== ENCOUNTER 2019-06-13 16:03 | Inpatient (IN) | payer MEDICARE, OTHER ==
[2019-06-13] MEDS ORDERED: SODIUM CHLORIDE 0.9% 1,000 ML IV STA (16:40)
[2019-06-13] MEDS ORDERED: ONDANSETRON 4 MG/2 ML VIAL IVP STA (16:40)
[2019-06-13] MEDS ORDERED: MORPHINE SULFATE 4 MG/ML SYRINGE IVP STA (16:42)
[2019-06-13 17:19] LABS: Basophils # (A) 0.1 k/uL (0-0.2); Basophils % (A) 0 %; Eosinophils # (A) 0.7 k/uL (0-0.7); Eosinophils % (A) 4 %; HCT 42.1 % (34.0-46.0); Lymphocytes % (A) 21 %; MCH 28.8 pg (25.0-35.0); MCHC 33.2 g/dL (31.0-37.0); MCV 86.7 fL (80.0-100.0); Mean Platelet Volume 6.1; Monocytes # (A) 0.7 k/uL (0-1.0); Monocytes % (A) 4 %; Neutrophils # (A) 12.8 k/uL (1.3-7.7); Neutrophils % (A) 69 %; Platelet Count 452 k/uL (150-450); RBC 4.86 m/uL (3.80-5.40); RDW 13.2 % (11.5-15.5); WBC 18.7 k/uL (3.8-10.6)
[2019-06-13 17:21] LABS: Appearance,Urine Clear (Clear); Bilirubin,Urine Negative (Negative); Blood,Urine Small (Negative); Color,Urine Light Yellow; Glucose,Urine (UA) Negative (Negative); Ketones,Urine Negative (Negative); Leukocyte Esterase,Urine Moderate (Negative); Mucus,Urine Rare /hpf; Nitrite,Urine Negative (Negative); PH, Urine 5.5 (5.0-8.0); Protein,Urine Negative (Negative); RBC,Urine 4 /hpf (0-5); Specific Gravity,Urine 1.017 (1.001-1.035); Squamous Epithelial Cell,Urine 1 /hpf (0-4); Urobilinogen,Urine <2.0 mg/dL (<2.0); WBC,Urine 2 /hpf (0-5)
[2019-06-13 17:29] LABS: ALT 20 U/L (9-52); AST 18 U/L (14-36); African American GFR (CKD) >90 (>60 ml/min/1.73 sqM); Alkaline Phosphatase 52 U/L (38-126); Anion Gap 8 mmol/L; Blood Urea Nitrogen 11 mg/dL (7-17); Calcium 9.5 mg/dL (8.4-10.2); Carbon Dioxide 24 mmol/L (22-30); Chloride 106 mmol/L (98-107); Glucose 103 mg/dL (74-99); INR 0.9 (<1.2); Magnesium 1.7 mg/dL (1.6-2.3); Partial Thromboplastin Time 23.9 sec (22.0-30.0); Prothrombin Time 9.8 sec (9.0-12.0); Sodium 138 mmol/L (137-145); Total Bilirubin 0.1 mg/dL (0.2-1.3); Total Protein 6.7 g/dL (6.3-8.2)
--- NOTE | 2019-06-13 17:34 | ED ---
Neuro HPI - General Chief Complaint: Neuro Symptoms/Deficit Stated Complaint: Weakness, MS Time Seen by Provider: 06/13/19 16:24 Source: patient, RN notes reviewed, old records reviewed Mode of arrival: ambulatory Limitations: no limitations - Related Data Home Medications: Home Medications Medication Instructions Recorded Confirmed Albuterol Inhaler [Ventolin Hfa 2 puff INHALATION RT-QID PRN 12/09/13 03/15/19 Inhaler] Ipratropium/Albuterol Sulfate 1 puff INHALATION RT-QID PRN 12/09/13 03/15/19 [Combivent Respimat Inhaler] Albuterol Nebulized [Ventolin 2.5 mg INHALATION RT-QID PRN 01/26/18 03/15/19 Nebulized] Diazepam [Valium] 5 mg PO TID PRN 05/24/18 03/15/19 Lisinopril [Zestril] 10 mg PO DAILY 05/24/18 03/15/19 Metaxalone [Skelaxin] 400 mg PO TID 08/11/18 03/15/19 Dimethyl Fumarate [Tecfidera] 240 mg PO BID 09/20/18 03/15/19 Amitriptyline HCl 150 mg PO DAILY 01/26/19 03/15/19 Allergies/Adverse Reactions: Allergies Allergy/AdvReac Type Severity Reaction Status Date / Time amoxicillin [Amoxicillin] Allergy Severe Anaphylaxis, Verified 06/13/19 16:10 seizures ciprofloxacin [From Cipro] Allergy Severe Rash/Hives, Verified 06/13/19 16:10 seizures codeine phosphate Allergy Unknown Rash/Hives Verified 06/13/19 16:10 [From Tylenol-Codeine #3] cefuroxime axetil Allergy Rash/Hives Verified 06/13/19 16:10 [From Ceftin] ketorolac [From Toradol] Allergy Rash/Hives Verified 06/13/19 16:10 latex Allergy Rash/Hives Verified 06/13/19 16:10 NSAIDS (Non-Steroidal Allergy Rash/Hives/Lip Verified 06/13/19 16:10 Anti-Inflamma Swelling Review of Systems ROS Statement: Those systems with pertinent positive or pertinent negative responses have been documented in the HPI. ROS Other: All systems not noted in ROS Statement are negative. General Exam Limitations: no limitations Stroke MDM - Lab Data Result diagrams: 06/13/19 17:03 06/13/19 17:03 Lab Results 06/13/19 06/13/19 06/13/19 Range/Units 17:03 17:03 17:03 WBC 18.7 H (3.8-10.6) k/uL RBC 4.86 (3.80-5.40) m/uL Hgb 14.0 (11.4-16.0) gm/dL Hct 42.1 (34.0-46.0) % MCV 86.7 (80.0-100.0) fL MCH 28.8 (25.0-35.0) pg MCHC 33.2 (31.0-37.0) g/dL RDW 13.2 (11.5-15.5) % Plt Count 452 H (150-450) k/uL Neutrophils % 69 % Lymphocytes % 21 % Monocytes % 4 % Eosinophils % 4 % Basophils % 0 % Neutrophils # 12.8 H (1.3-7.7) k/uL Lymphocytes # 4.0 (1.0-4.8) k/uL Monocytes # 0.7 (0-1.0) k/uL Eosinophils # 0.7 (0-0.7) k/uL Basophils # 0.1 (0-0.2) k/uL PT (9.0-12.0) sec INR (<1.2) APTT (22.0-30.0) sec Sodium 138 (137-145) mmol/L Potassium 4.0 (3.5-5.1) mmol/L Chloride 106 (98-107) mmol/L Carbon Dioxide 24 (22-30) mmol/L Anion Gap 8 mmol/L BUN 11 (7-17) mg/dL Creatinine 0.60 (0.52-1.04) mg/dL Est GFR (CKD-EPI)AfAm >90 (>60 ml/min/1.73 sqM) Est GFR (CKD-EPI)NonAf >90 (>60 ml/min/1.73 sqM) Glucose 103 H (74-99) mg/dL Plasma Lactic Acid Tmo 1.3 (0.7-2.0) mmol/L Calcium 9.5 (8.4-10.2) mg/dL Magnesium 1.7 (1.6-2.3) mg/dL Total Bilirubin 0.1 L (0.2-1.3) mg/dL AST 18 (14-36) U/L ALT 20 (9-52) U/L Alkaline Phosphatase 52 (38-126) U/L Total Protein 6.7 (6.3-8.2) g/dL Albumin 4.0 (3.5-5.0) g/dL Urine Color Urine Appearance (Clear) Urine pH (5.0-8.0) Ur Specific Rhodelia (1.001-1.035) Urine Protein (Negative) Urine Glucose (UA) (Negative) Urine Ketones (Negative) Urine Blood (Negative) Urine Nitrite (Negative) Urine Bilirubin (Negative) Urine Urobilinogen (<2.0) mg/dL Ur Leukocyte Esterase (Negative) Urine RBC (0-5) /hpf Urine WBC (0-5) /hpf Ur Squamous Epith Cells (0-4) /hpf Urine Mucus (None) /hpf 06/13/19 06/13/19 Range/Units 17:03 17:03 WBC (3.8-10.6) k/uL RBC (3.80-5.40) m/uL Hgb (11.4-16.0) gm/dL Hct (34.0-46.0) % MCV (80.0-100.0) fL MCH (25.0-35.0) pg MCHC (31.0-37.0) g/dL RDW (11.5-15.5) % Plt Count (150-450) k/uL Neutrophils % % Lymphocytes % % Monocytes % % Eosinophils % % Basophils % % Neutrophils # (1.3-7.7) k/uL Lymphocytes # (1.0-4.8) k/uL Monocytes # (0-1.0) k/uL Eosinophils # (0-0.7) k/uL Basophils # (0-0.2) k/uL PT 9.8 (9.0-12.0) sec INR 0.9 (<1.2) APTT 23.9 (22.0-30.0) sec Sodium (137-145) mmol/L Potassium (3.5-5.1) mmol/L Chloride (98-107) mmol/L Carbon Dioxide (22-30) mmol/L Anion Gap mmol/L BUN (7-17) mg/dL Creatinine (0.52-1.04) mg/dL Est GFR (CKD-EPI)AfAm (>60 ml/min/1.73 sqM) Est GFR (CKD-EPI)NonAf (>60 ml/min/1.73 sqM) Glucose (74-99) mg/dL Plasma Lactic Acid Tom (0.7-2.0) mmol/L Calcium (8.4-10.2) mg/dL Magnesium (1.6-2.3) mg/dL Total Bilirubin (0.2-1.3) mg/dL AST (14-36) U/L ALT (9-52) U/L Alkaline Phosphatase (38-126) U/L Total Protein (6.3-8.2) g/dL Albumin (3.5-5.0) g/dL Urine Color Light Yellow Urine Appearance Clear (Clear) Urine pH 5.5 (5.0-8.0) Ur Specific Rhodelia 1.017 (1.001-1.035) Urine Protein Negative (Negative) Urine Glucose (UA) Negative (Negative) Urine Ketones Negative (Negative) Urine Blood Small H (Negative) Urine Nitrite Negative (Negative) Urine Bilirubin Negative (Negative) Urine Urobilinogen <2.0 (<2.0) mg/dL Ur Leukocyte Esterase Moderate H (Negative) Urine RBC 4 (0-5) /hpf Urine WBC 2 (0-5) /hpf Ur Squamous Epith Cells 1 (0-4) /hpf Urine Mucus Rare H (None) /hpf Past Medical History Past Medical History: Asthma, Fibromyalgia, GERD/Reflux, Hypertension, Musculoskeletal Disorder, Neurologic Disorder, Pneumonia, Seizure Disorder Additional Past Medical History / Comment(s): Multiple Sclerosis, migraines, DJD, interstitial cystitis, UTI, PCOS, vit D deficiency, bilateral optic neuritis with visual problems, generalized chronic pain, numbness/tingling bi lateral lower legs, tachycardia, c-diff 5-9-15, seizures from MS last one around 2014 History of Any Multi-Drug Resistant Organisms: C-DIFF Date of last positivie culture/infection: 2016 MDRO Source:: stool Past Surgical History: Cholecystectomy, Orthopedic Surgery Additional Past Surgical History / Comment(s): Lt shoulder rotator cuff repair 06/06/14, arthroscopic left knee 2000 & 2002, left shoulder reconstruction Past Anesthesia/Blood Transfusion Reactions: No Reported Reaction Additional Past Anesthesia/Blood Transfusion Reaction / Comment(s): Pt has never recieved blood. Past Psychological History: Anxiety, Depression, Depression Smoking Status: Former smoker Past Alcohol Use History: None Reported Past Drug Use History: Marijuana - Past Family History Mother Family Medical History: No Reported History Additional Family Medical History / Comment(s): mother is healthy Father Family Medical History: Hypertension Course Vital Signs 06/13/19 16:08 Temperature 98.6 F Pulse Rate 104 H Respiratory 20 Rate Blood Pressure 148/89 O2 Sat by Pulse 97 Oximetry Disposition Referrals: Sj Fitch MD [Primary Care Provider] - 1-2 days
--- NOTE | 2019-06-13 18:36 | ED ---
General Adult HPI - General Chief complaint: Neuro Symptoms/Deficit Stated complaint: Weakness, MS Time Seen by Provider: 06/13/19 16:24 Source: patient, RN notes reviewed, old records reviewed Mode of arrival: ambulatory Limitations: no limitations - History of Present Illness Initial comments: This Patient is a 39-year-old female well-known to emergency department today for the complete chief complaint of an MS flare. Patient has flares up of her M S or time to time. Patient states that she gets pain within her left arm, complains of his upper body weakness. She also complains of some episodes of nausea and vomiting unable to tolerate her by mouth medications. Patient reports that her main neurologist is down towards [place]. She has not been on recent steroids. She denies any headache. She also complains of some left eye visual loss. Complains of blurry vision within the left eye. Her eye has no drainage or significant pain to it. - Related Data Home Medications Medication Instructions Recorded Confirmed Albuterol Inhaler [Ventolin Hfa 2 puff INHALATION RT-QID PRN 12/09/13 03/15/19 Inhaler] Ipratropium/Albuterol Sulfate 1 puff INHALATION RT-QID PRN 12/09/13 03/15/19 [Combivent Respimat Inhaler] Albuterol Nebulized [Ventolin 2.5 mg INHALATION RT-QID PRN 01/26/18 03/15/19 Nebulized] Diazepam [Valium] 5 mg PO TID PRN 05/24/18 03/15/19 Lisinopril [Zestril] 10 mg PO DAILY 05/24/18 03/15/19 Metaxalone [Skelaxin] 400 mg PO TID 08/11/18 03/15/19 Dimethyl Fumarate [Tecfidera] 240 mg PO BID 09/20/18 03/15/19 Amitriptyline HCl 150 mg PO DAILY 01/26/19 03/15/19 Allergies Allergy/AdvReac Type Severity Reaction Status Date / Time amoxicillin [Amoxicillin] Allergy Severe Anaphylaxis, Verified 06/13/19 16:10 seizures ciprofloxacin [From Cipro] Allergy Severe Rash/Hives, Verified 06/13/19 16:10 seizures codeine phosphate Allergy Unknown Rash/Hives Verified 06/13/19 16:10 [From Tylenol-Codeine #3] cefuroxime axetil Allergy Rash/Hives Verified 06/13/19 16:10 [From Ceftin] ketorolac [From Toradol] Allergy Rash/Hives Verified 06/13/19 16:10 latex Allergy Rash/Hives Verified 06/13/19 16:10 NSAIDS (Non-Steroidal Allergy Rash/Hives/Lip Verified 06/13/19 16:10 Anti-Inflamma Swelling Review of Systems ROS Statement: Those systems with pertinent positive or pertinent negative responses have been documented in the HPI. ROS Other: All systems not noted in ROS Statement are negative. Past Medical History Past Medical History: Asthma, Fibromyalgia, GERD/Reflux, Hypertension, Mu sculoskeletal Disorder, Neurologic Disorder, Pneumonia, Seizure Disorder Additional Past Medical History / Comment(s): Multiple Sclerosis, migraines, DJD, interstitial cystitis, UTI, PCOS, vit D deficiency, bilateral optic neuritis with visual problems, generalized chronic pain, numbness/tingling bilateral lower legs, tachycardia, c-diff 5-9-15, seizures from MS last one a round 2014 History of Any Multi-Drug Resistant Organisms: C-DIFF Date of last positivie culture/infection: 2017 MDRO Source:: stool Past Surgical History: Cholecystectomy, Orthopedic Surgery Additional Past Surgical History / Comment(s): Lt shoulder rotator cuff repair 06/06/14, arthroscopic left knee 2000 & 2002, left shoulder reconstruction Past Anesthesia/Blood Transfusion Reactions: No Reported Reaction Additional Past Anesthesia/Blood Transfusion Reaction / Comment(s): Pt has never recieved blood. Past Psychological History: Anxiety, Depression, Depression Smoking Status: Former smoker Past Alcohol Use History: None Reported Past Drug Use History: Marijuana - Past Family History Mother Family Medical History: No Reported History Additional Family Medical History / Comment(s): mother is healthy Father Family Medical History: Hypertension General Exam - General Exam Comments Initial Comments: Is a 39-year-old female. Alert and oriented 3. Patient appears in no acute distress. Limitations: no limitations General appearance: alert, in no apparent distress Head exam: Present: atraumatic, normocephalic, normal inspection Eye exam: Present: normal appearance, PERRL, EOMI. Absent: scleral icterus, conjunctival injection, periorbital swelling ENT exam: Present: normal exam, mucous membranes moist Neck exam: Present: normal inspection. Absent: tenderness, meningismus, lym phadenopathy Respiratory exam: Present: normal lung sounds bilaterally. Absent: respiratory distress, wheezes, rales, rhonchi, stridor Cardiovascular Exam: Present: regular rate, normal rhythm, normal heart sounds. Absent: systolic murmur, diastolic murmur, rubs, gallop, clicks GI/Abdominal exam: Present: soft, normal bowel sounds. 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 Normal pulses. She complains of diminished sensation over her left hand.). Absent: tenderness, pedal edema, joint swelling, calf tenderness Back exam: Present: normal inspection Neurological exam: Present: alert, oriented X3 Psychiatric exam: Present: normal affect, normal mood Skin exam: Present: warm, dry, intact, normal color. Absent: rash Course Vital Signs 06/13/19 16:08 Temperature 98.6 F Pulse Rate 104 H Respiratory 20 Rate Blood Pressure 148/89 O2 Sat by Pulse 97 Oximetry - Reevaluation(s) Reevaluation #1: 06/13/19 18:30 was seen drinking a Pepsi, using her left hand. EKG Findings - EKG Comments: EKG Findings:: EKG shows normal sinus rhythm. Ventricular rate of 97 bpm. Verbal is 122 ms. QRS ration 72 ms. QT QTc is 336/426 ms. Medical Decision Making - Medical Decision Making 39-year-old female well-known to emergency department today she complains of an MS flare, left-sided weakness, left-sided arm and upper chin the pain. She has been seen by myself and multiple fractures emergency department many times. This is no different than her last flare ups. I discussed that I'll need further imaging or CAT scans of her brain at this time. Patient is agreeable to this plan. She has no signs of eye pain or photophobia on exam. She does complain of diminished of blurry vision in the left eye. Patient had an EKG was performed which was negative. Lab work was reviewed. Mild leukocytosis noted. She is afebrile at this time. Patient was started on IV steroids for MS flareup. I discussed no further IV pain medication unless determined by admitting physician. Patient eventually was seen holding a can of Coke with her left hand but previously she would not lift up. Patient's case was discussed with Dr. Soto who will admit for IV steroids. - Lab Data Result diagrams: 06/13/19 17:03 06/13/19 17:03 Lab Results 06/13/19 06/13/19 06/13/19 Range/Units 17:03 17: 17:03 WBC 18.7 H (3.8-10.6) k/uL RBC 4.86 (3.80-5.40) m/uL Hgb 14.0 (11.4-16.0) gm/dL Hct 42.1 (34.0-46.0) % MCV 86.7 (80.0-100.0) fL MCH 28.8 (25.0-35.0) pg MCHC 33.2 (31.0-37.0) g/dL RDW 13.2 (11.5-15.5) % Plt Count 452 H (150-450) k/uL Neutrophils % 69 % Lymphocytes % 21 % Monocytes % 4 % Eosinophils % 4 % Basophils % 0 % Neutrophils # 12.8 H (1.3-7.7) k/uL Lymphocytes # 4.0 (1.0-4.8) k/uL Monocytes # 0.7 (0-1.0) k/uL Eosinophils # 0.7 (0-0.7) k/uL Basophils # 0.1 (0-0.2) k/uL PT (9.0-12.0) sec INR (<1.2) APTT (22.0-30.0) sec Sodium 138 (137-145) mmol/L Potassium 4.0 (3.5-5.1) mmol/L Chloride 106 (98-107) mmol/L Carbon Dioxide 24 (22-30) mmol/L Anion Gap 8 mmol/L BUN 11 (7-17) mg/dL Creatinine 0.60 (0.52-1.04) mg/dL Est GFR (CKD-EPI)AfAm >90 (>60 ml/min/1.73 sqM) Est GFR (CKD-EPI)NonAf >90 (>60 ml/min/1.73 sqM) Glucose 103 H (74-99) mg/dL Plasma Lactic Acid Tom 1.3 (0.7-2.0) mmol/L Calcium 9.5 (8.4-10.2) mg/dL Magnesium 1.7 (1.6-2.3) mg/dL Total Bilirubin 0.1 L (0.2-1.3) mg/dL AST 18 (14-36) U/L ALT 20 (9-52) U/L Alkaline Phosphatase 52 (38-126) U/L Troponin I (0.000-0.034) ng/mL Total Protein 6.7 (6.3-8.2) g/dL Albumin 4.0 (3.5-5.0) g/dL Urine Color Urine Appearance (Clear) Urine pH (5.0-8.0) Ur Specific Newcomb (1.001-1.035) Urine Protein (Negative) Urine Glucose (UA) (Negative) Urine Ketones (Negative) Urine Blood (Negative) Urine Nitrite (Negative) Urine Bilirubin (Negative) Urine Urobilinogen (<2.0) mg/dL Ur Leukocyte Esterase (Negative) Urine RBC (0-5) /hpf Urine WBC (0-5) /hpf Ur Squamous Epith Cells (0-4) /hpf Urine Mucus (None) /hpf 06/13/19 06/13/19 06/13/19 Range/Units 17:03 17:03 17:03 WBC (3.8-10.6) k/uL RBC (3.80-5.40) m/uL Hgb (11.4-16.0) gm/dL Hct (34.0-46.0) % MCV (80.0-100.0) fL MCH (25.0-35.0) pg MCHC (31.0-37.0) g/dL RDW (11.5-15.5) % Plt Count (150-450) k/uL Neutrophils % % Lymphocytes % % Monocytes % % Eosinophils % % Basophils % % Neutrophils # (1.3-7.7) k/uL Lymphocytes # (1.0-4.8) k/uL Monocytes # (0-1.0) k/uL Eosinophils # (0-0.7) k/uL Basophils # (0-0.2) k/uL PT 9.8 (9.0-12.0) sec INR 0.9 (<1.2) APTT 23.9 (22.0-30.0) sec Sodium (137-145) mmol/L Potassium (3.5-5.1) mmol/L Chloride (98-107) mmol/L Carbon Dioxide (22-30) mmol/L Anion Gap mmol/L BUN (7-17) mg/dL Creatinine (0.52-1.04) mg/dL Est GFR (CKD-EPI)AfAm (>60 ml/min/1.73 sqM) Est GFR (CKD-EPI)NonAf (>60 ml/min/1.73 sqM) Glucose (74-99) mg/dL Plasma Lactic Acid Tom (0.7-2.0) mmol/L Calcium (8.4-10.2) mg/dL Magnesium (1.6-2.3) mg/dL Total Bilirubin (0.2-1.3) mg/dL AST (14-36) U/L ALT (9-52) U/L Alkaline Phosphatase (38-126) U/L Troponin I <0.012 (0.000-0.034) ng/mL Total Protein (6.3-8.2) g/dL Albumin (3.5-5.0) g/dL Urine Color Light Yellow Urine Appearance Clear (Clear) Urine pH 5.5 (5.0-8.0) Ur Specific Newcomb 1.017 (1.001-1.035) Urine Protein Negative (Negative) Urine Glucose (UA) Negative (Negative) Urine Ketones Negative (Negative) Urine Blood Small H (Negative) Urine Nitrite Negative (Negative) Urine Bilirubin Negative (Negative) Urine Urobilinogen <2.0 (<2.0) mg/dL Ur Leukocyte Esterase Moderate H (Negative) Urine RBC 4 (0-5) /hpf Urine WBC 2 (0-5) /hpf Ur Squamous Epith Cells 1 (0-4) /hpf Urine Mucus Rare H (None) /hpf Disposition Clinical Impression: Multiple sclerosis Disposition: ADMITTED IP TO THIS HOSP Condition: Stable Is patient prescribed a controlled substance at d/c from ED?: No When asked, does pt state using other controlled substances?: No Referrals: Sj Fitch MD [Primary Care Provider] - 1-2 days Time of Disposition: 18:35
[2019-06-13] MEDS ORDERED: LORazepam 0.5 MG TAB PO PRN (18:37)
[2019-06-13] MEDS ORDERED: NALOXONE 0.4 MG/ML 1 ML VIAL IV PRN (18:37)
[2019-06-13] MEDS ORDERED: ACETAMINOPHEN TAB 325 MG TAB PO PRN (18:37)
[2019-06-13] MEDS ORDERED: HYDROmorphone 1 MG/ML 1 ML SYRINGE IVP STA (19:36)
[2019-06-13] MEDS ORDERED: HYDROmorphone 0.5 MG/0.5 ML SYRINGE IVP STA (19:40)
[2019-06-13 20:47] VITALS: BMI 35.5
[2019-06-13] MEDS ORDERED: LORazepam 2 MG/ML INJ IV PRN (22:04)
[2019-06-13] MEDS ORDERED: HYDROmorphone 0.5 MG/0.5 ML SYRINGE IVP PRN ×2 (22:05→23:59)
[2019-06-13] MEDS: ONDANSETRON 4 MG/2 ML VIAL IVP PRN (22:20)
[2019-06-13] MEDS: SODIUM CHLORIDE 0.9% 1,000 ML IV SCH (22:21)
[2019-06-13] MEDS ORDERED: ALBUTEROL NEBULIZED 2.5 MG/3 ML INHALATION PRN ×2 (23:22)
[2019-06-13] MEDS ORDERED: NON FORMULARY DRUG (Ipratropium/Albuterol Sulfate [Combivent Respimat Inhaler] 1 PUFF) INHALATION PRN (23:22)
[2019-06-13] MEDS ORDERED: DIAZEPAM 5 MG TAB PO PRN (23:22)
[2019-06-13] MEDS ORDERED: IPRATROPIUM 0.5 MG/2.5 ML NEBU INHALATION PRN (23:41)
[2019-06-14] MEDS ORDERED: SUMAtriptan SUCCINATE 50 MG TAB PO PRN
[2019-06-14] MEDS ORDERED: CYCLOBENZAPRINE 10 MG TAB PO PRN (00:30)
[2019-06-14] MEDS: oxyCODONE-APAP 5-325MG 1 EACH TAB PO PRN ×4 (00:33→22:43)
[2019-06-14] MEDS: DIAZEPAM 5 MG TAB PO PRN ×2 (03:43→18:17)
[2019-06-14] MEDS: ONDANSETRON 4 MG/2 ML VIAL IVP PRN ×3 (04:35→22:43)
[2019-06-14 06:57] LABS: Glucose,Whole Blood 169 mg/dL (75-99)
[2019-06-14] MEDS ORDERED: NON FORMULARY DRUG (Dextroamphetamine/Amphetamine [Adderall] 30 MG) PO SCH (07:30)
[2019-06-14] MEDS ORDERED: HYDROmorphone 0.5 MG/0.5 ML SYRINGE IVP STA ×2 (07:47→16:12)
[2019-06-14] MEDS: HEPARIN SODIUM,PORCINE 5,000 UNIT/ML 1 ML VIAL SQ SCH ×3 (08:14→19:50)
[2019-06-14] MEDS: LISINOPRIL 10 MG TAB PO SCH ×2 (08:15→08:20)
[2019-06-14] MEDS: PANTOPRAZOLE 40 MG TABLET PO SCH ×2 (08:15→08:20)
[2019-06-14] MEDS: INSULIN ASPART (NovoLOG) 100 UNIT/ML VIAL SQ SCH ×4 (08:15→21:09)
[2019-06-14] MEDS: NON FORMULARY DRUG (Dimethyl Fumarate [Tecfidera] 240 MG) PO SCH ×2 (08:19→19:51)
--- NOTE | 2019-06-14 09:48 | HP ---
HISTORY AND PHYSICAL DATE OF SERVICE: 06/13/2019 CHIEF COMPLAINT: Pain and weakness. HISTORY OF PRESENT ILLNESS: This 39-year-old woman with a past medical history of multiple sclerosis with multiple exacerbations, being followed by Dr. Dietrich and as well as Dr. Ronaldo Cobb, neurologist in the outpatient setting, was previously on Tecfidera. The patient is complaining of now diffuse aches and pains and also weakness of the left arm an both lower limbs also. MRI has been scheduled tomorrow as an outpatient. There is no history of fever, rigors or chills. No history of headache, loss of consciousness or seizures, chest pain, palpitations at this time. The patient is admitted and high-dose IV steroids initiated. Neurology consultation in progress. PAST MEDICAL HISTORY: History of asthma, fibromyalgia, GERD, hypertension, DJD, history of seizure disorder, history of multiple sclerosis. MEDICATIONS: Prior to admission include home medications are: 1. Imitrex 100 mg daily p.r.n. 2. Zofran 4 mg b.i.d. p.r.n. 3. Skelaxin 800 mg t.i.d. p.r.n. 4. Zestril 10 mg p.o. daily. 5. Combivent 1 puff q.i.d. p.r.n. 6. Tecfidera 240 mg p.o. b.i.d. 7. Valium 5 mg daily p.r.n. 8. Adderall 30 mg a.c. breakfast. 9. Elavil 50 mg q.h.s. 10.Ventolin 2.5 q.i.d. p.r.n. ALLERGIES: AMOXICILLIN, CIPRO, CEFTIN, TORADOL, LATEX. FAMILY HISTORY: No history of heart disease or strokes or neurological illness in the family. SOCIAL HISTORY: Previous history of smoking. No history of current smoking or alcohol intake. No history of substance abuse. REVIEW OF SYSTEMS: ENT: No diminished vision. No diminished hearing. CARDIOVASCULAR: No angina or palpitations. RESPIRATORY: As mentioned earlier. GI no nausea or vomiting. No diarrhea. no dysuria. NERVOUS SYSTEM: As mentioned earlier. ALLERGIES/IMMUNOLOGY: No asthma or hayfever. MUSCULOSKELETAL as mentioned earlier. HEMATOLOGY/ONCOLOGY: No history of anemia. ENDOCRINE: No history of diabetes or hypothyroidism. CONSTITUTIONAL: As mentioned earlier. DERMATOLOGY: Negative. RHEUMATOLOGY negative. PSYCHIATRY as mentioned earlier. PHYSICAL EXAMINATION: Alert and oriented times three. Pulse 93, blood pressure 99/77, respiration 18, temperature 98.6, pulse ox 97% on room air. HEENT is conjunctivae normal. Oral mucosa moist. NECK is no jugular venous distention. No carotid bruit. No lymph node enlargement. CARDIOVASCULAR SYSTEM: S1, S2 muffled. RESPIRATION: Breath sounds diminished in the bases. Few rhonchi. No crackles. ABDOMEN: Soft, obese, nontender. No mass. LEGS no edema. NERVOUS SYSTEM: Higher functions as mentioned earlier. Moves all 4 limbs. Mild diffuse weakness present. No sensory abnormalities. Pulses diminished. SKIN: No ulcer. No rash. No bleeding. JOINTS: No active deforming arthropathy. LYMPHATICS: No lymph nodes palpable in the neck, axillae or groin. LAB: WBC 18.2, hemoglobin 14. INR is 0.9. CMP is glucose is 103. Total bilirubin 0.1. UA noted. ASSESSMENT: 1. Multiple sclerosis, acute exacerbation. 2. Increased WBC. 3. Asthma. 4. Fibromyalgia. 5. Gastroesophageal reflux disease. 6. Hypertension. 7. History of degenerative joint disease. 8. History of pneumonia. 9. History of seizure disorder. 10.History of migraines. 12.History of cystitis. 13.History of polycystic ovaries. 14.History of vitamin D deficiency. 15.History of bilateral optic neuritis. 16.History of C diff. 17.History of cholecystectomy. 18.History of anxiety/depression. 19.Obesity with body mass of 35.5. 20.Remote history of nicotine dependence. RECOMMENDATIONS AND DISCUSSION: In this 39 -year-old woman who presented with multiple complex medical issues, we will monitor the patient closely. Continue the current medications, management and symptomatic treatment. We will initiate high-dose IV steroids. Accu-Cheks a.c. and at bedtime. Resume the home medications. Neurology consult. PT/OT evaluation. Possible MRI. Guarded prognosis because of the multiple complex medical issues. Further recommendations to follow. Repeat labs will be ordered. A copy of this dictation being forwarded to Dr. Dietrich who is the primary physician. MMODL / IJN: [id number] / [facility]
[2019-06-14] MEDS: HYDROmorphone 0.5 MG/0.5 ML SYRINGE IVP PRN ×3 (12:31→20:23)
--- NOTE | 2019-06-14 13:59 | P.CNNES ---
History of Present Illness Consult date: 06/14/19 Reason for Consult: MS Flare Chief complaint: Pain and generalized weakness History of Present Illness: HISTORY OF PRESENT ILLNESS: Thank you for allowing me to evaluate Ms. Lyndsay Uriarte. Of note, patient was seen by me on 03/16/2019 for worsening b/l extremities weakness along with pain. Patient left AMA before getting imaging done. Patient requested pain meds. Ms. Uriarte is a 39-year-old right-handed woman with past medical history of tumefactive multiple sclerosis, hypertension, hypothyroidism, asthma, fibromyalgia, GERD, obesity, occipital neuralgia, right V1 herpes zoster, reported seizures, who presented to [facility] for worsening lower extremity weakness bilaterally along with pain. No recent sickness. This is exactly how her MS flare starts, but this time, patient experiencing some blurred vision in her L eye with pain with eye movement. Patient states that the eye issue sometimes occurs in L and sometimes in the R. From previous consult note: Patient states that about a week and a half ago, patient went to an urgent care because she thought she was having a bladder infection as she felt some pressure in her lower belly along with bad odor. At the time UA was done, and patient was told that it was cleaned. Patient is hesitant to the emergency room because she thought she was having an MS flare, she was having worsening weakness in her bilateral motion and release where she wasn't able to walk on her own along with significant pain right lateral hanson wheeze. Of note, patient continues to ask for either [place] or morphine to relieve her pain in the lower extremities. She states that she doesn't take any pain medications at home. Patient states that her last MS flare was in January 2019 where patient was seen in [facility]. Of note, patient was diagnosed with total active multiple sclerosis about 10 years ago. Patient has an outside MS specialist (), with whom she isn't falling for the last 5 years. Patient states she's been on multiple MS medications was recently on Tecfidera. Patient had a left V1 herpes zoster for which she was antiviral's. With the agreement by the MS specialist, patient had discontinued taking Tecfidera for about 6 weeks. Patient started taking Tecfidera again, but she started having side effects with flushing, diarrhea, and itching. Patient states that she has not been taking her medication for the last 3 weeks. On review of patient's previous records, patient has been evaluated at [facility] multiple times. In August 2018, patient presented with reported weakness involving the left upper extremity and lower lower extremity. At that time patient was also complaining of pain medication, for which the admitting doctor on the allowed oral pain medication. At the time patient left AMA. In January 2019, patient came with symptoms of pain and burning all over her body that was concerning for MS flare to the patient. PAST MEDICAL HISTORY: Tumefactive multiple sclerosis, hypertension, hypothyroidism, asthma, fibromyalgia, GERD, obesity, occipital neuralgia, right V1 herpes zoster, reported seizures PAST SURGICAL HISTORY: Shoulder surgeries, knee surgeries, cholecystectomy. HOME MEDICATIONS: Albuterol, lisinopril 10 mg daily, metaxalone 400 mg TID, Tecfidera 240 mg BID, amitriptyline 150 mg daily, Adderall ALLERGIES: Multiple. Please refer to ALLERGY list. SOCIAL HISTORY: Patient has a history of smoking, but quit in 2018. Denies any alcohol or drug abuse history. Patient is with one child and lives with her and daughter. Patient is able to walk around her house without any assistance, on that she is having an MS flare. FAMILY HISTORY: Cousin with multiple sclerosis. Father with history of hypertension. REVIEW OF SYSTEMS: The 14 systems are reviewed and no additional points are identified compared to the review of systems documented history and physical PHYSICAL EXAMINATION: VITAL SIGNS: T 98.4 HR 94 RR 19 BP 120/87 O2 sat 94% on RA GEN.: NAD, pleasant and cooperative HEENT: NCAT, sclera without icterus NECK: Supple SKIN AND EXTREMITIES: Warm to touch, no edema NEURO: MENTAL STATUS: Patient alert and oriented to self, place, time. Able to name current president. Speech fluent, able to name and repeat, following all commands readily. CRANIAL NERVES II THROUGH XII: II: Pupils are equal and reactive to light symmetrically. No afferent pupillary defect. No color desaturation. OS 20/70 OD 20/25. III, IV, : No ptosis. Extraocular movements full. No nystagmus. V: Facial sensation intact from V1-3. VII. No clear facial asymmetry. VIII: Hearing intact to finger rub bilaterally. IX, X: Symmetric palate elevation. XII: Shoulder shrug intact. XII: Tongue midline without fasciculation or atrophy. MOTOR: Normal bulk/tone. 5/5 strength in left upper extremity. 4+/5 strength in right upper extremity. Patient with difficulty bending her knees bilaterally and dorsi flexing her L foot. At least 4+/5 plantar flexion. SENSORY: Intact to temperature in all 4 extremities. Decreased sensation in bilateral lower extremities, worse distally. REFLEXES: 1 + throughout. Toes are downgoing. COORDINATION: Finger to nose. No dysmetria. GAIT: Deferred as patient with long-standing weakness. DIAGNOSTIC TESTING: Laboratory: WBC 18.7 hemoglobin 14.0 platelet 452 PT 19.8 INR 0.9 sodium 138 potassium 4.0 chloride 106 bicarb 24 BUN 11 creatinine 0.6 glucose 103 AST 18 ALT 20 troponin <0.012 urinalysis moderate leukesterase, negative nitrite. Imaging: MRI of brain/orbit with and without contrast 01/28/2019: Some progression of white matter demyelination as described. No enhancing plaque is noted. Orbits are symmetric unremarkable. Quarterly for possible remote cerebral vascular accident ASSESSMENT and PLAN: Ms. Uriarte is a 39-year-old right-handed woman with past medical history of tumefactive multiple sclerosis, hypertension, hypothyroidism, asthma, fibromyalgia, GERD, obesity, occipital neuralgia, right V1 herpes zoster, reported seizures, who presented to [facility] for worsening lower extremity weakness bilaterally and L eye blurry vision. Patient's biggest complaint at this time is pain in her bilateral lower extremity and patient requesting IV pain medication. Patient found with a dirty UA. Patient reports increase urinary frequency. UTI could be a exacerbating factor in MS patients for flare. Recommendations: 1. MRI orbit/brain/C-spine/T-spine with and without contrast. 2. Start IV steroids 250 mg every 6 hours 3 days. 3. Will check Vitamin D level 4. UTI management per primary. 5. Continue to minimize narcotic use. 6. Increase activity as tolerated 7. Neurology will continue to follow. 8. Patient will need an appointment with her specialist within a week of being discharged to be considered again for a different agent to treat her active MS Past Medical History Past Medical History: Asthma, Fibromyalgia, GERD/Reflux, Hypertension, Musculoskeletal Disorder, Neurologic Disorder, Pneumonia, Seizure Disorder Additional Past Medical History / Comment(s): Multiple Sclerosis, migraines, DJD, interstitial cystitis, UTI, PCOS, vit D deficiency, bilateral optic neuritis with visual problems, generalized chronic pain, numbness/tingling bilateral lower legs, tachycardia, c-diff 5-9-16, seizures from MS last one around 2017 History of Any Multi-Drug Resistant Organisms: C-DIFF Date of last positivie culture/infection: 2017 MDRO Source:: stool Past Surgical History: Cholecystectomy, Orthopedic Surgery Additional Past Surgical History / Comment(s): Lt shoulder rotator cuff repair 06/06/14, arthroscopic left knee 2000 & 2002, left shoulder reconstruction Past Anesthesia/Blood Transfusion Reactions: No Reported Reaction Additional Past Anesthesia/Blood Transfusion Reaction / Comment(s): Pt has never recieved blood. Past Psychological History: Anxiety, Depression, Depression Additional Psychological History / Comment(s): . Smoking Status: Former smoker Past Alcohol Use History: None Reported Additional Past Alcohol Use History / Comment(s): STARTED SMOKING AGE 17 and quit in 2017 but is using vapor cigarette somedays. Patient denies any medical marijuana, marijuana, street drug use. She denies any alcohol use or abuse. Patient is and lives with her and one child. No recent travel. Patient is on disability. Past Drug Use History: Marijuana - Past Family History Mother Family Medical History: No Reported History Additional Family Medical History / Comment(s): mother is healthy Father Family Medical History: Hypertension Medications and Allergies Home Medications Medication Instructions Recorded Confirmed Type Albuterol Inhaler [Ventolin Hfa 2 puff INHALATION RT-QID PRN 12/09/13 06/13/19 History Inhaler] Ipratropium/Albuterol Sulfate 1 puff INHALATION RT-QID PRN 12/09/13 06/13/19 History [Combivent Respimat Inhaler] Albuterol Nebulized [Ventolin 2.5 mg INHALATION RT-QID PRN 01/26/18 06/13/19 History Nebulized] Diazepam [Valium] 5 mg PO DAILY PRN 05/24/18 06/13/19 History Lisinopril [Zestril] 10 mg PO DAILY 05/24/18 06/13/19 History Dimethyl Fumarate [Tecfidera] 240 mg PO BID 09/20/18 06/13/19 History Amitriptyline HCl [Elavil] 150 mg PO HS 06/13/19 06/13/19 History Dextroamphetamine/Amphetamine 30 mg PO AC-BRKFST 06/13/19 06/13/19 History [Adderall] Metaxalone [Skelaxin] 800 mg PO TID PRN 06/13/19 06/13/19 History Ondansetron [Zofran ODT] 4 mg PO BID PRN 06/13/19 06/13/19 History SUMAtriptan SUCCINATE [Imitrex] 100 mg PO DAILY PRN 06/13/19 06/13/19 History Allergies Allergy/AdvReac Type Severity Reaction Status Date / Time amoxicillin [Amoxicillin] Allergy Severe Anaphylaxis, Verified 06/13/19 19:08 seizures ciprofloxacin [From Cipro] Allergy Severe Rash/Hives, Verified 06/13/19 19:08 seizures codeine phosphate Allergy Unknown Rash/Hives Verified 06/13/19 19:08 [From Tylenol-Codeine #3] cefuroxime axetil Allergy Rash/Hives Verified 06/13/19 19:08 [From Ceftin] ketorolac [From Toradol] Allergy Rash/Hives Verified 06/13/19 19:08 latex Allergy Rash/Hives Verified 06/13/19 19:08 NSAIDS (Non-Steroidal Allergy Rash/Hives/Lip Verified 06/13/19 19:08 Anti-Inflamma Swelling Physical Examination - Vital Signs Vital Signs: Vital Signs Temp Pulse Pulse Resp BP BP Pulse Ox 06/14/19 07:00 98.4 F 94 19 120/87 94 L 06/14/19 01:02 97.8 F 106 H 18 168/75 94 L 06/13/19 21:25 95 06/13/19 20:30 97.7 F 91 16 153/91 95 06/13/19 19:00 93 18 99/77 96 06/13/19 18:00 97 18 96 06/13/19 17:00 125/95 06/13/19 16:08 98.6 F 104 H 20 148/89 97 Intake and Output 06/13/19 06/14/19 06/14/19 22:59 06:59 14:59 Intake Total 1220 Balance 1220 Intake: Amount of Fluid Infused ( 1100 ml) Intake, IV Titration 20 Amount Sodium Chloride 0.9% 1, 20 000 ml @ 20 mls/hr IV . Q24H [facility] Rx#:[id number] Oral 100 Other: Voiding Method Toilet Bedside Commode # Voids 1 1 Weight 99.79 kg Results - Laboratory Findings CBC and BMP: 06/13/19 17:03 06/13/19 17:03 Abnormal Lab Findings: Abnormal Labs 06/13/19 06/13/19 06/13/19 17:03 17:03 17:03 WBC 18.7 H Plt Count 452 H Neutrophils # 12.8 H Glucose 103 H POC Glucose (mg/dL) Total Bilirubin 0.1 L Urine Blood Small H Ur Leukocyte Esterase Moderate H Urine Mucus Rare H 06/14/19 06:54 WBC Plt Count Neutrophils # Glucose POC Glucose (mg/dL) 169 H Total Bilirubin Urine Blood Ur Leukocyte Esterase Urine Mucus
[2019-06-14] MEDS ORDERED: HYDROmorphone 0.5 MG/0.5 ML SYRINGE IVP PRN (14:00)
--- NOTE | 2019-06-14 15:18 | P.PN ---
Subjective Progress Note Date: 06/14/19 Principal diagnosis: MS flare Patient was seen and examined. No acute events overnight. Patient reports excruciating, 10 out of 10 in severity pain in the bilateral shoulders radiating to the arm. Patient describes the pain as myalgias, dull/aching/burning. Patient only gets relief with deep massage. Also reports left eye blurry vision. She also complains of urinary urgency. Requesting Ativan for anxiety. She denies any chest pain, shortness of breath or palpitations. No nausea or vomiting. No fever or chills. Objective - Vital Signs Vital signs: Vital Signs Temp 98.4 F 06/14/19 07:00 Pulse 94 06/14/19 07:00 Resp 19 06/14/19 07:00 BP 120/87 06/14/19 07:00 Pulse Ox 94 L 06/14/19 07:00 Intake & Output 06/13/19 06/14/19 06/14/19 18:59 06:59 18:59 Intake Total 1220 Balance 1220 Weight 99.79 kg Intake: Amount of Fluid Infused ( 1100 ml) Intake, IV Titration 20 Amount Sodium Chloride 0.9% 1, 20 000 ml @ 20 mls/hr IV . Q24H [facility] Rx#:[id number] Oral 100 Other: Voiding Method Bedside Commode # Voids 1 1 - Exam General: [non toxic], [no distress], [appears at stated age] Derm: [warm], [dry] Head: [atraumatic], [normocephalic], [symmetric] Eyes: [EOMI], [no lid lag], [anicteric sclera] Mouth: [no lip lesion], [mucus membranes moist] Cardiovascular: [S1S2 reg], [tachycardic], [positive DP pulse bilateral], Lungs: [CTA bilateral], [no rhonchi, no rales] , [no accessory muscle use] Abdominal: [soft], [ nontender to palpation], [no guarding], [no appreciable organomegaly] Ext: [no gross muscle atrophy], [no edema], [no contractures] Neuro: [ CN II-XI grossly intact], [no focal neuro deficits] Psych: [Alert], [oriented], [appropriate affect] - Labs CBC & Chem 7: 06/13/19 17:03 11/03/19 17:03 Labs: Abnormal Lab Results - Last 24 Hours (Table) 06/13/19 06/13/19 06/13/19 Range/Units 17:03 17:03 17:03 WBC 18.7 H (3.8-10.6) k/uL Plt Count 452 H (150-450) k/uL Neutrophils # 12.8 H (1.3-7.7) k/uL Glucose 103 H (74-99) mg/dL POC Glucose (mg/dL) (75-99) mg/dL Total Bilirubin 0.1 L (0.2-1.3) mg/dL Urine Blood Small H (Negative) Ur Leukocyte Esterase Moderate H (Negative) Urine Mucus Rare H (None) /hpf 06/14/19 Range/Units 06:54 WBC (3.8-10.6) k/uL Plt Count (150-450) k/uL Neutrophils # (1.3-7.7) k/uL Glucose (74-99) mg/dL POC Glucose (mg/dL) 169 H (75-99) mg/dL Total Bilirubin (0.2-1.3) mg/dL Urine Blood (Negative) Ur Leukocyte Esterase (Negative) Urine Mucus (None) /hpf Assessment and Plan Assessment: Assessment and plan MS flare Leukocytosis likely related to steroid therapy Urinary urgency with moderate leukocyte esterase on UA Asthma, stable Fibromyalgia Hypertension Plans: 3 days of Solu-Medrol IV as per neurology. Follow-up MRI brain, orbit and T-spine/C-spine. Pain management with Flexeril or Valium as needed. Dilaudid 0.5 mg IV every 4 hours as needed for severe pain. Patient appears to be seeking pain medications, would avoid further narcotics. Leukocytosis of 18.7. No signs of infection. Patient is afebrile. Likely due to steroid therapy. Plans: Continue to monitor. UA showing moderate leukocyte esterase with symptoms. Plans: Follow urine culture. Start Rocephin for 3 days. Plans: Albuterol neb as needed for shortness of breath and wheezing. Plans: Restart amitriptyline. Pain management as above. BP 120/87. Plans: Resume lisinopril. [Patient admitted for MS flare. Require 3 days of IV steroids. Neurology on board. She is pending clinical improvement. Showing signs of pain medication seeking behavior. Pending clinical improvement. Likely DC in 1-2 days.]
[2019-06-14] MEDS: LORazepam 2 MG/ML INJ IV PRN ×2 (16:10→20:23)
[2019-06-14 16:58] LABS: Glucose,Whole Blood 146 mg/dL (75-99)
[2019-06-14] MEDS: SODIUM CHLORIDE 0.9% 1,000 ML IV SCH (17:24)
[2019-06-14 20:23] LABS: Glucose,Whole Blood 170 mg/dL (75-99)
[2019-06-14] MEDS ORDERED: AMITRIPTYLINE HCL 50 MG TAB PO SCH (21:00)
[2019-06-15] MEDS: LORazepam 2 MG/ML INJ IV PRN ×3 (00:14→09:18)
[2019-06-15] MEDS: HYDROmorphone 0.5 MG/0.5 ML SYRINGE IVP PRN ×3 (00:15→09:18)
[2019-06-15] MEDS: oxyCODONE-APAP 5-325MG 1 EACH TAB PO PRN ×2 (03:42→09:03)
[2019-06-15] MEDS: ONDANSETRON 4 MG/2 ML VIAL IVP PRN (05:41)
[2019-06-15] MEDS: INSULIN ASPART (NovoLOG) 100 UNIT/ML VIAL SQ SCH (06:58)
[2019-06-15 07:02] LABS: Glucose,Whole Blood 201 mg/dL (75-99)
[2019-06-15] MEDS: PANTOPRAZOLE 40 MG TABLET PO SCH (07:18)
[2019-06-15 08:05] LABS: Basophils # (A) 0.1 k/uL (0-0.2); Basophils % (A) 0 %; Eosinophils # (A) 0.2 k/uL (0-0.7); Eosinophils % (A) 1 %; HCT 40.9 % (34.0-46.0); HGB 13.3 gm/dL (11.4-16.0); Lymphocytes # (A) 1.1 k/uL (1.0-4.8); Lymphocytes % (A) 4 %; MCH 28.4 pg (25.0-35.0); MCHC 32.4 g/dL (31.0-37.0); MCV 87.7 fL (80.0-100.0); Mean Platelet Volume 6.5; Monocytes # (A) 0.3 k/uL (0-1.0); Monocytes % (A) 1 %; Neutrophils # (A) 29.1 k/uL (1.3-7.7); Neutrophils % (A) 94 %; Platelet Count 468 k/uL (150-450); RBC 4.66 m/uL (3.80-5.40); RDW 13.1 % (11.5-15.5)
[2019-06-15 08:10] LABS: African American GFR (CKD) >90 (>60 ml/min/1.73 sqM); Anion Gap 11 mmol/L; Blood Urea Nitrogen 13 mg/dL (7-17); Carbon Dioxide 22 mmol/L (22-30); Chloride 106 mmol/L (98-107); Glucose 194 mg/dL (74-99); Potassium 4.4 mmol/L (3.5-5.1); Sodium 139 mmol/L (137-145)
[2019-06-15 08:11] LABS: WBC 30.9 k/uL (3.8-10.6)
[2019-06-15] MEDS ORDERED: NICOTINE 21MG/24HR PATCH TRANSDERM SCH (09:00)
[2019-06-15] MEDS ORDERED: AMITRIPTYLINE HCL 25 MG TAB PO SCH (09:00)
[2019-06-15] MEDS: DIAZEPAM 5 MG TAB PO PRN (09:03)
[2019-06-15 09:13] VITALS: BP 144/88; PULSE 109; RESP 20; TEMP 97.6
[2019-06-15] MEDS: NON FORMULARY DRUG (Dimethyl Fumarate [Tecfidera] 240 MG) PO SCH (09:55)
[2019-06-15] MEDS: HEPARIN SODIUM,PORCINE 5,000 UNIT/ML 1 ML VIAL SQ SCH (10:59)
[2019-06-15] MEDS: LISINOPRIL 10 MG TAB PO SCH (10:59)
--- NOTE | 2019-06-15 12:26 | MR ---
EXAMINATION TYPE: MR brain/orbits wo/w con DATE OF EXAM: 06/15/2019 COMPARISON: Prior brain and orbit MRI 01/28/2019 HISTORY: Lt side weakness, vision loss lt eye, MS flare up TECHNIQUE: Multiplanar, multisequence images of the brain and brainstem, orbits is performed without and with IV contrast, utilizing 10 mL intravenous Gadavist . FINDINGS: There is motion on the exam. Diffusion weighted images demonstrate no evidence of a recent infarct or other diffusion abnormality. There is no extra-axial fluid collection. There is been inte rval development of juxtacortical hyperintensity at the convexity on the left parietal lobe, axial im age 28 on inversion recovery T2-weighted sequences measuring 11 mm in transverse dimension, axial leidy ge 25 x 13 mm in AP dimension on sagittal image 18. No definite additional interval change. The ventr icular system and cisternal spaces are normal in size and appearance. The brain volume is age approp riate. Areas of encephalomalacia are stable in the occipital lobe, posterior parietal lobe on the rig ht greater than left Orbits show a stable appearance. Midline structures demonstrate normal morphology. The craniocervical junction appears within normal limits. Post contrast images demonstrate no abnormal enhancement. The dural venous sinuses appear pa tent. The visualized sinuses are clear and the globes are intact. IMPRESSION: There has been some interval development of new plaque as described in the left parietal juxtacortical white matter. There is extensive motion, artifact on the exam. No abnormal enhancement.
--- NOTE | 2019-06-15 12:43 | P.PN ---
Progress Note - Text Progress Note Date: 06/15/19 SUBJECTIVE/INTERVAL EVENTS: Per RN, patient continued to ask for dilaudid and ativan/valium together for pain. Patient also refused steroid treatment last night, patient since admission received 250mg IV of solumedrol twice. Patient decided to leave AMA today before I could see her. Spoke to the patient on the phone. Stated that she left because we had discontinued her narcotics. Tried to explain the reason for limiting narcotic use, and patient hung up. Called patient 2 more times, and patient hung up before having time to discuss the MRI brain and Vitamin D level result. PHYSICAL EXAMINATION: VITAL SIGNS: T 97.3 HR 91 RR 18 BP 163/101 O2 sat 98% on RA Patient left AMA. Was not able to examine patient. DIAGNOSTIC TESTING: Laboratory: WBC 18.7 hemoglobin 14.0 platelet 452 PT 19.8 INR 0.9 sodium 138 potassium 4.0 chloride 106 bicarb 24 BUN 11 creatinine 0.6 glucose 103 AST 18 ALT 20 troponin <0.012 urinalysis moderate leukesterase, negative nitrite. Vitamin D level low at 16.2 Imaging: MRI brain/orbit with and without contrast 06/15/2019: There has been some interval development of new plaque as described in the left parietal juxtacortical white matter. There is extensive motion, artifact and exam. No abnormal enhancement. MRI of brain/orbit with and without contrast 01/28/2019: Some progression of white matter demyelination as described. No enhancing plaque is noted. Orbits are symmetric unremarkable. Quarterly for possible remote cerebral vascular accident ASSESSMENT and PLAN: Ms. Uriarte is a 39-year-old right-handed woman with past medical history of tumefactive multiple sclerosis, hypertension, hypothyroidism, asthma, fibromyalgia, GERD, obesity, occipital neuralgia, right V1 herpes zoster, reported seizures, who presented to [facility] for worsening lower extremity weakness bilaterally and L eye blurry vision. Patient's biggest complaint at this time is pain in her bilateral lower extremity and patient requesting IV pain medication. Patient found with a dirty UA. Patient reports increase urinary frequency. UTI could be a exacerbating factor in MS patients for flare. Patient only underwent MRI orbit/brain and no C-spine/T-spine with and without contrast during this admission. MRI brain with interval development but no enhancing lesion. Vitamin D level low at 16.2. Patient should be started on Vitamin D supplement. Tried to discuss with patient but patient refused to speak with me.
--- NOTE | 2019-06-15 12:55 | P.DS ---
Providers Date of admission: 06/15/19 09:44 Expected date of discharge: 06/15/19 Attending physician: Tianna Morton MD Consults: 06/14/19 10:12 Consult Physician Routine Consulting Provider: Swetha Garrison Consult Reason/Comments: MS exacerbation Do you want consulting provider notified?: Yes Primary care physician: John Paul Jones Hospital Course: This Patient is a 39-year-old female w/PMHx of Multiple Sclerosis, Asthma, Fibromyalgia, GERD, HTN, DJD ans Seizures Disorder who presented to the ED with chief complaint of an Multiple Sclerosis flareup. pt. has h/o prior flares up of her MS, patient stated that she gets pain within her left arm, complains of her upper body weakness with some nausea and vomiting and unable to tolerate her oral medications. Patient reports that her main neurologist is down towards [place]. She has not been on recent steroids. She denies any headache. She also complains of some left eye visual loss. Complains of blurry vision within the left eye. Her eye has no drainage or significant pain to it. She was evaluated by Neurologist Dr. Garrison and MRI was recommended. Pt. was placed on low dose Dilaudid but she continued to ask for more frequent and higher doses of pain medications. She had history of seeking for narcotic pain medication. Today she refused her I/V Steroid dose stating that it never helps anyway and was demanding to increase her pain medications as the current dose was not controlling her headaches. Pt. was noted by the nurses sleeping well between the pain medication doses but when she wakes up she start c/o headaches and asking for pain medications even before its time is due. She initially c/o arm pain on arrival, which was excruciating, 10/10 and in bilateral shoulders when asked by the hospitalist yesterday and none now but her Headaches are sever and excruciating without evidence of pain on her face. This morning pt. had MRI done as recommended by Dr. Garrison and her Dilaudid was discontinued by the neurologist. As soon as she knew that her Dilaudid is being discontinued she decided to leave AMA. This database report writer went to see her and tried to educate and counsellors her re: treatment required for her multiple sclerosis flare-up but she asked if her pain medication will be resumed or not. Once reported that since the discontinuation of Dilaudid was done by her neurologist and it is in the best interest of her not to be on this medication and to try to control her pain with other non- narcotic medications, she refused to stay. She verbalized the adverse effects of her leaving AMA without complete evaluation and treatment of her multiple sclerosis flare-up, including but not limiting to further worsening of disease process and worsening disability and neurologic status and stated to send the nurse with papers so she can sign and leave against medical advise. She also used foul language towards the nurse caring for her. Patient left Against Medical Advice, despite of lot of counseling and education re: the management of her Multiple Sclerosis flareup. Health Concerns: Pt. was educated re: proper management of her medical conditions and to follow on the recommendations of her medical providers. Patient Condition at Discharge: Stable Plan - Discharge Summary Discharge Rx Participant: Yes New Discharge Prescriptions: No Action Ipratropium/Albuterol Sulfate [Combivent Respimat Inhaler] 1 puff INHALATION RT-QID PRN PRN Reason: Shortness Of Breath Albuterol Inhaler [Ventolin Hfa Inhaler] 2 puff INHALATION RT-QID PRN PRN Reason: Shortness Of Breath Albuterol Nebulized [Ventolin Nebulized] 2.5 mg INHALATION RT-QID PRN PRN Reason: Shortness Of Breath Lisinopril [Zestril] 10 mg PO DAILY Diazepam [Valium] 5 mg PO DAILY PRN PRN Reason: Anxiety Dimethyl Fumarate [Tecfidera] 240 mg PO BID Ondansetron [Zofran ODT] 4 mg PO BID PRN PRN Reason: Nausea Metaxalone [Skelaxin] 800 mg PO TID PRN PRN Reason: Muscle Pain Dextroamphetamine/Amphetamine [Adderall] 30 mg PO AC-BRKFST Amitriptyline HCl [Elavil] 75 mg PO BID SUMAtriptan SUCCINATE [Imitrex] 100 mg PO DAILY PRN PRN Reason: Migraine Headache Discharge Medication List Albuterol Inhaler [Ventolin Hfa Inhaler] 2 puff INHALATION RT-QID PRN 12/09/13 [History] Ipratropium/Albuterol Sulfate [Combivent Respimat Inhaler] 1 puff INHALATION RT- QID PRN 12/09/13 [History] Albuterol Nebulized [Ventolin Nebulized] 2.5 mg INHALATION RT-QID PRN 01/26/18 [History] Diazepam [Valium] 5 mg PO DAILY PRN 05/24/18 [History] Lisinopril [Zestril] 10 mg PO DAILY 05/24/18 [History] Dimethyl Fumarate [Tecfidera] 240 mg PO BID 09/20/18 [History] Amitriptyline HCl [Elavil] 75 mg PO BID 06/13/19 [History] Dextroamphetamine/Amphetamine [Adderall] 30 mg PO AC-BRKFST 06/13/19 [History] Metaxalone [Skelaxin] 800 mg PO TID PRN 06/13/19 [History] Ondansetron [Zofran ODT] 4 mg PO BID PRN 06/13/19 [History] SUMAtriptan SUCCINATE [Imitrex] 100 mg PO DAILY PRN 06/13/19 [History] Follow up Appointment(s)/Referral(s): Sj Fitch MD [Primary Care Provider] - 1-2 days Activity/Diet/Wound Care/Special Instructions: Patient left against medical advise. Discharge Disposition: HOME SELF-CARE
== END 2019-06-15 12:08 | disposition left against medical advice (07) | DRG 60 ==
LOC: EC 16:03 → 4SSUR 18:14 → 6PED 06-14 23:06 → OBSVTOIN 06-15 09:44
PROVIDERS: ADMIT Family Medicine; ATTEND Family Medicine
DX: G35 Multiple sclerosis (principal); E03.9 Hypothyroidism, unspecified; E66.9 Obesity, unspecified; F41.9 Anxiety disorder, unspecified; G40.909 Epilepsy, unspecified, not intractable, without status epilepticus; H54.62 Unqualified visual loss, left eye, normal vision right eye; I10 Essential (primary) hypertension; J45.909 Unspecified asthma, uncomplicated; K21.9 Gastro-esophageal reflux disease without esophagitis; M79.7 Fibromyalgia; T38.0X5A Adverse effect of glucocorticoids and synthetic analogues, initial encounter; Z79.899 Other long term (current) drug therapy; Z82.49 Family history of ischemic heart disease and other diseases of the circulatory system; Z87.01 Personal history of pneumonia (recurrent); Z87.891 Personal history of nicotine dependence; Z90.49 Acquired absence of other specified parts of digestive tract; Z91.14 Patient's other noncompliance with medication regimen; Z88.5 Allergy status to narcotic agent; Z88.8 Allergy status to other drugs, medicaments and biological substances; Z88.6 Allergy status to analgesic agent; Z88.1 Allergy status to other antibiotic agents; Z91.040 Latex allergy status; Z68.35 Body mass index [BMI] 35.0-35.9, adult
CPT/HCPCS: 36415; 70543; 70553; 80048; 80053; 81001; 82306; 83605; 83735; 84484; 85025; 85610; 85730; 87086; 94760; 96365; 96375; 99285

== ENCOUNTER 2019-08-21 10:34 | Inpatient (IN) | payer MEDICARE, OTHER ==
[2019-08-21] MEDS ORDERED: SODIUM CHLORIDE 0.9% 500 ML 500 ML IV STA (10:59)
[2019-08-21] MEDS ORDERED: ACETAMINOPHEN TAB 500 MG TAB PO STA (11:00)
[2019-08-21 11:33] LABS: ALT 22 U/L (4-34); AST 38 U/L (14-36); African American GFR (CKD) >90 (>60 ml/min/1.73 sqM); Albumin 4.3 g/dL (3.5-5.0); Alkaline Phosphatase 39 U/L (38-126); Anion Gap 9 mmol/L; Blood Urea Nitrogen 12 mg/dL (7-17); Calcium 9.4 mg/dL (8.4-10.2); Carbon Dioxide 21 mmol/L (22-30); Chloride 106 mmol/L (98-107); Glucose 97 mg/dL (74-99); Non-African American GFR(CKD) >90 (>60 ml/min/1.73 sqM); Sodium 136 mmol/L (137-145); Total Bilirubin 0.8 mg/dL (0.2-1.3); Total Protein 7.2 g/dL (6.3-8.2)
[2019-08-21] MEDS ORDERED: ONDANSETRON 4 MG/2 ML VIAL IVP STA (11:44)
[2019-08-21] MEDS: SODIUM CHLORIDE 0.9% 1,000 ML IV SCH (11:59)
[2019-08-21 12:04] LABS: Basophils # (A) 0.1 k/uL (0-0.2); Basophils % (A) 1 %; Eosinophils # (A) 0.7 k/uL (0-0.7); Eosinophils % (A) 5 %; HCT 43.8 % (34.0-46.0); HGB 14.2 gm/dL (11.4-16.0); Lymphocytes # (A) 2.1 k/uL (1.0-4.8); Lymphocytes % (A) 14 %; MCH 28.9 pg (25.0-35.0); MCHC 32.5 g/dL (31.0-37.0); MCV 89.1 fL (80.0-100.0); Mean Platelet Volume 10.6; Monocytes # (A) 0.9 k/uL (0-1.0); Monocytes % (A) 6 %; Neutrophils # (A) 11.4 k/uL (1.3-7.7); Neutrophils % (A) 74 %; Platelet Count 260 k/uL (150-450); RBC 4.91 m/uL (3.80-5.40); RDW 13.7 % (11.5-15.5); WBC 15.4 k/uL (3.8-10.6)
[2019-08-21] MEDS ORDERED: ACETAMINOPHEN TAB 325 MG TAB PO PRN (12:11)
[2019-08-21] MEDS ORDERED: NALOXONE 0.4 MG/ML 1 ML VIAL IV PRN (12:11)
--- NOTE | 2019-08-21 12:17 | ED ---
General Adult HPI - General Chief complaint: Weakness Stated complaint: Right Side Weakness Time Seen by Provider: 08/21/19 10:45 Source: patient, RN notes reviewed, old records reviewed Mode of arrival: wheelchair Limitations: no limitations - History of Present Illness Initial comments: 39-year-old female history of MS presenting with 3 days of right-sided weakness. Patient states her symptoms are typical of her MS exacerbations in the past. She was recently started on antibiotics for urinary tract infection. She continues to have dysuria. No vomiting however the patient has had nausea associated with her symptoms. She's had pain which is generalized. She states she does have pain with her normal MS exacerbations. She reports some blurry vision. No chest pain or dyspnea. No cough. No abdominal pain. - Related Data Home Medications Medication Instructions Recorded Confirmed Albuterol Inhaler [Ventolin Hfa 2 puff INHALATION RT-QID PRN 12/09/13 08/21/19 Inhaler] Ipratropium/Albuterol Sulfate 1 puff INHALATION RT-QID PRN 12/09/13 08/21/19 [Combivent Respimat Inhaler] Albuterol Nebulized [Ventolin 2.5 mg INHALATION RT-QID PRN 01/26/18 08/21/19 Nebulized] Diazepam [Valium] 5 mg PO DAILY PRN 05/24/18 08/21/19 Lisinopril [Zestril] 10 mg PO DAILY 05/24/18 08/21/19 Dimethyl Fumarate [Tecfidera] 240 mg PO BID 09/20/18 08/21/19 Amitriptyline HCl [Elavil] 75 mg PO BID 06/13/19 08/21/19 Dextroamphetamine/Amphetamine 30 mg PO AC-BRKFST 06/13/19 08/21/19 [Adderall] Metaxalone [Skelaxin] 800 mg PO TID PRN 06/13/19 08/21/19 Ondansetron [Zofran ODT] 4 mg PO BID PRN 06/13/19 08/21/19 SUMAtriptan SUCCINATE [Imitrex] 100 mg PO DAILY PRN 06/13/19 08/21/19 Nitrofurantoin Monohyd/M-Cryst 100 mg PO Q12HR 08/21/19 08/21/19 [Macrobid] Allergies Allergy/AdvReac Type Severity Reaction Status Date / Time amoxicillin [Amoxicillin] Allergy Severe Anaphylaxis, Verified 08/21/19 12:02 seizures ciprofloxacin [From Cipro] AdvReac Severe Rash/Hives, Verified 08/21/19 12:07 seizures codeine phosphate AdvReac Unknown Rash/Hives Verified 08/21/19 12:07 [From Tylenol-Codeine #3] cefuroxime axetil AdvReac Rash/Hives Verified 08/21/19 12:07 [From Ceftin] ketorolac [From Toradol] AdvReac Rash/Hives Verified 08/21/19 12:07 latex AdvReac Rash/Hives Verified 08/21/19 12:07 NSAIDS (Non-Steroidal AdvReac Rash/Hives/Lip Verified 08/21/19 12:07 Anti-Inflamma Swelling sulfamethoxazole AdvReac Itching Verified 08/21/19 12:07 [From Bactrim] trimethoprim [From Bactrim] AdvReac Itching Verified 08/21/19 12:07 Review of Systems ROS Statement: Those systems with pertinent positive or pertinent negative responses have been documented in the HPI. ROS Other: All systems not noted in ROS Statement are negative. Past Medical History Past Medical History: Asthma, Fibromyalgia, GERD/Reflux, Hypertension, Musculoskeletal Disorder, Neurologic Disorder, Pneumonia, Seizure Disorder Additional Past Medical History / Comment(s): Multiple Sclerosis, migraines, DJD, interstitial cystitis, UTI, PCOS, vit D deficiency, bilateral optic neuritis with visual problems, generalized chronic pain, numbness/tingling bilateral lower legs, tachycardia, c-diff 5-9-16, seizures from MS last one around 2016 History of Any Multi-Drug Resistant Organisms: C-DIFF Date of last positivie culture/infection: 2017 MDRO Source:: stool Past Surgical History: Cholecystectomy, Orthopedic Surgery Additional Past Surgical History / Comment(s): Lt shoulder rotator cuff repair 06/06/14, arthroscopic left knee 2000 & 2002, left shoulder reconstruction Past Anesthesia/Blood Transfusion Reactions: No Reported Reaction Additional Past Anesthesia/Blood Transfusion Reaction / Comment(s): Pt has never recieved blood. Past Psychological History: Anxiety, Depression, Depression Smoking Status: Former smoker Past Alcohol Use History: None Reported Past Drug Use History: Marijuana - Past Family History Mother Family Medical History: No Reported History Additional Family Medical History / Comment(s): mother is healthy Father Family Medical History: Hypertension General Exam Limitations: no limitations General appearance: alert, in no apparent distress Head exam: Present: atraumatic, normocephalic Eye exam: Present: normal appearance, PERRL, EOMI ENT exam: Present: normal exam Neck exam: Present: normal inspection. Absent: tenderness, meningismus Respiratory exam: Present: normal lung sounds bilaterally. Absent: respiratory distress, wheezes Cardiovascular Exam: Present: regular rate, normal rhythm GI/Abdominal exam: Present: soft. Absent: distended, tenderness, guarding Extremities exam: Present: normal inspection, normal capillary refill. Absent: pedal edema Back exam: Present: normal inspection, full ROM Neurological exam: Present: alert, oriented X3, CN II-XII intact. Absent: motor sensory deficit (Patient has 5 out of 5 strength in all 4 extremities. Decreased call center associate strength on the right.) Psychiatric exam: Present: normal affect, normal mood Skin exam: Present: warm, dry, intact. Absent: cyanosis, diaphoretic Course Vital Signs 08/21/19 10:36 Temperature 98.4 F Pulse Rate 111 H Respiratory 16 Rate Blood Pressure 122/82 O2 Sat by Pulse 95 Oximetry Medical Decision Making - Medical Decision Making 39-year-old female history of MS presenting with increased weakness for 3 days. Patient has elevated white blood cell count 15.4. Currently waiting on urinalysis that she was preceded diagnosed with UTI. She has normal electrolytes. She started on IV steroids and IV hydration. She will be admitted with neurology on consult. Case is discussed with Dr. Plata who will admit this patient. - Lab Data Result diagrams: 08/21/19 11:05 08/21/19 11:05 Lab Results 08/21/19 08/21/19 Range/Units 11:05 11:05 WBC 15.4 H (3.8-10.6) k/uL RBC 4.91 (3.80-5.40) m/uL Hgb 14.2 (11.4-16.0) gm/dL Hct 43.8 (34.0-46.0) % MCV 89.1 (80.0-100.0) fL MCH 28.9 (25.0-35.0) pg MCHC 32.5 (31.0-37.0) g/dL RDW 13.7 (11.5-15.5) % Plt Count 260 (150-450) k/uL Neutrophils % 74 % Lymphocytes % 14 % Monocytes % 6 % Eosinophils % 5 % Basophils % 1 % Neutrophils # 11.4 H (1.3-7.7) k/uL Lymphocytes # 2.1 (1.0-4.8) k/uL Monocytes # 0.9 (0-1.0) k/uL Eosinophils # 0.7 (0-0.7) k/uL Basophils # 0.1 (0-0.2) k/uL Sodium 136 L (137-145) mmol/L Potassium 5.0 (3.5-5.1) mmol/L Chloride 106 (98-107) mmol/L Carbon Dioxide 21 L (22-30) mmol/L Anion Gap 9 mmol/L BUN 12 (7-17) mg/dL Creatinine 0.60 (0.52-1.04) mg/dL Est GFR (CKD-EPI)AfAm >90 (>60 ml/min/1.73 sqM) Est GFR (CKD-EPI)NonAf >90 (>60 ml/min/1.73 sqM) Glucose 97 (74-99) mg/dL Calcium 9.4 (8.4-10.2) mg/dL Total Bilirubin 0.8 (0.2-1.3) mg/dL AST 38 H (14-36) U/L ALT 22 (4-34) U/L Alkaline Phosphatase 39 (38-126) U/L Total Protein 7.2 (6.3-8.2) g/dL Albumin 4.3 (3.5-5.0) g/dL Disposition Clinical Impression: Multiple sclerosis, Exacerbation of multiple sclerosis Disposition[facility] Condition: Stable Is patient prescribed a controlled substance at d/c from ED?: No Referrals: None,Stated [Primary Care Provider] - 1-2 days Decision to Admit Reason: Admit from EC Decision Date: 08/21/19 Decision Time: 12:17
[2019-08-21] MEDS ORDERED: HYDROmorphone 0.5 MG/0.5 ML SYRINGE IVP STA (12:32)
[2019-08-21 12:43] LABS: Appearance,Urine Cloudy (Clear); Bacteria,Urine Rare /hpf; Bilirubin,Urine Negative (Negative); Blood,Urine Small (Negative); Color,Urine Yellow; Glucose,Urine (UA) Negative (Negative); Ketones,Urine Negative (Negative); Leukocyte Esterase,Urine Small (Negative); Mucus,Urine Rare /hpf; Nitrite,Urine Negative (Negative); Protein,Urine Negative (Negative); RBC,Urine 3 /hpf (0-5); Squamous Epithelial Cell,Urine 9 /hpf (0-4); Urobilinogen,Urine <2.0 mg/dL (<2.0); WBC,Urine 1 /hpf (0-5)
--- NOTE | 2019-08-21 15:17 | P.CNNES ---
History of Present Illness Consult date: 08/21/19 Reason for Consult: MS exacerbation Chief complaint: right-sided weakness and pain History of Present Illness: The patient is a 39-year-old female with a 10 year history of multiple sclerosis. She presents to the emergency department with right-sided weakness and right visual loss. She reports that the symptoms have been intermittent for the past week. She does report being diagnosed with a urinary tract infection 3-4 days ago, at an urgent care center. She was reportedly started on Macrobid. She only took 2 or 3 doses of the medication because it was making her itchy. The patient denies calling her neurologist regarding her symptoms. She does say that she took a couple doses of a Medrol Dosepak, that she had in her house to be taken following IV steroids. She did not complete the Dosepak. She did not notice any improvement in her symptoms with just a couple doses. The patient's weakness and numbness have been intermittent for the past week however her visual loss occurred yesterday. She reports a mild pressure sensation in her right eye and it sometimes is worse with eye movements.the patient also complains of pain. She says that she always gets pain when she has a flareup of her MS. She says the pain is all over. The patient did not contact her neurologist regarding these symptoms. She most recently saw him one month ago. She says she is overdue for an MRI. Review of Systems Negative except for that noted in history of chief complaint, with the exception of no complaints of dysuria Past Medical History Past Medical History: Asthma, Fibromyalgia, GERD/Reflux, Hypertension, Musculoskeletal Disorder, Neurologic Disorder, Pneumonia, Seizure Disorder Additional Past Medical History / Comment(s): Multiple Sclerosis, migraines, DJD, interstitial cystitis, UTI, PCOS, vit D deficiency, bilateral optic neuritis with visual problems, generalized chronic pain, numbness/tingling b ilateral lower legs, tachycardia, c-diff 5-9-16, seizures from MS last one around 2016 History of Any Multi-Drug Resistant Organisms: C-DIFF Date of last positivie culture/infection: 2016 MDRO Source:: stool Past Surgical History: Cholecystectomy, Orthopedic Surgery Additional Past Surgical History / Comment(s): Lt shoulder rotator cuff repair 06/06/14, arthroscopic left knee 2000 & 2002, left shoulder reconstruction Past Anesthesia/Blood Transfusion Reactions: No Reported Reaction Additional Past Anesthesia/Blood Transfusion Reaction / Comment(s): Pt has never recieved blood. Past Psychological History: Anxiety, Depression, Depression Smoking Status: Former smoker Past Alcohol Use History: None Reported Past Drug Use History: Marijuana - Past Family History Mother Family Medical History: No Reported History Additional Family Medical History / Comment(s): mother is healthy Father Family Medical History: Hypertension Medications and Allergies Home Medications Medication Instructions Recorded Confirmed Type Albuterol Inhaler [Ventolin Hfa 2 puff INHALATION RT-QID PRN 12/09/13 08/21/19 History Inhaler] Ipratropium/Albuterol Sulfate 1 puff INHALATION RT-QID PRN 12/09/13 08/21/19 History [Combivent Respimat Inhaler] Albuterol Nebulized [Ventolin 2.5 mg INHALATION RT-QID PRN 01/26/18 08/21/19 History Nebulized] Diazepam [Valium] 5 mg PO DAILY PRN 05/24/18 08/21/19 History Lisinopril [Zestril] 10 mg PO DAILY 05/24/18 08/21/19 History Dimethyl Fumarate [Tecfidera] 240 mg PO BID 09/20/18 08/21/19 History Amitriptyline HCl [Elavil] 75 mg PO BID 06/13/19 08/21/19 History Dextroamphetamine/Amphetamine 30 mg PO AC-BRKFST 06/13/19 08/21/19 History [Adderall] Metaxalone [Skelaxin] 800 mg PO TID PRN 06/13/19 08/21/19 History Ondansetron [Zofran ODT] 4 mg PO BID PRN 06/13/19 08/21/19 History SUMAtriptan SUCCINATE [Imitrex] 100 mg PO DAILY PRN 06/13/19 08/21/19 History Nitrofurantoin Monohyd/M-Cryst 100 mg PO Q12HR 08/21/19 08/21/19 History [Macrobid] Allergies Allergy/AdvReac Type Severity Reaction Status Date / Time amoxicillin [Amoxicillin] Allergy Severe Anaphylaxis, Verified 08/21/19 12:02 seizures ciprofloxacin [From Cipro] AdvReac Severe Rash/Hives, Verified 08/21/19 12:07 seizures codeine phosphate AdvReac Unknown Rash/Hives Verified 08/21/19 12:07 [From Tylenol-Codeine #3] cefuroxime axetil AdvReac Rash/Hives Verified 08/21/19 12:07 [From Ceftin] ketorolac [From Toradol] AdvReac Rash/Hives Verified 08/21/19 12:07 latex AdvReac Rash/Hives Verified 08/21/19 12:07 NSAIDS (Non-Steroidal AdvReac Rash/Hives/Lip Verified 08/21/19 12:07 Anti-Inflamma Swelling sulfamethoxazole AdvReac Itching Verified 08/21/19 12:07 [From Bactrim] trimethoprim [From Bactrim] AdvReac Itching Verified 08/21/19 12:07 Physical Examination - Vital Signs Vital Signs: Vital Signs Temp Pulse Resp BP Pulse Ox 08/21/19 13:18 98.5 F 94 18 131/98 95 08/21/19 10:36 98.4 F 111 H 16 122/82 95 Intake and Output 08/20/19 08/21/19 08/21/19 22:59 06:59 14:59 Other: Weight 99.79 kg Gen.: The patient is resting on the gurney in the emergency department. She is in no acute distress. HEENT: Head is atraumatic, normocephalic. Fundus not visualized. There is no scleral icterus. Mucous members are moist. Heart: Regular rate and rhythm Extremities: Without edema Neurological examination Mental status: Patient is awake, alert and oriented 3. Her speech is clear. Cranial nerves: Pupils are equal, round and reactive to light. Visual field testing reveals a loss of right peripheral vision. Extraocular muscles are intact. There is no nystagmus. Facial sensations intact. There is no facial asymmetry. Hearing is grossly intact. Uvula and palate are midline. Shoulder shrug is symmetric. Tongue protrudes midline. Motor: Strength is 5/5 in the left upper and lower extremities. There is diminished strength in the right upper and lower extremity, with strength testing. Sensation: There is subjective decreased sensation in the right upper extremity. Coordination: There is no evidence of tremor. There is no evidence of weakness, with rolling of arms. Deep tendon reflexes: Diminished throughout Gait: Not assessed Results - Laboratory Findings Comments: Urinalysis is abnormal CBC and BMP: 08/21/19 11:05 08/21/19 11:05 Abnormal Lab Findings: Abnormal Labs 08/21/19 08/21/19 08/21/19 11:05 11:05 12:07 WBC 15.4 H Neutrophils # 11.4 H Sodium 136 L Carbon Dioxide 21 L AST 38 H Urine Appearance Cloudy H Urine Blood Small H Ur Leukocyte Esterase Small H Ur Squamous Epith Cells 9 H Urine Bacteria Rare H Urine Mucus Rare H Assessment and Plan Assessment: Impressions: 1. Probable exacerbation of multiple sclerosis, with symptoms of right-sided weakness and right visual loss 2. Urinary tract infection-this infection may be contributing to the patient's worsening of MS symptoms (pseudo-exacerbation) (1) Urinary tract bacterial infections Current Visit: Yes Status: Acute Code(s): N39.0 - URINARY TRACT INFECTION, SITE NOT SPECIFIED; A49.9 - BACTERIAL INFECTION, UNSPECIFIED SNOMED Code(s): 561878772 (2) Multiple sclerosis exacerbation Current Visit: Yes Status: Acute Code(s): G35 - MULTIPLE SCLEROSIS SNOMED Code(s): 535949183 Plan: Recommendations: 1. Patient should be started on antibiotics for her bladder infection 2. Patient should be started on IV Solu-Medrol 1000 mg IV piggyback daily 3 days 3. Physical therapy evaluation 4. The patient reports taking Skelaxin, at home for muscle spasms. This would provide benefit for her while in the hospital. 5. The patient questions pain control, several times. If her pain is truly part of the MS exacerbation, it should resolve with steroids Time with Patient: Greater than 30
[2019-08-21] MEDS: MORPHINE SULFATE IR 15 MG TABLET PO PRN ×3 (16:13→22:21)
[2019-08-21] MEDS ORDERED: ALBUTEROL NEBULIZED 2.5 MG/3 ML INHALATION PRN (16:32)
[2019-08-21] MEDS ORDERED: SUMAtriptan SUCCINATE 50 MG TAB PO PRN (16:32)
[2019-08-21] MEDS ORDERED: CYCLOBENZAPRINE 10 MG TAB PO PRN (16:32)
--- NOTE | 2019-08-21 16:37 | P.HPIM ---
History of Present Illness H&P Date: 08/21/19 The patient is a 39-year-old female with a PMH of multiple sclerosis (on Tecfidera), asthma, GERD, hypertension, seizure disorder, degenerative joint disease, and fibromyalgia who presented to the ED with complaints of right-sided weakness and visual disturbances. The patient notes that her symptoms initially started roughly a week ago now and worsened 3 days prior to presentation. She initially developed right hand and arm numbness, which then progressed to right- sided weakness 3 days prior. She reports that her vision worsened at around 9:30 PM yesterday, and his blurry upon right lateral gaze. She reports following with in [facility] for her MS. She reports being d iagnosed with a urinary tract infection 3-4 days ago where she was prescribed Macrobid, though she stopped taking after 3 doses due to itching. She also reports diffuse body spasms, most notably of the upper back and arms. She notes continued mild dysuria, frequency, and urgency. She denied chest pain, fever, chills, nausea, shortness of breath, or dizziness. She did endorse nausea with 2-3 episodes of vomiting over the past 3 days. She underwent an extensive evaluation in the emergency room with WBC count of 15.4, hemoglobin 14.2, platelets 260, sodium 136, potassium 5.0, chloride 106, CO2 21, BUN 12, creatinine 0.6, AST 38, and ALT 22. Review of Systems Pertinent positives and negatives as discussed in HPI, a complete review of systems was performed and all other systems are negative. Past Medical History Past Medical History: Asthma, Fibromyalgia, GERD/Reflux, Hypertension, Musculoskeletal Disorder, Neurologic Disorder, Pneumonia, Seizure Disorder Additional Past Medical History / Comment(s): Multiple Sclerosis, migraines, DJD, interstitial cystitis, UTI, PCOS, vit D deficiency, bilateral optic neuritis with visual problems, generalized chronic pain, numbness/tingling bilateral lower legs, tachycardia, c-diff 5-9-16, seizures from MS last one around 2016 History of Any Multi-Drug Resistant Organisms: C-DIFF Date of last positivie culture/infection: 2016 MDRO Source:: stool Past Surgical History: Cholecystectomy, Orthopedic Surgery Additional Past Surgical History / Comment(s): Lt shoulder rotator cuff repair 06/06/14, arthroscopic left knee 2000 & 2002, left shoulder reconstruction Past Anesthesia/Blood Transfusion Reactions: No Reported Reaction Additional Past Anesthesia/Blood Transfusion Reaction / Comment(s): Pt has never recieved blood. Past Psychological History: Anxiety, Depression, Depression Smoking Status: Former smoker Past Alcohol Use History: None Reported Past Drug Use History: Marijuana - Past Family History Mother Family Medical History: No Reported History Additional Family Medical History / Comment(s): mother is healthy Father Family Medical History: Hypertension Medications and Allergies Home Medications Medication Instructions Recorded Confirmed Type Albuterol Inhaler [Ventolin Hfa 2 puff INHALATION RT-QID PRN 12/09/13 08/21/19 History Inhaler] Ipratropium/Albuterol Sulfate 1 puff INHALATION RT-QID PRN 12/09/13 08/21/19 History [Combivent Respimat Inhaler] Albuterol Nebulized [Ventolin 2.5 mg INHALATION RT-QID PRN 01/26/18 08/21/19 History Nebulized] Diazepam [Valium] 5 mg PO DAILY PRN 05/24/18 08/21/19 History Lisinopril [Zestril] 10 mg PO DAILY 05/24/18 08/21/19 History Dimethyl Fumarate [Tecfidera] 240 mg PO BID 09/20/18 08/21/19 History Amitriptyline HCl [Elavil] 75 mg PO BID 06/13/19 08/21/19 History Dextroamphetamine/Amphetamine 30 mg PO AC-BRKFST 06/13/19 08/21/19 History [Adderall] Metaxalone [Skelaxin] 800 mg PO TID PRN 06/13/19 08/21/19 History Ondansetron [Zofran ODT] 4 mg PO BID PRN 06/13/19 08/21/19 History SUMAtriptan SUCCINATE [Imitrex] 100 mg PO DAILY PRN 06/13/19 08/21/19 History Nitrofurantoin Monohyd/M-Cryst 100 mg PO Q12HR 08/21/19 08/21/19 History [Macrobid] Allergies Allergy/AdvReac Type Severity Reaction Status Date / Time amoxicillin [Amoxicillin] Allergy Severe Anaphylaxis, Verified 08/21/19 12:02 seizures ciprofloxacin [From Cipro] AdvReac Severe Rash/Hives, Verified 08/21/19 12:07 seizures codeine phosphate AdvReac Unknown Rash/Hives Verified 08/21/19 12:07 [From Tylenol-Codeine #3] cefuroxime axetil AdvReac Rash/Hives Verified 08/21/19 12:07 [From Ceftin] ketorolac [From Toradol] AdvReac Rash/Hives Verified 08/21/19 12:07 latex AdvReac Rash/Hives Verified 08/21/19 12:07 NSAIDS (Non-Steroidal AdvReac Rash/Hives/Lip Verified 08/21/19 12:07 Anti-Inflamma Swelling sulfamethoxazole AdvReac Itching Verified 08/21/19 12:07 [From Bactrim] trimethoprim [From Bactrim] AdvReac Itching Verified 08/21/19 12:07 Physical Exam Vitals: Vital Signs Temp Pulse Pulse Resp BP BP Pulse Ox 08/21/19 14:14 98.0 F 96 20 149/94 93 L 08/21/19 13:18 98.5 F 94 18 131/98 95 08/21/19 10:36 98.4 F 111 H 16 122/82 95 Intake and Output 08/21/19 08/21/19 08/21/19 06:59 14:59 22:59 Other: # Voids 1 Weight 99.79 kg General: non toxic, no distress, appears at stated age, normal weight Derm: no unusual rashes/lesions no unusual ecchymoses, warm, dry Head: atraumatic, normocephalic, symmetric Eyes: EOMI, no lid lag, anicteric sclera, pupils equal round reactive to light ENT: Nose and ears atraumatic, no thrush, no pharyngeal erythema, no facial asymmetry Neck: No thyromegaly, no cervical lymphadenopathy, trachea midline, supple Mouth: no lip lesion, mucus membranes moist Cardiovascular: S1S2 reg, no murmur, positive posterior tibial pulse bilateral, no edema, capillary refill less than 2 seconds Lungs: CTA bilateral, no rhonchi, no rales , no accessory muscle use Abdominal: soft, nontender to palpation, no guarding, no appreciable organomegaly, normal bowel sounds Ext: no gross muscle atrophy, muscle strength 4/5 on RUE and RLE, 5/5 strength on L side, no contractures Neuro: CN II-XI grossly intact, light touch intact all 4 extremities, finger to nose within normal limits, no outstretched hand tremor Psych: Alert, oriented, appropriate affect Results CBC & Chem 7: 08/21/19 11:05 08/21/19 11:05 Labs: Abnormal Lab Results - Last 24 Hours (Table) 08/21/19 08/21/19 08/21/19 Range/Units 11:05 11:05 12:07 WBC 15.4 H (3.8-10.6) k/uL Neutrophils # 11.4 H (1.3-7.7) k/uL Sodium 136 L (137-145) mmol/L Carbon Dioxide 21 L (22-30) mmol/L AST 38 H (14-36) U/L Urine Appearance Cloudy H (Clear) Urine Blood Small H (Negative) Ur Leukocyte Esterase Small H (Negative) Ur Squamous Epith Cells 9 H (0-4) /hpf Urine Bacteria Rare H (None) /hpf Urine Mucus Rare H (None) /hpf Thrombosis Risk Factor Assmnt - Choose All That Apply Each Factor Represents 1 point: Obesity (BMI >25) Thrombosis Risk Factor Assessment Total Risk Factor Score: 1 Thrombosis Risk Factor Assessment Level: Low Risk Assessment and Plan Plan: Multiple sclerosis flare-up -Neurology recommendations appreciated -Solu-Medrol 1000 mgs daily 3 days -PT evaluation -Continue with home meds -FS with LAN -Started on Morphine PO for pain Urinary tract infection -Patient notes itching w/ Macrobid -C/w Ceftriaxone 1 g qd (patient received Ceftriaxone on previous admission without issue) -F/u Urine cultures Leukocytosis -Possibly due to UTI vs chronic intermittent steroid therapy -Monitor for now Chronic conditions: HTN, Fibromyalgia, Mild intermittent asthma -C/w home meds DVT prophylaxis -Heparin subq The patient is admitted with an anticipated greater than 2 midnight stay for evaluation of MS flare CODE STATUS: Full Code Discussed with: Patient Anticipated discharge date: 3-[address]: Home A total of 40 minutes was spent on the care of this complex patient more than 50% of the time was spent in counseling and care coordination.
[2019-08-21 17:10] LABS: Glucose,Whole Blood 144 mg/dL (75-99)
[2019-08-21] MEDS: INSULIN ASPART (NovoLOG) 100 UNIT/ML VIAL SQ SCH (17:25)
[2019-08-21] MEDS: ONDANSETRON 4 MG/2 ML VIAL IVP PRN (18:22)
[2019-08-21 20:15] LABS: Glucose,Whole Blood 213 mg/dL (75-99)
[2019-08-21] MEDS: MORPHINE SULFATE ER 15 MG TABLET PO SCH (20:42)
[2019-08-21] MEDS: Dimethyl Fumarate [Tecfidera] PO SCH (20:46)
[2019-08-21] MEDS: AMITRIPTYLINE HCL 25 MG TAB PO SCH (20:49)
[2019-08-22] MEDS: MORPHINE SULFATE IR 15 MG TABLET PO PRN ×7 (01:16→22:46)
[2019-08-22] MEDS: HEPARIN SODIUM,PORCINE 5,000 UNIT/ML 1 ML VIAL SQ SCH ×4 (01:18→16:03)
[2019-08-22] MEDS: SODIUM CHLORIDE 0.9% 1,000 ML IV SCH ×2 (04:08→16:10)
[2019-08-22] MEDS: Dimethyl Fumarate [Tecfidera] PO SCH ×2 (07:06→21:12)
[2019-08-22 07:10] LABS: Glucose,Whole Blood 190 mg/dL (75-99)
[2019-08-22] MEDS: MORPHINE SULFATE ER 15 MG TABLET PO SCH ×2 (07:10→21:11)
[2019-08-22] MEDS: ONDANSETRON 4 MG/2 ML VIAL IVP PRN ×2 (07:10→19:09)
[2019-08-22 09:02] LABS: HCT 39.3 % (34.0-46.0); HGB 12.8 gm/dL (11.4-16.0); MCH 29.6 pg (25.0-35.0); MCHC 32.5 g/dL (31.0-37.0); MCV 91.1 fL (80.0-100.0); Mean Platelet Volume 7.8; Platelet Count 452 k/uL (150-450); RBC 4.31 m/uL (3.80-5.40); RDW 13.4 % (11.5-15.5); WBC 38.6 k/uL (3.8-10.6)
[2019-08-22] MEDS: LISINOPRIL 10 MG TAB PO SCH (09:24)
[2019-08-22] MEDS: AMITRIPTYLINE HCL 25 MG TAB PO SCH ×2 (09:24→21:10)
[2019-08-22] MEDS: INSULIN ASPART (NovoLOG) 100 UNIT/ML VIAL SQ SCH ×3 (09:24→18:28)
[2019-08-22] MEDS ORDERED: DIAZEPAM 5 MG TAB PO PRN (10:53)
[2019-08-22] MEDS: methylPREDNISolone SOD SUCC 1,000 MG in SODIUM CHLORIDE 0.9% 250 ML IVPB SCH (11:00)
[2019-08-22 11:59] LABS: Glucose,Whole Blood 186 mg/dL (75-99)
[2019-08-22] MEDS: NICOTINE 21MG/24HR PATCH TRANSDERM SCH (12:22)
[2019-08-22] MEDS ORDERED: TEMAZEPAM 15 MG CAP PO PRN (15:25)
--- NOTE | 2019-08-22 16:10 | P.PN ---
Subjective Progress Note Date: 08/22/19 The patient is a 39-year-old female with a PMH of multiple sclerosis (on Tecfidera), asthma, GERD, hypertension, seizure disorder, degenerative joint disease, and fibromyalgia who presented to the ED with complaints of right-sided weakness and visual disturbances. The patient noted that her symptoms initially started roughly a week ago now and worsened 3 days prior to presentation. She initially developed right hand and arm numbness, which then progressed to right- sided weakness 3 days prior. She reported that her vision worsened at around 9:30 PM yesterday, and had blurry upon right lateral gaze. She reported following with in [facility] for her MS. She reported being diagnosed with a urinary tract infection 3-4 days ago where she was prescribed Macrobid, though she stopped taking after 3 doses due to itching. She also reported diffuse body spasms, most notably of the upper back and arms. She endorsed continued mild dysuria, frequency, and urgency. She denied chest pain, fever, chills, nausea, shortness of breath, or dizziness. She did endorse nausea with 2-3 episodes of vomiting over the past 3 days. She underwent an extensive evaluation in the emergency room with WBC count of 15.4, hemoglobin 14.2, platelets 260, sodium 136, potassium 5.0, chloride 106, CO2 21, BUN 12, creatinine 0.6, AST 38, and ALT 22. The patient was evaluated by Neurology recommended Solu-Medrol thousand milligrams for 3 days. Patient was seen and evaluated at the bedside on 08/22. She reported minimal improvement with her arm weakness or visual disturbances. She noted minimal improvement with her spasms. Objective - Vital Signs Vital signs: Vital Signs Temp 97.7 F 08/22/19 14:28 Pulse 77 08/22/19 14:28 Resp 20 08/22/19 14:28 BP 122/78 08/22/19 14:28 Pulse Ox 92 L 08/22/19 14:28 Intake & Output 08/21/19 08/22/19 08/22/19 18:59 06:59 18:59 Intake Total 1000 Balance 1000 Weight 99.79 kg Intake: Oral 1000 Other: # Voids 1 2 2 # Bowel Movements 0 # Emeses 0 - Exam General: Non-toxic, in no acute distress, appears stated age, morbidly obese HEENT: NC/AT, anicteric sclerae, moist conjunctiva, no lid-lag, PERRLA Cardiovascular: S1/S2 wnl, no murmurs, rubs, or gallops Lungs: Clear to auscultation, normal respiratory effort, no accessory muscle use Abdominal: Soft, non-tender, non-distended, no guarding, rebound, or rigidity Skin: Warm, dry Extremities: No edema or contractures Psychiatric: Alert and oriented to person, place and time, appropriate affect Neuro: CN II-XII grossly intact, Strength 4/5 on RUE and RLE, 5/5 on L side, Speech intact, Sensation to light touch grossly intact throughout - Labs CBC & Chem 7: 08/22/19 08:47 08/21/19 11:05 Labs: Abnormal Lab Results - Last 24 Hours (Table) 08/21/19 08/21/19 08/22/19 Range/Units 17:03 20:04 07:03 WBC (3.8-10.6) k/uL Plt Count (150-450) k/uL POC Glucose (mg/dL) 144 H 213 H 190 H (75-99) mg/dL 08/22/19 08/22/19 Range/Units 08:47 11:53 WBC 38.6 H (3.8-10.6) k/uL Plt Count 452 H (150-450) k/uL POC Glucose (mg/dL) 186 H (75-99) mg/dL Assessment and Plan Plan: Multiple sclerosis flare-up -Neurology recommendations appreciated -Solu-Medrol 1000 mgs daily 3 days -PT evaluation -Continue with home meds -FS with LAN -Started on Morphine PO for pain Urinary tract infection -Patient notes itching w/ Macrobid -C/w Ceftriaxone 1 g qd (patient received Ceftriaxone on previous admission without issue) -F/u Urine cultures Leukocytosis -Possibly due to UTI vs chronic intermittent steroid therapy -Monitor for now Chronic conditions: HTN, Fibromyalgia, Mild intermittent asthma -C/w home meds DVT prophylaxis -Heparin subq Discussed with: Patient Anticipated discharge date: 3-[address]: Home
--- NOTE | 2019-08-22 16:31 | P.PN ---
Subjective Progress Note Date: 08/22/19 Principal diagnosis: 1.Exacerbation of multiple sclerosis 2. Urinary tract infection The patient reports feeling as if she is doing somewhat better today. She continues to have right-sided weakness. She has not been seen by by physical therapy. The patient reports sleeping poorly last night. She says that steroids always cause her to have insomnia. She denies GI symptoms. Objective - Vital Signs Vital signs: Vital Signs Temp 97.7 F 08/22/19 14:28 Pulse 77 08/22/19 14:28 Resp 20 08/22/19 14:28 BP 122/78 08/22/19 14:28 Pulse Ox 92 L 08/22/19 14:28 Intake & Output 08/21/19 08/22/19 08/22/19 18:59 06:59 18:59 Intake Total 1000 Balance 1000 Weight 99.79 kg Intake: Oral 1000 Other: # Voids 1 2 2 # Bowel Movements 0 # Emeses 0 - Exam Gen.: The patient is reclining in the bed. She is in no acute distress. Pupils are equal round and reactive to light. Extraocular muscles are intact. There is no nystagmus. Right upper and lower extremity strength is diminished in comparison to the left. - Labs CBC & Chem 7: 08/22/19 08:47 08/21/19 11:05 Labs: Abnormal Lab Results - Last 24 Hours (Table) 08/21/19 08/21/19 08/22/19 Range/Units 17:03 20:04 07:03 WBC (3.8-10.6) k/uL Plt Count (150-450) k/uL POC Glucose (mg/dL) 144 H 213 H 190 H (75-99) mg/dL 08/22/19 08/22/19 Range/Units 08:47 11:53 WBC 38.6 H (3.8-10.6) k/uL Plt Count 452 H (150-450) k/uL POC Glucose (mg/dL) 186 H (75-99) mg/dL Assessment and Plan Assessment: Impressions: 1. Probable exacerbation of multiple sclerosis, with symptoms of right-sided weakness and right visual loss 2. Urinary tract infection-this infection may be contributing to the patient's worsening of MS symptoms (pseudo-exacerbation) (1) Urinary tract bacterial infections Current Visit: Yes Status: Acute Code(s): N39.0 - URINARY TRACT INFECTION, SITE NOT SPECIFIED; A49.9 - BACTERIAL INFECTION, UNSPECIFIED SNOMED Code(s): 057344855 (2) Multiple sclerosis exacerbation Narrative/Plan: Continue IV Solumedrol for 3 total doses Current Visit: Yes Status: Acute Code(s): G35 - MULTIPLE SCLEROSIS SNOMED Code(s): 862190201 Plan: 1. Continue Solu-Medrol for total of 3 days 2. We'll change her Valium to Restoril for sleep. Time with Patient: Less than 30 (spent 20 minutes with patient via teleneurology)
[2019-08-22 17:32] LABS: Glucose,Whole Blood 207 mg/dL (75-99)
[2019-08-22 22:30] LABS: Glucose,Whole Blood 194 mg/dL (75-99)
[2019-08-23] MEDS: HEPARIN SODIUM,PORCINE 5,000 UNIT/ML 1 ML VIAL SQ SCH ×2 (00:33→08:11)
[2019-08-23] MEDS: MORPHINE SULFATE IR 15 MG TABLET PO PRN ×4 (01:42→12:35)
[2019-08-23] MEDS: SODIUM CHLORIDE 0.9% 1,000 ML IV SCH (05:17)
[2019-08-23 07:13] LABS: Glucose,Whole Blood 115 mg/dL (75-99)
[2019-08-23] MEDS: NICOTINE 21MG/24HR PATCH TRANSDERM SCH (08:10)
[2019-08-23] MEDS: ONDANSETRON 4 MG/2 ML VIAL IVP PRN (08:10)
[2019-08-23] MEDS: AMITRIPTYLINE HCL 25 MG TAB PO SCH (08:11)
[2019-08-23] MEDS: LISINOPRIL 10 MG TAB PO SCH (08:11)
[2019-08-23] MEDS: INSULIN ASPART (NovoLOG) 100 UNIT/ML VIAL SQ SCH ×2 (08:11→12:00)
[2019-08-23] MEDS: MORPHINE SULFATE ER 15 MG TABLET PO SCH (08:11)
[2019-08-23] MEDS: Dimethyl Fumarate [Tecfidera] PO SCH (08:12)
[2019-08-23 08:46] VITALS: BP 146/84; PULSE 100; RESP 16; TEMP 98.1
[2019-08-23] MEDS: methylPREDNISolone SOD SUCC 1,000 MG in SODIUM CHLORIDE 0.9% 250 ML IVPB SCH (09:33)
--- NOTE | 2019-08-23 11:52 | P.DS ---
Providers Date of admission: 08/21/19 12:11 Expected date of discharge: 08/23/19 Attending physician: Monique Plata DO Consults: 08/21/19 12:11 Consult Physician Routine Consulting Provider: Bertha Lr Consult Reason/Comments: MS exacerbation Do you want consulting provider notified?: Yes Primary care physician: Stated None Hospital Course: The patient is a 39-year-old female with a PMH of multiple sclerosis (on Tecfidera), asthma, GERD, hypertension, seizure disorder, degenerative joint disease, and fibromyalgia who presented to the ED with complaints of right-sided weakness and visual disturbances. The patient noted that her symptoms initially started roughly a week ago now and worsened 3 days prior to presentation. She initially developed right hand and arm numbness, which then progressed to right- sided weakness 3 days prior. She reported that her vision worsened at around 9:30 PM yesterday, and had blurry upon right lateral gaze. She reported following with in [facility] for her MS. She reported being diagnosed with a urinary tract infection 3-4 days ago where she was prescribed Macrobid, though she stopped taking after 3 doses due to itching. She also reported diffuse body spasms, most notably of the upper back and arms. She endorsed continued mild dysuria, frequency, and urgency. She denied chest pain, fever, chills, nausea, shortness of breath, or dizziness. She did endorse nausea with 2-3 episodes of vomiting over the past 3 days. She underwent an extensive evaluation in the emergency room with WBC count of 15.4, hemoglobin 14.2, platelets 260, sodium 136, potassium 5.0, chloride 106, CO2 21, BUN 12, creatinine 0.6, AST 38, and ALT 22. The patient was evaluated by Neurology recommended Solu-Medrol thousand milligrams for 3 days. Patient was seen and examined. No acute events overnight. Patient reports considerable improvement in her symptoms since admission. She complains of muscle spasms but states that her weakness and visual disturbances have resolved. She denies any dysuria. She denies any chest pain, shortness of breath or palpitations. She is requesting a pain shot prior to discharge. General: [non toxic], [morbidly obese], [appears at stated age] Derm: [warm], [dry] Head: [atraumatic], [normocephalic], [symmetric] Eyes: [EOMI], [no lid lag], [anicteric sclera] Mouth: [no lip lesion], [mucus membranes moist] Cardiovascular: [S1S2 reg], [no murmur], [positive DP pulse bilateral], Lungs: [Decreased breath sounds bilateral], [no rhonchi, no rales] , [no acces gilma muscle use] Abdominal: [soft], [ nontender to palpation], [no guarding], [no appreciable organomegaly] Ext: [no gross muscle atrophy], [no edema], [no contractures] Neuro: [ CN II-XI grossly intact], [no focal neuro deficits] Psych: [Alert], [oriented], [appropriate affect] Multiple sclerosis flare-up Urinary tract infection Leukocytosis Chronic conditions: HTN, Fibromyalgia, Mild intermittent asthma Her symptoms have resolved. Completed 3 days of Solu-Medrol IV. We will transition her to Medrol Dosepak. She is completed 3 days of IV antibiotics for UTI. Urine cultures were not collected during this admission. She does have an upturning leukocytosis of 38.6. This is likely related to steroid use rather than infection. Plans to repeat CBC in 3 days. Advised patient to follow-up with PCP within 3 days and neurology within 1 week. This complex discharge took about 35 minutes to complete. Patient Condition at Discharge: Stable Plan - Discharge Summary New Discharge Prescriptions: New methylPREDNISolone [Medrol Dose Pack] 4 mg PO DIRECTED #1 pack Continue Ipratropium/Albuterol Sulfate [Combivent Respimat Inhaler] 1 puff INHALATION RT-QID PRN PRN Reason: Shortness Of Breath Albuterol Inhaler [Ventolin Hfa Inhaler] 2 puff INHALATION RT-QID PRN PRN Reason: Shortness Of Breath Albuterol Nebulized [Ventolin Nebulized] 2.5 mg INHALATION RT-QID PRN PRN Reason: Shortness Of Breath Lisinopril [Zestril] 10 mg PO DAILY Diazepam [Valium] 5 mg PO DAILY PRN PRN Reason: Anxiety Dimethyl Fumarate [Tecfidera] 240 mg PO BID Ondansetron [Zofran ODT] 4 mg PO BID PRN PRN Reason: Nausea Metaxalone [Skelaxin] 800 mg PO TID PRN PRN Reason: Muscle Pain Dextroamphetamine/Amphetamine [Adderall] 30 mg PO AC-BRKFST Amitriptyline HCl [Elavil] 75 mg PO BID SUMAtriptan SUCCINATE [Imitrex] 100 mg PO DAILY PRN PRN Reason: Migraine Headache Discontinued Nitrofurantoin Monohyd/M-Cryst [Macrobid] 100 mg PO Q12HR Discharge Medication List Albuterol Inhaler [Ventolin Hfa Inhaler] 2 puff INHALATION RT-QID PRN 12/09/13 [History] Ipratropium/Albuterol Sulfate [Combivent Respimat Inhaler] 1 puff INHALATION RT- QID PRN 12/09/13 [History] Albuterol Nebulized [Ventolin Nebulized] 2.5 mg INHALATION RT-QID PRN 01/26/18 [History] Diazepam [Valium] 5 mg PO DAILY PRN 05/24/18 [History] Lisinopril [Zestril] 10 mg PO DAILY 05/24/18 [History] Dimethyl Fumarate [Tecfidera] 240 mg PO BID 09/20/18 [History] Amitriptyline HCl [Elavil] 75 mg PO BID 06/13/19 [History] Dextroamphetamine/Amphetamine [Adderall] 30 mg PO AC-BRKFST 06/13/19 [History] Metaxalone [Skelaxin] 800 mg PO TID PRN 06/13/19 [History] Ondansetron [Zofran ODT] 4 mg PO BID PRN 06/13/19 [History] SUMAtriptan SUCCINATE [Imitrex] 100 mg PO DAILY PRN 06/13/19 [History] methylPREDNISolone [Medrol Dose Pack] 4 mg PO DIRECTED #1 pack 08/23/19 [Rx] Follow up Appointment(s)/Referral(s): None,Stated [Primary Care Provider] - 1-2 days Sj Olivares DO [REFERRING] - 1 Week Ambulatory/Diagnostic Orders: Complete Blood Count w/diff [LAB.AMB] Time Frame: 3 Days, Location: None Selected Patient Instructions/Handouts: Multiple Sclerosis (DC), Self-Care Measures with a Chronic Disease (DC) Activity/Diet/Wound Care/Special Instructions: Diet: Low-salt Activity as tolerated Follow-up PCP within 3 days of discharge. Follow-up with your neurologist within 1 week of discharge. Take all medications as advised. Repeat CBC in 3 days to be followed up with PCP. Completed 3 days of Rocephin for simple UTI, no antibiotics on discharge. Discharge Disposition: HOME SELF-CARE
== END 2019-08-23 12:54 | disposition home or self-care (01) | DRG 60 ==
LOC: EC 10:34 → 6NMEDSUR 12:11
PROVIDERS: ADMIT Internal Medicine; ATTEND Internal Medicine
DX: G35 Multiple sclerosis (principal); F32.9 Major depressive disorder, single episode, unspecified; F41.9 Anxiety disorder, unspecified; G40.909 Epilepsy, unspecified, not intractable, without status epilepticus; G47.00 Insomnia, unspecified; T38.0X5A Adverse effect of glucocorticoids and synthetic analogues, initial encounter; H54.61 Unqualified visual loss, right eye, normal vision left eye; I10 Essential (primary) hypertension; J45.20 Mild intermittent asthma, uncomplicated; M79.7 Fibromyalgia; Z79.899 Other long term (current) drug therapy; Z82.49 Family history of ischemic heart disease and other diseases of the circulatory system; Z87.891 Personal history of nicotine dependence; D72.829 Elevated white blood cell count, unspecified; Z87.440 Personal history of urinary (tract) infections; N30.10 Interstitial cystitis (chronic) without hematuria; G43.909 Migraine, unspecified, not intractable, without status migrainosus; Z88.1 Allergy status to other antibiotic agents; Z88.5 Allergy status to narcotic agent; Z88.2 Allergy status to sulfonamides; H53.8 Other visual disturbances; Z88.0 Allergy status to penicillin; Z88.8 Allergy status to other drugs, medicaments and biological substances; Z88.6 Allergy status to analgesic agent; Z91.040 Latex allergy status; E55.9 Vitamin D deficiency, unspecified; E28.2 Polycystic ovarian syndrome; Z87.01 Personal history of pneumonia (recurrent); E66.01 Morbid (severe) obesity due to excess calories; Z68.35 Body mass index [BMI] 35.0-35.9, adult
CPT/HCPCS: 36415; 80053; 81001; 85025; 85027; 94760; 96365; 96375; 99285

== ENCOUNTER → 2019-10-15 | Outpatient (CLI) | payer MEDICARE, OTHER ==
--- NOTE | 2019-10-15 12:49 | MR ---
MRI BRAIN AND CERVICAL SPINE: CLINICAL HISTORY: Multiple sclerosis TECHNIQUE: Multiplanar, multisequence imaging of the brain and cervical spine is performed without in travenous contrast as venous access was not able to be obtained. COMPARISON: MRI of the brain dated 06/15/2019. FINDINGS: Brain: T2 Lesions Present : Yes Approximate Number of Lesions: Approximately 9 on the right and 6 on the left Locations Identified : Predominantly pericallosal with few deep white matter Size of Reference Lesion(s): 1. 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 Diffusion weighted images demonstrate no evidence of a recent infarct or other diffu alberto abnormality. There is no worrisome extra-axial fluid collection. The ventricular system and ci sternal spaces are normal in size and appearance. The brain volume is age appropriate. Midline structures demonstrate normal morphology. The craniocervical junction appears within normal limits. The dural venous sinuses appear patent. The visualized sinuses demonstrate mild mucosal thi ckening of the ethmoid and right maxillary sinuses. Globes are unremarkable. A scant amount of fluid is seen within the left mastoid air cells. Cervical Spine: Sagittal images of the cervical spine show the craniocervical junction to appear within normal limits . Subtle PD hyperintense plaque is seen measuring 7 mm within the midline cervical spinal cord poste rior to the C7 vertebral body. This is marked on series 1101 image 4. The remaining cervical and uppe r thoracic spinal cord is normal in course, caliber, and signal. Vertebral alignment is anatomic. T he vertebral body heights are within normal limits. The bone marrow signal intensity is within ilan l limits. Multilevel disc desiccation is seen. There is a right paracentral disc herniation at C5-C6 and broad-based disc bulge mildly narrowing the ventral subarachnoid space without significant spinal canal stenosis. There is also resultant mild t o moderate right neural foraminal narrowing. Left neural foramen is patent. Broad-based disc bulge is present at C6-C7 without focal herniation. IMPRESSION: 1. Stable demyelinating plaques in keeping with this patient's history multiple sclerosis. No new res tricted diffusion or new plaques intracranially. 2. Stable encephalomalacia of the right occipital lobe with surrounding gliosis from remote injury. 3. Small 7 mm demyelinating plaque in the lower cervical spinal cord. 4. Right paracentral disc herniation at C5-C6 creating mild to moderate right neural foraminal narrow ing. 5. Multilevel disc desiccation of the cervical spine and broad-based disc bulge at C6-C7 without silvio iation.
== END | disposition home or self-care (01) ==
LOC: RADMRIMAIN 10:57
PROVIDERS: ATTEND Psychiatry & Neurology Vascular Neurology
DX: G93.89 Other specified disorders of brain (principal); G35 Multiple sclerosis; Z87.820 Personal history of traumatic brain injury; M48.02 Spinal stenosis, cervical region; M50.222 Other cervical disc displacement at C5-C6 level; G37.8 Other specified demyelinating diseases of central nervous system
CPT/HCPCS: 70551; 72141

== ENCOUNTER 2020-01-01 22:30 | Emergency (ER) | payer MEDICARE, OTHER ==
[2020-01-01 22:42] VITALS: TEMP 98.5
[2020-01-01] MEDS ORDERED: LIDOCAINE 1% INJ 10MG/ML (20 ML MDV) SQ ONE (23:05)
--- NOTE | 2020-01-01 23:05 | ED ---
General Adult HPI - General Chief complaint: Fall Stated complaint: Fall, Eye Laceration Time Seen by Provider: 01/01/20 22:49 Source: patient, RN notes reviewed Mode of arrival: ambulatory Limitations: no limitations - History of Present Illness Initial comments: 39-year-old female with a complicated past medical history including fibromyalgia, multiple sclerosis, migraines presents to the emergency department for a chief complaint of head injury. Patient states that she slipped in water in her kitchen and hit her head on the counter. Patient states she does believe she lost consciousness. She does not take blood thinners. Patient states she has a headache and feels dizzy and nauseous.Patient has no other complaints at this time including shortness of breath, chest pain, abdominal pain, nausea or vomiting, or visual changes. - Related Data Home Medications Medication Instructions Recorded Confirmed Albuterol Inhaler (Mhu) [Ventolin 2 puff INHALATION RT-QID PRN 12/09/13 08/21/19 Hfa Inhaler (Mhu)] Ipratropium/Albuterol Sulfate 1 puff INHALATION RT-QID PRN 12/09/13 08/21/19 [Combivent Respimat Inhaler] Albuterol Nebulized [Ventolin 2.5 mg INHALATION RT-QID PRN 01/26/18 08/21/19 Nebulized] Diazepam [Valium] 5 mg PO DAILY PRN 05/24/18 08/21/19 Lisinopril [Zestril] 10 mg PO DAILY 05/24/18 08/21/19 Dimethyl Fumarate [Tecfidera] 240 mg PO BID 09/20/18 08/21/19 Amitriptyline HCl [Elavil] 75 mg PO BID 06/13/19 08/21/19 Dextroamphetamine/Amphetamine 30 mg PO AC-BRKFST 06/13/19 08/21/19 [Adderall] Metaxalone [Skelaxin] 800 mg PO TID PRN 06/13/19 08/21/19 Ondansetron [Zofran ODT] 4 mg PO BID PRN 06/13/19 08/21/19 SUMAtriptan SUCCINATE [Imitrex] 100 mg PO DAILY PRN 06/13/19 08/21/19 Previous Rx's Medication Instructions Recorded methylPREDNISolone [Medrol Dose 4 mg PO DIRECTED #1 pack 08/23/19 Pack] Allergies Allergy/AdvReac Type Severity Reaction Status Date / Time amoxicillin [Amoxicillin] Allergy Severe Anaphylaxis, Verified 01/01/20 22:42 seizures ciprofloxacin [From Cipro] AdvReac Severe Rash/Hives, Verified 01/01/20 22:42 seizures codeine phosphate AdvReac Unknown Rash/Hives Verified 01/01/20 22:42 [From Tylenol-Codeine #3] cefuroxime axetil AdvReac Rash/Hives Verified 01/01/20 22:42 [From Ceftin] ketorolac [From Toradol] AdvReac Rash/Hives Verified 01/01/20 22:42 latex AdvReac Rash/Hives Verified 01/01/20 22:42 NSAIDS (Non-Steroidal AdvReac Rash/Hives/Lip Verified 01/01/20 22:42 Anti-Inflamma Swelling sulfamethoxazole AdvReac Itching Verified 01/01/20 22:42 [From Bactrim] trimethoprim [From Bactrim] AdvReac Itching Verified 01/01/20 22:42 Review of Systems ROS Statement: Those systems with pertinent positive or pertinent negative responses have been documented in the HPI. ROS Other: All systems not noted in ROS Statement are negative. Past Medical History Past Medical History: Asthma, Fibromyalgia, GERD/Reflux, Hypertension, Musculoskeletal Disorder, Neurologic Disorder, Pneumonia, Seizure Disorder Additional Past Medical History / Comment(s): Multiple Sclerosis, migraines, DJD, interstitial cystitis, UTI, PCOS, vit D deficiency, bilateral optic neuritis with visual problems, generalized chronic pain, numbness/tingling bilateral lower legs, tachycardia, c-diff 5-9-16, seizures from MS last one around 2016 History of Any Multi-Drug Resistant Organisms: C-DIFF Date of last positivie culture/infection: 2017 MDRO Source:: stool Past Surgical History: Cholecystectomy, Orthopedic Surgery Additional Past Surgical History / Comment(s): Lt shoulder rotator cuff repair 06/06/14, arthroscopic left knee 2000 & 2002, left shoulder reconstruction Past Anesthesia/Blood Transfusion Reactions: No Reported Reaction Additional Past Anesthesia/Blood Transfusion Reaction / Comment(s): Pt has never recieved blood. Past Psychological History: Anxiety, Depression, Depression Smoking Status: Current every day smoker Past Alcohol Use History: None Reported Past Drug Use History: Marijuana - Past Family History Mother Family Medical History: No Reported History Additional Family Medical History / Comment(s): mother is healthy Father Family Medical History: Hypertension General Exam Limitations: no limitations General appearance: alert, in no apparent distress Head exam: Absent: atraumatic (Patient has a hematoma over the eyebrow above the right eye with a 3 cm laceration.) Eye exam: Present: normal appearance, PERRL, EOMI. Absent: scleral icterus, conjunctival injection, periorbital swelling, other (Negative Chairez sign) ENT exam: Present: normal exam, normal oropharynx, mucous membranes moist, TM's normal bilaterally (Negative hemotympanum), normal external ear exam (Negative raccoon sign) Neck exam: Present: normal inspection, full ROM. Absent: tenderness, meningismus, lymphadenopathy Respiratory exam: Present: normal lung sounds bilaterally. Absent: respiratory distress, wheezes, rales, rhonchi, stridor Cardiovascular Exam: Present: regular rate, normal rhythm, normal heart sounds. Absent: systolic murmur, diastolic murmur, rubs, gallop, clicks GI/Abdominal exam: Present: soft, normal bowel sounds. Absent: distended, tenderness, guarding, rebound, rigid Neurological exam: Present: alert, oriented X3, normal gait, other (GCS 15) Expanded Patient oriented to: Present: person, place, time Speech: Present: fluid speech Cranial nerves: EOM's Intact: Normal, Tongue Deviation: Normal, Nystagmus: Normal, Facial Sensation: Normal Sensory exam: Upper Extremity Light Touch: Normal, Upper Extremity Pin Prick: Normal, Lower Extremity Light Touch: Normal, Lower Extremity Pin Prick: Normal Motor strength exam: RUE: 5, LUE: 5, RLE: 5, LLE: 5 Psychiatric exam: Present: normal affect, normal mood Course Vital Signs 01/01/20 22:40 Temperature 98.5 F Pulse Rate 103 H Respiratory 20 Rate Blood Pressure 140/86 O2 Sat by Pulse 96 Oximetry Procedures - Laceration Laceration #1 Consent Obtained: verbal consent Indication: laceration Site: face Size (cm): 3 Description: linear Depth: simple, single layer Anesthetic Used: lidocaine 1% Anesthesia Technique: local infiltration Amount (mls): 3 Pre-repair: wound explored, irrigated extensively (With saline pressure irrigation) Type of Sutures: nylon Size of Sutures: 5-0 Number of Sutures: 6 Technique: simple, interrupted Patient Tolerated Procedure: well, no complications Medical Decision Making - Medical Decision Making CT brain and C-spine shows minor degenerative disc changes at C5-C6. No fracture seen. 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 No focal neuro deficits. Laceration was repaired. She likely has concussion given headache and dizziness. Patient will be discharged home to follow up with primary care. She'll return for any worsening symptoms or Disposition Clinical Impression: Head injury Disposition: HOME SELF-CARE Condition: Good Instructions (If sedation given, give patient instructions): Concussion (ED), Laceration (ED) Additional Instructions: Please return in 5 days for suture removal. Take Tylenol for pain. Please rest as much as possible over the next several days. Follow-up with primary care. Return here for any worsening symptoms. Is patient prescribed a controlled substance at d/c from ED?: No Referrals: Raman Kellogg MD [STAFF PHYSICIAN] - 1-2 days Time of Disposition: 00:16
[2020-01-01] MEDS ORDERED: ONDANSETRON ODT 4 MG TAB PO STA (23:29)
--- NOTE | 2020-01-01 23:31 | CT ---
EXAMINATION TYPE: CT brain cspine wo con DATE OF EXAM: 01/01/2020 COMPARISON: CT brain 10/01/2018 HISTORY: Fall, Right eye laceration CT DLP: 2030.10 mGycm Automated exposure control for dose reduction was used. Ventricles have normal size. There is no mass effect nor midline shift. There is no sign of intracran ial hemorrhage. 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 Cere bellum appears normal. Sella turcica is normal. The calvarium is intact. The skull base appears intac t. There is mild straightening of the cervical spine. There is minor spurring at C5-6. Posterior element s are intact. Facet joints are intact. The prevertebral soft tissues are within normal limits. There is some anterior subluxation of the temporomandibular joints. IMPRESSION: Minor degenerative disc changes at C5-6. No fracture seen in the cervical spine. 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 No acute intracranial a bnormality.
[2020-01-01] MEDS ORDERED: ACETAMINOPHEN TAB 500 MG TAB PO STA (23:46)
[2020-01-01] MEDS ORDERED: HYDROcodone/APAP 5-325MG 1 EACH TAB PO STA (23:46)
[2020-01-02 00:33] VITALS: BP 140/83; PULSE 92; RESP 18
== END 2020-01-02 00:35 | disposition home or self-care (01) ==
LOC: EC 22:30
DX: S01.111A Laceration without foreign body of right eyelid and periocular area, initial encounter (principal); M50.322 Other cervical disc degeneration at C5-C6 level; K13.29 Other disturbances of oral epithelium, including tongue; S09.90XA Unspecified injury of head, initial encounter; G35 Multiple sclerosis; F17.200 Nicotine dependence, unspecified, uncomplicated; F41.9 Anxiety disorder, unspecified; F32.9 Major depressive disorder, single episode, unspecified; Z79.51 Long term (current) use of inhaled steroids; Z79.899 Other long term (current) drug therapy; Z88.1 Allergy status to other antibiotic agents; Z88.2 Allergy status to sulfonamides; Z88.6 Allergy status to analgesic agent; Z91.040 Latex allergy status; Z88.5 Allergy status to narcotic agent; Z88.0 Allergy status to penicillin; J45.909 Unspecified asthma, uncomplicated; Z98.890 Other specified postprocedural states; W01.198A Fall on same level from slipping, tripping and stumbling with subsequent striking against other object, initial encounter; Y92.000 Kitchen of unspecified non-institutional (private) residence as the place of occurrence of the external cause
CPT/HCPCS: 72125; 70450; 12013; 99283; J2001

== ENCOUNTER 2020-03-04 15:51 | Observation (INO) | payer MEDICARE, OTHER ==
[2020-03-04] MEDS ORDERED: SODIUM CHLORIDE 0.9% 1,000 ML IV STA (16:30)
[2020-03-04] MEDS ORDERED: methylPREDNISolone SOD SUCCI 125 MG/2 ML VIAL IV STA (16:30)
[2020-03-04] MEDS ORDERED: HYDROmorphone 0.5 MG/0.5 ML SYRINGE IVP STA (16:41)
--- NOTE | 2020-03-04 16:41 | ED ---
General Adult HPI - General Chief complaint: Weakness Stated complaint: MS flare up Time Seen by Provider: 03/04/20 16:13 Source: patient, RN notes reviewed Mode of arrival: wheelchair Limitations: no limitations - History of Present Illness Initial comments: 40-year-old female with a past medical history of asthma, fibromyalgia , GERD, hypertension, multiple sclerosis with multiple admissions, chronic pain presents to the emergency room for a chief complaint of generalized pain. Patient states she has pain all over. Pain in her legs and arms. Patient states she also feels she is having an MS exacerbation. States her right leg feels weak which is consistent with previous exacerbations. Patient states she tried to call her doctor yesterday but could not get through to them. Patient states she felt as if she might fall at home because of this weakness.Patient has no other complaints at this time including shortness of breath, chest pain, abdominal pain, nausea or vomiting, headache, or visual changes. - Related Data Home Medications Medication Instructions Recorded Confirmed Ipratropium/Albuterol Sulfate 2 puff INHALATION RT-QID PRN 12/09/13 03/04/20 [Combivent Respimat Inhaler] Diazepam [Valium] 5 mg PO DAILY PRN 05/24/18 03/04/20 lisinopriL [Zestril] 10 mg PO DAILY 05/24/18 03/04/20 Dimethyl Fumarate [Tecfidera] 240 mg PO BID 09/20/18 03/04/20 Amitriptyline HCl [Elavil] 75 mg PO BID 06/13/19 03/04/20 Dextroamphetamine/Amphetamine 30 mg PO AC-BRKFST 06/13/19 03/04/20 [Adderall] Metaxalone [Skelaxin] 800 mg PO TID PRN 06/13/19 03/04/20 Ondansetron [Zofran ODT] 4 mg PO TID PRN 06/13/19 03/04/20 Albuterol Inhaler [Ventolin Hfa 2 puff INHALATION RT-DAILY PRN 03/04/20 03/04/20 Inhaler] Ipratropium-Albuterol Nebulize 1 vial INHALATION RT-DAILY PRN 03/04/20 03/04/20 [Duoneb 0.5 mg-3 mg/3 ml Soln] oxyCODONE-APAP 10-325MG [Percocet 1 tab PO BID PRN 03/04/20 03/04/20 10-325 mg] Allergies Allergy/AdvReac Type Severity Reaction Status Date / Time amoxicillin [Amoxicillin] Allergy Severe Anaphylaxis, Verified 03/04/20 16:08 seizures ciprofloxacin [From Cipro] AdvReac Severe Rash/Hives, Verified 03/04/20 16:08 seizures codeine phosphate AdvReac Unknown Rash/Hives Verified 03/04/20 16:08 [From Tylenol-Codeine #3] cefuroxime axetil AdvReac Rash/Hives Verified 03/04/20 16:08 [From Ceftin] ketorolac [From Toradol] AdvReac Rash/Hives Verified 03/04/20 16:08 latex AdvReac Rash/Hives Verified 03/04/20 16:08 NSAIDS (Non-Steroidal AdvReac Rash/Hives/Lip Verified 03/04/20 16:08 Anti-Inflamma Swelling sulfamethoxazole AdvReac Itching Verified 03/04/20 16:08 [From Bactrim] trimethoprim [From Bactrim] AdvReac Itching Verified 03/04/20 16:08 Review of Systems ROS Statement: Those systems with pertinent positive or pertinent negative responses have been documented in the HPI. ROS Other: All systems not noted in ROS Statement are negative. Past Medical History Past Medical History: Asthma, Fibromyalgia, GERD/Reflux, Hypertension, Musculoskeletal Disorder, Neurologic Disorder, Pneumonia, Seizure Disorder Additional Past Medical History / Comment(s): Multiple Sclerosis, migraines, DJD, interstitial cystitis, UTI, PCOS, vit D deficiency, bilateral optic neuritis with visual problems, generalized chronic pain, numbness/tingling bilateral lower legs, tachycardia, c-diff 5-9-16, seizures from MS last one around 2017 History of Any Multi-Drug Resistant Organisms: C-DIFF Date of last positivie culture/infection: 2017 MDRO Source:: stool Past Surgical History: Cholecystectomy, Orthopedic Surgery Additional Past Surgical History / Comment(s): Lt shoulder rotator cuff repair 06/06/14, arthroscopic left knee 2000 & 2002, left shoulder reconstruction Past Anesthesia/Blood Transfusion Reactions: No Reported Reaction Additional Past Anesthesia/Blood Transfusion Reaction / Comment(s): Pt has never recieved blood. Past Psychological History: Anxiety, Depression, Depression Smoking Status: Never smoker Past Alcohol Use History: None Reported Past Drug Use History: Marijuana - Past Family History Mother Family Medical History: No Reported History Additional Family Medical History / Comment(s): mother is healthy Father Family Medical History: Hypertension General Exam Limitations: no limitations General appearance: alert, in no apparent distress Head exam: Present: atraumatic, normocephalic, normal inspection Eye exam: Present: normal appearance, PERRL, EOMI. Absent: scleral icterus, conjunctival injection, periorbital swelling ENT exam: Present: normal exam, mucous membranes moist Neck exam: Present: normal inspection, full ROM. Absent: tenderness, meningi smus, lymphadenopathy Respiratory exam: Present: normal lung sounds bilaterally. Absent: respiratory distress, wheezes, rales, rhonchi, stridor Cardiovascular Exam: Present: regular rate, normal rhythm, normal heart sounds. Absent: systolic murmur, diastolic murmur, rubs, gallop, clicks GI/Abdominal exam: Present: soft, normal bowel sounds. Absent: distended, tenderness, guarding, rebound, rigid Neurological exam: Present: alert Course Vital Signs 03/04/20 03/04/20 16:06 18:35 Temperature 98.7 F Pulse Rate 92 84 Respiratory 18 20 Rate Blood Pressure 133/84 114/83 O2 Sat by Pulse 98 96 Oximetry Medical Decision Making - Medical Decision Making Vitals are stable. CBC does show leukocytosis which patient has a history of. Patient states she was told by hematology this is a reactive leukocytosis. Urinalysis unremarkable. Attempted and the patient and she is unable to actively due to weakness. This weakness is consistent with previous MS exacerbations. Patient was given solumedrol, zofran, reglan, IV benadryl, dilaudid, here in the emergency department and will be admitted for further management. - Lab Data Result diagrams: 03/04/20 16:57 03/04/20 16:57 Lab Results 03/04/20 03/04/20 03/04/20 Range/Units 16:57 16:57 17:17 WBC 18.6 H (3.8-10.6) k/uL RBC 4.71 (3.80-5.40) m/uL Hgb 13.5 (11.4-16.0) gm/dL Hct 41.4 (34.0-46.0) % MCV 87.9 (80.0-100.0) fL MCH 28.7 (25.0-35.0) pg MCHC 32.7 (31.0-37.0) g/dL RDW 13.0 (11.5-15.5) % Plt Count 441 (150-450) k/uL Neutrophils % 73 % Lymphocytes % 18 % Monocytes % 4 % Eosinophils % 5 % Basophils % 0 % Neutrophils # 13.5 H (1.3-7.7) k/uL Lymphocytes # 3.4 (1.0-4.8) k/uL Monocytes # 0.6 (0-1.0) k/uL Eosinophils # 0.8 H (0-0.7) k/uL Basophils # 0.1 (0-0.2) k/uL Sodium 136 L (137-145) mmol/L Potassium 4.6 (3.5-5.1) mmol/L Chloride 106 (98-107) mmol/L Carbon Dioxide 23 (22-30) mmol/L Anion Gap 7 mmol/L BUN 12 (7-17) mg/dL Creatinine 0.61 (0.52-1.04) mg/dL Est GFR (CKD-EPI)AfAm >90 (>60 ml/min/1.73 sqM) Est GFR (CKD-EPI)NonAf >90 (>60 ml/min/1.73 sqM) Glucose 84 (74-99) mg/dL Calcium 9.5 (8.4-10.2) mg/dL Total Bilirubin 0.4 (0.2-1.3) mg/dL AST 27 (14-36) U/L ALT 20 (4-34) U/L Alkaline Phosphatase 44 (38-126) U/L Total Protein 6.5 (6.3-8.2) g/dL Albumin 4.1 (3.5-5.0) g/dL Urine Color Yellow Urine Appearance Cloudy H (Clear) Urine pH 5.0 (5.0-8.0) Ur Specific Channing 1.021 (1.001-1.035) Urine Protein Negative (Negative) Urine Glucose (UA) Negative (Negative) Urine Ketones Negative (Negative) Urine Blood Small H (Negative) Urine Nitrite Negative (Negative) Urine Bilirubin Negative (Negative) Urine Urobilinogen <2.0 (<2.0) mg/dL Ur Leukocyte Esterase Moderate H (Negative) Urine RBC 1 (0-5) /hpf Urine WBC 2 (0-5) /hpf Ur Squamous Epith Cells 13 H (0-4) /hpf Urine Bacteria Rare H (None) /hpf Hyaline Casts 1 (0-2) /lpf Urine Mucus Rare H (None) /hpf Urine HCG, Qual (Not Detectd) 03/04/20 Range/Units 17:17 WBC (3.8-10.6) k/uL RBC (3.80-5.40) m/uL Hgb (11.4-16.0) gm/dL Hct (34.0-46.0) % MCV (80.0-100.0) fL MCH (25.0-35.0) pg MCHC (31.0-37.0) g/dL RDW (11.5-15.5) % Plt Count (150-450) k/uL Neutrophils % % Lymphocytes % % Monocytes % % Eosinophils % % Basophils % % Neutrophils # (1.3-7.7) k/uL Lymphocytes # (1.0-4.8) k/uL Monocytes # (0-1.0) k/uL Eosinophils # (0-0.7) k/uL Basophils # (0-0.2) k/uL Sodium (137-145) mmol/L Potassium (3.5-5.1) mmol/L Chloride (98-107) mmol/L Carbon Dioxide (22-30) mmol/L Anion Gap mmol/L BUN (7-17) mg/dL Creatinine (0.52-1.04) mg/dL Est GFR (CKD-EPI)AfAm (>60 ml/min/1.73 sqM) Est GFR (CKD-EPI)NonAf (>60 ml/min/1.73 sqM) Glucose (74-99) mg/dL Calcium (8.4-10.2) mg/dL Total Bilirubin (0.2-1.3) mg/dL AST (14-36) U/L ALT (4-34) U/L Alkaline Phosphatase (38-126) U/L Total Protein (6.3-8.2) g/dL Albumin (3.5-5.0) g/dL Urine Color Urine Appearance (Clear) Urine pH (5.0-8.0) Ur Specific Channing (1.001-1.035) Urine Protein (Negative) Urine Glucose (UA) (Negative) Urine Ketones (Negative) Urine Blood (Negative) Urine Nitrite (Negative) Urine Bilirubin (Negative) Urine Urobilinogen (<2.0) mg/dL Ur Leukocyte Esterase (Negative) Urine RBC (0-5) /hpf Urine WBC (0-5) /hpf Ur Squamous Epith Cells (0-4) /hpf Urine Bacteria (None) /hpf Hyaline Casts (0-2) /lpf Urine Mucus (None) /hpf Urine HCG, Qual Not Detected (Not Detectd) Disposition Clinical Impression: Weakness, Leukocytosis, Multiple sclerosis Disposition: ADMITTED IP TO THIS HOSP Condition: Fair Is patient prescribed a controlled substance at d/c from ED?: No Time of Disposition: 17:56
[2020-03-04] MEDS ORDERED: ONDANSETRON 4 MG/2 ML VIAL IVP STA (16:48)
[2020-03-04 17:07] LABS: Basophils # (A) 0.1 k/uL (0-0.2); Basophils % (A) 0 %; Eosinophils # (A) 0.8 k/uL (0-0.7); Eosinophils % (A) 5 %; HCT 41.4 % (34.0-46.0); HGB 13.5 gm/dL (11.4-16.0); Lymphocytes # (A) 3.4 k/uL (1.0-4.8); Lymphocytes % (A) 18 %; MCH 28.7 pg (25.0-35.0); MCHC 32.7 g/dL (31.0-37.0); MCV 87.9 fL (80.0-100.0); Monocytes # (A) 0.6 k/uL (0-1.0); Monocytes % (A) 4 %; Neutrophils # (A) 13.5 k/uL (1.3-7.7); Neutrophils % (A) 73 %; Platelet Count 441 k/uL (150-450); RBC 4.71 m/uL (3.80-5.40); WBC 18.6 k/uL (3.8-10.6)
[2020-03-04 17:19] LABS: ALT 20 U/L (4-34); AST 27 U/L (14-36); African American GFR (CKD) >90 (>60 ml/min/1.73 sqM); Albumin 4.1 g/dL (3.5-5.0); Alkaline Phosphatase 44 U/L (38-126); Anion Gap 7 mmol/L; Blood Urea Nitrogen 12 mg/dL (7-17); Calcium 9.5 mg/dL (8.4-10.2); Carbon Dioxide 23 mmol/L (22-30); Chloride 106 mmol/L (98-107); Glucose 84 mg/dL (74-99); Non-African American GFR(CKD) >90 (>60 ml/min/1.73 sqM); Sodium 136 mmol/L (137-145); Total Bilirubin 0.4 mg/dL (0.2-1.3); Total Protein 6.5 g/dL (6.3-8.2)
[2020-03-04 17:20] LABS: Potassium 4.6 mmol/L (3.5-5.1)
[2020-03-04 17:38] LABS: Appearance,Urine Cloudy (Clear); Bacteria,Urine Rare /hpf; Bilirubin,Urine Negative (Negative); Blood,Urine Small (Negative); Color,Urine Yellow; Glucose,Urine (UA) Negative (Negative); Hyaline Casts,Urine 1 /lpf (0-2); Ketones,Urine Negative (Negative); Leukocyte Esterase,Urine Moderate (Negative); Mucus,Urine Rare /hpf; Nitrite,Urine Negative (Negative); Protein,Urine Negative (Negative); RBC,Urine 1 /hpf (0-5); Specific Gravity,Urine 1.021 (1.001-1.035); Squamous Epithelial Cell,Urine 13 /hpf (0-4); Urobilinogen,Urine <2.0 mg/dL (<2.0); WBC,Urine 2 /hpf (0-5)
[2020-03-04] MEDS ORDERED: NALOXONE 0.4 MG/ML 1 ML VIAL IV PRN (17:56)
[2020-03-04] MEDS ORDERED: ACETAMINOPHEN TAB 325 MG TAB PO PRN (17:56)
[2020-03-04] MEDS ORDERED: METOCLOPRAMIDE 5 MG/ML 2 ML VIAL IVP STA (17:58)
[2020-03-04] MEDS ORDERED: diphenhydrAMINE 50 MG/ML 1 ML VIAL IVP STA (17:58)
[2020-03-04] MEDS ORDERED: METOCLOPRAMIDE 5 MG/ML 2 ML VIAL IVP PRN (19:29)
[2020-03-04] MEDS ORDERED: IPRATROPIUM INHALATION PRN (21:44)
[2020-03-04] MEDS ORDERED: IPRATROPIUM-ALBUTEROL 3 ML NEB INHALATION PRN (21:44)
[2020-03-04] MEDS ORDERED: ALBUTEROL SULFATE INHALATION PRN (21:44)
[2020-03-04] MEDS ORDERED: ALBUTEROL NEBULIZED 2.5 MG/3 ML INHALATION PRN (21:44)
[2020-03-04] MEDS: HYDROmorphone 1 MG/ML 1 ML SYRINGE IVP PRN (22:35)
[2020-03-04] MEDS: AMITRIPTYLINE HCL 25 MG TAB PO SCH (22:41)
[2020-03-04] MEDS: NON FORMULARY DRUG (Dimethyl Fumarate [Tecfidera] 240 MG) PO SCH (22:42)
[2020-03-04] MEDS: diazePAM 5 MG TAB PO PRN (22:44)
[2020-03-05] MEDS: oxyCODONE-APAP 10-325MG 1 EACH TAB PO PRN ×3 (00:53→16:05)
[2020-03-05] MEDS: ONDANSETRON 4 MG/2 ML VIAL IVP PRN ×3 (01:04→17:36)
[2020-03-05] MEDS: SODIUM CHLORIDE 0.9% 1,000 ML IV SCH ×4 (01:54→20:49)
[2020-03-05] MEDS: HYDROmorphone 1 MG/ML 1 ML SYRINGE IVP PRN ×5 (04:02→21:47)
[2020-03-05] MEDS: AMITRIPTYLINE HCL 25 MG TAB PO SCH ×2 (07:47→20:42)
[2020-03-05] MEDS: lisinopriL 10 MG TAB PO SCH (07:48)
[2020-03-05] MEDS: NON FORMULARY DRUG (Dimethyl Fumarate [Tecfidera] 240 MG) PO SCH ×2 (07:50→20:44)
[2020-03-05] MEDS: NON FORMULARY DRUG (Dextroamphetamine/Amphetamine [Adderall] 30 MG) PO SCH (07:50)
[2020-03-05] MEDS ORDERED: diazePAM 5 MG TAB PO PRN (09:00)
[2020-03-05] MEDS ORDERED: methylPREDNISolone SOD SUCC 1,000 MG in SODIUM CHLORIDE 0.9% 250 ML IVPB STA (15:05)
--- NOTE | 2020-03-05 17:23 | P.CNNES ---
History of Present Illness Consult date: 03/05/20 Reason for Consult: exacerbation of multiple sclerosis Chief complaint: right leg weakness and pain secondary to exacerbation of multiple sclerosis History of Present Illness: The patient is a 40-year-old female who is seen in neurologic consultation on March 05, 2020, via teleneurology. The patient reports that she is experiencing right-sided weakness, right foot numbness, blurred vision of her right thigh and "a lot of pain". She states that her symptoms began approximately 2-1/2 days ago. Patient denies difficulty swallowing. She denies difficulty with speech. Patient reportedly has carried a diagnosis of multiple sclerosis for the past 12 years. She reports that her most recent exacerbation was approximately 4 months ago. She has lowered her dose of her MS preventative medication, because of GI side effects. Although she lowered the dose, she notices no change in the overall side effect profile. Patient reports not having seen her neurologist or the nurse practitioner since prior to the onset of the pandemic. She says she is due for an MRI. Patient reports falling in her kitchen, at home, a couple months ago. She reportedly lost her balance and fell, hitting her head. She suffered a laceration of her right forehead, below the eyebrow. This laceration required sutures. The patient denies dysuria and urinary frequency. She does report noticing recently, that her urine is very strong smelling Past Medical History Past Medical History: Asthma, Fibromyalgia, GERD/Reflux, Hypertension, Musculoskeletal Disorder, Neurologic Disorder, Pneumonia, Seizure Disorder Additional Past Medical History / Comment(s): Multiple Sclerosis, migraines, DJD, interstitial cystitis, UTI, PCOS, vit D deficiency, bilateral optic neuritis with visual problems, generalized chronic pain, numbness/tingling bilateral lower legs, tachycardia, c-diff 5-9-16, seizures from MS last one around 2016, morbid obesity History of Any Multi-Drug Resistant Organisms: C-DIFF Date of last positivie culture/infection: 2016 MDRO Source:: stool Past Surgical History: Cholecystectomy, Orthopedic Surgery Additional Past Surgical History / Comment(s): Lt shoulder rotator cuff repair 06/06/14, arthroscopic left knee 2000 & 2002, left shoulder reconstruction Past Anesthesia/Blood Transfusion Reactions: No Reported Reaction Additional Past Anesthesia/Blood Transfusion Reaction / Comment(s): Pt has never recieved blood. Past Psychological History: Anxiety, Depression, Depression Smoking Status: Never smoker Past Alcohol Use History: None Reported Past Drug Use History: Marijuana - Past Family History Mother Family Medical History: No Reported History Additional Family Medical History / Comment(s): mother is healthy Father Family Medical History: Hypertension Medications and Allergies Home Medications Medication Instructions Recorded Confirmed Type Ipratropium/Albuterol Sulfate 2 puff INHALATION RT-QID PRN 12/09/13 03/04/20 History [Combivent Respimat Inhaler] Diazepam [Valium] 5 mg PO DAILY PRN 05/24/18 03/04/20 History lisinopriL [Zestril] 10 mg PO DAILY 05/24/18 03/04/20 History Dimethyl Fumarate [Tecfidera] 240 mg PO BID 09/20/18 03/04/20 History Amitriptyline HCl [Elavil] 75 mg PO BID 06/13/19 03/04/20 History Dextroamphetamine/Amphetamine 30 mg PO AC-BRKFST 06/13/19 03/04/20 History [Adderall] Metaxalone [Skelaxin] 800 mg PO TID PRN 06/13/19 03/04/20 History Ondansetron [Zofran ODT] 4 mg PO TID PRN 06/13/19 03/04/20 History Albuterol Inhaler [Ventolin Hfa 2 puff INHALATION RT-DAILY PRN 03/04/20 03/04/20 History Inhaler] Ipratropium-Albuterol Nebulize 1 vial INHALATION RT-DAILY PRN 03/04/20 03/04/20 History [Duoneb 0.5 mg-3 mg/3 ml Soln] oxyCODONE-APAP 10-325MG [Percocet 1 tab PO BID PRN 03/04/20 03/04/20 History 10-325 mg] Allergies Allergy/AdvReac Type Severity Reaction Status Date / Time amoxicillin [Amoxicillin] Allergy Severe Anaphylaxis, Verified 03/04/20 16:08 seizures ciprofloxacin [From Cipro] AdvReac Severe Rash/Hives, Verified 03/04/20 16:08 seizures codeine phosphate AdvReac Unknown Rash/Hives Verified 03/04/20 16:08 [From Tylenol-Codeine #3] cefuroxime axetil AdvReac Rash/Hives Verified 03/04/20 16:08 [From Ceftin] ketorolac [From Toradol] AdvReac Rash/Hives Verified 03/04/20 16:08 latex AdvReac Rash/Hives Verified 03/04/20 16:08 NSAIDS (Non-Steroidal AdvReac Rash/Hives/Lip Verified 03/04/20 16:08 Anti-Inflamma Swelling sulfamethoxazole AdvReac Itching Verified 03/04/20 16:08 [From Bactrim] trimethoprim [From Bactrim] AdvReac Itching Verified 03/04/20 16:08 Physical Examination - Vital Signs Vital Signs: Vital Signs Temp Pulse Pulse Pulse Resp BP BP 03/05/20 12:55 97.7 F 90 22 114/67 03/05/20 00:00 18 03/04/20 20:00 97.4 F L 73 18 133/84 03/04/20 18:35 84 20 114/83 Pulse Ox 03/05/20 12:55 97 03/05/20 00:00 03/04/20 20:00 97 03/04/20 18:35 96 Intake and Output 03/05/20 03/05/20 03/05/20 06:59 14:59 22:59 Intake Total 800 800 Balance 800 800 Intake: Intake, IV Titration 800 800 Amount Sodium Chloride 0.9% 1, 800 800 000 ml @ 100 mls/hr IV . Q10H [facility] Rx#:[id number] Other: Voiding Method Toilet Toilet Bedside Commode Bedside Commode # Voids 1 1 # Bowel Movements 0 1 Gen: The patient is reclining in the bed she is in no acute distress. She is morbidly obese. HEENT: Head is normocephalic. There is evidence of a well-healed scar below the right eyebrow. Fundus not visualized. There is no scleral icterus. Mucous membranes are moist. Neck: Supple without carotid bruits Heart: Regular rate and rhythm Extremities: Without edema Neurological examination Mental status: The patient is awake, alert and oriented 3. Her speech is clear. There is no dysarthria or aphasia. Cranial nerves: Pupils are equal, round and reactive to light. Visual pacheco are full to confrontation. Extraocular movements are intact. There is no nystagmus. Facial sensation is intact. There is no facial asymmetry. Hearing is grossly intact. Uvula and palate are midline. Shoulder shrug is symmetric. Tongue protrudes midline. Motor: Strength in the bilateral upper extremities is 5/5. Right lower extremity strength 4/5. Left lower extremity strength 5/5. Sensation: Patient reports absent light touch sensation to the right lower extremity, otherwise sensation is intact. Coordination: Finger to nose testing is intact. Rapid alternating movements are intact. [id number] testing is intact bilaterally. Deep tendon reflexes: 1-2+/4+ in the bilateral upper extremities. 2-3+/4+ at the knees. Results - Laboratory Findings CBC and BMP: 03/04/20 16:57 03/04/20 16:57 Abnormal Lab Findings: Abnormal Labs 03/04/20 03/04/20 03/04/20 16:57 16:57 17:17 WBC 18.6 H Neutrophils # 13.5 H Eosinophils # 0.8 H Sodium 136 L Urine Appearance Cloudy H Urine Blood Small H Ur Leukocyte Esterase Moderate H Ur Squamous Epith Cells 13 H Urine Bacteria Rare H Urine Mucus Rare H Assessment and Plan Assessment: 1. Exacerbation of multiple sclerosis 2. Urinalysis reveals moderate leukocyte esterase,? Urinary tract infection Plan: 1. IV Solu-Medrol 1 g daily 3 days 2. Physical therapy evaluation and treat 3. MRI of the brain 4. Repeat urinalysis with culture Thank you for allowing me to participate in the care of this patient Time with Patient: Greater than 30 (45 minutes spent with patient via teleneurology)
[2020-03-05 19:41] LABS: Appearance,Urine Clear (Clear); Bilirubin,Urine Negative (Negative); Blood,Urine Small (Negative); Color,Urine Light Yellow; Glucose,Urine (UA) Negative (Negative); Ketones,Urine Negative (Negative); Leukocyte Esterase,Urine Small (Negative); Mucus,Urine Rare /hpf; Nitrite,Urine Negative (Negative); PH, Urine 5.5 (5.0-8.0); Protein,Urine Negative (Negative); RBC,Urine 2 /hpf (0-5); Specific Gravity,Urine 1.013 (1.001-1.035); Squamous Epithelial Cell,Urine 5 /hpf (0-4); Urobilinogen,Urine <2.0 mg/dL (<2.0); WBC,Urine 2 /hpf (0-5)
[2020-03-05] MEDS: diazePAM 5 MG TAB PO PRN (20:42)
--- NOTE | 2020-03-05 22:58 | P.HPIM ---
History of Present Illness H&P Date: 03/05/20 Chief Complaint: Rt sided weakness and pain Patient is a 40-year-old female with a known history of asthma/fibromyalgia, history of multiple sclerosis, seizure disorder, DJD, migraine headaches, PCOS and chronic pain came to ER with complaints of right-sided weakness and blurry vision in the right eye for the past few days. Patient also complaining pain in her both legs and arms. Patient states that she feels like she is having MS exacerbation again and is also complaining of right leg weakness versus consistent with her previous exacerbation. Patient states that she felt like she might fall at home due to her weakness. Patient states that she was nauseous. Patient had headache mainly in the frontal region and towards the right eye. Denied any complaints of abdominal pain. No diarrhea or dysuria. No cough or sputum production. No chest pain or shortness of breath. Denied any recent illnesses. Patient did have previous admissions with MS exacerbation Laboratory showed WBC 18.6, hemoglobin 13.5 and platelets 441 Sodium 136, potassium 4.6, chloride 106 and BUN 12 and creatinine 0.6 Liver enzymes are within normal limits Urinalysis showed cloudy with small blood and moderate leukocyte esterase with WBCs too and squamous epithelial cells 13 Review of Systems Constitutional: Patient denies any fever or chills . No generalized weakness or weight loss. Abdomen: Patient denied nausea vomiting and diarrhea and abdominal pain. Cardiovascular: Patient denies any chest pain or short of breath no palpitatio ns. Respiratory: patient denied any cough is from production. No shortness of breath Neurologic: Patient denied any numbness or tingling . Patient does have headache and right-sided weakness. Blurry vision. Musculoskeletal: Patient denies any complaints of joint swelling or deformity.Ge neralized body pains. Skin: Negative Psychiatric: Negative Endocrine: No heat or cold intolerance. No recent weight gain. Genitourinary: No dysuria or hematuria. All other 14 point ROS negative except the above Past Medical History Past Medical History: Asthma, Fibromyalgia, GERD/Reflux, Hypertension, Musculoskeletal Disorder, Neurologic Disorder, Pneumonia, Seizure Disorder Additional Past Medical History / Comment(s): Multiple Sclerosis, migraines, DJD, interstitial cystitis, UTI, PCOS, vit D deficiency, bilateral optic neuritis with visual problems, generalized chronic pain, numbness/tingling b ilateral lower legs, tachycardia, c-diff 5-9-16, seizures from MS last one around 2017 History of Any Multi-Drug Resistant Organisms: C-DIFF Date of last positivie culture/infection: 2017 MDRO Source:: stool Past Surgical History: Cholecystectomy, Orthopedic Surgery Additional Past Surgical History / Comment(s): Lt shoulder rotator cuff repair 06/06/14, arthroscopic left knee 2000 & 2002, left shoulder reconstruction Past Anesthesia/Blood Transfusion Reactions: No Reported Reaction Additional Past Anesthesia/Blood Transfusion Reaction / Comment(s): Pt has never recieved blood. Past Psychological History: Anxiety, Depression, Depression Smoking Status: Never smoker Past Alcohol Use History: None Reported Past Drug Use History: Marijuana - Past Family History Mother Family Medical History: No Reported History Additional Family Medical History / Comment(s): mother is healthy Father Family Medical History: Hypertension Medications and Allergies Home Medications Medication Instructions Recorded Confirmed Type Ipratropium/Albuterol Sulfate 2 puff INHALATION RT-QID PRN 12/09/13 03/04/20 History [Combivent Respimat Inhaler] Diazepam [Valium] 5 mg PO DAILY PRN 05/24/18 03/04/20 History lisinopriL [Zestril] 10 mg PO DAILY 05/24/18 03/04/20 History Dimethyl Fumarate [Tecfidera] 240 mg PO BID 09/20/18 03/04/20 History Amitriptyline HCl [Elavil] 75 mg PO BID 06/13/19 03/04/20 History Dextroamphetamine/Amphetamine 30 mg PO AC-BRKFST 06/13/19 03/04/20 History [Adderall] Metaxalone [Skelaxin] 800 mg PO TID PRN 06/13/19 03/04/20 History Ondansetron [Zofran ODT] 4 mg PO TID PRN 06/13/19 03/04/20 History Albuterol Inhaler [Ventolin Hfa 2 puff INHALATION RT-DAILY PRN 03/04/20 03/04/20 History Inhaler] Ipratropium-Albuterol Nebulize 1 vial INHALATION RT-DAILY PRN 03/04/20 03/04/20 History [Duoneb 0.5 mg-3 mg/3 ml Soln] oxyCODONE-APAP 10-325MG [Percocet 1 tab PO BID PRN 03/04/20 03/04/20 History 10-325 mg] Allergies Allergy/AdvReac Type Severity Reaction Status Date / Time amoxicillin [Amoxicillin] Allergy Severe Anaphylaxis, Verified 03/04/20 16:08 seizures ciprofloxacin [From Cipro] AdvReac Severe Rash/Hives, Verified 03/04/20 16:08 seizures codeine phosphate AdvReac Unknown Rash/Hives Verified 03/04/20 16:08 [From Tylenol-Codeine #3] cefuroxime axetil AdvReac Rash/Hives Verified 03/04/20 16:08 [From Ceftin] ketorolac [From Toradol] AdvReac Rash/Hives Verified 03/04/20 16:08 latex AdvReac Rash/Hives Verified 03/04/20 16:08 NSAIDS (Non-Steroidal AdvReac Rash/Hives/Lip Verified 03/04/20 16:08 Anti-Inflamma Swelling sulfamethoxazole AdvReac Itching Verified 03/04/20 16:08 [From Bactrim] trimethoprim [From Bactrim] AdvReac Itching Verified 03/04/20 16:08 Physical Exam Vitals: Vital Signs Temp Pulse Pulse Resp BP BP Pulse Ox 03/05/20 00:00 18 03/04/20 20:00 97.4 F L 73 18 133/84 97 03/04/20 18:35 84 20 114/83 96 03/04/20 16:06 98.7 F 92 18 133/84 98 Intake and Output 03/04/20 03/05/20 03/05/20 22:59 06:59 14:59 Intake Total 1250 800 Balance 1250 800 Intake: Intake, IV Titration 1250 800 Amount Sodium Chloride 0.9% 1, 300 800 000 ml @ 100 mls/hr IV . Q10H [facility] Rx#:[id number] Sodium Chloride 0.9% 1, 950 000 ml @ 999 mls/hr IV . Q1H1M [facility] Rx#:[id number] Other: Voiding Method Toilet Toilet Bedside Commode Bedside Commode # Voids 0 1 1 # Bowel Movements 0 0 1 Weight 99.79 kg PHYSICAL EXAMINATION: Patient is lying in the bed comfortably, no acute distress, awake alert and oriented.. HEENT: Normocephalic. Neck is supple. Pupils reactive. Nostrils clear. Oral cavity is moist. Ears reveal no drainage. Neck reveals no JVD, carotid bruits, or thyromegaly. CHEST EXAMINATION: Trachea is central. Symmetrical expansion. Lung pacheco clear to auscultation and percussion. CARDIAC: Normal S1, S2 with no gallops. No murmurs ABDOMEN: Soft. Bowel sounds normal. No organomegaly. No abdominal bruits. Extremities: reveal no edema. No clubbing or cyanosis Neurologically awake, alert, oriented x3 with well-coordinated movements. Muscle strength 4/ 5 right upper and lower extremities. Skin: No rash or skin lesions. Psychiatric: Coperative. Nonsuicidal Musculoskeletal: No joint swelling or deformity. Normal range of motion. Results CBC & Chem 7: 03/04/20 16:57 03/04/20 16:57 Labs: Abnormal Lab Results - Last 24 Hours (Table) 03/04/20 03/04/20 03/04/20 Range/Units 16:57 16:57 17:17 WBC 18.6 H (3.8-10.6) k/uL Neutrophils # 13.5 H (1.3-7.7) k/uL Eosinophils # 0.8 H (0-0.7) k/uL Sodium 136 L (137-145) mmol/L Urine Appearance Cloudy H (Clear) Urine Blood Small H (Negative) Ur Leukocyte Esterase Moderate H (Negative) Ur Squamous Epith Cells 13 H (0-4) /hpf Urine Bacteria Rare H (None) /hpf Urine Mucus Rare H (None) /hpf Thrombosis Risk Factor Assmnt - DVT/VTE Prophylaxis DVT/VTE Prophylaxis: Pharmacologic Prophylaxis ordered - Choose All That Apply Any of the Below Risk Factors Present?: Yes Each Factor Represents 1 point: Age 41-60 years, Obesity (BMI >25) Other Risk Factors: No Thrombosis Risk Factor Assessment Total Risk Factor Score: 2 Thrombosis Risk Factor Assessment Level: Low Risk Assessment and Plan Assessment: Acute right-sided weakness with blurry vision and generalized pain. Possible acute MS exacerbation Leukocytosis rule out infection Abnormal urine sample. Repeat was ordered. History of multiple emesis the patient in the past Seizure disorder Degenerative joint disease History of migraine headaches Chronic pain DVT prophylaxis heparin subcu Morbid obesity BMI 35.5 Plan: Patient was given a dose of methylprednisolone 125 mg x 1 IV in the ER. Continue the pain management. Neurology was consulted. Patient was started high-dose steroids. MRI of the brain was ordered. Neurology is on board furt her recommendations based on the clinical course. Follow-up repeat CBC and BMP tomorrow. Time with Patient: Greater than 30
[2020-03-06] MEDS: oxyCODONE-APAP 10-325MG 1 EACH TAB PO PRN ×4 (00:20→23:43)
[2020-03-06] MEDS: ONDANSETRON 4 MG/2 ML VIAL IVP PRN ×3 (01:39→18:16)
[2020-03-06] MEDS: HYDROmorphone 1 MG/ML 1 ML SYRINGE IVP PRN ×6 (01:39→22:08)
[2020-03-06 08:05] LABS: African American GFR (CKD) >90 (>60 ml/min/1.73 sqM); Anion Gap 11 mmol/L; Blood Urea Nitrogen 10 mg/dL (7-17); Calcium 8.9 mg/dL (8.4-10.2); Carbon Dioxide 21 mmol/L (22-30); Chloride 105 mmol/L (98-107); Glucose 150 mg/dL (74-99); Non-African American GFR(CKD) >90 (>60 ml/min/1.73 sqM); Potassium 4.2 mmol/L (3.5-5.1); Sodium 137 mmol/L (137-145)
[2020-03-06 08:15] LABS: Basophils % (A) 0 %; Eosinophils # (A) 0.1 k/uL (0-0.7); Eosinophils % (A) 0 %; HCT 39.8 % (34.0-46.0); Lymphocytes # (A) 1.5 k/uL (1.0-4.8); Lymphocytes % (A) 5 %; MCH 29.7 pg (25.0-35.0); MCHC 32.7 g/dL (31.0-37.0); MCV 90.7 fL (80.0-100.0); Mean Platelet Volume 8.5; Monocytes # (A) 0.4 k/uL (0-1.0); Monocytes % (A) 1 %; Neutrophils # (A) 27.6 k/uL (1.3-7.7); Neutrophils % (A) 93 %; Platelet Count 433 k/uL (150-450); RBC 4.39 m/uL (3.80-5.40); RDW 13.1 % (11.5-15.5); WBC 29.6 k/uL (3.8-10.6)
[2020-03-06] MEDS: lisinopriL 10 MG TAB PO SCH (08:19)
[2020-03-06] MEDS: NON FORMULARY DRUG (Dimethyl Fumarate [Tecfidera] 240 MG) PO SCH ×2 (08:19→21:06)
[2020-03-06] MEDS: AMITRIPTYLINE HCL 25 MG TAB PO SCH ×2 (08:19→21:00)
[2020-03-06] MEDS: NON FORMULARY DRUG (Dextroamphetamine/Amphetamine [Adderall] 30 MG) PO SCH (08:20)
[2020-03-06] MEDS ORDERED: diazePAM 5 MG TAB PO ONE (10:30)
[2020-03-06] MEDS: methylPREDNISolone SOD SUCC 1,000 MG in SODIUM CHLORIDE 0.9% 250 ML IVPB SCH (12:20)
[2020-03-06] MEDS: SODIUM CHLORIDE 0.9% 1,000 ML IV SCH ×3 (12:23→22:18)
--- NOTE | 2020-03-06 12:35 | MR ---
EXAMINATION TYPE: MR brain wo/w con DATE OF EXAM: 03/06/2020 COMPARISON: 05/01/2018 HISTORY: Multiple Sclerosis, rt sided weakness, rt foot numbness and blurry vision CONTRAST: Performed utilizing 10 mL intravenous Gadavist gadolinium contrast. TECHNIQUE: Multiplanar, multisequence imaging of the brain is performed on a 3.0 Stacy magnet. Demye linating disease protocol with additional Sagittal Flair sequence is performed. Study is performed wi thin 24 hours of arrival to the hospital. FINDINGS: T2 White Matter Lesions Present : Yes Approximate Number of Lesions: Multiple scattered Locations Identified : Size of Largest Lesion(s): 1. 1.2 x 1.1 x 0.7 cm. Location: Right frontal centrum semiovale Sequence 701 Image 20 (axial) and S equence 1101 Image 21 (sagittal). Previous measurement 1.3 x 0.7 x 0.8 cm. 2. 2.3 x 1.0 x 2.2 cm. Location: Posterior right centrum semiovale in the periventricular white mat ter Sequence 701 Image 21 (axial) and Sequence 101 Image 21 (sagittal). Previous measurement 1.8 x 1. 1 x 1.4 cm. 3. 0.8 x 1.1 x 0.7 cm. Location left negro radiata. Series 701 image 19, series 1101 image 11. Previ ous measurement 0.6 x 0.7 x 0.5 m. Enhancing Lesion(s) Present: No Change from Prior: Enlargement of the largest lesion with regression of a right periventricular lesio n. Diffusion-weighted imaging is performed. No abnormal hyperintensity is present to suggest an acute i ntracranial infarct or acute ischemic change. Ventricles and sulci are prominent for the patient age. There appears be some encephalomalacia of the medial right occipital lobe. There are no abnormal extra-axial fluid collections. The ventricular system and cisternal spaces are normal in size and appearance. The craniocervical junction appears within normal limits. The dural venous sinuses appear patent. No abnormal enhancement is present on post contrast images. . The visualized sinuses are clear. Visu alized orbits are unremarkable. IMPRESSION: 1. Majority of the previously identified lesions increased slightly in size over the interval. There is noted progression of the right periventricular lesion from comparison.
[2020-03-06] MEDS ORDERED: LORazepam 0.5 MG TAB PO PRN (17:13)
--- NOTE | 2020-03-06 22:37 | P.PN ---
Subjective Progress Note Date: 03/06/20 Patient had initial consultation performed by Dr. Lr yesterday. Came to see patient for a follow-up. Patient has history of relapsing remitting MS. Patient previously has tried numerous disease modifying agents including Avonex, Copaxone, Gilenya, and Ocrevus. Patient had a reaction to Ocrevus. Patient has been on Tecfidera since it was markedted. Patient came to the hospital for acute onset of right leg weakness. Also with some blurred vision in the right eye. Patient has been started on Solu-Medrol 1 g IV PB daily, and the first dose was yesterday. Today is his day #2. Patient follows up with Dr. Soria. Objective - Vital Signs Vital signs: Vital Signs Temp 98.4 F 03/06/20 19:33 Pulse 75 03/06/20 19:33 Resp 20 03/06/20 19:33 BP 131/81 03/06/20 19:33 Pulse Ox 96 03/06/20 19:33 Intake & Output 03/06/20 03/06/20 03/07/20 06:59 18:59 06:59 Intake Total 1200 Balance 1200 Intake: Intake, IV Titration 1200 Amount Sodium Chloride 0.9% 1, 1200 000 ml @ 100 mls/hr IV . Q10H [facility] Rx#:[id number] Other: Voiding Method Bedside Commode Bedside Commode # Voids 1 1 - Exam Patient's mental status, speech and language functions are normal. No aphasia, dysarthria. Pupils are round and reacting, visual pacheco are full on confrontation. Extraocular muscles are intact. Face is symmetric and tongue protrudes the midline. Muscle strength is normal in bilateral upper limbs. In the lower limbs, patient has weakness of the right ankle dorsiflexion of about 3/5. Whereas it is normal on the left. Reflexes are 1-2 all over. Plantar is up on the right. - Labs CBC & Chem 7: 03/06/20 06:22 03/06/20 06:22 Labs: Abnormal Lab Results - Last 24 Hours (Table) 03/06/20 03/06/20 Range/Units 06:22 06:22 WBC 29.6 H (3.8-10.6) k/uL Neutrophils # 27.6 H (1.3-7.7) k/uL Carbon Dioxide 21 L (22-30) mmol/L Glucose 150 H (74-99) mg/dL Microbiology - Last 24 Hours (Table) 03/05/20 19:15 Urine Culture - Final Urine,Voided Assessment and Plan Assessment: * Exacerbation of multiple sclerosis. * Reactive leukocytosis Plan: * MRI of the brain revealed majority of the previously identified lesions increased slightly in size over the interval. There is noted progression of the right periventricular lesion from comparison. Based upon MRI findings, somewhat concerned about PML. Patient's JCV antibodies were highly +3.68 on 08/31/2018. Her absolute lymphocyte count is not very low, therefore relatively risk is less. * Suggest repeating JCV titers. * I will try to talk to patient's neurologist on the phone tomorrow, if he would like to pursue further testing in his office or inpatient.
--- NOTE | 2020-03-06 22:45 | P.PN ---
Subjective Progress Note Date: 03/06/20 Principal diagnosis: Acute MS exacerbation. Patient is a 40-year-old female with a known history of asthma/fibromyalgia, history of multiple sclerosis, seizure disorder, DJD, migraine headaches, PCOS and chronic pain came to ER with complaints of right-sided weakness and blurry vision in the right eye for the past few days. Patient also complaining pain in her both legs and arms. Patient states that she feels like she is having MS exacerbation again and is also complaining of right leg weakness versus consistent with her previous exacerbation. Patient states that she felt like she might fall at home due to her weakness. Patient states that she was nauseous. Patient had headache mainly in the frontal region and towards the right eye. Denied any complaints of abdominal pain. No diarrhea or dysuria. No cough or sputum production. No chest pain or shortness of breath. Denied any recent illnesses. Patient did have previous admissions with MS exacerbation Laboratory showed WBC 18.6, hemoglobin 13.5 and platelets 441 Sodium 136, potassium 4.6, chloride 106 and BUN 12 and creatinine 0.6 Liver enzymes are within normal limits Urinalysis showed cloudy with small blood and moderate leukocyte esterase with WBCs too and squamous epithelial cells 13 03/06/2020 Patient is currently sitting in the chair comfortably. Patient states that her right-sided weakness and pain is better compared to yesterday. Currently being continued on high-dose IV steroids. Neurology is following. MRI of the brain showed slightly increasing size of previous lesions. No new lesions were noted. Patient is otherwise anxious and requesting Xanax. No complaints of fever or chills. Tolerating oral diet. No nausea vomiting or abdominal pain or diarrhea. Patient also leukocytosis with WBC count 29.6 likely due to steroids. [facility] negative for infection. Coronavirus PCR not detected. Current medications reviewed. Objective - Vital Signs Vital signs: Vital Signs Temp 98.4 F 03/06/20 19:33 Pulse 75 03/06/20 19:33 Resp 20 03/06/20 19:33 BP 131/81 03/06/20 19:33 Pulse Ox 96 03/06/20 19:33 Intake & Output 03/06/20 03/06/20 03/07/20 06:59 18:59 06:59 Intake Total 1200 Balance 1200 Intake: Intake, IV Titration 1200 Amount Sodium Chloride 0.9% 1, 1200 000 ml @ 100 mls/hr IV . Q10H [facility] Rx#:[id number] Other: Voiding Method Bedside Commode Bedside Commode # Voids 1 1 - Exam PHYSICAL EXAMINATION: Patient is lying in the bed comfortably, no acute distress, awake alert and oriented.. HEENT: Normocephalic. Neck is supple. Pupils reactive. Nostrils clear. Oral cavity is moist. Ears reveal no drainage. Neck reveals no JVD, carotid bruits, or thyromegaly. CHEST EXAMINATION: Trachea is central. Symmetrical expansion. Lung pacheco clear to auscultation and percussion. CARDIAC: Normal S1, S2 with no gallops. No murmurs ABDOMEN: Soft. Bowel sounds normal. No organomegaly. No abdominal bruits. Extremities: reveal no edema. No clubbing or cyanosis Neurologically awake, alert, oriented x3 with well-coordinated movements. Muscle strength 4/ 5 right upper and lower extremities. Skin: No rash or skin lesions. Psychiatric: Coperative. Nonsuicidal Musculoskeletal: No joint swelling or deformity. Normal range of motion. - Labs CBC & Chem 7: 03/06/20 06:22 03/06/20 06:22 Labs: Abnormal Lab Results - Last 24 Hours (Table) 03/06/20 03/06/20 Range/Units 06:22 06:22 WBC 29.6 H (3.8-10.6) k/uL Neutrophils # 27.6 H (1.3-7.7) k/uL Carbon Dioxide 21 L (22-30) mmol/L Glucose 150 H (74-99) mg/dL Microbiology - Last 24 Hours (Table) 03/05/20 19:15 Urine Culture - Final Urine,Voided Assessment and Plan Assessment: Acute right-sided weakness with blurry vision and generalized pain. acute MS exacerbation Leukocytosis. ruled out infection Abnormal urine sample. Repeat was ordered. History of multiple emesis the patient in the past Seizure disorder Degenerative joint disease History of migraine headaches Chronic pain DVT prophylaxis heparin subcu Morbid obesity BMI 35.5 Plan: Patient was given a dose of methylprednisolone 125 mg x 1 IV in the ER. Continue the pain management. Neurology was consulted. Patient was started high-dose steroids. MRI of the brain report reviewed. Neurology is on board further recommendations based on the clinical course. Follow-up repeat CBC and BMP tomorrow. Time with Patient: Greater than 30
[2020-03-07] MEDS: HYDROmorphone 1 MG/ML 1 ML SYRINGE IVP PRN ×3 (01:53→10:07)
[2020-03-07] MEDS: ONDANSETRON 4 MG/2 ML VIAL IVP PRN ×2 (01:53→10:09)
[2020-03-07] MEDS: oxyCODONE-APAP 10-325MG 1 EACH TAB PO PRN (08:31)
[2020-03-07] MEDS: methylPREDNISolone SOD SUCC 1,000 MG in SODIUM CHLORIDE 0.9% 250 ML IVPB SCH (08:34)
[2020-03-07] MEDS: diazePAM 5 MG TAB PO PRN (08:42)
[2020-03-07] MEDS: lisinopriL 10 MG TAB PO SCH (08:43)
[2020-03-07] MEDS: AMITRIPTYLINE HCL 25 MG TAB PO SCH (08:43)
[2020-03-07 09:13] VITALS: BP 163/80; PULSE 80; RESP 20; TEMP 98.3
[2020-03-07] MEDS: NON FORMULARY DRUG (Dimethyl Fumarate [Tecfidera] 240 MG) PO SCH (09:13)
[2020-03-07] MEDS: NON FORMULARY DRUG (Dextroamphetamine/Amphetamine [Adderall] 30 MG) PO SCH (09:13)
[2020-03-07] MEDS ORDERED: HYDROmorphone 0.5 MG/0.5 ML SYRINGE SQ STA (14:07)
== END 2020-03-07 14:49 | disposition home or self-care (01) ==
LOC: EC 15:51 → 5NMEDONC 18:17 → 6PED 03-06 10:22
PROVIDERS: ADMIT Hospitalist; ATTEND Hospitalist
DX: G35 Multiple sclerosis (principal); R82.90 Unspecified abnormal findings in urine; D72.829 Elevated white blood cell count, unspecified; G40.909 Epilepsy, unspecified, not intractable, without status epilepticus; M19.90 Unspecified osteoarthritis, unspecified site; G43.909 Migraine, unspecified, not intractable, without status migrainosus; G89.29 Other chronic pain; E66.01 Morbid (severe) obesity due to excess calories; J45.909 Unspecified asthma, uncomplicated; M79.7 Fibromyalgia; K21.9 Gastro-esophageal reflux disease without esophagitis; I10 Essential (primary) hypertension; E28.2 Polycystic ovarian syndrome; E55.9 Vitamin D deficiency, unspecified; F41.9 Anxiety disorder, unspecified; F32.9 Major depressive disorder, single episode, unspecified; Z68.35 Body mass index [BMI] 35.0-35.9, adult; Z87.19 Personal history of other diseases of the digestive system; Z79.899 Other long term (current) drug therapy; Z03.818 Encounter for observation for suspected exposure to other biological agents ruled out; Z79.891 Long term (current) use of opiate analgesic; Z88.0 Allergy status to penicillin; Z88.1 Allergy status to other antibiotic agents; Z88.5 Allergy status to narcotic agent; Z88.6 Allergy status to analgesic agent; Z91.040 Latex allergy status; Z88.2 Allergy status to sulfonamides; Z87.01 Personal history of pneumonia (recurrent); Z86.69 Personal history of other diseases of the nervous system and sense organs; Z87.440 Personal history of urinary (tract) infections; Z86.19 Personal history of other infectious and parasitic diseases; Z90.49 Acquired absence of other specified parts of digestive tract; Z98.890 Other specified postprocedural states; Z87.39 Personal history of other diseases of the musculoskeletal system and connective tissue; Z91.81 History of falling; Z88.8 Allergy status to other drugs, medicaments and biological substances; Z82.49 Family history of ischemic heart disease and other diseases of the circulatory system
CPT/HCPCS: 96376 ×5; 96361 ×5; 96365; 96366 ×2; 96372; 96375; 99285; 36415; 97161; 80053; 80048; 85025 ×2; 81001 ×2; 81025; 87086; 70553; G0378 ×5; U0003; J1200; J2765; J2930 ×4; J2405 ×4; J1170 ×6; A9585

== ENCOUNTER → 2020-04-28 | Outpatient (CLI) | payer MEDICARE, OTHER ==
[2020-04-28 15:11] LABS: Basophils # (A) 0.1 k/uL (0-0.2); Basophils % (A) 0 %; Eosinophils # (A) 0.6 k/uL (0-0.7); Eosinophils % (A) 3 %; HCT 44.5 % (34.0-46.0); HGB 14.2 gm/dL (11.4-16.0); Lymphocytes # (A) 3.3 k/uL (1.0-4.8); Lymphocytes % (A) 16 %; MCH 28.3 pg (25.0-35.0); MCV 88.6 fL (80.0-100.0); Mean Platelet Volume 7.6; Monocytes # (A) 0.8 k/uL (0-1.0); Monocytes % (A) 4 %; Neutrophils # (A) 15.3 k/uL (1.3-7.7); Neutrophils % (A) 76 %; Platelet Count 473 k/uL (150-450); RBC 5.02 m/uL (3.80-5.40); RDW 13.4 % (11.5-15.5); WBC 20.2 k/uL (3.8-10.6)
[2020-04-29 00:18] LABS: ALT 30 U/L (8-44); AST 24 U/L (13-35); Albumin/Globulin Ratio 2.75 (1.60-3.17); Alkaline Phosphatase 56 U/L (41-126); Bilirubin, Conjugated <0.20 mg/dL (0.20-0.40); Globulin 1.6 g/dL (1.6-3.3); Total Bilirubin 0.2 mg/dL (0.2-1.2)
[2020-04-29 05:02] LABS: Hepatitis B Surface Antigen Non-Reactive (Non-Reactive); Hepatitis C IgG Antibody Non-Reactive (Non-Reactive)
[2020-04-29 09:25] LABS: HIV 2 AB Non-Reactive (Non-Reactive); HIV AB P24 Non-Reactive (Non-Reactive); HIV P24 AG Non-Reactive (Non-Reactive)
[2020-04-29 19:39] LABS: T4/T8 Ratio (CD4:CD8) 4.3 (1.0-3.7)
== END | disposition home or self-care (01) ==
LOC: LABWHC1 13:52
PROVIDERS: ATTEND Physician Assistant Medical
DX: G35 Multiple sclerosis (principal)
CPT/HCPCS: 36415; 80076; 81025; 85025; 86360; 86480; 86704; 86803; 87340; 87390

== ENCOUNTER → 2020-05-16 | Outpatient (CLI) | payer MEDICARE, OTHER ==
--- NOTE | 2020-05-16 12:40 | MR ---
MRI CERVICAL SPINE: CLINICAL HISTORY: Multiple sclerosis TECHNIQUE: Multiplanar, multisequence imaging of the cervical spine is performed without IV contrast. Demyelinating disease protocol. COMPARISON: MRI cervical spine October 15, 2019. CT cervical spine January 01, 2020 FINDINGS: Coronal images redemonstrate slight levoconvex scoliotic curvature positioning centered in the upper thoracic spine. Sagittal images of the cervical spine show the craniocervical junction to r emain within normal limits. The cervical and upper thoracic spinal cord is normal in course, caliber , and signal. No obvious subtle T2 hyperintense lesion seen on current study with particular attentio n to C7 level at area of prior suspicion. Vertebral alignment is stable on sagittal images. The vert ebral body and intravertebral disk heights are normal. The bone marrow signal intensity is within no rmal limits. Axial images at C5-C6 level redemonstrate broad-based right paracentral disc protrusion effacing ante rolateral thecal sac and causing [id number] right-sided neural foraminal narrowing. No signific ant change from prior. Axial images at C6-C7 level showed tiny broad-based posterior disc protrusion mildly facing anterior thecal sac. Bilateral neural foramina are patent. No significant change from prior. There may be subtle left lateral T3 cord T2 hyperintense lesion on axial image 40 corresponding to PD sagittal image 5. This may have been present in retrospect axial image 40 and sagittal image 4 serie s [id number]. Lesion measures roughly 8 mm long axis sagittal image 5 today's study. IMPRESSION: Stable mild degenerative changes C5-C6 and C6-C7 level. Subtle plaque left lateral mid-C3 level noted, in retrospect stable. Prior visualized possible C7 lesion less well seen on current gurwinder dy.
== END | disposition home or self-care (01) ==
LOC: RADMRIMAIN 11:11
PROVIDERS: ATTEND Physician Assistant Medical
DX: M47.892 Other spondylosis, cervical region (principal)
CPT/HCPCS: 72141

== ENCOUNTER 2020-06-29 18:28 | Observation (INO) | payer MEDICARE, OTHER ==
[2020-06-29] MEDS ORDERED: SODIUM CHLORIDE 0.9% 1,000 ML IV ONE (19:23)
[2020-06-29] MEDS ORDERED: ONDANSETRON 4 MG/2 ML VIAL IVP STA (19:24)
[2020-06-29] MEDS ORDERED: MORPHINE SULFATE 2 MG/ML SYRINGE IVP STA ×2 (19:24→20:53)
--- NOTE | 2020-06-29 19:29 | ED ---
General Adult HPI - General Source: patient, RN notes reviewed, old records reviewed Mode of arrival: ambulatory Limitations: no limitations <Tip Sims - Last Filed: 06/29/20 20:57> <Sylvester Garcia - Last Filed: 06/29/20 22:00> - General Chief complaint: Nausea/Vomiting/Diarrhea Stated complaint: MS issues Time Seen by Provider: 06/29/20 18:30 - History of Present Illness Initial comments: This is a 40-year-old female who presents emergency department stating she has a history of MS. Patient states she's had an exacerbation of MS which is causing her complete body pain in every area. Patient states because of this she started vomiting for the last 2 days. Patient states because she has vomited s he can't take her [place] and she is requesting pain medication. Patient states she's also had some blurred vision which is typical of her MS symptoms. Patient states she's also had some on-and-off tingling of the right foot. Patient denies any recent fever chills or cough per patient denies lightheadedness or dizziness. Patient denies any chest pain difficulty breathing or shortness of breath per patient denies any palpitations. Patient denies any abdominal pain other than having some soreness from vomiting. Patient denies any diarrhea. Patient states her neurologist ordered her some steroids today and she took some from home nursing (Tip Sims) - Related Data Home Medications Medication Instructions Recorded Confirmed Ipratropium/Albuterol Sulfate 2 puff INHALATION RT-QID PRN 12/09/13 06/29/20 [Combivent Respimat Inhaler] Diazepam [Valium] 5 mg PO DAILY PRN 05/24/18 06/29/20 lisinopriL [Zestril] 10 mg PO DAILY 05/24/18 06/29/20 Dimethyl Fumarate [Tecfidera] 240 mg PO BID 09/20/18 06/29/20 Amitriptyline HCl [Elavil] 75 mg PO BID 06/13/19 06/29/20 Metaxalone [Skelaxin] 800 mg PO TID PRN 06/13/19 06/29/20 Ondansetron [Zofran ODT] 4 mg PO TID PRN 06/13/19 06/29/20 Albuterol Inhaler [Ventolin Hfa 2 puff INHALATION RT-QID PRN 03/04/20 06/29/20 Inhaler] Ipratropium-Albuterol Nebulize 3 ml INHALATION RT-DAILY PRN 03/04/20 06/29/20 [Duoneb 0.5 mg-3 mg/3 ml Soln] oxyCODONE-APAP 10-325MG [Percocet 1 tab PO BID PRN 03/04/20 06/29/20 10-325 mg] Dextroamphetamine/Amphetamine 15 mg PO BID 06/29/20 06/29/20 [Adderall] HYDROcodone/APAP 10-325MG [[place] 1 tab PO BID PRN 06/29/20 06/29/20 10-325] Methylprednisolone Inj 1 gm IV DAILY 06/29/20 06/29/20 Ondansetron Inj 4mg/2ml 8 mg IV DAILY 06/29/20 06/29/20 Allergies Allergy/AdvReac Type Severity Reaction Status Date / Time amoxicillin [Amoxicillin] Allergy Severe Anaphylaxis, Verified 06/29/20 21:30 seizures ciprofloxacin [From Cipro] AdvReac Severe Rash/Hives, Verified 06/29/20 21:30 seizures codeine phosphate AdvReac Unknown Rash/Hives Verified 06/29/20 21:30 [From Tylenol-Codeine #3] cefuroxime axetil AdvReac Rash/Hives Verified 06/29/20 21:30 [From Ceftin] ketorolac [From Toradol] AdvReac Rash/Hives Verified 06/29/20 21:30 latex AdvReac Rash/Hives Verified 06/29/20 21:30 NSAIDS (Non-Steroidal AdvReac Rash/Hives/Lip Verified 06/29/20 21:30 Anti-Inflamma Swelling sulfamethoxazole AdvReac Itching Verified 06/29/20 21:30 [From Bactrim] trimethoprim [From Bactrim] AdvReac Itching Verified 06/29/20 21:30 Review of Systems ROS Other: All systems not noted in ROS Statement are negative. <Tip Sims - Last Filed: 06/29/20 20:57> ROS Other: All systems not noted in ROS Statement are negative. <Sylvester Garcia - Last Filed: 06/29/20 22:00> ROS Statement: Those systems with pertinent positive or pertinent negative responses have been documented in the HPI. Past Medical History Past Medical History: Asthma, Fibromyalgia, GERD/Reflux, Hypertension, Musculoskeletal Disorder, Neurologic Disorder, Pneumonia, Seizure Disorder Additional Past Medical History / Comment(s): Multiple Sclerosis, migraines, DJD, interstitial cystitis, UTI, PCOS, vit D deficiency, bilateral optic neuritis with visual problems, generalized chronic pain, numbness/tingling bilateral lower legs, tachycardia, c-diff 5-9-16, seizures from MS last one around 2017 History of Any Multi-Drug Resistant Organisms: C-DIFF Date of last positivie culture/infection: 2017 MDRO Source:: stool Past Surgical History: Cholecystectomy, Orthopedic Surgery Additional Past Surgical History / Comment(s): Lt shoulder rotator cuff repair 06/06/14, arthroscopic left knee 2000 & 2002, left shoulder reconstruction Past Anesthesia/Blood Transfusion Reactions: No Reported Reaction Additional Past Anesthesia/Blood Transfusion Reaction / Comment(s): Pt has never recieved blood. Past Psychological History: Anxiety, Depression, Depression Smoking Status: Never smoker Past Alcohol Use History: None Reported Past Drug Use History: Marijuana - Past Family History Mother Family Medical History: No Reported History Additional Family Medical History / Comment(s): mother is healthy Father Family Medical History: Hypertension <Tip Sims - Last Filed: 06/29/20 20:57> General Exam Limitations: no limitations <Tip Sims - Last Filed: 06/29/20 20:57> - General Exam Comments Initial Comments: GENERAL: Patient is well-developed and well-nourished. Patient is nontoxic and well- hydrated and is in mild distress. ENT: Neck is soft and supple. No significant lymphadenopathy is noted. Oropharynx is clear. Moist mucous membranes. Neck has full range of motion without eliciting any pain. EYES: The sclera were anicteric and conjunctiva were pink and moist. Extraocular movements were intact and pupils were equal round and reactive to light. Eyelids were unremarkable. PULMONARY: Unlabored respirations. Good breath sounds bilaterally. No audible rales rhonchi or wheezing was noted. CARDIOVASCULAR: There is a regular rate and rhythm without any murmurs gallops or rubs. ABDOMEN: Soft and nontender with normal bowel sounds. SKIN: Skin is clear with no lesions or rashes and otherwise unremarkable. NEUROLOGIC: Patient is alert and oriented x3. Cranial nerves II through XII are grossly intact. Patient is able to move all 4 extremities. MUSCULOSKELETAL: Normal extremities with adequate strength and full range of motion. No lower extremity swelling or edema. No calf tenderness. LYMPHATICS: No significant lymphadenopathy is noted PSYCHIATRIC: Normal psychiatric evaluation. (Tip Sims) Course Vital Signs 06/29/20 06/29/20 18:29 21:19 Temperature 98.0 F Pulse Rate 101 H 87 Respiratory 22 16 Rate Blood Pressure 151/87 188/92 O2 Sat by Pulse 96 99 Oximetry Medical Decision Making <Tip Sims - Last Filed: 06/29/20 20:57> - Lab Data Result diagrams: 06/29/20 21:10 06/29/20 21:10 <Sylvester Garcia - Last Filed: 06/29/20 22:00> - Medical Decision Making Dr. Garcia will be taking over the care of this patient at 9 PM (Tip Sims) Patient care sent out to me by previous shift physician. Briefly, patient is 40-year-old female presents with past medical history of multiple sclerosis. She believes she is having a flare. Patient was initially seen and evaluated by Dr. Sims. Plan at sign out was to follow-up with her pending labs. She complains of total body pain. Laboratory evaluation obtained. CBC appears to be at patient's baseline. She has chronic leukocytosis and neutrophilia. Metabolic panel is unremarkable. Patient reevaluated and continues to be in pain. Patient be admitted with consultation to neurology. Case was discussed with sheet was went except patient's care. (Sylvester Garcia) - Lab Data Lab Results 06/29/20 06/29/20 Range/Units 21:10 21:10 WBC 20.5 H (3.8-10.6) k/uL RBC 5.09 (3.80-5.40) m/uL Hgb 14.9 (11.4-16.0) gm/dL Hct 45.2 (34.0-46.0) % MCV 88.8 (80.0-100.0) fL MCH 29.3 (25.0-35.0) pg MCHC 33.0 (31.0-37.0) g/dL RDW 13.2 (11.5-15.5) % Plt Count 419 (150-450) k/uL MPV 7.3 Neutrophils % 93 % Lymphocytes % 5 % Monocytes % 0 % Eosinophils % 1 % Basophils % 0 % Neutrophils # 19.0 H (1.3-7.7) k/uL Lymphocytes # 1.1 (1.0-4.8) k/uL Monocytes # 0.1 (0-1.0) k/uL Eosinophils # 0.2 (0-0.7) k/uL Basophils # 0.0 (0-0.2) k/uL Sodium 138 (137-145) mmol/L Potassium 4.4 (3.5-5.1) mmol/L Chloride 104 (98-107) mmol/L Carbon Dioxide 24 (22-30) mmol/L Anion Gap 10 mmol/L BUN 9 (7-17) mg/dL Creatinine 0.61 (0.52-1.04) mg/dL Est GFR (CKD-EPI)AfAm >90 (>60 ml/min/1.73 sqM) Est GFR (CKD-EPI)NonAf >90 (>60 ml/min/1.73 sqM) Glucose 148 H (74-99) mg/dL Calcium 10.0 (8.4-10.2) mg/dL Total Bilirubin 0.4 (0.2-1.3) mg/dL AST 37 H (14-36) U/L ALT 39 H (4-34) U/L Alkaline Phosphatase 52 (38-126) U/L Total Protein 7.6 (6.3-8.2) g/dL Albumin 4.6 (3.5-5.0) g/dL Disposition <Tip Sims - Last Filed: 06/29/20 20:57> Decision Time: 22:00 <Sylvester Garcia - Last Filed: 06/29/20 22:00> Clinical Impression: Intractable pain Disposition: ADMITTED IP TO THIS [facility] Condition: Fair Referrals: None,Stated [Primary Care Provider] - 1-2 days
[2020-06-29] MEDS ORDERED: HYDROmorphone 1 MG/ML 1 ML SYRINGE IVP STA (21:10)
[2020-06-29 21:16] LABS: Basophils % (A) 0 %; Eosinophils # (A) 0.2 k/uL (0-0.7); Eosinophils % (A) 1 %; HCT 45.2 % (34.0-46.0); HGB 14.9 gm/dL (11.4-16.0); Lymphocytes # (A) 1.1 k/uL (1.0-4.8); Lymphocytes % (A) 5 %; MCH 29.3 pg (25.0-35.0); MCV 88.8 fL (80.0-100.0); Mean Platelet Volume 7.3; Monocytes # (A) 0.1 k/uL (0-1.0); Monocytes % (A) 0 %; Neutrophils % (A) 93 %; Platelet Count 419 k/uL (150-450); RBC 5.09 m/uL (3.80-5.40); RDW 13.2 % (11.5-15.5); WBC 20.5 k/uL (3.8-10.6)
[2020-06-29 21:27] LABS: ALT 39 U/L (4-34); AST 37 U/L (14-36); African American GFR (CKD) >90 (>60 ml/min/1.73 sqM); Albumin 4.6 g/dL (3.5-5.0); Alkaline Phosphatase 52 U/L (38-126); Anion Gap 10 mmol/L; Blood Urea Nitrogen 9 mg/dL (7-17); Carbon Dioxide 24 mmol/L (22-30); Chloride 104 mmol/L (98-107); Glucose 148 mg/dL (74-99); Non-African American GFR(CKD) >90 (>60 ml/min/1.73 sqM); Potassium 4.4 mmol/L (3.5-5.1); Sodium 138 mmol/L (137-145); Total Bilirubin 0.4 mg/dL (0.2-1.3); Total Protein 7.6 g/dL (6.3-8.2)
[2020-06-29] MEDS ORDERED: NALOXONE 0.4 MG/ML 1 ML VIAL IV PRN (21:58)
[2020-06-29] MEDS ORDERED: HYDROmorphone 1 MG/ML 1 ML SYRINGE IVP PRN (22:14)
[2020-06-30] MEDS ORDERED: ONDANSETRON 4 MG/2 ML VIAL IVP PRN (00:49)
[2020-06-30] MEDS ORDERED: HYDROcodone/APAP 10-325MG 1 EACH TAB PO ONE (00:50)
[2020-06-30] MEDS ORDERED: diphenhydrAMINE 25 MG CAP PO STA (00:50)
[2020-06-30] MEDS ORDERED: ALBUTEROL NEBULIZED 2.5 MG/3 ML INHALATION PRN (09:24)
[2020-06-30] MEDS ORDERED: HYDROcodone/APAP 10-325MG 1 EACH TAB PO PRN (09:24)
[2020-06-30] MEDS ORDERED: CYCLOBENZAPRINE 10 MG TAB PO PRN (09:24)
[2020-06-30] MEDS ORDERED: diazePAM 5 MG TAB PO PRN (09:24)
[2020-06-30] MEDS ORDERED: ONDANSETRON ODT 4 MG TAB PO PRN (09:24)
[2020-06-30] MEDS ORDERED: IPRATROPIUM-ALBUTEROL 3 ML NEB INHALATION PRN ×2 (09:24)
[2020-06-30 09:45] VITALS: BP 162/78; PULSE 98; RESP 20; TEMP 98
[2020-06-30] MEDS ORDERED: lisinopriL 10 MG TAB PO SCH (10:00)
[2020-06-30] MEDS ORDERED: DEXTROAMPHETAMINE PO SCH (16:00)
[2020-06-30] MEDS ORDERED: AMPHETAMINE PO SCH (16:00)
[2020-06-30] MEDS ORDERED: PATIENT'S OWN (Dimethyl Fumarate [Tecfidera] 240 MG Capsule.Dr) PO SCH (21:00)
[2020-06-30] MEDS ORDERED: AMITRIPTYLINE HCL 25 MG TAB PO SCH (21:00)
--- NOTE | 2020-06-30 22:03 | P.HPIM ---
History of Present Illness H&P Date: 06/30/20 Chief Complaint: Nausea vomiting Patient is a 40-year-old female with a known history of fibromyalgia, hypertension, GERD, asthma, PCOS, interstitial cystitis, history of multiple sclerosis and migraine headaches and other multimedical problems including anxiety/depression marijuana use history presents to ER with complaints of nausea vomiting and diarrhea. Patient is also complaining of generalized body pain. Patient has been having worsening symptoms for the past 2 days. She is unable to take her medications at home. Patient states that she was having b lurred vision which is typical of her MS symptoms. Patient is also complaining of on and off tingling sensation in the right foot. Denied any fever or chills. No recent illnesses otherwise. No cough or sputum production. No chest pain or shortness of breath. Patient follows with neurologist as an outpatient. Patient was recently started on steroids as per patient. Patient was admitted to the hospital for intractable pain Laboratory data showed WBC 20.5, hemoglobin 14.9, platelets 419 Blood sugar is 148 AST 37 ALT 39 and albumin 4.6 Patient has been afebrile and saturating well on room air. Review of Systems Constitutional: Patient denies any fever or chills . generalized pain. no weakness. no weight loss. Abdomen: Nausea vomiting and abdominal pain. No diarrhea.. Cardiovascular: Patient denies any chest pain or short of breath no palpita tions. Respiratory: patient denied any cough or sputum production. No shortness of breath Neurologic: Patient denied any numbness or tingling headache. Musculoskeletal: Patient denies any complaints of joint swelling or deformity. Skin: Negative Psychiatric: Negative Endocrine: No heat or cold intolerance. No recent weight gain. Genitourinary: No dysuria or hematuria. All other 14 point ROS negative except the above Past Medical History Past Medical History: Asthma, Fibromyalgia, GERD/Reflux, Hypertension, Musculoskeletal Disorder, Neurologic Disorder, Pneumonia, Seizure Disorder Additional Past Medical History / Comment(s): Multiple Sclerosis, migraines, DJD, interstitial cystitis, UTI, PCOS, vit D deficiency, bilateral optic neuritis with visual problems, generalized chronic pain, numbness/tingling bilateral lower legs, tachycardia, c-diff 5-9-16, seizures from MS last one around 2016 History of Any Multi-Drug Resistant Organisms: C-DIFF Date of last positivie culture/infection: 2017 MDRO Source:: stool Past Surgical History: Cholecystectomy, Orthopedic Surgery Additional Past Surgical History / Comment(s): Lt shoulder rotator cuff repair 06/06/14, arthroscopic left knee 2000 & 2002, left shoulder reconstruction Past Anesthesia/Blood Transfusion Reactions: No Reported Reaction Additional Past Anesthesia/Blood Transfusion Reaction / Comment(s): Pt has never recieved blood. Past Psychological History: Anxiety, Depression, Depression Additional Psychological History / Comment(s): OCD Smoking Status: Never smoker Past Alcohol Use History: None Reported Additional Past Alcohol Use History / Comment(s): STARTED SMOKING AGE 17 and quit in 2017 but is using vapor cigarette somedays. Patient denies any medical marijuana, marijuana, street drug use. She denies any alcohol use or abuse. Patient is and lives with her and one child. No recent travel. Patient is on disability. Past Drug Use History: Marijuana Additional Drug Use History / Comment(s): Patient reports past history of cocaine, inhaling heroin (no IV use of heroin per patient), marijuana and pain pills not prescribed to patient. - Past Family History Mother Family Medical History: No Reported History Additional Family Medical History / Comment(s): mother is healthy Father Family Medical History: Hypertension Medications and Allergies Home Medications Medication Instructions Recorded Confirmed Type Ipratropium/Albuterol Sulfate 2 puff INHALATION RT-QID PRN 12/09/13 06/29/20 History [Combivent Respimat Inhaler] Diazepam [Valium] 5 mg PO DAILY PRN 05/24/18 06/29/20 History lisinopriL [Zestril] 10 mg PO DAILY 05/24/18 06/29/20 History Dimethyl Fumarate [Tecfidera] 240 mg PO BID 09/20/18 06/29/20 History Amitriptyline HCl [Elavil] 75 mg PO BID 06/13/19 06/29/20 History Metaxalone [Skelaxin] 800 mg PO TID PRN 06/13/19 06/29/20 History Ondansetron [Zofran ODT] 4 mg PO TID PRN 06/13/19 06/29/20 History Albuterol Inhaler [Ventolin Hfa 2 puff INHALATION RT-QID PRN 03/04/20 06/29/20 History Inhaler] Ipratropium-Albuterol Nebulize 3 ml INHALATION RT-DAILY PRN 03/04/20 06/29/20 H istory [Duoneb 0.5 mg-3 mg/3 ml Soln] oxyCODONE-APAP 10-325MG [Percocet 1 tab PO BID PRN 03/04/20 06/29/20 History 10-325 mg] Dextroamphetamine/Amphetamine 15 mg PO BID 06/29/20 06/29/20 History [Adderall] HYDROcodone/APAP 10-325MG [[place] 1 tab PO BID PRN 06/29/20 06/29/20 History 10-325] Methylprednisolone Inj 1 gm IV DAILY 06/29/20 06/29/20 History Ondansetron Inj 4mg/2ml 8 mg IV DAILY 06/29/20 06/29/20 History Allergies Allergy/AdvReac Type Severity Reaction Status Date / Time amoxicillin [Amoxicillin] Allergy Severe Anaphylaxis, Verified 06/29/20 21:30 seizures ciprofloxacin [From Cipro] AdvReac Severe Rash/Hives, Verified 06/29/20 21:30 seizures codeine phosphate AdvReac Unknown Rash/Hives Verified 06/29/20 21:30 [From Tylenol-Codeine #3] cefuroxime axetil AdvReac Rash/Hives Verified 06/29/20 21:30 [From Ceftin] ketorolac [From Toradol] AdvReac Rash/Hives Verified 06/29/20 21:30 latex AdvReac Rash/Hives Verified 06/29/20 21:30 NSAIDS (Non-Steroidal AdvReac Rash/Hives/Lip Verified 06/29/20 21:30 Anti-Inflamma Swelling sulfamethoxazole AdvReac Itching Verified 06/29/20 21:30 [From Bactrim] trimethoprim [From Bactrim] AdvReac Itching Verified 06/29/20 21:30 Physical Exam Vitals: Vital Signs Temp Pulse Pulse Resp BP BP Pulse Ox 06/30/20 09:00 98 F 98 20 162/78 98 06/30/20 03:40 97.5 F L 86 18 128/89 97 06/29/20 23:26 98.4 F 97 16 165/98 97 06/29/20 22:35 74 16 160/99 98 06/29/20 21:19 87 16 188/92 99 06/29/20 18:29 98.0 F 101 H 22 151/87 96 Intake and Output 06/29/20 06/30/20 06/30/20 22:59 06:59 14:59 Other: Voiding Method Bedside Commode Weight 99.79 kg 99.79 kg PHYSICAL EXAMINATION: Patient is lying in the bed comfortably, no acute distress, awake alert and oriented.. HEENT: Normocephalic. Neck is supple. Pupils reactive. Nostrils clear. Oral cavity is moist. Ears reveal no drainage. Neck reveals no JVD, carotid bruits, or thyromegaly. CHEST EXAMINATION: Trachea is central. Symmetrical expansion. Lung pacheco clear to auscultation and percussion. CARDIAC: Normal S1, S2 with no gallops. No murmurs ABDOMEN: Soft. Bowel sounds normal. No organomegaly. No abdominal bruits. Extremities: reveal no edema. No clubbing or cyanosis Neurologically awake, alert, oriented x3 with well-coordinated movements. No focal deficits noted Skin: No rash or skin lesions. Psychiatric: Coperative. Nonsuicidal, anxious Musculoskeletal: No joint swelling or deformity. Normal range of motion. Results CBC & Chem 7: 06/29/20 21:10 06/29/20 21:10 Labs: Abnormal Lab Results - Last 24 Hours (Table) 06/29/20 06/29/20 Range/Units 21:10 21:10 WBC 20.5 H (3.8-10.6) k/uL Neutrophils # 19.0 H (1.3-7.7) k/uL Glucose 148 H (74-99) mg/dL AST 37 H (14-36) U/L ALT 39 H (4-34) U/L Thrombosis Risk Factor Assmnt - DVT/VTE Prophylaxis DVT/VTE Prophylaxis: Pharmacologic Prophylaxis ordered - Choose All That Apply Any of the Below Risk Factors Present?: Yes Each Factor Represents 1 point: Obesity (BMI >25) Other Risk Factors: No Other congenital or acquired thrombophilia - If yes, enter type in comment: No Thrombosis Risk Factor Assessment Total Risk Factor Score: 1 Thrombosis Risk Factor Assessment Level: Low Risk Assessment and Plan Assessment: Intractable pain generalized and denied any focal symptoms. 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 Leukocytosis likely due to recent steroid use. Asthma not in exacerbation Fibromyalgia GERD Hypertension History of PCOS Interstitial cystitis Bilateral optic neuritis with visual problems history Generalized chronic pain History of seizures from MS last in 2017 History of smoking and marijuana and cocaine use Osteoarthritis DVT prophylaxis Plan: Patient will be continued on home pain medications and avoid IV narcotic pain medications. Symptomatic management and urology was consulted. Patient does not have any focal weakness at this time. Further recommendations based on the clinical course. Patient had previous admissions with similar complaints.
== END 2020-06-30 10:00 | disposition left against medical advice (07) ==
LOC: EC 18:28 → 1SOBS 21:58
PROVIDERS: ADMIT Internal Medicine; ATTEND Internal Medicine
DX: G89.29 Other chronic pain (principal); R11.2 Nausea with vomiting, unspecified; R19.7 Diarrhea, unspecified; G35 Multiple sclerosis; J45.909 Unspecified asthma, uncomplicated; M79.7 Fibromyalgia; K21.9 Gastro-esophageal reflux disease without esophagitis; I10 Essential (primary) hypertension; G43.909 Migraine, unspecified, not intractable, without status migrainosus; M19.90 Unspecified osteoarthritis, unspecified site; N30.10 Interstitial cystitis (chronic) without hematuria; E28.2 Polycystic ovarian syndrome; E55.9 Vitamin D deficiency, unspecified; H46.9 Unspecified optic neuritis; R00.0 Tachycardia, unspecified; F32.9 Major depressive disorder, single episode, unspecified; F41.9 Anxiety disorder, unspecified; F42.9 Obsessive-compulsive disorder, unspecified; E66.9 Obesity, unspecified; Z68.34 Body mass index [BMI] 34.0-34.9, adult; G40.909 Epilepsy, unspecified, not intractable, without status epilepticus; Z79.899 Other long term (current) drug therapy; Z79.891 Long term (current) use of opiate analgesic; Z79.52 Long term (current) use of systemic steroids; Z88.5 Allergy status to narcotic agent; Z88.0 Allergy status to penicillin; Z88.2 Allergy status to sulfonamides; Z88.8 Allergy status to other drugs, medicaments and biological substances; Z88.1 Allergy status to other antibiotic agents; Z91.040 Latex allergy status; Z87.01 Personal history of pneumonia (recurrent); Z87.440 Personal history of urinary (tract) infections; Z90.49 Acquired absence of other specified parts of digestive tract; Z16.24 Resistance to multiple antibiotics; F17.290 Nicotine dependence, other tobacco product, uncomplicated; Z87.891 Personal history of nicotine dependence; Z82.49 Family history of ischemic heart disease and other diseases of the circulatory system
CPT/HCPCS: 96376 ×2; 96361; 96374; 96375; 99285; 36415; 80053; 85025; G0378 ×2; J2405 ×2; J2270 ×2; J1170

== ENCOUNTER 2020-07-29 13:28 | Emergency (ER) | payer MEDICARE, OTHER ==
[2020-07-29 13:33] VITALS: RESP 18
[2020-07-29 14:08] LABS: Appearance,Urine Cloudy (Clear); Bacteria,Urine Moderate /hpf; Bilirubin,Urine Negative (Negative); Blood,Urine Moderate (Negative); Color,Urine Yellow; Glucose,Urine (UA) Negative (Negative); Ketones,Urine Negative (Negative); Leukocyte Esterase,Urine Large (Negative); Mucus,Urine Many /hpf; Nitrite,Urine Positive (Negative); Protein,Urine Trace (Negative); RBC,Urine 2 /hpf (0-5); Squamous Epithelial Cell,Urine 7 /hpf (0-4); Urobilinogen,Urine <2.0 mg/dL (<2.0); WBC,Urine 77 /hpf (0-5)
[2020-07-29] MEDS ORDERED: MORPHINE SULFATE 4 MG/ML SYRINGE IVP STA (14:29)
[2020-07-29] MEDS ORDERED: ONDANSETRON 4 MG/2 ML VIAL IVP STA (14:29)
[2020-07-29] MEDS ORDERED: SODIUM CHLORIDE 0.9% 1,000 ML IV STA (14:29)
[2020-07-29] MEDS ORDERED: NITROFURANTOIN MONOHYD/M-CRYST 100 MG CAP PO STA (14:31)
--- NOTE | 2020-07-29 14:32 | ED ---
Female Urogenital HPI - General Chief complaint: Urogenital Stated complaint: Poss Bladder infection Source: patient Mode of arrival: ambulatory Limitations: no limitations - History of Present Illness Initial comments: Patient is a 40 year old female with past medical history of MS who presents to the emergency room with reported suprapubic abdominal pain and dysuria. States that for the past 3 days she has had nausea, vomiting and chills. Denies any back or flank pain. No vaginal bleeding or discharge. Last menstrual cycle was 2 weeks ago. Denies concern for sexual transmitted infections. Diarrhea, constipation, black stools or hematochezia. No chest pain or shortness breath. Denies cough. No sick contacts with similar symptoms. Denies recent travel. No ingestion of tainted foods. No other alleviating, precipitating or modifying factors - Related Data Home Medications Medication Instructions Recorded Confirmed Ipratropium/Albuterol Sulfate 2 puff INHALATION RT-QID PRN 12/09/13 07/29/20 [Combivent Respimat Inhaler] Diazepam [Valium] 5 mg PO DAILY PRN 05/24/18 07/29/20 lisinopriL [Zestril] 10 mg PO DAILY 05/24/18 07/29/20 Dimethyl Fumarate [Tecfidera] 240 mg PO BID 09/20/18 07/29/20 Amitriptyline HCl [Elavil] 75 mg PO BID 06/13/19 07/29/20 Metaxalone [Skelaxin] 800 mg PO TID PRN 06/13/19 07/29/20 Ondansetron [Zofran ODT] 4 mg PO TID PRN 06/13/19 07/29/20 Albuterol Inhaler [Ventolin Hfa 2 puff INHALATION RT-QID PRN 03/04/20 07/29/20 Inhaler] Ipratropium-Albuterol Nebulize 3 ml INHALATION RT-DAILY PRN 03/04/20 07/29/20 [Duoneb 0.5 mg-3 mg/3 ml Soln] oxyCODONE-APAP 10-325MG [Percocet 1 tab PO BID PRN 03/04/20 07/29/20 10-325 mg] Dextroamphetamine/Amphetamine 15 mg PO BID 06/29/20 07/29/20 [Adderall] Ondansetron Inj 4mg/2ml 8 mg IV DAILY 06/29/20 07/29/20 Previous Rx's Medication Instructions Recorded Nitrofurantoin Monohyd/M-Cryst 100 mg PO Q12HR #14 cap 07/29/20 [Macrobid] Allergies Allergy/AdvReac Type Severity Reaction Status Date / Time amoxicillin [Amoxicillin] Allergy Severe Anaphylaxis, Verified 07/29/20 14:12 seizures ciprofloxacin [From Cipro] AdvReac Severe Rash/Hives, Verified 07/29/20 14:12 seizures codeine phosphate AdvReac Unknown Rash/Hives Verified 07/29/20 14:12 [From Tylenol-Codeine #3] cefuroxime axetil AdvReac Rash/Hives Verified 07/29/20 14:12 [From Ceftin] ketorolac [From Toradol] AdvReac Rash/Hives Verified 07/29/20 14:12 latex AdvReac Rash/Hives Verified 07/29/20 14:12 NSAIDS (Non-Steroidal AdvReac Rash/Hives/Lip Verified 07/29/20 14:12 Anti-Inflamma Swelling sulfamethoxazole AdvReac Itching Verified 07/29/20 14:12 [From Bactrim] trimethoprim [From Bactrim] AdvReac Itching Verified 07/29/20 14:12 Review of Systems ROS Statement: Those systems with pertinent positive or pertinent negative responses have been documented in the HPI. ROS Other: All systems not noted in ROS Statement are negative. Past Medical History Past Medical History: Asthma, Fibromyalgia, GERD/Reflux, Hypertension, Musculoskeletal Disorder, Neurologic Disorder, Pneumonia, Seizure Disorder Additional Past Medical History / Comment(s): Multiple Sclerosis, migraines, DJD, interstitial cystitis, UTI, PCOS, vit D deficiency, bilateral optic neuritis with visual problems, generalized chronic pain, numbness/tingling bilateral lower legs, tachycardia, c-diff 5-9-16, seizures from MS last one around 2017 History of Any Multi-Drug Resistant Organisms: C-DIFF Date of last positivie culture/infection: 2017 MDRO Source:: stool Past Surgical History: Cholecystectomy, Orthopedic Surgery Additional Past Surgical History / Comment(s): Lt shoulder rotator cuff repair 06/06/14, arthroscopic left knee 2000 & 2002, left shoulder reconstruction Past Anesthesia/Blood Transfusion Reactions: No Reported Reaction Additional Past Anesthesia/Blood Transfusion Reaction / Comment(s): Pt has never recieved blood. Past Psychological History: Anxiety, Depression, Depression Smoking Status: Never smoker Past Alcohol Use History: None Reported Past Drug Use History: Marijuana - Past Family History Mother Family Medical History: No Reported History Additional Family Medical History / Comment(s): mother is healthy Father Family Medical History: Hypertension General Exam Limitations: no limitations Course Vital Signs 07/29/20 07/29/20 07/29/20 13:31 15:20 17:04 Temperature 98.5 F 98.2 F Pulse Rate 93 81 84 Respiratory 18 18 18 Rate Blood Pressure 132/82 155/94 143/97 O2 Sat by Pulse 99 98 98 Oximetry Medical Decision Making - Medical Decision Making Upon arrival the patient was placed into room 22. A thorough history and physical exam was performed. Peripheral IV is established. Patient is requesting pain medication for her suprapubic pain. IV is established the patient is given a dose of Zofran. 4 mg of morphine was administered. Laboratory studies show white count 15.2. Urinalysis is positive for nitrates, moderate blood, 77 with blood cells and moderate bacteria. Patient was given a dose of Macrobid she does have multiple medication ALLERGIES. Results are discussed the patient. Did recommend treatment for cystitis. Prescription was sent to the pharmacy. Also recommended treatment with radium however the patien t states she noticed her insurance wont cover it so she is refusing it. Patient states that the morphine did not help and she is requesting Dilaudid by name. She is given a dose reevaluated and reports improvement in her symptoms. I did discuss diagnosis, differential and treatment options. This time the patient will be treated with Macrobid in the outpatient setting. She does have access to Zofran. She is to take the medications as directed and follow-up with her primary care doctor in 2-4 days. Return to the emergency room if her symptoms do not improve. She understood this and was discharged home in stable condition - Lab Data Result diagrams: 07/29/20 15:17 07/29/20 15:17 Lab Results 07/29/20 07/29/20 07/29/20 Range/Units 13:44 13:44 15:17 WBC 15.2 H (3.8-10.6) k/uL RBC 4.82 (3.80-5.40) m/uL Hgb 14.2 (11.4-16.0) gm/dL Hct 43.7 (34.0-46.0) % MCV 90.5 (80.0-100.0) fL MCH 29.5 (25.0-35.0) pg MCHC 32.6 (31.0-37.0) g/dL RDW 13.7 (11.5-15.5) % Plt Count 439 (150-450) k/uL MPV 8.2 Neutrophils % 70 % Lymphocytes % 19 % Monocytes % 5 % Eosinophils % 3 % Basophils % 1 % Neutrophils # 10.6 H (1.3-7.7) k/uL Lymphocytes # 2.9 (1.0-4.8) k/uL Monocytes # 0.8 (0-1.0) k/uL Eosinophils # 0.5 (0-0.7) k/uL Basophils # 0.1 (0-0.2) k/uL Sodium (137-145) mmol/L Potassium (3.5-5.1) mmol/L Chloride (98-107) mmol/L Carbon Dioxide (22-30) mmol/L Anion Gap mmol/L BUN (7-17) mg/dL Creatinine (0.52-1.04) mg/dL Est GFR (CKD-EPI)AfAm (>60 ml/min/1.73 sqM) Est GFR (CKD-EPI)NonAf (>60 ml/min/1.73 sqM) Glucose (74-99) mg/dL Calcium (8.4-10.2) mg/dL Total Bilirubin (0.2-1.3) mg/dL AST (14-36) U/L ALT (4-34) U/L Alkaline Phosphatase (38-126) U/L Total Protein (6.3-8.2) g/dL Albumin (3.5-5.0) g/dL Lipase (23-300) U/L Urine Color Yellow Urine Appearance Cloudy H (Clear) Urine pH 6.0 (5.0-8.0) Ur Specific [place] 1.020 (1.001-1.035) Urine Protein Trace H (Negative) Urine Glucose (UA) Negative (Negative) Urine Ketones Negative (Negative) Urine Blood Moderate H (Negative) Urine Nitrite Positive H (Negative) Urine Bilirubin Negative (Negative) Urine Urobilinogen <2.0 (<2.0) mg/dL Ur Leukocyte Esterase Large H (Negative) Urine RBC 2 (0-5) /hpf Urine WBC 77 H (0-5) /hpf Ur Squamous Epith Cells 7 H (0-4) /hpf Urine Bacteria Moderate H (None) /hpf Urine Mucus Many H (None) /hpf Urine HCG, Qual Not Detected (Not Detectd) 07/29/20 Range/Units 15:17 WBC (3.8-10.6) k/uL RBC (3.80-5.40) m/uL Hgb (11.4-16.0) gm/dL Hct (34.0-46.0) % MCV (80.0-100.0) fL MCH (25.0-35.0) pg MCHC (31.0-37.0) g/dL RDW (11.5-15.5) % Plt Count (150-450) k/uL MPV Neutrophils % % Lymphocytes % % Monocytes % % Eosinophils % % Basophils % % Neutrophils # (1.3-7.7) k/uL Lymphocytes # (1.0-4.8) k/uL Monocytes # (0-1.0) k/uL Eosinophils # (0-0.7) k/uL Basophils # (0-0.2) k/uL Sodium 137 (137-145) mmol/L Potassium 4.7 (3.5-5.1) mmol/L Chloride 105 (98-107) mmol/L Carbon Dioxide 27 (22-30) mmol/L Anion Gap 5 mmol/L BUN 8 (7-17) mg/dL Creatinine 0.60 (0.52-1.04) mg/dL Est GFR (CKD-EPI)AfAm >90 (>60 ml/min/1.73 sqM) Est GFR (CKD-EPI)NonAf >90 (>60 ml/min/1.73 sqM) Glucose 83 (74-99) mg/dL Calcium 9.6 (8.4-10.2) mg/dL Total Bilirubin 0.4 (0.2-1.3) mg/dL AST 33 (14-36) U/L ALT 38 H (4-34) U/L Alkaline Phosphatase 43 (38-126) U/L Total Protein 6.7 (6.3-8.2) g/dL Albumin 4.0 (3.5-5.0) g/dL Lipase 79 (23-300) U/L Urine Color Urine Appearance (Clear) Urine pH (5.0-8.0) Ur Specific [place] (1.001-1.035) Urine Protein (Negative) Urine Glucose (UA) (Negative) Urine Ketones (Negative) Urine Blood (Negative) Urine Nitrite (Negative) Urine Bilirubin (Negative) Urine Urobilinogen (<2.0) mg/dL Ur Leukocyte Esterase (Negative) Urine RBC (0-5) /hpf Urine WBC (0-5) /hpf Ur Squamous Epith Cells (0-4) /hpf Urine Bacteria (None) /hpf Urine Mucus (None) /hpf Urine HCG, Qual (Not Detectd) Disposition Clinical Impression: Cystitis, UTI (urinary tract infection) Disposition: HOME SELF-CARE Condition: Stable Instructions (If sedation given, give patient instructions): Urinary Tract Infection in Women (ED) Additional Instructions: Please follow up with your primary care doctor in 2-4 days. Return to the emergency room for any new or worsening symptoms Prescriptions: Nitrofurantoin Monohyd/M-Cryst [Macrobid] 100 mg PO Q12HR #14 cap Is patient prescribed a controlled substance at d/c from ED?: No Referrals: None,Stated [Primary Care Provider] - 1-2 days Time of Disposition: 16:57
[2020-07-29 15:40] LABS: Basophils # (A) 0.1 k/uL (0-0.2); Basophils % (A) 1 %; Eosinophils # (A) 0.5 k/uL (0-0.7); Eosinophils % (A) 3 %; HCT 43.7 % (34.0-46.0); HGB 14.2 gm/dL (11.4-16.0); Lymphocytes # (A) 2.9 k/uL (1.0-4.8); Lymphocytes % (A) 19 %; MCH 29.5 pg (25.0-35.0); MCHC 32.6 g/dL (31.0-37.0); MCV 90.5 fL (80.0-100.0); Mean Platelet Volume 8.2; Monocytes # (A) 0.8 k/uL (0-1.0); Monocytes % (A) 5 %; Neutrophils # (A) 10.6 k/uL (1.3-7.7); Neutrophils % (A) 70 %; Platelet Count 439 k/uL (150-450); RBC 4.82 m/uL (3.80-5.40); RDW 13.7 % (11.5-15.5); WBC 15.2 k/uL (3.8-10.6)
[2020-07-29 15:43] LABS: ALT 38 U/L (4-34); AST 33 U/L (14-36); African American GFR (CKD) >90 (>60 ml/min/1.73 sqM); Alkaline Phosphatase 43 U/L (38-126); Anion Gap 5 mmol/L; Blood Urea Nitrogen 8 mg/dL (7-17); Calcium 9.6 mg/dL (8.4-10.2); Carbon Dioxide 27 mmol/L (22-30); Chloride 105 mmol/L (98-107); Glucose 83 mg/dL (74-99); Lipase 79 U/L (23-300); Non-African American GFR(CKD) >90 (>60 ml/min/1.73 sqM); Potassium 4.7 mmol/L (3.5-5.1); Sodium 137 mmol/L (137-145); Total Bilirubin 0.4 mg/dL (0.2-1.3); Total Protein 6.7 g/dL (6.3-8.2)
[2020-07-29] MEDS ORDERED: METOCLOPRAMIDE 5 MG/ML 2 ML VIAL IVP STA (16:53)
[2020-07-29] MEDS ORDERED: HYDROmorphone 1 MG/ML 1 ML SYRINGE IVP STA (16:53)
[2020-07-29 17:05] VITALS: BP 143/97; PULSE 84; TEMP 98.2
== END 2020-07-29 17:13 | disposition home or self-care (01) ==
LOC: EC 13:28
DX: N30.90 Cystitis, unspecified without hematuria (principal); J45.909 Unspecified asthma, uncomplicated; I10 Essential (primary) hypertension; F41.9 Anxiety disorder, unspecified; F32.9 Major depressive disorder, single episode, unspecified; Z90.49 Acquired absence of other specified parts of digestive tract; Z79.899 Other long term (current) drug therapy; Z88.0 Allergy status to penicillin; Z88.1 Allergy status to other antibiotic agents; Z88.5 Allergy status to narcotic agent; Z88.6 Allergy status to analgesic agent; Z88.8 Allergy status to other drugs, medicaments and biological substances; Z91.040 Latex allergy status; Z88.2 Allergy status to sulfonamides
CPT/HCPCS: 36415; 80053; 83690; 85025; 81001; 81025; 87086; 99284; 96374; 96375 ×3; 96361 ×2; J2270; J2765; J2405; J1170

== ENCOUNTER 2020-08-05 16:21 | Emergency (ER) | payer MEDICARE, OTHER ==
[2020-08-05 16:25] VITALS: TEMP 98.6
[2020-08-05] MEDS ORDERED: SODIUM CHLORIDE 0.9% 1,000 ML IV ONE (16:52)
[2020-08-05] MEDS ORDERED: NITROGLYCERIN SL TABS 0.4 MG TAB SUBLINGUAL STA (16:52)
[2020-08-05] MEDS ORDERED: ERTAPENEM 1 GM in SODIUM CHLORIDE 0.9% 50 ML IVPB STA (17:00)
--- NOTE | 2020-08-05 17:47 | ED ---
Chest Pain HPI - General Chief Complaint: Chest Pain Stated Complaint: chest pain Source: patient Mode of arrival: wheelchair Limitations: no limitations - History of Present Illness Initial Comments: Patient is a 40-year-old female with past medical history of fibromyalgia, hypertension, MS who presents to the emergency department with reported chest pain, nausea and suprapubic abdominal pain. Patient was seen in the emergency department on the for her complaint of suprapubic abdominal pain. She was diagnosed with a urinary tract infection and sent home on Macrobid. Reports that she has been taking the medications as directed however continues to have a suprapubic abdominal pain. Also reports to chills, nausea and vomiting. Subsequently the patient states she has also developed chest pain. Reports that it is left-sided, intermittent. Denies any provocative factors. Does admit that it makes her feel shortness of breath. Denies fevers, chills or cough. No sick contacts. No recent travel. Denies history of DVT or PE. No calf pain or swelling. No previous history of cardiac disease. No family history of pr emature cardiac . Patient has not attempted to take any medications at home for her symptoms. No concern for . No other alleviating, precipitating or modifying factors - Related Data Home Medications Medication Instructions Recorded Confirmed Ipratropium/Albuterol Sulfate 2 puff INHALATION RT-QID PRN 12/09/13 07/29/20 [Combivent Respimat Inhaler] Diazepam [Valium] 5 mg PO DAILY PRN 05/24/18 07/29/20 lisinopriL [Zestril] 10 mg PO DAILY 05/24/18 07/29/20 Dimethyl Fumarate [Tecfidera] 240 mg PO BID 09/20/18 07/29/20 Amitriptyline HCl [Elavil] 75 mg PO BID 06/13/19 07/29/20 Metaxalone [Skelaxin] 800 mg PO TID PRN 06/13/19 07/29/20 Ondansetron [Zofran ODT] 4 mg PO TID PRN 06/13/19 07/29/20 Albuterol Inhaler [Ventolin Hfa 2 puff INHALATION RT-QID PRN 03/04/20 07/29/20 Inhaler] Ipratropium-Albuterol Nebulize 3 ml INHALATION RT-DAILY PRN 03/04/20 07/29/20 [Duoneb 0.5 mg-3 mg/3 ml Soln] oxyCODONE-APAP 10-325MG [Percocet 1 tab PO BID PRN 03/04/20 07/29/20 10-325 mg] Dextroamphetamine/Amphetamine 15 mg PO BID 06/29/20 07/29/20 [Adderall] Ondansetron Inj 4mg/2ml 8 mg IV DAILY 06/29/20 07/29/20 Previous Rx's Medication Instructions Recorded Nitrofurantoin Monohyd/M-Cryst 100 mg PO Q12HR #14 cap 07/29/20 [Macrobid] Allergies Allergy/AdvReac Type Severity Reaction Status Date / Time amoxicillin [Amoxicillin] Allergy Severe Anaphylaxis, Verified 07/29/20 14:12 seizures ciprofloxacin [From Cipro] AdvReac Severe Rash/Hives, Verified 07/29/20 14:12 seizures codeine phosphate AdvReac Unknown Rash/Hives Verified 07/29/20 14:12 [From Tylenol-Codeine #3] cefuroxime axetil AdvReac Rash/Hives Verified 07/29/20 14:12 [From Ceftin] ketorolac [From Toradol] AdvReac Rash/Hives Verified 07/29/20 14:12 latex AdvReac Rash/Hives Verified 07/29/20 14:12 NSAIDS (Non-Steroidal AdvReac Rash/Hives/Lip Verified 07/29/20 14:12 Anti-Inflamma Swelling sulfamethoxazole AdvReac Itching Verified 07/29/20 14:12 [From Bactrim] trimethoprim [From Bactrim] AdvReac Itching Verified 07/29/20 14:12 Review of Systems ROS Statement: Those systems with pertinent positive or pertinent negative responses have been documented in the HPI. ROS Other: All systems not noted in ROS Statement are negative. EKG Findings - EKG Comments: EKG Findings:: EKG demonstrates a normal sinus rhythm with a ventricular rate of 81. WA interval 114. QRS 76. QTC of 415. No acute ST segment elevations or depressions Past Medical History Past Medical History: Asthma, Fibromyalgia, GERD/Reflux, Hypertension, Musculoskeletal Disorder, Neurologic Disorder, Pneumonia, Seizure Disorder Additional Past Medical History / Comment(s): Multiple Sclerosis, migraines, DJD, interstitial cystitis, UTI, PCOS, vit D deficiency, bilateral optic neuritis with visual problems, generalized chronic pain, numbness/tingling bilateral lower legs, tachycardia, c-diff 5-9-16, seizures from MS last one around 2017 History of Any Multi-Drug Resistant Organisms: C-DIFF Date of last positivie culture/infection: 2017 MDRO Source:: stool Past Surgical History: Cholecystectomy, Orthopedic Surgery Additional Past Surgical History / Comment(s): Lt shoulder rotator cuff repair 06/06/14, arthroscopic left knee 2000 & 2002, left shoulder reconstruction Past Anesthesia/Blood Transfusion Reactions: No Reported Reaction Additional Past Anesthesia/Blood Transfusion Reaction / Comment(s): Pt has never recieved blood. Past Psychological History: Anxiety, Depression, Depression Smoking Status: Never smoker Past Alcohol Use History: None Reported Past Drug Use History: Marijuana - Past Family History Mother Family Medical History: No Reported History Additional Family Medical History / Comment(s): mother is healthy Father Family Medical History: Hypertension General Exam Limitations: no limitations General appearance: alert, in no apparent distress Head exam: Present: atraumatic, normocephalic, normal inspection Eye exam: Present: normal appearance, PERRL, EOMI. Absent: scleral icterus, conjunctival injection, periorbital swelling ENT exam: Present: normal exam, mucous membranes moist Neck exam: Present: normal inspection. Absent: tenderness, meningismus, lymphadenopathy Respiratory exam: Present: normal lung sounds bilaterally. Absent: respiratory distress, wheezes, rales, rhonchi, stridor Cardiovascular Exam: Present: regular rate, normal rhythm, normal heart sounds. Absent: systolic murmur, diastolic murmur, rubs, gallop, clicks GI/Abdominal exam: Present: soft, normal bowel sounds. Absent: distended, tenderness, guarding, rebound, rigid Extremities exam: Present: normal inspection, full ROM, normal capillary refill. Absent: tenderness, pedal edema, joint swelling, calf tenderness Back exam: Present: normal inspection Neurological exam: Present: alert, oriented X3, CN II-XII intact Psychiatric exam: Present: normal affect, normal mood Skin exam: Present: warm, dry, intact, normal color. Absent: rash Course Vital Signs 08/05/20 08/05/20 08/05/20 16:23 18:13 20:41 Temperature 98.6 F Pulse Rate 92 90 88 Respiratory 20 18 20 Rate Blood Pressure 159/96 130/102 147/97 O2 Sat by Pulse 98 97 100 Oximetry - Reevaluation(s) Reevaluation #1: 08/05/20 21:19 [facility] refused transfer Chest Pain MDM - [facility] Upon arrival patient is placed into room 23. A thorough history and physical exam was performed. Peripheral IV was established. Patient was given a sublingual nitro. She was given 4 mg of Zofran for nausea and a liter bolus of normal saline. Laboratory studies were conducted. I was called back into the room as the patient is requesting narcotic pain medications. She states that she needs IV Dilaudid due to her significant pain. Review the patient's chart demonstrates that she has been seen in the emergency room and several times for different complaints and each time request IV Dilaudid. Patient has been diagnosed with narcotic seeking behavior and during hospitalization is instructed that the patient is to not receive narcotic medication unless necessary. I inform the patient that I would like to obtain a chest x-ray and a CT of her abdomen and pelvis. Patient is refusing to participate in any studies until she is prescribed pain medications. I did give her 1 dose of Dilaudid in order to obtain my workup. I also empirically gave her a dose of antibiotics that she does have multiple antibiotic ALLERGIES and the patient is reporting to continued symptoms while on Macrobid. I reviewed the patient's laboratory studies which demonstrated a white count of 18.4. D-dimer 0.19. Troponin is negative. Urinalysis has small blood however no bacteria, red blood cells or white blood cells. Chest x-ray demonstrates no acute process. CT of the patient's abdomen and pelvis demonstrates fatty infiltration of the liver. Complex density in the vaginal vault which could be some blood clots and debris. This information is relayed to the patient. I discussed diagnosis and treatment options. Patient was cleared for discharge home. Discharge orders were placed. I was then called back into the room where the patient was repor ting that she was having an acute visual disturbance to her right eye. States that this is common for her MS exacerbations. She is once again requesting IV Dilaudid. I informed her that I would give her a dose of Solu-Medrol for what his concern for an exacerbation of her MS. Visual acuity is attempted however the patient states she has no vision out of her right eye. We do not have neurology on staff at our hospital. I did call discuss the case with [facility] who is refusing transfer as they state that the patient's neurologist does not come to their facility. I then called and discussed the case with [facility]. Accepting physician is Dr. Faustin. Patient awaiting EMS transport Disposition Clinical Impression: Opiate dependence, Drug-seeking behavior, Chest pain, Multiple sclerosis Disposition: OTHER INSTITUTION NOT DEFINED Condition: Stable Instructions (If sedation given, give patient instructions): Chest Pain (ED) Additional Instructions: Please call your neurologist. Return to the ED for any new or worsening symptom s. Is patient prescribed a controlled substance at d/c from ED?: No Referrals: None,Stated [Primary Care Provider] - 1-2 days Sj Olivares DO [REFERRING] - 1-2 days Time of Disposition: 21:04 - Out of Hospital Transfer - Req. Specs Out of Hospital Transfer - Requested Specifics: Other Emergency Center ([facility])
[2020-08-05] MEDS ORDERED: ONDANSETRON 4 MG/2 ML VIAL IVP STA (17:57)
[2020-08-05 18:04] LABS: Basophils # (A) 0.1 k/uL (0-0.2); Basophils % (A) 1 %; Eosinophils # (A) 0.6 k/uL (0-0.7); Eosinophils % (A) 3 %; HCT 41.2 % (34.0-46.0); Lymphocytes % (A) 22 %; MCH 30.2 pg (25.0-35.0); MCHC 34.1 g/dL (31.0-37.0); MCV 88.4 fL (80.0-100.0); Mean Platelet Volume 7.5; Monocytes # (A) 0.8 k/uL (0-1.0); Monocytes % (A) 4 %; Neutrophils # (A) 12.6 k/uL (1.3-7.7); Neutrophils % (A) 69 %; Platelet Count 401 k/uL (150-450); RBC 4.65 m/uL (3.80-5.40); WBC 18.4 k/uL (3.8-10.6)
[2020-08-05 18:11] LABS: ALT 27 U/L (4-34); AST 24 U/L (14-36); African American GFR (CKD) >90 (>60 ml/min/1.73 sqM); Albumin 4.1 g/dL (3.5-5.0); Alkaline Phosphatase 55 U/L (38-126); Anion Gap 7 mmol/L; Blood Urea Nitrogen 10 mg/dL (7-17); Calcium 9.9 mg/dL (8.4-10.2); Carbon Dioxide 22 mmol/L (22-30); Chloride 108 mmol/L (98-107); Glucose 85 mg/dL (74-99); Magnesium 1.7 mg/dL (1.6-2.3); Non-African American GFR(CKD) >90 (>60 ml/min/1.73 sqM); Potassium 4.1 mmol/L (3.5-5.1); Sodium 137 mmol/L (137-145); Total Bilirubin 0.3 mg/dL (0.2-1.3); Total Protein 6.8 g/dL (6.3-8.2)
[2020-08-05 18:18] LABS: Appearance,Urine Clear (Clear); Bilirubin,Urine Negative (Negative); Blood,Urine Small (Negative); Color,Urine Yellow; Glucose,Urine (UA) Negative (Negative); Ketones,Urine Negative (Negative); Leukocyte Esterase,Urine Negative (Negative); Mucus,Urine Rare /hpf; Nitrite,Urine Negative (Negative); Protein,Urine Negative (Negative); RBC,Urine <1 /hpf (0-5); Specific Gravity,Urine 1.017 (1.001-1.035); Squamous Epithelial Cell,Urine 3 /hpf (0-4); Urobilinogen,Urine <2.0 mg/dL (<2.0); WBC,Urine 2 /hpf (0-5)
[2020-08-05 18:24] LABS: D-Dimer 0.19 mg/L FEU (<0.60); Partial Thromboplastin Time 22.7 sec (22.0-30.0)
[2020-08-05] MEDS ORDERED: HYDROmorphone 0.5 MG/0.5 ML SYRINGE IM STA (19:04)
--- NOTE | 2020-08-05 19:34 | XR ---
EXAMINATION TYPE: XR chest 2V DATE OF EXAM: 08/05/2020 COMPARISON: 03/15/2019 HISTORY: Leg pain arm pain TECHNIQUE: FINDINGS: Heart and mediastinum are normal. Lungs are clear. Diaphragm is normal. Bony thorax appears normal. IMPRESSION: Normal chest. No change.
--- NOTE | 2020-08-05 20:26 | CT ---
EXAMINATION TYPE: CT abdomen pelvis w con DATE OF EXAM: 08/05/2020 COMPARISON: 05/10/2017 HISTORY: Pelvic pain. Recent UTI. CT DLP: 2465.9 mGycm Automated exposure control for dose reduction was used. CONTRAST: Performed with IV Contrast, patient injected with 100 mL of Isovue 300. Lung bases are clear. There is no pleural effusion. Heart size is normal. There is no pericardial eff usion. There is fatty infiltration of the liver. Spleen is intact. Stomach is intact. There is no [place] creatic mass. There are clips from cholecystectomy. There is no adrenal mass. Kidneys show satisfactory contrast opacification. There is no hydronephrosi s. Ureters are not dilated. There is no retroperitoneal adenopathy. Bladder distends smoothly. There is no inguinal hernia. Uterus is anteverted. The cul-de-sac is clear. There is some mixed density in the vaginal vault with a few air bubbles. This measures approximately 6 x 1.5 cm. There is short appendix appears normal. There is no mesenteric edema. There is no ascites or free air . There is no bowel obstruction. Lumbar vertebra have normal alignment. There is no compression fracture. Disc spaces are fairly ilan l. Sacroiliac joints are normal. Bony pelvis is intact. IMPRESSION: Mild fatty infiltration of the liver. No dilated ducts. No evidence of renal mass or obstruction. Complex density in the vaginal vault could be some blood clot and debris. This appears new compared t o old exam.
[2020-08-05 22:20] VITALS: BP 148/93; RESP 16
[2020-08-05 22:22] VITALS: PULSE 71
[2020-08-05] MEDS: methylPREDNISolone SOD SUCCI 125 MG/2 ML VIAL IV STA ×2 (22:25→22:26)
== END 2020-08-05 22:33 | disposition other institution (70) ==
LOC: EC 16:21
DX: G35 Multiple sclerosis (principal); F11.20 Opioid dependence, uncomplicated; Z76.5 Malingerer [conscious simulation]; K76.0 Fatty (change of) liver, not elsewhere classified; R07.9 Chest pain, unspecified; J45.909 Unspecified asthma, uncomplicated; M79.7 Fibromyalgia; K21.9 Gastro-esophageal reflux disease without esophagitis; I10 Essential (primary) hypertension; G40.909 Epilepsy, unspecified, not intractable, without status epilepticus; G43.909 Migraine, unspecified, not intractable, without status migrainosus; F41.9 Anxiety disorder, unspecified; G89.29 Other chronic pain; Z79.51 Long term (current) use of inhaled steroids; Z79.899 Other long term (current) drug therapy; Z88.0 Allergy status to penicillin; Z88.1 Allergy status to other antibiotic agents; Z88.5 Allergy status to narcotic agent; Z88.6 Allergy status to analgesic agent; Z88.2 Allergy status to sulfonamides; Z91.040 Latex allergy status
CPT/HCPCS: 36415; 93005; 85379; 83880; 80053; 83735; 84484; 85025; 85610; 85730; 81001; 71046; 74177; 99285; 96365; 96375; 96372; 96361 ×4; J2405; J1335; J1170; Q9967

== ENCOUNTER → 2020-08-16 | Outpatient (CLI) | payer MEDICARE, OTHER ==
[2020-08-16 10:30] VITALS: BP 134/90; PULSE 113; RESP 18; TEMP 97.6
--- NOTE | 2020-08-16 12:02 | P.HPOB ---
History of Present Illness H&P Date: 08/16/20 Chief Complaint: The patient is here for her routine gynecologic exam. This is a 40-year-old with an LMP of 07/15/2020. She is here to establish with this office. She was told that she needs to have her Pap smear and gynecologic exam prior to starting on a new medication for her multiple sclerosis. It has been about 2 years since her last pelvic exam. She has been having unprotected intercourse for 12 years since the of her child she has not wanted to actively prevent but is also declining infertility testing and treatment. In speaking about getting she states "if it happens it happens." She states she has a history of PCOS. Her menstrual periods are fairly regular monthly and it can vary by about 1 week. She states she has some facial hair growth on her chin in one spot that seemed to be better with control pills. She was wondering if she is a candidate to take control pills for the facial hair growth. She states she just recently got out of the hospital for angina. Her menstrual periods can be heavy and painful about every other month. Her menses are fairly regular every month lasting 3-5 days. Every other month a 10 to be heavier and more painful for 2 days. On the heavy days she has to change her protection up to every 1/2-2 hours. Review of Systems She has lost about 50 pounds over the past year and attributes this to eating less and increasing her walking. She denies respiratory or GI problems. Cardiac: She recently was hospitalized for chest pain and angina and was discharged from the hospital during this past week. Past Medical History Past Medical History: Asthma, Coronary Artery Disease (CAD), Fibromyalgia, GERD/Reflux, Hypertension, Musculoskeletal Disorder, Neurologic Disorder, Pneumonia, Seizure Disorder Additional Past Medical History / Comment(s): Multiple Sclerosis, angina, migraines, DJD, interstitial cystitis, UTI, PCOS, vit D deficiency, bilateral optic neuritis with visual problems, generalized chronic pain, numbness/tingling bilateral lower legs, tachycardia, c-diff 5-9-16, seizures from MS last one around 2017. ADHD. 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 PCOS. History of Any Multi-Drug Resistant Organisms: C-DIFF Date of last positivie culture/infection: 2016 MDRO Source:: stool Past Surgical History: Cholecystectomy, Orthopedic Surgery Additional Past Surgical History / Comment(s): Lt shoulder rotator cuff repair 06/06/14, arthroscopic left knee 2000 & 2002, left shoulder reconstruction Past Anesthesia/Blood Transfusion Reactions: No Reported Reaction Additional Past Anesthesia/Blood Transfusion Reaction / Comment(s): Pt has never recieved blood. Past Psychological History: Anxiety, Bipolar, Depression Additional Psychological History / Comment(s): OCD Smoking Status: Former smoker (Quit smoking in 2017) Past Alcohol Use History: None Reported Additional Past Alcohol Use History / Comment(s): STARTED SMOKING AGE 17 and quit in 2017 but is using vapor cigarette somedays. Patient denies any medical marijuana, marijuana, street drug use. She denies any alcohol use or abuse. Patient is and lives with her and one child. No recent travel. Patient is on disability. Additional Drug Use History / Comment(s): Patient reports past history of cocaine, inhaling heroin (no IV use of heroin per patient), marijuana and pain pills not prescribed to patient. Additional History: She is and is considered disabled. 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 - Past Family History Mother Family Medical History: No Reported History, Hearing Disorder / Deafness Additional Family Medical History / Comment(s): mother is healthy. Maternal grandmother had uterine cancer. Maternal grandfather had bladder cancer. Father Family Medical History: Hypertension Additional Family Medical History / Comment(s): Paternal grandfather had an [place]. Medications and Allergies Home Medications Medication Instructions Recorded Confirmed Type Ipratropium/Albuterol Sulfate 2 puff INHALATION RT-QID PRN 12/09/13 08/16/20 History [Combivent Respimat Inhaler] Diazepam [Valium] 5 mg PO DAILY PRN 05/24/18 08/16/20 History lisinopriL [Zestril] 40 mg PO DAILY 05/24/18 08/16/20 History Dimethyl Fumarate [Tecfidera] 240 mg PO BID 09/20/18 08/16/20 History Amitriptyline HCl [Elavil] 75 mg PO BID 06/13/19 08/16/20 History Metaxalone [Skelaxin] 800 mg PO TID PRN 06/13/19 08/16/20 History Ondansetron [Zofran ODT] 4 mg PO TID PRN 06/13/19 08/16/20 History Albuterol Inhaler [Ventolin Hfa 2 puff INHALATION RT-QID PRN 03/04/20 08/16/20 History Inhaler] Ipratropium-Albuterol Nebulize 3 ml INHALATION RT-DAILY PRN 03/04/20 08/16/20 History [Duoneb 0.5 mg-3 mg/3 ml Soln] oxyCODONE-APAP 10-325MG [Percocet 1 tab PO BID PRN 03/04/20 08/16/20 History 10-325 mg] Dextroamphetamine/Amphetamine 15 mg PO BID 06/29/20 08/16/20 History [Adderall] Allergies Allergy/AdvReac Type Severity Reaction Status Date / Time amoxicillin [Amoxicillin] Allergy Severe Anaphylaxis, Verified 08/16/20 10:30 seizures bee venom protein (honey bee) Allergy Anaphylaxis Unverified 08/16/20 10:30 ciprofloxacin [From Cipro] AdvReac Severe Rash/Hives, Verified 08/16/20 10:30 seizures codeine phosphate AdvReac Unknown Rash/Hives Verified 08/16/20 10:30 [From Tylenol-Codeine #3] cefuroxime axetil AdvReac Rash/Hives Verified 08/16/20 10:30 [From Ceftin] ketorolac [From Toradol] AdvReac Rash/Hives Verified 08/16/20 10:30 latex AdvReac Rash/Hives Verified 08/16/20 10:30 NSAIDS (Non-Steroidal AdvReac Rash/Hives/Lip Verified 08/16/20 10:30 Anti-Inflamma Swelling sulfamethoxazole AdvReac Itching Verified 08/16/20 10:30 [From Bactrim] trimethoprim [From Bactrim] AdvReac Itching Verified 08/16/20 10:30 Exam Vital Signs Temp Pulse Resp BP Pulse Ox 08/16/20 10:24 97.6 F 113 H 18 134/90 98 Intake and Output 08/15/20 08/16/20 08/16/20 22:59 06:59 14:59 Other: Weight 122.47 kg Height 5 feet 6 inches, weight 270 pounds, BMI 43.6. This is a well-developed well-nourished obese white female who is alert and oriented times 3 in no acute distress. HEENT: Within normal limits. NECK: Supple without mass or thyromegaly. CHEST AND LUNGS: Clear to auscultation. HEART: Regular rate and rhythm. BREASTS: Are without mass or discharge. AXILLARY EXAM: Negative for adenopathy. BACK: Negative for CVA tenderness. ABDOMEN: Soft, obese, nontender, without palpable masses. PELVIC EXAM: Normal external genitalia. Cervix and vagina appear normal. There is a small amount of menstrual type blood at the cervix. She states she believes she is due to start her menstrual period. There is no unusual discharge. There is no evidence of prolapse. The uterus is midposition, nongravid size and nontender. There are no palpable adnexal masses or tenderness. Bimanual examination is somewhat limited secondary to her size. RECTAL EXAM: negative for mass or tenderness. EXTREMITIES: Nontender. IMPRESSION: 1. 40-year-old perimenopausal female with unremarkable gynecologic exam who has been having unprotected intercourse for 12 years and is not actively trying to get or actively trying to prevent . 2. Mild hypermenorrhea and dysmenorrhea without any significant physical findings at this time. 3. History of polycystic ovarian syndrome. Her main complaint from this is facial hair growth on her chin in 1 small area. 4. Multiple medical problems including multiple sclerosis, hypertension and recent angina. 5. Intolerance to NSAIDs type medications. PLAN: 1. Pap smear cotest was performed. 2. Self breast awareness was discussed with the patient. 3. We have had a long discussion regarding her PCOS. I do not believe she is a good candidate for oral contraception because of her medical problems including chronic hypertension and recent angina. We have discussed other options for the facial hair growth including spironolactone, electrolysis and laser treatment. 4. We have discussed various options for her hypermenorrhea and dysmenorrhea including Mirena IUD, meclofenamate sodium and endometrial ablation. She states she cannot take NSAIDs medications so she will not be started on meclofenamate sodium. She is also declining any type of IUD. She states she will call to consider surgical options if things are getting worse. She also is declining any form of testing or treatment for infertility. We have discussed increased risk of if she were to get including increased risk for chromosomal defects because of her advanced maternal age. I have also recommended that she take a multivitamin with folic acid daily since she is having unprotected intercourse. She will call if she would like to proceed with any other form of control or if she desires referral for infertility. I have recommended using condoms if she does not want to get . 5. She was advised to return in one year for her annual well woman exam and as needed.
--- NOTE | 2020-08-22 11:35 | P.PN ---
Progress Note - Text Progress Note Date: 08/22/20 OUTPATIENT FOLLOW-UP NOTE TEST(S)/RESULTS: Pap smear cotest done on 08/16/2020 was negative for the Pap and negative for the high-risk HPV testing. Fungal organisms were present on the Pap smear. METHOD OF NOTIFICATION: The patient was notified by phone. PATIENT COMMENTS: She denies any yeast infection symptoms including vaginal discharge and vaginal or vulvar pruritus. DIAGNOSIS: Negative Pap smear cotest. No vaginitis symptoms. DISCUSSION: The patient was instructed to call if she develops yeast infection type symptoms including vaginal discharge or pruritus. PLAN: She was advised to return in one year for her annual well woman exam.
== END | disposition home or self-care (01) ==
LOC: WWCWWP 10:09
PROVIDERS: ATTEND Obstetrics & Gynecology
DX: Z53.9 Procedure and treatment not carried out, unspecified reason (principal)

== ENCOUNTER 2020-09-29 09:07 | Emergency (ER) | payer MEDICARE, OTHER ==
[2020-09-29] MEDS ORDERED: LORazepam 2 MG/ML INJ IV STA (09:30)
[2020-09-29] MEDS ORDERED: HYDROmorphone 0.5 MG/0.5 ML SYRINGE IVP STA (09:30)
[2020-09-29] MEDS ORDERED: lisinopriL 20 MG TAB PO STA (09:31)
[2020-09-29 09:54] LABS: Appearance,Urine Cloudy (Clear); Bacteria,Urine Few /hpf; Bilirubin,Urine Negative (Negative); Blood,Urine Small (Negative); Color,Urine Light Yellow; Glucose,Urine (UA) Negative (Negative); Ketones,Urine Negative (Negative); Leukocyte Esterase,Urine Large (Negative); Nitrite,Urine Positive (Negative); Protein,Urine Trace (Negative); RBC,Urine 6 /hpf (0-5); Specific Gravity,Urine 1.006 (1.001-1.035); Squamous Epithelial Cell,Urine 4 /hpf (0-4); Urobilinogen,Urine <2.0 mg/dL (<2.0); WBC,Urine 173 /hpf (0-5)
[2020-09-29] MEDS ORDERED: METOCLOPRAMIDE 5 MG/ML 2 ML VIAL IVP STA (09:54)
[2020-09-29] MEDS ORDERED: NITROFURANTOIN MONOHYD/M-CRYST 100 MG CAP PO STA ×2 (10:19→10:21)
--- NOTE | 2020-09-29 10:37 | ED ---
Recheck HPI - General Chief Complaint: Recheck/Abnormal Lab/Rx Stated Complaint: High BP Time Seen by Provider: 09/29/20 09:16 Source: patient Mode of arrival: wheelchair Limitations: no limitations - History of Present Illness Initial Comments: 40-year-old female past history of MS, recurrent UTIs presenting today for chief complaint of elevated blood pressure reading. She states was over the infusion center and was told she needed to come to the ER for elevated blood pressure. Patient states that she had no symptoms or chest pain shortness of breath lightheadedness dizziness she states she did have some vomiting with the steroid infusion which is not unusual. She denies any abdominal pain back pain she states that she has had some weakness in the right lower leg beyond the knee but this is her typical area of IBS. She states that is why she is getting the infusion. Patient denies any new localizing weakness sensation deficits she den ies visual changes headaches. Patient states due to the flare she is having pain all over. Patient denies additional complaints/concerns. Patient appears well nontoxic on arrival, in no acute distress. Patient is extremely non complaint with her BP medications. - Related Data Home Medications Medication Instructions Recorded Confirmed Ipratropium/Albuterol Sulfate 2 puff INHALATION RT-QID PRN 12/09/13 09/29/20 [Combivent Respimat Inhaler] Diazepam [Valium] 5 mg PO DAILY PRN 05/24/18 09/29/20 lisinopriL [Zestril] 40 mg PO DAILY 05/24/18 09/29/20 Dimethyl Fumarate [Tecfidera] 240 mg PO BID 09/20/18 09/29/20 Amitriptyline HCl [Elavil] 75 mg PO BID 06/13/19 09/29/20 Metaxalone [Skelaxin] 800 mg PO TID PRN 06/13/19 09/29/20 Ondansetron [Zofran ODT] 4 mg PO TID PRN 06/13/19 09/29/20 Albuterol Inhaler [Ventolin Hfa 2 puff INHALATION RT-QID PRN 03/04/20 09/29/20 Inhaler] Ipratropium-Albuterol Nebulize 3 ml INHALATION RT-DAILY PRN 03/04/20 09/29/20 [Duoneb 0.5 mg-3 mg/3 ml Soln] oxyCODONE-APAP 10-325MG [Percocet 1 tab PO BID PRN 03/04/20 09/29/20 10-325 mg] Dextroamphetamine/Amphetamine 15 mg PO BID 06/29/20 09/29/20 [Adderall] Previous Rx's Medication Instructions Recorded Nitrofurantoin Monohyd/M-Cryst 100 mg PO Q12HR 5 Days #10 cap 09/29/20 [Macrobid] Allergies Allergy/AdvReac Type Severity Reaction Status Date / Time amoxicillin [Amoxicillin] Allergy Severe Anaphylaxis, Verified 09/29/20 09:14 seizures bee venom protein (honey bee) Allergy Anaphylaxis Verified 09/29/20 09:14 ciprofloxacin [From Cipro] AdvReac Severe Rash/Hives, Verified 09/29/20 09:14 seizures codeine phosphate AdvReac Unknown Rash/Hives Verified 09/29/20 09:14 [From Tylenol-Codeine #3] cefuroxime axetil AdvReac Rash/Hives Verified 09/29/20 09:14 [From Ceftin] ketorolac [From Toradol] AdvReac Rash/Hives Verified 09/29/20 09:14 latex AdvReac Rash/Hives Verified 09/29/20 09:14 NSAIDS (Non-Steroidal AdvReac Rash/Hives/Lip Verified 09/29/20 09:14 Anti-Inflamma Swelling sulfamethoxazole AdvReac Itching Verified 09/29/20 09:14 [From Bactrim] trimethoprim [From Bactrim] AdvReac Itching Verified 09/29/20 09:14 Review of Systems ROS Statement: Those systems with pertinent positive or pertinent negative responses have been documented in the HPI. ROS Other: All systems not noted in ROS Statement are negative. Past Medical History Past Medical History: Asthma, Coronary Artery Disease (CAD), Fibromyalgia, GERD/Reflux, Hypertension, Musculoskeletal Disorder, Neurologic Disorder, Pneumonia, Seizure Disorder Additional Past Medical History / Comment(s): Multiple Sclerosis, angina, migraines, DJD, interstitial cystitis, UTI, PCOS, vit D deficiency, bilateral optic neuritis with visual problems, generalized chronic pain, numbness/tingling bilateral lower legs, tachycardia, c-diff 5-9-16, seizures from MS last one around 2017. ADHD. 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 PCOS. History of Any Multi-Drug Resistant Organisms: C-DIFF Date of last positivie culture/infection: 2016 MDRO Source:: stool Past Surgical History: Cholecystectomy, Orthopedic Surgery Additional Past Surgical History / Comment(s): Lt shoulder rotator cuff repair 06/06/14, arthroscopic left knee 2000 & 2002, left shoulder reconstruction Past Anesthesia/Blood Transfusion Reactions: No Reported Reaction Additional Past Anesthesia/Blood Transfusion Reaction / Comment(s): Pt has never recieved blood. Past Psychological History: Anxiety, Bipolar, Depression Smoking Status: Former smoker Past Alcohol Use History: None Reported Past Drug Use History: None Reported - Past Family History Mother Family Medical History: No Reported History, Hearing Disorder / Deafness Additional Family Medical History / Comment(s): mother is healthy. Maternal grandmother had uterine cancer. Maternal grandfather had bladder cancer. Father Family Medical History: Hypertension Additional Family Medical History / Comment(s): Paternal grandfather had an [place]. General Exam - General Exam Comments Initial Comments: General: The patient is awake and alert, in no distress, and does not appear acutely ill. Eye: +3 mm pupils are equal, round and reactive to light, extra-ocular movements are intact. No nystagmus. There is normal conjunctiva bilaterally. No signs of icterus. Ears, nose, mouth and throat: There are moist mucous membranes and no oral lesions. Neck: The neck is supple, there is no tenderness or JVD. Cardiovascular: There is a regular rate and rhythm. No murmur, rub or gallop is appreciated. Respiratory: Lungs are clear to auscultation, respirations are non-labored, breath sounds are equal. No wheezes, stridor, rales, or rhonchi. Gastrointestinal: Soft, non-distended, non-tender abdomen without masses or organomegaly noted. There is no rebound or guarding present. Musculoskeletal: Normal ROM, no tenderness. Strength 5/5 of the LLE, 4/5 of the right LE below knee. Sensation intact of the LE equal b/l. Radial and DP pulses equal bilaterally 2+. Neurological: A&O x 3. CN II-XII intact, There are no obvious motor or sensory deficits. Coordination appears grossly intact. Speech is normal. Skin: Skin is warm and dry and no rashes or lesions are noted. Psychiatric: Cooperative, appropriate mood & affect, normal judgment. Limitations: no limitations Course Vital Signs 09/29/20 09/29/20 09:09 10:44 Temperature 98.7 F 99.4 F Pulse Rate 95 100 Respiratory 16 18 Rate Blood Pressure 181/98 150/97 O2 Sat by Pulse 100 98 Oximetry Medical Decision Making - Medical Decision Making 40yo presenting for asymptomatic elevated blood pressure reading. noncomplaint with medications. BP decreasing in ER. Patient wanted testing for UTI as she states usually when she has a flare she has a UTI. Patient states macrobin generally works well. Urine cultures/sensitivity- previously grown bacteria usually sensitive to macrobid. No fevers. No back pain. Nitrates/WBC in urine. ABx initiated in ER. Pt does not appear toxic, not on chronic steroids prior to todays infusion. Case discussed with and at this time we feel patient is stable for discharge with oral abx for UTI treatment and pcp f/u. Return for fevers, chest pain, dyspnea, leg swelling, headaches, visual changes discussed or other new concerning symptoms. Recommend taking blood pressures hat home and keeping log. - Lab Data Lab Results 09/29/20 Range/Units 09:31 Urine Color Light Yellow Urine Appearance Cloudy H (Clear) Urine pH 7.0 (5.0-8.0) Ur Specific Lejunior 1.006 (1.001-1.035) Urine Protein Trace H (Negative) Urine Glucose (UA) Negative (Negative) Urine Ketones Negative (Negative) Urine Blood Small H (Negative) Urine Nitrite Positive H (Negative) Urine Bilirubin Negative (Negative) Urine Urobilinogen <2.0 (<2.0) mg/dL Ur Leukocyte Esterase Large H (Negative) Urine RBC 6 H (0-5) /hpf Urine WBC 173 H (0-5) /hpf Urine WBC Clumps Few H (None) /hpf Ur Squamous Epith Cells 4 (0-4) /hpf Urine Bacteria Few H (None) /hpf Disposition Clinical Impression: Elevated blood pressure reading, UTI (urinary tract infection) Disposition: HOME SELF-CARE Condition: Good Instructions (If sedation given, give patient instructions): Urinary Tract Infection in Women (ED), Hypertension (ED) Additional Instructions: Please use medication as discussed. Please follow-up with family doctor in the next 2 days. Please return to emergency room if the symptoms increase or worsen or for any other concerns. Prescriptions: Nitrofurantoin Monohyd/M-Cryst [Macrobid] 100 mg PO Q12HR 5 Days #10 cap Is patient prescribed a controlled substance at d/c from ED?: No Referrals: Sj Fitch MD [Primary Care Provider] - 1-2 days Time of Disposition: 10:37
[2020-09-29 10:45] VITALS: BP 150/97; PULSE 100; RESP 18; TEMP 99.4
== END 2020-09-29 11:16 | disposition home or self-care (01) ==
LOC: EC 09:07
DX: I10 Essential (primary) hypertension (principal); N39.0 Urinary tract infection, site not specified; F41.9 Anxiety disorder, unspecified; F31.9 Bipolar disorder, unspecified; J45.909 Unspecified asthma, uncomplicated; K21.9 Gastro-esophageal reflux disease without esophagitis; G40.909 Epilepsy, unspecified, not intractable, without status epilepticus; M79.7 Fibromyalgia; Z79.899 Other long term (current) drug therapy; Z88.0 Allergy status to penicillin; Z88.6 Allergy status to analgesic agent; Z88.1 Allergy status to other antibiotic agents; Z88.2 Allergy status to sulfonamides; Z88.5 Allergy status to narcotic agent; Z87.891 Personal history of nicotine dependence; Z86.69 Personal history of other diseases of the nervous system and sense organs; Z90.49 Acquired absence of other specified parts of digestive tract
CPT/HCPCS: 81001; 87086; 99283; 96374; 96375 ×2; J2060; J2765; J1170

== ENCOUNTER 2020-10-01 08:35 | Inpatient (IN) | payer MEDICARE, OTHER ==
--- NOTE | 2020-10-01 08:43 | ED ---
General Adult HPI - General Chief complaint: Nausea/Vomiting/Diarrhea Stated complaint: High BP Time Seen by Provider: 10/01/20 08:42 Source: patient Mode of arrival: ambulatory Limitations: no limitations - History of Present Illness Initial comments: 40yo female with history of MS, currently stating she is undergoing a "flare" presenting to ER today for elevated BP reading at the infusion center and vision changes right eye (white spot) that began last night. Patient states she has pain/burning of the right side of face and had a white spot in the very corner of her vision when looking to the far right. Denies eye pain specifically. She states sometimes this happens with optic neuritis. Patient denies diplopia. Patient states her flare began about 3-4 days ago and began with pain and increasing weakness in her right leg below the knee that typically occurs when she has these episodes. She states her neurologist then prescribed her 1000mg of solumedrol infusion and she states she is going on her second but was vomiting when she got to the center and had elevated blood pressure so she staes they sent her here for evaluation. patient denies headaches, fevers, neck stiffness, denies abdominal pain but states she feels lower abdominal fullness and pain at the end of stream--this is consistent with urinalysis. pt states that she is taking the macrobid as directly. Denies back/flank pain. Patient denies additional complaints. UPon arrival patient BP WNL> - Related Data Home Medications Medication Instructions Recorded Confirmed Ipratropium/Albuterol Sulfate 2 puff INHALATION RT-QID PRN 12/09/13 10/01/20 [Combivent Respimat Inhaler] Metaxalone [Skelaxin] 800 mg PO TID PRN 06/13/19 10/01/20 Ondansetron [Zofran ODT] 4 mg PO BID PRN 06/13/19 10/01/20 Albuterol Inhaler [Ventolin Hfa 2 puff INHALATION RT-QID PRN 03/04/20 10/01/20 Inhaler] oxyCODONE-APAP 10-325MG [Percocet 1 tab PO BID PRN 03/04/20 10/01/20 10-325 mg] Dextroamphetamine/Amphetamine 30 mg PO DAILY 10/01/20 10/01/20 [Adderall] Diazepam [Valium] 10 mg PO BID PRN 10/01/20 10/01/20 lisinopriL 20 mg PO DAILY 10/01/20 10/01/20 Previous Rx's Medication Instructions Recorded Nitrofurantoin Monohyd/M-Cryst 100 mg PO Q12HR 5 Days #10 cap 09/29/20 [Macrobid] Allergies Allergy/AdvReac Type Severity Reaction Status Date / Time amoxicillin [Amoxicillin] Allergy Severe Anaphylaxis, Verified 09/30/20 08:32 seizures bee venom protein (honey bee) Allergy Anaphylaxis Verified 09/30/20 08:32 ciprofloxacin [From Cipro] AdvReac Severe Rash/Hives, Verified 09/30/20 08:32 seizures codeine phosphate AdvReac Unknown Rash/Hives Verified 09/30/20 08:32 [From Tylenol-Codeine #3] cefuroxime axetil AdvReac Rash/Hives Verified 09/30/20 08:32 [From Ceftin] ketorolac [From Toradol] AdvReac Rash/Hives Verified 09/30/20 08:32 latex AdvReac Rash/Hives Verified 09/30/20 08:32 NSAIDS (Non-Steroidal AdvReac Rash/Hives/Lip Verified 09/30/20 08:32 Anti-Inflamma Swelling sulfamethoxazole AdvReac Itching Verified 09/30/20 08:32 [From Bactrim] trimethoprim [From Bactrim] AdvReac Itching Verified 09/30/20 08:32 Review of Systems ROS Statement: Those systems with pertinent positive or pertinent negative responses have been documented in the HPI. ROS Other: All systems not noted in ROS Statement are negative. Past Medical History Past Medical History: Asthma, Coronary Artery Disease (CAD), Fibromyalgia, GERD/Reflux, Hypertension, Musculoskeletal Disorder, Neurologic Disorder, P neumonia, Seizure Disorder Additional Past Medical History / Comment(s): Multiple Sclerosis, angina, migraines, DJD, interstitial cystitis, UTI, PCOS, vit D deficiency, bilateral optic neuritis with visual problems, generalized chronic pain, numbness/tingling bilateral lower legs, tachycardia, c-diff 5-9-16, seizures from MS last one around 2017. ADHD. 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 PCOS. History of Any Multi-Drug Resistant Organisms: C-DIFF Date of last positivie culture/infection: 2017 MDRO Source:: stool Past Surgical History: Cholecystectomy, Orthopedic Surgery Additional Past Surgical History / Comment(s): Lt shoulder rotator cuff repair 06/06/14, arthroscopic left knee 2000 & 2002, left shoulder reconstruction Past Anesthesia/Blood Transfusion Reactions: No Reported Reaction Additional Past Anesthesia/Blood Transfusion Reaction / Comment(s): Pt has never recieved blood. Past Psychological History: Anxiety, Bipolar, Depression Smoking Status: Former smoker Past Alcohol Use History: None Reported Past Drug Use History: None Reported - Past Family History Mother Family Medical History: No Reported History, Hearing Disorder / Deafness Additional Family Medical History / Comment(s): mother is healthy. Maternal grandmother had uterine cancer. Maternal grandfather had bladder cancer. Father Family Medical History: Hypertension Additional Family Medical History / Comment(s): Paternal grandfather had an NH. General Exam - General Exam Comments Initial Comments: General: The patient is awake and alert, in no distress Eye: +2 mm pupils are equal, round and reactive to light, extra-ocular movements are intact. No nystagmus. There is normal conjunctiva bilaterally. No signs of icterus. No obvious APD Ears, nose, mouth and throat: There are moist mucous membranes and no oral lesions. Neck: The neck is supple, there is no tenderness or JVD. Cardiovascular: There is a regular rate and rhythm. No murmur, rub or gallop is appreciated. Respiratory: Lungs are clear to auscultation, respirations are non-labored, breath sounds are equal. No wheezes, stridor, rales, or rhonchi. Gastrointestinal: Soft, non-distended, non-tender abdomen without masses or organomegaly noted. There is no rebound or guarding present. Musculoskeletal: Normal ROM, no tenderness. Strength 5/5 of the UE equal b/l with 5/5 changer fixer strength. 4/5 of the right LE distal to knee, some tremor noted. Sensation intact of the UE and LE b/l. Radial and DP pulses equal bilaterally 2+. Neurological: A&O x 3. CN II-XII intact, There are no obvious motor or sensory deficits. Coordination appears grossly intact. Speech is normal. Pain to palpation of the right side of face, no pain with EOM. VF intact to confrontation. No ADP appreciated. No sara-neglect or inattention. Extremity movements are smooth and coordinated, aside from right LE which has tremor. Skin: Skin is warm and dry and no rashes or lesions are noted. Psychiatric: Cooperative, appropriate mood & affect, normal judgment. Limitations: no limitations Course Vital Signs 10/01/20 08:37 Temperature 98.2 F Pulse Rate 91 Respiratory 18 Rate Blood Pressure 127/81 O2 Sat by Pulse 99 Oximetry Medical Decision Making - Medical Decision Making 40-year-old female presenting for elevated blood pressure, right facial pain right eye "white spot", right leg weakness, states all these symptoms are normal for exacerbations, just had infusion 1000mg of solumedrol 2 days ago--could have reactive component to patient's leukocytosis. However patient does have urinary tract infection that grew E. coli 2 days ago is sensitive to Rocephin. Upon chart review appears that she previously tolerated Rocephin despite her cephalosporin ALLERGY. Patient CT brain (-). Patient UA pending, she has been on macrobid x 2 days which bacteria in urine is sensitive to. Patient case discussed with Dr. Sims who is agreeable to admission for MS exacerbation and UTI, cannot r/o sepsis given patient has white count 33 with lactic acidosis althought felt that the white ocunt most likely reactive. Patient blood culture pending. Patient agreeable to admssion> Dr Ramírez accepted admission, requesting CXR. - Lab Data Result diagrams: 10/01/20 09:11 10/01/20 09:11 Lab Results 10/01/20 10/01/20 10/01/20 Range/Units 09:11 09:11 09:11 WBC 33.1 H (3.8-10.6) k/uL RBC 4.08 (3.80-5.40) m/uL Hgb 12.3 (11.4-16.0) gm/dL Hct 35.7 (34.0-46.0) % MCV 87.4 (80.0-100.0) fL MCH 30.2 (25.0-35.0) pg MCHC 34.5 (31.0-37.0) g/dL RDW 13.7 (11.5-15.5) % Plt Count 686 H (150-450) k/uL MPV 7.8 Neutrophils % 86 % Lymphocytes % 9 % Monocytes % 3 % Eosinophils % 1 % Basophils % 0 % Neutrophils # 28.6 H (1.3-7.7) k/uL Lymphocytes # 3.0 (1.0-4.8) k/uL Monocytes # 1.0 (0-1.0) k/uL Eosinophils # 0.4 (0-0.7) k/uL Basophils # 0.0 (0-0.2) k/uL Sodium 138 (137-145) mmol/L Potassium 3.8 (3.5-5.1) mmol/L Chloride 98 (98-107) mmol/L Carbon Dioxide 28 (22-30) mmol/L Anion Gap 12 mmol/L BUN 19 H (7-17) mg/dL Creatinine 0.79 (0.52-1.04) mg/dL Est GFR (CKD-EPI)AfAm >90 (>60 ml/min/1.73 sqM) Est GFR (CKD-EPI)NonAf >90 (>60 ml/min/1.73 sqM) Glucose 123 H (74-99) mg/dL Plasma Lactic Acid Tom 3.7 H* (0.7-2.0) mmol/L Calcium 10.0 (8.4-10.2) mg/dL Total Bilirubin 0.5 (0.2-1.3) mg/dL AST 33 (14-36) U/L ALT 35 H (4-34) U/L Alkaline Phosphatase 63 (38-126) U/L Total Protein 6.6 (6.3-8.2) g/dL Albumin 3.7 (3.5-5.0) g/dL Disposition Clinical Impression: UTI (urinary tract infection), Leukocytosis, Multiple sclerosis, Multiple sclerosis exacerbation, Lactic acidosis Disposition: ADMITTED IP TO THIS [facility] Condition: Stable Is patient prescribed a controlled substance at d/c from ED?: No Referrals: Sj Fitch MD [Primary Care Provider] - 1-2 days Time of Disposition: 10:23 Decision to Admit Reason: Admit from EC Decision Date: 10/01/20 Decision Time: 10:23
[2020-10-01] MEDS ORDERED: SODIUM CHLORIDE 0.9% 1,000 ML IV ONE (08:59)
[2020-10-01] MEDS ORDERED: HYDROmorphone 0.5 MG/0.5 ML SYRINGE IVP STA (08:59)
[2020-10-01] MEDS ORDERED: ONDANSETRON 4 MG/2 ML VIAL IVP STA ×2 (09:00→11:07)
[2020-10-01] MEDS: SODIUM CHLORIDE 0.9% 1,000 ML IV SCH ×2 (09:05→16:56)
[2020-10-01 09:18] LABS: Basophils % (A) 0 %; Eosinophils # (A) 0.4 k/uL (0-0.7); Eosinophils % (A) 1 %; HCT 35.7 % (34.0-46.0); HGB 12.3 gm/dL (11.4-16.0); Lymphocytes % (A) 9 %; MCH 30.2 pg (25.0-35.0); MCHC 34.5 g/dL (31.0-37.0); MCV 87.4 fL (80.0-100.0); Mean Platelet Volume 7.8; Monocytes % (A) 3 %; Neutrophils # (A) 28.6 k/uL (1.3-7.7); Neutrophils % (A) 86 %; Platelet Count 686 k/uL (150-450); RBC 4.08 m/uL (3.80-5.40); RDW 13.7 % (11.5-15.5); WBC 33.1 k/uL (3.8-10.6)
[2020-10-01 09:27] LABS: ALT 35 U/L (4-34); AST 33 U/L (14-36); African American GFR (CKD) >90 (>60 ml/min/1.73 sqM); Albumin 3.7 g/dL (3.5-5.0); Alkaline Phosphatase 63 U/L (38-126); Anion Gap 12 mmol/L; Blood Urea Nitrogen 19 mg/dL (7-17); Carbon Dioxide 28 mmol/L (22-30); Chloride 98 mmol/L (98-107); Glucose 123 mg/dL (74-99); Non-African American GFR(CKD) >90 (>60 ml/min/1.73 sqM); Potassium 3.8 mmol/L (3.5-5.1); Sodium 138 mmol/L (137-145); Total Bilirubin 0.5 mg/dL (0.2-1.3); Total Protein 6.6 g/dL (6.3-8.2)
--- NOTE | 2020-10-01 09:37 | CT ---
EXAMINATION TYPE: CT brain wo con DATE OF EXAM: 10/01/2020 COMPARISON: 01/01/2020 HISTORY: Visual changes, MS CT DLP: 1043.[address] of the brain was performed. The ventricles, basal cisterns and sulci overlying the cerebral convexities are mildly prominent for the patient's age group. There are areas of focal encephalomalacia involving the right occipital lobe , right centrum semioval and left occipital lobe unchanged from prior study. There is no evidence for intracranial hemorrhage or sulcal effacement. No mass effects are seen. Osseous calvarium is intact. If symptoms persist consider MRI as clinically warranted. IMPRESSION: 1. No acute intracranial process is seen at this time.
[2020-10-01] MEDS ORDERED: SODIUM CHLORIDE 0.9% 1,000 ML IV STA (10:11)
[2020-10-01] MEDS ORDERED: NALOXONE 0.4 MG/ML 1 ML VIAL IV PRN (10:23)
--- NOTE | 2020-10-01 10:33 | XR ---
EXAMINATION TYPE: XR chest 2V DATE OF EXAM: 10/01/2020 COMPARISON: 08/05/2020 HISTORY: Chest pain TECHNIQUE: Frontal and lateral views of the chest are obtained. FINDINGS: There is no focal air space opacity. No evidence for pneumothorax. No pleural effusion. The cardiac silhouette size is within normal limits. The osseous structures are grossly intact. IMPRESSION: 1. No acute cardiopulmonary process.
[2020-10-01] MEDS ORDERED: LORazepam 2 MG/ML INJ IV STA (11:06)
[2020-10-01 11:31] LABS: Appearance,Urine Clear (Clear); Bacteria,Urine Rare /hpf; Bilirubin,Urine Negative (Negative); Blood,Urine Small (Negative); Color,Urine Yellow; Glucose,Urine (UA) Negative (Negative); Ketones,Urine Negative (Negative); Leukocyte Esterase,Urine Moderate (Negative); Mucus,Urine Rare /hpf; Nitrite,Urine Negative (Negative); Protein,Urine Trace (Negative); RBC,Urine 3 /hpf (0-5); Specific Gravity,Urine 1.018 (1.001-1.035); Squamous Epithelial Cell,Urine <1 /hpf (0-4); WBC,Urine 14 /hpf (0-5)
[2020-10-01] MEDS ORDERED: IPRATROPIUM-ALBUTEROL 3 ML NEB INHALATION PRN (12:02)
[2020-10-01] MEDS ORDERED: HYDROmorphone 1 MG/ML 1 ML SYRINGE IM PRN (12:04)
[2020-10-01] MEDS: diazePAM 5 MG TAB PO PRN ×2 (13:03→23:06)
[2020-10-01] MEDS: lisinopriL 20 MG TAB PO SCH (13:03)
[2020-10-01] MEDS: HYDROmorphone 0.5 MG/0.5 ML SYRINGE IVP PRN ×4 (13:04→23:07)
[2020-10-01] MEDS: ALBUTEROL NEBULIZED 2.5 MG/3 ML INHALATION PRN (16:00)
[2020-10-01] MEDS ORDERED: methylPREDNISolone SOD SUCC 1,000 MG in SODIUM CHLORIDE 0.9% 250 ML IVPB STA (16:36)
--- NOTE | 2020-10-01 16:41 | P.HPIM ---
History of Present Illness H&P Date: 10/01/20 Chief Complaint: Nausea/vomiting/diarrhea/elevated blood pressure 40yo female with history of MS, currently stating she is undergoing a "flare" presenting to ER today for elevated BP reading at the infusion center and vision changes right eye (white spot) that began last night. Patient states she has pain/burning of the right side of face and had a white spot in the very corner of her vision when looking to the far right. Denies eye pain specifically. She states sometimes this happens with optic neuritis. Patient denies diplopia. Patient states her flare began about 3-4 days ago and began with pain and increasing weakness in her right leg below the knee that typically occurs when she has these episodes. She states her neurologist then prescribed her 1000mg of solumedrol infusion and she states she is going on her second but was vomiting when she got to the center and had elevated blood pressure so she staes they sent her here for evaluation. patient denies headaches, fevers, neck stiffness, denies abdominal pain but states she feels lower abdominal fullness and pain at the end of stream--this is consistent with urinalysis. pt states that she is taking the macrobid as directly. Denies back/flank pain. Patient denies additional complaints. Review of Systems REVIEW OF SYSTEMS: CONSTITUTIONAL: No fever, no malaise, no fatigue. HEENT: No recent visual problems or hearing problems. Denied any sore throat. CARDIOVASCULAR: No chest pain, orthopnea, PND, no palpitations, no syncope. PULMONARY: No shortness of breath, no cough, no hemoptysis. GASTROINTESTINAL: No diarrhea, no nausea, no vomiting, no abdominal pain. NEUROLOGICAL: No headaches, no weakness, no numbness. HEMATOLOGICAL: Denies any bleeding or petechiae. GENITOURINARY: Denies any burning micturition, frequency, or urgency. MUSCULOSKELETAL/RHEUMATOLOGICAL: Denies any joint pain, swelling, or any muscle pain. ENDOCRINE: Denies any polyuria or polydipsia. The rest of the 14-point review of systems is negative. Past Medical History Past Medical History: Asthma, Coronary Artery Disease (CAD), Fibromyalgia, GERD/Reflux, Hypertension, Musculoskeletal Disorder, Neurologic Disorder, Pneumonia, Seizure Disorder Additional Past Medical History / Comment(s): Multiple Sclerosis, angina, migraines, DJD, interstitial cystitis, UTI, PCOS, vit D deficiency, bilateral optic neuritis with visual problems, generalized chronic pain, numbness/tingling bilateral lower legs, tachycardia, c-diff 5-9-16, seizures from MS last one around 2016. ADHD. 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 PCOS. History of Any Multi-Drug Resistant Organisms: C-DIFF Date of last positivie culture/infection: 2016 MDRO Source:: stool Past Surgical History: Cholecystectomy, Orthopedic Surgery Additional Past Surgical History / Comment(s): Lt shoulder rotator cuff repair 06/06/14, arthroscopic left knee 2000 & 2002, left shoulder reconstruction Past Anesthesia/Blood Transfusion Reactions: No Reported Reaction Additional Past Anesthesia/Blood Transfusion Reaction / Comment(s): Pt has never recieved blood. Past Psychological History: Anxiety, Bipolar, Depression Smoking Status: Former smoker Past Alcohol Use History: None Reported Past Drug Use History: None Reported - Past Family History Mother Family Medical History: No Reported History, Hearing Disorder / Deafness Additional Family Medical History / Comment(s): mother is healthy. Maternal grandmother had uterine cancer. Maternal grandfather had bladder cancer. Father Family Medical History: Hypertension Additional Family Medical History / Comment(s): Paternal grandfather had an IA. Medications and Allergies Home Medications Medication Instructions Recorded Confirmed Type Ipratropium/Albuterol Sulfate 2 puff INHALATION RT-QID PRN 12/09/13 10/01/20 History [Combivent Respimat Inhaler] Metaxalone [Skelaxin] 800 mg PO TID PRN 06/13/19 10/01/20 History Ondansetron [Zofran ODT] 4 mg PO BID PRN 06/13/19 10/01/20 History Albuterol Inhaler [Ventolin Hfa 2 puff INHALATION RT-QID PRN 03/04/20 10/01/20 History Inhaler] oxyCODONE-APAP 10-325MG [Percocet 1 tab PO BID PRN 03/04/20 10/01/20 History 10-325 mg] Nitrofurantoin Monohyd/M-Cryst 100 mg PO Q12HR 5 Days #10 cap 09/29/20 10/01/20 Rx [Macrobid] Dextroamphetamine/Amphetamine 30 mg PO DAILY 10/01/20 10/01/20 History [Adderall] Diazepam [Valium] 10 mg PO BID PRN 10/01/20 10/01/20 History lisinopriL 20 mg PO DAILY 10/01/20 10/01/20 History Allergies Allergy/AdvReac Type Severity Reaction Status Date / Time amoxicillin [Amoxicillin] Allergy Severe Anaphylaxis, Verified 09/30/20 08:32 seizures bee venom protein (honey bee) Allergy Anaphylaxis Verified 09/30/20 08:32 ciprofloxacin [From Cipro] AdvReac Severe Rash/Hives, Verified 09/30/20 08:32 seizures codeine phosphate AdvReac Unknown Rash/Hives Verified 09/30/20 08:32 [From Tylenol-Codeine #3] cefuroxime axetil AdvReac Rash/Hives Verified 09/30/20 08:32 [From Ceftin] ketorolac [From Toradol] AdvReac Rash/Hives Verified 09/30/20 08:32 latex AdvReac Rash/Hives Verified 09/30/20 08:32 NSAIDS (Non-Steroidal AdvReac Rash/Hives/Lip Verified 09/30/20 08:32 Anti-Inflamma Swelling sulfamethoxazole AdvReac Itching Verified 09/30/20 08:32 [From Bactrim] trimethoprim [From Bactrim] AdvReac Itching Verified 09/30/20 08:32 Physical Exam Vitals: Vital Signs Temp Pulse Resp BP Pulse Ox 10/01/20 08:37 98.2 F 91 18 127/81 99 Intake and Output 09/30/20 10/01/20 10/01/20 22:59 06:59 14:59 Other: Weight 99.79 kg - Constitutional General appearance: Present: average body habitus, cooperative, no acute distress - EENT Eyes: Present: anicteric sclerae, EOMI, PERRLA, normal appearance ENT: Present: hearing grossly normal, normal oropharynx Ears: bilateral: normal - Neck Neck: Present: normal ROM. Absent: lymphadenopathy, rigidity, thyromegaly Carotids: negative: bruit present Thyroid: bilateral: normal size, negative: enlarged, nodule - Respiratory Respiratory: bilateral: CTA, negative: rales, rhonchi, wheezing - Cardiovascular Rhythm: regular Heart sounds: normal: S1, S2 Abnormal Heart Sounds: Absent: systolic murmur, diastolic murmur - Gastrointestinal General gastrointestinal: Present: normal bowel sounds, soft. Absent: distended, organomegaly, tenderness - Genitourinary Genitourinary Comment(s): deferred - Integumentary Integumentary: Present: normal turgor. Absent: jaundiced, rash, ulcer - Neurologic Neurologic: Present: CNII-XII intact. Absent: focal deficits - Musculoskeletal Musculoskeletal: Present: gait normal, strength equal bilaterally - Psychiatric Psychiatric: Present: A&O x's 3, appropriate affect, intact judgment & insight Results CBC & Chem 7: 10/01/20 09:11 10/01/20 09:11 Labs: Abnormal Lab Results - Last 24 Hours (Table) 10/01/20 10/01/20 10/01/20 Range/Units 09:11 09:11 09:11 WBC 33.1 H (3.8-10.6) k/uL Plt Count 686 H (150-450) k/uL Neutrophils # 28.6 H (1.3-7.7) k/uL BUN 19 H (7-17) mg/dL Glucose 123 H (74-99) mg/dL Plasma Lactic Acid Tom 3.7 H* (0.7-2.0) mmol/L ALT 35 H (4-34) U/L Assessment and Plan Assessment: 1. Leukocytosis/sepsis/UTI - Patient is started on IV Rocephin from ED; we will continue to final urine and blood cultures are available; consult ID for further recommendations 2. Acute exacerbation of MS; - Patient reports having been started on IV Solu-Medrol thousand milligrams daily by her primary neurologist; patient did get first treatment yesterday; medication has been confirmed and patient will be started on Solu-Medrol thousand milligrams daily for 2 more days; we will consult neurology for further recommendations 3. Hypertension; continue with home dose of lisinopril 20 mg daily 4. Asthma; not in exacerbation; continue with home inhaler therapy DVT prophylaxis; SCDs CODE STATUS; full code
[2020-10-01] MEDS: ONDANSETRON 4 MG/2 ML VIAL IVP PRN (19:59)
--- NOTE | 2020-10-01 22:43 | CONS ---
CONSULTATION DATE OF SERVICE: 10/01/2020. REASON FOR CONSULTATION: Urinary tract infection. HISTORY OF PRESENT ILLNESS: The patient is a 40-year-old female with past medical history significant for MS in this patient currently receiving outpatient setting IV steroids for MS flare-up. The patient presented to the ER from [facility] with concern for elevated blood pressure, vision changes right eye and concern for possible worsening of her MS. The patient was also complaining of a burning pain to the suprapubic area, intensity 5 to 6 out of 10 and no radiation with some difficulty urination requiring Beth catheter placement. Patient complaining of feeling nauseated but no vomiting. The patient denies having any chest pain, shortness of breath or cough and no diarrhea. With these symptoms, the patient was evaluated by the ER physician. On arrival to the ER, the patient was afebrile. The patient was noticed to have a white count of 33,000. Lactic acid 3.7. Repeat is 1.5. The patient did have positive UA. Garrido PCR was negative. The patient was started on Rocephin 1 g daily. Infectious Disease was consulted for further management of antibiotic therapy. The patient did have a chest x-ray that was reported negative for any acute infiltrate. REVIEW OF SYSTEMS: Positive points have been mentioned in HPI. Rest of systems are negative. PAST MEDICAL HISTORY: Asthma, coronary artery disease, fibromyalgia, gastroesophageal reflux disease, hypertension, pneumonia, seizure disorder, multiple sclerosis, UTI and C difficile colitis. PAST SURGICAL HISTORY: Cholecystectomy, left rotator cuff repair. SOCIAL HISTORY: Remote history of smoking. No drinking or drug use. FAMILY HISTORY: Mother history of hearing disorder. Father history of hypertension. ALLERGIES: TO AMOXICILLIN AND CIPROFLOXACIN; , LATEX. However, she has tolerated Rocephin without any problem. MEDICATIONS: Currently include the patient is on: Ventolin, DuoNeb, Rocephin 1 g daily, Flexeril, Valium, Dilaudid, Restoril, Narcan, Zofran and IV fluid. PHYSICAL EXAMINATION: Blood pressure 135/95 with a pulse of 84, temperature 97.4. She is 100% on 3 L nasal cannula. GENERAL DESCRIPTION is middle-aged female lying in bed in no distress. No tachypnea or accessory muscles of respiration use. HEENT: Examination shows no pallor or scleral icterus. Oral mucous membranes dry. No pharyngeal erythema or thrush. NECK: Trachea central. No thyromegaly. LUNGS: Unlabored breathing, clear to auscultation anteriorly. HEART: S1-S2 regular rate and rhythm. ABDOMEN: Soft, no tenderness. No guarding. No rigidity. EXTREMITIES: No edema of the feet. SKIN examination: No rash or mass palpable. NEUROLOGICAL: Patient is awake, alert, oriented x3. Mood and affect normal. LABS: Hemoglobin is 12.8, white count 33.1. BUN of 19, creatinine 0.79, of 35. Urine was positive. Culture is pending. DIAGNOSTIC IMPRESSION AND PLAN: 1. Patient admitted to the hospital with suprapubic discomfort, urinary difficulty, burning of urine with positive UA and concern for a symptomatic urinary tract infection in this patient who did have elevated white count, more likely due the patient receiving 5 mg daily in the outpatient setting. 2. Patient did have MULTIPLE ANTIBIOTIC ALLERGIES listed that will limit the number of antibiotics safe to use. PLAN: 1. Rocephin 1 g daily to continue. 2. IV fluid. 3. We will follow on clinical condition and culture to further adjust medication if needed. Thank you for this consultation. Will follow this patient along with you. MMODL / IJN: [id number] /
[2020-10-02] MEDS: SODIUM CHLORIDE 0.9% 1,000 ML IV SCH ×4 (00:35→20:43)
[2020-10-02] MEDS: HYDROmorphone 0.5 MG/0.5 ML SYRINGE IVP PRN ×4 (01:51→11:17)
[2020-10-02] MEDS: ONDANSETRON 4 MG/2 ML VIAL IVP PRN ×3 (05:24→23:00)
[2020-10-02] MEDS: diazePAM 5 MG TAB PO PRN ×2 (08:12→19:09)
[2020-10-02] MEDS: lisinopriL 20 MG TAB PO SCH (08:12)
[2020-10-02] MEDS: PATIENT'S OWN (Dextroamphetamine/Amphetamine [Adderall] 30 MG Tablet) PO SCH (09:50)
[2020-10-02] MEDS ORDERED: CEFEPIME 2 GM in SODIUM CHLORIDE 0.9% 100 ML IVPB ONE (11:15)
[2020-10-02] MEDS ORDERED: HYDROmorphone 0.5 MG/0.5 ML SYRINGE IM STA (11:53)
--- NOTE | 2020-10-02 12:50 | US ---
EXAMINATION TYPE: US venous doppler duplex LE DATE OF EXAM: 10/02/2020 12:44 PM COMPARISON: CLINICAL HISTORY: willard leg pain. No redness. No pain. Not on blood thinners. Patient states sometim es having cramping. SIDE PERFORMED: Bilateral TECHNIQUE: The lower extremity deep venous system is examined utilizing real time linear array sonog colin with graded compression, doppler sonography and color-flow sonography. VESSELS IMAGED: Common Femoral Vein Deep Femoral Vein Greater Saphenous Vein * Femoral Vein Popliteal Vein Small Saphenous Vein * Proximal Calf Veins (* superficial vessels) Limited due to patient body habitus Right Leg: Negative for DVT Left Leg: Negative for DVT There is normal flow, compressibility, vascular waveforms. IMPRESSION: No evident deep venous thrombosis at or above the knees. Technologist reports some limita tions to the exam.
[2020-10-02] MEDS: ALBUTEROL NEBULIZED 2.5 MG/3 ML INHALATION PRN (13:17)
[2020-10-02] MEDS: HYDROmorphone 1 MG/ML 1 ML SYRINGE IVP PRN ×2 (17:50→23:00)
[2020-10-02] MEDS: CYCLOBENZAPRINE 10 MG TAB PO PRN (17:55)
--- NOTE | 2020-10-02 17:55 | PN ---
PROGRESS NOTE DATE OF SERVICE: 10/02/2020 REASON FOR FOLLOWUP: Pyelonephritis and bacteremia. INTERVAL HISTORY: The patient is currently afebrile. The patient is breathing comfortably. Denies having any chest pain or cough. He has been complaining of pain in the suprapubic area with some nausea, but no vomiting and no diarrhea. PHYSICAL EXAMINATION: Blood pressure 165/92 with a pulse of 54, temperature 98. She is 96% on room air. General description is a middle-aged female lying in bed in no distress. RESPIRATORY SYSTEM: Unlabored breathing. Clear to auscultation anteriorly. HEART: S1, S2. Regular rate and rhythm. ABDOMEN: Soft. No tenderness. LABS: UA is positive. Blood culture is showing Gram-negative bacilli. DIAGNOSTIC IMPRESSION AND PLAN: Patient with Gram-negative bacteremia, source likely pyelonephritis with urinary tract infection, as she did have significant urinary symptoms. Antibiotic adjusted to cefepime. Ultrasound of the kidney showed no evidence of any abnormality and continue supportive care. MMODL / IJN: [id number] /
--- NOTE | 2020-10-02 20:37 | P.CNNES ---
History of Present Illness Consult date: 10/02/20 Requesting physician: Arleth Perez Reason for Consult: Weakness right foot and visual changes History of Present Illness: Patient is a 40-year-old female well known to me from previous admission to the hospital, who has history of relapsing remitting MS, follows with Dr. Soria. Patient currently is in the process of starting [employer] for her relapsing remitting MS. Patient states that about 7-8 days ago, she started having nausea vomiting. The symptoms persisted for a week. She got slightly better, but 3-4 days ago she started having vertigo. Whenever she would open her eyes, she would start feeling vertigo. She has to run to the bathroom to vomit. She is noticing some numbness of rice of the face extending to the right ear. Patient is also noticing new onset visual field defect on the right la teral side of the vision. It appears white when she tries to look to the right. Patient also states that she has issues with "nerves in the bladder" and she does not feel symptoms of UTI until it is full blown. She has 2 episodes of UTI in the last 4 months. She has history of interstitial cystitis. Patient is also complaining of increased weakness of her baseline right foot and hand weakness. Patient states that she has received 1 g IV PB of Solu-Medrol on 09/29/2020, and 09/30/2020 as outpatient. Patient says that she came to the hospital yesterday and arrived at 10:24 AM. Patient was seen by infectious disease for gram-negative bacteremia and has been started on cefepime 2 g IV every 12 hours. Patient has previously tried numerous disease modifying agents including Avonex, Copaxone, Gilenya and Ocrevus. Patient has reaction to the levator medication. Patient has been on Tecfidera since it was marketed. Patient came to the hospital for acute onset of right leg weakness Patient's blood test from 10/01/2020 shows WBC 33.1, hemoglobin 12.3, platelets 686. Chem-7 is normal. Hepatic panel with normal AST, ALT is mildly elevated 35. UA shows small amount of blood, moderate leukocyte esterase, 14 WBC and rare bacteria. Garrido virus PCR negative. Patient's blood cultures have grown gram-negative bacilli. Patient's last JCV antibody titers were +3.68 Review of Systems As above in detail. All other review of systems unremarkable. Patient has visual symptoms, right-sided weakness. Denies double vision. No slurred s peech. No chest pain. No abdominal pain. Past Medical History Past Medical History: Asthma, Coronary Artery Disease (CAD), Fibromyalgia, GERD/Reflux, Hypertension, Musculoskeletal Disorder, Neurologic Disorder, Pneumonia, Seizure Disorder Additional Past Medical History / Comment(s): Multiple Sclerosis, angina, migraines, DJD, interstitial cystitis, UTI, PCOS, vit D deficiency, bilateral optic neuritis with visual problems, generalized chronic pain, numbness/tingling bilateral lower legs, tachycardia, c-diff 5-9-16, seizures from MS last one around 2016. ADHD. 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 PCOS. History of Any Multi-Drug Resistant Organisms: C-DIFF Date of last positivie culture/infection: 2016 MDRO Source:: stool Past Surgical History: Cholecystectomy, Orthopedic Surgery Additional Past Surgical History / Comment(s): Lt shoulder rotator cuff repair 06/06/14, arthroscopic left knee 2000 & 2002, left shoulder reconstruction Past Anesthesia/Blood Transfusion Reactions: No Reported Reaction Additional Past Anesthesia/Blood Transfusion Reaction / Comment(s): Pt has never recieved blood. Past Psychological History: Anxiety, Bipolar, Depression Smoking Status: Former smoker Past Alcohol Use History: None Reported Past Drug Use History: None Reported - Past Family History Mother Family Medical History: No Reported History, Hearing Disorder / Deafness Additional Family Medical History / Comment(s): mother is healthy. Maternal grandmother had uterine cancer. Maternal grandfather had bladder cancer. Father Family Medical History: Hypertension Additional Family Medical History / Comment(s): Paternal grandfather had an SC. Medications and Allergies Home Medications Medication Instructions Recorded Confirmed Type Ipratropium/Albuterol Sulfate 2 puff INHALATION RT-QID PRN 12/09/13 10/01/20 History [Combivent Respimat Inhaler] Metaxalone [Skelaxin] 800 mg PO TID PRN 06/13/19 10/01/20 History Ondansetron [Zofran ODT] 4 mg PO BID PRN 06/13/19 10/01/20 History Albuterol Inhaler [Ventolin Hfa 2 puff INHALATION RT-QID PRN 03/04/20 10/01/20 History Inhaler] oxyCODONE-APAP 10-325MG [Percocet 1 tab PO BID PRN 03/04/20 10/01/20 History 10-325 mg] Nitrofurantoin Monohyd/M-Cryst 100 mg PO Q12HR 5 Days #10 cap 09/29/20 10/01/20 Rx [Macrobid] Dextroamphetamine/Amphetamine 30 mg PO DAILY 10/01/20 10/01/20 History [Adderall] Diazepam [Valium] 10 mg PO BID PRN 10/01/20 10/01/20 History lisinopriL 20 mg PO DAILY 10/01/20 10/01/20 History Allergies Allergy/AdvReac Type Severity Reaction Status Date / Time amoxicillin [Amoxicillin] Allergy Severe Anaphylaxis, Verified 09/30/20 08:32 seizures bee venom protein (honey bee) Allergy Anaphylaxis Verified 09/30/20 08:32 ciprofloxacin [From Cipro] AdvReac Severe Rash/Hives, Verified 09/30/20 08:32 seizures codeine phosphate AdvReac Unknown Rash/Hives Verified 09/30/20 08:32 [From Tylenol-Codeine #3] cefuroxime axetil AdvReac Rash/Hives Verified 09/30/20 08:32 [From Ceftin] ketorolac [From Toradol] AdvReac Rash/Hives Verified 09/30/20 08:32 latex AdvReac Rash/Hives Verified 09/30/20 08:32 NSAIDS (Non-Steroidal AdvReac Rash/Hives/Lip Verified 09/30/20 08:32 Anti-Inflamma Swelling sulfamethoxazole AdvReac Itching Verified 09/30/20 08:32 [From Bactrim] trimethoprim [From Bactrim] AdvReac Itching Verified 09/30/20 08:32 Physical Examination - Vital Signs Vital Signs: Vital Signs Temp Pulse Pulse Resp BP Pulse Ox 10/02/20 14:59 98.0 F 54 L 18 165/92 96 10/02/20 13:26 66 18 10/02/20 13:17 62 18 10/02/20 07:00 97.8 F 65 18 163/92 97 10/02/20 00:50 98.2 F 61 17 143/81 100 10/01/20 20:00 97.4 F L 84 20 165/95 100 Intake and Output 10/02/20 10/02/20 10/02/20 06:59 14:59 22:59 Other: Voiding Method Indwelling Catheter Indwelling Catheter # Voids 2 900 On examination patient is a young female, in no acute distress. Patient is alert and awake fully oriented. Speech and language functions are normal. Attention, concentration and fund of knowledge is adequate. On cranial nerve exam her pupils are round and reactive to light, visual pacheco are full, e xtraocular muscles are intact with no nystagmus. Face is symmetric, tongue protrudes to the midline. Palatal elevation and sensation normal, hearing and shoulder shrug normal on muscle strength testing there is no pronator drift. The strength is normal in the left arm and left leg. On the right side her biceps 5-, and deltoid 5, Aricept 5, aerial installer 4+5-. Hip flexion is 3+4-, ankle dorsiflexion 3-, plantar flexion 5. Reflexes are very hypoactive to absent. Plantars are flat. Sensory to touch is decreased in the right arm and right leg as compared to the left side. Gait deferred. No obvious ataxia for [id number] testing. Tone and bulk of muscles normal. On general examination there is no carotid bruit or murmur, peripheral pulses present. Abdomen soft nontender. Chest is clear. No rash. Results - Laboratory Findings CBC and BMP: 10/01/20 09:11 10/01/20 09:11 Abnormal Lab Findings: Abnormal Labs 10/01/20 10/01/20 10/01/20 09:11 09:11 09:11 WBC 33.1 H Plt Count 686 H Neutrophils # 28.6 H BUN 19 H Glucose 123 H Plasma Lactic Acid Tom 3.7 H* ALT 35 H Urine Protein Urine Blood Ur Leukocyte Esterase Urine WBC Urine Bacteria Urine Mucus 10/01/20 11:03 WBC Plt Count Neutrophils # BUN Glucose Plasma Lactic Acid Tom ALT Urine Protein Trace H Urine Blood Small H Ur Leukocyte Esterase Moderate H Urine WBC 14 H Urine Bacteria Rare H Urine Mucus Rare H Assessment and Plan Assessment: * Relapsing remitting multiple sclerosis. Patient believes she has new symptoms involving right lateral visual field, and slight worsening of baseline weakness of her right hand and foot. Rule out MS exacerbation, rule out unmasking old lesion due to sepsis. * Bacteremia with gram-negative bacilli. UTI. * Obesity Plan: * Patient is currently on antibiotics with cefepime. * Discussed with infectious disease, recommend holding off on high-dose Solu- Medrol because of bacteremia. Agree with treatment of urosepsis at this time. * Patient requesting some medication for sleep, we will give her trazodone. * We will follow clinically.
[2020-10-02] MEDS: CEFEPIME 2 GM in SODIUM CHLORIDE 0.9% 100 ML IVPB SCH (20:42)
[2020-10-02] MEDS ORDERED: methylPREDNISolone SOD SUCC 1,000 MG in SODIUM CHLORIDE 0.9% 250 ML IVPB SCH (21:00)
[2020-10-02] MEDS: traZODone HCL 50 MG TAB PO SCH (23:00)
[2020-10-03] MEDS: ONDANSETRON 4 MG/2 ML VIAL IVP PRN ×3 (04:57→18:03)
[2020-10-03] MEDS: HYDROmorphone 1 MG/ML 1 ML SYRINGE IVP PRN ×2 (04:58→11:03)
[2020-10-03 06:27] LABS: HCG,Qualitative Serum Not Detected
[2020-10-03] MEDS: ALBUTEROL NEBULIZED 2.5 MG/3 ML INHALATION PRN (08:01)
[2020-10-03] MEDS: lisinopriL 20 MG TAB PO SCH (08:38)
[2020-10-03] MEDS: CEFEPIME 2 GM in SODIUM CHLORIDE 0.9% 100 ML IVPB SCH (08:38)
[2020-10-03] MEDS: amLODIPine 5 MG TAB PO SCH (08:38)
[2020-10-03] MEDS: diazePAM 5 MG TAB PO PRN (08:38)
[2020-10-03] MEDS: SODIUM CHLORIDE 0.9% 1,000 ML IV SCH ×2 (08:38→20:04)
[2020-10-03] MEDS: oxyCODONE-APAP 10-325MG 1 EACH TAB PO PRN ×3 (08:42→20:51)
--- NOTE | 2020-10-03 08:51 | US ---
EXAMINATION TYPE: US kidneys/renal and bladder DATE OF EXAM: 10/03/2020 COMPARISON: CT, US CLINICAL HISTORY: uti and bacteremia; Sepsis EXAM MEASUREMENTS: Right Kidney: 10.4 x 6.4 x 4.1 cm Left Kidney: 9.9 x 5.8 x 6.2 cm Post Void Residual Volume: not assessed on inpatient Right Kidney: No hydronephrosis or masses seen Left Kidney: No hydronephrosis or masses seen Bladder: bladder not fully distended, thus bladder wall appears thickened Bilateral Jets seen: yes There is no evidence for hydronephrosis at this point in time. No nephrolithiasis is seen. No lorie s are identified. The urinary bladder is anechoic. Bilateral ureteral jets are seen. IMPRESSION: Limited assessment of the bladder due to incomplete distention.
[2020-10-03] MEDS: PATIENT'S OWN (Dextroamphetamine/Amphetamine [Adderall] 30 MG Tablet) PO SCH (09:00)
[2020-10-03 09:19] LABS: HCT 34.3 % (37.2-46.3); HGB 10.7 g/dL (12.0-15.0); MCH 28.4 pg (27.0-32.0); MCHC 31.2 g/dL (32.0-37.0); Mean Platelet Volume 10.9 fL (9.5-12.2); Platelet Count 520 X 10*3/uL (140-440); RBC 3.77 X 10*6/uL (4.10-5.20); RDW 13.9 % (11.5-14.5); WBC 22.19 X 10*3/uL (4.50-10.00)
[2020-10-03 09:38] LABS: BUN/Creat Ratio 21.11 Ratio (12.00-20.00); Calcium 8.3 mg/dL (8.7-10.3); Carbon Dioxide 25.9 mmol/L (21.6-31.8); Chloride 105 mmol/L (96-109); Glucose 125 mg/dL (70-110); Non-African American GFR(CKD) 81.1 (60.0-200.0); Potassium 4.1 mmol/L (3.5-5.5); Sodium 139 mmol/L (135-145)
[2020-10-03] MEDS: CYCLOBENZAPRINE 10 MG TAB PO PRN ×2 (11:04→17:12)
[2020-10-03 12:06] LABS: Basophils # (M) 0 X 10*3/uL (0.00-0.10); Eosinophils # (M) 0 X 10*3/uL (0.04-0.35); Lymphocytes # (M) 4.88 X 10*3/uL (0.90-5.00); Monocytes # (M) 0.44 X 10*3/uL (0.20-1.00); Neutrophils # (M) 16.86 X 10*3/uL (2.00-8.90); Neutrophils % (M) 76 %
--- NOTE | 2020-10-03 13:32 | P.PN ---
Subjective 40yo female with history of MS, currently stating she is undergoing a "flare" presenting to ER today for elevated BP reading at the infusion center and vision changes right eye (white spot) that began last night. Patient states she has pain/burning of the right side of face and had a white spot in the very corner of her vision when looking to the far right. Denies eye pain specifically. She states sometimes this happens with optic neuritis. Patient denies diplopia. Patient states her flare began about 3-4 days ago and began with pain and inc reasing weakness in her right leg below the knee that typically occurs when she has these episodes. She states her neurologist then prescribed her 1000mg of solumedrol infusion and she states she is going on her second but was vomiting when she got to the center and had elevated blood pressure so she staes they sent her here for evaluation. patient denies headaches, fevers, neck stiffness, denies abdominal pain but states she feels lower abdominal fullness and pain at the end of stream--this is consistent with urinalysis. pt states that she is taking the macrobid as directly. Denies back/flank pain. Patient denies additional complaints. 10/02/2020 This is a pleasant 40 years old female who presents with signs and symptoms of UTI, she was started on ceftriaxone and infectious disease consulted change her antibiotics to cefepime Also patient was complaining of from possible MS flare up with right eye blurred vision with blind white spot, feel her right side of the face with pain, recurr ent to qa analyst and cannot feel her right foot with some weakness on the dorsi and plantarflexion of the right ankle. She went to see her neurologist who prescribed her Solu-Medrol for 3 days resulting in high blood pressure. So she presented to the emergency room with dysuria. Also patient has been co mplaining of from pain and spasm in the lower extremity Patient was asking about Dilaudid, she is already prescribed 0.5 mg every 3 hours and she wanted the dose to be increased, she states that her pain is all over her body. Also she has been prescribed Valium 10 mg twice daily. I explained to the patient the risks of narcotics especially in combination with benzodiazepine will increase the risk of respiratory depression and/or , she verbalized understanding however was asking vigorously to keep the pain medication and threatening to the hospital after I decrease her Dilaudid to 0.5 mg every 6 hours However eventually patient agrees for Dilaudid 1 mg every 6 hours today and stop the Dilaudid tomorrow and start her on Percocet every 6 hours Also she agrees to stop the Valium tomorrow. We lowered her volume dose to 5 mg twice a day Neurologist evaluated the patient for possible MS flareups including numbness of the right face and weakness of the right hand and right foot, however he recommended to hold off on Solu-Medrol for positive urine and blood culture with a chrome negative bacilli Review of systems CONSTITUTIONAL: No fever, no malaise, no fatigue. HEENT: No recent visual problems or hearing problems. Denied any sore throat. CARDIOVASCULAR: No orthopnea, PND, no palpitations, no syncope. PULMONARY: No shortness of breath, no cough, no hemoptysis. GASTROINTESTINAL: No diarrhea, no nausea, no vomiting, no abdominal pain. Normoactive bowel sounds. -NEUROLOGICAL: As above Active Medications Generic Name Dose Route Start Last Admin Trade Name Freq PRN Reason Stop Dose Admin Albuterol Sulfate 2.5 mg 10/01/20 12:02 10/02/20 13:17 Albuterol Nebulized 2.5 Mg/3 Ml INHALATION 2.5 mg RT-QID PRN Administration Shortness Of Breath Albuterol/Ipratropium 3 ml 10/01/20 12:02 Ipratropium-Albuterol 3 Ml Neb INHALATION RT-QID PRN Shortness Of Breath Cyclobenzaprine HCl 10 mg 10/01/20 12:02 10/02/20 17:55 Cyclobenzaprine 10 Mg Tab PO 10 mg TID PRN Administration Muscle Pain Diazepam 5 mg 10/02/20 10:50 10/02/20 19:09 Diazepam 5 Mg Tab PO 5 mg BID PRN Administration Muscle Spasm Hydromorphone HCl 1 mg 10/02/20 11:37 10/02/20 17:50 Hydromorphone 1 Mg/Ml 1 Ml Syringe IVP 1 mg Q6HR PRN Administration Pain Sodium Chloride 1,000 mls @ 75 mls/hr 10/01/20 09:00 10/02/20 20:43 Saline 0.9% IV 130 mls/hr .[id number] KITA Administration Cefepime HCl 2 gm/ Sodium 100 mls @ 25 mls/hr 10/02/20 21:00 10/02/20 20:42 Chloride IVPB 25 mls/hr Q12HR KITA Administration Lisinopril 20 mg 10/01/20 12:15 10/02/20 08:12 Lisinopril 20 Mg Tab PO 20 mg DAILY KITA Administration Naloxone HCl 0.2 mg 10/01/20 10:23 Naloxone 0.4 Mg/Ml 1 Ml Vial IV Q2M PRN Opioid Reversal Patient's Own ( 30 mg 10/02/20 09:00 10/02/20 09:50 Dextroamphetamine/ PO Not Given Amphetamine [ DAILY [facility] Adderall] 30 Mg Tablet) Ondansetron HCl 4 mg 10/01/20 10:19 10/02/20 14:05 Ondansetron 4 Mg/2 Ml Vial IVP 4 mg Q8H PRN Administration Vomiting Oxycodone/Acetaminophen 1 each 10/03/20 11:35 Oxycodone-Apap 10-325mg 1 Each Tab PO Q6H PRN Pain Trazodone HCl 50 mg 10/02/20 21:00 Trazodone Hcl 50 Mg Tab PO HS [facility] Objective - Vital Signs Vital signs: Vital Signs Temp 98.1 F 10/02/20 19:13 Pulse 56 L 10/02/20 19:13 Resp 20 10/02/20 19:13 BP 179/99 10/02/20 19:13 Pulse Ox 95 10/02/20 19:13 Intake & Output 10/02/20 10/02/20 10/03/20 06:59 18:59 06:59 Other: Voiding Method Indwelling Catheter Indwelling Catheter # Voids 2 900 - Exam -GENERAL: The patient is alert and oriented x3, not in any acute distress. Obese HEENT: Pupils are round and equally reacting to light. EOMI. No scleral icterus. No conjunctival pallor. Normocephalic, atraumatic. No pharyngeal erythema. No thyromegaly. CARDIOVASCULAR: S1 and S2 present. No murmurs, rubs, or gallops. PULMONARY: Chest is clear to auscultation, no wheezing or crackles. ABDOMEN: Soft, nontender, nondistended, normoactive bowel sounds. No palpable organomegaly. MUSCULOSKELETAL: No joint swelling or deformity. EXTREMITIES: No cyanosis, clubbing, or pedal edema. -NEUROLOGICAL: Cranial nerves are grossly intact, weak right hand qa analyst, weak right ankle dorsi/plantar flexion SKIN: No rashes. no petechiae. - Labs CBC & Chem 7: 10/01/20 09:11 10/01/20 09:11 Labs: Microbiology - Last 24 Hours (Table) 10/01/20 11:03 Urine Culture - Preliminary Urine,Voided Gram Neg Bacilli 10/01/20 10:47 Blood Culture Gram Stain - Preliminary Blood Blood Culture - Preliminary Gram Neg Bacilli 10/01/20 10:47 Blood Culture - Final Blood Assessment and Plan Assessment: 1. sepsis/UTI with gram-negative bacteremia - Patient is started on IV cefepime as per ID team. Follow up final blood culture and urine culture final results 2. Acute exacerbation of MS; - Neurologist input is appreciated, he recommended to hold on IV Solu-Medrol in view of her sepsis/septicemia 3. Right eye blurred vision with white blood spot -Could be part of her multiple sclerosis, consult ophthalmology team 4. Asthma; not in exacerbation; continue with home inhaler 5. hypertension - Hypertension; continue with home dose of lisinopril 20 mg daily 6. Drug-seeking behavior - Explained to the patient extensively the risk of respiratory suppression and/or associated with narcotics, despite that the patient still asking for higher dose of narcotics and intravenously, also patient threatened to leave the hospital if she is not given pain medication Patient agrees for Dilaudid 1 mg every 6 hours today and stop IV pain medication tomorrow and switch to oral Percocet 7- chronic leukocytosis - Complicated with infection and steroid use DVT prophylaxis; SCDs CODE STATUS; full code
--- NOTE | 2020-10-03 16:11 | PN ---
PROGRESS NOTE DATE OF SERVICE: 10/03/2020 REASON FOR FOLLOWUP: E coli bacteremia secondary to complicated UTI. INTERVAL HISTORY: The patient is currently afebrile. The patient is breathing comfortably. The patient denies having any chest pain or shortness of breath or cough. Abdominal pain has improved. She has been complaining of neurological symptoms, changes and some weakness and Neurology the patient on the IV steroids for her multiple sclerosis exacerbation. PHYSICAL EXAMINATION: Blood pressure 152/83 with a pulse of 75, temperature 97.9. She is 94% on room air. General description is a middle-aged female lying in bed in no distress. RESPIRATORY SYSTEM: Unlabored breathing, clear to auscultation anteriorly. HEART: S1, S2. Regular rate and rhythm. ABDOMEN: Soft, no tenderness. LABS: Hemoglobin is 10.7, white count 22.19, BUN of 19, creatinine 0.9. Blood culture with E coli that is sensitive pathogen. Ultrasound did not show any acute abnormality. DIAGNOSTIC IMPRESSION AND PLAN: Patient with Escherichia coli bacteremia secondary to the urinary source. Ultrasound was negative for any . With sensitive pathogen, antibiotic will be adjusted to Rocephin 2 grams daily. Discontinue cefepime. Will discuss with Neurology in view of concern for the multiple sclerosis exacerbation, may get the steroids to prevent any further neurological complication. Continue supportive care. MMODL / IJN: [id number] /
[2020-10-03] MEDS ORDERED: oxyCODONE-APAP 10-325MG 1 EACH TAB PO PRN (16:55)
[2020-10-03] MEDS: traZODone HCL 50 MG TAB PO SCH (20:50)
--- NOTE | 2020-10-03 21:40 | P.PN ---
Subjective 40yo female with history of MS, currently stating she is undergoing a "flare" presenting to ER today for elevated BP reading at the infusion center and vision changes right eye (white spot) that began last night. Patient states she has pain/burning of the right side of face and had a white spot in the very corner of her vision when looking to the far right. Denies eye pain specifically. She states sometimes this happens with optic neuritis. Patient denies diplopia. Patient states her flare began about 3-4 days ago and began with pain and inc reasing weakness in her right leg below the knee that typically occurs when she has these episodes. She states her neurologist then prescribed her 1000mg of solumedrol infusion and she states she is going on her second but was vomiting when she got to the center and had elevated blood pressure so she staes they sent her here for evaluation. patient denies headaches, fevers, neck stiffness, denies abdominal pain but states she feels lower abdominal fullness and pain at the end of stream--this is consistent with urinalysis. pt states that she is taking the macrobid as directly. Denies back/flank pain. Patient denies additional complaints. 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 She went to see her neurologist who prescribed her Solu-Medrol for 3 days resulting in high blood pressure. So she presented to the emergency room with dysuria. Also patient has been co mplaining of from pain and spasm in the lower extremity Patient was asking about Dilaudid, she is already prescribed 0.5 mg every 3 hours and she wanted the dose to be increased, she states that her pain is all over her body. Also she has been prescribed Valium 10 mg twice daily. I explained to the patient the risks of narcotics especially in combination with benzodiazepine will increase the risk of respiratory depression and/or , she verbalized understanding however was asking vigorously to keep the pain medication and threatening to the hospital after I decrease her Dilaudid to 0.5 mg every 6 hours However eventually patient agrees for Dilaudid 1 mg every 6 hours today and stop the Dilaudid tomorrow and start her on Percocet every 6 hours Also she agrees to stop the Valium tomorrow. We lowered her volume dose to 5 mg twice a day Neurologist evaluated the patient for possible MS flareups including numbness of the right face and weakness of the right hand and right foot, however he recommended to hold off on Solu-Medrol for positive urine and blood culture with a chrome negative bacilli ' 10/03/2020 When I saw the patient today she was sitting in bed looks comfortable not in distress, pleasant she does not complain to me and she does not look in distress due to pain and when I examined her I did not come through an area of tenderness. Patient has been complaining of from pain all over her body. As per my discussion with her yesterday we will stop the IV Dilaudid and place her on Percocet every 6 hours. Also we'll discontinue the Valium. Patient was upset and complaining about stopping her IV pain medication, she was asking specifically about Dilaudid. She tried to switch physician to other service, they talked to sound group of physicians who are on [place] call today but they rejected the case for the nurse stating that they would not give her IV pain medication as well . As per bedside nerve the nurse supervisor matrix also evaluated the patient and felt that IV extra pain medication is not appropriate and she agrees with that physician decision It was felt that given IV pain medication has more risks than benefit especially she still have Valium and her blood which is long acting medication. The risk with oral Percocet still there but it's lower risk that's why did not feel comfortable giving her more. I checked on her with the bedside nurse at 9:30 PM and she told me that the patient while she was talking to her she went to sleep so apparently did not give her any further pain medication or sleeping pills. She already got trazodone. I discussed with the bedside nurse. Patient woke up in the middle of night and asking for more sleeping pill then to give her Benadryl. Also we gave her a one-time dose of prednisone 40 mg which might help with her pain, and to help her with visual changes until supervisor boarding see the patient Patient to another blood culture came back positive for E. coli which is sensitive and antibiotic was adjusted to ceftriaxone per ID team. Repeat blood cultures pending Renal ultrasound is negative for hydronephrosis Patient still complaining of from right hand and foot weakness and right I blurred vision and blind black spot. Neurology team on the case. Machine Egg Washer team also consulted and pending Leukocytosis is trending down to 22K. Patient is eating and the lower border was aligned to 40 mL/h. Blood pressure is controlled Review of systems CONSTITUTIONAL: No fever, no malaise, no fatigue. HEENT: No recent visual problems or hearing problems. Denied any sore throat. CARDIOVASCULAR: No orthopnea, PND, no palpitations, no syncope. PULMONARY: No shortness of breath, no cough, no hemoptysis. GASTROINTESTINAL: No diarrhea, no nausea, no vomiting, no abdominal pain. Normoactive bowel sounds. -NEUROLOGICAL: As above Active Medications Albuterol Sulfate (Albuterol Nebulized 2.5 Mg/3 Ml) 2.5 mg INHALATION RT-QID PRN Albuterol/Ipratropium (Ipratropium-Albuterol 3 Ml Neb) 3 ml INHALATION RT-QID PRN Amlodipine Besylate (Amlodipine 5 Mg Tab) 5 mg PO DAILY [facility] Cyclobenzaprine HCl (Cyclobenzaprine 10 Mg Tab) 10 mg PO TID PRN Sodium Chloride (Saline 0.9%) 1,000 mls @ 40 mls/hr IV .Q24H [facility] Ceftriaxone Sodium 2 gm/ (Sodium Chloride) 50 mls @ 100 mls/hr IVPB Q24H [facility] Lisinopril (Lisinopril 20 Mg Tab) 20 mg PO DAILY [facility] Naloxone HCl (Naloxone 0.4 Mg/Ml 1 Ml Vial) 0.2 mg IV Q2M PRN Patient's Own ( Dextroamphetamine/Amphetamine [ Adderall] 30 Mg Tablet) 30 mg PO DAILY [facility] Ondansetron HCl (Ondansetron 4 Mg/2 Ml Vial) 4 mg IVP Q6H PRN Oxycodone/Acetaminophen (Oxycodone-Apap 10-325mg 1 Each Tab) 1 each PO Q6H PRN Oxycodone/Acetaminophen (Oxycodone-Apap 10-325mg 1 Each Tab) 1 each PO ONCE PRN Trazodone HCl (Trazodone Hcl 50 Mg Tab) 50 mg PO HS [facility] Objective - Vital Signs Vital signs: Vital Signs Temp 97.9 F 10/03/20 08:00 Pulse 77 10/03/20 08:11 Resp 18 10/03/20 08:00 BP 152/83 10/03/20 08:00 Pulse Ox 97 10/03/20 08:01 Intake & Output 10/02/20 10/03/20 10/03/20 18:59 06:59 18:59 Intake Total 236 Balance 236 Intake: Oral 236 Other: Voiding Method Indwelling Catheter Toilet Toilet # Voids 900 3 - Exam -GENERAL: The patient is alert and oriented x3, not in any acute distress. Obese HEENT: Pupils are round and equally reacting to light. EOMI. No scleral icterus. No conjunctival pallor. Normocephalic, atraumatic. No pharyngeal erythema. No thyromegaly. CARDIOVASCULAR: S1 and S2 present. No murmurs, rubs, or gallops. PULMONARY: Chest is clear to auscultation, no wheezing or crackles. ABDOMEN: Soft, nontender, nondistended, normoactive bowel sounds. No palpable organomegaly. MUSCULOSKELETAL: No joint swelling or deformity. EXTREMITIES: No cyanosis, clubbing, or pedal edema. -NEUROLOGICAL: Cranial nerves are grossly intact, weak right hand weld inspector, weak right ankle dorsi/plantar flexion SKIN: No rashes. no petechiae. - Labs CBC & Chem 7: 10/03/20 05:46 10/03/20 05:46 Labs: Abnormal Lab Results - Last 24 Hours (Table) 10/03/20 10/03/20 Range/Units 05:46 05:46 WBC 22.19 H (4.50-10.00) X 10*3/uL RBC 3.77 L (4.10-5.20) X 10*6/uL Hgb 10.7 L (12.0-15.0) g/dL Hct 34.3 L (37.2-46.3) % MCHC 31.2 L (32.0-37.0) g/dL Plt Count 520 H (140-440) X 10*3/uL Plt Count Comment INCREASED A Neutrophils # (Manual) 16.86 H (2.00-8.90) X 10*3/uL Eosinophils # (Manual) 0 L (0.04-0.35) X 10*3/uL BUN/Creatinine Ratio 21.11 H (12.00-20.00) Ratio Glucose 125 H (70-110) mg/dL Calcium 8.3 L (8.7-10.3) mg/dL Microbiology - Last 24 Hours (Table) 10/01/20 10:47 Blood Culture Gram Stain - Final Blood Blood Culture - Final Escherichia coli 10/01/20 11:03 Urine Culture - Preliminary Urine,Voided Gram Neg Bacilli Assessment and Plan Assessment: 1. sepsis/UTI with E. coli bacteremia - Patient is antibiotic change to ceftriaxone as per ID team. Follow up repeat blood culture 2. Acute exacerbation of MS; - Neurologist input is appreciated, he recommended to hold on IV Solu-Medrol in view of her sepsis/septicemia. Prednisone 3. Right eye blurred vision with white blood spot -Could be part of her multiple sclerosis, consult ophthalmology team 4. Asthma; not in exacerbation; continue with home inhaler 5. hypertension - Hypertension; continue with home dose of lisinopril 20 mg daily 6. Drug-seeking behavior - Explained to the patient extensively the risk of respiratory suppression and/or associated with narcotics, despite that the patient still asking for higher dose of narcotics and intravenously, also patient threatened to leave the hospital if she is not given pain medication Patient agrees yesterday to stop her Dilaudid and Valium , however today she was upset, extra dose of Percocet is a provided as well as prednisone. After that patient was found sleepy while talking to the staff. More pain medication have risks more than benefits. Discussed with the staff 7- chronic leukocytosis - Complicated with infection and steroid use DVT prophylaxis; SCDs, and Lovenox CODE STATUS; full code Prognosis is guarded
[2020-10-03] MEDS: predniSONE 20 MG TAB PO SCH (21:45)
--- NOTE | 2020-10-03 22:52 | P.PN ---
Subjective Progress Note Date: 10/03/20 Patient continues to complain of right lateral visual field scotoma, right hand and foot weakness. No new concerns Objective - Vital Signs Vital signs: Vital Signs Temp 97.5 F L 10/03/20 14:47 Pulse 83 10/03/20 14:47 Resp 16 10/03/20 14:47 BP 162/92 10/03/20 14:47 Pulse Ox 100 10/03/20 14:47 Intake & Output 10/02/20 10/03/20 10/03/20 18:59 06:59 18:59 Intake Total 236 Balance 236 Intake: Oral 236 Other: Voiding Method Indwelling Catheter Toilet Toilet # Voids 900 3 2 - Exam Unchanged - Labs CBC & Chem 7: 10/03/20 05:46 10/03/20 05:46 Labs: Abnormal Lab Results - Last 24 Hours (Table) 10/03/20 10/03/20 Range/Units 05:46 05:46 WBC 22.19 H (4.50-10.00) X 10*3/uL RBC 3.77 L (4.10-5.20) X 10*6/uL Hgb 10.7 L (12.0-15.0) g/dL Hct 34.3 L (37.2-46.3) % MCHC 31.2 L (32.0-37.0) g/dL Plt Count 520 H (140-440) X 10*3/uL Plt Count Comment INCREASED A Neutrophils # (Manual) 16.86 H (2.00-8.90) X 10*3/uL Eosinophils # (Manual) 0 L (0.04-0.35) X 10*3/uL BUN/Creatinine Ratio 21.11 H (12.00-20.00) Ratio Glucose 125 H (70-110) mg/dL Calcium 8.3 L (8.7-10.3) mg/dL Microbiology - Last 24 Hours (Table) 10/01/20 11:03 Urine Culture - Final Urine,Voided Escherichia coli 10/01/20 10:47 Blood Culture Gram Stain - Final Blood Blood Culture - Final Escherichia coli Assessment and Plan Assessment: * Relapsing remitting multiple sclerosis. Patient believes she has new symptoms involving right lateral visual field, and slight worsening of baseline weakness of her right hand and foot. Rule out MS exacerbation, rule out unmasking old lesion due to sepsis. * Bacteremia with gram-negative bacilli. UTI. * Obesity Plan: * Patient is currently on antibiotics with cefepime. * Discussed with infectious disease, recommend holding off on high-dose Solu- Medrol because of bacteremia. Agree with treatment of urosepsis at this time. * Patient requesting some medication for pain, we will defer to IM. * We will follow clinically.
[2020-10-04] MEDS: predniSONE 20 MG TAB PO SCH (00:26)
[2020-10-04] MEDS: oxyCODONE-APAP 10-325MG 1 EACH TAB PO PRN ×4 (02:36→22:06)
[2020-10-04] MEDS: CYCLOBENZAPRINE 10 MG TAB PO PRN ×2 (05:46→14:58)
[2020-10-04] MEDS: ONDANSETRON 4 MG/2 ML VIAL IVP PRN ×3 (05:46→22:06)
[2020-10-04] MEDS ORDERED: predniSONE 20 MG TAB PO STA (06:04)
[2020-10-04 06:11] LABS: Basophils % (A) 0 %; Eosinophils # (A) 0.4 k/uL (0-0.7); Eosinophils % (A) 2 %; HCT 36.9 % (34.0-46.0); HGB 12.1 gm/dL (11.4-16.0); Lymphocytes # (A) 4.8 k/uL (1.0-4.8); Lymphocytes % (A) 31 %; MCH 28.6 pg (25.0-35.0); MCHC 32.7 g/dL (31.0-37.0); MCV 87.5 fL (80.0-100.0); Mean Platelet Volume 7.7; Monocytes # (A) 0.6 k/uL (0-1.0); Monocytes % (A) 4 %; Neutrophils # (A) 9.3 k/uL (1.3-7.7); Neutrophils % (A) 61 %; Platelet Count 529 k/uL (150-450); RBC 4.21 m/uL (3.80-5.40); RDW 13.7 % (11.5-15.5); WBC 15.3 k/uL (3.8-10.6)
[2020-10-04 06:13] LABS: African American GFR (CKD) >90 (>60 ml/min/1.73 sqM); Anion Gap 8 mmol/L; Blood Urea Nitrogen 18 mg/dL (7-17); Calcium 8.2 mg/dL (8.4-10.2); Carbon Dioxide 28 mmol/L (22-30); Chloride 101 mmol/L (98-107); Glucose 91 mg/dL (74-99); Non-African American GFR(CKD) 87 (>60 ml/min/1.73 sqM); Potassium 3.9 mmol/L (3.5-5.1); Sodium 137 mmol/L (137-145)
[2020-10-04] MEDS: ENOXAPARIN 40 MG/0.4 ML SYRINGE SQ SCH (08:59)
[2020-10-04] MEDS: amLODIPine 5 MG TAB PO SCH (08:59)
[2020-10-04] MEDS: lisinopriL 20 MG TAB PO SCH (08:59)
[2020-10-04] MEDS: PATIENT'S OWN (Dextroamphetamine/Amphetamine [Adderall] 30 MG Tablet) PO SCH (09:03)
[2020-10-04] MEDS: SODIUM CHLORIDE 0.9% 1,000 ML IV SCH (11:01)
[2020-10-04] MEDS ORDERED: HYDROmorphone 1 MG/ML 1 ML SYRINGE IVP ONE (11:14)
[2020-10-04] MEDS: ALBUTEROL NEBULIZED 2.5 MG/3 ML INHALATION PRN (11:14)
--- NOTE | 2020-10-04 12:16 | P.PN ---
Subjective 40yo female with history of MS, currently stating she is undergoing a "flare" presenting to ER today for elevated BP reading at the infusion center and vision changes right eye (white spot) that began last night. Patient states she has pain/burning of the right side of face and had a white spot in the very corner of her vision when looking to the far right. Denies eye pain specifically. She states sometimes this happens with optic neuritis. Patient denies diplopia. Patient states her flare began about 3-4 days ago and began with pain and inc reasing weakness in her right leg below the knee that typically occurs when she has these episodes. She states her neurologist then prescribed her 1000mg of solumedrol infusion and she states she is going on her second but was vomiting when she got to the center and had elevated blood pressure so she staes they sent her here for evaluation. patient denies headaches, fevers, neck stiffness, denies abdominal pain but states she feels lower abdominal fullness and pain at the end of stream--this is consistent with urinalysis. pt states that she is taking the macrobid as directly. Denies back/flank pain. Patient denies additional complaints. 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 She went to see her neurologist who prescribed her Solu-Medrol for 3 days resulting in high blood pressure. So she presented to the emergency room with dysuria. Also patient has been co mplaining of from pain and spasm in the lower extremity Patient was asking about Dilaudid, she is already prescribed 0.5 mg every 3 hours and she wanted the dose to be increased, she states that her pain is all over her body. Also she has been prescribed Valium 10 mg twice daily. I explained to the patient the risks of narcotics especially in combination with benzodiazepine will increase the risk of respiratory depression and/or , she verbalized understanding however was asking vigorously to keep the pain medication and threatening to the hospital after I decrease her Dilaudid to 0.5 mg every 6 hours However eventually patient agrees for Dilaudid 1 mg every 6 hours today and stop the Dilaudid tomorrow and start her on Percocet every 6 hours Also she agrees to stop the Valium tomorrow. We lowered her volume dose to 5 mg twice a day Neurologist evaluated the patient for possible MS flareups including numbness of the right face and weakness of the right hand and right foot, however he recommended to hold off on Solu-Medrol for positive urine and blood culture with a chrome negative bacilli ' 10/03/2020 When I saw the patient today she was sitting in bed looks comfortable not in distress, pleasant she does not complain to me and she does not look in distress due to pain and when I examined her I did not come through an area of tenderness. Patient has been complaining of from pain all over her body. As per my discussion with her yesterday we will stop the IV Dilaudid and place her on Percocet every 6 hours. Also we'll discontinue the Valium. Patient was upset and complaining about stopping her IV pain medication, she was asking specifically about Dilaudid. She tried to switch physician to other service, they talked to sound group of physicians who are on [place] call today but they rejected the case for the nurse stating that they would not give her IV pain medication as well . As per bedside nerve the nurse blooming mill supervisor also evaluated the patient and felt that IV extra pain medication is not appropriate and she agrees with that physician decision It was felt that given IV pain medication has more risks than benefit especially she still have Valium and her blood which is long acting medication. The risk with oral Percocet still there but it's lower risk that's why did not feel comfortable giving her more. I checked on her with the bedside nurse at 9:30 PM and she told me that the patient while she was talking to her she went to sleep so apparently did not give her any further pain medication or sleeping pills. She already got trazodone. I discussed with the bedside nurse. Patient woke up in the middle of night and asking for more sleeping pill then to give her Benadryl. Also we gave her a one-time dose of prednisone 40 mg which might help with her pain, and to help her with visual changes until laborer carpentry dock see the patient Patient to another blood culture came back positive for E. coli which is sensitive and antibiotic was adjusted to ceftriaxone per ID team. Repeat blood cultures pending Renal ultrasound is negative for hydronephrosis Patient still complaining of from right hand and foot weakness and right I blurred vision and blind black spot. Neurology team on the case. Corporate Tax Preparer team also consulted and pending Leukocytosis is trending down to 22K. Patient is eating and the lower border was aligned to 40 mL/h. Blood pressure is controlled 10/04/2020 Patient still complaining of from some dysuria and flank pain, been treated for E. coli UTI and bacteremia and currently she's been covered with Rocephin 2 g d aily per ID team recommendation. Repeat blood culture is ordered today. Renal ultrasound showed no hydronephrosis. Also she still complaining of from weakness in the right and, right foot and still right eye black blind spots when looking to the right side. Ophthalmology team were notified again today with the consult. One dose of prednisone 40 mg is given, we'll discuss with neurology team for the need for further steroids management for her possible multiple sclerosis She is also complaining from pain all over her body and leg pain. Venous Doppler was negative for DVT. She was placed on Percocet, I talked to her trying to avoid IV pain medication as much as we can she agrees to take 1 dose of IV Dilaudid 1 mg and then to continue with the rest of the day with Percocet. Patient cannot take NSAIDs stating it causes her lips to swell. Other than than her vitals are stable, blood pressure 130/86-161/78 and Norvasc has been added. Leukocytosis is improving down to 15.3 Review of systems CONSTITUTIONAL: No fever, no malaise, no fatigue. HEENT: No recent visual problems or hearing problems. Denied any sore throat. CARDIOVASCULAR: No orthopnea, PND, no palpitations, no syncope. PULMONARY: No shortness of breath, no cough, no hemoptysis. GASTROINTESTINAL: No diarrhea, no nausea, no vomiting, no abdominal pain. Normoactive bowel sounds. -NEUROLOGICAL: As above Active Medications Albuterol Sulfate (Albuterol Nebulized 2.5 Mg/3 Ml) 2.5 mg INHALATION RT-QID PRN Albuterol/Ipratropium (Ipratropium-Albuterol 3 Ml Neb) 3 ml INHALATION RT-QID PRN Amlodipine Besylate (Amlodipine 5 Mg Tab) 5 mg PO DAILY [facility] Cyclobenzaprine HCl (Cyclobenzaprine 10 Mg Tab) 10 mg PO TID PRN Sodium Chloride (Saline 0.9%) 1,000 mls @ 40 mls/hr IV .Q24H [facility] Ceftriaxone Sodium 2 gm/ (Sodium Chloride) 50 mls @ 100 mls/hr IVPB Q24H [facility] Lisinopril (Lisinopril 20 Mg Tab) 20 mg PO DAILY [facility] Naloxone HCl (Naloxone 0.4 Mg/Ml 1 Ml Vial) 0.2 mg IV Q2M PRN Patient's Own ( Dextroamphetamine/Amphetamine [ Adderall] 30 Mg Tablet) 30 mg PO DAILY [facility] Ondansetron HCl (Ondansetron 4 Mg/2 Ml Vial) 4 mg IVP Q6H PRN Oxycodone/Acetaminophen (Oxycodone-Apap 10-325mg 1 Each Tab) 1 each PO Q6H PRN Oxycodone/Acetaminophen (Oxycodone-Apap 10-325mg 1 Each Tab) 1 each PO ONCE PRN Trazodone HCl (Trazodone Hcl 50 Mg Tab) 50 mg PO HS [facility] Objective - Vital Signs Vital signs: Vital Signs Temp 97.8 F 10/04/20 07:00 Pulse 90 10/04/20 11:24 Resp 18 10/04/20 07:00 BP 161/78 10/04/20 07:00 Pulse Ox 98 10/04/20 07:00 Intake & Output 10/03/20 10/04/20 10/04/20 18:59 06:59 18:59 Intake Total 236 Balance 236 Intake: Oral 236 Other: Voiding Method Toilet Toilet # Voids 2 2 - Exam -GENERAL: The patient is alert and oriented x3, not in any acute distress. Obese HEENT: Pupils are round and equally reacting to light. EOMI. No scleral icterus. No conjunctival pallor. Normocephalic, atraumatic. No pharyngeal erythema. No thyromegaly. CARDIOVASCULAR: S1 and S2 present. No murmurs, rubs, or gallops. PULMONARY: Chest is clear to auscultation, no wheezing or crackles. ABDOMEN: Soft, nontender, nondistended, normoactive bowel sounds. No palpable organomegaly. MUSCULOSKELETAL: No joint swelling or deformity. EXTREMITIES: No cyanosis, clubbing, or pedal edema. 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 no petechiae. - Labs CBC & Chem 7: 10/04/20 05:39 10/04/20 05:39 Labs: Abnormal Lab Results - Last 24 Hours (Table) 10/04/20 10/04/20 Range/Units 05:39 05:39 WBC 15.3 H (3.8-10.6) k/uL Plt Count 529 H (150-450) k/uL Neutrophils # 9.3 H (1.3-7.7) k/uL BUN 18 H (7-17) mg/dL Calcium 8.2 L (8.4-10.2) mg/dL Microbiology - Last 24 Hours (Table) 10/01/20 10:47 Blood Culture Gram Stain - Final Blood Blood Culture - Final Escherichia coli 10/01/20 11:03 Urine Culture - Final Urine,Voided Escherichia coli Assessment and Plan Assessment: 1. sepsis/UTI with E. coli bacteremia - Patient is antibiotic change to ceftriaxone as per ID team. Follow up repeat blood culture 2. Acute exacerbation of MS; - Neurologist input is appreciated, he recommended to hold on IV Solu-Medrol in view of her sepsis/septicemia. Prednisone 1 is given. Follow-up with the neurologist 3. Right eye blurred vision with white blood spot -Could be part of her multiple sclerosis, consult ophthalmology team 4. Asthma; not in exacerbation; continue with home inhaler 5. hypertension - Hypertension; continue with home dose of lisinopril 20 mg daily 6. Drug-seeking behavior - Explained to the patient extensively the risk of respiratory suppression and/or associated with narcotics, despite that the patient still asking for higher dose of narcotics and intravenously, also patient threatened to leave the hospital if she is not given pain medication Patient agrees yesterday to stop her Dilaudid and Valium , however today she was upset, extra dose of Percocet is a provided as well as prednisone. After that patient was found sleepy while talking to the staff. More pain medication have risks more than benefits. Discussed with the staff 7- chronic leukocytosis - Complicated with infection and steroid use DVT prophylaxis; SCDs, and Lovenox CODE STATUS; full code Prognosis is guarded
[2020-10-04] MEDS: methylPREDNISolone SOD SUCC 1,000 MG in SODIUM CHLORIDE 0.9% 250 ML IVPB SCH (15:50)
[2020-10-04] MEDS ORDERED: diazePAM 2 MG TAB PO STA (16:20)
[2020-10-04] MEDS: traZODone HCL 50 MG TAB PO SCH (22:06)
--- NOTE | 2020-10-04 23:25 | PN ---
PROGRESS NOTE DATE OF SERVICE: 10/04/2020 REASON FOR FOLLOWUP: E coli bacteremia secondary to urinary source. INTERVAL HISTORY: The patient is currently afebrile. The patient is breathing comfortably. Denies having any chest pain, shortness of breath or cough. No abdominal pain or diarrhea. PHYSICAL EXAMINATION: Blood pressure 152/77 with a pulse of 84, temperature 98.4. She is 97% on room air. General description is a middle-aged female lying in bed in no distress. RESPIRATORY SYSTEM: Unlabored breathing. Clear to auscultation anteriorly. HEART: S1, S2. Regular rate and rhythm. ABDOMEN: Soft. No tenderness. LABS: Hemoglobin is 12.1, white count 15.3, BUN of 18, creatinine 0.96. DIAGNOSTIC IMPRESSION AND PLAN: Patient with Escherichia coli bacteremia. Source likely UTI pyelonephritis. Ultrasound was negative for any patient is covered with Rocephin 2 grams daily. In view of the patient's neurological symptoms and MS exacerbation, it will be okay to start the patient on steroids. Continue supportive care. MMODL / IJN: [id number] /
[2020-10-05] MEDS: CYCLOBENZAPRINE 10 MG TAB PO PRN (04:55)
[2020-10-05] MEDS: ONDANSETRON 4 MG/2 ML VIAL IVP PRN ×4 (04:55→23:25)
[2020-10-05] MEDS: oxyCODONE-APAP 10-325MG 1 EACH TAB PO PRN ×4 (04:55→23:25)
[2020-10-05] MEDS ORDERED: oxyCODONE-APAP 5-325MG 1 EACH TAB PO STA (07:51)
[2020-10-05] MEDS ORDERED: ACETAMINOPHEN TAB 325 MG TAB PO PRN (07:51)
[2020-10-05 09:16] LABS: HCT 36.6 % (37.2-46.3); HGB 11.9 g/dL (12.0-15.0); MCH 28.6 pg (27.0-32.0); MCHC 32.5 g/dL (32.0-37.0); Mean Platelet Volume 10.8 fL (9.5-12.2); Platelet Count 608 X 10*3/uL (140-440); RBC 4.16 X 10*6/uL (4.10-5.20); RDW 13.3 % (11.5-14.5); WBC 33.51 X 10*3/uL (4.50-10.00)
[2020-10-05 09:57] LABS: African American GFR (CKD) 108.4 (60.0-200.0); BUN/Creat Ratio 22.5 Ratio (12.00-20.00); Non-African American GFR(CKD) 93.5 (60.0-200.0); Potassium 4.2 mmol/L (3.5-5.5)
[2020-10-05 10:03] LABS: Basophils # (A) 0.07 X 10*3/uL (0.00-0.10); Basophils % (A) 0.2 %; Eosinophils # (A) 0 X 10*3/uL (0.04-0.35); Eosinophils % (A) 0 %; Lymphocytes # (A) 2.15 X 10*3/uL (0.90-5.00); Lymphocytes % (A) 6.4 %; Monocytes # (A) 0.34 X 10*3/uL (0.20-1.00); Neutrophils # (A) 30.32 X 10*3/uL (1.80-7.70); Neutrophils % (A) 90.5 %
--- NOTE | 2020-10-05 10:18 | P.PN ---
Subjective Progress Note Date: 10/04/20 Patient was seen for a follow-up. Patient was seen the tap and die maker technician, who recommended 3 days of IV Solu-Medrol. Official not not available in the electronic record. Patient states that the tap and die maker technician also told her to give her oral tapering course of steroids for about 10-14 days, and also recomm ended for patient to follow-up in his office. Patient continues to complain of right lateral visual field scotoma, right hand and foot weakness. No new concerns. After clearance from IM and infectious disease, patient has been started on Solu-Medrol 1 g IV PB daily for 3 days. No new concerns. Objective - Vital Signs Vital signs: Vital Signs Temp 98.4 F 10/04/20 15:00 Pulse 84 10/04/20 15:00 Resp 18 10/04/20 15:00 BP 152/77 10/04/20 15:00 Pulse Ox 97 10/04/20 15:00 Intake & Output 10/04/20 10/04/20 10/05/20 06:59 18:59 06:59 Other: Voiding Method Toilet # Voids 2 1 # Bowel Movements 1 - Exam Patient's mental status, speech and language functions are normal. Continues to complain of right lateral field scotoma. - Labs CBC & Chem 7: 10/05/20 05:23 10/05/20 05:23 Labs: Abnormal Lab Results - Last 24 Hours (Table) 10/04/20 10/04/20 Range/Units 05:39 05:39 WBC 15.3 H (3.8-10.6) k/uL Plt Count 529 H (150-450) k/uL Neutrophils # 9.3 H (1.3-7.7) k/uL BUN 18 H (7-17) mg/dL Calcium 8.2 L (8.4-10.2) mg/dL Microbiology - Last 24 Hours (Table) 10/01/20 10:47 Blood Culture Gram Stain - Final Blood Blood Culture - Final Escherichia coli 10/01/20 11:03 Urine Culture - Final Urine,Voided Escherichia coli Assessment and Plan Assessment: * Relapsing remitting multiple sclerosis. Patient believes she has new symptoms involving right lateral visual field, and slight worsening of baseline weakness of her right hand and foot. Rule out MS exacerbation, rule out unmasking old lesion due to sepsis. * Urosepsis with Bacteremia due to E. coli. * Obesity Plan: * Patient is currently on antibiotics with ceftriaxone. IM and infectious disease have cleared the patient for steroids. Patient started on Solu-Medrol 1 g IV PB daily for 3 days. Thereafter patient will be given oral tapering down dose of steroids. * We will start Pepcid 20 mg twice a day for gastric ulcer prophylaxis. * We will follow clinically.
[2020-10-05] MEDS: ENOXAPARIN 40 MG/0.4 ML SYRINGE SQ SCH (10:21)
[2020-10-05] MEDS: lisinopriL 20 MG TAB PO SCH (10:23)
[2020-10-05] MEDS: amLODIPine 5 MG TAB PO SCH (10:23)
[2020-10-05] MEDS: PATIENT'S OWN (Dextroamphetamine/Amphetamine [Adderall] 30 MG Tablet) PO SCH (11:24)
[2020-10-05] MEDS: SODIUM CHLORIDE 0.9% 1,000 ML IV SCH ×2 (11:24→23:31)
[2020-10-05] MEDS ORDERED: HYDROmorphone 1 MG/ML 1 ML SYRINGE ONE (12:19)
--- NOTE | 2020-10-05 12:28 | P.PN ---
Subjective 40yo female with history of MS, currently stating she is undergoing a "flare" presenting to ER today for elevated BP reading at the infusion center and vision changes right eye (white spot) that began last night. Patient states she has pain/burning of the right side of face and had a white spot in the very corner of her vision when looking to the far right. Denies eye pain specifically. She states sometimes this happens with optic neuritis. Patient denies diplopia. Patient states her flare began about 3-4 days ago and began with pain and inc reasing weakness in her right leg below the knee that typically occurs when she has these episodes. She states her neurologist then prescribed her 1000mg of solumedrol infusion and she states she is going on her second but was vomiting when she got to the center and had elevated blood pressure so she staes they sent her here for evaluation. patient denies headaches, fevers, neck stiffness, denies abdominal pain but states she feels lower abdominal fullness and pain at the end of stream--this is consistent with urinalysis. pt states that she is taking the macrobid as directly. Denies back/flank pain. Patient denies additional complaints. 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 She went to see her neurologist who prescribed her Solu-Medrol for 3 days resulting in high blood pressure. So she presented to the emergency room with dysuria. Also patient has been co mplaining of from pain and spasm in the lower extremity Patient was asking about Dilaudid, she is already prescribed 0.5 mg every 3 hours and she wanted the dose to be increased, she states that her pain is all over her body. Also she has been prescribed Valium 10 mg twice daily. I explained to the patient the risks of narcotics especially in combination with benzodiazepine will increase the risk of respiratory depression and/or , she verbalized understanding however was asking vigorously to keep the pain medication and threatening to the hospital after I decrease her Dilaudid to 0.5 mg every 6 hours However eventually patient agrees for Dilaudid 1 mg every 6 hours today and stop the Dilaudid tomorrow and start her on Percocet every 6 hours Also she agrees to stop the Valium tomorrow. We lowered her volume dose to 5 mg twice a day Neurologist evaluated the patient for possible MS flareups including numbness of the right face and weakness of the right hand and right foot, however he recommended to hold off on Solu-Medrol for positive urine and blood culture with a chrome negative bacilli ' 10/03/2020 When I saw the patient today she was sitting in bed looks comfortable not in distress, pleasant she does not complain to me and she does not look in distress due to pain and when I examined her I did not come through an area of tenderness. Patient has been complaining of from pain all over her body. As per my discussion with her yesterday we will stop the IV Dilaudid and place her on Percocet every 6 hours. Also we'll discontinue the Valium. Patient was upset and complaining about stopping her IV pain medication, she was asking specifically about Dilaudid. She tried to switch physician to other service, they talked to sound group of physicians who are on [place] call today but they rejected the case for the nurse stating that they would not give her IV pain medication as well . As per bedside nerve the nurse contact and service clerks supervisor also evaluated the patient and felt that IV extra pain medication is not appropriate and she agrees with that physician decision It was felt that given IV pain medication has more risks than benefit especially she still have Valium and her blood which is long acting medication. The risk with oral Percocet still there but it's lower risk that's why did not feel comfortable giving her more. I checked on her with the bedside nurse at 9:30 PM and she told me that the patient while she was talking to her she went to sleep so apparently did not give her any further pain medication or sleeping pills. She already got trazodone. I discussed with the bedside nurse. Patient woke up in the middle of night and asking for more sleeping pill then to give her Benadryl. Also we gave her a one-time dose of prednisone 40 mg which might help with her pain, and to help her with visual changes until business executive see the patient Patient to another blood culture came back positive for E. coli which is sensitive and antibiotic was adjusted to ceftriaxone per ID team. Repeat blood cultures pending Renal ultrasound is negative for hydronephrosis Patient still complaining of from right hand and foot weakness and right I blurred vision and blind black spot. Neurology team on the case. Bag Cutter team also consulted and pending Leukocytosis is trending down to 22K. Patient is eating and the lower border was aligned to 40 mL/h. Blood pressure is controlled 10/04/2020 Patient still complaining of from some dysuria and flank pain, been treated for E. coli UTI and bacteremia and currently she's been covered with Rocephin 2 g d aily per ID team recommendation. Repeat blood culture is ordered today. Renal ultrasound showed no hydronephrosis. Also she still complaining of from weakness in the right and, right foot and still right eye black blind spots when looking to the right side. Ophthalmology team were notified again today with the consult. One dose of prednisone 40 mg is given, we'll discuss with neurology team for the need for further steroids management for her possible multiple sclerosis She is also complaining from pain all over her body and leg pain. Venous Doppler was negative for DVT. She was placed on Percocet, I talked to her trying to avoid IV pain medication as much as we can she agrees to take 1 dose of IV Dilaudid 1 mg and then to continue with the rest of the day with Percocet. Patient cannot take NSAIDs stating it causes her lips to swell. Other than than her vitals are stable, blood pressure 130/86-161/78 and Norvasc has been added. Leukocytosis is improving down to 15.3 10/05/2020 Patient reports some improvement in her neurological symptoms including the region right hand and right foot but not completely resolved. Also today was complain of from headache and she vomited once or twice although there was suspicion of soft vomiting as per staff Patient also thinks her urinary symptoms are improving gradually. No much of flank pain or suprapubic tenderness compared to yesterday Neurology already evaluated the patient and start her on 1000 mg daily 3 days Her blood pressure on the high side most likely due to steroid. Patient specifically asking for Dilaudid. She has some objective reason for pain like her MS lesions and the UTI and bacteremia however also we think that part of it is drug seeking. I discussed with her as usual including the risk of addiction and respiratory depression and/or , she still wants to be Dilaudid, 1 extra doses is provided for her today. Continue with Percocet. I offered to call pain management team but patient declined stating she wants to continue with this current plan of pain management. Infectious disease on the case. And she still and ceftriaxone. Repeat blood cultures were no growth after 24 hours as per staff business executive have evaluated the patient and he mentioned that she might have some peripheral visual loss from her neurological disease however his daughter is pending Review of systems CONSTITUTIONAL: No fever, no malaise, no fatigue. HEENT: No recent visual problems or hearing problems. Denied any sore throat. CARDIOVASCULAR: No orthopnea, PND, no palpitations, no syncope. PULMONARY: No shortness of breath, no cough, no hemoptysis. GASTROINTESTINAL: No diarrhea, no nausea, no vomiting, no abdominal pain. Normoactive bowel sounds. -NEUROLOGICAL: As above Active Medications Albuterol Sulfate (Albuterol Nebulized 2.5 Mg/3 Ml) 2.5 mg INHALATION RT-QID PRN Albuterol/Ipratropium (Ipratropium-Albuterol 3 Ml Neb) 3 ml INHALATION RT-QID PRN Amlodipine Besylate (Amlodipine 5 Mg Tab) 5 mg PO DAILY [facility] Cyclobenzaprine HCl (Cyclobenzaprine 10 Mg Tab) 10 mg PO TID PRN Sodium Chloride (Saline 0.9%) 1,000 mls @ 40 mls/hr IV .Q24H [facility] Ceftriaxone Sodium 2 gm/ (Sodium Chloride) 50 mls @ 100 mls/hr IVPB Q24H [facility] Lisinopril (Lisinopril 20 Mg Tab) 20 mg PO DAILY KITA Naloxone HCl (Naloxone 0.4 Mg/Ml 1 Ml Vial) 0.2 mg IV Q2M PRN Patient's Own ( Dextroamphetamine/Amphetamine [ Adderall] 30 Mg Tablet) 30 mg PO DAILY [facility]ITA Ondansetron HCl (Ondansetron 4 Mg/2 Ml Vial) 4 mg IVP Q6H PRN Oxycodone/Acetaminophen (Oxycodone-Apap 10-325mg 1 Each Tab) 1 each PO Q6H PRN Oxycodone/Acetaminophen (Oxycodone-Apap 10-325mg 1 Each Tab) 1 each PO ONCE PRN Trazodone HCl (Trazodone Hcl 50 Mg Tab) 50 mg PO HS [facility]ITA Objective - Vital Signs Vital signs: Vital Signs Temp 97.7 F 10/05/20 07:00 Pulse 88 10/05/20 07:00 Resp 18 10/05/20 08:00 BP 168/103 10/05/20 07:00 Pulse Ox 94 L 10/05/20 07:00 Intake & Output 10/04/20 10/05/20 10/05/20 18:59 06:59 18:59 Other: # Voids 1 1 # Bowel Movements 1 - Exam -GENERAL: The patient is alert and oriented x3, not in any acute distress. Obese HEENT: Pupils are round and equally reacting to light. EOMI. No scleral icterus. No conjunctival pallor. Normocephalic, atraumatic. No pharyngeal erythema. No thyromegaly. CARDIOVASCULAR: S1 and S2 present. No murmurs, rubs, or gallops. PULMONARY: Chest is clear to auscultation, no wheezing or crackles. ABDOMEN: Soft, nontender, nondistended, normoactive bowel sounds. No palpable organomegaly. MUSCULOSKELETAL: No joint swelling or deformity. EXTREMITIES: No cyanosis, clubbing, or pedal edema. -NEUROLOGICAL: Cranial nerves are grossly intact, weak right hand movie producer, weak right ankle dorsi/plantar flexion SKIN: No rashes. no petechiae. - Labs CBC & Chem 7: 10/05/20 05:23 10/05/20 05:23 Labs: Abnormal Lab Results - Last 24 Hours (Table) 10/05/20 10/05/20 Range/Units 05:23 05:23 WBC 33.51 H (4.50-10.00) X 10*3/uL Hgb 11.9 L (12.0-15.0) g/dL Hct 36.6 L (37.2-46.3) % Plt Count 608 H (140-440) X 10*3/uL Plt Count Comment INCREASED A Immature Gran # 0.63 H (0.00-0.04) X 10*3/uL Neutrophils # 30.32 H (1.80-7.70) X 10*3/uL Eosinophils # 0 L (0.04-0.35) X 10*3/uL BUN/Creatinine Ratio 22.50 H (12.00-20.00) Ratio Glucose 188 H (70-110) mg/dL Microbiology - Last 24 Hours (Table) 10/04/20 05:39 Blood Culture - Preliminary Blood No Growth after 24 hours 10/01/20 10:47 Blood Culture Gram Stain - Final Blood Blood Culture - Final Escherichia coli Assessment and Plan Assessment: 1. sepsis/UTI with E. coli bacteremia - Patient is antibiotic change to ceftriaxone as per ID team. Follow up repeat blood culture 2. Acute exacerbation of MS; - Neurologist input is appreciated, he recommended to start IV Solu-Medrol 3. Follow-up with the neurologist 3. Right eye blurred vision with white blood spot -Could be part of her multiple sclerosis -ophthalmology team Dr. Kemp evaluated the patient per staff 4. Asthma; not in exacerbation; continue with home inhaler 5. hypertension - Hypertension; continue with home dose of lisinopril 20 mg daily 6. Drug-seeking behavior - Explained to the patient extensively the risk of respiratory suppression and/or associated with narcotics, despite that the patient still asking for higher dose of narcotics and intravenously, also patient threatened to leave the hospital if she is not given pain medication Patient agrees yesterday to stop her Dilaudid and Valium , however today she was upset, extra dose of Percocet is a provided as well as prednisone. After that patient was found sleepy while talking to the staff. More pain medication have risks more than benefits. Discussed with the staff 7- chronic leukocytosis - Complicated with infection and steroid use DVT prophylaxis; SCDs, and Lovenox CODE STATUS; full code Prognosis is guarded
--- NOTE | 2020-10-05 14:18 | CONS ---
CONSULTATION OPHTHALMOLOGY CONSULT: CONSULTATION DATE: 10/04/2020. CHIEF COMPLAINT: Poor peripheral vision. HISTORY OF PRESENT ILLNESS: Ms. Uriarte is a 40-year-old female with a notable change in her vision over the last week or so. The patient noted sudden onset change in her right peripheral visual field. The patient notes that this began suddenly and has continued since the time of onset. There has been some improvement in the peripheral vision loss. There are no associated flashes or floaters or other symptoms. There is no associated diplopia. There is no associated headache or numbness or weakness. REVIEW OF SYSTEMS: As above, the patient also noted some right-sided arm changes that she has experienced previously with multiple sclerosis. She denies fever, chills, headaches, or shortness of breath or palpitations. PAST MEDICAL HISTORY: Multiple sclerosis, asthma, fibromyalgia, GERD, hypertension, seizure disorder, migraines. PAST SURGICAL HISTORY: No ophthalmic surgery. Significant for cholecystectomy, left shoulder surgery, left knee surgery. HOME MEDICATIONS: Albuterol and Atrovent. DRUG ALLERGIES: AMOXICILLIN, CIPROFLOXACIN, CODEINE, CEFTIN, LATEX, and NSAIDs. SOCIAL HISTORY: Current smoker, denies alcohol use. OPHTHALMIC EXAM: Visual acuity is 20/30 at near in the right eye and 20/25 at near in the left eye without correction. The pupils are equal, round, reactive to light accommodation. There is no a fair pupillary defect. Extraocular movements are full in both eyes. Confrontation visual field reveals a slight right-sided homonymous hemianopsia that is noted with each eye separately on confrontation. The anterior exam is within normal limits. The sclerae and conjunctivae are normal. The cornea is clear. Anterior chambers deep. The lens is clear. Posterior examination is limited however, essentially within normal limits. There is no notable optic disc edema on limited exam. The peripheral retina is within normal limits. ASSESSMENT AND PLAN: Homonymous right hemianopsia. This is difficult to evaluate in an inpatient setting. Specific visual field testing in the office will need to be conducted after the patient is discharged. The right homonymous defect may be related to a current exacerbation of her multiple sclerosis. Review of an MRI would be helpful to see if any demyelinating lesions are affecting the corresponding left occipital lobe. I recommend treatment with IV Solu-Medrol for 3 days followed by 11 days of oral prednisone. Typically a dose of 60 mg per day of the oral steroid should be used, which is then typically tapered down over the 11-day course. Due to her complex multiple sclerosis history and visual symptoms, I have urged the patient to follow up in the office for followup testing and additional treatment if necessary. I had seen the patient previously in consultation 3 years ago. However, she did not follow up as I had recommended. At this point, after her treatment, I would like to have her follow up in the office within 2 weeks for additional outpatient management. Thank you for allowing me to participate in this patient's care. JESSICA / CEEN: [id number] /
[2020-10-05] MEDS ORDERED: LORazepam 2 MG/ML INJ IV STA (14:34)
[2020-10-05] MEDS: methylPREDNISolone SOD SUCC 1,000 MG in SODIUM CHLORIDE 0.9% 250 ML IVPB SCH (17:16)
[2020-10-05] MEDS: traZODone HCL 50 MG TAB PO SCH (19:55)
[2020-10-05] MEDS ORDERED: diazePAM 2 MG TAB PO STA (20:03)
--- NOTE | 2020-10-05 23:22 | PN ---
PROGRESS NOTE DATE OF SERVICE: 10/05/2020 REASON FOR FOLLOWUP: E coli UTI and bacteremia. INTERVAL HISTORY: The patient is currently afebrile. She is breathing comfortably. Denies having any chest pain or shortness of breath or cough. No abdominal pain and no diarrhea. PHYSICAL EXAMINATION: Blood pressure 132/90 with a pulse of 85, temperature 98. She is 99% on room air. General description is a middle-aged female lying in bed in no distress. RESPIRATORY SYSTEM: Unlabored breathing. Clear to auscultation anteriorly. HEART: S1, S2. Regular rate and rhythm. ABDOMEN: Soft. No tenderness. LABS: Repeat blood culture has been negative. White count is elevated, more likely steroid effect. DIAGNOSTIC IMPRESSION AND PLAN: Patient with an Escherichia coli bacteremia secondary to urinary source. Repeat blood culture has been negative. Patient is covered with Rocephin 2 grams ; to continue while monitoring clinical course closely. Continue supportive care. MMODL / IJN: [id number] /
[2020-10-06] MEDS: oxyCODONE-APAP 10-325MG 1 EACH TAB PO PRN ×3 (05:11→16:45)
[2020-10-06] MEDS: ONDANSETRON 4 MG/2 ML VIAL IVP PRN ×2 (05:12→14:12)
[2020-10-06] MEDS: CYCLOBENZAPRINE 10 MG TAB PO PRN ×2 (05:13→11:27)
[2020-10-06 07:58] VITALS: TEMP 97.8
[2020-10-06] MEDS: amLODIPine 5 MG TAB PO SCH (09:16)
[2020-10-06] MEDS: ENOXAPARIN 40 MG/0.4 ML SYRINGE SQ SCH (09:16)
[2020-10-06] MEDS: lisinopriL 20 MG TAB PO SCH (09:16)
[2020-10-06] MEDS ORDERED: HYDROmorphone 0.5 MG/0.5 ML SYRINGE IVP ONE (11:15)
--- NOTE | 2020-10-06 11:23 | MR ---
EXAMINATION TYPE: MR brain wo/w con DATE OF EXAM: 10/06/2020 COMPARISON: Prior MR brain 03/06/2020 HISTORY: MS exacerbation TECHNIQUE: Multiplanar, multisequence images of the brain and brainstem is performed without and with IV contras t, utilizing 10 mL intravenous Gadavist . FINDINGS: Diffusion weighted images demonstrate no evidence of a recent infarct or other diffusion ab normality. There is no extra-axial fluid collection or significant interval change in white matter s ignal abnormality. Extensive pericallosal, posterior corpus callosum, posterior occipital and parieta l, deep white matter hyperintensities are again noted, probable foci of encephalomalacia involving th e posterior cerebral lobes, right posterior parietal lobe again noted. The ventricular system and cis ternal spaces are normal in size and appearance. The brain volume is age appropriate. Midline structures demonstrate normal morphology. The craniocervical junction appears within normal limits. Post contrast images demonstrate no abnormal enhancement. The dural venous sinuses appear pa tent. The visualized sinuses are remarkable for minimal ethmoid air cell, right maxillary sinus infla mmatory change and the globes are intact. IMPRESSION: Extensive white matter demyelination changes are again noted and are stable, no evident p laque enhancement.
[2020-10-06] MEDS: PATIENT'S OWN (Dextroamphetamine/Amphetamine [Adderall] 30 MG Tablet) PO SCH (11:40)
[2020-10-06 12:38] VITALS: BMI 35.5
[2020-10-06] MEDS: methylPREDNISolone SOD SUCC 1,000 MG in SODIUM CHLORIDE 0.9% 250 ML IVPB SCH (12:46)
--- NOTE | 2020-10-06 14:05 | PN ---
PROGRESS NOTE DATE OF SERVICE: 10/06/2020 REASON FOR FOLLOWUP: E coli bacteremia secondary to urinary source. INTERVAL HISTORY: The patient is currently afebrile. The patient is feeling better. Breathing comfortably. Denies having any chest pain or cough. No abdominal pain or diarrhea. PHYSICAL EXAMINATION: Blood pressure 176/94, pulse 74, temperature is 97.8. She is 98% on room air. General description is a middle-aged female lying in bed in no distress. RESPIRATORY SYSTEM: Unlabored breathing, clear to auscultation anteriorly. HEART: S1, S2. Regular rate and rhythm. ABDOMEN; Soft, no tenderness. LABS: No new labs have been obtained today. Blood culture repeat has been negative so far. DIAGNOSTIC IMPRESSION AND PLAN: Patient with Escherichia coli bacteremia secondary to urinary source. Ultrasound was negative for abnormality. The patient did have CEFUROXIME allergy on the chart. However, she tolerated Rocephin without any problem. Clinically doubt true allergy. She will finish therapy with oral Ceftin 500 mg twice a day for 10 days and close outpatient followup. Discussed with the admitting physician working on discharge. MMODL / IJN: [id number] /
[2020-10-06 14:49] VITALS: BP 169/95; PULSE 95; RESP 18
[2020-10-06] MEDS ORDERED: amLODIPine 5 MG TAB PO STA (15:14)
--- NOTE | 2020-10-06 15:29 | P.PN ---
Progress Note - Text Progress Note Date: 10/06/20 Patient requires replacement wheelchair to complete ADLs which is unable to be done with a cane or walker because of multiple sclerosis. Patient is able to self propel in the wheelchair.
[2020-10-06] MEDS: SODIUM CHLORIDE 0.9% 1,000 ML IV SCH (16:59)
--- NOTE | 2020-10-06 19:52 | P.PN ---
Subjective Progress Note Date: 10/05/20 Patient was seen for a follow-up. Patient states that she woke up at 5 AM with severe pain in the right frontal temporal region. She rated at 8/10. She was given Percocet. She felt like hot metal was going through the eyeball to the right ear. She started throwing up. Also felt vertigo. Patient was seen the business school dean, who recommended 3 days of IV Solu-Medrol. Official not not available in the electronic record. Patient states that the business school dean also told her to give her oral tapering course of steroids for about 10-14 days, and also recommended for patient to follow-up in his office. Patient continues to complain of right lateral visual field scotoma, right hand and foot weakness. No new concerns. After clearance from IM and infectious disease, patient has been started on Solu-Medrol 1 g IV PB daily for 3 days. No new concerns. Patient states that she has smoked half to 1 pack per day for 20 years, quit 3 years ago. Objective - Vital Signs Vital signs: Vital Signs Temp 97.7 F 10/05/20 07:00 Pulse 88 10/05/20 07:00 Resp 18 10/05/20 08:00 BP 168/103 10/05/20 07:00 Pulse Ox 94 L 10/05/20 07:00 Intake & Output 10/04/20 10/05/20 10/05/20 18:59 06:59 18:59 Other: # Voids 1 1 # Bowel Movements 1 - Exam Patient's mental status, speech and language functions are normal. Continues to complain of right lateral field scotoma. Pupils are round and reacting to light, patient's right eye tends to adduct at times. Patient's muscle strength shows (right/left) deltoid 5-/5-, biceps 5-/5, triceps 5-/5, surveillance inspector 4/5, ankle dorsiflexion and plantarflexion both are 3- to 4+ on the right, 5 on the left. Sensations are decreased on the right side. No ataxia for [id number] testing. - Labs CBC & Chem 7: 10/05/20 05:23 10/05/20 05:23 Labs: Abnormal Lab Results - Last 24 Hours (Table) 10/05/20 10/05/20 Range/Units 05:23 05:23 WBC 33.51 H (4.50-10.00) X 10*3/uL Hgb 11.9 L (12.0-15.0) g/dL Hct 36.6 L (37.2-46.3) % Plt Count 608 H (140-440) X 10*3/uL Plt Count Comment INCREASED A Immature Gran # 0.63 H (0.00-0.04) X 10*3/uL Neutrophils # 30.32 H (1.80-7.70) X 10*3/uL Eosinophils # 0 L (0.04-0.35) X 10*3/uL BUN/Creatinine Ratio 22.50 H (12.00-20.00) Ratio Glucose 188 H (70-110) mg/dL Microbiology - Last 24 Hours (Table) 10/04/20 05:39 Blood Culture - Preliminary Blood No Growth after 24 hours Assessment and Plan Assessment: * Relapsing remitting multiple sclerosis. Patient believes she has new symptoms involving right lateral visual field, and slight worsening of baseline weakness of her right hand and foot. Rule out MS exacerbation, rule out unmasking old lesion due to sepsis. * Urosepsis with Bacteremia due to E. coli. * Obesity Plan: * Continue Solu-Medrol 1 g IV PB daily for total of 3 days. Thereafter patient will be given oral tapering down dose of steroids. * Continue Pepcid 20 mg twice a day for gastric ulcer prophylaxis. * MRI brain with and without contrast to follow-up on her MS. * Pain control as per IM.
--- NOTE | 2020-10-06 19:56 | P.PN ---
Subjective Progress Note Date: 10/06/20 (Late entry) Patient was seen for a follow-up earlier at 9:30 AM. Patient denies any new symptoms. Patient was seen the admitting manager, who recommended 3 days of IV Solu-Medrol. Official not not available in the electronic record. Patient states that the admitting manager also told her to give her oral tapering course of steroids for about 10-14 days, and also recommended for patient to follow-up in his office. Patient continues to complain of right lateral visual field scotoma, right hand and foot weakness. No new concerns. After clearance from IM and infectious disease, patient has been started on Solu-Medrol 1 g IV PB daily for 3 days. No new concerns. Patient states that she has smoked half to 1 pack per day for 20 years, quit 3 years ago. Objective - Vital Signs Vital signs: Vital Signs Temp 97.8 F 10/06/20 07:00 Pulse 95 10/06/20 14:49 Resp 18 10/06/20 14:49 BP 169/95 10/06/20 14:49 Pulse Ox 98 10/06/20 14:49 Intake & Output 10/06/20 10/06/20 10/07/20 06:59 18:59 06:59 Intake Total 1200 Balance 1200 Weight 99.79 kg Intake: Oral 1200 Other: Voiding Method Toilet Toilet # Voids 1 - Exam Deferred. - Labs CBC & Chem 7: 10/05/20 05:23 10/05/20 05:23 Labs: Microbiology - Last 24 Hours (Table) 10/01/20 10:47 Blood Culture Gram Stain - Final Blood Blood Culture - Final Escherichia coli Fusobacterium necrophorum 10/04/20 05:39 Blood Culture - Preliminary Blood No Growth after 48 hours Assessment and Plan Assessment: * Relapsing remitting multiple sclerosis. Patient believes she has new symptoms involving right lateral visual field, and slight worsening of baseline weakness of her right hand and foot. Rule out MS exacerbation, rule out unmasking old lesion due to sepsis. * Urosepsis with Bacteremia due to E. coli. * Obesity Plan: * Continue Solu-Medrol 1 g IVPB daily for total of 3 days. Today is day #3/3. * MRI of the brain with and without contrast revealed extensive white matter demyelination changes are again noted and are stable, no evident plaque enhancement. No acute stroke. * Patient will take prednisone 50 mg daily for 5 days, then decrease by 10 mg daily and take off. * Patient to follow up with the admitting manager and her neurologist. * Neurologically clear for discharge.
--- NOTE | 2020-10-07 01:06 | P.DS ---
Providers Date of admission: 10/04/20 08:53 Attending physician: Chaya Ramírez Consults: 10/01/20 11:07 Consult Physician Routine Consulting Provider: Domingo Ovalle Consult Reason/Comments: leukocytosis Do you want consulting provider notified?: Yes 10/01/20 16:29 Consult Physician Routine Consulting Provider: Gilles Drake Consult Reason/Comments: weakness r foot and visual changes Do you want consulting provider notified?: Yes 10/02/20 11:42 Consult Physician Routine Consulting Provider: Esther Mayo Consult Reason/Comments: ms excerbation Do you want consulting provider notified?: Yes 10/02/20 15:37 Consult Physician Stat Consulting Provider: Mian Kemp Consult Reason/Comments: r eye peripheral vision loss blindness/ms excerbation Do you want consulting provider notified?: Yes Primary care physician: [facility] Course: Diagnoses: 1. sepsis/UTI with E. coli bacteremia 2. Acute exacerbation of MS, with weakness of the right hand, right leg and dried hypertension 3. Right eye blurred vision with white blood spot 4. Asthma; not in exacerbation; continue with home inhaler 5. hypertension 6. Drug-seeking behavior 7- chronic leukocytosis Hospital course: 40yo female with history of MS, and other medical problems as below. Presents because of signs and symptoms of urinary tract infection and found to have UTI and bacteremia secondary to sensitive E. coli. The patient was treated under the guidance of infectious disease team with ceftriaxone, patient showed interval improvement and her symptoms improved her pain is controlled and she wa s discharged on Ceftin for 10 days per ID team recommendation Also on admission she had weakness in her right and, right foot and blurred vision with blind spot on the right I, patient was evaluated by neurologist and insurance account representative, she was placed on high dose of IV steroids 1000 mg daily 3 days and switched to tapered dose of prednisone (paper prescription provided by neurologist Dr. Anderson upon discharge). Her symptoms improved but not completely resolved and patient was instructed to follow up with her neurologist Dr. Monsalve and insurance account representative Dr. Kemp patient agrees essential follow-up Her blood pressure was on the high side and Norvasc is been added, patient was instructed and she is aware steroid shows her blood pressure higher and as she is going to stop steroids she needed to check her blood pressure and adjust her medication accordingly. Patient and she is going to follow up as an outpatient Patient also asked for wound culture to be provided for her, she has an old w heelchair and she has difficulty mobilizing using a cane or walker. Physical therapy recommended subacute rehab but patient declined. A correctional case manager Isabell was on the case. On the day of discharge patient showed significant improvement, she denies chest pain or dyspnea. No abdominal pain. No diarrhea. Urinary symptoms improved. No flank pain. No nausea vomiting. Her right hand, foot weakness are improving significantly. Right Rotation is also improved Patient was cleared for discharge by neurologist and infectious disease team and insurance account representative Problems and management plan were discussed with the patient and he verbalized understanding and acceptance Patient was found stable and can be discharged home however he needs follow-up as an outpatient. Patient was instructed to follow up with PCP Dr. Fitch within one week and patient agrees Patient presents with an appointment with Dr. Kemp on 10/24. Also patient was instructed to follow up with Dr. olivares her neurologist or Dr. Monsalve another neurologist in 1 week and she agrees Of note patient is a afternoon she does not want to wait and she stated that leaving no matter what Physical exam, obese Gen: patient is a AAOx3, no distress CVS: S1-S2, RRR, no murmur Lungs: B/L CTA, no wheezing Abdomen: soft, no distention, no tenderness, positive bowel sounds Extremity: no leg edema or induration -General: Right hand and right foot weakness are improving significantly Time spent more than 35 minutes Patient Condition at Discharge: Stable Plan - Discharge Summary Discharge Rx Participant: No New Discharge Prescriptions: New Cefuroxime Axetil [Ceftin] 500 mg PO BID 10 Days #20 tab amLODIPine [Norvasc] 5 mg PO DAILY #30 tab Acetaminophen Tab [Tylenol] 325 mg PO Q6HR PRN tab PRN Reason: Fever And/ Or Pain Continue Ipratropium/Albuterol Sulfate [Combivent Respimat Inhaler] 2 puff INHALATION RT-QID PRN PRN Reason: Shortness Of Breath Ondansetron [Zofran ODT] 4 mg PO BID PRN PRN Reason: Nausea And Vomiting Metaxalone [Skelaxin] 800 mg PO TID PRN PRN Reason: Muscle Pain Albuterol Inhaler [Ventolin Hfa Inhaler] 2 puff INHALATION RT-QID PRN PRN Reason: Shortness Of Breath oxyCODONE-APAP 10-325MG [Percocet 10-325 mg] 1 tab PO BID PRN PRN Reason: Pain Dextroamphetamine/Amphetamine [Adderall] 30 mg PO DAILY lisinopriL 20 mg PO DAILY Discontinued Nitrofurantoin Monohyd/M-Cryst [Macrobid] 100 mg PO Q12HR 5 Days #10 cap Diazepam [Valium] 10 mg PO BID PRN PRN Reason: Muscle Spasm Discharge Medication List Ipratropium/Albuterol Sulfate [Combivent Respimat Inhaler] 2 puff INHALATION RT- QID PRN 12/09/13 [History] Metaxalone [Skelaxin] 800 mg PO TID PRN 06/13/19 [History] Ondansetron [Zofran ODT] 4 mg PO BID PRN 06/13/19 [History] Albuterol Inhaler [Ventolin Hfa Inhaler] 2 puff INHALATION RT-QID PRN 03/04/20 [History] oxyCODONE-APAP 10-325MG [Percocet 10-325 mg] 1 tab PO BID PRN 03/04/20 [History] Dextroamphetamine/Amphetamine [Adderall] 30 mg PO DAILY 10/01/20 [History] lisinopriL 20 mg PO DAILY 10/01/20 [History] Acetaminophen Tab [Tylenol] 325 mg PO Q6HR PRN tab 10/06/20 [Rx] Cefuroxime Axetil [Ceftin] 500 mg PO BID 10 Days #20 tab 10/06/20 [Rx] amLODIPine [Norvasc] 5 mg PO DAILY #30 tab 10/06/20 [Rx] Follow up Appointment(s)/Referral(s): [facility], [NON-STAFF] - 1-2 Days [facility] [NON-STAFF] - As Needed (supplier of wheelchair) Mian Kemp MD [STAFF PHYSICIAN] - 10/24/20 10:10 am Sneha Monsalve MD [Medical Doctor] - 1 Week (neurologist and pain management physician) Sj Olivares DO [Primary Care Provider] - (Dr Sj Olivares, neurologist in [place]. Office phone [phone]. ) Sj Fitch MD [REFERRING] - 1-[address] [NON-STAFF] - As Needed (contact regarding shower chair) Activity/Diet/Wound Care/Special Instructions: Heart healthy diet Activity is restricted until you see your doctor Discharge Disposition: HOME WITH HOME HEALTH SERVICES
== END 2020-10-06 17:02 | disposition home health service (06) | DRG 872 ==
LOC: EC 08:35 → 6NMEDSUR 10:24 → OBSVTOIN 10-04 08:53
PROVIDERS: ADMIT Internal Medicine; ATTEND Internal Medicine
DX: A41.51 Sepsis due to Escherichia coli [E. coli] (principal); E87.2 Acidosis; N10 Acute pyelonephritis; H53.461 Homonymous bilateral field defects, right side; G35 Multiple sclerosis; G40.909 Epilepsy, unspecified, not intractable, without status epilepticus; I10 Essential (primary) hypertension; F31.9 Bipolar disorder, unspecified; Z20.822 Contact with and (suspected) exposure to COVID-19; I25.10 Atherosclerotic heart disease of native coronary artery without angina pectoris; J45.909 Unspecified asthma, uncomplicated; M79.7 Fibromyalgia; K21.9 Gastro-esophageal reflux disease without esophagitis; G89.29 Other chronic pain; M19.90 Unspecified osteoarthritis, unspecified site; F41.9 Anxiety disorder, unspecified; E66.9 Obesity, unspecified; F90.9 Attention-deficit hyperactivity disorder, unspecified type; G43.909 Migraine, unspecified, not intractable, without status migrainosus; Z79.899 Other long term (current) drug therapy; Z68.35 Body mass index [BMI] 35.0-35.9, adult; Z76.5 Malingerer [conscious simulation]; Z87.01 Personal history of pneumonia (recurrent); Z87.440 Personal history of urinary (tract) infections; Z90.49 Acquired absence of other specified parts of digestive tract; Z88.1 Allergy status to other antibiotic agents; Z88.5 Allergy status to narcotic agent; Z88.0 Allergy status to penicillin; Z88.2 Allergy status to sulfonamides; Z88.8 Allergy status to other drugs, medicaments and biological substances; Z88.6 Allergy status to analgesic agent; Z91.030 Bee allergy status; Z80.52 Family history of malignant neoplasm of bladder; Z82.49 Family history of ischemic heart disease and other diseases of the circulatory system; Z80.49 Family history of malignant neoplasm of other genital organs
CPT/HCPCS: 36415; 70450; 70553; 71046; 76770; 80048; 80053; 81001; 83605; 84703; 85025; 87040; 87077; 87086; 87186; 87635; 93005; 93970; 94640; 94760; 96361; 96365; 96375; 96376; 99285

== ENCOUNTER → 2020-12-25 | Outpatient (CLI) | payer MEDICARE, OTHER ==
[2020-12-25 20:26] LABS: Basophils # (A) 0.08 X 10*3/uL (0.00-0.10); Basophils % (A) 0.5 %; Eosinophils % (A) 1.8 %; HCT 42.7 % (37.2-46.3); HGB 13.5 g/dL (12.0-15.0); Lymphocytes # (A) 3.42 X 10*3/uL (0.90-5.00); Lymphocytes % (A) 20.1 %; MCH 28.6 pg (27.0-32.0); MCHC 31.6 g/dL (32.0-37.0); MCV 90.5 fL (80.0-97.0); Monocytes # (A) 1.18 X 10*3/uL (0.20-1.00); Monocytes % (A) 6.9 %; Neutrophils # (A) 11.99 X 10*3/uL (1.80-7.70); Neutrophils % (A) 70.3 %; Platelet Count 460 X 10*3/uL (140-440); RBC 4.72 X 10*6/uL (4.10-5.20); RDW 12.9 % (11.5-14.5); WBC 17.04 X 10*3/uL (4.50-10.00)
[2020-12-25 21:07] LABS: Anion Gap 10.2 mmol/L (4.00-12.00); Carbon Dioxide 22.8 mmol/L (21.6-31.8); Potassium 4.2 mmol/L (3.5-5.5)
[2020-12-25 21:26] LABS: T4, Free (Free Thyroxine) 0.8 ng/dL (0.80-1.80)
[2020-12-25 21:48] LABS: Erythrocyte Sedimentation Rate 15 mm/Hr (0-20)
[2020-12-26 07:32] LABS: Urine Alcohol Negative (Negative); Urine Barbiturate Negative (Negative); Urine Cocaine Negative (Negative); Urine Methadone Negative (Negative); Urine Opiates Negative (Negative); Urine Phencyclidine Negative (Negative)
== END | disposition home or self-care (01) ==
LOC: LABWHC1 14:03
PROVIDERS: ATTEND Physician Assistant
DX: R41.3 Other amnesia (principal); Z79.891 Long term (current) use of opiate analgesic
CPT/HCPCS: 36415; 80051; 80306; 82140; 82607; 82746; 84439; 84450; 84460; 84481; 85025; 85652; 86038; 86780

== ENCOUNTER 2021-03-19 05:17 | Emergency (ER) | payer OTHER, MEDICARE ==
[2021-03-19 05:30] VITALS: BP 163/100; PULSE 80; RESP 19; TEMP 98.4
[2021-03-19 05:38] LABS: Glucose,Whole Blood 122 mg/dL (75-99)
[2021-03-19 05:48] LABS: Basophils # (A) 0.1 k/uL (0-0.2); Basophils % (A) 0 %; Eosinophils # (A) 0.3 k/uL (0-0.7); Eosinophils % (A) 2 %; HCT 41.4 % (34.0-46.0); HGB 13.6 gm/dL (11.4-16.0); Lymphocytes # (A) 3.5 k/uL (1.0-4.8); Lymphocytes % (A) 23 %; MCH 29.4 pg (25.0-35.0); MCHC 32.9 g/dL (31.0-37.0); MCV 89.3 fL (80.0-100.0); Mean Platelet Volume 7.9; Monocytes # (A) 0.6 k/uL (0-1.0); Monocytes % (A) 4 %; Neutrophils # (A) 10.5 k/uL (1.3-7.7); Neutrophils % (A) 70 %; Platelet Count 361 k/uL (150-450); RBC 4.63 m/uL (3.80-5.40); RDW 13.5 % (11.5-15.5)
[2021-03-19] MEDS ORDERED: HYDROmorphone 1 MG/ML 1 ML SYRINGE IVP STA ×2 (05:49→06:33)
[2021-03-19 05:57] LABS: Partial Thromboplastin Time 22.4 sec (22.0-30.0); Prothrombin Time 10.5 sec (9.0-12.0)
[2021-03-19 05:59] LABS: ALT 21 U/L (4-34); AST 38 U/L (14-36); African American GFR (CKD) >90 (>60 ml/min/1.73 sqM); Albumin 4.3 g/dL (3.5-5.0); Alcohol <10 mg/dL; Alkaline Phosphatase 61 U/L (38-126); Anion Gap 11 mmol/L; Blood Urea Nitrogen 14 mg/dL (7-17); Calcium 9.8 mg/dL (8.4-10.2); Carbon Dioxide 22 mmol/L (22-30); Chloride 106 mmol/L (98-107); Creatine Kinase 154 U/L (30-135); Glucose 104 mg/dL (74-99); Non-African American GFR(CKD) >90 (>60 ml/min/1.73 sqM); Potassium 3.5 mmol/L (3.5-5.1); Sodium 139 mmol/L (137-145); Total Bilirubin 0.2 mg/dL (0.2-1.3); Total Protein 6.9 g/dL (6.3-8.2)
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
[2021-03-19] MEDS ORDERED: ACETAMINOPHEN TAB 500 MG TAB PO STA (07:13)
[2021-03-19] MEDS ORDERED: traMADol 50 MG STARTER PACK 3 TAB BTL PO STA (07:14)
[2021-03-19] MEDS ORDERED: HYDROmorphone 0.5 MG/0.5 ML SYRINGE IVP STA (07:40)
== END 2021-03-19 07:48 | disposition home or self-care (01) ==
LOC: EC 05:17
DX: S22.41XA Multiple fractures of ribs, right side, initial encounter for closed fracture (principal); I10 Essential (primary) hypertension; J45.909 Unspecified asthma, uncomplicated; I25.10 Atherosclerotic heart disease of native coronary artery without angina pectoris; G40.909 Epilepsy, unspecified, not intractable, without status epilepticus; K21.9 Gastro-esophageal reflux disease without esophagitis; M79.7 Fibromyalgia; F90.9 Attention-deficit hyperactivity disorder, unspecified type; F31.9 Bipolar disorder, unspecified; G35 Multiple sclerosis; Z87.440 Personal history of urinary (tract) infections; Z87.891 Personal history of nicotine dependence; Z79.51 Long term (current) use of inhaled steroids; Z88.0 Allergy status to penicillin; Z88.1 Allergy status to other antibiotic agents; Z88.2 Allergy status to sulfonamides; Z88.5 Allergy status to narcotic agent; Z88.6 Allergy status to analgesic agent; Z90.49 Acquired absence of other specified parts of digestive tract; Z91.040 Latex allergy status; V43.52XA Car driver injured in collision with other type car in traffic accident, initial encounter; Y92.410 Unspecified street and highway as the place of occurrence of the external cause
CPT/HCPCS: 36415; 93005; 86900; 86901; 80053; 82550; 84484; 85025; 85610; 85730; 86850; 80320; 73562; 73610; 72170; 73110; 71045; 72125; 70450; 71260; 74177; 99291; 96374; 96376 ×2; J1170 ×2; Q9967

== ENCOUNTER → 2021-05-25 | Outpatient (CLI) | payer MEDICARE, OTHER ==
[2021-05-25 22:35] LABS: Basophils # (A) 0.06 X 10*3/uL (0.00-0.10); Basophils % (A) 0.4 %; HCT 39.8 % (37.2-46.3); HGB 12.7 g/dL (12.0-15.0); Lymphocytes # (A) 2.87 X 10*3/uL (0.90-5.00); Lymphocytes % (A) 19.5 %; MCH 28.5 pg (27.0-32.0); MCHC 31.9 g/dL (32.0-37.0); MCV 89.2 fL (80.0-97.0); Mean Platelet Volume 10.4 fL (9.5-12.2); Monocytes # (A) 0.84 X 10*3/uL (0.20-1.00); Monocytes % (A) 5.7 %; Neutrophils # (A) 10.59 X 10*3/uL (1.80-7.70); Neutrophils % (A) 71.9 %; Platelet Count 468 X 10*3/uL (140-440); RBC 4.46 X 10*6/uL (4.10-5.20); WBC 14.73 X 10*3/uL (4.50-10.00)
== END | disposition home or self-care (01) ==
LOC: LABWHC1 15:03
PROVIDERS: ATTEND Physician Assistant
DX: G35 Multiple sclerosis (principal)
CPT/HCPCS: 36415; 85025

== ENCOUNTER 2021-06-10 20:27 | Inpatient (IN) | payer MEDICARE, OTHER ==
[2021-06-10] MEDS ORDERED: ONDANSETRON 4 MG/2 ML VIAL IVP STA (21:06)
--- NOTE | 2021-06-10 21:10 | ED ---
General Adult HPI - General Chief complaint: Weakness Stated complaint: Weakness Time Seen by Provider: 06/10/21 20:46 Source: patient, RN notes reviewed Mode of arrival: wheelchair Limitations: no limitations - History of Present Illness Initial comments: Patient is a pleasant 41-year-old female presenting to the emergency department with concerns for general weakness. Patient does have history of MS diagnosed around 13 years ago. Patient has been having some increased weakness and vomiting. Patient did go to urgent care and diagnosed with urinary tract infection just 3 days ago. Patient has been placed on Macrobid. Despite this her weakness has progressed. Patient normally can walk without difficulty however now can only take around 5 or 6 steps. Patient is having some blurry vision. No isolated area of weakness. A hanson does feel somewhat foggy and lightheaded as well. Patient has subjective fevers at home. - Related Data Home Medications Medication Instructions Recorded Confirmed Ipratropium/Albuterol Sulfate 2 puff INHALATION RT-QID PRN 12/09/13 03/19/21 [Combivent Respimat Inhaler] Ondansetron [Zofran ODT] 4 mg PO BID PRN 06/13/19 03/19/21 Albuterol Inhaler [Ventolin Hfa 2 puff INHALATION RT-QID PRN 03/04/20 03/19/21 Inhaler] Dextroamphetamine/Amphetamine 30 mg PO DAILY 10/01/20 03/19/21 [Adderall] lisinopriL 20 mg PO DAILY 10/01/20 03/19/21 oxyCODONE-APAP 7.5-325MG [Percocet 1 tab PO BID PRN 03/19/21 03/19/21 7.5-325 mg] Previous Rx's Medication Instructions Recorded amLODIPine [Norvasc] 10 mg PO DAILY #30 tablet 10/07/20 Allergies Allergy/AdvReac Type Severity Reaction Status Date / Time amoxicillin [Amoxicillin] Allergy Severe Anaphylaxis, Verified 06/10/21 20:40 seizures ciprofloxacin [From Cipro] Allergy Severe Rash/Hives, Verified 06/10/21 20:40 seizures codeine phosphate Allergy Unknown Rash/Hives Verified 06/10/21 20:40 [From Tylenol-Codeine #3] bee venom protein (honey bee) Allergy Anaphylaxis Verified 06/10/21 20:40 cefuroxime axetil Allergy Rash/Hives Verified 06/10/21 20:40 [From Ceftin] ketorolac [From Toradol] Allergy Rash/Hives Verified 06/10/21 20:40 latex Allergy Rash/Hives Verified 06/10/21 20:40 NSAIDS (Non-Steroidal Allergy Rash/Hives/Lip Verified 06/10/21 20:40 Anti-Inflamma Swelling sulfamethoxazole Allergy Itching Verified 06/10/21 20:40 [From Bactrim] trimethoprim [From Bactrim] Allergy Itching Verified 06/10/21 20:40 Review of Systems ROS Statement: Those systems with pertinent positive or pertinent negative responses have been documented in the HPI. ROS Other: All systems not noted in ROS Statement are negative. Constitutional: Reports: fever Eyes: Denies: eye pain ENT: Denies: ear pain Respiratory: Reports: cough, wheezes (Has history of asthma) Cardiovascular: Denies: chest pain Endocrine: Reports: fatigue Gastrointestinal: Reports: abdominal pain (Suprapubic discomfort), nausea, vomiting Genitourinary: Denies: dysuria Musculoskeletal: Denies: back pain Skin: Denies: rash Neurological: Reports: as per HPI, weakness Past Medical History Past Medical History: Asthma, Coronary Artery Disease (CAD), Fibromyalgia, GERD/Reflux, Hypertension, Musculoskeletal Disorder, Neurologic Disorder, Pneumonia, Seizure Disorder Additional Past Medical History / Comment(s): Multiple Sclerosis, angina, migraines, DJD, interstitial cystitis, UTI, PCOS, vit D deficiency, bilateral optic neuritis with visual problems, generalized chronic pain, numbness/tingling bilateral lower legs, tachycardia, c-diff 5-9-16, seizures from MS last one around 2016. ADHD. 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 PCOS. History of Any Multi-Drug Resistant Organisms: C-DIFF Date of last positivie culture/infection: 2017 MDRO Source:: stool Past Surgical History: Cholecystectomy, Orthopedic Surgery Additional Past Surgical History / Comment(s): Lt shoulder rotator cuff repair 06/06/14, arthroscopic left knee 2000 & 2002, left shoulder reconstruction Past Anesthesia/Blood Transfusion Reactions: No Reported Reaction Additional Past Anesthesia/Blood Transfusion Reaction / Comment(s): Pt has never recieved blood. Past Psychological History: Anxiety, Bipolar, Depression Smoking Status: Former smoker Past Alcohol Use History: None Reported Past Drug Use History: None Reported - Past Family History Mother Family Medical History: No Reported History, Hearing Disorder / Deafness Additional Family Medical History / Comment(s): mother is healthy. Maternal grandmother had uterine cancer. Maternal grandfather had bladder cancer. Father Family Medical History: Hypertension Additional Family Medical History / Comment(s): Paternal grandfather had an [place]. General Exam Limitations: no limitations General appearance: alert, in no apparent distress Head exam: Present: normocephalic Eye exam: Present: normal appearance, PERRL, EOMI Neck exam: Present: normal inspection Respiratory exam: Present: wheezes Cardiovascular Exam: Present: regular rate, normal rhythm GI/Abdominal exam: Present: soft, tenderness (Mild suprapubic tenderness). Absent: distended Extremities exam: Present: normal inspection Neurological exam: Present: alert, CN II-XII intact Expanded Speech: Present: fluid speech Cranial nerves: EOM's Intact: Normal Motor strength exam: RUE: 5, LUE: 5, RLE: 4, LLE: 4 Eye Response: (4) open spontaneously Motor Response: (6) obeys commands Verbal Response: (5) oriented Psychiatric exam: Present: normal affect, normal mood Skin exam: Present: normal color Course Vital Signs 06/10/21 06/10/21 20:38 21:58 Temperature 98.1 F Pulse Rate 90 78 Respiratory 18 18 Rate Blood Pressure 128/93 139/97 O2 Sat by Pulse 95 97 Oximetry EKG Findings - EKG Comments: EKG Findings:: Sinus rhythm with rate 72. TX 128. QRS 84. QT 374. QTC 49. Normal axis. Normal QRS. No acute ST change. Medical Decision Making - Medical Decision Making Patient reevaluated and updated. Patient does have elevated white blood cell count. Patient states she is not on steroids at this time. Urinalysis does not show obvious infection however patient is on oral Macrodantin at this time. Case was discussed with Dr. Mccabe, who will admit covering hospital call. He agrees with placing a dose of Solu-Medrol pending neurology consult. He recommends Bactrim oral for potential UTI at this time. - Lab Data Result diagrams: 06/10/21 21:45 06/10/21 21:45 Lab Results 06/10/21 06/10/21 06/10/21 Range/Units 21:15 21:20 21:45 WBC 18.2 H (3.8-10.6) k/uL RBC 4.81 (3.80-5.40) m/uL Hgb 14.0 (11.4-16.0) gm/dL Hct 43.3 (34.0-46.0) % MCV 90.0 (80.0-100.0) fL MCH 29.2 (25.0-35.0) pg MCHC 32.4 (31.0-37.0) g/dL RDW 13.0 (11.5-15.5) % Plt Count 399 (150-450) k/uL MPV 7.7 Neutrophils % 68 % Lymphocytes % 21 % Monocytes % 4 % Eosinophils % 4 % Basophils % 0 % Neutrophils # 12.4 H (1.3-7.7) k/uL Lymphocytes # 3.9 (1.0-4.8) k/uL Monocytes # 0.8 (0-1.0) k/uL Eosinophils # 0.8 H (0-0.7) k/uL Basophils # 0.1 (0-0.2) k/uL PT (9.0-12.0) sec INR (<1.2) APTT (22.0-30.0) sec Sodium (137-145) mmol/L Potassium (3.5-5.1) mmol/L Chloride (98-107) mmol/L Carbon Dioxide (22-30) mmol/L Anion Gap mmol/L BUN (7-17) mg/dL Creatinine (0.52-1.04) mg/dL Est GFR (CKD-EPI)AfAm (>60 ml/min/1.73 sqM) Est GFR (CKD-EPI)NonAf (>60 ml/min/1.73 sqM) Glucose (74-99) mg/dL Plasma Lactic Acid Tom (0.7-2.0) mmol/L Calcium (8.4-10.2) mg/dL Phosphorus (2.5-4.5) mg/dL Magnesium (1.6-2.3) mg/dL Total Bilirubin (0.2-1.3) mg/dL AST (14-36) U/L ALT (4-34) U/L Alkaline Phosphatase (38-126) U/L Total Protein (6.3-8.2) g/dL Albumin (3.5-5.0) g/dL TSH (0.465-4.680) mIU/L Free T4 (0.78-2.19) ng/dL Free T3 pg/mL (2.8-5.3) pg/ml Urine Color Yellow Urine Appearance Cloudy H (Clear) Urine pH 6.0 (5.0-8.0) Ur Specific [place] 1.024 (1.001-1.035) Urine Protein Negative (Negative) Urine Glucose (UA) Negative (Negative) Urine Ketones Negative (Negative) Urine Blood Moderate H (Negative) Urine Nitrite Negative (Negative) Urine Bilirubin Negative (Negative) Urine Urobilinogen <2.0 (<2.0) mg/dL Ur Leukocyte Esterase Negative (Negative) Urine RBC 6 H (0-5) /hpf Urine WBC 1 (0-5) /hpf Ur Squamous Epith Cells 9 H (0-4) /hpf Hyaline Casts 1 (0-2) /lpf Urine Mucus Rare H (None) /hpf Coronavirus (PCR) Not Detected (Not Detectd) 06/10/21 06/10/21 06/10/21 Range/Units 21:45 21:45 21:45 WBC (3.8-10.6) k/uL RBC (3.80-5.40) m/uL Hgb (11.4-16.0) gm/dL Hct (34.0-46.0) % MCV (80.0-100.0) fL MCH (25.0-35.0) pg MCHC (31.0-37.0) g/dL RDW (11.5-15.5) % Plt Count (150-450) k/uL MPV Neutrophils % % Lymphocytes % % Monocytes % % Eosinophils % % Basophils % % Neutrophils # (1.3-7.7) k/uL Lymphocytes # (1.0-4.8) k/uL Monocytes # (0-1.0) k/uL Eosinophils # (0-0.7) k/uL Basophils # (0-0.2) k/uL PT 10.1 (9.0-12.0) sec INR 0.9 (<1.2) APTT 23.8 (22.0-30.0) sec Sodium 134 L (137-145) mmol/L Potassium 4.9 (3.5-5.1) mmol/L Chloride 101 (98-107) mmol/L Carbon Dioxide 23 (22-30) mmol/L Anion Gap 10 mmol/L BUN 16 (7-17) mg/dL Creatinine 0.63 (0.52-1.04) mg/dL Est GFR (CKD-EPI)AfAm >90 (>60 ml/min/1.73 sqM) Est GFR (CKD-EPI)NonAf >90 (>60 ml/min/1.73 sqM) Glucose 84 (74-99) mg/dL Plasma Lactic Acid Tom 0.8 (0.7-2.0) mmol/L Calcium 9.5 (8.4-10.2) mg/dL Phosphorus 4.8 H (2.5-4.5) mg/dL Magnesium 1.7 (1.6-2.3) mg/dL Total Bilirubin 0.6 (0.2-1.3) mg/dL AST 33 (14-36) U/L ALT 14 (4-34) U/L Alkaline Phosphatase 59 (38-126) U/L Total Protein 7.8 (6.3-8.2) g/dL Albumin 4.5 (3.5-5.0) g/dL TSH 2.900 (0.465-4.680) mIU/L Free T4 1.04 (0.78-2.19) ng/dL Free T3 pg/mL 5.0 (2.8-5.3) pg/ml Urine Color Urine Appearance (Clear) Urine pH (5.0-8.0) Ur Specific [place] (1.001-1.035) Urine Protein (Negative) Urine Glucose (UA) (Negative) Urine Ketones (Negative) Urine Blood (Negative) Urine Nitrite (Negative) Urine Bilirubin (Negative) Urine Urobilinogen (<2.0) mg/dL Ur Leukocyte Esterase (Negative) Urine RBC (0-5) /hpf Urine WBC (0-5) /hpf Ur Squamous Epith Cells (0-4) /hpf Hyaline Casts (0-2) /lpf Urine Mucus (None) /hpf Coronavirus (PCR) (Not Detectd) - Radiology Data Radiology results: image reviewed (Chest x-ray shows no acute process) Disposition Clinical Impression: Multiple sclerosis exacerbation, Leg weakness, UTI (urinary tract infection) Disposition: ADMITTED IP TO THIS HOSP Is patient prescribed a controlled substance at d/c from ED?: No Referrals: None,Stated [Primary Care Provider] - 1-2 days Decision Time: 22:55
[2021-06-10 21:29] LABS: Appearance,Urine Cloudy (Clear); Bilirubin,Urine Negative (Negative); Blood,Urine Moderate (Negative); Color,Urine Yellow; Glucose,Urine (UA) Negative (Negative); Hyaline Casts,Urine 1 /lpf (0-2); Ketones,Urine Negative (Negative); Leukocyte Esterase,Urine Negative (Negative); Mucus,Urine Rare /hpf; Nitrite,Urine Negative (Negative); Protein,Urine Negative (Negative); RBC,Urine 6 /hpf (0-5); Specific Gravity,Urine 1.024 (1.001-1.035); Squamous Epithelial Cell,Urine 9 /hpf (0-4); Urobilinogen,Urine <2.0 mg/dL (<2.0); WBC,Urine 1 /hpf (0-5)
[2021-06-10 22:05] LABS: Basophils # (A) 0.1 k/uL (0-0.2); Basophils % (A) 0 %; Eosinophils # (A) 0.8 k/uL (0-0.7); Eosinophils % (A) 4 %; HCT 43.3 % (34.0-46.0); Lymphocytes # (A) 3.9 k/uL (1.0-4.8); Lymphocytes % (A) 21 %; MCH 29.2 pg (25.0-35.0); MCHC 32.4 g/dL (31.0-37.0); Mean Platelet Volume 7.7; Monocytes # (A) 0.8 k/uL (0-1.0); Monocytes % (A) 4 %; Neutrophils # (A) 12.4 k/uL (1.3-7.7); Neutrophils % (A) 68 %; Platelet Count 399 k/uL (150-450); RBC 4.81 m/uL (3.80-5.40); WBC 18.2 k/uL (3.8-10.6)
[2021-06-10 22:09] LABS: ALT 14 U/L (4-34); AST 33 U/L (14-36); African American GFR (CKD) >90 (>60 ml/min/1.73 sqM); Albumin 4.5 g/dL (3.5-5.0); Alkaline Phosphatase 59 U/L (38-126); Anion Gap 10 mmol/L; Blood Urea Nitrogen 16 mg/dL (7-17); Calcium 9.5 mg/dL (8.4-10.2); Carbon Dioxide 23 mmol/L (22-30); Chloride 101 mmol/L (98-107); Glucose 84 mg/dL (74-99); Magnesium 1.7 mg/dL (1.6-2.3); Non-African American GFR(CKD) >90 (>60 ml/min/1.73 sqM); Phosphorus 4.8 mg/dL (2.5-4.5); Sodium 134 mmol/L (137-145); Total Bilirubin 0.6 mg/dL (0.2-1.3); Total Protein 7.8 g/dL (6.3-8.2)
[2021-06-10 22:10] LABS: INR 0.9 (<1.2); Partial Thromboplastin Time 23.8 sec (22.0-30.0); Prothrombin Time 10.1 sec (9.0-12.0)
[2021-06-10] MEDS ORDERED: MORPHINE SULFATE 4 MG/ML SYRINGE IVP STA (22:11)
[2021-06-10 22:25] LABS: T4, Free (Free Thyroxine) 1.04 ng/dL (0.78-2.19)
[2021-06-10 22:34] LABS: Potassium 4.9 mmol/L (3.5-5.1)
--- NOTE | 2021-06-10 22:47 | XR ---
EXAMINATION TYPE: XR chest 2V DATE OF EXAM: 06/10/2021 COMPARISON: 03/19/2021 HISTORY: Weakness TECHNIQUE: FINDINGS: Heart and mediastinum are normal. Lungs are clear. Diaphragm is normal. Bony thorax is inta ct. IMPRESSION: No active cardiopulmonary disease. Normal heart. No change.
[2021-06-10] MEDS ORDERED: ACETAMINOPHEN TAB 325 MG TAB PO PRN (22:57)
[2021-06-10] MEDS ORDERED: NALOXONE 0.4 MG/ML 1 ML VIAL IV PRN (22:57)
[2021-06-10] MEDS ORDERED: GENTAMICIN PER PHARMACY MISCELLANE SCH (23:00)
[2021-06-10] MEDS ORDERED: MORPHINE SULFATE 4 MG/ML SYRINGE IVP PRN (23:27)
[2021-06-10] MEDS: SODIUM CHLORIDE 0.9% 1,000 ML IV SCH (23:30)
[2021-06-11] MEDS: ONDANSETRON 4 MG/2 ML VIAL IVP PRN ×3 (00:30→16:43)
[2021-06-11] MEDS ORDERED: GENTAMICIN 400 MG in SODIUM CHLORIDE 0.9% 100 ML IVPB SCH (01:00)
[2021-06-11] MEDS: HYDROmorphone 0.5 MG/0.5 ML SYRINGE IVP PRN ×5 (01:29→15:30)
--- NOTE | 2021-06-11 02:24 | P.HPIM ---
History of Present Illness H&P Date: 06/10/21 Chief Complaint: INCREASE weakness 41 year old female with history of MS, recurrent UTI Patient comes in due to increased weakness, she has history of MS and she feels like she is going into a flareup as she is unable to walk more than 5-6 steps where at baseline she can walk without limitations. She reports that she was diagnosed with UTI but 3-4 days ago at an urgent care where she went there due to having some lower abdominal discomfort she claims that due to having recurrent UTI she doesn't recognize symptoms of urinary tract infection which she knows that most of them she can't empty her bladder fully which resulted in recurrent urinary tract infection. She was feeling generalized weakness at the time and increased fatigue went to an urgent care was diagnosed with UTI she was started on Macrobid however generalized weakness progressed and now she feels in creasingly weak and tired and unable to walk more than a few steps. Today she started having fevers and chills, increased dizziness, and throwing up along with increase attacks of lower abdominal pain 10 out of 10 in severity sharp pain radiating to bilateral lower back. She denies any hematuria or dysuria or any foul smell in the urine. She denies any sick contact denies any diarrhea in eyes and recent travel. Denies any changes in her medications. She doesn't take any medications at [facility] for [facility]. In the ED she was found to have leukocytosis her urine was not a clean catch and showed some microscopic hematuria. Otherwise patient denies any coughing denies any chest pain or trouble breathing denies any sinus congestion. Review of Systems Pertinent positives as noted in HPI. All other systems were reviewed and are negative Past Medical History Past Medical History: Asthma, Coronary Artery Disease (CAD), Fibromyalgia, GERD/Reflux, Hypertension, Musculoskeletal Disorder, Neurologic Disorder, Pneumonia, Seizure Disorder Additional Past Medical History / Comment(s): Multiple Sclerosis, angina, migraines, DJD, interstitial cystitis, UTI, PCOS, vit D deficiency, bilateral optic neuritis with visual problems, generalized chronic pain, numbness/tingling bilateral lower legs, tachycardia, c-diff 5-9-16, seizures from MS last one around 2016. ADHD. 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 PCOS. History of Any Multi-Drug Resistant Organisms: C-DIFF Date of last positivie culture/infection: 2017 MDRO Source:: stool Past Surgical History: Cholecystectomy, Orthopedic Surgery Additional Past Surgical History / Comment(s): Lt shoulder rotator cuff repair 06/06/14, arthroscopic left knee 2000 & 2002, left shoulder reconstruction Past Anesthesia/Blood Transfusion Reactions: No Reported Reaction Additional Past Anesthesia/Blood Transfusion Reaction / Comment(s): Pt has never recieved blood. Past Psychological History: Anxiety, Bipolar, Depression Smoking Status: Former smoker Past Alcohol Use History: None Reported Past Drug Use History: None Reported - Past Family History Mother Family Medical History: No Reported History, Hearing Disorder / Deafness Additional Family Medical History / Comment(s): mother is healthy. Maternal grandmother had uterine cancer. Maternal grandfather had bladder cancer. Father Family Medical History: Hypertension Additional Family Medical History / Comment(s): Paternal grandfather had an [place]. Medications and Allergies Home Medications Medication Instructions Recorded Confirmed Type RX: Ipratropium/Albuterol Sulfate 2 puff INHALATION RT-QID PRN 12/09/13 03/19/21 History [Combivent Respimat Inhaler] RX: Ondansetron [Zofran ODT] 4 mg PO BID PRN 06/13/19 03/19/21 History RX: Albuterol Inhaler [Ventolin 2 puff INHALATION RT-QID PRN 03/04/20 03/19/21 History Hfa Inhaler] RX: Dextroamphetamine/Amphetamine 30 mg PO DAILY 10/01/20 03/19/21 History [Adderall] RX: lisinopriL 20 mg PO DAILY 10/01/20 03/19/21 History amLODIPine [Norvasc] 10 mg PO DAILY #30 tablet 10/07/20 03/19/21 Rx oxyCODONE-APAP 7.5-325MG [Percocet 1 tab PO BID PRN 03/19/21 03/19/21 History 7.5-325 mg] Allergies Allergy/AdvReac Type Severity Reaction Status Date / Time amoxicillin [Amoxicillin] Allergy Severe Anaphylaxis, Verified 06/10/21 20:40 seizures ciprofloxacin [From Cipro] Allergy Severe Rash/Hives, Verified 06/10/21 20:40 seizures codeine phosphate Allergy Unknown Rash/Hives Verified 06/10/21 20:40 [From Tylenol-Codeine #3] bee venom protein (honey bee) Allergy Anaphylaxis Verified 06/10/21 20:40 cefuroxime axetil Allergy Rash/Hives Verified 06/10/21 20:40 [From Ceftin] ketorolac [From Toradol] Allergy Rash/Hives Verified 06/10/21 20:40 latex Allergy Rash/Hives Verified 06/10/21 20:40 NSAIDS (Non-Steroidal Allergy Rash/Hives/Lip Verified 06/10/21 20:40 Anti-Inflamma Swelling sulfamethoxazole Allergy Itching Verified 06/10/21 20:40 [From Bactrim] trimethoprim [From Bactrim] Allergy Itching Verified 06/10/21 20:40 Physical Exam Vitals: Vital Signs Temp Pulse Resp BP Pulse Ox 06/11/21 02:08 79 18 118/50 97 06/11/21 01:18 78 20 127/78 97 06/10/21 23:40 18 129/95 98 06/10/21 21:58 78 18 139/97 97 06/10/21 20:38 98.1 F 90 18 128/93 95 Intake and Output 06/10/21 06/10/21 06/11/21 14:59 22:59 06:59 Other: Weight 99.7 kg Constitutional: No acute distress, conversant, pleasant Eyes: Anicteric sclerae, moist conjunctiva, Pupils equal round reactive to light ENMT: NC/AT Oropharynx clear, no erythema, or exudates Neck: Supple, FROM, no masses, or JVD No carotid bruits No thyromegaly Lungs: Clear to auscultation Clear to percussion Normal respiratory effort, no accessory muscle use Cardiovascular: Heart regular in rate and rhythm, No murmurs, gallops, or rubs No peripheral edema Abdominal: Soft Discomfort to palpation of the suprapubic region and percussion of the Morris vertebral angle bilaterally, no guarding, rebound or rigidity Abdomen moving with respiration Normoactive bowel sounds No hepatomegaly, No splenomegaly No palpable mass No abdominal wall hernia noted Skin: Normal temperature, tone, texture, turgor No induration No subcutaneous nodules No rash, lesions No ulcers Extremities: No digital cyanosis No clubbing Pedal pulses intact and symmetrical Radial pulses intact and symmetrical No calf tenderness Psychiatric: Alert and oriented to person, place and time Appropriate affect fair judgement Neuro bilateral drop feet, bilateral lower extremity weakness left worse than right strength is 3+ over 5, upper extremities with strength of 4 out of 5 slightly more weak on the right side compared to left. Sensation slightly decreased over the right hand. Patient is having some occasional slurred speech Cranial nerves II-XII grossly intact Lymphatics: no palpable cervical or supraclavicular , or inguinal lymph nodes Results CBC & Chem 7: 06/10/21 21:45 06/10/21 21:45 Labs: Abnormal Lab Results - Last 24 Hours (Table) 06/10/21 06/10/21 06/10/21 Range/Units 21:15 21:45 21:45 WBC 18.2 H (3.8-10.6) k/uL Neutrophils # 12.4 H (1.3-7.7) k/uL Eosinophils # 0.8 H (0-0.7) k/uL Sodium 134 L (137-145) mmol/L Phosphorus 4.8 H (2.5-4.5) mg/dL Urine Appearance Cloudy H (Clear) Urine Blood Moderate H (Negative) Urine RBC 6 H (0-5) /hpf Ur Squamous Epith Cells 9 H (0-4) /hpf Urine Mucus Rare H (None) /hpf Assessment and Plan Assessment: Acute recurrent urinary tract infection failed outpatient therapy with Macrobid Follow-up cultures Initially discussed starting patient on Bactrim however reviewing prior urine cultures from September of this year she was resistant to Bactrim due to patient multiple ALLERGIES, she will be started on gentamicin dosing by pharmacy with close monitoring of renal function IV fluid hydration Tylenol for fever Monitor urine output Post void bladder scan Pain control with opiates Symptomatic control of nausea vomiting Acute MS exacerbation Patient will be given 1 g of steroids Follow-up with neurology recommendations Neurochecks Start patient on insulin sliding scale as she reports history of hyperglycemia with steroids Hypertension currently controlled resume home medications Patient is full code DVT prophylaxis heparin subcu 3 times a day Anticipated length of stay more than 2 midnights Anticipated discharge home
[2021-06-11 07:16] LABS: Basophils % (A) 0 %; Eosinophils # (A) 0.1 k/uL (0-0.7); Eosinophils % (A) 0 %; HCT 42.1 % (34.0-46.0); HGB 13.4 gm/dL (11.4-16.0); Lymphocytes # (A) 0.9 k/uL (1.0-4.8); Lymphocytes % (A) 6 %; MCH 29.5 pg (25.0-35.0); MCHC 31.9 g/dL (31.0-37.0); MCV 92.5 fL (80.0-100.0); Mean Platelet Volume 7.7; Monocytes # (A) 0.1 k/uL (0-1.0); Monocytes % (A) 1 %; Neutrophils # (A) 13.8 k/uL (1.3-7.7); Neutrophils % (A) 93 %; Platelet Count 404 k/uL (150-450); RBC 4.55 m/uL (3.80-5.40); WBC 14.9 k/uL (3.8-10.6)
[2021-06-11 07:31] LABS: ALT 41 U/L (4-34); AST 59 U/L (14-36); African American GFR (CKD) >90 (>60 ml/min/1.73 sqM); Albumin 4.1 g/dL (3.5-5.0); Alkaline Phosphatase 72 U/L (38-126); Anion Gap 11 mmol/L; Blood Urea Nitrogen 15 mg/dL (7-17); Calcium 9.3 mg/dL (8.4-10.2); Carbon Dioxide 20 mmol/L (22-30); Chloride 104 mmol/L (98-107); Glucose 181 mg/dL (74-99); Non-African American GFR(CKD) >90 (>60 ml/min/1.73 sqM); Potassium 4.8 mmol/L (3.5-5.1); Sodium 135 mmol/L (137-145); Total Bilirubin 0.5 mg/dL (0.2-1.3)
[2021-06-11 07:47] LABS: Glucose,Whole Blood 195 mg/dL (75-99)
[2021-06-11] MEDS: INSULIN ASPART (NovoLOG) 100 UNIT/ML VIAL SQ SCH ×3 (08:30→17:30)
[2021-06-11] MEDS ORDERED: oxyCODONE-APAP 7.5-325MG 1 EACH TAB PO PRN (11:29)
[2021-06-11 12:36] LABS: Glucose,Whole Blood 167 mg/dL (75-99)
[2021-06-11] MEDS: SODIUM CHLORIDE 0.9% 1,000 ML IV SCH (13:13)
[2021-06-11 15:30] VITALS: BMI 35.4
--- NOTE | 2021-06-11 15:55 | P.PN ---
Subjective Progress Note Date: 06/11/21 Principal diagnosis: weakness and generalized pain Still having severe pain all over and asking for pain meds. She has been rude to the staff. She states that she is still weak in her right leg and that she can't walk although staff noted that she was walking around the [place]. Objective - Vital Signs Vital signs: Vital Signs Temp 97.6 F 06/11/21 07:25 Pulse 80 06/11/21 07:25 Resp 17 06/11/21 07:25 BP 141/88 06/11/21 07:25 Pulse Ox 94 L 06/11/21 07:25 Intake & Output 06/10/21 06/11/21 06/11/21 18:59 06:59 18:59 Intake Total 500 Balance 500 Weight 99.7 kg 99.7 kg Intake: Oral 500 Other: # Voids 1 - Exam Constitutional: No acute distress, conversant, pleasant Eyes:Anicteric sclerae, moist conjunctiva, no lid-lag, PERRLA, ENMT: Oropharynx clear, no erythema, exudates Neck: Supple, FROM, no masses, or JVD, No carotid bruits, No thyromegaly Lungs: Clear to auscultation, Clear to percussion, Normal respiratory effort, no accessory muscle use Cardiovascular: Heart regular in rate and rhythm, No murmurs, gallops, or rubs, No peripheral edema Abdominal: Soft, Nontender, no guarding, rebound or rigidity, Normoactive bowel sounds, No hepatomegaly, No splenomegaly, No palpable mass Skin: Normal temperature, tone, texture, turgor, no induration, No subcutaneous nodules, No rash, lesions, No ulcers Extremities: No digital cyanosis, No clubbing, Pedal pulses intact and symmetrical, Radial pulses intact and symmetrical, No calf tenderness Psychiatric: Alert and oriented to person, place and time, appropriate affect, intact judgement Neuro: RLE 4+/5, rest of extremities 5/5, Sensation to light touch grossly present throughout, Cranial nerves II-XII grossly intact, no focal sensory deficits - Labs CBC & Chem 7: 06/11/21 06:47 06/11/21 06:47 Labs: Abnormal Lab Results - Last 24 Hours (Table) 06/10/21 06/10/21 06/10/21 Range/Units 21:15 21:45 21:45 WBC 18.2 H (3.8-10.6) k/uL Neutrophils # 12.4 H (1.3-7.7) k/uL Lymphocytes # (1.0-4.8) k/uL Eosinophils # 0.8 H (0-0.7) k/uL Sodium 134 L (137-145) mmol/L Carbon Dioxide (22-30) mmol/L Glucose (74-99) mg/dL POC Glucose (mg/dL) (75-99) mg/dL Phosphorus 4.8 H (2.5-4.5) mg/dL AST (14-36) U/L ALT (4-34) U/L Urine Appearance Cloudy H (Clear) Urine Blood Moderate H (Negative) Urine RBC 6 H (0-5) /hpf Ur Squamous Epith Cells 9 H (0-4) /hpf Urine Mucus Rare H (None) /hpf 06/11/21 06/11/21 06/11/21 Range/Units 06:47 06:47 07:45 WBC 14.9 H (3.8-10.6) k/uL Neutrophils # 13.8 H (1.3-7.7) k/uL Lymphocytes # 0.9 L (1.0-4.8) k/uL Eosinophils # (0-0.7) k/uL Sodium 135 L (137-145) mmol/L Carbon Dioxide 20 L (22-30) mmol/L Glucose 181 H (74-99) mg/dL POC Glucose (mg/dL) 195 H (75-99) mg/dL Phosphorus (2.5-4.5) mg/dL AST 59 H (14-36) U/L ALT 41 H (4-34) U/L Urine Appearance (Clear) Urine Blood (Negative) Urine RBC (0-5) /hpf Ur Squamous Epith Cells (0-4) /hpf Urine Mucus (None) /hpf 06/11/21 Range/Units 12:34 WBC (3.8-10.6) k/uL Neutrophils # (1.3-7.7) k/uL Lymphocytes # (1.0-4.8) k/uL Eosinophils # (0-0.7) k/uL Sodium (137-145) mmol/L Carbon Dioxide (22-30) mmol/L Glucose (74-99) mg/dL POC Glucose (mg/dL) 167 H (75-99) mg/dL Phosphorus (2.5-4.5) mg/dL AST (14-36) U/L ALT (4-34) U/L Urine Appearance (Clear) Urine Blood (Negative) Urine RBC (0-5) /hpf Ur Squamous Epith Cells (0-4) /hpf Urine Mucus (None) /hpf Assessment and Plan Plan: Acute recurrent urinary tract infection failed outpatient therapy with Macrobid Follow-up cultures, was recently on macrobid. Due to several allergies and previous urine cultures from September of this year that were resistant to Bactrim, she is on gentamicin dosing by pharmacy with close monitoring of renal function IV fluid hydration Tylenol for fever Monitor urine output Pain control with opiates Symptomatic control of nausea vomiting Acute MS exacerbation Patient will be given 1 g of steroids Follow-up with neurology recommendations Neurochecks Hypertension currently controlled resume home medications Patient is full code DVT prophylaxis heparin subcu 3 times a day Anticipated discharge home
[2021-06-11] MEDS ORDERED: HYDROmorphone 1 MG/ML 1 ML SYRINGE IVP STA (16:05)
--- NOTE | 2021-06-11 17:45 | P.CNNES ---
History of Present Illness Consult date: 06/11/21 Requesting physician: Lianna No Reason for Consult: MS exacerbation, steroid management History of Present Illness: Patient is a 41-year-old female well known to me from previous admissions to the hospital for her relapsing remitting MS. Patient came to the hospital yesterday at 8:27 PM for visual disturbances and urinary complaints. Patient has been on Tecfidera for MS for number of years. She is in the process of switching from Tecfidera to Mavenclad. She has not received clearance from her neurologist regarding the switch related to her reactive leukocytosis. She however stopped taking Tecfidera about 1 week ago. About 5 days ago she started feeling some weakness, she felt it was just time of the year aren't related to the weather getting cold. About 4 or 5 days ago, she noticed an urgency to be. She ran to the bathroom, lost control of urine which is very unusual. She had couple other similar accidents. Later her urine started getting stronger, and darker in color. No burning or dysuria. She thought that she was having a urinary tract infection. She went to an urgent care, where she was found to have a slight UTI, started on Macrobid. She continued to feel tired and started having some visual disturbance, seeing floaters on the right side. Therefore she got concerned and decided to come to the ER. She also felt her right foot was weaker, more than usual. Vital signs on arrival blood pressure 128/93, pulse rate 90, temperature 98.1. Patient's blood test shows WBC 18.2 hemoglobin 14.0, platelets 399. PT/PTT normal, sodium 134 potassium 4.9, normal renal functions. Hepatic panel was normal initially but repeat testing shows AST 59, ALT 41. UA shows 1 WBC, nega tive leukocyte esterase. Coronavirus PCR negative. Patient was last seen for MS exacerbation on 10/01/2020. Patient had received Solu-Medrol 1 g IVPB daily for 3 days at that time. MRI of the brain with and without contrast revealed extensive white matter demyelination changes are again noted and are stable. No evident plaque enhancement. No acute stroke. Patient was discharged on prednisone 50 mg daily for 5 days then decrease by 10 mg daily until off. Patient was supposed to follow up with toll transmission worker Dr. Kemp as outpatient, but she never made an appointment. She is noticing floaters in the right eye for last 2-3 months. She sometimes notices auditory and visual hallucinations. Patient had previously tried numerous disease modifying agents including Avonex, Copaxone, Gilenya and Ocrevus. Patient had a bad reaction of hives, shortness of breath, trouble breathing and lip swelling from Ocrevus. Most recently she has been on Tecfidera since it has been marketed. Patient's last JCV titers were positive at 3.68. Review of Systems As above in detail. Complains of fatigue. Visual disturbance, some incoordination, balance issues, urinary issues. Patient has lost some weight since she started working. Denies any double vision. She has some peripheral visual loss. No rash, no fever or chills. No dysuria. No loss of bowel control. No abdominal pain. She did have some nausea vomiting in the last few days. Past Medical History Past Medical History: Asthma, Fibromyalgia, GERD/Reflux, Hypertension, Musculoskeletal Disorder, Neurologic Disorder, Pneumonia, Seizure Disorder Additional Past Medical History / Comment(s): Multiple Sclerosis, angina, migraines, DJD, interstitial cystitis, UTI, PCOS, vit D deficiency, bilateral optic neuritis with visual problems, generalized chronic pain, numbness/tingling bilateral lower legs, tachycardia, c-diff 5-9-16, seizures from MS last one around 2017. ADHD. 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 PCOS. History of Any Multi-Drug Resistant Organisms: C-DIFF Date of last positivie culture/infection: 2016 MDRO Source:: stool Past Surgical History: Cholecystectomy, Orthopedic Surgery Additional Past Surgical History / Comment(s): Lt shoulder rotator cuff repair 06/06/14, arthroscopic left knee 2000 & 2002, left shoulder reconstruction Past Anesthesia/Blood Transfusion Reactions: No Reported Reaction Additional Past Anesthesia/Blood Transfusion Reaction / Comment(s): Pt has never recieved blood. Past Psychological History: Anxiety, Bipolar, Depression Additional Psychological History / Comment(s): OCD Smoking Status: Former smoker, Vaper Past Alcohol Use History: None Reported Additional Past Alcohol Use History / Comment(s): STARTED SMOKING AGE 17 and quit in 2017 but is using vapor cigarette somedays. Patient denies any medical marijuana, marijuana, street drug use. She denies any alcohol use or abuse. Patient is and lives with her and one child. No recent travel. Patient is on disability. Past Drug Use History: None Reported Additional Drug Use History / Comment(s): Patient reports past history of cocaine, inhaling heroin (no IV use of heroin per patient), marijuana and pain pills not prescribed to patient. - Past Family History Mother Family Medical History: No Reported History Additional Family Medical History / Comment(s): mother is healthy. Maternal grandmother had uterine cancer. Maternal grandfather had bladder cancer. Father Family Medical History: Hypertension Additional Family Medical History / Comment(s): Paternal grandfather had an [place]. Medications and Allergies Home Medications Medication Instructions Recorded Confirmed Type Ipratropium/Albuterol Sulfate 2 puff INHALATION RT-QID PRN 12/09/13 06/11/21 History [Combivent Respimat Inhaler] Ondansetron [Zofran ODT] 4 mg PO BID PRN 06/13/19 06/11/21 History Albuterol Inhaler [Ventolin Hfa 2 puff INHALATION RT-QID PRN 03/04/20 06/11/21 History Inhaler] Dextroamphetamine/Amphetamine 30 mg PO DAILY 10/01/20 06/11/21 History [Adderall] lisinopriL 20 mg PO DAILY 10/01/20 06/11/21 History oxyCODONE-APAP 7.5-325MG [Percocet 1 tab PO BID PRN 03/19/21 06/11/21 History 7.5-325 mg] Nitrofurantoin Macrocrystal 100 mg PO BID 06/11/21 06/11/21 History [Nitrofurantoin] amLODIPine [Norvasc] 10 mg PO DAILY PRN 06/11/21 06/11/21 History Allergies Allergy/AdvReac Type Severity Reaction Status Date / Time amoxicillin [Amoxicillin] Allergy Severe Anaphylaxis, Verified 06/11/21 07:35 seizures ciprofloxacin [From Cipro] Allergy Severe Rash/Hives, Verified 06/11/21 07:35 seizures codeine phosphate Allergy Unknown Rash/Hives Verified 06/11/21 07:35 [From Tylenol-Codeine #3] bee venom protein (honey bee) Allergy Anaphylaxis Verified 06/11/21 07:35 cefuroxime axetil Allergy Rash/Hives Verified 06/11/21 07:35 [From Ceftin] ketorolac [From Toradol] Allergy Rash/Hives Verified 06/11/21 07:35 latex Allergy Rash/Hives Verified 06/11/21 07:35 NSAIDS (Non-Steroidal Allergy Rash/Hives/Lip Verified 06/11/21 07:35 Anti-Inflamma Swelling sulfamethoxazole Allergy Itching Verified 06/11/21 07:35 [From Bactrim] trimethoprim [From Bactrim] Allergy Itching Verified 06/11/21 07:35 Physical Examination - Vital Signs Vital Signs: Vital Signs Temp Pulse Pulse Resp BP BP Pulse Ox 06/11/21 07:25 97.6 F 80 17 141/88 94 L 06/11/21 07:03 79 18 102/68 97 06/11/21 05:00 75 18 128/85 97 06/11/21 02:08 79 18 118/50 97 06/11/21 01:18 78 20 127/78 97 06/10/21 23:40 18 129/95 98 06/10/21 21:58 78 18 139/97 97 06/10/21 20:38 98.1 F 90 18 128/93 95 Intake and Output 06/11/21 06/11/21 06/11/21 06:59 14:59 22:59 Intake Total 500 Balance 500 Intake: Oral 500 Other: # Voids 1 Weight 99.7 kg 99.7 kg Patient is young female, in no acute distress. Patient is alert awake oriented to time place and person. Speech and language functions are normal. Attention, concentration and fund of knowledge is adequate. On cranial examination, pupils are round and reacting to light, visual pacheco reveal some questionable restriction with peripheral gaze on confrontation, extraocular muscles are intact with no nystagmus. Patient's right eye tends to adduct at times. Face is symmetric, tongue protrudes to the midline. Palatal elevation and sensation normal, hearing and shoulder shrug normal, facial sensation normal. On muscle strength testing, there is no pronator drift and the strength is normal in arms and legs distally and proximally, except right industrial eng 5-, ankle dorsiflexion on the right is 5-. Deep tendon reflexes are very hypoactive and plantars are flat. Sensory to touch is equal with no neglect. Cerebellar function showed mild dysmetria for [id number] testing bilaterally. Tone and bulk of muscles normal. Gait walks with a typical, jerky gait. On general examination, there is no carotid bruit or murmur, S1-S2 audible. Abdomen is soft nontender. Chest is clear. Peripheral pulses are present. No edema. Results - Laboratory Findings CBC and BMP: 06/11/21 06:47 06/11/21 06:47 Abnormal Lab Findings: Abnormal Labs 06/10/21 06/10/21 06/10/21 21:15 21:45 21:45 WBC 18.2 H Neutrophils # 12.4 H Lymphocytes # Eosinophils # 0.8 H Sodium 134 L Carbon Dioxide Glucose POC Glucose (mg/dL) Phosphorus 4.8 H AST ALT Urine Appearance Cloudy H Urine Blood Moderate H Urine RBC 6 H Ur Squamous Epith Cells 9 H Urine Mucus Rare H 06/11/21 06/11/21 06/11/21 06:47 06:47 07:45 WBC 14.9 H Neutrophils # 13.8 H Lymphocytes # 0.9 L Eosinophils # Sodium 135 L Carbon Dioxide 20 L Glucose 181 H POC Glucose (mg/dL) 195 H Phosphorus AST 59 H ALT 41 H Urine Appearance Urine Blood Urine RBC Ur Squamous Epith Cells Urine Mucus 06/11/21 12:34 WBC Neutrophils # Lymphocytes # Eosinophils # Sodium Carbon Dioxide Glucose POC Glucose (mg/dL) 167 H Phosphorus AST ALT Urine Appearance Urine Blood Urine RBC Ur Squamous Epith Cells Urine Mucus Assessment and Plan Assessment: * 41-year-old female with relapsing remitting MS, presenting with some visual disturbance, and bladder control issues. Patient does have a mild UTI. No definitive evidence of MS exacerbation. Her examination is significantly improved as compared to the last examination from 10/06/2020. Her symptoms may have occurred since she stopped taking Tecfidera about a week ago. * History of recurrent UTI * Obesity * X tobacco use Plan: * Patient has received 1 g of Solu-Medrol last night (500 mg 2 doses). * Patient will be discharged on prednisone 60 mg daily for 3 days, then 40 mg daily for the next 2 days, then 20 mg on day #6 and then stop (6 day course). * Patient recommended to undergo DEXA scan as an outpatient if not done in the past rule out osteoporosis/osteopenia. * Patient recommended to resume Tecfidera. * Patient recommended to follow up with her neurologist to get final clearance regarding switching to Mavenclad, if the switch is recommended. * Patient recommended to follow up with toll transmission worker as was recommended on the last admission. * Neurologically clear for discharge.
[2021-06-11 19:48] VITALS: BP 166/94; PULSE 97; RESP 20; TEMP 98.7
--- NOTE | 2021-06-12 08:44 | P.DS ---
Providers Date of admission: 06/11/21 12:28 Expected date of discharge: 06/12/21 Attending physician: Dora Fitzpatrick MD Consults: 06/11/21 12:38 Consult Physician Routine Consulting Provider: Esther Mayo Consult Reason/Comments: MS exacerbation, steroid management Do you want consulting provider notified?: Yes Primary care physician: Stated None Hospital Course: RECEIVED REPORT THAT PATIENT LEFT AGAINST MEDICAL ADVICE prior to my evaluation. Hospital Course Patient was admitted on 06/10/21 for treatment of acute recurrent urinary tract infection after failing outpatient therapy and acute MS exacerbation. Received reports this morning that patient left AMA. Plan - Discharge Summary Discharge Rx Participant: Yes New Discharge Prescriptions: No Action Ipratropium/Albuterol Sulfate [Combivent Respimat Inhaler] 2 puff INHALATION RT-QID PRN PRN Reason: Shortness Of Breath Ondansetron [Zofran ODT] 4 mg PO BID PRN PRN Reason: Nausea And Vomiting Albuterol Inhaler [Ventolin Hfa Inhaler] 2 puff INHALATION RT-QID PRN PRN Reason: Shortness Of Breath Dextroamphetamine/Amphetamine [Adderall] 30 mg PO DAILY lisinopriL 20 mg PO DAILY Nitrofurantoin Macrocrystal [Nitrofurantoin] 100 mg PO BID oxyCODONE-APAP 7.5-325MG [Percocet 7.5-325 mg] 1 tab PO BID PRN PRN Reason: Pain amLODIPine [Norvasc] 10 mg PO DAILY PRN PRN Reason: Blood Pressure - High Discharge Medication List Ipratropium/Albuterol Sulfate [Combivent Respimat Inhaler] 2 puff INHALATION RT- QID PRN 12/09/13 [History] Ondansetron [Zofran ODT] 4 mg PO BID PRN 06/13/19 [History] Albuterol Inhaler [Ventolin Hfa Inhaler] 2 puff INHALATION RT-QID PRN 03/04/20 [History] Dextroamphetamine/Amphetamine [Adderall] 30 mg PO DAILY 10/01/20 [History] lisinopriL 20 mg PO DAILY 10/01/20 [History] oxyCODONE-APAP 7.5-325MG [Percocet 7.5-325 mg] 1 tab PO BID PRN 03/19/21 [History] Nitrofurantoin Macrocrystal [Nitrofurantoin] 100 mg PO BID 06/11/21 [History] amLODIPine [Norvasc] 10 mg PO DAILY PRN 06/11/21 [History] Follow up Appointment(s)/Referral(s): None,Stated [Primary Care Provider] - 1-2 days Discharge Disposition: Left Against Medical Advice
== END 2021-06-11 20:18 | disposition left against medical advice (07) | DRG 59 ==
LOC: EC 20:27 → 6NMEDSUR 22:57 → OBSVTOIN 06-11 12:28
PROVIDERS: ADMIT Internal Medicine; ATTEND Internal Medicine
DX: G35 Multiple sclerosis (principal); H46.9 Unspecified optic neuritis; R44.0 Auditory hallucinations; Z20.822 Contact with and (suspected) exposure to COVID-19; D72.828 Other elevated white blood cell count; F31.9 Bipolar disorder, unspecified; F41.9 Anxiety disorder, unspecified; F42.9 Obsessive-compulsive disorder, unspecified; G40.909 Epilepsy, unspecified, not intractable, without status epilepticus; I10 Essential (primary) hypertension; I25.10 Atherosclerotic heart disease of native coronary artery without angina pectoris; J45.909 Unspecified asthma, uncomplicated; M79.7 Fibromyalgia; N30.10 Interstitial cystitis (chronic) without hematuria; E55.9 Vitamin D deficiency, unspecified; E66.9 Obesity, unspecified; E28.2 Polycystic ovarian syndrome; F90.9 Attention-deficit hyperactivity disorder, unspecified type; G43.909 Migraine, unspecified, not intractable, without status migrainosus; G89.29 Other chronic pain; K21.9 Gastro-esophageal reflux disease without esophagitis; M19.90 Unspecified osteoarthritis, unspecified site; R44.1 Visual hallucinations; Z79.899 Other long term (current) drug therapy; Z80.49 Family history of malignant neoplasm of other genital organs; Z80.52 Family history of malignant neoplasm of bladder; Z87.891 Personal history of nicotine dependence; Z87.440 Personal history of urinary (tract) infections; Z82.49 Family history of ischemic heart disease and other diseases of the circulatory system
CPT/HCPCS: 36415; 71046; 80053; 80170; 81001; 83605; 83735; 84100; 84439; 84443; 84481; 85025; 85610; 85730; 87040; 87635; 93005; 96374; 96375; 99285

== ENCOUNTER 2021-08-07 11:36 | Inpatient (IN) | payer MEDICARE, OTHER ==
[2021-08-07] MEDS ORDERED: ONDANSETRON 4 MG/2 ML VIAL IVP STA (13:37)
[2021-08-07] MEDS ORDERED: oxyCODONE-APAP 5-325MG 1 EACH TAB PO STA (13:38)
[2021-08-07] MEDS ORDERED: SODIUM CHLORIDE 0.9% 1,000 ML IV STA (13:38)
--- NOTE | 2021-08-07 13:43 | ED ---
General Adult HPI - General Chief complaint: Back Pain/Injury Stated complaint: MS exacerbation Time Seen by Provider: 08/07/21 13:30 Source: patient, RN notes reviewed, old records reviewed Mode of arrival: wheelchair Limitations: no limitations - History of Present Illness Initial comments: 41-year-old tearful female, alert and oriented 4, presents to the emergency room with complaints of generalized body aches with nausea and vomiting, headache and dysuria for the past 2 days. Patient states she thinks it's an MS exacerbation. She states in the past she's had urinary tract infections that have become septic because she doesn't normally have dysuria sensations with her MS. She denies any fevers. She denies any sick contacts. She has not been vaccinated against coronavirus. She does have a history of asthma, MS, fibromyalgia, and seizures. -: days(s) (2) Location: back Radiation: non-radiation Severity scale (1-10): 8 Quality: aching Consistency: constant Improves with: none Worsens with: movement Associated Symptoms: headaches, malaise, nausea/vomiting, weakness - Related Data Home Medications Medication Instructions Recorded Confirmed Ipratropium/Albuterol Sulfate 2 puff INHALATION RT-BID PRN 12/09/13 08/07/21 [Combivent Respimat Inhaler] Albuterol Inhaler [Ventolin Hfa 2 puff INHALATION RT-QID PRN 03/04/20 08/07/21 Inhaler] Dextroamphetamine/Amphetamine 30 mg PO DAILY 10/01/20 08/07/21 [Adderall] lisinopriL 20 mg PO DAILY 10/01/20 08/07/21 oxyCODONE HCL/ACETAMINOPHEN 1 tab PO BID PRN 08/07/21 08/07/21 [Percocet 10-325 mg] Allergies Allergy/AdvReac Type Severity Reaction Status Date / Time amoxicillin [Amoxicillin] Allergy Severe Anaphylaxis, Verified 08/07/21 17:33 seizures ciprofloxacin [From Cipro] Allergy Severe Rash/Hives, Verified 08/07/21 17:33 seizures codeine phosphate Allergy Unknown Rash/Hives Verified 08/07/21 17:33 [From Tylenol-Codeine #3] bee venom protein (honey bee) Allergy Anaphylaxis Verified 08/07/21 17:33 cefuroxime axetil Allergy Rash/Hives Verified 08/07/21 17:33 [From Ceftin] ketorolac [From Toradol] Allergy Rash/Hives Verified 08/07/21 17:33 latex Allergy Rash/Hives Verified 08/07/21 17:33 NSAIDS (Non-Steroidal Allergy Rash/Hives/Lip Verified 08/07/21 17:33 Anti-Inflamma Swelling sulfamethoxazole Allergy Itching Verified 08/07/21 17:33 [From Bactrim] trimethoprim [From Bactrim] Allergy Itching Verified 08/07/21 17:33 Review of Systems ROS Statement: Those systems with pertinent positive or pertinent negative responses have been documented in the HPI. ROS Other: All systems not noted in ROS Statement are negative. Past Medical History Past Medical History: Asthma, Fibromyalgia, GERD/Reflux, Hypertension, Musculoskeletal Disorder, Neurologic Disorder, Pneumonia, Seizure Disorder Additional Past Medical History / Comment(s): Multiple Sclerosis, angina, migraines, DJD, interstitial cystitis, UTI, PCOS, vit D deficiency, bilateral optic neuritis with visual problems, generalized chronic pain, numbness/tingling bilateral lower legs, tachycardia, c-diff 5-9-16, seizures from MS last one around 2016. ADHD. PAST [employer] HISTORY: She has no history of STDs. PCOS. History of Any Multi-Drug Resistant Organisms: C-DIFF Date of last positivie culture/infection: 2016 MDRO Source:: stool Past Surgical History: Cholecystectomy, Orthopedic Surgery Additional Past Surgical History / Comment(s): Lt shoulder rotator cuff repair 06/06/14, arthroscopic left knee 2000 & 2002, left shoulder reconstruction Past Anesthesia/Blood Transfusion Reactions: No Reported Reaction Additional Past Anesthesia/Blood Transfusion Reaction / Comment(s): Pt has never recieved blood. Past Psychological History: Anxiety, Bipolar, Depression Smoking Status: Former smoker, Vaper Past Alcohol Use History: None Reported Past Drug Use History: None Reported - Past Family History Mother Family Medical History: No Reported History Additional Family Medical History / Comment(s): mother is healthy. Maternal grandmother had uterine cancer. Maternal grandfather had bladder cancer. Father Family Medical History: Hypertension Additional Family Medical History / Comment(s): Paternal grandfather had an [place]. General Exam Limitations: no limitations General appearance: alert, in no apparent distress Head exam: Present: atraumatic, normocephalic, normal inspection Eye exam: Present: normal appearance. Absent: scleral icterus, conjunctival injection, periorbital swelling, periorbital tenderness ENT exam: Present: normal exam, normal oropharynx, mucous membranes moist Neck exam: Present: normal inspection. Absent: tenderness, meningismus Respiratory exam: Present: normal lung sounds bilaterally. Absent: respiratory distress, wheezes, rales, rhonchi, stridor, accessory muscle use Cardiovascular Exam: Present: regular rate, normal rhythm, normal heart sounds. Absent: systolic murmur, diastolic murmur, rubs, gallop, clicks, JVD GI/Abdominal exam: Present: soft, normal bowel sounds. Absent: distended, tenderness, guarding, rebound, rigid Extremities exam: Present: normal capillary refill Back exam: Present: tenderness (generalized aches) Neurological exam: Present: alert, oriented X3 Psychiatric exam: Present: normal affect, normal mood Skin exam: Present: warm, dry, intact, normal color. Absent: rash, cyanosis, pallor Course Vital Signs 08/07/21 08/07/21 12:12 17:21 Temperature 97.6 F Pulse Rate 86 79 Respiratory 17 18 Rate Blood Pressure 116/75 134/83 O2 Sat by Pulse 97 100 Oximetry Medical Decision Making - Medical Decision Making 41-year-old female presents with complaints of 2 days of body aches, nausea/vomiting, headache and dysuria. Patient states she thinks it's an MS exacerbation. She denies any fevers. White blood cell count 19.2. Patient has consistently been elevated. Urinalysis is negative for infection. She is coronavirus negative and influenza negative. Chest x-ray shows no acute cardiopulmonary disease, pleural effusion or pneumothorax. Case discussed with Dr. Sims and Dr Soto, will admit for exacerbation of MS. Solu-Medrol was given per Dr. Soto - Lab Data Result diagrams: 08/07/21 13:43 08/07/21 13:43 Lab Results 08/07/21 08/07/21 08/07/21 Range/Units 13:43 13:43 13:43 WBC 19.2 H (3.8-10.6) k/uL RBC 4.62 (3.80-5.40) m/uL Hgb 13.7 (11.4-16.0) gm/dL Hct 41.9 (34.0-46.0) % MCV 90.7 (80.0-100.0) fL MCH 29.6 (25.0-35.0) pg MCHC 32.6 (31.0-37.0) g/dL RDW 13.0 (11.5-15.5) % Plt Count 386 (150-450) k/uL MPV 7.5 Neutrophils % 76 % Lymphocytes % 18 % Monocytes % 3 % Eosinophils % 3 % Basophils % 0 % Neutrophils # 14.5 H (1.3-7.7) k/uL Lymphocytes # 3.4 (1.0-4.8) k/uL Monocytes # 0.6 (0-1.0) k/uL Eosinophils # 0.5 (0-0.7) k/uL Basophils # 0.1 (0-0.2) k/uL Sodium (137-145) mmol/L Potassium (3.5-5.1) mmol/L Chloride (98-107) mmol/L Carbon Dioxide (22-30) mmol/L Anion Gap mmol/L BUN (7-17) mg/dL Creatinine (0.52-1.04) mg/dL Est GFR (CKD-EPI)AfAm (>60 ml/min/1.73 sqM) Est GFR (CKD-EPI)NonAf (>60 ml/min/1.73 sqM) Glucose (74-99) mg/dL Calcium (8.4-10.2) mg/dL Magnesium (1.6-2.3) mg/dL Total Bilirubin (0.2-1.3) mg/dL AST (14-36) U/L ALT (4-34) U/L Alkaline Phosphatase (38-126) U/L Total Protein (6.3-8.2) g/dL Albumin (3.5-5.0) g/dL Urine Color Yellow Urine Appearance Clear (Clear) Urine pH 6.0 (5.0-8.0) Ur Specific [place] 1.018 (1.001-1.035) Urine Protein Negative (Negative) Urine Glucose (UA) Negative (Negative) Urine Ketones Negative (Negative) Urine Blood Small H (Negative) Urine Nitrite Negative (Negative) Urine Bilirubin Negative (Negative) Urine Urobilinogen <2.0 (<2.0) mg/dL Ur Leukocyte Esterase Negative (Negative) Urine RBC 5 (0-5) /hpf Urine WBC 2 (0-5) /hpf Ur Squamous Epith Cells 4 (0-4) /hpf Influenza Type A (PCR) Not Detected (Not Detectd) Influenza Type B (PCR) Not Detected (Not Detectd) RSV (PCR) Not Detected (Not Detectd) SARS-CoV-2 (PCR) Not Detected (Not Detectd) 08/07/21 Range/Units 13:43 WBC (3.8-10.6) k/uL RBC (3.80-5.40) m/uL Hgb (11.4-16.0) gm/dL Hct (34.0-46.0) % MCV (80.0-100.0) fL MCH (25.0-35.0) pg MCHC (31.0-37.0) g/dL RDW (11.5-15.5) % Plt Count (150-450) k/uL MPV Neutrophils % % Lymphocytes % % Monocytes % % Eosinophils % % Basophils % % Neutrophils # (1.3-7.7) k/uL Lymphocytes # (1.0-4.8) k/uL Monocytes # (0-1.0) k/uL Eosinophils # (0-0.7) k/uL Basophils # (0-0.2) k/uL Sodium 133 L (137-145) mmol/L Potassium 5.4 H (3.5-5.1) mmol/L Chloride 105 (98-107) mmol/L Carbon Dioxide 24 (22-30) mmol/L Anion Gap 4 mmol/L BUN 15 (7-17) mg/dL Creatinine 0.67 (0.52-1.04) mg/dL Est GFR (CKD-EPI)AfAm >90 (>60 ml/min/1.73 sqM) Est GFR (CKD-EPI)NonAf >90 (>60 ml/min/1.73 sqM) Glucose 86 (74-99) mg/dL Calcium 9.5 (8.4-10.2) mg/dL Magnesium 1.8 (1.6-2.3) mg/dL Total Bilirubin 0.9 (0.2-1.3) mg/dL AST 34 (14-36) U/L ALT 15 (4-34) U/L Alkaline Phosphatase 37 L (38-126) U/L Total Protein 7.2 (6.3-8.2) g/dL Albumin 4.2 (3.5-5.0) g/dL Urine Color Urine Appearance (Clear) Urine pH (5.0-8.0) Ur Specific [place] (1.001-1.035) Urine Protein (Negative) Urine Glucose (UA) (Negative) Urine Ketones (Negative) Urine Blood (Negative) Urine Nitrite (Negative) Urine Bilirubin (Negative) Urine Urobilinogen (<2.0) mg/dL Ur Leukocyte Esterase (Negative) Urine RBC (0-5) /hpf Urine WBC (0-5) /hpf Ur Squamous Epith Cells (0-4) /hpf Influenza Type A (PCR) (Not Detectd) Influenza Type B (PCR) (Not Detectd) RSV (PCR) (Not Detectd) SARS-CoV-2 (PCR) (Not Detectd) Disposition Clinical Impression: Exacerbation of multiple sclerosis Disposition: ADMITTED IP TO THIS [facility] Decision Date: 08/07/21 Decision Time: 16:35
[2021-08-07 13:55] LABS: Basophils # (A) 0.1 k/uL (0-0.2); Basophils % (A) 0 %; Eosinophils # (A) 0.5 k/uL (0-0.7); Eosinophils % (A) 3 %; HCT 41.9 % (34.0-46.0); HGB 13.7 gm/dL (11.4-16.0); Lymphocytes # (A) 3.4 k/uL (1.0-4.8); Lymphocytes % (A) 18 %; MCH 29.6 pg (25.0-35.0); MCHC 32.6 g/dL (31.0-37.0); MCV 90.7 fL (80.0-100.0); Mean Platelet Volume 7.5; Monocytes # (A) 0.6 k/uL (0-1.0); Monocytes % (A) 3 %; Neutrophils # (A) 14.5 k/uL (1.3-7.7); Neutrophils % (A) 76 %; Platelet Count 386 k/uL (150-450); RBC 4.62 m/uL (3.80-5.40); WBC 19.2 k/uL (3.8-10.6)
[2021-08-07] MEDS ORDERED: HYDROmorphone 0.5 MG/0.5 ML SYRINGE IVP STA (13:55)
[2021-08-07 14:12] LABS: ALT 15 U/L (4-34); African American GFR (CKD) >90 (>60 ml/min/1.73 sqM); Albumin 4.2 g/dL (3.5-5.0); Anion Gap 4 mmol/L; Blood Urea Nitrogen 15 mg/dL (7-17); Calcium 9.5 mg/dL (8.4-10.2); Carbon Dioxide 24 mmol/L (22-30); Chloride 105 mmol/L (98-107); Glucose 86 mg/dL (74-99); Non-African American GFR(CKD) >90 (>60 ml/min/1.73 sqM); Sodium 133 mmol/L (137-145); Total Bilirubin 0.9 mg/dL (0.2-1.3); Total Protein 7.2 g/dL (6.3-8.2)
[2021-08-07 14:21] LABS: AST 34 U/L (14-36); Alkaline Phosphatase 37 U/L (38-126); Magnesium 1.8 mg/dL (1.6-2.3); Potassium 5.4 mmol/L (3.5-5.1)
[2021-08-07 15:13] LABS: Appearance,Urine Clear (Clear); Bilirubin,Urine Negative (Negative); Blood,Urine Small (Negative); Color,Urine Yellow; Glucose,Urine (UA) Negative (Negative); Ketones,Urine Negative (Negative); Leukocyte Esterase,Urine Negative (Negative); Nitrite,Urine Negative (Negative); Protein,Urine Negative (Negative); RBC,Urine 5 /hpf (0-5); Specific Gravity,Urine 1.018 (1.001-1.035); Squamous Epithelial Cell,Urine 4 /hpf (0-4); Urobilinogen,Urine <2.0 mg/dL (<2.0); WBC,Urine 2 /hpf (0-5)
[2021-08-07] MEDS: HYDROmorphone 0.5 MG/0.5 ML SYRINGE IVP STA ×3 (15:16→15:46)
[2021-08-07] MEDS: diphenhydrAMINE 50 MG/ML 1 ML VIAL IVP STA ×2 (15:17→15:46)
[2021-08-07] MEDS ORDERED: HYDROmorphone 1 MG/ML 1 ML SYRINGE IVP STA (16:34)
[2021-08-07] MEDS ORDERED: NALOXONE 0.4 MG/ML 1 ML VIAL IV PRN (16:35)
--- NOTE | 2021-08-07 17:51 | XR ---
EXAMINATION TYPE: XR chest 2V DATE OF EXAM: 08/07/2021 5:16 PM COMPARISON:Chest radiographs from 06/10/2021 CLINICAL INDICATION:Female, 41 years old with history of pain; TECHNIQUE: Frontal and lateral views of the chest. FINDINGS: Lungs/Pleura: There is no evidence of pleural effusion, focal consolidation, or pneumothorax. Pulmonary vascularity: Unremarkable. Heart/mediastinum: Cardiomediastinal silhouette is unremarkable. Musculoskeletal: No acute osseous pathology. IMPRESSION: No acute cardiopulmonary disease/process.
[2021-08-07] MEDS ORDERED: IPRATROPIUM-ALBUTEROL 3 ML NEB INHALATION PRN (18:38)
[2021-08-07] MEDS ORDERED: ALBUTEROL NEBULIZED 2.5 MG/3 ML INHALATION PRN (18:38)
[2021-08-07] MEDS ORDERED: ALPRAZolam 0.25 MG TAB PO PRN (18:39)
--- NOTE | 2021-08-07 19:27 | HP ---
HISTORY AND PHYSICAL DATE OF SERVICE: 08/07/2021. CHIEF COMPLAINTS: Generalized weakness, pain as well as some visual disturbances and right ear pain and diminished hearing. HISTORY OF PRESENT ILLNESS: This 41-year-old woman with a past medical history of asthma, fibromyalgia, GERD, hyperlipidemia, DJD, history of multiple sclerosis, being followed by Dr. Dietrich previously was complaining of generalized weakness and as well as generalized pain also. The patient also has some auditory difficulties on the right ear and also associated with that some visual diminishment. MS exacerbation suspected. Patient admitted for further evaluation and treatment. The patient had a neurologist elsewhere. The sodium 133, potassium 5.4. White count is elevated at 19.2. The patient had almost persistent elevation of white count. Influenza RSV and Covid 19 was negative. There is no history of fever, rigors, chills at this time. PAST MEDICAL HISTORY: Asthma, fibromyalgia, GERD, hypertension, multiple MS exacerbations. MEDICATIONS: Home medications are oxycodone, lisinopril, ALLERGIES: MULTIPLE ALLERGIES AMOXIL, CIPRO, CODEINE, BEE VENOM AND KETOROLAC, LATEX, NSAIDs. FAMILY HISTORY: History of uterine cancer and bladder cancer. SOCIAL HISTORY: Remote history of smoking. No history of alcohol intake. REVIEW OF SYSTEMS: ENT: Diminished vision. Diminished hearing. CARDIO system: No angina. RESPIRATION: No cough or hemoptysis. GI: No nausea or vomiting. : No dysuria. NERVOUS SYSTEM: As mentioned earlier. HEMATOLOGY/ONCOLOGY: No history of anemia. ENDOCRINE: No history of diabetes. CONSTITUTIONAL: As mentioned earlier. DERMATOLOGY negative. RHEUMATOLOGY: Negative. PSYCHIATRIC: As mentioned earlier. PHYSICAL EXAMINATION: Alert and oriented x3. Pulse is 86, blood pressure 116/70, respiration 17, temperature 97.6, pulse ox 97% on room air. HEENT is conjunctivae normal. NECK: No JVD. CARDIOVASCULAR: S1, S2. RESPIRATIONS: Breath sounds diminished in the bases. A few scattered rhonchi. ABDOMEN: Soft, nontender. LEGS: No edema. No swelling. NERVOUS SYSTEM: Higher functions as mentioned earlier, otherwise mild diffuse weakness and some tenderness also present. SKIN: No ulcers, rashes or bleeding. JOINTS: No active deforming arthropathy. LYMPHATICS: No lymph nodes palpable in the neck, axillae or groin. Hearing is normal. LAB: WBC 19.2, sodium 130, potassium 5.4. ASSESSMENT: 1. Acute multiple sclerosis acute exacerbation with multiple symptomatology. 2. Increased WBC. 3. Hyponatremia. 4. Hyperkalemia. 5. History of asthma. 6. History of fibromyalgia. 7. History of gastroesophageal reflux disease. 8. Hypertension. 9. History of degenerative joint disease. 10.History of pneumonia. 11.History of seizure disorder. 12.History of angina. 13.History of migraines. 14.History of polycystic ovarian syndrome. 15.Vitamin D deficiency. 16.History of optic neuritis. 17.History of C difficile colitis. 18.History of seizure disorder. 19.History of cholecystectomy. 20.History of anxiety, bipolar, depression, OCD. 21.Obesity with body mass of 35.5. RECOMMENDATIONS AND DISCUSSION: This 41-year-old woman who presented with multiple complex medical issues, at this time, we will monitor the patient closely. We will continue the current medication, continue symptomatic treatment and we will initiate high-dose IV steroids. Neurology evaluation. Pain management. Resume the home medications. Prognosis guarded because of multiple complex medical issues. Further recommendations to follow. MMODL / IJN: [id number] / MTDJonathan
[2021-08-07] MEDS ORDERED: LORazepam 2 MG/ML INJ IV ONE ×2 (19:55→23:15)
[2021-08-07] MEDS: HEPARIN SODIUM,PORCINE/PF 5,000 UNIT/0.5 ML SYRINGE SQ SCH (21:54)
[2021-08-07] MEDS: HYDROmorphone 1 MG/ML 1 ML SYRINGE IVP PRN (21:55)
[2021-08-07] MEDS: ONDANSETRON 4 MG/2 ML VIAL IVP PRN (22:13)
[2021-08-07] MEDS: methylPREDNISolone SOD SUCC 1,000 MG in SODIUM CHLORIDE 0.9% 250 ML IVPB SCH (23:03)
[2021-08-07] MEDS: SODIUM CHLORIDE 0.9% 1,000 ML IV SCH (23:03)
[2021-08-07] MEDS: INSULIN ASPART (NovoLOG) 100 UNIT/ML VIAL SQ SCH (23:27)
[2021-08-08] MEDS: oxyCODONE-APAP 10-325MG 1 EACH TAB PO PRN ×2 (01:08→20:10)
[2021-08-08] MEDS: ONDANSETRON 4 MG/2 ML VIAL IVP PRN ×3 (04:15→20:08)
[2021-08-08] MEDS: HYDROmorphone 1 MG/ML 1 ML SYRINGE IVP PRN ×4 (04:16→22:59)
[2021-08-08] MEDS: SODIUM CHLORIDE 0.9% 1,000 ML IV SCH ×2 (05:57→22:49)
[2021-08-08 07:39] LABS: Glucose,Whole Blood 201 mg/dL (75-99)
[2021-08-08] MEDS: NON FORMULARY DRUG (Dextroamphetamine/Amphetamine [Adderall] 30 MG Tablet) PO SCH (07:53)
[2021-08-08] MEDS: HEPARIN SODIUM,PORCINE/PF 5,000 UNIT/0.5 ML SYRINGE SQ SCH ×2 (08:05→22:00)
[2021-08-08] MEDS: methylPREDNISolone SOD SUCC 1,000 MG in SODIUM CHLORIDE 0.9% 250 ML IVPB SCH ×2 (08:05→22:01)
[2021-08-08] MEDS: lisinopriL 20 MG TAB PO SCH (08:06)
[2021-08-08] MEDS: HYDROmorphone 0.5 MG/0.5 ML SYRINGE IVP PRN ×3 (08:16→18:25)
[2021-08-08] MEDS: INSULIN ASPART (NovoLOG) 100 UNIT/ML VIAL SQ SCH ×4 (08:17→22:01)
[2021-08-08 09:33] LABS: HCT 41.9 % (37.2-46.3); HGB 13.4 g/dL (12.0-15.0); MCH 29.1 pg (27.0-32.0); MCV 90.9 fL (80.0-97.0); Mean Platelet Volume 10.4 fL (9.5-12.2); Platelet Count 402 X 10*3/uL (140-440); RBC 4.61 X 10*6/uL (4.10-5.20); RDW 13.5 % (11.5-14.5)
[2021-08-08 09:59] LABS: African American GFR (CKD) 126.5 (60.0-200.0); Anion Gap 14.4 mmol/L (10.00-18.00); BUN/Creat Ratio 23.86 Ratio (12.00-20.00); Blood Urea Nitrogen 16.7 mg/dL (9.0-27.0); Calcium 9.2 mg/dL (8.7-10.3); Carbon Dioxide 19.6 mmol/L (20.0-27.5); Non-African American GFR(CKD) 109.1 (60.0-200.0); Potassium 4.6 mmol/L (3.5-5.5)
[2021-08-08 11:30] LABS: Basophils # (A) 0.02 X 10*3/uL (0.00-0.10); Basophils % (A) 0.1 %; Eosinophils # (A) 0.01 X 10*3/uL (0.04-0.35); Eosinophils % (A) 0.1 %; Lymphocytes # (A) 0.94 X 10*3/uL (0.90-5.00); Lymphocytes % (A) 6.5 %; Monocytes # (A) 0.06 X 10*3/uL (0.20-1.00); Monocytes % (A) 0.4 %; Neutrophils # (A) 13.31 X 10*3/uL (1.80-7.70); Neutrophils % (A) 91.8 %
[2021-08-08 11:50] LABS: Glucose,Whole Blood 185 mg/dL (75-99)
[2021-08-08] MEDS: NICOTINE 21MG/24HR PATCH TRANSDERM SCH (12:55)
[2021-08-08] MEDS: diazePAM 5 MG TAB PO PRN ×2 (14:21→22:01)
--- NOTE | 2021-08-08 15:46 | PN ---
PROGRESS NOTE DATE OF SERVICE: 08/08/2021 This is a 41-year-old woman with a past history of multiple sclerosis and multiple admissions with recurrent exacerbations, being admitted with complaints of blurred vision as well as right-sided hearing difficulties. The patient is on high-dose IV steroids. Neurology following the patient closely. No chest pain. No palpitations. No fever. White count is elevated. Sodium was 133, improved to 135. There is no history of fever, rigors, chills at this time. Blood sugar is elevated. Past medical history reviewed. REVIEW OF SYSTEMS: Cardio system: No angina or palpitations. Respiratory: As mentioned earlier. GI: No nausea or vomiting. : No dysuria. Nervous system: No numbness or weakness. CURRENT MEDICATIONS: Reviewed and include: DuoNeb, Valium, Heparin, Dilaudid, NovoLog, high-dose IV steroids, Solu-Medrol 1000 mg IV b.i.d. PHYSICAL EXAM: Patient is alert and oriented times three. Pulse 94, blood pressure 133/78, respirations 18, temperature 98.5, pulse ox 94% on room air. HEENT: Conjunctivae normal. Neck: No JVD. Cardiovascular: S1, S2. Respiratory: Breath sounds diminished at the bases. No rhonchi. No crackles. Abdomen: Soft. Nontender. Nervous system: No focal deficits. Minimal hearing difficulties on the right side. LAB STUDIES: WBC 14.5, sodium 130, Potassium 4.6. Influenza RSV negative. ASSESSMENT: 1. Multiple sclerosis, acute exacerbation on high-dose IV steroids. 2. Multiple symptomatology including blurring of vision as well as right hearing deficit. 3. Increased WBC. 4. Hyponatremia. 5. Hyperkalemia. 6. History of asthma. 7. History of fibromyalgia. 8. History of gastroesophageal reflux disease. 9. Hypertension. 10.History of degenerative joint disease. 11.History of pneumonia. 12.History of seizure disorder. 13.History of angina. 14.History of migraines. 15.History of polycystic ovarian syndrome. 16.History of vitamin D deficiency. 17.History of optic neuritis. 18.History of C difficile colitis. 19.Seizure disorder. 20.History of cholecystectomy. 21.History of anxiety, depression, bipolar, OCD. 22.Obesity with body mass index of 34.5. RECOMMENDATIONS AND DISCUSSION: Recommend to continue current medications, symptomatic treatment, continue high-dose IV steroids. Monitor blood sugars closely. Closely follow with Neurology. Guarded prognosis because of multiple complex medical issues. Possible MRI of the brain. Further recommendations to follow. MMODL / IJN: [id number] /
[2021-08-08 17:30] LABS: Glucose,Whole Blood 207 mg/dL (75-99)
[2021-08-08 20:45] LABS: Glucose,Whole Blood 218 mg/dL (75-99)
[2021-08-08] MEDS: TEMAZEPAM 15 MG CAP PO PRN (22:00)
--- NOTE | 2021-08-08 23:20 | P.CNNES ---
History of Present Illness Consult date: 08/08/21 Requesting physician: Estiven Oden Reason for Consult: Exacerbation of multiple sclerosis History of Present Illness: Patient is a 41-year-old female with history of relapsing remitting MS, well known to me from previous multiple admissions to the hospital came to the hospital yesterday at 11:36 AM for generalized body aches, nausea vomiting and hearing disturbance. Patient states that on 08/05/2021, patient woke up and threw up. She felt achy in the body. She felt nauseous. The next day on Friday in the morning when she got out of bed, she felt dizzy and fell. Denies any vertigo. She was just lightheaded. At night she noticed burning sensation in the right side of the head with tingling and pressure. It lasted for about half an hour, but as the symptoms were resolving, she noticed that her hearing on the right side was muffled. Then she felt it was going to the right eye and she felt blurred vision. She had fuzzy blurred vision with the right eye. Denies any complete loss of the vision however. She continues to feel muffled hearing on the right side. Therefore she came to the hospital. Patient's blood test shows WBC 19.2, hemoglobin 13.7 platelets 386. Sodium 133, potassium 5.4, both are normal now. Renal functions are normal, hepatic panel normal. UA negative. Influenza and negro virus PCR and RSV PCR negative. Patient's last B12 was 334 on 12/25/2020 with folate 10.0. TFTs normal. Patient previously used to be on Tecfidera and was in the process of switching to Mavenclad. Patient has previously tried numerous medications including Avonex, Copaxone, Gilenya and Ocrevus. Patient had a bad reaction from Ocrevus with hives, shortness of breath, trouble breathing and lip swelling. Patient's last JCV titers were positive at 3.68 on 08/31/2018. Patient states that she cannot be started on Mavenclad because of reactive leukocytosis. Patient has not started Tecfidera, as was recommended on the last admission. She is not taking any disease modifying agent since last seen on 06/11/2021. Review of Systems As mentioned above in HPI. All other review of systems are reviewed and unremarkable. Past Medical History Past Medical History: Asthma, Fibromyalgia, GERD/Reflux, Hypertension, Musculo skeletal Disorder, Neurologic Disorder, Pneumonia, Seizure Disorder Additional Past Medical History / Comment(s): Multiple Sclerosis, angina, migraines, DJD, interstitial cystitis, UTI, PCOS, vit D deficiency, bilateral optic neuritis with visual problems, generalized chronic pain, numbness/tingling bilateral lower legs, tachycardia, c-diff 5-9-16, seizures from MS last one around 2016. ADHD. 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 PCOS. History of Any Multi-Drug Resistant Organisms: C-DIFF Date of last positivie culture/infection: 2017 MDRO Source:: stool Past Surgical History: Cholecystectomy, Orthopedic Surgery Additional Past Surgical History / Comment(s): Lt shoulder rotator cuff repair 06/06/14, arthroscopic left knee 2000 & 2002, left shoulder reconstruction Past Anesthesia/Blood Transfusion Reactions: No Reported Reaction Additional Past Anesthesia/Blood Transfusion Reaction / Comment(s): Pt has never recieved blood. Past Psychological History: Anxiety, Bipolar, Depression Smoking Status: Former smoker, Vaper Past Alcohol Use History: None Reported Past Drug Use History: None Reported - Past Family History Mother Family Medical History: No Reported History Additional Family Medical History / Comment(s): mother is healthy. Maternal grandmother had uterine cancer. Maternal grandfather had bladder cancer. Father Family Medical History: Hypertension Additional Family Medical History / Comment(s): Paternal grandfather had an CT. Medications and Allergies Home Medications Medication Instructions Recorded Confirmed Type Ipratropium/Albuterol Sulfate 2 puff INHALATION RT-BID PRN 12/09/13 08/07/21 History [Combivent Respimat Inhaler] Albuterol Inhaler [Ventolin Hfa 2 puff INHALATION RT-QID PRN 03/04/20 08/07/21 History Inhaler] Dextroamphetamine/Amphetamine 30 mg PO DAILY 10/01/20 08/07/21 History [Adderall] lisinopriL 20 mg PO DAILY 10/01/20 08/07/21 History oxyCODONE HCL/ACETAMINOPHEN 1 tab PO BID PRN 08/07/21 08/07/21 History [Percocet 10-325 mg] Allergies Allergy/AdvReac Type Severity Reaction Status Date / Time amoxicillin [Amoxicillin] Allergy Severe Anaphylaxis, Verified 08/07/21 17:33 seizures ciprofloxacin [From Cipro] Allergy Severe Rash/Hives, Verified 08/07/21 17:33 seizures codeine phosphate Allergy Unknown Rash/Hives Verified 08/07/21 17:33 [From Tylenol-Codeine #3] bee venom protein (honey bee) Allergy Anaphylaxis Verified 08/07/21 17:33 cefuroxime axetil Allergy Rash/Hives Verified 08/07/21 17:33 [From Ceftin] ketorolac [From Toradol] Allergy Rash/Hives Verified 08/07/21 17:33 latex Allergy Rash/Hives Verified 08/07/21 17:33 NSAIDS (Non-Steroidal Allergy Rash/Hives/Lip Verified 08/07/21 17:33 Anti-Inflamma Swelling sulfamethoxazole Allergy Itching Verified 08/07/21 17:33 [From Bactrim] trimethoprim [From Bactrim] Allergy Itching Verified 08/07/21 17:33 Physical Examination - Vital Signs Vital Signs: Vital Signs Temp Pulse Pulse Resp BP BP Pulse Ox 08/08/21 08:00 94 18 08/08/21 07:00 98.5 F 94 18 137/78 95 08/08/21 01:29 98.3 F 78 18 145/84 96 08/07/21 20:30 97.8 F 92 17 119/82 97 08/07/21 20:00 92 08/07/21 18:52 97.6 F 83 18 130/78 98 08/07/21 17:21 79 18 134/83 100 Intake and Output 08/08/21 08/08/21 08/08/21 06:59 14:59 22:59 Other: Voiding Method Bedside Commode Patient is a young female, in no acute distress. Patient is alert awake oriented to time place and person. Speech and language functions are normal. Attention, concentration and fund of knowledge is adequate. On cranial examination, pupils are round and reacting to light, visual pacheco revealed right-sided visual field deficit. Her extraocular muscles are intact with no nystagmus. Face is symmetric, tongue protrudes to the midline. Palatal elevation and sensation normal, hearing is significantly decreased for finger rubbing on the right whereas normal on the left. Her shoulder shrug normal, facial sensation decreased for touch in the right side of the face. 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 Her strength is normal in the lower extremities. Deep tendon reflexes are decreasing plantars are flat bilaterally. Sensory to touch revealed decreased sensation in the right leg as compared to the left. Cerebellar function showed no ataxia for [id number] testing. No dysdiadochokinesia. Tone and bulk of muscles normal. Gait deferred. She was able to get in and out of the bed fine. On general examination, there is no carotid bruit or murmur, S1-S2 audible. Abdomen is soft nontender. Chest is clear. Peripheral pulses are present. No edema. Results - Laboratory Findings CBC and BMP: 08/08/21 06:28 08/08/21 06:28 Abnormal Lab Findings: Abnormal Labs 08/07/21 08/07/21 08/07/21 13:43 13:43 13:43 WBC 19.2 H Immature Gran # Neutrophils # 14.5 H Monocytes # Eosinophils # Sodium 133 L Potassium 5.4 H Carbon Dioxide BUN/Creatinine Ratio Glucose POC Glucose (mg/dL) Alkaline Phosphatase 37 L Urine Blood Small H 08/08/21 08/08/21 08/08/21 06:28 06:28 07:28 WBC 14.50 H Immature Gran # 0.16 H Neutrophils # 13.31 H Monocytes # 0.06 L Eosinophils # 0.01 L Sodium Potassium Carbon Dioxide 19.6 L BUN/Creatinine Ratio 23.86 H Glucose 204 H POC Glucose (mg/dL) 201 H Alkaline Phosphatase Urine Blood 08/08/21 11:48 WBC Immature Gran # Neutrophils # Monocytes # Eosinophils # Sodium Potassium Carbon Dioxide BUN/Creatinine Ratio Glucose POC Glucose (mg/dL) 185 H Alkaline Phosphatase Urine Blood Assessment and Plan Assessment: * Possible MS exacerbation, presenting with dizziness, nausea, decreased hearing on the right side. She does have some old right visual field deficit. * History of recurrent UTI, but currently she does not have a UTI. * Obesity * X tobacco use Plan: * MRI of the brain with and without contrast to follow up on her MS, rule out any new exacerbation. * Patient has been started on Solu-Medrol 1 g IVPB daily for 3-5 days. * Patient is aware of possible side effects of high-dose steroids. * Patient again recommended to resume disease modifying agent as soon as possible. * We will follow patient while in the hospital.
[2021-08-09] MEDS: HYDROmorphone 0.5 MG/0.5 ML SYRINGE IVP PRN ×5 (02:38→19:59)
[2021-08-09] MEDS: ONDANSETRON 4 MG/2 ML VIAL IVP PRN ×4 (02:39→22:41)
[2021-08-09] MEDS: HYDROmorphone 1 MG/ML 1 ML SYRINGE IVP PRN ×4 (05:21→22:41)
[2021-08-09] MEDS: SODIUM CHLORIDE 0.9% 1,000 ML IV SCH ×2 (05:23→16:42)
[2021-08-09] MEDS: diazePAM 5 MG TAB PO PRN ×2 (05:57→16:39)
[2021-08-09 07:17] LABS: Glucose,Whole Blood 162 mg/dL (75-99)
[2021-08-09] MEDS: NICOTINE 21MG/24HR PATCH TRANSDERM SCH (08:16)
[2021-08-09] MEDS: lisinopriL 20 MG TAB PO SCH (08:19)
[2021-08-09] MEDS: INSULIN ASPART (NovoLOG) 100 UNIT/ML VIAL SQ SCH ×4 (08:20→21:16)
[2021-08-09] MEDS: HEPARIN SODIUM,PORCINE/PF 5,000 UNIT/0.5 ML SYRINGE SQ SCH ×2 (08:23→20:00)
[2021-08-09] MEDS: oxyCODONE-APAP 10-325MG 1 EACH TAB PO PRN ×2 (08:29→23:33)
[2021-08-09] MEDS: NON FORMULARY DRUG (Dextroamphetamine/Amphetamine [Adderall] 30 MG Tablet) PO SCH (08:42)
[2021-08-09] MEDS ORDERED: ALPRAZolam 0.5 MG TAB PO STA (10:23)
[2021-08-09] MEDS ORDERED: LORazepam 2 MG/ML INJ IV STA (10:36)
[2021-08-09 12:48] LABS: Glucose,Whole Blood 180 mg/dL (75-99)
[2021-08-09 17:01] LABS: Glucose,Whole Blood 191 mg/dL (75-99)
--- NOTE | 2021-08-09 19:50 | PN ---
PROGRESS NOTE DATE OF SERVICE: 08/09/2021. This 41-year-old woman who was admitted with significant multiple sclerosis exacerbation had MRI done. Final reports are pending. Patient is on high-dose IV steroids. Neurology is following the patient closely. No chest pain. No palpitations. No fever. PHYSICAL EXAMINATION: Alert and oriented x3. Pulse 58, blood pressure 159/97, respiration 20, temperature 98.1, pulse ox 100% on room air. HEENT: Conjunctivae normal. NECK: No jugular venous distention. CARDIOVASCULAR: S1, S2 muffled. RESPIRATION: Breath sounds diminished at the bases. No rhonchi. No crackles. ABDOMEN: Soft, nontender. LEGS: No edema. No swelling. NERVOUS SYSTEM: No focal deficit. Hearing is still diminished. LABS: WBC 14.5. Other labs are noted. ASSESSMENT: 1. Multiple sclerosis, acute exacerbation, on high-dose IV steroids. 2. Multiple symptomatology, including blurring of vision as well as diminished hearing on the right side. 3. Increased white count. 4. Hyponatremia. 5. Hyperkalemia. 6. History of asthma. 7. History of fibromyalgia. 8. History of gastroesophageal reflux disease. 9. Hypertension. 10.History of degenerative joint disease. 11.History of pneumonia. 12.History of seizure disorder. 13.History of angina. 14.History of migraines. 15.History of polycystic ovarian syndrome. 16.History of vitamin D deficiency. 17.History of optic neuritis. 18.History of Clostridium difficile colitis. 19.Seizure disorder. 20.History of cholecystectomy. 21.Anxiety, depression, bipolar, OCD. 22.Obesity with body mass index of 34.5. RECOMMENDATIONS AND DISCUSSION: I recommend to continue current medications, continue the monitoring, symptomatic treatment. Otherwise at this time I would recommend continue with high-dose IV steroids. Continue the rest of the medications. Await MRI reports. Guarded prognosis. Further recommendations to follow. MMODL / IJN: [id number] /
[2021-08-09 20:19] LABS: Glucose,Whole Blood 219 mg/dL (75-99)
[2021-08-09] MEDS: TEMAZEPAM 15 MG CAP PO PRN (21:25)
[2021-08-09] MEDS: methylPREDNISolone SOD SUCC 1,000 MG in SODIUM CHLORIDE 0.9% 250 ML IVPB SCH (22:41)
--- NOTE | 2021-08-09 23:56 | P.PN ---
Subjective Progress Note Date: 08/09/21 Patient was seen for a follow-up. Patient continues to have muffled hearing on the right side. Also notices numbness, pressure on the right side of the head, that extends to the right occipital region and the neck. Denies slurred speech. Patient tells me that she has been off Tecfidera since October or November 2020. Objective - Vital Signs Vital signs: Vital Signs Temp 98.2 F 08/09/21 14:00 Pulse 58 L 08/09/21 14:00 Resp 20 08/09/21 14:00 BP 159/97 08/09/21 14:00 Pulse Ox 100 08/09/21 14:00 Intake & Output 08/08/21 08/09/21 08/09/21 18:59 06:59 18:59 Intake Total 1150 240 Balance 1150 240 Intake: Intake, IV Titration 1150 Amount Sodium Chloride 0.9% 1, 900 000 ml @ 75 mls/hr IV . [id number] COUNTS INCLUDE 234 BEDS AT [facility] Rx#:[id number] methylPREDNISolone SOD 250 SUCC 1,000 mg In Sodium Chloride 0.9% 250 ml @ 250 mls/hr IVPB DAILY@ 2200 KITA Rx#:[id number] Oral 240 Other: Voiding Method Bedside Commode Bedside Commode Bedside Commode # Voids 4 - Exam Patient's mental status, speech and language functions are normal. Detailed examination deferred. - Labs CBC & Chem 7: 08/08/21 06:28 08/08/21 06:28 Labs: Abnormal Lab Results - Last 24 Hours (Table) 08/08/21 08/08/21 08/09/21 Range/Units 17:23 20:44 07:02 POC Glucose (mg/dL) 207 H 218 H 162 H (75-99) mg/dL 08/09/21 Range/Units 11:43 POC Glucose (mg/dL) 180 H (75-99) mg/dL Assessment and Plan Assessment: * Acute MS exacerbation, presenting with dizziness, nausea, decreased hearing on the right side. She does have some old right visual field deficit. * History of recurrent UTI, but currently she does not have a UTI. * Obesity * X tobacco use Plan: * MRI of the brain with and without contrast was performed today. I reviewed MRI, and there is radiographic evidence of 2 new lesions, one of them involving the right pontine region, measuring 8.9 mm and the other in the left frontal subcortical white matter measuring 10 mm. Both of these lesions are new as compared to the previous MRI of the brain from 10/06/2020. Questionable minimal contrast enhancement in the right pontine lesion, but not the left frontal. We will await final official radiology report. I reviewed MRI films on the computer with the patient as well. * Patient has been started on Solu-Medrol 1 g IVPB daily for 5 days. * Patient has herself stopped taking Tecfidera since around October or November 2020. Patient again recommended to resume disease modifying agent as soon as possible.
[2021-08-10] MEDS: diazePAM 5 MG TAB PO PRN ×2 (01:34→10:45)
[2021-08-10] MEDS: HYDROmorphone 0.5 MG/0.5 ML SYRINGE IVP PRN ×3 (01:34→13:05)
--- NOTE | 2021-08-10 02:27 | MR ---
EXAMINATION TYPE: MR brain wo/w con DATE OF EXAM: 08/09/2021 COMPARISON: None HISTORY: MS exacerbation. CONTRAST: Standard multiplanar, multisequence MRI departmental protocol images were obtained without contrast a nd with 10 mL intravenous Gadavist gadolinium contrast. Ventricles have normal size. There is no mass effect or midline shift. There is no sign of intracrani al hemorrhage. Diffusion images show a rounded 12 mm high signal focus in the left parietal lobe at t he nettles-white matter junction. On the T2 and FLAIR images there are discrete multiple foci of increas ed signal measuring up to 1.2 cm in the periventricular white matter. There is involvement of the cor pus callosum. These appear more concentrated in the right parietal lobe. There is 2 x 1 cm area of fl uid signal at the right posterior parietal cortex consistent with an old infarct. There is some mild cortical increased signal also in the medial right occipital lobe on the T2 and FLAIR images. There i s normal enhancement of the venous sinuses. I see no definite pathologic intracranial enhancement. Th ere is a 9 mm rounded focus of increased signal in the right side of the radha. IMPRESSION: Multiple white matter high signal foci consistent with demyelinating disease. There is a new large le alberto in the right side of the radha compared to old exam. There is a new left parietal 1.2 cm white ma tter lesion. There is evidence of progression of demyelinating disease. 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
[2021-08-10] MEDS: HYDROmorphone 1 MG/ML 1 ML SYRINGE IVP PRN ×2 (05:18→11:23)
[2021-08-10] MEDS: ONDANSETRON 4 MG/2 ML VIAL IVP PRN ×2 (05:18→11:22)
[2021-08-10 07:20] LABS: Glucose,Whole Blood 182 mg/dL (75-99)
[2021-08-10] MEDS: NON FORMULARY DRUG (Dextroamphetamine/Amphetamine [Adderall] 30 MG Tablet) PO SCH (07:26)
[2021-08-10] MEDS: INSULIN ASPART (NovoLOG) 100 UNIT/ML VIAL SQ SCH ×2 (07:31→13:05)
[2021-08-10] MEDS: HEPARIN SODIUM,PORCINE/PF 5,000 UNIT/0.5 ML SYRINGE SQ SCH (07:32)
[2021-08-10] MEDS: NICOTINE 21MG/24HR PATCH TRANSDERM SCH (07:32)
[2021-08-10] MEDS: lisinopriL 20 MG TAB PO SCH (07:32)
[2021-08-10] MEDS: oxyCODONE-APAP 10-325MG 1 EACH TAB PO PRN (07:44)
[2021-08-10 07:50] VITALS: RESP 18
[2021-08-10 12:12] LABS: Glucose,Whole Blood 163 mg/dL (75-99)
[2021-08-10] MEDS: methylPREDNISolone SOD SUCC 1,000 MG in SODIUM CHLORIDE 0.9% 250 ML IVPB SCH (13:06)
[2021-08-10 15:26] VITALS: BP 156/100; PULSE 71; TEMP 98.2
[2021-08-10] MEDS ORDERED: HYDROmorphone 0.5 MG/0.5 ML SYRINGE IVP STA (15:33)
--- NOTE | 2021-08-10 19:54 | DS ---
DISCHARGE SUMMARY DATE OF SERVICE: 08/10/2021 FINAL DIAGNOSES: 1. Multiple sclerosis, acute exacerbation, on high-dose IV steroids. 2. Multiple symptomatology, including blurring of vision as well as diminished hearing on the right side. 3. New lesions on MRI. 4. Increased white count. 5. Hyponatremia. 6. Hyperkalemia. 7. History of asthma. 8. History of fibromyalgia. 9. Gastroesophageal reflux disease. 10.Hypertension. 11.History of degenerative joint disease. 12.History of pneumonia. 13.History of seizure disorder. 14.History of angina. 15.History of migraine. 16.Polycystic ovarian syndrome. 17.Vitamin D deficiency. 18.History of optic neuritis. 19.History of Clostridium difficile colitis. 20.Seizure disorder. 21.History of cholecystectomy. 22.Anxiety, depression bipolar, OCD. 23.Obesity with body mass index of 34.5. DISCHARGE DISPOSITION: The patient will be discharged in stable condition with guarded prognosis. HISTORY OF PRESENT ILLNESS: This 41-year-old woman with a past medical history of multiple medical problems, being followed by no primary physician in the outpatient setting, was admitted with features of multiple sclerosis, acute exacerbation. Patient had blurring of vision and some hearing deficit on the right side. MRI showed some apparently new lesions. Patient was given high-dose IV steroids [address] Mayo from Neurology saw the patient and recommended that the patient be discharged. On exam, vitals are stable. CARDIOVASCULAR: S1, S2 muffled. ABDOMEN: Soft. NERVOUS SYSTEM: No focal deficit. DISCHARGE ADVICE AND MEDICATIONS: 1. Discharge diet is cardiac. 2. Activity limited until followup. 3. Follow up with primary physician in 2 to 3 days. 4. Follow up with the patient's own neurologist, as mentioned earlier. 5. Dexameth amphetamine 30 mg p.o. daily. 6. DuoNeb q.i.d. p.r.n. 7. Oxycodone as before. 8. Albuterol p.r.n. . 9. Habitrol 21 daily. 10.Valium 5 mg t.i.d. p.r.n. 11.Zestril 20 mg p.o. daily. 12.Zofran p.r.n. MMODL / CEEN: [id number] / [facility]
--- NOTE | 2021-08-10 21:25 | P.PN ---
Subjective Progress Note Date: 08/10/21 Patient was seen for a follow-up. Patient's symptoms have improved. She has received 5 doses of Solu-Medrol 1 g IV PB. Patient continues to have muffled hearing on the right side. Also notices numbness, pressure on the right side of the head, that extends to the right occipital region and the neck. Denies slurred speech. Patient tells me that she has been off Tecfidera since October or November 2020. Objective - Vital Signs Vital signs: Vital Signs Temp 98.2 F 08/10/21 14:00 Pulse 71 08/10/21 14:00 Resp 18 08/10/21 14:00 BP 156/100 08/10/21 14:00 Pulse Ox 95 08/10/21 14:00 Intake & Output 08/09/21 08/10/21 08/10/21 18:59 06:59 18:59 Intake Total 240 240 Output Total 300 300 Balance -60 -60 Intake: Oral 240 240 Output: Urine 300 300 Other: Voiding Method Bedside Commode Bedside Commode # Voids 2 0 - Exam Patient's mental status, speech and language functions are normal. Patient's gait appears very steady. - Labs CBC & Chem 7: 08/08/21 06:28 08/08/21 06:28 Labs: Abnormal Lab Results - Last 24 Hours (Table) 08/09/21 08/09/21 08/10/21 Range/Units 16:53 20:04 07:00 POC Glucose (mg/dL) 191 H 219 H 182 H (75-99) mg/dL 08/10/21 Range/Units 12:07 POC Glucose (mg/dL) 163 H (75-99) mg/dL Assessment and Plan Assessment: * Acute MS exacerbation, presenting with dizziness, nausea, decreased hearing on the right side. She does have some old right visual field deficit. * Relapsing remitting multiple sclerosis. * History of recurrent UTI, but currently she does not have a UTI. * Obesity * X tobacco use Plan: * MRI of the brain with and without contrast reported as multiple white matter high signal foci consistent with demyelinating disease. There is a new large lesion in this right side of the radha compared to old exam. There is a new left parietal 1.2 cm white matter lesion. There is evidence of progression of demyelinating disease. 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 * Patient has received total of 5 doses of Solu-Medrol 1 g IVPB. * Patient will be discharged on prednisone 60 mg daily for 5 days and then decrease by 10 mg daily until off. Prescription was provided. * Patient has herself stopped taking Tecfidera since around October or November 2020. Patient again recommended to resume disease modifying agent as soon as possible. * Patient strongly recommended to see her neurologist as soon as possible. She was recommended to obtain the disc of the MRI for her neurologist review. * Neurologically clear.
== END 2021-08-10 16:40 | disposition home health service (06) | DRG 59 ==
LOC: EC 11:36 → 6NMEDSUR 16:46 → OBSVTOIN 08-08 10:48
PROVIDERS: ADMIT Hospitalist; ATTEND Hospitalist
DX: G35 Multiple sclerosis (principal); E87.1 Hypo-osmolality and hyponatremia; D72.828 Other elevated white blood cell count; Z20.822 Contact with and (suspected) exposure to COVID-19; E28.2 Polycystic ovarian syndrome; E55.9 Vitamin D deficiency, unspecified; H53.40 Unspecified visual field defects; E66.9 Obesity, unspecified; N30.10 Interstitial cystitis (chronic) without hematuria; Z68.34 Body mass index [BMI] 34.0-34.9, adult; E78.5 Hyperlipidemia, unspecified; E87.5 Hyperkalemia; F31.9 Bipolar disorder, unspecified; F41.9 Anxiety disorder, unspecified; F42.9 Obsessive-compulsive disorder, unspecified; G40.909 Epilepsy, unspecified, not intractable, without status epilepticus; H91.91 Unspecified hearing loss, right ear; I10 Essential (primary) hypertension; J45.909 Unspecified asthma, uncomplicated; M19.90 Unspecified osteoarthritis, unspecified site; K21.9 Gastro-esophageal reflux disease without esophagitis; M79.7 Fibromyalgia; Z79.899 Other long term (current) drug therapy; Z80.49 Family history of malignant neoplasm of other genital organs; Z80.52 Family history of malignant neoplasm of bladder; Z82.49 Family history of ischemic heart disease and other diseases of the circulatory system; Z87.01 Personal history of pneumonia (recurrent); Z86.19 Personal history of other infectious and parasitic diseases; Z87.440 Personal history of urinary (tract) infections; Z87.891 Personal history of nicotine dependence; Z90.49 Acquired absence of other specified parts of digestive tract; Z87.19 Personal history of other diseases of the digestive system; Z88.1 Allergy status to other antibiotic agents; Z88.5 Allergy status to narcotic agent; Z88.6 Allergy status to analgesic agent; Z91.040 Latex allergy status; Z91.030 Bee allergy status
CPT/HCPCS: 36415; 70553; 71046; 80048; 80053; 81001; 83735; 85025; 87636; 96374; 96375; 96376; 99285

== ENCOUNTER 2021-12-26 18:13 | Observation (INO) | payer MEDICARE, OTHER ==
[2021-12-26] MEDS ORDERED: SODIUM CHLORIDE 0.9% 1,000 ML IV STA (18:47)
[2021-12-26] MEDS ORDERED: HYDROmorphone 1 MG/ML 1 ML SYRINGE IVP STA (18:48)
[2021-12-26] MEDS ORDERED: methylPREDNISolone SOD SUCCI 125 MG/2 ML VIAL IV STA (18:48)
[2021-12-26] MEDS ORDERED: ONDANSETRON 4 MG/2 ML VIAL IVP STA ×2 (19:06→20:31)
[2021-12-26 19:13] LABS: Basophils # (A) 0.1 k/uL (0-0.2); Basophils % (A) 1 %; Eosinophils # (A) 0.5 k/uL (0-0.7); Eosinophils % (A) 3 %; HCT 42.5 % (34.0-46.0); HGB 13.6 gm/dL (11.4-16.0); Lymphocytes # (A) 3.8 k/uL (1.0-4.8); Lymphocytes % (A) 24 %; MCH 28.9 pg (25.0-35.0); MCV 90.3 fL (80.0-100.0); Mean Platelet Volume 7.6; Monocytes # (A) 0.7 k/uL (0-1.0); Monocytes % (A) 4 %; Neutrophils # (A) 10.4 k/uL (1.3-7.7); Neutrophils % (A) 67 %; Platelet Count 377 k/uL (150-450); RDW 12.5 % (11.5-15.5); WBC 15.7 k/uL (3.8-10.6)
--- NOTE | 2021-12-26 19:15 | ED ---
General Adult HPI - General Chief complaint: Neuro Symptoms/Deficit Stated complaint: Pain/R Side numbness Time Seen by Provider: 12/26/21 18:39 Source: patient, RN notes reviewed, old records reviewed Mode of arrival: wheelchair Limitations: no limitations - History of Present Illness Initial comments: 41-year-old female presenting for evaluation of generalized pain and numbness and tingling to the right arm and foot. Her symptoms 7 present for the past 24 hours. She states she has MS and this is typical of her previous exacerbation. Her pain is probably generalized and throughout her upper back. No central chest pain. No fevers. She's had some vomiting. She had taken Percocet at home without significant relief. - Related Data Home Medications Medication Instructions Recorded Confirmed Ipratropium/Albuterol Sulfate 2 puff INHALATION RT-BID PRN 12/09/13 08/07/21 [Combivent Respimat Inhaler] Albuterol Inhaler [Ventolin Hfa 2 puff INHALATION RT-QID PRN 03/04/20 08/07/21 Inhaler] Dextroamphetamine/Amphetamine 30 mg PO DAILY 10/01/20 08/07/21 [Adderall] oxyCODONE HCL/ACETAMINOPHEN 1 tab PO BID PRN 08/07/21 08/07/21 [Percocet 10-325 mg] Previous Rx's Medication Instructions Recorded Nicotine 21Mg/24Hr Patch [Habitrol] 1 patch TRANSDERM DAILY 30 Days 08/10/21 #30 patch Ondansetron Odt [Zofran Odt] 4 mg PO Q8HR PRN #20 tab 08/10/21 diazePAM [Valium] 5 mg PO TID PRN #9 tab 08/10/21 lisinopriL [Zestril] 20 mg PO DAILY 30 Days #30 tab 08/10/21 Allergies Allergy/AdvReac Type Severity Reaction Status Date / Time amoxicillin [Amoxicillin] Allergy Severe Anaphylaxis, Verified 12/26/21 18:25 seizures ciprofloxacin [From Cipro] Allergy Severe Rash/Hives, Verified 12/26/21 18:25 seizures codeine phosphate Allergy Unknown Rash/Hives Verified 12/26/21 18:25 [From Tylenol-Codeine #3] bee venom protein (honey bee) Allergy Anaphylaxis Verified 12/26/21 18:25 cefuroxime axetil Allergy Rash/Hives Verified 12/26/21 18:25 [From Ceftin] ketorolac [From Toradol] Allergy Rash/Hives Verified 12/26/21 18:25 latex Allergy Rash/Hives Verified 12/26/21 18:25 NSAIDS (Non-Steroidal Allergy Rash/Hives/Lip Verified 12/26/21 18:25 Anti-Inflamma Swelling sulfamethoxazole Allergy Itching Verified 12/26/21 18:25 [From Bactrim] trimethoprim [From Bactrim] Allergy Itching Verified 12/26/21 18:25 Review of Systems ROS Statement: Those systems with pertinent positive or pertinent negative responses have been documented in the HPI. ROS Other: All systems not noted in ROS Statement are negative. Past Medical History Past Medical History: Asthma, Fibromyalgia, GERD/Reflux, Hypertension, Musculoskeletal Disorder, Neurologic Disorder, Pneumonia, Seizure Disorder Additional Past Medical History / Comment(s): Multiple Sclerosis, angina, migraines, DJD, interstitial cystitis, UTI, PCOS, vit D deficiency, bilateral optic neuritis with visual problems, generalized chronic pain, numbness/tingling bilateral lower legs, tachycardia, c-diff 5-9-16, seizures from MS last one around 2017. ADHD. 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 PCOS. History of Any Multi-Drug Resistant Organisms: C-DIFF Date of last positivie culture/infection: 2017 MDRO Source:: stool Past Surgical History: Cholecystectomy, Orthopedic Surgery Additional Past Surgical History / Comment(s): Lt shoulder rotator cuff repair 06/06/14, arthroscopic left knee 2000 & 2002, left shoulder reconstruction Past Anesthesia/Blood Transfusion Reactions: No Reported Reaction Additional Past Anesthesia/Blood Transfusion Reaction / Comment(s): Pt has never recieved blood. Past Psychological History: Anxiety, Bipolar, Depression Smoking Status: Former smoker, Vaper Past Alcohol Use History: None Reported Past Drug Use History: None Reported - Past Family History Mother Family Medical History: No Reported History Additional Family Medical History / Comment(s): mother is healthy. Maternal grandmother had uterine cancer. Maternal grandfather had bladder cancer. Father Family Medical History: Hypertension Additional Family Medical History / Comment(s): Paternal grandfather had an CA. General Exam Limitations: no limitations General appearance: alert, in no apparent distress Head exam: Present: atraumatic, normocephalic Eye exam: Present: normal appearance, PERRL ENT exam: Present: normal exam Neck exam: Present: normal inspection. Absent: tenderness, meningismus Respiratory exam: Present: normal lung sounds bilaterally. Absent: respiratory distress, wheezes Cardiovascular Exam: Present: regular rate, normal rhythm GI/Abdominal exam: Present: soft. Absent: distended, tenderness, guarding Extremities exam: Present: normal inspection, normal capillary refill Neurological exam: Present: alert, oriented X3, CN II-XII intact, motor sensory deficit (4/5 strength in the right upper extremity, drift.) Psychiatric exam: Present: normal affect, normal mood Skin exam: Present: warm, dry, intact. Absent: cyanosis, diaphoretic Course Vital Signs 12/26/21 18:18 Temperature 97.6 F Pulse Rate 99 Respiratory 20 Rate Blood Pressure 174/102 O2 Sat by Pulse 100 Oximetry EKG Findings - EKG Comments: EKG Findings:: Sinus tachycardia rate of 101, SC interval 143, QRS duration 73, QTC 366, no ST segment elevation. Medical Decision Making - Medical Decision Making 41-year-old female history of MS presenting with numbness on the right side of her body, right arm, right leg, and generalized pain. Patient does have slight drift in the right upper extremity. Her symptoms have been present for the past [address] is ordered. This is negative for acute intracranial hemorrhage or mass effect. She has a mild leukocytosis of uncertain etiology. Otherwise laboratory tests are unremarkable. She's started on high-dose IV steroids in the emergency department. She will be admitted for continuation of IV steroids and treatment of acute MS exacerbation. Case discussed with some physician group. - Lab Data Result diagrams: 12/26/21 19:04 12/26/21 19:04 Lab Results 12/26/21 12/26/21 12/26/21 Range/Units 19:04 19:04 19:04 WBC 15.7 H (3.8-10.6) k/uL RBC 4.70 (3.80-5.40) m/uL Hgb 13.6 (11.4-16.0) gm/dL Hct 42.5 (34.0-46.0) % MCV 90.3 (80.0-100.0) fL MCH 28.9 (25.0-35.0) pg MCHC 32.0 (31.0-37.0) g/dL RDW 12.5 (11.5-15.5) % Plt Count 377 (150-450) k/uL MPV 7.6 Neutrophils % 67 % Lymphocytes % 24 % Monocytes % 4 % Eosinophils % 3 % Basophils % 1 % Neutrophils # 10.4 H (1.3-7.7) k/uL Lymphocytes # 3.8 (1.0-4.8) k/uL Monocytes # 0.7 (0-1.0) k/uL Eosinophils # 0.5 (0-0.7) k/uL Basophils # 0.1 (0-0.2) k/uL PT 9.9 (9.0-12.0) sec INR 0.9 (<1.2) APTT 23.3 (22.0-30.0) sec Sodium 138 (137-145) mmol/L Potassium 3.9 (3.5-5.1) mmol/L Chloride 104 (98-107) mmol/L Carbon Dioxide 27 (22-30) mmol/L Anion Gap 7 mmol/L BUN 12 (7-17) mg/dL Creatinine 0.79 (0.52-1.04) mg/dL Est GFR (CKD-EPI)AfAm >90 (>60 ml/min/1.73 sqM) Est GFR (CKD-EPI)NonAf >90 (>60 ml/min/1.73 sqM) Glucose 103 H (74-99) mg/dL Calcium 9.2 (8.4-10.2) mg/dL Total Bilirubin 0.2 (0.2-1.3) mg/dL AST 22 (14-36) U/L ALT 15 (4-34) U/L Alkaline Phosphatase 57 (38-126) U/L Troponin I (0.000-0.034) ng/mL Total Protein 7.1 (6.3-8.2) g/dL Albumin 4.5 (3.5-5.0) g/dL 12/26/21 Range/Units 19:04 WBC (3.8-10.6) k/uL RBC (3.80-5.40) m/uL Hgb (11.4-16.0) gm/dL Hct (34.0-46.0) % MCV (80.0-100.0) fL MCH (25.0-35.0) pg MCHC (31.0-37.0) g/dL RDW (11.5-15.5) % Plt Count (150-450) k/uL MPV Neutrophils % % Lymphocytes % % Monocytes % % Eosinophils % % Basophils % % Neutrophils # (1.3-7.7) k/uL Lymphocytes # (1.0-4.8) k/uL Monocytes # (0-1.0) k/uL Eosinophils # (0-0.7) k/uL Basophils # (0-0.2) k/uL PT (9.0-12.0) sec INR (<1.2) APTT (22.0-30.0) sec Sodium (137-145) mmol/L Potassium (3.5-5.1) mmol/L Chloride (98-107) mmol/L Carbon Dioxide (22-30) mmol/L Anion Gap mmol/L BUN (7-17) mg/dL Creatinine (0.52-1.04) mg/dL Est GFR (CKD-EPI)AfAm (>60 ml/min/1.73 sqM) Est GFR (CKD-EPI)NonAf (>60 ml/min/1.73 sqM) Glucose (74-99) mg/dL Calcium (8.4-10.2) mg/dL Total Bilirubin (0.2-1.3) mg/dL AST (14-36) U/L ALT (4-34) U/L Alkaline Phosphatase (38-126) U/L Troponin I <0.012 (0.000-0.034) ng/mL Total Protein (6.3-8.2) g/dL Albumin (3.5-5.0) g/dL Disposition Clinical Impression: Chronic pain syndrome, Multiple sclerosis, relapsing-remitting Disposition: ADMITTED IP TO THIS [facility] Condition: Stable Is patient prescribed a controlled substance at d/c from ED?: No Referrals: None,Stated [Primary Care Provider] - 1-2 days Time of Disposition: 19:57
[2021-12-26 19:20] LABS: ALT 15 U/L (4-34); AST 22 U/L (14-36); African American GFR (CKD) >90 (>60 ml/min/1.73 sqM); Albumin 4.5 g/dL (3.5-5.0); Alkaline Phosphatase 57 U/L (38-126); Anion Gap 7 mmol/L; Blood Urea Nitrogen 12 mg/dL (7-17); Calcium 9.2 mg/dL (8.4-10.2); Carbon Dioxide 27 mmol/L (22-30); Chloride 104 mmol/L (98-107); Glucose 103 mg/dL (74-99); Non-African American GFR(CKD) >90 (>60 ml/min/1.73 sqM); Potassium 3.9 mmol/L (3.5-5.1); Sodium 138 mmol/L (137-145); Total Bilirubin 0.2 mg/dL (0.2-1.3); Total Protein 7.1 g/dL (6.3-8.2)
[2021-12-26 19:24] LABS: INR 0.9 (<1.2); Partial Thromboplastin Time 23.3 sec (22.0-30.0); Prothrombin Time 9.9 sec (9.0-12.0)
--- NOTE | 2021-12-26 19:29 | XR ---
EXAMINATION TYPE: XR chest 2V DATE OF EXAM: 12/26/2021 COMPARISON: 08/07/2021 HISTORY: Altered mental status TECHNIQUE: Frontal and lateral views of the chest are obtained. FINDINGS: There is mild bronchovascular crowding. No significant infiltrate, consolidation, pleural effusion, or pneumothorax seen. The cardiac silhouette size is within normal limits. The osseous s tructures are intact. IMPRESSION: No acute process.
--- NOTE | 2021-12-26 19:44 | CT ---
EXAMINATION TYPE: CT brain wo con DATE OF EXAM: 12/26/2021 COMPARISON: MR 08/09/2021 HISTORY: Neuro deficits, acute, hx MS CT DLP: 1129.4 mGycm. Automated Exposure Control for Dose Reduction was Utilized. TECHNIQUE: CT scan of the head is performed without contrast. FINDINGS: There is no acute intracranial hemorrhage, mass effect, or midline shift identified. The ventricles and sulci are within normal limits in size. Known white matter disease is better depicted on prior MRI. The globes are intact. The visualized sinuses demonstrate mild mucosal opacification o f the right maxillary sinus, otherwise clear. There is mild right occipital lobe encephalomalacia. IMPRESSION: No acute intracranial hemorrhage, mass effect, or midline shift is seen. Old right occipital lobe infarct.
[2021-12-26] MEDS ORDERED: ACETAMINOPHEN TAB 325 MG TAB PO PRN (19:54)
[2021-12-26] MEDS ORDERED: NALOXONE 0.4 MG/ML 1 ML VIAL IV PRN (19:54)
[2021-12-26 20:11] VITALS: RESP 18
[2021-12-26] MEDS ORDERED: HYDROmorphone 0.5 MG/0.5 ML SYRINGE IVP STA (20:55)
[2021-12-26] MEDS ORDERED: ALBUTEROL NEBULIZED 2.5 MG/3 ML INHALATION PRN (21:33)
[2021-12-26] MEDS ORDERED: IPRATROPIUM-ALBUTEROL 3 ML NEB INHALATION PRN (21:33)
[2021-12-26] MEDS ORDERED: HYDROmorphone 0.5 MG/0.5 ML SYRINGE IVP PRN (21:33)
[2021-12-26] MEDS ORDERED: HYDROmorphone 1 MG/ML 1 ML SYRINGE IVP PRN (22:06)
[2021-12-26] MEDS: oxyCODONE-APAP 10-325MG 1 EACH TAB PO PRN (23:03)
[2021-12-26] MEDS ORDERED: methylPREDNISolone SOD SUCCIN 1,000 MG in SODIUM CHLORIDE 0.9% 250 ML IVPB STA (23:35)
[2021-12-26] MEDS ORDERED: ZOLPIDEM 10 MG TAB PO PRN (23:36)
[2021-12-26] MEDS: ONDANSETRON 4 MG/2 ML VIAL IVP PRN (23:37)
[2021-12-26] MEDS: HYDROmorphone 1 MG/ML 1 ML SYRINGE IVP PRN (23:40)
--- NOTE | 2021-12-26 23:52 | P.HPIM ---
History of Present Illness H&P Date: 12/26/21 Chief Complaint: right sided weakness 41 year old female with MS she is coming in today complaining of an MS flare up, consisted with right eye blurred vision, right sided weakness and numbness which is typical of her MS flare up. she denies any fever or chills, chest pain, cough or trouble breathing , denies any URI. however she does report some lower abd discomfort , denies dysuria or hematuria . workup inthe ED unremarkable patient admitted for MS exacerbation Review of Systems Pertinent positives as noted in HPI. All other systems were reviewed and are negative Past Medical History Past Medical History: Asthma, Fibromyalgia, GERD/Reflux, Hypertension, Musculoskeletal Disorder, Neurologic Disorder, Pneumonia, Seizure Disorder Additional Past Medical History / Comment(s): Multiple Sclerosis, angina, migraines, DJD, interstitial cystitis, UTI, PCOS, vit D deficiency, bilateral optic neuritis with visual problems, generalized chronic pain, numbness/tingling bilateral lower legs, tachycardia, c-diff 5-9-16, seizures from MS last one around 2017. ADHD. 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 PCOS. History of Any Multi-Drug Resistant Organisms: C-DIFF Date of last positivie culture/infection: 2017 MDRO Source:: stool Past Surgical History: Cholecystectomy, Orthopedic Surgery Additional Past Surgical History / Comment(s): Lt shoulder rotator cuff repair 06/06/14, arthroscopic left knee 2000 & 2002, left shoulder reconstruction Past Anesthesia/Blood Transfusion Reactions: No Reported Reaction Additional Past Anesthesia/Blood Transfusion Reaction / Comment(s): Pt has never recieved blood. Past Psychological History: Anxiety, Bipolar, Depression Additional Psychological History / Comment(s): OCD Smoking Status: Former smoker, Vaper Past Alcohol Use History: None Reported Additional Past Alcohol Use History / Comment(s): STARTED SMOKING AGE 17 and quit in 2017 but is using vapor cigarette somedays. Patient denies any medical marijuana, marijuana, street drug use. She denies any alcohol use or abuse. Patient is and lives with her and one child. No recent travel. Patient is on disability. Past Drug Use History: None Reported Additional Drug Use History / Comment(s): Patient reports past history of cocaine, inhaling heroin (no IV use of heroin per patient), marijuana and pain pills not prescribed to patient. - Past Family History Mother Family Medical History: No Reported History Additional Family Medical History / Comment(s): mother is healthy. Maternal grandmother had uterine cancer. Maternal grandfather had bladder cancer. Father Family Medical History: Hypertension Additional Family Medical History / Comment(s): Paternal grandfather had an AL. Medications and Allergies Home Medications Medication Instructions Recorded Confirmed Type RX: Ipratropium/Albuterol Sulfate 2 puff INHALATION RT-BID PRN 12/09/13 12/26/21 History [Combivent Respimat Inhaler] RX: Albuterol Inhaler [Ventolin 2 puff INHALATION RT-QID PRN 03/04/20 12/26/21 History Hfa Inhaler] RX: Dextroamphetamine/Amphetamine 30 mg PO DAILY 10/01/20 12/26/21 History [Adderall] RX: oxyCODONE HCL/ACETAMINOPHEN 1 tab PO BID PRN 08/07/21 12/26/21 History [Percocet 10-325 mg] Ondansetron Odt [Zofran Odt] 4 mg PO Q8HR PRN #20 tab 08/10/21 12/26/21 Rx RX: lisinopriL [Zestril] 20 mg PO DAILY 30 Days #30 tab 08/10/21 12/26/21 Rx Allergies Allergy/AdvReac Type Severity Reaction Status Date / Time amoxicillin [Amoxicillin] Allergy Severe Anaphylaxis, Verified 12/26/21 20:12 seizures ciprofloxacin [From Cipro] Allergy Severe Rash/Hives, Verified 12/26/21 20:12 seizures codeine phosphate Allergy Unknown Rash/Hives Verified 12/26/21 20:12 [From Tylenol-Codeine #3] bee venom protein (honey bee) Allergy Anaphylaxis Verified 12/26/21 20:12 cefuroxime axetil Allergy Rash/Hives Verified 12/26/21 20:12 [From Ceftin] ketorolac [From Toradol] Allergy Rash/Hives Verified 12/26/21 20:12 latex Allergy Rash/Hives Verified 12/26/21 20:12 NSAIDS (Non-Steroidal Allergy Rash/Hives/Lip Verified 12/26/21 20:12 Anti-Inflamma Swelling sulfamethoxazole Allergy Itching Verified 12/26/21 20:12 [From Bactrim] trimethoprim [From Bactrim] Allergy Itching Verified 12/26/21 20:12 Physical Exam Vitals: Vital Signs Temp Pulse Resp BP Pulse Ox 12/26/21 20:08 74 18 120/82 98 12/26/21 18:18 97.6 F 99 20 174/102 100 Intake and Output 12/26/21 12/26/21 12/26/21 06:59 14:59 22:59 Other: Weight 99.79 kg Constitutional: No acute distress, conversant, pleasant Eyes: Anicteric sclerae, moist conjunctiva, Pupils equal round reactive to light ENMT: NC/AT Oropharynx clear, no erythema, or exudates Neck: Supple, FROM, no masses, or JVD No carotid bruits No thyromegaly Lungs: Clear to auscultation Clear to percussion Normal respiratory effort, no accessory muscle use Cardiovascular: Heart regular in rate and rhythm, No murmurs, gallops, or rubs No peripheral edema Abdominal: Soft Nontender, no guarding, rebound or rigidity Abdomen moving with respiration Normoactive bowel sounds No hepatomegaly, No splenomegaly No palpable mass No abdominal wall hernia noted Skin: Normal temperature, tone, texture, turgor No induration No subcutaneous nodules No rash, lesions No ulcers Extremities: No digital cyanosis No clubbing Pedal pulses intact and symmetrical Radial pulses intact and symmetrical No calf tenderness Psychiatric: Alert and oriented to person, place and time Appropriate affect fair judgement Neuro Muscles Strength 4/5 right upper and lower extremities , 5/5 left upper and lower extremities Sensation to light touch reportedly decreased over right side compared to left side. Cranial nerves II-XII grossly intact Lymphatics: no palpable cervical or supraclavicular , or inguinal lymph nodes Results CBC & Chem 7: 12/26/21 19:04 12/26/21 19:04 Labs: Abnormal Lab Results - Last 24 Hours (Table) 12/26/21 12/26/21 Range/Units 19:04 19:04 WBC 15.7 H (3.8-10.6) k/uL Neutrophils # 10.4 H (1.3-7.7) k/uL Glucose 103 H (74-99) mg/dL Thrombosis Risk Factor Assmnt - Choose All That Apply Any of the Below Risk Factors Present?: Yes Each Factor Represents 1 point: Obesity (BMI >25) Other Risk Factors: No Other congenital or acquired thrombophilia - If yes, enter type in comment: No Thrombosis Risk Factor Assessment Total Risk Factor Score: 1 Thrombosis Risk Factor Assessment Level: Low Risk Assessment and Plan Assessment: MS exacerbation neuro consult neuro check s fall precautions glucocorticoid 1 gm daily check UA chronic conditions chronic pain dilaudid PRN hypertension resume home meds preDM , insulin sliding scale full code Heparin sc tid for DVT PPX anticipated length of stay < 2 midnights
[2021-12-27 00:11] LABS: Appearance,Urine Clear (Clear); Bilirubin,Urine Negative (Negative); Blood,Urine Moderate (Negative); Color,Urine Yellow; Glucose,Urine (UA) Negative (Negative); Hyaline Casts,Urine 1 /lpf (0-2); Ketones,Urine Negative (Negative); Leukocyte Esterase,Urine Negative (Negative); Mucus,Urine Rare /hpf; Nitrite,Urine Negative (Negative); Protein,Urine Negative (Negative); RBC,Urine 3 /hpf (0-5); Specific Gravity,Urine 1.018 (1.001-1.035); Squamous Epithelial Cell,Urine 2 /hpf (0-4); Urobilinogen,Urine <2.0 mg/dL (<2.0); WBC,Urine 1 /hpf (0-5)
[2021-12-27] MEDS: HEPARIN SODIUM,PORCINE/PF 5,000 UNIT/0.5 ML SYRINGE SQ SCH ×2 (00:51→07:41)
[2021-12-27] MEDS: HYDROmorphone 1 MG/ML 1 ML SYRINGE IVP PRN ×3 (02:39→08:44)
[2021-12-27] MEDS: ONDANSETRON 4 MG/2 ML VIAL IVP PRN (05:39)
[2021-12-27] MEDS ORDERED: INSULIN ASPART (NovoLOG) 100 UNIT/ML VIAL SQ SCH (07:30)
[2021-12-27] MEDS: oxyCODONE-APAP 10-325MG 1 EACH TAB PO PRN (07:41)
[2021-12-27 07:43] LABS: Glucose,Whole Blood 214 mg/dL (75-99)
[2021-12-27 08:37] VITALS: BP 118/78; PULSE 60; TEMP 98.1
[2021-12-27] MEDS ORDERED: lisinopriL 20 MG TAB PO SCH (09:00)
--- NOTE | 2021-12-27 16:31 | P.PN ---
Subjective Progress Note Date: 12/27/21 Hospital course: Patient is a very pleasant 41-year-old female with a past medical history of multiple sclerosis, fibromyalgia, chronic pain disorder, neuritis with visual problems, neuropathy, seizure disorder, and hypertension. Patient presented to the emergency department with a chief complaint of generalized pain accompanied by numbness, tingling, and weakness of right arm and foot 24 hours as well as blurred vision of her right eye. These are reported as patient's "typical" MS flareup. Patient underwent full evaluation in the emergency department. She was found to have leukocytosis with WBC count of 15.7, otherwise labs are unremarkable. Urinalysis negative. CT head negative for acute intercranial process revealing an old right occipital lobe infarct. Chest x-ray negative for acute cardiopulmonary process. EKG showing sinus tachycardia at 101 bpm with no noted T-wave or ST abnormalities showing no signs of acute ischemia. Patient was admitted under our services with consultation to neurology. Physical exam: Patient seen and fully evaluated at bedside this morning. Upon entering room patient ambulatory in room carrying her tray did not display any signs of weakness. Upon assessment patient reports significant weakness to right upper and lower extremity, denies improvement since arrival to facility. Patient also reporting uncontrolled generalized pain rating 10 out of 10 stating current Dilaudid dose not controlling. Patient showing no signs of acute distress, respirations even regular and unlabored. Speech clear. No neurological deficits noted at this time. Awaiting neurology to evaluate and further recommendations. Vital signs reviewed and stable. General: Nontoxic, no distress and appears stated age. Derm: Skin warm and dry, normal coloration for ethnicity. Head: Atraumatic, normocephalic and symmetric. Eyes: EOMs intact, no lid lag, and anicteric sclera Mouth: no lip lesions, mucus membranes moist Cardiovascular: regular rate and rhythm with normal S1S2, no murmur, positive posterior tibial pulses bilaterally, and cap refill < 2 seconds. Lungs: Respirations even, regular, and unlabored on room air. Lungs CTA bilaterally, no rhonchi, no rales, no wheezing, and no accessory muscle usage. Abdominal: soft, nontender to palpation, no guarding, no appreciable organomegaly Ext: ROM intact. No gross muscle atrophy, no edema, no contractures Neuro: Speech clear, face symmetrical and CN II-XII grossly intact with no noted focal neuro deficits Psych: Alert and oriented to person, place, time, and situation. Appropriate and pleasant affect. Assessment and Plan of Care: MS exacerbation Fibromyalgia Chronic pain syndrome Neuritis with visual problems Neuropathy Seizure disorder Hypertension Pre-Diabetes -Patient was given a total of 1125 mg of methylprednisone at midnight and to receive 1000 mg a day for the next 3 days. -Neurology consulted, appreciate further orders -Neuro checks every 4 hours and as needed -Fall precautions -Symptomatic care and pain management. -Glycemic protocol with NovoLog sliding scale, patient receiving high-dose steroids. -Monitor vital signs and continue daily medication regimen. CODE STATUS: Full code DVT prophylaxis: SCDs Discussed with: Patient and RN Anticipated discharge date: Home Anticipated discharge place: Clinical course to determine A total of 31 minutes was spent on the care of this complex patient more than 50 % of the time was spent in counseling and care coordination. Objective - Vital Signs Vital signs: Vital Signs Temp 98.1 F 12/27/21 07:00 Pulse 59 L 12/27/21 07:35 Resp 18 12/27/21 07:00 BP 118/78 12/27/21 07:00 Pulse Ox 100 12/27/21 07:00 Intake & Output 12/26/21 12/27/21 12/27/21 18:59 06:59 18:59 Intake Total 1800 Balance 1800 Weight 99.79 kg 99.79 kg Intake: Intake, IV Titration 250 Amount methylPREDNISolone SOD 250 SUCCIN 1,000 mg In Sodium Chloride 0.9% 250 ml @ 250 mls/hr IVPB ONCE STA Rx#:[id number] Oral 1550 Other: Voiding Method Toilet - Labs CBC & Chem 7: 12/26/21 19:04 12/26/21 19:04 Labs: Abnormal Lab Results - Last 24 Hours (Table) 12/26/21 12/26/21 12/26/21 Range/Units 19:04 19:04 23:54 WBC 15.7 H (3.8-10.6) k/uL Neutrophils # 10.4 H (1.3-7.7) k/uL Glucose 103 H (74-99) mg/dL POC Glucose (mg/dL) (75-99) mg/dL Urine Blood Moderate H (Negative) Urine Mucus Rare H (None) /hpf 12/27/21 Range/Units 07:42 WBC (3.8-10.6) k/uL Neutrophils # (1.3-7.7) k/uL Glucose (74-99) mg/dL POC Glucose (mg/dL) 214 H (75-99) mg/dL Urine Blood (Negative) Urine Mucus (None) /hpf
--- NOTE | 2021-12-27 16:40 | P.DS ---
Providers Date of admission: 12/26/21 19:54 Expected date of discharge: 12/27/21 Attending physician: Dora Fitzpatrick MD Consults: 12/26/21 19:55 Consult Physician Routine Consulting Provider: Esther Mayo Consult Reason/Comments: MS Do you want consulting provider notified?: Yes Primary care physician: Stated None Hospital Course: THIS IS NOT A DISCHARGE SUMMARY, BUT A SUMMARY OF CARE PATIENT LEFT AGAINST MEDICAL ADVICE MS exacerbation Fibromyalgia Chronic pain syndrome Neuritis with visual problems Neuropathy Seizure disorder Hypertension Pre-Diabetes Hospital Course: Patient is a very pleasant 41-year-old female with a past medical history of multiple sclerosis, fibromyalgia, chronic pain disorder, neuritis with visual problems, neuropathy, seizure disorder, and hypertension. Patient presented to the emergency department with a chief complaint of generalized pain accompanied by numbness, tingling, and weakness of right arm and foot 24 hours as well as blurred vision of her right eye. These are reported as patient's "typical" MS flareup. Patient underwent full evaluation in the emergency department. She was found to have leukocytosis with WBC count of 15.7, otherwise labs are unremarkable. Urinalysis negative. CT head negative for acute intercranial process revealing an old right occipital lobe infarct. Chest x-ray negative for acute cardiopulmonary process. EKG showing sinus tachycardia at 101 bpm with no noted T-wave or ST abnormalities showing no signs of acute ischemia. Patient was admitted under our services with consultation to neurology. Patient received initial loading dose of methylprednisone and was to receive 1000 mg daily for the next 3 days. However patient was reportedly threatening RN that she was going to leave AMA because she was unhappy with her current pain medication regimen. RN discussed with patient that there was no need to leave AMA that provider would come up and discharge her and write prescription for steroids to ensure that she had her necessary medications for MS exacerbation. However patient refused to wait and left AGAINST MEDICAL ADVICE at this time prior to movie writer arriving to the floor. Per nursing staff patient was ambulatory down the [place]ados into elevators with a steady unassisted gait showing no noted deficits. Patient Condition at Discharge: Undetermined Plan - Discharge Summary Discharge Rx Participant: No New Discharge Prescriptions: Continue Ipratropium/Albuterol Sulfate [Combivent Respimat Inhaler] 2 puff INHALATION RT-BID PRN PRN Reason: Shortness Of Breath Albuterol Inhaler [Ventolin Hfa Inhaler] 2 puff INHALATION RT-QID PRN PRN Reason: Shortness Of Breath Dextroamphetamine/Amphetamine [Adderall] 30 mg PO DAILY Ondansetron Odt [Zofran ODT] 4 mg PO Q8HR PRN #20 tab PRN Reason: Nausea oxyCODONE HCL/ACETAMINOPHEN [Percocet 10-325 mg] 1 tab PO BID PRN PRN Reason: Pain lisinopriL [Zestril] 20 mg PO DAILY 30 Days #30 tab Discharge Medication List Ipratropium/Albuterol Sulfate [Combivent Respimat Inhaler] 2 puff INHALATION RT- BID PRN 12/09/13 [History] Albuterol Inhaler [Ventolin Hfa Inhaler] 2 puff INHALATION RT-QID PRN 03/04/20 [History] Dextroamphetamine/Amphetamine [Adderall] 30 mg PO DAILY 10/01/20 [History] oxyCODONE HCL/ACETAMINOPHEN [Percocet 10-325 mg] 1 tab PO BID PRN 08/07/21 [History] Ondansetron Odt [Zofran ODT] 4 mg PO Q8HR PRN #20 tab 08/10/21 [Rx] lisinopriL [Zestril] 20 mg PO DAILY 30 Days #30 tab 08/10/21 [Rx] Follow up Appointment(s)/Referral(s): None,Stated [Primary Care Provider] - 1-2 days Patient Instructions/Handouts: Multiple Sclerosis (DC) Discharge Disposition: Left Against Medical Advice
== END 2021-12-27 12:19 | disposition left against medical advice (07) ==
LOC: EC 18:13 → 6NMEDSUR 19:54
PROVIDERS: ADMIT Internal Medicine; ATTEND Internal Medicine
DX: G35 Multiple sclerosis (principal); M79.7 Fibromyalgia; G89.4 Chronic pain syndrome; M79.2 Neuralgia and neuritis, unspecified; G40.909 Epilepsy, unspecified, not intractable, without status epilepticus; I10 Essential (primary) hypertension; R00.0 Tachycardia, unspecified; R73.03 Prediabetes; Z53.29 Procedure and treatment not carried out because of patient's decision for other reasons; E55.9 Vitamin D deficiency, unspecified; J45.909 Unspecified asthma, uncomplicated; E66.9 Obesity, unspecified; Z68.35 Body mass index [BMI] 35.0-35.9, adult; K21.9 Gastro-esophageal reflux disease without esophagitis; M19.90 Unspecified osteoarthritis, unspecified site; N30.10 Interstitial cystitis (chronic) without hematuria; E28.2 Polycystic ovarian syndrome; F31.9 Bipolar disorder, unspecified; F41.9 Anxiety disorder, unspecified; F42.9 Obsessive-compulsive disorder, unspecified; F90.9 Attention-deficit hyperactivity disorder, unspecified type; Z79.899 Other long term (current) drug therapy; Z88.0 Allergy status to penicillin; Z88.1 Allergy status to other antibiotic agents; Z88.2 Allergy status to sulfonamides; Z88.5 Allergy status to narcotic agent; Z88.6 Allergy status to analgesic agent; Z90.49 Acquired absence of other specified parts of digestive tract; Z91.030 Bee allergy status; Z91.040 Latex allergy status; Z86.19 Personal history of other infectious and parasitic diseases; Z87.01 Personal history of pneumonia (recurrent); Z87.440 Personal history of urinary (tract) infections; Z87.891 Personal history of nicotine dependence; Z86.73 Personal history of transient ischemic attack (TIA), and cerebral infarction without residual deficits; Z86.69 Personal history of other diseases of the nervous system and sense organs; Z80.49 Family history of malignant neoplasm of other genital organs; Z80.52 Family history of malignant neoplasm of bladder; Z82.49 Family history of ischemic heart disease and other diseases of the circulatory system
CPT/HCPCS: 99285; 96376 ×3; 96361 ×2; 96375; 96365; 96372; 36415; 94640; 93005; 80053; 84484; 85025; 85610; 85730; 81001; 71046; 70450; G0378 ×2; J2930 ×2; J2405 ×2; J1170 ×3; J1644

== ENCOUNTER 2022-02-08 02:02 | Observation (INO) | payer MEDICARE, OTHER ==
[2022-02-08] MEDS ORDERED: MORPHINE SULFATE 4 MG/ML SYRINGE IV STA (02:17)
--- NOTE | 2022-02-08 02:17 | ED ---
Chest Pain HPI - General Chief Complaint: Chest Pain Stated Complaint: Chest pain Time Seen by Provider: 02/08/22 02:06 Source: patient, EMS, RN notes reviewed, old records reviewed Mode of arrival: EMS Limitations: no limitations - History of Present Illness Initial Comments: This is a 42-year-old female to the emergency department for evaluation. Esperanza chapin is presenting for evaluation regards to chest pain sudden onset of anterior chest pain with numbness until going down left arm left leg. No real shortness of breath. Patient just states she's never had similar pain before and is very concerned. No trauma no travel show sick contacts no cough or congestion no fevers. MD Complaint: chest pain -: hour(s) Onset: during rest Pain Location: left chest Pain Radiation: LUE Severity: moderate Severity scale (1-10): 4 Quality: tightness, aching Consistency: constant Improves With: nothing Worsens With: nothing Anginal Symptoms: dyspnea, sense of impending doom Other Symptoms: palpitations Treatments Prior to Arrival: none - Related Data Home Medications Medication Instructions Recorded Confirmed Ipratropium/Albuterol Sulfate 2 puff INHALATION RT-BID PRN 12/09/13 01/08/22 [Combivent Respimat Inhaler] Albuterol Inhaler [Ventolin Hfa 2 puff INHALATION RT-QID PRN 03/04/20 01/08/22 Inhaler] Dextroamphetamine/Amphetamine 30 mg PO DAILY 10/01/20 01/08/22 [Adderall] oxyCODONE HCL/ACETAMINOPHEN 1 tab PO BID PRN 08/07/21 01/08/22 [Percocet 10-325 mg] Previous Rx's Medication Instructions Recorded Ondansetron Odt [Zofran ODT] 4 mg PO Q8HR PRN #20 tab 08/10/21 lisinopriL [Zestril] 20 mg PO DAILY 30 Days #30 tab 08/10/21 Allergies Allergy/AdvReac Type Severity Reaction Status Date / Time amoxicillin [Amoxicillin] Allergy Severe Anaphylaxis, Verified 01/10/22 10:41 seizures ciprofloxacin [From Cipro] Allergy Severe Rash/Hives, Verified 01/10/22 10:41 seizures codeine phosphate Allergy Unknown Rash/Hives Verified 01/10/22 10:41 [From Tylenol-Codeine #3] bee venom protein (honey bee) Allergy Anaphylaxis Verified 01/10/22 10:41 cefuroxime axetil Allergy Rash/Hives Verified 01/10/22 10:41 [From Ceftin] ketorolac [From Toradol] Allergy Rash/Hives Verified 01/10/22 10:41 latex Allergy Rash/Hives Verified 01/10/22 10:41 NSAIDS (Non-Steroidal Allergy Rash/Hives/Lip Verified 01/10/22 10:41 Anti-Inflamma Swelling sulfamethoxazole Allergy Itching Verified 01/10/22 10:41 [From Bactrim] trimethoprim [From Bactrim] Allergy Itching Verified 01/10/22 10:41 Review of Systems ROS Statement: Those systems with pertinent positive or pertinent negative responses have been documented in the HPI. ROS Other: All systems not noted in ROS Statement are negative. EKG Findings - EKG Comments: EKG Findings:: EKG is sinus rhythm 81 SD 131 QRS 89 QTC 381 Past Medical History Past Medical History: Asthma, Fibromyalgia, GERD/Reflux, Hypertension, Musculoskeletal Disorder, Neurologic Disorder, Pneumonia, Seizure Disorder Additional Past Medical History / Comment(s): Multiple Sclerosis, angina, migraines, DJD, interstitial cystitis, UTI, PCOS, vit D deficiency, bilateral optic neuritis with visual problems, generalized chronic pain, numbness/tingling bilateral lower legs, tachycardia, c-diff 5-9-16, seizures from MS last one around 2016. ADHD. PAST [employer] HISTORY: She has no history of STDs. PCOS. History of Any Multi-Drug Resistant Organisms: C-DIFF Date of last positivie culture/infection: 2016 MDRO Source:: stool Past Surgical History: Cholecystectomy, Orthopedic Surgery Additional Past Surgical History / Comment(s): Lt shoulder rotator cuff repair 06/06/14, arthroscopic left knee 2000 & 2002, left shoulder reconstruction Past Anesthesia/Blood Transfusion Reactions: No Reported Reaction Additional Past Anesthesia/Blood Transfusion Reaction / Comment(s): Pt has never recieved blood. Past Psychological History: Anxiety, Bipolar, Depression Smoking Status: Current every day smoker, Vaper Past Alcohol Use History: None Reported Past Drug Use History: None Reported - Past Family History Mother Family Medical History: No Reported History Additional Family Medical History / Comment(s): mother is healthy. Maternal grandmother had uterine cancer. Maternal grandfather had bladder cancer. Father Family Medical History: Hypertension Additional Family Medical History / Comment(s): Paternal grandfather had an [place]. General Exam Limitations: no limitations General appearance: alert, in no apparent distress, anxious Head exam: Present: atraumatic, normocephalic, normal inspection Eye exam: Present: normal appearance, PERRL, EOMI. Absent: scleral icterus, conjunctival injection, periorbital swelling ENT exam: Present: normal exam, mucous membranes moist Neck exam: Present: normal inspection. Absent: tenderness, meningismus, lymphadenopathy Respiratory exam: Present: normal lung sounds bilaterally. Absent: respiratory distress, wheezes, rales, rhonchi, stridor Cardiovascular Exam: Present: regular rate, normal rhythm, normal heart sounds. Absent: systolic murmur, diastolic murmur, rubs, gallop, clicks GI/Abdominal exam: Present: soft, normal bowel sounds. Absent: distended, tenderness, guarding, rebound, rigid Extremities exam: Present: normal inspection, full ROM, normal capillary refill. Absent: tenderness, pedal edema, joint swelling, calf tenderness Back exam: Present: normal inspection Neurological exam: Present: alert, oriented X3, CN II-XII intact Psychiatric exam: Present: normal affect, normal mood Skin exam: Present: warm, dry, intact, normal color. Absent: rash Course Vital Signs 02/08/22 02/08/22 02:04 03:38 Temperature 97.6 F Pulse Rate 85 81 Respiratory 16 16 Rate Blood Pressure 142/108 153/88 O2 Sat by Pulse 99 Oximetry - Reevaluation(s) Reevaluation #1: 02/08/22 02:51 Medical records reviewed Disposition Clinical Impression: Chest pain, Multiple sclerosis, Intractable pain, Multiple sclerosis exacerbation Disposition: ADMITTED IP TO THIS [facility] Condition: Good Is patient prescribed a controlled substance at d/c from ED?: No Referrals: Soto Mukherjee MD [Primary Care Provider] - 1-2 days
[2022-02-08] MEDS ORDERED: ONDANSETRON 4 MG/2 ML VIAL IVP STA (02:39)
[2022-02-08 02:59] LABS: Basophils # (A) 0.1 k/uL (0-0.2); Basophils % (A) 1 %; Eosinophils # (A) 0.3 k/uL (0-0.7); Eosinophils % (A) 1 %; HCT 39.3 % (34.0-46.0); HGB 12.9 gm/dL (11.4-16.0); Lymphocytes # (A) 4.9 k/uL (1.0-4.8); Lymphocytes % (A) 23 %; MCH 29.8 pg (25.0-35.0); MCHC 32.9 g/dL (31.0-37.0); MCV 90.7 fL (80.0-100.0); Mean Platelet Volume 7.8; Monocytes # (A) 1.1 k/uL (0-1.0); Monocytes % (A) 5 %; Neutrophils # (A) 14.8 k/uL (1.3-7.7); Neutrophils % (A) 69 %; Platelet Count 340 k/uL (150-450); RBC 4.34 m/uL (3.80-5.40); RDW 13.6 % (11.5-15.5); WBC 21.4 k/uL (3.8-10.6)
[2022-02-08 03:11] LABS: ALT 18 U/L (4-34); AST 19 U/L (14-36); African American GFR (CKD) >90 (>60 ml/min/1.73 sqM); Albumin 4.3 g/dL (3.5-5.0); Alkaline Phosphatase 46 U/L (38-126); Anion Gap 9 mmol/L; Blood Urea Nitrogen 12 mg/dL (7-17); Calcium 9.3 mg/dL (8.4-10.2); Carbon Dioxide 24 mmol/L (22-30); Chloride 103 mmol/L (98-107); Glucose 94 mg/dL (74-99); Lipase 60 U/L (23-300); Magnesium 1.9 mg/dL (1.6-2.3); Non-African American GFR(CKD) >90 (>60 ml/min/1.73 sqM); Potassium 3.9 mmol/L (3.5-5.1); Sodium 136 mmol/L (137-145); Total Bilirubin 0.6 mg/dL (0.2-1.3); Total Protein 6.4 g/dL (6.3-8.2)
[2022-02-08 03:12] LABS: INR 0.9 (<1.2); Partial Thromboplastin Time 22.2 sec (22.0-30.0); Prothrombin Time 10.2 sec (9.0-12.0)
[2022-02-08] MEDS ORDERED: HYDROmorphone 1 MG/ML 1 ML SYRINGE IVP STA (03:20)
[2022-02-08] MEDS ORDERED: LORazepam 0.5 MG TAB PO PRN (04:29)
[2022-02-08] MEDS ORDERED: NALOXONE 0.4 MG/ML 1 ML VIAL IV PRN (04:29)
[2022-02-08] MEDS ORDERED: methylPREDNISolone SOD SUCCIN 500 MG in SODIUM CHLORIDE 0.9% 100 ML IVPB STA (04:31)
[2022-02-08] MEDS: SODIUM CHLORIDE 0.9% 1,000 ML IV SCH (04:56)
--- NOTE | 2022-02-08 05:05 | XR ---
EXAM: XR Chest, 1 View CLINICAL HISTORY: ITS.REASON XR Reason: chest pain TECHNIQUE: Frontal view of the chest. COMPARISON: No relevant prior studies available. FINDINGS: Lungs: No consolidation or mass. Pleural space: No acute findings Heart: No cardiomegaly. Bones/joints: No acute findings. IMPRESSION: No acute cardiopulmonary process.
[2022-02-08] MEDS: HYDROmorphone 1 MG/ML 1 ML SYRINGE IVP PRN ×5 (06:42→21:22)
[2022-02-08] MEDS ORDERED: HYDROcodone/APAP 10-325MG 1 EACH TAB PO PRN (08:01)
[2022-02-08] MEDS ORDERED: ALBUTEROL NEBULIZED 2.5 MG/3 ML INHALATION PRN (08:01)
[2022-02-08] MEDS ORDERED: IPRATROPIUM-ALBUTEROL 3 ML NEB INHALATION PRN (08:01)
[2022-02-08] MEDS ORDERED: ONDANSETRON ODT 4 MG TAB PO PRN (08:01)
[2022-02-08] MEDS ORDERED: oxyCODONE-APAP 10-325MG 1 EACH TAB PO PRN (08:01)
[2022-02-08] MEDS: lisinopriL 20 MG TAB PO SCH (08:58)
--- NOTE | 2022-02-08 10:54 | P.HPIM ---
History of Present Illness H&P Date: 02/08/22 Chief Complaint: Chest pain 42-year-old woman with medical history of multiple sclerosis, hypertension, fibromyalgia, asthma presented for evaluation of chest pain. Patient says that her pain started while she was at work yesterday night. The patient in nature with radiation to her back and down her arm. She says that certain positions make her pain worse. It is not particularly associated with exertion or by mouth intake. She does not describe any nausea, vomiting, chills, diaphoresis, shakes in association with the pain. She further denies fevers, palpitations, cough, dyspnea, abdominal pain, constipation, diarrhea, syncope, presyncope, dysuria, dyschezia, numbness/weakness of extremity is. Upon my evaluation, patient is afebrile, 126/79, heart rate 93, 96% on room air. CBC demonstrates leukocytosis to 21.4, otherwise unremarkable. Chemistries unremarkable. Initial troponin was less than 0.012, trended negative after 3 checks. BNP was 15. Lipase was 60. Coags are unremarkable. EKG shows normal sinus rhythm without ischemic changes. Chest x-ray is negative for acute cardiopulmonary process. All Systems reviewed and pertinent positives and negatives noted in HPI, all other symptoms are negative Gen: in no apparent distress, resting comfortably in bed Eyes: PERRL, no scleral injection or icterus HENT: normocephalic, atraumatic, good hearing acuity, moist mucous membranes Neck: no tracheal deviation, full range of motion Resp: good air exchange, breathing comfortably with no accessory muscle use, no tactile fremitus, clear to auscultation bilaterally CVS: good distal perfusion x 4, no pitting edema, regular rate and rhythm GI: soft, no tenderness to palpation, periumbilical area, ND, no hepatosplenomegaly : no suprapubic tenderness, no CVAT, gomez catheter not present MSK: no clubbing, no cyanosis, no noted contractures of extremities Skin: no noted rashes, petechiae; temperature of skin is appropriate Neuro: moving all extremities without signs of weakness, CN II-XII intact Psych: cooperative, euthymic mood, insight and judgment intact Labs and imaging reviewed as above Assessment/plan: Chest pain, atypical History of multiple sclerosis -Admit to observation, telemetry -Patient started on steroids by the emergency room -Neurology consult to rule out MS flare -Pain control, bowel regimen -Trend troponins -Echocardiogram -A1c, lipid panel, TSH Hypertension Fibromyalgia Asthma without acute exacerbation -Home medications reviewed and reconciled Patient is full code DVT prophylaxis with heparin 3 times a day Past Medical History Past Medical History: Asthma, Fibromyalgia, GERD/Reflux, Hypertension, Musculoskeletal Disorder, Neurologic Disorder, Pneumonia, Seizure Disorder Additional Past Medical History / Comment(s): Multiple Sclerosis, angina, migraines, DJD, interstitial cystitis, UTI, PCOS, vit D deficiency, bilateral optic neuritis with visual problems, generalized chronic pain, numbness/tingling bilateral lower legs, tachycardia, c-diff 5-9-16, seizures from MS last one around 2017. ADHD. PAST [employer] HISTORY: She has no history of STDs. PCOS. History of Any Multi-Drug Resistant Organisms: C-DIFF Date of last positivie culture/infection: 2016 MDRO Source:: stool Past Surgical History: Cholecystectomy, Orthopedic Surgery Additional Past Surgical History / Comment(s): Lt shoulder rotator cuff repair 06/06/14, arthroscopic left knee 2000 & 2002, left shoulder reconstruction Past Anesthesia/Blood Transfusion Reactions: No Reported Reaction Additional Past Anesthesia/Blood Transfusion Reaction / Comment(s): Pt has never recieved blood. Past Psychological History: Anxiety, Bipolar, Depression Additional Psychological History / Comment(s): OCD Smoking Status: Current every day smoker Past Alcohol Use History: None Reported Additional Past Alcohol Use History / Comment(s): STARTED SMOKING AGE 17 and quit in 2017 but is using vapor cigarette somedays. Patient denies any medical marijuana, marijuana, street drug use. She denies any alcohol use or abuse. Patient is and lives with her and one child. No recent travel. Patient is on disability. Past Drug Use History: None Reported Additional Drug Use History / Comment(s): Patient reports past history of cocaine, inhaling heroin (no IV use of heroin per patient), marijuana and pain pills not prescribed to patient. - Past Family History Mother Family Medical History: No Reported History Additional Family Medical History / Comment(s): mother is healthy. Maternal grandmother had uterine cancer. Maternal grandfather had bladder cancer. Father Family Medical History: Hypertension Additional Family Medical History / Comment(s): Paternal grandfather had an [place]. Medications and Allergies Home Medications Medication Instructions Recorded Confirmed Type Ipratropium/Albuterol Sulfate 2 puff INHALATION RT-BID PRN 12/09/13 02/08/22 History [Combivent Respimat Inhaler] Albuterol Inhaler [Ventolin Hfa 2 puff INHALATION RT-QID PRN 03/04/20 02/08/22 History Inhaler] Dextroamphetamine/Amphetamine 30 mg PO DAILY 10/01/20 02/08/22 History [Adderall] oxyCODONE HCL/ACETAMINOPHEN 1 tab PO BID PRN 08/07/21 02/08/22 History [Percocet 10-325 mg] Ondansetron Odt [Zofran ODT] 4 mg PO Q8HR PRN #20 tab 08/10/21 02/08/22 Rx lisinopriL [Zestril] 20 mg PO DAILY 30 Days #30 tab 08/10/21 02/08/22 Rx Butalb/Acetaminophen/Caffeine 1 tab PO TID PRN 02/08/22 02/08/22 History [Psxben-Eehubhue-Mynm 50-325-40] HYDROcodone/APAP 10-325MG [[place] 1 tab PO BID PRN 02/08/22 02/08/22 History 10-325] Topiramate See Taper PO HS 02/08/22 02/08/22 History Allergies Allergy/AdvReac Type Severity Reaction Status Date / Time amoxicillin [Amoxicillin] Allergy Severe Anaphylaxis, Verified 02/08/22 07:22 seizures ciprofloxacin [From Cipro] Allergy Severe Rash/Hives, Verified 02/08/22 07:22 seizures codeine phosphate Allergy Unknown Rash/Hives Verified 02/08/22 07:22 [From Tylenol-Codeine #3] bee venom protein (honey bee) Allergy Anaphylaxis Verified 02/08/22 07:22 cefuroxime axetil Allergy Rash/Hives Verified 02/08/22 07:22 [From Ceftin] ketorolac [From Toradol] Allergy Rash/Hives Verified 02/08/22 07:22 latex Allergy Rash/Hives Verified 02/08/22 07:22 NSAIDS (Non-Steroidal Allergy Rash/Hives/Lip Verified 02/08/22 07:22 Anti-Inflamma Swelling sulfamethoxazole Allergy Itching Verified 02/08/22 07:22 [From Bactrim] trimethoprim [From Bactrim] Allergy Itching Verified 02/08/22 07:22 Physical Exam Osteopathic Statement: *. No significant issues noted on an osteopathic stru ctural exam other than those noted in the History and Physical/Consult. Vitals: Vital Signs Temp Pulse Pulse Resp BP BP Pulse Ox 02/08/22 09:52 98.2 F 93 20 126/79 96 02/08/22 08:45 93 20 02/08/22 07:00 98.1 F 93 18 130/85 94 L 02/08/22 05:00 72 16 138/83 96 02/08/22 03:38 81 16 153/88 02/08/22 02:04 97.6 F 85 16 142/108 99 Intake and Output 02/07/22 02/08/22 02/08/22 22:59 06:59 14:59 Other: Voiding Method Toilet Weight 116 kg Results CBC & Chem 7: 02/08/22 02:10 02/08/22 02:10 Labs: Abnormal Lab Results - Last 24 Hours (Table) 02/08/22 02/08/22 Range/Units 02:10 02:10 WBC 21.4 H (3.8-10.6) k/uL Neutrophils # 14.8 H (1.3-7.7) k/uL Lymphocytes # 4.9 H (1.0-4.8) k/uL Monocytes # 1.1 H (0-1.0) k/uL Sodium 136 L (137-145) mmol/L Thrombosis Risk Factor Assmnt - Choose All That Apply Each Factor Represents 1 point: Age 41-60 years Other Risk Factors: No Thrombosis Risk Factor Assessment Total Risk Factor Score: 1 Thrombosis Risk Factor Assessment Level: Low Risk
[2022-02-08] MEDS: methylPREDNISolone SOD SUCCIN 500 MG in SODIUM CHLORIDE 0.9% 100 ML IVPB SCH ×2 (11:40→16:12)
[2022-02-08] MEDS: ONDANSETRON 4 MG/2 ML VIAL IVP PRN (13:15)
[2022-02-08] MEDS: BUTALB/APAP/CAFF 50-325-40MG TAB PO PRN (15:37)
[2022-02-09] MEDS: methylPREDNISolone SOD SUCCIN 500 MG in SODIUM CHLORIDE 0.9% 100 ML IVPB SCH (00:25)
[2022-02-09] MEDS: HYDROmorphone 1 MG/ML 1 ML SYRINGE IVP PRN ×3 (00:25→08:12)
[2022-02-09] MEDS: ONDANSETRON 4 MG/2 ML VIAL IVP PRN ×2 (00:31→08:53)
--- NOTE | 2022-02-09 02:51 | P.CNNES ---
History of Present Illness Consult date: 02/08/22 Requesting physician: Shaun Sousa Reason for Consult: MS flare History of Present Illness: Patient is a 42-year-old female well known to our neurology service for recurrent admissions for MS flareup. Patient came to the hospital by ambulance early this morning today at 2:02 AM for chest pain. Patient complains of sharp chest pain retrosternal, extending to the back and left shoulder blade. Also extends to the jaw. Patient states that she has been tested for cardiac enzymes and EKG both are fine. Neurology was consulted to rule out MS exacerbation. Patient states that on Father's Day she had a horrible headache. She points to the right occipital region that extends to the right cheondoism to the top of head. She felt tightening in the right side of her head like needles going in. Patient is currently following up with pain management and she is scheduled for occipital nerve block on 02/14/2022. She has history of occipital neuralgia, but has been in remission since 2014. Patient is also noticing some cracking and popping sensation, like Rice Krispies in the right ear. Sometimes she notices blurred vision in the right eye. Patient follows up with Dr. Olivares, and states is planning to start Keysempta. She is very concerned to try Mavenclad. She denies any symptoms related to the extremities. Patient states that she has received cocktail for headache including some steroids, and the pain is a little better. She also uses hot packs EKG shows sinus rhythm, normal ECG. Chest x-ray showed no acute cardio pulmonary process. Blood tests shows elevated WBC 21.4 hemoglobin 1.9, normal platelets. PT/PTT normal, sodium 136 rest of the CMP is normal, troponin negative. Patient's blood test shows elevated WBC 21.4, normal hemoglobin and platelets. PT/PTT and Chem-20 are normal. Troponin is negative. Patient previously used to be on Tecfidera. Patient was noticing gastric side effects. She was thinking about switching to Mavenclad, but she is very concerned about its potential side effects. She has previously tried numerous medications including Avonex, Copaxone, Gilenya and had a bad side effects from Ocrevus including hives, shortness of breath, trouble breathing and lip swelling. Patient's last JCV titers were positive at 3.68 on 08/31/2018. She has not been taking any disease modifying agents since June 2021. Review of Systems Chest pain. All other 14 point review systems are reviewed and unremarkable. She does have fatigue. No fever or chills. Past Medical History Past Medical History: Asthma, Fibromyalgia, GERD/Reflux, Hypertension, Musculoskeletal Disorder, Neurologic Disorder, Pneumonia, Seizure Disorder Additional Past Medical History / Comment(s): Multiple Sclerosis, angina, migraines, DJD, interstitial cystitis, UTI, PCOS, vit D deficiency, bilateral optic neuritis with visual problems, generalized chronic pain, numbness/tingling bilateral lower legs, tachycardia, c-diff 5-9-16, seizures from MS last one around 2017. ADHD. 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 PCOS. History of Any Multi-Drug Resistant Organisms: C-DIFF Date of last positivie culture/infection: 2016 MDRO Source:: stool Past Surgical History: Cholecystectomy, Orthopedic Surgery Additional Past Surgical History / Comment(s): Lt shoulder rotator cuff repair 06/06/14, arthroscopic left knee 2000 & 2002, left shoulder reconstruction Past Anesthesia/Blood Transfusion Reactions: No Reported Reaction Additional Past Anesthesia/Blood Transfusion Reaction / Comment(s): Pt has never recieved blood. Past Psychological History: Anxiety, Bipolar, Depression Additional Psychological History / Comment(s): OCD Smoking Status: Current every day smoker Past Alcohol Use History: None Reported Additional Past Alcohol Use History / Comment(s): STARTED SMOKING AGE 17 and quit in 2017 but is using vapor cigarette somedays. Patient denies any medical marijuana, marijuana, street drug use. She denies any alcohol use or abuse. Patient is and lives with her and one child. No recent travel. Patient is on disability. Past Drug Use History: None Reported Additional Drug Use History / Comment(s): Patient reports past history of cocaine, inhaling heroin (no IV use of heroin per patient), marijuana and pain pills not prescribed to patient. - Past Family History Mother Family Medical History: No Reported History Additional Family Medical History / Comment(s): mother is healthy. Maternal grandmother had uterine cancer. Maternal grandfather had bladder cancer. Father Family Medical History: Hypertension Additional Family Medical History / Comment(s): Paternal grandfather had an CO. Medications and Allergies Home Medications Medication Instructions Recorded Confirmed Type Ipratropium/Albuterol Sulfate 2 puff INHALATION RT-BID PRN 12/09/13 02/08/22 History [Combivent Respimat Inhaler] Albuterol Inhaler [Ventolin Hfa 2 puff INHALATION RT-QID PRN 03/04/20 02/08/22 History Inhaler] Dextroamphetamine/Amphetamine 30 mg PO DAILY 10/01/20 02/08/22 History [Adderall] oxyCODONE HCL/ACETAMINOPHEN 1 tab PO BID PRN 08/07/21 02/08/22 History [Percocet 10-325 mg] Ondansetron Odt [Zofran ODT] 4 mg PO Q8HR PRN #20 tab 08/10/21 02/08/22 Rx lisinopriL [Zestril] 20 mg PO DAILY 30 Days #30 tab 08/10/21 02/08/22 Rx Butalb/Acetaminophen/Caffeine 1 tab PO TID PRN 02/08/22 02/08/22 History [Qvicna-Fawbzeoy-Aqxs 50-325-40] HYDROcodone/APAP 10-325MG [[place] 1 tab PO BID PRN 02/08/22 02/08/22 History 10-325] Topiramate See Taper PO HS 02/08/22 02/08/22 History Allergies Allergy/AdvReac Type Severity Reaction Status Date / Time amoxicillin [Amoxicillin] Allergy Severe Anaphylaxis, Verified 02/08/22 07:22 seizures ciprofloxacin [From Cipro] Allergy Severe Rash/Hives, Verified 02/08/22 07:22 seizures codeine phosphate Allergy Unknown Rash/Hives Verified 02/08/22 07:22 [From Tylenol-Codeine #3] bee venom protein (honey bee) Allergy Anaphylaxis Verified 02/08/22 07:22 cefuroxime axetil Allergy Rash/Hives Verified 02/08/22 07:22 [From Ceftin] ketorolac [From Toradol] Allergy Rash/Hives Verified 02/08/22 07:22 latex Allergy Rash/Hives Verified 02/08/22 07:22 NSAIDS (Non-Steroidal Allergy Rash/Hives/Lip Verified 02/08/22 07:22 Anti-Inflamma Swelling sulfamethoxazole Allergy Itching Verified 02/08/22 07:22 [From Bactrim] trimethoprim [From Bactrim] Allergy Itching Verified 02/08/22 07:22 Physical Examination - Vital Signs Vital Signs: Vital Signs Temp Pulse Pulse Resp BP BP Pulse Ox 02/08/22 14:10 93 20 02/08/22 09:52 98.2 F 93 20 126/79 96 02/08/22 08:45 93 20 02/08/22 07:00 98.1 F 93 18 130/85 94 L 02/08/22 05:00 72 16 138/83 96 02/08/22 03:38 81 16 153/88 02/08/22 02:04 97.6 F 85 16 142/108 99 Intake and Output 02/08/22 02/08/22 02/08/22 06:59 14:59 22:59 Intake Total 478 Balance 478 Intake: Oral 478 Other: Voiding Method Toilet # Voids 2 Weight 116 kg Patient is a middle aged female, in no acute distress. Patient is alert awake oriented to time place and person. Speech and language functions are normal. Attention, concentration and fund of knowledge is adequate. On cranial examination, pupils are round and reacting to light, visual pacheco are full on confrontation, extraocular muscles are intact with no nystagmus. Face is symmetric, tongue protrudes to the midline. Palatal elevation and sensation normal, hearing and shoulder shrug normal, facial sensation normal. Shoulder shrug normal. On muscle strength testing, there is no pronator drift and the strength is normal in arms and legs distally and proximally. Deep tendon reflexes are significantly hypoactive and plantars are downgoing bilaterally. Sensory to touch is equal with no neglect, except left hand which has slightly decreased sensation as compared to the right hand. Her left ankle dorsiflexion has some atypical weakness, as when it was tested, it appears patient was activating plantarflexion as well. Cerebellar function showed no ataxia for [id number] testing. Tone and bulk of muscles normal. Gait deferred. On general examination, there is no carotid bruit or murmur, S1-S2 audible. Abdomen is soft nontender. No organomegaly, bowel sounds present. Chest is clear. Peripheral pulses are present. No edema. Results - Laboratory Findings CBC and BMP: 02/08/22 02:10 02/08/22 02:10 Abnormal Lab Findings: Abnormal Labs 02/08/22 02/08/22 02:10 02:10 WBC 21.4 H Neutrophils # 14.8 H Lymphocytes # 4.9 H Monocytes # 1.1 H Sodium 136 L Assessment and Plan Assessment: * Relapsing remitting multiple sclerosis. * At present there is no clear-cut evidence of MS exacerbation. Her examination is nonfocal. * Right occipital neuralgia * History of recurrent UTIs * Obesity * X tobacco use. Plan: * Neurologically, I do not see any clearcut evidence of MS exacerbation. No indication for repeating MRI of the brain at this time. She can have repeat surveillance MRI of the brain performed as an outpatient. * Patient has right occipital neuralgia. She is scheduled for occipital nerve block on 02/14/2022. * It appears patient has been started on Solu-Medrol 500 mg every 6 hours. I will change it to every 12 hours, and only for 2 days. * For chest pain, would defer to IM. * Neurologically clear for discharge in a.m. Dr. Gilles Drake will be available for any neurological concerns from the morning. * Thank you for the consult.
[2022-02-09] MEDS: SODIUM CHLORIDE 0.9% 1,000 ML IV SCH (05:39)
[2022-02-09 07:44] VITALS: BP 136/81; PULSE 81; RESP 16; TEMP 97.8
[2022-02-09] MEDS: lisinopriL 20 MG TAB PO SCH (08:11)
[2022-02-09] MEDS: BUTALB/APAP/CAFF 50-325-40MG TAB PO PRN (08:53)
[2022-02-09] MEDS ORDERED: methylPREDNISolone SOD SUCCIN 500 MG in SODIUM CHLORIDE 0.9% 100 ML IVPB SCH (11:00)
--- NOTE | 2022-02-09 14:37 | P.DS ---
Providers Date of admission: 02/08/22 04:30 Expected date of discharge: 02/09/22 Attending physician: Dora Fitzpatrick MD Consults: 02/08/22 10:41 Consult Physician Routine Consulting Provider: Esther Mayo Consult Reason/Comments: MS flare Do you want consulting provider notified?: Yes Primary care physician: Soto Mukherjee MD Hospital Course: Chest pain, atypical History of multiple sclerosis Hypertension Fibromyalgia Asthma without acute exacerbation 42-year-old woman with medical history of multiple sclerosis, hypertension, fibromyalgia, asthma presented for evaluation of chest pain. Upon my evaluation, patient is afebrile, 126/79, heart rate 93, 96% on room air. CBC demonstrates leukocytosis to 21.4, otherwise unremarkable. Chemistries unre markable. Initial troponin was less than 0.012, trended negative after 3 checks. BNP was 15. Lipase was 60. Coags are unremarkable. EKG shows normal sinus rhythm without ischemic changes. Chest x-ray is negative for acute cardiopulmonary process. Patient left AMA prior to my evaluation today. Gen: in no apparent distress, resting comfortably in bed Eyes: PERRL, no scleral injection or icterus HENT: normocephalic, atraumatic, good hearing acuity, moist mucous membranes Neck: no tracheal deviation, full range of motion Resp: good air exchange, breathing comfortably with no accessory muscle use, no tactile fremitus, clear to auscultation bilaterally CVS: good distal perfusion x 4, no pitting edema, regular rate and rhythm GI: soft, no tenderness to palpation, periumbilical area, ND, no hepatosplenomegaly : no suprapubic tenderness, no CVAT, gomez catheter not present MSK: no clubbing, no cyanosis, no noted contractures of extremities Skin: no noted rashes, petechiae; temperature of skin is appropriate Neuro: moving all extremities without signs of weakness, CN II-XII intact Psych: cooperative, euthymic mood, insight and judgment intact Patient Condition at Discharge: Good Plan - Discharge Summary New Discharge Prescriptions: No Action Ipratropium/Albuterol Sulfate [Combivent Respimat Inhaler] 2 puff INHALATION RT-BID PRN PRN Reason: Shortness Of Breath Albuterol Inhaler [Ventolin Hfa Inhaler] 2 puff INHALATION RT-QID PRN PRN Reason: Shortness Of Breath Dextroamphetamine/Amphetamine [Adderall] 30 mg PO DAILY Ondansetron Odt [Zofran ODT] 4 mg PO Q8HR PRN #20 tab PRN Reason: Nausea Butalb/Acetaminophen/Caffeine [Uggeky-Ymkubtkz-Caiy 50-325-40] 1 tab PO TID PRN PRN Reason: Headache oxyCODONE HCL/ACETAMINOPHEN [Percocet 10-325 mg] 1 tab PO BID PRN PRN Reason: Pain lisinopriL [Zestril] 20 mg PO DAILY 30 Days #30 tab HYDROcodone/APAP 10-325MG [[place] 10-325] 1 tab PO BID PRN PRN Reason: Pain Topiramate See Taper PO HS Discharge Medication List Ipratropium/Albuterol Sulfate [Combivent Respimat Inhaler] 2 puff INHALATION RT- BID PRN 12/09/13 [History] Albuterol Inhaler [Ventolin Hfa Inhaler] 2 puff INHALATION RT-QID PRN 03/04/20 [History] Dextroamphetamine/Amphetamine [Adderall] 30 mg PO DAILY 10/01/20 [History] oxyCODONE HCL/ACETAMINOPHEN [Percocet 10-325 mg] 1 tab PO BID PRN 08/07/21 [History] Ondansetron Odt [Zofran ODT] 4 mg PO Q8HR PRN #20 tab 08/10/21 [Rx] lisinopriL [Zestril] 20 mg PO DAILY 30 Days #30 tab 08/10/21 [Rx] Butalb/Acetaminophen/Caffeine [Dlopup-Nfwqqwcf-Hmui 50-325-40] 1 tab PO TID PRN 02/08/22 [History] HYDROcodone/APAP 10-325MG [[place] 10-325] 1 tab PO BID PRN 02/08/22 [History] Topiramate See Taper PO HS 02/08/22 [History] Follow up Appointment(s)/Referral(s): Soto Mukherjee MD [Primary Care Provider] - 1-2 days Discharge Disposition: Left Against Medical Advice
== END 2022-02-09 11:28 | disposition left against medical advice (07) ==
LOC: EC 02:02 → 6NMEDSUR 04:30
PROVIDERS: ADMIT Internal Medicine; ATTEND Internal Medicine
DX: R07.9 Chest pain, unspecified (principal)
CPT/HCPCS: 96376 ×3; 96366 ×3; 96365; 96375; 99285; 36415; 93005; 83880; 80053; 83690; 83735; 84484; 85025; 85610; 85730; 71045; G0378 ×2; J2270; J2405 ×2; J2930 ×2; J1170 ×2

== ENCOUNTER 2022-05-28 15:29 | Emergency (ER) | payer MEDICARE, OTHER ==
[2022-05-28 15:37] VITALS: BP 141/99; PULSE 92; RESP 18
[2022-05-28] MEDS ORDERED: ONDANSETRON 4 MG/2 ML VIAL IVP STA (15:50)
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
[2022-05-28 16:39] LABS: Basophils # (A) 0.1 k/uL (0-0.2); Basophils % (A) 1 %; Eosinophils # (A) 0.6 k/uL (0-0.7); Eosinophils % (A) 4 %; HCT 42.5 % (34.0-46.0); HGB 14.6 gm/dL (11.4-16.0); Lymphocytes # (A) 3.8 k/uL (1.0-4.8); Lymphocytes % (A) 26 %; MCH 30.9 pg (25.0-35.0); MCHC 34.5 g/dL (31.0-37.0); MCV 89.6 fL (80.0-100.0); Monocytes # (A) 0.7 k/uL (0-1.0); Monocytes % (A) 5 %; Neutrophils # (A) 9.3 k/uL (1.3-7.7); Neutrophils % (A) 63 %; Platelet Count 376 k/uL (150-450); RBC 4.74 m/uL (3.80-5.40); RDW 12.8 % (11.5-15.5); WBC 14.7 k/uL (3.8-10.6)
[2022-05-28] MEDS ORDERED: HYDROmorphone 0.5 MG/0.5 ML SYRINGE IVP STA ×3 (16:39→19:36)
[2022-05-28 16:48] LABS: ALT 22 U/L (4-34); AST 22 U/L (14-36); African American GFR (CKD) >90 (>60 ml/min/1.73 sqM); Albumin 4.6 g/dL (3.5-5.0); Alkaline Phosphatase 54 U/L (38-126); Anion Gap 12 mmol/L; Blood Urea Nitrogen 16 mg/dL (7-17); Calcium 9.7 mg/dL (8.4-10.2); Carbon Dioxide 26 mmol/L (22-30); Chloride 100 mmol/L (98-107); Glucose 88 mg/dL (74-99); Non-African American GFR(CKD) >90 (>60 ml/min/1.73 sqM); Potassium 4.1 mmol/L (3.5-5.1); Sodium 138 mmol/L (137-145); Total Bilirubin 0.2 mg/dL (0.2-1.3)
[2022-05-28 16:52] LABS: INR 0.9 (<1.2); Prothrombin Time 10.1 sec (9.0-12.0)
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
== END 2022-05-28 20:06 | disposition home or self-care (01) ==
LOC: EC 15:29
DX: R07.89 Other chest pain (principal); J45.909 Unspecified asthma, uncomplicated; K21.9 Gastro-esophageal reflux disease without esophagitis; I10 Essential (primary) hypertension; F41.9 Anxiety disorder, unspecified; F31.9 Bipolar disorder, unspecified; Z87.891 Personal history of nicotine dependence; Z88.0 Allergy status to penicillin; Z88.1 Allergy status to other antibiotic agents; Z88.5 Allergy status to narcotic agent; Z91.030 Bee allergy status; Z91.040 Latex allergy status; Z88.2 Allergy status to sulfonamides; Z79.51 Long term (current) use of inhaled steroids; Z79.899 Other long term (current) drug therapy; V49.40XA Driver injured in collision with unspecified motor vehicles in traffic accident, initial encounter
CPT/HCPCS: 36415; 80053; 85025; 85610; 85730; 71046; 72125; 70450; 99285; 96374; 96375; 96376 ×2; J2405; J1170

== ENCOUNTER 2022-11-30 18:12 | Inpatient (IN) | payer MEDICARE, OTHER ==
[2022-11-30] MEDS ORDERED: methylPREDNISolone SOD SUCCIN 250 MG in SODIUM CHLORIDE 0.9% 100 ML IVPB STA (18:32)
[2022-11-30] MEDS ORDERED: HYDROmorphone 0.5 MG/0.5 ML SYRINGE IVP STA (18:32)
[2022-11-30] MEDS ORDERED: ONDANSETRON 4 MG/2 ML VIAL IVP STA (18:32)
[2022-11-30] MEDS ORDERED: SODIUM CHLORIDE 0.9% 500 ML 500 ML IV ONE (18:33)
[2022-11-30] MEDS: SODIUM CHLORIDE 0.9% 1,000 ML IV SCH (18:52)
[2022-11-30 19:04] LABS: Basophils % (A) 0 %; Eosinophils # (A) 0.4 k/uL (0-0.7); Eosinophils % (A) 3 %; Lymphocytes # (A) 2.9 k/uL (1.0-4.8); Lymphocytes % (A) 18 %; MCH 29.6 pg (25.0-35.0); MCHC 33.4 g/dL (31.0-37.0); MCV 88.5 fL (80.0-100.0); Mean Platelet Volume 7.8; Monocytes # (A) 0.3 k/uL (0-1.0); Monocytes % (A) 2 %; Neutrophils % (A) 76 %; Platelet Count 387 k/uL (150-450); RBC 4.41 m/uL (3.80-5.40); RDW 12.8 % (11.5-15.5); WBC 15.8 k/uL (3.8-10.6)
--- NOTE | 2022-11-30 19:06 | ED ---
General Adult HPI - General Chief complaint: Weakness Stated complaint: MS Flare up Time Seen by Provider: 11/30/22 18:20 Source: patient, RN notes reviewed, old records reviewed Mode of arrival: ambulatory Limitations: no limitations - History of Present Illness Initial comments: 42-year-old female history of MS presenting for evaluation of right leg and right arm numbness or weakness. Patient states she's also had some double visions. Patient states this is typical of her MS flare. She also complains of associated pain which is also typical. She's had some nausea without vomiting. No fever. - Related Data Home Medications Medication Instructions Recorded Confirmed Ipratropium/Albuterol Sulfate 2 puff INHALATION RT-BID PRN 12/09/13 04/01/22 [Combivent Respimat Inhaler] Albuterol Inhaler [Ventolin Hfa 2 puff INHALATION RT-QID PRN 03/04/20 04/01/22 Inhaler] Dextroamphetamine/Amphetamine 30 mg PO DAILY 10/01/20 04/01/22 [Adderall] oxyCODONE HCL/ACETAMINOPHEN 1 tab PO BID PRN 08/07/21 04/01/22 [Percocet 10-325 mg] Butalb/Acetaminophen/Caffeine 1 tab PO TID PRN 02/08/22 04/01/22 [Fioricet 50-325-40] Diroximel Fumarate [Vumerity] 231 mg PO BID 04/01/22 04/01/22 HYDROcodone/APAP 7.5-325MG [[place] 1 tab PO BID PRN 04/01/22 04/01/22 7.5-325] Previous Rx's Medication Instructions Recorded Ondansetron Odt [Zofran ODT] 4 mg PO Q8HR PRN #20 tab 08/10/21 lisinopriL [Zestril] 20 mg PO DAILY 30 Days #30 tab 08/10/21 Allergies Allergy/AdvReac Type Severity Reaction Status Date / Time amoxicillin [Amoxicillin] Allergy Severe Anaphylaxis, Verified 11/30/22 19:15 seizures ciprofloxacin [From Cipro] Allergy Severe Rash/Hives, Verified 11/30/22 19:15 seizures codeine phosphate Allergy Unknown Rash/Hives Verified 11/30/22 19:15 [From Tylenol-Codeine #3] bee venom protein (honey bee) Allergy Anaphylaxis Verified 11/30/22 19:15 cefuroxime axetil Allergy Rash/Hives Verified 11/30/22 19:15 [From Ceftin] ketorolac [From Toradol] Allergy Rash/Hives Verified 11/30/22 19:15 latex Allergy Rash/Hives Verified 11/30/22 19:15 NSAIDS (Non-Steroidal Allergy Rash/Hives/Lip Verified 11/30/22 19:15 Anti-Inflamma Swelling sulfamethoxazole Allergy Itching Verified 11/30/22 19:15 [From Bactrim] trimethoprim [From Bactrim] Allergy Itching Verified 11/30/22 19:15 Review of Systems ROS Statement: Those systems with pertinent positive or pertinent negative responses have been documented in the HPI. ROS Other: All systems not noted in ROS Statement are negative. Past Medical History Past Medical History: Asthma, Fibromyalgia, GERD/Reflux, Hypertension, Musculoskeletal Disorder, Neurologic Disorder, Pneumonia, Seizure Disorder Additional Past Medical History / Comment(s): Multiple Sclerosis, angina, migraines, DJD, interstitial cystitis, UTI, PCOS, vit D deficiency, bilateral optic neuritis with visual problems, generalized chronic pain, numbness/tingling bilateral lower legs, tachycardia, c-diff 5-9-16, seizures from MS last one around 2016. ADHD. 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 PCOS. MS History of Any Multi-Drug Resistant Organisms: C-DIFF Date of last positivie culture/infection: 2016 MDRO Source:: stool Past Surgical History: Cholecystectomy, Orthopedic Surgery Additional Past Surgical History / Comment(s): Lt shoulder rotator cuff repair 06/06/14, arthroscopic left knee 2000 & 2002, left shoulder reconstruction Past Anesthesia/Blood Transfusion Reactions: No Reported Reaction Additional Past Anesthesia/Blood Transfusion Reaction / Comment(s): Pt has never recieved blood. Past Psychological History: Anxiety, Bipolar, Depression Smoking Status: Former smoker Past Alcohol Use History: Rare Past Drug Use History: None Reported - Past Family History Mother Family Medical History: No Reported History Additional Family Medical History / Comment(s): mother is healthy. Maternal grandmother had uterine cancer. Maternal grandfather had bladder cancer. Father Family Medical History: Hypertension Additional Family Medical History / Comment(s): Paternal grandfather had an NV. General Exam Limitations: no limitations General appearance: alert, in no apparent distress Head exam: Present: atraumatic, normocephalic Eye exam: Present: normal appearance, PERRL ENT exam: Present: normal exam Neck exam: Present: normal inspection. Absent: tenderness, meningismus Respiratory exam: Present: normal lung sounds bilaterally. Absent: respiratory distress, wheezes Cardiovascular Exam: Present: regular rate, normal rhythm GI/Abdominal exam: Present: soft. Absent: distended, tenderness, guarding Extremities exam: Present: normal inspection, normal capillary refill Neurological exam: Present: alert, oriented X3 Psychiatric exam: Present: normal affect, normal mood Skin exam: Present: warm, dry, intact Course Vital Signs 11/30/22 11/30/22 18:15 18:37 Temperature 97.9 F Pulse Rate 75 84 Respiratory 16 18 Rate Blood Pressure 193/85 189/113 O2 Sat by Pulse 100 98 Oximetry Medical Decision Making - Medical Decision Making Was pt. sent in by a medical professional or institution (, PA, [employer]SING, urgent care, hospital, or skilled nursing...) When possible be specific @ -No Did you speak to anyone other than the patient for history (EMS, parent, family, police, friend...)? What history was obtained from this source @ -No Did you review nursing and triage notes (agree or disagree)? Why? @ -I reviewed and agree with nursing and triage notes Were old charts reviewed (outside hosp., previous admission, EMS record, old EKG, old radiological studies, urgent care reports/EKG's, skilled nursing records)? Report findings @ -. Previous imaging and previous admission notes. Differential Diagnosis (chest pain, altered mental status, abdominal pain women, abdominal pain men, vaginal bleeding, weakness, fever, dyspnea, syncope, headache, dizziness, GI bleed, back pain, seizure, CVA, palpatations, mental health, musculoskeletal)? @ -Differential Weakness: Hypoglycemia, shock, sepsis, hyponatremia, anemia, infection, NV, ETOH, adverse medicine reaction, overdose, stroke, MS this is not meant to be an all-inclusive list. EKG interpreted by me (3pts min.). @ -As above X-rays interpreted by me (1pt min.). @ -None done CT interpreted by me (1pt min.). @ -None done U/S interpreted by me (1pt. min.). @ -None done What testing was considered but not performed or refused? (CT, X-rays, U/S, labs)? Why? @ -None What meds were considered but not given or refused? Why? @ -None Did you discuss the management of the patient with other professionals (professionals i.e. , PA, [employer], lab, RT, psych nurse, foster care social worker, garage door service technician, teacher, radio division officer, keycase assembler)? Give summary @ -Case discussed with the admitting physician Was smoking cessation discussed for >3mins.? @ -No Was critical care preformed (if so, how long)? @ -No Were there social determinants of health that impacted care today? How? (Homelessness, low income, unemployed, alcoholism, drug addiction, transportation, low edu. Level, literacy, decrease access to med. care, long-term, rehab)? @ -No Was there de-escalation of care discussed even if they declined (Discuss DNR or withdrawal of care, Hospice)? DNR status @ -No What co-morbidities impacted this encounter? (DM, HTN, Smoking, COPD, CAD, Cancer, CVA, ARF, Chemo, Hep., AIDS, mental health diagnosis, sleep apnea, morbid obesity)? @ -[Hypertension, MS Was patient admitted / discharged? Hospital course, mention meds given and route, prescriptions, significant lab abnormalities, going to OR and other pertinent info. @ -6-year-old female presenting with symptoms consistent with prior MS exacerba tion. Placed on high-dose IV steroids. Patient will be admitted for continued treatment. Neurology placed on consult. Undiagnosed new problem with uncertain prognosis? @ -No Drug Therapy requiring intensive monitoring for toxicity (Heparin, Nitro, Insulin, Cardizem)? @ -No Were any procedures done? @ -No Diagnosis/symptom? @ -[MS exacerbation Acute, or Chronic, or Acute on Chronic? @ -[Acute on chronic Uncomplicated (without systemic symptoms) or Complicated (systemic symptoms)? @ -[Complicated Side effects of treatment? @ -No Exacerbation, Progression, or Severe Exacerbation? @ -[Severe exacerbation Poses a threat to life or bodily function? How? (Chest pain, USA, NV, pneumonia, PE, COPD, DKA, ARF, appy, cholecystitis, CVA, Diverticulitis, Homicidal, Suicidal, threat to staff... and all critical care pts) @ -No - Lab Data Result diagrams: 11/30/22 18:46 11/30/22 18:46 Lab Results 11/30/22 11/30/22 Range/Units 18:46 18:46 WBC 15.8 H (3.8-10.6) k/uL RBC 4.41 (3.80-5.40) m/uL Hgb 13.0 (11.4-16.0) gm/dL Hct 39.0 (34.0-46.0) % MCV 88.5 (80.0-100.0) fL MCH 29.6 (25.0-35.0) pg MCHC 33.4 (31.0-37.0) g/dL RDW 12.8 (11.5-15.5) % Plt Count 387 (150-450) k/uL MPV 7.8 Neutrophils % 76 % Lymphocytes % 18 % Monocytes % 2 % Eosinophils % 3 % Basophils % 0 % Neutrophils # 12.0 H (1.3-7.7) k/uL Lymphocytes # 2.9 (1.0-4.8) k/uL Monocytes # 0.3 (0-1.0) k/uL Eosinophils # 0.4 (0-0.7) k/uL Basophils # 0.0 (0-0.2) k/uL Sodium 137 (137-145) mmol/L Potassium 3.9 (3.5-5.1) mmol/L Chloride 104 (98-107) mmol/L Carbon Dioxide 23 (22-30) mmol/L Anion Gap 10 mmol/L BUN 13 (7-17) mg/dL Creatinine 0.74 (0.52-1.04) mg/dL Est GFR (CKD-EPI)AfAm >90 (>60 ml/min/1.73 sqM) Est GFR (CKD-EPI)NonAf >90 (>60 ml/min/1.73 sqM) Glucose 106 H (74-99) mg/dL Calcium 9.6 (8.4-10.2) mg/dL Total Bilirubin 0.2 (0.2-1.3) mg/dL AST 20 (14-36) U/L ALT 18 (4-34) U/L Alkaline Phosphatase 54 (38-126) U/L Total Protein 7.0 (6.3-8.2) g/dL Albumin 4.3 (3.5-5.0) g/dL Disposition Clinical Impression: Intractable pain, Multiple sclerosis Disposition: ADMITTED IP TO THIS [facility] Condition: Stable Is patient prescribed a controlled substance at d/c from ED?: No Referrals: Soto Mukherjee MD [Primary Care Provider] - 1-2 days Time of Disposition: 19:22
[2022-11-30 19:08] LABS: ALT 18 U/L (4-34); AST 20 U/L (14-36); African American GFR (CKD) >90 (>60 ml/min/1.73 sqM); Albumin 4.3 g/dL (3.5-5.0); Alkaline Phosphatase 54 U/L (38-126); Anion Gap 10 mmol/L; Blood Urea Nitrogen 13 mg/dL (7-17); Calcium 9.6 mg/dL (8.4-10.2); Carbon Dioxide 23 mmol/L (22-30); Chloride 104 mmol/L (98-107); Glucose 106 mg/dL (74-99); Non-African American GFR(CKD) >90 (>60 ml/min/1.73 sqM); Potassium 3.9 mmol/L (3.5-5.1); Sodium 137 mmol/L (137-145); Total Bilirubin 0.2 mg/dL (0.2-1.3)
[2022-11-30] MEDS ORDERED: HYDROmorphone 0.5 MG/0.5 ML SYRINGE IVP PRN (19:13)
[2022-11-30] MEDS ORDERED: NALOXONE 0.4 MG/ML 1 ML VIAL IV PRN (19:13)
[2022-11-30] MEDS ORDERED: ACETAMINOPHEN TAB 325 MG TAB PO PRN (19:13)
[2022-11-30] MEDS ORDERED: SUMAtriptan succinate 50 MG TAB PO PRN (20:57)
[2022-11-30] MEDS ORDERED: ALBUTEROL NEBULIZED 2.5 MG/3 ML INHALATION PRN (20:57)
[2022-11-30] MEDS ORDERED: HYDROmorphone 1 MG/ML 1 ML SYRINGE IM PRN (20:58)
[2022-11-30] MEDS: HYDROmorphone 1 MG/ML 1 ML SYRINGE IVP PRN (21:32)
[2022-11-30] MEDS: oxyCODONE-APAP 10-325MG 1 EACH TAB PO PRN (23:34)
[2022-11-30] MEDS: methylPREDNISolone SOD SUCCIN 250 MG in SODIUM CHLORIDE 0.9% 100 ML IVPB SCH (23:34)
[2022-11-30] MEDS: diazePAM 5 MG TAB PO PRN (23:35)
[2022-12-01] MEDS: ONDANSETRON 4 MG/2 ML VIAL IVP PRN ×3 (01:29→17:54)
[2022-12-01] MEDS: HYDROmorphone 1 MG/ML 1 ML SYRINGE IVP PRN ×6 (01:30→21:34)
[2022-12-01] MEDS: methylPREDNISolone SOD SUCCIN 250 MG in SODIUM CHLORIDE 0.9% 100 ML IVPB SCH (05:50)
[2022-12-01] MEDS: PANTOPRAZOLE 40 MG/10 ML VIAL IVP SCH ×2 (07:55→19:37)
[2022-12-01] MEDS: oxyCODONE-APAP 10-325MG 1 EACH TAB PO PRN ×3 (07:56→23:40)
[2022-12-01] MEDS: lisinopriL 20 MG TAB PO SCH (07:56)
--- NOTE | 2022-12-01 09:10 | P.HPIM ---
History of Present Illness This is a pleasant 42 years old female with past medical history of migraine, seizure disorder, fibromyalgia, GERD, hypertension, multiple sclerosis, interstitial cystitis, anxiety and depression Patient presents with right leg weakness and numbness and blurred vision tabs 2 days Patient states that she started feeling weak and not well with increasing pain over the last week, she says she has history of multiple sclerosis and over the last 2 days she started having right foot drop with numbness in her right foot, right hand associated with right eye blurred vision, these are symptoms similar to her previous flareup of multiple sclerosis as she had previous foot drop. Also she complains from some headache. She denies chest pain dyspnea, no GI or urinary symptoms. No dizziness. No slurred speech Patient denies smoking, alcohol or illicit drugs She takes Valium for muscle spasm and she states. Also she says increasing pain especially in the upper part of her body, her pain is generalized. She denies fever. She is concerned about her blood pressure is high I offered to do test but she declines stating she's not sexually active, risks and benefits are explained Vitals are stable She has mild leukocytosis of 15.8, rest of CBC, BMP and liver enzymes are unremarkable. Review of Systems Review of systems CONSTITUTIONAL: No fever, no malaise, no fatigue. HEENT: No recent visual problems or hearing problems. Denied any sore throat. CARDIOVASCULAR: No orthopnea, PND, no palpitations, no syncope. PULMONARY: No shortness of breath, no cough, no hemoptysis. GASTROINTESTINAL: No diarrhea, no nausea, no vomiting, no abdominal pain. Normoactive bowel sounds. NEUROLOGICAL: No headaches, no weakness, no numbness. HEMATOLOGICAL: Denies any bleeding or petechiae. GENITOURINARY: Denies any burning micturition, frequency, or urgency. MUSCULOSKELETAL/RHEUMATOLOGICAL: Denies any joint pain, swelling, or any muscle pain. ENDOCRINE: Denies any polyuria or polydipsia. Past Medical History Past Medical History: Asthma, Fibromyalgia, GERD/Reflux, Hypertension, Musculoskeletal Disorder, Neurologic Disorder, Pneumonia, Seizure Disorder Additional Past Medical History / Comment(s): Multiple Sclerosis, angina, migraines, DJD, interstitial cystitis, UTI, PCOS, vit D deficiency, bilateral optic neuritis with visual problems, generalized chronic pain, numbness/tingling bilateral lower legs, tachycardia, c-diff 5-9-16, seizures from MS last one around 2017. ADHD. 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 PCOS. MS History of Any Multi-Drug Resistant Organisms: C-DIFF Date of last positivie culture/infection: 2017 MDRO Source:: stool Past Surgical History: Cholecystectomy, Orthopedic Surgery Additional Past Surgical History / Comment(s): Lt shoulder rotator cuff repair 06/06/14, arthroscopic left knee 2000 & 2002, left shoulder reconstruction Past Anesthesia/Blood Transfusion Reactions: No Reported Reaction Additional Past Anesthesia/Blood Transfusion Reaction / Comment(s): Pt has never recieved blood. Past Psychological History: Anxiety, Bipolar, Depression Additional Psychological History / Comment(s): OCD Smoking Status: Never smoker Past Alcohol Use History: Rare Additional Past Alcohol Use History / Comment(s): STARTED SMOKING AGE 17 and quit in 2017 but is using vapor cigarette somedays. Patient denies any medical marijuana, marijuana, street drug use. She denies any alcohol use or abuse. Patient is and lives with her and one child. No recent travel. Patient is on disability. Past Drug Use History: None Reported Additional Drug Use History / Comment(s): Patient reports past history of cocaine, inhaling heroin (no IV use of heroin per patient), marijuana and pain pills not prescribed to patient. - Past Family History Mother Family Medical History: No Reported History Additional Family Medical History / Comment(s): mother is healthy. Maternal grandmother had uterine cancer. Maternal grandfather had bladder cancer. Father Family Medical History: Hypertension Additional Family Medical History / Comment(s): Paternal grandfather had an MD. Medications and Allergies Home Medications Medication Instructions Recorded Confirmed Type Ipratropium/Albuterol Sulfate 2 puff INHALATION RT-BID 12/09/13 11/30/22 History [Combivent Respimat Inhaler] Albuterol Inhaler [Ventolin Hfa 2 puff INHALATION RT-QID PRN 03/04/20 11/30/22 History Inhaler] Dextroamphetamine/Amphetamine 30 mg PO DAILY PRN 10/01/20 11/30/22 History [Adderall] oxyCODONE HCL/ACETAMINOPHEN 1 tab PO TID PRN 08/07/21 11/30/22 History [Percocet 10-325 mg] Ondansetron Odt [Zofran ODT] 4 mg PO Q8HR PRN #20 tab 08/10/21 11/30/22 Rx lisinopriL [Zestril] 20 mg PO DAILY 30 Days #30 tab 08/10/21 11/30/22 Rx SUMAtriptan succinate 100 mg PO BID PRN 11/30/22 11/30/22 History diazePAM 10 mg PO DAILY PRN 11/30/22 11/30/22 History Allergies Allergy/AdvReac Type Severity Reaction Status Date / Time amoxicillin [Amoxicillin] Allergy Severe Anaphylaxis, Verified 11/30/22 19:15 seizures ciprofloxacin [From Cipro] Allergy Severe Rash/Hives, Verified 11/30/22 19:15 seizures codeine phosphate Allergy Unknown Rash/Hives Verified 11/30/22 19:15 [From Tylenol-Codeine #3] bee venom protein (honey bee) Allergy Anaphylaxis Verified 11/30/22 19:15 cefuroxime axetil Allergy Rash/Hives Verified 11/30/22 19:15 [From Ceftin] ketorolac [From Toradol] Allergy Rash/Hives Verified 11/30/22 19:15 latex Allergy Rash/Hives Verified 11/30/22 19:15 NSAIDS (Non-Steroidal Allergy Rash/Hives/Lip Verified 11/30/22 19:15 Anti-Inflamma Swelling sulfamethoxazole Allergy Itching Verified 11/30/22 19:15 [From Bactrim] trimethoprim [From Bactrim] Allergy Itching Verified 11/30/22 19:15 Physical Exam Vitals: Vital Signs Temp Pulse Pulse Resp BP BP Pulse Ox 12/01/22 07:46 98.2 F 83 16 145/93 92 L 12/01/22 01:52 97.9 F 76 16 148/85 96 11/30/22 20:00 98.6 F 62 18 122/75 97 11/30/22 19:33 18 124/84 11/30/22 18:37 84 18 189/113 98 11/30/22 18:15 97.9 F 75 16 193/85 100 Intake and Output 11/30/22 12/01/22 12/01/22 22:59 06:59 14:59 Other: # Voids 1 Weight 90.718 kg GENERAL: The patient is alert and oriented x3, not in any acute distress. Well developed, well nourished. Obesity HEENT: Pupils are round and equally reacting to light. EOMI. No scleral icterus. No conjunctival pallor. Normocephalic, atraumatic. No pharyngeal erythema. No thyromegaly. CARDIOVASCULAR: S1 and S2 present. No murmurs, rubs, or gallops. PULMONARY: Chest is clear to auscultation, no wheezing or crackles. ABDOMEN: Soft, nontender, nondistended, normoactive bowel sounds. No palpable organomegaly. MUSCULOSKELETAL: No joint swelling or deformity. EXTREMITIES: No cyanosis, clubbing, or pedal edema. -NEUROLOGICAL: Her cranial nerves are grossly intact. Right foot drop. Mildly decreased sensation on the right foot and right hand. SKIN: No rashes. no petechiae. Results CBC & Chem 7: 11/30/22 18:46 11/30/22 18:46 Labs: Abnormal Lab Results - Last 24 Hours (Table) 11/30/22 11/30/22 Range/Units 18:46 18:46 WBC 15.8 H (3.8-10.6) k/uL Neutrophils # 12.0 H (1.3-7.7) k/uL Glucose 106 H (74-99) mg/dL Assessment and Plan Assessment: Acute multiple sclerosis exacerbation Hypertension, mildly uncontrolled. Mild leukocytosis with no evidence of infection, also patient on steroids which might contribute to leukocytosis History of migraine History of seizure History of GERD Hypertension History of anxiety and depression History of substance abuse Obesity with BMI of 52.3 Plan: Continue with IV Solu-Medrol 1000 mg daily 3 days Neurology consult Check urine analysis Norvasc 5 mg daily continue with muscle relaxants Labs and medication were reviewed.. Continue same treatment. Continue with symptomatic treatment. Resume home medication. Monitor labs and vitals. DVT and GI prophylaxis. Further recommendations as per clinical course of the patient DVT prophylaxis: Subcutaneous heparin GI Prophylaxis: Pepcid Prognosis is guarded
[2022-12-01] MEDS ORDERED: methylPREDNISolone SOD SUCCIN 500 MG in SODIUM CHLORIDE 0.9% 100 ML IVPB STA (09:11)
[2022-12-01] MEDS: amLODIPine 5 MG TAB PO SCH (10:03)
[2022-12-01] MEDS: IPRATROPIUM-ALBUTEROL 3 ML NEB INHALATION SCH ×2 (11:05→20:20)
[2022-12-01 13:10] LABS: Appearance,Urine Clear (Clear); Bilirubin,Urine Negative (Negative); Blood,Urine Large (Negative); Color,Urine Yellow; Glucose,Urine (UA) 4+ (Negative); Ketones,Urine 1+ (Negative); Leukocyte Esterase,Urine Negative (Negative); Mucus,Urine Rare /hpf; Nitrite,Urine Negative (Negative); PH, Urine 5.5 (5.0-8.0); Protein,Urine Trace (Negative); RBC,Urine 9 /hpf (0-5); Specific Gravity,Urine 1.026 (1.001-1.035); Squamous Epithelial Cell,Urine 3 /hpf (0-4); Urobilinogen,Urine <2.0 mg/dL (<2.0); WBC,Urine 10 /hpf (0-5)
[2022-12-01 17:00] LABS: Glucose,Whole Blood 216 mg/dL (70-110)
[2022-12-01] MEDS: SODIUM CHLORIDE 0.9% 1,000 ML IV SCH ×2 (17:11→17:54)
[2022-12-01] MEDS ORDERED: DEXTROSE 50% SYRINGE 50 ML IVP PRN ×2 (17:42)
--- NOTE | 2022-12-01 18:24 | P.CNNES ---
History of Present Illness Consult date: 12/01/22 Requesting physician: Cheo Louise Reason for Consult: MS exacerbation History of Present Illness: This is a telemedicine neurology consultation performed today on 12/01/2022. Patient is a 42-year-old female well known to neurology service from previous multiple admissions to the hospital, who has history of MS, chronic pain, came to the hospital yesterday at 6:12 PM for possible MS exacerbation. Patient sta katie that she is in a lot of pain all over the body particularly in the upper body. She is complaining of blurred vision in the right eye, sometimes blurring in the left side as well. She has not lost vision. Patient is complaining of numbness of the right hand in glove distribution, and the foot from toes up to just above the ankle on the right. Patient believes right side of her body is numb and weak. Patient states her blood pressure has been running high as well. Patient is also complaining of Lhermitte's symptoms for last 1 week. Vital signs on arrival blood pressure 193/85, which went up to 189/113 and then came down to 124/84. Pulse rate 75 temperature 97.9. Blood test shows WBC 15.8 hemoglobin 13.0, platelets 87. Chem-20 is normal. Patient's home medications include albuterol, Adderall 30 mg daily when necessary, Zofran, lisinopril 20 mg, diazepam 10 mg, Imitrex 100 mg twice a day when necessary. Patient has previously tried Tecfidera, but developed significant side effects. She received Ocrevus 1 dose, but developed significant reaction, as her lips swell up and developed hives. She was off disease modifying agents for a year. She had previously tried Avonex, Copaxone, Gilenya, as well. Her last JCV titers were positive at 3.68 on 08/31/2018. She started Vumerity in the middle of April, but she developed GI side effects. She was recommended to take one tablet in the morning 2 at night instead of 2 tablets twice a day. She still had some symptoms, therefore she stopped taking Vumerity in September 2022. Patient denies any tobacco use. Review of Systems Constitutional: Reports fatigue, Reports weakness, Denies chills, Denies fever Eyes: right loss of vision, bilateral blurred vision, denies bulging eye Ears, nose, mouth and throat: Denies sore throat, Denies voice changes Cardiovascular: Denies chest pain, Denies shortness of breath Respiratory: Denies cough, Denies excessive sputum Gastrointestinal: Reports diarrhea, Reports nausea, Denies abdominal pain, Denies vomiting Musculoskeletal: Reports muscle weakness, Denies frequent falls Integumentary: Denies pruritus, Denies rash Neurological: Reports as per HPI Past Medical History Past Medical History: Asthma, Fibromyalgia, GERD/Reflux, Hypertension, Musculoskeletal Disorder, Neurologic Disorder, Pneumonia, Seizure Disorder Additional Past Medical History / Comment(s): Multiple Sclerosis, angina, migraines, DJD, interstitial cystitis, UTI, PCOS, vit D deficiency, bilateral optic neuritis with visual problems, generalized chronic pain, numbness/tingling bilateral lower legs, tachycardia, c-diff 5-9-16, seizures from MS last one around 2017. ADHD. 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 PCOS. MS History of Any Multi-Drug Resistant Organisms: C-DIFF Date of last positivie culture/infection: 2017 MDRO Source:: stool Past Surgical History: Cholecystectomy, Orthopedic Surgery Additional Past Surgical History / Comment(s): Lt shoulder rotator cuff repair 06/06/14, arthroscopic left knee 2000 & 2002, left shoulder reconstruction Past Anesthesia/Blood Transfusion Reactions: No Reported Reaction Additional Past Anesthesia/Blood Transfusion Reaction / Comment(s): Pt has never recieved blood. Past Psychological History: Anxiety, Bipolar, Depression Additional Psychological History / Comment(s): OCD Smoking Status: Never smoker Past Alcohol Use History: Rare Additional Past Alcohol Use History / Comment(s): STARTED SMOKING AGE 17 and quit in 2017 but is using vapor cigarette somedays. Patient denies any medical marijuana, marijuana, street drug use. She denies any alcohol use or abuse. Patient is and lives with her and one child. No recent travel. Patient is on disability. Past Drug Use History: None Reported Additional Drug Use History / Comment(s): Patient reports past history of cocaine, inhaling heroin (no IV use of heroin per patient), marijuana and pain pills not prescribed to patient. - Past Family History Mother Family Medical History: No Reported History Additional Family Medical History / Comment(s): mother is healthy. Maternal grandmother had uterine cancer. Maternal grandfather had bladder cancer. Father Family Medical History: Hypertension Additional Family Medical History / Comment(s): Paternal grandfather had an OK. Medications and Allergies Home Medications Medication Instructions Recorded Confirmed Type Ipratropium/Albuterol Sulfate 2 puff INHALATION RT-BID 12/09/13 11/30/22 History [Combivent Respimat Inhaler] Albuterol Inhaler [Ventolin Hfa 2 puff INHALATION RT-QID PRN 03/04/20 11/30/22 History Inhaler] Dextroamphetamine/Amphetamine 30 mg PO DAILY PRN 10/01/20 11/30/22 History [Adderall] oxyCODONE HCL/ACETAMINOPHEN 1 tab PO TID PRN 08/07/21 11/30/22 History [Percocet 10-325 mg] Ondansetron Odt [Zofran ODT] 4 mg PO Q8HR PRN #20 tab 08/10/21 11/30/22 Rx lisinopriL [Zestril] 20 mg PO DAILY 30 Days #30 tab 08/10/21 11/30/22 Rx SUMAtriptan succinate 100 mg PO BID PRN 11/30/22 11/30/22 History diazePAM 10 mg PO DAILY PRN 11/30/22 11/30/22 History Allergies Allergy/AdvReac Type Severity Reaction Status Date / Time amoxicillin [Amoxicillin] Allergy Severe Anaphylaxis, Verified 11/30/22 19:15 seizures ciprofloxacin [From Cipro] Allergy Severe Rash/Hives, Verified 11/30/22 19:15 seizures codeine phosphate Allergy Unknown Rash/Hives Verified 11/30/22 19:15 [From Tylenol-Codeine #3] bee venom protein (honey bee) Allergy Anaphylaxis Verified 11/30/22 19:15 cefuroxime axetil Allergy Rash/Hives Verified 11/30/22 19:15 [From Ceftin] ketorolac [From Toradol] Allergy Rash/Hives Verified 11/30/22 19:15 latex Allergy Rash/Hives Verified 11/30/22 19:15 NSAIDS (Non-Steroidal Allergy Rash/Hives/Lip Verified 11/30/22 19:15 Anti-Inflamma Swelling sulfamethoxazole Allergy Itching Verified 11/30/22 19:15 [From Bactrim] trimethoprim [From Bactrim] Allergy Itching Verified 11/30/22 19:15 Physical Examination - Vital Signs Vital Signs: Vital Signs Temp Pulse Pulse Resp BP BP Pulse Ox 12/01/22 07:46 98.2 F 83 16 145/93 92 L 12/01/22 01:52 97.9 F 76 16 148/85 96 11/30/22 20:00 98.6 F 62 18 122/75 97 11/30/22 19:33 18 124/84 11/30/22 18:37 84 18 189/113 98 11/30/22 18:15 97.9 F 75 16 193/85 100 Intake and Output 11/30/22 12/01/22 12/01/22 22:59 06:59 14:59 Other: # Voids 1 Weight 90.718 kg Patient is a middle aged female, in no acute distress. Patient is alert awake oriented to time place and person. Speech and language functions are normal. Patient can name and repeat very well. No aphasia or dysarthria. Attention, concentration and fund of knowledge is adequate. On cranial nerve examination, pupils are equal, round and reacting to light, visual pacheco reveals some decreased vision on the right side, homonymous type. Extraocular muscles are intact with no nystagmus. Face is symmetric, tongue protrudes to the midline. Palatal elevation and sensation normal, hearing and shoulder shrug normal, facial sensation normal. On muscle strength testing, there is no pronator drift. The strength is (right/left) deltoid 4+/5, biceps 5/5, spring fitter helper 4/5, hip flexion 4/5, ankle dorsiflexion 0/5, plantarflexion 0/5. Deep tendon reflexes are symmetric, hypoactive, trace and plantars downgoing. Sensory to touch patient is feeling better in the left side of the body. Cerebellar function: Patient was slow for [id number] and heel to hanson testing with the right sided extremities but normal on the left. Tone and bulk of muscles normal. Gait deferred.. On general examination, there is no carotid bruit or murmur, S1-S2 audible. Chest is clear on consultation. Abdomen is soft nontender. No organomegaly, bowel sounds present. Peripheral pulses are present. No edema. Results - Laboratory Findings CBC and BMP: 11/30/22 18:46 11/30/22 18:46 Abnormal Lab Findings: Abnormal Labs 11/30/22 11/30/22 18:46 18:46 WBC 15.8 H Neutrophils # 12.0 H Glucose 106 H Assessment and Plan Assessment: * Possible MS exacerbation * Relapsing remitting MS * Obesity * X tobacco use, now Vapes * History of recurrent UTI * History of right occipital neuralgia Plan: * Patient to start Solu-Medrol 1 g IVPB daily for 3-5 days. * MRI of the brain with and without contrast evaluate for MS exacerbation. * Dr. Gilles Drake will start neurology service in the morning. Thank you for the consult.
[2022-12-01] MEDS: diazePAM 5 MG TAB PO PRN (19:39)
[2022-12-01] MEDS: INSULIN ASPART (NovoLOG) 100 UNIT/ML VIAL SQ SCH (21:30)
[2022-12-01] MEDS: TEMAZEPAM 7.5 MG CAP PO PRN (21:54)
[2022-12-02] MEDS: ONDANSETRON 4 MG/2 ML VIAL IVP PRN ×3 (01:33→22:21)
[2022-12-02] MEDS: HYDROmorphone 1 MG/ML 1 ML SYRINGE IVP PRN ×6 (01:33→22:11)
[2022-12-02] MEDS: INSULIN ASPART (NovoLOG) 100 UNIT/ML VIAL SQ SCH ×4 (06:33→22:12)
[2022-12-02] MEDS: oxyCODONE-APAP 10-325MG 1 EACH TAB PO PRN ×2 (07:45→16:21)
[2022-12-02] MEDS: PANTOPRAZOLE 40 MG/10 ML VIAL IVP SCH ×2 (08:55→22:11)
[2022-12-02] MEDS: IPRATROPIUM-ALBUTEROL 3 ML NEB INHALATION SCH ×2 (09:12→20:39)
[2022-12-02] MEDS: SODIUM CHLORIDE 0.9% 1,000 ML IV SCH ×2 (09:23→22:54)
[2022-12-02] MEDS: amLODIPine 5 MG TAB PO SCH (09:23)
[2022-12-02] MEDS: lisinopriL 20 MG TAB PO SCH (09:23)
[2022-12-02] MEDS: methylPREDNISolone SOD SUCCIN 1,000 MG in SODIUM CHLORIDE 0.9% 250 ML IVPB SCH (09:29)
[2022-12-02 11:20] LABS: Glucose,Whole Blood 133 mg/dL (70-110)
[2022-12-02] MEDS ORDERED: LORazepam 2 MG/ML INJ IV PRN (13:43)
[2022-12-02 16:46] LABS: Glucose,Whole Blood 177 mg/dL (70-110)
--- NOTE | 2022-12-02 16:51 | P.PN ---
Subjective Progress Note Date: 12/02/22 I am seeing the patient for the first time during this admission. Patient states she had history of MS and initially was following-up with Dr. Monsalve then switched to Dr. Kelly. She is on Vumerity and has been notices some GI side-effect so was not taking it as 1 tab tid so now takes it one tab qam and two tab qhs. She has came because of paresthesia of the hands and feet and felt right lower extremity is weak. She is on IV steroids for MS exacerbation and feels somewhat better. She has pending MRI Brain. Please refer to Dr. Mayo's notes for further details. Objective - Vital Signs Vital signs: Vital Signs Temp 98.3 F 12/02/22 14:58 Pulse 69 12/02/22 14:58 Resp 17 12/02/22 14:58 BP 134/75 12/02/22 14:58 Pulse Ox 98 12/02/22 14:58 FiO2 Intake & Output 12/01/22 12/02/22 12/02/22 18:59 06:59 18:59 Other: Voiding Method Bedside Commode Bedside Commode # Voids 2 2 - Exam Neuro: The patient is awake, alert, oriented to self, place and time. Is following simple commands. No aphasia or neglect. Cranial Nerves: Pupils are round, equal and reactive to light. Visual pacheco are full to confrontation. EOM intact throughout and no appreciable nystagmus. No facial weakness. No dysarthria. Motor: Strength is somewhat limited but moving uppers without focality. While has right lower extremity weakness compared to left. Sensation: Normal to touch throughout. - Labs CBC & Chem 7: 11/30/22 18:46 11/30/22 18:46 Labs: Abnormal Lab Results - Last 24 Hours (Table) 12/01/22 12/02/22 Range/Units 16:58 11:18 POC Glucose (mg/dL) 216 H 133 H (70-110) mg/dL Assessment and Plan Assessment: * Possible MS exacerbation * Relapsing remitting MS * Obesity * X tobacco use, now Vapes * History of recurrent UTI * History of right occipital neuralgia Plan: * Continue Solu-Medrol 1 g IVPB daily for total 3-5 days (today is day #2) * MRI of the brain with and without contrast evaluate for MS exacerbation: pending. * Ordered vitamin B12, folate and Vitamin D levels. * Consulted PT and OT * Upon discharge, recommend the patient to follow-up with her neurologist within 1-2 weeks. The plan is discussed with patient and her nurse. Time with Patient: Less than 30
--- NOTE | 2022-12-02 18:00 | MR ---
EXAMINATION TYPE: MR brain wo/w con DATE OF EXAM: 12/02/2022 COMPARISON: Prior MRI brain August 09, 2021 HISTORY: MS exacerbation. TECHNIQUE: Multiplanar, multisequence images of the brain and brainstem is performed without and with IV contras t, utilizing 9 mL intravenous Gadavist gadolinium contrast is administered intravenously. Demyelinat ing disease protocol with additional Sagittal Flair sequence performed. FINDINGS: T2 Lesions Present : Yes Approximate Number of Lesions: Approximately 15 Locations Identified : Greatest periventricular levels Size of Reference Lesion(s): 1. 1.3 x 2.0 x 1.7 cm deep right parietal periventricular lesion axial image 20 sagittal image 181 no t significantly changed from prior. There is however posterior left frontal 1.3 x 1.1 x 1.0 cm lesion axial image 19 and sagittal image 89 which is increased in size from prior study when it was near 6 mm. Enhancing Lesion(s) Present: No T1 Hypointense Lesion(s) Present: Yes Change from Prior: Increase in number There is new 4 to 5 mm right cerebellar peduncle lesion axial image 8 noted. Diffusion weighted images demonstrate no evidence of a recent infarct or other diffusion abnormality. There is no worrisome extra-axial fluid collection. Mild ventricular and sulcal prominence is redem onstrated and stable. 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 The craniocervical junction appears within normal limits. Post contrast images demonstrate no abnormal enhancing masses. The dural venous sinuses appe ar patent. The visualized sinuses are clear and the globes are intact. IMPRESSION: Mild to moderate white matter changes redemonstrated presumed on basis of known multiple sclerosis. New and enlarging lesions are present. No abnormal enhancing lesions are noted. 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
[2022-12-02] MEDS ORDERED: MAGNESIUM HYDROXIDE 2,400 MG/10 ML CUP PO PRN (18:07)
[2022-12-02 20:54] LABS: Glucose,Whole Blood 163 mg/dL (70-110)
[2022-12-02] MEDS: diazePAM 5 MG TAB PO PRN (22:11)
[2022-12-02] MEDS: TEMAZEPAM 7.5 MG CAP PO PRN (22:21)
[2022-12-03] MEDS: oxyCODONE-APAP 10-325MG 1 EACH TAB PO PRN ×4 (00:26→20:05)
[2022-12-03] MEDS: HYDROmorphone 1 MG/ML 1 ML SYRINGE IVP PRN ×6 (03:14→23:01)
[2022-12-03 04:47] LABS: Glucose,Whole Blood 163 mg/dL (70-110)
--- NOTE | 2022-12-03 04:48 | P.PN ---
Subjective Progress Note Date: 12/02/22 This is a pleasant 42 years old female with past medical history of migraine, seizure disorder, fibromyalgia, GERD, hypertension, multiple sclerosis, interstitial cystitis, anxiety and depression Patient presents with right leg weakness and numbness and blurred vision tabs 2 days Patient states that she started feeling weak and not well with increasing pain over the last week, she says she has history of multiple sclerosis and over the last 2 days she started having right foot drop with numbness in her right foot, right hand associated with right eye blurred vision, these are symptoms similar to her previous flareup of multiple sclerosis as she had previous foot drop. Also she complains from some headache. She denies chest pain dyspnea, no GI or urinary symptoms. No dizziness. No slurred speech Patient denies smoking, alcohol or illicit drugs She takes Valium for muscle spasm and she states. Also she says increasing pain especially in the upper part of her body, her pain is generalized. She denies fever. She is concerned about her blood pressure is high I offered to do test but she declines stating she's not sexually active, risks and benefits are explained Vitals are stable She has mild leukocytosis of 15.8, rest of CBC, BMP and liver enzymes are unremarkable. 12/02/2022 Patient seen and evaluated and follow-up with neurology following. Patient is scheduled for MRI today of the brain. Patient is currently maintained on large dose IV steroids for MS exacerbation and recommend monitoring Accu-Cheks and using sliding scale as needed. Patient has been asking for increase in her pain medications and will continue current regimen. Encouraged to increase activity as tolerated. Patient is currently afebrile with no reports of chest pain or shortness of breath noted. There was a noted vaping device in the bed and encourage cessation of this while in the hospital. One-time dose of anxiety medication given for MRI today. Review of systems: Constitutional: No reports of fatigue, fever, or chills Cardiovascular: No reports of chest pain or palpitations Respiratory: No reports of shortness of breath or cough GI: No reports of nausea, vomiting, or diarrhea : No reports of dysuria or retention Neurovascular: reports of generalized weakness All medications have been reviewed Active Medications Acetaminophen (Acetaminophen Tab 325 Mg Tab) 650 mg PO Q6HR PRN PRN Reason: Mild Pain or Fever > 100.5 Albuterol Sulfate (Albuterol Nebulized 2.5 Mg/3 Ml) 2.5 mg INHALATION RT-QID PRN PRN Reason: Shortness Of Breath Albuterol/Ipratropium (Ipratropium-Albuterol 3 Ml Neb) 3 ml INHALATION RT-BID [facility] Last Admin: 12/02/22 09:12 Dose: Not Given Amlodipine Besylate (Amlodipine 5 Mg Tab) 5 mg PO DAILY [facility] Last Admin: 12/02/22 09:23 Dose: 5 mg Dextrose/Water (Dextrose 50% Syringe 50 Ml) 25 ml IVP PER PROTOCOL PRN; Pr otocol PRN Reason: Hypoglycemia Dextrose/Water (Dextrose 50% Syringe 50 Ml) 50 ml IVP PER PROTOCOL PRN; Protocol PRN Reason: Hypoglycemia Diazepam (Diazepam 5 Mg Tab) 10 mg PO DAILY PRN PRN Reason: Anxiety Last Admin: 12/01/22 19:39 Dose: 10 mg Hydromorphone HCl (Hydromorphone 1 Mg/Ml 1 Ml Syringe) 1 mg IVP Q4HR PRN PRN Reason: Pain Last Admin: 12/02/22 13:00 Dose: 1 mg Sodium Chloride (Saline 0.9%) 1,000 mls @ 75 mls/hr IV .[id number] [facility] Last Admin: 12/02/22 09:23 Dose: 75 mls/hr Methylprednisolone Sodium Succinate 1,000 mg/ Sodium Chloride 250 mls @ 250 mls/hr IVPB DAILY [facility] Stop: 12/05/22 09:01 Last Admin: 12/02/22 09:29 Dose: 250 mls/hr Insulin Aspart (Insulin Aspart (Novolog) 100 Unit/Ml Vial) 0 unit SQ ACHS [facility]; Protocol Last Admin: 12/02/22 12:17 Dose: Not Given Lisinopril (Lisinopril 20 Mg Tab) 20 mg PO DAILY [facility] [place] Last Admin: 12/02/22 09:23 Dose: 20 mg Lorazepam (Lorazepam 2 Mg/Ml Inj) 1 mg IV ONCE PRN PRN Reason: Anxiety Naloxone HCl (Naloxone 0.4 Mg/Ml 1 Ml Vial) 0.2 mg IV Q2M PRN PRN Reason: Opioid Reversal Ondansetron HCl (Ondansetron 4 Mg/2 Ml Vial) 4 mg IVP Q8HR PRN PRN Reason: Nausea And Vomiting Last Admin: 12/02/22 13:03 Dose: 4 mg Oxycodone/Acetaminophen (Oxycodone-Apap 10-325mg 1 Each Tab) 1 each PO TID PRN PRN Reason: Pain Last Admin: 12/02/22 07:45 Dose: 1 each Pantoprazole Sodium (Pantoprazole 40 Mg/10 Ml Vial) 40 mg IVP BID KITA Last Admin: 12/02/22 08:55 Dose: Not Given Sumatriptan Succinate (Sumatriptan Succinate 50 Mg Tab) 100 mg PO BID PRN PRN Reason: Migraine Headache Last Admin: 12/01/22 12:10 Dose: 100 mg Temazepam (Temazepam 7.5 Mg Cap) 7.5 mg PO HS PRN PRN Reason: Insomnia Last Admin: 12/01/22 21:54 Dose: 7.5 mg Physical exam: GENERAL: The patient is alert and oriented x3, not in any acute distress. Well developed, well nourished. Obese. HEENT: Pupils are round and equally reacting to light. EOMI. No scleral icterus. No conjunctival pallor. Normocephalic, atraumatic. No pharyngeal erythema. No thyromegaly. CARDIOVASCULAR: S1 and S2 present. No murmurs, rubs, or gallops. PULMONARY: Chest is clear to auscultation, no wheezing or crackles. ABDOMEN: Soft, nontender, nondistended, normoactive bowel sounds. No palpable organomegaly. MUSCULOSKELETAL: No joint swelling or deformity. EXTREMITIES: No cyanosis, clubbing, or pedal edema. -NEUROLOGICAL: cranial nerves are grossly intact. Right foot drop. Mildly decreased sensation on the right foot and right hand. SKIN: No rashes. no petechiae. Assessment: Acute multiple sclerosis exacerbation Hypertension, mildly uncontrolled. Mild leukocytosis with no evidence of infection, most likely steroid effect History of migraine History of seizure History of GERD Hypertension History of anxiety and depression Vaping History of substance abuse Obesity with BMI of 52.3 Plan: Continue with IV Solu-Medrol 1000 mg daily 3 days Neurology following an MRI of the brain is ordered. Initially patient had refused to sign the consent for MRI and screening although on exam patient repor ts she did finish the form. Patient is concerned about increased anxiety for MRI and will add 1 dose anxiolytic Recommend continue with current medications and patient also asking for increasing frequency on her pain medications. Will continue current regimen Recommend follow-up labs in the morning and recommend continuing to monitor Accu-Cheks before meals and at bedtime and will use sliding scale for elevated blood sugars. Prognosis is guarded The impression and plan of care has been dictated by Lashon Veliz, Nurse Practitioner as directed. Dr. Luis MD I have performed a history and examination and MDM of this patient, discussed the same with the dictator, and agree with the dictator's assessment and plan as written ,documented as a scribe. Based on total visit time, I have performed more than 50% of the visit. Objective - Vital Signs Vital signs: Vital Signs Temp 98.8 F 12/02/22 07:34 Pulse 94 12/02/22 07:34 Resp 16 12/02/22 07:34 BP 120/83 12/02/22 07:34 Pulse Ox 95 12/02/22 07:34 FiO2 Intake & Output 12/01/22 12/02/22 12/02/22 18:59 06:59 18:59 Other: Voiding Method Bedside Commode # Voids 2 2 - Labs CBC & Chem 7: 11/30/22 18:46 11/30/22 18:46 Labs: Abnormal Lab Results - Last 24 Hours (Table) 12/01/22 12/01/22 Range/Units 12:24 16:58 POC Glucose (mg/dL) 216 H (70-110) mg/dL Urine Protein Trace H (Negative) Urine Glucose (UA) 4+ H (Negative) Urine Ketones 1+ H (Negative) Urine Blood Large H (Negative) Urine RBC 9 H (0-5) /hpf Urine WBC 10 H (0-5) /hpf Urine Mucus Rare H (None) /hpf
[2022-12-03] MEDS: INSULIN ASPART (NovoLOG) 100 UNIT/ML VIAL SQ SCH ×4 (06:44→20:10)
[2022-12-03] MEDS: ONDANSETRON 4 MG/2 ML VIAL IVP PRN ×2 (07:17→19:04)
[2022-12-03] MEDS: amLODIPine 5 MG TAB PO SCH (08:21)
[2022-12-03] MEDS: PANTOPRAZOLE 40 MG/10 ML VIAL IVP SCH ×2 (08:21→20:05)
[2022-12-03] MEDS: lisinopriL 20 MG TAB PO SCH (08:21)
[2022-12-03] MEDS: methylPREDNISolone SOD SUCCIN 1,000 MG in SODIUM CHLORIDE 0.9% 250 ML IVPB SCH (08:29)
[2022-12-03] MEDS: IPRATROPIUM-ALBUTEROL 3 ML NEB INHALATION SCH ×2 (09:30→20:49)
[2022-12-03 11:26] LABS: Glucose,Whole Blood 133 mg/dL (70-110)
[2022-12-03 11:35] LABS: African American GFR (CKD) >90 (>60 ml/min/1.73 sqM); Anion Gap 8 mmol/L; Blood Urea Nitrogen 19 mg/dL (7-17); Calcium 8.5 mg/dL (8.4-10.2); Carbon Dioxide 24 mmol/L (22-30); Chloride 104 mmol/L (98-107); Glucose 146 mg/dL (74-99); Non-African American GFR(CKD) >90 (>60 ml/min/1.73 sqM); Potassium 4.5 mmol/L (3.5-5.1); Sodium 136 mmol/L (137-145)
[2022-12-03 11:59] LABS: Basophils % (A) 0 %; Eosinophils % (A) 0 %; HCT 40.7 % (34.0-46.0); HGB 12.4 gm/dL (11.4-16.0); Lymphocytes # (A) 1.5 k/uL (1.0-4.8); Lymphocytes % (A) 6 %; MCH 28.7 pg (25.0-35.0); MCHC 30.4 g/dL (31.0-37.0); Mean Platelet Volume 8.3; Monocytes # (A) 0.8 k/uL (0-1.0); Monocytes % (A) 3 %; Neutrophils # (A) 22.6 k/uL (1.3-7.7); Neutrophils % (A) 90 %; Platelet Count 347 k/uL (150-450); RBC 4.32 m/uL (3.80-5.40)
[2022-12-03 12:14] LABS: MCV 94.3 fL (80.0-100.0)
[2022-12-03] MEDS: diazePAM 5 MG TAB PO PRN (14:57)
[2022-12-03] MEDS: SODIUM CHLORIDE 0.9% 1,000 ML IV SCH (14:58)
[2022-12-03 16:32] LABS: Glucose,Whole Blood 204 mg/dL (70-110)
--- NOTE | 2022-12-03 16:54 | P.PN ---
Subjective Progress Note Date: 12/03/22 This is a pleasant 42 years old female with past medical history of migraine, seizure disorder, fibromyalgia, GERD, hypertension, multiple sclerosis, interstitial cystitis, anxiety and depression Patient presents with right leg weakness and numbness and blurred vision tabs 2 days Patient states that she started feeling weak and not well with increasing pain over the last week, she says she has history of multiple sclerosis and over the last 2 days she started having right foot drop with numbness in her right foot, right hand associated with right eye blurred vision, these are symptoms similar to her previous flareup of multiple sclerosis as she had previous foot drop. Also she complains from some headache. She denies chest pain dyspnea, no GI or urinary symptoms. No dizziness. No slurred speech Patient denies smoking, alcohol or illicit drugs She takes Valium for muscle spasm and she states. Also she says increasing pain especially in the upper part of her body, her pain is generalized. She denies fever. She is concerned about her blood pressure is high I offered to do test but she declines stating she's not sexually active, risks and benefits are explained Vitals are stable She has mild leukocytosis of 15.8, rest of CBC, BMP and liver enzymes are unremarkable. 12/02/2022 Patient seen and evaluated and follow-up with neurology following. Patient is scheduled for MRI today of the brain. Patient is currently maintained on large dose IV steroids for MS exacerbation and recommend monitoring Accu-Cheks and using sliding scale as needed. Patient has been asking for increase in her pain medications and will continue current regimen. Encouraged to increase activity as tolerated. Patient is currently afebrile with no reports of chest pain or shortness of breath noted. There was a noted vaping device in the bed and encourage cessation of this while in the hospital. One-time dose of anxiety medication given for MRI today. 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 Patient is maintained on large dose IV steroids and recommend continue monitoring Accu-Cheks before meals and at bedtime and use sliding scale. Patient is reporting significant pain with lower extremity weakness and right foot drop continues to cause increased pain and weakness. Patient is requesting increase in IV Dilaudid and will adjust her Percocets. Patient also reports poor sleep and reports the Restoril is not helping. Will adjust medications. Patient is currently afebrile with no reports of chest pain or shortness of breath noted. Patient will need to follow-up with her neurologist outpatient once discharged. Will discuss further with neurology about discharge planning. Review of systems: Constitutional: No reports of fatigue, fever, or chills Cardiovascular: No reports of chest pain or palpitations Respiratory: No reports of shortness of breath or cough GI: No reports of nausea, vomiting, or diarrhea : No reports of dysuria or retention Neurovascular: reports of generalized weakness All medications have been reviewed Active Medications Acetaminophen (Acetaminophen Tab 325 Mg Tab) 650 mg PO Q6HR PRN PRN Reason: Mild Pain or Fever > 100.5 Albuterol Sulfate (Albuterol Nebulized 2.5 Mg/3 Ml) 2.5 mg INHALATION RT-QID PRN PRN Reason: Shortness Of Breath Albuterol/Ipratropium (Ipratropium-Albuterol 3 Ml Neb) 3 ml INHALATION RT-BID [facility] Last Admin: 12/03/22 09:30 Dose: Not Given Amlodipine Besylate (Amlodipine 5 Mg Tab) 5 mg PO DAILY [facility] Last Admin: 12/03/22 08:21 Dose: 5 mg Dextrose/Water (Dextrose 50% Syringe 50 Ml) 25 ml IVP PER PROTOCOL PRN; Prot ocol PRN Reason: Hypoglycemia Dextrose/Water (Dextrose 50% Syringe 50 Ml) 50 ml IVP PER PROTOCOL PRN; Protocol PRN Reason: Hypoglycemia Diazepam (Diazepam 5 Mg Tab) 10 mg PO DAILY PRN PRN Reason: Anxiety Last Admin: 12/03/22 14:57 Dose: 10 mg Hydromorphone HCl (Hydromorphone 1 Mg/Ml 1 Ml Syringe) 1 mg IVP Q4HR PRN PRN Reason: Pain Last Admin: 12/03/22 14:53 Dose: 1 mg Sodium Chloride (Saline 0.9%) 1,000 mls @ 75 mls/hr IV .[id number] [facility] Last Admin: 12/03/22 14:58 Dose: 75 mls/hr Methylprednisolone Sodium Succinate 1,000 mg/ Sodium Chloride 250 mls @ 250 mls/hr IVPB DAILY [facility] Stop: 12/05/22 09:01 Last Admin: 12/03/22 08:29 Dose: 250 mls/hr Insulin Aspart (Insulin Aspart (Novolog) 100 Unit/Ml Vial) 0 unit SQ ACHS [facility]; Protocol Last Admin: 12/03/22 16:47 Dose: 4 unit Lisinopril (Lisinopril 20 Mg Tab) 20 mg PO DAILY [facility] Last Admin: 12/03/22 08:21 Dose: 20 mg Lorazepam (Lorazepam 2 Mg/Ml Inj) 1 mg IV ONCE PRN PRN Reason: Anxiety Last Admin: 12/02/22 17:02 Dose: 1 mg Magnesium Hydroxide (Magnesium Hydroxide 2,400 Mg/10 Ml Cup) 2,400 mg PO ONCE PRN PRN Reason: Constipation Last Admin: 12/02/22 18:21 Dose: 2,400 mg Naloxone HCl (Naloxone 0.4 Mg/Ml 1 Ml Vial) 0.2 mg IV Q2M PRN PRN Reason: Opioid Reversal Ondansetron HCl (Ondansetron 4 Mg/2 Ml Vial) 4 mg IVP Q8HR PRN PRN Reason: Nausea And Vomiting Last Admin: 12/03/22 07:17 Dose: 4 mg Oxycodone/Acetaminophen (Oxycodone-Apap 10-325mg 1 Each Tab) 1 each PO Q6H PRN PRN Reason: Pain Last Admin: 12/03/22 13:49 Dose: 1 each Pantoprazole Sodium (Pantoprazole 40 Mg/10 Ml Vial) 40 mg IVP BID [facility] Last Admin: 12/03/22 08:21 Dose: 40 mg Quetiapine Fumarate (Quetiapine 50 Mg Tab) 50 mg PO [facility] Sumatriptan Succinate (Sumatriptan Succinate 50 Mg Tab) 100 mg PO BID PRN PRN Reason: Migraine Headache Last Admin: 12/01/22 12:10 Dose: 100 mg Physical exam: GENERAL: The patient is alert and oriented x3, not in any acute distress. Well developed, well nourished. Obese. HEENT: Pupils are round and equally reacting to light. EOMI. No scleral icterus. No conjunctival pallor. Normocephalic, atraumatic. No pharyngeal erythema. No thyromegaly. CARDIOVASCULAR: S1 and S2 muffled PULMONARY: Diminished breath sounds bilaterally with no wheezing or rhonchi noted. ABDOMEN: Soft, obese, nontender, nondistended, normoactive bowel sounds. No palpable organomegaly. MUSCULOSKELETAL: No joint swelling or deformity. EXTREMITIES: No cyanosis, clubbing, or pedal edema. -NEUROLOGICAL: cranial nerves are grossly intact. Right foot drop. Mildly d ecreased sensation on the right foot and right hand. SKIN: No rashes. no petechiae. Assessment: Acute multiple sclerosis exacerbation Hypertension, mildly uncontrolled. Mild leukocytosis with no evidence of infection, most likely steroid effect History of migraine History of seizure History of GERD Hypertension History of anxiety and depression Vaping History of substance abuse Obesity with BMI of 52.3 Plan: Continue with IV Solu-Medrol 1000 mg daily and currently on day 3 with neurology following. MRI of the brain was noted as mentioned previously and will need follow-up with her neurologist outpatient Patient is asking for increase in her IV Dilaudid as well as an increase in her Percocets. Patient reports poor sleep and requesting Seroquel will add. Patient reports Restoril not helping and will discontinue Recommend follow-up labs in the morning and recommend continuing to monitor Accu-Cheks before meals and at bedtime and will use sliding scale for elevated blood sugars. Prognosis is guarded Probable discharge in 24 hours The impression and plan of care has been dictated by Lashon Veliz, Nurse Practitioner as directed. Dr. Charles MD I have performed a history and examination and MDM of this patient, discussed the same with the dictator, and agree with the dictator's assessment and plan as written ,documented as a scribe. Based on total visit time, I have performed more than 50% of the visit. Objective - Vital Signs Vital signs: Vital Signs Temp 97.4 F L 12/03/22 07:24 Pulse 82 12/03/22 14:00 Resp 16 12/03/22 14:00 BP 138/85 12/03/22 14:00 Pulse Ox 97 12/03/22 14:00 FiO2 Intake & Output 12/02/22 12/03/22 12/03/22 18:59 06:59 18:59 Intake Total 250 960 300 Output Total 900 Balance -650 960 300 Intake: Oral 250 960 300 Output: Urine 900 Other: Voiding Method Bedside Commode Bedside Commode # Voids 2 1 # Bowel Movements 1 - Labs CBC & Chem 7: 12/03/22 11:00 12/03/22 11:00 Labs: Abnormal Lab Results - Last 24 Hours (Table) 12/02/22 12/02/22 12/03/22 Range/Units 16:42 20:53 04:45 WBC (3.8-10.6) k/uL MCHC (31.0-37.0) g/dL Neutrophils # (1.3-7.7) k/uL Sodium (137-145) mmol/L BUN (7-17) mg/dL Glucose (74-99) mg/dL POC Glucose (mg/dL) 177 H 163 H 163 H (70-110) mg/dL 12/03/22 12/03/22 12/03/22 Range/Units 11:00 11:00 11:24 WBC 25.0 H (3.8-10.6) k/uL MCHC 30.4 L (31.0-37.0) g/dL Neutrophils # 22.6 H (1.3-7.7) k/uL Sodium 136 L (137-145) mmol/L BUN 19 H (7-17) mg/dL Glucose 146 H (74-99) mg/dL POC Glucose (mg/dL) 133 H (70-110) mg/dL
--- NOTE | 2022-12-03 17:58 | P.PN ---
Subjective Progress Note Date: 12/03/22 Patient seen at bedside and she feels her vision has been improving as well as the numbness has been improving while she is on IV steroids. She is having generalized pain and she stated that it's an ongoing process that she's dealing with since she's been having multiple sclerosis. She stated that she tried multiple different medications in the past and none has worked other than morphine or Percocet or Soma. Objective - Vital Signs Vital signs: Vital Signs Temp 97.4 F L 12/03/22 07:24 Pulse 82 12/03/22 14:00 Resp 16 12/03/22 14:00 BP 138/85 12/03/22 14:00 Pulse Ox 97 12/03/22 14:00 FiO2 Intake & Output 12/02/22 12/03/22 12/03/22 18:59 06:59 18:59 Intake Total 250 960 300 Output Total 900 Balance -650 960 300 Intake: Oral 250 960 300 Output: Urine 900 Other: Voiding Method Bedside Commode Bedside Commode # Voids 2 1 # Bowel Movements 1 - Exam Neuro: The patient is awake, alert, oriented to self, place and time. Is following simple commands. No aphasia or neglect. Cranial Nerves: Pupils are round, equal and reactive to light. Visual pacheco are full to confrontation. EOM intact throughout and no appreciable nystagmus. No facial weakness. No dysarthria. Motor: Strength is somewhat limited but moving uppers without focality. While has right lower extremity weakness compared to left. Sensation: Normal to touch throughout. - Labs CBC & Chem 7: 12/03/22 11:00 12/03/22 11:00 Labs: Abnormal Lab Results - Last 24 Hours (Table) 12/02/22 12/03/22 12/03/22 Range/Units 20:53 04:45 11:00 WBC 25.0 H (3.8-10.6) k/uL MCHC 30.4 L (31.0-37.0) g/dL Neutrophils # 22.6 H (1.3-7.7) k/uL Sodium (137-145) mmol/L BUN (7-17) mg/dL Glucose (74-99) mg/dL POC Glucose (mg/dL) 163 H 163 H (70-110) mg/dL 12/03/22 12/03/2212/03/23 Range/Units 11:00 11:24 16:30 WBC (3.8-10.6) k/uL MCHC (31.0-37.0) g/dL Neutrophils # (1.3-7.7) k/uL Sodium 136 L (137-145) mmol/L BUN 19 H (7-17) mg/dL Glucose 146 H (74-99) mg/dL POC Glucose (mg/dL) 133 H 204 H (70-110) mg/dL Assessment and Plan Assessment: * Probable MS exacerbation * Relapsing remitting MS * Obesity * X tobacco use, now Vapes * History of recurrent UTI * History of right occipital neuralgia Plan: * MRI of the brain with and without contrast evaluate for MS exacerbation: It is reported as mild to moderate white matter changes redemonstrated presumed on the basis of known multiple sclerosis. New and enlarging lesion are present. No abnormal enhancing lesion are noted. 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 I personally reviewed the MRI and I agree there is no new enhancing lesion. She does have a lesions that are characteristic for multiple sclerosis. * Continue Solu-Medrol 1 g IVPB daily for total 4 days (today is day #3). * Recommend MRI of the cervical and thoracic spine w/ and w/o as an outpatient for surveillance * Serum folate is 6.60 disc surgery on the low normal side. Therefore I started the patient on folic acid 1 mg daily. * Vitamin B12 is 334 and it's consider on the low normal. I gave the patient's vitamin B12 1000mcg once. Recommend getting a repeat vitamin B12 level within a 4-6 weeks * Pending Vitamin D levels. * Consulted PT and OT * Consider pain management consultation if patient continue to have uncontrolled pain. Currently she is on Dilaudid. Patient stated that she tried numerous medications in the past and has not worked in the medication that works for her was morphine, Percocet or Soma. She has tried gabapentin, Lyrica, baclofen, tizanidine and they're ineffective. * Upon discharge, recommend the patient to follow-up with her neurologist within 1-2 weeks. The plan is discussed with patient and her nurse. Time with Patient: Less than 30
[2022-12-03] MEDS ORDERED: CYANOCOBALAMIN 1,000 MCG/ML 1 ML VIAL IM ONE (19:00)
[2022-12-03 20:15] LABS: Glucose,Whole Blood 150 mg/dL (70-110)
[2022-12-03] MEDS ORDERED: QUEtiapine 50 MG TAB PO SCH (21:00)
[2022-12-04] MEDS: oxyCODONE-APAP 10-325MG 1 EACH TAB PO PRN ×2 (02:09→07:59)
[2022-12-04] MEDS: SODIUM CHLORIDE 0.9% 1,000 ML IV SCH (02:11)
[2022-12-04] MEDS: HYDROmorphone 1 MG/ML 1 ML SYRINGE IVP PRN ×3 (03:00→11:11)
[2022-12-04] MEDS: ONDANSETRON 4 MG/2 ML VIAL IVP PRN ×2 (03:00→11:11)
[2022-12-04 06:05] LABS: Glucose,Whole Blood 129 mg/dL (70-110)
[2022-12-04] MEDS: INSULIN ASPART (NovoLOG) 100 UNIT/ML VIAL SQ SCH (06:12)
[2022-12-04] MEDS: lisinopriL 20 MG TAB PO SCH (07:59)
[2022-12-04] MEDS: diazePAM 5 MG TAB PO PRN (07:59)
[2022-12-04] MEDS: amLODIPine 5 MG TAB PO SCH (07:59)
[2022-12-04] MEDS: PANTOPRAZOLE 40 MG/10 ML VIAL IVP SCH (08:00)
[2022-12-04] MEDS: methylPREDNISolone SOD SUCCIN 1,000 MG in SODIUM CHLORIDE 0.9% 250 ML IVPB SCH (08:00)
[2022-12-04 08:10] VITALS: BP 158/89; PULSE 60; RESP 16; TEMP 97.5
[2022-12-04] MEDS ORDERED: FOLIC ACID 1 MG TAB PO SCH (09:00)
[2022-12-04] MEDS: IPRATROPIUM-ALBUTEROL 3 ML NEB INHALATION SCH (09:18)
--- NOTE | 2022-12-05 15:33 | P.DS ---
Providers Date of admission: 11/30/22 19:14 Expected date of discharge: 12/04/22 Attending physician: Yury Smith Consults: 11/30/22 19:13 Consult Physician Routine Consulting Provider: Esther Mayo Consult Reason/Comments: MS exacerbation Do you want consulting provider notified?: Yes Primary care physician: Soto Mukherjee MD Hospital Course: Final diagnosis Acute multiple sclerosis exacerbation Hypertension, mildly uncontrolled. Mild leukocytosis with no evidence of infection, most likely steroid effect History of migraine History of seizure History of GERD Hypertension History of anxiety and depression Vaping History of substance abuse Obesity with BMI of 52.3 Discharge disposition Patient is being discharged in a stable condition with guarded prognosis to home. Patient will follow-up with Dr. Mukherjee in the outpatient setting upon discharge. Patient is to continue to follow-up with her neurologist out of [place] as scheduled. Attempted to refer her to pain management and was told that she was discharged from their practice due to noncompliance and breached her pain contract. Total time taken is greater than 35 minutes. Hospital course This is a 42-year-old female who was recently admitted with MS exacerbation with weakness and difficulty in walking. Patient was evaluated by neurology underwent MRI and there are new lesions noted recommending outpatient follow-up with her neurologist. Patient was maintained on large dose IV steroids along with pain management and has been cleared by neurology for discharge. Please refer to other consultation notes for further HPI. Patient made multiple requests to increase her Dilaudid as well as asking for a dose before leaving. Currently no reports of chest pain, shortness of breath, or palpitations. P atient is afebrile. No reports of nausea or vomiting and patient is tolerating diet. Patient will be discharged home today. Guarded prognosis and high risk for readmissions due to patient's noncompliance and addictive behaviors to pain medications. Physical exam: Gen: This is a 42-year-old female who is awake, alert and oriented 3, well- developed, well-nourished, obese HEENT: Head is atraumatic, normocephalic. Pupils equal, round. Sclerae is anicteric. NECK: Supple. No JVD. No lymphadenopathy. No thyromegaly. LUNGS: Diminished breath sounds bilaterally with no wheezes or rhonchi. No intercostal retractions. HEART: S1, S2 are muffled ABDOMEN: Soft. Obese. Bowel sounds are present. No masses. No tenderness. EXTREMITIES: No pedal edema. No calf tenderness. NEUROLOGICAL: Patient is awake, alert and oriented x3. Cranial nerves 2 through 12 are grossly intact. Please refer to medication reconciliation sheet for a list of medications. The impression and plan of care has been dictated by Lashon Veliz, Nurse Practitioner as directed. Dr. Charles MD I have performed a history and examination and MDM of this patient, discussed the same with the dictator, and agree with the dictator's assessment and plan as written ,documented as a scribe. Based on total visit time, I have performed more than 50% of the visit. Patient Condition at Discharge: Fair Plan - Discharge Summary Discharge Rx Participant: Yes New Discharge Prescriptions: New Folic Acid 1 mg PO DAILY #30 tab Magnesium Hydroxide [Milk of Magnesia Concentrate] 2,400 mg PO ONCE PRN ml PRN Reason: Constipation amLODIPine [Norvasc] 5 mg PO DAILY #30 tab Continue Ipratropium/Albuterol Sulfate [Combivent Respimat Inhaler] 2 puff INHALATION RT-BID Albuterol Inhaler [Ventolin Hfa Inhaler] 2 puff INHALATION RT-QID PRN PRN Reason: Shortness Of Breath Dextroamphetamine/Amphetamine [Adderall] 30 mg PO DAILY PRN PRN Reason: MS symptoms Ondansetron Odt [Zofran ODT] 4 mg PO Q8HR PRN #20 tab PRN Reason: Nausea diazePAM 10 mg PO DAILY PRN PRN Reason: Anxiety oxyCODONE HCL/ACETAMINOPHEN [Percocet 10-325 mg] 1 tab PO TID PRN PRN Reason: Pain lisinopriL [Zestril] 20 mg PO DAILY 30 Days #30 tab SUMAtriptan succinate 100 mg PO BID PRN PRN Reason: Migraine Headache Discharge Medication List Ipratropium/Albuterol Sulfate [Combivent Respimat Inhaler] 2 puff INHALATION RT- BID 12/09/13 [History] Albuterol Inhaler [Ventolin Hfa Inhaler] 2 puff INHALATION RT-QID PRN 03/04/20 [History] Dextroamphetamine/Amphetamine [Adderall] 30 mg PO DAILY PRN 10/01/20 [History] oxyCODONE HCL/ACETAMINOPHEN [Percocet 10-325 mg] 1 tab PO TID PRN 08/07/21 [History] Ondansetron Odt [Zofran ODT] 4 mg PO Q8HR PRN #20 tab 08/10/21 [Rx] lisinopriL [Zestril] 20 mg PO DAILY 30 Days #30 tab 08/10/21 [Rx] SUMAtriptan succinate 100 mg PO BID PRN 11/30/22 [History] diazePAM 10 mg PO DAILY PRN 11/30/22 [History] Folic Acid 1 mg PO DAILY #30 tab 12/04/22 [Rx] Magnesium Hydroxide [Milk of Magnesia Concentrate] 2,400 mg PO ONCE PRN ml 12/04/22 [Rx] amLODIPine [Norvasc] 5 mg PO DAILY #30 tab 12/04/22 [Rx] Follow up Appointment(s)/Referral(s): Soto Mukherjee MD [Primary Care Provider] - 12/09/22 10:30 am Saturnino Moralez MD [STAFF PHYSICIAN] - 1 Week (They called and said they will not see patient outpatient) Activity/Diet/Wound Care/Special Instructions: Activity Limited until follow-up Follow-up with primary care provider on discharge Follow-up with neurologist this week Continue your scheduled medications Discharge Disposition: HOME SELF-CARE
== END 2022-12-04 13:14 | disposition home or self-care (01) | DRG 59 ==
LOC: EC 18:12 → 4SSUR 19:14
PROVIDERS: ADMIT Internal Medicine; ATTEND Internal Medicine
DX: G35 Multiple sclerosis (principal); Z68.43 Body mass index [BMI] 50.0-59.9, adult; G40.909 Epilepsy, unspecified, not intractable, without status epilepticus; I10 Essential (primary) hypertension; F32.A Depression, unspecified; E66.9 Obesity, unspecified; F19.11 Other psychoactive substance abuse, in remission; M79.7 Fibromyalgia; G89.29 Other chronic pain; K21.9 Gastro-esophageal reflux disease without esophagitis; F41.9 Anxiety disorder, unspecified; D72.828 Other elevated white blood cell count; H54.61 Unqualified visual loss, right eye, normal vision left eye; H53.8 Other visual disturbances; F17.290 Nicotine dependence, other tobacco product, uncomplicated; M54.81 Occipital neuralgia; Z91.040 Latex allergy status; Z88.1 Allergy status to other antibiotic agents; Z88.6 Allergy status to analgesic agent; Z88.5 Allergy status to narcotic agent; Z88.8 Allergy status to other drugs, medicaments and biological substances; Z88.0 Allergy status to penicillin; Z79.899 Other long term (current) drug therapy; Z79.51 Long term (current) use of inhaled steroids
CPT/HCPCS: 36415; 70553; 80048; 80053; 81001; 82607; 82652; 82746; 85025; 94640; 96365; 96375; 99285

== ENCOUNTER 2022-12-31 13:44 | Inpatient (IN) | payer MEDICARE, OTHER ==
[2022-12-31 13:57] VITALS: BP 105/76; PULSE 63; RESP 20; TEMP 98.5
--- NOTE | 2022-12-31 14:03 | ED ---
General Adult HPI - General Chief complaint: Neuro Symptoms/Deficit Stated complaint: Weakness Time Seen by Provider: 12/31/22 13:46 Source: patient Mode of arrival: EMS Limitations: no limitations - History of Present Illness Initial comments: Dictation was produced using mycujoo dictation software. please excuse any grammatical, word or spelling errors. Chief Complaint: 42-year-old male past medical history multiple sclerosis presents via EMS as a transfer from [facility] for multiple sclerosis exacerbation History of Present Illness: This is a 42-year-old feel presents emergency department for MS exacerbation she was initially seen and evaluated [facility]. Her neurologist is out of [place]. [place]. She seen and evaluated at [facility]. She is given options for transfer as she did not want to be transferred to [facility] and instead told the doctor there that she prefer to be transferred here. She seen her neurologist in the past. She presents initially to the ER for worsening head pain, facial pain. She's had area of symptoms of paresthesias to the lower extremities. At [facility] she was given IV analgesia in the form of Dilaudid and also 20/50 monogram slight menstrual period The ROS documented in this emergency department record has been reviewed and confirmed by me. Those systems with pertinent positive or negative responses have been documented in the HPI. All other systems are other negative and/or noncontributory. - Related Data Home Medications Medication Instructions Recorded Confirmed Ipratropium/Albuterol Sulfate 2 puff INHALATION RT-BID 12/09/13 12/31/22 [Combivent Respimat Inhaler] Albuterol Inhaler [Ventolin Hfa 2 puff INHALATION RT-QID PRN 03/04/20 12/31/22 Inhaler] Dextroamphetamine/Amphetamine 30 mg PO DAILY PRN 10/01/20 12/31/22 [Adderall] oxyCODONE HCL/ACETAMINOPHEN 1 tab PO TID PRN 08/07/21 12/31/22 [Percocet 10-325 mg] SUMAtriptan succinate 100 mg PO BID PRN 11/30/22 12/31/22 diazePAM 10 mg PO DAILY PRN 11/30/22 12/31/22 Morphine Sulfate ER [Ms Contin] 15 mg PO DAILY 12/31/22 12/31/22 Previous Rx's Medication Instructions Recorded Ondansetron Odt [Zofran ODT] 4 mg PO Q8HR PRN #20 tab 08/10/21 lisinopriL [Zestril] 20 mg PO DAILY 30 Days #30 tab 08/10/21 amLODIPine [Norvasc] 5 mg PO DAILY #30 tab 12/04/22 predniSONE 10 mg PO DAILY #30 tab 12/31/22 Allergies Allergy/AdvReac Type Severity Reaction Status Date / Time amoxicillin [Amoxicillin] Allergy Severe Anaphylaxis, Verified 12/31/22 15:04 seizures ciprofloxacin [From Cipro] Allergy Severe Rash/Hives, Verified 12/31/22 15:04 seizures codeine phosphate Allergy Unknown Rash/Hives Verified 12/31/22 15:04 [From Tylenol-Codeine #3] bee venom protein (honey bee) Allergy Anaphylaxis Verified 12/31/22 15:04 cefuroxime axetil Allergy Rash/Hives Verified 12/31/22 15:04 [From Ceftin] gabapentin [From Neurontin] Allergy Swelling Verified 12/31/22 15:04 ketorolac [From Toradol] Allergy Rash/Hives Verified 12/31/22 15:04 latex Allergy Rash/Hives Verified 12/31/22 15:04 NSAIDS (Non-Steroidal Allergy Rash/Hives/Lip Verified 12/31/22 15:04 Anti-Inflamma Swelling sulfamethoxazole Allergy Itching Verified 12/31/22 15:04 [From Bactrim] trimethoprim [From Bactrim] Allergy Itching Verified 12/31/22 15:04 Review of Systems ROS Statement: Those systems with pertinent positive or pertinent negative responses have been documented in the HPI. ROS Other: All systems not noted in ROS Statement are negative. Past Medical History Past Medical History: Asthma, Fibromyalgia, GERD/Reflux, Hypertension, Musculoskeletal Disorder, Neurologic Disorder, Pneumonia, Seizure Disorder Additional Past Medical History / Comment(s): Multiple Sclerosis, angina, migraines, DJD, interstitial cystitis, UTI, PCOS, vit D deficiency, bilateral optic neuritis with visual problems, generalized chronic pain, numbness/tingling bilateral lower legs, tachycardia, c-diff 5-9-16, seizures from MS last one around 2016. ADHD. 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 PCOS. MS History of Any Multi-Drug Resistant Organisms: C-DIFF Date of last positivie culture/infection: 2016 MDRO Source:: stool Past Surgical History: Cholecystectomy, Orthopedic Surgery Additional Past Surgical History / Comment(s): Lt shoulder rotator cuff repair 06/06/14, arthroscopic left knee 2000 & 2002, left shoulder reconstruction Past Anesthesia/Blood Transfusion Reactions: No Reported Reaction Additional Past Anesthesia/Blood Transfusion Reaction / Comment(s): Pt has never recieved blood. Past Psychological History: Anxiety, Bipolar, Depression Smoking Status: Never smoker Past Alcohol Use History: Rare Past Drug Use History: None Reported - Past Family History Mother Family Medical History: No Reported History Additional Family Medical History / Comment(s): mother is healthy. Maternal grandmother had uterine cancer. Maternal grandfather had bladder cancer. Father Family Medical History: Hypertension Additional Family Medical History / Comment(s): Paternal grandfather had an NV. General Exam - General Exam Comments Initial Comments: PHYSICAL EXAM: General Impression: Alert and oriented x3, not in acute distress HEENT: Normocephalic atraumatic, extra-ocular movements intact, pupils equal and reactive to light bilaterally, mucous membranes moist. Cardiovascular: Heart regular rate and rhythm Chest: Able to complete full sentences, no retractions, no tachypnea Abdomen: abdomen soft, non-tender, non-distended, no organomegaly Musculoskeletal: Pulses present and equal in all extremities, no peripheral edema Motor: no focal deficits noted Neurological: CN II-XII grossly intact, 4/5 strength of the right lower extremity Skin: Intact with no visualized rashes Psych: Normal affect and mood Limitations: no limitations Course Vital Signs 12/31/22 13:53 Temperature 98.5 F Pulse Rate 63 Respiratory 20 Rate Blood Pressure 105/76 O2 Sat by Pulse 97 Oximetry Medical Decision Making - Medical Decision Making Was pt. sent in by a medical professional or institution (, PA, GENERAL TECHNICIAN, urgent care, hospital, or care home...) When possible be specific @ -No Did you speak to anyone other than the patient for history (EMS, parent, family, police, friend...)? What history was obtained from this source @ -No Did you review nursing and triage notes (agree or disagree)? Why? @ -I reviewed and agree with nursing and triage notes Were old charts reviewed (outside hosp., previous admission, EMS record, old EKG, old radiological studies, urgent care reports/EKG's, care home records)? Report findings @ -Transfer documentations from [facility] was reviewed. Most recent neurology notes reviewed showing the patient's history of MS was admitted last month for MS exacerbation Differential Diagnosis (chest pain, altered mental status, abdominal pain women, abdominal pain men, vaginal bleeding, musculoskeletal, weakness, fever, dyspnea, syncope, headache, dizziness, GI bleed, back pain, seizure, CVA, palpatations, mental health)? @ - Differential CVA: Ischemic stroke, hemorrhagic stroke, brain tumor, atypical migraine, Wernicke's encephalopathy, seizure, multiple sclerosis, meningitis, encephalitis, hypoglycemia, Guillain-Aguila, electrolytes disturbance, myasthenia gravis.... This is not meant to be an all-inclusive list EKG interpreted by me (3pts min.). @ -None done X-rays interpreted by me (1pt min.). @ -None done CT interpreted by me (1pt min.). @ -None done U/S interpreted by me (1pt. min.). @ -None done What testing was considered but not performed or refused? (CT, X-rays, U/S, l abs)? Why? @ -None What meds were considered but not given or refused? Why? @ -None Did you discuss the management of the patient with other professionals (professionals i.e. , PA, GENERAL TECHNICIAN, lab, RT, psych nurse, public health social worker, wire transfer clerk, teacher, security officers and guards, rn case manager)? Give summary @ -Before meals discussed with Dr. Bailey prior to transfer to our facility. Case discussed with Dr. Morton regarding patient's clinical presentation for admission.Case discussed with Dr. Gilles Drake who reviewed. He will go and evaluate the patient and make recommendations. Was smoking cessation discussed for >3mins.? @ -No Was critical care preformed (if so, how long)? @ -No Were there social determinants of health that impacted care today? How? (Homelessness, low income, unemployed, alcoholism, drug addiction, t ransportation, low edu. Level, literacy, decrease access to med. care, correction, rehab)? @ -history of chronic pain Was there de-escalation of care discussed even if they declined (Discuss DNR or withdrawal of care, Hospice)? DNR status @ -No What co-morbidities impacted this encounter? (DM, HTN, Smoking, COPD, CAD, Cancer, CVA, ARF, Chemo, Hep., AIDS, mental health diagnosis, sleep apnea, morbid obesity)? @ -None Was patient admitted / discharged? Hospital course, mention meds given and route, prescriptions, significant lab abnormalities, going to OR and other pertinent info. @ -42 Year-old female transferred to our hospital from [facility] emergency department for admission for higher level of care to treat him as exacerbation. Vital signs are within acceptable limits. Patient received Dilaudid and 250 mg of IV soluMedrol prior to transfer. Patint admitted to [facility]. case discussed with applications systems analyst Neurology, Dr. Drake who will manage steroids administration Undiagnosed new problem with uncertain prognosis? @ -No Drug Therapy requiring intensive monitoring for toxicity (Heparin, Nitro, Insulin, Cardizem)? @ -No Were any procedures done? @ -No Diagnosis/symptom? Acute, or Chronic, or Acute on Chronic? Uncomplicated (without systemic symptoms) or Complicated (systemic symptoms)? @ -1. Multiple sclerosis exacerbation Side effects of treatment? @ -No Exacerbation, Progression, or Severe Exacerbation? @ -No Poses a threat to life or bodily function? How? (Chest pain, USA, NV, pneumonia, PE, COPD, DKA, ARF, appy, cholecystitis, CVA, Diverticulitis, Homicidal, Suicidal, threat to staff... and all critical care pts) @ -yes Disposition Clinical Impression: Multiple sclerosis Disposition: ADMITTED IP TO THIS HOSP Condition: Stable Decision Time: 14:45
[2022-12-31] MEDS ORDERED: oxyCODONE-APAP 5-325MG 1 EACH TAB PO PRN (14:31)
[2022-12-31] MEDS ORDERED: NALOXONE 0.4 MG/ML 1 ML VIAL IV PRN (14:31)
[2022-12-31] MEDS ORDERED: SODIUM CHLORIDE 0.9% 1,000 ML IV SCH (14:45)
[2022-12-31] MEDS ORDERED: methylPREDNISolone SOD SUCCIN 750 MG in SODIUM CHLORIDE 0.9% 250 ML IVPB STA (14:51)
--- NOTE | 2022-12-31 16:29 | P.HPIM ---
History of Present Illness H&P Date: 12/31/22 Patient is a 42-year-old female with history of multiple sclerosis, hypertension, migraine, seizure disorder, GERD, anxiety/depression, chronic pain, substance abuse, obesity presenting with neurological symptoms. She claims that she fell earlier today, and has been noticing some facial pain on the right side along with possible right-sided visual loss, and right upper and lower extremity pain. She claims that due to pain she was unable to move her right lower extremity and had a fall. Throughout her interview, vision constantly requesting for pain medications, and wanting to take IV pain medication and go home. Currently she denies any chest pain, shortness of breath, abdominal pain, nausea or vomiting, urinary or bowel complaints. She does claim that she will not be able to swallow oral medication, which is why she should be admitted. However, at the same time she was willing to eat her lunch. In the ED, temperature is 98.5, respiratory rate 20, pulse 63, blood pressure 105/76, 97% on room air. Laboratory workup not available. Patient was admitted for observation for possible MS exacerbation. Neurology was consulted. Pertinent positives and negatives as discussed in HPI, a complete review of systems was performed and all other systems are negative. Patient seen and examined at bedside. Vital signs reviewed General: nontoxic, no distress, appears at stated age, obese Derm: warm, dry Head: atraumatic, normocephalic, symmetric Eyes: EOMI, no lid lag, anicteric sclera, pupils equal round reactive to light ENT: Nose and ears atraumatic Neck: No thyromegaly, supple Mouth: no lip lesion, mucus membranes moist Cardiovascular: S1S2 reg, no murmur, no edema Lungs: clear to auscultation bilateral, no rhonchi, no rales, no wheeze, no accessory muscle use Abdominal: soft, nontender to palpation, no guarding, no appreciable organomegaly Ext: no gross muscle atrophy, muscle strength muscle strength 5 out of 5 in all 4 extremities, no contractures Neuro: CN II-XII grossly intact Psych: Alert, oriented, noncooperative Assessment/Plan: Active: Possible MS exacerbation -IV Solu-Medrol 750 mg once -Neurology consulted, personally discussed patient, patient to be discharged home on prednisone taper and follow-up with neurology -Pain control with Percocet 5 every 4 hours as needed Chronic: Hypertension Migraine Seizure disorder Anxiety/depression GERD Chronic pain Substance abuse Obesity The patient is admitted with an anticipated less than 2 midnight stay as observation status for evaluation of MS exacerbation. Surrogate decision-maker: Father CODE STATUS: Full Code DVT prophylaxis: Patient being discharge Anticipated discharge date: Today Anticipated discharge place: Home A total of 55 minutes was spent on the care of this complex patient more than 50% of the time was spent in counseling and care coordination. Past Medical History Past Medical History: Asthma, Fibromyalgia, GERD/Reflux, Hypertension, Musculoskeletal Disorder, Neurologic Disorder, Pneumonia, Seizure Disorder Additional Past Medical History / Comment(s): Multiple Sclerosis, angina, migraines, DJD, interstitial cystitis, UTI, PCOS, vit D deficiency, bilateral optic neuritis with visual problems, generalized chronic pain, numbness/tingling bilateral lower legs, tachycardia, c-diff 5-9-16, seizures from MS last one around 2016. ADHD. 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 PCOS. MS History of Any Multi-Drug Resistant Organisms: C-DIFF Date of last positivie culture/infection: 2016 MDRO Source:: stool Past Surgical History: Cholecystectomy, Orthopedic Surgery Additional Past Surgical History / Comment(s): Lt shoulder rotator cuff repair 06/06/14, arthroscopic left knee 2000 & 2002, left shoulder reconstruction Past Anesthesia/Blood Transfusion Reactions: No Reported Reaction Additional Past Anesthesia/Blood Transfusion Reaction / Comment(s): Pt has never recieved blood. Past Psychological History: Anxiety, Bipolar, Depression Smoking Status: Never smoker Past Alcohol Use History: Rare Past Drug Use History: None Reported - Past Family History Mother Family Medical History: No Reported History Additional Family Medical History / Comment(s): mother is healthy. Maternal grandmother had uterine cancer. Maternal grandfather had bladder cancer. Father Family Medical History: Hypertension Additional Family Medical History / Comment(s): Paternal grandfather had an NM. Medications and Allergies Home Medications Medication Instructions Recorded Confirmed Type Ipratropium/Albuterol Sulfate 2 puff INHALATION RT-BID 12/09/13 12/31/22 History [Combivent Respimat Inhaler] Albuterol Inhaler [Ventolin Hfa 2 puff INHALATION RT-QID PRN 03/04/20 12/31/22 History Inhaler] Dextroamphetamine/Amphetamine 30 mg PO DAILY PRN 10/01/20 12/31/22 History [Adderall] oxyCODONE HCL/ACETAMINOPHEN 1 tab PO TID PRN 08/07/21 12/31/22 History [Percocet 10-325 mg] Ondansetron Odt [Zofran ODT] 4 mg PO Q8HR PRN #20 tab 08/10/21 12/31/22 Rx lisinopriL [Zestril] 20 mg PO DAILY 30 Days #30 tab 08/10/21 12/31/22 Rx SUMAtriptan succinate 100 mg PO BID PRN 11/30/22 12/31/22 History diazePAM 10 mg PO DAILY PRN 11/30/22 12/31/22 History amLODIPine [Norvasc] 5 mg PO DAILY #30 tab 12/04/22 12/31/22 Rx Morphine Sulfate ER [Ms Contin] 15 mg PO DAILY 12/31/22 12/31/22 History Allergies Allergy/AdvReac Type Severity Reaction Status Date / Time amoxicillin [Amoxicillin] Allergy Severe Anaphylaxis, Verified 12/31/22 15:04 seizures ciprofloxacin [From Cipro] Allergy Severe Rash/Hives, Verified 12/31/22 15:04 seizures codeine phosphate Allergy Unknown Rash/Hives Verified 12/31/22 15:04 [From Tylenol-Codeine #3] bee venom protein (honey bee) Allergy Anaphylaxis Verified 12/31/22 15:04 cefuroxime axetil Allergy Rash/Hives Verified 12/31/22 15:04 [From Ceftin] gabapentin [From Neurontin] Allergy Swelling Verified 12/31/22 15:04 ketorolac [From Toradol] Allergy Rash/Hives Verified 12/31/22 15:04 latex Allergy Rash/Hives Verified 12/31/22 15:04 NSAIDS (Non-Steroidal Allergy Rash/Hives/Lip Verified 12/31/22 15:04 Anti-Inflamma Swelling sulfamethoxazole Allergy Itching Verified 12/31/22 15:04 [From Bactrim] trimethoprim [From Bactrim] Allergy Itching Verified 12/31/22 15:04 Physical Exam Vitals: Vital Signs Temp Pulse Resp BP Pulse Ox 12/31/22 13:53 98.5 F 63 20 105/76 97 Intake and Output 12/31/22 12/31/22 12/31/22 06:59 14:59 22:59 Other: Weight 81.647 kg
--- NOTE | 2022-12-31 16:33 | P.DS ---
Providers Date of admission: 12/31/22 14:32 Expected date of discharge: 12/31/22 Attending physician: Mina Saavedra MD Consults: 12/31/22 13:47 Consult Physician Routine Consulting Provider: Gilles Drake Consult Reason/Comments: MS exacerbation Do you want consulting provider notified?: Yes Primary care physician: Soto Mukherjee MD Hospital Course: Discharge Diagnosis: MS exacerbation Chronic pain Substance abuse Hospital Course: 42-year-old female with history of multiple sclerosis, hypertension, migraine, seizure disorder, GERD, anxiety/depression, chronic pain, substance abuse, obesity presenting with neurological symptoms. She claims that she fell earlier today, and has been noticing some facial pain on the right side along with possible right-sided visual loss, and right upper and lower extremity pain. She claims that due to pain she was unable to move her right lower extremity and had a fall. Throughout her interview, vision constantly requesting for pain medications, and wanting to take IV pain medication and go home. Currently she denies any chest pain, shortness of breath, abdominal pain, nausea or vomiting, urinary or bowel complaints. She does claim that she will not be able to swallow oral medication, which is why she should be admitted. However, at the same time she was willing to eat her lunch. In the ED, temperature is 98.5, re spiratory rate 20, pulse 63, blood pressure 105/76, 97% on room air. Laboratory workup not available. Patient was admitted for observation for possible MS exacerbation. Neurology was consulted. Neurology recommended prednisone taper, and discharge home. Patient will follow-up with her neurologist. Patient seen and examined at bedside. Vital signs reviewed and stable. General: nontoxic, no distress, appears at stated age, obese Derm: warm, dry Head: atraumatic, normocephalic, symmetric Eyes: EOMI, no lid lag, anicteric sclera Mouth: no lip lesion, mucus membranes moist Cardiovascular: S1S2 reg, no murmur Lungs: CTA bilateral, no rhonchi, no rales , no accessory muscle use Abdominal: soft, nontender to palpation, no guarding, no appreciable organomegaly Ext: no gross muscle atrophy, no edema, no contractures Neuro: CN II-XI grossly intact, no focal neuro deficits Psych: Alert, oriented, noncooperative A total of 33 minutes of time were spent preparing this complex discharge summary. Patient was discharged on 12/31/22 at 1631. Patient Condition at Discharge: Stable Plan - Discharge Summary New Discharge Prescriptions: New predniSONE 10 mg PO DAILY #30 tab Continue Ipratropium/Albuterol Sulfate [Combivent Respimat Inhaler] 2 puff INHALATION RT-BID Albuterol Inhaler [Ventolin Hfa Inhaler] 2 puff INHALATION RT-QID PRN PRN Reason: Shortness Of Breath Dextroamphetamine/Amphetamine [Adderall] 30 mg PO DAILY PRN PRN Reason: MS symptoms Ondansetron Odt [Zofran ODT] 4 mg PO Q8HR PRN #20 tab PRN Reason: Nausea diazePAM 10 mg PO DAILY PRN PRN Reason: Anxiety Morphine Sulfate ER [Ms Contin] 15 mg PO DAILY oxyCODONE HCL/ACETAMINOPHEN [Percocet 10-325 mg] 1 tab PO TID PRN PRN Reason: Pain lisinopriL [Zestril] 20 mg PO DAILY 30 Days #30 tab SUMAtriptan succinate 100 mg PO BID PRN PRN Reason: Migraine Headache amLODIPine [Norvasc] 5 mg PO DAILY #30 tab Discharge Medication List Ipratropium/Albuterol Sulfate [Combivent Respimat Inhaler] 2 puff INHALATION RT- BID 12/09/13 [History] Albuterol Inhaler [Ventolin Hfa Inhaler] 2 puff INHALATION RT-QID PRN 03/04/20 [History] Dextroamphetamine/Amphetamine [Adderall] 30 mg PO DAILY PRN 10/01/20 [History] oxyCODONE HCL/ACETAMINOPHEN [Percocet 10-325 mg] 1 tab PO TID PRN 08/07/21 [History] Ondansetron Odt [Zofran ODT] 4 mg PO Q8HR PRN #20 tab 08/10/21 [Rx] lisinopriL [Zestril] 20 mg PO DAILY 30 Days #30 tab 08/10/21 [Rx] SUMAtriptan succinate 100 mg PO BID PRN 11/30/22 [History] diazePAM 10 mg PO DAILY PRN 11/30/22 [History] amLODIPine [Norvasc] 5 mg PO DAILY #30 tab 12/04/22 [Rx] Morphine Sulfate ER [Ms Contin] 15 mg PO DAILY 12/31/22 [History] predniSONE 10 mg PO DAILY #30 tab 12/31/22 [Rx] Follow up Appointment(s)/Referral(s): Soto Mukherjee MD [Primary Care Provider] - 1-2 days Patient Instructions/Handouts: Multiple Sclerosis (DC) Activity/Diet/Wound Care/Special Instructions: Please follow up with your neurologist. Discharge Disposition: HOME SELF-CARE
--- NOTE | 2022-12-31 18:35 | P.CNNES ---
History of Present Illness Consult date: 12/31/22 Requesting physician: Sylvester Garcia Reason for Consult: MS exacerbation History of Present Illness: This is a 42-year-old woman with history of relapsing remitting MS, chronic pain, substance abuse was answered from [facility] for MS exacerbation. Patient is known to our neurology team and she was seen last by me about a month ago for probable MS exacerbation and she had the extensive workup in which she had MRI of the brain and had redo of IV Solu-Medrol. Patient stated that she fell earlier today and noticed some weakness over the right side with some blurry vision over the right side. He initially presented to [facility] and she opted out of being transferred to [facility] and instead wanted to be transferred here. She received IV Solu-Medrol 250 mg once at [facility] as well as Dilaudid. She stated that she has an appointment with her neurologist Dr. Olivares's team tomorrow. The ED physician notified me that upon him seen her was requesting for pain medication. Then the staff notified me that the she was sleeping in the room and seems comfortable. Upon seeing her is also requesting pain medication. As well as she asked the primary team for pain medication as well. As stated earlier the patient was seen in our facility about a month ago for probable MS exacerbation. Please refer to our notes for further details. Review of Systems Review of system: The 12 point system was reviewed and apparent positive and negative per HPI. Past Medical History Past Medical History: Asthma, Fibromyalgia, GERD/Reflux, Hypertension, Musculoskeletal Disorder, Neurologic Disorder, Pneumonia, Seizure Disorder Additional Past Medical History / Comment(s): Multiple Sclerosis, angina, migraines, DJD, interstitial cystitis, UTI, PCOS, vit D deficiency, bilateral optic neuritis with visual problems, generalized chronic pain, numbness/tingling bilateral lower legs, tachycardia, c-diff 5-9-16, seizures from MS last one around 2017. ADHD. 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 PCOS. MS History of Any Multi-Drug Resistant Organisms: C-DIFF Date of last positivie culture/infection: 2016 MDRO Source:: stool Past Surgical History: Cholecystectomy, Orthopedic Surgery Additional Past Surgical History / Comment(s): Lt shoulder rotator cuff repair 06/06/14, arthroscopic left knee 2000 & 2002, left shoulder reconstruction Past Anesthesia/Blood Transfusion Reactions: No Reported Reaction Additional Past Anesthesia/Blood Transfusion Reaction / Comment(s): Pt has never recieved blood. Past Psychological History: Anxiety, Bipolar, Depression Smoking Status: Never smoker Past Alcohol Use History: Rare Past Drug Use History: None Reported - Past Family History Mother Family Medical History: No Reported History Additional Family Medical History / Comment(s): mother is healthy. Maternal grandmother had uterine cancer. Maternal grandfather had bladder cancer. Father Family Medical History: Hypertension Additional Family Medical History / Comment(s): Paternal grandfather had an MN. Medications and Allergies Home Medications Medication Instructions Recorded Confirmed Type Ipratropium/Albuterol Sulfate 2 puff INHALATION RT-BID 12/09/13 12/31/22 History [Combivent Respimat Inhaler] Albuterol Inhaler [Ventolin Hfa 2 puff INHALATION RT-QID PRN 03/04/20 12/31/22 History Inhaler] Dextroamphetamine/Amphetamine 30 mg PO DAILY PRN 10/01/20 12/31/22 History [Adderall] oxyCODONE HCL/ACETAMINOPHEN 1 tab PO TID PRN 08/07/21 12/31/22 History [Percocet 10-325 mg] Ondansetron Odt [Zofran ODT] 4 mg PO Q8HR PRN #20 tab 08/10/21 12/31/22 Rx lisinopriL [Zestril] 20 mg PO DAILY 30 Days #30 tab 08/10/21 12/31/22 Rx SUMAtriptan succinate 100 mg PO BID PRN 11/30/22 12/31/22 History diazePAM 10 mg PO DAILY PRN 11/30/22 12/31/22 History amLODIPine [Norvasc] 5 mg PO DAILY #30 tab 12/04/22 12/31/22 Rx Morphine Sulfate ER [Ms Contin] 15 mg PO DAILY 12/31/22 12/31/22 History predniSONE 10 mg PO DAILY #30 tab 12/31/22 Rx Allergies Allergy/AdvReac Type Severity Reaction Status Date / Time amoxicillin [Amoxicillin] Allergy Severe Anaphylaxis, Verified 12/31/22 15:04 seizures ciprofloxacin [From Cipro] Allergy Severe Rash/Hives, Verified 12/31/22 15:04 seizures codeine phosphate Allergy Unknown Rash/Hives Verified 12/31/22 15:04 [From Tylenol-Codeine #3] bee venom protein (honey bee) Allergy Anaphylaxis Verified 12/31/22 15:04 cefuroxime axetil Allergy Rash/Hives Verified 12/31/22 15:04 [From Ceftin] gabapentin [From Neurontin] Allergy Swelling Verified 12/31/22 15:04 ketorolac [From Toradol] Allergy Rash/Hives Verified 12/31/22 15:04 latex Allergy Rash/Hives Verified 12/31/22 15:04 NSAIDS (Non-Steroidal Allergy Rash/Hives/Lip Verified 12/31/22 15:04 Anti-Inflamma Swelling sulfamethoxazole Allergy Itching Verified 12/31/22 15:04 [From Bactrim] trimethoprim [From Bactrim] Allergy Itching Verified 12/31/22 15:04 Physical Examination - Vital Signs Vital Signs: Vital Signs Temp Pulse Resp BP Pulse Ox 12/31/22 13:53 98.5 F 63 20 105/76 97 Intake and Output 12/31/22 12/31/22 12/31/22 06:59 14:59 22:59 Other: Weight 81.647 kg GENERAL: The patient is lying in bed and is not in acute distress. She appears comfortable. CHEST: No edema in lowers LUNG: Clear to auscultation bilaterally no wheezing noted throughout. Not labored breathing. ABDOMEN/GI: Bowel sounds present in all 4 quadrants. No tenderness to palpation throughout. NEUROLOGICAL: Higher mental function: The patient is awake, alert, oriented to self, place and time. Patient is following commands. No aphasia and no neglect. Cranial nerves: The pupils are round, equal and reactive to light and accommodation. Visual pacheco are full to confrontation throughout. Extraocular movement is intact no nystagmus is noted. Facial sensation is normal to touch throughout. The facial strength is normal throughout. Hearing is normal bilaterally to hand rub. Tongue is midline and moved [id number] without any difficulty. No dysarthria is noted. Shoulder shrug is normal bilaterally. Motor: The strength is right lower extremity is strength was effort related and with motivation was improving. Had at least 4+. Otherwise 5 over 5 throughout left side. Normal tone and bulk. Cerebellum: Normal finger to nose bilaterally. Sensation: States decrease to touch over the right side. Reflexes (right/left): 2+ throughout. Plantars are mute bilaterally. Assessment and Plan Assessment: This is a 42-year-old woman with history of relapsing remitting MS was transferred from [facility] for possible MS exacerbation. She stated that she had a fall and has right-sided weakness with some visual disturbance as well as numbness over the right side. Patient has been requesting pain medication to different providers in our facility Right-sided weakness with numbness: On examination strength is effort related and patient has pain seeking behavioral: I doubt this is MS exacerbation. But cannot exclusively exclude it History of relapsing remitting MS and was last seen in our facility about a month ago in which she had 3 days of IV steroids and had MRI the brain Chronic pain History of recurrent UTI History of right occipital neuralgia Substance abuse Obesity Plan: She received 250 mg of IV Solu-Medrol. I gave her an additional 750 mg for today. Initially the patient was in agreement L5 tapering dose of by mouth steroids as an outpatient and was to follow-up with her neurologist tomorrow (Dr. Olivares's team). Then later was notified that she did not want to be discharged. I personally went and the I spoke with her and I notified her that the she can be in our facility for the 3 days of IV steroids and then she was in agreement. But then it appears she is in agreement of being discharged home and that she'll follow-up with her neurologist as an outpatient. Plan discussed with the primary team, ED team of the patient. Thank you for the consultation Time with Patient: Greater than 30
== END 2022-12-31 20:29 | disposition home or self-care (01) | DRG 59 ==
LOC: EC 13:44 → 5NMEDONC 14:32
PROVIDERS: ADMIT Student in an Organized Health Care Education/Training Program; ATTEND Student in an Organized Health Care Education/Training Program
DX: G35 Multiple sclerosis (principal); H46.9 Unspecified optic neuritis; E66.9 Obesity, unspecified; K21.9 Gastro-esophageal reflux disease without esophagitis; G89.29 Other chronic pain; F41.9 Anxiety disorder, unspecified; G40.909 Epilepsy, unspecified, not intractable, without status epilepticus; F31.9 Bipolar disorder, unspecified; I10 Essential (primary) hypertension; M79.7 Fibromyalgia; J45.909 Unspecified asthma, uncomplicated; E28.2 Polycystic ovarian syndrome; R53.1 Weakness; F90.9 Attention-deficit hyperactivity disorder, unspecified type; Z87.01 Personal history of pneumonia (recurrent); N30.10 Interstitial cystitis (chronic) without hematuria; Z87.440 Personal history of urinary (tract) infections; E55.9 Vitamin D deficiency, unspecified; M19.90 Unspecified osteoarthritis, unspecified site; W19.XXXA Unspecified fall, initial encounter; Z79.899 Other long term (current) drug therapy; Z68.29 Body mass index [BMI] 29.0-29.9, adult; Z88.1 Allergy status to other antibiotic agents; Z88.5 Allergy status to narcotic agent; Z88.2 Allergy status to sulfonamides; Z91.030 Bee allergy status; Z90.49 Acquired absence of other specified parts of digestive tract; Z87.19 Personal history of other diseases of the digestive system

== ENCOUNTER 2023-11-23 18:51 | Inpatient (IN) | payer MEDICARE, OTHER ==
[2023-11-23 19:12] LABS: ABG Base Excess 3.2 mmol/L; ABG HCO3 27 mmol/L (21-25); ABG PCO2 38 mmHg (35-45); ABG PH 7.46 (7.35-7.45); ABG PO2 81 mmHg (83-108); ABG TCO2 28 mmol/L (19-24); Allen Test Performed? Yes
[2023-11-23 19:15] LABS: ABG Oxygen Saturation 95.5 % (94-97)
[2023-11-23] MEDS: IPRATROPIUM-ALBUTEROL 3 ML NEB INHALATION STA (19:16)
[2023-11-23] MEDS: ALBUTEROL NEBULIZED 2.5 MG/3 ML INHALATION STA (19:16)
[2023-11-23 19:22] LABS: ALT 64 U/L (4-34); AST 69 U/L (14-36); African American GFR (CKD) 85 (>60 ml/min/1.73 sqM); Albumin 2.8 g/dL (3.5-5.0); Alkaline Phosphatase 73 U/L (38-126); Anion Gap 14 mmol/L; Blood Urea Nitrogen 44 mg/dL (7-17); Calcium 8.1 mg/dL (8.4-10.2); Carbon Dioxide 23 mmol/L (22-30); Chloride 92 mmol/L (98-107); Glucose 121 mg/dL (74-99); Magnesium 2.1 mg/dL (1.6-2.3); Non-African American GFR(CKD) 74 (>60 ml/min/1.73 sqM); Potassium 3.9 mmol/L (3.5-5.1); Sodium 129 mmol/L (137-145); Total Bilirubin 1.6 mg/dL (0.2-1.3); Total Protein 5.7 g/dL (6.3-8.2)
[2023-11-23 19:27] LABS: HCT 31.9 % (34.0-46.0); HGB 10.3 gm/dL (11.4-16.0); MCH 29.3 pg (25.0-35.0); MCHC 32.4 g/dL (31.0-37.0); MCV 90.4 fL (80.0-100.0); Mean Platelet Volume 8.6; Platelet Count 490 k/uL (150-450); RBC 3.53 m/uL (3.80-5.40); RDW 13.2 % (11.5-15.5); WBC 23.8 k/uL (3.8-10.6)
[2023-11-23 19:29] LABS: INR 1.3 (<1.2); Partial Thromboplastin Time 24.3 sec (22.0-30.0); Prothrombin Time 13.2 sec (10.0-12.5)
[2023-11-23 19:30] LABS: NT-Pro-B-Type Natriuretic Pept 313 pg/mL
--- NOTE | 2023-11-23 19:30 | ED ---
General Adult HPI - General Chief complaint: Shortness of Breath Stated complaint: MOISES Time Seen by Provider: 11/23/23 18:54 Source: patient, EMS, RN notes reviewed, old records reviewed Mode of arrival: EMS Limitations: no limitations - History of Present Illness Initial comments: 43-year-old female presenting from the local correction for evaluation of chest pain and dyspnea. Patient has had symptoms for approximately 3 weeks. She states she has had right-sided lateral chest pain, difficulty breathing. She was noted to be tachycardic and hypoxic by correction staff and paramedics. She has had subjective fever and chills. She has had cough. History of asthma and MS. Patient is on CPAP for transport, history is limited by respiratory distress - Related Data Home Medications Medication Instructions Recorded Confirmed Acetaminophen [Tylenol] 975 mg PO BID PRN 11/23/23 11/23/23 Baclofen [Lioresal] 10 mg PO BID PRN 11/23/23 11/23/23 FLUoxetine HCL [PROzac] 20 mg PO DAILY 11/23/23 11/23/23 Loratadine [Claritin] 10 mg PO DAILY 11/23/23 11/23/23 hydrOXYzine pamoate [Vistaril] 50 mg PO BID 11/23/23 11/23/23 lisinopriL [Zestril] 10 mg PO DAILY 11/23/23 11/23/23 Allergies Allergy/AdvReac Type Severity Reaction Status Date / Time amoxicillin [Amoxicillin] Allergy Severe Anaphylaxis, Verified 11/23/23 19:47 seizures ciprofloxacin [From Cipro] Allergy Severe Rash/Hives, Verified 11/23/23 19:47 seizures codeine phosphate Allergy Unknown Rash/Hives Verified 11/23/23 19:47 [From Tylenol-Codeine #3] bee venom protein (honey bee) Allergy Anaphylaxis Verified 11/23/23 19:47 cefuroxime axetil Allergy Rash/Hives Verified 11/23/23 19:47 [From Ceftin] gabapentin [From Neurontin] Allergy Swelling Verified 11/23/23 19:47 ketorolac [From Toradol] Allergy Rash/Hives Verified 11/23/23 19:47 latex Allergy Rash/Hives Verified 11/23/23 19:47 NSAIDS (Non-Steroidal Allergy Rash/Hives/Lip Verified 11/23/23 19:47 Anti-Inflamma Swelling sulfamethoxazole Allergy Itching Verified 11/23/23 19:47 [From Bactrim] trimethoprim [From Bactrim] Allergy Itching Verified 11/23/23 19:47 Review of Systems ROS Statement: Those systems with pertinent positive or pertinent negative responses have been documented in the HPI. ROS Other: All systems not noted in ROS Statement are negative. Past Medical History Past Medical History: Asthma, Fibromyalgia, GERD/Reflux, Hypertension, Musculoskeletal Disorder, Neurologic Disorder, Pneumonia, Seizure Disorder Additional Past Medical History / Comment(s): Multiple Sclerosis, angina, migraines, DJD, interstitial cystitis, UTI, PCOS, vit D deficiency, bilateral optic neuritis with visual problems, generalized chronic pain, numbness/tingling bilateral lower legs, tachycardia, c-diff 5-9-16, seizures from MS last one around 2016. ADHD. 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 PCOS. MS History of Any Multi-Drug Resistant Organisms: C-DIFF Date of last positivie culture/infection: 2016 MDRO Source:: stool Past Surgical History: Cholecystectomy, Orthopedic Surgery Additional Past Surgical History / Comment(s): Lt shoulder rotator cuff repair 06/06/14, arthroscopic left knee 2000 & 2002, left shoulder reconstruction Past Anesthesia/Blood Transfusion Reactions: No Reported Reaction Additional Past Anesthesia/Blood Transfusion Reaction / Comment(s): Pt has never recieved blood. Past Psychological History: Anxiety, Bipolar, Depression Smoking Status: Never smoker Past Alcohol Use History: Rare Past Drug Use History: None Reported - Past Family History Mother Family Medical History: No Reported History Additional Family Medical History / Comment(s): mother is healthy. Maternal grandmother had uterine cancer. Maternal grandfather had bladder cancer. Father Family Medical History: Hypertension Additional Family Medical History / Comment(s): Paternal grandfather had an [place]. General Exam Limitations: no limitations General appearance: alert, in distress Head exam: Present: atraumatic, normocephalic Eye exam: Present: normal appearance, PERRL ENT exam: Present: normal exam Respiratory exam: Present: respiratory distress, rhonchi, decreased breath so unds (On the left) Cardiovascular Exam: Present: normal rhythm, tachycardia GI/Abdominal exam: Present: soft. Absent: distended, tenderness Extremities exam: Present: normal inspection, normal capillary refill. Absent: pedal edema Neurological exam: Present: alert, oriented X3, CN II-XII intact. Absent: motor sensory deficit Psychiatric exam: Present: anxious Skin exam: Present: diaphoretic, pallor Course Vital Signs 11/23/23 11/23/23 11/23/23 18:55 19:03 19:37 Temperature 101.4 F H Pulse Rate 155 H 151 H Respiratory 30 H Rate Blood Pressure 122/87 O2 Sat by Pulse 100 Oximetry Fraction of 100 Inspired Oxygen (FIO2) 11/23/23 11/23/23 11/23/23 19:42 19:49 19:52 Temperature Pulse Rate 149 H 149 H Respiratory 42 H Rate Blood Pressure 107/69 O2 Sat by Pulse 99 Oximetry Fraction of 100 Inspired Oxygen (FIO2) Procedures - Chest Tube Insertion Consent Obtained: emergent situation Side of Procedure: left Indication: Pleural effusion Placed on monitor/pulse oximetry: Yes Site Prep: Povidone-Iodine, Sterile Drape Applied Local Anesthesia: Lidocaine 1% Amount (mLs): 10 Insertion Site: 5th Intercostal Space, Midaxillary Scalpel: #11 Open into Pleural Space Using: Trocar Tube Size (Angolan): 28 Returns: Air, Pus Sutured in Place: Yes Type of Suture: Nylon Dressing Applied: Petroleum Gauze Attached to Suction: Yes Type of Suction: Pleuravac Repeat X-ray Results: Lung Inflated Patient Tolerated Procedure: well Medical Decision Making - Medical Decision Making Was pt. sent in by a medical professional or institution ([facility], UNIX DEVELOPER, urgent care, hospital, or alf...) When possible be specific @ -No Did you speak to anyone other than the patient for history (EMS, parent, family, police, friend...)? What history was obtained from this source @ -No Did you review nursing and triage notes (agree or disagree)? Why? @ -I reviewed and agree with nursing and triage notes Were old charts reviewed (outside hosp., previous admission, EMS record, old EKG, old radiological studies, urgent care reports/EKG's, alf records)? Report findings @ -No old charts were reviewed Differential Diagnosis differential Dyspnea: Coronary syndrome, arrhythmia, tamponade, asthma, COPD, pulmonary embolism, pneumonia, pneumothorax, pulmonary effusion, anaphylaxis, diabetic ketoacidosis, flailed chest, pulmonary contusion, diaphragmatic rupture, anemia, neuromuscular, this is not meant to be an all-inclusive list. EKG interpreted by me (3pts min.). @ -Sinus tachycardia rate of 156, KS interval 108, QRS duration 72, QTc 386. X-rays interpreted by me (1pt min.). @ -[X-ray showing bilateral consolidated pneumonia with left-sided upper lobe pneumothorax. Post chest tube 1 view showing satisfactory placement of left-si ded chest tube with improved aeration of the lung. CT interpreted by me (1pt min.). @ -CT of the chest showing bilateral pleural effusion, bilateral consolidative pneumonia, bilateral pneumothoraces U/S interpreted by me (1pt. min.). @ -[None done What testing was considered but not performed or refused? (CT, X-rays, U/S, labs)? Why? @ -None What meds were considered but not given or refused? Why? @ -None Did you discuss the management of the patient with other professionals (professionals i.e. , PA, UNIX DEVELOPER, lab, RT, psych nurse, social work administrator, health care administrator, teacher, [employer] revenue officer, porter sample case)? Give summary @Discussed with Dr. Powell in covering for the ICU Case discussed with the radiologist Dr. Sanchez, case discussed with the admitting physician Dr. Dove Was smoking cessation discussed for >3mins.? @ -No Was critical care preformed (if so, how long)? @ -Yes, 35 minutes Were there social determinants of health that impacted care today? How? (Homelessness, low income, unemployed, alcoholism, drug addiction, transportation, low edu. Level, literacy, decrease access to med. care, correction, rehab)? @ -No Was there de-escalation of care discussed even if they declined (Discuss DNR or withdrawal of care, Hospice)? DNR status @ -No What co-morbidities impacted this encounter? (DM, HTN, Smoking, COPD, CAD, Cancer, CVA, ARF, Chemo, Hep., AIDS, mental health diagnosis, sleep apnea, mo rbid obesity)? @ -MS, asthma Was patient admitted / discharged? Hospital course, mention meds given and route, prescriptions, significant lab abnormalities, going to OR and other pertinent info. @ -43-year-old female presenting in extremis, hypoxic, respiratory failure, febrile tachycardic. Patient has minimal air entry on the left. Chest x-ray shows bilateral pneumothoraces, bilateral consolidated pneumonia and air-fluid levels. CT confirms large pleural effusion and large pneumothorax on the left with to a lesser degree on the right. Patient has white blood cell count 25,000. She is hyponatremic. She has a lactic acidosis. She is started on azithromycin and cefepime as well as vancomycin. Chest tube was placed in the emergency department which gives cl pus and air. Undiagnosed new problem with uncertain prognosis? @ -No Drug Therapy requiring intensive monitoring for toxicity (Heparin, Nitro, Insulin, Cardizem)? @ -No Were any procedures done? @Yes, chest tube on the left Diagnosis/symptom? @ -[Empyema, pneumothorax, consolidated pneumonia, sepsis Acute, or Chronic, or Acute on Chronic? @ -Acute Uncomplicated (without systemic symptoms) or Complicated (systemic symptoms)? @ -Complicated Side effects of treatment? @ -No Exacerbation, Progression, or Severe Exacerbation? @ -No Poses a threat to life or bodily function? How? (Chest pain, USA, SC, pneumonia, PE, COPD, DKA, ARF, appy, cholecystitis, CVA, Diverticulitis, Homicidal, Suicidal, threat to staff... and all critical care pts) @ -Yes, sepsis, pneumothorax - Lab Data Result diagrams: 11/23/23 18:58 11/23/23 18:58 Lab Results 11/23/23 11/23/23 11/23/23 Range/Units 18:58 18:58 18:58 WBC 23.8 H (3.8-10.6) k/uL RBC 3.53 L (3.80-5.40) m/uL Hgb 10.3 L (11.4-16.0) gm/dL Hct 31.9 L (34.0-46.0) % MCV 90.4 (80.0-100.0) fL MCH 29.3 (25.0-35.0) pg MCHC 32.4 (31.0-37.0) g/dL RDW 13.2 (11.5-15.5) % Plt Count 490 H (150-450) k/uL MPV 8.6 Neutrophils % (Manual) 97 % Band Neuts % (Manual) 1 % Lymphocytes % (Manual) 2 % Neutrophils # (Manual) 23.30 H (1.3-7.7) k/uL Lymphocytes # (Manual) 0.48 L (1.0-4.8) k/uL Nucleated RBCs 0 (0-0) /100 WBC Manual Slide Review Performed RBC Morphology Normal PT 13.2 H (10.0-12.5) sec INR 1.3 H (<1.2) APTT 24.3 (22.0-30.0) sec D-Dimer 4.66 H (<0.60) mg/L FEU Sample Site ABG pH (7.35-7.45) ABG pCO2 (35-45) mmHg ABG pO2 (83-108) mmHg ABG HCO3 (21-25) mmol/L ABG Total CO2 (19-24) mmol/L ABG O2 Saturation (94-97) % ABG Base Excess mmol/L Clay Test FiO2 % Sodium 129 L (137-145) mmol/L Potassium 3.9 (3.5-5.1) mmol/L Chloride 92 L (98-107) mmol/L Carbon Dioxide 23 (22-30) mmol/L Anion Gap 14 mmol/L BUN 44 H (7-17) mg/dL Creatinine 0.96 (0.52-1.04) mg/dL Est GFR (CKD-EPI)AfAm 85 (>60 ml/min/1.73 sqM) Est GFR (CKD-EPI)NonAf 74 (>60 ml/min/1.73 sqM) Glucose 121 H (74-99) mg/dL Plasma Lactic Acid Tom (0.7-2.0) mmol/L Calcium 8.1 L (8.4-10.2) mg/dL Magnesium 2.1 (1.6-2.3) mg/dL Total Bilirubin 1.6 H (0.2-1.3) mg/dL AST 69 H (14-36) U/L ALT 64 H (4-34) U/L Alkaline Phosphatase 73 (38-126) U/L Troponin I (0.000-0.034) ng/mL NT-Pro-B Natriuret Pep 313 pg/mL Total Protein 5.7 L (6.3-8.2) g/dL Albumin 2.8 L (3.5-5.0) g/dL 04/14/24 04/14/24 04/14/24 Range/Units 18:58 18:58 19:09 WBC (3.8-10.6) k/uL RBC (3.80-5.40) m/uL Hgb (11.4-16.0) gm/dL Hct (34.0-46.0) % MCV (80.0-100.0) fL MCH (25.0-35.0) pg MCHC (31.0-37.0) g/dL RDW (11.5-15.5) % Plt Count (150-450) k/uL MPV Neutrophils % (Manual) % Band Neuts % (Manual) % Lymphocytes % (Manual) % Neutrophils # (Manual) (1.3-7.7) k/uL Lymphocytes # (Manual) (1.0-4.8) k/uL Nucleated RBCs (0-0) /100 WBC Manual Slide Review RBC Morphology PT (10.0-12.5) sec INR (<1.2) APTT (22.0-30.0) sec D-Dimer (<0.60) mg/L FEU Sample Site Right Radial ABG pH 7.46 H (7.35-7.45) ABG pCO2 38 (35-45) mmHg ABG pO2 81 L (83-108) mmHg ABG HCO3 27 H (21-25) mmol/L ABG Total CO2 28 H (19-24) mmol/L ABG O2 Saturation 95.5 (94-97) % ABG Base Excess 3.2 mmol/L Clay Test Yes FiO2 100 % Sodium (137-145) mmol/L Potassium (3.5-5.1) mmol/L Chloride (98-107) mmol/L Carbon Dioxide (22-30) mmol/L Anion Gap mmol/L BUN (7-17) mg/dL Creatinine (0.52-1.04) mg/dL Est GFR (CKD-EPI)AfAm (>60 ml/min/1.73 sqM) Est GFR (CKD-EPI)NonAf (>60 ml/min/1.73 sqM) Glucose (74-99) mg/dL Plasma Lactic Acid Tom 2.8 H* (0.7-2.0) mmol/L Calcium (8.4-10.2) mg/dL Magnesium (1.6-2.3) mg/dL Total Bilirubin (0.2-1.3) mg/dL AST (14-36) U/L ALT (4-34) U/L Alkaline Phosphatase (38-126) U/L Troponin I <0.012 (0.000-0.034) ng/mL NT-Pro-B Natriuret Pep pg/mL Total Protein (6.3-8.2) g/dL Albumin (3.5-5.0) g/dL Critical Care Time Critical Care Time: Yes Total Critical Care Time: 35 Disposition Clinical Impression: Pneumothorax, Pneumonia, Respiratory failure Disposition: ADMITTED IP TO THIS [facility] Condition: Serious Is patient prescribed a controlled substance at d/c from ED?: No Referrals: Soto Mukherjee MD [Primary Care Provider] - 1-2 days Time of Disposition: 20:51
[2023-11-23] MEDS: methylPREDNISolone SOD SUCCI 125 MG/2 ML VIAL IV STA (19:47)
--- NOTE | 2023-11-23 19:55 | CT ---
EXAMINATION TYPE: CT angio chest, XR chest 1V portable CT DLP: 1110.6 mGycm, Automated exposure control for dose reduction was used. DATE OF EXAM: 11/23/2023 7:39 PM COMPARISON: Chest radiograph from same day. Multiple CTs of the chest with most recent on . CLINICAL INDICATION:Female, 43 years old with history of MOISES; dyspnea TECHNIQUE/CONTRAST: CTA scan of the thorax is performed with IV Contrast, patient injected with 100ml mL of Isovue 370, M IP images are created and reviewed these are created on a separate workstation.. Frontal portable radiograph of the chest. FINDINGS: Extremely limited exam due to motion. Pulmonary Artery: There is no evidence for a filling defect within the pulmonary vasculature to sugge st acute pulmonary embolism. The pulmonary artery is of normal size. Lungs/Pleura: Bilateral hydropneumothoraces. There is a small to moderate right and large left pneumo thorax. Small right and moderate left pleural effusion. There is near complete collapse of the left l angel with scattered areas tethered along the pleura. The right lung also demonstrates consolidation ch anges within the right middle lobe. There is few scattered nodular densities throughout the right anupam g. The right middle lobe is attached along the pleura on the right. There is extreme tenting of the l eft diaphragm likely due to atelectasis. Airway: Large airways are patent. Heart: Heart is within normal limits for size. Vasculature: No evidence of aortic aneurysm. Scattered atherosclerotic disease. Mediastinum: No gross evidence of adenopathy. Musculoskeletal: No acute osseous abnormalities Soft Tissues: Unremarkable. Lower neck: No significant findings. Upper Abdomen: No significant findings. IMPRESSION: Findings on CT confirm radiographic findings of the chest. 1. Bilateral hydropneumothoraces. There is a small to moderate right and large left pneumothorax. Sm all right and moderate left pleural effusion. 2. Areas of tethering of the lung attached to the pleura most pronounced anteriorly and superiorly o n the left and involving the right middle lobe on the right. Correlate for signs and symptoms of supe rimposed infection. 3. Nodular densities scattered throughout the right lung, attention on follow-up imaging to ensure r esolution. Findings could be secondary to acute infectious process. 4. No evidence for filling defect to suggest pulmonary embolus however evaluation is extremely limit ed due to motion. Findings communicated to Dr. Cheo Louise MD on 11/23/2023 7:[address] Cheo Sanchez.
[2023-11-23] MEDS: KETAMINE 10 MG/ML 20 ML VIAL IV ONE (20:08)
[2023-11-23 20:31] LABS: Band Neutrophils % 1 %; Lymphocytes # (M) 0.48 k/uL (1.0-4.8); Neutrophils % (M) 97 %; Nucleated Red Blood Cells 0 /100 WBC (0-0); Total Cells Counted 100
[2023-11-23 20:33] LABS: RBC Morphology Normal
[2023-11-23] MEDS ORDERED: NALOXONE 0.4 MG/ML 1 ML VIAL IV PRN (20:40)
[2023-11-23] MEDS ORDERED: ONDANSETRON 4 MG/2 ML VIAL IVP PRN (20:40)
[2023-11-23] MEDS ORDERED: VANCOMYCIN IV PER PHARMACY 1 EACH MISC MISCELLANE PRN (20:53)
[2023-11-23] MEDS: SODIUM CHLORIDE 0.9% 1,000 ML IV ONE ×2 (20:54→20:59)
[2023-11-23] MEDS: LIDOCAINE 1% INJ 10MG/ML (20 ML MDV) SQ ONE (20:55)
[2023-11-23] MEDS ORDERED: IPRATROPIUM-ALBUTEROL 3 ML NEB INHALATION PRN (20:57)
[2023-11-23] MEDS: SODIUM CHLORIDE 0.9% 1,000 ML IV SCH (20:57)
--- NOTE | 2023-11-23 21:03 | XR ---
EXAMINATION TYPE: XR chest 1V confirm line plcmt DATE OF EXAM: 11/23/2023 8:35 PM CLINICAL INDICATION:Female, 43 years old with history of CONFIRM LINE PLACEMENT; [facility] COMPARISON: Chest radiographs from same day TECHNIQUE: XR chest 1V confirm line plcmt Frontal view of the chest. FINDINGS: Interval placement of a left ventricular premature with tip near the apex. Subcutaneous gas around th e insertion site in the subcutaneous tissues. There is increased aeration of the lung on this exam. S mall pneumothorax remains. IMPRESSION: Interval placement of left thoracotomy tube with improved aeration of the left lung. There remains a small pneumothorax.
[2023-11-23] MEDS: ACETAMINOPHEN IV (For NPO) 1,000 MG in EMPTY BAG 1 BAG IVPB STA (21:05)
--- NOTE | 2023-11-23 21:17 | XR ---
EXAMINATION TYPE: XR chest 1V portable DATE OF EXAM: 11/23/2023 9:02 PM CLINICAL INDICATION:Female, 43 years old with history of MOISES; [facility] COMPARISON: Same day TECHNIQUE: XR chest 1V portable Frontal view of the chest. FINDINGS/IMPRESSION: Left thoracotomy tube with improved aeration of the left lung. There remains a small to moderate righ t pneumothorax. Consolidation changes seen bilaterally and blunting of the costophrenic angles simila r CT findings.
[2023-11-23 21:57] LABS: Glucose,Whole Blood 97 mg/dL (70-110)
[2023-11-23 22:04] LABS: ABG Base Excess 1.4 mmol/L; ABG HCO3 25 mmol/L (21-25); ABG PCO2 37 mmHg (35-45); ABG PH 7.45 (7.35-7.45); ABG TCO2 27 mmol/L (19-24); Allen Test Performed? Yes
[2023-11-23 22:11] LABS: ABG PO2 57 mmHg (83-108)
[2023-11-23] MEDS: LACTATED RINGERS 1,000 ML IV ONE (22:13)
[2023-11-23] MEDS: CEFEPIME 2 GM in SODIUM CHLORIDE 0.9% 100 ML IVPB STA (22:15)
[2023-11-23] MEDS: AZITHROMYCIN 500 MG in SODIUM CHLORIDE 0.9% 250 ML IVPB STA (22:20)
[2023-11-23] MEDS: HYDROmorphone 0.5 MG/0.5 ML SYRINGE IVP PRN (22:26)
[2023-11-23] MEDS: VANCOMYCIN 2,000 MG in SODIUM CHLORIDE 0.9% 500 ML 500 ML IVPB ONE (22:54)
[2023-11-23 23:58] LABS: ABG Base Excess 0.9 mmol/L; ABG HCO3 25 mmol/L (21-25); ABG PCO2 39 mmHg (35-45); ABG PH 7.42 (7.35-7.45); ABG PO2 64 mmHg (83-108); ABG TCO2 27 mmol/L (19-24); Allen Test Performed? Yes
[2023-11-24] MEDS: LORazepam 2 MG/ML INJ IV STA (00:41)
[2023-11-24 00:51] LABS: ABG Base Excess 0.1 mmol/L; ABG HCO3 26 mmol/L (21-25); ABG PCO2 50 mmHg (35-45); ABG PH 7.32 (7.35-7.45); ABG PO2 65 mmHg (83-108); ABG TCO2 28 mmol/L (19-24); Allen Test Performed? Yes
[2023-11-24] MEDS: NOREPINEPHRINE 4 MG in SODIUM CHLORIDE 0.9% 250 ML IV SCH (01:00)
--- NOTE | 2023-11-24 01:11 | XR ---
EXAM: XR Chest, 1 View CLINICAL HISTORY: Tube placement TECHNIQUE: Frontal view of the chest. COMPARISON: Portable chest 190 and 2025 hrs. FINDINGS: Lungs: Patchy to confluent opacities noted throughout the left lung, most prominent in the central mid to lower lung zone. Segmental changes noted involving the right lower lung zone. There is a moderate right pneumothorax, new from the previous examination measuring up to 5.9 cm craniocaudal superiorly. There is also a new deep sulcus sign noted on the right. Pleural space: Lucency inferolateral involving the left lung suggests some residual pneumothorax. Evaluation is limited on this supine exam. Heart: Unremarkable. No cardiomegaly. Mediastinum: No significant abnormality identified. The trachea is midline. Bones/joints: Unremarkable. No acute fracture. Soft tissues: Minimal residual subcutaneous emphysema involving the left lateral chest wall remains. Tubes, lines and devices: An endotracheal tube is identified approximately 3.4 cm from the alicia. A nasogastric tube is looped in the left upper quadrant, presumed in the stomach. A left chest tube is again noted. IMPRESSION: 1. Patchy to confluent opacities noted throughout the left lung, most prominent in the central mid to lower lung zone. Segmental changes noted involving the right lower lung zone. There is a moderate right pneumothorax, new from the previous examination measuring up to 5.9 cm craniocaudal superiorly. There is also a new deep sulcus sign noted on the right. The pneumothorax is presumed under appreciated on this supine exam. 2. An endotracheal tube is identified approximately 3.4 cm from the alicia. Additional support tubes and lines, as detailed above. 3. Bilateral airspace disease. <MYCVCSECTION> Communications: 11/24/23 01:31 Call Doctor Regarding Pneumothorax, called Dr. Caicedo on 11/23 01:31 (-04:00)
[2023-11-24] MEDS: MORPHINE SULFATE 2 MG/ML SYRINGE IVP STA (01:13)
[2023-11-24] MEDS: LORazepam 2 MG/ML INJ IV PRN (01:13)
[2023-11-24] MEDS: IPRATROPIUM-ALBUTEROL 3 ML NEB INHALATION SCH (01:13)
[2023-11-24] MEDS: HYDROmorphone 1 MG/ML 1 ML SYRINGE IVP PRN (01:36)
[2023-11-24 02:22] LABS: Glucose,Whole Blood 163 mg/dL (70-110)
[2023-11-24] MEDS: CEFEPIME 2 GM in SODIUM CHLORIDE 0.9% 100 ML IVPB SCH ×2 (02:22→11:09)
[2023-11-24] MEDS: CISATRACURIUM 2 MG/ML 5 ML VIAL IV ONE (02:30)
[2023-11-24 03:03] LABS: Basophils # (A) 0.1 k/uL (0-0.2); Basophils % (A) 0 %; Eosinophils % (A) 0 %; HCT 29.3 % (34.0-46.0); HGB 9.8 gm/dL (11.4-16.0); Lymphocytes # (A) 0.9 k/uL (1.0-4.8); Lymphocytes % (A) 4 %; MCH 30.7 pg (25.0-35.0); MCHC 33.3 g/dL (31.0-37.0); MCV 92.3 fL (80.0-100.0); Mean Platelet Volume 8.7; Monocytes # (A) 0.6 k/uL (0-1.0); Monocytes % (A) 3 %; Neutrophils % (A) 93 %; Platelet Count 474 k/uL (150-450); RBC 3.18 m/uL (3.80-5.40); RDW 13.1 % (11.5-15.5); WBC 23.7 k/uL (3.8-10.6)
[2023-11-24 03:04] LABS: ABG Base Excess -3.2 mmol/L; ABG HCO3 23 mmol/L (21-25); ABG PCO2 45 mmHg (35-45); ABG PH 7.31 (7.35-7.45); ABG PO2 95 mmHg (83-108); ABG TCO2 24 mmol/L (19-24); Allen Test Performed? Yes
--- NOTE | 2023-11-24 03:11 | P.CNPUL ---
History of Present Illness Consult date: 11/24/23 Chief complaint: Septic shock History of present illness: This is a 43-year-old female patient who is currently incarcerated who presented from a local [facility] with shortness of breath and chest pain. Apparently, the patient has been having the symptoms for the past 3 weeks. She stated that she was having right-sided lateral chest pain along with difficulty breathing. In the emergency, the patient was extremely short of breath, tachycardic and hypoxic. She was also having cough. She was running a fever of 101.4. She was tachycardic with a heart rate of 155. Blood pressure was still stable at that point. She was placed on 100% nonrebreather facemask. A quick chest x-ray was done and the chest x-ray was abnormal with evidence of bilateral pneumothoraces moderate size right and large left-sided pneumothorax. There was also small right-sided pleural effusion and moderate-sized left-sided pleural effusion. There was near complete collapse of the left lung with scattered areas of scattered lung along the pleura. There was also consolidation involving the right lower lobe and the right middle lobe. Based on those findings, the patient was given a CTA of the chest that showed no evidence of pneumothorax. Similar findings were noted with the patient was found to have bilateral pneumothoraces. Pleural effusions were again noted large on the left and moderate-sized on the right. No evidence of any filling defects. At that point, a left-sided chest tube was inserted and copious amount of purulent material was drained from the left lung a total of 800 cc of pus and has already drained from the left lung. The patient was moved to the intensive care unit. She was quite short of breath. She was initially on Airvo system with an FiO2 of 90% with a 60 L flow. She became more short of breath and hemodynamically unstable and hypotensive. At that point, the decision was to intubate the patient and placed on mechanical ventilation. Postintubation, the patient developed peak pressuring. There was worsening in the air leak in the left lung chest tube. At the same time, the patient became unstable and became progressively more hypotensive. Pressors were initiated and the patient is currently on norepinephrine running at 0.3 mcg/kg/min. Repeat chest x-ray was done and it showed worsening of the right-sided pneumothorax. I attended on this patient and immediately inserted triple-lumen catheter for vascular access and hemodynamic support. Resuscitation was continued. At the same time, I inserted a right-sided chest tube and another 400 cc of purulent material was aspirated from the right lung. Subsequent chest x-ray showed reexpansion of the right lung without any evidence of residual pneumothorax. Left lung is extensively consolidated and there is a loculated pneumothorax in the left post erior lateral aspect. At this point in time, the patient is intubated on mechanical ventilator. She is on an assist-control mode at rate of 30, tidal volume of 400, FiO2 is at 100% with a PEEP of 5. She is on norepinephrine. This is being weaned off. She is sedated with propofol which is running at 70 mcg/kg/min. She is also on normal saline at rate of 130 cc an hour. The patient is adequately sedated. She was given also a dose of Nimbex during those procedures. The white cell count is at 23.8 with a hemoglobin of 10.3 and a platelet count of 419. The most recent blood gas showed a pH of 7.32 and a pCO2 of 50 and pO2 of 65 and this was done prior to the insertion of the right-sided chest tube. The sodium is at 129 with a potassium level of 3.9 with a bicarb of 23 and a BUN of 44 with a creatinine of 0.9. Lactic acid level initially was at 2.8 and currently down to 1.5. LFTs are mildly elevated with an AST of 69, ALT of 64, troponins are negative and the proBNP level is within normal limits. The viral screen was also negative. Blood cultures were sent. The patient was started on a combination of IV cefepime, vancomycin and Zithromax. Based on her past medical history, this patient has history of multiple sclerosis, she is morbidly obese, she has history of migraine seizure disorder and fibromyalgia and hypertension. She also has history of anxiety and depression. She has history of polysubstance abuse which includes heroin heroin, cocaine, marijuana and marijuana use. She also does prescription pills. Her last hospital admission was back in November 2022 and at that time the patient was treated for exacerbation of her multiple sclerosis. Review of Systems ROS unobtainable: due to endotracheal tube Past Medical History Past Medical History: No Reported History, Asthma, Fibromyalgia, GERD/Reflux, Hypertension, Musculoskeletal Disorder, Neurologic Disorder, Pneumonia, Seizure Disorder Additional Past Medical History / Comment(s): Multiple Sclerosis, angina, migraines, DJD, interstitial cystitis, UTI, PCOS, vit D deficiency, bilateral optic neuritis with visual problems, generalized chronic pain, numbness/tingling bilateral lower legs, tachycardia, c-diff 5-9-16, seizures from MS last one around 2016. ADHD. 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 PCOS. MS History of Any Multi-Drug Resistant Organisms: C-DIFF Date of last positivie culture/infection: 2017 MDRO Source:: stool Past Surgical History: Cholecystectomy, Orthopedic Surgery Additional Past Surgical History / Comment(s): Lt shoulder rotator cuff repair 06/06/14, arthroscopic left knee 2000 & 2002, left shoulder reconstruction Past Anesthesia/Blood Transfusion Reactions: No Reported Reaction Additional Past Anesthesia/Blood Transfusion Reaction / Comment(s): Pt has never recieved blood. Past Psychological History: Anxiety, Bipolar, Depression Smoking Status: Never smoker Past Alcohol Use History: Rare Past Drug Use History: None Reported - Past Family History Mother Family Medical History: No Reported History Additional Family Medical History / Comment(s): mother is healthy. Maternal grandmother had uterine cancer. Maternal grandfather had bladder cancer. Father Family Medical History: Hypertension Additional Family Medical History / Comment(s): Paternal grandfather had an NE. Medications and Allergies Home Medications Medication Instructions Recorded Confirmed Type Acetaminophen [Tylenol] 975 mg PO BID PRN 11/23/23 11/23/23 History Baclofen [Lioresal] 10 mg PO BID PRN 11/23/23 11/23/23 History FLUoxetine HCL [PROzac] 20 mg PO DAILY 11/23/23 11/23/23 History Loratadine [Claritin] 10 mg PO DAILY 11/23/23 11/23/23 History hydrOXYzine pamoate [Vistaril] 50 mg PO BID 11/23/23 11/23/23 History lisinopriL [Zestril] 10 mg PO DAILY 11/23/23 11/23/23 History Allergies Allergy/AdvReac Type Severity Reaction Status Date / Time amoxicillin [Amoxicillin] Allergy Severe Anaphylaxis, Verified 11/23/23 19:47 seizures ciprofloxacin [From Cipro] Allergy Severe Rash/Hives, Verified 11/23/23 19:47 seizures codeine phosphate Allergy Unknown Rash/Hives Verified 11/23/23 19:47 [From Tylenol-Codeine #3] bee venom protein (honey bee) Allergy Anaphylaxis Verified 11/23/23 19:47 cefuroxime axetil Allergy Rash/Hives Verified 11/23/23 19:47 [From Ceftin] gabapentin [From Neurontin] Allergy Swelling Verified 11/23/23 19:47 ketorolac [From Toradol] Allergy Rash/Hives Verified 11/23/23 19:47 latex Allergy Rash/Hives Verified 11/23/23 19:47 NSAIDS (Non-Steroidal Allergy Rash/Hives/Lip Verified 11/23/23 19:47 Anti-Inflamma Swelling sulfamethoxazole Allergy Itching Verified 11/23/23 19:47 [From Bactrim] trimethoprim [From Bactrim] Allergy Itching Verified 11/23/23 19:47 Physical Exam Vitals: Vital Signs Temp Pulse Resp BP Pulse Ox FiO2 11/24/23 02:00 9935 F H 124 H 37 H 95 100 11/24/23 01:45 125 H 40 H 94 L 11/24/23 01:36 124 H 11/24/23 01:30 125 H 29 H 94 L 11/24/23 01:15 120 H 34 H 88 L 11/24/23 01:14 125 H 11/24/23 01:00 130 H 24 106/54 86 L 100 11/24/23 00:45 129 H 28 H 127/76 85 L 100 11/24/23 00:30 123 H 24 113/62 89 L 11/24/23 00:23 100 11/24/23 00:15 125 H 43 H 111/67 89 L 11/24/23 00:00 123 H 43 H 112/69 90 L 95 11/23/23 23:45 123 H 50 H 103/64 91 L 11/23/23 23:30 122 H 45 H 111/73 91 L 11/23/23 23:15 125 H 33 H 119/63 89 L 11/23/23 23:00 124 H 40 H 117/79 89 L 95 11/23/23 22:45 126 H 45 H 114/76 88 L 11/23/23 22:30 129 H 44 H 109/70 90 L 11/23/23 22:18 95 90 11/23/23 22:15 126 H 22 110/71 88 L 11/23/23 22:00 130 H 37 H 110/71 91 L 95 11/23/23 21:55 143/71 90 L 11/23/23 21:11 95 90 11/23/23 21:09 134 H 35 H 101/83 92 L 11/23/23 19:52 149 H 11/23/23 19:49 149 H 42 H 107/69 99 11/23/23 19:42 100 11/23/23 19:37 151 H 11/23/23 19:03 100 11/23/23 18:55 101.4 F H 155 H 30 H 122/87 100 Intake and Output 11/23/23 11/23/23 11/24/23 14:59 22:59 06:59 Intake Total 1647 899.902 Output Total 1380 Balance 1647 -480.098 Intake: IV 1647 854 Azithromycin 500 mg In 250 Sodium Chloride 0.9% 250 ml @ 250 mls/hr IVPB ONCE STA Rx#:[id number] Cefepime 2 gm In Sodium 100 Chloride 0.9% 100 ml @ 200 mls/hr IVPB ONCE STA Rx#:[id number] Lactated Ringers 1,000 ml 1000 @ 999 mls/hr IV .Q1H1M ONE Rx#:[id number] Sodium Chloride 0.9% 1, 130 520 000 ml @ 130 mls/hr IV . Q7H42M [facility] Rx#:[id number] Vancomycin 1,750 mg In 167 334 Sodium Chloride 0.9% 500 ml 500 ml @ 167 mls/hr IVPB Q12H [facility] Rx#: [id number] Intake, IV Titration 45.902 Amount Norepinephrine 4 mg In 7.034 Sodium Chloride 0.9% 250 ml @ 0.03 MCG/KG/MIN 11. 406 mls/hr IV .[id number] [facility] Rx#:[id number] propofoL 1,000 mg In 38.868 Empty Bag 1 bag @ 15 MCG/ KG/MIN 8.981 mls/hr IV . Q11H9M [facility] Rx#:[id number] Output: Chest Tube Drainage 80 Chest Tube 80 Urine 1300 Other: Weight 99.79 kg ABP, PAP, CO, CI - Last 8 Hours Arterial Blood Pressure 89/48 Arterial Blood Pressure 88/48 Arterial Blood Pressure 94/51 Arterial Blood Pressure 117/66 Arterial Blood Pressure 70/39 Morbidly obese, currently intubated on mechanical ventilator. She is sedated with propofol. The patient is extensive diaphoretic and sweaty. Head exam was generally normal. There was no scleral icterus or corneal arcus. Mucous membranes were moist. Neck was supple and without jugular venous distension, thyromegaly, or carotid bruits. Carotids were easily palpable bilaterally. There was no adenopathy. The patient has a left subclavian triple-lumen catheter in place. Examination of the lungs reveal a left-sided chest tube and a right-sided chest tube. The patient has bilateral chest tube with positive air leak. Purulent material being drained from both of the chest tubes. Breath sounds are currently equal and symmetrical. Scattered rhonchi and wheeze. Cardiac exam revealed the PMI to be normally situated and sized. The rhythm was regular and no extrasystoles were noted during several minutes of auscultation. The first and second heart sounds were normal and physiologic splitting of the second heart sound was noted. There were no murmurs, rubs, clicks, or gallops. Abdominal exam revealed normal bowel sounds. The abdomen was soft, non-tender, and without masses, organomegaly, or appreciable enlargement of the abdominal aorta. Extremities reveal diminished pulses bilaterally. No cyanosis or clubbing. Neurologically patient intubated on mechanical ventilator. The patient is also sedated. Adequate neurologic exam cannot be done. Nevertheless, the patient was awake and alert prior to the intubation process. No focal neurological deficits. Results - Laboratory Findings CBC and BMP: 11/23/23 18:58 11/23/23 18:58 ABG ABG pH 7.32 (7.35-7.45) L 11/24/23 00:50 ABG pCO2 50 mmHg (35-45) H 11/24/23 00:50 ABG pO2 65 mmHg (83-108) L 11/24/23 00:50 ABG O2 Saturation 88.0 % (94-97) L 11/24/23 00:50 PT/INR, D-dimer PT 13.2 sec (10.0-12.5) H 11/23/23 18:58 INR 1.3 (<1.2) H 11/23/23 18:58 D-Dimer 4.66 mg/L FEU (<0.60) H 11/23/23 18:58 Abnormal lab findings: Abnormal Labs 11/23/23 11/23/23 11/23/23 18:58 18:58 18:58 WBC 23.8 H RBC 3.53 L Hgb 10.3 L Hct 31.9 L Plt Count 490 H Neutrophils # (Manual) 23.30 H Lymphocytes # (Manual) 0.48 L PT 13.2 H INR 1.3 H D-Dimer 4.66 H ABG pH ABG pCO2 ABG pO2 ABG HCO3 ABG Total CO2 ABG O2 Saturation Sodium 129 L Chloride 92 L BUN 44 H Glucose 121 H POC Glucose (mg/dL) Plasma Lactic Acid Tom Calcium 8.1 L Total Bilirubin 1.6 H AST 69 H ALT 64 H Total Protein 5.7 L Albumin 2.8 L 11/23/23 11/23/23 11/23/23 18:58 19:09 22:01 WBC RBC Hgb Hct Plt Count Neutrophils # (Manual) Lymphocytes # (Manual) PT INR D-Dimer ABG pH 7.46 H ABG pCO2 ABG pO2 81 L 57 L* ABG HCO3 27 H ABG Total CO2 28 H 27 H ABG O2 Saturation 88.0 L Sodium Chloride BUN Glucose POC Glucose (mg/dL) Plasma Lactic Acid Tom 2.8 H* Calcium Total Bilirubin AST ALT Total Protein Albumin 11/23/23 11/24/23 11/24/23 23:56 00:50 02:20 WBC RBC Hgb Hct Plt Count Neutrophils # (Manual) Lymphocytes # (Manual) PT INR D-Dimer ABG pH 7.32 L ABG pCO2 50 H ABG pO2 64 L 65 L ABG HCO3 26 H ABG Total CO2 27 H 28 H ABG O2 Saturation 91.0 L 88.0 L Sodium Chloride BUN Glucose POC Glucose (mg/dL) 163 H Plasma Lactic Acid Tom Calcium Total Bilirubin AST ALT Total Protein Albumin - Diagnostic Findings Chest x-ray: image reviewed CT scan - chest: image reviewed Assessment and Plan Plan: Acute hypoxic respiratory failure, currently intubated on mechanical ventilator Acute bilateral pneumonia complicated by bilateral pneumothoraces. The patient is post bilateral chest tube insertion. Positive air leak. There is a small loculated pneumothorax on the left. Right-sided pneumothorax has recovered on follow-up chest x-ray. Acute bilateral empyema, post bilateral chest tube insertion with purulent material draining from both lungs. Presentation is highly suspicious for staphylococcal pneumonia. The patient is currently on a combination of cefepime, vancomycin and Zithromax. Acute septic shock, secondary to above the patient is pressor dependent. The patient is currently on high-dose norepinephrine. IV fluids were given and the patient received a total of 3 L of normal saline and the patient is currently on normal saline at rate of 130 cc an hour. 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 FiO2 be gradually weaned off. Peak airway pressure is currently at 28. Keep the patient sedated on propofol. Use fentanyl drip if needed. Patient has been adequate resuscitated IV fluid with a total of 3 L. Will continue lactated Ringer at rate of 130 cc an hour. Bilateral chest tubes have been inserted with positive air leak. Will continue daily chest x-rays. Send blood cultures Send cultures from the fluid from both chest tubes/empyema Obtain echocardiogram to rule out endocarditis Continue combination of antibiotics and I am going to put the patient on a combination of Zosyn and vancomycin. Zithromax can be discontinued. Continue pressors and the patient is currently on norepinephrine and the dose will be titrated as the patient is being resuscitated. The patient may also need to be started on vasopressin. Check procalcitonin level at baseline Check serum cortisol level Put the patient on Lovenox 40 mg subcu for DVT prophylaxis IV Tylenol for fever Keep the NG tube to low intermittent suctioning and hold the tube feeds for now Condition is obviously critical. Will do a urine drug screen. Will continue to follow make further recommendations based on her progress. This evaluation was done more than 45 minutes excluding time to do any procedures. Family will be informed. Time with Patient: Greater than 30
--- NOTE | 2023-11-24 03:13 | P.PCN ---
Date of Procedure: 11/24/23 Preoperative Diagnosis: Septic shock/empyema Postoperative Diagnosis: Septic shock/empyema Procedure(s) Performed: Chest tube insertion, triple-lumen catheter insertion Anesthesia: ALEJANDROA Surgeon: Sharmaine Caicedo Estimated Blood Loss (ml): 0 Pathology: none sent Condition: critical Disposition: ICU Operative Findings: Chest tube insertion A time-out was completed verifying correct patient, procedure, site, positioning, and special equipment if applicable. The patient was positioned appropriately for chest tube placement. The patients right chest was prepped and draped in sterile fashion. 1% Lidocaine was used to anesthetize the surrounding skin area. A 2 cm skin incision was made in the mid-axillary line at the inframammarycrease. Utilizing blunt dissection a subcutaneous tunnel was created cephalad just adjacent to the superior rib. The pleural space was entered bluntly and gush of <air/blood> was observed. A finger was inserted into the pleural space to check for anatomy and guide tube insertion. A 32 German thoracostomy tube was inserted using a Miriam clamp and positioned appropriately. The chest tube was sutured securely to the skin and a sterile dressing applied. A pleurevac was attached to the chest tube and a chest x-ray obtained. I personally performed this procedure and I was was present for the entire procedure. A total of 100 cc of purulent material was already obtained post chest tube insertion. There is possibly a leak. Estimated Blood Loss: 0 The patient tolerated the procedure well and there were no complications. Central Line Procedure Note Central Line Location: [_] Right or [_x] Left [_] Internal Jugular Vein or [x_] Subclavian Vein or [_] Femoral Vein Consent: [_] Consent was obtained from prior to the procedure. Indications, risks and benefits were discussed prior to the procedure. [x_] The procedure was performed emergently and the permission was implied because of the emergent nature. The [facility] Central Line Insertion Practices form was completed during and immediately following the procedure. A time out was performed. My hands were washed immediately prior to the procedure. I wore a surgical cap, mask with protective eyewear, full gown and sterile gloves throughout the procedure. The patient was placed in Trendelenburg position. The Left chest was prepped using chlorhexidine scrub and draped in sterile fashion using a three quarter sheet drape and sterile towels. Skin preparation was allowed to dry prior to skin puncture. Anatomic landmarks were identified. Anesthesia was achieved over the vein using 1% lidocaine. The introducer needle was inserted into the vein. Venous blood was withdrawn. The syringe was removed and a guidewire was advanced into the introducer needle. A small incision was made at the skin surface with a scalpel and the introducer needle was exchanged for a dilator over the guidewire. After appropriate dilation was obtained, the dilator was exchanged over the wire for an antimicrobial coated central venous catheter. The wire was removed and the catheter was sutured in place . A biopatch was placed at the insertion site. A sterile op-site was placed over the catheter and biopatch. The patient tolerated the procedure without any hemodynamic compromise. At time of procedure completion, all ports aspirated and flushed properly. Post-procedure chest x-ray : [_] Is pending at this time. [_x ] Shows adequate positioning of the catheter for use.
[2023-11-24 03:16] LABS: African American GFR (CKD) >90 (>60 ml/min/1.73 sqM); Anion Gap 13 mmol/L; Blood Urea Nitrogen 33 mg/dL (7-17); Calcium 7.6 mg/dL (8.4-10.2); Carbon Dioxide 18 mmol/L (22-30); Chloride 102 mmol/L (98-107); Glucose 143 mg/dL (74-99); Magnesium 2.3 mg/dL (1.6-2.3); Non-African American GFR(CKD) >90 (>60 ml/min/1.73 sqM); Potassium 4.3 mmol/L (3.5-5.1); Sodium 133 mmol/L (137-145)
[2023-11-24] MEDS: NOREPINEPHRINE 32 MG in SODIUM CHLORIDE 0.9% 218 ML IV SCH (03:17)
[2023-11-24] MEDS: VASOPRESSIN 20 UNIT in SODIUM CHLORIDE 0.9% 50 ML IV SCH (03:30)
[2023-11-24] MEDS: LACTATED RINGERS 1,000 ML IV SCH (03:30)
[2023-11-24] MEDS: fentaNYL (PF). 1,000 MCG in SODIUM CHLORIDE 0.9% 80 ML IV SCH (03:51)
--- NOTE | 2023-11-24 03:56 | XR ---
EXAM: XR Chest, 1 View CLINICAL HISTORY: Reason: CVC, chest tube placement TECHNIQUE: Frontal view of the chest. COMPARISON: 00 57 hours FINDINGS: Lungs: Patchy confluent opacities predominantly in the mid to lower lung zones with additional similar changes in the left upper lung zone. Pleural space: Only trace residual pneumothorax noted laterally, only measuring 2-3 mm. Persistent lucency inferolaterally on the left. Heart: The cardiac silhouette is outlined by a lucent border. The cardiac silhouette is within normal limits. Mediastinum: The mediastinal contours are stable. No tracheal deviation. Bones/joints: Unremarkable. No acute fracture. Tubes, lines and devices: Interval placement of a right chest tube with reexpansion of the right lung. The left chest tube remains. The nasogastric tube is 2.4 cm from the alicia. Nasogastric tube tip in the stomach. Interval placement of a left subclavian central line with the tip at the cavoatrial junction. IMPRESSION: 1. Interval placement of a right chest tube and left subclavian central line. The remaining tubes and lines are stable. 2. Reexpansion of right lung with only trace residual pneumothorax laterally. Suspect small residual pneumothorax along the medial pleural border given relative hyperlucent border surrounding the cardiac silhouette. Similar incomplete expansion of the left lung, stable. 3. Patchy to confluent airspace disease most notable in the mid to lower lung zones bilaterally. Suspect atelectasis. However, asymmetric edema or infection is also a consideration.
[2023-11-24] MEDS: PIPERACILLIN-TAZOBACTAM 3.375 GM in SODIUM CHLORIDE 0.9% 100 ML IVPB SCH (04:21)
[2023-11-24] MEDS ORDERED: ACETAMINOPHEN IV (For NPO) 1,000 MG in EMPTY BAG 1 BAG IVPB SCH (06:00)
[2023-11-24 06:17] LABS: ABG Base Excess -3.6 mmol/L; ABG HCO3 22 mmol/L (21-25); ABG PCO2 42 mmHg (35-45); ABG PH 7.33 (7.35-7.45); ABG PO2 147 mmHg (83-108); ABG TCO2 24 mmol/L (19-24); Allen Test Performed? Yes
[2023-11-24 06:24] LABS: Glucose,Whole Blood 168 mg/dL (70-110)
[2023-11-24] MEDS ORDERED: CEFEPIME 1 GM in SODIUM CHLORIDE 0.9% 50 ML IVPB SCH (10:00)
[2023-11-24] MEDS: MIDAZOLAM HCL 50 MG in SODIUM CHLORIDE 0.9% 40 ML IV SCH (10:15)
[2023-11-24 10:43] LABS: Urine Alcohol Negative (Negative); Urine Barbiturate Negative (Negative); Urine Cocaine Negative (Negative); Urine Methadone Negative (Negative); Urine Opiates Positive (Negative); Urine Phencyclidine Negative (Negative)
[2023-11-24] MEDS: VANCOMYCIN 1,750 MG in SODIUM CHLORIDE 0.9% 500 ML 500 ML IVPB SCH (10:48)
[2023-11-24] MEDS: ENOXAPARIN 40 MG/0.4 ML SYRINGE SQ SCH (10:49)
[2023-11-24] MEDS: PANTOPRAZOLE 40 MG/10 ML VIAL IV SCH (10:49)
[2023-11-24] MEDS: CHLORHEXIDINE GLUCONATE 15 ML CUP MUCOUS MEM SCH (10:49)
--- NOTE | 2023-11-24 11:03 | P.GSCN ---
History of Present Illness Consult date: 11/24/23 Reason for Consult: Empyema, possible decortication Requesting physician: Bhuim Tamez History of present illness: This is a 43-year-old female who follows outpatient with Dr. Mukherjee for internal medicine. She has a previous medical history of MS, obesity, migraines, seizures, fibromyalgia, hypertension, asthma, anxiety/depression/bipolar disorder, and polysubstance abuse. She presented to [facility] from the [facility] with complaints of shortness of breath and chest pain for the previous 3 weeks per report. Upon presentation to the emergency room she was noted to have a temperature of 101.4 F, tachycardic, significant respiratory distress. Initially she was on a nonrebreather, then moved to [facility]. Multiple diagnostics were performed demonstrating bilateral hydropneumothorax, left greater than right. Lab work revealed WBC 23.8, hemoglobin 10.3, platelet count 490, D-dimer 4.66, sodium 129, creatinine 0.96, lactic acid 2.8, troponin negative, BNP 313, influenza/RSV/COVID negative. A left-sided chest tube was placed in the emergency room with immediate drainage of 800 mL purulent fluid. She was admitted to the intensive care unit and shortly thereafter became hemodynamically unstable and unresponsive. She was intubated. Right-sided chest tube was placed by pulmonology with immediate evacuation of 400 mL purulent drainage. IV antibiotics had already been initiated. She was receiving propofol for sedation as well as IV levo and vaso for blood pressure support. Consultation was placed to infectious disease. Echocardiogram was ordered to rule out endocarditis. Dr. Royal from cardiothoracic surgery was consulted for management of chest tubes and possible decortication. Review of Systems Review of systems was taken from the chart as there is no family present and the patient is intubated and sedated ROS unobtainable: due to endotracheal tube - Cardiovascular Reports as per HPI, Reports chest pain, Reports dyspnea on exertion, Reports shortness of breath Past Medical History Past Medical History: No Reported History, Asthma, Fibromyalgia, GERD/Reflux, Hypertension, Musculoskeletal Disorder, Neurologic Disorder, Pneumonia, Seizure Disorder Additional Past Medical History / Comment(s): Multiple Sclerosis, angina, migraines, DJD, interstitial cystitis, UTI, PCOS, vit D deficiency, bilateral optic neuritis with visual problems, generalized chronic pain, numbness/tingling bilateral lower legs, tachycardia, c-diff 5-9-16, seizures from MS last one around 2017. ADHD. PAST [employer] HISTORY: She has no history of STDs. PCOS. MS History of Any Multi-Drug Resistant Organisms: C-DIFF Year Discovered:: 2017 MDRO Source:: stool Past Surgical History: Cholecystectomy, Orthopedic Surgery Additional Past Surgical History / Comment(s): Lt shoulder rotator cuff repair 06/06/14, arthroscopic left knee 2000 & 2002, left shoulder reconstruction Past Anesthesia/Blood Transfusion Reactions: No Reported Reaction Additional Past Anesthesia/Blood Transfusion Reaction / Comm: Pt has never recieved blood. Past Psychological History: Anxiety, Bipolar, Depression Smoking Status: Never smoker Past Alcohol Use History: Rare Past Drug Use History: Cocaine, Heroin, Marijuana - Past Family History Mother Family Medical History: No Reported History Additional Family Medical History / Comment(s): mother is healthy. Maternal grandmother had uterine cancer. Maternal grandfather had bladder cancer. Father Family Medical History: Hypertension Additional Family Medical History / Comment(s): Paternal grandfather had an DE. Medications and Allergies Home Medications Medication Instructions Recorded Confirmed Type Acetaminophen [Tylenol] 975 mg PO BID PRN 11/23/23 11/23/23 History Baclofen [Lioresal] 10 mg PO BID PRN 11/23/23 11/23/23 History FLUoxetine HCL [PROzac] 20 mg PO DAILY 11/23/23 11/23/23 History Loratadine [Claritin] 10 mg PO DAILY 11/23/23 11/23/23 History hydrOXYzine pamoate [Vistaril] 50 mg PO BID 11/23/23 11/23/23 History lisinopriL [Zestril] 10 mg PO DAILY 11/23/23 11/23/23 History Allergies Allergy/AdvReac Type Severity Reaction Status Date / Time amoxicillin [Amoxicillin] Allergy Severe Anaphylaxis, Verified 11/23/23 19:47 seizures ciprofloxacin [From Cipro] Allergy Severe Rash/Hives, Verified 11/23/23 19:47 seizures codeine phosphate Allergy Unknown Rash/Hives Verified 11/23/23 19:47 [From Tylenol-Codeine #3] bee venom protein (honey bee) Allergy Anaphylaxis Verified 11/23/23 19:47 cefuroxime axetil Allergy Rash/Hives Verified 11/23/23 19:47 [From Ceftin] gabapentin [From Neurontin] Allergy Swelling Verified 11/23/23 19:47 ketorolac [From Toradol] Allergy Rash/Hives Verified 11/23/23 19:47 latex Allergy Rash/Hives Verified 11/23/23 19:47 NSAIDS (Non-Steroidal Allergy Rash/Hives/Lip Verified 11/23/23 19:47 Anti-Inflamma Swelling sulfamethoxazole Allergy Itching Verified 11/23/23 19:47 [From Bactrim] trimethoprim [From Bactrim] Allergy Itching Verified 11/23/23 19:47 Surgical - Exam Vital Signs Temp Pulse Resp BP Pulse Ox 101.4 F H 155 H 30 H 122/87 100 11/23/23 18:55 11/23/23 18:55 11/23/23 18:55 11/23/23 18:55 11/23/23 18:55 CONSTITUTIONAL: Currently laying in bed in the intensive care unit on mechanical ventilation, IV propofol infusing, IV fentanyl and Versed about to be started EYES: Pupils equal, round, reactive to light, normal ocular movement ENT: Moist mucous membranes without oral lesions present NECK: No masses, no bruits, trachea midline RESPIRATORY: Lungs sounds diminished in the bases, wheezing heard throughout. Respirations even, nonlabored. Currently on FiO2 50%, PEEP 5, tidal volume 400, respiratory rate 30. 8.0 ET tube present, 24 at the lip CARDIOVASCULAR: S1, S2 present. Regular rate and rhythm, sinus rhythm to sinus tach on telemetry. Palpable peripheral pulses bilaterally. No edema present. No calf pain or tenderness noted GASTROINTESTINAL: Abdomen soft, nontender, nondistended without masses or o rganomegaly noted. There is no rebound or guarding present. Active bowel sounds present 4 quadrants. GENITOURINARY: Beth present draining yellow urine INTEGUMENTARY: Skin is warm and dry NEUROLOGIC: Currently sedated and intubated INVASIVE LINES/TUBES: Left subclavian triple-lumen central line, left radial arterial line, right/left pleural chest tubes present. Left pleural chest tube with 1 L total purulent drainage present, continuous airleak present. Right pleural chest tube with 510 mL purulent drainage present, continuous airleak present. Results - Labs 11/25/23 04:05 11/25/23 04:05 Abnormal Lab Results - Last 24 Hours (Table) 11/23/23 11/23/23 11/23/23 Range/Units 18:58 18:58 18:58 WBC 23.8 H (3.8-10.6) k/uL RBC 3.53 L (3.80-5.40) m/uL Hgb 10.3 L (11.4-16.0) gm/dL Hct 31.9 L (34.0-46.0) % Plt Count 490 H (150-450) k/uL Neutrophils # (1.3-7.7) k/uL Neutrophils # (Manual) 23.30 H (1.3-7.7) k/uL Lymphocytes # (1.0-4.8) k/uL Lymphocytes # (Manual) 0.48 L (1.0-4.8) k/uL PT 13.2 H (10.0-12.5) sec INR 1.3 H (<1.2) D-Dimer 4.66 H (<0.60) mg/L FEU ABG pH (7.35-7.45) ABG pCO2 (35-45) mmHg ABG pO2 (83-108) mmHg ABG HCO3 (21-25) mmol/L ABG Total CO2 (19-24) mmol/L ABG O2 Saturation (94-97) % Sodium 129 L (137-145) mmol/L Chloride 92 L (98-107) mmol/L Carbon Dioxide (22-30) mmol/L BUN 44 H (7-17) mg/dL Glucose 121 H (74-99) mg/dL POC Glucose (mg/dL) (70-110) mg/dL Plasma Lactic Acid Tom (0.7-2.0) mmol/L Calcium 8.1 L (8.4-10.2) mg/dL Total Bilirubin 1.6 H (0.2-1.3) mg/dL AST 69 H (14-36) U/L ALT 64 H (4-34) U/L Total Protein 5.7 L (6.3-8.2) g/dL Albumin 2.8 L (3.5-5.0) g/dL Procalcitonin (0.02-0.09) ng/mL Cortisol (3.1-22.4) UG/DL 11/23/23 11/23/23 11/23/23 Range/Units 18:58 19:09 22:01 WBC (3.8-10.6) k/uL RBC (3.80-5.40) m/uL Hgb (11.4-16.0) gm/dL Hct (34.0-46.0) % Plt Count (150-450) k/uL Neutrophils # (1.3-7.7) k/uL Neutrophils # (Manual) (1.3-7.7) k/uL Lymphocytes # (1.0-4.8) k/uL Lymphocytes # (Manual) (1.0-4.8) k/uL PT (10.0-12.5) sec INR (<1.2) D-Dimer (<0.60) mg/L FEU ABG pH 7.46 H (7.35-7.45) ABG pCO2 (35-45) mmHg ABG pO2 81 L 57 L* (83-108) mmHg ABG HCO3 27 H (21-25) mmol/L ABG Total CO2 28 H 27 H (19-24) mmol/L ABG O2 Saturation 88.0 L (94-97) % Sodium (137-145) mmol/L Chloride (98-107) mmol/L Carbon Dioxide (22-30) mmol/L BUN (7-17) mg/dL Glucose (74-99) mg/dL POC Glucose (mg/dL) (70-110) mg/dL Plasma Lactic Acid Tom 2.8 H* (0.7-2.0) mmol/L Calcium (8.4-10.2) mg/dL Total Bilirubin (0.2-1.3) mg/dL AST (14-36) U/L ALT (4-34) U/L Total Protein (6.3-8.2) g/dL Albumin (3.5-5.0) g/dL Procalcitonin (0.02-0.09) ng/mL Cortisol (3.1-22.4) UG/DL 11/23/23 11/24/23 11/24/23 Range/Units 23:56 00:50 02:20 WBC (3.8-10.6) k/uL RBC (3.80-5.40) m/uL Hgb (11.4-16.0) gm/dL Hct (34.0-46.0) % Plt Count (150-450) k/uL Neutrophils # (1.3-7.7) k/uL Neutrophils # (Manual) (1.3-7.7) k/uL Lymphocytes # (1.0-4.8) k/uL Lymphocytes # (Manual) (1.0-4.8) k/uL PT (10.0-12.5) sec INR (<1.2) D-Dimer (<0.60) mg/L FEU ABG pH 7.32 L (7.35-7.45) ABG pCO2 50 H (35-45) mmHg ABG pO2 64 L 65 L (83-108) mmHg ABG HCO3 26 H (21-25) mmol/L ABG Total CO2 27 H 28 H (19-24) mmol/L ABG O2 Saturation 91.0 L 88.0 L (94-97) % Sodium (137-145) mmol/L Chloride (98-107) mmol/L Carbon Dioxide (22-30) mmol/L BUN (7-17) mg/dL Glucose (74-99) mg/dL POC Glucose (mg/dL) 163 H (70-110) mg/dL Plasma Lactic Acid Tom (0.7-2.0) mmol/L Calcium (8.4-10.2) mg/dL Total Bilirubin (0.2-1.3) mg/dL AST (14-36) U/L ALT (4-34) U/L Total Protein (6.3-8.2) g/dL Albumin (3.5-5.0) g/dL Procalcitonin (0.02-0.09) ng/mL Cortisol (3.1-22.4) UG/DL 11/24/23 11/24/23 11/24/23 Range/Units 02:27 02:27 02:27 WBC 23.7 H (3.8-10.6) k/uL RBC 3.18 L (3.80-5.40) m/uL Hgb 9.8 L (11.4-16.0) gm/dL Hct 29.3 L (34.0-46.0) % Plt Count 474 H (150-450) k/uL Neutrophils # 22.0 H (1.3-7.7) k/uL Neutrophils # (Manual) (1.3-7.7) k/uL Lymphocytes # 0.9 L (1.0-4.8) k/uL Lymphocytes # (Manual) (1.0-4.8) k/uL PT (10.0-12.5) sec INR (<1.2) D-Dimer (<0.60) mg/L FEU ABG pH (7.35-7.45) ABG pCO2 (35-45) mmHg ABG pO2 (83-108) mmHg ABG HCO3 (21-25) mmol/L ABG Total CO2 (19-24) mmol/L ABG O2 Saturation (94-97) % Sodium 133 L (137-145) mmol/L Chloride (98-107) mmol/L Carbon Dioxide 18 L (22-30) mmol/L BUN 33 H (7-17) mg/dL Glucose 143 H (74-99) mg/dL POC Glucose (mg/dL) (70-110) mg/dL Plasma Lactic Acid Tom (0.7-2.0) mmol/L Calcium 7.6 L (8.4-10.2) mg/dL Total Bilirubin (0.2-1.3) mg/dL AST (14-36) U/L ALT (4-34) U/L Total Protein (6.3-8.2) g/dL Albumin (3.5-5.0) g/dL Procalcitonin (0.02-0.09) ng/mL Cortisol 30.5 H (3.1-22.4) UG/DL 11/24/23 11/24/23 11/24/23 Range/Units 02:27 03:00 06:13 WBC (3.8-10.6) k/uL RBC (3.80-5.40) m/uL Hgb (11.4-16.0) gm/dL Hct (34.0-46.0) % Plt Count (150-450) k/uL Neutrophils # (1.3-7.7) k/uL Neutrophils # (Manual) (1.3-7.7) k/uL Lymphocytes # (1.0-4.8) k/uL Lymphocytes # (Manual) (1.0-4.8) k/uL PT (10.0-12.5) sec INR (<1.2) D-Dimer (<0.60) mg/L FEU ABG pH 7.31 L 7.33 L (7.35-7.45) ABG pCO2 (35-45) mmHg ABG pO2 147 H (83-108) mmHg ABG HCO3 (21-25) mmol/L ABG Total CO2 (19-24) mmol/L ABG O2 Saturation 98.0 H (94-97) % Sodium (137-145) mmol/L Chloride (98-107) mmol/L Carbon Dioxide (22-30) mmol/L BUN (7-17) mg/dL Glucose (74-99) mg/dL POC Glucose (mg/dL) (70-110) mg/dL Plasma Lactic Acid Tom (0.7-2.0) mmol/L Calcium (8.4-10.2) mg/dL Total Bilirubin (0.2-1.3) mg/dL AST (14-36) U/L ALT (4-34) U/L Total Protein (6.3-8.2) g/dL Albumin (3.5-5.0) g/dL Procalcitonin 2.40 H (0.02-0.09) ng/mL Cortisol (3.1-22.4) UG/DL 11/24/23 Range/Units 06:23 WBC (3.8-10.6) k/uL RBC (3.80-5.40) m/uL Hgb (11.4-16.0) gm/dL Hct (34.0-46.0) % Plt Count (150-450) k/uL Neutrophils # (1.3-7.7) k/uL Neutrophils # (Manual) (1.3-7.7) k/uL Lymphocytes # (1.0-4.8) k/uL Lymphocytes # (Manual) (1.0-4.8) k/uL PT (10.0-12.5) sec INR (<1.2) D-Dimer (<0.60) mg/L FEU ABG pH (7.35-7.45) ABG pCO2 (35-45) mmHg ABG pO2 (83-108) mmHg ABG HCO3 (21-25) mmol/L ABG Total CO2 (19-24) mmol/L ABG O2 Saturation (94-97) % Sodium (137-145) mmol/L Chloride (98-107) mmol/L Carbon Dioxide (22-30) mmol/L BUN (7-17) mg/dL Glucose (74-99) mg/dL POC Glucose (mg/dL) 168 H (70-110) mg/dL Plasma Lactic Acid Tom (0.7-2.0) mmol/L Calcium (8.4-10.2) mg/dL Total Bilirubin (0.2-1.3) mg/dL AST (14-36) U/L ALT (4-34) U/L Total Protein (6.3-8.2) g/dL Albumin (3.5-5.0) g/dL Procalcitonin (0.02-0.09) ng/mL Cortisol (3.1-22.4) UG/DL Diabetes panel 11/23/23 11/24/23 Range/Units 18:58 02:27 Sodium 129 L 133 L (137-145) mmol/L Potassium 3.9 4.3 (3.5-5.1) mmol/L Chloride 92 L 102 (98-107) mmol/L Carbon Dioxide 23 18 L (22-30) mmol/L BUN 44 H 33 H (7-17) mg/dL Creatinine 0.96 0.79 (0.52-1.04) mg/dL Glucose 121 H 143 H (74-99) mg/dL Calcium 8.1 L 7.6 L (8.4-10.2) mg/dL AST 69 H (14-36) U/L ALT 64 H (4-34) U/L Alkaline Phosphatase 73 (38-126) U/L Total Protein 5.7 L (6.3-8.2) g/dL Albumin 2.8 L (3.5-5.0) g/dL Calcium panel 11/23/23 11/24/23 Range/Units 18:58 02:27 Calcium 8.1 L 7.6 L (8.4-10.2) mg/dL Albumin 2.8 L (3.5-5.0) g/dL Pituitary panel 11/23/23 11/24/23 Range/Units 18:58 02:27 Sodium 129 L 133 L (137-145) mmol/L Potassium 3.9 4.3 (3.5-5.1) mmol/L Chloride 92 L 102 (98-107) mmol/L Carbon Dioxide 23 18 L (22-30) mmol/L BUN 44 H 33 H (7-17) mg/dL Creatinine 0.96 0.79 (0.52-1.04) mg/dL Glucose 121 H 143 H (74-99) mg/dL Calcium 8.1 L 7.6 L (8.4-10.2) mg/dL Adrenal panel 11/23/23 11/24/23 Range/Units 18:58 02:27 Sodium 129 L 133 L (137-145) mmol/L Potassium 3.9 4.3 (3.5-5.1) mmol/L Chloride 92 L 102 (98-107) mmol/L Carbon Dioxide 23 18 L (22-30) mmol/L BUN 44 H 33 H (7-17) mg/dL Creatinine 0.96 0.79 (0.52-1.04) mg/dL Glucose 121 H 143 H (74-99) mg/dL Calcium 8.1 L 7.6 L (8.4-10.2) mg/dL Total Bilirubin 1.6 H (0.2-1.3) mg/dL AST 69 H (14-36) U/L ALT 64 H (4-34) U/L Alkaline Phosphatase 73 (38-126) U/L Total Protein 5.7 L (6.3-8.2) g/dL Albumin 2.8 L (3.5-5.0) g/dL - Imaging Chest x-ray: report reviewed, image reviewed CT scan - chest: report reviewed, image reviewed EKG: image reviewed Assessment and Plan Assessment: Acute hypoxic respiratory failure requiring mechanical ventilation Bilateral hydropneumothoraces, empyema, status post bilateral chest tube insertion Septic shock, requiring IV vasopressors Chest pain, shortness of breath present on admission secondary to above History of MS Obesity Migraines Seizures Fibromyalgia Hypertension, currently hypotensive on pressors Asthma Anxiety/depression/bipolar disorder Polysubstance abuse Plan: The patient was seen and examined laying in bed in the intensive care unit being mechanically ventilated and sedated. [facility] at the bedside. Anahy t/diagnostics reviewed. Will review the case in detail with Dr. Royal. Recommend continuing IV antibiotics, continue chest tubes to continuous wall suction. Will review echocardiogram when completed. Ventilator management per pulmonology. More recommendations to follow once discussed with Dr. Royal. Thank you Dr. Birch for this consult, we we will continue to follow this patient and make further recommendations as appropriate. I have personally seen and examined the patient, performed the documentation and the assessment and plan as written. Number of minutes spent on the visit: 30. Sondra Esquivel NP-C. Attending Addendum: Pt seen and evaluated with [employer]IS[employer] above. Agree with her assessment and plan. This is a 43 y/o F with bilateral pleural effusion/empyema. She has had bilateral chest tubes placed with significant air leak on the left side. Recommend starting with conservative therapy with tPA/lytics on the right side. I spent 30 minutes reviewing the data and discussing the findings with the patient and the care team. Time with Patient: Greater than 30
--- NOTE | 2023-11-24 11:05 | P.PN ---
Subjective Progress Note Date: 11/24/23 Principal diagnosis: Acute hypoxic respiratory failure secondary to bilateral pn eumonia/empyema/hydropneumothorax This is a 43-year-old female patient who is currently incarcerated who presented from a local assisted with shortness of breath and chest pain. Apparently, the patient has been having the symptoms for the past 3 weeks. She stated that she was having right-sided lateral chest pain along with difficulty breathing. In the emergency, the patient was extremely short of breath, tachycardic and hypoxic. She was also having cough. She was running a fever of 101.4. She was tachycardic with a heart rate of 155. Blood pressure was still stable at that point. She was placed on 100% nonrebreather facemask. A quick chest x-ray was done and the chest x-ray was abnormal with evidence of bilateral pneumothoraces moderate size right and large left-sided pneumothorax. There was also small right-sided pleural effusion and moderate-sized left-sided pleural effusion. There was near complete collapse of the left lung with scattered areas of scattered lung along the pleura. There was also consolidation involving the right lower lobe and the right middle lobe. Based on those findings, the patient was given a CTA of the chest that showed no evidence of pneumothorax. Similar findings were noted with the patient was found to have bilateral pneumothoraces. Pleural effusions were again noted large on the left and moderate-sized on the right. No evidence of any filling defects. At that point, a left-sided chest tube was inserted and copious amount of purulent material was drained from the left lung a total of 800 cc of pus and has already drained from the left lung. The patient was moved to the intensive care unit. She was quite short of breath. She was initially on Airvo system with an FiO2 of 90% with a 60 L flow. She became more short of breath and hemodynamically unstable and hypotensive. At that point, the decision was to intubate the patient and placed on mechanical ventilation. Postintubation, the patient developed peak pressuring. There was worsening in the air leak in the left lung chest tube. At the same time, the patient became unstable and became progressively more hypotensive. Pressors were initiated and the patient is c urrently on norepinephrine running at 0.3 mcg/kg/min. Repeat chest x-ray was done and it showed worsening of the right-sided pneumothorax. I attended on this patient and immediately inserted triple-lumen catheter for vascular access and hemodynamic support. Resuscitation was continued. At the same time, I inserted a right-sided chest tube and another 400 cc of purulent material was aspirated from the right lung. Subsequent chest x-ray showed reexpansion of the right lung without any evidence of residual pneumothorax. Left lung is extensively consolidated and there is a loculated pneumothorax in the left posterior lateral aspect. At this point in time, the patient is intubated on mechanical ventilator. She is on an assist-control mode at rate of 30, tidal volume of 400, FiO2 is at 100% with a PEEP of 5. She is on norepinephrine. This is being weaned off. She is sedated with propofol which is running at 70 mcg/kg/min. She is also on normal saline at rate of 130 cc an hour. The patient is adequately sedated. She was given also a dose of Nimbex during those procedures. The white cell count is at 23.8 with a hemoglobin of 10.3 and a platelet count of 419. The most recent blood gas showed a pH of 7.32 and a pCO2 of 50 and pO2 of 65 and this was done prior to the insertion of the right-sided chest tube. The sodium is at 129 with a potassium level of 3.9 with a bicarb of 23 and a BUN of 44 with a creatinine of 0.9. Lactic acid level initially was at 2.8 and currently down to 1.5. LFTs are mildly elevated with an AST of 69, ALT of 64, troponins are negative and the proBNP level is within normal limits. The viral screen was also negative. Blood cultures were sent. The patient was started on a combination of IV cefepime, vancomycin and Zithromax. Based on her past medical history, this patient has history of multiple sclerosis, she is morbidly obese, she has history of migraine seizure disorder and fibromyalgia and hypertension. She also has history of anxiety and depression. She has history of polysubstance abuse which includes heroin heroin, cocaine, marijuana and marijuana use. She also does prescription pills. Her last hospital admission was back in November 2022 and at that time the patient was treated for exacerbation of her multiple sclerosis. Patient was evaluated this morning, patient is hemodynamically unstable, still requiring norepinephrine at 0.08 mcg/kg/min she is also requiring vasopressin at 0.03 units/h. Patient is receiving LR at 150 cc/h. Chest x-ray continues to show hydropneumothorax, both chest tubes are draining purulent and serosanguineous material the left-sided chest tube is draining pus, and the right-sided chest tube is draining serosanguineous liquid. Right sided drained 400 cc since last night and the left side drained 800 cc since last night. Clearly the patient has empyema she may or may not require decortication or thrombolytic instillation into the pleural space. Patient continues to have air leak in both chest tubes. She is on assist-control rate of 30 tidal volume 400 FiO2 down to 50% PEEP of 5 last ABG showed a pO2 of 147 pCO2 42 pH of 7.33. Thoracic surgery was consulted and infectious disease was also consulted. Patient is receiving presently vancomycin and cefepime, she has allergies to penicillin hence Zosyn was discontinued. Her urine output is reasonable, patient received 3 L of fluid boluses and she is on IV fluid at 130 cc/h. Patient is critically ill. Continues to have leukocytosis with WBC count of 23.7 hemoglobin 9.8. Basic metabolic profile is normal. Urine test is positive for opiates Objective - Vital Signs Vital signs: Vital Signs Temp 98.7 F 11/24/23 04:00 Pulse 101 H 11/24/23 08:21 Resp 30 H 11/24/23 07:00 BP 106/54 11/24/23 01:00 Pulse Ox 98 11/24/23 07:00 FiO2 50 11/24/23 09:35 Intake & Output 11/23/23 11/24/23 11/24/23 18:59 06:59 18:59 Intake Total 3270.532 185.284 Output Total 2335 60 Balance 935.532 125.284 Weight 99.79 kg 103.6 kg Intake: IV 3021 130 Azithromycin 500 mg In 250 Sodium Chloride 0.9% 250 ml @ 250 mls/hr IVPB [facility]CE [facility] Rx#:[id number] Cefepime 2 gm In Sodium 100 Chloride 0.9% 100 ml @ 200 mls/hr IVPB ONCE STA Rx#:[id number] Lactated Ringers 1,000 ml 520 130 @ 130 mls/hr IV .Q7H42M [facility] Rx#:[id number] Lactated Ringers 1,000 ml 1000 @ 999 mls/hr IV .Q1H1M [facility] Rx#:[id number] Sodium Chloride 0.9% 1, 650 000 ml @ 130 mls/hr IV . Q7H42M [facility] Rx#:[id number] Vancomycin 1,750 mg In 501 Sodium Chloride 0.9% 500 ml 500 ml @ 167 mls/hr IVPB Q12H [facility] Rx#: [id number] Intake, IV Titration 249.532 55.284 Amount Norepinephrine 32 mg In 16.008 Sodium Chloride 0.9% 218 ml @ 0.03 MCG/KG/MIN 1. 403 mls/hr IV .Q24H [facility] Rx#:[id number] Norepinephrine 4 mg In 7.034 Sodium Chloride 0.9% 250 ml @ 0.03 MCG/KG/MIN 11. 406 mls/hr IV .[id number] [facility] Rx#:[id number] fentaNYL (PF). 1,000 mcg 3.659 49.895 In Sodium Chloride 0.9% 80 ml @ 0.5 MCG/KG/HR 4. 99 mls/hr IV .Q20H3M [facility] Rx#:[id number] propofoL 1,000 mg In 222.831 5.389 Empty Bag 1 bag @ 15 MCG/ KG/MIN 8.981 mls/hr IV . Q11H9M [facility] Rx#:[id number] Output: Chest Tube Drainage 590 Chest Tube 150 Chest Tube Right 440 Urine 1745 60 Other: Voiding Method Indwelling Catheter ABP, PAP, CO, CI - Last Documented Arterial Blood Pressure 117/59 - Exam General: Revealed 43-year-old female intubated, obese, mechanically ventilated, restless agitated in spite of significant sedation medications on board. Patient is on propofol at 55 mcg/kg/min and increase that to 75 she is also on fentanyl at 1 mcg/kg/h, and I added today Versed. Patient is requiring norepinephrine at 0.08 mcg/kg/min Skin: Skin is warm and dry and no rashes or lesions are noted. Eye: Pupils are equal, round and reactive to light, extra-ocular movements are intact; there is normal conjunctiva bilaterally. Ears, nose, mouth and throat: There are moist mucous membranes and no oral lesions. Neck: The neck is supple, there is no tenderness or JVD. Cardiovascular: There is a regular rate and rhythm. No murmur, rub or gallop is appreciated. Respiratory: Crackles and rhonchi noted bilaterally chest tubes noted on both sides. Gastrointestinal: Obese, soft, nontender, no megaly no rebound. Back: There is no tenderness to palpation in the midline. There is no obvious deformity. Musculoskeletal: Normal ROM, no tenderness, There is no pedal edema. There is no calf tenderness or swelling. No cords were appreciated. Neurological: Not assessed patient is sedated but she seems to be restless and a gitated in spite of sedation Psychiatric: Could not assess mostly because of sedation. - Labs CBC & Chem 7: 11/24/23 02:27 11/24/23 02:27 Labs: Abnormal Lab Results - Last 24 Hours (Table) 11/23/23 11/23/23 11/23/23 Range/Units 18:58 18:58 18:58 WBC 23.8 H (3.8-10.6) k/uL RBC 3.53 L (3.80-5.40) m/uL Hgb 10.3 L (11.4-16.0) gm/dL Hct 31.9 L (34.0-46.0) % Plt Count 490 H (150-450) k/uL Neutrophils # (1.3-7.7) k/uL Neutrophils # (Manual) 23.30 H (1.3-7.7) k/uL Lymphocytes # (1.0-4.8) k/uL Lymphocytes # (Manual) 0.48 L (1.0-4.8) k/uL PT 13.2 H (10.0-12.5) sec INR 1.3 H (<1.2) D-Dimer 4.66 H (<0.60) mg/L FEU ABG pH (7.35-7.45) ABG pCO2 (35-45) mmHg ABG pO2 (83-108) mmHg ABG HCO3 (21-25) mmol/L ABG Total CO2 (19-24) mmol/L ABG O2 Saturation (94-97) % Sodium 129 L (137-145) mmol/L Chloride 92 L (98-107) mmol/L Carbon Dioxide (22-30) mmol/L BUN 44 H (7-17) mg/dL Glucose 121 H (74-99) mg/dL POC Glucose (mg/dL) (70-110) mg/dL Plasma Lactic Acid Tom (0.7-2.0) mmol/L Calcium 8.1 L (8.4-10.2) mg/dL Total Bilirubin 1.6 H (0.2-1.3) mg/dL AST 69 H (14-36) U/L ALT 64 H (4-34) U/L Total Protein 5.7 L (6.3-8.2) g/dL Albumin 2.8 L (3.5-5.0) g/dL Procalcitonin (0.02-0.09) ng/mL Cortisol (3.1-22.4) UG/DL Urine Opiates Screen (Negative) 11/23/23 11/23/23 11/23/23 Range/Units 18:58 19:09 22:01 WBC (3.8-10.6) k/uL RBC (3.80-5.40) m/uL Hgb (11.4-16.0) gm/dL Hct (34.0-46.0) % Plt Count (150-450) k/uL Neutrophils # (1.3-7.7) k/uL Neutrophils # (Manual) (1.3-7.7) k/uL Lymphocytes # (1.0-4.8) k/uL Lymphocytes # (Manual) (1.0-4.8) k/uL PT (10.0-12.5) sec INR (<1.2) D-Dimer (<0.60) mg/L FEU ABG pH 7.46 H (7.35-7.45) ABG pCO2 (35-45) mmHg ABG pO2 81 L 57 L* (83-108) mmHg ABG HCO3 27 H (21-25) mmol/L ABG Total CO2 28 H 27 H (19-24) mmol/L ABG O2 Saturation 88.0 L (94-97) % Sodium (137-145) mmol/L Chloride (98-107) mmol/L Carbon Dioxide (22-30) mmol/L BUN (7-17) mg/dL Glucose (74-99) mg/dL POC Glucose (mg/dL) (70-110) mg/dL Plasma Lactic Acid Tom 2.8 H* (0.7-2.0) mmol/L Calcium (8.4-10.2) mg/dL Total Bilirubin (0.2-1.3) mg/dL AST (14-36) U/L ALT (4-34) U/L Total Protein (6.3-8.2) g/dL Albumin (3.5-5.0) g/dL Procalcitonin (0.02-0.09) ng/mL Cortisol (3.1-22.4) UG/DL Urine Opiates Screen (Negative) 11/23/23 11/24/23 11/24/23 Range/Units 23:56 00:50 02:20 WBC (3.8-10.6) k/uL RBC (3.80-5.40) m/uL Hgb (11.4-16.0) gm/dL Hct (34.0-46.0) % Plt Count (150-450) k/uL Neutrophils # (1.3-7.7) k/uL Neutrophils # (Manual) (1.3-7.7) k/uL Lymphocytes # (1.0-4.8) k/uL Lymphocytes # (Manual) (1.0-4.8) k/uL PT (10.0-12.5) sec INR (<1.2) D-Dimer (<0.60) mg/L FEU ABG pH 7.32 L (7.35-7.45) ABG pCO2 50 H (35-45) mmHg ABG pO2 64 L 65 L (83-108) mmHg ABG HCO3 26 H (21-25) mmol/L ABG Total CO2 27 H 28 H (19-24) mmol/L ABG O2 Saturation 91.0 L 88.0 L (94-97) % Sodium (137-145) mmol/L Chloride (98-107) mmol/L Carbon Dioxide (22-30) mmol/L BUN (7-17) mg/dL Glucose (74-99) mg/dL POC Glucose (mg/dL) 163 H (70-110) mg/dL Plasma Lactic Acid Tom (0.7-2.0) mmol/L Calcium (8.4-10.2) mg/dL Total Bilirubin (0.2-1.3) mg/dL AST (14-36) U/L ALT (4-34) U/L Total Protein (6.3-8.2) g/dL Albumin (3.5-5.0) g/dL Procalcitonin (0.02-0.09) ng/mL Cortisol (3.1-22.4) UG/DL Urine Opiates Screen (Negative) 11/24/23 11/24/23 11/24/23 Range/Units 02:27 02:27 02:27 WBC 23.7 H (3.8-10.6) k/uL RBC 3.18 L (3.80-5.40) m/uL Hgb 9.8 L (11.4-16.0) gm/dL Hct 29.3 L (34.0-46.0) % Plt Count 474 H (150-450) k/uL Neutrophils # 22.0 H (1.3-7.7) k/uL Neutrophils # (Manual) (1.3-7.7) k/uL Lymphocytes # 0.9 L (1.0-4.8) k/uL Lymphocytes # (Manual) (1.0-4.8) k/uL PT (10.0-12.5) sec INR (<1.2) D-Dimer (<0.60) mg/L FEU ABG pH (7.35-7.45) ABG pCO2 (35-45) mmHg ABG pO2 (83-108) mmHg ABG HCO3 (21-25) mmol/L ABG Total CO2 (19-24) mmol/L ABG O2 Saturation (94-97) % Sodium 133 L (137-145) mmol/L Chloride (98-107) mmol/L Carbon Dioxide 18 L (22-30) mmol/L BUN 33 H (7-17) mg/dL Glucose 143 H (74-99) mg/dL POC Glucose (mg/dL) (70-110) mg/dL Plasma Lactic Acid Tom (0.7-2.0) mmol/L Calcium 7.6 L (8.4-10.2) mg/dL Total Bilirubin (0.2-1.3) mg/dL AST (14-36) U/L ALT (4-34) U/L Total Protein (6.3-8.2) g/dL Albumin (3.5-5.0) g/dL Procalcitonin (0.02-0.09) ng/mL Cortisol 30.5 H (3.1-22.4) UG/DL Urine Opiates Screen (Negative) 11/24/23 11/24/23 11/24/23 Range/Units 02:27 03:00 03:40 WBC (3.8-10.6) k/uL RBC (3.80-5.40) m/uL Hgb (11.4-16.0) gm/dL Hct (34.0-46.0) % Plt Count (150-450) k/uL Neutrophils # (1.3-7.7) k/uL Neutrophils # (Manual) (1.3-7.7) k/uL Lymphocytes # (1.0-4.8) k/uL Lymphocytes # (Manual) (1.0-4.8) k/uL PT (10.0-12.5) sec INR (<1.2) D-Dimer (<0.60) mg/L FEU ABG pH 7.31 L (7.35-7.45) ABG pCO2 (35-45) mmHg ABG pO2 (83-108) mmHg ABG HCO3 (21-25) mmol/L ABG Total CO2 (19-24) mmol/L ABG O2 Saturation (94-97) % Sodium (137-145) mmol/L Chloride (98-107) mmol/L Carbon Dioxide (22-30) mmol/L BUN (7-17) mg/dL Glucose (74-99) mg/dL POC Glucose (mg/dL) (70-110) mg/dL Plasma Lactic Acid Tom (0.7-2.0) mmol/L Calcium (8.4-10.2) mg/dL Total Bilirubin (0.2-1.3) mg/dL AST (14-36) U/L ALT (4-34) U/L Total Protein (6.3-8.2) g/dL Albumin (3.5-5.0) g/dL Procalcitonin 2.40 H (0.02-0.09) ng/mL Cortisol (3.1-22.4) UG/DL Urine Opiates Screen Positive A (Negative) 11/24/23 11/24/23 Range/Units 06:13 06:23 WBC (3.8-10.6) k/uL RBC (3.80-5.40) m/uL Hgb (11.4-16.0) gm/dL Hct (34.0-46.0) % Plt Count (150-450) k/uL Neutrophils # (1.3-7.7) k/uL Neutrophils # (Manual) (1.3-7.7) k/uL Lymphocytes # (1.0-4.8) k/uL Lymphocytes # (Manual) (1.0-4.8) k/uL PT (10.0-12.5) sec INR (<1.2) D-Dimer (<0.60) mg/L FEU ABG pH 7.33 L (7.35-7.45) ABG pCO2 (35-45) mmHg ABG pO2 147 H (83-108) mmHg ABG HCO3 (21-25) mmol/L ABG Total CO2 (19-24) mmol/L ABG O2 Saturation 98.0 H (94-97) % Sodium (137-145) mmol/L Chloride (98-107) mmol/L Carbon Dioxide (22-30) mmol/L BUN (7-17) mg/dL Glucose (74-99) mg/dL POC Glucose (mg/dL) 168 H (70-110) mg/dL Plasma Lactic Acid Tom (0.7-2.0) mmol/L Calcium (8.4-10.2) mg/dL Total Bilirubin (0.2-1.3) mg/dL AST (14-36) U/L ALT (4-34) U/L Total Protein (6.3-8.2) g/dL Albumin (3.5-5.0) g/dL Procalcitonin (0.02-0.09) ng/mL Cortisol (3.1-22.4) UG/DL Urine Opiates Screen (Negative) Assessment and Plan Assessment: Impression: Acute hypoxic respiratory failure Acute bilateral pneumonia with empyema Acute sepsis and septic shock secondary to above Acute leukocytosis History of polysubstance abuse History of MS History of depression and anxiety History of interstitial cystitis and UTI Fibromyalgia Chronic pain syndrome History of seizure disorder Degenerative joint disease Benign essential hypertension Morbid obesity Recommendation: Adjusted ventilator settings accordingly based on ABG Reviewed chest x-ray and drainage from chest tubes patient continues to have bilateral air leak. Consulted thoracic surgery and consulted infectious disease Changed antibiotics to vancomycin and cefepime Echocardiogram is pending to rule out endocarditis. Continue pressors and hemodynamic support Started nutritional support/enteral feeding Check serum cortisol level Continue DVT prophylaxis and continue GI prophylaxis Continue both chest tubes to suction Patient is critically ill. Critical care time is over 30-minute Time with Patient: Greater than 30
[2023-11-24 11:53] LABS: Glucose,Whole Blood 170 mg/dL (70-110)
--- NOTE | 2023-11-24 13:32 | P.HPIM ---
History of Present Illness H&P Date: 11/24/23 History of present illness; patient 43-year-old lady who is currently incarcerated and was brought to the ER for chest pain and shortness of breath. Most of the history is been taken from the electronic medical record according to which patient has been having shortness of breath for the last few weeks. Patient also been complaining of cough and chest pain. Patient also has having fevers at the facility. Because of the symptoms, patient was brought to the ER. Where patient was found to be extremely tachycardic and hypoxic, patient had to be placed on 100% nonrebreather mask. Initial chest x-ray done showed bilateral pneumothoraces with moderate size right large left-sided pneumothorax. Initial lab work done in the ER showed WBC 23.8, hemoglobin 9.3, platelet count 490, INR 1.3, D-dimer 4.66, sodium 129, potassium 3.9, BUN 44, creatinine 0.96, glucose 121, lactate 2.8, AST 16, ALT 64 Influenza A not detected Influenza B not detected RSV not detected COVID-19 not detected CTA chest done in the ER showed bilateral hydropneumothoraces, there is a small to moderate right and large left pneumothorax small right and moderate left pleural effusions. Areas of tethering of the lung attached to the pleura most pronounced anteriorly and superiorly correlate for superimposed infection. Patient had a left-sided chest tube placed in the ER and was transferred to ICU where she was later intubated. Patient admitted to ICU under internal medicine service REVIEW OF SYSTEMS: Cannot be obtained as patient currently intubated and sedated PHYSICAL EXAMINATION: GENERAL: The patient is intubated and sedated, not in any acute distress. Well developed, well nourished. HEENT: Pupils are round and equally reacting to light. EOMI. No scleral icterus. No conjunctival pallor. Normocephalic, atraumatic. No pharyngeal erythema. No thyromegaly. CARDIOVASCULAR: S1 and S2 present. No murmurs, rubs, or gallops. PULMONARY: Tachypneic, diminished breath sound the bases bilaterally, bilateral chest tube seen ABDOMEN: Soft, nontender, nondistended, normoactive bowel sounds. No palpable organomegaly. MUSCULOSKELETAL: No joint swelling or deformity. EXTREMITIES: No cyanosis, clubbing, or pedal edema. NEUROLOGICAL: Currently intubated and sedated SKIN: No rashes. Assessment and plan Acute hypoxic respiratory failure Acute bilateral pneumonia complicated by bilateral pneumothoraces. Acute bilateral empyema, post bilateral chest tube insertion with purulent material draining from both lungs. Acute septic shock, Acute leukocytosis secondary to above Morbid obesity Polysubstance abuse Hyponatremia Elevated LFTs Lactic acidosis Monitor vital signs Monitor CBC Monitor CMP Continue telemetry monitoring Continue vent management per ICU Aggressive bronchopulmonary hygiene Blood cultures ordered Sputum cultures ordered Continue IV cefepime, vancomycin Continue chest tube management per CT surgery Critical care following ID consulted Labs and medication were reviewed.. Continue same treatment. Continue with symptomatic treatment. Resume home medication. Monitor labs and vitals. DVT and GI prophylaxis. Further recommendations as per clinical course of the patient Dictation was produced using [employer] dictation software. please excuse any grammatical, word or spelling errors. Past Medical History Past Medical History: No Reported History, Asthma, Fibromyalgia, GERD/Reflux, Hypertension, Musculoskeletal Disorder, Neurologic Disorder, Pneumonia, Seizure Disorder Additional Past Medical History / Comment(s): Multiple Sclerosis, angina, migraines, DJD, interstitial cystitis, UTI, PCOS, vit D deficiency, bilateral optic neuritis with visual problems, generalized chronic pain, numbness/tingling bilateral lower legs, tachycardia, c-diff 5-9-16, seizures from MS last one around 2016. ADHD. 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 PCOS. MS History of Any Multi-Drug Resistant Organisms: C-DIFF Date of last positivie culture/infection: 2016 MDRO Source:: stool Past Surgical History: Cholecystectomy, Orthopedic Surgery Additional Past Surgical History / Comment(s): Lt shoulder rotator cuff repair 06/06/14, arthroscopic left knee 2000 & 2002, left shoulder reconstruction Past Anesthesia/Blood Transfusion Reactions: No Reported Reaction Additional Past Anesthesia/Blood Transfusion Reaction / Comment(s): Pt has never recieved blood. Past Psychological History: Anxiety, Bipolar, Depression Smoking Status: Never smoker Past Alcohol Use History: Rare Past Drug Use History: None Reported - Past Family History Mother Family Medical History: No Reported History Additional Family Medical History / Comment(s): mother is healthy. Maternal grandmother had uterine cancer. Maternal grandfather had bladder cancer. Father Family Medical History: Hypertension Additional Family Medical History / Comment(s): Paternal grandfather had an AK. Medications and Allergies Home Medications Medication Instructions Recorded Confirmed Type Acetaminophen [Tylenol] 975 mg PO BID PRN 11/23/23 11/23/23 History Baclofen [Lioresal] 10 mg PO BID PRN 11/23/23 11/23/23 History FLUoxetine HCL [PROzac] 20 mg PO DAILY 11/23/23 11/23/23 History Loratadine [Claritin] 10 mg PO DAILY 11/23/23 11/23/23 History hydrOXYzine pamoate [Vistaril] 50 mg PO BID 11/23/23 11/23/23 History lisinopriL [Zestril] 10 mg PO DAILY 11/23/23 11/23/23 History Allergies Allergy/AdvReac Type Severity Reaction Status Date / Time amoxicillin [Amoxicillin] Allergy Severe Anaphylaxis, Verified 11/23/23 19:47 seizures ciprofloxacin [From Cipro] Allergy Severe Rash/Hives, Verified 11/23/23 19:47 seizures codeine phosphate Allergy Unknown Rash/Hives Verified 11/23/23 19:47 [From Tylenol-Codeine #3] bee venom protein (honey bee) Allergy Anaphylaxis Verified 11/23/23 19:47 cefuroxime axetil Allergy Rash/Hives Verified 11/23/23 19:47 [From Ceftin] gabapentin [From Neurontin] Allergy Swelling Verified 11/23/23 19:47 ketorolac [From Toradol] Allergy Rash/Hives Verified 11/23/23 19:47 latex Allergy Rash/Hives Verified 11/23/23 19:47 NSAIDS (Non-Steroidal Allergy Rash/Hives/Lip Verified 11/23/23 19:47 Anti-Inflamma Swelling sulfamethoxazole Allergy Itching Verified 11/23/23 19:47 [From Bactrim] trimethoprim [From Bactrim] Allergy Itching Verified 11/23/23 19:47 Physical Exam Vitals: Vital Signs Temp Pulse Resp BP Pulse Ox FiO2 11/24/23 09:35 50 11/24/23 08:21 101 H 11/24/23 08:15 60 11/24/23 08:11 99 11/24/23 07:00 99 30 H 98 70 11/24/23 06:45 103 H 30 H 98 11/24/23 06:30 101 H 30 H 98 11/24/23 06:20 70 11/24/23 06:15 103 H 30 H 99 11/24/23 06:00 101 H 30 H 99 80 11/24/23 05:45 101 H 30 H 98 11/24/23 05:30 105 H 30 H 96 11/24/23 05:15 100 31 H 97 11/24/23 05:00 101 H 31 H 96 80 11/24/23 04:45 98 31 H 96 11/24/23 04:38 97 11/24/23 04:30 100 30 H 97 11/24/23 04:29 80 11/24/23 04:27 98 11/24/23 04:15 101 H 31 H 97 11/24/23 04:00 98.7 F 101 H 31 H 97 90 11/24/23 03:45 102 H 34 H 96 11/24/23 03:30 105 H 33 H 97 11/24/23 03:15 108 H 37 H 97 11/24/23 03:10 90 11/24/23 03:00 112 H 30 H 96 90 11/24/23 02:45 112 H 24 94 L 11/24/23 02:30 114 H 24 95 11/24/23 02:15 124 H 38 H 94 L 11/24/23 02:00 9935 F H 124 H 37 H 95 100 11/24/23 01:45 125 H 40 H 94 L 11/24/23 01:36 124 H 11/24/23 01:30 125 H 29 H 94 L 11/24/23 01:15 120 H 34 H 88 L 11/24/23 01:14 125 H 11/24/23 01:00 130 H 24 106/54 86 L 100 11/24/23 00:45 129 H 28 H 127/76 85 L 100 11/24/23 00:30 123 H 24 113/62 89 L 11/24/23 00:23 100 11/24/23 00:15 125 H 43 H 111/67 89 L 11/24/23 00:00 123 H 43 H 112/69 90 L 95 11/23/23 23:45 123 H 50 H 103/64 91 L 11/23/23 23:30 122 H 45 H 111/73 91 L 11/23/23 23:15 125 H 33 H 119/63 89 L 11/23/23 23:00 124 H 40 H 117/79 89 L 95 11/23/23 22:45 126 H 45 H 114/76 88 L 11/23/23 22:30 129 H 44 H 109/70 90 L 11/23/23 22:18 95 90 11/23/23 22:15 126 H 22 110/71 88 L 11/23/23 22:00 130 H 37 H 110/71 91 L 95 11/23/23 21:55 143/71 90 L 11/23/23 21:11 95 90 11/23/23 21:09 134 H 35 H 101/83 92 L 11/23/23 19:52 149 H 11/23/23 19:49 149 H 42 H 107/69 99 11/23/23 19:42 100 11/23/23 19:37 151 H 11/23/23 19:03 100 11/23/23 18:55 101.4 F H 155 H 30 H 122/87 100 Intake and Output 11/23/23 11/24/23 11/24/23 22:59 06:59 14:59 Intake Total 1647 1623.532 185.284 Output Total 2335 60 Balance 1647 -711.468 125.284 Intake: IV 1647 1374 130 Azithromycin 500 mg In 250 Sodium Chloride 0.9% 250 ml @ 250 mls/hr IVPB ONCE STA Rx#:[id number] Cefepime 2 gm In Sodium 100 Chloride 0.9% 100 ml @ 200 mls/hr IVPB ONCE STA Rx#:[id number] Lactated Ringers 1,000 ml 520 130 @ 130 mls/hr IV .Q7H42M [facility] Rx#:[id number] Lactated Ringers 1,000 ml 1000 @ 999 mls/hr IV .Q1H1M ONE Rx#:[id number] Sodium Chloride 0.9% 1, 130 520 000 ml @ 130 mls/hr IV . Q7H42M [facility] Rx#:[id number] Vancomycin 1,750 mg In 167 334 Sodium Chloride 0.9% 500 ml 500 ml @ 167 mls/hr IVPB Q12H [facility] Rx#: [id number] Intake, IV Titration 249.532 55.284 Amount Norepinephrine 32 mg In 16.008 Sodium Chloride 0.9% 218 ml @ 0.03 MCG/KG/MIN 1. 403 mls/hr IV .Q24H [facility] Rx#:[id number] Norepinephrine 4 mg In 7.034 Sodium Chloride 0.9% 250 ml @ 0.03 MCG/KG/MIN 11. 406 mls/hr IV .[id number] [facility] Rx#:[id number] fentaNYL (PF). 1,000 mcg 3.659 49.895 In Sodium Chloride 0.9% 80 ml @ 0.5 MCG/KG/HR 4. 99 mls/hr IV .Q20H3M [facility] Rx#:[id number] propofoL 1,000 mg In 222.831 5.389 Empty Bag 1 bag @ 15 MCG/ KG/MIN 8.981 mls/hr IV . Q11H9M [facility] Rx#:[id number] Output: Chest Tube Drainage 590 Chest Tube 150 Chest Tube Right 440 Urine 1745 60 Other: Voiding Method Indwelling Catheter Weight 99.79 kg 103.6 kg ABP, PAP, CO, CI - Last 8 Hours Arterial Blood Pressure 117/59 Arterial Blood Pressure 108/55 Arterial Blood Pressure 115/58 Arterial Blood Pressure 118/60 Arterial Blood Pressure 115/58 Arterial Blood Pressure 106/56 Arterial Blood Pressure 112/59 Arterial Blood Pressure 112/59 Arterial Blood Pressure 110/55 Arterial Blood Pressure 108/55 Arterial Blood Pressure 100/53 Arterial Blood Pressure 123/63 Arterial Blood Pressure 106/53 Arterial Blood Pressure 114/54 Arterial Blood Pressure 113/56 Arterial Blood Pressure 109/55 Arterial Blood Pressure 130/64 Arterial Blood Pressure 98/50 Arterial Blood Pressure 84/47 Arterial Blood Pressure 89/48 Arterial Blood Pressure 88/48 Results CBC & Chem 7: 11/24/23 02:27 11/24/23 02:27 Labs: Abnormal Lab Results - Last 24 Hours (Table) 11/23/23 11/23/23 11/23/23 Range/Units 18:58 18:58 18:58 WBC 23.8 H (3.8-10.6) k/uL RBC 3.53 L (3.80-5.40) m/uL Hgb 10.3 L (11.4-16.0) gm/dL Hct 31.9 L (34.0-46.0) % Plt Count 490 H (150-450) k/uL Neutrophils # (1.3-7.7) k/uL Neutrophils # (Manual) 23.30 H (1.3-7.7) k/uL Lymphocytes # (1.0-4.8) k/uL Lymphocytes # (Manual) 0.48 L (1.0-4.8) k/uL PT 13.2 H (10.0-12.5) sec INR 1.3 H (<1.2) D-Dimer 4.66 H (<0.60) mg/L FEU ABG pH (7.35-7.45) ABG pCO2 (35-45) mmHg ABG pO2 (83-108) mmHg ABG HCO3 (21-25) mmol/L ABG Total CO2 (19-24) mmol/L ABG O2 Saturation (94-97) % Sodium 129 L (137-145) mmol/L Chloride 92 L (98-107) mmol/L Carbon Dioxide (22-30) mmol/L BUN 44 H (7-17) mg/dL Glucose 121 H (74-99) mg/dL POC Glucose (mg/dL) (70-110) mg/dL Plasma Lactic Acid Tom (0.7-2.0) mmol/L Calcium 8.1 L (8.4-10.2) mg/dL Total Bilirubin 1.6 H (0.2-1.3) mg/dL AST 69 H (14-36) U/L ALT 64 H (4-34) U/L Total Protein 5.7 L (6.3-8.2) g/dL Albumin 2.8 L (3.5-5.0) g/dL Procalcitonin (0.02-0.09) ng/mL Cortisol (3.1-22.4) UG/DL 11/23/23 11/23/23 11/23/23 Range/Units 18:58 19:09 22:01 WBC (3.8-10.6) k/uL RBC (3.80-5.40) m/uL Hgb (11.4-16.0) gm/dL Hct (34.0-46.0) % Plt Count (150-450) k/uL Neutrophils # (1.3-7.7) k/uL Neutrophils # (Manual) (1.3-7.7) k/uL Lymphocytes # (1.0-4.8) k/uL Lymphocytes # (Manual) (1.0-4.8) k/uL PT (10.0-12.5) sec INR (<1.2) D-Dimer (<0.60) mg/L FEU ABG pH 7.46 H (7.35-7.45) ABG pCO2 (35-45) mmHg ABG pO2 81 L 57 L* (83-108) mmHg ABG HCO3 27 H (21-25) mmol/L ABG Total CO2 28 H 27 H (19-24) mmol/L ABG O2 Saturation 88.0 L (94-97) % Sodium (137-145) mmol/L Chloride (98-107) mmol/L Carbon Dioxide (22-30) mmol/L BUN (7-17) mg/dL Glucose (74-99) mg/dL POC Glucose (mg/dL) (70-110) mg/dL Plasma Lactic Acid Tom 2.8 H* (0.7-2.0) mmol/L Calcium (8.4-10.2) mg/dL Total Bilirubin (0.2-1.3) mg/dL AST (14-36) U/L ALT (4-34) U/L Total Protein (6.3-8.2) g/dL Albumin (3.5-5.0) g/dL Procalcitonin (0.02-0.09) ng/mL Cortisol (3.1-22.4) UG/DL 11/23/23 11/24/23 11/24/23 Range/Units 23:56 00:50 02:20 WBC (3.8-10.6) k/uL RBC (3.80-5.40) m/uL Hgb (11.4-16.0) gm/dL Hct (34.0-46.0) % Plt Count (150-450) k/uL Neutrophils # (1.3-7.7) k/uL Neutrophils # (Manual) (1.3-7.7) k/uL Lymphocytes # (1.0-4.8) k/uL Lymphocytes # (Manual) (1.0-4.8) k/uL PT (10.0-12.5) sec INR (<1.2) D-Dimer (<0.60) mg/L FEU ABG pH 7.32 L (7.35-7.45) ABG pCO2 50 H (35-45) mmHg ABG pO2 64 L 65 L (83-108) mmHg ABG HCO3 26 H (21-25) mmol/L ABG Total CO2 27 H 28 H (19-24) mmol/L ABG O2 Saturation 91.0 L 88.0 L (94-97) % Sodium (137-145) mmol/L Chloride (98-107) mmol/L Carbon Dioxide (22-30) mmol/L BUN (7-17) mg/dL Glucose (74-99) mg/dL POC Glucose (mg/dL) 163 H (70-110) mg/dL Plasma Lactic Acid Tom (0.7-2.0) mmol/L Calcium (8.4-10.2) mg/dL Total Bilirubin (0.2-1.3) mg/dL AST (14-36) U/L ALT (4-34) U/L Total Protein (6.3-8.2) g/dL Albumin (3.5-5.0) g/dL Procalcitonin (0.02-0.09) ng/mL Cortisol (3.1-22.4) UG/DL 11/24/23 11/24/23 11/24/23 Range/Units 02:27 02:27 02:27 WBC 23.7 H (3.8-10.6) k/uL RBC 3.18 L (3.80-5.40) m/uL Hgb 9.8 L (11.4-16.0) gm/dL Hct 29.3 L (34.0-46.0) % Plt Count 474 H (150-450) k/uL Neutrophils # 22.0 H (1.3-7.7) k/uL Neutrophils # (Manual) (1.3-7.7) k/uL Lymphocytes # 0.9 L (1.0-4.8) k/uL Lymphocytes # (Manual) (1.0-4.8) k/uL PT (10.0-12.5) sec INR (<1.2) D-Dimer (<0.60) mg/L FEU ABG pH (7.35-7.45) ABG pCO2 (35-45) mmHg ABG pO2 (83-108) mmHg ABG HCO3 (21-25) mmol/L ABG Total CO2 (19-24) mmol/L ABG O2 Saturation (94-97) % Sodium 133 L (137-145) mmol/L Chloride (98-107) mmol/L Carbon Dioxide 18 L (22-30) mmol/L BUN 33 H (7-17) mg/dL Glucose 143 H (74-99) mg/dL POC Glucose (mg/dL) (70-110) mg/dL Plasma Lactic Acid Tom (0.7-2.0) mmol/L Calcium 7.6 L (8.4-10.2) mg/dL Total Bilirubin (0.2-1.3) mg/dL AST (14-36) U/L ALT (4-34) U/L Total Protein (6.3-8.2) g/dL Albumin (3.5-5.0) g/dL Procalcitonin (0.02-0.09) ng/mL Cortisol 30.5 H (3.1-22.4) UG/DL 11/24/23 11/24/23 11/24/23 Range/Units 02:27 03:00 06:13 WBC (3.8-10.6) k/uL RBC (3.80-5.40) m/uL Hgb (11.4-16.0) gm/dL Hct (34.0-46.0) % Plt Count (150-450) k/uL Neutrophils # (1.3-7.7) k/uL Neutrophils # (Manual) (1.3-7.7) k/uL Lymphocytes # (1.0-4.8) k/uL Lymphocytes # (Manual) (1.0-4.8) k/uL PT (10.0-12.5) sec INR (<1.2) D-Dimer (<0.60) mg/L FEU ABG pH 7.31 L 7.33 L (7.35-7.45) ABG pCO2 (35-45) mmHg ABG pO2 147 H (83-108) mmHg ABG HCO3 (21-25) mmol/L ABG Total CO2 (19-24) mmol/L ABG O2 Saturation 98.0 H (94-97) % Sodium (137-145) mmol/L Chloride (98-107) mmol/L Carbon Dioxide (22-30) mmol/L BUN (7-17) mg/dL Glucose (74-99) mg/dL POC Glucose (mg/dL) (70-110) mg/dL Plasma Lactic Acid Tom (0.7-2.0) mmol/L Calcium (8.4-10.2) mg/dL Total Bilirubin (0.2-1.3) mg/dL AST (14-36) U/L ALT (4-34) U/L Total Protein (6.3-8.2) g/dL Albumin (3.5-5.0) g/dL Procalcitonin 2.40 H (0.02-0.09) ng/mL Cortisol (3.1-22.4) UG/DL 11/24/23 Range/Units 06:23 WBC (3.8-10.6) k/uL RBC (3.80-5.40) m/uL Hgb (11.4-16.0) gm/dL Hct (34.0-46.0) % Plt Count (150-450) k/uL Neutrophils # (1.3-7.7) k/uL Neutrophils # (Manual) (1.3-7.7) k/uL Lymphocytes # (1.0-4.8) k/uL Lymphocytes # (Manual) (1.0-4.8) k/uL PT (10.0-12.5) sec INR (<1.2) D-Dimer (<0.60) mg/L FEU ABG pH (7.35-7.45) ABG pCO2 (35-45) mmHg ABG pO2 (83-108) mmHg ABG HCO3 (21-25) mmol/L ABG Total CO2 (19-24) mmol/L ABG O2 Saturation (94-97) % Sodium (137-145) mmol/L Chloride (98-107) mmol/L Carbon Dioxide (22-30) mmol/L BUN (7-17) mg/dL Glucose (74-99) mg/dL POC Glucose (mg/dL) 168 H (70-110) mg/dL Plasma Lactic Acid Tom (0.7-2.0) mmol/L Calcium (8.4-10.2) mg/dL Total Bilirubin (0.2-1.3) mg/dL AST (14-36) U/L ALT (4-34) U/L Total Protein (6.3-8.2) g/dL Albumin (3.5-5.0) g/dL Procalcitonin (0.02-0.09) ng/mL Cortisol (3.1-22.4) UG/DL
[2023-11-24] MEDS ORDERED: ALTEPLASE 10 MG in SODIUM CHLORIDE 0.9% 50 ML IRRIGATION ONE (16:05)
[2023-11-24] MEDS: DORNASE ALFA 5 MG in SODIUM CHLORIDE 0.9% 50 ML IRRIGATION ONE ×2 (17:26→17:27)
[2023-11-24] MEDS: ALTEPLASE 10 MG in SODIUM CHLORIDE 0.9% 50 ML IRRIGATION ONE (17:26)
[2023-11-24 18:03] LABS: Glucose,Whole Blood 143 mg/dL (70-110)
--- NOTE | 2023-11-24 18:12 | CA ---
Transthoracic Echo Report Name: Lyndsay Uriarte Age: 43 Gender: F : 1980 Exam Date: 11/24/2023 08:50 Exam Location: [place] [facility] Ht (in): 66 Wt (lb): 220 Ordering Physician: Sharmaine Caicedo MD Attending/Referring Phys: Chemical Unit Operator Miriam Olson RCS Procedure CPT: Indications: eval LV function Cardiac Hx: Technical Quality: Fair Contrast 1: Total Dose (mL): Contrast 2: Total Dose (mL): MEASUREMENTS (Male / Female) Normal Values 2D ECHO LVOT Diameter 2.1 cm LV Diastolic Volume MOD BP 73.8 cm??? 67 - 155 / 56 - 104 cm??? LV Systolic Volume MOD BP 19.8 cm??? 22 - 58 / 19 - 49 cm??? LV Ejection Fraction MOD BP 73.1 % >= 55 % LV Cardiac Index MOD BP 2703.7 cm???/min???m??? LV Diastolic Volume MOD 4C 76.6 cm??? LV Systolic Volume MOD 4C 26.0 cm??? LV Ejection Fraction MOD 4C 66.1 % LV Cardiac Index MOD 4C 2535.0 cm???/min???m??? LV Diastolic Length 4C 8.0 cm LV Systolic Length 4C 6.3 cm LV Diastolic Volume MOD 2C 65.0 cm??? LV Systolic Volume MOD 2C 12.7 cm??? LV Ejection Fraction MOD 2C 80.4 % LV Cardiac Index MOD 2C 2615.9 cm???/min???m??? LV Diastolic Length 2C 7.2 cm LV Systolic Length 2C 5.2 cm LA Volume 28.5 cm??? 18 - 58 / 22 - 52 cm??? LA Volume Index 13.0 cm???/m??? 16 - 28 cm???/m??? DOPPLER AV Peak Velocity 197.8 cm/s AV Peak Gradient 15.7 mmHg AV Mean Velocity 135.9 cm/s AV Mean Gradient 8.3 mmHg AV Velocity Time Integral 31.0 cm LVOT Peak Velocity 153.4 cm/s LVOT Peak Gradient 9.4 mmHg LVOT Velocity Time Integral 24.0 cm LVOT Stroke Volume 82.6 cm??? LVOT Stroke Volume Index 39.7 ml/m??? LVOT Cardiac Index 4135.0 cm???/min???m??? AV Area Cont Eq vti 2.7 cm??? AV Area Cont Eq pk 2.7 cm??? MV Area PHT 5.4 cm??? Mitral E Point Velocity 99.3 cm/s Mitral A Point Velocity 85.9 cm/s Mitral E to A Ratio 1.2 MV Deceleration Time 141.7 ms PV Peak Velocity 126.7 cm/s PV Peak Gradient 6.4 mmHg FINDINGS Left Ventricle Left ventricular ejection fraction is estimated at 65-70 %. Left ventricular cavity size normal. Left ventricular wall thickness normal. No obvious regional wall motion abnormalities. Right Ventricle Normal right ventricular size and function. Unable to estimate right ventricular systolic function. Right Atrium Normal right atrial size. Left Atrium Normal left atrial size. Mitral Valve Structurally normal mitral valve. No mitral stenosis, regurgitation or prolapse. Aortic Valve Trileaflet aortic valve. No aortic valve stenosis or regurgitation. Tricuspid Valve Structurally normal tricuspid valve. No tricuspid stenosis. No tricuspid regurgitation. Pulmonic Valve Pulmonic valve not well visualized. No pulmonic stenosis. No pulmonic regurgitation. Pericardium No pericardial effusion. Aorta Aortic annulus normal. Ascending aorta not well visualized. CONCLUSIONS Normal LV function Previewed by: Dr. John Goodman MD (Electronically Signed) Final Date: 24 November 2023 18:12
--- NOTE | 2023-11-24 21:25 | P.CONS ---
History of Present Illness - Reason for Consult Consult date: 11/24/23 Pneumonia empyema Requesting physician: Deborah Swain - Chief Complaint Shortness of breath x few days - History of Present Illness Patient is a 43-year-old female past medical history significant for hypertension fibromyalgia asthma reflux seizure disorder currently incarcerated and presented from the local halfway for evaluation of increasing shortness of breath and chest pain symptom has been getting worse for 3 weeks before the patient has been brought into the hospital patient was complaining of right- sided chest pain along with difficulty in breathing patient on presentation to the hospital did have a fever of 101.4 F patient was tachycardic and hypoten sive requiring pressor support patient did have a white count of 23.8 with a left shift creatinine 0.96 liver isms mildly elevated urine drug screen positive for opiates influenza RSV COVID testing negative patient did have a CT a bilateral pneumothoraxes and there is small to moderate right and large left pneumothorax along with small right and moderate left effusion nodular densities scattered throughout the right lung no evidence of any filling defect patient is status post bilateral chest tube placement patient is currently on recommendation of cefepime and vancomycin infectious disease was consulted today for further management of antibiotic therapy most information has been obtained from review the chart talking nursing staff as patient is currently intubated on the vent and cannot provide any history Review of Systems Positive points has been mentioned in HPI complete review could not be obtained because patient intubated on the vent Past Medical History Past Medical History: No Reported History, Asthma, Fibromyalgia, GERD/Reflux, Hypertension, Musculoskeletal Disorder, Neurologic Disorder, Pneumonia, Seizure Disorder Additional Past Medical History / Comment(s): Multiple Sclerosis, angina, migraines, DJD, interstitial cystitis, UTI, PCOS, vit D deficiency, bilateral optic neuritis with visual problems, generalized chronic pain, numbness/tingling bilateral lower legs, tachycardia, c-diff 5-9-16, seizures from MS last one around 2017. ADHD. 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 PCOS. MS History of Any Multi-Drug Resistant Organisms: C-DIFF Year Discovered:: 2017 MDRO Source:: stool Past Surgical History: Cholecystectomy, Orthopedic Surgery Additional Past Surgical History / Comment(s): Lt shoulder rotator cuff repair 06/06/14, arthroscopic left knee 2000 & 2002, left shoulder reconstruction Past Anesthesia/Blood Transfusion Reactions: No Reported Reaction Additional Past Anesthesia/Blood Transfusion Reaction / Comm: Pt has never recieved blood. Past Psychological History: Anxiety, Bipolar, Depression Smoking Status: Never smoker Past Alcohol Use History: Rare Past Drug Use History: Cocaine, Heroin, Marijuana - Past Family History Mother Family Medical History: No Reported History Additional Family Medical History / Comment(s): mother is healthy. Maternal grandmother had uterine cancer. Maternal grandfather had bladder cancer. Father Family Medical History: Hypertension Additional Family Medical History / Comment(s): Paternal grandfather had an OR. Medications and Allergies Home Medications Medication Instructions Recorded Confirmed Type FLUoxetine HCL [PROzac] 20 mg PO DAILY 11/23/23 11/23/23 History hydrOXYzine pamoate [Vistaril] 50 mg PO BID 11/23/23 11/23/23 History Acetaminophen Tab [Tylenol] 650 mg PO Q6HR PRN tab 12/12/23 Rx Chlorhexidine Gluconate [Peridex] 15 ml MUCOUS MEM BID ml 12/12/23 Rx Cholestyramine (with Sugar) 4 gm PO BID@1000,1800 packet 12/12/23 Rx [Questran Packet] Enoxaparin [Lovenox] 40 mg SQ DAILY each 12/12/23 Rx INSULIN ASPART (NovoLOG) [NovoLOG 0 unit SQ Q6H each 12/12/23 Rx (formulary)] Ipratropium-Albuterol Nebulize 3 ml INHALATION RT-Q2H PRN each 12/12/23 Rx [Duoneb 0.5 mg-3 mg/3 ml Soln] Ipratropium-Albuterol Nebulize 3 ml INHALATION RT-Q4H each 12/12/23 Rx [Duoneb 0.5 mg-3 mg/3 ml Soln] Loperamide [Imodium] 2 mg PO QID cap 12/12/23 Rx Magnesium Hydroxide [Milk of 2,400 mg PO BID PRN ml 12/12/23 Rx Magnesia] Pantoprazole [Protonix] 40 mg PEG/G-TUBE DAILY #60 tab 12/12/23 Rx Scopolamine 1 mg/72 Hr Patch 1 patch TRANSDERM Q72H patch 12/12/23 Rx [TransDerm Scop] Vancomycin 1,750 mg IVPB Q8H 14 Days each 12/12/23 Rx Allergies Allergy/AdvReac Type Severity Reaction Status Date / Time amoxicillin [Amoxicillin] Allergy Severe Anaphylaxis, Verified 11/23/23 19:47 seizures ciprofloxacin [From Cipro] Allergy Severe Rash/Hives, Verified 11/23/23 19:47 seizures codeine phosphate Allergy Unknown Rash/Hives Verified 11/23/23 19:47 [From Tylenol-Codeine #3] bee venom protein (honey bee) Allergy Anaphylaxis Verified 11/23/23 19:47 cefuroxime axetil Allergy Rash/Hives Verified 11/23/23 19:47 [From Ceftin] gabapentin [From Neurontin] Allergy Swelling Verified 11/23/23 19:47 ketorolac [From Toradol] Allergy Rash/Hives Verified 11/23/23 19:47 latex Allergy Rash/Hives Verified 11/23/23 19:47 NSAIDS (Non-Steroidal Allergy Rash/Hives/Lip Verified 11/23/23 19:47 Anti-Inflamma Swelling sulfamethoxazole Allergy Itching Verified 11/23/23 19:47 [From Bactrim] trimethoprim [From Bactrim] Allergy Itching Verified 11/23/23 19:47 Physical Exam Vitals: Vital Signs Temp Pulse Resp BP Pulse Ox FiO2 11/24/23 09:35 50 11/24/23 08:21 101 H 11/24/23 08:15 60 11/24/23 08:11 99 11/24/23 07:00 99 30 H 98 70 11/24/23 06:45 103 H 30 H 98 11/24/23 06:30 101 H 30 H 98 11/24/23 06:20 70 11/24/23 06:15 103 H 30 H 99 11/24/23 06:00 101 H 30 H 99 80 11/24/23 05:45 101 H 30 H 98 11/24/23 05:30 105 H 30 H 96 11/24/23 05:15 100 31 H 97 11/24/23 05:00 101 H 31 H 96 80 11/24/23 04:45 98 31 H 96 11/24/23 04:38 97 11/24/23 04:30 100 30 H 97 11/24/23 04:29 80 11/24/23 04:27 98 11/24/23 04:15 101 H 31 H 97 11/24/23 04:00 98.7 F 101 H 31 H 97 90 11/24/23 03:45 102 H 34 H 96 11/24/23 03:30 105 H 33 H 97 11/24/23 03:15 108 H 37 H 97 11/24/23 03:10 90 11/24/23 03:00 112 H 30 H 96 90 11/24/23 02:45 112 H 24 94 L 11/24/23 02:30 114 H 24 95 11/24/23 02:15 124 H 38 H 94 L 11/24/23 02:00 9935 F H 124 H 37 H 95 100 11/24/23 01:45 125 H 40 H 94 L 11/24/23 01:36 124 H 11/24/23 01:30 125 H 29 H 94 L 11/24/23 01:15 120 H 34 H 88 L 11/24/23 01:14 125 H 11/24/23 01:00 130 H 24 106/54 86 L 100 11/24/23 00:45 129 H 28 H 127/76 85 L 100 11/24/23 00:30 123 H 24 113/62 89 L 11/24/23 00:23 100 11/24/23 00:15 125 H 43 H 111/67 89 L 11/24/23 00:00 123 H 43 H 112/69 90 L 95 11/23/23 23:45 123 H 50 H 103/64 91 L 11/23/23 23:30 122 H 45 H 111/73 91 L 11/23/23 23:15 125 H 33 H 119/63 89 L 11/23/23 23:00 124 H 40 H 117/79 89 L 95 11/23/23 22:45 126 H 45 H 114/76 88 L 11/23/23 22:30 129 H 44 H 109/70 90 L 11/23/23 22:18 95 90 11/23/23 22:15 126 H 22 110/71 88 L 11/23/23 22:00 130 H 37 H 110/71 91 L 95 11/23/23 21:55 143/71 90 L 11/23/23 21:11 95 90 11/23/23 21:09 134 H 35 H 101/83 92 L 11/23/23 19:52 149 H 11/23/23 19:49 149 H 42 H 107/69 99 11/23/23 19:42 100 11/23/23 19:37 151 H 11/23/23 19:03 100 11/23/23 18:55 101.4 F H 155 H 30 H 122/87 100 Intake and Output 11/23/23 11/24/23 11/24/23 22:59 06:59 14:59 Intake Total 1647 1623.532 279.895 Output Total 2335 60 Balance 1647 -711.468 219.895 Intake: IV 1647 1374 130 Azithromycin 500 mg In 250 Sodium Chloride 0.9% 250 ml @ 250 mls/hr IVPB ONCE [facility] Rx#:[id number] Cefepime 2 gm In Sodium 100 Chloride 0.9% 100 ml @ 200 mls/hr IVPB ONCE STA Rx#:[id number] Lactated Ringers 1,000 ml 520 130 @ 130 mls/hr IV .Q7H42M [facility] Rx#:[id number] Lactated Ringers 1,000 ml 1000 @ 999 mls/hr IV .Q1H1M [facility] Rx#:[id number] Sodium Chloride 0.9% 1, 130 520 000 ml @ 130 mls/hr IV . Q7H42M [facility] Rx#:[id number] Vancomycin 1,750 mg In 167 334 Sodium Chloride 0.9% 500 ml 500 ml @ 167 mls/hr IVPB Q12H [facility] Rx#: [id number] Intake, IV Titration 249.532 149.895 Amount Norepinephrine 32 mg In 16.008 Sodium Chloride 0.9% 218 ml @ 0.03 MCG/KG/MIN 1. 403 mls/hr IV .Q24H [facility] Rx#:[id number] Norepinephrine 4 mg In 7.034 Sodium Chloride 0.9% 250 ml @ 0.03 MCG/KG/MIN 11. 406 mls/hr IV .[id number] [facility] Rx#:[id number] fentaNYL (PF). 1,000 mcg 3.659 49.895 In Sodium Chloride 0.9% 80 ml @ 0.5 MCG/KG/HR 4. 99 mls/hr IV .Q20H3M [facility] Rx#:[id number] propofoL 1,000 mg In 222.831 100.000 Empty Bag 1 bag @ 15 MCG/ KG/MIN 8.981 mls/hr IV . Q11H9M [facility] Rx#:[id number] Output: Chest Tube Drainage 590 Chest Tube 150 Chest Tube Right 440 Urine 1745 60 Other: Voiding Method Indwelling Catheter Weight 99.79 kg 103.6 kg ABP, PAP, CO, CI - Last 8 Hours Arterial Blood Pressure 117/59 Arterial Blood Pressure 108/55 Arterial Blood Pressure 115/58 Arterial Blood Pressure 118/60 Arterial Blood Pressure 115/58 Arterial Blood Pressure 106/56 Arterial Blood Pressure 112/59 Arterial Blood Pressure 112/59 Arterial Blood Pressure 110/55 Arterial Blood Pressure 108/55 Arterial Blood Pressure 100/53 Arterial Blood Pressure 123/63 Arterial Blood Pressure 106/53 Arterial Blood Pressure 114/54 Arterial Blood Pressure 113/56 GENERAL DESCRIPTION: Middle-aged female intubated on the vent HEENT: Shows Pallor , no scleral icterus. Oral mucous membrane is dry. NECK: Trachea central, no thyromegaly. LUNGS: Unlabored breathing. Coarse breath sounds bilaterally HEART: S1, S2, regular rate and rhythm. No loud murmur ABDOMEN: Soft, no tenderness , guarding or rigidity, no organomegaly EXTREMITIES: No edema of feet. SKIN: No rash, no masses palpable. NEUROLOGICAL: The patient is sedated on the vent Results CBC & Chem 7: 12/12/23 05:59 12/12/23 05:59 Labs: Abnormal Lab Results - Last 24 Hours (Table) 11/23/23 11/23/23 11/23/23 Range/Units 18:58 18:58 18:58 WBC 23.8 H (3.8-10.6) k/uL RBC 3.53 L (3.80-5.40) m/uL Hgb 10.3 L (11.4-16.0) gm/dL Hct 31.9 L (34.0-46.0) % Plt Count 490 H (150-450) k/uL Neutrophils # (1.3-7.7) k/uL Neutrophils # (Manual) 23.30 H (1.3-7.7) k/uL Lymphocytes # (1.0-4.8) k/uL Lymphocytes # (Manual) 0.48 L (1.0-4.8) k/uL PT 13.2 H (10.0-12.5) sec INR 1.3 H (<1.2) D-Dimer 4.66 H (<0.60) mg/L FEU ABG pH (7.35-7.45) ABG pCO2 (35-45) mmHg ABG pO2 (83-108) mmHg ABG HCO3 (21-25) mmol/L ABG Total CO2 (19-24) mmol/L ABG O2 Saturation (94-97) % Sodium 129 L (137-145) mmol/L Chloride 92 L (98-107) mmol/L Carbon Dioxide (22-30) mmol/L BUN 44 H (7-17) mg/dL Glucose 121 H (74-99) mg/dL POC Glucose (mg/dL) (70-110) mg/dL Plasma Lactic Acid Tom (0.7-2.0) mmol/L Calcium 8.1 L (8.4-10.2) mg/dL Total Bilirubin 1.6 H (0.2-1.3) mg/dL AST 69 H (14-36) U/L ALT 64 H (4-34) U/L Total Protein 5.7 L (6.3-8.2) g/dL Albumin 2.8 L (3.5-5.0) g/dL Procalcitonin (0.02-0.09) ng/mL Cortisol (3.1-22.4) UG/DL Urine Opiates Screen (Negative) 11/23/23 11/23/23 11/23/23 Range/Units 18:58 19:09 22:01 WBC (3.8-10.6) k/uL RBC (3.80-5.40) m/uL Hgb (11.4-16.0) gm/dL Hct (34.0-46.0) % Plt Count (150-450) k/uL Neutrophils # (1.3-7.7) k/uL Neutrophils # (Manual) (1.3-7.7) k/uL Lymphocytes # (1.0-4.8) k/uL Lymphocytes # (Manual) (1.0-4.8) k/uL PT (10.0-12.5) sec INR (<1.2) D-Dimer (<0.60) mg/L FEU ABG pH 7.46 H (7.35-7.45) ABG pCO2 (35-45) mmHg ABG pO2 81 L 57 L* (83-108) mmHg ABG HCO3 27 H (21-25) mmol/L ABG Total CO2 28 H 27 H (19-24) mmol/L ABG O2 Saturation 88.0 L (94-97) % Sodium (137-145) mmol/L Chloride (98-107) mmol/L Carbon Dioxide (22-30) mmol/L BUN (7-17) mg/dL Glucose (74-99) mg/dL POC Glucose (mg/dL) (70-110) mg/dL Plasma Lactic Acid Tom 2.8 H* (0.7-2.0) mmol/L Calcium (8.4-10.2) mg/dL Total Bilirubin (0.2-1.3) mg/dL AST (14-36) U/L ALT (4-34) U/L Total Protein (6.3-8.2) g/dL Albumin (3.5-5.0) g/dL Procalcitonin (0.02-0.09) ng/mL Cortisol (3.1-22.4) UG/DL Urine Opiates Screen (Negative) 11/23/23 11/24/23 11/24/23 Range/Units 23:56 00:50 02:20 WBC (3.8-10.6) k/uL RBC (3.80-5.40) m/uL Hgb (11.4-16.0) gm/dL Hct (34.0-46.0) % Plt Count (150-450) k/uL Neutrophils # (1.3-7.7) k/uL Neutrophils # (Manual) (1.3-7.7) k/uL Lymphocytes # (1.0-4.8) k/uL Lymphocytes # (Manual) (1.0-4.8) k/uL PT (10.0-12.5) sec INR (<1.2) D-Dimer (<0.60) mg/L FEU ABG pH 7.32 L (7.35-7.45) ABG pCO2 50 H (35-45) mmHg ABG pO2 64 L 65 L (83-108) mmHg ABG HCO3 26 H (21-25) mmol/L ABG Total CO2 27 H 28 H (19-24) mmol/L ABG O2 Saturation 91.0 L 88.0 L (94-97) % Sodium (137-145) mmol/L Chloride (98-107) mmol/L Carbon Dioxide (22-30) mmol/L BUN (7-17) mg/dL Glucose (74-99) mg/dL POC Glucose (mg/dL) 163 H (70-110) mg/dL Plasma Lactic Acid Tom (0.7-2.0) mmol/L Calcium (8.4-10.2) mg/dL Total Bilirubin (0.2-1.3) mg/dL AST (14-36) U/L ALT (4-34) U/L Total Protein (6.3-8.2) g/dL Albumin (3.5-5.0) g/dL Procalcitonin (0.02-0.09) ng/mL Cortisol (3.1-22.4) UG/DL Urine Opiates Screen (Negative) 11/24/23 11/24/23 11/24/23 Range/Units 02:27 02:27 02:27 WBC 23.7 H (3.8-10.6) k/uL RBC 3.18 L (3.80-5.40) m/uL Hgb 9.8 L (11.4-16.0) gm/dL Hct 29.3 L (34.0-46.0) % Plt Count 474 H (150-450) k/uL Neutrophils # 22.0 H (1.3-7.7) k/uL Neutrophils # (Manual) (1.3-7.7) k/uL Lymphocytes # 0.9 L (1.0-4.8) k/uL Lymphocytes # (Manual) (1.0-4.8) k/uL PT (10.0-12.5) sec INR (<1.2) D-Dimer (<0.60) mg/L FEU ABG pH (7.35-7.45) ABG pCO2 (35-45) mmHg ABG pO2 (83-108) mmHg ABG HCO3 (21-25) mmol/L ABG Total CO2 (19-24) mmol/L ABG O2 Saturation (94-97) % Sodium 133 L (137-145) mmol/L Chloride (98-107) mmol/L Carbon Dioxide 18 L (22-30) mmol/L BUN 33 H (7-17) mg/dL Glucose 143 H (74-99) mg/dL POC Glucose (mg/dL) (70-110) mg/dL Plasma Lactic Acid Tom (0.7-2.0) mmol/L Calcium 7.6 L (8.4-10.2) mg/dL Total Bilirubin (0.2-1.3) mg/dL AST (14-36) U/L ALT (4-34) U/L Total Protein (6.3-8.2) g/dL Albumin (3.5-5.0) g/dL Procalcitonin (0.02-0.09) ng/mL Cortisol 30.5 H (3.1-22.4) UG/DL Urine Opiates Screen (Negative) 11/24/23 11/24/23 11/24/23 Range/Units 02:27 03:00 03:40 WBC (3.8-10.6) k/uL RBC (3.80-5.40) m/uL Hgb (11.4-16.0) gm/dL Hct (34.0-46.0) % Plt Count (150-450) k/uL Neutrophils # (1.3-7.7) k/uL Neutrophils # (Manual) (1.3-7.7) k/uL Lymphocytes # (1.0-4.8) k/uL Lymphocytes # (Manual) (1.0-4.8) k/uL PT (10.0-12.5) sec INR (<1.2) D-Dimer (<0.60) mg/L FEU ABG pH 7.31 L (7.35-7.45) ABG pCO2 (35-45) mmHg ABG pO2 (83-108) mmHg ABG HCO3 (21-25) mmol/L ABG Total CO2 (19-24) mmol/L ABG O2 Saturation (94-97) % Sodium (137-145) mmol/L Chloride (98-107) mmol/L Carbon Dioxide (22-30) mmol/L BUN (7-17) mg/dL Glucose (74-99) mg/dL POC Glucose (mg/dL) (70-110) mg/dL Plasma Lactic Acid Tom (0.7-2.0) mmol/L Calcium (8.4-10.2) mg/dL Total Bilirubin (0.2-1.3) mg/dL AST (14-36) U/L ALT (4-34) U/L Total Protein (6.3-8.2) g/dL Albumin (3.5-5.0) g/dL Procalcitonin 2.40 H (0.02-0.09) ng/mL Cortisol (3.1-22.4) UG/DL Urine Opiates Screen Positive A (Negative) 11/24/23 11/24/23 Range/Units 06:13 06:23 WBC (3.8-10.6) k/uL RBC (3.80-5.40) m/uL Hgb (11.4-16.0) gm/dL Hct (34.0-46.0) % Plt Count (150-450) k/uL Neutrophils # (1.3-7.7) k/uL Neutrophils # (Manual) (1.3-7.7) k/uL Lymphocytes # (1.0-4.8) k/uL Lymphocytes # (Manual) (1.0-4.8) k/uL PT (10.0-12.5) sec INR (<1.2) D-Dimer (<0.60) mg/L FEU ABG pH 7.33 L (7.35-7.45) ABG pCO2 (35-45) mmHg ABG pO2 147 H (83-108) mmHg ABG HCO3 (21-25) mmol/L ABG Total CO2 (19-24) mmol/L ABG O2 Saturation 98.0 H (94-97) % Sodium (137-145) mmol/L Chloride (98-107) mmol/L Carbon Dioxide (22-30) mmol/L BUN (7-17) mg/dL Glucose (74-99) mg/dL POC Glucose (mg/dL) 168 H (70-110) mg/dL Plasma Lactic Acid Tom (0.7-2.0) mmol/L Calcium (8.4-10.2) mg/dL Total Bilirubin (0.2-1.3) mg/dL AST (14-36) U/L ALT (4-34) U/L Total Protein (6.3-8.2) g/dL Albumin (3.5-5.0) g/dL Procalcitonin (0.02-0.09) ng/mL Cortisol (3.1-22.4) UG/DL Urine Opiates Screen (Negative) Assessment and Plan (1) Allergy to multiple antibiotics Status: Acute Code(s): Z88.1 - ALLERGY STATUS TO OTHER ANTIBIOTIC AGENTS SNOMED Code(s): 613077365 (2) Empyema Status: Acute Code(s): J86.9 - PYOTHORAX WITHOUT FISTULA SNOMED Code(s): 645335929 (3) Pneumonia Status: Acute Code(s): J18.9 - PNEUMONIA, UNSPECIFIED ORGANISM SNOMED Code(s): 686812989 (4) Sepsis Status: Acute Code(s): A41.9 - SEPSIS, UNSPECIFIED ORGANISM SNOMED Code(s): 18656689 Plan: 1patient presented to hospital with sepsis in this patient who did have a fever tachycardia elevated white count source is pulmonary in this patient noted evidence of bilateral pneumothorax and effusion with question of complicated pneumonia/empyema keeping in mind the patient is from local assisted will need to cover for resistant gram-positive such as MRSA and gram-negative pathogen 2-vancomycin pharmacy to dose target trough of 15 while watching kidney function and Vanco trough closely and cefepime should provide adequate antibiotic coverage empirically while waiting for the culture to finalize We will follow on clinical condition and cultures to further adjust medication if needed Thank you for this consultation we will follow the patient along with you Dictation was produced using [employer] dictation software. please excuse any grammatical, word or spelling errors. Time with Patient: Greater than 30
[2023-11-24] MEDS: ACETAMINOPHEN IV (For NPO) 1,000 MG in EMPTY BAG 1 BAG IVPB PRN (22:27)
[2023-11-25 00:16] LABS: Glucose,Whole Blood 145 mg/dL (70-110)
[2023-11-25 04:25] LABS: Basophils % (A) 0 %; Eosinophils % (A) 0 %; HCT 25.6 % (34.0-46.0); Lymphocytes # (A) 0.8 k/uL (1.0-4.8); Lymphocytes % (A) 6 %; MCH 29.5 pg (25.0-35.0); MCHC 31.6 g/dL (31.0-37.0); MCV 93.4 fL (80.0-100.0); Mean Platelet Volume 8.1; Monocytes # (A) 0.2 k/uL (0-1.0); Monocytes % (A) 1 %; Neutrophils # (A) 11.6 k/uL (1.3-7.7); Neutrophils % (A) 92 %; Platelet Count 380 k/uL (150-450); RBC 2.74 m/uL (3.80-5.40); RDW 13.3 % (11.5-15.5); WBC 12.6 k/uL (3.8-10.6)
[2023-11-25 04:44] LABS: HGB 8.1 gm/dL (11.4-16.0)
[2023-11-25 04:58] LABS: African American GFR (CKD) >90 (>60 ml/min/1.73 sqM); Anion Gap 5 mmol/L; Blood Urea Nitrogen 12 mg/dL (7-17); Calcium 7.6 mg/dL (8.4-10.2); Carbon Dioxide 29 mmol/L (22-30); Chloride 107 mmol/L (98-107); Glucose 135 mg/dL (74-99); Non-African American GFR(CKD) >90 (>60 ml/min/1.73 sqM); Potassium 3.5 mmol/L (3.5-5.1); Sodium 141 mmol/L (137-145)
[2023-11-25] MEDS ORDERED: Potassium Replacement Protocol 1 EACH MISC MISCELLANE PRN (05:29)
[2023-11-25] MEDS: POTASSIUM CHLORIDE 20 MEQ in WATER FOR INJECTION 1 100ML.BAG IVPB SCH (05:39)
[2023-11-25 05:55] LABS: ABG Base Excess 7.2 mmol/L; ABG HCO3 31 mmol/L (21-25); ABG PCO2 41 mmHg (35-45); ABG PH 7.48 (7.35-7.45); ABG PO2 102 mmHg (83-108); ABG TCO2 32 mmol/L (19-24); Allen Test Performed? Yes
[2023-11-25 06:09] LABS: Glucose,Whole Blood 143 mg/dL (70-110)
--- NOTE | 2023-11-25 08:16 | XR ---
EXAMINATION TYPE: XR chest 1V portable DATE OF EXAM: 11/25/2023 5:26 AM CLINICAL INDICATION:Female, 43 years old with history of Tube placement; [facility] COMPARISON: Chest radiographs from 11/24/2023. TECHNIQUE: XR chest 1V portable Frontal view of the chest. FINDINGS: Lungs/Pleura: Bilateral pneumothorax which is increased in size on the right and is stable in size on the left. Similar airspace opacities in the left midlung and right lung base. There is no evidence o f pleural effusion, or focal consolidation. Pulmonary vascularity: Unremarkable. Heart/mediastinum: Cardiomediastinal silhouette is unremarkable. Musculoskeletal: No acute osseous pathology. Other findings: None Lines/Tubes: Endotracheal tube with distal tip 2.7 cm above the alicia. Nasogastric tube with its distal tip and side-port projecting under the diaphragm. Left central venous catheter with distal tip at the cavoatrial junction. Bilateral thoracotomy tubes are present without evidence of pneumothorax. There is increased right pn eumothorax and stable left pneumothorax. IMPRESSION: 1. Bilateral thoracotomy tubes with persistent bilateral pneumothoraces. Right as well the left brent in stable. 2. Endotracheal tube and nasogastric tube in appropriate position.
--- NOTE | 2023-11-25 09:51 | P.PN ---
Subjective Progress Note Date: 11/25/23 Principal diagnosis: Acute hypoxic respiratory failure requiring mechanical ventilation, bilateral hydropneumothoraces, empyema, status post bilateral chest tube insertion, septic shock. History of MS, obesity, migraines, seizures, fibromyalgia, hypertension, asthma, anxiety/depression/bipolar disorder, polysubstance abuse The patient was seen and examined this morning laying in bed in the intensive care unit, remains sedated and mechanically ventilated. Yesterday the patient was seen and examined by Dr. Royal, recommend no surgical intervention at this standpoint, conservative management. We did instill lytics to her right pleural chest tube with 650 mL output, no lytics instilled in the left pleural chest tube as there is still a continuous airleak present. Patient does have MRSA in her blood and thoracic fluid preliminarily, currently on IV Vanco and cefepime. No evidence of vegetation on her cardiac valves on echocardiogram. Remains sedated with propofol, fentanyl, Versed. IV vaso has been weaned off, levo weaned down. Nursing reports patient does withdraw to painful stimuli but does not follow any commands, has not had a sedation holiday yet. WBC trending down. Objective - Vital Signs Vital signs: Vital Signs Temp 98.7 F 11/25/23 04:00 Pulse 104 H 11/25/23 08:22 Resp 30 H 11/25/23 07:00 BP 128/70 11/25/23 00:22 Pulse Ox 98 11/25/23 07:00 FiO2 50 11/25/23 08:13 Intake & Output 11/24/23 11/25/23 11/25/23 18:59 06:59 18:59 Intake Total 2759.919 3624.274 350.519 Output Total 1530 2287 55 Balance 3062.306 3763.274 295.519 Weight 103.6 kg 105.8 kg Intake: IV 1703 2653 100 .9 kvo 143 93 ACETAMINOPHEN IV (For NPO 400 ) 1,000 mg In Empty Bag 1 bag @ 400 mls/hr IVPB Q6HR PRN Rx#:[id number] Cefepime 2 gm In Sodium 100 Chloride 0.9% 100 ml @ 200 mls/hr IVPB ONCE [facility] Rx#:[id number] Lactated Ringers 1,000 ml 1560 1560 @ 130 mls/hr IV .Q7H42M [facility] Rx#:[id number] Potassium Chloride 20 meq 100 In Water For Injection 1 100ml.bag @ 50 mls/hr IVPB Q2H [facility] Rx#: [id number] Vancomycin 1,750 mg In 500 Sodium Chloride 0.9% 500 ml 500 ml @ 167 mls/hr IVPB Q12H [facility] Rx#: [id number] Intake, IV Titration 1056.919 711.274 230.519 Amount Cefepime 2 gm In Sodium 50 Chloride 0.9% 100 ml @ 25 mls/hr IVPB Q8H [facility] Rx#: [id number] Midazolam HCl 50 mg In 1.633 20.233 Sodium Chloride 0.9% 40 ml @ 1 MG/HR 1 mls/hr IV .Q24H [facility] Rx#:[id number] Norepinephrine 32 mg In 26.88 50.000 Sodium Chloride 0.9% 218 ml @ 0.03 MCG/KG/MIN 1. 403 mls/hr IV .Q24H [facility] Rx#:[id number] Vancomycin 1,750 mg In 500 Sodium Chloride 0.9% 500 ml 500 ml @ 167 mls/hr IVPB Q12H [facility] Rx#: [id number] Vasopressin 20 unit In 40.112 Sodium Chloride 0.9% 50 ml @ 0.03 UNITS/MIN 4.59 mls/hr IV .Q11H7M [facility] Rx# :[id number] fentaNYL (PF). 1,000 mcg 96.341 162.165 71.851 In Sodium Chloride 0.9% 80 ml @ 0.5 MCG/KG/HR 4. 99 mls/hr IV .Q20H3M [facility] Rx#:[id number] propofoL 1,000 mg In 341.953 478.876 158.668 Empty Bag 1 bag @ 15 MCG/ KG/MIN 8.981 mls/hr IV . Q11H9M [facility] Rx#:[id number] Tube Feeding 170 20 Other 90 Output: Chest Tube Drainage 130 772 20 Chest Tube 100 162 0 Chest Tube Right 30 610 20 Urine 1400 1515 35 Other: Voiding Method Indwelling Catheter Indwelling Catheter ABP, PAP, CO, CI - Last Documented Arterial Blood Pressure 118/57 - Exam CONSTITUTIONAL: Currently sedated on mechanical ventilation, laying in bed in the intensive care unit RESPIRATORY: Lungs sounds diminished bilaterally, expiratory wheezes heard throughout. Respirations even, nonlabored on mechanical ventilation, current settings assist-control mode, FiO2 50%, tidal volume 400, PEEP 5, respiratory rate 30. CARDIOVASCULAR: S1, S2 present. Regular rate and rhythm, sinus rhythm to sinus tach on telemetry. Palpable peripheral pulses bilaterally. Generalized trace edema present. No calf pain or tenderness noted. SCDs present. GASTROINTESTINAL: Abdomen soft, nontender, nondistended. Active bowel sounds present 4 quadrants. OG tube present, tube feeding infusing at 20 mL/h GENITOURINARY: Beth present draining clear, yellow urine. Output 60-205 mL/h overnight, 2915 mL in the last 24 hours INTEGUMENTARY: Skin is warm and dry NEUROLOGIC: Sedated on mechanical ventilation INVASIVE LINES AND TUBES: Left/right pleural chest tubes present and connected to wall suction, continuous air leak present in the left pleural chest tube. Left pleural chest tube with 101 mL purulent drainage overnight, 150 mL in the last 24 hours. Right pleural chest tube with 570 mL serosanguineous drainage overnight, 650 mL last 24 hours. - Allied health notes Allied health notes reviewed: nursing - Labs CBC & Chem 7: 11/25/23 04:05 11/25/23 04:05 Labs: Abnormal Lab Results - Last 24 Hours (Table) 11/24/23 11/24/23 11/24/23 Range/Units 03:40 11:51 18:02 WBC (3.8-10.6) k/uL RBC (3.80-5.40) m/uL Hgb (11.4-16.0) gm/dL Hct (34.0-46.0) % Neutrophils # (1.3-7.7) k/uL Lymphocytes # (1.0-4.8) k/uL ABG pH (7.35-7.45) ABG HCO3 (21-25) mmol/L ABG Total CO2 (19-24) mmol/L ABG O2 Saturation (94-97) % Glucose (74-99) mg/dL POC Glucose (mg/dL) 170 H 143 H (70-110) mg/dL Calcium (8.4-10.2) mg/dL Urine Opiates Screen Positive A (Negative) 11/25/23 11/25/23 11/25/23 Range/Units 00:02 04:05 04:05 WBC 12.6 H (3.8-10.6) k/uL RBC 2.74 L (3.80-5.40) m/uL Hgb 8.1 L D (11.4-16.0) gm/dL Hct 25.6 L (34.0-46.0) % Neutrophils # 11.6 H (1.3-7.7) k/uL Lymphocytes # 0.8 L (1.0-4.8) k/uL ABG pH (7.35-7.45) ABG HCO3 (21-25) mmol/L ABG Total CO2 (19-24) mmol/L ABG O2 Saturation (94-97) % Glucose 135 H (74-99) mg/dL POC Glucose (mg/dL) 145 H (70-110) mg/dL Calcium 7.6 L (8.4-10.2) mg/dL Urine Opiates Screen (Negative) 11/25/23 11/25/23 Range/Units 05:52 06:06 WBC (3.8-10.6) k/uL RBC (3.80-5.40) m/uL Hgb (11.4-16.0) gm/dL Hct (34.0-46.0) % Neutrophils # (1.3-7.7) k/uL Lymphocytes # (1.0-4.8) k/uL ABG pH 7.48 H (7.35-7.45) ABG HCO3 31 H (21-25) mmol/L ABG Total CO2 32 H (19-24) mmol/L ABG O2 Saturation 98.0 H (94-97) % Glucose (74-99) mg/dL POC Glucose (mg/dL) 143 H (70-110) mg/dL Calcium (8.4-10.2) mg/dL Urine Opiates Screen (Negative) Microbiology - Last 24 Hours (Table) 11/23/23 22:15 Blood Culture Gram Stain - Preliminary Blood Blood Culture - Preliminary Molecular ID 11/23/23 22:00 Blood Culture Gram Stain - Preliminary Blood 11/23/23 20:46 Gram Stain - Preliminary Chest Wound Culture - Preliminary Presumptive MRSA 11/24/23 08:02 Gram Stain - Preliminary Thoracic Fluid 11/24/23 00:57 Gram Stain - Preliminary Sputum - Imaging and Cardiology Chest x-ray: report reviewed, image reviewed Assessment and Plan Assessment: Acute hypoxic respiratory failure requiring mechanical ventilation Bilateral hydropneumothoraces, empyema, status post bilateral chest tube insertion Septic shock, requiring IV vasopressors Chest pain, shortness of breath present on admission secondary to above History of MS Obesity Migraines Seizures Fibromyalgia Hypertension, currently hypotensive on pressors Asthma Anxiety/depression/bipolar disorder Polysubstance abuse Plan: No surgical intervention planned at this time, conservative management Will instill lytics into the right pleural chest tube again and allowed to dwell for 1-2 hours Ventilator management per panel machine operator Wean pressors as able Antibiotics per infectious disease Medical management of other comorbidities per internal medicine, pulmonology, ID More recommendations to follow
[2023-11-25] MEDS: ALTEPLASE 10 MG in SODIUM CHLORIDE 0.9% 50 ML IRRIGATION ONE (11:03)
[2023-11-25] MEDS: DORNASE ALFA 5 MG in SODIUM CHLORIDE 0.9% 50 ML IRRIGATION ONE (11:03)
[2023-11-25 11:24] LABS: Glucose,Whole Blood 129 mg/dL (70-110)
--- NOTE | 2023-11-25 12:19 | P.PN ---
Subjective Progress Note Date: 11/25/23 Principal diagnosis: Acute hypoxic respiratory failure secondary to bilateral pn eumonia/empyema/hydropneumothorax This is a 43-year-old female patient who is currently incarcerated who presented from a local shelter with shortness of breath and chest pain. Apparently, the patient has been having the symptoms for the past 3 weeks. She stated that she was having right-sided lateral chest pain along with difficulty breathing. In the emergency, the patient was extremely short of breath, tachycardic and hypoxic. She was also having cough. She was running a fever of 101.4. She was tachycardic with a heart rate of 155. Blood pressure was still stable at that point. She was placed on 100% nonrebreather facemask. A quick chest x-ray was done and the chest x-ray was abnormal with evidence of bilateral pneumothoraces moderate size right and large left-sided pneumothorax. There was also small right-sided pleural effusion and moderate-sized left-sided pleural effusion. There was near complete collapse of the left lung with scattered areas of scattered lung along the pleura. There was also consolidation involving the right lower lobe and the right middle lobe. Based on those findings, the patient was given a CTA of the chest that showed no evidence of pneumothorax. Similar findings were noted with the patient was found to have bilateral pneumothoraces. Pleural effusions were again noted large on the left and moderate-sized on the right. No evidence of any filling defects. At that point, a left-sided chest tube was inserted and copious amount of purulent material was drained from the left lung a total of 800 cc of pus and has already drained from the left lung. The patient was moved to the intensive care unit. She was quite short of breath. She was initially on Airvo system with an FiO2 of 90% with a 60 L flow. She became more short of breath and hemodynamically unstable and hypotensive. At that point, the decision was to intubate the patient and placed on mechanical ventilation. Postintubation, the patient developed peak pressuring. There was worsening in the air leak in the left lung chest tube. At the same time, the patient became unstable and became progressively more hypotensive. Pressors were initiated and the patient is c urrently on norepinephrine running at 0.3 mcg/kg/min. Repeat chest x-ray was done and it showed worsening of the right-sided pneumothorax. I attended on this patient and immediately inserted triple-lumen catheter for vascular access and hemodynamic support. Resuscitation was continued. At the same time, I inserted a right-sided chest tube and another 400 cc of purulent material was aspirated from the right lung. Subsequent chest x-ray showed reexpansion of the right lung without any evidence of residual pneumothorax. Left lung is extensively consolidated and there is a loculated pneumothorax in the left posterior lateral aspect. At this point in time, the patient is intubated on mechanical ventilator. She is on an assist-control mode at rate of 30, tidal volume of 400, FiO2 is at 100% with a PEEP of 5. She is on norepinephrine. This is being weaned off. She is sedated with propofol which is running at 70 mcg/kg/min. She is also on normal saline at rate of 130 cc an hour. The patient is adequately sedated. She was given also a dose of Nimbex during those procedures. The white cell count is at 23.8 with a hemoglobin of 10.3 and a platelet count of 419. The most recent blood gas showed a pH of 7.32 and a pCO2 of 50 and pO2 of 65 and this was done prior to the insertion of the right-sided chest tube. The sodium is at 129 with a potassium level of 3.9 with a bicarb of 23 and a BUN of 44 with a creatinine of 0.9. Lactic acid level initially was at 2.8 and currently down to 1.5. LFTs are mildly elevated with an AST of 69, ALT of 64, troponins are negative and the proBNP level is within normal limits. The viral screen was also negative. Blood cultures were sent. The patient was started on a combination of IV cefepime, vancomycin and Zithromax. Based on her past medical history, this patient has history of multiple sclerosis, she is morbidly obese, she has history of migraine seizure disorder and fibromyalgia and hypertension. She also has history of anxiety and depression. She has history of polysubstance abuse which includes heroin heroin, cocaine, marijuana and marijuana use. She also does prescription pills. Her last hospital admission was back in November 2022 and at that time the patient was treated for exacerbation of her multiple sclerosis. Patient was evaluated this morning, patient is hemodynamically unstable, still requiring norepinephrine at 0.08 mcg/kg/min she is also requiring vasopressin at 0.03 units/h. Patient is receiving LR at 150 cc/h. Chest x-ray continues to show hydropneumothorax, both chest tubes are draining purulent and serosanguineous material the left-sided chest tube is draining pus, and the right-sided chest tube is draining serosanguineous liquid. Right sided drained 400 cc since last night and the left side drained 800 cc since last night. Clearly the patient has empyema she may or may not require decortication or thrombolytic instillation into the pleural space. Patient continues to have air leak in both chest tubes. She is on assist-control rate of 30 tidal volume 400 FiO2 down to 50% PEEP of 5 last ABG showed a pO2 of 147 pCO2 42 pH of 7.33. Thoracic surgery was consulted and infectious disease was also consulted. Patient is receiving presently vancomycin and cefepime, she has allergies to penicillin hence Zosyn was discontinued. Her urine output is reasonable, patient received 3 L of fluid boluses and she is on IV fluid at 130 cc/h. Patient is critically ill. Continues to have leukocytosis with WBC count of 23.7 hemoglobin 9.8. Basic metabolic profile is normal. Urine test is positive for opiates Patient was reevaluated today on 11/25/2023, remains in the ICU intubated and mechanically ventilated. Patient is on assist-control of 3 0 tidal volume 400 FiO2 50% PEEP of 5 ABG showed a pO2 of 102 pCO2 41 pH of 7.48, hence no changes were made in present vent settings. Patient remains on antibiotics in the form of vancomycin and cefepime, we are treating positive blood cultures for MRSA and positive left-sided pleural effusion which is positive for MRSA. Patient is receiving fentanyl at 2 mcg/kg/h propofol at 75 mcg/kg/min Versed at 2 mg/h norepinephrine at 0.05 mcg/kg/min. IV fluid is running at 130 cc/h in the form of lactated Ringer's. Urine output has been excellent over 50 cc an hour. Chest x-ray continues to show evidence of bilateral pneumothoraces, there is a loculated left-sided pneumothorax and there is a apical right-sided pneumothorax. The drainage from the left-sided chest tube is noted to be purulent drainage from the right-sided chest tube is noted to be serosanguineous. Patient did receive lytic treatment to the loculated effusion on the right side, but no lytics applied to the left side. Patient is having air leak in the left-sided chest tube, but no air leak noted in the right-sided chest tube although the patient does have a small apical pneumothorax noted. WBC count today is 12.6 hemoglobin 8.1, basic metabolic profile is normal renal profile is normal. Objective - Vital Signs Vital signs: Vital Signs Temp 97.9 F 11/25/23 08:00 Pulse 103 H 11/25/23 11:44 Resp 30 H 11/25/23 11:30 BP 128/70 11/25/23 00:22 Pulse Ox 95 11/25/23 11:30 FiO2 50 11/25/23 11:41 Intake & Output 11/24/23 11/25/23 11/25/23 18:59 06:59 18:59 Intake Total 2759.919 3624.274 1853.813 Output Total 1530 2287 395 Balance 4767.640 4121.274 1458.813 Weight 103.6 kg 105.8 kg Intake: IV 1703 2653 872 .9 kvo 143 93 52 ACETAMINOPHEN IV (For NPO 400 ) 1,000 mg In Empty Bag 1 bag @ 400 mls/hr IVPB Q6HR PRN Rx#:[id number] Cefepime 2 gm In Sodium 100 Chloride 0.9% 100 ml @ 200 mls/hr IVPB ONCE STA Rx#:[id number] Lactated Ringers 1,000 ml 1560 1560 520 @ 130 mls/hr IV .Q7H42M [facility] Rx#:[id number] Potassium Chloride 20 meq 300 In Water For Injection 1 100ml.bag @ 50 mls/hr IVPB Q2H [facility] Rx#: [id number] Vancomycin 1,750 mg In 500 Sodium Chloride 0.9% 500 ml 500 ml @ 167 mls/hr IVPB Q12H [facility] Rx#: [id number] Intake, IV Titration 1056.919 711.274 961.813 Amount Cefepime 2 gm In Sodium 50 100 Chloride 0.9% 100 ml @ 25 mls/hr IVPB Q8H [facility] Rx#: [id number] Midazolam HCl 50 mg In 1.633 20.233 25 Sodium Chloride 0.9% 40 ml @ 1 MG/HR 1 mls/hr IV .Q24H [facility] Rx#:[id number] Norepinephrine 32 mg In 26.88 50.000 9.746 Sodium Chloride 0.9% 218 ml @ 0.03 MCG/KG/MIN 1. 403 mls/hr IV .Q24H [facility] Rx#:[id number] Vancomycin 1,750 mg In 500 500 Sodium Chloride 0.9% 500 ml 500 ml @ 167 mls/hr IVPB Q12H [facility] Rx#: [id number] Vasopressin 20 unit In 40.112 Sodium Chloride 0.9% 50 ml @ 0.03 UNITS/MIN 4.59 mls/hr IV .Q11H7M [facility] Rx# :[id number] fentaNYL (PF). 1,000 mcg 96.341 162.165 121.498 In Sodium Chloride 0.9% 80 ml @ 0.5 MCG/KG/HR 4. 99 mls/hr IV .Q20H3M [facility] Rx#:[id number] propofoL 1,000 mg In 341.953 478.876 205.569 Empty Bag 1 bag @ 15 MCG/ KG/MIN 8.981 mls/hr IV . Q11H9M [facility] Rx#:[id number] Tube Feeding 170 20 Other 90 Output: Chest Tube Drainage 130 772 40 Chest Tube 100 162 0 Chest Tube Right 30 610 40 Urine 1400 1515 355 Other: Voiding Method Indwelling Catheter Indwelling Catheter Indwelling Catheter ABP, PAP, CO, CI - Last Documented Arterial Blood Pressure 110/54 - Exam General: Revealed 43-year-old female intubated, obese, stated, not in distress Skin: Skin is warm and dry and no rashes or lesions are noted. Eye: Pupils are equal, round and reactive to light, extra-ocular movements are intact; there is normal conjunctiva bilaterally. Ears, nose, mouth and throat: There are moist mucous membranes and no oral lesions. Neck: The neck is supple, there is no tenderness or JVD. Cardiovascular: There is a regular rate and rhythm. No murmur, rub or gallop is appreciated. Respiratory: Crackles and rhonchi noted bilaterally chest tubes noted on both sides. Gastrointestinal: Obese, soft, nontender, no megaly no rebound. Back: There is no tenderness to palpation in the midline. There is no obvious deformity. Musculoskeletal: No deformities noted Neurological: Not assessed patient is sedated, on propofol, Versed, and fentanyl. Psychiatric: Could not assess mostly because of sedation. - Labs CBC & Chem 7: 11/25/23 04:05 11/25/23 04:05 Labs: Abnormal Lab Results - Last 24 Hours (Table) 11/24/23 11/25/23 11/25/23 Range/Units 18:02 00:02 04:05 WBC 12.6 H (3.8-10.6) k/uL RBC 2.74 L (3.80-5.40) m/uL Hgb 8.1 L D (11.4-16.0) gm/dL Hct 25.6 L (34.0-46.0) % Neutrophils # 11.6 H (1.3-7.7) k/uL Lymphocytes # 0.8 L (1.0-4.8) k/uL ABG pH (7.35-7.45) ABG HCO3 (21-25) mmol/L ABG Total CO2 (19-24) mmol/L ABG O2 Saturation (94-97) % Glucose (74-99) mg/dL POC Glucose (mg/dL) 143 H 145 H (70-110) mg/dL Calcium (8.4-10.2) mg/dL 11/25/23 11/25/23 11/25/23 Range/Units 04:05 05:52 06:06 WBC (3.8-10.6) k/uL RBC (3.80-5.40) m/uL Hgb (11.4-16.0) gm/dL Hct (34.0-46.0) % Neutrophils # (1.3-7.7) k/uL Lymphocytes # (1.0-4.8) k/uL ABG pH 7.48 H (7.35-7.45) ABG HCO3 31 H (21-25) mmol/L ABG Total CO2 32 H (19-24) mmol/L ABG O2 Saturation 98.0 H (94-97) % Glucose 135 H (74-99) mg/dL POC Glucose (mg/dL) 143 H (70-110) mg/dL Calcium 7.6 L (8.4-10.2) mg/dL 11/25/23 Range/Units 11:23 WBC (3.8-10.6) k/uL RBC (3.80-5.40) m/uL Hgb (11.4-16.0) gm/dL Hct (34.0-46.0) % Neutrophils # (1.3-7.7) k/uL Lymphocytes # (1.0-4.8) k/uL ABG pH (7.35-7.45) ABG HCO3 (21-25) mmol/L ABG Total CO2 (19-24) mmol/L ABG O2 Saturation (94-97) % Glucose (74-99) mg/dL POC Glucose (mg/dL) 129 H (70-110) mg/dL Calcium (8.4-10.2) mg/dL Microbiology - Last 24 Hours (Table) 11/24/23 00:57 Gram Stain - Preliminary Sputum Sputum Culture - Preliminary Presumptive Staph aureus 11/24/23 08:02 Gram Stain - Preliminary Thoracic Fluid Body Fluid Culture - Preliminary Presumptive MRSA 11/23/23 22:15 Blood Culture Gram Stain - Preliminary Blood Blood Culture - Preliminary Molecular ID 11/23/23 22:00 Blood Culture Gram Stain - Preliminary Blood 11/23/23 20:46 Gram Stain - Preliminary Chest Wound Culture - Preliminary Presumptive MRSA Assessment and Plan Assessment: Impression:Acute hypoxic respiratory failure Acute bilateral pneumonia with empyema Acute bacteremia secondary to MRSA secondary to empyema/pneumonia Acute sepsis and septic shock secondary to above Acute leukocytosis, improving History of polysubstance abuse History of MS History of depression and anxiety History of interstitial cystitis and UTI Fibromyalgia Chronic pain syndrome History of seizure disorder Degenerative joint disease Benign essential hypertension Morbid obesity Recommendation: Continue ventilatory support, no changes made Continue bilateral chest tubes to suction and continue to monitor drainage and airleak. Continue vancomycin and cefepime Echocardiogram noted, no acute process Continue pressors and hemodynamic support Continue nutritional support/enteral feeding Continue DVT prophylaxis and continue GI prophylaxis Patient is critically ill. Critical care time is over 30-minute Time with Patient: Greater than 30
--- NOTE | 2023-11-25 12:49 | P.PN ---
Subjective Progress Note Date: 11/25/23 patient 43-year-old lady who is currently incarcerated and was brought to the ER for chest pain and shortness of breath. Most of the history is been taken from the electronic medical record according to which patient has been having shortness of breath for the last few weeks. Patient also been complaining of cough and chest pain. Patient also has having fevers at the facility. Because of the symptoms, patient was brought to the ER. Where patient was found to be extremely tachycardic and hypoxic, patient had to be placed on 100% nonrebreather mask. Initial chest x-ray done showed bilateral pneumothoraces with moderate size right large left-sided pneumothorax. Initial lab work done in the ER showed WBC 23.8, hemoglobin 9.3, platelet count 490, INR 1.3, D-dimer 4.66, sodium 129, potassium 3.9, BUN 44, creatinine 0.96, glucose 121, lactate 2.8, AST 16, ALT 64 Influenza A not detected Influenza B not detected RSV not detected COVID-19 not detected CTA chest done in the ER showed bilateral hydropneumothoraces, there is a small to moderate right and large left pneumothorax small right and moderate left pleural effusions. Areas of tethering of the lung attached to the pleura most pronounced anteriorly and superiorly correlate for superimposed infection. Patient had a left-sided chest tube placed in the ER and was transferred to ICU where she was later intubated. Labs done this morning showed WBC 12.6, hemoglobin 8.1, platelet count 380, sodium 141, potassium 3.5, BUN 12, c reatinine 0.60. 2D echo done showed LVEF of 65 to 70%, no obvious regional wall motion abnormalities. Blood cultures growing MRSA Patient admitted to ICU under internal medicine service 11/24. Patient seen and examined. Continues to be intubated, has bilateral chest tubes. Patient had lytics instilled in the right chest tube with 650 mL output REVIEW OF SYSTEMS: Cannot be obtained as patient currently intubated and sedated PHYSICAL EXAMINATION: GENERAL: The patient is intubated and sedated, not in any acute distress. Well developed, well nourished. HEENT: Pupils are round and equally reacting to light. EOMI. No scleral icterus. No conjunctival pallor. Normocephalic, atraumatic. No pharyngeal erythema. No thyromegaly. CARDIOVASCULAR: S1 and S2 present. No murmurs, rubs, or gallops. PULMONARY: Tachypneic, diminished breath sound the bases bilaterally, bilateral chest tube seen ABDOMEN: Soft, nontender, nondistended, normoactive bowel sounds. No palpable organomegaly. MUSCULOSKELETAL: No joint swelling or deformity. EXTREMITIES: No cyanosis, clubbing, or pedal edema. NEUROLOGICAL: Currently intubated and sedated SKIN: No rashes. Assessment and plan Acute hypoxic respiratory failure Acute bilateral pneumonia complicated by bilateral pneumothoraces. Acute bilateral empyema, post bilateral chest tube insertion with purulent material draining from both lungs. MRSA bacteremia Acute septic shock, Acute leukocytosis secondary to above Morbid obesity Polysubstance abuse Hyponatremia Elevated LFTs Lactic acidosis Monitor vital signs Monitor CBC Monitor CMP Continue telemetry monitoring Continue vent management per ICU Aggressive bronchopulmonary hygiene Blood cultures growing MRSA, repeat blood cultures till clearence Sputum cultures ordered Continue IV cefepime, vancomycin Continue Levophed Continue chest tube management per CT surgery, lytics instilled into the right chest tube, no plan for surgical intervention Critical care following ID following Labs and medication were reviewed.. Continue same treatment. Continue with symptomatic treatment. Resume home medication. Monitor labs and vitals. DVT and GI prophylaxis. Further recommendations as per clinical course of the patient Dictation was produced using [employer] dictation software. please excuse any grammatical, word or spelling errors. Objective - Vital Signs Vital signs: Vital Signs Temp 97.9 F 11/25/23 08:00 Pulse 103 H 11/25/23 11:44 Resp 30 H 11/25/23 11:30 BP 128/70 11/25/23 00:22 Pulse Ox 95 11/25/23 11:30 FiO2 50 11/25/23 11:41 Intake & Output 11/24/23 11/25/23 11/25/23 18:59 06:59 18:59 Intake Total 2759.919 3624.274 1930.265 Output Total 1530 2287 395 Balance 2622.265 5557.274 1535.265 Weight 103.6 kg 105.8 kg Intake: IV 1703 2653 872 .9 kvo 143 93 52 ACETAMINOPHEN IV (For NPO 400 ) 1,000 mg In Empty Bag 1 bag @ 400 mls/hr IVPB Q6HR PRN Rx#:[id number] Cefepime 2 gm In Sodium 100 Chloride 0.9% 100 ml @ 200 mls/hr IVPB ONCE STA Rx#:[id number] Lactated Ringers 1,000 ml 1560 1560 520 @ 130 mls/hr IV .Q7H42M REPLACED BY [facility] Rx#:[id number] Potassium Chloride 20 meq 300 In Water For Injection 1 100ml.bag @ 50 mls/hr IVPB Q2H [facility] Rx#: [id number] Vancomycin 1,750 mg In 500 Sodium Chloride 0.9% 500 ml 500 ml @ 167 mls/hr IVPB Q12H REPLACED BY [facility] Rx#: [id number] Intake, IV Titration 1056.919 141.734 1663.265 Amount Cefepime 2 gm In Sodium 50 100 Chloride 0.9% 100 ml @ 25 mls/hr IVPB Q8H REPLACED BY [facility] Rx#: [id number] Midazolam HCl 50 mg In 1.633 20.233 31.40 Sodium Chloride 0.9% 40 ml @ 1 MG/HR 1 mls/hr IV .Q24H REPLACED BY [facility] Rx#:[id number] Norepinephrine 32 mg In 26.88 50.000 9.746 Sodium Chloride 0.9% 218 ml @ 0.03 MCG/KG/MIN 1. 403 mls/hr IV .Q24H REPLACED BY [facility] Rx#:[id number] Vancomycin 1,750 mg In 500 500 Sodium Chloride 0.9% 500 ml 500 ml @ 167 mls/hr IVPB Q12H REPLACED BY [facility] Rx#: [id number] Vasopressin 20 unit In 40.112 Sodium Chloride 0.9% 50 ml @ 0.03 UNITS/MIN 4.59 mls/hr IV .Q11H7M REPLACED BY [facility] Rx# :[id number] fentaNYL (PF). 1,000 mcg 96.341 162.165 121.498 In Sodium Chloride 0.9% 80 ml @ 0.5 MCG/KG/HR 4. 99 mls/hr IV .Q20H3M REPLACED BY [facility] Rx#:[id number] propofoL 1,000 mg In 341.953 478.876 275.621 Empty Bag 1 bag @ 15 MCG/ KG/MIN 8.981 mls/hr IV . Q11H9M [facility] Rx#:[id number] Tube Feeding 170 20 Other 90 Output: Chest Tube Drainage 130 772 40 Chest Tube 100 162 0 Chest Tube Right 30 610 40 Urine 1400 1515 355 Other: Voiding Method Indwelling Catheter Indwelling Catheter Indwelling Catheter ABP, PAP, CO, CI - Last Documented Arterial Blood Pressure 110/54 - Labs CBC & Chem 7: 11/25/23 04:05 11/25/23 04:05 Labs: Abnormal Lab Results - Last 24 Hours (Table) 11/24/23 11/25/23 11/25/23 Range/Units 18:02 00:02 04:05 WBC 12.6 H (3.8-10.6) k/uL RBC 2.74 L (3.80-5.40) m/uL Hgb 8.1 L D (11.4-16.0) gm/dL Hct 25.6 L (34.0-46.0) % Neutrophils # 11.6 H (1.3-7.7) k/uL Lymphocytes # 0.8 L (1.0-4.8) k/uL ABG pH (7.35-7.45) ABG HCO3 (21-25) mmol/L ABG Total CO2 (19-24) mmol/L ABG O2 Saturation (94-97) % Glucose (74-99) mg/dL POC Glucose (mg/dL) 143 H 145 H (70-110) mg/dL Calcium (8.4-10.2) mg/dL 11/25/23 11/25/23 11/25/23 Range/Units 04:05 05:52 06:06 WBC (3.8-10.6) k/uL RBC (3.80-5.40) m/uL Hgb (11.4-16.0) gm/dL Hct (34.0-46.0) % Neutrophils # (1.3-7.7) k/uL Lymphocytes # (1.0-4.8) k/uL ABG pH 7.48 H (7.35-7.45) ABG HCO3 31 H (21-25) mmol/L ABG Total CO2 32 H (19-24) mmol/L ABG O2 Saturation 98.0 H (94-97) % Glucose 135 H (74-99) mg/dL POC Glucose (mg/dL) 143 H (70-110) mg/dL Calcium 7.6 L (8.4-10.2) mg/dL 11/25/23 Range/Units 11:23 WBC (3.8-10.6) k/uL RBC (3.80-5.40) m/uL Hgb (11.4-16.0) gm/dL Hct (34.0-46.0) % Neutrophils # (1.3-7.7) k/uL Lymphocytes # (1.0-4.8) k/uL ABG pH (7.35-7.45) ABG HCO3 (21-25) mmol/L ABG Total CO2 (19-24) mmol/L ABG O2 Saturation (94-97) % Glucose (74-99) mg/dL POC Glucose (mg/dL) 129 H (70-110) mg/dL Calcium (8.4-10.2) mg/dL Microbiology - Last 24 Hours (Table) 11/24/23 00:57 Gram Stain - Preliminary Sputum Sputum Culture - Preliminary Presumptive Staph aureus 11/24/23 08:02 Gram Stain - Preliminary Thoracic Fluid Body Fluid Culture - Preliminary Presumptive MRSA 11/23/23 22:15 Blood Culture Gram Stain - Preliminary Blood Blood Culture - Preliminary Molecular ID 11/23/23 22:00 Blood Culture Gram Stain - Preliminary Blood 11/23/23 20:46 Gram Stain - Preliminary Chest Wound Culture - Preliminary Presumptive MRSA
[2023-11-25 12:53] LABS: HIV 2 AB Non-Reactive (Non-Reactive); HIV AB P24 Non-Reactive (Non-Reactive); HIV P24 AG Non-Reactive (Non-Reactive)
--- NOTE | 2023-11-25 12:57 | P.PN ---
Subjective Progress Note Date: 11/25/23 Principal diagnosis: Reason for follow-up is sepsis MRSA pneumonia bacteremia and empyema Patient is a 43-year-old female past medical history significant for hypertension fibromyalgia asthma reflux seizure disorder currently incarcerated and presented from the local halfway for evaluation of increasing shortness of breath and chest pain, patient did have evidence of bilateral hydropneumothorax requiring bilateral chest tube placement and did have a positive blood culture with MRSA. On today's visit that is 11/25/2023 patient did have resolution of her fever is afebrile today patient remains to be intubated on the vent FiO2 currently 50% patient is requiring less of pressor support than yesterday currently on Levophed no diarrhea any other changes reported by the nursing staff. Patient blood sputum and pleural fluid culture growing MRSA Objective - Vital Signs Vital signs: Vital Signs Temp 97.9 F 11/25/23 08:00 Pulse 103 H 11/25/23 11:44 Resp 30 H 11/25/23 11:30 BP 128/70 11/25/23 00:22 Pulse Ox 95 11/25/23 11:30 FiO2 50 11/25/23 11:41 Intake & Output 11/24/23 11/25/23 11/25/23 18:59 06:59 18:59 Intake Total 2759.919 3624.274 1930.265 Output Total 1530 2287 395 Balance 8951.410 1774.274 1535.265 Weight 103.6 kg 105.8 kg Intake: IV 1703 2653 872 .9 kvo 143 93 52 ACETAMINOPHEN IV (For NPO 400 ) 1,000 mg In Empty Bag 1 bag @ 400 mls/hr IVPB Q6HR PRN Rx#:[id number] Cefepime 2 gm In Sodium 100 Chloride 0.9% 100 ml @ 200 mls/hr IVPB ONCE STA Rx#:[id number] Lactated Ringers 1,000 ml 1560 1560 520 @ 130 mls/hr IV .Q7H42M [facility] Rx#:[id number] Potassium Chloride 20 meq 300 In Water For Injection 1 100ml.bag @ 50 mls/hr IVPB Q2H [facility] Rx#: [id number] Vancomycin 1,750 mg In 500 Sodium Chloride 0.9% 500 ml 500 ml @ 167 mls/hr IVPB Q12H [facility] Rx#: [id number] Intake, IV Titration 1056.919 429.877 2031.265 Amount Cefepime 2 gm In Sodium 50 100 Chloride 0.9% 100 ml @ 25 mls/hr IVPB Q8H [facility] Rx#: [id number] Midazolam HCl 50 mg In 1.633 20.233 31.40 Sodium Chloride 0.9% 40 ml @ 1 MG/HR 1 mls/hr IV .Q24H [facility] Rx#:[id number] Norepinephrine 32 mg In 26.88 50.000 9.746 Sodium Chloride 0.9% 218 ml @ 0.03 MCG/KG/MIN 1. 403 mls/hr IV .Q24H [facility] Rx#:[id number] Vancomycin 1,750 mg In 500 500 Sodium Chloride 0.9% 500 ml 500 ml @ 167 mls/hr IVPB Q12H [facility] Rx#: [id number] Vasopressin 20 unit In 40.112 Sodium Chloride 0.9% 50 ml @ 0.03 UNITS/MIN 4.59 mls/hr IV .Q11H7M [facility] Rx# :[id number] fentaNYL (PF). 1,000 mcg 96.341 162.165 121.498 In Sodium Chloride 0.9% 80 ml @ 0.5 MCG/KG/HR 4. 99 mls/hr IV .Q20H3M [facility] Rx#:[id number] propofoL 1,000 mg In 341.953 478.876 275.621 Empty Bag 1 bag @ 15 MCG/ KG/MIN 8.981 mls/hr IV . Q11H9M [facility] Rx#:[id number] Tube Feeding 170 20 Other 90 Output: Chest Tube Drainage 130 772 40 Chest Tube 100 162 0 Chest Tube Right 30 610 40 Urine 1400 1515 355 Other: Voiding Method Indwelling Catheter Indwelling Catheter Indwelling Catheter ABP, PAP, CO, CI - Last Documented Arterial Blood Pressure 110/54 - Exam GENERAL DESCRIPTION: Middle-aged female intubated on the vent RESPIRATORY SYSTEM: Unlabored breathing , coarse breath sounds bilaterally HEART: S1 S2 regular rate and rhythm , ABDOMEN: Soft , no tenderness EXTREMITIES: No edema feet - Labs CBC & Chem 7: 11/25/23 04:05 11/25/23 04:05 Labs: Abnormal Lab Results - Last 24 Hours (Table) 11/24/23 11/25/23 11/25/23 Range/Units 18:02 00:02 04:05 WBC 12.6 H (3.8-10.6) k/uL RBC 2.74 L (3.80-5.40) m/uL Hgb 8.1 L D (11.4-16.0) gm/dL Hct 25.6 L (34.0-46.0) % Neutrophils # 11.6 H (1.3-7.7) k/uL Lymphocytes # 0.8 L (1.0-4.8) k/uL ABG pH (7.35-7.45) ABG HCO3 (21-25) mmol/L ABG Total CO2 (19-24) mmol/L ABG O2 Saturation (94-97) % Glucose (74-99) mg/dL POC Glucose (mg/dL) 143 H 145 H (70-110) mg/dL Calcium (8.4-10.2) mg/dL 11/25/23 11/25/23 11/25/23 Range/Units 04:05 05:52 06:06 WBC (3.8-10.6) k/uL RBC (3.80-5.40) m/uL Hgb (11.4-16.0) gm/dL Hct (34.0-46.0) % Neutrophils # (1.3-7.7) k/uL Lymphocytes # (1.0-4.8) k/uL ABG pH 7.48 H (7.35-7.45) ABG HCO3 31 H (21-25) mmol/L ABG Total CO2 32 H (19-24) mmol/L ABG O2 Saturation 98.0 H (94-97) % Glucose 135 H (74-99) mg/dL POC Glucose (mg/dL) 143 H (70-110) mg/dL Calcium 7.6 L (8.4-10.2) mg/dL 11/25/23 Range/Units 11:23 WBC (3.8-10.6) k/uL RBC (3.80-5.40) m/uL Hgb (11.4-16.0) gm/dL Hct (34.0-46.0) % Neutrophils # (1.3-7.7) k/uL Lymphocytes # (1.0-4.8) k/uL ABG pH (7.35-7.45) ABG HCO3 (21-25) mmol/L ABG Total CO2 (19-24) mmol/L ABG O2 Saturation (94-97) % Glucose (74-99) mg/dL POC Glucose (mg/dL) 129 H (70-110) mg/dL Calcium (8.4-10.2) mg/dL Microbiology - Last 24 Hours (Table) 11/24/23 00:57 Gram Stain - Preliminary Sputum Sputum Culture - Preliminary Presumptive Staph aureus 11/24/23 08:02 Gram Stain - Preliminary Thoracic Fluid Body Fluid Culture - Preliminary Presumptive MRSA 11/23/23 22:15 Blood Culture Gram Stain - Preliminary Blood Blood Culture - Preliminary Molecular ID 11/23/23 22:00 Blood Culture Gram Stain - Preliminary Blood 11/23/23 20:46 Gram Stain - Preliminary Chest Wound Culture - Preliminary Presumptive MRSA Assessment and Plan (1) Empyema Current Visit: Yes Status: Acute Code(s): J86.9 - PYOTHORAX WITHOUT FISTULA SNOMED Code(s): 747828044 (2) MRSA bacteremia Current Visit: Yes Status: Acute Code(s): R78.81 - BACTEREMIA; B95.62 - METHICILLIN RESIS STAPH [facility]CT [facility] Code(s): 09606926095455420 (3) Pneumonia Current Visit: Yes Status: Acute Code(s): J18.9 - PNEUMONIA, UNSPECIFIED ORGANISM SNOMED Code(s): 586657863 (4) Pneumothorax Current Visit: Yes Status: Acute Code(s): J93.9 - PNEUMOTHORAX, UNSPECIFIED SNOMED Code(s): 08087716 Plan: 1patient presented to hospital with sepsis in this patient who did have a fever tachycardia elevated white count source is pulmonary in this patient noted evidence of bilateral pneumothorax and effusion with question of complicated pneumonia/empyema keeping in mind the patient is from local correction will need to cover for resistant gram-positive such as MRSA and gram-negative pathogen 2-patient blood sputum and pleural fluid culture with MRSA 3-blood cultures will be repeated document clearance of bacteremia 4-patient will be continued vancomycin pharmacy to dose however discontinue cefepime Dictation was produced using [employer] dictation software. please excuse any grammatical, word or spelling errors. Time with Patient: Less than 30
[2023-11-25 15:34] LABS: HCT 24.8 % (34.0-46.0); MCH 29.7 pg (25.0-35.0); MCV 92.7 fL (80.0-100.0); Mean Platelet Volume 8.7; Platelet Count 373 k/uL (150-450); RBC 2.68 m/uL (3.80-5.40); RDW 13.4 % (11.5-15.5); WBC 14.6 k/uL (3.8-10.6)
[2023-11-25 17:35] LABS: Glucose,Whole Blood 101 mg/dL (70-110)
[2023-11-25 20:43] LABS: Magnesium 1.9 mg/dL (1.6-2.3)
[2023-11-25 23:36] LABS: Glucose,Whole Blood 109 mg/dL (70-110)
[2023-11-26 05:00] LABS: HCT 29.5 % (34.0-46.0); HGB 9.3 gm/dL (11.4-16.0); MCH 29.4 pg (25.0-35.0); MCHC 31.5 g/dL (31.0-37.0); MCV 93.4 fL (80.0-100.0); Mean Platelet Volume 8.1; Platelet Count 397 k/uL (150-450); RBC 3.16 m/uL (3.80-5.40); RDW 13.3 % (11.5-15.5); WBC 25.2 k/uL (3.8-10.6)
[2023-11-26 05:11] LABS: African American GFR (CKD) >90 (>60 ml/min/1.73 sqM); Anion Gap 2 mmol/L; Blood Urea Nitrogen 11 mg/dL (7-17); Calcium 7.4 mg/dL (8.4-10.2); Carbon Dioxide 33 mmol/L (22-30); Chloride 103 mmol/L (98-107); Glucose 112 mg/dL (74-99); Non-African American GFR(CKD) >90 (>60 ml/min/1.73 sqM); Sodium 138 mmol/L (137-145)
[2023-11-26 05:54] LABS: Glucose,Whole Blood 127 mg/dL (70-110)
[2023-11-26 05:54] LABS: ABG Base Excess 10.3 mmol/L; ABG HCO3 34 mmol/L (21-25); ABG PCO2 47 mmHg (35-45); ABG PH 7.47 (7.35-7.45); ABG PO2 93 mmHg (83-108); ABG TCO2 35 mmol/L (19-24); Allen Test Performed? Yes
--- NOTE | 2023-11-26 08:12 | P.PN ---
Subjective Progress Note Date: 11/26/23 Principal diagnosis: Acute hypoxic respiratory failure requiring mechanical ventilation, bilateral hydropneumothoraces, empyema, status post bilateral chest tube insertion, septic shock. History of MS, obesity, migraines, seizures, fibromyalgia, hypertension, asthma, anxiety/depression/bipolar disorder, polysubstance abuse The patient was seen and examined this morning laying in bed in the intensive care unit, remains sedated and mechanically ventilated. Lytics were instilled into the right chest tube with 1340 mL drainage in the last 24 hours, no lytics instilled in the left chest tube as there is continuous air leak but she did drain 550 mL in the last 24 hours. Patient does have MRSA in her blood, thoracic fluid, sputum, and nasal swab. Currently on IV Vanco, cefepime stopped yesterday, WBC trending back up to 25.2. No evidence of vegetation on her cardiac valves on echocardiogram. Remains sedated with propofol, fentanyl, Versed. IV levo titrated up overnight. Nursing reports patient does withdraw to painful stimuli but does not follow any commands, has not had a sedation holiday yet. FiO2 has been uptitrated, currently at 75%. Objective - Vital Signs Vital signs: Vital Signs Temp 98.6 F 11/26/23 04:00 Pulse 110 H 11/26/23 07:00 Resp 30 H 11/26/23 07:00 BP 120/65 11/26/23 07:00 Pulse Ox 95 11/26/23 07:00 FiO2 75 11/26/23 04:00 Intake & Output 11/25/23 11/26/23 11/26/23 18:59 06:59 18:59 Intake Total 3374.042 1368.892 130 Output Total 1860 1835 40 Balance 1514.042 -466.108 90 Weight 105.8 kg 104.7 kg Intake: IV 2016 754 130 .9 kvo 156 104 Lactated Ringers 1,000 ml 1560 650 130 @ 130 mls/hr IV .Q7H42M [facility] Rx#:[id number] Potassium Chloride 20 meq 300 In Water For Injection 1 100ml.bag @ 50 mls/hr IVPB Q2H [facility] Rx#: [id number] Intake, IV Titration 1338.042 614.892 Amount Cefepime 2 gm In Sodium 100 Chloride 0.9% 100 ml @ 25 mls/hr IVPB Q8H [facility] Rx#: [id number] Midazolam HCl 50 mg In 48.80 27.65 Sodium Chloride 0.9% 40 ml @ 1 MG/HR 1 mls/hr IV .Q24H [facility] Rx#:[id number] Norepinephrine 32 mg In 32.558 48.909 Sodium Chloride 0.9% 218 ml @ 0.03 MCG/KG/MIN 1. 403 mls/hr IV .Q24H [facility] Rx#:[id number] Vancomycin 1,750 mg In 500 Sodium Chloride 0.9% 500 ml 500 ml @ 167 mls/hr IVPB Q12H [facility] Rx#: [id number] fentaNYL (PF). 1,000 mcg 182.871 178.879 In Sodium Chloride 0.9% 80 ml @ 0.5 MCG/KG/HR 4. 99 mls/hr IV .Q20H3M [facility] Rx#:[id number] propofoL 1,000 mg In 473.813 359.454 Empty Bag 1 bag @ 15 MCG/ KG/MIN 8.981 mls/hr IV . Q11H9M [facility] Rx#:[id number] Tube Feeding 20 Output: Chest Tube Drainage 1020 870 Chest Tube 310 240 Chest Tube Right 710 630 Urine 840 965 40 Other: Voiding Method Indwelling Catheter Indwelling Catheter ABP, PAP, CO, CI - Last Documented Arterial Blood Pressure 92/51 - Exam CONSTITUTIONAL: Currently sedated on mechanical ventilation, laying in bed in the intensive care unit RESPIRATORY: Lungs sounds diminished bilaterally. Respirations even, nonlabor ed on mechanical ventilation, current settings assist-control mode, FiO2 75%, tidal volume 400, PEEP 5, respiratory rate 30. CARDIOVASCULAR: S1, S2 present. Regular rate and rhythm, sinus rhythm to sinus tach on telemetry. Palpable peripheral pulses bilaterally. Generalized trace edema present. No calf pain or tenderness noted. SCDs present. GASTROINTESTINAL: Abdomen soft, nontender, nondistended. Active bowel sounds present 4 quadrants. OG tube present, tube feeding infusing at 16 mL/h GENITOURINARY: Beth present draining clear, yellow urine. Output 50-150 mL/h overnight, 1805 mL in the last 24 hours INTEGUMENTARY: Skin is warm and dry NEUROLOGIC: Sedated on mechanical ventilation INVASIVE LINES AND TUBES: Left/right pleural chest tubes present and connected to wall suction, continuous air leak present in the left and right pleural chest tubes. Left pleural chest tube with 240 mL purulent drainage overnight, 550 mL in the last 24 hours. Right pleural chest tube with 460 mL serosanguineous drainage overnight, 1340 mL last 24 hours. - Allied health notes Allied health notes reviewed: nursing - Labs CBC & Chem 7: 11/26/23 04:48 11/26/23 04:48 Labs: Abnormal Lab Results - Last 24 Hours (Table) 11/25/23 11/25/23 11/26/23 Range/Units 11:23 15:22 04:48 WBC 14.6 H 25.2 H (3.8-10.6) k/uL RBC 2.68 L 3.16 L (3.80-5.40) m/uL Hgb 8.0 L 9.3 L (11.4-16.0) gm/dL Hct 24.8 L 29.5 L (34.0-46.0) % ABG pH (7.35-7.45) ABG pCO2 (35-45) mmHg ABG HCO3 (21-25) mmol/L ABG Total CO2 (19-24) mmol/L ABG O2 Saturation (94-97) % Carbon Dioxide (22-30) mmol/L Creatinine (0.52-1.04) mg/dL Glucose (74-99) mg/dL POC Glucose (mg/dL) 129 H (70-110) mg/dL Calcium (8.4-10.2) mg/dL 11/26/23 11/26/23 11/26/23 Range/Units 04:48 05:48 05:53 WBC (3.8-10.6) k/uL RBC (3.80-5.40) m/uL Hgb (11.4-16.0) gm/dL Hct (34.0-46.0) % ABG pH 7.47 H (7.35-7.45) ABG pCO2 47 H (35-45) mmHg ABG HCO3 34 H (21-25) mmol/L ABG Total CO2 35 H (19-24) mmol/L ABG O2 Saturation 98.0 H (94-97) % Carbon Dioxide 33 H (22-30) mmol/L Creatinine 0.51 L (0.52-1.04) mg/dL Glucose 112 H (74-99) mg/dL POC Glucose (mg/dL) 127 H (70-110) mg/dL Calcium 7.4 L (8.4-10.2) mg/dL Microbiology - Last 24 Hours (Table) 11/23/23 22:00 Blood Culture Gram Stain - Preliminary Blood Blood Culture - Preliminary Presumptive MRSA 11/23/23 22:15 Blood Culture Gram Stain - Preliminary Blood Blood Culture - Preliminary Presumptive MRSA Molecular ID 11/23/23 20:46 Gram Stain - Final Chest Wound Culture - Final Methicillin resist S. aureus 11/24/23 08:06 Nasal Screen MRSA/MSSA - Final Nasal Swab Methicillin resist S. aureus 11/24/23 00:57 Gram Stain - Preliminary Sputum Sputum Culture - Preliminary Presumptive Staph aureus 11/24/23 08:02 Gram Stain - Preliminary Thoracic Fluid Body Fluid Culture - Preliminary Presumptive MRSA - Imaging and Cardiology Chest x-ray: image reviewed Assessment and Plan Assessment: Acute hypoxic respiratory failure requiring mechanical ventilation Bilateral hydropneumothoraces, empyema, status post bilateral chest tube insertion Septic shock, requiring IV vasopressors Chest pain, shortness of breath present on admission secondary to above History of MS Obesity Migraines Seizures Fibromyalgia Hypertension, currently hypotensive on pressors Asthma Anxiety/depression/bipolar disorder Polysubstance abuse Plan: No surgical intervention planned especially given increased oxygen demand and pressor use, conservative management No lytics today due to air leak in both chest tubes Ventilator management per digital controls technical officer Wean pressors as able Antibiotics per infectious disease Medical management of other comorbidities per internal medicine, pulmonology, ID Goals of care to be discussed as patient does not appear to be improving, poor prognosis More recommendations to follow
--- NOTE | 2023-11-26 08:12 | XR ---
EXAMINATION TYPE: XR chest 1V portable DATE OF EXAM: 11/26/2023 4:53 AM CLINICAL INDICATION:Female, 43 years old with history of Tube placement; [facility] COMPARISON: Chest radiograph from one day prior. TECHNIQUE: XR chest 1V portable Frontal view of the chest. FINDINGS: Lungs/Pleura: Bilateral pneumothorax which has decreased in size on the right and is stable in size o n the left. Similar airspace opacities in the left midlung and right lung base. There is no evidence of pleural effusion, or focal consolidation. Pulmonary vascularity: Unremarkable. Heart/mediastinum: Cardiomediastinal silhouette is unremarkable. Musculoskeletal: No acute osseous pathology. Other findings: None Lines/Tubes: Endotracheal tube with distal tip 2.6 cm above the alicia. Nasogastric tube with its distal tip and side-port projecting under the diaphragm. Left central venous catheter with distal tip at the cavoatrial junction. Bilateral thoracotomy tubes are present. There is a decreased right pneumothorax and stable left pneu mothorax. IMPRESSION: 1. Bilateral thoracotomy tubes with persistent small bilateral pneumothoraces. 2. Endotracheal tube and nasogastric tube in appropriate position.
[2023-11-26] MEDS: VANCOMYCIN TROUGH DUE 1 EACH MISC MISCELLANE ONE (09:34)
[2023-11-26] MEDS: ACETAMINOPHEN TAB 325 MG TAB PO PRN (11:38)
[2023-11-26] MEDS ORDERED: DEXTROSE 50% SYRINGE 50 ML IVP PRN ×2 (11:46)
[2023-11-26 11:52] LABS: Glucose,Whole Blood 113 mg/dL (70-110)
[2023-11-26] MEDS: INSULIN ASPART (NovoLOG) 100 UNIT/ML VIAL SQ SCH (12:06)
--- NOTE | 2023-11-26 12:34 | P.PN ---
Subjective Progress Note Date: 11/26/23 Principal diagnosis: Acute hypoxic respiratory failure secondary to bilateral pn eumonia/empyema/hydropneumothorax This is a 43-year-old female patient who is currently incarcerated who presented from a local half-way with shortness of breath and chest pain. Apparently, the patient has been having the symptoms for the past 3 weeks. She stated that she was having right-sided lateral chest pain along with difficulty breathing. In the emergency, the patient was extremely short of breath, tachycardic and hypoxic. She was also having cough. She was running a fever of 101.4. She was tachycardic with a heart rate of 155. Blood pressure was still stable at that point. She was placed on 100% nonrebreather facemask. A quick chest x-ray was done and the chest x-ray was abnormal with evidence of bilateral pneumothoraces moderate size right and large left-sided pneumothorax. There was also small right-sided pleural effusion and moderate-sized left-sided pleural effusion. There was near complete collapse of the left lung with scattered areas of scattered lung along the pleura. There was also consolidation involving the right lower lobe and the right middle lobe. Based on those findings, the patient was given a CTA of the chest that showed no evidence of pneumothorax. Similar findings were noted with the patient was found to have bilateral pneumothoraces. Pleural effusions were again noted large on the left and moderate-sized on the right. No evidence of any filling defects. At that point, a left-sided chest tube was inserted and copious amount of purulent material was drained from the left lung a total of 800 cc of pus and has already drained from the left lung. The patient was moved to the intensive care unit. She was quite short of breath. She was initially on Airvo system with an FiO2 of 90% with a 60 L flow. She became more short of breath and hemodynamically unstable and hypotensive. At that point, the decision was to intubate the patient and placed on mechanical ventilation. Postintubation, the patient developed peak pressuring. There was worsening in the air leak in the left lung chest tube. At the same time, the patient became unstable and became progressively more hypotensive. Pressors were initiated and the patient is c urrently on norepinephrine running at 0.3 mcg/kg/min. Repeat chest x-ray was done and it showed worsening of the right-sided pneumothorax. I attended on this patient and immediately inserted triple-lumen catheter for vascular access and hemodynamic support. Resuscitation was continued. At the same time, I inserted a right-sided chest tube and another 400 cc of purulent material was aspirated from the right lung. Subsequent chest x-ray showed reexpansion of the right lung without any evidence of residual pneumothorax. Left lung is extensively consolidated and there is a loculated pneumothorax in the left posterior lateral aspect. At this point in time, the patient is intubated on mechanical ventilator. She is on an assist-control mode at rate of 30, tidal volume of 400, FiO2 is at 100% with a PEEP of 5. She is on norepinephrine. This is being weaned off. She is sedated with propofol which is running at 70 mcg/kg/min. She is also on normal saline at rate of 130 cc an hour. The patient is adequately sedated. She was given also a dose of Nimbex during those procedures. The white cell count is at 23.8 with a hemoglobin of 10.3 and a platelet count of 419. The most recent blood gas showed a pH of 7.32 and a pCO2 of 50 and pO2 of 65 and this was done prior to the insertion of the right-sided chest tube. The sodium is at 129 with a potassium level of 3.9 with a bicarb of 23 and a BUN of 44 with a creatinine of 0.9. Lactic acid level initially was at 2.8 and currently down to 1.5. LFTs are mildly elevated with an AST of 69, ALT of 64, troponins are negative and the proBNP level is within normal limits. The viral screen was also negative. Blood cultures were sent. The patient was started on a combination of IV cefepime, vancomycin and Zithromax. Based on her past medical history, this patient has history of multiple sclerosis, she is morbidly obese, she has history of migraine seizure disorder and fibromyalgia and hypertension. She also has history of anxiety and depression. She has history of polysubstance abuse which includes heroin heroin, cocaine, marijuana and marijuana use. She also does prescription pills. Her last hospital admission was back in November 2022 and at that time the patient was treated for exacerbation of her multiple sclerosis. Patient was evaluated this morning, patient is hemodynamically unstable, still requiring norepinephrine at 0.08 mcg/kg/min she is also requiring vasopressin at 0.03 units/h. Patient is receiving LR at 150 cc/h. Chest x-ray continues to show hydropneumothorax, both chest tubes are draining purulent and serosanguineous material the left-sided chest tube is draining pus, and the right-sided chest tube is draining serosanguineous liquid. Right sided drained 400 cc since last night and the left side drained 800 cc since last night. Clearly the patient has empyema she may or may not require decortication or thrombolytic instillation into the pleural space. Patient continues to have air leak in both chest tubes. She is on assist-control rate of 30 tidal volume 400 FiO2 down to 50% PEEP of 5 last ABG showed a pO2 of 147 pCO2 42 pH of 7.33. Thoracic surgery was consulted and infectious disease was also consulted. Patient is receiving presently vancomycin and cefepime, she has allergies to penicillin hence Zosyn was discontinued. Her urine output is reasonable, patient received 3 L of fluid boluses and she is on IV fluid at 130 cc/h. Patient is critically ill. Continues to have leukocytosis with WBC count of 23.7 hemoglobin 9.8. Basic metabolic profile is normal. Urine test is positive for opiates Patient was reevaluated today on 11/25/2023, remains in the ICU intubated and mechanically ventilated. Patient is on assist-control of 3 0 tidal volume 400 FiO2 50% PEEP of 5 ABG showed a pO2 of 102 pCO2 41 pH of 7.48, hence no changes were made in present vent settings. Patient remains on antibiotics in the form of vancomycin and cefepime, we are treating positive blood cultures for MRSA and positive left-sided pleural effusion which is positive for MRSA. Patient is receiving fentanyl at 2 mcg/kg/h propofol at 75 mcg/kg/min Versed at 2 mg/h norepinephrine at 0.05 mcg/kg/min. IV fluid is running at 130 cc/h in the form of lactated Ringer's. Urine output has been excellent over 50 cc an hour. Chest x-ray continues to show evidence of bilateral pneumothoraces, there is a loculated left-sided pneumothorax and there is a apical right-sided pneumothorax. The drainage from the left-sided chest tube is noted to be purulent drainage from the right-sided chest tube is noted to be serosanguineous. Patient did receive lytic treatment to the loculated effusion on the right side, but no lytics applied to the left side. Patient is having air leak in the left-sided chest tube, but no air leak noted in the right-sided chest tube although the patient does have a small apical pneumothorax noted. WBC count today is 12.6 hemoglobin 8.1, basic metabolic profile is normal renal profile is normal. Patient evaluated today on 11/26/2023, remains in the ICU intubated and mechanically ventilated. Remains on assist-control rate of 30 tidal volume 400 FiO2 75% PEEP of 5 apparently the patient desaturated yesterday, and she seems to be developing more air leak from the bilateral pneumothoraces/chest tubes. Today I increased her tidal volume up to 450 increase the rate up to 32 PEEP the same cut down FiO2 down to 60%. ABG showed a pO2 of 93 pCO2 47 pH of 7.47. Patient remains on antibiotics including vancomycin for her MRSA in the sputum and in the blood as well as in the pleural fluid. Patient remains on fentanyl 1.5 mcg/kg/h LR at 130 cc/h Versed 3 mg/h norepinephrine 0.18 mcg/kg/min propofol at 50 mcg/kg/min. Chest x-ray continues to show bilateral pneumothoraces right and left, the left one seems to be loculated and the right one seems to be apical there is at least 50 cc of volume loss with each tidal volume. Hence tidal volume was increased from 400 to 450. Her overall clinical condition remains very critical, patient has very poor prognosis, nonetheless she is on appropriate antibiotics, bronchodilators, and continues to have bilate ral chest tubes. WBC count today is 25.2 hemoglobin 9.3 basic metabolic profile is normal renal profile is normal Objective - Vital Signs Vital signs: Vital Signs Temp 102.3 F H 11/26/23 12:00 Pulse 114 H 11/26/23 12:00 Resp 32 H 11/26/23 12:00 BP 118/62 11/26/23 12:00 Pulse Ox 94 L 11/26/23 12:00 FiO2 60 11/26/23 12:00 Intake & Output 11/25/23 11/26/23 11/26/23 18:59 06:59 18:59 Intake Total 3374.042 3264.343 3771.841 Output Total 1860 1835 445 Balance 1514.042 -466.108 766.841 Weight 105.8 kg 104.7 kg Intake: IV 2016 754 845 .9 kvo 156 104 50 Lactated Ringers 1,000 ml 1560 650 780 @ 130 mls/hr IV .Q7H42M [facility] Rx#:[id number] Potassium Chloride 20 meq 300 In Water For Injection 1 100ml.bag @ 50 mls/hr IVPB Q2H [facility] Rx#: [id number] Pressure bag 15 Intake, IV Titration 1338.042 614.892 136.841 Amount Cefepime 2 gm In Sodium 100 Chloride 0.9% 100 ml @ 25 mls/hr IVPB Q8H [facility] Rx#: [id number] Midazolam HCl 50 mg In 48.80 27.65 Sodium Chloride 0.9% 40 ml @ 1 MG/HR 1 mls/hr IV .Q24H [facility] Rx#:[id number] Norepinephrine 32 mg In 32.558 48.909 39.293 Sodium Chloride 0.9% 218 ml @ 0.03 MCG/KG/MIN 1. 403 mls/hr IV .Q24H [facility] Rx#:[id number] Vancomycin 1,750 mg In 500 Sodium Chloride 0.9% 500 ml 500 ml @ 167 mls/hr IVPB Q12H [facility] Rx#: [id number] fentaNYL (PF). 1,000 mcg 182.871 178.879 97.548 In Sodium Chloride 0.9% 80 ml @ 0.5 MCG/KG/HR 4. 99 mls/hr IV .Q20H3M [facility] Rx#:[id number] propofoL 1,000 mg In 473.813 359.454 Empty Bag 1 bag @ 15 MCG/ KG/MIN 8.981 mls/hr IV . Q11H9M [facility] Rx#:[id number] Tube Feeding 20 80 Other 150 Output: Chest Tube Drainage 1020 870 100 Chest Tube 310 240 20 Chest Tube Right 710 630 80 Urine 840 965 345 Other: Voiding Method Indwelling Catheter Indwelling Catheter Indwelling Catheter ABP, PAP, CO, CI - Last Documented Arterial Blood Pressure 96/49 - Exam General: Revealed 43-year-old female intubated, obese, stated, not in distress Skin: Skin is warm and dry and no rashes or lesions are noted. Eye: Pupils are equal, round and reactive to light, extra-ocular movements are intact; there is normal conjunctiva bilaterally. Ears, nose, mouth and throat: There are moist mucous membranes and no oral lesions. Neck: The neck is supple, there is no tenderness or JVD. Cardiovascular: There is a regular rate and rhythm. No murmur, rub or gallop is appreciated. Respiratory: Scattered rhonchi noted bilaterally. Crackles at the bases. Bilateral chest tubes noted.. Gastrointestinal: Obese, soft, nontender, no megaly no rebound. Back: There is no tenderness to palpation in the midline. There is no obvious deformity. Musculoskeletal: No deformities noted Neurological: Not assessed patient is sedated, on propofol, Versed, and fentanyl. Psychiatric: Could not assess mostly because of sedation. - Labs CBC & Chem 7: 11/26/23 04:48 11/26/23 04:48 Labs: Abnormal Lab Results - Last 24 Hours (Table) 11/25/23 11/26/23 11/26/23 Range/Units 15:22 04:48 04:48 WBC 14.6 H 25.2 H (3.8-10.6) k/uL RBC 2.68 L 3.16 L (3.80-5.40) m/uL Hgb 8.0 L 9.3 L (11.4-16.0) gm/dL Hct 24.8 L 29.5 L (34.0-46.0) % ABG pH (7.35-7.45) ABG pCO2 (35-45) mmHg ABG HCO3 (21-25) mmol/L ABG Total CO2 (19-24) mmol/L ABG O2 Saturation (94-97) % Carbon Dioxide 33 H (22-30) mmol/L Creatinine 0.51 L (0.52-1.04) mg/dL Glucose 112 H (74-99) mg/dL POC Glucose (mg/dL) (70-110) mg/dL Calcium 7.4 L (8.4-10.2) mg/dL 11/26/23 11/26/23 11/26/23 Range/Units 05:48 05:53 11:50 WBC (3.8-10.6) k/uL RBC (3.80-5.40) m/uL Hgb (11.4-16.0) gm/dL Hct (34.0-46.0) % ABG pH 7.47 H (7.35-7.45) ABG pCO2 47 H (35-45) mmHg ABG HCO3 34 H (21-25) mmol/L ABG Total CO2 35 H (19-24) mmol/L ABG O2 Saturation 98.0 H (94-97) % Carbon Dioxide (22-30) mmol/L Creatinine (0.52-1.04) mg/dL Glucose (74-99) mg/dL POC Glucose (mg/dL) 127 H 113 H (70-110) mg/dL Calcium (8.4-10.2) mg/dL Microbiology - Last 24 Hours (Table) 11/24/23 08:02 Gram Stain - Final Thoracic Fluid Body Fluid Culture - Final Methicillin resist S. aureus 11/24/23 00:57 Gram Stain - Final Sputum Sputum Culture - Final Methicillin resist S. aureus 11/23/23 22:00 Blood Culture Gram Stain - Preliminary Blood Blood Culture - Preliminary Presumptive MRSA 11/23/23 22:15 Blood Culture Gram Stain - Preliminary Blood Blood Culture - Preliminary Presumptive MRSA Molecular ID 11/23/23 20:46 Gram Stain - Final Chest Wound Culture - Final Methicillin resist S. aureus 11/24/23 08:06 Nasal Screen MRSA/MSSA - Final Nasal Swab Methicillin resist S. aureus Assessment and Plan Assessment: Impression:Acute hypoxic respiratory failure Acute bilateral pneumonia with empyema Acute bacteremia secondary to MRSA secondary to empyema/pneumonia Acute sepsis and septic shock secondary to above Acute leukocytosis, improving History of polysubstance abuse History of MS History of depression and anxiety History of interstitial cystitis and UTI Fibromyalgia Chronic pain syndrome History of seizure disorder Degenerative joint disease Benign essential hypertension Morbid obesity Recommendation: Continue ventilatory support, minimal changes were made in the ventilator settings to make up for the volume loss/air leak in the chest tubes. Continue bilateral chest tubes to suction and continue to monitor drainage and airleak. Continue vancomycin, off cefepime. Endocarditis was ruled out. Continue pressors and hemodynamic support Continue nutritional support/enteral feeding Continue DVT prophylaxis and continue GI prophylaxis Remains critically ill prognosis is guarded Critical care time is over 30-minute Will continue to follow. Time with Patient: Greater than 30
--- NOTE | 2023-11-26 13:17 | P.PN ---
Subjective Progress Note Date: 11/26/23 patient 43-year-old lady who is currently incarcerated and was brought to the ER for chest pain and shortness of breath. Most of the history is been taken from the electronic medical record according to which patient has been having shortness of breath for the last few weeks. Patient also been complaining of cough and chest pain. Patient also has having fevers at the facility. Because of the symptoms, patient was brought to the ER. Where patient was found to be extremely tachycardic and hypoxic, patient had to be placed on 100% nonrebreather mask. Initial chest x-ray done showed bilateral pneumothoraces with moderate size right large left-sided pneumothorax. Initial lab work done in the ER showed WBC 23.8, hemoglobin 9.3, platelet count 490, INR 1.3, D-dimer 4.66, sodium 129, potassium 3.9, BUN 44, creatinine 0.96, glucose 121, lactate 2.8, AST 16, ALT 64 Influenza A not detected Influenza B not detected RSV not detected COVID-19 not detected CTA chest done in the ER showed bilateral hydropneumothoraces, there is a small to moderate right and large left pneumothorax small right and moderate left pleural effusions. Areas of tethering of the lung attached to the pleura most pronounced anteriorly and superiorly correlate for superimposed infection. Patient had a left-sided chest tube placed in the ER and was transferred to ICU where she was later intubated. Labs done this morning showed WBC 12.6, hemoglobin 8.1, platelet count 380, sodium 141, potassium 3.5, BUN 12, c reatinine 0.60. 2D echo done showed LVEF of 65 to 70%, no obvious regional wall motion abnormalities. Blood cultures growing MRSA Patient admitted to ICU under internal medicine service 11/24. Patient seen and examined. Continues to be intubated, has bilateral chest tubes. Patient had lytics instilled in the right chest tube with 650 mL output 11/25. Patient seen and examined in the ICU. Continues to be intubated. Total output from right chest tube is close to 134 0 mL after instilling the lytics. Continues to be on propofol, fentanyl, Versed. Patient also on IV Levophed. REVIEW OF SYSTEMS: Cannot be obtained as patient currently intubated and sedated PHYSICAL EXAMINATION: GENERAL: The patient is intubated and sedated, not in any acute distress. Well developed, well nourished. HEENT: Pupils are round and equally reacting to light. EOMI. No scleral icterus. No conjunctival pallor. Normocephalic, atraumatic. No pharyngeal erythema. No thyromegaly. CARDIOVASCULAR: S1 and S2 present. No murmurs, rubs, or gallops. PULMONARY: Tachypneic, diminished breath sound the bases bilaterally, bilateral chest tube seen ABDOMEN: Soft, nontender, nondistended, normoactive bowel sounds. No palpable organomegaly. MUSCULOSKELETAL: No joint swelling or deformity. EXTREMITIES: No cyanosis, clubbing, or pedal edema. NEUROLOGICAL: Currently intubated and sedated SKIN: No rashes. Assessment and plan Acute hypoxic respiratory failure Acute bilateral pneumonia complicated by bilateral pneumothoraces. Acute bilateral empyema, post bilateral chest tube insertion with purulent material draining from both lungs. MRSA bacteremia Acute septic shock, Acute leukocytosis secondary to above Morbid obesity Polysubstance abuse Hyponatremia Elevated LFTs Lactic acidosis Monitor vital signs Monitor CBC Monitor CMP Continue telemetry monitoring Continue vent management per ICU Aggressive bronchopulmonary hygiene Blood cultures growing MRSA, repeat blood cultures till clearence Sputum cultures ordered Continue IV cefepime, vancomycin Continue Levophed Continue chest tube management per CT surgery, lytics instilled into the right chest tube, no plan for surgical intervention Critical care following ID following Patient's very poor prognosis per multiple specialities Labs and medication were reviewed.. Continue same treatment. Continue with symptomatic treatment. Resume home medication. Monitor labs and vitals. DVT and GI prophylaxis. Further recommendations as per clinical course of the patient Dictation was produced using [employer] dictation software. please excuse any grammatical, word or spelling errors. Objective - Vital Signs Vital signs: Vital Signs Temp 102.3 F H 11/26/23 12:00 Pulse 133 H 11/26/23 13:00 Resp 32 H 11/26/23 13:00 BP 112/70 11/26/23 13:00 Pulse Ox 90 L 11/26/23 13:00 FiO2 60 11/26/23 12:00 Intake & Output 11/25/23 11/26/23 11/26/23 18:59 06:59 18:59 Intake Total 3374.042 5038.796 8056.841 Output Total 1860 1835 495 Balance 1514.042 -466.108 975.841 Weight 105.8 kg 104.7 kg Intake: IV 2016 754 988 .9 kvo 156 104 60 Lactated Ringers 1,000 ml 1560 650 910 @ 130 mls/hr IV .Q7H42M [facility] Rx#:[id number] Potassium Chloride 20 meq 300 In Water For Injection 1 100ml.bag @ 50 mls/hr IVPB Q2H [facility] Rx#: [id number] Pressure bag 18 Intake, IV Titration 1338.042 614.892 236.841 Amount Cefepime 2 gm In Sodium 100 Chloride 0.9% 100 ml @ 25 mls/hr IVPB Q8H [facility] Rx#: [id number] Midazolam HCl 50 mg In 48.80 27.65 Sodium Chloride 0.9% 40 ml @ 1 MG/HR 1 mls/hr IV .Q24H [facility] Rx#:[id number] Norepinephrine 32 mg In 32.558 48.909 39.293 Sodium Chloride 0.9% 218 ml @ 0.03 MCG/KG/MIN 1. 403 mls/hr IV .Q24H [facility] Rx#:[id number] Vancomycin 1,750 mg In 500 Sodium Chloride 0.9% 500 ml 500 ml @ 167 mls/hr IVPB Q12H [facility] Rx#: [id number] fentaNYL (PF). 1,000 mcg 182.871 178.879 97.548 In Sodium Chloride 0.9% 80 ml @ 0.5 MCG/KG/HR 4. 99 mls/hr IV .Q20H3M [facility] Rx#:[id number] propofoL 1,000 mg In 473.813 359.454 100 Empty Bag 1 bag @ 15 MCG/ KG/MIN 8.981 mls/hr IV . Q11H9M [facility] Rx#:[id number] Tube Feeding 20 96 Other 150 Output: Chest Tube Drainage 1020 870 100 Chest Tube 310 240 20 Chest Tube Right 710 630 80 Urine 840 965 395 Other: Voiding Method Indwelling Catheter Indwelling Catheter Indwelling Catheter ABP, PAP, CO, CI - Last Documented Arterial Blood Pressure 96/49 - Labs CBC & Chem 7: 11/26/23 04:48 11/26/23 04:48 Labs: Abnormal Lab Results - Last 24 Hours (Table) 04/11/26/23 11/26/23 Range/Units 15:22 04:48 04:48 WBC 14.6 H 25.2 H (3.8-10.6) k/uL RBC 2.68 L 3.16 L (3.80-5.40) m/uL Hgb 8.0 L 9.3 L (11.4-16.0) gm/dL Hct 24.8 L 29.5 L (34.0-46.0) % ABG pH (7.35-7.45) ABG pCO2 (35-45) mmHg ABG HCO3 (21-25) mmol/L ABG Total CO2 (19-24) mmol/L ABG O2 Saturation (94-97) % Carbon Dioxide 33 H (22-30) mmol/L Creatinine 0.51 L (0.52-1.04) mg/dL Glucose 112 H (74-99) mg/dL POC Glucose (mg/dL) (70-110) mg/dL Calcium 7.4 L (8.4-10.2) mg/dL 11/26/23 11/26/23 11/26/23 Range/Units 05:48 05:53 11:50 WBC (3.8-10.6) k/uL RBC (3.80-5.40) m/uL Hgb (11.4-16.0) gm/dL Hct (34.0-46.0) % ABG pH 7.47 H (7.35-7.45) ABG pCO2 47 H (35-45) mmHg ABG HCO3 34 H (21-25) mmol/L ABG Total CO2 35 H (19-24) mmol/L ABG O2 Saturation 98.0 H (94-97) % Carbon Dioxide (22-30) mmol/L Creatinine (0.52-1.04) mg/dL Glucose (74-99) mg/dL POC Glucose (mg/dL) 127 H 113 H (70-110) mg/dL Calcium (8.4-10.2) mg/dL Microbiology - Last 24 Hours (Table) 11/24/23 08:02 Gram Stain - Final Thoracic Fluid Body Fluid Culture - Final Methicillin resist S. aureus 11/24/23 00:57 Gram Stain - Final Sputum Sputum Culture - Final Methicillin resist S. aureus 11/23/23 22:00 Blood Culture Gram Stain - Preliminary Blood Blood Culture - Preliminary Presumptive MRSA 11/23/23 22:15 Blood Culture Gram Stain - Preliminary Blood Blood Culture - Preliminary Presumptive MRSA Molecular ID 11/23/23 20:46 Gram Stain - Final Chest Wound Culture - Final Methicillin resist S. aureus 11/24/23 08:06 Nasal Screen MRSA/MSSA - Final Nasal Swab Methicillin resist S. aureus
[2023-11-26] MEDS: VANCOMYCIN 1,750 MG in SODIUM CHLORIDE 0.9% 500 ML 500 ML IVPB SCH (16:37)
--- NOTE | 2023-11-26 17:50 | P.PN ---
Subjective Progress Note Date: 11/26/23 Principal diagnosis: Reason for follow-up is sepsis MRSA pneumonia bacteremia and empyema Patient is a 43-year-old female past medical history significant for hypertension fibromyalgia asthma reflux seizure disorder currently incarcerated and presented from the local senior care for evaluation of increasing shortness of breath and chest pain, patient did have evidence of bilateral hydropneumothorax requiring bilateral chest tube placement and did have a positive blood culture with MRSA. On today's visit that is 11/26/2023, Patient did spike another fever of 102.3 F at noon and this afternoon patient is tachycardic but not hypotensive or requiring more pressors, patient is currently on the vent FiO2 stable 60% no significant purulent secretions through the ET or any other changes reported by the nursing staff. Patient white count is up to 25.2 creatinine 0.51 Vanco trough was low at 7.7 Objective - Vital Signs Vital signs: Vital Signs Temp 102.3 F H 11/26/23 16:00 Pulse 122 H 11/26/23 16:00 Resp 32 H 11/26/23 16:00 BP 131/72 11/26/23 16:00 Pulse Ox 95 11/26/23 16:00 FiO2 60 11/26/23 16:00 Intake & Output 11/25/23 11/26/23 11/26/23 18:59 06:59 18:59 Intake Total 3374.042 9424.398 0439.670 Output Total 1860 1835 1225 Balance 1514.042 -085.487 5396.670 Weight 105.8 kg 104.7 kg Intake: IV 2016 754 1417 .9 kvo 156 104 90 Lactated Ringers 1,000 ml 6023 876 5288 @ 130 mls/hr IV .Q7H42M [facility] Rx#:[id number] Potassium Chloride 20 meq 300 In Water For Injection 1 100ml.bag @ 50 mls/hr IVPB Q2H [facility] Rx#: [id number] Pressure bag 27 Intake, IV Titration 1338.042 614.892 931.670 Amount Cefepime 2 gm In Sodium 100 Chloride 0.9% 100 ml @ 25 mls/hr IVPB Q8H [facility] Rx#: [id number] Midazolam HCl 50 mg In 48.80 27.65 43.5 Sodium Chloride 0.9% 40 ml @ 1 MG/HR 1 mls/hr IV .Q24H [facility] Rx#:[id number] Norepinephrine 32 mg In 32.558 48.909 90.622 Sodium Chloride 0.9% 218 ml @ 0.03 MCG/KG/MIN 1. 403 mls/hr IV .Q24H [facility] Rx#:[id number] Vancomycin 1,750 mg In 500 Sodium Chloride 0.9% 500 ml 500 ml @ 167 mls/hr IVPB Q12H [facility] Rx#: [id number] Vancomycin 1,750 mg In 500 Sodium Chloride 0.9% 500 ml 500 ml @ 167 mls/hr IVPB Q8H [facility] Rx#: [id number] fentaNYL (PF). 1,000 mcg 182.871 178.879 197.548 In Sodium Chloride 0.9% 80 ml @ 0.5 MCG/KG/HR 4. 99 mls/hr IV .Q20H3M [facility] Rx#:[id number] propofoL 1,000 mg In 473.813 359.454 100 Empty Bag 1 bag @ 15 MCG/ KG/MIN 8.981 mls/hr IV . Q11H9M [facility] Rx#:[id number] Tube Feeding 20 144 Other 180 Output: Chest Tube Drainage 1020 870 700 Chest Tube 310 240 110 Chest Tube Right 710 630 590 Urine 840 965 525 Other: Voiding Method Indwelling Catheter Indwelling Catheter Indwelling Catheter ABP, PAP, CO, CI - Last Documented Arterial Blood Pressure 97/52 - Exam GENERAL DESCRIPTION: Middle-aged female intubated on the vent RESPIRATORY SYSTEM: Unlabored breathing , coarse breath sounds bilaterally HEART: S1 S2 regular rate and rhythm , ABDOMEN: Soft , no tenderness EXTREMITIES: No edema feet - Labs CBC & Chem 7: 11/26/23 04:48 11/26/23 04:48 Labs: Abnormal Lab Results - Last 24 Hours (Table) 11/26/23 11/26/23 11/26/23 Range/Units 04:48 04:48 05:48 WBC 25.2 H (3.8-10.6) k/uL RBC 3.16 L (3.80-5.40) m/uL Hgb 9.3 L (11.4-16.0) gm/dL Hct 29.5 L (34.0-46.0) % ABG pH 7.47 H (7.35-7.45) ABG pCO2 47 H (35-45) mmHg ABG HCO3 34 H (21-25) mmol/L ABG Total CO2 35 H (19-24) mmol/L ABG O2 Saturation 98.0 H (94-97) % Carbon Dioxide 33 H (22-30) mmol/L Creatinine 0.51 L (0.52-1.04) mg/dL Glucose 112 H (74-99) mg/dL POC Glucose (mg/dL) (70-110) mg/dL Calcium 7.4 L (8.4-10.2) mg/dL 11/26/23 11/26/23 Range/Units 05:53 11:50 WBC (3.8-10.6) k/uL RBC (3.80-5.40) m/uL Hgb (11.4-16.0) gm/dL Hct (34.0-46.0) % ABG pH (7.35-7.45) ABG pCO2 (35-45) mmHg ABG HCO3 (21-25) mmol/L ABG Total CO2 (19-24) mmol/L ABG O2 Saturation (94-97) % Carbon Dioxide (22-30) mmol/L Creatinine (0.52-1.04) mg/dL Glucose (74-99) mg/dL POC Glucose (mg/dL) 127 H 113 H (70-110) mg/dL Calcium (8.4-10.2) mg/dL Microbiology - Last 24 Hours (Table) 11/24/23 08:02 Gram Stain - Final Thoracic Fluid Body Fluid Culture - Final Methicillin resist S. aureus 11/24/23 00:57 Gram Stain - Final Sputum Sputum Culture - Final Methicillin resist S. aureus 11/23/23 22:00 Blood Culture Gram Stain - Preliminary Blood Blood Culture - Preliminary Presumptive MRSA 11/23/23 22:15 Blood Culture Gram Stain - Preliminary Blood Blood Culture - Preliminary Presumptive MRSA Molecular ID 11/23/23 20:46 Gram Stain - Final Chest Wound Culture - Final Methicillin resist S. aureus Assessment and Plan (1) Empyema Current Visit: Yes Status: Acute Code(s): J86.9 - PYOTHORAX WITHOUT FISTULA SNOMED Code(s): 555580946 (2) MRSA bacteremia Current Visit: Yes Status: Acute Code(s): R78.81 - BACTEREMIA; B95.62 - METHICILLIN RESIS STAPH INFCT CAUSING DISEASES CLASSD [id number] SNOMED Code(s): 94355889213055353 (3) Pneumonia Current Visit: Yes Status: Acute Code(s): J18.9 - PNEUMONIA, UNSPECIFIED ORGANISM SNOMED Code(s): 654101299 (4) Pneumothorax Current Visit: Yes Status: Acute Code(s): J93.9 - PNEUMOTHORAX, UNSPECIFIED SNOMED Code(s): 55872768 Plan: 1patient presented to hospital with sepsis in this patient who did have a fever tachycardia elevated white count source is pulmonary in this patient noted evidence of bilateral pneumothorax and effusion with question of complicated pneumonia/empyema keeping in mind the patient is from local longterm will need to cover for resistant gram-positive such as MRSA and gram-negative pathogen 2-patient blood sputum and pleural fluid culture with MRSA 3-blood cultures has been repeated document clearance of bacteremia 4-patient fever more likely related to subtherapeutic vancomycin trough discussed with the pharmacist to increase the dose of vancomycin to keep the trough between 15 and 20 and will monitor clinical course closely Dictation was produced using [employer] dictation software. please excuse any grammatical, word or spelling errors. Time with Patient: Less than 30
[2023-11-26 18:08] LABS: Glucose,Whole Blood 109 mg/dL (70-110)
[2023-11-26 23:47] LABS: Glucose,Whole Blood 116 mg/dL (70-110)
[2023-11-27 05:14] LABS: HCT 26.7 % (34.0-46.0); HGB 8.5 gm/dL (11.4-16.0); MCH 29.2 pg (25.0-35.0); MCHC 31.9 g/dL (31.0-37.0); MCV 91.6 fL (80.0-100.0); Mean Platelet Volume 8.2; Platelet Count 336 k/uL (150-450); RBC 2.92 m/uL (3.80-5.40); RDW 13.6 % (11.5-15.5); WBC 28.2 k/uL (3.8-10.6)
[2023-11-27 05:31] LABS: African American GFR (CKD) >90 (>60 ml/min/1.73 sqM); Anion Gap 2 mmol/L; Blood Urea Nitrogen 12 mg/dL (7-17); Calcium 6.7 mg/dL (8.4-10.2); Carbon Dioxide 30 mmol/L (22-30); Chloride 102 mmol/L (98-107); Glucose 104 mg/dL (74-99); Non-African American GFR(CKD) >90 (>60 ml/min/1.73 sqM); Potassium 3.6 mmol/L (3.5-5.1); Sodium 134 mmol/L (137-145)
[2023-11-27 06:21] LABS: ABG Base Excess 9.7 mmol/L; ABG HCO3 33 mmol/L (21-25); ABG Oxygen Saturation 96.1 % (94-97); ABG PCO2 43 mmHg (35-45); ABG PH 7.49 (7.35-7.45); ABG PO2 72 mmHg (83-108); ABG TCO2 34 mmol/L (19-24); Allen Test Performed? Yes
[2023-11-27 06:25] LABS: Glucose,Whole Blood 107 mg/dL (70-110)
[2023-11-27] MEDS: POTASSIUM BICARBONATE/CIT AC 20 MEQ TABLET.EFF NG-TUBE SCH (06:45)
--- NOTE | 2023-11-27 08:31 | XR ---
EXAMINATION TYPE: XR chest 1V portable DATE OF EXAM: 11/27/2023 5:32 AM CLINICAL INDICATION:Female, 43 years old with history of pneumothorax; [facility] COMPARISON: Chest radiograph from one day prior. TECHNIQUE: XR chest 1V portable Frontal view of the chest. FINDINGS: Lungs/Pleura: Bilateral pneumothorax which has decreased in size on the right and is stable in size o n the left. Similar airspace opacities in the left midlung and right lung base. There is no evidence of pleural effusion, or focal consolidation. Pulmonary vascularity: Unremarkable. Heart/mediastinum: Cardiomediastinal silhouette is unremarkable. Musculoskeletal: No acute osseous pathology. Other findings: None Lines/Tubes: Endotracheal tube with distal tip 4. cm above the alicia. Nasogastric tube with its distal tip and side-port projecting under the diaphragm. Left central venous catheter with distal tip at the cavoatrial junction. Bilateral thoracotomy tubes are present. There is a decreased right pneumothorax and stable left pneu mothorax. IMPRESSION: 1. Stable exam bilateral thoracotomy tubes with persistent small bilateral pneumothoraces. 2. Endotracheal tube and nasogastric tube in appropriate position.
--- NOTE | 2023-11-27 08:41 | P.PN ---
Subjective Progress Note Date: 11/27/23 Principal diagnosis: Acute hypoxic respiratory failure requiring mechanical ventilation, bilateral hydropneumothoraces, empyema, status post bilateral chest tube insertion, septic shock. History of MS, obesity, migraines, seizures, fibromyalgia, hypertension, asthma, anxiety/depression/bipolar disorder, polysubstance abuse The patient was seen and examined with Dr. Royal this morning laying in bed in the intensive care unit, remains sedated and mechanically ventilated. No lytics instilled yesterday as patient had air leak in both chest tubes. This morning patient still has air leaks in both chest tubes, although intermittent in the right. No lytic instillation. Patient did drain 850 mL from the right chest tube and 450 mL from the left chest tube in the last 24 hours. Patient does have MRSA in her blood, thoracic fluid, sputum, and nasal swab. Currently on IV Vanco, cefepime stopped by ID, WBC trending back up, 28.2 today. No evidence of vegetation on her cardiac valves on echocardiogram. Remains sedated with propofol, fentanyl, Versed. IV levo titrated up overnight. Nursing reports patient does withdraw to painful stimuli but does not follow any commands, has not had a sedation holiday yet. FiO2 has been titrated down to 60%. Patient is not a surgical candidate. Objective - Vital Signs Vital signs: Vital Signs Temp 100.1 F H 11/27/23 04:00 Pulse 96 11/27/23 07:46 Resp 32 H 11/27/23 07:00 BP 156/77 11/27/23 07:00 Pulse Ox 94 L 11/27/23 07:00 FiO2 60 11/27/23 07:47 Intake & Output 11/26/23 11/27/23 11/27/23 18:59 06:59 18:59 Intake Total 3090.670 2508.732 160.240 Output Total 1315 1405 60 Balance 1136.470 5106.732 100.240 Weight 113.1 kg Intake: IV 1703 1716 143 .9 kvo 110 120 10 Lactated Ringers 1,000 ml 1560 1560 130 @ 130 mls/hr IV .Q7H42M [facility] Rx#:[id number] Pressure bag 33 36 3 Intake, IV Titration 1031.670 510.732 1.240 Amount Midazolam HCl 50 mg In 43.5 Sodium Chloride 0.9% 40 ml @ 1 MG/HR 1 mls/hr IV .Q24H [facility] Rx#:[id number] Norepinephrine 32 mg In 90.622 87.657 1.240 Sodium Chloride 0.9% 218 ml @ 0.03 MCG/KG/MIN 1. 403 mls/hr IV .Q24H [facility] Rx#:[id number] Vancomycin 1,750 mg In 500 Sodium Chloride 0.9% 500 ml 500 ml @ 167 mls/hr IVPB Q8H [facility] Rx#: [id number] fentaNYL (PF). 1,000 mcg 197.548 153.931 In Sodium Chloride 0.9% 80 ml @ 0.5 MCG/KG/HR 4. 99 mls/hr IV .Q20H3M [facility] Rx#:[id number] propofoL 1,000 mg In 200 269.144 Empty Bag 1 bag @ 15 MCG/ KG/MIN 8.981 mls/hr IV . Q11H9M [facility] Rx#:[id number] Tube Feeding 176 192 16 Other 180 90 Output: Chest Tube Drainage 710 560 Chest Tube 110 200 Chest Tube Right 600 360 Urine 605 845 60 Other: Voiding Method Indwelling Catheter Indwelling Catheter ABP, PAP, CO, CI - Last Documented Arterial Blood Pressure 97/45 - Exam CONSTITUTIONAL: Currently sedated on mechanical ventilation, laying in bed in the intensive care unit RESPIRATORY: Lungs sounds diminished bilaterally. Respirations even, nonlabored on mechanical ventilation, current settings assist-control mode, FiO2 60%, tidal volume 450, PEEP 5, respiratory rate 32. CARDIOVASCULAR: S1, S2 present. Regular rate and rhythm, sinus rhythm to sinus tach on telemetry. Palpable peripheral pulses bilaterally. Generalized trace edema present. No calf pain or tenderness noted. SCDs present. GASTROINTESTINAL: Abdomen soft, nontender, nondistended. Active bowel sounds present 4 quadrants. OG tube present, tube feeding infusing at 16 mL/h GENITOURINARY: Beth present draining clear, yellow urine. Output 1450 mL in the last 24 hours INTEGUMENTARY: Skin is warm and dry NEUROLOGIC: Sedated on mechanical ventilation INVASIVE LINES AND TUBES: Left/right pleural chest tubes present and connected to wall suction, continuous air leak present in the left chest tube, intermittent airleak present to right chest tube. Left pleural chest tube with 150 mL purulent drainage overnight, 450 mL in the last 24 hours. Right pleural chest tube with 160 mL serosanguineous drainage overnight, 850 mL last 24 hours. - Allied health notes Allied health notes reviewed: nursing - Labs CBC & Chem 7: 11/27/23 05:01 11/27/23 05:01 Labs: Abnormal Lab Results - Last 24 Hours (Table) 11/26/23 11/26/23 11/27/23 Range/Units 11:50 23:45 05:01 WBC 28.2 H (3.8-10.6) k/uL RBC 2.92 L (3.80-5.40) m/uL Hgb 8.5 L (11.4-16.0) gm/dL Hct 26.7 L (34.0-46.0) % ABG pH (7.35-7.45) ABG pO2 (83-108) mmHg ABG HCO3 (21-25) mmol/L ABG Total CO2 (19-24) mmol/L Sodium (137-145) mmol/L Creatinine (0.52-1.04) mg/dL Glucose (74-99) mg/dL POC Glucose (mg/dL) 113 H 116 H (70-110) mg/dL Calcium (8.4-10.2) mg/dL 11/27/23 11/27/23 Range/Units 05:01 06:14 WBC (3.8-10.6) k/uL RBC (3.80-5.40) m/uL Hgb (11.4-16.0) gm/dL Hct (34.0-46.0) % ABG pH 7.49 H (7.35-7.45) ABG pO2 72 L (83-108) mmHg ABG HCO3 33 H (21-25) mmol/L ABG Total CO2 34 H (19-24) mmol/L Sodium 134 L (137-145) mmol/L Creatinine 0.48 L (0.52-1.04) mg/dL Glucose 104 H (74-99) mg/dL POC Glucose (mg/dL) (70-110) mg/dL Calcium 6.7 L (8.4-10.2) mg/dL Microbiology - Last 24 Hours (Table) 11/24/23 08:02 Gram Stain - Final Thoracic Fluid Body Fluid Culture - Final Methicillin resist S. aureus 11/24/23 00:57 Gram Stain - Final Sputum Sputum Culture - Final Methicillin resist S. aureus - Imaging and Cardiology Chest x-ray: image reviewed Assessment and Plan Assessment: Acute hypoxic respiratory failure requiring mechanical ventilation Bilateral hydropneumothoraces, empyema, status post bilateral chest tube insertion Septic shock, requiring IV vasopressors Chest pain, shortness of breath present on admission secondary to above History of MS Obesity Migraines Seizures Fibromyalgia Hypertension, currently hypotensive on pressors Asthma Anxiety/depression/bipolar disorder Polysubstance abuse Plan: No surgical intervention planned, conservative management No lytics today due to air leak in both chest tubes Ventilator management per certified ophthalmic assistant Wean pressors as able Antibiotics per infectious disease Medical management of other comorbidities per internal medicine, pulmonology, ID Goals of care to be discussed as patient does not appear to be improving, poor prognosis More recommendations to follow
[2023-11-27 11:47] LABS: Glucose,Whole Blood 95 mg/dL (70-110)
--- NOTE | 2023-11-27 12:09 | P.PN ---
Subjective Progress Note Date: 11/27/23 Principal diagnosis: Acute hypoxic respiratory failure secondary to bilateral pn eumonia/empyema/hydropneumothorax This is a 43-year-old female patient who is currently incarcerated who presented from a local longterm with shortness of breath and chest pain. Apparently, the patient has been having the symptoms for the past 3 weeks. She stated that she was having right-sided lateral chest pain along with difficulty breathing. In the emergency, the patient was extremely short of breath, tachycardic and hypoxic. She was also having cough. She was running a fever of 101.4. She was tachycardic with a heart rate of 155. Blood pressure was still stable at that point. She was placed on 100% nonrebreather facemask. A quick chest x-ray was done and the chest x-ray was abnormal with evidence of bilateral pneumothoraces moderate size right and large left-sided pneumothorax. There was also small right-sided pleural effusion and moderate-sized left-sided pleural effusion. There was near complete collapse of the left lung with scattered areas of scattered lung along the pleura. There was also consolidation involving the right lower lobe and the right middle lobe. Based on those findings, the patient was given a CTA of the chest that showed no evidence of pneumothorax. Similar findings were noted with the patient was found to have bilateral pneumothoraces. Pleural effusions were again noted large on the left and moderate-sized on the right. No evidence of any filling defects. At that point, a left-sided chest tube was inserted and copious amount of purulent material was drained from the left lung a total of 800 cc of pus and has already drained from the left lung. The patient was moved to the intensive care unit. She was quite short of breath. She was initially on Airvo system with an FiO2 of 90% with a 60 L flow. She became more short of breath and hemodynamically unstable and hypotensive. At that point, the decision was to intubate the patient and placed on mechanical ventilation. Postintubation, the patient developed peak pressuring. There was worsening in the air leak in the left lung chest tube. At the same time, the patient became unstable and became progressively more hypotensive. Pressors were initiated and the patient is c urrently on norepinephrine running at 0.3 mcg/kg/min. Repeat chest x-ray was done and it showed worsening of the right-sided pneumothorax. I attended on this patient and immediately inserted triple-lumen catheter for vascular access and hemodynamic support. Resuscitation was continued. At the same time, I inserted a right-sided chest tube and another 400 cc of purulent material was aspirated from the right lung. Subsequent chest x-ray showed reexpansion of the right lung without any evidence of residual pneumothorax. Left lung is extensively consolidated and there is a loculated pneumothorax in the left posterior lateral aspect. At this point in time, the patient is intubated on mechanical ventilator. She is on an assist-control mode at rate of 30, tidal volume of 400, FiO2 is at 100% with a PEEP of 5. She is on norepinephrine. This is being weaned off. She is sedated with propofol which is running at 70 mcg/kg/min. She is also on normal saline at rate of 130 cc an hour. The patient is adequately sedated. She was given also a dose of Nimbex during those procedures. The white cell count is at 23.8 with a hemoglobin of 10.3 and a platelet count of 419. The most recent blood gas showed a pH of 7.32 and a pCO2 of 50 and pO2 of 65 and this was done prior to the insertion of the right-sided chest tube. The sodium is at 129 with a potassium level of 3.9 with a bicarb of 23 and a BUN of 44 with a creatinine of 0.9. Lactic acid level initially was at 2.8 and currently down to 1.5. LFTs are mildly elevated with an AST of 69, ALT of 64, troponins are negative and the proBNP level is within normal limits. The viral screen was also negative. Blood cultures were sent. The patient was started on a combination of IV cefepime, vancomycin and Zithromax. Based on her past medical history, this patient has history of multiple sclerosis, she is morbidly obese, she has history of migraine seizure disorder and fibromyalgia and hypertension. She also has history of anxiety and depression. She has history of polysubstance abuse which includes heroin heroin, cocaine, marijuana and marijuana use. She also does prescription pills. Her last hospital admission was back in November 2022 and at that time the patient was treated for exacerbation of her multiple sclerosis. Patient was evaluated this morning, patient is hemodynamically unstable, still requiring norepinephrine at 0.08 mcg/kg/min she is also requiring vasopressin at 0.03 units/h. Patient is receiving LR at 150 cc/h. Chest x-ray continues to show hydropneumothorax, both chest tubes are draining purulent and serosanguineous material the left-sided chest tube is draining pus, and the right-sided chest tube is draining serosanguineous liquid. Right sided drained 400 cc since last night and the left side drained 800 cc since last night. Clearly the patient has empyema she may or may not require decortication or thrombolytic instillation into the pleural space. Patient continues to have air leak in both chest tubes. She is on assist-control rate of 30 tidal volume 400 FiO2 down to 50% PEEP of 5 last ABG showed a pO2 of 147 pCO2 42 pH of 7.33. Thoracic surgery was consulted and infectious disease was also consulted. Patient is receiving presently vancomycin and cefepime, she has allergies to penicillin hence Zosyn was discontinued. Her urine output is reasonable, patient received 3 L of fluid boluses and she is on IV fluid at 130 cc/h. Patient is critically ill. Continues to have leukocytosis with WBC count of 23.7 hemoglobin 9.8. Basic metabolic profile is normal. Urine test is positive for opiates Patient was reevaluated today on 11/25/2023, remains in the ICU intubated and mechanically ventilated. Patient is on assist-control of 3 0 tidal volume 400 FiO2 50% PEEP of 5 ABG showed a pO2 of 102 pCO2 41 pH of 7.48, hence no changes were made in present vent settings. Patient remains on antibiotics in the form of vancomycin and cefepime, we are treating positive blood cultures for MRSA and positive left-sided pleural effusion which is positive for MRSA. Patient is receiving fentanyl at 2 mcg/kg/h propofol at 75 mcg/kg/min Versed at 2 mg/h norepinephrine at 0.05 mcg/kg/min. IV fluid is running at 130 cc/h in the form of lactated Ringer's. Urine output has been excellent over 50 cc an hour. Chest x-ray continues to show evidence of bilateral pneumothoraces, there is a loculated left-sided pneumothorax and there is a apical right-sided pneumothorax. The drainage from the left-sided chest tube is noted to be purulent drainage from the right-sided chest tube is noted to be serosanguineous. Patient did receive lytic treatment to the loculated effusion on the right side, but no lytics applied to the left side. Patient is having air leak in the left-sided chest tube, but no air leak noted in the right-sided chest tube although the patient does have a small apical pneumothorax noted. WBC count today is 12.6 hemoglobin 8.1, basic metabolic profile is normal renal profile is normal. Patient evaluated today on 11/26/2023, remains in the ICU intubated and mechanically ventilated. Remains on assist-control rate of 30 tidal volume 400 FiO2 75% PEEP of 5 apparently the patient desaturated yesterday, and she seems to be developing more air leak from the bilateral pneumothoraces/chest tubes. Today I increased her tidal volume up to 450 increase the rate up to 32 PEEP the same cut down FiO2 down to 60%. ABG showed a pO2 of 93 pCO2 47 pH of 7.47. Patient remains on antibiotics including vancomycin for her MRSA in the sputum and in the blood as well as in the pleural fluid. Patient remains on fentanyl 1.5 mcg/kg/h LR at 130 cc/h Versed 3 mg/h norepinephrine 0.18 mcg/kg/min propofol at 50 mcg/kg/min. Chest x-ray continues to show bilateral pneumothoraces right and left, the left one seems to be loculated and the right one seems to be apical there is at least 50 cc of volume loss with each tidal volume. Hence tidal volume was increased from 400 to 450. Her overall clinical condition remains very critical, patient has very poor prognosis, nonetheless she is on appropriate antibiotics, bronchodilators, and continues to have bilate ral chest tubes. WBC count today is 25.2 hemoglobin 9.3 basic metabolic profile is normal renal profile is normal Reevaluate today , remains in the ICU, intubated and mechanically ventilated, on assist-control rate of 42 tidal volume 450 FiO2 60% PEEP of 5 ABG showed a pO2 of 72 pCO2 43 pH of 7.49. Patient remains fully sedated she is on fentanyl 1.5 mcg/kg/min she is also on Versed 3 mg/h. Propofol at 50 mcg/kg/min. Patient remains hemodynamically unstable requiring norepinephrine at 0.11 mcg/kg/min she is on vital HP at 16 mL/h. She is also on LR at 150 cc/h. Today I did not make any changes in her ventilator settings. Her chest x-ray is basically about the same continues to show right-sided pneumothorax but I do not see an air leak today on the right side but she does have an air leak on the left side and continues to have significant purulent drainage from the chest tube on the left side. 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 Not much of a change overnight, patient remains critically ill. Continues to have leukocytosis with WBC count of 28.2 hemoglobin 8.5 basic metabolic profile is normal and renal profile is normal Objective - Vital Signs Vital signs: Vital Signs Temp 99.5 F 11/27/23 08:30 Pulse 98 11/27/23 11:15 Resp 32 H 11/27/23 11:00 BP 117/65 11/27/23 11:00 Pulse Ox 94 L 11/27/23 11:00 FiO2 60 11/27/23 11:03 Intake & Output 11/26/23 11/27/23 11/27/23 18:59 06:59 18:59 Intake Total 3090.670 2508.732 1459.064 Output Total 1315 1405 290 Balance 5824.252 5568.732 1169.064 Weight 113.1 kg Intake: IV 1703 1716 685 .9 kvo 110 120 20 Lactated Ringers 1,000 ml 1560 1560 650 @ 130 mls/hr IV .Q7H42M [facility] Rx#:[id number] Pressure bag 33 36 15 Intake, IV Titration 1031.670 510.732 664.064 Amount Midazolam HCl 50 mg In 43.5 49.2 Sodium Chloride 0.9% 40 ml @ 1 MG/HR 1 mls/hr IV .Q24H [facility] Rx#:[id number] Norepinephrine 32 mg In 90.622 87.657 15.071 Sodium Chloride 0.9% 218 ml @ 0.03 MCG/KG/MIN 1. 403 mls/hr IV .Q24H [facility] Rx#:[id number] Vancomycin 1,750 mg In 500 500 Sodium Chloride 0.9% 500 ml 500 ml @ 167 mls/hr IVPB Q8H [facility] Rx#: [id number] fentaNYL (PF). 1,000 mcg 197.548 153.931 99.793 In Sodium Chloride 0.9% 80 ml @ 0.5 MCG/KG/HR 4. 99 mls/hr IV .Q20H3M [facility] Rx#:[id number] propofoL 1,000 mg In 200 269.144 Empty Bag 1 bag @ 15 MCG/ KG/MIN 8.981 mls/hr IV . Q11H9M [facility] Rx#:[id number] Tube Feeding 176 192 80 Other 180 90 30 Output: Chest Tube Drainage 710 560 40 Chest Tube 110 200 20 Chest Tube Right 600 360 20 Urine 605 845 250 Other: Voiding Method Indwelling Catheter Indwelling Catheter Indwelling Catheter ABP, PAP, CO, CI - Last Documented Arterial Blood Pressure 99/43 - Exam General: Revealed 43-year-old female intubated, obese, stated, not in distress Skin: Skin is warm and dry and no rashes or lesions are noted. Eye: Pupils are equal, round and reactive to light, extra-ocular movements are intact; there is normal conjunctiva bilaterally. Ears, nose, mouth and throat: There are moist mucous membranes and no oral lesions. Neck: The neck is supple, there is no tenderness or JVD. Cardiovascular: There is a regular rate and rhythm. No murmur, rub or gallop is appreciated. Respiratory: Scattered rhonchi noted bilaterally. Crackles at the bases. Bilateral chest tubes noted.. Significant air leak noted in the left side chest tube Gastrointestinal: Obese, soft, nontender, no megaly no rebound. Back: There is no tenderness to palpation in the midline. There is no obvious deformity. Musculoskeletal: No deformities noted Neurological: Not assessed patient is sedated, on propofol, Versed, and fentanyl. Psychiatric: Could not assess mostly because of sedation. - Labs CBC & Chem 7: 11/27/23 05:01 11/27/23 05:01 Labs: Abnormal Lab Results - Last 24 Hours (Table) 11/26/23 11/27/23 11/27/23 Range/Units 23:45 05:01 05:01 WBC 28.2 H (3.8-10.6) k/uL RBC 2.92 L (3.80-5.40) m/uL Hgb 8.5 L (11.4-16.0) gm/dL Hct 26.7 L (34.0-46.0) % ABG pH (7.35-7.45) ABG pO2 (83-108) mmHg ABG HCO3 (21-25) mmol/L ABG Total CO2 (19-24) mmol/L Sodium (137-145) mmol/L Creatinine (0.52-1.04) mg/dL Glucose (74-99) mg/dL POC Glucose (mg/dL) 116 H (70-110) mg/dL Hemoglobin A1c 6.1 H (<=6.0) % Calcium (8.4-10.2) mg/dL 11/27/23 11/27/23 Range/Units 05:01 06:14 WBC (3.8-10.6) k/uL RBC (3.80-5.40) m/uL Hgb (11.4-16.0) gm/dL Hct (34.0-46.0) % ABG pH 7.49 H (7.35-7.45) ABG pO2 72 L (83-108) mmHg ABG HCO3 33 H (21-25) mmol/L ABG Total CO2 34 H (19-24) mmol/L Sodium 134 L (137-145) mmol/L Creatinine 0.48 L (0.52-1.04) mg/dL Glucose 104 H (74-99) mg/dL POC Glucose (mg/dL) (70-110) mg/dL Hemoglobin A1c (<=6.0) % Calcium 6.7 L (8.4-10.2) mg/dL Microbiology - Last 24 Hours (Table) 11/23/23 22:00 Blood Culture Gram Stain - Final Blood Blood Culture - Final Methicillin resist S. aureus 11/23/23 22:15 Blood Culture Gram Stain - Final Blood Blood Culture - Final Methicillin resist S. aureus Molecular ID 11/24/23 08:02 Gram Stain - Final Thoracic Fluid Body Fluid Culture - Final Methicillin resist S. aureus 11/24/23 00:57 Gram Stain - Final Sputum Sputum Culture - Final Methicillin resist S. aureus Assessment and Plan Assessment: Impression:Acute hypoxic respiratory failure Acute bilateral pneumonia with empyema/hydropneumothorax, status post chest tube placement on both side Acute bacteremia secondary to MRSA secondary to empyema/pneumonia Acute sepsis and septic shock secondary to above Acute leukocytosis, improving History of polysubstance abuse History of MS History of depression and anxiety History of interstitial cystitis and UTI Fibromyalgia Chronic pain syndrome History of seizure disorder Degenerative joint disease Benign essential hypertension Morbid obesity Recommendation: Continue ventilatory support, could not make much changes in her vent settings considering her significant air leak and will not increase the PEEP at this point higher than 5 Continue bilateral chest tubes to suction and continue to monitor drainage and airleak. Continue vancomycin, Endocarditis was ruled out. Continue pressors and hemodynamic support, dose of norepinephrine has been titrated down to 0.11 mcg/kg/min Continue nutritional support/enteral feeding Continue DVT prophylaxis and continue GI prophylaxis Remains critically ill prognosis is guarded Critical care time is over 30-minute Will continue to follow. Time with Patient: Greater than 30
[2023-11-27] MEDS: MAGNESIUM HYDROXIDE 2,400 MG/30 ML CUP PO PRN (13:20)
--- NOTE | 2023-11-27 13:26 | P.PN ---
Subjective Progress Note Date: 11/27/23 patient 43-year-old lady who is currently incarcerated and was brought to the ER for chest pain and shortness of breath. Most of the history is been taken from the electronic medical record according to which patient has been having shortness of breath for the last few weeks. Patient also been complaining of cough and chest pain. Patient also has having fevers at the facility. Because of the symptoms, patient was brought to the ER. Where patient was found to be extremely tachycardic and hypoxic, patient had to be placed on 100% nonrebreather mask. Initial chest x-ray done showed bilateral pneumothoraces with moderate size right large left-sided pneumothorax. Initial lab work done in the ER showed WBC 23.8, hemoglobin 9.3, platelet count 490, INR 1.3, D-dimer 4.66, sodium 129, potassium 3.9, BUN 44, creatinine 0.96, glucose 121, lactate 2.8, AST 16, ALT 64 Influenza A not detected Influenza B not detected RSV not detected COVID-19 not detected CTA chest done in the ER showed bilateral hydropneumothoraces, there is a small to moderate right and large left pneumothorax small right and moderate left pleural effusions. Areas of tethering of the lung attached to the pleura most pronounced anteriorly and superiorly correlate for superimposed infection. Patient had a left-sided chest tube placed in the ER and was transferred to ICU where she was later intubated. Labs done this morning showed WBC 12.6, hemoglobin 8.1, platelet count 380, sodium 141, potassium 3.5, BUN 12, c reatinine 0.60. 2D echo done showed LVEF of 65 to 70%, no obvious regional wall motion abnormalities. Blood cultures growing MRSA Patient admitted to ICU under internal medicine service 11/24. Patient seen and examined. Continues to be intubated, has bilateral chest tubes. Patient had lytics instilled in the right chest tube with 650 mL output 11/25. Patient seen and examined in the ICU. Continues to be intubated. Total output from right chest tube is close to 134 0 mL after instilling the lytics. Continues to be on propofol, fentanyl, Versed. Patient also on IV Levophed. 11/26. Patient seen and examined. Blood work done this morning showed WBC 28.2, hemoglobin 8.5, platelet count 336, sodium 134, potassium 3.6, BUN 12, creatinine 0.48, calcium 6.7. Continues to be on IV antibiotics and pressors. REVIEW OF SYSTEMS: Cannot be obtained as patient currently intubated and sedated PHYSICAL EXAMINATION: GENERAL: The patient is intubated and sedated, not in any acute distress. Well developed, well nourished. HEENT: Pupils are round and equally reacting to light. EOMI. No scleral icterus. No conjunctival pallor. Normocephalic, atraumatic. No pharyngeal erythema. No thyromegaly. CARDIOVASCULAR: S1 and S2 present. No murmurs, rubs, or gallops. PULMONARY: Tachypneic, diminished breath sound the bases bilaterally, bilateral chest tube seen ABDOMEN: Soft, nontender, nondistended, normoactive bowel sounds. No palpable organomegaly. MUSCULOSKELETAL: No joint swelling or deformity. EXTREMITIES: No cyanosis, clubbing, or pedal edema. NEUROLOGICAL: Currently intubated and sedated SKIN: No rashes. Assessment and plan Acute hypoxic respiratory failure Acute bilateral pneumonia complicated by bilateral pneumothoraces. Acute bilateral empyema, post bilateral chest tube insertion with purulent material draining from both lungs. MRSA bacteremia Acute septic shock, Acute leukocytosis secondary to above Morbid obesity Polysubstance abuse Hyponatremia Elevated LFTs Lactic acidosis Monitor vital signs Monitor CBC Monitor CMP Continue telemetry monitoring Continue vent management per ICU Aggressive bronchopulmonary hygiene Blood cultures growing MRSA, repeat blood cultures till clearence Sputum cultures ordered Continue IV cefepime, vancomycin Continue Levophed Continue chest tube management per CT surgery, lytics instilled into the right chest tube on 11/24, no plan for surgical intervention Critical care following ID following Patient's very poor prognosis per multiple specialities Labs and medication were reviewed.. Continue same treatment. Continue with symptomatic treatment. Resume home medication. Monitor labs and vitals. DVT and GI prophylaxis. Further recommendations as per clinical course of the patient Dictation was produced using [employer] dictation software. please excuse any grammatical, word or spelling errors. Objective - Vital Signs Vital signs: Vital Signs Temp 99.3 F 11/27/23 12:00 Pulse 103 H 11/27/23 12:00 Resp 32 H 11/27/23 12:00 BP 116/64 11/27/23 12:00 Pulse Ox 93 L 11/27/23 12:00 FiO2 60 04/18/24 12:00 Intake & Output 11/26/23 11/27/23 11/27/23 18:59 06:59 18:59 Intake Total 3090.670 2508.732 1773.240 Output Total 1315 1405 360 Balance 8422.620 3755.732 1413.240 Weight 113.1 kg Intake: IV 1703 1716 818 .9 kvo 110 120 20 Lactated Ringers 1,000 ml 1560 1560 780 @ 130 mls/hr IV .Q7H42M [facility] Rx#:[id number] Pressure bag 33 36 18 Intake, IV Titration 1031.670 510.732 799.240 Amount Lactated Ringers 1,000 ml 130 @ 130 mls/hr IV .Q7H42M [facility] Rx#:[id number] Midazolam HCl 50 mg In 43.5 49.2 Sodium Chloride 0.9% 40 ml @ 1 MG/HR 1 mls/hr IV .Q24H [facility] Rx#:[id number] Norepinephrine 32 mg In 90.622 87.657 20.247 Sodium Chloride 0.9% 218 ml @ 0.03 MCG/KG/MIN 1. 403 mls/hr IV .Q24H [facility] Rx#:[id number] Vancomycin 1,750 mg In 500 500 Sodium Chloride 0.9% 500 ml 500 ml @ 167 mls/hr IVPB Q8H [facility] Rx#: [id number] fentaNYL (PF). 1,000 mcg 197.548 153.931 99.793 In Sodium Chloride 0.9% 80 ml @ 0.5 MCG/KG/HR 4. 99 mls/hr IV .Q20H3M [facility] Rx#:[id number] propofoL 1,000 mg In 200 269.144 Empty Bag 1 bag @ 15 MCG/ KG/MIN 8.981 mls/hr IV . Q11H9M [facility] Rx#:[id number] Tube Feeding 176 192 96 Other 180 90 60 Output: Chest Tube Drainage 710 560 70 Chest Tube 110 200 50 Chest Tube Right 600 360 20 Urine 605 845 290 Other: Voiding Method Indwelling Catheter Indwelling Catheter Indwelling Catheter ABP, PAP, CO, CI - Last Documented Arterial Blood Pressure 108/47 - Labs CBC & Chem 7: 11/27/23 05:01 11/27/23 05:01 Labs: Abnormal Lab Results - Last 24 Hours (Table) 11/26/23 11/27/23 11/27/23 Range/Units 23:45 05:01 05:01 WBC 28.2 H (3.8-10.6) k/uL RBC 2.92 L (3.80-5.40) m/uL Hgb 8.5 L (11.4-16.0) gm/dL Hct 26.7 L (34.0-46.0) % ABG pH (7.35-7.45) ABG pO2 (83-108) mmHg ABG HCO3 (21-25) mmol/L ABG Total CO2 (19-24) mmol/L Sodium (137-145) mmol/L Creatinine (0.52-1.04) mg/dL Glucose (74-99) mg/dL POC Glucose (mg/dL) 116 H (70-110) mg/dL Hemoglobin A1c 6.1 H (<=6.0) % Calcium (8.4-10.2) mg/dL 11/27/23 11/27/23 Range/Units 05:01 06:14 WBC (3.8-10.6) k/uL RBC (3.80-5.40) m/uL Hgb (11.4-16.0) gm/dL Hct (34.0-46.0) % ABG pH 7.49 H (7.35-7.45) ABG pO2 72 L (83-108) mmHg ABG HCO3 33 H (21-25) mmol/L ABG Total CO2 34 H (19-24) mmol/L Sodium 134 L (137-145) mmol/L Creatinine 0.48 L (0.52-1.04) mg/dL Glucose 104 H (74-99) mg/dL POC Glucose (mg/dL) (70-110) mg/dL Hemoglobin A1c (<=6.0) % Calcium 6.7 L (8.4-10.2) mg/dL Microbiology - Last 24 Hours (Table) 11/23/23 22:00 Blood Culture Gram Stain - Final Blood Blood Culture - Final Methicillin resist S. aureus 11/23/23 22:15 Blood Culture Gram Stain - Final Blood Blood Culture - Final Methicillin resist S. aureus Molecular ID 11/24/23 08:02 Gram Stain - Final Thoracic Fluid Body Fluid Culture - Final Methicillin resist S. aureus 11/24/23 00:57 Gram Stain - Final Sputum Sputum Culture - Final Methicillin resist S. aureus
--- NOTE | 2023-11-27 14:39 | P.PN ---
Subjective Progress Note Date: 11/27/23 Principal diagnosis: Reason for follow-up is sepsis MRSA pneumonia bacteremia and empyema Patient is a 43-year-old female past medical history significant for hypertension fibromyalgia asthma reflux seizure disorder currently incarcerated and [facility] for evaluation of increasing shortness of breath and chest pain, patient did have evidence of bilateral hydropneumothorax requiring bilateral chest tube placement and did have a positive blood culture with MRSA. On today's visit that is 11/27/2023, patient did have improvement in her fever pattern last temperature has been 100.1 at 4 AM and 99.3 F at noon, patient remains to be debated on the vent FiO2 is currently at 60% no significant purulent secretions through the ET and is requiring less pressor support compared to yesterday per the nursing staff. Patient white count is 28.2, creatinine 0.48 Objective - Vital Signs Vital signs: Vital Signs Temp 99.3 F 11/27/23 12:00 Pulse 106 H 11/27/23 13:30 Resp 32 H 11/27/23 13:30 BP 105/64 11/27/23 13:30 Pulse Ox 94 L 11/27/23 13:30 FiO2 60 11/27/23 12:00 Intake & Output 11/26/23 11/27/23 11/27/23 18:59 06:59 18:59 Intake Total 3090.670 2508.732 2056.824 Output Total 1315 1405 360 Balance 8036.304 6660.732 1696.824 Weight 113.1 kg Intake: IV 1703 1716 951 .9 kvo 110 120 20 Lactated Ringers 1,000 ml 1560 1560 910 @ 130 mls/hr IV .Q7H42M [facility] Rx#:[id number] Pressure bag 33 36 21 Intake, IV Titration 1031.670 510.732 903.824 Amount Lactated Ringers 1,000 ml 130 @ 130 mls/hr IV .Q7H42M [facility] Rx#:[id number] Midazolam HCl 50 mg In 43.5 49.2 Sodium Chloride 0.9% 40 ml @ 1 MG/HR 1 mls/hr IV .Q24H [facility] Rx#:[id number] Norepinephrine 32 mg In 90.622 87.657 24.831 Sodium Chloride 0.9% 218 ml @ 0.03 MCG/KG/MIN 1. 403 mls/hr IV .Q24H [facility] Rx#:[id number] Vancomycin 1,750 mg In 500 500 Sodium Chloride 0.9% 500 ml 500 ml @ 167 mls/hr IVPB Q8H [facility] Rx#: [id number] fentaNYL (PF). 1,000 mcg 197.548 153.931 99.793 In Sodium Chloride 0.9% 80 ml @ 0.5 MCG/KG/HR 4. 99 mls/hr IV .Q20H3M [facility] Rx#:[id number] propofoL 1,000 mg In 200 269.144 100 Empty Bag 1 bag @ 15 MCG/ KG/MIN 8.981 mls/hr IV . Q11H9M [facility] Rx#:[id number] Tube Feeding 176 192 112 Other 180 90 90 Output: Chest Tube Drainage 710 560 70 Chest Tube 110 200 50 Chest Tube Right 600 360 20 Urine 605 845 290 Other: Voiding Method Indwelling Catheter Indwelling Catheter Indwelling Catheter ABP, PAP, CO, CI - Last Documented Arterial Blood Pressure 104/43 - Exam GENERAL DESCRIPTION: Middle-aged female intubated on the vent RESPIRATORY SYSTEM: Unlabored breathing , coarse breath sounds bilaterally HEART: S1 S2 regular rate and rhythm , ABDOMEN: Soft , no tenderness EXTREMITIES: No edema feet - Labs CBC & Chem 7: 11/27/23 05:01 11/27/23 05:01 Labs: Abnormal Lab Results - Last 24 Hours (Table) 11/26/23 11/27/23 11/27/23 Range/Units 23:45 05:01 05:01 WBC 28.2 H (3.8-10.6) k/uL RBC 2.92 L (3.80-5.40) m/uL Hgb 8.5 L (11.4-16.0) gm/dL Hct 26.7 L (34.0-46.0) % ABG pH (7.35-7.45) ABG pO2 (83-108) mmHg ABG HCO3 (21-25) mmol/L ABG Total CO2 (19-24) mmol/L Sodium (137-145) mmol/L Creatinine (0.52-1.04) mg/dL Glucose (74-99) mg/dL POC Glucose (mg/dL) 116 H (70-110) mg/dL Hemoglobin A1c 6.1 H (<=6.0) % Calcium (8.4-10.2) mg/dL 11/27/23 11/27/23 Range/Units 05:01 06:14 WBC (3.8-10.6) k/uL RBC (3.80-5.40) m/uL Hgb (11.4-16.0) gm/dL Hct (34.0-46.0) % ABG pH 7.49 H (7.35-7.45) ABG pO2 72 L (83-108) mmHg ABG HCO3 33 H (21-25) mmol/L ABG Total CO2 34 H (19-24) mmol/L Sodium 134 L (137-145) mmol/L Creatinine 0.48 L (0.52-1.04) mg/dL Glucose 104 H (74-99) mg/dL POC Glucose (mg/dL) (70-110) mg/dL Hemoglobin A1c (<=6.0) % Calcium 6.7 L (8.4-10.2) mg/dL Microbiology - Last 24 Hours (Table) 11/23/23 22:00 Blood Culture Gram Stain - Final Blood Blood Culture - Final Methicillin resist S. aureus 11/23/23 22:15 Blood Culture Gram Stain - Final Blood Blood Culture - Final Methicillin resist S. aureus Molecular ID 11/24/23 08:02 Gram Stain - Final Thoracic Fluid Body Fluid Culture - Final Methicillin resist S. aureus Assessment and Plan (1) Empyema Current Visit: Yes Status: Acute Code(s): J86.9 - PYOTHORAX WITHOUT FISTULA SNOMED Code(s): 711967358 (2) MRSA bacteremia Current Visit: Yes Status: Acute Code(s): R78.81 - BACTEREMIA; B95.62 - METHICILLIN RESIS STAPH INFCT CAUSING DISEASES CLASSD [facility] SNOMED Code(s): 21438821470026449 (3) Pneumonia Current Visit: Yes Status: Acute Code(s): J18.9 - PNEUMONIA, UNSPECIFIED ORGANISM SNOMED Code(s): 993104741 (4) Pneumothorax Current Visit: Yes Status: Acute Code(s): J93.9 - PNEUMOTHORAX, UNSPECIFIED SNOMED Code(s): 16124991 Plan: 1patient presented to hospital with sepsis in this patient who did have a fever tachycardia elevated white count source is pulmonary in this patient noted evidence of bilateral pneumothorax and effusion with question of complicated pneumonia/empyema keeping in mind the patient is from local custodial will need to cover for resistant gram-positive such as MRSA and gram-negative pathogen 2-patient blood sputum and pleural fluid culture with MRSA 3-blood cultures has been repeated document clearance of bacteremia 4-patient did have improvement in her fever pattern white count still up and will monitor closely continue with the vancomycin discussed with the nursing staff Dictation was produced using [employer] dictation software. please excuse any grammatical, word or spelling errors. Time with Patient: Less than 30
[2023-11-27 17:48] LABS: Glucose,Whole Blood 90 mg/dL (70-110)
[2023-11-27 23:40] LABS: Glucose,Whole Blood 92 mg/dL (70-110)
[2023-11-28 05:11] LABS: HCT 23.2 % (34.0-46.0); HGB 7.4 gm/dL (11.4-16.0); MCH 29.1 pg (25.0-35.0); Mean Platelet Volume 8.9; Platelet Count 258 k/uL (150-450); RBC 2.55 m/uL (3.80-5.40); RDW 13.8 % (11.5-15.5); WBC 23.1 k/uL (3.8-10.6)
[2023-11-28 05:28] LABS: African American GFR (CKD) >90 (>60 ml/min/1.73 sqM); Anion Gap 4 mmol/L; Blood Urea Nitrogen 10 mg/dL (7-17); Calcium 6.6 mg/dL (8.4-10.2); Carbon Dioxide 26 mmol/L (22-30); Chloride 104 mmol/L (98-107); Glucose 80 mg/dL (74-99); Non-African American GFR(CKD) >90 (>60 ml/min/1.73 sqM); Potassium 3.5 mmol/L (3.5-5.1); Sodium 134 mmol/L (137-145)
[2023-11-28 05:48] LABS: Glucose,Whole Blood 94 mg/dL (70-110)
[2023-11-28 05:49] LABS: ABG Base Excess 7.1 mmol/L; ABG HCO3 30 mmol/L (21-25); ABG Oxygen Saturation 96.3 % (94-97); ABG PCO2 37 mmHg (35-45); ABG PH 7.52 (7.35-7.45); ABG PO2 73 mmHg (83-108); ABG TCO2 31 mmol/L (19-24); Allen Test Performed? Yes
[2023-11-28] MEDS: POTASSIUM BICARBONATE/CIT AC 20 MEQ TABLET.EFF NG-TUBE SCH ×3 (06:21→20:52)
--- NOTE | 2023-11-28 07:50 | P.PN ---
Subjective Progress Note Date: 11/28/23 Principal diagnosis: Acute hypoxic respiratory failure requiring mechanical ventilation, bilateral hydropneumothoraces, empyema, status post bilateral chest tube insertion, septic shock. History of MS, obesity, migraines, seizures, fibromyalgia, hypertension, asthma, anxiety/depression/bipolar disorder, polysubstance abuse The patient was seen and examined this morning laying in bed in the intensive care unit, remains sedated and mechanically ventilated. No lytics instilled yesterday as patient had air leak in both chest tubes. This morning patient doesn't have any apparent air leaks although nursing reports she had intermittent air leaks overnight. Patient appears to be putting out adequate drainage from chest tube site despite no lytic instillation. Patient did drain 200 mL from the right chest tube and 400 mL from the left chest tube in the last 24 hours. Patient does have MRSA in her blood, thoracic fluid, sputum, and nasal swab. Currently on IV Vanco, cefepime stopped by ID, WBC trending down this morning, 23.1 today. Remains sedated with propofol, fentanyl, Versed. IV levo titrated down overnight. Nursing reports patient does withdraw to painful stimuli but does not follow any commands, has not had a sedation holiday yet. FiO2 remains at 60%. Patient is not a surgical candidate. Objective - Vital Signs Vital signs: Vital Signs Temp 101.7 F H 11/28/23 04:00 Pulse 111 H 11/28/23 07:38 Resp 32 H 11/28/23 07:00 BP 105/55 11/28/23 07:00 Pulse Ox 96 11/28/23 07:00 FiO2 60 11/28/23 07:38 Intake & Output 11/27/23 11/28/23 11/28/23 18:59 06:59 18:59 Intake Total 3534.510 3070.782 Output Total 700 945 Balance 2834.510 2125.782 Weight 119.8 kg Intake: IV 1616 2229 .9 kvo 20 Lactated Ringers 1,000 ml 1560 1690 @ 130 mls/hr IV .Q7H42M [facility] Rx#:[id number] Pressure bag 36 39 Vancomycin 1,750 mg In 500 Sodium Chloride 0.9% 500 ml 500 ml @ 167 mls/hr IVPB Q12H [facility] Rx#: [id number] Intake, IV Titration 1606.510 543.782 Amount Lactated Ringers 1,000 ml 130 @ 130 mls/hr IV .Q7H42M [facility] Rx#:[id number] Midazolam HCl 50 mg In 77.25 Sodium Chloride 0.9% 40 ml @ 1 MG/HR 1 mls/hr IV .Q24H [facility] Rx#:[id number] Norepinephrine 32 mg In 30.071 Sodium Chloride 0.9% 218 ml @ 0.03 MCG/KG/MIN 1. 403 mls/hr IV .Q24H [facility] Rx#:[id number] Vancomycin 1,750 mg In 1000 Sodium Chloride 0.9% 500 ml 500 ml @ 167 mls/hr IVPB Q8H [facility] Rx#: [id number] fentaNYL (PF). 1,000 mcg 180.875 167.653 In Sodium Chloride 0.9% 80 ml @ 0.5 MCG/KG/HR 4. 99 mls/hr IV .Q20H3M [facility] Rx#:[id number] propofoL 1,000 mg In 188.314 376.129 Empty Bag 1 bag @ 15 MCG/ KG/MIN 8.981 mls/hr IV . Q11H9M [facility] Rx#:[id number] Tube Feeding 192 208 Other 120 90 Output: Chest Tube Drainage 210 320 Chest Tube 150 200 Chest Tube Right 60 120 Urine 490 625 Other: Voiding Method Indwelling Catheter Indwelling Catheter ABP, PAP, CO, CI - Last Documented Arterial Blood Pressure 87/42 - Exam CONSTITUTIONAL: Currently sedated on mechanical ventilation, laying in bed in the intensive care unit RESPIRATORY: Lungs sounds diminished bilaterally. Respirations even, nonlabored on mechanical ventilation, current settings assist-control mode, FiO2 60%, tidal volume 450, PEEP 5, respiratory rate 32. CARDIOVASCULAR: S1, S2 present. Regular rate and rhythm, sinus tach on telemetry. Palpable peripheral pulses bilaterally. Generalized trace edema present. No calf pain or tenderness noted. SCDs present. GASTROINTESTINAL: Abdomen soft, nontender, nondistended. Active bowel sounds present 4 quadrants. OG tube present, tube feeding infusing at 16 mL/h GENITOURINARY: Beth present draining clear, yellow urine. Output 1115 mL in the last 24 hours INTEGUMENTARY: Skin is warm and dry NEUROLOGIC: Sedated on mechanical ventilation INVASIVE LINES AND TUBES: Left/right pleural chest tubes present and connected to wall suction, intermittent air leaks present in both chest tubes. Left pleural chest tube with 200 mL purulent drainage overnight, 400 mL in the last 24 hours. Right pleural chest tube with 120 mL serosanguineous drainage overnight, 200 mL last 24 hours. - Allied health notes Allied health notes reviewed: nursing - Labs CBC & Chem 7: 11/28/23 04:45 11/28/23 04:45 Labs: Abnormal Lab Results - Last 24 Hours (Table) 11/27/23 11/28/23 11/28/23 Range/Units 05:01 04:45 04:45 WBC 23.1 H (3.8-10.6) k/uL RBC 2.55 L (3.80-5.40) m/uL Hgb 7.4 L (11.4-16.0) gm/dL Hct 23.2 L (34.0-46.0) % ABG pH (7.35-7.45) ABG pO2 (83-108) mmHg ABG HCO3 (21-25) mmol/L ABG Total CO2 (19-24) mmol/L Sodium 134 L (137-145) mmol/L Creatinine 0.39 L (0.52-1.04) mg/dL Hemoglobin A1c 6.1 H (<=6.0) % Calcium 6.6 L (8.4-10.2) mg/dL 11/28/23 Range/Units 05:46 WBC (3.8-10.6) k/uL RBC (3.80-5.40) m/uL Hgb (11.4-16.0) gm/dL Hct (34.0-46.0) % ABG pH 7.52 H (7.35-7.45) ABG pO2 73 L (83-108) mmHg ABG HCO3 30 H (21-25) mmol/L ABG Total CO2 31 H (19-24) mmol/L Sodium (137-145) mmol/L Creatinine (0.52-1.04) mg/dL Hemoglobin A1c (<=6.0) % Calcium (8.4-10.2) mg/dL Microbiology - Last 24 Hours (Table) 11/26/23 12:30 Blood Culture - Preliminary Blood 11/23/23 22:00 Blood Culture Gram Stain - Final Blood Blood Culture - Final Methicillin resist S. aureus 11/23/23 22:15 Blood Culture Gram Stain - Final Blood Blood Culture - Final Methicillin resist S. aureus Molecular ID - Imaging and Cardiology Chest x-ray: image reviewed Assessment and Plan Assessment: Acute hypoxic respiratory failure requiring mechanical ventilation Bilateral hydropneumothoraces, empyema, status post bilateral chest tube insertion Septic shock, requiring IV vasopressors Chest pain, shortness of breath present on admission secondary to above History of MS Obesity Migraines Seizures Fibromyalgia Hypertension, currently hypotensive on pressors Asthma Anxiety/depression/bipolar disorder Polysubstance abuse Plan: No surgical intervention planned, conservative management No lytics today due to air leak in both chest tubes Would like repeat chest CT to evaluate progression once stable on minimal to no pressors 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
--- NOTE | 2023-11-28 08:25 | XR ---
EXAMINATION TYPE: XR chest 1V portable DATE OF EXAM: 11/28/2023 4:30 AM CLINICAL INDICATION:Female, 43 years old with history of pneumothorax; [facility] COMPARISON: Chest radiograph from one day prior. TECHNIQUE: XR chest 1V portable Frontal view of the chest. FINDINGS: Lungs/Pleura: Right pneumothorax now demonstrates haziness suggesting pleural fluid up in the right l angel apex. There remains a small left pneumothorax. Airspace consolidations remain . Pulmonary vascularity: Unremarkable. Heart/mediastinum: Cardiomediastinal silhouette is unremarkable. Musculoskeletal: No acute osseous pathology. Other findings: None Lines/Tubes: Endotracheal tube with distal tip 4.2 cm above the alicia. Nasogastric tube with its distal tip and side-port projecting under the diaphragm. Left central venous catheter with distal tip at the cavoatrial junction. Bilateral thoracotomy tubes are present. IMPRESSION: 1. Stable exam bilateral thoracotomy tubes. There remains a left pneumothorax. Right sided suspected pleural effusion now covers the right lung apex where as previously described pleural line. 2. Endotracheal tube and nasogastric tube in appropriate position.
[2023-11-28] MEDS: CALCIUM GLUCONATE IN NACL 2 GM in SALINE 1 100ML.BAG IVPB ONE (09:36)
[2023-11-28] MEDS: VANCOMYCIN TROUGH DUE 1 EACH MISC MISCELLANE ONE (09:55)
[2023-11-28] MEDS ORDERED: Magnesium Replacement Protocol 1 EACH MISC MISCELLANE PRN (12:47)
[2023-11-28 12:53] LABS: Glucose,Whole Blood 107 mg/dL (70-110)
[2023-11-28] MEDS: MAGNESIUM SULFATE-D5W PMX 1 GM in DEXTROSE/WATER 1 100ML.BAG IVPB ONE (12:58)
--- NOTE | 2023-11-28 13:28 | P.PN ---
Subjective Progress Note Date: 11/28/23 Principal diagnosis: Acute hypoxic respiratory failure secondary to bilateral pn eumonia/empyema/hydropneumothorax This is a 43-year-old female patient who is currently incarcerated who presented from a local [place] [facility] facility with shortness of breath and chest pain. Apparently, the patient has been having the symptoms for the past 3 weeks. She stated that she was having right-sided lateral chest pain along with difficulty breathing. In the emergency, the patient was extremely short of breath, tachycardic and hypoxic. She was also having cough. She was running a fever of 101.4. She was tachycardic with a heart rate of 155. Blood pressure was still stable at that point. She was placed on 100% nonrebreather facemask. A quick chest x-ray was done and the chest x-ray was abnormal with evidence of bilateral pneumothoraces moderate size right and large left-sided pneumothorax. There was also small right-sided pleural effusion and moderate-sized left-sided pleural effusion. There was near complete collapse of the left lung with scattered areas of scattered lung along the pleura. There was also consolidation involving the right lower lobe and the right middle lobe. Based on those findings, the patient was given a CTA of the chest that showed no evidence of pneumothorax. Similar findings were noted with the patient was found to have bilateral pneumothoraces. Pleural effusions were again noted large on the left and moderate-sized on the right. No evidence of any filling defects. At that point, a left-sided chest tube was inserted and copious amount of purulent material was drained from the left lung a total of 800 cc of pus and has already drained from the left lung. The patient was moved to the intensive care unit. She was quite short of breath. She was initially on Airvo system with an FiO2 of 90% with a 60 L flow. She became more short of breath and hemodynamically unstable and hypotensive. At that point, the decision was to intubate the patient and placed on mechanical ventilation. Postintubation, the patient developed peak pressuring. There was worsening in the air leak in the left lung chest tube. At the same time, the patient became unstable and became progressively more hypotensive. Pressors were initiated and the patient is c urrently on norepinephrine running at 0.3 mcg/kg/min. Repeat chest x-ray was done and it showed worsening of the right-sided pneumothorax. I attended on this patient and immediately inserted triple-lumen catheter for vascular access and hemodynamic support. Resuscitation was continued. At the same time, I inserted a right-sided chest tube and another 400 cc of purulent material was aspirated from the right lung. Subsequent chest x-ray showed reexpansion of the right lung without any evidence of residual pneumothorax. Left lung is extensively consolidated and there is a loculated pneumothorax in the left posterior lateral aspect. At this point in time, the patient is intubated on mechanical ventilator. She is on an assist-control mode at rate of 30, tidal volume of 400, FiO2 is at 100% with a PEEP of 5. She is on norepinephrine. This is being weaned off. She is sedated with propofol which is running at 70 mcg/kg/min. She is also on normal saline at rate of 130 cc an hour. The patient is adequately sedated. She was given also a dose of Nimbex during those procedures. The white cell count is at 23.8 with a hemoglobin of 10.3 and a platelet count of 419. The most recent blood gas showed a pH of 7.32 and a pCO2 of 50 and pO2 of 65 and this was done prior to the insertion of the right-sided chest tube. The sodium is at 129 with a potassium level of 3.9 with a bicarb of 23 and a BUN of 44 with a creatinine of 0.9. Lactic acid level initially was at 2.8 and currently down to 1.5. LFTs are mildly elevated with an AST of 69, ALT of 64, troponins are negative and the proBNP level is within normal limits. The viral screen was also negative. Blood cultures were sent. The patient was started on a combination of IV cefepime, vancomycin and Zithromax. Based on her past medical history, this patient has history of multiple sclerosis, she is morbidly obese, she has history of migraine seizure disorder and fibromyalgia and hypertension. She also has history of anxiety and depression. She has history of polysubstance abuse which includes heroin heroin, cocaine, marijuana and marijuana use. She also does prescription pills. Her last hospital admission was back in November 2022 and at that time the patient was treated for exacerbation of her multiple sclerosis. Patient was evaluated this morning, patient is hemodynamically unstable, still requiring norepinephrine at 0.08 mcg/kg/min she is also requiring vasopressin at 0.03 units/h. Patient is receiving LR at 150 cc/h. Chest x-ray continues to show hydropneumothorax, both chest tubes are draining purulent and serosanguineous material the left-sided chest tube is draining pus, and the right-sided chest tube is draining serosanguineous liquid. Right sided drained 400 cc since last night and the left side drained 800 cc since last night. Clearly the patient has empyema she may or may not require decortication or thrombolytic instillation into the pleural space. Patient continues to have air leak in both chest tubes. She is on assist-control rate of 30 tidal volume 400 FiO2 down to 50% PEEP of 5 last ABG showed a pO2 of 147 pCO2 42 pH of 7.33. Thoracic surgery was consulted and infectious disease was also consulted. Patient is receiving presently vancomycin and cefepime, she has allergies to penicillin hence Zosyn was discontinued. Her urine output is reasonable, patient received 3 L of fluid boluses and she is on IV fluid at 130 cc/h. Patient is critically ill. Continues to have leukocytosis with WBC count of 23.7 hemoglobin 9.8. Basic metabolic profile is normal. Urine test is positive for opiates Patient was reevaluated today on 11/25/2023, remains in the ICU intubated and mechanically ventilated. Patient is on assist-control of 3 0 tidal volume 400 FiO2 50% PEEP of 5 ABG showed a pO2 of 102 pCO2 41 pH of 7.48, hence no changes were made in present vent settings. Patient remains on antibiotics in the form of vancomycin and cefepime, we are treating positive blood cultures for MRSA and positive left-sided pleural effusion which is positive for MRSA. Patient is receiving fentanyl at 2 mcg/kg/h propofol at 75 mcg/kg/min Versed at 2 mg/h norepinephrine at 0.05 mcg/kg/min. IV fluid is running at 130 cc/h in the form of lactated Ringer's. Urine output has been excellent over 50 cc an hour. Chest x-ray continues to show evidence of bilateral pneumothoraces, there is a loculated left-sided pneumothorax and there is a apical right-sided pneumothorax. The drainage from the left-sided chest tube is noted to be purulent drainage from the right-sided chest tube is noted to be serosanguineous. Patient did receive lytic treatment to the loculated effusion on the right side, but no lytics applied to the left side. Patient is having air leak in the left-sided chest tube, but no air leak noted in the right-sided chest tube although the patient does have a small apical pneumothorax noted. WBC count today is 12.6 hemoglobin 8.1, basic metabolic profile is normal renal profile is normal. Patient evaluated today on 11/26/2023, remains in the ICU intubated and mechanically ventilated. Remains on assist-control rate of 30 tidal volume 400 FiO2 75% PEEP of 5 apparently the patient desaturated yesterday, and she seems to be developing more air leak from the bilateral pneumothoraces/chest tubes. Today I increased her tidal volume up to 450 increase the rate up to 32 PEEP the same cut down FiO2 down to 60%. ABG showed a pO2 of 93 pCO2 47 pH of 7.47. Patient remains on antibiotics including vancomycin for her MRSA in the sputum and in the blood as well as in the pleural fluid. Patient remains on fentanyl 1.5 mcg/kg/h LR at 130 cc/h Versed 3 mg/h norepinephrine 0.18 mcg/kg/min propofol at 50 mcg/kg/min. Chest x-ray continues to show bilateral pneumothoraces right and left, the left one seems to be loculated and the right one seems to be apical there is at least 50 cc of volume loss with each tidal volume. Hence tidal volume was increased from 400 to 450. Her overall clinical condition remains very critical, patient has very poor prognosis, nonetheless she is on appropriate antibiotics, bronchodilators, and continues to have bilate ral chest tubes. WBC count today is 25.2 hemoglobin 9.3 basic metabolic profile is normal renal profile is normal Reevaluate today on11/27/23, remains in the ICU, intubated and mechanically ventilated, on assist-control rate of 42 tidal volume 450 FiO2 60% PEEP of 5 ABG showed a pO2 of 72 pCO2 43 pH of 7.49. Patient remains fully sedated she is on fentanyl 1.5 mcg/kg/min she is also on Versed 3 mg/h. Propofol at 50 mcg/kg/min. Patient remains hemodynamically unstable requiring norepinephrine at 0.11 mcg/kg/min she is on vital HP at 16 mL/h. She is also on LR at 150 cc/h. Today I did not make any changes in her ventilator settings. Her chest x-ray is basically about the same continues to show right-sided pneumothorax but I do not see an air leak today on the right side but she does have an air leak on the left side and continues to have significant purulent drainage from the chest tube on the left side. 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 Not much of a change overnight, patient remains critically ill. Continues to have leukocytosis with WBC count of 28.2 hemoglobin 8.5 basic metabolic profile is normal and renal profile is normal Reevaluate today on 11/28/2023, remains in the ICU intubated and mechanically ventilated. Patient is on assist-control rate of 52 tidal volume 450 FiO2 60% PEEP of 5 ABG showed a pO2 of 73 pCO2 37 pH of 7.52 hence FiO2 was cut down to 55% and rate to cut down to 28. Patient continues to have bilateral chest tubes , the left-sided chest tube has ongoing continuous leak, right-sided chest tube has intermittent airleak. However the patient is maintaining her adequate tidal volumes which are about 450. Patient remains on propofol at 50 mcg/kg/min Versed 3 mg/h Fentanyl 1.5 mcg/kg/h patient is also receiving norepinephrine at 0.08 mcg/kg/min. Her IV fluid which is LR Down to 100 cc/h. She is on vital HP patient had a Tmax of 102.9 yesterday, cultures of blood and pleural effusion are positive for MRSA, patient remains on vancomycin. If the patient continues to have positive blood cultures in the next couple of days, may have to consider OSIRIS. The cultures from the are pending. Chest x-ray continues to show significant hydropneumothorax on the left side, and she has mostly hydrothorax on the right side. I could not appreciate a pneumothorax on the right side labs today showed leukocytosis with WBC of 23.1 hemoglobin 7.4, basic metabolic profile is normal renal profile is normal Objective - Vital Signs Vital signs: Vital Signs Temp 99.1 F 11/28/23 12:30 Pulse 93 11/28/23 12:30 Resp 28 H 11/28/23 12:30 BP 119/74 11/28/23 12:00 Pulse Ox 98 11/28/23 12:30 FiO2 55 11/28/23 12:00 Intake & Output 11/27/23 11/28/23 11/28/23 18:59 06:59 18:59 Intake Total 3534.510 3070.782 1389.156 Output Total 700 945 445 Balance 2834.510 2125.782 944.156 Weight 119.8 kg 119.8 kg Intake: IV 1616 2229 472 .9 kvo 20 Lactated Ringers 1,000 ml 1560 1690 460 @ 100 mls/hr IV .Q10H [facility] Rx#:[id number] Pressure bag 36 39 12 Vancomycin 1,750 mg In 500 Sodium Chloride 0.9% 500 ml 500 ml @ 167 mls/hr IVPB Q12H [facility] Rx#: [id number] Intake, IV Titration 1606.510 543.782 733.156 Amount Calcium Gluconate in NaCl 100 2 gm In Saline 1 100ml. bag @ 100 mls/hr IVPB ONCE ONE Rx#:[id number] Lactated Ringers 1,000 ml 130 @ 100 mls/hr IV .Q10H [facility] Rx#:[id number] Midazolam HCl 50 mg In 77.25 42.7 Sodium Chloride 0.9% 40 ml @ 1 MG/HR 1 mls/hr IV .Q24H [facility] Rx#:[id number] Norepinephrine 32 mg In 30.071 58.659 Sodium Chloride 0.9% 218 ml @ 0.03 MCG/KG/MIN 1. 403 mls/hr IV .Q24H [facility] Rx#:[id number] Vancomycin 1,750 mg In 1000 334 Sodium Chloride 0.9% 500 ml 500 ml @ 167 mls/hr IVPB Q8H [facility] Rx#: [id number] fentaNYL (PF). 1,000 mcg 180.875 167.653 97.797 In Sodium Chloride 0.9% 80 ml @ 0.5 MCG/KG/HR 4. 99 mls/hr IV .Q20H3M [facility] Rx#:[id number] propofoL 1,000 mg In 188.314 376.129 100 Empty Bag 1 bag @ 15 MCG/ KG/MIN 8.981 mls/hr IV . Q11H9M [facility] Rx#:[id number] Tube Feeding 192 208 64 Other 120 90 120 Output: Chest Tube Drainage 210 320 20 Chest Tube 150 200 20 Chest Tube Right 60 120 0 Urine 490 625 425 Other: Voiding Method Indwelling Catheter Indwelling Catheter ABP, PAP, CO, CI - Last Documented Arterial Blood Pressure 128/64 - Exam General: Revealed 43-year-old female intubated, obese, stated, not in distress Skin: Skin is warm and dry and no rashes or lesions are noted. Eye: Pupils are equal, round and reactive to light, extra-ocular movements are intact; there is normal conjunctiva bilaterally. Ears, nose, mouth and throat: There are moist mucous membranes and no oral lesions. Neck: The neck is supple, there is no tenderness or JVD. Cardiovascular: There is a regular rate and rhythm. No murmur, rub or gallop is appreciated. Respiratory: Rhonchi persist bilaterally, chest tubes noted bilaterally with air leaks in both Gastrointestinal: Obese, soft, nontender, no megaly no rebound. Back: There is no tenderness to palpation in the midline. There is no obvious deformity. Musculoskeletal: No deformities noted Neurological: Not assessed patient is sedated, on propofol, Versed, and fe ntanyl. Psychiatric: Could not assess mostly because of sedation. - Labs CBC & Chem 7: 11/28/23 04:45 11/28/23 04:45 Labs: Abnormal Lab Results - Last 24 Hours (Table) 11/28/23 11/28/23 11/28/23 Range/Units 04:45 04:45 05:46 WBC 23.1 H (3.8-10.6) k/uL RBC 2.55 L (3.80-5.40) m/uL Hgb 7.4 L (11.4-16.0) gm/dL Hct 23.2 L (34.0-46.0) % ABG pH 7.52 H (7.35-7.45) ABG pO2 73 L (83-108) mmHg ABG HCO3 30 H (21-25) mmol/L ABG Total CO2 31 H (19-24) mmol/L Sodium 134 L (137-145) mmol/L Creatinine 0.39 L (0.52-1.04) mg/dL Calcium 6.6 L (8.4-10.2) mg/dL Microbiology - Last 24 Hours (Table) 11/26/23 12:30 Blood Culture - Preliminary Blood 11/23/23 22:00 Blood Culture Gram Stain - Final Blood Blood Culture - Final Methicillin resist S. aureus 11/23/23 22:15 Blood Culture Gram Stain - Final Blood Blood Culture - Final Methicillin resist S. aureus Molecular ID Assessment and Plan Assessment: Impression:Acute hypoxic respiratory failure Acute bilateral pneumonia with empyema/hydropneumothorax, status post chest tube placement on both side Acute bacteremia secondary to MRSA secondary to empyema/pneumonia Acute sepsis and septic shock secondary to above Acute leukocytosis, improving History of polysubstance abuse History of MS History of depression and anxiety History of interstitial cystitis and UTI Fibromyalgia Chronic pain syndrome History of seizure disorder Degenerative joint disease Benign essential hypertension Morbid obesity Recommendation: Continue ventilatory support, patient is not ready for weaning considering her ABG and considering her abnormal chest x-ray and the ongoing leak patient is still on relatively high FiO2 at 55% Continue bilateral chest tubes to suction and continue to monitor drainage and airleak. Continue vancomycin, repeat blood cultures for Endocarditis was ruled out. He is on transthoracic echocardiogram, Continue pressors and hemodynamic support, norepinephrine is being titrated today she is on 0.08 mcg/kg/min Continue nutritional support/enteral feeding Continue DVT prophylaxis and continue GI prophylaxis Remains critically ill Critical care time is over 30-minute Will continue to follow. Time with Patient: Greater than 30
--- NOTE | 2023-11-28 14:49 | P.PN ---
Subjective Progress Note Date: 11/28/23 patient 43-year-old lady who is currently incarcerated and was brought to the ER for chest pain and shortness of breath. Most of the history is been taken from the electronic medical record according to which patient has been having shortness of breath for the last few weeks. Patient also been complaining of cough and chest pain. Patient also has having fevers at the facility. Because of the symptoms, patient was brought to the ER. Where patient was found to be extremely tachycardic and hypoxic, patient had to be placed on 100% nonrebreather mask. Initial chest x-ray done showed bilateral pneumothoraces with moderate size right large left-sided pneumothorax. Initial lab work done in the ER showed WBC 23.8, hemoglobin 9.3, platelet count 490, INR 1.3, D-dimer 4.66, sodium 129, potassium 3.9, BUN 44, creatinine 0.96, glucose 121, lactate 2.8, AST 16, ALT 64 Influenza A not detected Influenza B not detected RSV not detected COVID-19 not detected CTA chest done in the ER showed bilateral hydropneumothoraces, there is a small to moderate right and large left pneumothorax small right and moderate left pleural effusions. Areas of tethering of the lung attached to the pleura most pronounced anteriorly and superiorly correlate for superimposed infection. Patient had a left-sided chest tube placed in the ER and was transferred to ICU where she was later intubated. Labs done this morning showed WBC 12.6, hemoglobin 8.1, platelet count 380, sodium 141, potassium 3.5, BUN 12, c reatinine 0.60. 2D echo done showed LVEF of 65 to 70%, no obvious regional wall motion abnormalities. Blood cultures growing MRSA Patient admitted to ICU under internal medicine service 11/24. Patient seen and examined. Continues to be intubated, has bilateral chest tubes. Patient had lytics instilled in the right chest tube with 650 mL output 11/25. Patient seen and examined in the ICU. Continues to be intubated. Total output from right chest tube is close to 134 0 mL after instilling the lytics. Continues to be on propofol, fentanyl, Versed. Patient also on IV Levophed. 11/26. Patient seen and examined. Blood work done this morning showed WBC 28.2, hemoglobin 8.5, platelet count 336, sodium 134, potassium 3.6, BUN 12, creatinine 0.48, calcium 6.7. Continues to be on IV antibiotics and pressors. 11/27. Patient seen and examined. Vent settings were adjusted by ICU, FiO2 was decreased. Levophed will being weaned down REVIEW OF SYSTEMS: Cannot be obtained as patient currently intubated and sedated PHYSICAL EXAMINATION: GENERAL: The patient is intubated and sedated, not in any acute distress. Well developed, well nourished. HEENT: Pupils are round and equally reacting to light. EOMI. No scleral icterus. No conjunctival pallor. Normocephalic, atraumatic. No pharyngeal erythema. No thyromegaly. CARDIOVASCULAR: S1 and S2 present. No murmurs, rubs, or gallops. PULMONARY: Tachypneic, diminished breath sound the bases bilaterally, bilateral chest tube seen ABDOMEN: Soft, nontender, nondistended, normoactive bowel sounds. No palpable organomegaly. MUSCULOSKELETAL: No joint swelling or deformity. EXTREMITIES: No cyanosis, clubbing, or pedal edema. NEUROLOGICAL: Currently intubated and sedated SKIN: No rashes. Assessment and plan Acute hypoxic respiratory failure Acute bilateral pneumonia complicated by bilateral pneumothoraces. Acute bilateral empyema, post bilateral chest tube insertion with purulent material draining from both lungs. MRSA bacteremia Acute septic shock, Acute leukocytosis secondary to above Morbid obesity Polysubstance abuse Hyponatremia Elevated LFTs Lactic acidosis Monitor vital signs Monitor CBC Monitor CMP Continue telemetry monitoring Continue vent management per ICU Aggressive bronchopulmonary hygiene Blood cultures growing MRSA, repeat blood cultures till clearence Sputum cultures ordered Continue IV cefepime, vancomycin Continue Levophed, wean down pressors Continue chest tube management per CT surgery, lytics instilled into the right chest tube on 11/24, no plan for surgical intervention Critical care following ID following Patient's very poor prognosis per multiple specialities Labs and medication were reviewed.. Continue same treatment. Continue with symptomatic treatment. Resume home medication. Monitor labs and vitals. DVT and GI prophylaxis. Further recommendations as per clinical course of the patient Dictation was produced using [employer] dictation software. please excuse any g rammatical, word or spelling errors. Objective - Vital Signs Vital signs: Vital Signs Temp 99.1 F 11/28/23 12:30 Pulse 89 04/19/24 14:00 Resp 28 H 11/28/23 14:00 BP 114/66 11/28/23 14:00 Pulse Ox 97 11/28/23 14:00 FiO2 55 11/28/23 12:00 Intake & Output 11/27/23 11/28/23 11/28/23 18:59 06:59 18:59 Intake Total 3534.510 3070.782 2283.224 Output Total 046 416 5796 Balance 2834.510 2125.782 1098.224 Weight 119.8 kg 119.8 kg Intake: IV 1616 2229 678 .9 kvo 20 Lactated Ringers 1,000 ml 1560 1690 660 @ 100 mls/hr IV .Q10H [facility] Rx#:[id number] Pressure bag 36 39 18 Vancomycin 1,750 mg In 500 Sodium Chloride 0.9% 500 ml 500 ml @ 167 mls/hr IVPB Q12H [facility] Rx#: [id number] Intake, IV Titration 1606.510 386.694 2230.224 Amount Calcium Gluconate in NaCl 100 2 gm In Saline 1 100ml. bag @ 100 mls/hr IVPB ONCE ONE Rx#:[id number] Lactated Ringers 1,000 ml 130 @ 100 mls/hr IV .Q10H [facility] Rx#:[id number] Magnesium Sulfate-D5w Pmx 100 1 gm In Dextrose/Water 1 100ml.bag @ 100 mls/hr IVPB ONCE ONE Rx#: [id number] Midazolam HCl 50 mg In 77.25 42.7 Sodium Chloride 0.9% 40 ml @ 1 MG/HR 1 mls/hr IV .Q24H [facility] Rx#:[id number] Norepinephrine 32 mg In 30.071 74.937 Sodium Chloride 0.9% 218 ml @ 0.03 MCG/KG/MIN 1. 403 mls/hr IV .Q24H [facility] Rx#:[id number] Vancomycin 1,750 mg In 1000 668 Sodium Chloride 0.9% 500 ml 500 ml @ 167 mls/hr IVPB Q8H [facility] Rx#: [id number] fentaNYL (PF). 1,000 mcg 180.875 167.653 97.797 In Sodium Chloride 0.9% 80 ml @ 0.5 MCG/KG/HR 4. 99 mls/hr IV .Q20H3M [facility] Rx#:[id number] propofoL 1,000 mg In 188.314 376.129 199.79 Empty Bag 1 bag @ 15 MCG/ KG/MIN 8.981 mls/hr IV . Q11H9M [facility] Rx#:[id number] Tube Feeding 192 208 142 Other 120 90 180 Output: Chest Tube Drainage 210 320 60 Chest Tube 150 200 60 Chest Tube Right 60 120 0 Urine 323 472 9817 Other: Voiding Method Indwelling Catheter Indwelling Catheter ABP, PAP, CO, CI - Last Documented Arterial Blood Pressure 108/59 - Labs CBC & Chem 7: 11/28/23 04:45 11/28/23 13:37 Labs: Abnormal Lab Results - Last 24 Hours (Table) 11/28/23 11/28/23 11/28/23 Range/Units 04:45 04:45 05:46 WBC 23.1 H (3.8-10.6) k/uL RBC 2.55 L (3.80-5.40) m/uL Hgb 7.4 L (11.4-16.0) gm/dL Hct 23.2 L (34.0-46.0) % ABG pH 7.52 H (7.35-7.45) ABG pO2 73 L (83-108) mmHg ABG HCO3 30 H (21-25) mmol/L ABG Total CO2 31 H (19-24) mmol/L Sodium 134 L (137-145) mmol/L Creatinine 0.39 L (0.52-1.04) mg/dL Calcium 6.6 L (8.4-10.2) mg/dL Microbiology - Last 24 Hours (Table) 11/26/23 12:30 Blood Culture - Preliminary Blood 11/23/23 22:00 Blood Culture Gram Stain - Final Blood Blood Culture - Final Methicillin resist S. aureus 11/23/23 22:15 Blood Culture Gram Stain - Final Blood Blood Culture - Final Methicillin resist S. aureus Molecular ID
--- NOTE | 2023-11-28 14:53 | P.PN ---
Subjective Progress Note Date: 11/28/23 Principal diagnosis: Reason for follow-up is sepsis MRSA pneumonia bacteremia and empyema Patient is a 43-year-old female past medical history significant for hypertension fibromyalgia asthma reflux seizure disorder currently incarcerated and presented from the local alf for evaluation of increasing shortness of breath and chest pain, patient did have evidence of bilateral hydropneumothorax requiring bilateral chest tube placement and did have a positive blood culture with MRSA. On today's visit that is 11/28/2023,the patient did spike a fever of 102.9 F this morning, temperature is down to 99.1 this afternoon patient is requiring less pressor support per the nursing staff remains to be intubated on the vent FiO2 is down to 55% no significant purulent secretions through the ET or any diarrhea reported by the nursing staff patient white count is down to 23.1, Creatinine 0.39, blood culture from 417 so far negative Vanco trough is still low at 13.2 Objective - Vital Signs Vital signs: Vital Signs Temp 99.1 F 11/28/23 12:30 Pulse 89 11/28/23 14:00 Resp 28 H 11/28/23 14:00 BP 114/66 11/28/23 14:00 Pulse Ox 97 11/28/23 14:00 FiO2 55 11/28/23 12:00 Intake & Output 11/27/23 11/28/23 11/28/23 18:59 06:59 18:59 Intake Total 3534.510 3070.782 2283.224 Output Total 920 545 6245 Balance 2834.510 2125.782 1098.224 Weight 119.8 kg 119.8 kg Intake: IV 1616 2229 678 .9 kvo 20 Lactated Ringers 1,000 ml 1560 1690 660 @ 100 mls/hr IV .Q10H [facility] Rx#:[id number] Pressure bag 36 39 18 Vancomycin 1,750 mg In 500 Sodium Chloride 0.9% 500 ml 500 ml @ 167 mls/hr IVPB Q12H [facility] Rx#: [id number] Intake, IV Titration 1606.510 195.239 3789.224 Amount Calcium Gluconate in NaCl 100 2 gm In Saline 1 100ml. bag @ 100 mls/hr IVPB ONCE ONE Rx#:[id number] Lactated Ringers 1,000 ml 130 @ 100 mls/hr IV .Q10H [facility] Rx#:[id number] Magnesium Sulfate-D5w Pmx 100 1 gm In Dextrose/Water 1 100ml.bag @ 100 mls/hr IVPB ONCE ONE Rx#: [id number] Midazolam HCl 50 mg In 77.25 42.7 Sodium Chloride 0.9% 40 ml @ 1 MG/HR 1 mls/hr IV .Q24H [facility] Rx#:[id number] Norepinephrine 32 mg In 30.071 74.937 Sodium Chloride 0.9% 218 ml @ 0.03 MCG/KG/MIN 1. 403 mls/hr IV .Q24H [facility] Rx#:[id number] Vancomycin 1,750 mg In 1000 668 Sodium Chloride 0.9% 500 ml 500 ml @ 167 mls/hr IVPB Q8H [facility] Rx#: [id number] fentaNYL (PF). 1,000 mcg 180.875 167.653 97.797 In Sodium Chloride 0.9% 80 ml @ 0.5 MCG/KG/HR 4. 99 mls/hr IV .Q20H3M [facility] Rx#:[id number] propofoL 1,000 mg In 188.314 376.129 199.79 Empty Bag 1 bag @ 15 MCG/ KG/MIN 8.981 mls/hr IV . Q11H9M [facility] Rx#:[id number] Tube Feeding 192 208 142 Other 120 90 180 Output: Chest Tube Drainage 210 320 60 Chest Tube 150 200 60 Chest Tube Right 60 120 0 Urine 298 962 7931 Other: Voiding Method Indwelling Catheter Indwelling Catheter ABP, PAP, CO, CI - Last Documented Arterial Blood Pressure 108/59 - Exam GENERAL DESCRIPTION: Middle-aged female intubated on the vent RESPIRATORY SYSTEM: Unlabored breathing , coarse breath sounds bilaterally HEART: S1 S2 regular rate and rhythm , ABDOMEN: Soft , no tenderness EXTREMITIES: No edema feet - Labs CBC & Chem 7: 11/28/23 04:45 11/28/23 13:37 Labs: Abnormal Lab Results - Last 24 Hours (Table) 11/28/23 11/28/23 11/28/23 Range/Units 04:45 04:45 05:46 WBC 23.1 H (3.8-10.6) k/uL RBC 2.55 L (3.80-5.40) m/uL Hgb 7.4 L (11.4-16.0) gm/dL Hct 23.2 L (34.0-46.0) % ABG pH 7.52 H (7.35-7.45) ABG pO2 73 L (83-108) mmHg ABG HCO3 30 H (21-25) mmol/L ABG Total CO2 31 H (19-24) mmol/L Sodium 134 L (137-145) mmol/L Creatinine 0.39 L (0.52-1.04) mg/dL Calcium 6.6 L (8.4-10.2) mg/dL Microbiology - Last 24 Hours (Table) 11/26/23 12:30 Blood Culture - Preliminary Blood 11/23/23 22:00 Blood Culture Gram Stain - Final Blood Blood Culture - Final Methicillin resist S. aureus 11/23/23 22:15 Blood Culture Gram Stain - Final Blood Blood Culture - Final Methicillin resist S. aureus Molecular ID Assessment and Plan (1) Empyema Current Visit: Yes Status: Acute Code(s): J86.9 - PYOTHORAX WITHOUT FISTULA SNOMED Code(s): 070359009 (2) MRSA bacteremia Current Visit: Yes Status: Acute Code(s): R78.81 - BACTEREMIA; B95.62 - METHICILLIN RESIS STAPH INFCT CAUSING DISEASES [facility] SNOMED Code(s): 55220659381455336 (3) Pneumonia Current Visit: Yes Status: Acute Code(s): J18.9 - PNEUMONIA, UNSPECIFIED ORGANISM SNOMED Code(s): 684082084 (4) Pneumothorax Current Visit: Yes Status: Acute Code(s): J93.9 - PNEUMOTHORAX, UNSPECIFIED SNOMED Code(s): 50233944 Plan: 1patient presented to hospital with sepsis in this patient who did have a fever tachycardia elevated white count source is pulmonary in this patient noted evidence of bilateral pneumothorax and effusion with question of complicated pneumonia/empyema keeping in mind the patient is from local care home will need to cover for resistant gram-positive such as MRSA and gram-negative pathogen 2-patient blood sputum and pleural fluid culture with MRSA 3-blood cultures has been repeated document clearance of bacteremia, blood culture from 11/26/2023 so far negative 4-patient still running a fever though white count is trending down vancomycin trough is still on the low side discussed again with the pharmacy to adjust the dose up to keep the trough between 15 and 20 and will monitor clinical course closely Dictation was produced using [employer] dictation software. please excuse any grammatical, word or spelling errors. Time with Patient: Less than 30
[2023-11-28] MEDS: VANCOMYCIN 2,000 MG in SODIUM CHLORIDE 0.9% 500 ML 500 ML IVPB SCH (17:39)
[2023-11-28 18:18] LABS: Glucose,Whole Blood 111 mg/dL (70-110)
[2023-11-28 23:39] LABS: Glucose,Whole Blood 100 mg/dL (70-110)
[2023-11-29 02:49] LABS: African American GFR (CKD) >90 (>60 ml/min/1.73 sqM); Anion Gap 3 mmol/L; Blood Urea Nitrogen 10 mg/dL (7-17); Calcium 6.9 mg/dL (8.4-10.2); Carbon Dioxide 25 mmol/L (22-30); Chloride 106 mmol/L (98-107); Glucose 104 mg/dL (74-99); Non-African American GFR(CKD) >90 (>60 ml/min/1.73 sqM); Potassium 3.9 mmol/L (3.5-5.1); Sodium 134 mmol/L (137-145)
[2023-11-29 03:14] LABS: HCT 22.1 % (34.0-46.0); HGB 7.2 gm/dL (11.4-16.0); MCH 29.7 pg (25.0-35.0); MCHC 32.7 g/dL (31.0-37.0); Mean Platelet Volume 9.1; Platelet Count 271 k/uL (150-450); RBC 2.43 m/uL (3.80-5.40); RDW 13.7 % (11.5-15.5); WBC 24.3 k/uL (3.8-10.6)
[2023-11-29] MEDS: POTASSIUM BICARBONATE/CIT AC 20 MEQ TABLET.EFF NG-TUBE SCH (04:32)
[2023-11-29 05:06] LABS: ABG Base Excess 5.4 mmol/L; ABG HCO3 28 mmol/L (21-25); ABG Oxygen Saturation 98.4 % (94-97); ABG PCO2 34 mmHg (35-45); ABG PH 7.53 (7.35-7.45); ABG PO2 94 mmHg (83-108); ABG TCO2 29 mmol/L (19-24)
[2023-11-29 05:09] LABS: Allen Test Performed? No
[2023-11-29 05:49] LABS: HCT 21.1 % (34.0-46.0); MCH 29.6 pg (25.0-35.0); MCHC 32.2 g/dL (31.0-37.0); Mean Platelet Volume 8.6; Platelet Count 261 k/uL (150-450); RDW 13.6 % (11.5-15.5); WBC 24.7 k/uL (3.8-10.6)
[2023-11-29 05:52] LABS: HGB 6.8 gm/dL (11.4-16.0)
[2023-11-29 06:36] LABS: Glucose,Whole Blood 98 mg/dL (70-110)
--- NOTE | 2023-11-29 08:41 | XR ---
EXAMINATION TYPE: XR chest 1V portable DATE OF EXAM: 11/29/2023 Comparison: 11/28/2023 Clinical History: 43-year-old female pneumothorax Findings: ET tube is satisfactory. NG tube at the GE junction level. Bilateral chest tubes are noted. Suspect m oderate bilateral pleural effusions, background interstitial opacities, and prominent mid and lower l angel opacities. There appears to be loculated air collection lateral left mid to lower lung estimated to measure 9.7 cm. Versus 8.9 cm, previously. Left subclavian CVC tip at the expected mid SVC. Impression: Bilateral chest tubes in place. Pleural air collection lateral left mid to lower lung redemonstrated estimated 9.7 cm versus 8.9 cm, previously. Moderate effusions, pulmonary vascular congestion, and ex tensive mid and lower lung opacities persist.
[2023-11-29] MEDS: PANTOPRAZOLE 40 MG/10 ML VIAL IV SCH (08:43)
--- NOTE | 2023-11-29 12:02 | P.PN ---
Subjective Progress Note Date: 11/29/23 Principal diagnosis: Acute hypoxic respiratory failure secondary to bilateral pn eumonia/empyema/hydropneumothorax This is a 43-year-old female patient who is currently incarcerated who presented from a local [place] [facility] facility with shortness of breath and chest pain. Apparently, the patient has been having the symptoms for the past 3 weeks. She stated that she was having right-sided lateral chest pain along with difficulty breathing. In the emergency, the patient was extremely short of breath, tachycardic and hypoxic. She was also having cough. She was running a fever of 101.4. She was tachycardic with a heart rate of 155. Blood pressure was still stable at that point. She was placed on 100% nonrebreather facemask. A quick chest x-ray was done and the chest x-ray was abnormal with evidence of bilateral pneumothoraces moderate size right and large left-sided pneumothorax. There was also small right-sided pleural effusion and moderate-sized left-sided pleural effusion. There was near complete collapse of the left lung with scattered areas of scattered lung along the pleura. There was also consolidation involving the right lower lobe and the right middle lobe. Based on those findings, the patient was given a CTA of the chest that showed no evidence of pneumothorax. Similar findings were noted with the patient was found to have bilateral pneumothoraces. Pleural effusions were again noted large on the left and moderate-sized on the right. No evidence of any filling defects. At that point, a left-sided chest tube was inserted and copious amount of purulent material was drained from the left lung a total of 800 cc of pus and has already drained from the left lung. The patient was moved to the intensive care unit. She was quite short of breath. She was initially on Airvo system with an FiO2 of 90% with a 60 L flow. She became more short of breath and hemodynamically unstable and hypotensive. At that point, the decision was to intubate the patient and placed on mechanical ventilation. Postintubation, the patient developed peak pressuring. There was worsening in the air leak in the left lung chest tube. At the same time, the patient became unstable and became progressively more hypotensive. Pressors were initiated and the patient is c urrently on norepinephrine running at 0.3 mcg/kg/min. Repeat chest x-ray was done and it showed worsening of the right-sided pneumothorax. I attended on this patient and immediately inserted triple-lumen catheter for vascular access and hemodynamic support. Resuscitation was continued. At the same time, I inserted a right-sided chest tube and another 400 cc of purulent material was aspirated from the right lung. Subsequent chest x-ray showed reexpansion of the right lung without any evidence of residual pneumothorax. Left lung is extensively consolidated and there is a loculated pneumothorax in the left posterior lateral aspect. At this point in time, the patient is intubated on mechanical ventilator. She is on an assist-control mode at rate of 30, tidal volume of 400, FiO2 is at 100% with a PEEP of 5. She is on norepinephrine. This is being weaned off. She is sedated with propofol which is running at 70 mcg/kg/min. She is also on normal saline at rate of 130 cc an hour. The patient is adequately sedated. She was given also a dose of Nimbex during those procedures. The white cell count is at 23.8 with a hemoglobin of 10.3 and a platelet count of 419. The most recent blood gas showed a pH of 7.32 and a pCO2 of 50 and pO2 of 65 and this was done prior to the insertion of the right-sided chest tube. The sodium is at 129 with a potassium level of 3.9 with a bicarb of 23 and a BUN of 44 with a creatinine of 0.9. Lactic acid level initially was at 2.8 and currently down to 1.5. LFTs are mildly elevated with an AST of 69, ALT of 64, troponins are negative and the proBNP level is within normal limits. The viral screen was also negative. Blood cultures were sent. The patient was started on a combination of IV cefepime, vancomycin and Zithromax. Based on her past medical history, this patient has history of multiple sclerosis, she is morbidly obese, she has history of migraine seizure disorder and fibromyalgia and hypertension. She also has history of anxiety and depression. She has history of polysubstance abuse which includes heroin heroin, cocaine, marijuana and marijuana use. She also does prescription pills. Her last hospital admission was back in November 2022 and at that time the patient was treated for exacerbation of her multiple sclerosis. Patient was evaluated this morning, patient is hemodynamically unstable, still requiring norepinephrine at 0.08 mcg/kg/min she is also requiring vasopressin at 0.03 units/h. Patient is receiving LR at 150 cc/h. Chest x-ray continues to show hydropneumothorax, both chest tubes are draining purulent and serosanguineous material the left-sided chest tube is draining pus, and the right-sided chest tube is draining serosanguineous liquid. Right sided drained 400 cc since last night and the left side drained 800 cc since last night. Clearly the patient has empyema she may or may not require decortication or thrombolytic instillation into the pleural space. Patient continues to have air leak in both chest tubes. She is on assist-control rate of 30 tidal volume 400 FiO2 down to 50% PEEP of 5 last ABG showed a pO2 of 147 pCO2 42 pH of 7.33. Thoracic surgery was consulted and infectious disease was also consulted. Patient is receiving presently vancomycin and cefepime, she has allergies to penicillin hence Zosyn was discontinued. Her urine output is reasonable, patient received 3 L of fluid boluses and she is on IV fluid at 130 cc/h. Patient is critically ill. Continues to have leukocytosis with WBC count of 23.7 hemoglobin 9.8. Basic metabolic profile is normal. Urine test is positive for opiates Patient was reevaluated today on 11/25/2023, remains in the ICU intubated and mechanically ventilated. Patient is on assist-control of 3 0 tidal volume 400 FiO2 50% PEEP of 5 ABG showed a pO2 of 102 pCO2 41 pH of 7.48, hence no changes were made in present vent settings. Patient remains on antibiotics in the form of vancomycin and cefepime, we are treating positive blood cultures for MRSA and positive left-sided pleural effusion which is positive for MRSA. Patient is receiving fentanyl at 2 mcg/kg/h propofol at 75 mcg/kg/min Versed at 2 mg/h norepinephrine at 0.05 mcg/kg/min. IV fluid is running at 130 cc/h in the form of lactated Ringer's. Urine output has been excellent over 50 cc an hour. Chest x-ray continues to show evidence of bilateral pneumothoraces, there is a loculated left-sided pneumothorax and there is a apical right-sided pneumothorax. The drainage from the left-sided chest tube is noted to be purulent drainage from the right-sided chest tube is noted to be serosanguineous. Patient did receive lytic treatment to the loculated effusion on the right side, but no lytics applied to the left side. Patient is having air leak in the left-sided chest tube, but no air leak noted in the right-sided chest tube although the patient does have a small apical pneumothorax noted. WBC count today is 12.6 hemoglobin 8.1, basic metabolic profile is normal renal profile is normal. Patient evaluated today on 11/26/2023, remains in the ICU intubated and mechanically ventilated. Remains on assist-control rate of 30 tidal volume 400 FiO2 75% PEEP of 5 apparently the patient desaturated yesterday, and she seems to be developing more air leak from the bilateral pneumothoraces/chest tubes. Today I increased her tidal volume up to 450 increase the rate up to 32 PEEP the same cut down FiO2 down to 60%. ABG showed a pO2 of 93 pCO2 47 pH of 7.47. Patient remains on antibiotics including vancomycin for her MRSA in the sputum and in the blood as well as in the pleural fluid. Patient remains on fentanyl 1.5 mcg/kg/h LR at 130 cc/h Versed 3 mg/h norepinephrine 0.18 mcg/kg/min propofol at 50 mcg/kg/min. Chest x-ray continues to show bilateral pneumothoraces right and left, the left one seems to be loculated and the right one seems to be apical there is at least 50 cc of volume loss with each tidal volume. Hence tidal volume was increased from 400 to 450. Her overall clinical condition remains very critical, patient has very poor prognosis, nonetheless she is on appropriate antibiotics, bronchodilators, and continues to have bilate ral chest tubes. WBC count today is 25.2 hemoglobin 9.3 basic metabolic profile is normal renal profile is normal Reevaluate today on11/27/23, remains in the ICU, intubated and mechanically ventilated, on assist-control rate of 42 tidal volume 450 FiO2 60% PEEP of 5 ABG showed a pO2 of 72 pCO2 43 pH of 7.49. Patient remains fully sedated she is on fentanyl 1.5 mcg/kg/min she is also on Versed 3 mg/h. Propofol at 50 mcg/kg/min. Patient remains hemodynamically unstable requiring norepinephrine at 0.11 mcg/kg/min she is on vital HP at 16 mL/h. She is also on LR at 150 cc/h. Today I did not make any changes in her ventilator settings. Her chest x-ray is basically about the same continues to show right-sided pneumothorax but I do not see an air leak today on the right side but she does have an air leak on the left side and continues to have significant purulent drainage from the chest tube on the left side. 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 Not much of a change overnight, patient remains critically ill. Continues to have leukocytosis with WBC count of 28.2 hemoglobin 8.5 basic metabolic profile is normal and renal profile is normal Reevaluate today on 11/28/2023, remains in the ICU intubated and mechanically ventilated. Patient is on assist-control rate of 52 tidal volume 450 FiO2 60% PEEP of 5 ABG showed a pO2 of 73 pCO2 37 pH of 7.52 hence FiO2 was cut down to 55% and rate to cut down to 28. Patient continues to have bilateral chest tubes , the left-sided chest tube has ongoing continuous leak, right-sided chest tube has intermittent airleak. However the patient is maintaining her adequate tidal volumes which are about 450. Patient remains on propofol at 50 mcg/kg/min Versed 3 mg/h Fentanyl 1.5 mcg/kg/h patient is also receiving norepinephrine at 0.08 mcg/kg/min. Her IV fluid which is LR Down to 100 cc/h. She is on vital HP patient had a Tmax of 102.9 yesterday, cultures of blood and pleural effusion are positive for MRSA, patient remains on vancomycin. If the patient continues to have positive blood cultures in the next couple of days, may have to consider OSIRIS. The cultures from the are pending. Chest x-ray continues to show significant hydropneumothorax on the left side, and she has mostly hydrothorax on the right side. I could not appreciate a pneumothorax on the right side labs today showed leukocytosis with WBC of 23.1 hemoglobin 7.4, basic metabolic profile is normal renal profile is normal today on 11/29/2023 patient remains intubated and mechanically ventilated, she is on assist-control rate of 28 tidal volume 450 FiO2 55% PEEP of 5 ABG showed a pO2 of 94 pCO2 34 pH of 7.53, hence her vent settings were changed to cut down her rate to 26 cut down FiO2 to 50% And PEEP at 5. Patient's hemoglobin is low today at 6.8, and she will receive a unit of packed RBCs. Patient is being treated for MRSA pneumonia, bacteremia, and empyema. Remains on propofol at 30 mcg/kg/min Fentanyl 1 mcg/kg/h she is also on Versed which I will discontinue today 2 mg/h. Norepinephrine 0.02 mcg/kg/min and IV fluid 0.9 normal saline at 100 cc/h. Chest x-ray continues to show left-sided loculated pneumothorax, and she continues to have ongoing airleak from the left-sided chest tube. The right-sided chest tube seems to be occluded, hence we will ask thoracic surgery to flush the chest tube, and the patient has what seems to be a pleural effusion on the right side, drainage is serosanguineous. Considering the overall picture, the patient is again not quite ready for any weaning, however over the next couple of days as we cut down on sedation, may start waking the patient up and give the patient weaning trials if possible. At this point she remains quite ill, and I doubt if she will tolerate any form of weaning her FiO2 just dropped down from 55 to 50%., Continues to have leukocytosis but improving WBC count is 24.7 hemoglobin 6.8 and she will receive a unit of packed RBCs. Basic metabolic profile is normal renal profile is normal and urine output is excellent Objective - Vital Signs Vital signs: Vital Signs Temp 100.9 F H 11/29/23 09:47 Pulse 107 H 11/29/23 11:49 Resp 27 H 11/29/23 11:00 BP 96/50 11/29/23 09:47 Pulse Ox 90 L 11/29/23 11:00 FiO2 50 11/29/23 11:40 Intake & Output 11/28/23 11/29/23 11/29/23 18:59 06:59 18:59 Intake Total 3021.986 2449.049 1218.260 Output Total 2085 1300 480 Balance 879.729 0947.049 738.260 Weight 119.8 kg 120 kg Intake: IV 1193 1133 515 Lactated Ringers 1,000 ml 1160 1100 500 @ 100 mls/hr IV .Q10H [facility] Rx#:[id number] Pressure bag 33 33 15 Intake, IV Titration 1346.986 934.049 183.260 Amount Calcium Gluconate in NaCl 100 2 gm In Saline 1 100ml. bag @ 100 mls/hr IVPB ONCE ONE Rx#:[id number] Magnesium Sulfate-D5w Pmx 100 1 gm In Dextrose/Water 1 100ml.bag @ 100 mls/hr IVPB ONCE ONE Rx#: [id number] Midazolam HCl 50 mg In 42.7 56.3 Sodium Chloride 0.9% 40 ml @ 1 MG/HR 1 mls/hr IV .Q24H [facility] Rx#:[id number] Norepinephrine 32 mg In 89.094 39.565 9.526 Sodium Chloride 0.9% 218 ml @ 0.03 MCG/KG/MIN 1. 403 mls/hr IV .Q24H [facility] Rx#:[id number] Vancomycin 1,750 mg In 501 Sodium Chloride 0.9% 500 ml 500 ml @ 167 mls/hr IVPB Q8H [facility] Rx#: [id number] Vancomycin 2,000 mg In 500 Sodium Chloride 0.9% 500 ml 500 ml @ 167 mls/hr IVPB Q8H [facility] Rx#: [id number] fentaNYL (PF). 1,000 mcg 214.512 57.213 92.306 In Sodium Chloride 0.9% 80 ml @ 0.5 MCG/KG/HR 4. 99 mls/hr IV .Q20H3M [facility] Rx#:[id number] propofoL 1,000 mg In 299.680 280.971 81.428 Empty Bag 1 bag @ 15 MCG/ KG/MIN 8.981 mls/hr IV . Q11H9M [facility] Rx#:[id number] Tube Feeding 272 352 180 Blood Product 310 Rc As-1 Unit 310 [id number] Other 210 30 30 Output: Chest Tube Drainage 160 0 130 Chest Tube 100 0 100 Chest Tube Right 60 0 30 Urine 1925 1300 350 Other: Voiding Method Indwelling Catheter Indwelling Catheter ABP, PAP, CO, CI - Last Documented Arterial Blood Pressure 93/50 - Exam General: Revealed 43-year-old female intubated, obese, sedated, calm. Skin: Skin is warm and dry and no rashes or lesions are noted. Eye: Pupils are equal, round and reactive to light, extra-ocular movements are intact; there is normal conjunctiva bilaterally. Ears, nose, mouth and throat: There are moist mucous membranes and no oral lesions. Neck: The neck is supple, there is no tenderness or JVD. Cardiovascular: There is a regular rate and rhythm. No murmur, rub or gallop is appreciated. Respiratory: Bilateral rhonchi noted bilaterally. Gastrointestinal: Obese, soft, nontender, no megaly no rebound. Back: There is no tenderness to palpation in the midline. There is no obvious deformity. Musculoskeletal: No deformities noted Neurological: Not assessed patient is sedated, on propofol, Versed, and fentanyl. Psychiatric: Could not assess mostly because of sedation. - Labs CBC & Chem 7: 11/29/23 05:15 11/29/23 02:06 Labs: Abnormal Lab Results - Last 24 Hours (Table) 11/28/23 11/29/23 11/29/23 Range/Units 18:16 02:06 02:15 WBC 24.3 H (3.8-10.6) k/uL RBC 2.43 L (3.80-5.40) m/uL Hgb 7.2 L (11.4-16.0) gm/dL Hct 22.1 L (34.0-46.0) % ABG pH (7.35-7.45) ABG pCO2 (35-45) mmHg ABG HCO3 (21-25) mmol/L ABG Total CO2 (19-24) mmol/L ABG O2 Saturation (94-97) % Sodium 134 L (137-145) mmol/L Creatinine 0.39 L (0.52-1.04) mg/dL Glucose 104 H (74-99) mg/dL POC Glucose (mg/dL) 111 H (70-110) mg/dL Calcium 6.9 L (8.4-10.2) mg/dL Crossmatch 11/29/23 11/29/23 11/29/23 Range/Units 04:59 05:15 06:15 WBC 24.7 H (3.8-10.6) k/uL RBC 2.30 L (3.80-5.40) m/uL Hgb 6.8 L* (11.4-16.0) gm/dL Hct 21.1 L (34.0-46.0) % ABG pH 7.53 H (7.35-7.45) ABG pCO2 34 L (35-45) mmHg ABG HCO3 28 H (21-25) mmol/L ABG Total CO2 29 H (19-24) mmol/L ABG O2 Saturation 98.4 H (94-97) % Sodium (137-145) mmol/L Creatinine (0.52-1.04) mg/dL Glucose (74-99) mg/dL POC Glucose (mg/dL) (70-110) mg/dL Calcium (8.4-10.2) mg/dL Crossmatch See Detail Microbiology - Last 24 Hours (Table) 11/27/23 09:40 Blood Culture - Preliminary Blood 11/26/23 12:30 Blood Culture - Preliminary Blood Assessment and Plan Assessment: Impression:Acute hypoxic respiratory failure Acute bilateral pneumonia with empyema/hydropneumothorax, status post chest tube placement on both side Acute bacteremia secondary to MRSA secondary to empyema/pneumonia Acute sepsis and septic shock secondary to above Acute leukocytosis, improving History of polysubstance abuse History of MS History of depression and anxiety History of interstitial cystitis and UTI Fibromyalgia Chronic pain syndrome History of seizure disorder Degenerative joint disease Benign essential hypertension Morbid obesity Recommendation: Continue ventilatory support, ventilator settings were adjusted according to ABG Continue bilateral chest tubes to suction and continue to monitor drainage and airleak. Chest tube seems to be plugged, and thoracic surgery will flush the tube today Continue vancomycin, repeat blood cultures for Continue pressors however the dose has been cut down significantly patient is down to norepinephrine at 0.02 mcg/kg/min Continue nutritional support/enteral feeding Continue DVT prophylaxis and continue GI prophylaxis Remains critically ill Critical care time is over 30-minute Will continue to follow. Time with Patient: Greater than 30
[2023-11-29 12:42] LABS: Glucose,Whole Blood 112 mg/dL (70-110)
--- NOTE | 2023-11-29 14:44 | P.PN ---
Subjective Progress Note Date: 11/29/23 patient 43-year-old lady who is currently incarcerated and was brought to the ER for chest pain and shortness of breath. Most of the history is been taken from the electronic medical record according to which patient has been having shortness of breath for the last few weeks. Patient also been complaining of cough and chest pain. Patient also has having fevers at the facility. Because of the symptoms, patient was brought to the ER. Where patient was found to be extremely tachycardic and hypoxic, patient had to be placed on 100% nonrebreather mask. Initial chest x-ray done showed bilateral pneumothoraces with moderate size right large left-sided pneumothorax. Initial lab work done in the ER showed WBC 23.8, hemoglobin 9.3, platelet count 490, INR 1.3, D-dimer 4.66, sodium 129, potassium 3.9, BUN 44, creatinine 0.96, glucose 121, lactate 2.8, AST 16, ALT 64 Influenza A not detected Influenza B not detected RSV not detected COVID-19 not detected CTA chest done in the ER showed bilateral hydropneumothoraces, there is a small to moderate right and large left pneumothorax small right and moderate left pleural effusions. Areas of tethering of the lung attached to the pleura most pronounced anteriorly and superiorly correlate for superimposed infection. Patient had a left-sided chest tube placed in the ER and was transferred to ICU where she was later intubated. Labs done this morning showed WBC 12.6, hemoglobin 8.1, platelet count 380, sodium 141, potassium 3.5, BUN 12, c reatinine 0.60. 2D echo done showed LVEF of 65 to 70%, no obvious regional wall motion abnormalities. Blood cultures growing MRSA Patient admitted to ICU under internal medicine service 11/24. Patient seen and examined. Continues to be intubated, has bilateral chest tubes. Patient had lytics instilled in the right chest tube with 650 mL output 11/25. Patient seen and examined in the ICU. Continues to be intubated. Total output from right chest tube is close to 134 0 mL after instilling the lytics. Continues to be on propofol, fentanyl, Versed. Patient also on IV Levophed. 11/26. Patient seen and examined. Blood work done this morning showed WBC 28.2, hemoglobin 8.5, platelet count 336, sodium 134, potassium 3.6, BUN 12, creatinine 0.48, calcium 6.7. Continues to be on IV antibiotics and pressors. 11/27. Patient seen and examined. Vent settings were adjusted by ICU, FiO2 was decreased. Levophed will being weaned down 11/28 Patient examined. continues to spike fevers. Currently on Levophed. lab work done this morning showed WBC 24.7, hemoglobin 6.8, platelet count was 61. Patient getting 1 unit of packed red blood cell REVIEW OF SYSTEMS: Cannot be obtained as patient currently intubated and sedated PHYSICAL EXAMINATION: GENERAL: The patient is intubated and sedated, not in any acute distress. HEENT: Pupils are round and equally reacting to light. EOMI. No scleral icterus. No conjunctival pallor. Normocephalic, atraumatic. No pharyngeal erythema. No thyromegaly. CARDIOVASCULAR: S1 and S2 present. No murmurs, rubs, or gallops. PULMONARY: diminished breath sound the bases bilaterally, bilateral chest tube seen ABDOMEN: Soft, nontender, nondistended, normoactive bowel sounds. No palpable organomegaly. MUSCULOSKELETAL: No joint swelling or deformity. EXTREMITIES: No cyanosis, clubbing, or pedal edema. NEUROLOGICAL: Currently intubated and sedated SKIN: No rashes. Assessment and plan Acute hypoxic respiratory failure Acute bilateral pneumonia complicated by bilateral pneumothoraces. Acute bilateral empyema, post bilateral chest tube insertion with purulent material draining from both lungs. MRSA bacteremia anemia Acute septic shock, Acute leukocytosis secondary to above Morbid obesity Polysubstance abuse Hyponatremia Elevated LFTs Lactic acidosis Monitor vital signs Monitor CBC Monitor CMP Continue telemetry monitoring Continue vent management per ICU Aggressive bronchopulmonary hygiene Blood cultures growing MRSA, repeat blood cultures till clearence Sputum cultures ordered Continue IV cefepime, vancomycin Continue Levophed patient transfused 1 unit of packed red blood cell Continue chest tube management per CT surgery, lytics instilled into the right chest tube on 11/24, no plan for surgical intervention Critical care following ID following Patient's very poor prognosis per multiple specialities Labs and medication were reviewed.. Continue same treatment. Continue with symptomatic treatment. Resume home medication. Monitor labs and vitals. DVT and GI prophylaxis. Further recommendations as per clinical course of the patient Dictation was produced using [employer] software. please excuse any grammatical, word or spelling errors. Objective - Vital Signs Vital signs: Vital Signs Temp 100.3 F H 11/29/23 12:00 Pulse 103 H 11/29/23 13:00 Resp 24 11/29/23 13:00 BP 98/47 11/29/23 11:49 Pulse Ox 96 11/29/23 13:00 FiO2 50 11/29/23 12:00 Intake & Output 11/28/23 11/29/23 11/29/23 18:59 06:59 18:59 Intake Total 3021.986 2449.049 1957.760 Output Total 2085 1300 530 Balance 077.991 5876.049 1427.760 Weight 119.8 kg 120 kg Intake: IV 1193 1133 1118 Lactated Ringers 1,000 ml 1160 1100 600 @ 100 mls/hr IV .Q10H [facility] Rx#:[id number] Pressure bag 33 33 18 Vancomycin 1,750 mg In 500 Sodium Chloride 0.9% 500 ml 500 ml @ 167 mls/hr IVPB Q12H [facility] Rx#: [id number] Intake, IV Titration 1346.986 934.049 201.760 Amount Calcium Gluconate in NaCl 100 2 gm In Saline 1 100ml. bag @ 100 mls/hr IVPB ONCE ONE Rx#:[id number] Magnesium Sulfate-D5w Pmx 100 1 gm In Dextrose/Water 1 100ml.bag @ 100 mls/hr IVPB ONCE ONE Rx#: [id number] Midazolam HCl 50 mg In 42.7 56.3 18.5 Sodium Chloride 0.9% 40 ml @ 1 MG/HR 1 mls/hr IV .Q24H [facility] Rx#:[id number] Norepinephrine 32 mg In 89.094 39.565 9.526 Sodium Chloride 0.9% 218 ml @ 0.03 MCG/KG/MIN 1. 403 mls/hr IV .Q24H [facility] Rx#:[id number] Vancomycin 1,750 mg In 501 Sodium Chloride 0.9% 500 ml 500 ml @ 167 mls/hr IVPB Q8H [facility] Rx#: [id number] Vancomycin 2,000 mg In 500 Sodium Chloride 0.9% 500 ml 500 ml @ 167 mls/hr IVPB Q8H [facility] Rx#: [id number] fentaNYL (PF). 1,000 mcg 214.512 57.213 92.306 In Sodium Chloride 0.9% 80 ml @ 0.5 MCG/KG/HR 4. 99 mls/hr IV .Q20H3M [facility] Rx#:[id number] propofoL 1,000 mg In 299.680 280.971 81.428 Empty Bag 1 bag @ 15 MCG/ KG/MIN 8.981 mls/hr IV . Q11H9M [facility] Rx#:[id number] Tube Feeding 272 352 268 Blood Product 310 Rc As-1 Unit 310 [id number] Other 210 30 60 Output: Chest Tube Drainage 160 0 150 Chest Tube 100 0 100 Chest Tube Right 60 0 50 Urine 1925 1300 380 Other: Voiding Method Indwelling Catheter Indwelling Catheter Indwelling Catheter ABP, PAP, CO, CI - Last Documented Arterial Blood Pressure 94/51 - Labs CBC & Chem 7: 11/29/23 05:15 11/29/23 02:06 Labs: Abnormal Lab Results - Last 24 Hours (Table) 11/28/23 11/29/23 11/29/23 Range/Units 18:16 02:06 02:15 WBC 24.3 H (3.8-10.6) k/uL RBC 2.43 L (3.80-5.40) m/uL Hgb 7.2 L (11.4-16.0) gm/dL Hct 22.1 L (34.0-46.0) % ABG pH (7.35-7.45) ABG pCO2 (35-45) mmHg ABG HCO3 (21-25) mmol/L ABG Total CO2 (19-24) mmol/L ABG O2 Saturation (94-97) % Sodium 134 L (137-145) mmol/L Creatinine 0.39 L (0.52-1.04) mg/dL Glucose 104 H (74-99) mg/dL POC Glucose (mg/dL) 111 H (70-110) mg/dL Calcium 6.9 L (8.4-10.2) mg/dL Crossmatch 11/29/23 11/29/23 11/29/23 Range/Units 04:59 05:15 06:15 WBC 24.7 H (3.8-10.6) k/uL RBC 2.30 L (3.80-5.40) m/uL Hgb 6.8 L* (11.4-16.0) gm/dL Hct 21.1 L (34.0-46.0) % ABG pH 7.53 H (7.35-7.45) ABG pCO2 34 L (35-45) mmHg ABG HCO3 28 H (21-25) mmol/L ABG Total CO2 29 H (19-24) mmol/L ABG O2 Saturation 98.4 H (94-97) % Sodium (137-145) mmol/L Creatinine (0.52-1.04) mg/dL Glucose (74-99) mg/dL POC Glucose (mg/dL) (70-110) mg/dL Calcium (8.4-10.2) mg/dL Crossmatch See Detail 11/29/23 Range/Units 12:41 WBC (3.8-10.6) k/uL RBC (3.80-5.40) m/uL Hgb (11.4-16.0) gm/dL Hct (34.0-46.0) % ABG pH (7.35-7.45) ABG pCO2 (35-45) mmHg ABG HCO3 (21-25) mmol/L ABG Total CO2 (19-24) mmol/L ABG O2 Saturation (94-97) % Sodium (137-145) mmol/L Creatinine (0.52-1.04) mg/dL Glucose (74-99) mg/dL POC Glucose (mg/dL) 112 H (70-110) mg/dL Calcium (8.4-10.2) mg/dL Crossmatch Microbiology - Last 24 Hours (Table) 11/27/23 09:40 Blood Culture - Preliminary Blood 11/26/23 12:30 Blood Culture - Preliminary Blood
[2023-11-29 15:00] LABS: % Iron Saturation 5.88 (12.00-45.00)
[2023-11-29 15:06] LABS: HCT 23.6 % (34.0-46.0); HGB 7.6 gm/dL (11.4-16.0); MCH 29.6 pg (25.0-35.0); MCHC 32.4 g/dL (31.0-37.0); MCV 91.3 fL (80.0-100.0); Mean Platelet Volume 8.7; Platelet Count 260 k/uL (150-450); RBC 2.58 m/uL (3.80-5.40); WBC 27.8 k/uL (3.8-10.6)
[2023-11-29] MEDS: SODIUM CHLORIDE 0.9% 1,000 ML IV ONE (16:20)
[2023-11-29 17:56] LABS: Glucose,Whole Blood 105 mg/dL (70-110)
--- NOTE | 2023-11-29 19:28 | P.PN ---
Subjective Progress Note Date: 11/29/23 Principal diagnosis: Reason for follow-up is sepsis MRSA pneumonia bacteremia and empyema Patient is a 43-year-old female past medical history significant for hypertension fibromyalgia asthma reflux seizure disorder currently incarcerated and [facility] for evaluation of increasing shortness of breath and chest pain, patient did have evidence of bilateral hydropneumothorax requiring bilateral chest tube placement and did have a positive blood culture with MRSA. On today's visit that is 11/29/2023,the patient fever pattern slightly improved with a Tmax of 100.9 degrees warm hydrated the patient required slightly more positive today per the nursing staff patient did have some adjustment of the chest tube by the CT surgery has it was not draining patient is currently on 50% FiO2 no diarrhea has been reported. Patient white count is 27.8 creatinine is 0.39 blood culture repeat from 11/26/2023 as well as 11/27/2023 has been negative so far Objective - Vital Signs Vital signs: Vital Signs Temp 100.9 F H 11/29/23 09:47 Pulse 107 H 11/29/23 11:49 Resp 27 H 11/29/23 11:00 BP 96/50 11/29/23 09:47 Pulse Ox 90 L 11/29/23 11:00 FiO2 50 11/29/23 11:40 Intake & Output 11/28/23 11/29/23 11/29/23 18:59 06:59 18:59 Intake Total 3021.986 2449.049 1218.260 Output Total 2085 1300 480 Balance 820.407 9164.049 738.260 Weight 119.8 kg 120 kg Intake: IV 1193 1133 515 Lactated Ringers 1,000 ml 1160 1100 500 @ 100 mls/hr IV .Q10H [facility] Rx#:[id number] Pressure bag 33 33 15 Intake, IV Titration 1346.986 934.049 183.260 Amount Calcium Gluconate in NaCl 100 2 gm In Saline 1 100ml. bag @ 100 mls/hr IVPB ONCE ONE Rx#:[id number] Magnesium Sulfate-D5w Pmx 100 1 gm In Dextrose/Water 1 100ml.bag @ 100 mls/hr IVPB ONCE ONE Rx#: [id number] Midazolam HCl 50 mg In 42.7 56.3 Sodium Chloride 0.9% 40 ml @ 1 MG/HR 1 mls/hr IV .Q24H [facility] Rx#:[id number] Norepinephrine 32 mg In 89.094 39.565 9.526 Sodium Chloride 0.9% 218 ml @ 0.03 MCG/KG/MIN 1. 403 mls/hr IV .Q24H [facility] Rx#:[id number] Vancomycin 1,750 mg In 501 Sodium Chloride 0.9% 500 ml 500 ml @ 167 mls/hr IVPB Q8H [facility] Rx#: [id number] Vancomycin 2,000 mg In 500 Sodium Chloride 0.9% 500 ml 500 ml @ 167 mls/hr IVPB Q8H [facility] Rx#: [id number] fentaNYL (PF). 1,000 mcg 214.512 57.213 92.306 In Sodium Chloride 0.9% 80 ml @ 0.5 MCG/KG/HR 4. 99 mls/hr IV .Q20H3M [facility] Rx#:[id number] propofoL 1,000 mg In 299.680 280.971 81.428 Empty Bag 1 bag @ 15 MCG/ KG/MIN 8.981 mls/hr IV . Q11H9M [facility] Rx#:[id number] Tube Feeding 272 352 180 Blood Product 310 Rc As-1 Unit 310 [id number] Other 210 30 30 Output: Chest Tube Drainage 160 0 130 Chest Tube 100 0 100 Chest Tube Right 60 0 30 Urine 1925 1300 350 Other: Voiding Method Indwelling Catheter Indwelling Catheter ABP, PAP, CO, CI - Last Documented Arterial Blood Pressure 93/50 - Exam GENERAL DESCRIPTION: Middle-aged female intubated on the vent RESPIRATORY SYSTEM: Unlabored breathing , coarse breath sounds bilaterally HEART: S1 S2 regular rate and rhythm , ABDOMEN: Soft , no tenderness EXTREMITIES: No edema feet Exam completed with the help of [employer]PER[employer] - Labs CBC & Chem 7: 11/29/23 14:47 11/29/23 02:06 Labs: Abnormal Lab Results - Last 24 Hours (Table) 11/28/23 11/29/23 11/29/23 Range/Units 18:16 02:06 02:15 WBC 24.3 H (3.8-10.6) k/uL RBC 2.43 L (3.80-5.40) m/uL Hgb 7.2 L (11.4-16.0) gm/dL Hct 22.1 L (34.0-46.0) % ABG pH (7.35-7.45) ABG pCO2 (35-45) mmHg ABG HCO3 (21-25) mmol/L ABG Total CO2 (19-24) mmol/L ABG O2 Saturation (94-97) % Sodium 134 L (137-145) mmol/L Creatinine 0.39 L (0.52-1.04) mg/dL Glucose 104 H (74-99) mg/dL POC Glucose (mg/dL) 111 H (70-110) mg/dL Calcium 6.9 L (8.4-10.2) mg/dL Crossmatch 11/29/23 11/29/23 11/29/23 Range/Units 04:59 05:15 06:15 WBC 24.7 H (3.8-10.6) k/uL RBC 2.30 L (3.80-5.40) m/uL Hgb 6.8 L* (11.4-16.0) gm/dL Hct 21.1 L (34.0-46.0) % ABG pH 7.53 H (7.35-7.45) ABG pCO2 34 L (35-45) mmHg ABG HCO3 28 H (21-25) mmol/L ABG Total CO2 29 H (19-24) mmol/L ABG O2 Saturation 98.4 H (94-97) % Sodium (137-145) mmol/L Creatinine (0.52-1.04) mg/dL Glucose (74-99) mg/dL POC Glucose (mg/dL) (70-110) mg/dL Calcium (8.4-10.2) mg/dL Crossmatch See Detail Microbiology - Last 24 Hours (Table) 11/27/23 09:40 Blood Culture - Preliminary Blood 11/26/23 12:30 Blood Culture - Preliminary Blood Assessment and Plan (1) Empyema Current Visit: Yes Status: Acute Code(s): J86.9 - PYOTHORAX WITHOUT FISTULA SNOMED Code(s): 949681662 (2) MRSA bacteremia Current Visit: Yes Status: Acute Code(s): R78.81 - BACTEREMIA; B95.62 - METHICILLIN RESIS STAPH INFCT CAUSING DISEASES [facility] SNOMED Code(s): 12118412372274555 (3) Pneumonia Current Visit: Yes Status: Acute Code(s): J18.9 - PNEUMONIA, UNSPECIFIED ORGANISM SNOMED Code(s): 373170515 (4) Pneumothorax Current Visit: Yes Status: Acute Code(s): J93.9 - PNEUMOTHORAX, UNSPECIFIED SNOMED Code(s): 42734028 Plan: 1patient presented to hospital with sepsis in this patient who did have a fever tachycardia elevated white count source is pulmonary in this patient noted evidence of bilateral pneumothorax and effusion with question of complicated pneumonia/empyema keeping in mind the patient is from local assisted will need to cover for resistant gram-positive such as MRSA and gram-negative pathogen 2-patient blood sputum and pleural fluid culture with MRSA 3-blood cultures has been repeated document clearance of bacteremia, blood culture from 11/26/2023 so far negative 4-patient did have some improvement in the fever pattern white count is still elevated reason for persistent fever could be pocket of pus that may not have been drained with the current drainage procedure and may need evaluation by CT surgery keeping in mind her bacteremia Zyvox may not be ideal and the patient is allergic to cefuroxime so we cannot use Teflaro Dictation was produced using [employer] dictation software. please excuse any grammatical, word or spelling errors. Time with Patient: Less than 30
[2023-11-30 00:31] LABS: Glucose,Whole Blood 130 mg/dL (70-110)
--- NOTE | 2023-11-30 05:05 | XR ---
EXAM: XR Chest, 1 View CLINICAL HISTORY: ITS.REASON XR Reason: Tube placement TECHNIQUE: Frontal view of the chest. COMPARISON: X-ray dated 11/29/2023 FINDINGS: Lungs: Stable opacification of the bilateral mid to lower lungs. Increasing prominence of the pulmonary vasculature. Pleural space: Stable left-sided hydropneumothorax. Heart: The cardiac silhouette is obscured. Mediastinum: Unremarkable. Normal mediastinal contour. Bones/joints: Unremarkable. No acute fracture. Tubes, lines and devices: Stable placement of bilateral chest tubes, left sided central venous catheter, endotracheal tube and enteric tube. IMPRESSION: 1. Worsening pulmonary edema. 2. Concern for a new left upper lobe pneumonia. 3. Otherwise stable chest.
[2023-11-30 06:18] LABS: ABG Base Excess 5.1 mmol/L; ABG HCO3 30 mmol/L (21-25); ABG Oxygen Saturation 96.6 % (94-97); ABG PCO2 48 mmHg (35-45); ABG PO2 78 mmHg (83-108); ABG TCO2 31 mmol/L (19-24); Allen Test Performed? Yes
[2023-11-30 06:55] LABS: Glucose,Whole Blood 136 mg/dL (70-110)
[2023-11-30 08:50] LABS: HCT 23.8 % (34.0-46.0); HGB 7.4 gm/dL (11.4-16.0); Hypochromasia Slight; MCH 29.7 pg (25.0-35.0); MCHC 31.2 g/dL (31.0-37.0); Mean Platelet Volume 8.7; Platelet Count 264 k/uL (150-450); RBC 2.51 m/uL (3.80-5.40); WBC 25.8 k/uL (3.8-10.6)
[2023-11-30] MEDS: VANCOMYCIN TROUGH DUE 1 EACH MISC MISCELLANE ONE (08:53)
[2023-11-30 09:52] LABS: African American GFR (CKD) >90 (>60 ml/min/1.73 sqM); Anion Gap 2 mmol/L; Blood Urea Nitrogen 10 mg/dL (7-17); Carbon Dioxide 29 mmol/L (22-30); Chloride 105 mmol/L (98-107); Glucose 126 mg/dL (74-99); Non-African American GFR(CKD) >90 (>60 ml/min/1.73 sqM); Sodium 136 mmol/L (137-145)
[2023-11-30] MEDS: FUROSEMIDE 10 MG/ML 2 ML VIAL IV ONE (10:14)
[2023-11-30 12:08] LABS: Glucose,Whole Blood 119 mg/dL (70-110)
--- NOTE | 2023-11-30 13:39 | P.PN ---
Subjective Progress Note Date: 11/30/23 Principal diagnosis: Acute hypoxic respiratory failure secondary to bilateral pn eumonia/empyema/hydropneumothorax This is a 43-year-old female patient who is currently incarcerated who presented from a local shelter with shortness of breath and chest pain. Apparently, the patient has been having the symptoms for the past 3 weeks. She stated that she was having right-sided lateral chest pain along with difficulty breathing. In the emergency, the patient was extremely short of breath, tachycardic and hypoxic. She was also having cough. She was running a fever of 101.4. She was tachycardic with a heart rate of 155. Blood pressure was still stable at that point. She was placed on 100% nonrebreather facemask. A quick chest x-ray was done and the chest x-ray was abnormal with evidence of bilateral pneumothoraces moderate size right and large left-sided pneumothorax. There was also small right-sided pleural effusion and moderate-sized left-sided pleural effusion. There was near complete collapse of the left lung with scattered areas of scattered lung along the pleura. There was also consolidation involving the right lower lobe and the right middle lobe. Based on those findings, the patient was given a CTA of the chest that showed no evidence of pneumothorax. Similar findings were noted with the patient was found to have bilateral pneumothoraces. Pleural effusions were again noted large on the left and moderate-sized on the right. No evidence of any filling defects. At that point, a left-sided chest tube was inserted and copious amount of purulent material was drained from the left lung a total of 800 cc of pus and has already drained from the left lung. The patient was moved to the intensive care unit. She was quite short of breath. She was initially on Airvo system with an FiO2 of 90% with a 60 L flow. She became more short of breath and hemodynamically unstable and hypotensive. At that point, the decision was to intubate the patient and placed on mechanical ventilation. Postintubation, the patient developed peak pressuring. There was worsening in the air leak in the left lung chest tube. At the same time, the patient became unstable and became progressively more hypotensive. Pressors were initiated and the patient is c urrently on norepinephrine running at 0.3 mcg/kg/min. Repeat chest x-ray was done and it showed worsening of the right-sided pneumothorax. I attended on this patient and immediately inserted triple-lumen catheter for vascular access and hemodynamic support. Resuscitation was continued. At the same time, I inserted a right-sided chest tube and another 400 cc of purulent material was aspirated from the right lung. Subsequent chest x-ray showed reexpansion of the right lung without any evidence of residual pneumothorax. Left lung is extensively consolidated and there is a loculated pneumothorax in the left posterior lateral aspect. At this point in time, the patient is intubated on mechanical ventilator. She is on an assist-control mode at rate of 30, tidal volume of 400, FiO2 is at 100% with a PEEP of 5. She is on norepinephrine. This is being weaned off. She is sedated with propofol which is running at 70 mcg/kg/min. She is also on normal saline at rate of 130 cc an hour. The patient is adequately sedated. She was given also a dose of Nimbex during those procedures. The white cell count is at 23.8 with a hemoglobin of 10.3 and a platelet count of 419. The most recent blood gas showed a pH of 7.32 and a pCO2 of 50 and pO2 of 65 and this was done prior to the insertion of the right-sided chest tube. The sodium is at 129 with a potassium level of 3.9 with a bicarb of 23 and a BUN of 44 with a creatinine of 0.9. Lactic acid level initially was at 2.8 and currently down to 1.5. LFTs are mildly elevated with an AST of 69, ALT of 64, troponins are negative and the proBNP level is within normal limits. The viral screen was also negative. Blood cultures were sent. The patient was started on a combination of IV cefepime, vancomycin and Zithromax. Based on her past medical history, this patient has history of multiple sclerosis, she is morbidly obese, she has history of migraine seizure disorder and fibromyalgia and hypertension. She also has history of anxiety and depression. She has history of polysubstance abuse which includes heroin heroin, cocaine, marijuana and marijuana use. She also does prescription pills. Her last hospital admission was back in November 2022 and at that time the patient was treated for exacerbation of her multiple sclerosis. Patient was evaluated this morning, patient is hemodynamically unstable, still requiring norepinephrine at 0.08 mcg/kg/min she is also requiring vasopressin at 0.03 units/h. Patient is receiving LR at 150 cc/h. Chest x-ray continues to show hydropneumothorax, both chest tubes are draining purulent and serosanguineous material the left-sided chest tube is draining pus, and the right-sided chest tube is draining serosanguineous liquid. Right sided drained 400 cc since last night and the left side drained 800 cc since last night. Clearly the patient has empyema she may or may not require decortication or thrombolytic instillation into the pleural space. Patient continues to have air leak in both chest tubes. She is on assist-control rate of 30 tidal volume 400 FiO2 down to 50% PEEP of 5 last ABG showed a pO2 of 147 pCO2 42 pH of 7.33. Thoracic surgery was consulted and infectious disease was also consulted. Patient is receiving presently vancomycin and cefepime, she has allergies to penicillin hence Zosyn was discontinued. Her urine output is reasonable, patient received 3 L of fluid boluses and she is on IV fluid at 130 cc/h. Patient is critically ill. Continues to have leukocytosis with WBC count of 23.7 hemoglobin 9.8. Basic metabolic profile is normal. Urine test is positive for opiates Patient was reevaluated today on 11/25/2023, remains in the ICU intubated and mechanically ventilated. Patient is on assist-control of 3 0 tidal volume 400 FiO2 50% PEEP of 5 ABG showed a pO2 of 102 pCO2 41 pH of 7.48, hence no changes were made in present vent settings. Patient remains on antibiotics in the form of vancomycin and cefepime, we are treating positive blood cultures for MRSA and positive left-sided pleural effusion which is positive for MRSA. Patient is receiving fentanyl at 2 mcg/kg/h propofol at 75 mcg/kg/min Versed at 2 mg/h norepinephrine at 0.05 mcg/kg/min. IV fluid is running at 130 cc/h in the form of lactated Ringer's. Urine output has been excellent over 50 cc an hour. Chest x-ray continues to show evidence of bilateral pneumothoraces, there is a loculated left-sided pneumothorax and there is a apical right-sided pneumothorax. The drainage from the left-sided chest tube is noted to be purulent drainage from the right-sided chest tube is noted to be serosanguineous. Patient did receive lytic treatment to the loculated effusion on the right side, but no lytics applied to the left side. Patient is having air leak in the left-sided chest tube, but no air leak noted in the right-sided chest tube although the patient does have a small apical pneumothorax noted. WBC count today is 12.6 hemoglobin 8.1, basic metabolic profile is normal renal profile is normal. Patient evaluated today on 11/26/2023, remains in the ICU intubated and mechanically ventilated. Remains on assist-control rate of 30 tidal volume 400 FiO2 75% PEEP of 5 apparently the patient desaturated yesterday, and she seems to be developing more air leak from the bilateral pneumothoraces/chest tubes. Today I increased her tidal volume up to 450 increase the rate up to 32 PEEP the same cut down FiO2 down to 60%. ABG showed a pO2 of 93 pCO2 47 pH of 7.47. Patient remains on antibiotics including vancomycin for her MRSA in the sputum and in the blood as well as in the pleural fluid. Patient remains on fentanyl 1.5 mcg/kg/h LR at 130 cc/h Versed 3 mg/h norepinephrine 0.18 mcg/kg/min propofol at 50 mcg/kg/min. Chest x-ray continues to show bilateral pneumothoraces right and left, the left one seems to be loculated and the right one seems to be apical there is at least 50 cc of volume loss with each tidal volume. Hence tidal volume was increased from 400 to 450. Her overall clinical condition remains very critical, patient has very poor prognosis, nonetheless she is on appropriate antibiotics, bronchodilators, and continues to have bilate ral chest tubes. WBC count today is 25.2 hemoglobin 9.3 basic metabolic profile is normal renal profile is normal Reevaluate today on11/27/23, remains in the ICU, intubated and mechanically ventilated, on assist-control rate of 42 tidal volume 450 FiO2 60% PEEP of 5 ABG showed a pO2 of 72 pCO2 43 pH of 7.49. Patient remains fully sedated she is on fentanyl 1.5 mcg/kg/min she is also on Versed 3 mg/h. Propofol at 50 mcg/kg/min. Patient remains hemodynamically unstable requiring norepinephrine at 0.11 mcg/kg/min she is on vital HP at 16 mL/h. She is also on LR at 150 cc/h. Today I did not make any changes in her ventilator settings. Her chest x-ray is basically about the same continues to show right-sided pneumothorax but I do not see an air leak today on the right side but she does have an air leak on the left side and continues to have significant purulent drainage from the chest tube on the left side. 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 Not much of a change overnight, patient remains critically ill. Continues to have leukocytosis with WBC count of 28.2 hemoglobin 8.5 basic metabolic profile is normal and renal profile is normal Reevaluate today on 11/28/2023, remains in the ICU intubated and mechanically ventilated. Patient is on assist-control rate of 52 tidal volume 450 FiO2 60% PEEP of 5 ABG showed a pO2 of 73 pCO2 37 pH of 7.52 hence FiO2 was cut down to 55% and rate to cut down to 28. Patient continues to have bilateral chest tubes , the left-sided chest tube has ongoing continuous leak, right-sided chest tube has intermittent airleak. However the patient is maintaining her adequate tidal volumes which are about 450. Patient remains on propofol at 50 mcg/kg/min Versed 3 mg/h Fentanyl 1.5 mcg/kg/h patient is also receiving norepinephrine at 0.08 mcg/kg/min. Her IV fluid which is LR Down to 100 cc/h. She is on vital HP patient had a Tmax of 102.9 yesterday, cultures of blood and pleural effusion are positive for MRSA, patient remains on vancomycin. If the patient continues to have positive blood cultures in the next couple of days, may have to consider OSIRIS. The cultures from the are pending. Chest x-ray continues to show significant hydropneumothorax on the left side, and she has mostly hydrothorax on the right side. I could not appreciate a pneumothorax on the right side labs today showed leukocytosis with WBC of 23.1 hemoglobin 7.4, basic metabolic profile is normal renal profile is normal today on 11/29/2023 patient remains intubated and mechanically ventilated, she is on assist-control rate of 28 tidal volume 450 FiO2 55% PEEP of 5 ABG showed a pO2 of 94 pCO2 34 pH of 7.53, hence her vent settings were changed to cut down her rate to 26 cut down FiO2 to 50% And PEEP at 5. Patient's hemoglobin is low today at 6.8, and she will receive a unit of packed RBCs. Patient is being treated for MRSA pneumonia, bacteremia, and empyema. Remains on propofol at 30 mcg/kg/min Fentanyl 1 mcg/kg/h she is also on Versed which I will discontinue today 2 mg/h. Norepinephrine 0.02 mcg/kg/min and IV fluid 0.9 normal saline at 100 cc/h. Chest x-ray continues to show left-sided loculated pneumothorax, and she continues to have ongoing airleak from the left-sided chest tube. The right-sided chest tube seems to be occluded, hence we will ask thoracic surgery to flush the chest tube, and the patient has what seems to be a pleural effusion on the right side, drainage is serosanguineous. Considering the overall picture, the patient is again not quite ready for any weaning, however over the next couple of days as we cut down on sedation, may start waking the patient up and give the patient weaning trials if possible. At this point she remains quite ill, and I doubt if she will tolerate any form of weaning her FiO2 just dropped down from 55 to 50%., Continues to have leukocytosis but improving WBC count is 24.7 hemoglobin 6.8 and she will receive a unit of packed RBCs. Basic metabolic profile is normal renal profile is normal and urine output is excellent Patient was reexamined today on 11/30/2023, remains intubated and mechanically ventilated, remains on vancomycin, patient is on assist-control rate of 24 tidal volume 450 FiO2 50% and PEEP of 5 ABG showed a pO2 of 78 pCO2 48 pH of 7.40 hence no changes were made in vent settings. Chest x-ray showed significant bilateral airspace disease loculated left-sided pneumothorax no clear-cut evidence of pneumothorax on the right. Chest x-ray is also suggestive of interstitial edema/infiltrates, hence the patient will be given a trial of diuresis. Hemoglobin is down to 7.4, patient did receive 1 unit of packed RBCs: WBC count remains high at 25.8 but steadily improving. Patient continues to have air leak in the left side chest tube, but no airleak noted in the right- sided chest tube. Drips bautista the patient is on fentanyl at 1 mcg/kg/h IV fluid LR at 100 cc/h norepinephrine at 0.04 mcg/kg/min propofol at 30 mcg/kg/min vital HP at 44/44. Patient did receive 20 mg of Lasix earlier while on rounds. Her arterial line went and nonfunctional, hence a new arterial line was placed in the left radial artery. Father called about his daughter, and I discussed her condition over the phone with her father and updated him on the situation. He is aware that she is critically ill, and at this point prognosis is relatively guarded. Objective - Vital Signs Vital signs: Vital Signs Temp 101.8 F H 11/30/23 09:00 Pulse 120 H 11/30/23 12:39 Resp 29 H 11/30/23 11:15 BP 109/64 11/30/23 11:15 Pulse Ox 94 L 11/30/23 11:15 FiO2 50 11/30/23 11:35 Intake & Output 11/29/23 11/30/23 11/30/23 18:59 06:59 18:59 Intake Total 4642.996 1543.464 898.568 Output Total 1155 1365 1315 Balance 3487.996 178.464 -416.432 Weight 122 kg Intake: IV 3306 643 465 .9 kvo 70 110 50 Lactated Ringers 1,000 ml 1200 400 @ 100 mls/hr IV .Q10H [facility] Rx#:[id number] Pressure bag 36 33 15 Sodium Chloride 0.9% 1, 1000 000 ml @ 999 mls/hr IV . Q1H1M ONE Rx#:[id number] Vancomycin 1,750 mg In 1000 500 Sodium Chloride 0.9% 500 ml 500 ml @ 167 mls/hr IVPB Q12H [facility] Rx#: [id number] Intake, IV Titration 404.996 312.464 183.568 Amount Midazolam HCl 50 mg In 20.8 Sodium Chloride 0.9% 40 ml @ 1 MG/HR 1 mls/hr IV .Q24H [facility] Rx#:[id number] Norepinephrine 32 mg In 10.462 67.637 3.548 Sodium Chloride 0.9% 218 ml @ 0.03 MCG/KG/MIN 1. 403 mls/hr IV .Q24H [facility] Rx#:[id number] fentaNYL (PF). 1,000 mcg 192.306 72.68 96.796 In Sodium Chloride 0.9% 80 ml @ 0.5 MCG/KG/HR 4. 99 mls/hr IV .Q20H3M [facility] Rx#:[id number] propofoL 1,000 mg In 181.428 172.147 83.224 Empty Bag 1 bag @ 15 MCG/ KG/MIN 8.981 mls/hr IV . Q11H9M [facility] Rx#:[id number] Tube Feeding 532 528 220 Blood Product 310 Rc As-1 Unit 310 [id number] Other 90 60 30 Output: Chest Tube Drainage 150 120 90 Chest Tube 100 80 70 Chest Tube Right 50 40 20 Urine 1005 1245 1225 Other: Voiding Method Indwelling Catheter Indwelling Catheter Indwelling Catheter # Voids 175 ABP, PAP, CO, CI - Last Documented Arterial Blood Pressure 113/81 - Exam General: Revealed 43-year-old female intubated, obese, sedated, calm. Skin: Skin is warm and dry and no rashes or lesions are noted. Eye: Pupils are equal, round and reactive to light, extra-ocular movements are intact; there is normal conjunctiva bilaterally. Ears, nose, mouth and throat: There are moist mucous membranes and no oral lesions. Neck: The neck is supple, there is no tenderness or JVD. Cardiovascular: Normal S1-S2, no S3 gallop, no murmur. Respiratory: Bilateral rhonchi noted bilaterally. Gastrointestinal: Obese, soft, nontender, no megaly no rebound. Musculoskeletal: No deformities noted Neurological: Not assessed patient is sedated, on propofol, and fentanyl. Psychiatric: Could not assess mostly because of sedation. Patient has been show marginal all along, and could not assess neurological status off sedation - Labs CBC & Chem 7: 11/30/23 08:21 11/30/23 08:21 Labs: Abnormal Lab Results - Last 24 Hours (Table) 11/29/23 11/29/23 11/30/23 Range/Units 06:08 14:47 00:30 WBC 27.8 H (3.8-10.6) k/uL RBC 2.58 L (3.80-5.40) m/uL Hgb 7.6 L (11.4-16.0) gm/dL Hct 23.6 L (34.0-46.0) % ABG pCO2 (35-45) mmHg ABG pO2 (83-108) mmHg ABG HCO3 (21-25) mmol/L ABG Total CO2 (19-24) mmol/L Sodium (137-145) mmol/L Creatinine (0.52-1.04) mg/dL Glucose (74-99) mg/dL POC Glucose (mg/dL) 130 H (70-110) mg/dL Calcium (8.4-10.2) mg/dL Iron 7 L (50-170) UG/DL TIBC 119 L (228-460) UG/DL % Saturation 5.88 L (12.00-45.00) Transferrin 84.8 L (204.0-354.0) mg/dL Ferritin 1143.0 H (10.0-291.0) ng/mL 11/30/23 11/30/23 11/30/23 Range/Units 06:19 06:54 08:21 WBC 25.8 H (3.8-10.6) k/uL RBC 2.51 L (3.80-5.40) m/uL Hgb 7.4 L (11.4-16.0) gm/dL Hct 23.8 L (34.0-46.0) % ABG pCO2 48 H (35-45) mmHg ABG pO2 78 L (83-108) mmHg ABG HCO3 30 H (21-25) mmol/L ABG Total CO2 31 H (19-24) mmol/L Sodium (137-145) mmol/L Creatinine (0.52-1.04) mg/dL Glucose (74-99) mg/dL POC Glucose (mg/dL) 136 H (70-110) mg/dL Calcium (8.4-10.2) mg/dL Iron (50-170) UG/DL TIBC (228-460) UG/DL % Saturation (12.00-45.00) Transferrin (204.0-354.0) mg/dL Ferritin (10.0-291.0) ng/mL 11/30/23 11/30/23 Range/Units 08:21 12:06 WBC (3.8-10.6) k/uL RBC (3.80-5.40) m/uL Hgb (11.4-16.0) gm/dL Hct (34.0-46.0) % ABG pCO2 (35-45) mmHg ABG pO2 (83-108) mmHg ABG HCO3 (21-25) mmol/L ABG Total CO2 (19-24) mmol/L Sodium 136 L (137-145) mmol/L Creatinine 0.39 L (0.52-1.04) mg/dL Glucose 126 H (74-99) mg/dL POC Glucose (mg/dL) 119 H (70-110) mg/dL Calcium 7.0 L (8.4-10.2) mg/dL Iron (50-170) UG/DL TIBC (228-460) UG/DL % Saturation (12.00-45.00) Transferrin (204.0-354.0) mg/dL Ferritin (10.0-291.0) ng/mL Microbiology - Last 24 Hours (Table) 11/27/23 09:40 Blood Culture - Preliminary Blood 11/26/23 12:30 Blood Culture - Preliminary Blood Assessment and Plan Assessment: Impression:Acute hypoxic respiratory failure Acute bilateral pneumonia with empyema/hydropneumothorax, status post chest tube placement on both side Acute bacteremia secondary to MRSA secondary to empyema/pneumonia Acute sepsis and septic shock secondary to above Acute leukocytosis, improving History of polysubstance abuse History of MS History of depression and anxiety History of interstitial cystitis and UTI Fibromyalgia Chronic pain syndrome History of seizure disorder Degenerative joint disease Benign essential hypertension Morbid obesity Recommendation: Continue ventilatory support, remains on AC rate of 24 tidal volume 450 FiO2 50% and PEEP of 5 Continue bilateral chest tubes to suction and continue to monitor drainage and airleak. No more air leak noted in the right-sided chest tube, however continues to have significant air leak in the left-sided chest tube Continue vancomycin, repeat blood cultures from the have been negative so far Continue pressors however the dose has been cut down significantly patient is down to norepinephrine at 0.04 mcg/kg/min Continue nutritional support/enteral feeding Continue DVT prophylaxis and continue GI prophylaxis Remains critically ill discussed and updated her father on the phone about her condition,Made aware that she does have relatively poor prognosis, and she is critically ill Critical care time is over 30-minute, not including the time spent on procedures Will continue to follow. Time with Patient: Greater than 30
--- NOTE | 2023-11-30 13:53 | P.PN ---
Subjective Progress Note Date: 11/30/23 patient 43-year-old lady who is currently incarcerated and was brought to the ER for chest pain and shortness of breath. Most of the history is been taken from the electronic medical record according to which patient has been having shortness of breath for the last few weeks. Patient also been complaining of cough and chest pain. Patient also has having fevers at the facility. Because of the symptoms, patient was brought to the ER. Where patient was found to be extremely tachycardic and hypoxic, patient had to be placed on 100% nonrebreather mask. Initial chest x-ray done showed bilateral pneumothoraces with moderate size right large left-sided pneumothorax. Initial lab work done in the ER showed WBC 23.8, hemoglobin 9.3, platelet count 490, INR 1.3, D-dimer 4.66, sodium 129, potassium 3.9, BUN 44, creatinine 0.96, glucose 121, lactate 2.8, AST 16, ALT 64 Influenza A not detected Influenza B not detected RSV not detected COVID-19 not detected CTA chest done in the ER showed bilateral hydropneumothoraces, there is a small to moderate right and large left pneumothorax small right and moderate left pleural effusions. Areas of tethering of the lung attached to the pleura most pronounced anteriorly and superiorly correlate for superimposed infection. Patient had a left-sided chest tube placed in the ER and was transferred to ICU where she was later intubated. Labs done this morning showed WBC 12.6, hemoglobin 8.1, platelet count 380, sodium 141, potassium 3.5, BUN 12, c reatinine 0.60. 2D echo done showed LVEF of 65 to 70%, no obvious regional wall motion abnormalities. Blood cultures growing MRSA Patient admitted to ICU under internal medicine service 11/24. Patient seen and examined. Continues to be intubated, has bilateral chest tubes. Patient had lytics instilled in the right chest tube with 650 mL output 11/25. Patient seen and examined in the ICU. Continues to be intubated. Total output from right chest tube is close to 134 0 mL after instilling the lytics. Continues to be on propofol, fentanyl, Versed. Patient also on IV Levophed. 11/26. Patient seen and examined. Blood work done this morning showed WBC 28.2, hemoglobin 8.5, platelet count 336, sodium 134, potassium 3.6, BUN 12, creatinine 0.48, calcium 6.7. Continues to be on IV antibiotics and pressors. 11/27. Patient seen and examined. Vent settings were adjusted by ICU, FiO2 was decreased. Levophed will being weaned down 11/28 Patient examined. continues to spike fevers. Currently on Levophed. lab work done this morning showed WBC 24.7, hemoglobin 6.8, platelet count was 61. Patient getting 1 unit of packed red blood cell 11/29. Patient seen and examined.Blood work done this morning showed WBC 25.8, hemoglobin 7.4, sodium 136, potassium 4, BUN 10, creatinine 0.39. REVIEW OF SYSTEMS: Cannot be obtained as patient currently intubated and sedated PHYSICAL EXAMINATION: GENERAL: The patient is intubated and sedated, not in any acute distress. HEENT: Pupils are round and equally reacting to light. EOMI. No scleral icterus. No conjunctival pallor. Normocephalic, atraumatic. No pharyngeal erythema. No thyromegaly. CARDIOVASCULAR: S1 and S2 present. No murmurs, rubs, or gallops. PULMONARY: diminished breath sound the bases bilaterally, bilateral chest tube seen ABDOMEN: Soft, nontender, nondistended, normoactive bowel sounds. No palpable organomegaly. MUSCULOSKELETAL: No joint swelling or deformity. EXTREMITIES: No cyanosis, clubbing, or pedal edema. NEUROLOGICAL: Currently intubated and sedated SKIN: No rashes. Assessment and plan Acute hypoxic respiratory failure Acute bilateral pneumonia complicated by bilateral pneumothoraces. Acute bilateral empyema, post bilateral chest tube insertion with purulent mate rial draining from both lungs. MRSA bacteremia anemia Acute septic shock, Acute leukocytosis secondary to above Morbid obesity Polysubstance abuse Hyponatremia Elevated LFTs Lactic acidosis Monitor vital signs Monitor CBC Monitor CMP Continue telemetry monitoring Continue vent management per ICU Aggressive bronchopulmonary hygiene Blood cultures growing MRSA, repeat blood cultures till clearence Sputum cultures ordered Continue IV cefepime, vancomycin Continue Levophed, weaning down Levophed Continue chest tube management per CT surgery, lytics instilled into the right chest tube on 11/24, no plan for surgical intervention Critical care following ID following Patient's very poor prognosis per multiple specialities Labs and medication were reviewed.. Continue same treatment. Continue with symptomatic treatment. Resume home medication. Monitor labs and vitals. DVT and GI prophylaxis. Further recommendations as per clinical course of the patient Dictation was produced using Method dictation software. please excuse any grammatical, word or spelling errors. Objective - Vital Signs Vital signs: Vital Signs Temp 100.4 F H 11/30/23 12:15 Pulse 120 H 11/30/23 13:30 Resp 24 11/30/23 13:30 BP 105/66 11/30/23 13:30 Pulse Ox 98 11/30/23 13:30 FiO2 50 11/30/23 12:15 Intake & Output 11/29/23 11/30/23 11/30/23 18:59 06:59 18:59 Intake Total 4642.996 5473.935 3290.568 Output Total 1155 1365 1490 Balance 3487.996 178.464 -247.432 Weight 122 kg Intake: IV 3306 643 691 .9 kvo 70 110 70 Lactated Ringers 1,000 ml 1200 600 @ 100 mls/hr IV .Q10H [facility] Rx#:[id number] Pressure bag 36 33 21 Sodium Chloride 0.9% 1, 1000 000 ml @ 999 mls/hr IV . Q1H1M [facility] Rx#:[id number] Vancomycin 1,750 mg In 1000 500 Sodium Chloride 0.9% 500 ml 500 ml @ 167 mls/hr IVPB Q12H [facility] Rx#: [id number] Intake, IV Titration 404.996 312.464 183.568 Amount Midazolam HCl 50 mg In 20.8 Sodium Chloride 0.9% 40 ml @ 1 MG/HR 1 mls/hr IV .Q24H [facility] Rx#:[id number] Norepinephrine 32 mg In 10.462 67.637 3.548 Sodium Chloride 0.9% 218 ml @ 0.03 MCG/KG/MIN 1. 403 mls/hr IV .Q24H [facility] Rx#:[id number] fentaNYL (PF). 1,000 mcg 192.306 72.68 96.796 In Sodium Chloride 0.9% 80 ml @ 0.5 MCG/KG/HR 4. 99 mls/hr IV .Q20H3M [facility] Rx#:[id number] propofoL 1,000 mg In 181.428 172.147 83.224 Empty Bag 1 bag @ 15 MCG/ KG/MIN 8.981 mls/hr IV . Q11H9M [facility] Rx#:[id number] Tube Feeding 532 528 308 Blood Product 310 Rc As-1 Unit 310 [id number] Other 90 60 60 Output: Chest Tube Drainage 150 120 90 Chest Tube 100 80 70 Chest Tube Right 50 40 20 Urine 1005 1245 1400 Other: Voiding Method Indwelling Catheter Indwelling Catheter Indwelling Catheter # Voids 175 ABP, PAP, CO, CI - Last Documented Arterial Blood Pressure 115/42 - Labs CBC & Chem 7: 11/30/23 08:21 11/30/23 08:21 Labs: Abnormal Lab Results - Last 24 Hours (Table) 11/29/23 11/29/23 11/30/23 Range/Units 06:08 14:47 00:30 WBC 27.8 H (3.8-10.6) k/uL RBC 2.58 L (3.80-5.40) m/uL Hgb 7.6 L (11.4-16.0) gm/dL Hct 23.6 L (34.0-46.0) % ABG pCO2 (35-45) mmHg ABG pO2 (83-108) mmHg ABG HCO3 (21-25) mmol/L ABG Total CO2 (19-24) mmol/L Sodium (137-145) mmol/L Creatinine (0.52-1.04) mg/dL Glucose (74-99) mg/dL POC Glucose (mg/dL) 130 H (70-110) mg/dL Calcium (8.4-10.2) mg/dL Iron 7 L (50-170) UG/DL TIBC 119 L (228-460) UG/DL % Saturation 5.88 L (12.00-45.00) Transferrin 84.8 L (204.0-354.0) mg/dL Ferritin 1143.0 H (10.0-291.0) ng/mL 11/30/23 11/30/23 11/30/23 Range/Units 06:19 06:54 08:21 WBC 25.8 H (3.8-10.6) k/uL RBC 2.51 L (3.80-5.40) m/uL Hgb 7.4 L (11.4-16.0) gm/dL Hct 23.8 L (34.0-46.0) % ABG pCO2 48 H (35-45) mmHg ABG pO2 78 L (83-108) mmHg ABG HCO3 30 H (21-25) mmol/L ABG Total CO2 31 H (19-24) mmol/L Sodium (137-145) mmol/L Creatinine (0.52-1.04) mg/dL Glucose (74-99) mg/dL POC Glucose (mg/dL) 136 H (70-110) mg/dL Calcium (8.4-10.2) mg/dL Iron (50-170) UG/DL TIBC (228-460) UG/DL % Saturation (12.00-45.00) Transferrin (204.0-354.0) mg/dL Ferritin (10.0-291.0) ng/mL 11/30/23 11/30/23 Range/Units 08:21 12:06 WBC (3.8-10.6) k/uL RBC (3.80-5.40) m/uL Hgb (11.4-16.0) gm/dL Hct (34.0-46.0) % ABG pCO2 (35-45) mmHg ABG pO2 (83-108) mmHg ABG HCO3 (21-25) mmol/L ABG Total CO2 (19-24) mmol/L Sodium 136 L (137-145) mmol/L Creatinine 0.39 L (0.52-1.04) mg/dL Glucose 126 H (74-99) mg/dL POC Glucose (mg/dL) 119 H (70-110) mg/dL Calcium 7.0 L (8.4-10.2) mg/dL Iron (50-170) UG/DL TIBC (228-460) UG/DL % Saturation (12.00-45.00) Transferrin (204.0-354.0) mg/dL Ferritin (10.0-291.0) ng/mL Microbiology - Last 24 Hours (Table) 11/27/23 09:40 Blood Culture - Preliminary Blood 11/26/23 12:30 Blood Culture - Preliminary Blood
[2023-11-30 18:40] LABS: Glucose,Whole Blood 106 mg/dL (70-110)
--- NOTE | 2023-11-30 19:36 | OP ---
OPERATIVE REPORT DATE OF SERVICE : PROCEDURE: Placement of a left radial arterial line. PREOPERATIVE DIAGNOSES: Septic shock, empyema. POSTOPERATIVE DIAGNOSES: Septic shock, empyema. ANESTHESIA USED: None deployed. DESCRIPTION OF PROCEDURE: The patient was placed in the supine position. The left wrist was prepared in a sterile fashion. Drapes were applied. The left radial artery was palpated, cannulated, and an Arrow catheter and needle were used. The left radial artery was cannulated easily, and then the catheter was advanced over the wire which was advanced out of the needle as soon as the artery was cannulated. Then, I was able to advance the catheter over the guidewire, and the guidewire was removed along with the proximal handle of the kit. Line was secured using 3.0 silk sutures, good waveform, no complications. Sterile dressing was applied. MMODL / IJN: [id number] /
[2023-11-30 23:17] LABS: Glucose,Whole Blood 117 mg/dL (70-110)
[2023-12-01 05:08] LABS: Basophils % (A) 0 %; Eosinophils # (A) 0.1 k/uL (0-0.7); Eosinophils % (A) 1 %; HCT 22.9 % (34.0-46.0); HGB 7.1 gm/dL (11.4-16.0); Hypochromasia Slight; Lymphocytes # (A) 0.8 k/uL (1.0-4.8); Lymphocytes % (A) 3 %; MCH 29.1 pg (25.0-35.0); MCHC 31.2 g/dL (31.0-37.0); MCV 93.2 fL (80.0-100.0); Mean Platelet Volume 9.2; Monocytes # (A) 0.4 k/uL (0-1.0); Monocytes % (A) 2 %; Neutrophils # (A) 22.7 k/uL (1.3-7.7); Neutrophils % (A) 94 %; Platelet Count 242 k/uL (150-450); RBC 2.45 m/uL (3.80-5.40); RDW 14.3 % (11.5-15.5); WBC 24.2 k/uL (3.8-10.6)
[2023-12-01 05:35] LABS: African American GFR (CKD) >90 (>60 ml/min/1.73 sqM); Anion Gap 1 mmol/L; Blood Urea Nitrogen 10 mg/dL (7-17); Calcium 7.1 mg/dL (8.4-10.2); Carbon Dioxide 31 mmol/L (22-30); Chloride 104 mmol/L (98-107); Glucose 122 mg/dL (74-99); Non-African American GFR(CKD) >90 (>60 ml/min/1.73 sqM); Potassium 3.2 mmol/L (3.5-5.1); Sodium 136 mmol/L (137-145)
[2023-12-01 05:37] LABS: ABG Base Excess 8.4 mmol/L; ABG HCO3 32 mmol/L (21-25); ABG Oxygen Saturation 98.9 % (94-97); ABG PCO2 44 mmHg (35-45); ABG PH 7.47 (7.35-7.45); ABG PO2 100 mmHg (83-108); ABG TCO2 33 mmol/L (19-24); Allen Test Performed? Yes
[2023-12-01 05:41] LABS: Glucose,Whole Blood 111 mg/dL (70-110)
[2023-12-01] MEDS: POTASSIUM BICARBONATE/CIT AC 20 MEQ TABLET.EFF NG-TUBE SCH (06:37)
--- NOTE | 2023-12-01 08:40 | XR ---
EXAMINATION TYPE: XR chest 1V portable DATE OF EXAM: 12/01/2023 Comparison: 11/30/2023 Clinical History: 43-year-old female mechanical ventilation Findings: ET and NG tubes are in place. Left CVC tip in the region of the upper mid SVC. The heart margins are entirely obscured by extensive pleural parenchymal opacity. Patchy and confluent bilateral diffuse ai rspace disease persists. Bilateral chest tubes. No appreciable pneumothorax. Impression: Continued diffuse bilateral airspace disease. This obscures the heart margins. Bilateral chest tubes remain in place.
[2023-12-01] MEDS: CISATRACURIUM 2 MG/ML 5 ML VIAL IV ONE (10:23)
--- NOTE | 2023-12-01 11:35 | P.PN ---
Subjective Progress Note Date: 12/01/23 Principal diagnosis: Respiratory failure. Reevaluate today on11/27/23, remains in the ICU, intubated and mechanically ventilated, on assist-control rate of 42 tidal volume 450 FiO2 60% PEEP of 5 ABG showed a pO2 of 72 pCO2 43 pH of 7.49. Patient remains fully sedated she is on fentanyl 1.5 mcg/kg/min she is also on Versed 3 mg/h. Propofol at 50 mcg/kg/min. Patient remains hemodynamically unstable requiring norepinephrine at 0.11 mcg/kg/min she is on vital HP at 16 mL/h. She is also on LR at 150 cc/h. Today I did not make any changes in her ventilator settings. Her chest x-ray is basically about the same continues to show right-sided pneumothorax but I do not see an air leak today on the right side but she does have an air leak on the left side and continues to have significant purulent drainage from the chest tube on the left side. 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 Not much of a change overnight, patient remains critically ill. Continues to have leukocytosis with WBC count of 28.2 hemoglobin 8.5 basic metabolic profile is normal and renal profile is normal Reevaluate today on 11/28/2023, remains in the ICU intubated and mechanically ventilated. Patient is on assist-control rate of 52 tidal volume 450 FiO2 60% PEEP of 5 ABG showed a pO2 of 73 pCO2 37 pH of 7.52 hence FiO2 was cut down to 55% and rate to cut down to 28. Patient continues to have bilateral chest tubes, the left-sided chest tube has ongoing continuous leak, right-sided chest tube has intermittent airleak. However the patient is maintaining her adequate tidal volumes which are about 450. Patient remains on propofol at 50 mcg/kg/min Versed 3 mg/h Fentanyl 1.5 mcg/kg/h patient is also receiving norepinephrine at 0.08 mcg/kg/min. Her IV fluid which is LR Down to 100 cc/h. She is on vital HP patient had a Tmax of 102.9 yesterday, cultures of blood and pleural effusion are positive for MRSA, patient remains on vancomycin. If the patient continues to have positive blood cultures in the next couple of days, may have to consider OSIRIS. The cultures from the are pending. Chest x-ray continues to show significant hydropneumothorax on the left side, and she has mostly hydrothorax on the right side. I could not appreciate a pneumothorax on the right side labs today showed leukocytosis with WBC of 23.1 hemoglobin 7.4, basic metabolic profile is normal renal profile is normal today on 11/29/2023 patient remains intubated and mechanically ventilated, she is on assist-control rate of 28 tidal volume 450 FiO2 55% PEEP of 5 ABG showed a pO2 of 94 pCO2 34 pH of 7.53, hence her vent settings were changed to cut down her rate to 26 cut down FiO2 to 50% And PEEP at 5. Patient's hemoglobin is low today at 6.8, and she will receive a unit of packed RBCs. Patient is being treated for MRSA pneumonia, bacteremia, and empyema. Remains on propofol at 30 mcg/kg/min Fentanyl 1 mcg/kg/h she is also on Versed which I will discontinue today 2 mg/h. Norepinephrine 0.02 mcg/kg/min and IV fluid 0.9 normal saline at 100 cc/h. Chest x-ray continues to show left-sided loculated pneumothorax, and she continues to have ongoing airleak from the left-sided chest tube. The right-sided chest tube seems to be occluded, hence we will ask thoracic surgery to flush the chest tube, and the patient has what seems to be a pleural effusion on the right side, drainage is serosanguineous. Considering the overall picture, the patient is again not quite ready for any weaning, however over the next couple of days as we cut down on sedation, may start waking the patient up and give the patient weaning trials if possible. At this point she remains quite ill, and I doubt if she will tolerate any form of weaning her FiO2 just dropped down from 55 to 50%., Continues to have leukocytosis but improving WBC count is 24.7 hemoglobin 6.8 and she will receive a unit of packed RBCs. Basic metabolic profile is normal renal profile is normal and urine output is excellent Patient was reexamined today on 11/30/2023, remains intubated and mechanically ventilated, remains on vancomycin, patient is on assist-control rate of 24 tidal volume 450 FiO2 50% and PEEP of 5 ABG showed a pO2 of 78 pCO2 48 pH of 7.40 hence no changes were made in vent settings. Chest x-ray showed significant bilateral airspace disease loculated left-sided pneumothorax no clear-cut evidence of pneumothorax on the right. Chest x-ray is also suggestive of interstitial edema/infiltrates, hence the patient will be given a trial of diuresis. Hemoglobin is down to 7.4, patient did receive 1 unit of packed RBCs: WBC count remains high at 25.8 but steadily improving. Patient continues to have air leak in the left side chest tube, but no airleak noted in the right- sided chest tube. Drips bautista the patient is on fentanyl at 1 mcg/kg/h IV fluid LR at 100 cc/h norepinephrine at 0.04 mcg/kg/min propofol at 30 mcg/kg/min vital HP at 44/44. Patient did receive 20 mg of Lasix earlier while on rounds. Her arterial line went and nonfunctional, hence a new arterial line was placed in the left radial artery. Father called about his daughter, and I discussed her condition over the phone with her father and updated him on the situation. He is aware that she is critically ill, and at this point prognosis is relatively guarded. Progress note dated December 01, 2023. This is a 43-year-old female who was admitted on November 22. The patient came in with bilateral pneumonia and empyema. She was intubated for respiratory failure on November 23. Sampling has revealed evidence of methicillin-resistant Staph aureus. She remains on the ventilator. Ventilator settings include volume assist-control, rate 24, tidal volume 450, FiO2 50%, PEEP of 5. Blood gases show pO2 100, pCO2 of 44, pH is 7.47. The patient remains on propofol at 30 mcg/kg/min, fentanyl at 1 mcg/kg/h, lactated Ringer's at 100 cc an hour, and vital AF at 44 cc an hour, which is goal. The patient does continue on vancomycin for her MRSA infection. Current laboratory data includes a white count 24.2, hemoglobin 7.1, hematocrit 22.9, and platelet count 242,000. Sodium 136, potassium 3.2, chlorides 104, CO2 31, BUN 10, creatinine 0.39. Glucose is 111. Calcium is 7.1. Nasal swabs, sputum, blood, wound culture, and pleural fluid, are all consistent with methicillin-resistant Staph aureus. Chest x-ray shows continued bilateral diffuse airspace disease. Bilateral pleural catheters are seen. Objective - Vital Signs Vital signs: Vital Signs Temp 99.4 F 12/01/23 04:00 Pulse 122 H 12/01/23 08:36 Resp 26 H 12/01/23 07:00 BP 106/66 12/01/23 07:00 Pulse Ox 99 12/01/23 07:00 FiO2 50 12/01/23 08:25 Intake & Output 11/30/23 12/01/23 12/01/23 18:59 06:59 18:59 Intake Total 2098.767 2676.471 217.052 Output Total 1960 1095 135 Balance 040.717 9894.471 82.052 Weight 126.9 kg 126.9 kg Intake: IV 1246 1736 103 .9 kvo 110 Lactated Ringers 1,000 ml 1100 1200 100 @ 100 mls/hr IV .Q10H [facility] Rx#:[id number] Pressure bag 36 36 3 Vancomycin 1,750 mg In 500 Sodium Chloride 0.9% 500 ml 500 ml @ 167 mls/hr IVPB Q12H [facility] Rx#: [id number] Intake, IV Titration 278.767 382.471 70.052 Amount Norepinephrine 32 mg In 3.548 Sodium Chloride 0.9% 218 ml @ 0.03 MCG/KG/MIN 1. 403 mls/hr IV .Q24H [facility] Rx#:[id number] fentaNYL (PF). 1,000 mcg 96.796 191.763 In Sodium Chloride 0.9% 80 ml @ 0.5 MCG/KG/HR 4. 99 mls/hr IV .Q20H3M [facility] Rx#:[id number] propofoL 1,000 mg In 178.423 190.708 70.052 Empty Bag 1 bag @ 15 MCG/ KG/MIN 8.981 mls/hr IV . Q11H9M [facility] Rx#:[id number] Tube Feeding 484 528 44 Other 90 30 Output: Chest Tube Drainage 130 70 70 Chest Tube 110 60 60 Chest Tube Right 20 10 10 Urine 1830 1025 65 Other: Voiding Method Indwelling Catheter Indwelling Catheter # Voids 175 ABP, PAP, CO, CI - Last Documented Arterial Blood Pressure 87/75 - Exam No acute distress, sedated, with an orally placed endotracheal tube. HEENT examination is grossly unremarkable. Neck supple. Full range of motion. No adenopathy thyromegaly or neck vein distention. Cardiovascular examination reveals regular rhythm rate. S1-S2 normal. No S3 or S4. No discernible murmur noted. Heart rate 122 bpm. Lungs reveal bilateral coarse rhonchi. No wheezes or crackles. Breath sounds equal. Saturations are in the high 90s. Abdomen soft, with bowel sounds. No masses. Abdomen obese. Extremities are intact. No cyanosis clubbing or edema. Skin is without rash or lesion. Neurologic examination cannot be assessed at this time. - Labs CBC & Chem 7: 12/01/23 04:43 12/01/23 04:43 Labs: Abnormal Lab Results - Last 24 Hours (Table) 11/30/23 11/30/23 12/01/23 Range/Units 12:06 23:16 04:43 WBC 24.2 H (3.8-10.6) k/uL RBC 2.45 L (3.80-5.40) m/uL Hgb 7.1 L (11.4-16.0) gm/dL Hct 22.9 L (34.0-46.0) % Neutrophils # 22.7 H (1.3-7.7) k/uL Lymphocytes # 0.8 L (1.0-4.8) k/uL ABG pH (7.35-7.45) ABG HCO3 (21-25) mmol/L ABG Total CO2 (19-24) mmol/L ABG O2 Saturation (94-97) % Sodium (137-145) mmol/L Potassium (3.5-5.1) mmol/L Carbon Dioxide (22-30) mmol/L Creatinine (0.52-1.04) mg/dL Glucose (74-99) mg/dL POC Glucose (mg/dL) 119 H 117 H (70-110) mg/dL Calcium (8.4-10.2) mg/dL 12/01/23 12/01/23 12/01/23 Range/Units 04:43 05:35 05:40 WBC (3.8-10.6) k/uL RBC (3.80-5.40) m/uL Hgb (11.4-16.0) gm/dL Hct (34.0-46.0) % Neutrophils # (1.3-7.7) k/uL Lymphocytes # (1.0-4.8) k/uL ABG pH 7.47 H (7.35-7.45) ABG HCO3 32 H (21-25) mmol/L ABG Total CO2 33 H (19-24) mmol/L ABG O2 Saturation 98.9 H (94-97) % Sodium 136 L (137-145) mmol/L Potassium 3.2 L (3.5-5.1) mmol/L Carbon Dioxide 31 H (22-30) mmol/L Creatinine 0.39 L (0.52-1.04) mg/dL Glucose 122 H (74-99) mg/dL POC Glucose (mg/dL) 111 H (70-110) mg/dL Calcium 7.1 L (8.4-10.2) mg/dL Microbiology - Last 24 Hours (Table) 11/27/23 09:40 Blood Culture - Preliminary Blood Assessment and Plan Assessment: Acute hypoxemic respiratory failure,S/P intubation and mechanical ventilation on November 23. Acute bilateral methicillin-resistant Staph aureus pneumonia, with empyema, and hydropneumothorax. S/P bilateral chest tube placement. Acute sepsis with septic shock. History of polysubstance abuse. History of multiple sclerosis. History of anxiety/depression. History of interstitial cystitis and urinary tract infection. Fibromyalgia. Chronic pain syndrome. History of seizure disorder. Degenerative joint disease. Morbid obesity. Essential hypertension. Plan: Plan dated December 01, 2023. We did speak to Dr. Royal about this patient. He feels that any additional surgical intervention, is not warranted at this time. Labs, x-rays, medications are reviewed. The patient will likely end up with a tracheostomy. Dr. Royal is willing to do it. In addition, we will ask our surgical colleagues, for PEG tube placement. The patient continues on propofol, fentanyl, and lactated Ringer's. She continues on vancomycin for her infection. Labs, x-rays, medications are all reviewed. The patient's overall prognosis remains very guarded. We will continue to follow the patient, make recommendations. Time with Patient: Greater than 30
[2023-12-01 11:56] LABS: Glucose,Whole Blood 120 mg/dL (70-110)
--- NOTE | 2023-12-01 12:57 | PCN ---
PROCEDURE NOTE PROCEDURE PERFORMED: Right femoral art line. PREOPERATIVE DIAGNOSIS: Hypotension, frequent blood draws, blood gas monitoring. POSTOPERATIVE DIAGNOSIS: Hypotension, frequent blood draws, blood gas monitoring. LAUNDRY OPERATOR: Dr. Drake. [employer] 1 6 TUTOR: Dr. Deborah Swain. A time-out was completed verifying correct patient, procedure, site, positioning, and implant or special equipment if applicable. DESCRIPTION OF PROCEDURE: There was informed consent and universal timeout. The patient's procedure took place in room 254. Clay's test was performed to ensure adequate perfusion. The patient's right groin was prepped and draped in sterile fashion. 1% Lidocaine was used to anesthetize the area. An 18G Arrow arterial line was introduced into the femoral artery. The catheter was threaded over the guide wire and the needle was removed with appropriate pulsatile blood return. Blood loss was minimal. The catheter was then sutured in place to the skin and a sterile dressing applied. Perfusion to the extremity distal to the point of catheter insertion was checked and found to be adequate. There were no immediate complications. There was good waveform and blood pressure reading. The catheter was sutured in place. A sterile dressing was applied by the nurse. There was no immediate complication. The patient tolerated the procedure well and there were no complications. MMODL / IJN: [id number] /
--- NOTE | 2023-12-01 15:37 | P.GSCN ---
History of Present Illness Consult date: 12/01/23 History of present illness: CHIEF COMPLAINT: Respiratory failure HISTORY OF PRESENT ILLNESS: This is a 43-year-old female who is presenting from the local intermediate with chest pain and dyspnea. Patient with acute hypoxic respiratory failure requiring to be intubated and on mechanical ventilation since November 23. She was found to have MRSA pneumonia with empyema and hydro pneumothorax. She has bilateral chest tubes in place. Dr. Royal will be placing patient's tracheostomy tube. Surgical consult placed for PEG tube placement. Patient has been having fevers and tachycardic. PAST MEDICAL HISTORY: Asthma, Fibromyalgia, GERD/Reflux, Hypertension, Musculoskeletal Disorder, Neurologic Disorder, Pneumonia, Seizure Disorder, Multiple Sclerosis, angina, migraines, DJD, interstitial cystitis, UTI, PCOS, vit D deficiency, bilateral optic neuritis with visual problems, generalized chronic pain, numbness/tingling bilateral lower legs, tachycardia, c-diff 5-9-16, seizures from MS last one around 2016. ADHD. PAST [employer]ER HISTORY: She has no history of STDs. PCOS. MS, an xiety, bipolar, depression PAST SURGICAL HISTORY: Cholecystectomy MEDICATIONS: See below ALLERGIES: See below SOCIAL HISTORY: No illicit drug use. REVIEW OF SYSTEMS: Unable to obtain. Patient intubated and sedated PHYSICAL EXAM: VITAL SIGNS: Reviewed GENERAL: no acute distress. Intubated and sedated HEENT: No sclera icterus. Moist buccal mucosa. Head is atraumatic, normocephalic. No nasal drainage. ABDOMEN: Soft. Nondistended. Nondistended LABORATORY DATA: WBC 24.2 Hgb 7.1 platelets 242 Sodium 136 potassium 3.2 creatinine 0.39 Albumin 2.8 IMAGING: ASSESSMENT: 1. Severe protein calorie malnutrition 2. Respiratory failure with MRSA pneumonia, empyema and hydropneumothorax status post chest tube placement bilaterally 3. Hypokalemia PLAN: -Patient scheduled for PEG tube placement tomorrow with Dr. Johnson -Hold tube feedings after midnight -Hold lovenox in AM -Potassium has been corrected. Repeat potassium level in a.m. Physician Card Stripper note has been reviewed by physician. Signing provider agrees with the documented findings, assessment, and plan of care. Past Medical History Past Medical History: No Reported History, Asthma, Fibromyalgia, GERD/Reflux, Hypertension, Musculoskeletal Disorder, Neurologic Disorder, Pneumonia, Seizure Disorder Additional Past Medical History / Comment(s): Multiple Sclerosis, angina, migraines, DJD, interstitial cystitis, UTI, PCOS, vit D deficiency, bilateral optic neuritis with visual problems, generalized chronic pain, numbness/tingling bilateral lower legs, tachycardia, c-diff 5-9-16, seizures from MS last one around 2017. ADHD. PAST [employer] AS[employer]ER HISTORY: She has no history of STDs. PCOS. MS History of Any Multi-Drug Resistant Organisms: MRSA Year Discovered:: 11/23/23 MDRO Source:: Blood and Chest Past Surgical History: Cholecystectomy, Orthopedic Surgery Additional Past Surgical History / Comment(s): Lt shoulder rotator cuff repair 06/06/14, arthroscopic left knee 2000 & 2002, left shoulder reconstruction Past Anesthesia/Blood Transfusion Reactions: No Reported Reaction Additional Past Anesthesia/Blood Transfusion Reaction / Comm: Pt has never recieved blood. Past Psychological History: Anxiety, Bipolar, Depression Smoking Status: Never smoker Past Alcohol Use History: Rare Past Drug Use History: Cocaine, Heroin, Marijuana - Past Family History Mother Family Medical History: No Reported History Additional Family Medical History / Comment(s): mother is healthy. Maternal gra ndmother had uterine cancer. Maternal grandfather had bladder cancer. Father Family Medical History: Hypertension Additional Family Medical History / Comment(s): Paternal grandfather had an ME. Medications and Allergies Home Medications Medication Instructions Recorded Confirmed Type Acetaminophen [Tylenol] 975 mg PO BID PRN 11/23/23 11/23/23 History Baclofen [Lioresal] 10 mg PO BID PRN 11/23/23 11/23/23 History FLUoxetine HCL [PROzac] 20 mg PO DAILY 11/23/23 11/23/23 History Loratadine [Claritin] 10 mg PO DAILY 11/23/23 11/23/23 History hydrOXYzine pamoate [Vistaril] 50 mg PO BID 11/23/23 11/23/23 History lisinopriL [Zestril] 10 mg PO DAILY 11/23/23 11/23/23 History Allergies Allergy/AdvReac Type Severity Reaction Status Date / Time amoxicillin [Amoxicillin] Allergy Severe Anaphylaxis, Verified 11/23/23 19:47 seizures ciprofloxacin [From Cipro] Allergy Severe Rash/Hives, Verified 11/23/23 19:47 seizures codeine phosphate Allergy Unknown Rash/Hives Verified 11/23/23 19:47 [From Tylenol-Codeine #3] bee venom protein (honey bee) Allergy Anaphylaxis Verified 11/23/23 19:47 cefuroxime axetil Allergy Rash/Hives Verified 11/23/23 19:47 [From Ceftin] gabapentin [From Neurontin] Allergy Swelling Verified 11/23/23 19:47 ketorolac [From Toradol] Allergy Rash/Hives Verified 11/23/23 19:47 latex Allergy Rash/Hives Verified 11/23/23 19:47 NSAIDS (Non-Steroidal Allergy Rash/Hives/Lip Verified 11/23/23 19:47 Anti-Inflamma Swelling sulfamethoxazole Allergy Itching Verified 11/23/23 19:47 [From Bactrim] trimethoprim [From Bactrim] Allergy Itching Verified 11/23/23 19:47 Surgical - Exam Vital Signs Temp Pulse Resp BP Pulse Ox 101.4 F H 155 H 30 H 122/87 100 11/23/23 18:55 11/23/23 18:55 11/23/23 18:55 11/23/23 18:55 11/23/23 18:55 Results - Labs 12/01/23 04:43 12/01/23 04:43 Abnormal Lab Results - Last 24 Hours (Table) 11/30/23 12/01/23 12/01/23 Range/Units 23:16 04:43 04:43 WBC 24.2 H (3.8-10.6) k/uL RBC 2.45 L (3.80-5.40) m/uL Hgb 7.1 L (11.4-16.0) gm/dL Hct 22.9 L (34.0-46.0) % Neutrophils # 22.7 H (1.3-7.7) k/uL Lymphocytes # 0.8 L (1.0-4.8) k/uL ABG pH (7.35-7.45) ABG HCO3 (21-25) mmol/L ABG Total CO2 (19-24) mmol/L ABG O2 Saturation (94-97) % Sodium 136 L (137-145) mmol/L Potassium 3.2 L (3.5-5.1) mmol/L Carbon Dioxide 31 H (22-30) mmol/L Creatinine 0.39 L (0.52-1.04) mg/dL Glucose 122 H (74-99) mg/dL POC Glucose (mg/dL) 117 H (70-110) mg/dL Calcium 7.1 L (8.4-10.2) mg/dL 12/01/23 12/01/23 12/01/23 Range/Units 05:35 05:40 11:55 WBC (3.8-10.6) k/uL RBC (3.80-5.40) m/uL Hgb (11.4-16.0) gm/dL Hct (34.0-46.0) % Neutrophils # (1.3-7.7) k/uL Lymphocytes # (1.0-4.8) k/uL ABG pH 7.47 H (7.35-7.45) ABG HCO3 32 H (21-25) mmol/L ABG Total CO2 33 H (19-24) mmol/L ABG O2 Saturation 98.9 H (94-97) % Sodium (137-145) mmol/L Potassium (3.5-5.1) mmol/L Carbon Dioxide (22-30) mmol/L Creatinine (0.52-1.04) mg/dL Glucose (74-99) mg/dL POC Glucose (mg/dL) 111 H 120 H (70-110) mg/dL Calcium (8.4-10.2) mg/dL Microbiology - Last 24 Hours (Table) 11/27/23 09:40 Blood Culture - Preliminary Blood Diabetes panel 12/01/23 Range/Units 04:43 Sodium 136 L (137-145) mmol/L Potassium 3.2 L (3.5-5.1) mmol/L Chloride 104 (98-107) mmol/L Carbon Dioxide 31 H (22-30) mmol/L BUN 10 (7-17) mg/dL Creatinine 0.39 L (0.52-1.04) mg/dL Glucose 122 H (74-99) mg/dL Calcium 7.1 L (8.4-10.2) mg/dL Calcium panel 12/01/23 Range/Units 04:43 Calcium 7.1 L (8.4-10.2) mg/dL Pituitary panel 12/01/23 Range/Units 04:43 Sodium 136 L (137-145) mmol/L Potassium 3.2 L (3.5-5.1) mmol/L Chloride 104 (98-107) mmol/L Carbon Dioxide 31 H (22-30) mmol/L BUN 10 (7-17) mg/dL Creatinine 0.39 L (0.52-1.04) mg/dL Glucose 122 H (74-99) mg/dL Calcium 7.1 L (8.4-10.2) mg/dL Adrenal panel 12/01/23 Range/Units 04:43 Sodium 136 L (137-145) mmol/L Potassium 3.2 L (3.5-5.1) mmol/L Chloride 104 (98-107) mmol/L Carbon Dioxide 31 H (22-30) mmol/L BUN 10 (7-17) mg/dL Creatinine 0.39 L (0.52-1.04) mg/dL Glucose 122 H (74-99) mg/dL Calcium 7.1 L (8.4-10.2) mg/dL
[2023-12-01 17:53] LABS: Glucose,Whole Blood 125 mg/dL (70-110)
[2023-12-01] MEDS: POTASSIUM CHLORIDE 20 MEQ in WATER FOR INJECTION 1 100ML.BAG IVPB SCH (18:47)
--- NOTE | 2023-12-01 20:10 | P.PN ---
Subjective Progress Note Date: 12/01/23 This is a 43 year old female evaluated today in the intensive care unit. Patient is currently sedated and remains on the mechanical ventilator. Presents from the long term with shortness of breath and cough. Patient found to have bilateral pneumothorax and continues currently with right and left sided chest tubes. Chest xray today reveals continued diffuse bilateral airspace disease with extensive pleural parenchymal opacity. Continues on IV vancomycin due to MRSA bacteremia. White blood cell count today 24.2, hgb 7.1. Sodium 136, potassium 3.4. Remains on IV fentanyl, IV versed, IV propofol. Being considered from tracheostomy and PEG tube placement. Remains febrile with T-max 101.4 overnight. Unable to complete a review of systems as patient is currently intubated and sedated on the mechanical ventilator PHYSICAL EXAMINATION: GENERAL: The patient is alert and oriented x0, not in any acute distress. Intubated and sedated. Well developed, well nourished. Sedated. HEENT: Pupils are round and equally reacting to light. EOMI. No scleral icterus. No conjunctival pallor. Normocephalic, atraumatic. No pharyngeal erythema. No thyromegaly. CARDIOVASCULAR: S1 and S2 present. No murmurs, rubs, or gallops. PULMONARY: Chest is clear to auscultation, no wheezing or crackles. ABDOMEN: Soft, nontender, nondistended, normoactive bowel sounds. No palpable organomegaly. MUSCULOSKELETAL: No joint swelling or deformity. EXTREMITIES: No cyanosis, clubbing, or pedal edema. NEUROLOGICAL: Unable to asses pt is sedated SKIN: No rashes. Assessment and plan Acute hypoxic respiratory failure requiring mechanical ventilation. Acute bilateral pneumonia complicated by bilateral pneumothoraces. Acute bilateral empyema, post bilateral chest tube insertion with purulent material draining from both lungs. MRSA bacteremia Anemia with iron studies revealing underlying iron deficiency. Acute septic shock, Acute leukocytosis secondary to above Morbid obesity Polysubstance abuse Hyponatremia Elevated LFTs Lactic acidosis GI prophylaxis DVT prophylaxis Lovenox Full Code Repeat labs in the AM, replace potassium. Continue with enteral feedings with vital high protein at goal. Continue telemetry monitoring Continue vent management per ICU Aggressive bronchopulmonary hygiene Blood cultures growing MRSA, repeat blood cultures till clearance continue with IV vancomycin per ID Currently weaned off vasopressor support. Continue chest tube management per CT surgery, lytics instilled into the right chest tube on 11/24, no plan for surgical intervention Critical care following ID following Patient's very poor prognosis per multiple specialities General surgery has been consulted, patient is being considered from trach/peg tube placement. The impression and plan of care has been dictated by Chelsea Garcia, Nurse Practitioner as directed. Dr. Darrell MD I have performed a history and physical examination and medical decision making of this patient, discussed the same with the dictator, and agree with the dictators assessment and plan as written, documented as a scribe. Based on total visit time, I have performed more than 50% of this visit. Objective - Vital Signs Vital signs: Vital Signs Temp 100.2 F H 12/01/23 16:00 Pulse 111 H 12/01/23 19:00 Resp 24 12/01/23 19:00 BP 98/54 12/01/23 16:00 Pulse Ox 96 12/01/23 19:00 FiO2 60 12/01/23 16:00 Intake & Output 12/01/23 12/01/23 12/02/23 06:59 18:59 06:59 Intake Total 2676.471 2127.070 203 Output Total 1095 885 100 Balance 3668.323 4108.070 103 Weight 126.9 kg 126.9 kg Intake: IV 1736 1236 103 Lactated Ringers 1,000 ml 1200 1200 100 @ 100 mls/hr IV .Q10H [facility] Rx#:[id number] Pressure bag 36 36 3 Vancomycin 1,750 mg In 500 Sodium Chloride 0.9% 500 ml 500 ml @ 167 mls/hr IVPB Q12H [facility] Rx#: [id number] Intake, IV Titration 382.471 847.070 100 Amount Potassium Chloride 20 meq 100 In Water For Injection 1 100ml.bag @ 50 mls/hr IVPB Q2H [facility] Rx#: [id number] Vancomycin 2,000 mg In 500 Sodium Chloride 0.9% 500 ml 500 ml @ 167 mls/hr IVPB Q8H [facility] Rx#: [id number] fentaNYL (PF). 1,000 mcg 191.763 93.304 In Sodium Chloride 0.9% 80 ml @ 0.5 MCG/KG/HR 4. 99 mls/hr IV .Q20H3M [facility] Rx#:[id number] propofoL 1,000 mg In 190.708 253.766 Empty Bag 1 bag @ 15 MCG/ KG/MIN 8.981 mls/hr IV . Q11H9M [facility] Rx#:[id number] Tube Feeding 528 44 Other 30 Output: Chest Tube Drainage 70 70 Chest Tube 60 60 Chest Tube Right 10 10 Urine 1025 815 100 Other: Voiding Method Indwelling Catheter Indwelling Catheter # Bowel Movements 1 ABP, PAP, CO, CI - Last Documented Arterial Blood Pressure 112/49 - Labs CBC & Chem 7: 12/01/23 04:43 12/01/23 16:33 Labs: Abnormal Lab Results - Last 24 Hours (Table) 11/30/23 12/01/23 12/01/23 Range/Units 23:16 04:43 04:43 WBC 24.2 H (3.8-10.6) k/uL RBC 2.45 L (3.80-5.40) m/uL Hgb 7.1 L (11.4-16.0) gm/dL Hct 22.9 L (34.0-46.0) % Neutrophils # 22.7 H (1.3-7.7) k/uL Lymphocytes # 0.8 L (1.0-4.8) k/uL ABG pH (7.35-7.45) ABG HCO3 (21-25) mmol/L ABG Total CO2 (19-24) mmol/L ABG O2 Saturation (94-97) % Sodium 136 L (137-145) mmol/L Potassium 3.2 L (3.5-5.1) mmol/L Carbon Dioxide 31 H (22-30) mmol/L Creatinine 0.39 L (0.52-1.04) mg/dL Glucose 122 H (74-99) mg/dL POC Glucose (mg/dL) 117 H (70-110) mg/dL Calcium 7.1 L (8.4-10.2) mg/dL 12/01/23 12/01/23 12/01/23 Range/Units 05:35 05:40 11:55 WBC (3.8-10.6) k/uL RBC (3.80-5.40) m/uL Hgb (11.4-16.0) gm/dL Hct (34.0-46.0) % Neutrophils # (1.3-7.7) k/uL Lymphocytes # (1.0-4.8) k/uL ABG pH 7.47 H (7.35-7.45) ABG HCO3 32 H (21-25) mmol/L ABG Total CO2 33 H (19-24) mmol/L ABG O2 Saturation 98.9 H (94-97) % Sodium (137-145) mmol/L Potassium (3.5-5.1) mmol/L Carbon Dioxide (22-30) mmol/L Creatinine (0.52-1.04) mg/dL Glucose (74-99) mg/dL POC Glucose (mg/dL) 111 H 120 H (70-110) mg/dL Calcium (8.4-10.2) mg/dL 12/01/23 12/01/23 Range/Units 16:33 17:52 WBC (3.8-10.6) k/uL RBC (3.80-5.40) m/uL Hgb (11.4-16.0) gm/dL Hct (34.0-46.0) % Neutrophils # (1.3-7.7) k/uL Lymphocytes # (1.0-4.8) k/uL ABG pH (7.35-7.45) ABG HCO3 (21-25) mmol/L ABG Total CO2 (19-24) mmol/L ABG O2 Saturation (94-97) % Sodium (137-145) mmol/L Potassium 3.4 L (3.5-5.1) mmol/L Carbon Dioxide (22-30) mmol/L Creatinine (0.52-1.04) mg/dL Glucose (74-99) mg/dL POC Glucose (mg/dL) 125 H (70-110) mg/dL Calcium (8.4-10.2) mg/dL Microbiology - Last 24 Hours (Table) 11/27/23 09:40 Blood Culture - Preliminary Blood Assessment and Plan Time with Patient: Less than 30
[2023-12-01 23:34] LABS: Glucose,Whole Blood 120 mg/dL (70-110)
[2023-12-02 05:46] LABS: Glucose,Whole Blood 95 mg/dL (70-110)
[2023-12-02 05:49] LABS: Basophils % (A) 0 %; Eosinophils # (A) 0.1 k/uL (0-0.7); Eosinophils % (A) 1 %; HCT 20.1 % (34.0-46.0); Hypochromasia Slight; Lymphocytes # (A) 1.1 k/uL (1.0-4.8); Lymphocytes % (A) 5 %; MCH 29.3 pg (25.0-35.0); MCHC 31.7 g/dL (31.0-37.0); MCV 92.6 fL (80.0-100.0); Mean Platelet Volume 9.1; Monocytes # (A) 0.4 k/uL (0-1.0); Monocytes % (A) 2 %; Neutrophils # (A) 18.7 k/uL (1.3-7.7); Neutrophils % (A) 92 %; Platelet Count 291 k/uL (150-450); RBC 2.17 m/uL (3.80-5.40); RDW 14.3 % (11.5-15.5); WBC 20.4 k/uL (3.8-10.6)
[2023-12-02 05:54] LABS: HGB 6.4 gm/dL (11.4-16.0)
[2023-12-02 06:04] LABS: African American GFR (CKD) >90 (>60 ml/min/1.73 sqM); Anion Gap 2 mmol/L; Blood Urea Nitrogen 10 mg/dL (7-17); Calcium 7.1 mg/dL (8.4-10.2); Carbon Dioxide 31 mmol/L (22-30); Chloride 105 mmol/L (98-107); Glucose 89 mg/dL (74-99); Non-African American GFR(CKD) >90 (>60 ml/min/1.73 sqM); Potassium 3.7 mmol/L (3.5-5.1); Sodium 138 mmol/L (137-145)
[2023-12-02 06:19] LABS: ABG Base Excess 9.5 mmol/L; ABG HCO3 33 mmol/L (21-25); ABG Oxygen Saturation 96.8 % (94-97); ABG PCO2 46 mmHg (35-45); ABG PH 7.47 (7.35-7.45); ABG PO2 73 mmHg (83-108); ABG TCO2 35 mmol/L (19-24); Allen Test Performed? Yes
--- NOTE | 2023-12-02 08:20 | P.PN ---
Subjective Progress Note Date: 12/02/23 Principal diagnosis: Acute hypoxic respiratory failure requiring mechanical ventilation, bilateral hydropneumothoraces, empyema, status post bilateral chest tube insertion, septic shock. History of MS, obesity, migraines, seizures, fibromyalgia, hypertension, asthma, anxiety/depression/bipolar disorder, polysubstance abuse The patient was seen and examined with Dr. Royal this morning laying in bed in the intensive care unit, remains sedated and mechanically ventilated. No further lytics have been instilled. Right pleural chest tube has had no output, left pleural chest tube put out 100 mL purulent drainage overnight. Patient does have MRSA in her blood, thoracic fluid, sputum, and nasal swab, current preliminary blood cultures from 11/25 and 11/26 are negative. Remains on IV Vanco, WBC trending down this morning, 20.4 today from 24.2 yesterday, Tmax for the last 24 hours 101.4 F. Hemoglobin 6.4 from 7.1 yesterday. Remains sedated with propofol, off pressors. Planned for PEG tube insertion today and tracheostomy on Friday. Objective - Vital Signs Vital signs: Vital Signs Temp 99.4 F 12/02/23 04:00 Pulse 86 12/02/23 07:58 Resp 25 H 12/02/23 07:00 BP 99/57 12/02/23 06:00 Pulse Ox 94 L 12/02/23 07:00 FiO2 50 12/02/23 08:04 Intake & Output 12/01/23 12/02/23 12/02/23 18:59 06:59 18:59 Intake Total 2127.070 1606.228 103 Output Total 885 1145 70 Balance 1242.070 461.228 33 Weight 126.9 kg 127.8 kg Intake: IV 1236 1236 103 Lactated Ringers 1,000 ml 1200 1200 100 @ 100 mls/hr IV .Q10H [facility] Rx#:[id number] Pressure bag 36 36 3 Intake, IV Titration 847.070 370.228 Amount Potassium Chloride 20 meq 100 In Water For Injection 1 100ml.bag @ 50 mls/hr IVPB Q2H [facility] Rx#: [id number] Vancomycin 2,000 mg In 500 Sodium Chloride 0.9% 500 ml 500 ml @ 167 mls/hr IVPB Q8H [facility] Rx#: [id number] fentaNYL (PF). 1,000 mcg 93.304 170.228 In Sodium Chloride 0.9% 80 ml @ 0.5 MCG/KG/HR 4. 99 mls/hr IV .Q20H3M [facility] Rx#:[id number] propofoL 1,000 mg In 253.766 100 Empty Bag 1 bag @ 15 MCG/ KG/MIN 8.981 mls/hr IV . Q11H9M [facility] Rx#:[id number] Oral 0 Tube Feeding 44 0 Output: Chest Tube Drainage 70 120 Chest Tube 60 115 Chest Tube Right 10 5 Urine 815 1025 70 Other: Voiding Method Indwelling Catheter Indwelling Catheter # Bowel Movements 1 1 ABP, PAP, CO, CI - Last Documented Arterial Blood Pressure 119/52 - Exam CONSTITUTIONAL: Currently sedated on mechanical ventilation, laying in bed in the intensive care unit RESPIRATORY: Lungs sounds diminished bilaterally. Respirations even, nonlabored on mechanical ventilation, current settings assist-control mode, FiO2 50%, tidal volume 450, PEEP 5, respiratory rate 24. CARDIOVASCULAR: S1, S2 present. Regular rate and rhythm, sinus rhythm to sinus tach on telemetry. Palpable peripheral pulses bilaterally. Generalized trace edema present. No calf pain or tenderness noted. SCDs present. GASTROINTESTINAL: Abdomen soft, nontender, nondistended. Active bowel sounds present 4 quadrants. OG tube present, currently n.p.o. Last bowel movement this morning GENITOURINARY: Beth present draining clear, yellow urine. Output 1115 mL in the last 24 hours INTEGUMENTARY: Skin is warm and dry NEUROLOGIC: Sedated on mechanical ventilation INVASIVE LINES AND TUBES: Left/right pleural chest tubes present and connected to wall suction, no air leaks present this morning. Left pleural chest tube with 175 mL purulent drainage in the last 24 hours. Right pleural chest tube with 15 mL serosanguineous drainage in the last 24 hours. Left subclavian triple lumen central line present. - Allied health notes Allied health notes reviewed: nursing - Labs CBC & Chem 7: 12/02/23 05:20 12/02/23 05:20 Labs: Abnormal Lab Results - Last 24 Hours (Table) 11/29/23 12/01/23 12/01/23 Range/Units 06:15 11:55 16:33 WBC (3.8-10.6) k/uL RBC (3.80-5.40) m/uL Hgb (11.4-16.0) gm/dL Hct (34.0-46.0) % Neutrophils # (1.3-7.7) k/uL ABG pH (7.35-7.45) ABG pCO2 (35-45) mmHg ABG pO2 (83-108) mmHg ABG HCO3 (21-25) mmol/L ABG Total CO2 (19-24) mmol/L Potassium 3.4 L (3.5-5.1) mmol/L Carbon Dioxide (22-30) mmol/L Creatinine (0.52-1.04) mg/dL POC Glucose (mg/dL) 120 H (70-110) mg/dL Calcium (8.4-10.2) mg/dL Crossmatch See Detail 12/01/23 12/01/23 12/02/23 Range/Units 17:52 23:33 05:20 WBC 20.4 H (3.8-10.6) k/uL RBC 2.17 L (3.80-5.40) m/uL Hgb 6.4 L* (11.4-16.0) gm/dL Hct 20.1 L (34.0-46.0) % Neutrophils # 18.7 H (1.3-7.7) k/uL ABG pH (7.35-7.45) ABG pCO2 (35-45) mmHg ABG pO2 (83-108) mmHg ABG HCO3 (21-25) mmol/L ABG Total CO2 (19-24) mmol/L Potassium (3.5-5.1) mmol/L Carbon Dioxide (22-30) mmol/L Creatinine (0.52-1.04) mg/dL POC Glucose (mg/dL) 125 H 120 H (70-110) mg/dL Calcium (8.4-10.2) mg/dL Crossmatch 12/02/23 12/02/23 12/02/23 Range/Units 05:20 06:15 06:55 WBC (3.8-10.6) k/uL RBC (3.80-5.40) m/uL Hgb (11.4-16.0) gm/dL Hct (34.0-46.0) % Neutrophils # (1.3-7.7) k/uL ABG pH 7.47 H (7.35-7.45) ABG pCO2 46 H (35-45) mmHg ABG pO2 73 L (83-108) mmHg ABG HCO3 33 H (21-25) mmol/L ABG Total CO2 35 H (19-24) mmol/L Potassium (3.5-5.1) mmol/L Carbon Dioxide 31 H (22-30) mmol/L Creatinine 0.42 L (0.52-1.04) mg/dL POC Glucose (mg/dL) (70-110) mg/dL Calcium 7.1 L (8.4-10.2) mg/dL Crossmatch See Detail Microbiology - Last 24 Hours (Table) 11/26/23 12:30 Blood Culture - Final Blood - Imaging and Cardiology Chest x-ray: image reviewed Assessment and Plan Assessment: Acute hypoxic respiratory failure requiring mechanical ventilation Bilateral hydropneumothoraces, empyema, status post bilateral chest tube insertion Septic shock, requiring IV vasopressors Chest pain, shortness of breath present on admission secondary to above History of MS Obesity Migraines Seizures Fibromyalgia Hypertension, currently hypotensive on pressors Asthma Anxiety/depression/bipolar disorder Polysubstance abuse Plan: Percutaneous tracheostomy to be completed in the operating room by Dr. Royal on Tuesday, December 05, 2023 No lytics today, likely will discontinue right chest tube later today or tomorrow Would like repeat chest CT to evaluate progression once stable enough for transfer Ventilator management per new car sales manager Antibiotics per infectious disease PEG tube by general surgery Medical management of other comorbidities per internal medicine, pulmonology, ID Goals of care to be discussed as patient does not appear to be improving, poor prognosis More recommendations to follow
[2023-12-02] MEDS: POTASSIUM CHLORIDE 20 MEQ in WATER FOR INJECTION 1 100ML.BAG IVPB ONE (08:57)
--- NOTE | 2023-12-02 10:52 | P.PN ---
Subjective Progress Note Date: 12/02/23 Principal diagnosis: Respiratory failure. Reevaluate today on11/27/23, remains in the ICU, intubated and mechanically ventilated, on assist-control rate of 42 tidal volume 450 FiO2 60% PEEP of 5 ABG showed a pO2 of 72 pCO2 43 pH of 7.49. Patient remains fully sedated she is on fentanyl 1.5 mcg/kg/min she is also on Versed 3 mg/h. Propofol at 50 mcg/kg/min. Patient remains hemodynamically unstable requiring norepinephrine at 0.11 mcg/kg/min she is on vital HP at 16 mL/h. She is also on LR at 150 cc/h. Today I did not make any changes in her ventilator settings. Her chest x-ray is basically about the same continues to show right-sided pneumothorax but I do not see an air leak today on the right side but she does have an air leak on the left side and continues to have significant purulent drainage from the chest tube on the left side. 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 Not much of a change overnight, patient remains critically ill. Continues to have leukocytosis with WBC count of 28.2 hemoglobin 8.5 basic metabolic profile is normal and renal profile is normal Reevaluate today on 11/28/2023, remains in the ICU intubated and mechanically ventilated. Patient is on assist-control rate of 52 tidal volume 450 FiO2 60% PEEP of 5 ABG showed a pO2 of 73 pCO2 37 pH of 7.52 hence FiO2 was cut down to 55% and rate to cut down to 28. Patient continues to have bilateral chest tubes, the left-sided chest tube has ongoing continuous leak, right-sided chest tube has intermittent airleak. However the patient is maintaining her adequate tidal volumes which are about 450. Patient remains on propofol at 50 mcg/kg/min Versed 3 mg/h Fentanyl 1.5 mcg/kg/h patient is also receiving norepinephrine at 0.08 mcg/kg/min. Her IV fluid which is LR Down to 100 cc/h. She is on vital HP patient had a Tmax of 102.9 yesterday, cultures of blood and pleural effusion are positive for MRSA, patient remains on vancomycin. If the patient continues to have positive blood cultures in the next couple of days, may have to consider OSIRIS. The cultures from the are pending. Chest x-ray continues to show significant hydropneumothorax on the left side, and she has mostly hydrothorax on the right side. I could not appreciate a pneumothorax on the right side labs today showed leukocytosis with WBC of 23.1 hemoglobin 7.4, basic metabolic profile is normal renal profile is normal today on 11/29/2023 patient remains intubated and mechanically ventilated, she is on assist-control rate of 28 tidal volume 450 FiO2 55% PEEP of 5 ABG showed a pO2 of 94 pCO2 34 pH of 7.53, hence her vent settings were changed to cut down her rate to 26 cut down FiO2 to 50% And PEEP at 5. Patient's hemoglobin is low today at 6.8, and she will receive a unit of packed RBCs. Patient is being treated for MRSA pneumonia, bacteremia, and empyema. Remains on propofol at 30 mcg/kg/min Fentanyl 1 mcg/kg/h she is also on Versed which I will discontinue today 2 mg/h. Norepinephrine 0.02 mcg/kg/min and IV fluid 0.9 normal saline at 100 cc/h. Chest x-ray continues to show left-sided loculated pneumothorax, and she continues to have ongoing airleak from the left-sided chest tube. The right-sided chest tube seems to be occluded, hence we will ask thoracic surgery to flush the chest tube, and the patient has what seems to be a pleural effusion on the right side, drainage is serosanguineous. Considering the overall picture, the patient is again not quite ready for any weaning, however over the next couple of days as we cut down on sedation, may start waking the patient up and give the patient weaning trials if possible. At this point she remains quite ill, and I doubt if she will tolerate any form of weaning her FiO2 just dropped down from 55 to 50%., Continues to have leukocytosis but improving WBC count is 24.7 hemoglobin 6.8 and she will receive a unit of packed RBCs. Basic metabolic profile is normal renal profile is normal and urine output is excellent Patient was reexamined today on 11/30/2023, remains intubated and mechanically ventilated, remains on vancomycin, patient is on assist-control rate of 24 tidal volume 450 FiO2 50% and PEEP of 5 ABG showed a pO2 of 78 pCO2 48 pH of 7.40 hence no changes were made in vent settings. Chest x-ray showed significant bilateral airspace disease loculated left-sided pneumothorax no clear-cut evidence of pneumothorax on the right. Chest x-ray is also suggestive of interstitial edema/infiltrates, hence the patient will be given a trial of diuresis. Hemoglobin is down to 7.4, patient did receive 1 unit of packed RBCs: WBC count remains high at 25.8 but steadily improving. Patient continues to have air leak in the left side chest tube, but no airleak noted in the right- sided chest tube. Drips bautista the patient is on fentanyl at 1 mcg/kg/h IV fluid LR at 100 cc/h norepinephrine at 0.04 mcg/kg/min propofol at 30 mcg/kg/min vital HP at 44/44. Patient did receive 20 mg of Lasix earlier while on rounds. Her arterial line went and nonfunctional, hence a new arterial line was placed in the left radial artery. Father called about his daughter, and I discussed her condition over the phone with her father and updated him on the situation. He is aware that she is critically ill, and at this point prognosis is relatively guarded. Progress note dated December 01, 2023. This is a 43-year-old female who was admitted on November 22. The patient came in with bilateral pneumonia and empyema. She was intubated for respiratory failure on November 23. Sampling has revealed evidence of methicillin-resistant Staph aureus. She remains on the ventilator.Ventilator settings include volume assist-control, rate 24, tidal volume 450, FiO2 50%, PEEP of 5. Blood gases show pO2 100, pCO2 of 44, pH is 7.47. The patient remains on propofol at 30 mcg/kg/min, fentanyl at 1 mcg/kg/h, lactated Ringer's at 100 cc an hour, and vital AF at 44 cc an hour, which is goal. The patient does continue on vancomycin for her MRSA infection. Current laboratory data includes a white count 24.2, hemoglobin 7.1, hematocrit 22.9, and platelet count 242,000. Sodium 136, potassium 3.2, chlorides 104, CO2 31, BUN 10, creatinine 0.39. Glucose is 111. Calcium is 7.1. Nasal swabs, sputum, blood, wound culture, and pleural fluid, are all consistent with methicillin-resistant Staph aureus. Chest x-ray shows continued bilateral diffuse airspace disease. Bilateral pleural catheters are seen. Progress note dated December 02 2023. This is a 43-year-old female who was admitted on November 22. The patient came in with bilateral pneumonia and empyema. She was intubated for respiratory failure on November 23. Sampling has revealed evidence of methicillin-resistant Staph aureus. She remains on the ventilator. Currently, she is on volume assist- control, rate 24, tidal volume 450, FiO2 50%, PEEP of 5. Blood gases show pO2 73, pCO2 46, pH is 7.47. The patient is getting lactated Ringer's at 100 cc an hour, propofol at 35 mcg/kg/min, and fentanyl at 2 mcg/kg/h. Her tube feedings are on hold, as the patient is to receive a PEG tube today. The patient will have a tracheostomy performed on Friday. White count is 20.4, hemoglobin 6.4, hematocrit 20.1, and platelet count was normal. Sodium 138, potassium 3.7, chlorides 105, CO2 31, BUN 10, creatinine 0.42. Glucose is 95. Calcium 7.1, magnesium 2.0. Nasal swab, pleural fluid, sputum, and blood cultures, are all positive for methicillin-resistant Staph aureus. Chest x-ray shows diffuse bilateral infiltrates. Objective - Vital Signs Vital signs: Vital Signs Temp 100 F H 12/02/23 09:38 Pulse 109 H 12/02/23 10:00 Resp 24 12/02/23 10:00 BP 130/77 12/02/23 10:00 Pulse Ox 97 12/02/23 10:00 FiO2 50 12/02/23 10:00 Intake & Output 12/01/23 12/02/23 12/02/23 18:59 06:59 18:59 Intake Total 2127.070 1606.228 512 Output Total 885 1145 309 Balance 1242.070 461.228 203 Weight 126.9 kg 127.8 kg Intake: IV 1236 1236 412 Lactated Ringers 1,000 ml 1200 1200 400 @ 100 mls/hr IV .Q10H [facility] Rx#:[id number] Pressure bag 36 36 12 Intake, IV Titration 847.070 370.228 100 Amount Potassium Chloride 20 meq 100 In Water For Injection 1 100ml.bag @ 50 mls/hr IVPB Q2H [facility] Rx#: [id number] Vancomycin 2,000 mg In 500 Sodium Chloride 0.9% 500 ml 500 ml @ 167 mls/hr IVPB Q8H [facility] Rx#: [id number] fentaNYL (PF). 1,000 mcg 93.304 170.228 In Sodium Chloride 0.9% 80 ml @ 0.5 MCG/KG/HR 4. 99 mls/hr IV .Q20H3M [facility] Rx#:[id number] propofoL 1,000 mg In 253.766 100 100 Empty Bag 1 bag @ 15 MCG/ KG/MIN 8.981 mls/hr IV . Q11H9M [facility] Rx#:[id number] Oral 0 Tube Feeding 44 0 Blood Product 0 Rc As-1 Unit 0 [id number] Output: Chest Tube Drainage 70 120 14 Chest Tube 60 115 14 Chest Tube Right 10 5 0 Urine 815 1025 295 Other: Voiding Method Indwelling Catheter Indwelling Catheter Indwelling Catheter # Bowel Movements 1 1 ABP, PAP, CO, CI - Last Documented Arterial Blood Pressure 114/52 - Exam No acute distress, sedated, with an orally placed endotracheal tube. HEENT examination is grossly unremarkable. Neck supple. Full range of motion. No adenopathy thyromegaly or neck vein distention. Cardiovascular examination reveals regular rhythm rate. S1-S2 normal. No S3 or S4. No discernible murmur noted. Heart rate 1 bpm. Lungs reveal bilateral coarse rhonchi. No wheezes or crackles. Breath sounds equal. Saturations are 97%. Abdomen soft, with bowel sounds. No masses. Abdomen obese. Extremities are intact. No cyanosis clubbing or edema. Skin is without rash or lesion. Neurologic examination cannot be assessed at this time. - Labs CBC & Chem 7: 12/02/23 05:20 12/02/23 05:20 Labs: Abnormal Lab Results - Last 24 Hours (Table) 11/29/23 12/01/23 12/01/23 Range/Units 06:15 11:55 16:33 WBC (3.8-10.6) k/uL RBC (3.80-5.40) m/uL Hgb (11.4-16.0) gm/dL Hct (34.0-46.0) % Neutrophils # (1.3-7.7) k/uL ABG pH (7.35-7.45) ABG pCO2 (35-45) mmHg ABG pO2 (83-108) mmHg ABG HCO3 (21-25) mmol/L ABG Total CO2 (19-24) mmol/L Potassium 3.4 L (3.5-5.1) mmol/L Carbon Dioxide (22-30) mmol/L Creatinine (0.52-1.04) mg/dL POC Glucose (mg/dL) 120 H (70-110) mg/dL Calcium (8.4-10.2) mg/dL Crossmatch See Detail 12/01/23 12/01/23 12/02/23 Range/Units 17:52 23:33 05:20 WBC 20.4 H (3.8-10.6) k/uL RBC 2.17 L (3.80-5.40) m/uL Hgb 6.4 L* (11.4-16.0) gm/dL Hct 20.1 L (34.0-46.0) % Neutrophils # 18.7 H (1.3-7.7) k/uL ABG pH (7.35-7.45) ABG pCO2 (35-45) mmHg ABG pO2 (83-108) mmHg ABG HCO3 (21-25) mmol/L ABG Total CO2 (19-24) mmol/L Potassium (3.5-5.1) mmol/L Carbon Dioxide (22-30) mmol/L Creatinine (0.52-1.04) mg/dL POC Glucose (mg/dL) 125 H 120 H (70-110) mg/dL Calcium (8.4-10.2) mg/dL Crossmatch 12/02/23 12/02/23 12/02/23 Range/Units 05:20 06:15 06:55 WBC (3.8-10.6) k/uL RBC (3.80-5.40) m/uL Hgb (11.4-16.0) gm/dL Hct (34.0-46.0) % Neutrophils # (1.3-7.7) k/uL ABG pH 7.47 H (7.35-7.45) ABG pCO2 46 H (35-45) mmHg ABG pO2 73 L (83-108) mmHg ABG HCO3 33 H (21-25) mmol/L ABG Total CO2 35 H (19-24) mmol/L Potassium (3.5-5.1) mmol/L Carbon Dioxide 31 H (22-30) mmol/L Creatinine 0.42 L (0.52-1.04) mg/dL POC Glucose (mg/dL) (70-110) mg/dL Calcium 7.1 L (8.4-10.2) mg/dL Crossmatch See Detail Microbiology - Last 24 Hours (Table) 11/26/23 12:30 Blood Culture - Final Blood Assessment and Plan Assessment: Acute hypoxemic respiratory failure, S/P intubation and mechanical ventilation on November 23. Acute bilateral methicillin-resistant Staph aureus pneumonia, with empyema, and hydropneumothorax. Anticipated PEG tube placement December 02, 2023. S/P bilateral chest tube placement. Acute sepsis with septic shock. History of polysubstance abuse. History of multiple sclerosis. History of anxiety/depression. History of interstitial cystitis and urinary tract infection. Fibromyalgia. Chronic pain syndrome. History of seizure disorder. Degenerative joint disease. Morbid obesity. Essential hypertension. Plan: Plan dated December 01, 2023. We did speak to Dr. Royal about this patient. He feels that any additional surgical intervention, is not warranted at this time. Labs, x-rays, medications are reviewed. The patient will likely end up with a tracheostomy. Dr. Royal is willing to do it. In addition, we will ask our surgical colleagues, for PEG tube placement. The patient continues on propofol, fentanyl, and lactated Ringer's. She continues on vancomycin for her infection. Labs, x-rays, medications are all reviewed. The patient's overall prognosis remains very guarded. We will continue to follow the patient, make recommendations. Plan dated December 02, 2023. The patient remains on lactated Ringer's, propofol, and fentanyl. Tube feedings are on hold, for PEG tube placement today. Tracheostomy will be performed on Friday, by Dr. Royal. Labs, x-rays, and medications are all reviewed. The patient continues on antibiotics for her methicillin-resistant Staph aureus infection. We will continue to follow and make recommendations along the way. The patient continues on vancomycin. The patient's overall prognosis remains very guarded. Time with Patient: Greater than 30
--- NOTE | 2023-12-02 11:42 | XR ---
EXAMINATION TYPE: XR chest 1V portable DATE OF EXAM: 12/02/2023 Comparison: 12/01/2023 Clinical History: 43-year-old female mechanical ventilation Findings: ETT and NG tubes are satisfactory. Left subclavian CVC tip at the mid to lower SVC level. Bilateral c hest tubes are present. Underlying extensive bilateral airspace opacities. Loculated air collection a t the periphery of the left base measuring 7.0 cm there is only subtly apparent given the extensive a irspace disease. Impression: 1. Ongoing diffuse bilateral airspace disease. 2. Bilateral chest tubes in place. The 7.0 cm loculated air collection at the periphery of the left b ase is not as well seen due to the extensive opacities.
[2023-12-02 12:38] LABS: Glucose,Whole Blood 92 mg/dL (70-110)
[2023-12-02 12:55] LABS: HCT 21.1 % (34.0-46.0); Hypochromasia Slight; MCH 30.4 pg (25.0-35.0); MCHC 33.1 g/dL (31.0-37.0); MCV 91.9 fL (80.0-100.0); Mean Platelet Volume 9.7; Platelet Count 264 k/uL (150-450); Poikilocytosis Slight; RBC 2.29 m/uL (3.80-5.40); RDW 14.6 % (11.5-15.5); WBC 19.6 k/uL (3.8-10.6)
--- NOTE | 2023-12-02 14:19 | P.PN ---
Subjective Progress Note Date: 11/30/23 Principal diagnosis: Reason for follow-up is sepsis MRSA pneumonia bacteremia and empyema Patient is a 43-year-old female past medical history significant for hypertension fibromyalgia asthma reflux seizure disorder currently incarcerated and presented from the local shelter for evaluation of increasing shortness of breath and chest pain, patient did have evidence of bilateral hydropneumothorax requiring bilateral chest tube placement and did have a positive blood culture with MRSA. On today's visit that is 11/30/2023, the patient continues to be febrile and did have a temperature of 101.8 F this morning, the patient remains to be on the vent, FiO2 is currently stable at 50% no significant purulent secretions through the ET requiring less pressor support no diarrhea has been reported Patient white count is down to 5.8, creatinine 0.39 Objective - Vital Signs Vital signs: Vital Signs Temp 100.8 F H 11/30/23 04:00 Pulse 121 H 11/30/23 09:05 Resp 25 H 11/30/23 07:15 BP 125/71 11/30/23 07:15 Pulse Ox 98 11/30/23 07:15 FiO2 50 11/30/23 08:14 Intake & Output 11/29/23 11/30/23 11/30/23 18:59 06:59 18:59 Intake Total 4642.996 1543.464 203.885 Output Total 1155 1365 515 Balance 3487.996 178.464 -311.115 Weight 122 kg Intake: IV 3306 643 39 .9 kvo 70 110 30 Lactated Ringers 1,000 ml 1200 @ 100 mls/hr IV .Q10H [facility] Rx#:[id number] Pressure bag 36 33 9 Sodium Chloride 0.9% 1, 1000 000 ml @ 999 mls/hr IV . Q1H1M [facility] Rx#:[id number] Vancomycin 1,750 mg In 1000 500 Sodium Chloride 0.9% 500 ml 500 ml @ 167 mls/hr IVPB Q12H [facility] Rx#: [id number] Intake, IV Titration 404.996 312.464 2.885 Amount Midazolam HCl 50 mg In 20.8 Sodium Chloride 0.9% 40 ml @ 1 MG/HR 1 mls/hr IV .Q24H [facility] Rx#:[id number] Norepinephrine 32 mg In 10.462 67.637 2.885 Sodium Chloride 0.9% 218 ml @ 0.03 MCG/KG/MIN 1. 403 mls/hr IV .Q24H [facility] Rx#:[id number] fentaNYL (PF). 1,000 mcg 192.306 72.68 In Sodium Chloride 0.9% 80 ml @ 0.5 MCG/KG/HR 4. 99 mls/hr IV .Q20H3M [facility] Rx#:[id number] propofoL 1,000 mg In 181.428 172.147 Empty Bag 1 bag @ 15 MCG/ KG/MIN 8.981 mls/hr IV . Q11H9M [facility] Rx#:[id number] Tube Feeding 532 528 132 Blood Product 310 Rc As-1 Unit 310 [id number] Other 90 60 30 Output: Chest Tube Drainage 150 120 90 Chest Tube 100 80 70 Chest Tube Right 50 40 20 Urine 1005 1245 425 Other: Voiding Method Indwelling Catheter Indwelling Catheter # Voids 175 ABP, PAP, CO, CI - Last Documented Arterial Blood Pressure 113/81 - Exam GENERAL DESCRIPTION: Middle-aged female intubated on the vent RESPIRATORY SYSTEM: Unlabored breathing , coarse breath sounds bilaterally HEART: S1 S2 regular rate and rhythm , ABDOMEN: Soft , no tenderness EXTREMITIES: No edema feet Exam completed with the help of [employer] - Labs CBC & Chem 7: 12/02/23 12:36 12/02/23 05:20 Labs: Abnormal Lab Results - Last 24 Hours (Table) 11/29/23 11/29/23 11/29/23 Range/Units 06:08 06:15 12:41 WBC (3.8-10.6) k/uL RBC (3.80-5.40) m/uL Hgb (11.4-16.0) gm/dL Hct (34.0-46.0) % ABG pCO2 (35-45) mmHg ABG pO2 (83-108) mmHg ABG HCO3 (21-25) mmol/L ABG Total CO2 (19-24) mmol/L POC Glucose (mg/dL) 112 H (70-110) mg/dL Iron 7 L (50-170) UG/DL TIBC 119 L (228-460) UG/DL % Saturation 5.88 L (12.00-45.00) Transferrin 84.8 L (204.0-354.0) mg/dL Ferritin 1143.0 H (10.0-291.0) ng/mL Crossmatch See Detail 11/29/23 11/30/23 11/30/23 Range/Units 14:47 00:30 06:19 WBC 27.8 H (3.8-10.6) k/uL RBC 2.58 L (3.80-5.40) m/uL Hgb 7.6 L (11.4-16.0) gm/dL Hct 23.6 L (34.0-46.0) % ABG pCO2 48 H (35-45) mmHg ABG pO2 78 L (83-108) mmHg ABG HCO3 30 H (21-25) mmol/L ABG Total CO2 31 H (19-24) mmol/L POC Glucose (mg/dL) 130 H (70-110) mg/dL Iron (50-170) UG/DL TIBC (228-460) UG/DL % Saturation (12.00-45.00) Transferrin (204.0-354.0) mg/dL Ferritin (10.0-291.0) ng/mL Crossmatch 11/30/23 11/30/23 Range/Units 06:54 08:21 WBC 25.8 H (3.8-10.6) k/uL RBC 2.51 L (3.80-5.40) m/uL Hgb 7.4 L (11.4-16.0) gm/dL Hct 23.8 L (34.0-46.0) % ABG pCO2 (35-45) mmHg ABG pO2 (83-108) mmHg ABG HCO3 (21-25) mmol/L ABG Total CO2 (19-24) mmol/L POC Glucose (mg/dL) 136 H (70-110) mg/dL Iron (50-170) UG/DL TIBC (228-460) UG/DL % Saturation (12.00-45.00) Transferrin (204.0-354.0) mg/dL Ferritin (10.0-291.0) ng/mL Crossmatch Microbiology - Last 24 Hours (Table) 11/27/23 09:40 Blood Culture - Preliminary Blood 11/26/23 12:30 Blood Culture - Preliminary Blood Assessment and Plan (1) Empyema Current Visit: Yes Status: Acute Code(s): J86.9 - PYOTHORAX WITHOUT FISTULA SNOMED Code(s): 879410543 (2) MRSA bacteremia Current Visit: Yes Status: Acute Code(s): R78.81 - BACTEREMIA; B95.62 - METHICILLIN RESIS STAPH INFCT CAUSING DISEASES CLASSD [id number] SNOMED Code(s): 53146196441448687 (3) Pneumonia Current Visit: Yes Status: Acute Code(s): J18.9 - PNEUMONIA, UNSPECIFIED ORGANISM SNOMED Code(s): 807152379 (4) Pneumothorax Current Visit: Yes Status: Acute Code(s): J93.9 - PNEUMOTHORAX, UNSPECIFIED SNOMED Code(s): 84461766 Plan: 1patient presented to hospital with sepsis in this patient who did have a fever tachycardia elevated white count source is pulmonary in this patient noted evidence of bilateral pneumothorax and effusion with question of complicated pneumonia/empyema keeping in mind the patient is from local skilled nursing will need to cover for resistant gram-positive such as MRSA and gram-negative pathogen 2-patient blood sputum and pleural fluid culture with MRSA 3-blood cultures has been repeated document clearance of bacteremia, blood culture from 11/26/2023 so far negative 4-patient to continue with vancomycin dose has been adjusted up we will follow trough closely and monitor clinical course closely Dictation was produced using [employer] dictation software. please excuse any grammatical, word or spelling errors. Time with Patient: Less than 30
--- NOTE | 2023-12-02 14:20 | P.PN ---
Subjective Progress Note Date: 12/01/23 Principal diagnosis: Reason for follow-up is sepsis MRSA pneumonia bacteremia and empyema Patient is a 43-year-old female past medical history significant for hypertension fibromyalgia asthma reflux seizure disorder currently incarcerated and presented [facility] local [facility] for evaluation of increasing shortness of breath and chest pain, patient did have evidence of bilateral hydropneumothorax requiring bilateral chest tube placement and did have a positive blood culture with MRSA. On today's visit that is 12/01/2023, Patient remains to be febrile and the patient did have a temperature of 101.4 F this morning, patient remains to be intubated on the vent FiO2 at 50% no significant purulent secretions through the ET diarrhea or any other changes reported by the nursing staff. Patient white count is down to 24.2, creatinine is 0.39 Vanco trough 16.7 blood culture repeat has been negative Objective - Vital Signs Vital signs: Vital Signs Temp 101.1 F H 12/01/23 20:00 Pulse 112 H 12/01/23 20:19 Resp 24 12/01/23 20:00 BP 102/55 12/01/23 20:00 Pulse Ox 96 12/01/23 20:00 FiO2 50 12/01/23 20:06 Intake & Output 12/01/23 12/01/23 12/02/23 06:59 18:59 06:59 Intake Total 2676.471 2127.070 203 Output Total 1095 885 100 Balance 5687.632 9997.070 103 Weight 126.9 kg 126.9 kg Intake: IV 1736 1236 103 Lactated Ringers 1,000 ml 1200 1200 100 @ 100 mls/hr IV .Q10H [facility] Rx#:[id number] Pressure bag 36 36 3 Vancomycin 1,750 mg In 500 Sodium Chloride 0.9% 500 ml 500 ml @ 167 mls/hr IVPB Q12H [facility] Rx#: [id number] Intake, IV Titration 382.471 847.070 100 Amount Potassium Chloride 20 meq 100 In Water For Injection 1 100ml.bag @ 50 mls/hr IVPB Q2H [facility] Rx#: [id number] Vancomycin 2,000 mg In 500 Sodium Chloride 0.9% 500 ml 500 ml @ 167 mls/hr IVPB Q8H [facility] Rx#: [id number] fentaNYL (PF). 1,000 mcg 191.763 93.304 In Sodium Chloride 0.9% 80 ml @ 0.5 MCG/KG/HR 4. 99 mls/hr IV .Q20H3M [facility] Rx#:[id number] propofoL 1,000 mg In 190.708 253.766 Empty Bag 1 bag @ 15 MCG/ KG/MIN 8.981 mls/hr IV . Q11H9M [facility] Rx#:[id number] Tube Feeding 528 44 Other 30 Output: Chest Tube Drainage 70 70 Chest Tube 60 60 Chest Tube Right 10 10 Urine 1025 815 100 Other: Voiding Method Indwelling Catheter Indwelling Catheter # Bowel Movements 1 ABP, PAP, CO, CI - Last Documented Arterial Blood Pressure 107/54 - Exam GENERAL DESCRIPTION: Middle-aged female intubated on the vent RESPIRATORY SYSTEM: Unlabored breathing , coarse breath sounds bilaterally HEART: S1 S2 regular rate and rhythm , ABDOMEN: Soft , no tenderness EXTREMITIES: No edema feet - Labs CBC & Chem 7: 12/02/23 12:36 12/02/23 05:20 Labs: Abnormal Lab Results - Last 24 Hours (Table) 11/30/23 12/01/23 12/01/23 Range/Units 23:16 04:43 04:43 WBC 24.2 H (3.8-10.6) k/uL RBC 2.45 L (3.80-5.40) m/uL Hgb 7.1 L (11.4-16.0) gm/dL Hct 22.9 L (34.0-46.0) % Neutrophils # 22.7 H (1.3-7.7) k/uL Lymphocytes # 0.8 L (1.0-4.8) k/uL ABG pH (7.35-7.45) ABG HCO3 (21-25) mmol/L ABG Total CO2 (19-24) mmol/L ABG O2 Saturation (94-97) % Sodium 136 L (137-145) mmol/L Potassium 3.2 L (3.5-5.1) mmol/L Carbon Dioxide 31 H (22-30) mmol/L Creatinine 0.39 L (0.52-1.04) mg/dL Glucose 122 H (74-99) mg/dL POC Glucose (mg/dL) 117 H (70-110) mg/dL Calcium 7.1 L (8.4-10.2) mg/dL 12/01/23 12/01/23 12/01/23 Range/Units 05:35 05:40 11:55 WBC (3.8-10.6) k/uL RBC (3.80-5.40) m/uL Hgb (11.4-16.0) gm/dL Hct (34.0-46.0) % Neutrophils # (1.3-7.7) k/uL Lymphocytes # (1.0-4.8) k/uL ABG pH 7.47 H (7.35-7.45) ABG HCO3 32 H (21-25) mmol/L ABG Total CO2 33 H (19-24) mmol/L ABG O2 Saturation 98.9 H (94-97) % Sodium (137-145) mmol/L Potassium (3.5-5.1) mmol/L Carbon Dioxide (22-30) mmol/L Creatinine (0.52-1.04) mg/dL Glucose (74-99) mg/dL POC Glucose (mg/dL) 111 H 120 H (70-110) mg/dL Calcium (8.4-10.2) mg/dL 12/01/23 12/01/23 Range/Units 16:33 17:52 WBC (3.8-10.6) k/uL RBC (3.80-5.40) m/uL Hgb (11.4-16.0) gm/dL Hct (34.0-46.0) % Neutrophils # (1.3-7.7) k/uL Lymphocytes # (1.0-4.8) k/uL ABG pH (7.35-7.45) ABG HCO3 (21-25) mmol/L ABG Total CO2 (19-24) mmol/L ABG O2 Saturation (94-97) % Sodium (137-145) mmol/L Potassium 3.4 L (3.5-5.1) mmol/L Carbon Dioxide (22-30) mmol/L Creatinine (0.52-1.04) mg/dL Glucose (74-99) mg/dL POC Glucose (mg/dL) 125 H (70-110) mg/dL Calcium (8.4-10.2) mg/dL Microbiology - Last 24 Hours (Table) 11/26/23 12:30 Blood Culture - Final Blood 11/27/23 09:40 Blood Culture - Preliminary Blood Assessment and Plan (1) Empyema Current Visit: Yes Status: Acute Code(s): J86.9 - PYOTHORAX WITHOUT FISTULA SNOMED Code(s): 523358670 (2) MRSA bacteremia Current Visit: Yes Status: Acute Code(s): R78.81 - BACTEREMIA; B95.62 - METHICILLIN RESIS STAPH INFCT CAUSING DISEASES CLASSD ELSWHR SNOMED Code(s): 61671499805825616 (3) Pneumonia Current Visit: Yes Status: Acute Code(s): J18.9 - PNEUMONIA, UNSPECIFIED ORGANISM SNOMED Code(s): 474951237 (4) Pneumothorax Current Visit: Yes Status: Acute Code(s): J93.9 - PNEUMOTHORAX, UNSPECIFIED SNOMED Code(s): 07799857 Plan: 1patient presented to hospital with sepsis in this patient who did have a fever tachycardia elevated white count source is pulmonary in this patient noted evidence of bilateral pneumothorax and effusion with question of complicated pneumonia/empyema keeping in mind the patient is from local intermediate will need to cover for resistant gram-positive such as MRSA and gram-negative pathogen 2-patient blood sputum and pleural fluid culture with MRSA 3-blood cultures has been repeated document clearance of bacteremia, blood culture from 11/26/2023 so far negative 4-patient continues to be febrile patient currently loculated fluid has not been draining and did have a low Vanco trough initially however vancomycin dose has been adjusted up we will follow trough closely continue with supportive care Dictation was produced using [employer] dictation software. please excuse any grammatical, word or spelling errors. Time with Patient: Less than 30
--- NOTE | 2023-12-02 14:23 | P.PN ---
Subjective Progress Note Date: 12/02/23 Principal diagnosis: Reason for follow-up is sepsis MRSA pneumonia bacteremia and empyema Patient is a 43-year-old female past medical history significant for hypertension fibromyalgia asthma reflux seizure disorder currently incarcerated and presented from the local intermediate for evaluation of increasing shortness of breath and chest pain, patient did have evidence of bilateral hydropneumothorax requiring bilateral chest tube placement and did have a positive blood culture with MRSA. On today's visit that is 12/02/2023, patient seem to have slight decrease/improvement her fever pattern with temperature of 100.3 F at noon, the patient is hemodynamically stable requiring any pressor support patient FiO2 of 50% no diarrhea, patient did have evidence of oral thrush reported by the nursing staff at the time of oral care. Patient white count is down to 19.6, creatinine 0.42 blood culture repeat has been negative Objective - Vital Signs Vital signs: Vital Signs Temp 100.3 F H 12/02/23 12:00 Pulse 111 H 12/02/23 12:00 Resp 26 H 12/02/23 12:00 BP 115/54 12/02/23 11:19 Pulse Ox 98 12/02/23 12:00 FiO2 50 12/02/23 12:00 Intake & Output 12/01/23 12/02/23 12/02/23 18:59 06:59 18:59 Intake Total 2127.070 9126.543 9595.761 Output Total 885 1145 449 Balance 1242.070 461.228 773.761 Weight 126.9 kg 127.8 kg 127.8 kg Intake: IV 1236 1236 618 Lactated Ringers 1,000 ml 1200 1200 600 @ 100 mls/hr IV .Q10H [facility] Rx#:[id number] Pressure bag 36 36 18 Intake, IV Titration 847.070 370.228 294.761 Amount Potassium Chloride 20 meq 100 In Water For Injection 1 100ml.bag @ 50 mls/hr IVPB Q2H [facility] Rx#: [id number] Vancomycin 2,000 mg In 500 Sodium Chloride 0.9% 500 ml 500 ml @ 167 mls/hr IVPB Q8H [facility] Rx#: [id number] fentaNYL (PF). 1,000 mcg 93.304 170.228 94.761 In Sodium Chloride 0.9% 80 ml @ 0.5 MCG/KG/HR 4. 99 mls/hr IV .Q20H3M [facility] Rx#:[id number] propofoL 1,000 mg In 253.766 100 200 Empty Bag 1 bag @ 15 MCG/ KG/MIN 8.981 mls/hr IV . Q11H9M [facility] Rx#:[id number] Oral 0 Tube Feeding 44 0 Blood Product 310 Rc As-1 Unit 310 [id number] Output: Chest Tube Drainage 70 120 14 Chest Tube 60 115 14 Chest Tube Right 10 5 0 Urine 815 1025 435 Other: Voiding Method Indwelling Catheter Indwelling Catheter Indwelling Catheter # Bowel Movements 1 1 ABP, PAP, CO, CI - Last Documented Arterial Blood Pressure 119/55 - Exam GENERAL DESCRIPTION: Middle-aged female intubated on the vent RESPIRATORY SYSTEM: Unlabored breathing , coarse breath sounds bilaterally HEART: S1 S2 regular rate and rhythm , ABDOMEN: Soft , no tenderness EXTREMITIES: No edema feet - Labs CBC & Chem 7: 12/02/23 12:36 12/02/23 05:20 Labs: Abnormal Lab Results - Last 24 Hours (Table) 11/29/23 12/01/23 12/01/23 Range/Units 06:15 16:33 17:52 WBC (3.8-10.6) k/uL RBC (3.80-5.40) m/uL Hgb (11.4-16.0) gm/dL Hct (34.0-46.0) % Neutrophils # (1.3-7.7) k/uL ABG pH (7.35-7.45) ABG pCO2 (35-45) mmHg ABG pO2 (83-108) mmHg ABG HCO3 (21-25) mmol/L ABG Total CO2 (19-24) mmol/L Potassium 3.4 L (3.5-5.1) mmol/L Carbon Dioxide (22-30) mmol/L Creatinine (0.52-1.04) mg/dL POC Glucose (mg/dL) 125 H (70-110) mg/dL Calcium (8.4-10.2) mg/dL Crossmatch See Detail 12/01/23 12/02/23 12/02/23 Range/Units 23:33 05:20 05:20 WBC 20.4 H (3.8-10.6) k/uL RBC 2.17 L (3.80-5.40) m/uL Hgb 6.4 L* (11.4-16.0) gm/dL Hct 20.1 L (34.0-46.0) % Neutrophils # 18.7 H (1.3-7.7) k/uL ABG pH (7.35-7.45) ABG pCO2 (35-45) mmHg ABG pO2 (83-108) mmHg ABG HCO3 (21-25) mmol/L ABG Total CO2 (19-24) mmol/L Potassium (3.5-5.1) mmol/L Carbon Dioxide 31 H (22-30) mmol/L Creatinine 0.42 L (0.52-1.04) mg/dL POC Glucose (mg/dL) 120 H (70-110) mg/dL Calcium 7.1 L (8.4-10.2) mg/dL Crossmatch 12/02/23 12/02/23 12/02/23 Range/Units 06:15 06:55 12:36 WBC 19.6 H (3.8-10.6) k/uL RBC 2.29 L (3.80-5.40) m/uL Hgb 7.0 L (11.4-16.0) gm/dL Hct 21.1 L (34.0-46.0) % Neutrophils # (1.3-7.7) k/uL ABG pH 7.47 H (7.35-7.45) ABG pCO2 46 H (35-45) mmHg ABG pO2 73 L (83-108) mmHg ABG HCO3 33 H (21-25) mmol/L ABG Total CO2 35 H (19-24) mmol/L Potassium (3.5-5.1) mmol/L Carbon Dioxide (22-30) mmol/L Creatinine (0.52-1.04) mg/dL POC Glucose (mg/dL) (70-110) mg/dL Calcium (8.4-10.2) mg/dL Crossmatch See Detail Microbiology - Last 24 Hours (Table) 11/26/23 12:30 Blood Culture - Final Blood Assessment and Plan (1) Empyema Current Visit: Yes Status: Acute Code(s): J86.9 - PYOTHORAX WITHOUT FISTULA SNOMED Code(s): 466805474 (2) MRSA bacteremia Current Visit: Yes Status: Acute Code(s): R78.81 - BACTEREMIA; B95.62 - METHICILLIN RESIS STAPH INFCT CAUSING DISEASES CLASSD ELSWHR SNOMED Code(s): 21485602229252817 (3) Pneumonia Current Visit: Yes Status: Acute Code(s): J18.9 - PNEUMONIA, UNSPECIFIED ORGANISM SNOMED Code(s): 331259496 (4) Pneumothorax Current Visit: Yes Status: Acute Code(s): J93.9 - PNEUMOTHORAX, UNSPECIFIED SNOMED Code(s): 20606462 Plan: 1patient presented to hospital with sepsis in this patient who did have a fever tachycardia elevated white count source is pulmonary in this patient noted evidence of bilateral pneumothorax and effusion with question of complicated pneumonia/empyema keeping in mind the patient is from local [facility] will need to cover for resistant gram-positive such as MRSA and gram-negative pathogen 2-patient blood sputum and pleural fluid culture with MRSA 3-Patient did clear her bacteremia as the blood culture from 11/26/2023 as well as 11/27/2023 has been negative 4-patient has shown improvement in her fever pattern white count is trending down Vanco trough is up continue with vancomycin with a target of 15-20 5-with concern for oropharyngeal candidiasis we will add Eraxis, Diflucan cannot be used because of drug interaction Dictation was produced using [employer] software. please excuse any gramma tical, word or spelling errors. Time with Patient: Less than 30
--- NOTE | 2023-12-02 14:45 | P.PN ---
Subjective Progress Note Date: 12/02/23 CHIEF COMPLAINT: Respiratory failure HISTORY OF PRESENT ILLNESS: Patient remains in the ICU intubated and on mechanical ventilation. She has chest tubes in place. Hemoglobin has dropped to 6.4 she is receiving a unit of blood. Patient continues to have low-grade temps 100.3. Tachycardic. WBC 19.6 hemoglobin did go up from 6.4-7.0 after 1 unit of blood. Potassium 3.7. Patient scheduled for tracheostomy placement by Dr. Royal on Friday PHYSICAL EXAM: VITAL SIGNS: Reviewed. GENERAL: no acute distress. HEENT: No sclera icterus. Moist buccal mucosa. Head is atraumatic, normocephalic. ABDOMEN: Soft. Nondistended. Nontender. NEUROLOGIC: Intubated and sedated ASSESSMENT: 1. Severe protein calorie malnutrition 2. Respiratory failure with MRSA pneumonia, empyema and hydropneumothorax status post chest tube placement bilaterally 3. Hypokalemia 4. Anemia status post blood transfusion PLAN: -Due to scheduling issues PEG tube has been rescheduled for tomorrow with Dr. Johnson -Hold tube feedings after midnight -Hold Lovenox in a.m. Physician Manager Green note has been reviewed by physician. Signing provider agrees with the documented findings, assessment, and plan of care. Objective - Vital Signs Vital signs: Vital Signs Temp 100.3 F H 12/02/23 12:00 Pulse 111 H 12/02/23 12:00 Resp 26 H 12/02/23 12:00 BP 115/54 12/02/23 11:19 Pulse Ox 98 12/02/23 12:00 FiO2 50 12/02/23 12:00 Intake & Output 12/01/23 12/02/23 12/02/23 18:59 06:59 18:59 Intake Total 2127.070 5902.265 0585.761 Output Total 885 1145 449 Balance 1242.070 461.228 773.761 Weight 126.9 kg 127.8 kg 127.8 kg Intake: IV 1236 1236 618 Lactated Ringers 1,000 ml 1200 1200 600 @ 100 mls/hr IV .Q10H [facility] Rx#:[id number] Pressure bag 36 36 18 Intake, IV Titration 847.070 370.228 294.761 Amount Potassium Chloride 20 meq 100 In Water For Injection 1 100ml.bag @ 50 mls/hr IVPB Q2H [facility] Rx#: [id number] Vancomycin 2,000 mg In 500 Sodium Chloride 0.9% 500 ml 500 ml @ 167 mls/hr IVPB Q8H [facility] Rx#: [id number] fentaNYL (PF). 1,000 mcg 93.304 170.228 94.761 In Sodium Chloride 0.9% 80 ml @ 0.5 MCG/KG/HR 4. 99 mls/hr IV .Q20H3M [facility] Rx#:[id number] propofoL 1,000 mg In 253.766 100 200 Empty Bag 1 bag @ 15 MCG/ KG/MIN 8.981 mls/hr IV . Q11H9M [facility] Rx#:[id number] Oral 0 Tube Feeding 44 0 Blood Product 310 Rc As-1 Unit 310 [id number] Output: Chest Tube Drainage 70 120 14 Chest Tube 60 115 14 Chest Tube Right 10 5 0 Urine 815 1025 435 Other: Voiding Method Indwelling Catheter Indwelling Catheter Indwelling Catheter # Bowel Movements 1 1 ABP, PAP, CO, CI - Last Documented Arterial Blood Pressure 119/55 - Labs CBC & Chem 7: 12/02/23 12:36 12/02/23 05:20 Labs: Abnormal Lab Results - Last 24 Hours (Table) 11/29/23 12/01/23 12/01/23 Range/Units 06:15 16:33 17:52 WBC (3.8-10.6) k/uL RBC (3.80-5.40) m/uL Hgb (11.4-16.0) gm/dL Hct (34.0-46.0) % Neutrophils # (1.3-7.7) k/uL ABG pH (7.35-7.45) ABG pCO2 (35-45) mmHg ABG pO2 (83-108) mmHg ABG HCO3 (21-25) mmol/L ABG Total CO2 (19-24) mmol/L Potassium 3.4 L (3.5-5.1) mmol/L Carbon Dioxide (22-30) mmol/L Creatinine (0.52-1.04) mg/dL POC Glucose (mg/dL) 125 H (70-110) mg/dL Calcium (8.4-10.2) mg/dL Crossmatch See Detail 04/22/24 04/23/24 04/23/24 Range/Units 23:33 05:20 05:20 WBC 20.4 H (3.8-10.6) k/uL RBC 2.17 L (3.80-5.40) m/uL Hgb 6.4 L* (11.4-16.0) gm/dL Hct 20.1 L (34.0-46.0) % Neutrophils # 18.7 H (1.3-7.7) k/uL ABG pH (7.35-7.45) ABG pCO2 (35-45) mmHg ABG pO2 (83-108) mmHg ABG HCO3 (21-25) mmol/L ABG Total CO2 (19-24) mmol/L Potassium (3.5-5.1) mmol/L Carbon Dioxide 31 H (22-30) mmol/L Creatinine 0.42 L (0.52-1.04) mg/dL POC Glucose (mg/dL) 120 H (70-110) mg/dL Calcium 7.1 L (8.4-10.2) mg/dL Crossmatch 12/02/23 12/02/23 12/02/23 Range/Units 06:15 06:55 12:36 WBC 19.6 H (3.8-10.6) k/uL RBC 2.29 L (3.80-5.40) m/uL Hgb 7.0 L (11.4-16.0) gm/dL Hct 21.1 L (34.0-46.0) % Neutrophils # (1.3-7.7) k/uL ABG pH 7.47 H (7.35-7.45) ABG pCO2 46 H (35-45) mmHg ABG pO2 73 L (83-108) mmHg ABG HCO3 33 H (21-25) mmol/L ABG Total CO2 35 H (19-24) mmol/L Potassium (3.5-5.1) mmol/L Carbon Dioxide (22-30) mmol/L Creatinine (0.52-1.04) mg/dL POC Glucose (mg/dL) (70-110) mg/dL Calcium (8.4-10.2) mg/dL Crossmatch See Detail Microbiology - Last 24 Hours (Table) 11/26/23 12:30 Blood Culture - Final Blood
[2023-12-02] MEDS ORDERED: LIDOCAINE 1% (10MG/ML) FOR IV START INTRADERMA PRN (15:29)
[2023-12-02] MEDS: ACETAMINOPHEN IV (For NPO) 1,000 MG in EMPTY BAG 1 BAG IVPB PRN (15:55)
[2023-12-02] MEDS: ANIDULAFUNGIN 200 MG in SODIUM CHLORIDE 0.9% 200 ML IVPB ONE (16:04)
[2023-12-02] MEDS: LACTATED RINGERS 1,000 ML IV SCH (16:20)
--- NOTE | 2023-12-02 17:12 | P.PN ---
Subjective Progress Note Date: 12/02/23 This is a 43 year old female evaluated today in the intensive care unit. Patient is currently sedated and remains on the mechanical ventilator. Presents from the alf with shortness of breath and cough. Patient found to have bilateral pneumothorax and continues currently with right and left sided chest tubes. Chest xray today reveals continued diffuse bilateral airspace disease with extensive pleural parenchymal opacity. Continues on IV vancomycin due to MRSA bacteremia. White blood cell count today 24.2, hgb 7.1. Sodium 136, potassium 3.4. Remains on IV fentanyl, IV versed, IV propofol. Being considered from tracheostomy and PEG tube placement. Remains febrile with T-max 101.4 overnight. Unable to complete a review of systems as patient is currently intubated and sedated on the mechanical ventilator 12/01/2022 Patient is seen in follow-up continues on mechanical ventilation with multiple chest tubes and multiple consultations following. Plan is for PEG tube with general surgery and also discussing planning tracheostomy with CT surgery on Friday. Patient's hemoglobin found to be low under 7 and will transfuse 1 unit. No active bleeding noted and will follow-up with repeat labs. Patient is continued on vancomycin along with antifungals with infectious disease following closely. Continue with current regimen and will follow-up on the patient closely. Daily chest x-rays ordered and will await repeat labs. Review of systems: Unable to obtain as patient is on mechanical ventilation and sedated PHYSICAL EXAMINATION: GENERAL: The patient is alert and oriented x0, not in any acute distress. Intubated and sedated. Well developed, well nourished. Sedated. FiO2 is 50% with a PEEP of 5 HEENT: Pupils are round and equally reacting to light. EOMI. No scleral icterus. No conjunctival pallor. Normocephalic, atraumatic. No pharyngeal erythema. No thyromegaly. CARDIOVASCULAR: S1 and S2 present. No murmurs, rubs, or gallops. PULMONARY: Chest is clear to auscultation, no wheezing or crackles. ABDOMEN: Soft, nontender, nondistended, normoactive bowel sounds. No palpable or ganomegaly. MUSCULOSKELETAL: No joint swelling or deformity. EXTREMITIES: No cyanosis, clubbing, or pedal edema. NEUROLOGICAL: Unable to asses pt is sedated SKIN: No rashes. Assessment: Acute hypoxic respiratory failure requiring mechanical ventilation. Acute bilateral pneumonia complicated by bilateral pneumothoraces. Acute bilateral empyema, post bilateral chest tube insertion with purulent material draining from both lungs. MRSA bacteremia Anemia with iron studies revealing underlying iron deficiency. Acute septic shock, Acute leukocytosis secondary to above Morbid obesity Polysubstance abuse Hyponatremia Elevated LFTs Lactic acidosis GI prophylaxis DVT prophylaxis Lovenox Full Code Plan: Repeat labs in the AM, replace potassium. Hemoglobin was found to be 6.4 today and will be receiving a unit of PRBC. No active bleeding noted. Continue with enteral feedings with vital high protein at goal. Continue telemetry monitoring Continue vent management per ICU Aggressive bronchopulmonary hygiene Blood cultures growing MRSA, repeat blood cultures till clearance continue with IV vancomycin per ID. Patient is febrile and tachycardic will continue with current regimen Currently weaned off vasopressor support. Continue chest tube management per CT surgery, lytics instilled into the right chest tube on 11/24, no plan for surgical intervention. CT surgery planning for tracheostomy on Friday General surgery following and patient will be receiving PEG tube Critical care following ID following Due to multiple complex medical issues, overall prognosis is extremely poor and guarded at this time The impression and plan of care has been dictated by Lashon Veliz, Nurse Practitioner as directed. Dr. Luis MD I have performed a history and physical examination and medical decision making of this patient, discussed the same with the dictator, and agree with the dictators assessment and plan as written, documented as a scribe. Based on total visit time, I have performed more than 50% of this visit. Objective - Vital Signs Vital signs: Vital Signs Temp 100 F H 12/02/23 09:38 Pulse 105 H 12/02/23 09:38 Resp 24 12/02/23 09:38 BP 107/48 12/02/23 09:38 Pulse Ox 98 12/02/23 09:38 FiO2 40 12/02/23 09:00 Intake & Output 12/01/23 12/02/23 12/02/23 18:59 06:59 18:59 Intake Total 2127.070 1606.228 409 Output Total 885 1145 195 Balance 1242.070 461.228 214 Weight 126.9 kg 127.8 kg Intake: IV 1236 1236 309 Lactated Ringers 1,000 ml 1200 1200 300 @ 100 mls/hr IV .Q10H [facility] Rx#:[id number] Pressure bag 36 36 9 Intake, IV Titration 847.070 370.228 100 Amount Potassium Chloride 20 meq 100 In Water For Injection 1 100ml.bag @ 50 mls/hr IVPB Q2H [facility] Rx#: [id number] Vancomycin 2,000 mg In 500 Sodium Chloride 0.9% 500 ml 500 ml @ 167 mls/hr IVPB Q8H [facility] Rx#: [id number] fentaNYL (PF). 1,000 mcg 93.304 170.228 In Sodium Chloride 0.9% 80 ml @ 0.5 MCG/KG/HR 4. 99 mls/hr IV .Q20H3M [facility] Rx#:[id number] propofoL 1,000 mg In 253.766 100 100 Empty Bag 1 bag @ 15 MCG/ KG/MIN 8.981 mls/hr IV . Q11H9M [facility] Rx#:[id number] Oral 0 Tube Feeding 44 0 Blood Product 0 Rc As-1 Unit 0 [id number] Output: Chest Tube Drainage 70 120 Chest Tube 60 115 Chest Tube Right 10 5 Urine 815 1025 195 Other: Voiding Method Indwelling Catheter Indwelling Catheter # Bowel Movements 1 1 ABP, PAP, CO, CI - Last Documented Arterial Blood Pressure 115/51 - Labs CBC & Chem 7: 12/02/23 12:36 12/02/23 05:20 Labs: Abnormal Lab Results - Last 24 Hours (Table) 11/29/23 12/01/23 12/01/23 Range/Units 06:15 11:55 16:33 WBC (3.8-10.6) k/uL RBC (3.80-5.40) m/uL Hgb (11.4-16.0) gm/dL Hct (34.0-46.0) % Neutrophils # (1.3-7.7) k/uL ABG pH (7.35-7.45) ABG pCO2 (35-45) mmHg ABG pO2 (83-108) mmHg ABG HCO3 (21-25) mmol/L ABG Total CO2 (19-24) mmol/L Potassium 3.4 L (3.5-5.1) mmol/L Carbon Dioxide (22-30) mmol/L Creatinine (0.52-1.04) mg/dL POC Glucose (mg/dL) 120 H (70-110) mg/dL Calcium (8.4-10.2) mg/dL Crossmatch See Detail 12/01/23 12/01/23 12/02/23 Range/Units 17:52 23:33 05:20 WBC 20.4 H (3.8-10.6) k/uL RBC 2.17 L (3.80-5.40) m/uL Hgb 6.4 L* (11.4-16.0) gm/dL Hct 20.1 L (34.0-46.0) % Neutrophils # 18.7 H (1.3-7.7) k/uL ABG pH (7.35-7.45) ABG pCO2 (35-45) mmHg ABG pO2 (83-108) mmHg ABG HCO3 (21-25) mmol/L ABG Total CO2 (19-24) mmol/L Potassium (3.5-5.1) mmol/L Carbon Dioxide (22-30) mmol/L Creatinine (0.52-1.04) mg/dL POC Glucose (mg/dL) 125 H 120 H (70-110) mg/dL Calcium (8.4-10.2) mg/dL Crossmatch 12/02/23 12/02/23 12/02/23 Range/Units 05:20 06:15 06:55 WBC (3.8-10.6) k/uL RBC (3.80-5.40) m/uL Hgb (11.4-16.0) gm/dL Hct (34.0-46.0) % Neutrophils # (1.3-7.7) k/uL ABG pH 7.47 H (7.35-7.45) ABG pCO2 46 H (35-45) mmHg ABG pO2 73 L (83-108) mmHg ABG HCO3 33 H (21-25) mmol/L ABG Total CO2 35 H (19-24) mmol/L Potassium (3.5-5.1) mmol/L Carbon Dioxide 31 H (22-30) mmol/L Creatinine 0.42 L (0.52-1.04) mg/dL POC Glucose (mg/dL) (70-110) mg/dL Calcium 7.1 L (8.4-10.2) mg/dL Crossmatch See Detail - Last Hours (Table) 11/26/23 12:30 Blood Culture - Final Blood
[2023-12-02 18:13] LABS: Glucose,Whole Blood 96 mg/dL (70-110)
[2023-12-02 20:16] LABS: Basophils % (A) 0 %; Eosinophils # (A) 0.1 k/uL (0-0.7); Eosinophils % (A) 1 %; Hypochromasia Slight; Lymphocytes # (A) 0.7 k/uL (1.0-4.8); Lymphocytes % (A) 5 %; MCHC 32.5 g/dL (31.0-37.0); MCV 92.2 fL (80.0-100.0); Mean Platelet Volume 9.3; Monocytes # (A) 0.3 k/uL (0-1.0); Monocytes % (A) 2 %; Neutrophils # (A) 14.3 k/uL (1.3-7.7); Neutrophils % (A) 91 %; Platelet Count 241 k/uL (150-450); Poikilocytosis Slight; RBC 2.17 m/uL (3.80-5.40); RDW 14.7 % (11.5-15.5); WBC 15.7 k/uL (3.8-10.6)
[2023-12-02 20:52] LABS: HGB 6.5 gm/dL (11.4-16.0)
[2023-12-02] MEDS: POTASSIUM BICARBONATE/CIT AC 20 MEQ TABLET.EFF NG-TUBE SCH (21:21)
[2023-12-03 00:13] LABS: Glucose,Whole Blood 81 mg/dL (70-110)
[2023-12-03 01:31] LABS: Basophils % (A) 0 %; Eosinophils # (A) 0.2 k/uL (0-0.7); Eosinophils % (A) 1 %; HCT 27.3 % (34.0-46.0); Hypochromasia Slight; Lymphocytes # (A) 1.2 k/uL (1.0-4.8); Lymphocytes % (A) 5 %; MCH 28.9 pg (25.0-35.0); MCHC 31.3 g/dL (31.0-37.0); MCV 92.2 fL (80.0-100.0); Mean Platelet Volume 9.1; Monocytes # (A) 0.3 k/uL (0-1.0); Monocytes % (A) 2 %; Neutrophils # (A) 19.5 k/uL (1.3-7.7); Neutrophils % (A) 92 %; Platelet Count 315 k/uL (150-450); RBC 2.96 m/uL (3.80-5.40); RDW 14.4 % (11.5-15.5); WBC 21.3 k/uL (3.8-10.6)
[2023-12-03 02:06] LABS: HGB 8.5 gm/dL (11.4-16.0)
[2023-12-03 04:40] LABS: Basophils % (A) 0 %; Eosinophils # (A) 0.1 k/uL (0-0.7); Eosinophils % (A) 1 %; HCT 23.8 % (34.0-46.0); HGB 7.6 gm/dL (11.4-16.0); Hypochromasia Slight; Lymphocytes # (A) 0.7 k/uL (1.0-4.8); Lymphocytes % (A) 3 %; MCH 29.2 pg (25.0-35.0); MCV 91.5 fL (80.0-100.0); Mean Platelet Volume 9.3; Monocytes # (A) 0.3 k/uL (0-1.0); Monocytes % (A) 2 %; Neutrophils # (A) 20.1 k/uL (1.3-7.7); Neutrophils % (A) 94 %; Platelet Count 279 k/uL (150-450); Poikilocytosis Slight; RDW 14.7 % (11.5-15.5); WBC 21.4 k/uL (3.8-10.6)
[2023-12-03 04:56] LABS: African American GFR (CKD) >90 (>60 ml/min/1.73 sqM); Anion Gap 0 mmol/L; Blood Urea Nitrogen 8 mg/dL (7-17); Calcium 7.4 mg/dL (8.4-10.2); Carbon Dioxide 32 mmol/L (22-30); Chloride 106 mmol/L (98-107); Glucose 82 mg/dL (74-99); Non-African American GFR(CKD) >90 (>60 ml/min/1.73 sqM); Potassium 3.6 mmol/L (3.5-5.1); Sodium 138 mmol/L (137-145)
[2023-12-03] MEDS: POTASSIUM CHLORIDE 10 MEQ in WATER FOR INJECTION 1 100ML.BAG IVPB SCH (05:27)
[2023-12-03 05:34] LABS: Glucose,Whole Blood 84 mg/dL (70-110)
[2023-12-03 05:59] LABS: ABG Base Excess 7.7 mmol/L; ABG HCO3 32 mmol/L (21-25); ABG Oxygen Saturation 97.5 % (94-97); ABG PCO2 44 mmHg (35-45); ABG PH 7.47 (7.35-7.45); ABG PO2 81 mmHg (83-108); ABG TCO2 33 mmol/L (19-24); Allen Test Performed? Yes
[2023-12-03] MEDS: ANIDULAFUNGIN 100 MG in SODIUM CHLORIDE 0.9% 100 ML IVPB SCH (08:06)
[2023-12-03] MEDS: VANCOMYCIN TROUGH DUE 1 EACH MISC MISCELLANE ONE (09:24)
--- NOTE | 2023-12-03 10:11 | P.OP ---
Date of Procedure: 12/03/23 Preoperative Diagnosis: malnutrition Postoperative Diagnosis: malnutrition Procedure(s) Performed: EGD with PEG tube placement Anesthesia: RANDY Surgeon: Delbert Johnson Estimated Blood Loss (ml): 2 Pathology: none sent Condition: stable Disposition: ICU Description of Procedure: the patient received IV sedation. Patient is morbidly obese. Her BMI was 46. Next the gastroscope placed oropharynx passed in the esophagus and stomach. There is no evidence of any outlet obstruction. Stomach was insufflated with air. The light reflux seen the anterior abdominal wall. abdominal wall was quite thick.The abdomen was prepped and draped usual fashion. The skin was incised. And the needles placed and stomach under direct visualization. The needle was snared. And the wires placed through the needle and the wire was snared and brought the oropharynx. The PEG tube was placed over top the wire brought down to the stomach. The PEG tube was secured. At the 5cm marcello. The one-piece bolster was used. Patient tolerated procedure well.
--- NOTE | 2023-12-03 10:16 | XR ---
EXAMINATION TYPE: XR chest 1V portable DATE OF EXAM: 12/03/2023 Comparison: 12/02/2023 Clinical History: 43-year-old female mechanical ventilation Findings: ET tube tip estimated to be 1.1 cm from the alicia. NG tube courses below the diaphragm. Bilateral ch est tubes. Ongoing diffuse bilateral airspace disease, worsened in the interval. Loculated pleural ai r collection are free of the left base estimated at 6.6 cm is not well seen given the diffuse opaciti es. Left subclavian CVC tip cavoatrial junction region. Impression: 1. ET tube tip estimated 1.1 cm from the alicia. Pull back 1.5 cm and reassess at follow-up. 2. Severe diffuse bilateral airspace disease, worsening in the interval. 3. Known loculated pleural air collection periphery of the left base difficult to see due to the diff use lung disease.
[2023-12-03] MEDS ORDERED: Potassium Replacement Protocol 1 EACH MISC MISCELLANE PRN (10:49)
[2023-12-03 11:35] LABS: Glucose,Whole Blood 84 mg/dL (70-110)
--- NOTE | 2023-12-03 11:39 | P.PN ---
Subjective Progress Note Date: 12/03/23 Principal diagnosis: Respiratory failure. Reevaluate today on11/27/23, remains in the ICU, intubated and mechanically ventilated, on assist-control rate of 42 tidal volume 450 FiO2 60% PEEP of 5 ABG showed a pO2 of 72 pCO2 43 pH of 7.49. Patient remains fully sedated she is on fentanyl 1.5 mcg/kg/min she is also on Versed 3 mg/h. Propofol at 50 mcg/kg/min. Patient remains hemodynamically unstable requiring norepinephrine at 0.11 mcg/kg/min she is on vital HP at 16 mL/h. She is also on LR at 150 cc/h. Today I did not make any changes in her ventilator settings. Her chest x-ray is basically about the same continues to show right-sided pneumothorax but I do not see an air leak today on the right side but she does have an air leak on the left side and continues to have significant purulent drainage from the chest tube on the left side. 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 Not much of a change overnight, patient remains critically ill. Continues to have leukocytosis with WBC count of 28.2 hemoglobin 8.5 basic metabolic profile is normal and renal profile is normal Reevaluate today on 11/28/2023, remains in the ICU intubated and mechanically ventilated. Patient is on assist-control rate of 52 tidal volume 450 FiO2 60% PEEP of 5 ABG showed a pO2 of 73 pCO2 37 pH of 7.52 hence FiO2 was cut down to 55% and rate to cut down to 28. Patient continues to have bilateral chest tubes, the left-sided chest tube has ongoing continuous leak, right-sided chest tube has intermittent airleak. However the patient is maintaining her adequate tidal volumes which are about 450. Patient remains on propofol at 50 mcg/kg/min Versed 3 mg/h Fentanyl 1.5 mcg/kg/h patient is also receiving norepinephrine at 0.08 mcg/kg/min. Her IV fluid which is LR Down to 100 cc/h. She is on vital HP patient had a Tmax of 102.9 yesterday, cultures of blood and pleural effusion are positive for MRSA, patient remains on vancomycin. If the patient continues to have positive blood cultures in the next couple of days, may have to consider OSIRIS. The cultures from the are pending. Chest x-ray continues to show significant hydropneumothorax on the left side, and she has mostly hydrothorax on the right side. I could not appreciate a pneumothorax on the right side labs today showed leukocytosis with WBC of 23.1 hemoglobin 7.4, basic metabolic profile is normal renal profile is normal today on 11/29/2023 patient remains intubated and mechanically ventilated, she is on assist-control rate of 28 tidal volume 450 FiO2 55% PEEP of 5 ABG showed a pO2 of 94 pCO2 34 pH of 7.53, hence her vent settings were changed to cut down her rate to 26 cut down FiO2 to 50% And PEEP at 5. Patient's hemoglobin is low today at 6.8, and she will receive a unit of packed RBCs. Patient is being treated for MRSA pneumonia, bacteremia, and empyema. Remains on propofol at 30 mcg/kg/min Fentanyl 1 mcg/kg/h she is also on Versed which I will discontinue today 2 mg/h. Norepinephrine 0.02 mcg/kg/min and IV fluid 0.9 normal saline at 100 cc/h. Chest x-ray continues to show left-sided loculated pneumothorax, and she continues to have ongoing airleak from the left-sided chest tube. The right-sided chest tube seems to be occluded, hence we will ask thoracic surgery to flush the chest tube, and the patient has what seems to be a pleural effusion on the right side, drainage is serosanguineous. Considering the overall picture, the patient is again not quite ready for any weaning, however over the next couple of days as we cut down on sedation, may start waking the patient up and give the patient weaning trials if possible. At this point she remains quite ill, and I doubt if she will tolerate any form of weaning her FiO2 just dropped down from 55 to 50%., Continues to have leukocytosis but improving WBC count is 24.7 hemoglobin 6.8 and she will receive a unit of packed RBCs. Basic metabolic profile is normal renal profile is normal and urine output is excellent Patient was reexamined today on 11/30/2023, remains intubated and mechanically ventilated, remains on vancomycin, patient is on assist-control rate of 24 tidal volume 450 FiO2 50% and PEEP of 5 ABG showed a pO2 of 78 pCO2 48 pH of 7.40 hence no changes were made in vent settings. Chest x-ray showed significant bilateral airspace disease loculated left-sided pneumothorax no clear-cut evidence of pneumothorax on the right. Chest x-ray is also suggestive of interstitial edema/infiltrates, hence the patient will be given a trial of diuresis. Hemoglobin is down to 7.4, patient did receive 1 unit of packed RBCs: WBC count remains high at 25.8 but steadily improving. Patient continues to have air leak in the left side chest tube, but no airleak noted in the right- sided chest tube. Drips bautista the patient is on fentanyl at 1 mcg/kg/h IV fluid LR at 100 cc/h norepinephrine at 0.04 mcg/kg/min propofol at 30 mcg/kg/min vital HP at 44/44. Patient did receive 20 mg of Lasix earlier while on rounds. Her arterial line went and nonfunctional, hence a new arterial line was placed in the left radial artery. Father called about his daughter, and I discussed her condition over the phone with her father and updated him on the situation. He is aware that she is critically ill, and at this point prognosis is relatively guarded. Progress note dated December 01, 2023. This is a 43-year-old female who was admitted on November 22. The patient came in with bilateral pneumonia and empyema. She was intubated for respiratory failure on November 23. Sampling has revealed evidence of methicillin-resistant Staph aureus. She remains on the ventilator.Ventilator settings include volume assist-control, rate 24, tidal volume 450, FiO2 50%, PEEP of 5. Blood gases show pO2 100, pCO2 of 44, pH is 7.47. The patient remains on propofol at 30 mcg/kg/min, fentanyl at 1 mcg/kg/h, lactated Ringer's at 100 cc an hour, and vital AF at 44 cc an hour, which is goal. The patient does continue on vancomycin for her MRSA infection. Current laboratory data includes a white count 24.2, hemoglobin 7.1, hematocrit 22.9, and platelet count 242,000. Sodium 136, potassium 3.2, chlorides 104, CO2 31, BUN 10, creatinine 0.39. Glucose is 111. Calcium is 7.1. Nasal swabs, sputum, blood, wound culture, and pleural fluid, are all consistent with methicillin-resistant Staph aureus. Chest x-ray shows continued bilateral diffuse airspace disease. Bilateral pleural catheters are seen. Progress note dated December 02 2023. This is a 43-year-old female who was admitted on November 22. The patient came in with bilateral pneumonia and empyema. She was intubated for respiratory failure on November 23. Sampling has revealed evidence of methicillin-resistant Staph aureus. She remains on the ventilator. Currently, she is on volume assist- control, rate 24, tidal volume 450, FiO2 50%, PEEP of 5. Blood gases show pO2 73, pCO2 46, pH is 7.47. The patient is getting lactated Ringer's at 100 cc an hour, propofol at 35 mcg/kg/min, and fentanyl at 2 mcg/kg/h. Her tube feedings are on hold, as the patient is to receive a PEG tube today. The patient will have a tracheostomy performed on Friday. White count is 20.4, hemoglobin 6.4, hematocrit 20.1, and platelet count was normal. Sodium 138, potassium 3.7, chlorides 105, CO2 31, BUN 10, creatinine 0.42. Glucose is 95. Calcium 7.1, magnesium 2.0. Nasal swab, pleural fluid, sputum, and blood cultures, are all positive for methicillin-resistant Staph aureus. Chest x-ray shows diffuse bilateral infiltrates. Progress note dated December 03, 2023. 43-year-old female who was admitted on November 22. She was admitted with a diagnosis of bilateral pneumonia, and empyema. She was intubated for respiratory failure on November 23. Thus far, sampling, has revealed evidence of methicillin-resistant Staph aureus. She remains on the ventilator. Settings include volume assist-control, rate 24, tidal volume 450, FiO2 50%, PEEP of 5. Blood gases show pO2 of 81, pCO2 of 44, pH is 7.47. She remains on propofol at 50 mcg/kg/min, lactated Ringer's at 100 cc an hour, and fentanyl at 1.5 mcg/kg/h. She is going to have a PEG tube placed today, and hopefully a tracheostomy performed tomorrow. She continues on vancomycin, and infectious disease doctor has added Eraxis. In addition, the patient has received a total of 3 units of packed red blood cells. White count 21.4, hemoglobin 7.6, hematocrit 23.8, and platelet count 279,000. Sodium 138, potassium 3.6, chlorides 106, CO2 32, BUN 8, creatinine 0.38. Glucose is 84. Calcium 7.4. Chest x-ray is essentially unchanged, and shows diffuse bilateral and severe airspace disease. Objective - Vital Signs Vital signs: Vital Signs Temp 100.2 F H 12/03/23 08:00 Pulse 105 H 12/03/23 10:05 Resp 21 12/03/23 10:05 BP 114/65 12/03/23 09:35 Pulse Ox 94 L 12/03/23 10:05 FiO2 50 12/03/23 10:45 Intake & Output 12/02/23 12/03/23 12/03/23 18:59 06:59 18:59 Intake Total 2723.730 2006.917 481.356 Output Total 879 955 250 Balance 3740.143 1395.917 231.356 Weight 127.8 kg 127.4 kg Intake: IV 1936 1336 412 ACETAMINOPHEN IV (For NPO 100 ) 1,000 mg In Empty Bag 1 bag @ 400 mls/hr IVPB Q6HR PRN Rx#:[id number] Anidulafungin 100 mg In 100 100 100 Sodium Chloride 0.9% 100 ml @ 84 mls/hr IVPB DAILY [facility] Rx#:[id number] Lactated Ringers 1,000 ml 1200 1200 300 @ 100 mls/hr IV .Q10H [facility] Rx#:[id number] Pressure bag 36 36 12 Vancomycin 2,000 mg In 500 Sodium Chloride 0.9% 500 ml 500 ml @ 167 mls/hr IVPB Q8H [facility] Rx#: [id number] Intake, IV Titration 477.730 360.917 69.356 Amount fentaNYL (PF). 1,000 mcg 187.070 160.917 69.356 In Sodium Chloride 0.9% 80 ml @ 0.5 MCG/KG/HR 4. 99 mls/hr IV .Q20H3M [facility] Rx#:[id number] propofoL 1,000 mg In 290.660 200 Empty Bag 1 bag @ 15 MCG/ KG/MIN 8.981 mls/hr IV . Q11H9M [facility] Rx#:[id number] Blood Product 310 310 Rc As-1 Unit 310 [id number] Rc As-1 Unit 310 [id number] Output: Chest Tube Drainage 19 25 Chest Tube 19 25 Chest Tube Right 0 Urine 860 930 250 Other: Voiding Method Indwelling Catheter Indwelling Catheter Indwelling Catheter # Bowel Movements 1 ABP, PAP, CO, CI - Last Documented Arterial Blood Pressure 126/53 - Exam No acute distress, sedated, with an orally placed endotracheal tube. HEENT examination is grossly unremarkable. Neck supple. Full range of motion. No adenopathy thyromegaly or neck vein di stention. Cardiovascular examination reveals regular rhythm rate. S1-S2 normal. No S3 or S4. No discernible murmur noted. Heart rate 99 bpm. Lungs reveal bilateral coarse rhonchi. No wheezes or crackles. Breath sounds equal. Saturations are 95 %. Abdomen soft, with bowel sounds. No masses. Abdomen obese. Extremities are intact. No cyanosis clubbing or edema. Skin is without rash or lesion. Neurologic examination cannot be assessed at this time. - Labs CBC & Chem 7: 12/03/23 04:12/03/23 09:00 Labs: Abnormal Lab Results - Last 24 Hours (Table) 12/02/23 12/02/23 12/02/23 Range/Units 06:55 12:36 20:00 WBC 19.6 H 15.7 H (3.8-10.6) k/uL RBC 2.29 L 2.17 L (3.80-5.40) m/uL Hgb 7.0 L 6.5 L* (11.4-16.0) gm/dL Hct 21.1 L 20.0 L (34.0-46.0) % Neutrophils # 14.3 H (1.3-7.7) k/uL Lymphocytes # 0.7 L (1.0-4.8) k/uL ABG pH (7.35-7.45) ABG pO2 (83-108) mmHg ABG HCO3 (21-25) mmol/L ABG Total CO2 (19-24) mmol/L ABG O2 Saturation (94-97) % Carbon Dioxide (22-30) mmol/L Creatinine (0.52-1.04) mg/dL Calcium (8.4-10.2) mg/dL Crossmatch See Detail 12/03/23 12/03/23 12/03/23 Range/Units 01:17 04:24 04:24 WBC 21.3 H 21.4 H (3.8-10.6) k/uL RBC 2.96 L 2.60 L (3.80-5.40) m/uL Hgb 8.5 L D 7.6 L (11.4-16.0) gm/dL Hct 27.3 L 23.8 L (34.0-46.0) % Neutrophils # 19.5 H 20.1 H (1.3-7.7) k/uL Lymphocytes # 0.7 L (1.0-4.8) k/uL ABG pH (7.35-7.45) ABG pO2 (83-108) mmHg ABG HCO3 (21-25) mmol/L ABG Total CO2 (19-24) mmol/L ABG O2 Saturation (94-97) % Carbon Dioxide 32 H (22-30) mmol/L Creatinine 0.38 L (0.52-1.04) mg/dL Calcium 7.4 L (8.4-10.2) mg/dL Crossmatch 12/03/23 Range/Units 05:57 WBC (3.8-10.6) k/uL RBC (3.80-5.40) m/uL Hgb (11.4-16.0) gm/dL Hct (34.0-46.0) % Neutrophils # (1.3-7.7) k/uL Lymphocytes # (1.0-4.8) k/uL ABG pH 7.47 H (7.35-7.45) ABG pO2 81 L (83-108) mmHg ABG HCO3 32 H (21-25) mmol/L ABG Total CO2 33 H (19-24) mmol/L ABG O2 Saturation 97.5 H (94-97) % Carbon Dioxide (22-30) mmol/L Creatinine (0.52-1.04) mg/dL Calcium (8.4-10.2) mg/dL Crossmatch Microbiology - Last 24 Hours (Table) 11/27/23 09:40 Blood Culture - Final Blood Assessment and Plan Assessment: Acute hypoxemic respiratory failure, S/P intubation and mechanical ventilation on November 23. Acute bilateral methicillin-resistant Staph aureus pneumonia, with empyema, and hydropneumothorax. PEG tube placement December 03, 2023. S/P bilateral chest tube placement. Acute sepsis with septic shock. History of polysubstance abuse. History of multiple sclerosis. History of anxiety/depression. History of interstitial cystitis and urinary tract infection. Fibromyalgia. Chronic pain syndrome. History of seizure disorder. Degenerative joint disease. Morbid obesity. Essential hypertension. Plan: Plan dated December 01, 2023. We did speak to Dr. Ryoal about this patient. He feels that any additional surgical intervention, is not warranted at this time. Labs, x-rays, medications are reviewed. The patient will likely end up with a tracheostomy. Dr. Royal is willing to do it. In addition, we will ask our surgical colleagues, for PEG tube placement. The patient continues on propofol, fentanyl, and lactated Ringer's. She continues on vancomycin for her infection. Labs, x-rays, medications are all reviewed. The patient's overall prognosis remains very guarded. We will continue to follow the patient, make recommendations. Plan dated December 02, 2023. The patient remains on lactated Ringer's, propofol, and fentanyl. Tube feedings are on hold, for PEG tube placement today. Tracheostomy will be performed on Friday, by Dr. Royal. Labs, x-rays, and medications are all reviewed. The patient continues on antibiotics for her methicillin-resistant Staph aureus infection. We will continue to follow and make recommendations along the way. The patient continues on vancomycin. The patient's overall prognosis remains very guarded. Plan dated December 03, 2023. The patient had a PEG tube placed today. The patient is seen again in the intensive care unit, room 254. She remains on the ventilator. Blood gases are reasonable, showing a very mild metabolic alkalosis. She remains on propofol at 50 mcg/kg/min, lactated Ringer's at 100 cc an hour, and fentanyl at 1.5 mcg/kg/h. The tracheostomy is to be performed tomorrow. The patient continues on vancomycin, and infectious diseases have just added a Eraxis. Tube feedings are currently on hold. Labs, x-rays, and medications are reviewed. Overall prognosis remains very guarded. No additional recommendations are made. We will continue to follow. Time with Patient: Greater than 30
[2023-12-03] MEDS ORDERED: PROPOFOL 10 MG/ML 20 ML VIAL IV ONE (11:48)
[2023-12-03] MEDS ORDERED: ROCURONIUM 10 MG/ML (5 ML VIAL) IV ONE (11:48)
[2023-12-03] MEDS ORDERED: PHENYLEPHRINE-0.9% NACL SYG 1,000 MCG/10 ML SYRINGE ONE (11:48)
[2023-12-03] MEDS ORDERED: MIDAZOLAM 2 MG/2 ML VIAL ONE (11:48)
[2023-12-03] MEDS ORDERED: KETAMINE HCL IN 0.9 % NACL 50 MG/5 ML SYRINGE ONE (11:48)
--- NOTE | 2023-12-03 12:30 | P.PN ---
Subjective Progress Note Date: 12/03/23 Principal diagnosis: Reason for follow-up is sepsis MRSA pneumonia bacteremia and empyema Patient is a 43-year-old female past medical history significant for hypertension fibromyalgia asthma reflux seizure disorder currently incarcerated and presented from the local senior care for evaluation of increasing shortness of breath and chest pain, patient did have evidence of bilateral hydropneumothorax requiring bilateral chest tube placement and did have a positive blood culture with MRSA. On today's visit that is 12/03/2023, patient did have a low-grade fever 100.2 F this morning the patient is hemodynamically stable not requiring any pressor support patient remains to be on the vent no significant purulent secretions through the ET or any other changes reported by the nursing staff. Patient white count is 21.4, creatinine is 0.38 vancomycin trough is 17.5 blood culture repeat has been negative Objective - Vital Signs Vital signs: Vital Signs Temp 100.2 F H 12/03/23 08:00 Pulse 111 H 12/03/23 12:00 Resp 24 12/03/23 12:00 BP 114/65 12/03/23 12:00 Pulse Ox 96 12/03/23 12:00 FiO2 100 12/03/23 12:00 Intake & Output 12/02/23 12/03/23 12/03/23 18:59 06:59 18:59 Intake Total 2723.730 2006.917 481.356 Output Total 879 955 260 Balance 7727.478 8631.917 221.356 Weight 127.8 kg 127.4 kg Intake: IV 1936 1336 412 ACETAMINOPHEN IV (For NPO 100 ) 1,000 mg In Empty Bag 1 bag @ 400 mls/hr IVPB Q6HR PRN Rx#:[id number] Anidulafungin 100 mg In 100 100 100 Sodium Chloride 0.9% 100 ml @ 84 mls/hr IVPB DAILY [facility] Rx#:[id number] Lactated Ringers 1,000 ml 1200 1200 300 @ 100 mls/hr IV .Q10H [facility] Rx#:[id number] Pressure bag 36 36 12 Vancomycin 2,000 mg In 500 Sodium Chloride 0.9% 500 ml 500 ml @ 167 mls/hr IVPB Q8H [facility] Rx#: [id number] Intake, IV Titration 477.730 360.917 69.356 Amount fentaNYL (PF). 1,000 mcg 187.070 160.917 69.356 In Sodium Chloride 0.9% 80 ml @ 0.5 MCG/KG/HR 4. 99 mls/hr IV .Q20H3M [facility] Rx#:[id number] propofoL 1,000 mg In 290.660 200 Empty Bag 1 bag @ 15 MCG/ KG/MIN 8.981 mls/hr IV . Q11H9M [facility] Rx#:[id number] Blood Product 310 310 Rc As-1 Unit 310 [id number] As-1 Unit 310 [id number] Output: Chest Tube Drainage 19 25 Chest Tube 19 25 Chest Tube Right 0 Urine 860 930 250 Estimated Blood Loss 10 Other: Voiding Method Indwelling Catheter Indwelling Catheter Indwelling Catheter # Bowel Movements 1 ABP, PAP, CO, CI - Last Documented Arterial Blood Pressure 119/63 - Exam GENERAL DESCRIPTION: Middle-aged female intubated on the vent RESPIRATORY SYSTEM: Unlabored breathing , coarse breath sounds bilaterally HEART: S1 S2 regular rate and rhythm , ABDOMEN: Soft , no tenderness EXTREMITIES: No edema feet - Labs CBC & Chem 7: 12/03/23 04:24 12/03/23 09:00 Labs: Abnormal Lab Results - Last 24 Hours (Table) 12/02/23 12/02/23 12/02/23 Range/Units 06:55 12:36 20:00 WBC 19.6 H 15.7 H (3.8-10.6) k/uL RBC 2.29 L 2.17 L (3.80-5.40) m/uL Hgb 7.0 L 6.5 L* (11.4-16.0) gm/dL Hct 21.1 L 20.0 L (34.0-46.0) % Neutrophils # 14.3 H (1.3-7.7) k/uL Lymphocytes # 0.7 L (1.0-4.8) k/uL ABG pH (7.35-7.45) ABG pO2 (83-108) mmHg ABG HCO3 (21-25) mmol/L ABG Total CO2 (19-24) mmol/L ABG O2 Saturation (94-97) % Carbon Dioxide (22-30) mmol/L Creatinine (0.52-1.04) mg/dL Calcium (8.4-10.2) mg/dL Crossmatch See Detail 12/03/23 12/03/23 12/03/23 Range/Units 01:17 04:24 04:24 WBC 21.3 H 21.4 H (3.8-10.6) k/uL RBC 2.96 L 2.60 L (3.80-5.40) m/uL Hgb 8.5 L D 7.6 L (11.4-16.0) gm/dL Hct 27.3 L 23.8 L (34.0-46.0) % Neutrophils # 19.5 H 20.1 H (1.3-7.7) k/uL Lymphocytes # 0.7 L (1.0-4.8) k/uL ABG pH (7.35-7.45) ABG pO2 (83-108) mmHg ABG HCO3 (21-25) mmol/L ABG Total CO2 (19-24) mmol/L ABG O2 Saturation (94-97) % Carbon Dioxide 32 H (22-30) mmol/L Creatinine 0.38 L (0.52-1.04) mg/dL Calcium 7.4 L (8.4-10.2) mg/dL Crossmatch 12/03/23 Range/Units 05:57 WBC (3.8-10.6) k/uL RBC (3.80-5.40) m/uL Hgb (11.4-16.0) gm/dL Hct (34.0-46.0) % Neutrophils # (1.3-7.7) k/uL Lymphocytes # (1.0-4.8) k/uL ABG pH 7.47 H (7.35-7.45) ABG pO2 81 L (83-108) mmHg ABG HCO3 32 H (21-25) mmol/L ABG Total CO2 33 H (19-24) mmol/L ABG O2 Saturation 97.5 H (94-97) % Carbon Dioxide (22-30) mmol/L Creatinine (0.52-1.04) mg/dL Calcium (8.4-10.2) mg/dL Crossmatch Microbiology - Last 24 Hours (Table) 11/27/23 09:40 Blood Culture - Final Blood Assessment and Plan (1) Empyema Current Visit: Yes Status: Acute Code(s): J86.9 - PYOTHORAX WITHOUT FISTULA SNOMED Code(s): 296591077 (2) MRSA bacteremia Current Visit: Yes Status: Acute Code(s): R78.81 - BACTEREMIA; B95.62 - METHICILLIN RESIS STAPH INFCT CAUSING DISEASES CLASSD [id number] SNOMED Code(s): 51218634781310421 (3) Pneumonia Current Visit: Yes Status: Acute Code(s): J18.9 - PNEUMONIA, UNSPECIFIED ORGANISM SNOMED Code(s): 086019221 (4) Pneumothorax Current Visit: Yes Status: Acute Code(s): J93.9 - PNEUMOTHORAX, UNSPECIFIED SNOMED Code(s): 03225551 Plan: 1patient presented to hospital with sepsis in this patient who did have a fever tachycardia elevated white count source is pulmonary in this patient noted evidence of bilateral pneumothorax and effusion with question of complicated pneumonia/empyema keeping in mind the patient is from local [facility] will need to cover for resistant gram-positive such as MRSA and gram-negative pathogen 2-patient blood sputum and pleural fluid culture with MRSA 3-Patient did clear her bacteremia as the blood culture from 11/26/2023 as well as 11/27/2023 has been negative 4-patient did have improvement in her fever pattern white count slightly up today will be monitored closely Vanco level is therapeutic with a trough of 17.5, continue with the vancomycin 5-with concern for oropharyngeal candidiasis patient is currently covered with Eraxis Dictation was produced using [employer] dictation software. please excuse any grammatical, word or spelling errors. Time with Patient: Less than 30
--- NOTE | 2023-12-03 12:35 | P.OP ---
Date of Procedure: 12/03/23 Preoperative Diagnosis: respiratory failure Postoperative Diagnosis: same Procedure(s) Performed: tracheostomy Anesthesia: RANDY Surgeon: Delbert Johnson Pathology: none sent Condition: stable Disposition: ICU Operative Findings: #8 [place]inn flange Description of Procedure: The patient's placed on the bed in the supine position. The patient received general anesthesia. The neck was prepped and draped in usual sterile fashion. A standard transverse skin incision was made approximately 2 cm above the sternal notch. Using electrocautery the subcutaneous tissues were divided. The platysma was divided. A Wheatlander retractor was placed in the wound. Next the strap muscles were divided in the midline. Another weatlander retractor was placed the wound. The pretracheal fat was then divided with left cautery. The trachea was exposed. At this point the [employer] advance the and the tracheal tube into the right mainstem bronchus. The balloon was inflated. A tracheotomy was then performed between the second and third tracheal rings. The perivascular tissues a gracilis the trachea. The endotracheal tube was brought back under direct vision. And then the #8 [place] tracheostomy tube was placed into the trachea. End-tidal CO2 was confirmed. The patient had been connected to the ventilator. The patient was ventilated satisfactory. The skin incision site was then closed with 3-0 nylon after the retractors were withdrawn. An umbilical tie was used to secure the tracheostomy tube.
[2023-12-03] MEDS: POTASSIUM BICARBONATE/CIT AC 20 MEQ TABLET.EFF NG-TUBE SCH (13:16)
[2023-12-03 18:14] LABS: Glucose,Whole Blood 80 mg/dL (70-110)
[2023-12-03 23:51] LABS: Glucose,Whole Blood 82 mg/dL (70-110)
--- NOTE | 2023-12-04 03:26 | P.PN ---
Subjective Progress Note Date: 12/03/23 This is a 43 year old female evaluated today in the intensive care unit. Patient is currently sedated and remains on the mechanical ventilator. Presents from the halfway with shortness of breath and cough. Patient found to have bilateral pneumothorax and continues currently with right and left sided chest tubes. Chest xray today reveals continued diffuse bilateral airspace disease with extensive pleural parenchymal opacity. Continues on IV vancomycin due to MRSA bacteremia. White blood cell count today 24.2, hgb 7.1. Sodium 136, potassium 3.4. Remains on IV fentanyl, IV versed, IV propofol. Being considered from tracheostomy and PEG tube placement. Remains febrile with T-max 101.4 overnight. Unable to complete a review of systems as patient is currently intubated and sedated on the mechanical ventilator 12/02/2023 Patient is seen in follow-up continues on mechanical ventilation with multiple chest tubes and multiple consultations following. Plan is for PEG tube with general surgery and also discussing planning tracheostomy with CT surgery on Friday. Patient's hemoglobin found to be low under 7 and will transfuse 1 unit. No active bleeding noted and will follow-up with repeat labs. Patient is continued on vancomycin along with antifungals with infectious disease following closely. Continue with current regimen and will follow-up on the patient closely. Daily chest x-rays ordered and will await repeat labs. 12/03/2023 Patient is seen and evaluated in follow-up today is status post PEG tube placement and currently undergoing prep for tracheostomy. Tube feedings are on hold and will be resumed once cleared by surgery. Hemoglobin is stable although patient is status post 2 units yesterday and hemoglobin is 7.6. There is no active bleeding noted and will follow-up with repeat labs and transfuse if 7 or less. Patient continues on antibiotic therapy with infectious disease following. Patient has been having low-grade temps intermittently as well. Overall prognosis is guarded. Review of systems: Unable to obtain as patient is on mechanical ventilation and sedated PHYSICAL EXAMINATION: GENERAL: The patient is alert and oriented x0, not in any acute distress. I ntubated and sedated. Well developed, well nourished. Sedated. FiO2 is 50% with a PEEP of 5 HEENT: Pupils are round and equally reacting to light. EOMI. No scleral icterus. No conjunctival pallor. Normocephalic, atraumatic. No pharyngeal erythema. No thyromegaly. CARDIOVASCULAR: S1 and S2 present. No murmurs, rubs, or gallops. PULMONARY: Chest is clear to auscultation, no wheezing . Faint crackles noted on the right bases ABDOMEN: Soft, obese. Nontender, nondistended, normoactive bowel sounds. No palpable organomegaly. MUSCULOSKELETAL: No joint swelling or deformity. EXTREMITIES: No cyanosis, clubbing, or pedal edema. NEUROLOGICAL: Unable to asses pt is sedated SKIN: No rashes. Assessment: Acute hypoxic respiratory failure requiring mechanical ventilation secondary to acute bilateral pneumonia, status post PEG and trach placement on 12/03/2023. Acute bilateral pneumonia complicated by bilateral pneumothoraces. Acute bilateral empyema, post bilateral chest tube insertion with purulent material draining from both lungs. MRSA bacteremia Anemia with iron studies revealing underlying iron deficiency. Status post 2 units PRBC on 12/02/2023 Acute septic shock Acute leukocytosis secondary to above Morbid obesity Polysubstance abuse Hyponatremia Elevated LFTs Lactic acidosis GI prophylaxis DVT prophylaxis Lovenox Full Code Plan: Repeat labs in the AM, replace electrolytes per protocol Hemoglobin is improved at 7.6 today and is status post 2 unit of PRBC. No active bleeding noted. Tube feedings currently on hold as patient is status post PEG tube placement today Currently undergoing tracheostomy at bedside Continue telemetry monitoring Continue vent management per ICU Aggressive bronchopulmonary hygiene Blood cultures growing MRSA, repeat blood cultures till clearance continue with IV vancomycin per ID. Patient remains febrile and tachycardic will continue with current regimen Currently weaned off vasopressor support. Continue chest tube management per CT surgery, lytics instilled into the right chest tube on 11/24, no plan for surgical intervention. Due to multiple complex medical issues, overall prognosis is extremely poor and guarded at this time The impression and plan of care has been dictated by Lashon Veliz Nurse Practitioner as directed. Dr. Luis MD I have performed a history and physical examination and medical decision making of this patient, discussed the same with the dictator, and agree with the dictators assessment and plan as written, documented as a scribe. Based on total visit time, I have performed more than 50% of this visit. Objective - Vital Signs Vital signs: Vital Signs Temp 100.2 F H 12/03/23 08:00 Pulse 105 H 12/03/23 09:00 Resp 24 12/03/23 09:00 BP 114/65 12/03/23 09:00 Pulse Ox 97 12/03/23 09:00 FiO2 50 12/03/23 09:00 Intake & Output 12/02/23 12/03/23 12/03/23 18:59 06:59 18:59 Intake Total 2723.730 2006.917 378.356 Output Total 879 955 200 Balance 4684.820 8066.917 178.356 Weight 127.8 kg 127.4 kg Intake: IV 1936 1336 309 ACETAMINOPHEN IV (For NPO 100 ) 1,000 mg In Empty Bag 1 bag @ 400 mls/hr IVPB Q6HR PRN Rx#:[id number] Anidulafungin 100 mg In 100 100 100 Sodium Chloride 0.9% 100 ml @ 84 mls/hr IVPB DAILY [facility] Rx#:[id number] Lactated Ringers 1,000 ml 1200 1200 200 @ 100 mls/hr IV .Q10H [facility] Rx#:[id number] Pressure bag 36 36 9 Vancomycin 2,000 mg In 500 Sodium Chloride 0.9% 500 ml 500 ml @ 167 mls/hr IVPB Q8H [facility] Rx#: [id number] Intake, IV Titration 477.730 360.917 69.356 Amount fentaNYL (PF). 1,000 mcg 187.070 160.917 69.356 In Sodium Chloride 0.9% 80 ml @ 0.5 MCG/KG/HR 4. 99 mls/hr IV .Q20H3M [facility] Rx#:[id number] propofoL 1,000 mg In 290.660 200 Empty Bag 1 bag @ 15 MCG/ KG/MIN 8.981 mls/hr IV . Q11H9M [facility] Rx#:[id number] Blood Product 310 310 Rc As-1 Unit 310 [id number] As-1 Unit 310 [id number] Output: Chest Tube Drainage 19 25 Chest Tube 19 25 Chest Tube Right 0 Urine 860 930 200 Other: Voiding Method Indwelling Catheter Indwelling Catheter Indwelling Catheter # Bowel Movements 1 ABP, PAP, CO, CI - Last Documented Arterial Blood Pressure 127/57 - Labs CBC & Chem 7: 12/03/23 04:24 04/24/24 09:00 Labs: Abnormal Lab Results - Last 24 Hours (Table) 12/02/23 12/02/23 12/02/23 Range/Units 06:55 12:36 20:00 WBC 19.6 H 15.7 H (3.8-10.6) k/uL RBC 2.29 L 2.17 L (3.80-5.40) m/uL Hgb 7.0 L 6.5 L* (11.4-16.0) gm/dL Hct 21.1 L 20.0 L (34.0-46.0) % Neutrophils # 14.3 H (1.3-7.7) k/uL Lymphocytes # 0.7 L (1.0-4.8) k/uL ABG pH (7.35-7.45) ABG pO2 (83-108) mmHg ABG HCO3 (21-25) mmol/L ABG Total CO2 (19-24) mmol/L ABG O2 Saturation (94-97) % Carbon Dioxide (22-30) mmol/L Creatinine (0.52-1.04) mg/dL Calcium (8.4-10.2) mg/dL Crossmatch See Detail 12/03/23 12/03/23 12/03/23 Range/Units 01:17 04:24 04:24 WBC 21.3 H 21.4 H (3.8-10.6) k/uL RBC 2.96 L 2.60 L (3.80-5.40) m/uL Hgb 8.5 L D 7.6 L (11.4-16.0) gm/dL Hct 27.3 L 23.8 L (34.0-46.0) % Neutrophils # 19.5 H 20.1 H (1.3-7.7) k/uL Lymphocytes # 0.7 L (1.0-4.8) k/uL ABG pH (7.35-7.45) ABG pO2 (83-108) mmHg ABG HCO3 (21-25) mmol/L ABG Total CO2 (19-24) mmol/L ABG O2 Saturation (94-97) % Carbon Dioxide 32 H (22-30) mmol/L Creatinine 0.38 L (0.52-1.04) mg/dL Calcium 7.4 L (8.4-10.2) mg/dL Crossmatch 12/03/23 Range/Units 05:57 WBC (3.8-10.6) k/uL RBC (3.80-5.40) m/uL Hgb (11.4-16.0) gm/dL Hct (34.0-46.0) % Neutrophils # (1.3-7.7) k/uL Lymphocytes # (1.0-4.8) k/uL ABG pH 7.47 H (7.35-7.45) ABG pO2 81 L (83-108) mmHg ABG HCO3 32 H (21-25) mmol/L ABG Total CO2 33 H (19-24) mmol/L ABG O2 Saturation 97.5 H (94-97) % Carbon Dioxide (22-30) mmol/L Creatinine (0.52-1.04) mg/dL Calcium (8.4-10.2) mg/dL Crossmatch Microbiology - Last 24 Hours (Table) 11/27/23 09:40 Blood Culture - Final Blood
[2023-12-04 04:27] LABS: ABG Base Excess 6.9 mmol/L; ABG HCO3 31 mmol/L (21-25); ABG Oxygen Saturation 97.4 % (94-97); ABG PCO2 44 mmHg (35-45); ABG PH 7.46 (7.35-7.45); ABG PO2 80 mmHg (83-108); ABG TCO2 32 mmol/L (19-24); Allen Test Performed? Yes
[2023-12-04 04:37] LABS: Basophils % (A) 0 %; Eosinophils # (A) 0.2 k/uL (0-0.7); Eosinophils % (A) 1 %; HCT 22.3 % (34.0-46.0); HGB 7.2 gm/dL (11.4-16.0); Hypochromasia Slight; Lymphocytes # (A) 0.8 k/uL (1.0-4.8); Lymphocytes % (A) 5 %; MCH 29.6 pg (25.0-35.0); MCHC 32.1 g/dL (31.0-37.0); MCV 92.1 fL (80.0-100.0); Mean Platelet Volume 8.8; Monocytes # (A) 0.6 k/uL (0-1.0); Monocytes % (A) 4 %; Neutrophils % (A) 90 %; Platelet Count 277 k/uL (150-450); RBC 2.42 m/uL (3.80-5.40); RDW 14.8 % (11.5-15.5); WBC 16.7 k/uL (3.8-10.6)
[2023-12-04 04:46] LABS: African American GFR (CKD) >90 (>60 ml/min/1.73 sqM); Anion Gap 5 mmol/L; Blood Urea Nitrogen 8 mg/dL (7-17); Calcium 7.3 mg/dL (8.4-10.2); Carbon Dioxide 28 mmol/L (22-30); Chloride 105 mmol/L (98-107); Glucose 79 mg/dL (74-99); Non-African American GFR(CKD) >90 (>60 ml/min/1.73 sqM); Potassium 3.6 mmol/L (3.5-5.1); Sodium 138 mmol/L (137-145)
[2023-12-04] MEDS: POTASSIUM CHLORIDE 10 MEQ in WATER FOR INJECTION 1 100ML.BAG IVPB SCH (05:55)
[2023-12-04 06:31] LABS: Glucose,Whole Blood 87 mg/dL (70-110)
[2023-12-04] MEDS ORDERED: MD COMMUNICATION TO PHARMACY 1 EACH MISC PO PRN (08:15)
--- NOTE | 2023-12-04 08:39 | P.PN ---
Subjective Progress Note Date: 12/04/23 Principal diagnosis: Acute hypoxic respiratory failure requiring mechanical ventilation, bilateral hydropneumothoraces, empyema, status post bilateral chest tube insertion, septic shock. History of MS, obesity, migraines, seizures, fibromyalgia, hypertension, asthma, anxiety/depression/bipolar disorder, polysubstance abuse POD #1 placement of tracheostomy and PEG tube by Dr. Johnson The patient was seen and examined with Dr. Royal this morning laying in bed in the intensive care unit, remains sedated and mechanically ventilated. No further lytics have been instilled. Right pleural chest tube has had no output, left pleural chest tube put out 60 mL purulent drainage in the last 24 hours. Patient does have MRSA in her blood, thoracic fluid, sputum, and nasal swab, current blood cultures from 11/25 and 11/26 are negative. Remains on IV Vanco, Eraxis added by infectious disease, WBC trending down this morning, 16.7 today from 21.4 yesterday, Tmax for the last 24 hours 100.2 F. Hemoglobin 7.2 from 7.6 yesterday. Remains sedated with propofol and fentanyl, has been off pressors. Objective - Vital Signs Vital signs: Vital Signs Temp 99.4 F 12/04/23 04:00 Pulse 99 12/04/23 07:00 Resp 24 12/04/23 07:00 BP 110/68 12/04/23 06:00 Pulse Ox 94 L 12/04/23 07:00 FiO2 50 12/04/23 04:11 Intake & Output 12/03/23 12/04/23 12/04/23 18:59 06:59 18:59 Intake Total 2026.409 2058.265 183.632 Output Total 990 810 80 Balance 0373.827 6644.265 103.632 Weight 134.5 kg Intake: IV 1736 1633 103 Anidulafungin 100 mg In 100 Sodium Chloride 0.9% 100 ml @ 84 mls/hr IVPB DAILY [facility] Rx#:[id number] Lactated Ringers 1,000 ml 1100 1100 100 @ 100 mls/hr IV .Q10H [facility] Rx#:[id number] Pressure bag 36 33 3 Vancomycin 2,000 mg In 500 500 Sodium Chloride 0.9% 500 ml 500 ml @ 167 mls/hr IVPB Q8H [facility] Rx#: [id number] Intake, IV Titration 291.409 425.265 80.632 Amount fentaNYL (PF). 1,000 mcg 100.000 187.362 In Sodium Chloride 0.9% 80 ml @ 0.5 MCG/KG/HR 4. 99 mls/hr IV .Q20H3M [facility] Rx#:[id number] propofoL 1,000 mg In 191.409 237.903 80.632 Empty Bag 1 bag @ 15 MCG/ KG/MIN 8.981 mls/hr IV . Q11H9M [facility] Rx#:[id number] Output: Chest Tube Drainage 35 Chest Tube 25 Chest Tube Right 10 Gastric Drainage 200 Urine 745 810 80 Estimated Blood Loss 10 Other: Voiding Method Indwelling Catheter Indwelling Catheter # Bowel Movements 1 ABP, PAP, CO, CI - Last Documented Arterial Blood Pressure 100/49 - Exam CONSTITUTIONAL: Currently sedated on mechanical ventilation, laying in bed in the intensive care unit RESPIRATORY: Lungs sounds diminished bilaterally. Respirations even, nonlabored on mechanical ventilation, current settings assist-control mode, FiO2 50%, tidal volume 450, PEEP 5, respiratory rate 24. CARDIOVASCULAR: S1, S2 present. Regular rate and rhythm, sinus rhythm to sinus tach on telemetry. Palpable peripheral pulses bilaterally. Generalized trace edema present. No calf pain or tenderness noted. SCDs present. GASTROINTESTINAL: Abdomen soft, nontender, nondistended. Active bowel sounds present 4 quadrants. OG tube present, currently n.p.o. Last bowel movement this morning GENITOURINARY: Beth present draining clear, yellow urine. Output 1555 mL in the last 24 hours INTEGUMENTARY: Skin is warm and dry NEUROLOGIC: Sedated on mechanical ventilation INVASIVE LINES AND TUBES: Left/right pleural chest tubes present and connected to wall suction, no air leaks present this morning. Left pleural chest tube with 60 mL purulent drainage in the last 24 hours. Right pleural chest tube w ith no drainage in the last 24 hours. Left subclavian triple lumen central line present. - Allied health notes Allied health notes reviewed: nursing - Labs CBC & Chem 7: 12/04/23 04:26 12/04/23 04:26 Labs: Abnormal Lab Results - Last 24 Hours (Table) 12/04/23 12/04/23 12/04/23 Range/Units 04: 04: 04:26 WBC 16.7 H (3.8-10.6) k/uL RBC 2.42 L (3.80-5.40) m/uL Hgb 7.2 L (11.4-16.0) gm/dL Hct 22.3 L (34.0-46.0) % Neutrophils # 15.0 H (1.3-7.7) k/uL Lymphocytes # 0.8 L (1.0-4.8) k/uL ABG pH 7.46 H (7.35-7.45) ABG pO2 80 L (83-108) mmHg ABG HCO3 31 H (21-25) mmol/L ABG Total CO2 32 H (19-24) mmol/L ABG O2 Saturation 97.4 H (94-97) % Creatinine 0.35 L (0.52-1.04) mg/dL Calcium 7.3 L (8.4-10.2) mg/dL - Imaging and Cardiology Chest x-ray: image reviewed Assessment and Plan Assessment: Acute hypoxic respiratory failure requiring mechanical ventilation, status post trach and PEG placement Bilateral hydropneumothoraces, empyema, status post bilateral chest tube insertion Septic shock, requiring IV vasopressors Chest pain, shortness of breath present on admission secondary to above History of MS Obesity Migraines Seizures Fibromyalgia Hypertension, currently hypotensive on pressors Asthma Anxiety/depression/bipolar disorder Polysubstance abuse Plan: Will give 1 dose of lytics in her right and left chest tube to see if she will have significant drainage. If no drainage in the right chest tube will discontinue. Will leave left pleural chest tube until there is no drainage and then it will be removed Would like repeat chest CT to evaluate progression once stable enough for transfer Ventilator management per bandage maker Antibiotics per infectious disease Medical management of other comorbidities per internal medicine, pulmonology, ID More recommendations to follow
--- NOTE | 2023-12-04 09:20 | XR ---
EXAMINATION TYPE: XR chest 1V portable DATE OF EXAM: 12/04/2023 Comparison: 12/03/2023 Clinical History: 43-year-old female ventilator dependant respiratory failure Findings: Tracheostomy cannula now present. Bilateral chest tubes. Left subclavian CVC tip at the lower SVC. He art margins partially obscured by extensive bilateral airspace disease though there has been slight i mprovement from prior. Bilateral chest tubes. Loculated pleural air collection lateral mid to lower l eft chest measuring 6.3 cm redemonstrated. Impression: 1. Extensive diffuse bilateral airspace disease similar to slightly improving. 2. No loculated pleural air collection lateral left mid to lower lung.
[2023-12-04] MEDS: ALTEPLASE 10 MG in SODIUM CHLORIDE 0.9% 50 ML IRRIGATION ONE (10:00)
[2023-12-04] MEDS: DORNASE ALFA 5 MG in SODIUM CHLORIDE 0.9% 50 ML IRRIGATION ONE ×2 (10:00→10:01)
[2023-12-04] MEDS: LIDOCAINE 1% INJ 10MG/ML (20 ML MDV) SQ ONE (10:32)
--- NOTE | 2023-12-04 11:02 | XR ---
EXAMINATION TYPE: XR chest 1V portable DATE OF EXAM: 12/04/2023 10:51 AM CLINICAL INDICATION:Female, 43 years old with history of PICC LINE PLACEMENT; [facility] COMPARISON: Chest radiographs from earlier today TECHNIQUE: XR chest 1V portable Frontal view of the chest. FINDINGS: Lungs/Pleura: Small bilateral pleural effusions are suspected. No pneumothorax. Inspiratory effort bu t the left. The focal patches of consolidation in the right upper lobe and perihilar lung. Pulmonary vascularity: Unremarkable. Heart/mediastinum: Cardiomediastinal silhouette is unremarkable. Musculoskeletal: No acute osseous pathology. Other findings: None Lines/Tubes: Tracheostomy tube is midline projecting over the trachea. IMPRESSION: Tracheostomy tube is midline projecting over the trachea. Improving pneumonia since earlier exam.
--- NOTE | 2023-12-04 11:17 | P.OP ---
Date of Procedure: 12/04/23 Description of Procedure: Date of Procedure: Preoperative Diagnosis: Need for long-term IV antibiotic access. Postoperative Diagnosis: Same. Procedure(s) Performed: Ultrasound-guided cannulation right basilic vein. Insertion of peripherally inserted central catheter under fluoroscopic guidance using chest x-rays. Anesthesia: local (1% Xylocaine.) Surgeon: Ignacia Estimated Blood Loss (ml): 5 IV fluids (ml): 0 Urine output (ml): 0 Pathology: none sent Condition: stable Disposition: no change Description of Procedure: Patient was in ICU and remained here for the procedure the right upper extremity sterilely prepped and draped in usual manner. Ultrasound was utilized to identify the basilic vein which was normally compressible free of visible thrombus. Permenant image was stored. 1% Xylocaine was utilized for local anesthesia tissues overlying the vein. Through this anesthetized area and with the aid of ultrasound a micropuncture needle was utilized to cannulate the vein. Once cannulated, Softip guidewire was advanced into the vein. The needle was withdrawn and a micropuncture sheath and dilator advanced over the guidewire. The guidewire was withdrawn, the PICC line was measured externally. The catheter was cut to size and advanced without resistance. The sheath was peeled away. Site was confirmed with a chest x-ray and interpretation with adequate positioning in the cavoatrial junction. Blood was easily withdrawn through the catheter and the catheter was then flushed with heparinized saline solution and secured to the skin. Patient tolerated procedure well and was returned to their room in satisfactory and stable condition.
[2023-12-04 11:36] LABS: Glucose,Whole Blood 77 mg/dL (70-110)
--- NOTE | 2023-12-04 11:54 | P.PN ---
Subjective Progress Note Date: 12/04/23 CHIEF COMPLAINT: Respiratory failure HISTORY OF PRESENT ILLNESS: Patient remains in the ICU on mechanical ventilation. She has chest tubes in place. She is status post tracheostomy and PEG tube placement yesterday. Patient did have a cuff leak during the night. Currently no evidence of cuff leak per nursing staff and she is holding her tidal volumes. PHYSICAL EXAM: VITAL SIGNS: Reviewed. GENERAL: no acute distress. HEENT: Secretions noted around tracheostomy site ABDOMEN: Soft. Nondistended. Nontender. PEG tube site clean dry and intact NEUROLOGIC: Intubated and sedated ASSESSMENT: 1. Severe protein calorie malnutrition 2. Respiratory failure with MRSA pneumonia, empyema and hydropneumothorax status post chest tube placement bilaterally 3. Hypokalemia 4. Anemia status post blood transfusion PLAN: -Consult dietitian to initiate tube feedings through PEG tube today -Continue ICU management -Continue supportive care Physician [place] Picker note has been reviewed by physician. Signing provider agrees with the documented findings, assessment, and plan of care. Objective - Vital Signs Vital signs: Vital Signs Temp 99.1 F 12/04/23 08:00 Pulse 98 12/04/23 11:39 Resp 25 H 12/04/23 11:39 BP 101/61 12/04/23 11:00 Pulse Ox 96 12/04/23 11:00 FiO2 50 12/04/23 11:36 Intake & Output 12/03/23 12/04/23 12/04/23 18:59 06:59 18:59 Intake Total 2027.409 2058.265 1516.182 Output Total 990 810 300 Balance 7728.035 2477.265 1216.182 Weight 134.5 kg Intake: IV 1736 1633 967 Anidulafungin 100 mg In 100 84 Sodium Chloride 0.9% 100 ml @ 84 mls/hr IVPB DAILY [facility] Rx#:[id number] Lactated Ringers 1,000 ml 1100 1100 200 @ 100 mls/hr IV .Q10H [facility] Rx#:[id number] Pressure bag 36 33 15 Vancomycin 2,000 mg In 500 500 668 Sodium Chloride 0.9% 500 ml 500 ml @ 167 mls/hr IVPB Q8H [facility] Rx#: [id number] Intake, IV Titration 291.409 425.265 549.182 Amount Lactated Ringers 1,000 ml 300 @ 20 mls/hr IV .Q24H [facility] Rx#:[id number] fentaNYL (PF). 1,000 mcg 100.000 187.362 92.309 In Sodium Chloride 0.9% 80 ml @ 0.5 MCG/KG/HR 4. 99 mls/hr IV .Q20H3M [facility] Rx#:[id number] propofoL 1,000 mg In 191.409 237.903 156.873 Empty Bag 1 bag @ 15 MCG/ KG/MIN 8.981 mls/hr IV . Q11H9M [facility] Rx#:[id number] Output: Chest Tube Drainage 35 Chest Tube 25 Chest Tube Right 10 Gastric Drainage 200 Urine 745 810 300 Estimated Blood Loss 10 Other: Voiding Method Indwelling Catheter Indwelling Catheter Indwelling Catheter # Bowel Movements 1 ABP, PAP, CO, CI - Last Documented Arterial Blood Pressure 98/60 - Labs CBC & Chem 7: 12/04/23 04:26 12/04/23 04:26 Labs: Abnormal Lab Results - Last 24 Hours (Table) 12/04/23 12/04/23 12/04/23 Range/Units 04:24 04:26 04:26 WBC 16.7 H (3.8-10.6) k/uL RBC 2.42 L (3.80-5.40) m/uL Hgb 7.2 L (11.4-16.0) gm/dL Hct 22.3 L (34.0-46.0) % Neutrophils # 15.0 H (1.3-7.7) k/uL Lymphocytes # 0.8 L (1.0-4.8) k/uL ABG pH 7.46 H (7.35-7.45) ABG pO2 80 L (83-108) mmHg ABG HCO3 31 H (21-25) mmol/L ABG Total CO2 32 H (19-24) mmol/L ABG O2 Saturation 97.4 H (94-97) % Creatinine 0.35 L (0.52-1.04) mg/dL Calcium 7.3 L (8.4-10.2) mg/dL
--- NOTE | 2023-12-04 12:11 | P.PN ---
Subjective Progress Note Date: 12/04/23 Principal diagnosis: Respiratory failure. Reevaluate today on11/27/23, remains in the ICU, intubated and mechanically ventilated, on assist-control rate of 42 tidal volume 450 FiO2 60% PEEP of 5 ABG showed a pO2 of 72 pCO2 43 pH of 7.49. Patient remains fully sedated she is on fentanyl 1.5 mcg/kg/min she is also on Versed 3 mg/h. Propofol at 50 mcg/kg/min. Patient remains hemodynamically unstable requiring norepinephrine at 0.11 mcg/kg/min she is on vital HP at 16 mL/h. She is also on LR at 150 cc/h. Today I did not make any changes in her ventilator settings. Her chest x-ray is basically about the same continues to show right-sided pneumothorax but I do not see an air leak today on the right side but she does have an air leak on the left side and continues to have significant purulent drainage from the chest tube on the left side. 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 Not much of a change overnight, patient remains critically ill. Continues to have leukocytosis with WBC count of 28.2 hemoglobin 8.5 basic metabolic profile is normal and renal profile is normal Reevaluate today on 11/28/2023, remains in the ICU intubated and mechanically ventilated. Patient is on assist-control rate of 52 tidal volume 450 FiO2 60% PEEP of 5 ABG showed a pO2 of 73 pCO2 37 pH of 7.52 hence FiO2 was cut down to 55% and rate to cut down to 28. Patient continues to have bilateral chest tubes, the left-sided chest tube has ongoing continuous leak, right-sided chest tube has intermittent airleak. However the patient is maintaining her adequate tidal volumes which are about 450. Patient remains on propofol at 50 mcg/kg/min Versed 3 mg/h Fentanyl 1.5 mcg/kg/h patient is also receiving norepinephrine at 0.08 mcg/kg/min. Her IV fluid which is LR Down to 100 cc/h. She is on vital HP patient had a Tmax of 102.9 yesterday, cultures of blood and pleural effusion are positive for MRSA, patient remains on vancomycin. If the patient continues to have positive blood cultures in the next couple of days, may have to consider OSIRIS. The cultures from the are pending. Chest x-ray continues to show significant hydropneumothorax on the left side, and she has mostly hydrothorax on the right side. I could not appreciate a pneumothorax on the right side labs today showed leukocytosis with WBC of 23.1 hemoglobin 7.4, basic metabolic profile is normal renal profile is normal today on 11/29/2023 patient remains intubated and mechanically ventilated, she is on assist-control rate of 28 tidal volume 450 FiO2 55% PEEP of 5 ABG showed a pO2 of 94 pCO2 34 pH of 7.53, hence her vent settings were changed to cut down her rate to 26 cut down FiO2 to 50% And PEEP at 5. Patient's hemoglobin is low today at 6.8, and she will receive a unit of packed RBCs. Patient is being treated for MRSA pneumonia, bacteremia, and empyema. Remains on propofol at 30 mcg/kg/min Fentanyl 1 mcg/kg/h she is also on Versed which I will discontinue today 2 mg/h. Norepinephrine 0.02 mcg/kg/min and IV fluid 0.9 normal saline at 100 cc/h. Chest x-ray continues to show left-sided loculated pneumothorax, and she continues to have ongoing airleak from the left-sided chest tube. The right-sided chest tube seems to be occluded, hence we will ask thoracic surgery to flush the chest tube, and the patient has what seems to be a pleural effusion on the right side, drainage is serosanguineous. Considering the overall picture, the patient is again not quite ready for any weaning, however over the next couple of days as we cut down on sedation, may start waking the patient up and give the patient weaning trials if possible. At this point she remains quite ill, and I doubt if she will tolerate any form of weaning her FiO2 just dropped down from 55 to 50%., Continues to have leukocytosis but improving WBC count is 24.7 hemoglobin 6.8 and she will receive a unit of packed RBCs. Basic metabolic profile is normal renal profile is normal and urine output is excellent Patient was reexamined today on 11/30/2023, remains intubated and mechanically ventilated, remains on vancomycin, patient is on assist-control rate of 24 tidal volume 450 FiO2 50% and PEEP of 5 ABG showed a pO2 of 78 pCO2 48 pH of 7.40 hence no changes were made in vent settings. Chest x-ray showed significant bilateral airspace disease loculated left-sided pneumothorax no clear-cut evidence of pneumothorax on the right. Chest x-ray is also suggestive of interstitial edema/infiltrates, hence the patient will be given a trial of diuresis. Hemoglobin is down to 7.4, patient did receive 1 unit of packed RBCs: WBC count remains high at 25.8 but steadily improving. Patient continues to have air leak in the left side chest tube, but no airleak noted in the right- sided chest tube. Drips bautista the patient is on fentanyl at 1 mcg/kg/h IV fluid LR at 100 cc/h norepinephrine at 0.04 mcg/kg/min propofol at 30 mcg/kg/min vital HP at 44/44. Patient did receive 20 mg of Lasix earlier while on rounds. Her arterial line went and nonfunctional, hence a new arterial line was placed in the left radial artery. Father called about his daughter, and I discussed her condition over the phone with her father and updated him on the situation. He is aware that she is critically ill, and at this point prognosis is relatively guarded. Progress note dated December 01, 2023. This is a 43-year-old female who was admitted on November 22. The patient came in with bilateral pneumonia and empyema. She was intubated for respiratory failure on November 23. Sampling has revealed evidence of methicillin-resistant Staph aureus. She remains on the ventilator.Ventilator settings include volume assist-control, rate 24, tidal volume 450, FiO2 50%, PEEP of 5. Blood gases show pO2 100, pCO2 of 44, pH is 7.47. The patient remains on propofol at 30 mcg/kg/min, fentanyl at 1 mcg/kg/h, lactated Ringer's at 100 cc an hour, and vital AF at 44 cc an hour, which is goal. The patient does continue on vancomycin for her MRSA infection. Current laboratory data includes a white count 24.2, hemoglobin 7.1, hematocrit 22.9, and platelet count 242,000. Sodium 136, potassium 3.2, chlorides 104, CO2 31, BUN 10, creatinine 0.39. Glucose is 111. Calcium is 7.1. Nasal swabs, sputum, blood, wound culture, and pleural fluid, are all consistent with methicillin-resistant Staph aureus. Chest x-ray shows continued bilateral diffuse airspace disease. Bilateral pleural catheters are seen. Progress note dated December 02 2023. This is a 43-year-old female who was admitted on November 22. The patient came in with bilateral pneumonia and empyema. She was intubated for respiratory failure on November 23. Sampling has revealed evidence of methicillin-resistant Staph aureus. She remains on the ventilator. Currently, she is on volume assist- control, rate 24, tidal volume 450, FiO2 50%, PEEP of 5. Blood gases show pO2 73, pCO2 46, pH is 7.47. The patient is getting lactated Ringer's at 100 cc an hour, propofol at 35 mcg/kg/min, and fentanyl at 2 mcg/kg/h. Her tube feedings are on hold, as the patient is to receive a PEG tube today. The patient will have a tracheostomy performed on Friday. White count is 20.4, hemoglobin 6.4, hematocrit 20.1, and platelet count was normal. Sodium 138, potassium 3.7, chlorides 105, CO2 31, BUN 10, creatinine 0.42. Glucose is 95. Calcium 7.1, magnesium 2.0. Nasal swab, pleural fluid, sputum, and blood cultures, are all positive for methicillin-resistant Staph aureus. Chest x-ray shows diffuse bilateral infiltrates. Progress note dated December 03, 2023. 43-year-old female who was admitted on November 22. She was admitted with a diagnosis of bilateral pneumonia, and empyema. She was intubated for respiratory failure on November 23. Thus far, sampling, has revealed evidence of methicillin-resistant Staph aureus. She remains on the ventilator. Settings include volume assist-control, rate 24, tidal volume 450, FiO2 50%, PEEP of 5. Blood gases show pO2 of 81, pCO2 of 44, pH is 7.47. She remains on propofol at 50 mcg/kg/min, lactated Ringer's at 100 cc an hour, and fentanyl at 1.5 mcg/kg/h. She is going to have a PEG tube placed today, and hopefully a tracheostomy performed tomorrow. She continues on vancomycin, and infectious disease doctor has added Eraxis. In addition, the patient has received a total of 3 units of packed red blood cells. White count 21.4, hemoglobin 7.6, hematocrit 23.8, and platelet count 279,000. Sodium 138, potassium 3.6, chlorides 106, CO2 32, BUN 8, creatinine 0.38. Glucose is 84. Calcium 7.4. Chest x-ray is essentially unchanged, and shows diffuse bilateral and severe airspace disease. Progress note dated December 04, 2023. 43-year-old female admitted on November 22. She was admitted with a diagnosis of respiratory failure, bilateral pneumonia, and bilateral empyema. She was intubated for respiratory failure on November 23. The patient remains on the mechanical ventilator. She is on volume assist-control, rate 24, tidal volume 450, FiO2 50%, PEEP of 5. Blood gases show pO2 of 80, pCO2 44, pH is 7.46. The patient remains on propofol at 50 mcg/kg/min, fentanyl at 1.5 mcg/kg/h, and lac tated Ringer's at 100 cc an hour. The patient is currently on vancomycin and Eraxis. Tube feedings are on hold. The patient had tracheostomy and PEG tube placement on December 02. In addition, the patient will have a PICC line placed today. White count 16.7, hemoglobin 7.2, macro 22.3, and platelet count was normal. Sodium 138, potassium 3.6, chlorides 105, CO2 28, BUN 8, creatinine 0.35. Glucose is 79. Calcium is 7.3. Cultures, at multiple sites, revealed methicillin-resistant Staph aureus. Chest x-ray shows a midline tracheostomy. Chest x-ray may be a bit proved. Objective - Vital Signs Vital signs: Vital Signs Temp 99.1 F 12/04/23 08:00 Pulse 99 12/04/23 11:49 Resp 25 H 12/04/23 11:49 BP 101/61 12/04/23 11:00 Pulse Ox 96 12/04/23 11:00 FiO2 50 12/04/23 11:36 Intake & Output 12/03/23 12/04/23 12/04/23 18:59 06:59 18:59 Intake Total 2026.409 2058.265 1516.182 Output Total 990 810 300 Balance 8035.404 6931.265 1216.182 Weight 134.5 kg Intake: IV 1736 1633 967 Anidulafungin 100 mg In 100 84 Sodium Chloride 0.9% 100 ml @ 84 mls/hr IVPB DAILY [facility] Rx#:[id number] Lactated Ringers 1,000 ml 1100 1100 200 @ 100 mls/hr IV .Q10H [facility] Rx#:[id number] Pressure bag 36 33 15 Vancomycin 2,000 mg In 500 500 668 Sodium Chloride 0.9% 500 ml 500 ml @ 167 mls/hr IVPB Q8H [facility] Rx#: [id number] Intake, IV Titration 291.409 425.265 549.182 Amount Lactated Ringers 1,000 ml 300 @ 20 mls/hr IV .Q24H [facility] Rx#:[id number] fentaNYL (PF). 1,000 mcg 100.000 187.362 92.309 In Sodium Chloride 0.9% 80 ml @ 0.5 MCG/KG/HR 4. 99 mls/hr IV .Q20H3M [facility] Rx#:[id number] propofoL 1,000 mg In 191.409 237.903 156.873 Empty Bag 1 bag @ 15 MCG/ KG/MIN 8.981 mls/hr IV . Q11H9M [facility] Rx#:[id number] Output: Chest Tube Drainage 35 Chest Tube 25 Chest Tube Right 10 Gastric Drainage 200 Urine 745 810 300 Estimated Blood Loss 10 Other: Voiding Method Indwelling Catheter Indwelling Catheter Indwelling Catheter # Bowel Movements 1 ABP, PAP, CO, CI - Last Documented Arterial Blood Pressure 98/60 - Exam No acute distress, sedated, with a midline tracheostomy tube. HEENT examination is grossly unremarkable. Neck supple. Full range of motion. No adenopathy thyromegaly or neck vein distention. Cardiovascular examination reveals regular rhythm rate. S1-S2 normal. No S3 or S4. No discernible murmur noted. Heart rate 96 bpm. Lungs reveal bilateral coarse rhonchi. No wheezes or crackles. Breath sounds equal. Saturations are 96 %. Abdomen soft, with bowel sounds. No masses. Abdomen obese. PEG tube noted. Extremities are intact. No cyanosis clubbing or edema. Skin is without rash or lesion. Neurologic examination cannot be assessed at this time. - Labs CBC & Chem 7: 12/04/23 04:12/04/23 04: Labs: Abnormal Lab Results - Last 24 Hours (Table) 12/04/23 12/04/23 12/04/23 Range/Units 04: 04:26 04:26 WBC 16.7 H (3.8-10.6) k/uL RBC 2.42 L (3.80-5.40) m/uL Hgb 7.2 L (11.4-16.0) gm/dL Hct 22.3 L (34.0-46.0) % Neutrophils # 15.0 H (1.3-7.7) k/uL Lymphocytes # 0.8 L (1.0-4.8) k/uL ABG pH 7.46 H (7.35-7.45) ABG pO2 80 L (83-108) mmHg ABG HCO3 31 H (21-25) mmol/L ABG Total CO2 32 H (19-24) mmol/L ABG O2 Saturation 97.4 H (94-97) % Creatinine 0.35 L (0.52-1.04) mg/dL Calcium 7.3 L (8.4-10.2) mg/dL Assessment and Plan Assessment: Acute hypoxemic respiratory failure, S/P intubation and mechanical ventilation on November 23. Acute bilateral methicillin-resistant Staph aureus pneumonia, with empyema, and hydropneumothorax. S/P tracheostomy and PEG tube placement December 03, 2023. S/P bilateral chest tube placement. Acute sepsis with septic shock. History of polysubstance abuse. History of multiple sclerosis. History of anxiety/depression. History of interstitial cystitis and urinary tract infection. Fibromyalgia. Chronic pain syndrome. History of seizure disorder. Degenerative joint disease. Morbid obesity. Essential hypertension. Plan: Plan dated December 01, 2023. We did speak to Dr. Royal about this patient. He feels that any additional surgical intervention, is not warranted at this time. Labs, x-rays, medications are reviewed. The patient will likely end up with a tracheostomy. Dr. Royal is willing to do it. In addition, we will ask our surgical colleagues, for PEG tube placement. The patient continues on propofol, fentanyl, and lactated Ringer's. She continues on vancomycin for her infection. Labs, x-rays, medications are all reviewed. The patient's overall prognosis remains very guarded. We will continue to follow the patient, make recommendations. Plan dated December 02, 2023. The patient remains on lactated Ringer's, propofol, and fentanyl. Tube feedings are on hold, for PEG tube placement today. Tracheostomy will be performed on Friday, by Dr. Royal. Labs, x-rays, and medications are all reviewed. The patient continues on antibiotics for her methicillin-resistant Staph aureus infection. We will continue to follow and make recommendations along the way. The patient continues on vancomycin. The patient's overall prognosis remains very guarded. Plan dated December 03, 2023. The patient had a PEG tube placed today. The patient is seen again in the intensive care unit, room 254. She remains on the ventilator. Blood gases are reasonable, showing a very mild metabolic alkalosis. She remains on propofol at 50 mcg/kg/min, lactated Ringer's at 100 cc an hour, and fentanyl at 1.5 mcg/kg/h. The tracheostomy is to be performed tomorrow. The patient continues on vancomycin, and infectious diseases have just added a Eraxis. Tube feedings are currently on hold. Labs, x-rays, and medications are reviewed. Overall prognosis remains very guarded. No additional recommendations are made. We will continue to follow. Plan dated December 04, 2023. The patient had a tracheostomy and PEG tube placement performed on December 02. She will also have a PICC line placed. Tube feedings are currently still on hold. The patient continues on vancomycin, and Eraxis. The patient is on propofol at 50 mcg/kg/min, and fentanyl 1.5 mcg/kg/h. The patient is also getting lactated Ringer's at 100 cc an hour. Labs, x-rays, and medications are all reviewed. We will continue to follow the patient, make recommendations along the way. Prognosis is certainly guarded at this time. Time with Patient: Greater than 30
--- NOTE | 2023-12-04 12:51 | IR ---
EXAMINATION TYPE: IR cvc insert >=5 years DATE OF EXAM: 12/04/2023 FLUOROSCOPY Abx/Blood draws, port CRX, 5F 49cm rt basilic PICC. No images provided. Radiation dose not provided.
--- NOTE | 2023-12-04 15:59 | P.PN ---
Subjective Progress Note Date: 12/04/23 Principal diagnosis: Reason for follow-up is sepsis MRSA pneumonia bacteremia and empyema Patient is a 43-year-old female past medical history significant for hypertension fibromyalgia asthma reflux seizure disorder currently incarcerated and presented from the local custodial for evaluation of increasing shortness of breath and chest pain, patient did have evidence of bilateral hydropneumothorax requiring bilateral chest tube placement and did have a positive blood culture with MRSA. Patient is status post tracheostomy completed on 12/03/2023. On today's evaluation that is 12/04/2023 patient did have improvement in her fever pattern and did have a low-grade fever of 99.1 F at noon patient is hemodynamically stable not requiring any pressor support patient is currently on 50% FiO2 no other changes reported by nursing staff. Patient white count is up to 16.7, creatinine 0.35 Objective - Vital Signs Vital signs: Vital Signs Temp 99.1 F 12/04/23 12:00 Pulse 55 L 12/04/23 15:33 Resp 16 12/04/23 15:33 BP 115/74 12/04/23 15:00 Pulse Ox 96 12/04/23 15:00 FiO2 50 12/04/23 15:21 Intake & Output 12/03/23 12/04/23 12/04/23 18:59 06:59 18:59 Intake Total 2027.409 2058.265 2154.839 Output Total 990 810 595 Balance 3053.027 9335.265 1559.839 Weight 134.5 kg Intake: IV 1736 1633 979 Anidulafungin 100 mg In 100 84 Sodium Chloride 0.9% 100 ml @ 84 mls/hr IVPB DAILY [facility] Rx#:[id number] Lactated Ringers 1,000 ml 1100 1100 200 @ 100 mls/hr IV .Q10H [facility] Rx#:[id number] Pressure bag 36 33 27 Vancomycin 2,000 mg In 500 500 668 Sodium Chloride 0.9% 500 ml 500 ml @ 167 mls/hr IVPB Q8H [facility] Rx#: [id number] Intake, IV Titration 291.409 908.045 7415.839 Amount Lactated Ringers 1,000 ml 800 @ 20 mls/hr IV .Q24H [facility] Rx#:[id number] fentaNYL (PF). 1,000 mcg 100.000 187.362 92.309 In Sodium Chloride 0.9% 80 ml @ 0.5 MCG/KG/HR 4. 99 mls/hr IV .Q20H3M [facility] Rx#:[id number] propofoL 1,000 mg In 191.409 237.903 225.530 Empty Bag 1 bag @ 15 MCG/ KG/MIN 8.981 mls/hr IV . Q11H9M [facility] Rx#:[id number] Tube Feeding 58 Output: Chest Tube Drainage 35 80 Chest Tube 25 80 Chest Tube Right 10 0 Gastric Drainage 200 Urine 745 810 515 Estimated Blood Loss 10 Other: Voiding Method Indwelling Catheter Indwelling Catheter Indwelling Catheter # Bowel Movements 1 ABP, PAP, CO, CI - Last Documented Arterial Blood Pressure 113/64 - Exam GENERAL DESCRIPTION: Middle-aged female intubated through the trach RESPIRATORY SYSTEM: Unlabored breathing , coarse breath sounds bilaterally HEART: S1 S2 regular rate and rhythm , ABDOMEN: Soft , no tenderness EXTREMITIES: No edema feet - Labs CBC & Chem 7: 12/04/23 04:26 12/04/23 04:26 Labs: Abnormal Lab Results - Last 24 Hours (Table) 12/04/23 12/04/23 12/04/23 Range/Units 04:24 04:26 04:26 WBC 16.7 H (3.8-10.6) k/uL RBC 2.42 L (3.80-5.40) m/uL Hgb 7.2 L (11.4-16.0) gm/dL Hct 22.3 L (34.0-46.0) % Neutrophils # 15.0 H (1.3-7.7) k/uL Lymphocytes # 0.8 L (1.0-4.8) k/uL ABG pH 7.46 H (7.35-7.45) ABG pO2 80 L (83-108) mmHg ABG HCO3 31 H (21-25) mmol/L ABG Total CO2 32 H (19-24) mmol/L ABG O2 Saturation 97.4 H (94-97) % Creatinine 0.35 L (0.52-1.04) mg/dL Calcium 7.3 L (8.4-10.2) mg/dL Assessment and Plan (1) Empyema Current Visit: Yes Status: Acute Code(s): J86.9 - PYOTHORAX WITHOUT FISTULA SNOMED Code(s): 107018774 (2) MRSA bacteremia Current Visit: Yes Status: Acute Code(s): R78.81 - BACTEREMIA; B95.62 - METHICILLIN RESIS STAPH INFCT CAUSING DISEASES CLASSD [id number] SNOMED Code(s): 84790669720553244 (3) Pneumonia Current Visit: Yes Status: Acute Code(s): J18.9 - PNEUMONIA, UNSPECIFIED ORGANISM SNOMED Code(s): 851637753 (4) Pneumothorax Current Visit: Yes Status: Acute Code(s): J93.9 - PNEUMOTHORAX, UNSPECIFIED SNOMED Code(s): 43387226 Plan: 1patient presented to hospital with sepsis in this patient who did have a fever tachycardia elevated white count source is pulmonary in this patient noted evidence of bilateral pneumothorax and effusion with question of complicated pneumonia/empyema keeping in mind the patient is from local alf will need to cover for resistant gram-positive such as MRSA and gram-negative pathogen 2-patient blood sputum and pleural fluid culture with MRSA 3-Patient did clear her bacteremia as the blood culture from 11/26/2023 as well as 11/27/2023 has been negative patient did have a PICC line placement on 12/04/2023 4-patient did have improvement in her fever pattern and white count is trending down continue with the vancomycin 5-patient with oropharyngeal candidiasis patient is currently covered with Eraxis and did have improvement in the white count Dictation was produced using [employer] dictation software. please excuse any grammatical, word or spelling errors. Time with Patient: Less than 30
[2023-12-04 17:05] LABS: Glucose,Whole Blood 97 mg/dL (70-110)
[2023-12-04 23:59] LABS: Glucose,Whole Blood 113 mg/dL (70-110)
--- NOTE | 2023-12-05 04:37 | P.PN ---
Subjective Progress Note Date: 12/04/23 This is a 43 year old female evaluated today in the intensive care unit. Patient is currently sedated and remains on the mechanical ventilator. Presents from the skilled nursing with shortness of breath and cough. Patient found to have bilateral pneumothorax and continues currently with right and left sided chest tubes. Chest xray today reveals continued diffuse bilateral airspace disease with extensive pleural parenchymal opacity. Continues on IV vancomycin due to MRSA bacteremia. White blood cell count today 24.2, hgb 7.1. Sodium 136, potassium 3.4. Remains on IV fentanyl, IV versed, IV propofol. Being considered from tracheostomy and PEG tube placement. Remains febrile with T-max 101.4 overnight. Unable to complete a review of systems as patient is currently intubated and sedated on the mechanical ventilator 12/02/2023 Patient is seen in follow-up continues on mechanical ventilation with multiple chest tubes and multiple consultations following. Plan is for PEG tube with general surgery and also discussing planning tracheostomy with CT surgery on Friday. Patient's hemoglobin found to be low under 7 and will transfuse 1 unit. No active bleeding noted and will follow-up with repeat labs. Patient is continued on vancomycin along with antifungals with infectious disease following closely. Continue with current regimen and will follow-up on the patient closely. Daily chest x-rays ordered and will await repeat labs. 12/03/2023 Patient is seen and evaluated in follow-up today is status post PEG tube placement and currently undergoing prep for tracheostomy. Tube feedings are on hold and will be resumed once cleared by surgery. Hemoglobin is stable although patient is status post 2 units yesterday and hemoglobin is 7.6. There is no active bleeding noted and will follow-up with repeat labs and transfuse if 7 or less. Patient continues on antibiotic therapy with infectious disease following. Patient has been having low-grade temps intermittently as well. Overall prognosis is guarded. 12/04/2023 Patient is seen and evaluated in follow-up today status post PEG tube and trach and scheduled to resume tube feedings this afternoon at noon and will monitor closely for residuals. No active bleeding noted and hemoglobin is stable above 7 and will continue to monitor and transfuse if 7 or less. Patient continues on antibiotics with infectious disease following showing improvements in white count and most recent repeated blood cultures are negative. Patient to receive a PICC line today for continued IV antibiotic therapy. Plan is for select specialties once patient is stable. Social work following arranging for discharge planning. Review of systems: Unable to obtain as patient is on mechanical ventilation and sedated PHYSICAL EXAMINATION: GENERAL: The patient is alert and oriented x0, not in any acute distress. Intubated and sedated. Well developed, well nourished. Sedated. Patient will follow commands. FiO2 is 50% with a PEEP of 5 HEENT: Pupils are round and equally reacting to light. EOMI. No scleral icterus. No conjunctival pallor. Normocephalic, atraumatic. No pharyngeal erythema. No thyromegaly. CARDIOVASCULAR: S1 and S2 present. No murmurs, rubs, or gallops. PULMONARY: Chest is clear to auscultation, no wheezing . Coarse rhonchi noted throughout. Faint crackles noted on the right bases ABDOMEN: Soft, obese. Nontender, nondistended, normoactive bowel sounds. No palpable organomegaly. PEG tube noted MUSCULOSKELETAL: No joint swelling or deformity. EXTREMITIES: No cyanosis, clubbing, or pedal edema. NEUROLOGICAL: Unable to asses pt is sedated SKIN: No rashes. Assessment: Acute hypoxic respiratory failure requiring mechanical ventilation secondary to acute bilateral pneumonia, status post PEG and trach placement on 12/03/2023. Acute bilateral pneumonia complicated by bilateral pneumothoraces. Acute bilateral empyema, post bilateral chest tube insertion with purulent material draining from both lungs. MRSA bacteremia Anemia with iron studies revealing underlying iron deficiency. Status post 2 units PRBC on 12/02/2023 Acute septic shock Acute leukocytosis secondary to above Morbid obesity Polysubstance abuse Hyponatremia Elevated LFTs Lactic acidosis GI prophylaxis DVT prophylaxis Lovenox Full Code Plan: Repeat labs in the AM, replace electrolytes per protocol Hemoglobin is currently stable above 7 today and is status post 2 unit of PRBC. No active bleeding noted. Tube feedings currently on hold and has received a PEG tube and will resume feedings to work towards goal at noon per surgery recommendations Patient is status post tracheostomy continues to be on a vent with an FiO2 of 50% and PEEP is 5 Continue telemetry monitoring Continue vent management per ICU Aggressive bronchopulmonary hygiene Blood cultures growing MRSA, repeat blood cultures thus far negative, continue with IV vancomycin per ID. Patient is scheduled to receive a PICC line today Currently weaned off vasopressor support. Continue chest tube management per CT surgery, plan for possible chest tube removal later today. Will follow-up on chest x-ray Social work following and plan is for select specialty of [facility] once stable. Patient has been released from custody as she was incarcerated prior to this Due to multiple complex medical issues, overall prognosis is extremely poor and guarded at this time The impression and plan of care has been dictated by Lashon Veliz, Nurse Practitioner as directed. Dr. Luis MD I have performed a history and physical examination and medical decision making of this patient, discussed the same with the dictator, and agree with the dictators assessment and plan as written, documented as a scribe. Based on total visit time, I have performed more than 50% of this visit. Objective - Vital Signs Vital signs: Vital Signs Temp 98.9 F 12/05/23 04:00 Pulse 98 12/05/23 04:00 Resp 24 12/05/23 04:00 BP 112/67 12/05/23 04:00 Pulse Ox 94 L 12/05/23 04:00 FiO2 50 12/05/23 04:00 Intake & Output 12/04/23 12/04/23 12/05/23 06:59 18:59 06:59 Intake Total 2058.265 3343.839 1911.327 Output Total 129 513 1910 Balance 8020.451 5844.839 856.327 Weight 134.5 kg Intake: IV 1633 1848 1012 Anidulafungin 100 mg In 84 Sodium Chloride 0.9% 100 ml @ 84 mls/hr IVPB DAILY [facility] Rx#:[id number] Lactated Ringers 1,000 ml 1100 560 500 @ 100 mls/hr IV .Q10H [facility] Rx#:[id number] Pressure bag 33 36 12 Vancomycin 2,000 mg In 500 1168 500 Sodium Chloride 0.9% 500 ml 500 ml @ 167 mls/hr IVPB Q8H [facility] Rx#: [id number] Intake, IV Titration 810.151 9311.839 323.327 Amount Lactated Ringers 1,000 ml 120 @ 100 mls/hr IV .Q10H [facility] Rx#:[id number] Lactated Ringers 1,000 ml 800 @ 20 mls/hr IV .Q24H [facility] Rx#:[id number] fentaNYL (PF). 1,000 mcg 187.362 192.309 168.900 In Sodium Chloride 0.9% 80 ml @ 0.5 MCG/KG/HR 4. 99 mls/hr IV .Q20H3M [facility] Rx#:[id number] propofoL 1,000 mg In 237.903 325.530 154.427 Empty Bag 1 bag @ 15 MCG/ KG/MIN 8.981 mls/hr IV . Q11H9M [facility] Rx#:[id number] Tube Feeding 58 486 Other 90 Output: Chest Tube Drainage 140 150 Chest Tube 140 70 Chest Tube Right 0 80 Urine 810 685 905 Other: Voiding Method Indwelling Catheter Indwelling Catheter Indwelling Catheter # Bowel Movements 1 1 ABP, PAP, CO, CI - Last Documented Arterial Blood Pressure 106/58 - Labs CBC & Chem 7: 12/04/23 04:26 12/04/23 04:26 Labs: Abnormal Lab Results - Last 24 Hours (Table) 12/04/23 12/04/23 12/04/23 Range/Units 04:24 04:26 04:26 WBC 16.7 H (3.8-10.6) k/uL RBC 2.42 L (3.80-5.40) m/uL Hgb 7.2 L (11.4-16.0) gm/dL Hct 22.3 L (34.0-46.0) % Neutrophils # 15.0 H (1.3-7.7) k/uL Lymphocytes # 0.8 L (1.0-4.8) k/uL ABG pH 7.46 H (7.35-7.45) ABG pO2 80 L (83-108) mmHg ABG HCO3 31 H (21-25) mmol/L ABG Total CO2 32 H (19-24) mmol/L ABG O2 Saturation 97.4 H (94-97) % Creatinine 0.35 L (0.52-1.04) mg/dL POC Glucose (mg/dL) (70-110) mg/dL Calcium 7.3 L (8.4-10.2) mg/dL 12/04/23 Range/Units 23:58 WBC (3.8-10.6) k/uL RBC (3.80-5.40) m/uL Hgb (11.4-16.0) gm/dL Hct (34.0-46.0) % Neutrophils # (1.3-7.7) k/uL Lymphocytes # (1.0-4.8) k/uL ABG pH (7.35-7.45) ABG pO2 (83-108) mmHg ABG HCO3 (21-25) mmol/L ABG Total CO2 (19-24) mmol/L ABG O2 Saturation (94-97) % Creatinine (0.52-1.04) mg/dL POC Glucose (mg/dL) 113 H (70-110) mg/dL Calcium (8.4-10.2) mg/dL
[2023-12-05 05:37] LABS: ABG Base Excess 9.6 mmol/L; ABG HCO3 34 mmol/L (21-25); ABG Oxygen Saturation 96.3 % (94-97); ABG PCO2 49 mmHg (35-45); ABG PH 7.44 (7.35-7.45); ABG PO2 75 mmHg (83-108); ABG TCO2 35 mmol/L (19-24); Allen Test Performed? Yes
--- NOTE | 2023-12-05 05:39 | XR ---
EXAM: XR Chest, 1 View CLINICAL HISTORY: ventilator dependant respiratory failure TECHNIQUE: Frontal view of the chest. COMPARISON: 12/02/2023. FINDINGS: Interval removal endotracheal tube with placement of a tracheostomy tube at the level of the clavicles. Left subclavian central line with tip in the SVC. Right chest tube is unchanged. NG tube has been removed. Heart is normal size. Slight improved lung volumes. Redemonstrated the bilateral asymmetric consolidations greatest throughout the right lung and in the left midlung field. Left pleural fluid. No definite pneumothorax. Bones are unchanged. IMPRESSION: Interval placement of a tracheostomy tube. Slight increased lung volumes. Removal of NG tube. Otherwise no change.
[2023-12-05 06:35] LABS: Glucose,Whole Blood 123 mg/dL (70-110)
[2023-12-05] MEDS: FUROSEMIDE 10 MG/ML 10 ML VIAL IV STA (09:13)
--- NOTE | 2023-12-05 11:19 | P.PN ---
Subjective Progress Note Date: 12/05/23 Principal diagnosis: Respiratory failure. Reevaluate today on11/27/23, remains in the ICU, intubated and mechanically ventilated, on assist-control rate of 42 tidal volume 450 FiO2 60% PEEP of 5 ABG showed a pO2 of 72 pCO2 43 pH of 7.49. Patient remains fully sedated she is on fentanyl 1.5 mcg/kg/min she is also on Versed 3 mg/h. Propofol at 50 mcg/kg/min. Patient remains hemodynamically unstable requiring norepinephrine at 0.11 mcg/kg/min she is on vital HP at 16 mL/h. She is also on LR at 150 cc/h. Today I did not make any changes in her ventilator settings. Her chest x-ray is basically about the same continues to show right-sided pneumothorax but I do not see an air leak today on the right side but she does have an air leak on the left side and continues to have significant purulent drainage from the chest tube on the left side. 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 Not much of a change overnight, patient remains critically ill. Continues to have leukocytosis with WBC count of 28.2 hemoglobin 8.5 basic metabolic profile is normal and renal profile is normal Reevaluate today on 11/28/2023, remains in the ICU intubated and mechanically ventilated. Patient is on assist-control rate of 52 tidal volume 450 FiO2 60% PEEP of 5 ABG showed a pO2 of 73 pCO2 37 pH of 7.52 hence FiO2 was cut down to 55% and rate to cut down to 28. Patient continues to have bilateral chest tubes, the left-sided chest tube has ongoing continuous leak, right-sided chest tube has intermittent airleak. However the patient is maintaining her adequate tidal volumes which are about 450. Patient remains on propofol at 50 mcg/kg/min Versed 3 mg/h Fentanyl 1.5 mcg/kg/h patient is also receiving norepinephrine at 0.08 mcg/kg/min. Her IV fluid which is LR Down to 100 cc/h. She is on vital HP patient had a Tmax of 102.9 yesterday, cultures of blood and pleural effusion are positive for MRSA, patient remains on vancomycin. If the patient continues to have positive blood cultures in the next couple of days, may have to consider OSIRIS. The cultures from the are pending. Chest x-ray continues to show significant hydropneumothorax on the left side, and she has mostly hydrothorax on the right side. I could not appreciate a pneumothorax on the right side labs today showed leukocytosis with WBC of 23.1 hemoglobin 7.4, basic metabolic profile is normal renal profile is normal today on 11/29/2023 patient remains intubated and mechanically ventilated, she is on assist-control rate of 28 tidal volume 450 FiO2 55% PEEP of 5 ABG showed a pO2 of 94 pCO2 34 pH of 7.53, hence her vent settings were changed to cut down her rate to 26 cut down FiO2 to 50% And PEEP at 5. Patient's hemoglobin is low today at 6.8, and she will receive a unit of packed RBCs. Patient is being treated for MRSA pneumonia, bacteremia, and empyema. Remains on propofol at 30 mcg/kg/min Fentanyl 1 mcg/kg/h she is also on Versed which I will discontinue today 2 mg/h. Norepinephrine 0.02 mcg/kg/min and IV fluid 0.9 normal saline at 100 cc/h. Chest x-ray continues to show left-sided loculated pneumothorax, and she continues to have ongoing airleak from the left-sided chest tube. The right-sided chest tube seems to be occluded, hence we will ask thoracic surgery to flush the chest tube, and the patient has what seems to be a pleural effusion on the right side, drainage is serosanguineous. Considering the overall picture, the patient is again not quite ready for any weaning, however over the next couple of days as we cut down on sedation, may start waking the patient up and give the patient weaning trials if possible. At this point she remains quite ill, and I doubt if she will tolerate any form of weaning her FiO2 just dropped down from 55 to 50%., Continues to have leukocytosis but improving WBC count is 24.7 hemoglobin 6.8 and she will receive a unit of packed RBCs. Basic metabolic profile is normal renal profile is normal and urine output is excellent Patient was reexamined today on 11/30/2023, remains intubated and mechanically ventilated, remains on vancomycin, patient is on assist-control rate of 24 tidal volume 450 FiO2 50% and PEEP of 5 ABG showed a pO2 of 78 pCO2 48 pH of 7.40 hence no changes were made in vent settings. Chest x-ray showed significant bilateral airspace disease loculated left-sided pneumothorax no clear-cut evidence of pneumothorax on the right. Chest x-ray is also suggestive of interstitial edema/infiltrates, hence the patient will be given a trial of diuresis. Hemoglobin is down to 7.4, patient did receive 1 unit of packed RBCs: WBC count remains high at 25.8 but steadily improving. Patient continues to have air leak in the left side chest tube, but no airleak noted in the right- sided chest tube. Drips bautista the patient is on fentanyl at 1 mcg/kg/h IV fluid LR at 100 cc/h norepinephrine at 0.04 mcg/kg/min propofol at 30 mcg/kg/min vital HP at 44/44. Patient did receive 20 mg of Lasix earlier while on rounds. Her arterial line went and nonfunctional, hence a new arterial line was placed in the left radial artery. Father called about his daughter, and I discussed her condition over the phone with her father and updated him on the situation. He is aware that she is critically ill, and at this point prognosis is relatively guarded. Progress note dated December 01, 2023. This is a 43-year-old female who was admitted on November 22. The patient came in with bilateral pneumonia and empyema. She was intubated for respiratory failure on November 23. Sampling has revealed evidence of methicillin-resistant Staph aureus. She remains on the ventilator.Ventilator settings include volume assist-control, rate 24, tidal volume 450, FiO2 50%, PEEP of 5. Blood gases show pO2 100, pCO2 of 44, pH is 7.47. The patient remains on propofol at 30 mcg/kg/min, fentanyl at 1 mcg/kg/h, lactated Ringer's at 100 cc an hour, and vital AF at 44 cc an hour, which is goal. The patient does continue on vancomycin for her MRSA infection. Current laboratory data includes a white count 24.2, hemoglobin 7.1, hematocrit 22.9, and platelet count 242,000. Sodium 136, potassium 3.2, chlorides 104, CO2 31, BUN 10, creatinine 0.39. Glucose is 111. Calcium is 7.1. Nasal swabs, sputum, blood, wound culture, and pleural fluid, are all consistent with methicillin-resistant Staph aureus. Chest x-ray shows continued bilateral diffuse airspace disease. Bilateral pleural catheters are seen. Progress note dated December 02 2023. This is a 43-year-old female who was admitted on November 22. The patient came in with bilateral pneumonia and empyema. She was intubated for respiratory failure on November 23. Sampling has revealed evidence of methicillin-resistant Staph aureus. She remains on the ventilator. Currently, she is on volume assist- control, rate 24, tidal volume 450, FiO2 50%, PEEP of 5. Blood gases show pO2 73, pCO2 46, pH is 7.47. The patient is getting lactated Ringer's at 100 cc an hour, propofol at 35 mcg/kg/min, and fentanyl at 2 mcg/kg/h. Her tube feedings are on hold, as the patient is to receive a PEG tube today. The patient will have a tracheostomy performed on Friday. White count is 20.4, hemoglobin 6.4, hematocrit 20.1, and platelet count was normal. Sodium 138, potassium 3.7, chlorides 105, CO2 31, BUN 10, creatinine 0.42. Glucose is 95. Calcium 7.1, magnesium 2.0. Nasal swab, pleural fluid, sputum, and blood cultures, are all positive for methicillin-resistant Staph aureus. Chest x-ray shows diffuse bilateral infiltrates. Progress note dated December 03, 2023. 43-year-old female who was admitted on November 22. She was admitted with a diagnosis of bilateral pneumonia, and empyema. She was intubated for respiratory failure on November 23. Thus far, sampling, has revealed evidence of methicillin-resistant Staph aureus. She remains on the ventilator. Settings include volume assist-control, rate 24, tidal volume 450, FiO2 50%, PEEP of 5. Blood gases show pO2 of 81, pCO2 of 44, pH is 7.47. She remains on propofol at 50 mcg/kg/min, lactated Ringer's at 100 cc an hour, and fentanyl at 1.5 mcg/kg/h. She is going to have a PEG tube placed today, and hopefully a tracheostomy performed tomorrow. She continues on vancomycin, and infectious disease doctor has added Eraxis. In addition, the patient has received a total of 3 units of packed red blood cells. White count 21.4, hemoglobin 7.6, hematocrit 23.8, and platelet count 279,000. Sodium 138, potassium 3.6, chlorides 106, CO2 32, BUN 8, creatinine 0.38. Glucose is 84. Calcium 7.4. Chest x-ray is essentially unchanged, and shows diffuse bilateral and severe airspace disease. Progress note dated December 04, 2023. 43-year-old female admitted on November 22. She was admitted with a diagnosis of respiratory failure, bilateral pneumonia, and bilateral empyema. She was intubated for respiratory failure on November 23. The patient remains on the mechanical ventilator. She is on volume assist-control, rate 24, tidal volume 450, FiO2 50%, PEEP of 5. Blood gases show pO2 of 80, pCO2 44, pH is 7.46. The patient remains on propofol at 50 mcg/kg/min, fentanyl at 1.5 mcg/kg/h, and lac tated Ringer's at 100 cc an hour. The patient is currently on vancomycin and Eraxis. Tube feedings are on hold. The patient had tracheostomy and PEG tube placement on December 02. In addition, the patient will have a PICC line placed today. White count 16.7, hemoglobin 7.2, macro 22.3, and platelet count was normal. Sodium 138, potassium 3.6, chlorides 105, CO2 28, BUN 8, creatinine 0.35. Glucose is 79. Calcium is 7.3. Cultures, at multiple sites, revealed methicillin-resistant Staph aureus. Chest x-ray shows a midline tracheostomy. Chest x-ray may be a bit proved. Progress note dated December 05, 2023. 43-year-old female admitted on November 22. She was admitted with a diagnosis of respiratory failure, bilateral pneumonia, and bilateral empyema. The patient was intubated on November 23. She remains on the mechanical ventilator. Currently, settings are volume assist-control, rate 24, tidal volume 450, FiO2 50%, and PEEP of 5. Blood gases show pO2 75, pCO2 49, pH is 7.44. The patient is on propofol at 55 mcg/kg/min, fentanyl at 1.5 mcg/kg/h, and lactated Ringer's at 100 cc an hour. She is also getting vital HP, at 54 cc an hour, which is goal. Current labs include a white count of 16.7, hemoglobin 7.2, hematocrit 22.3, and a platelet count of 277,000. Sodium 138, potassium 3.6, chlorides 105, CO2 28, BUN 8, creatinine 0.35. The glucose is 123. The calcium is 7.3. All previous cultures including sputum Gram stain, and blood cultures, show evidence of methicillin-resistant Staph aureus. The patient continues on vancomycin and Eraxis. Chest x-ray shows a midline tracheostomy tube. The NG tube has been removed. Objective - Vital Signs Vital signs: Vital Signs Temp 99.8 F H 12/05/23 08:00 Pulse 95 12/05/23 08:34 Resp 24 12/05/23 08:34 BP 98/51 12/05/23 08:00 Pulse Ox 93 L 12/05/23 08:00 FiO2 50 12/05/23 08:20 Intake & Output 12/04/23 12/05/23 12/05/23 18:59 06:59 18:59 Intake Total 3343.839 2319.327 225.352 Output Total 825 1205 50 Balance 2518.839 1114.327 175.352 Weight 126.552 kg Intake: IV 1848 1212 100 Anidulafungin 100 mg In 84 Sodium Chloride 0.9% 100 ml @ 84 mls/hr IVPB DAILY [facility] Rx#:[id number] Lactated Ringers 1,000 ml 560 700 100 @ 100 mls/hr IV .Q10H [facility] Rx#:[id number] Pressure bag 36 12 Vancomycin 2,000 mg In 1168 500 Sodium Chloride 0.9% 500 ml 500 ml @ 167 mls/hr IVPB Q8H [facility] Rx#: [id number] Intake, IV Titration 1437.839 423.327 71.352 Amount Lactated Ringers 1,000 ml 120 @ 100 mls/hr IV .Q10H [facility] Rx#:[id number] Lactated Ringers 1,000 ml 800 @ 20 mls/hr IV .Q24H [facility] Rx#:[id number] fentaNYL (PF). 1,000 mcg 192.309 168.900 71.352 In Sodium Chloride 0.9% 80 ml @ 0.5 MCG/KG/HR 4. 99 mls/hr IV .Q20H3M [facility] Rx#:[id number] propofoL 1,000 mg In 325.530 254.427 Empty Bag 1 bag @ 15 MCG/ KG/MIN 8.981 mls/hr IV . Q11H9M [facility] Rx#:[id number] Tube Feeding 58 594 54 Other 90 Output: Chest Tube Drainage 140 150 Chest Tube 140 70 Chest Tube Right 0 80 Urine 685 1055 50 Other: Voiding Method Indwelling Catheter Indwelling Catheter # Bowel Movements 1 ABP, PAP, CO, CI - Last Documented Arterial Blood Pressure 106/58 - Exam No acute distress, sedated, with a midline tracheostomy tube. HEENT examination is grossly unremarkable. Neck supple. Full range of motion. No adenopathy thyromegaly or neck vein distention. Cardiovascular examination reveals regular rhythm rate. S1-S2 normal. No S3 or S4. No discernible murmur noted. Heart rate 94 bpm. Lungs reveal bilateral coarse rhonchi. No wheezes or crackles. Breath sounds equal. Saturations are 94 %. Abdomen soft, with bowel sounds. No masses. Abdomen obese. PEG tube noted. Extremities are intact. No cyanosis clubbing or edema. Skin is without rash or lesion. Neurologic examination cannot be assessed at this time. - Labs CBC & Chem 7: 12/04/23 04:26 12/04/23 04:26 Labs: Abnormal Lab Results - Last 24 Hours (Table) 12/04/23 12/05/23 12/05/23 Range/Units 23:58 05:35 06:34 ABG pCO2 49 H (35-45) mmHg ABG pO2 75 L (83-108) mmHg ABG HCO3 34 H (21-25) mmol/L ABG Total CO2 35 H (19-24) mmol/L POC Glucose (mg/dL) 113 H 123 H (70-110) mg/dL Assessment and Plan Assessment: Acute hypoxemic respiratory failure, S/P intubation and mechanical ventilation on November 23. Acute bilateral methicillin-resistant Staph aureus pneumonia, with empyema, and hydropneumothorax. S/P tracheostomy and PEG tube placement December 03, 2023. S/P bilateral chest tube placement. Acute sepsis with septic shock. History of polysubstance abuse. History of multiple sclerosis. History of anxiety/depression. History of interstitial cystitis and urinary tract infection. Fibromyalgia. Chronic pain syndrome. History of seizure disorder. Degenerative joint disease. Morbid obesity. Essential hypertension. Plan: Plan dated December 01, 2023. We did speak to Dr. Royal about this patient. He feels that any additional surgical intervention, is not warranted at this time. Labs, x-rays, medications are reviewed. The patient will likely end up with a tracheostomy. Dr. Royal is willing to do it. In addition, we will ask our surgical colleagues, for PEG tu be placement. The patient continues on propofol, fentanyl, and lactated Ringer's. She continues on vancomycin for her infection. Labs, x-rays, medications are all reviewed. The patient's overall prognosis remains very guarded. We will continue to follow the patient, make recommendations. Plan dated December 02, 2023. The patient remains on lactated Ringer's, propofol, and fentanyl. Tube feedings are on hold, for PEG tube placement today. Tracheostomy will be performed on Friday, by Dr. Royal. Labs, x-rays, and medications are all reviewed. The patient continues on antibiotics for her methicillin-resistant Staph aureus infection. We will continue to follow and make recommendations along the way. The patient continues on vancomycin. The patient's overall prognosis remains very guarded. Plan dated December 03, 2023. The patient had a PEG tube placed today. The patient is seen again in the intensive care unit, room 254. She remains on the ventilator. Blood gases are reasonable, showing a very mild metabolic alkalosis. She remains on propofol at 50 mcg/kg/min, lactated Ringer's at 100 cc an hour, and fentanyl at 1.5 mcg/kg/h. The tracheostomy is to be performed tomorrow. The patient continues on vancomycin, and infectious diseases have just added a Eraxis. Tube feedings are currently on hold. Labs, x-rays, and medications are reviewed. Overall prognosis remains very guarded. No additional recommendations are made. We will continue to follow. Plan dated December 04, 2023. The patient had a tracheostomy and PEG tube placement performed on December 02. She will also have a PICC line placed. Tube feedings are currently still on hold. The patient continues on vancomycin, and Eraxis. The patient is on propofol at 50 mcg/kg/min, and fentanyl 1.5 mcg/kg/h. The patient is also getting lactated Ringer's at 100 cc an hour. Labs, x-rays, and medications are all reviewed. We will continue to follow the patient, make recommendations along the way. Prognosis is certainly guarded at this time. Plan dated December 05, 2023. The patient had her tracheostomy tube and PEG tube placed on December 02. The patient also has had a PICC line placed. Currently, she remains on propofol, fentanyl, and she is receiving tube feedings. Blood gases show pO2 of 75, pCO2 49, pH is 7.44. The patient continues on vancomycin and Eraxis. We are going to discontinue the lactated Ringer's. We are going to give the patient Lasix 60 mg IV push, x 1. In addition, the patient will get Dilaudid 1 mg down the PEG tube every 6 hours, to see if we can get the patient off of IV fentanyl. Additional recommendations and suggestions are forthcoming. We will continue to follow make recommendations. Prognosis is guarded. Chest x-ray has improved somewhat over the last few days. Time with Patient: Greater than 30
--- NOTE | 2023-12-05 11:32 | P.PN ---
Subjective Progress Note Date: 12/05/23 Principal diagnosis: Acute hypoxic respiratory failure requiring mechanical ventilation, bilateral hydropneumothoraces, empyema, status post bilateral chest tube insertion, septic shock. Past medical history significant for MS, obesity, migraines, seizures, fibromyalgia, hypertension, asthma, anxiety/depression/bipolar disorder, polysubstance abuse. POD #2 placement of tracheostomy and PEG tube by Dr. Johnson. POD #1 placement of peripherally inserted central catheter under fluoroscopic guidance using chest x-rays by Dr. Beth. Patient was seen and examined at her bedside today December 05, 2023 in the intensive care unit. The patient's trach is midline and in place, remains on mechanical ventilator support. Currently is sedated on propofol drip at 55 mcg/kg/min. PEG tube in place with tube feedings infusing at goal rate of 54 mL/h. Patient does have MRSA in her blood, pleural fluid, sputum and nasal swab. Blood cultures from November 25 and November 26 are negative. She remains on vancomycin, and Eraxis for antibiotic coverage managed by infectious disease. Tmax temperature in the last 24 hours is 99.8 F. She remains hemodynamically stable and is currently on no inotropic or pressor support. Chest x-ray results reviewed. Objective - Vital Signs Vital signs: Vital Signs Temp 99.8 F H 12/05/23 08:00 Pulse 95 12/05/23 08:34 Resp 24 12/05/23 08:34 BP 98/51 12/05/23 08:00 Pulse Ox 93 L 12/05/23 08:00 FiO2 50 12/05/23 08:20 Intake & Output 12/04/23 12/05/23 12/05/23 18:59 06:59 18:59 Intake Total 3343.839 2319.327 225.352 Output Total 825 1205 50 Balance 2518.839 1114.327 175.352 Weight 126.552 kg Intake: IV 1848 1212 100 Anidulafungin 100 mg In 84 Sodium Chloride 0.9% 100 ml @ 84 mls/hr IVPB DAILY [facility] Rx#:[id number] Lactated Ringers 1,000 ml 560 700 100 @ 100 mls/hr IV .Q10H [facility] Rx#:[id number] Pressure bag 36 12 Vancomycin 2,000 mg In 1168 500 Sodium Chloride 0.9% 500 ml 500 ml @ 167 mls/hr IVPB Q8H [facility] Rx#: [id number] Intake, IV Titration 1437.839 423.327 71.352 Amount Lactated Ringers 1,000 ml 120 @ 100 mls/hr IV .Q10H [facility] Rx#:[id number] Lactated Ringers 1,000 ml 800 @ 20 mls/hr IV .Q24H [facility] Rx#:[id number] fentaNYL (PF). 1,000 mcg 192.309 168.900 71.352 In Sodium Chloride 0.9% 80 ml @ 0.5 MCG/KG/HR 4. 99 mls/hr IV .Q20H3M [facility] Rx#:[id number] propofoL 1,000 mg In 325.530 254.427 Empty Bag 1 bag @ 15 MCG/ KG/MIN 8.981 mls/hr IV . Q11H9M [facility] Rx#:[id number] Tube Feeding 58 594 54 Other 90 Output: Chest Tube Drainage 140 150 Chest Tube 140 70 Chest Tube Right 0 80 Urine 685 1055 50 Other: Voiding Method Indwelling Catheter Indwelling Catheter # Bowel Movements 1 ABP, PAP, CO, CI - Last Documented Arterial Blood Pressure 106/58 - Exam CONSTITUTIONAL: Currently sedated with propofol, mechanical ventilation, laying in bed in the intensive care unit RESPIRATORY: Lungs sounds diminished bilaterally. Respirations symmetrical, nonlabored with mechanical ventilator support, current settings assist-control mode, FiO2 50%, tidal volume 450, PEEP 5, respiratory rate 24. CARDIOVASCULAR: S1, S2 present. Regular rate and rhythm, sinus rhythm to sinus tach on telemetry. Palpable peripheral pulses bilaterally. Generalized trace edema present. No calf pain or tenderness noted. SCDs present. GASTROINTESTINAL: Abdomen soft, nontender, nondistended. Active bowel sounds present 4 quadrants. PEG tube present, currently n.p.o. Last bowel movement 12/04/2023. GENITOURINARY: Beth present draining clear, yellow urine. Output 3250 mL in the last 8 hours. INTEGUMENTARY: Skin is warm and dry, no clubbing or cyanosis is present. Dressings to her bilateral chest tube insertion sites clean dry and intact. NEUROLOGIC: Sedated on mechanical ventilation, unable to accurately assess at this time. INVASIVE LINES AND TUBES: Left/right pleural chest tubes present and connected to wall suction, no air leaks present this morning. Left pleural chest tube with 210 mL thin serosanguineous drainage in the last 24 hours. Right pleural chest tube with 90 mL in the last 24 hours. Right arm PICC line. - Allied health notes Allied health notes reviewed: nursing - Labs CBC & Chem 7: 12/04/23 04:26 12/04/23 04:26 Labs: Abnormal Lab Results - Last 24 Hours (Table) 12/04/23 12/05/23 12/05/23 Range/Units 23:58 05:35 06:34 ABG pCO2 49 H (35-45) mmHg ABG pO2 75 L (83-108) mmHg ABG HCO3 34 H (21-25) mmol/L ABG Total CO2 35 H (19-24) mmol/L POC Glucose (mg/dL) 113 H 123 H (70-110) mg/dL - Imaging and Cardiology Chest x-ray: report reviewed, image reviewed Assessment and Plan Assessment: Acute hypoxic respiratory failure requiring mechanical ventilation, status post trach and PEG placement Bilateral hydropneumothoraces, empyema, status post bilateral chest tube insertion Septic shock, requiring IV vasopressors Chest pain, shortness of breath present on admission secondary to above History of MS Obesity Migraines Seizures Fibromyalgia Hypertension Asthma Anxiety/depression/bipolar disorder Polysubstance abuse Plan: Leave left and right pleural chest tubes until there is no drainage and then it will be removed. CT chest without contrast to evaluate progression once stable enough for transfer. Ventilator management per insurance account specialist. Antibiotics per infectious disease. Medical management of other comorbidities per internal medicine, pulmonology, ID. More recommendations to follow based on patient's clinical course. Time with Patient: Less than 30
[2023-12-05 11:41] LABS: Glucose,Whole Blood 137 mg/dL (70-110)
[2023-12-05] MEDS: HYDROmorphone 1 MG/ML 1 ML SYRINGE IVP SCH (11:46)
--- NOTE | 2023-12-05 16:02 | P.PN ---
Subjective Progress Note Date: 12/05/23 43 year old female evaluated today in the intensive care unit. Patient is currently sedated and remains on the mechanical ventilator. Presents from the [facility] with shortness of breath and cough. Patient found to have bilateral pneumothorax and continues currently with right and left sided chest tubes. Chest xray today reveals continued diffuse bilateral airspace disease with extensive pleural parenchymal opacity. Continues on IV vancomycin due to MRSA bacteremia. White blood cell count today 24.2, hgb 7.1. Sodium 136, potassium 3.4. Remains on IV fentanyl, IV versed, IV propofol. Being considered from tracheostomy and PEG tube placement. Remains febrile with T-max 101.4 overnight. Unable to complete a review of systems as patient is currently intubated and sedated on the mechanical ventilator 12/05/2023 Patient is seen and evaluated in room at bedside; remains on the mechanical ventilator. -- Blood gases show pO2 75, pCO2 49, pH is 7.44. Labs include a white count of 16.7, hemoglobin 7.2, hematocrit 22.3, and a platelet count of 277,000. Sodium 138, potassium 3.6, chlorides 105, CO2 28, BUN 8, creatinine 0.35. The glucose is 123. The calcium is 7.3. Gram stain, and blood cultures, show evidence of methicillin-resistant Staph aureus. Chest x-ray shows a midline tracheostomy tube. The NG tube has been removed. The patient continues on vancomycin and Eraxis. Objective - Vital Signs Vital signs: Vital Signs Temp 99.8 F H 12/05/23 08:00 Pulse 95 12/05/23 08:34 Resp 24 12/05/23 08:34 BP 98/51 12/05/23 08:00 Pulse Ox 93 L 12/05/23 08:00 FiO2 50 12/05/23 08:20 Intake & Output 12/04/23 12/05/23 12/05/23 18:59 06:59 18:59 Intake Total 3343.839 2319.327 225.352 Output Total 825 1205 50 Balance 2518.839 1114.327 175.352 Weight 126.552 kg Intake: IV 1848 1212 100 Anidulafungin 100 mg In 84 Sodium Chloride 0.9% 100 ml @ 84 mls/hr IVPB DAILY [facility] Rx#:[id number] Lactated Ringers 1,000 ml 560 700 100 @ 100 mls/hr IV .Q10H [facility] Rx#:[id number] Pressure bag 36 12 Vancomycin 2,000 mg In 1168 500 Sodium Chloride 0.9% 500 ml 500 ml @ 167 mls/hr IVPB Q8H [facility] Rx#: [id number] Intake, IV Titration 1437.839 423.327 71.352 Amount Lactated Ringers 1,000 ml 120 @ 100 mls/hr IV .Q10H [facility] Rx#:[id number] Lactated Ringers 1,000 ml 800 @ 20 mls/hr IV .Q24H [facility] Rx#:[id number] fentaNYL (PF). 1,000 mcg 192.309 168.900 71.352 In Sodium Chloride 0.9% 80 ml @ 0.5 MCG/KG/HR 4. 99 mls/hr IV .Q20H3M [facility] Rx#:[id number] propofoL 1,000 mg In 325.530 254.427 Empty Bag 1 bag @ 15 MCG/ KG/MIN 8.981 mls/hr IV . Q11H9M [facility] Rx#:[id number] Tube Feeding 58 594 54 Other 90 Output: Chest Tube Drainage 140 150 Chest Tube 140 70 Chest Tube Right 0 80 Urine 685 1055 50 Other: Voiding Method Indwelling Catheter Indwelling Catheter # Bowel Movements 1 ABP, PAP, CO, CI - Last Documented Arterial Blood Pressure 106/58 - Exam GENERAL: The patient is alert and oriented x0, not in any acute distress. I ntubated and sedated. Well developed, well nourished. Sedated. Patient will follow commands. FiO2 is 50% with a PEEP of 5 HEENT: Pupils are round and equally reacting to light. EOMI. No scleral icterus. No conjunctival pallor. Normocephalic, atraumatic. No pharyngeal erythema. No thyromegaly. CARDIOVASCULAR: S1 and S2 present. No murmurs, rubs, or gallops. PULMONARY: Chest is clear to auscultation, no wheezing . Coarse rhonchi noted throughout. Faint crackles noted on the right bases ABDOMEN: Soft, obese. Nontender, nondistended, normoactive bowel sounds. No palpable organomegaly. PEG tube noted MUSCULOSKELETAL: No joint swelling or deformity. EXTREMITIES: No cyanosis, clubbing, or pedal edema. NEUROLOGICAL: Unable to asses pt is sedated SKIN: No rashes. - Labs CBC & Chem 7: 12/04/23 04:26 12/04/23 04:26 Labs: Abnormal Lab Results - Last 24 Hours (Table) 12/04/23 12/05/23 12/05/23 Range/Units 23:58 05:35 06:34 ABG pCO2 49 H (35-45) mmHg ABG pO2 75 L (83-108) mmHg ABG HCO3 34 H (21-25) mmol/L ABG Total CO2 35 H (19-24) mmol/L POC Glucose (mg/dL) 113 H 123 H (70-110) mg/dL Assessment and Plan Assessment: Acute hypoxic respiratory failure requiring mechanical ventilation secondary to acute bilateral pneumonia, status post PEG and trach placement on 12/03/2023. Acute bilateral pneumonia complicated by bilateral pneumothoraces. Acute bilateral empyema, post bilateral chest tube insertion with purulent material draining from both lungs. MRSA bacteremia Anemia with iron studies revealing underlying iron deficiency. Status post 2 units PRBC on 12/02/2023 Acute septic shock Acute leukocytosis secondary to above Morbid obesity Polysubstance abuse Hyponatremia Elevated LFTs Lactic acidosis GI prophylaxis DVT prophylaxis Lovenox Full Code Plan: Repeat labs in the AM, replace electrolytes per protocol Hemoglobin is currently stable above 7 today and is status post 2 unit of PRBC. No active bleeding noted. Tube feedings currently on hold and has received a PEG tube and will resume feedings to work towards goal at noon per surgery recommendations Patient is status post tracheostomy continues to be on a vent with an FiO2 of 50% and PEEP is 5 Continue telemetry monitoring Continue vent management per ICU Aggressive bronchopulmonary hygiene Blood cultures growing MRSA, repeat blood cultures thus far negative, continue with IV vancomycin per ID. Patient is scheduled to receive a PICC line today Currently weaned off vasopressor support. Continue chest tube management per CT surgery, plan for possible chest tube removal later today. Will follow-up on chest x-ray Social work following and plan is for select specialty of [place] once stable. Patient has been released from custody as she was incarcerated prior to this Due to multiple complex medical issues, overall prognosis is extremely poor and guarded at this time
--- NOTE | 2023-12-05 16:22 | P.PN ---
Subjective Progress Note Date: 12/05/23 CHIEF COMPLAINT: Respiratory failure HISTORY OF PRESENT ILLNESS: Patient remains in the ICU on mechanical ventilation. She has chest tubes in place. She is POD#2, status post tracheostomy and PEG tube placement. She has been started on her tube feeds. Tube feeds are currently at 54 mL/h. PHYSICAL EXAM: VITAL SIGNS: Reviewed. GENERAL: no acute distress. HEENT: Secretions noted around tracheostomy site ABDOMEN: Soft. Nondistended. Nontender. PEG tube site clean dry and intact NEUROLOGIC: Intubated and sedated ASSESSMENT: 1. Severe protein calorie malnutrition 2. Respiratory failure with MRSA pneumonia, empyema and hydropneumothorax status post chest tube placement bilaterally PLAN: -Continue to titrate tube feeds per dietitian recommendations -Continue ICU management -Continue supportive care Physician Ged Instructor note has been reviewed by physician. Signing provider agrees with the documented findings, assessment, and plan of care. Objective - Vital Signs Vital signs: Vital Signs Temp 99.8 F H 12/05/23 12:00 Pulse 101 H 12/05/23 15:13 Resp 29 H 12/05/23 15:13 BP 107/53 12/05/23 15:00 Pulse Ox 95 12/05/23 15:00 FiO2 50 12/05/23 16:00 Intake & Output 12/04/23 12/05/23 12/05/23 18:59 06:59 18:59 Intake Total 3343.839 2319.327 1444.694 Output Total 825 1205 8630 Balance 2518.839 1114.327 -7185.306 Weight 126.552 kg Intake: IV 1848 1212 950 Anidulafungin 100 mg In 84 100 Sodium Chloride 0.9% 100 ml @ 84 mls/hr IVPB DAILY [facility] Rx#:[id number] Lactated Ringers 1,000 ml 560 700 350 @ 100 mls/hr IV .Q10H [facility] Rx#:[id number] Pressure bag 36 12 Vancomycin 2,000 mg In 1168 500 500 Sodium Chloride 0.9% 500 ml 500 ml @ 167 mls/hr IVPB Q8H [facility] Rx#: [id number] Intake, IV Titration 1437.839 423.327 170.694 Amount Lactated Ringers 1,000 ml 120 @ 100 mls/hr IV .Q10H [facility] Rx#:[id number] Lactated Ringers 1,000 ml 800 @ 20 mls/hr IV .Q24H [facility] Rx#:[id number] fentaNYL (PF). 1,000 mcg 192.309 168.900 71.352 In Sodium Chloride 0.9% 80 ml @ 0.5 MCG/KG/HR 4. 99 mls/hr IV .Q20H3M [facility] Rx#:[id number] propofoL 1,000 mg In 325.530 254.427 99.342 Empty Bag 1 bag @ 15 MCG/ KG/MIN 8.981 mls/hr IV . Q11H9M [facility] Rx#:[id number] Tube Feeding 58 594 324 Other 90 Output: Chest Tube Drainage 140 150 80 Chest Tube 140 70 70 Chest Tube Right 0 80 10 Urine 685 1055 8550 Other: Voiding Method Indwelling Catheter Indwelling Catheter Indwelling Catheter # Voids 175 # Bowel Movements 1 ABP, PAP, CO, CI - Last Documented Arterial Blood Pressure 106/58 - Labs CBC & Chem 7: 12/04/23 04:26 12/04/23 04:26 Labs: Abnormal Lab Results - Last 24 Hours (Table) 12/04/23 12/05/23 12/05/23 Range/Units 23:58 05:35 06:34 ABG pCO2 49 H (35-45) mmHg ABG pO2 75 L (83-108) mmHg ABG HCO3 34 H (21-25) mmol/L ABG Total CO2 35 H (19-24) mmol/L POC Glucose (mg/dL) 113 H 123 H (70-110) mg/dL 12/05/23 Range/Units 11:39 ABG pCO2 (35-45) mmHg ABG pO2 (83-108) mmHg ABG HCO3 (21-25) mmol/L ABG Total CO2 (19-24) mmol/L POC Glucose (mg/dL) 137 H (70-110) mg/dL
[2023-12-05 17:09] LABS: Glucose,Whole Blood 108 mg/dL (70-110)
--- NOTE | 2023-12-05 17:27 | CT ---
EXAMINATION TYPE: CT chest wo con DATE OF EXAM: 12/05/2023 COMPARISON: CT chest abdomen pelvis dated 03/19/2021 HISTORY: Bilateral hydropneumothoraces. CT DLP: 1175.6 mGycm. Automated Exposure Control for Dose Reduction was Utilized. TECHNIQUE: CT scan of the thorax is performed without IV contrast. FINDINGS: There are bilateral hydropneumothoraces, left greater than right. There are bilateral chest tubes in the posterior inferior pleural spaces. There are marked multifocal areas of dense consolidation in the lung parenchyma greatest in the right upper lobe and in the left lower lobe. There is an ET tube approximately 3.1 cm above the alicia. The heart size is normal. Limited scans through the upper abdomen reveals marked anasarca of the soft tissues. IMPRESSION: 1.Bilateral hydropneumothoraces, left greater than right. Bilateral chest tubes. 2. Marked dense consolidative opacities in both lungs. 3. ET tube approximately 3.1 cm above the alicia.
--- NOTE | 2023-12-05 20:58 | P.PN ---
Subjective Progress Note Date: 12/05/23 Principal diagnosis: Reason for follow-up is sepsis MRSA pneumonia bacteremia and empyema Patient is a 43-year-old female past medical history significant for hypertension fibromyalgia asthma reflux seizure disorder currently incarcerated and [facility] local [facility] for evaluation of increasing shortness of breath and chest pain, patient did have evidence of bilateral hydropneumothorax requiring bilateral chest tube placement and did have a positive blood culture with MRSA. Patient is status post tracheostomy completed on 12/03/2023. On today's evaluation that is 12/05/2023, the patient did have improvement in her fever pattern and did have low-grade fever of 99.8 F patient remains to be debated on the vent FiO2 of 50%, no diarrhea or any other changes reported by the nursing staff. No CBC or BMP was done today Objective - Vital Signs Vital signs: Vital Signs Temp 99.6 F 12/05/23 16:00 Pulse 100 12/05/23 20:14 Resp 35 H 12/05/23 19:57 BP 103/59 12/05/23 19:00 Pulse Ox 94 L 12/05/23 19:00 FiO2 50 12/05/23 19:58 Intake & Output 12/05/23 12/05/23 12/06/23 06:59 18:59 06:59 Intake Total 2319.327 1488.415 153.463 Output Total 1205 9030 100 Balance 1114.327 -7541.585 53.463 Weight 126.552 kg 126.552 kg Intake: IV 1212 980 10 Anidulafungin 100 mg In 100 Sodium Chloride 0.9% 100 ml @ 84 mls/hr IVPB DAILY [facility] Rx#:[id number] Lactated Ringers 1,000 ml 700 380 10 @ 100 mls/hr IV .Q10H [facility] Rx#:[id number] Pressure bag 12 Vancomycin 2,000 mg In 500 500 Sodium Chloride 0.9% 500 ml 500 ml @ 167 mls/hr IVPB Q8H [facility] Rx#: [id number] Intake, IV Titration 423.327 184.415 89.463 Amount fentaNYL (PF). 1,000 mcg 168.900 71.352 In Sodium Chloride 0.9% 80 ml @ 0.5 MCG/KG/HR 4. 99 mls/hr IV .Q20H3M [facility] Rx#:[id number] propofoL 1,000 mg In 254.427 113.063 89.463 Empty Bag 1 bag @ 15 MCG/ KG/MIN 8.981 mls/hr IV . Q11H9M [facility] Rx#:[id number] Tube Feeding 594 324 54 Other 90 Output: Chest Tube Drainage 150 80 Chest Tube 70 70 Chest Tube Right 80 10 Urine 1055 8950 100 Other: Voiding Method Indwelling Catheter Indwelling Catheter # Voids 175 # Bowel Movements 1 ABP, PAP, CO, CI - Last Documented Arterial Blood Pressure 106/58 - Exam GENERAL DESCRIPTION: Middle-aged female intubated through the trach RESPIRATORY SYSTEM: Unlabored breathing , coarse breath sounds bilaterally HEART: S1 S2 regular rate and rhythm , ABDOMEN: Soft , no tenderness EXTREMITIES: No edema feet - Labs CBC & Chem 7: 12/04/23 04:26 12/04/23 04:26 Labs: Abnormal Lab Results - Last 24 Hours (Table) 12/04/23 12/05/23 12/05/23 Range/Units 23:58 05:35 06:34 ABG pCO2 49 H (35-45) mmHg ABG pO2 75 L (83-108) mmHg ABG HCO3 34 H (21-25) mmol/L ABG Total CO2 35 H (19-24) mmol/L POC Glucose (mg/dL) 113 H 123 H (70-110) mg/dL 12/05/23 Range/Units 11:39 ABG pCO2 (35-45) mmHg ABG pO2 (83-108) mmHg ABG HCO3 (21-25) mmol/L ABG Total CO2 (19-24) mmol/L POC Glucose (mg/dL) 137 H (70-110) mg/dL Assessment and Plan (1) Empyema Current Visit: Yes Status: Acute Code(s): J86.9 - PYOTHORAX WITHOUT FISTULA SNOMED Code(s): 473721715 (2) MRSA bacteremia Current Visit: Yes Status: Acute Code(s): R78.81 - BACTEREMIA; B95.62 - METHICILLIN RESIS STAPH INFCT CAUSING DISEASES [facility] SNOMED Code(s): 16006269002908131 (3) Pneumonia Current Visit: Yes Status: Acute Code(s): J18.9 - PNEUMONIA, UNSPECIFIED ORGANISM SNOMED Code(s): 112048911 (4) Pneumothorax Current Visit: Yes Status: Acute Code(s): J93.9 - PNEUMOTHORAX, UNSPECIFIED SNOMED Code(s): 54730060 Plan: 1patient presented to hospital with sepsis in this patient who did have a fever tachycardia elevated white count source is pulmonary in this patient noted evidence of bilateral pneumothorax and effusion with question of complicated pneumonia/empyema keeping in mind the patient is from local [facility] will need to cover for resistant gram-positive such as MRSA and gram-negative pathogen 2-patient blood sputum and pleural fluid culture with MRSA 3-Patient did clear her bacteremia as the blood culture from 11/26/2023 as well as 11/27/2023 has been negative patient did have a PICC line placement on 12/04/2023 4-patient did have improvement in her fever pattern and white count is trending down, no CBC was done today we will order 1 for tomorrow patient to continue w ith the vancomycin 5-patient with oropharyngeal candidiasis patient is currently covered with Eraxis and monitor clinical course closely Dictation was produced using [employer] dictation software. please excuse any grammatical, word or spelling errors. Time with Patient: Less than 30
[2023-12-05] MEDS: POTASSIUM BICARBONATE/CIT AC 20 MEQ TABLET.EFF NG-TUBE SCH (22:22)
[2023-12-05 23:10] LABS: Glucose,Whole Blood 108 mg/dL (70-110)
[2023-12-06 05:36] LABS: Glucose,Whole Blood 128 mg/dL (70-110)
[2023-12-06 06:15] LABS: Basophils % (A) 0 %; Eosinophils # (A) 0.4 k/uL (0-0.7); Eosinophils % (A) 3 %; HCT 23.1 % (34.0-46.0); Hypochromasia Slight; Lymphocytes # (A) 0.9 k/uL (1.0-4.8); Lymphocytes % (A) 7 %; MCH 28.2 pg (25.0-35.0); MCHC 30.3 g/dL (31.0-37.0); MCV 93.2 fL (80.0-100.0); Mean Platelet Volume 9.1; Monocytes # (A) 0.4 k/uL (0-1.0); Monocytes % (A) 3 %; Neutrophils # (A) 10.9 k/uL (1.3-7.7); Neutrophils % (A) 85 %; Platelet Count 282 k/uL (150-450); RBC 2.48 m/uL (3.80-5.40); RDW 14.6 % (11.5-15.5); WBC 12.8 k/uL (3.8-10.6)
[2023-12-06 06:30] LABS: ABG Base Excess 15.3 mmol/L; ABG HCO3 38 mmol/L (21-25); ABG Oxygen Saturation 96.1 % (94-97); ABG PCO2 48 mmHg (35-45); ABG PH 7.51 (7.35-7.45); ABG PO2 68 mmHg (83-108); ABG TCO2 40 mmol/L (19-24); Allen Test Performed? Yes
[2023-12-06 06:53] LABS: ALT 20 U/L (4-34); AST 39 U/L (14-36); African American GFR (CKD) >90 (>60 ml/min/1.73 sqM); Albumin 1.9 g/dL (3.5-5.0); Alkaline Phosphatase 79 U/L (38-126); Anion Gap 1 mmol/L; Blood Urea Nitrogen 6 mg/dL (7-17); Calcium 7.2 mg/dL (8.4-10.2); Carbon Dioxide 37 mmol/L (22-30); Chloride 100 mmol/L (98-107); Glucose 98 mg/dL (74-99); Non-African American GFR(CKD) >90 (>60 ml/min/1.73 sqM); Potassium 3.2 mmol/L (3.5-5.1); Sodium 138 mmol/L (137-145); Total Bilirubin 0.7 mg/dL (0.2-1.3); Total Protein 4.9 g/dL (6.3-8.2)
[2023-12-06] MEDS: POTASSIUM BICARBONATE/CIT AC 20 MEQ TABLET.EFF NG-TUBE SCH ×2 (08:35→20:30)
--- NOTE | 2023-12-06 09:28 | XR ---
EXAMINATION TYPE: XR chest 1V portable DATE OF EXAM: 12/06/2023 Comparison: 12/05/2023 Clinical History: 43-year-old female ventilator dependant respiratory failure Findings: Tracheostomy cannula. Bilateral chest tubes. Diffuse bilateral airspace disease similar to slightly w orsened. Patient's catheters are not well seen due to the degree of penetration. Heart margins not we ll seen due to the bilateral airspace disease. Impression: Diffuse bilateral airspace disease similar to slightly worsened.
--- NOTE | 2023-12-06 10:31 | P.PN ---
Subjective Progress Note Date: 12/06/23 Principal diagnosis: Acute hypoxic respiratory failure requiring mechanical ventilation, bilateral hydropneumothoraces, empyema, status post bilateral chest tube insertion, septic shock. Past medical history significant for MS, obesity, migraines, seizures, fibromyalgia, hypertension, asthma, anxiety/depression/bipolar disorder, polysubstance abuse. POD #3 placement of tracheostomy and PEG tube by Dr. Johnson. POD #2 placement of peripherally inserted central catheter under fluoroscopic guidance using chest x-rays by Dr. Beth. Patient was seen and examined in follow-up today December 06, 2023 at her bedside in the intensive care unit. She remains with mechanical ventilator support, tracheostomy midline and intact and is sedated on propofol drip at 55 mcg/kg/min. She is moving all 4 extremities, although is not following any verbal commands. Mechanical ventilator settings are assist-control 24, TV 450, FiO2 50% and a PEEP of 5. ABG results this morning show a pH of 7.51, pCO2 48, pO2 68, HCO3 38, oxygen saturation 96.1 and base excess of 15.3. Right and left pleural chest tubes remain in place to low continuous wall suction -20 cm H2O. No air leak is present. Right pleural chest tube with 0 drainage in the last 8 hours and 130 mL output in the last 24 hours. Left pleural chest tube with 35 mL output in the last 8 hours and 100 mL output in the last 24 hours. Her Tmax temperature in the last 24 hours was 99.8 F, she remains on vancomycin, and Eraxis for antibiotic coverage managed by infectious disease. A CT scan of the chest was completed yesterday with the report showing bilateral hydropneumothoraces, left greater than right, bilateral chest tubes, and marked dense consolidative opacities in both lungs. Chest x-ray results reviewed this morning. Objective - Vital Signs Vital signs: Vital Signs Temp 99.6 F 12/06/23 04:00 Pulse 99 12/06/23 10:00 Resp 16 12/06/23 10:00 BP 107/60 12/06/23 10:00 Pulse Ox 95 12/06/23 10:00 FiO2 50 12/06/23 07:58 Intake & Output 12/05/23 12/06/23 12/06/23 18:59 06:59 18:59 Intake Total 1568.225 5468.009 322 Output Total 9030 1904 535 Balance -7541.585 -388.991 -213 Weight 126.552 kg 139.48 kg Intake: IV 980 590 40 0.9 @ KVO 30 40 Anidulafungin 100 mg In 100 Sodium Chloride 0.9% 100 ml @ 84 mls/hr IVPB DAILY [facility] Rx#:[id number] Lactated Ringers 1,000 ml 380 60 @ 100 mls/hr IV .Q10H [facility] Rx#:[id number] Vancomycin 2,000 mg In 500 500 Sodium Chloride 0.9% 500 ml 500 ml @ 167 mls/hr IVPB Q8H [facility] Rx#: [id number] Intake, IV Titration 184.415 363.009 100 Amount fentaNYL (PF). 1,000 mcg 71.352 In Sodium Chloride 0.9% 80 ml @ 0.5 MCG/KG/HR 4. 99 mls/hr IV .Q20H3M [facility] Rx#:[id number] propofoL 1,000 mg In 113.063 363.009 100 Empty Bag 1 bag @ 15 MCG/ KG/MIN 8.981 mls/hr IV . Q11H9M [facility] Rx#:[id number] Tube Feeding 324 472 152 Other 90 30 Output: Chest Tube Drainage 80 64 0 Chest Tube 70 20 0 Chest Tube Right 10 44 0 Urine 8950 1840 535 Other: Voiding Method Indwelling Catheter Indwelling Catheter Indwelling Catheter # Voids 175 # Bowel Movements 1 ABP, PAP, CO, CI - Last Documented Arterial Blood Pressure 106/58 - Exam CONSTITUTIONAL: Currently sedated with propofol, mechanical ventilation, laying in bed in the intensive care unit RESPIRATORY: Lungs sounds diminished bilaterally. Respirations symmetrical, nonlabored with mechanical ventilator support, current settings assist-control mode, FiO2 50%, tidal volume 450, PEEP 5, respiratory rate 24. CARDIOVASCULAR: S1, S2 present. Regular rate and rhythm, sinus rhythm to sinus tach on telemetry. Palpable peripheral pulses bilaterally. Generalized trace edema present. No calf pain or tenderness noted. SCDs present. GASTROINTESTINAL: Abdomen soft, nontender, nondistended. Active bowel sounds present 4 quadrants. PEG tube present, currently n.p.o. Last bowel movement 12/04/2023. GENITOURINARY: Beth present draining clear, yellow urine. Output 1140 mL in the last 8 hours. INTEGUMENTARY: Skin is warm and dry, no clubbing or cyanosis is present. Dressings to her bilateral chest tube insertion sites clean dry and intact. NEUROLOGIC: Sedated on mechanical ventilation, unable to accurately assess at this time. INVASIVE LINES AND TUBES: Left/right pleural chest tubes present and connected to wall suction, no air leaks present this morning. Left pleural chest tube with 100 mL thin serosanguineous drainage in the last 24 hours. Right pleural chest tube with 130 mL in the last 24 hours. Right arm PICC line. - Allied health notes Allied health notes reviewed: nursing - Labs CBC & Chem 7: 12/06/23 05:30 12/06/23 05:30 Labs: Abnormal Lab Results - Last 24 Hours (Table) 12/05/23 12/05/23 12/06/23 Range/Units 11:39 21:25 04:21 WBC (3.8-10.6) k/uL RBC (3.80-5.40) m/uL Hgb (11.4-16.0) gm/dL Hct (34.0-46.0) % MCHC (31.0-37.0) g/dL Neutrophils # (1.3-7.7) k/uL Lymphocytes # (1.0-4.8) k/uL ABG pH 7.51 H (7.35-7.45) ABG pCO2 48 H (35-45) mmHg ABG pO2 68 L (83-108) mmHg ABG HCO3 38 H (21-25) mmol/L ABG Total CO2 40 H (19-24) mmol/L Potassium 3.1 L (3.5-5.1) mmol/L Carbon Dioxide (22-30) mmol/L BUN (7-17) mg/dL Creatinine (0.52-1.04) mg/dL POC Glucose (mg/dL) 137 H (70-110) mg/dL Calcium (8.4-10.2) mg/dL AST (14-36) U/L C-Reactive Protein (<1.0) mg/dL Total Protein (6.3-8.2) g/dL Albumin (3.5-5.0) g/dL 12/06/23 12/06/23 12/06/23 Range/Units 05:30 05:30 05:35 WBC 12.8 H (3.8-10.6) k/uL RBC 2.48 L (3.80-5.40) m/uL Hgb 7.0 L (11.4-16.0) gm/dL Hct 23.1 L (34.0-46.0) % MCHC 30.3 L (31.0-37.0) g/dL Neutrophils # 10.9 H (1.3-7.7) k/uL Lymphocytes # 0.9 L (1.0-4.8) k/uL ABG pH (7.35-7.45) ABG pCO2 (35-45) mmHg ABG pO2 (83-108) mmHg ABG HCO3 (21-25) mmol/L ABG Total CO2 (19-24) mmol/L Potassium 3.2 L (3.5-5.1) mmol/L Carbon Dioxide 37 H (22-30) mmol/L BUN 6 L (7-17) mg/dL Creatinine 0.33 L (0.52-1.04) mg/dL POC Glucose (mg/dL) 128 H (70-110) mg/dL Calcium 7.2 L (8.4-10.2) mg/dL AST 39 H (14-36) U/L C-Reactive Protein 25.0 H (<1.0) mg/dL Total Protein 4.9 L (6.3-8.2) g/dL Albumin 1.9 L (3.5-5.0) g/dL - Imaging and Cardiology Chest x-ray: report reviewed, image reviewed Assessment and Plan Assessment: Acute hypoxic respiratory failure requiring mechanical ventilation, status post trach and PEG placement Bilateral hydropneumothoraces, empyema, status post bilateral chest tube insertion Septic shock, requiring IV vasopressors Chest pain, shortness of breath present on admission secondary to above History of MS Obesity Migraines Seizures Fibromyalgia Hypertension Asthma Anxiety/depression/bipolar disorder Polysubstance abuse Plan: Leave left and right pleural chest tubes, continue to record output. 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 Antibiotics per infectious disease. Medical management of other comorbidities per internal medicine, pulmonology, ID. More recommendations to follow based on patient's clinical course. Time with Patient: Greater than 30
[2023-12-06 11:30] LABS: Glucose,Whole Blood 126 mg/dL (70-110)
--- NOTE | 2023-12-06 13:22 | P.PN ---
Subjective Progress Note Date: 12/06/23 Principal diagnosis: Respiratory failure. Reevaluate today on11/27/23, remains in the ICU, intubated and mechanically ventilated, on assist-control rate of 42 tidal volume 450 FiO2 60% PEEP of 5 ABG showed a pO2 of 72 pCO2 43 pH of 7.49. Patient remains fully sedated she is on fentanyl 1.5 mcg/kg/min she is also on Versed 3 mg/h. Propofol at 50 mcg/kg/min. Patient remains hemodynamically unstable requiring norepinephrine at 0.11 mcg/kg/min she is on vital HP at 16 mL/h. She is also on LR at 150 cc/h. Today I did not make any changes in her ventilator settings. Her chest x-ray is basically about the same continues to show right-sided pneumothorax but I do not see an air leak today on the right side but she does have an air leak on the left side and continues to have significant purulent drainage from the chest tube on the left side. 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 Not much of a change overnight, patient remains critically ill. Continues to have leukocytosis with WBC count of 28.2 hemoglobin 8.5 basic metabolic profile is normal and renal profile is normal Reevaluate today on 11/28/2023, remains in the ICU intubated and mechanically ventilated. Patient is on assist-control rate of 52 tidal volume 450 FiO2 60% PEEP of 5 ABG showed a pO2 of 73 pCO2 37 pH of 7.52 hence FiO2 was cut down to 55% and rate to cut down to 28. Patient continues to have bilateral chest tubes, the left-sided chest tube has ongoing continuous leak, right-sided chest tube has intermittent airleak. However the patient is maintaining her adequate tidal volumes which are about 450. Patient remains on propofol at 50 mcg/kg/min Versed 3 mg/h Fentanyl 1.5 mcg/kg/h patient is also receiving norepinephrine at 0.08 mcg/kg/min. Her IV fluid which is LR Down to 100 cc/h. She is on vital HP patient had a Tmax of 102.9 yesterday, cultures of blood and pleural effusion are positive for MRSA, patient remains on vancomycin. If the patient continues to have positive blood cultures in the next couple of days, may have to consider OSIRIS. The cultures from the are pending. Chest x-ray continues to show significant hydropneumothorax on the left side, and she has mostly hydrothorax on the right side. I could not appreciate a pneumothorax on the right side labs today showed leukocytosis with WBC of 23.1 hemoglobin 7.4, basic metabolic profile is normal renal profile is normal today on 11/29/2023 patient remains intubated and mechanically ventilated, she is on assist-control rate of 28 tidal volume 450 FiO2 55% PEEP of 5 ABG showed a pO2 of 94 pCO2 34 pH of 7.53, hence her vent settings were changed to cut down her rate to 26 cut down FiO2 to 50% And PEEP at 5. Patient's hemoglobin is low today at 6.8, and she will receive a unit of packed RBCs. Patient is being treated for MRSA pneumonia, bacteremia, and empyema. Remains on propofol at 30 mcg/kg/min Fentanyl 1 mcg/kg/h she is also on Versed which I will discontinue today 2 mg/h. Norepinephrine 0.02 mcg/kg/min and IV fluid 0.9 normal saline at 100 cc/h. Chest x-ray continues to show left-sided loculated pneumothorax, and she continues to have ongoing airleak from the left-sided chest tube. The right-sided chest tube seems to be occluded, hence we will ask thoracic surgery to flush the chest tube, and the patient has what seems to be a pleural effusion on the right side, drainage is serosanguineous. Considering the overall picture, the patient is again not quite ready for any weaning, however over the next couple of days as we cut down on sedation, may start waking the patient up and give the patient weaning trials if possible. At this point she remains quite ill, and I doubt if she will tolerate any form of weaning her FiO2 just dropped down from 55 to 50%., Continues to have leukocytosis but improving WBC count is 24.7 hemoglobin 6.8 and she will receive a unit of packed RBCs. Basic metabolic profile is normal renal profile is normal and urine output is excellent Patient was reexamined today on 11/30/2023, remains intubated and mechanically ventilated, remains on vancomycin, patient is on assist-control rate of 24 tidal volume 450 FiO2 50% and PEEP of 5 ABG showed a pO2 of 78 pCO2 48 pH of 7.40 hence no changes were made in vent settings. Chest x-ray showed significant bilateral airspace disease loculated left-sided pneumothorax no clear-cut evidence of pneumothorax on the right. Chest x-ray is also suggestive of interstitial edema/infiltrates, hence the patient will be given a trial of diuresis. Hemoglobin is down to 7.4, patient did receive 1 unit of packed RBCs: WBC count remains high at 25.8 but steadily improving. Patient continues to have air leak in the left side chest tube, but no airleak noted in the right- sided chest tube. Drips bautista the patient is on fentanyl at 1 mcg/kg/h IV fluid LR at 100 cc/h norepinephrine at 0.04 mcg/kg/min propofol at 30 mcg/kg/min vital HP at 44/44. Patient did receive 20 mg of Lasix earlier while on rounds. Her arterial line went and nonfunctional, hence a new arterial line was placed in the left radial artery. Father called about his daughter, and I discussed her condition over the phone with her father and updated him on the situation. He is aware that she is critically ill, and at this point prognosis is relatively guarded. Progress note dated December 01, 2023. This is a 43-year-old female who was admitted on November 22. The patient came in with bilateral pneumonia and empyema. She was intubated for respiratory failure on November 23. Sampling has revealed evidence of methicillin-resistant Staph aureus. She remains on the ventilator.Ventilator settings include volume assist-control, rate 24, tidal volume 450, FiO2 50%, PEEP of 5. Blood gases show pO2 100, pCO2 of 44, pH is 7.47. The patient remains on propofol at 30 mcg/kg/min, fentanyl at 1 mcg/kg/h, lactated Ringer's at 100 cc an hour, and vital AF at 44 cc an hour, which is goal. The patient does continue on vancomycin for her MRSA infection. Current laboratory data includes a white count 24.2, hemoglobin 7.1, hematocrit 22.9, and platelet count 242,000. Sodium 136, potassium 3.2, chlorides 104, CO2 31, BUN 10, creatinine 0.39. Glucose is 111. Calcium is 7.1. Nasal swabs, sputum, blood, wound culture, and pleural fluid, are all consistent with methicillin-resistant Staph aureus. Chest x-ray shows continued bilateral diffuse airspace disease. Bilateral pleural catheters are seen. Progress note dated December 02 2023. This is a 43-year-old female who was admitted on November 22. The patient came in with bilateral pneumonia and empyema. She was intubated for respiratory failure on November 23. Sampling has revealed evidence of methicillin-resistant Staph aureus. She remains on the ventilator. Currently, she is on volume assist- control, rate 24, tidal volume 450, FiO2 50%, PEEP of 5. Blood gases show pO2 73, pCO2 46, pH is 7.47. The patient is getting lactated Ringer's at 100 cc an hour, propofol at 35 mcg/kg/min, and fentanyl at 2 mcg/kg/h. Her tube feedings are on hold, as the patient is to receive a PEG tube today. The patient will have a tracheostomy performed on Friday. White count is 20.4, hemoglobin 6.4, hematocrit 20.1, and platelet count was normal. Sodium 138, potassium 3.7, chlorides 105, CO2 31, BUN 10, creatinine 0.42. Glucose is 95. Calcium 7.1, magnesium 2.0. Nasal swab, pleural fluid, sputum, and blood cultures, are all positive for methicillin-resistant Staph aureus. Chest x-ray shows diffuse bilateral infiltrates. Progress note dated December 03, 2023. 43-year-old female who was admitted on November 22. She was admitted with a diagnosis of bilateral pneumonia, and empyema. She was intubated for respiratory failure on November 23. Thus far, sampling, has revealed evidence of methicillin-resistant Staph aureus. She remains on the ventilator. Settings include volume assist-control, rate 24, tidal volume 450, FiO2 50%, PEEP of 5. Blood gases show pO2 of 81, pCO2 of 44, pH is 7.47. She remains on propofol at 50 mcg/kg/min, lactated Ringer's at 100 cc an hour, and fentanyl at 1.5 mcg/kg/h. She is going to have a PEG tube placed today, and hopefully a tracheostomy performed tomorrow. She continues on vancomycin, and infectious disease doctor has added Eraxis. In addition, the patient has received a total of 3 units of packed red blood cells. White count 21.4, hemoglobin 7.6, hematocrit 23.8, and platelet count 279,000. Sodium 138, potassium 3.6, chlorides 106, CO2 32, BUN 8, creatinine 0.38. Glucose is 84. Calcium 7.4. Chest x-ray is essentially unchanged, and shows diffuse bilateral and severe airspace disease. Progress note dated December 04, 2023. 43-year-old female admitted on November 22. She was admitted with a diagnosis of respiratory failure, bilateral pneumonia, and bilateral empyema. She was intubated for respiratory failure on November 23. The patient remains on the mechanical ventilator. She is on volume assist-control, rate 24, tidal volume 450, FiO2 50%, PEEP of 5. Blood gases show pO2 of 80, pCO2 44, pH is 7.46. The patient remains on propofol at 50 mcg/kg/min, fentanyl at 1.5 mcg/kg/h, and lac tated Ringer's at 100 cc an hour. The patient is currently on vancomycin and Eraxis. Tube feedings are on hold. The patient had tracheostomy and PEG tube placement on December 02. In addition, the patient will have a PICC line placed today. White count 16.7, hemoglobin 7.2, macro 22.3, and platelet count was normal. Sodium 138, potassium 3.6, chlorides 105, CO2 28, BUN 8, creatinine 0.35. Glucose is 79. Calcium is 7.3. Cultures, at multiple sites, revealed methicillin-resistant Staph aureus. Chest x-ray shows a midline tracheostomy. Chest x-ray may be a bit proved. Progress note dated December 05, 2023. 43-year-old female admitted on November 22. She was admitted with a diagnosis of respiratory failure, bilateral pneumonia, and bilateral empyema. The patient was intubated on November 23. She remains on the mechanical ventilator. Currently, settings are volume assist-control, rate 24, tidal volume 450, FiO2 50%, and PEEP of 5. Blood gases show pO2 75, pCO2 49, pH is 7.44. The patient is on propofol at 55 mcg/kg/min, fentanyl at 1.5 mcg/kg/h, and lactated Ringer's at 100 cc an hour. She is also getting vital HP, at 54 cc an hour, which is goal. Current labs include a white count of 16.7, hemoglobin 7.2, hematocrit 22.3, and a platelet count of 277,000. Sodium 138, potassium 3.6, chlorides 105, CO2 28, BUN 8, creatinine 0.35. The glucose is 123. The calcium is 7.3. All previous cultures including sputum Gram stain, and blood cultures, show evidence of methicillin-resistant Staph aureus. The patient continues on vancomycin and Eraxis. Chest x-ray shows a midline tracheostomy tube. The NG tube has been removed. Progress note dated December 06, 2023. 43-year-old female admitted on November 22, for respiratory failure, bilateral pneumonia, bilateral empyema. The patient was intubated for respiratory failure the following day, November 23. She remains on the ventilator. She is on volume assist-control, rate 24, tidal volume 450, FiO2 50%, PEEP of 5. Blood gases show pO2 of 68, pCO2 48, pH is 7.51. She is receiving propofol at 55 mcg/kg/min, saline at KVO, and vital AF at 38 cc an hour, which is goal. She continues on vancomycin, and Eraxis. White count 12.8, hemoglobin 7, hematocrit 23.1, and platelet count 282,000. Sodium 138, potassium 3.2, chlorides 100, CO2 37, BUN 6, creatinine 0.33. Glucose is 126. Albumin 1.9. All her previous cultures are showing evidence of methicillin-resistant Staph aureus. Chest x- ray shows diffuse bilateral airspace disease. Her chest x-ray is basically unchanged. Objective - Vital Signs Vital signs: Vital Signs Temp 98 F 12/06/23 12:00 Pulse 92 12/06/23 13:00 Resp 24 12/06/23 13:00 BP 103/62 12/06/23 13:00 Pulse Ox 94 L 12/06/23 13:00 FiO2 50 12/06/23 12:00 Intake & Output 12/05/23 12/06/23 12/06/23 18:59 06:59 18:59 Intake Total 5344.505 2958.009 1096 Output Total 9030 1904 864 Balance -7541.585 -388.991 232 Weight 126.552 kg 139.48 kg Intake: IV 980 590 670 0.9 @ KVO 30 70 Anidulafungin 100 mg In 100 100 Sodium Chloride 0.9% 100 ml @ 84 mls/hr IVPB DAILY [facility] Rx#:[id number] Lactated Ringers 1,000 ml 380 60 @ 100 mls/hr IV .Q10H [facility] Rx#:[id number] Vancomycin 2,000 mg In 500 500 500 Sodium Chloride 0.9% 500 ml 500 ml @ 167 mls/hr IVPB Q8H [facility] Rx#: [id number] Intake, IV Titration 184.415 363.009 100 Amount fentaNYL (PF). 1,000 mcg 71.352 In Sodium Chloride 0.9% 80 ml @ 0.5 MCG/KG/HR 4. 99 mls/hr IV .Q20H3M [facility] Rx#:[id number] propofoL 1,000 mg In 113.063 363.009 100 Empty Bag 1 bag @ 15 MCG/ KG/MIN 8.981 mls/hr IV . Q11H9M [facility] Rx#:[id number] Tube Feeding 324 472 266 Other 90 60 Output: Chest Tube Drainage 80 64 14 Chest Tube 70 20 10 Chest Tube Right 10 44 4 Urine 8950 1840 850 Other: Voiding Method Indwelling Catheter Indwelling Catheter Indwelling Catheter # Voids 175 # Bowel Movements 1 ABP, PAP, CO, CI - Last Documented Arterial Blood Pressure 106/58 - Exam No acute distress, sedated, with a midline tracheostomy tube. HEENT examination is grossly unremarkable. Neck supple. Full range of motion. No adenopathy thyromegaly or neck vein distention. Cardiovascular examination reveals regular rhythm rate. S1-S2 normal. No S3 or S4. No discernible murmur noted. Heart rate 92 bpm. Lungs reveal bilateral coarse rhonchi. No wheezes or crackles. Breath sounds equal. Saturations are 94 %. Abdomen soft, with bowel sounds. No masses. Abdomen obese. PEG tube noted. Extremities are intact. No cyanosis clubbing or edema. Skin is without rash or lesion. Neurologic examination cannot be assessed at this time. - Labs CBC & Chem 7: 12/06/23 05:30 12/06/23 05:30 Labs: Abnormal Lab Results - Last 24 Hours (Table) 12/05/23 12/06/23 12/06/23 Range/Units 21:25 04:21 05:30 WBC 12.8 H (3.8-10.6) k/uL RBC 2.48 L (3.80-5.40) m/uL Hgb 7.0 L (11.4-16.0) gm/dL Hct 23.1 L (34.0-46.0) % MCHC 30.3 L (31.0-37.0) g/dL Neutrophils # 10.9 H (1.3-7.7) k/uL Lymphocytes # 0.9 L (1.0-4.8) k/uL ABG pH 7.51 H (7.35-7.45) ABG pCO2 48 H (35-45) mmHg ABG pO2 68 L (83-108) mmHg ABG HCO3 38 H (21-25) mmol/L ABG Total CO2 40 H (19-24) mmol/L Potassium 3.1 L (3.5-5.1) mmol/L Carbon Dioxide (22-30) mmol/L BUN (7-17) mg/dL Creatinine (0.52-1.04) mg/dL POC Glucose (mg/dL) (70-110) mg/dL Calcium (8.4-10.2) mg/dL AST (14-36) U/L C-Reactive Protein (<1.0) mg/dL Total Protein (6.3-8.2) g/dL Albumin (3.5-5.0) g/dL 12/06/23 12/06/23 12/06/23 Range/Units 05:30 05:35 11:28 WBC (3.8-10.6) k/uL RBC (3.80-5.40) m/uL Hgb (11.4-16.0) gm/dL Hct (34.0-46.0) % MCHC (31.0-37.0) g/dL Neutrophils # (1.3-7.7) k/uL Lymphocytes # (1.0-4.8) k/uL ABG pH (7.35-7.45) ABG pCO2 (35-45) mmHg ABG pO2 (83-108) mmHg ABG HCO3 (21-25) mmol/L ABG Total CO2 (19-24) mmol/L Potassium 3.2 L (3.5-5.1) mmol/L Carbon Dioxide 37 H (22-30) mmol/L BUN 6 L (7-17) mg/dL Creatinine 0.33 L (0.52-1.04) mg/dL POC Glucose (mg/dL) 128 H 126 H (70-110) mg/dL Calcium 7.2 L (8.4-10.2) mg/dL AST 39 H (14-36) U/L C-Reactive Protein 25.0 H (<1.0) mg/dL Total Protein 4.9 L (6.3-8.2) g/dL Albumin 1.9 L (3.5-5.0) g/dL Assessment and Plan Assessment: Acute hypoxemic respiratory failure, S/P intubation and mechanical ventilation on November 23. Acute bilateral methicillin-resistant Staph aureus pneumonia, with empyema, and hydropneumothorax. S/P tracheostomy and PEG tube placement December 03, 2023. S/P bilateral chest tube placement. Acute sepsis with septic shock. History of polysubstance abuse. History of multiple sclerosis. History of anxiety/depression. History of interstitial cystitis and urinary tract infection. Fibromyalgia. Chronic pain syndrome. History of seizure disorder. Degenerative joint disease. Morbid obesity. Essential hypertension. Plan: Plan dated December 01, 2023. We did speak to Dr. Royal about this patient. He feels that any additional surgical intervention, is not warranted at this time. Labs, x-rays, medications are reviewed. The patient will likely end up with a tracheostomy. Dr. Royal is willing to do it. In addition, we will ask our surgical colleagues, for PEG tube placement. The patient continues on propofol, fentanyl, and lactated Ringer's. She continues on vancomycin for her infection. Labs, x-rays, medic ations are all reviewed. The patient's overall prognosis remains very guarded. We will continue to follow the patient, make recommendations. Plan dated December 02, 2023. The patient remains on lactated Ringer's, propofol, and fentanyl. Tube feedings are on hold, for PEG tube placement today. Tracheostomy will be performed on Friday, by Dr. Royal. Labs, x-rays, and medications are all reviewed. The patient continues on antibiotics for her methicillin-resistant Staph aureus infection. We will continue to follow and make recommendations along the way. The patient continues on vancomycin. The patient's overall prognosis remains very guarded. Plan dated December 03, 2023. The patient had a PEG tube placed today. The patient is seen again in the intensive care unit, room 254. She remains on the ventilator. Blood gases are reasonable, showing a very mild metabolic alkalosis. She remains on propofol at 50 mcg/kg/min, lactated Ringer's at 100 cc an hour, and fentanyl at 1.5 mcg/kg/h . The tracheostomy is to be performed tomorrow. The patient continues on vancomycin, and infectious diseases have just added a Eraxis. Tube feedings are currently on hold. Labs, x-rays, and medications are reviewed. Overall prognosis remains very guarded. No additional recommendations are made. We will continue to follow. Plan dated December 04, 2023. The patient had a tracheostomy and PEG tube placement performed on December 02. She will also have a PICC line placed. Tube feedings are currently still on hold. The patient continues on vancomycin, and Eraxis. The patient is on propofol at 50 mcg/kg/min, and fentanyl 1.5 mcg/kg/h. The patient is also getting lactated Ringer's at 100 cc an hour. Labs, x-rays, and medications are all reviewed. We will continue to follow the patient, make recommendations along the way. Prognosis is certainly guarded at this time. Plan dated December 05, 2023. The patient had her tracheostomy tube and PEG tube placed on December 02. The patient also has had a PICC line placed. Currently, she remains on propofol, fentanyl, and she is receiving tube feedings. Blood gases show pO2 of 75, pCO2 49, pH is 7.44. The patient continues on vancomycin and Eraxis. We are going to discontinue the lactated Ringer's. We are going to give the patient Lasix 60 mg IV push, x 1. In addition, the patient will get Dilaudid 1 mg down the PEG tube every 6 hours, to see if we can get the patient off of IV fentanyl. Additional recommendations and suggestions are forthcoming. We will continue to follow make recommendations. Prognosis is guarded. Chest x-ray has improved somewhat over the last few days. Plan dated December 06, 2023. The patient is seen today in room 254. She remains on the mechanical ventilator. Blood gases have been reviewed. She continues on propofol, at 55 mcg/kg/min. She is getting saline at KVO. She is also getting her tube feedings at goal. She continues on vancomycin, for MRSA, and Eraxis, for suspected fungemia. We will continue to follow make recommendations. Labs, x- rays, and medications are reviewed. We have been able to wean her off the fentanyl. We will continue to follow the patient, and make recommendations along the way. Prognosis is very guarded. Time with Patient: Greater than 30
--- NOTE | 2023-12-06 14:04 | P.PN ---
Subjective Progress Note Date: 12/06/23 43 year old female evaluated today in the intensive care unit. Patient is currently sedated and remains on the mechanical ventilator. Presents from the [facility] with shortness of breath and cough. Patient found to have bilateral pneumothorax and continues currently with right and left sided chest tubes. Chest xray today reveals continued diffuse bilateral airspace disease with extensive pleural parenchymal opacity. Continues on IV vancomycin due to MRSA bacteremia. White blood cell count today 24.2, hgb 7.1. Sodium 136, potassium 3.4. Remains on IV fentanyl, IV versed, IV propofol. Being considered from tracheostomy and PEG tube placement. Remains febrile with T-max 101.4 overnight. Unable to complete a review of systems as patient is currently intubated and sedated on the mechanical ventilator 12/05/2023 Patient is seen and evaluated in room at bedside; remains on the mechanical ventilator. -- Blood gases show pO2 75, pCO2 49, pH is 7.44. Labs include a white count of 16.7, hemoglobin 7.2, hematocrit 22.3, and a platelet count of 277,000. Sodium 138, potassium 3.6, chlorides 105, CO2 28, BUN 8, creatinine 0.35. The glucose is 123. The calcium is 7.3. Gram stain, and blood cultures, show evidence of methicillin-resistant Staph aureus. Chest x-ray shows a midline tracheostomy tube. The NG tube has been removed. The patient continues on vancomycin and Eraxis. 12/06/2023 Patient is seen and evaluated in room at bedside; remains on the ventilator. She is on volume assist-control; patient has been able to be weaned off of fentanyl - Blood gases show pO2 of 68, pCO2 48, pH is 7.51. White count 12.8, hemoglobin 7, hematocrit 23.1, and platelet count 282,000. Sodium 138, potassium 3.2, chlorides 100, CO2 37, BUN 6, creatinine 0.33. Glucose is 126. Albumin 1.9. All her previous cultures are showing evidence of methicillin-resistant Staph aureus. Chest x-ray shows diffuse bilateral airspace disease. Patient remains on vancomycin, and Eraxis for suspected fungemia. Objective - Vital Signs Vital signs: Vital Signs Temp 99.6 F 12/06/23 04:00 Pulse 99 12/06/23 08:00 Resp 14 12/06/23 08:00 BP 103/62 12/06/23 08:00 Pulse Ox 99 12/06/23 08:00 FiO2 50 12/06/23 07:58 Intake & Output 12/05/23 12/06/23 12/06/23 18:59 06:59 18:59 Intake Total 9122.833 6971.009 274 Output Total 9030 1904 335 Balance -7541.585 -388.991 -61 Weight 126.552 kg 139.48 kg Intake: IV 980 590 30 0.9 @ KVO 30 30 Anidulafungin 100 mg In 100 Sodium Chloride 0.9% 100 ml @ 84 mls/hr IVPB DAILY [facility] Rx#:[id number] Lactated Ringers 1,000 ml 380 60 @ 100 mls/hr IV .Q10H [facility] Rx#:[id number] Vancomycin 2,000 mg In 500 500 Sodium Chloride 0.9% 500 ml 500 ml @ 167 mls/hr IVPB Q8H [facility] Rx#: [id number] Intake, IV Titration 184.415 363.009 100 Amount fentaNYL (PF). 1,000 mcg 71.352 In Sodium Chloride 0.9% 80 ml @ 0.5 MCG/KG/HR 4. 99 mls/hr IV .Q20H3M [facility] Rx#:[id number] propofoL 1,000 mg In 113.063 363.009 100 Empty Bag 1 bag @ 15 MCG/ KG/MIN 8.981 mls/hr IV . Q11H9M [facility] Rx#:[id number] Tube Feeding 324 472 114 Other 90 30 Output: Chest Tube Drainage 80 64 0 Chest Tube 70 20 0 Chest Tube Right 10 44 0 Urine 8950 1840 335 Other: Voiding Method Indwelling Catheter Indwelling Catheter Indwelling Catheter # Voids 175 # Bowel Movements 1 ABP, PAP, CO, CI - Last Documented Arterial Blood Pressure 106/58 - Exam GENERAL: The patient is alert and oriented x0, not in any acute distress. Intubated and sedated. Well developed, well nourished. Sedated. Patient will follow commands. FiO2 is 50% with a PEEP of 5 HEENT: Pupils are round and equally reacting to light. EOMI. No scleral icterus. No conjunctival pallor. Normocephalic, atraumatic. No pharyngeal erythema. No thyromegaly. CARDIOVASCULAR: S1 and S2 present. No murmurs, rubs, or gallops. PULMONARY: Chest is clear to auscultation, no wheezing . Coarse rhonchi noted throughout. Faint crackles noted on the right bases ABDOMEN: Soft, obese. Nontender, nondistended, normoactive bowel sounds. No palpable organomegaly. PEG tube noted MUSCULOSKELETAL: No joint swelling or deformity. EXTREMITIES: No cyanosis, clubbing, or pedal edema. NEUROLOGICAL: Unable to asses pt is sedated SKIN: No rashes. - Labs CBC & Chem 7: 12/06/23 05:30 12/06/23 05:30 Labs: Abnormal Lab Results - Last 24 Hours (Table) 12/05/23 12/05/23 12/06/23 Range/Units 11:39 21:25 04:21 WBC (3.8-10.6) k/uL RBC (3.80-5.40) m/uL Hgb (11.4-16.0) gm/dL Hct (34.0-46.0) % MCHC (31.0-37.0) g/dL Neutrophils # (1.3-7.7) k/uL Lymphocytes # (1.0-4.8) k/uL ABG pH 7.51 H (7.35-7.45) ABG pCO2 48 H (35-45) mmHg ABG pO2 68 L (83-108) mmHg ABG HCO3 38 H (21-25) mmol/L ABG Total CO2 40 H (19-24) mmol/L Potassium 3.1 L (3.5-5.1) mmol/L Carbon Dioxide (22-30) mmol/L BUN (7-17) mg/dL Creatinine (0.52-1.04) mg/dL POC Glucose (mg/dL) 137 H (70-110) mg/dL Calcium (8.4-10.2) mg/dL AST (14-36) U/L C-Reactive Protein (<1.0) mg/dL Total Protein (6.3-8.2) g/dL Albumin (3.5-5.0) g/dL 12/06/23 12/06/23 12/06/23 Range/Units 05:30 05:30 05:35 WBC 12.8 H (3.8-10.6) k/uL RBC 2.48 L (3.80-5.40) m/uL Hgb 7.0 L (11.4-16.0) gm/dL Hct 23.1 L (34.0-46.0) % MCHC 30.3 L (31.0-37.0) g/dL Neutrophils # 10.9 H (1.3-7.7) k/uL Lymphocytes # 0.9 L (1.0-4.8) k/uL ABG pH (7.35-7.45) ABG pCO2 (35-45) mmHg ABG pO2 (83-108) mmHg ABG HCO3 (21-25) mmol/L ABG Total CO2 (19-24) mmol/L Potassium 3.2 L (3.5-5.1) mmol/L Carbon Dioxide 37 H (22-30) mmol/L BUN 6 L (7-17) mg/dL Creatinine 0.33 L (0.52-1.04) mg/dL POC Glucose (mg/dL) 128 H (70-110) mg/dL Calcium 7.2 L (8.4-10.2) mg/dL AST 39 H (14-36) U/L C-Reactive Protein 25.0 H (<1.0) mg/dL Total Protein 4.9 L (6.3-8.2) g/dL Albumin 1.9 L (3.5-5.0) g/dL Assessment and Plan Assessment: Acute hypoxic respiratory failure requiring mechanical ventilation secondary to acute bilateral pneumonia, status post PEG and trach placement on 12/03/2023. Acute bilateral pneumonia complicated by bilateral pneumothoraces. Acute bilateral empyema, post bilateral chest tube insertion with purulent mate rial draining from both lungs. MRSA bacteremia Anemia with iron studies revealing underlying iron deficiency. Status post 2 units PRBC on 12/02/2023 Acute septic shock Acute leukocytosis secondary to above Morbid obesity Polysubstance abuse Hyponatremia Elevated LFTs Lactic acidosis GI prophylaxis DVT prophylaxis Lovenox Full Code Plan: Repeat labs in the AM, replace electrolytes per protocol Hemoglobin is currently stable above 7 today and is status post 2 unit of PRBC. No active bleeding noted. Tube feedings currently on hold and has received a PEG tube and will resume feedings to work towards goal at noon per surgery recommendations Patient is status post tracheostomy continues to be on a vent with an FiO2 of 50% and PEEP is 5 Continue telemetry monitoring Continue vent management per ICU Aggressive bronchopulmonary hygiene Blood cultures growing MRSA, repeat blood cultures thus far negative, continue with IV vancomycin per ID. Patient is scheduled to receive a PICC line today Currently weaned off vasopressor support. Continue chest tube management per CT surgery, plan for possible chest tube removal later today. Will follow-up on chest x-ray Social work following and plan is for [facility] [place] once stable. Patient has been released from custody as she was incarcerated prior to this Due to multiple complex medical issues, overall prognosis is extremely poor and guarded at this time
[2023-12-06 17:32] LABS: Glucose,Whole Blood 117 mg/dL (70-110)
[2023-12-06] MEDS ORDERED: Potassium Replacement Protocol 1 EACH MISC MISCELLANE PRN (18:28)
--- NOTE | 2023-12-06 18:34 | P.PN ---
Subjective Progress Note Date: 12/06/23 Patient is in intensive care unit. She is on full ventilatory support with tracheostomy. No new events overnight. Neck: Tracheostomy intact. Abdomen: Obese. Plan: 1. Gastrostomy tube placement for inadequate oral intake and ventilatory status. 2. Wean vent as tolerated. Objective - Vital Signs Vital signs: Vital Signs Temp 98 F 12/06/23 12:00 Pulse 95 12/06/23 18:00 Resp 25 H 12/06/23 18:00 BP 117/64 12/06/23 18:00 Pulse Ox 92 L 12/06/23 18:00 FiO2 50 12/06/23 18:00 Intake & Output 12/05/23 12/06/23 12/06/23 18:59 06:59 18:59 Intake Total 1245.536 2647.009 2152 Output Total 9030 1904 2094 Balance -7541.585 -388.991 58 Weight 126.552 kg 139.48 kg Intake: IV 868 757 7191 0.9 @ KVO 30 130 Anidulafungin 100 mg In 100 100 Sodium Chloride 0.9% 100 ml @ 84 mls/hr IVPB DAILY [facility] Rx#:[id number] Lactated Ringers 1,000 ml 380 60 @ 100 mls/hr IV .Q10H [facility] Rx#:[id number] Vancomycin 2,000 mg In 695 463 6780 Sodium Chloride 0.9% 500 ml 500 ml @ 167 mls/hr IVPB Q8H [facility] Rx#: [id number] Intake, IV Titration 184.415 363.009 300 Amount fentaNYL (PF). 1,000 mcg 71.352 In Sodium Chloride 0.9% 80 ml @ 0.5 MCG/KG/HR 4. 99 mls/hr IV .Q20H3M [facility] Rx#:[id number] propofoL 1,000 mg In 113.063 363.009 300 Empty Bag 1 bag @ 15 MCG/ KG/MIN 8.981 mls/hr IV . Q11H9M [facility] Rx#:[id number] Tube Feeding 324 472 532 Other 90 90 Output: Chest Tube Drainage 80 64 14 Chest Tube 70 20 10 Chest Tube Right 10 44 4 Urine 8950 1840 2080 Other: Voiding Method Indwelling Catheter Indwelling Catheter Indwelling Catheter # Voids 175 # Bowel Movements 1 1 ABP, PAP, CO, CI - Last Documented Arterial Blood Pressure 106/58 - Labs CBC & Chem 7: 12/06/23 05:30 12/06/23 15:20 Labs: Abnormal Lab Results - Last 24 Hours (Table) 12/05/23 12/06/23 12/06/23 Range/Units 21:25 04:21 05:30 WBC 12.8 H (3.8-10.6) k/uL RBC 2.48 L (3.80-5.40) m/uL Hgb 7.0 L (11.4-16.0) gm/dL Hct 23.1 L (34.0-46.0) % MCHC 30.3 L (31.0-37.0) g/dL Neutrophils # 10.9 H (1.3-7.7) k/uL Lymphocytes # 0.9 L (1.0-4.8) k/uL ABG pH 7.51 H (7.35-7.45) ABG pCO2 48 H (35-45) mmHg ABG pO2 68 L (83-108) mmHg ABG HCO3 38 H (21-25) mmol/L ABG Total CO2 40 H (19-24) mmol/L Potassium 3.1 L (3.5-5.1) mmol/L Carbon Dioxide (22-30) mmol/L BUN (7-17) mg/dL Creatinine (0.52-1.04) mg/dL POC Glucose (mg/dL) (70-110) mg/dL Calcium (8.4-10.2) mg/dL AST (14-36) U/L C-Reactive Protein (<1.0) mg/dL Total Protein (6.3-8.2) g/dL Albumin (3.5-5.0) g/dL 12/06/23 12/06/23 12/06/23 Range/Units 05:30 05:35 11:28 WBC (3.8-10.6) k/uL RBC (3.80-5.40) m/uL Hgb (11.4-16.0) gm/dL Hct (34.0-46.0) % MCHC (31.0-37.0) g/dL Neutrophils # (1.3-7.7) k/uL Lymphocytes # (1.0-4.8) k/uL ABG pH (7.35-7.45) ABG pCO2 (35-45) mmHg ABG pO2 (83-108) mmHg ABG HCO3 (21-25) mmol/L ABG Total CO2 (19-24) mmol/L Potassium 3.2 L (3.5-5.1) mmol/L Carbon Dioxide 37 H (22-30) mmol/L BUN 6 L (7-17) mg/dL Creatinine 0.33 L (0.52-1.04) mg/dL POC Glucose (mg/dL) 128 H 126 H (70-110) mg/dL Calcium 7.2 L (8.4-10.2) mg/dL AST 39 H (14-36) U/L C-Reactive Protein 25.0 H (<1.0) mg/dL Total Protein 4.9 L (6.3-8.2) g/dL Albumin 1.9 L (3.5-5.0) g/dL 12/06/23 Range/Units 17:30 WBC (3.8-10.6) k/uL RBC (3.80-5.40) m/uL Hgb (11.4-16.0) gm/dL Hct (34.0-46.0) % MCHC (31.0-37.0) g/dL Neutrophils # (1.3-7.7) k/uL Lymphocytes # (1.0-4.8) k/uL ABG pH (7.35-7.45) ABG pCO2 (35-45) mmHg ABG pO2 (83-108) mmHg ABG HCO3 (21-25) mmol/L ABG Total CO2 (19-24) mmol/L Potassium (3.5-5.1) mmol/L Carbon Dioxide (22-30) mmol/L BUN (7-17) mg/dL Creatinine (0.52-1.04) mg/dL POC Glucose (mg/dL) 117 H (70-110) mg/dL Calcium (8.4-10.2) mg/dL AST (14-36) U/L C-Reactive Protein (<1.0) mg/dL Total Protein (6.3-8.2) g/dL Albumin (3.5-5.0) g/dL
--- NOTE | 2023-12-06 21:32 | P.PN ---
Subjective Progress Note Date: 12/06/23 Principal diagnosis: Reason for follow-up is sepsis MRSA pneumonia bacteremia and empyema Patient is a 43-year-old female past medical history significant for hypertension fibromyalgia asthma reflux seizure disorder currently incarcerated and presented from the local intermediate for evaluation of increasing shortness of breath and chest pain, patient did have evidence of bilateral hydropneumothorax requiring bilateral chest tube placement and did have a positive blood culture with MRSA. Patient is status post tracheostomy completed on 12/03/2023. On today's evaluation that is 12/06/2023, Patient is afebrile patient is [facility], FiO2 of 50% no significant purulent secretions through the ED patient is hemodynamically stable not requiring any p ressor support patient has developed diarrhea requiring fecal management system. Patient white count is down to 12.8 creatinine 0.33 blood culture repeat has been negative Objective - Vital Signs Vital signs: Vital Signs Temp 98 F 12/06/23 12:00 Pulse 98 12/06/23 15:34 Resp 24 12/06/23 15:37 BP 102/60 12/06/23 15:00 Pulse Ox 94 L 12/06/23 15:00 FiO2 50 12/06/23 15:37 Intake & Output 12/05/23 12/06/23 12/06/23 18:59 06:59 18:59 Intake Total 1063.180 5022.009 1388 Output Total 9030 1904 1449 Balance -7541.585 -388.991 -61 Weight 126.552 kg 139.48 kg Intake: IV 980 590 710 0.9 @ KVO 30 110 Anidulafungin 100 mg In 100 100 Sodium Chloride 0.9% 100 ml @ 84 mls/hr IVPB DAILY [facility] Rx#:[id number] Lactated Ringers 1,000 ml 380 60 @ 100 mls/hr IV .Q10H [facility] Rx#:[id number] Vancomycin 2,000 mg In 500 500 500 Sodium Chloride 0.9% 500 ml 500 ml @ 167 mls/hr IVPB Q8H [facility] Rx#: [id number] Intake, IV Titration 184.415 363.009 200 Amount fentaNYL (PF). 1,000 mcg 71.352 In Sodium Chloride 0.9% 80 ml @ 0.5 MCG/KG/HR 4. 99 mls/hr IV .Q20H3M [facility] Rx#:[id number] propofoL 1,000 mg In 113.063 363.009 200 Empty Bag 1 bag @ 15 MCG/ KG/MIN 8.981 mls/hr IV . Q11H9M [facility] Rx#:[id number] Tube Feeding 324 472 418 Other 90 60 Output: Chest Tube Drainage 80 64 14 Chest Tube 70 20 10 Chest Tube Right 10 44 4 Urine 8950 1840 1435 Other: Voiding Method Indwelling Catheter Indwelling Catheter Indwelling Catheter # Voids 175 # Bowel Movements 1 1 ABP, PAP, CO, CI - Last Documented Arterial Blood Pressure 106/58 - Exam GENERAL DESCRIPTION: Middle-aged female intubated through the trach RESPIRATORY SYSTEM: Unlabored breathing , coarse breath sounds bilaterally HEART: S1 S2 regular rate and rhythm , ABDOMEN: Soft , no tenderness EXTREMITIES: No edema feet - Labs CBC & Chem 7: 12/06/23 05:30 12/06/23 15:20 Labs: Abnormal Lab Results - Last 24 Hours (Table) 12/05/23 12/06/23 12/06/23 Range/Units 21:25 04:21 05:30 WBC 12.8 H (3.8-10.6) k/uL RBC 2.48 L (3.80-5.40) m/uL Hgb 7.0 L (11.4-16.0) gm/dL Hct 23.1 L (34.0-46.0) % MCHC 30.3 L (31.0-37.0) g/dL Neutrophils # 10.9 H (1.3-7.7) k/uL Lymphocytes # 0.9 L (1.0-4.8) k/uL ABG pH 7.51 H (7.35-7.45) ABG pCO2 48 H (35-45) mmHg ABG pO2 68 L (83-108) mmHg ABG HCO3 38 H (21-25) mmol/L ABG Total CO2 40 H (19-24) mmol/L Potassium 3.1 L (3.5-5.1) mmol/L Carbon Dioxide (22-30) mmol/L BUN (7-17) mg/dL Creatinine (0.52-1.04) mg/dL POC Glucose (mg/dL) (70-110) mg/dL Calcium (8.4-10.2) mg/dL AST (14-36) U/L C-Reactive Protein (<1.0) mg/dL Total Protein (6.3-8.2) g/dL Albumin (3.5-5.0) g/dL 12/06/23 12/06/23 12/06/23 Range/Units 05:30 05:35 11:28 WBC (3.8-10.6) k/uL RBC (3.80-5.40) m/uL Hgb (11.4-16.0) gm/dL Hct (34.0-46.0) % MCHC (31.0-37.0) g/dL Neutrophils # (1.3-7.7) k/uL Lymphocytes # (1.0-4.8) k/uL ABG pH (7.35-7.45) ABG pCO2 (35-45) mmHg ABG pO2 (83-108) mmHg ABG HCO3 (21-25) mmol/L ABG Total CO2 (19-24) mmol/L Potassium 3.2 L (3.5-5.1) mmol/L Carbon Dioxide 37 H (22-30) mmol/L BUN 6 L (7-17) mg/dL Creatinine 0.33 L (0.52-1.04) mg/dL POC Glucose (mg/dL) 128 H 126 H (70-110) mg/dL Calcium 7.2 L (8.4-10.2) mg/dL AST 39 H (14-36) U/L C-Reactive Protein 25.0 H (<1.0) mg/dL Total Protein 4.9 L (6.3-8.2) g/dL Albumin 1.9 L (3.5-5.0) g/dL Assessment and Plan (1) Empyema Current Visit: Yes Status: Acute Code(s): J86.9 - PYOTHORAX WITHOUT FISTULA SNOMED Code(s): 630299526 (2) MRSA bacteremia Current Visit: Yes Status: Acute Code(s): R78.81 - BACTEREMIA; B95.62 - METHICILLIN RESIS STAPH INFCT CAUSING DISEASES [facility] SNOMED Code(s): 59093403700400792 (3) Pneumonia Current Visit: Yes Status: Acute Code(s): J18.9 - PNEUMONIA, UNSPECIFIED ORGANISM SNOMED Code(s): 749201021 (4) Pneumothorax Current Visit: Yes Status: Acute Code(s): J93.9 - PNEUMOTHORAX, UNSPECIFIED SNOMED Code(s): 70155632 Plan: 1patient presented to hospital with sepsis in this patient who did have a fever tachycardia elevated white count source is pulmonary in this patient noted evidence of bilateral pneumothorax and effusion with question of complicated pneumonia/empyema keeping in mind the patient is from local care home will need to cover for resistant gram-positive such as MRSA and gram-negative pathogen 2-patient blood sputum and pleural fluid culture with MRSA 3-Patient did clear her bacteremia as the blood culture from 11/26/2023 as well as 11/27/2023 has been negative patient did have a PICC line placement on 12/04/2023 4-patient did have improvement in her fever pattern and white count is trending down and is down to 12,000 we will continue patient on vancomycin pharmacy to dose 5-patient with oropharyngeal candidiasis patient to continue ed with Eraxis 6-significant diarrhea antibiotic associated rule out C. difficile colitis, we will check a stool for C. difficile and treat if positive Dictation was produced using [employer] dictation software. please excuse any grammatical, word or spelling errors. Time with Patient: Less than 30
[2023-12-06 23:53] LABS: Glucose,Whole Blood 121 mg/dL (70-110)
[2023-12-07 05:39] LABS: African American GFR (CKD) >90 (>60 ml/min/1.73 sqM); Anion Gap 0 mmol/L; Blood Urea Nitrogen 7 mg/dL (7-17); Calcium 7.4 mg/dL (8.4-10.2); Carbon Dioxide 37 mmol/L (22-30); Chloride 102 mmol/L (98-107); Glucose 104 mg/dL (74-99); Non-African American GFR(CKD) >90 (>60 ml/min/1.73 sqM); Potassium 3.4 mmol/L (3.5-5.1); Sodium 139 mmol/L (137-145)
[2023-12-07 05:47] LABS: ABG HCO3 37 mmol/L (21-25); ABG Oxygen Saturation 96.5 % (94-97); ABG PCO2 47 mmHg (35-45); ABG PH 7.51 (7.35-7.45); ABG PO2 74 mmHg (83-108); ABG TCO2 39 mmol/L (19-24); Allen Test Performed? Yes
[2023-12-07 05:53] LABS: Basophils % (A) 0 %; Eosinophils # (A) 0.5 k/uL (0-0.7); Eosinophils % (A) 4 %; HCT 22.4 % (34.0-46.0); HGB 7.1 gm/dL (11.4-16.0); Hypochromasia Slight; Lymphocytes % (A) 8 %; MCH 29.3 pg (25.0-35.0); MCHC 31.6 g/dL (31.0-37.0); MCV 92.7 fL (80.0-100.0); Mean Platelet Volume 9.3; Monocytes # (A) 0.3 k/uL (0-1.0); Monocytes % (A) 3 %; Neutrophils # (A) 10.4 k/uL (1.3-7.7); Neutrophils % (A) 83 %; Platelet Count 278 k/uL (150-450); RBC 2.41 m/uL (3.80-5.40); RDW 14.7 % (11.5-15.5); WBC 12.5 k/uL (3.8-10.6)
[2023-12-07 05:58] LABS: Glucose,Whole Blood 119 mg/dL (70-110)
[2023-12-07] MEDS: POTASSIUM BICARBONATE/CIT AC 20 MEQ TABLET.EFF NG-TUBE SCH ×3 (08:37→23:45)
[2023-12-07] MEDS: FUROSEMIDE 10 MG/ML 10 ML VIAL IV STA (09:20)
[2023-12-07] MEDS: VANCOMYCIN TROUGH DUE 1 EACH MISC MISCELLANE ONE (09:20)
--- NOTE | 2023-12-07 09:41 | P.PN ---
Subjective Progress Note Date: 12/07/23 Principal diagnosis: Acute hypoxic respiratory failure requiring mechanical ventilation, bilateral hydropneumothoraces, empyema, status post bilateral chest tube insertion, septic shock. Past medical history significant for MS, obesity, migraines, seizures, fibromyalgia, hypertension, asthma, anxiety/depression/bipolar disorder, polysubstance abuse. POD #4 placement of tracheostomy and PEG tube by Dr. Johnson. POD #3 placement of peripherally inserted central catheter under fluoroscopic guidance using chest x-rays by Dr. Beth. The patient was seen and examined in follow-up today December 07, 2023 at her bedside in the intensive care unit. She remains with mechanical ventilator support, tracheostomy tube is midline and intact, current mechanical ventilator settings are assist-control 24, TV 450, FiO2 50% and PEEP of 5. Oxygen saturations on current mechanical ventilator settings is 95%. She remains sedated on propofol drip at 55 mcg/kg/min, opens her eyes with verbal stimuli and is moving all 4 extremities. PEG tube in place with tube feeding infusing at goal rate of 38 mL/h. Left and right pleural chest tubes remain in place to low continuous wall suction -20 cm H2O. No air leak is present. Right pleural chest tube drained 30 mL output in the last 24 hours. Left pleural chest tube drained 50 mL output in the last 24 hours. Tmax temperature in the last 24 hours was 101.2 F. Laboratory results reviewed, WBC count today is 12.5. Patient does have MRSA in her blood, pleural fluid, sputum and nasal swab. Blood cultures from November 25 and November 26 are negative. She remains on vancomycin, and Eraxis for antibiotic coverage managed by infectious disease. She remains hemodynamically stable and is currently on no inotropic or pressor support. Chest x-ray results reviewed. Objective - Vital Signs Vital signs: Vital Signs Temp 99.9 F H 12/07/23 08:00 Pulse 93 12/07/23 09:00 Resp 26 H 12/07/23 09:00 BP 109/63 12/07/23 09:00 Pulse Ox 94 L 12/07/23 09:00 FiO2 50 12/07/23 08:00 Intake & Output 12/06/23 12/07/23 12/07/23 18:59 06:59 18:59 Intake Total 2152 1526.741 291.267 Output Total 2094 1158 360 Balance 58 368.741 -68.733 Weight 139.706 kg Intake: IV 1230 590 30 0.9 @ KVO 130 90 30 Anidulafungin 100 mg In 100 Sodium Chloride 0.9% 100 ml @ 84 mls/hr IVPB DAILY [facility] Rx#:[id number] Vancomycin 2,000 mg In 1000 500 Sodium Chloride 0.9% 500 ml 500 ml @ 167 mls/hr IVPB Q8H [facility] Rx#: [id number] Intake, IV Titration 300 360.741 87.267 Amount propofoL 1,000 mg In 300 360.741 87.267 Empty Bag 1 bag @ 15 MCG/ KG/MIN 8.981 mls/hr IV . Q11H9M [facility] Rx#:[id number] Tube Feeding 532 456 114 Other 90 120 60 Output: Chest Tube Drainage 14 58 Chest Tube 10 40 Chest Tube Right 4 18 Urine 2080 1100 360 Other: Voiding Method Indwelling Catheter Indwelling Catheter # Bowel Movements 1 ABP, PAP, CO, CI - Last Documented Arterial Blood Pressure 106/58 - Exam CONSTITUTIONAL: Currently sedated with propofol, mechanical ventilation, laying in bed in the intensive care unit RESPIRATORY: Lungs sounds diminished bilaterally. Respirations symmetrical, nonlabored with mechanical ventilator support, current settings assist-control mode, FiO2 50%, tidal volume 450, PEEP 5, respiratory rate 24. CARDIOVASCULAR: S1, S2 present. Regular rate and rhythm, bedside telemetry showing normal sinus rhythm heart rate 98 bpm. Palpable peripheral pulses bilaterally. Generalized trace edema present. No calf pain or tenderness noted. SCDs present. GASTROINTESTINAL: Abdomen soft, nontender, nondistended. Active bowel sounds present 4 quadrants. PEG tube present, currently n.p.o. GENITOURINARY: Beth present draining clear, yellow urine. Output 715 mL in the last 8 hours. INTEGUMENTARY: Skin is warm and dry, no clubbing or cyanosis is present. Dressings to her bilateral chest tube insertion sites clean dry and intact. NEUROLOGIC: Sedated on mechanical ventilation, unable to accurately assess at this time. INVASIVE LINES AND TUBES: Left/right pleural chest tubes present and connected to wall suction, no air leaks present this morning. Left pleural chest tube with 50 mL thin serosanguineous drainage in the last 24 hours. Right pleural chest tube with 30 mL in the last 24 hours. Right arm PICC line. - Allied health notes Allied health notes reviewed: nursing - Labs CBC & Chem 7: 12/07/23 05:11 12/07/23 05:11 Labs: Abnormal Lab Results - Last 24 Hours (Table) 12/06/23 12/06/23 12/06/23 Range/Units 11:28 17:30 23:51 WBC (3.8-10.6) k/uL RBC (3.80-5.40) m/uL Hgb (11.4-16.0) gm/dL Hct (34.0-46.0) % Neutrophils # (1.3-7.7) k/uL ABG pH (7.35-7.45) ABG pCO2 (35-45) mmHg ABG pO2 (83-108) mmHg ABG HCO3 (21-25) mmol/L ABG Total CO2 (19-24) mmol/L Potassium (3.5-5.1) mmol/L Carbon Dioxide (22-30) mmol/L Creatinine (0.52-1.04) mg/dL Glucose (74-99) mg/dL POC Glucose (mg/dL) 126 H 117 H 121 H (70-110) mg/dL Calcium (8.4-10.2) mg/dL 12/07/23 12/07/23 12/07/23 Range/Units 05:11 05:11 05:45 WBC 12.5 H (3.8-10.6) k/uL RBC 2.41 L (3.80-5.40) m/uL Hgb 7.1 L (11.4-16.0) gm/dL Hct 22.4 L (34.0-46.0) % Neutrophils # 10.4 H (1.3-7.7) k/uL ABG pH 7.51 H (7.35-7.45) ABG pCO2 47 H (35-45) mmHg ABG pO2 74 L (83-108) mmHg ABG HCO3 37 H (21-25) mmol/L ABG Total CO2 39 H (19-24) mmol/L Potassium 3.4 L (3.5-5.1) mmol/L Carbon Dioxide 37 H (22-30) mmol/L Creatinine 0.37 L (0.52-1.04) mg/dL Glucose 104 H (74-99) mg/dL POC Glucose (mg/dL) (70-110) mg/dL Calcium 7.4 L (8.4-10.2) mg/dL 12/07/23 Range/Units 05:57 WBC (3.8-10.6) k/uL RBC (3.80-5.40) m/uL Hgb (11.4-16.0) gm/dL Hct (34.0-46.0) % Neutrophils # (1.3-7.7) k/uL ABG pH (7.35-7.45) ABG pCO2 (35-45) mmHg ABG pO2 (83-108) mmHg ABG HCO3 (21-25) mmol/L ABG Total CO2 (19-24) mmol/L Potassium (3.5-5.1) mmol/L Carbon Dioxide (22-30) mmol/L Creatinine (0.52-1.04) mg/dL Glucose (74-99) mg/dL POC Glucose (mg/dL) 119 H (70-110) mg/dL Calcium (8.4-10.2) mg/dL - Imaging and Cardiology Chest x-ray: report reviewed, image reviewed Assessment and Plan Assessment: Acute hypoxic respiratory failure requiring mechanical ventilation, status post trach and PEG placement Bilateral hydropneumothoraces, empyema, status post bilateral chest tube i nsertion Septic shock, requiring IV vasopressors, MRSA in her blood, pleural fluid, sputum and nasal swab, currently on vancomycin and Eraxis for antibiotic coverage Chest pain, shortness of breath present on admission secondary to above History of MS Obesity Migraines Seizures Fibromyalgia Hypertension Asthma Anxiety/depression/bipolar disorder Polysubstance abuse Plan: Leave left and right pleural chest tubes, continue to record output. Ventilator management per community educator. Antibiotics per infectious disease. Medical management of other comorbidities per internal medicine, pulmonology, ID. More recommendations to follow based on patient's clinical course. Time with Patient: Greater than 30
[2023-12-07 11:31] LABS: Glucose,Whole Blood 119 mg/dL (70-110)
--- NOTE | 2023-12-07 11:42 | XR ---
EXAM: XR chest 1V portable CLINICAL INDICATION:Female, 43 years old with history of Bilateral hydropneumothoraces; [facility] COMPARISON: 12/06/2023 and 12/05/2023 chest x-rays and 12/05/2023 CT chest TECHNIQUE: Chest single view. FINDINGS: Tracheostomy cannula and bilateral chest tubes unchanged. Bilateral PICC or central lines with their tips over the SVC. Monitor leads and other extrinsic densities over the chest. Cardiomediastinal margins are obscured. Extensive opacities throughout both lungs appear stable to slightly worsened. The known bilateral hyd ropneumothoraces were better seen on prior CT, without significant interval radiographic change. Osseous structures grossly unchanged without acute pathology evident. IMPRESSION: 1. Lines and tubes in place, as above. 2. Extensive opacities throughout both lungs appear stable to slightly worsened. 3. The known bilateral hydropneumothoraces were better seen on prior CT, without significant interva l radiographic change.
--- NOTE | 2023-12-07 11:54 | P.PN ---
Subjective Progress Note Date: 12/07/23 Principal diagnosis: Respiratory failure. Reevaluate today on11/27/23, remains in the ICU, intubated and mechanically ventilated, on assist-control rate of 42 tidal volume 450 FiO2 60% PEEP of 5 ABG showed a pO2 of 72 pCO2 43 pH of 7.49. Patient remains fully sedated she is on fentanyl 1.5 mcg/kg/min she is also on Versed 3 mg/h. Propofol at 50 mcg/kg/min. Patient remains hemodynamically unstable requiring norepinephrine at 0.11 mcg/kg/min she is on vital HP at 16 mL/h. She is also on LR at 150 cc/h. Today I did not make any changes in her ventilator settings. Her chest x-ray is basically about the same continues to show right-sided pneumothorax but I do not see an air leak today on the right side but she does have an air leak on the left side and continues to have significant purulent drainage from the chest tube on the left side. 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 Not much of a change overnight, patient remains critically ill. Continues to have leukocytosis with WBC count of 28.2 hemoglobin 8.5 basic metabolic profile is normal and renal profile is normal Reevaluate today on 11/28/2023, remains in the ICU intubated and mechanically ventilated. Patient is on assist-control rate of 52 tidal volume 450 FiO2 60% PEEP of 5 ABG showed a pO2 of 73 pCO2 37 pH of 7.52 hence FiO2 was cut down to 55% and rate to cut down to 28. Patient continues to have bilateral chest tubes, the left-sided chest tube has ongoing continuous leak, right-sided chest tube has intermittent airleak. However the patient is maintaining her adequate tidal volumes which are about 450. Patient remains on propofol at 50 mcg/kg/min Versed 3 mg/h Fentanyl 1.5 mcg/kg/h patient is also receiving norepinephrine at 0.08 mcg/kg/min. Her IV fluid which is LR Down to 100 cc/h. She is on vital HP patient had a Tmax of 102.9 yesterday, cultures of blood and pleural effusion are positive for MRSA, patient remains on vancomycin. If the patient continues to have positive blood cultures in the next couple of days, may have to consider OSIRIS. The cultures from the are pending. Chest x-ray continues to show significant hydropneumothorax on the left side, and she has mostly hydrothorax on the right side. I could not appreciate a pneumothorax on the right side labs today showed leukocytosis with WBC of 23.1 hemoglobin 7.4, basic metabolic profile is normal renal profile is normal today on 11/29/2023 patient remains intubated and mechanically ventilated, she is on assist-control rate of 28 tidal volume 450 FiO2 55% PEEP of 5 ABG showed a pO2 of 94 pCO2 34 pH of 7.53, hence her vent settings were changed to cut down her rate to 26 cut down FiO2 to 50% And PEEP at 5. Patient's hemoglobin is low today at 6.8, and she will receive a unit of packed RBCs. Patient is being treated for MRSA pneumonia, bacteremia, and empyema. Remains on propofol at 30 mcg/kg/min Fentanyl 1 mcg/kg/h she is also on Versed which I will discontinue today 2 mg/h. Norepinephrine 0.02 mcg/kg/min and IV fluid 0.9 normal saline at 100 cc/h. Chest x-ray continues to show left-sided loculated pneumothorax, and she continues to have ongoing airleak from the left-sided chest tube. The right-sided chest tube seems to be occluded, hence we will ask thoracic surgery to flush the chest tube, and the patient has what seems to be a pleural effusion on the right side, drainage is serosanguineous. Considering the overall picture, the patient is again not quite ready for any weaning, however over the next couple of days as we cut down on sedation, may start waking the patient up and give the patient weaning trials if possible. At this point she remains quite ill, and I doubt if she will tolerate any form of weaning her FiO2 just dropped down from 55 to 50%., Continues to have leukocytosis but improving WBC count is 24.7 hemoglobin 6.8 and she will receive a unit of packed RBCs. Basic metabolic profile is normal renal profile is normal and urine output is excellent Patient was reexamined today on 11/30/2023, remains intubated and mechanically ventilated, remains on vancomycin, patient is on assist-control rate of 24 tidal volume 450 FiO2 50% and PEEP of 5 ABG showed a pO2 of 78 pCO2 48 pH of 7.40 hence no changes were made in vent settings. Chest x-ray showed significant bilateral airspace disease loculated left-sided pneumothorax no clear-cut evidence of pneumothorax on the right. Chest x-ray is also suggestive of interstitial edema/infiltrates, hence the patient will be given a trial of diuresis. Hemoglobin is down to 7.4, patient did receive 1 unit of packed RBCs: WBC count remains high at 25.8 but steadily improving. Patient continues to have air leak in the left side chest tube, but no airleak noted in the right- sided chest tube. Drips bautista the patient is on fentanyl at 1 mcg/kg/h IV fluid LR at 100 cc/h norepinephrine at 0.04 mcg/kg/min propofol at 30 mcg/kg/min vital HP at 44/44. Patient did receive 20 mg of Lasix earlier while on rounds. Her arterial line went and nonfunctional, hence a new arterial line was placed in the left radial artery. Father called about his daughter, and I discussed her condition over the phone with her father and updated him on the situation. He is aware that she is critically ill, and at this point prognosis is relatively guarded. Progress note dated December 01, 2023. This is a 43-year-old female who was admitted on November 22. The patient came in with bilateral pneumonia and empyema. She was intubated for respiratory failure on November 23. Sampling has revealed evidence of methicillin-resistant Staph aureus. She remains on the ventilator.Ventilator settings include volume assist-control, rate 24, tidal volume 450, FiO2 50%, PEEP of 5. Blood gases show pO2 100, pCO2 of 44, pH is 7.47. The patient remains on propofol at 30 mcg/kg/min, fentanyl at 1 mcg/kg/h, lactated Ringer's at 100 cc an hour, and vital AF at 44 cc an hour, which is goal. The patient does continue on vancomycin for her MRSA infection. Current laboratory data includes a white count 24.2, hemoglobin 7.1, hematocrit 22.9, and platelet count 242,000. Sodium 136, potassium 3.2, chlorides 104, CO2 31, BUN 10, creatinine 0.39. Glucose is 111. Calcium is 7.1. Nasal swabs, sputum, blood, wound culture, and pleural fluid, are all consistent with methicillin-resistant Staph aureus. Chest x-ray shows continued bilateral diffuse airspace disease. Bilateral pleural catheters are seen. Progress note dated December 02 2023. This is a 43-year-old female who was admitted on November 22. The patient came in with bilateral pneumonia and empyema. She was intubated for respiratory failure on November 23. Sampling has revealed evidence of methicillin-resistant Staph aureus. She remains on the ventilator. Currently, she is on volume assist- control, rate 24, tidal volume 450, FiO2 50%, PEEP of 5. Blood gases show pO2 73, pCO2 46, pH is 7.47. The patient is getting lactated Ringer's at 100 cc an hour, propofol at 35 mcg/kg/min, and fentanyl at 2 mcg/kg/h. Her tube feedings are on hold, as the patient is to receive a PEG tube today. The patient will have a tracheostomy performed on Friday. White count is 20.4, hemoglobin 6.4, hematocrit 20.1, and platelet count was normal. Sodium 138, potassium 3.7, chlorides 105, CO2 31, BUN 10, creatinine 0.42. Glucose is 95. Calcium 7.1, magnesium 2.0. Nasal swab, pleural fluid, sputum, and blood cultures, are all positive for methicillin-resistant Staph aureus. Chest x-ray shows diffuse bilateral infiltrates. Progress note dated December 03, 2023. 43-year-old female who was admitted on November 22. She was admitted with a diagnosis of bilateral pneumonia, and empyema. She was intubated for respiratory failure on November 23. Thus far, sampling, has revealed evidence of methicillin-resistant Staph aureus. She remains on the ventilator. Settings include volume assist-control, rate 24, tidal volume 450, FiO2 50%, PEEP of 5. Blood gases show pO2 of 81, pCO2 of 44, pH is 7.47. She remains on propofol at 50 mcg/kg/min, lactated Ringer's at 100 cc an hour, and fentanyl at 1.5 mcg/kg/h. She is going to have a PEG tube placed today, and hopefully a tracheostomy performed tomorrow. She continues on vancomycin, and infectious disease doctor has added Eraxis. In addition, the patient has received a total of 3 units of packed red blood cells. White count 21.4, hemoglobin 7.6, hematocrit 23.8, and platelet count 279,000. Sodium 138, potassium 3.6, chlorides 106, CO2 32, BUN 8, creatinine 0.38. Glucose is 84. Calcium 7.4. Chest x-ray is essentially unchanged, and shows diffuse bilateral and severe airspace disease. Progress note dated December 04, 2023. 43-year-old female admitted on November 22. She was admitted with a diagnosis of respiratory failure, bilateral pneumonia, and bilateral empyema. She was intubated for respiratory failure on November 23. The patient remains on the mechanical ventilator. She is on volume assist-control, rate 24, tidal volume 450, FiO2 50%, PEEP of 5. Blood gases show pO2 of 80, pCO2 44, pH is 7.46. The patient remains on propofol at 50 mcg/kg/min, fentanyl at 1.5 mcg/kg/h, and lac tated Ringer's at 100 cc an hour. The patient is currently on vancomycin and Eraxis. Tube feedings are on hold. The patient had tracheostomy and PEG tube placement on December 02. In addition, the patient will have a PICC line placed today. White count 16.7, hemoglobin 7.2, macro 22.3, and platelet count was normal. Sodium 138, potassium 3.6, chlorides 105, CO2 28, BUN 8, creatinine 0.35. Glucose is 79. Calcium is 7.3. Cultures, at multiple sites, revealed methicillin-resistant Staph aureus. Chest x-ray shows a midline tracheostomy. Chest x-ray may be a bit proved. Progress note dated December 05, 2023. 43-year-old female admitted on November 22. She was admitted with a diagnosis of respiratory failure, bilateral pneumonia, and bilateral empyema. The patient was intubated on November 23. She remains on the mechanical ventilator. Currently, settings are volume assist-control, rate 24, tidal volume 450, FiO2 50%, and PEEP of 5. Blood gases show pO2 75, pCO2 49, pH is 7.44. The patient is on propofol at 55 mcg/kg/min, fentanyl at 1.5 mcg/kg/h, and lactated Ringer's at 100 cc an hour. She is also getting vital HP, at 54 cc an hour, which is goal. Current labs include a white count of 16.7, hemoglobin 7.2, hematocrit 22.3, and a platelet count of 277,000. Sodium 138, potassium 3.6, chlorides 105, CO2 28, BUN 8, creatinine 0.35. The glucose is 123. The calcium is 7.3. All previous cultures including sputum Gram stain, and blood cultures, show evidence of methicillin-resistant Staph aureus. The patient continues on vancomycin and Eraxis. Chest x-ray shows a midline tracheostomy tube. The NG tube has been removed. Progress note dated December 06, 2023. 43-year-old female admitted on November 22, for respiratory failure, bilateral pneumonia, bilateral empyema. The patient was intubated for respiratory failure the following day, November 23. She remains on the ventilator. She is on volume assist-control, rate 24, tidal volume 450, FiO2 50%, PEEP of 5. Blood gases show pO2 of 68, pCO2 48, pH is 7.51. She is receiving propofol at 55 mcg/kg/min, saline at KVO, and vital AF at 38 cc an hour, which is goal. She continues on vancomycin, and Eraxis. White count 12.8, hemoglobin 7, hematocrit 23.1, and platelet count 282,000. Sodium 138, potassium 3.2, chlorides 100, CO2 37, BUN 6, creatinine 0.33. Glucose is 126. Albumin 1.9. All her previous cultures are showing evidence of methicillin-resistant Staph aureus. Chest x- ray shows diffuse bilateral airspace disease. Her chest x-ray is basically unchanged. Progress note dated December 07, 2023. 43-year-old female admitted on November 22 for respiratory failure, bilateral pneumonia, and bilateral empyema. The patient was intubated for respiratory failure on November 23. She remains on the ventilator. She is on volume assist- control, rate 24, tidal volume 450, FiO2 50%, PEEP of 5. Blood gases show pO2 74, pCO2 47, pH is 7.51. The patient is getting lactated Ringer's at 20 cc an hour, vital high-protein at 38 cc an hour, which is goal, and propofol at 55 mcg/kg/min. Today, the patient will get Lasix 60 mg IV push, and she continues on vancomycin and Eraxis. Bilateral chest tubes are still in place. White count 12.5, hemoglobin 7.1, hematocrit 22.4, platelet count was normal. Sodium 139, potassium 3.4, chlorides 102, CO2 37, BUN 7, creatinine 0.37. Glucose 119. Cultures all along have been positive for methicillin-resistant Staph aureus. Chest x-ray shows bilateral opacities, which are quite extensive. Objective - Vital Signs Vital signs: Vital Signs Temp 99.9 F H 12/07/23 08:00 Pulse 94 12/07/23 11:27 Resp 26 H 12/07/23 09:00 BP 109/63 12/07/23 09:00 Pulse Ox 94 L 12/07/23 09:00 FiO2 50 12/07/23 11:17 Intake & Output 12/06/23 12/07/23 12/07/23 18:59 06:59 18:59 Intake Total 2152 1526.741 390.609 Output Total 2094 1158 360 Balance 58 368.741 30.609 Weight 139.706 kg Intake: IV 1230 590 30 0.9 @ KVO 130 90 30 Anidulafungin 100 mg In 100 Sodium Chloride 0.9% 100 ml @ 84 mls/hr IVPB DAILY [facility] Rx#:[id number] Vancomycin 2,000 mg In 1000 500 Sodium Chloride 0.9% 500 ml 500 ml @ 167 mls/hr IVPB Q8H [facility] Rx#: [id number] Intake, IV Titration 300 360.741 186.609 Amount propofoL 1,000 mg In 300 360.741 186.609 Empty Bag 1 bag @ 15 MCG/ KG/MIN 8.981 mls/hr IV . [id number] [facility] Rx#:[id number] Tube Feeding 532 456 114 Other 90 120 60 Output: Chest Tube Drainage 14 58 Chest Tube 10 40 Chest Tube Right 4 18 Urine 2080 1100 360 Other: Voiding Method Indwelling Catheter Indwelling Catheter Indwelling Catheter # Bowel Movements 1 ABP, PAP, CO, CI - Last Documented Arterial Blood Pressure 106/58 - Exam No acute distress, sedated, with a midline tracheostomy tube. HEENT examination is grossly unremarkable. Neck supple. Full range of motion. No adenopathy thyromegaly or neck vein distention. Cardiovascular examination reveals regular rhythm rate. S1-S2 normal. No S3 or S4. No discernible murmur noted. Heart rate 94 bpm. Lungs reveal bilateral coarse rhonchi. No wheezes or crackles. Breath sounds equal. Saturations are 94 %. Abdomen soft, with bowel sounds. No masses. Abdomen obese. PEG tube noted. Extremities are intact. No cyanosis clubbing or edema. Skin is without rash or lesion. Neurologic examination cannot be assessed at this time. - Labs CBC & Chem 7: 12/07/23 05:11 12/07/23 05:11 Labs: Abnormal Lab Results - Last 24 Hours (Table) 12/06/23 12/06/23 12/07/23 Range/Units 17:30 23:51 05:11 WBC 12.5 H (3.8-10.6) k/uL RBC 2.41 L (3.80-5.40) m/uL Hgb 7.1 L (11.4-16.0) gm/dL Hct 22.4 L (34.0-46.0) % Neutrophils # 10.4 H (1.3-7.7) k/uL ABG pH (7.35-7.45) ABG pCO2 (35-45) mmHg ABG pO2 (83-108) mmHg ABG HCO3 (21-25) mmol/L ABG Total CO2 (19-24) mmol/L Potassium (3.5-5.1) mmol/L Carbon Dioxide (22-30) mmol/L Creatinine (0.52-1.04) mg/dL Glucose (74-99) mg/dL POC Glucose (mg/dL) 117 H 121 H (70-110) mg/dL Calcium (8.4-10.2) mg/dL 12/07/23 12/07/23 12/07/23 Range/Units 05:11 05:45 05:57 WBC (3.8-10.6) k/uL RBC (3.80-5.40) m/uL Hgb (11.4-16.0) gm/dL Hct (34.0-46.0) % Neutrophils # (1.3-7.7) k/uL ABG pH 7.51 H (7.35-7.45) ABG pCO2 47 H (35-45) mmHg ABG pO2 74 L (83-108) mmHg ABG HCO3 37 H (21-25) mmol/L ABG Total CO2 39 H (19-24) mmol/L Potassium 3.4 L (3.5-5.1) mmol/L Carbon Dioxide 37 H (22-30) mmol/L Creatinine 0.37 L (0.52-1.04) mg/dL Glucose 104 H (74-99) mg/dL POC Glucose (mg/dL) 119 H (70-110) mg/dL Calcium 7.4 L (8.4-10.2) mg/dL 12/07/23 Range/Units 11:30 WBC (3.8-10.6) k/uL RBC (3.80-5.40) m/uL Hgb (11.4-16.0) gm/dL Hct (34.0-46.0) % Neutrophils # (1.3-7.7) k/uL ABG pH (7.35-7.45) ABG pCO2 (35-45) mmHg ABG pO2 (83-108) mmHg ABG HCO3 (21-25) mmol/L ABG Total CO2 (19-24) mmol/L Potassium (3.5-5.1) mmol/L Carbon Dioxide (22-30) mmol/L Creatinine (0.52-1.04) mg/dL Glucose (74-99) mg/dL POC Glucose (mg/dL) 119 H (70-110) mg/dL Calcium (8.4-10.2) mg/dL Assessment and Plan Assessment: Acute hypoxemic respiratory failure, S/P intubation and mechanical ventilation on November 23. Acute bilateral methicillin-resistant Staph aureus pneumonia, with empyema, and hydropneumothorax. S/P tracheostomy and PEG tube placement December 03, 2023. S/P bilateral chest tube placement. Acute sepsis with septic shock. History of polysubstance abuse. History of multiple sclerosis. History of anxiety/depression. History of interstitial cystitis and urinary tract infection. Fibromyalgia. Chronic pain syndrome. History of seizure disorder. Degenerative joint disease. Morbid obesity. Essential hypertension. Plan: Plan dated December 01, 2023. We did speak to Dr. Royal about this patient. He feels that any additional surgical intervention, is not warranted at this time. Labs, x-rays, medications are reviewed. The patient will likely end up with a tracheostomy. Dr. Royal is willing to do it. In addition, we will ask our surgical colleagues, for PEG tube placement. The patient continues on propofol, fentanyl, and lactated Ringer's. She continues on vancomycin for her infection. Labs, x-rays, medications are all reviewed. The patient's overall prognosis remains very guarded. We will continue to follow the patient, make recommendations. Plan dated December 02, 2023. The patient remains on lactated Ringer's, propofol, and fentanyl. Tube feedings are on hold, for PEG tube placement today. Tracheostomy will be performed on Friday, by Dr. Royal. Labs, x-rays, and medications are all reviewed. The patient continues on antibiotics for her methicillin-resistant Staph aureus infection. We will continue to follow and make recommendations along the way. The patient continues on vancomycin. The patient's overall prognosis remains very guarded. Plan dated December 03, 2023. The patient had a PEG tube placed today. The patient is seen again in the intensive care unit, room 254. She remains on the ventilator. Blood gases are reasonable, showing a very mild metabolic alkalosis. She remains on propofol at 50 mcg/kg/min, lactated Ringer's at 100 cc an hour, and fentanyl at 1.5 mcg/kg/h. The tracheostomy is to be performed tomorrow. The patient continues on vancomycin, and infectious diseases have just added a Eraxis. Tube feedings are currently on hold. Labs, x-rays, and medications are reviewed. Overall prognosis remains very guarded. No additional recommendations are made. We will continue to follow. Plan dated December 04, 2023. The patient had a tracheostomy and PEG tube placement performed on December 02. She will also have a PICC line placed. Tube feedings are currently still on ho ld. The patient continues on vancomycin, and Eraxis. The patient is on propofol at 50 mcg/kg/min, and fentanyl 1.5 mcg/kg/h. The patient is also getting lactated Ringer's at 100 cc an hour. Labs, x-rays, and medications are all reviewed. We will continue to follow the patient, make recommendations along the way. Prognosis is certainly guarded at this time. Plan dated December 05, 2023. The patient had her tracheostomy tube and PEG tube placed on December 02. The patient also has had a PICC line placed. Currently, she remains on propofol, fentanyl, and she is receiving tube feedings. Blood gases show pO2 of 75, pCO2 49, pH is 7.44. The patient continues on vancomycin and Eraxis. We are going to discontinue the lactated Ringer's. We are going to give the patient Lasix 60 mg IV push, x 1. In addition, the patient will get Dilaudid 1 mg down the PEG tube every 6 hours, to see if we can get the patient off of IV fentanyl. Additional recommendations and suggestions are forthcoming. We will continue to follow make recommendations. Prognosis is guarded. Chest x-ray has improved somewhat over the last few days. Plan dated December 06, 2023. The patient is seen today in room 254. She remains on the mechanical ventilator. Blood gases have been reviewed. She continues on propofol, at 55 mcg/kg/min. She is getting saline at KVO. She is also getting her tube feedings at goal. She continues on vancomycin, for MRSA, and Eraxis, for suspected fungemia. We will continue to follow make recommendations. Labs, x- rays, and medications are reviewed. We have been able to wean her off the fentanyl. We will continue to follow the patient, and make recommendations along the way. Prognosis is very guarded. Plan dated December 07, 2023. The patient continues on the mechanical ventilator. The patient also continues on both vancomycin and Eraxis. The other medications are all reviewed. The patient continues on lactated Ringer's, tube feedings with vital high-protein, and propofol. Chest tubes remain in place. She will get some additional Lasix today. pO2 is 74, pCO2 is 47, pH is 7.51. Labs, x-rays, and medications are reviewed. We will continue to follow the patient, make recommendations along the way. Prognosis is certainly poor. Time with Patient: Greater than 30
--- NOTE | 2023-12-07 12:23 | P.PN ---
Subjective Progress Note Date: 12/07/23 patient [place] stable in the ASC. Her tracheostomy site is clean. PEG site is clean. Patient continue receive supportive care. Objective - Vital Signs Vital signs: Vital Signs Temp 99.9 F H 12/07/23 08:00 Pulse 94 12/07/23 11:27 Resp 26 H 12/07/23 09:00 BP 109/63 12/07/23 09:00 Pulse Ox 94 L 12/07/23 09:00 FiO2 50 12/07/23 11:17 Intake & Output 12/06/23 12/07/23 12/07/23 18:59 06:59 18:59 Intake Total 2152 1526.741 390.609 Output Total 2094 1158 360 Balance 58 368.741 30.609 Weight 139.706 kg Intake: IV 1230 590 30 0.9 @ KVO 130 90 30 Anidulafungin 100 mg In 100 Sodium Chloride 0.9% 100 ml @ 84 mls/hr IVPB DAILY [facility] Rx#:[id number] Vancomycin 2,000 mg In 1000 500 Sodium Chloride 0.9% 500 ml 500 ml @ 167 mls/hr IVPB Q8H [facility] Rx#: [id number] Intake, IV Titration 300 360.741 186.609 Amount propofoL 1,000 mg In 300 360.741 186.609 Empty Bag 1 bag @ 15 MCG/ KG/MIN 8.981 mls/hr IV . Q11H9M [facility] Rx#:[id number] Tube Feeding 532 456 114 Other 90 120 60 Output: Chest Tube Drainage 14 58 Chest Tube 10 40 Chest Tube Right 4 18 Urine 2080 1100 360 Other: Voiding Method Indwelling Catheter Indwelling Catheter Indwelling Catheter # Bowel Movements 1 ABP, PAP, CO, CI - Last Documented Arterial Blood Pressure 106/58 - Labs CBC & Chem 7: 12/07/23 05:11 12/07/23 05:11 Labs: Abnormal Lab Results - Last 24 Hours (Table) 12/06/23 12/06/23 12/07/23 Range/Units 17:30 23:51 05:11 WBC 12.5 H (3.8-10.6) k/uL RBC 2.41 L (3.80-5.40) m/uL Hgb 7.1 L (11.4-16.0) gm/dL Hct 22.4 L (34.0-46.0) % Neutrophils # 10.4 H (1.3-7.7) k/uL ABG pH (7.35-7.45) ABG pCO2 (35-45) mmHg ABG pO2 (83-108) mmHg ABG HCO3 (21-25) mmol/L ABG Total CO2 (19-24) mmol/L Potassium (3.5-5.1) mmol/L Carbon Dioxide (22-30) mmol/L Creatinine (0.52-1.04) mg/dL Glucose (74-99) mg/dL POC Glucose (mg/dL) 117 H 121 H (70-110) mg/dL Calcium (8.4-10.2) mg/dL 12/07/23 12/07/23 12/07/23 Range/Units 05:11 05:45 05:57 WBC (3.8-10.6) k/uL RBC (3.80-5.40) m/uL Hgb (11.4-16.0) gm/dL Hct (34.0-46.0) % Neutrophils # (1.3-7.7) k/uL ABG pH 7.51 H (7.35-7.45) ABG pCO2 47 H (35-45) mmHg ABG pO2 74 L (83-108) mmHg ABG HCO3 37 H (21-25) mmol/L ABG Total CO2 39 H (19-24) mmol/L Potassium 3.4 L (3.5-5.1) mmol/L Carbon Dioxide 37 H (22-30) mmol/L Creatinine 0.37 L (0.52-1.04) mg/dL Glucose 104 H (74-99) mg/dL POC Glucose (mg/dL) 119 H (70-110) mg/dL Calcium 7.4 L (8.4-10.2) mg/dL 12/07/23 Range/Units 11:30 WBC (3.8-10.6) k/uL RBC (3.80-5.40) m/uL Hgb (11.4-16.0) gm/dL Hct (34.0-46.0) % Neutrophils # (1.3-7.7) k/uL ABG pH (7.35-7.45) ABG pCO2 (35-45) mmHg ABG pO2 (83-108) mmHg ABG HCO3 (21-25) mmol/L ABG Total CO2 (19-24) mmol/L Potassium (3.5-5.1) mmol/L Carbon Dioxide (22-30) mmol/L Creatinine (0.52-1.04) mg/dL Glucose (74-99) mg/dL POC Glucose (mg/dL) 119 H (70-110) mg/dL Calcium (8.4-10.2) mg/dL
--- NOTE | 2023-12-07 16:01 | P.PN ---
Subjective Progress Note Date: 12/07/23 43 year old female evaluated today in the intensive care unit. Patient is currently sedated and remains on the mechanical ventilator. [facility] with shortness of breath and cough. Patient found to have bilateral pneumothorax and continues currently with right and left sided chest tubes. Chest xray today reveals continued diffuse bilateral airspace disease with extensive pleural parenchymal opacity. Continues on IV vancomycin due to MRSA bacteremia. White blood cell count today 24.2, hgb 7.1. Sodium 136, potassium 3.4. Remains on IV fentanyl, IV versed, IV propofol. Being considered from tracheostomy and PEG tube placement. Remains febrile with T-max 101.4 overnight. Unable to complete a review of systems as patient is currently intubated and sedated on the mechanical ventilator 12/05/2023 Patient is seen and evaluated in room at bedside; remains on the mechanical ventilator. -- Blood gases show pO2 75, pCO2 49, pH is 7.44. Labs include a white count of 16.7, hemoglobin 7.2, hematocrit 22.3, and a platelet count of 277,000. Sodium 138, potassium 3.6, chlorides 105, CO2 28, BUN 8, creatinine 0.35. The glucose is 123. The calcium is 7.3. Gram stain, and blood cultures, show evidence of methicillin-resistant Staph aureus. Chest x-ray shows a midline tracheostomy tube. The NG tube has been removed. The patient continues on vancomycin and Eraxis. 12/06/2023 Patient is seen and evaluated in room at bedside; remains on the ventilator. She is on volume assist-control; patient has been able to be weaned off of fentanyl - Blood gases show pO2 of 68, pCO2 48, pH is 7.51. White count 12.8, hemoglobin 7, hematocrit 23.1, and platelet count 282,000. Sodium 138, potassium 3.2, chlorides 100, CO2 37, BUN 6, creatinine 0.33. Glucose is 126. Albumin 1.9. All her previous cultures are showing evidence of methicillin-resistant Staph aureus. Chest x-ray shows diffuse bilateral airspace disease. Patient remains on vancomycin, and Eraxis for suspected fungemia. 12/07/2023 Patient is seen and evaluated in room at bedside; remains on the ventilator. She is on volume assist-control, rate 24, tidal volume 450, FiO2 50%, PEEP of 5. -- Blood gases show pO2 74, pCO2 47, pH is 7.51. The patient is getting lactated Ringer's at 20 cc an hour, vital high-protein at 38 cc an hour, which i s goal, and propofol at 55 mcg/kg/min. -- patient CV Lasix 60 mg IV push per marketing pr intern recommendation, and she continues on vancomycin and Eraxis. Bilateral chest tubes are still in place. White count 12.5, hemoglobin 7.1, hematocrit 22.4, platelet count was normal. Sodium 139, potassium 3.4, chlorides 102, CO2 37, BUN 7, creatinine 0.37. Glucose 119. Cultures all along have been positive for methicillin-resistant Staph aureus. Chest x-ray shows bilateral opacities, which are quite extensive. Objective - Vital Signs Vital signs: Vital Signs Temp 99.9 F H 12/07/23 08:00 Pulse 93 12/07/23 09:00 Resp 26 H 12/07/23 09:00 BP 109/63 12/07/23 09:00 Pulse Ox 94 L 12/07/23 09:00 FiO2 50 12/07/23 08:00 Intake & Output 12/06/23 12/07/23 12/07/23 18:59 06:59 18:59 Intake Total 2152 1526.741 291.267 Output Total 2094 1158 360 Balance 58 368.741 -68.733 Weight 139.706 kg Intake: IV 1230 590 30 0.9 @ KVO 130 90 30 Anidulafungin 100 mg In 100 Sodium Chloride 0.9% 100 ml @ 84 mls/hr IVPB DAILY [facility] Rx#:[id number] Vancomycin 2,000 mg In 1000 500 Sodium Chloride 0.9% 500 ml 500 ml @ 167 mls/hr IVPB Q8H [facility] Rx#: [id number] Intake, IV Titration 300 360.741 87.267 Amount propofoL 1,000 mg In 300 360.741 87.267 Empty Bag 1 bag @ 15 MCG/ KG/MIN 8.981 mls/hr IV . Q11H9M [facility] Rx#:[id number] Tube Feeding 532 456 114 Other 90 120 60 Output: Chest Tube Drainage 14 58 Chest Tube 10 40 Chest Tube Right 4 18 Urine 2080 1100 360 Other: Voiding Method Indwelling Catheter Indwelling Catheter # Bowel Movements 1 ABP, PAP, CO, CI - Last Documented Arterial Blood Pressure 106/58 - Exam GENERAL: The patient is alert and oriented x0, not in any acute distress. Intubated and sedated. Well developed, well nourished. Sedated. Patient will follow commands. FiO2 is 50% with a PEEP of 5 HEENT: Pupils are round and equally reacting to light. EOMI. No scleral icterus. No conjunctival pallor. Normocephalic, atraumatic. No pharyngeal erythema. No thyromegaly. CARDIOVASCULAR: S1 and S2 present. No murmurs, rubs, or gallops. PULMONARY: Chest is clear to auscultation, no wheezing . Coarse rhonchi noted throughout. Faint crackles noted on the right bases ABDOMEN: Soft, obese. Nontender, nondistended, normoactive bowel sounds. No palpable organomegaly. PEG tube noted MUSCULOSKELETAL: No joint swelling or deformity. EXTREMITIES: No cyanosis, clubbing, or pedal edema. NEUROLOGICAL: Unable to asses pt is sedated SKIN: No rashes. - Labs CBC & Chem 7: 12/07/23 05:11 12/07/23 14:15 Labs: Abnormal Lab Results - Last 24 Hours (Table) 12/06/23 12/06/23 12/06/23 Range/Units 11:28 17:30 23:51 WBC (3.8-10.6) k/uL RBC (3.80-5.40) m/uL Hgb (11.4-16.0) gm/dL Hct (34.0-46.0) % Neutrophils # (1.3-7.7) k/uL ABG pH (7.35-7.45) ABG pCO2 (35-45) mmHg ABG pO2 (83-108) mmHg ABG HCO3 (21-25) mmol/L ABG Total CO2 (19-24) mmol/L Potassium (3.5-5.1) mmol/L Carbon Dioxide (22-30) mmol/L Creatinine (0.52-1.04) mg/dL Glucose (74-99) mg/dL POC Glucose (mg/dL) 126 H 117 H 121 H (70-110) mg/dL Calcium (8.4-10.2) mg/dL 12/07/23 12/07/23 12/07/23 Range/Units 05:11 05:11 05:45 WBC 12.5 H (3.8-10.6) k/uL RBC 2.41 L (3.80-5.40) m/uL Hgb 7.1 L (11.4-16.0) gm/dL Hct 22.4 L (34.0-46.0) % Neutrophils # 10.4 H (1.3-7.7) k/uL ABG pH 7.51 H (7.35-7.45) ABG pCO2 47 H (35-45) mmHg ABG pO2 74 L (83-108) mmHg ABG HCO3 37 H (21-25) mmol/L ABG Total CO2 39 H (19-24) mmol/L Potassium 3.4 L (3.5-5.1) mmol/L Carbon Dioxide 37 H (22-30) mmol/L Creatinine 0.37 L (0.52-1.04) mg/dL Glucose 104 H (74-99) mg/dL POC Glucose (mg/dL) (70-110) mg/dL Calcium 7.4 L (8.4-10.2) mg/dL 12/07/23 Range/Units 05:57 WBC (3.8-10.6) k/uL RBC (3.80-5.40) m/uL Hgb (11.4-16.0) gm/dL Hct (34.0-46.0) % Neutrophils # (1.3-7.7) k/uL ABG pH (7.35-7.45) ABG pCO2 (35-45) mmHg ABG pO2 (83-108) mmHg ABG HCO3 (21-25) mmol/L ABG Total CO2 (19-24) mmol/L Potassium (3.5-5.1) mmol/L Carbon Dioxide (22-30) mmol/L Creatinine (0.52-1.04) mg/dL Glucose (74-99) mg/dL POC Glucose (mg/dL) 119 H (70-110) mg/dL Calcium (8.4-10.2) mg/dL Assessment and Plan Assessment: Acute hypoxic respiratory failure requiring mechanical ventilation secondary to acute bilateral pneumonia, status post PEG and trach placement on 12/03/2023. Acute bilateral pneumonia complicated by bilateral pneumothoraces. Acute bilateral empyema, post bilateral chest tube insertion with purulent material draining from both lungs. MRSA bacteremia Anemia with iron studies revealing underlying iron deficiency. Status post 2 units PRBC on 12/02/2023 Acute septic shock Acute leukocytosis secondary to above Morbid obesity Polysubstance abuse Hyponatremia Elevated LFTs Lactic acidosis GI prophylaxis DVT prophylaxis Lovenox Full Code Plan: Repeat labs in the AM, replace electrolytes per protocol Hemoglobin is currently stable above 7 today and is status post 2 unit of PRBC. No active bleeding noted. Tube feedings currently on hold and has received a PEG tube and will resume feedings to work towards goal at noon per surgery recommendations Patient is status post tracheostomy continues to be on a vent with an FiO2 of 50% and PEEP is 5 Continue telemetry monitoring Continue vent management per ICU Aggressive bronchopulmonary hygiene Blood cultures growing MRSA, repeat blood cultures thus far negative, continue with IV vancomycin per ID. Patient is scheduled to receive a PICC line today Currently weaned off vasopressor support. Continue chest tube management per CT surgery, plan for possible chest tube removal later today. Will follow-up on chest x-ray Social work following and plan is for [facility] of [place] once stable. Patient has been released from custody as she was incarcerated prior to this Due to multiple complex medical issues, overall prognosis is extremely poor and guarded at this time
[2023-12-07 17:57] LABS: Glucose,Whole Blood 99 mg/dL (70-110)
[2023-12-08 00:36] LABS: Glucose,Whole Blood 103 mg/dL (70-110)
[2023-12-08 05:34] LABS: ABG Base Excess 13.8 mmol/L; ABG HCO3 36 mmol/L (21-25); ABG Oxygen Saturation 95.5 % (94-97); ABG PCO2 43 mmHg (35-45); ABG PH 7.54 (7.35-7.45); ABG PO2 65 mmHg (83-108); ABG TCO2 38 mmol/L (19-24); Allen Test Performed? Yes
[2023-12-08 05:52] LABS: Basophils % (A) 0 %; Eosinophils # (A) 0.6 k/uL (0-0.7); Eosinophils % (A) 5 %; HCT 22.8 % (34.0-46.0); HGB 7.2 gm/dL (11.4-16.0); Hypochromasia Moderate; Lymphocytes % (A) 8 %; MCH 29.2 pg (25.0-35.0); MCHC 31.4 g/dL (31.0-37.0); MCV 93.2 fL (80.0-100.0); Mean Platelet Volume 9.1; Monocytes # (A) 0.4 k/uL (0-1.0); Monocytes % (A) 3 %; Neutrophils # (A) 11.3 k/uL (1.3-7.7); Neutrophils % (A) 83 %; Platelet Count 302 k/uL (150-450); RBC 2.45 m/uL (3.80-5.40); RDW 14.9 % (11.5-15.5); WBC 13.5 k/uL (3.8-10.6)
[2023-12-08 06:41] LABS: Glucose,Whole Blood 103 mg/dL (70-110)
[2023-12-08 07:04] LABS: African American GFR (CKD) >90 (>60 ml/min/1.73 sqM); Anion Gap 3 mmol/L; Blood Urea Nitrogen 7 mg/dL (7-17); Calcium 7.8 mg/dL (8.4-10.2); Carbon Dioxide 33 mmol/L (22-30); Chloride 103 mmol/L (98-107); Glucose 96 mg/dL (74-99); Non-African American GFR(CKD) >90 (>60 ml/min/1.73 sqM); Potassium 3.7 mmol/L (3.5-5.1); Sodium 139 mmol/L (137-145)
--- NOTE | 2023-12-08 07:44 | XR ---
EXAMINATION TYPE: XR chest 1V portable DATE OF EXAM: 12/08/2023 COMPARISON: 12/07/2023 HISTORY: Abnormal x-ray TECHNIQUE: Single frontal view of the chest is obtained. FINDINGS: Bilateral diffuse airspace disease with bilateral chest tubes. Small left-sided hydropneum othorax stable. Small right-sided pleural effusion stable. Tracheostomy tube and left-sided central l ine stable. Heart size normal. Osseous structures demonstrate degenerative changes. Surgical changes left shoulder. IMPRESSION: 1. Diffuse bilateral pleural-parenchymal changes stable. Small bilateral hydropneumothoraces are stab le.
--- NOTE | 2023-12-08 07:57 | P.PN ---
Subjective Progress Note Date: 12/07/23 Principal diagnosis: Reason for follow-up is sepsis MRSA pneumonia bacteremia and empyema Patient is a 43-year-old female past medical history significant for hypertension fibromyalgia asthma reflux seizure disorder currently incarcerated and presented from the local long-term for evaluation of increasing shortness of breath and chest pain, patient did have evidence of bilateral hydropneumothorax requiring bilateral chest tube placement and did have a positive blood culture with MRSA. Patient is status post tracheostomy completed on 12/03/2023. On today's evaluation that is 12/07/2023, patient has been afebrile, patient is breathing comfortably and is currently on the vent through the trach FiO2 of 50% no significant purulent secretions through the ET or any other changes reported by nursing staff patient is hemodynamically stable not requiring any pressor support. Patient white count is down to 12.5 creatinine is 0.37 Vanco trough for 20.9 blood culture repeat has been negative Objective - Vital Signs Vital signs: Vital Signs Temp 99.4 F 12/07/23 12:00 Pulse 90 12/07/23 14:00 Resp 24 12/07/23 14:00 BP 103/64 12/07/23 14:00 Pulse Ox 95 12/07/23 14:00 FiO2 50 12/07/23 12:00 Intake & Output 12/06/23 12/07/23 12/07/23 18:59 06:59 18:59 Intake Total 2152 9729.233 9340.609 Output Total 2094 1158 5110 Balance 58 368.741 -3905.391 Weight 139.706 kg Intake: IV 1230 590 670 0.9 @ KVO 130 90 70 Anidulafungin 100 mg In 100 100 Sodium Chloride 0.9% 100 ml @ 84 mls/hr IVPB DAILY [facility] Rx#:[id number] Vancomycin 2,000 mg In 1000 500 500 Sodium Chloride 0.9% 500 ml 500 ml @ 167 mls/hr IVPB Q8H [facility] Rx#: [id number] Intake, IV Titration 300 360.741 186.609 Amount propofoL 1,000 mg In 300 360.741 186.609 Empty Bag 1 bag @ 15 MCG/ KG/MIN 8.981 mls/hr IV . Q11H9M [facility] Rx#:[id number] Tube Feeding 532 456 228 Other 90 120 120 Output: Chest Tube Drainage 14 58 Chest Tube 10 40 Chest Tube Right 4 18 Urine 2080 1100 5110 Other: Voiding Method Indwelling Catheter Indwelling Catheter Indwelling Catheter # Bowel Movements 1 ABP, PAP, CO, CI - Last Documented Arterial Blood Pressure 106/58 - Exam GENERAL DESCRIPTION: Middle-aged female intubated through the trach RESPIRATORY SYSTEM: Unlabored breathing , coarse breath sounds bilaterally HEART: S1 S2 regular rate and rhythm , ABDOMEN: Soft , no tenderness EXTREMITIES: No edema feet - Labs CBC & Chem 7: 12/08/23 05:37 12/08/23 05:37 Labs: Abnormal Lab Results - Last 24 Hours (Table) 12/06/23 12/06/23 12/07/23 Range/Units 17:30 23:51 05:11 WBC 12.5 H (3.8-10.6) k/uL RBC 2.41 L (3.80-5.40) m/uL Hgb 7.1 L (11.4-16.0) gm/dL Hct 22.4 L (34.0-46.0) % Neutrophils # 10.4 H (1.3-7.7) k/uL ABG pH (7.35-7.45) ABG pCO2 (35-45) mmHg ABG pO2 (83-108) mmHg ABG HCO3 (21-25) mmol/L ABG Total CO2 (19-24) mmol/L Potassium (3.5-5.1) mmol/L Carbon Dioxide (22-30) mmol/L Creatinine (0.52-1.04) mg/dL Glucose (74-99) mg/dL POC Glucose (mg/dL) 117 H 121 H (70-110) mg/dL Calcium (8.4-10.2) mg/dL 12/07/23 12/07/23 12/07/23 Range/Units 05:11 05:45 05:57 WBC (3.8-10.6) k/uL RBC (3.80-5.40) m/uL Hgb (11.4-16.0) gm/dL Hct (34.0-46.0) % Neutrophils # (1.3-7.7) k/uL ABG pH 7.51 H (7.35-7.45) ABG pCO2 47 H (35-45) mmHg ABG pO2 74 L (83-108) mmHg ABG HCO3 37 H (21-25) mmol/L ABG Total CO2 39 H (19-24) mmol/L Potassium 3.4 L (3.5-5.1) mmol/L Carbon Dioxide 37 H (22-30) mmol/L Creatinine 0.37 L (0.52-1.04) mg/dL Glucose 104 H (74-99) mg/dL POC Glucose (mg/dL) 119 H (70-110) mg/dL Calcium 7.4 L (8.4-10.2) mg/dL 12/07/23 Range/Units 11:30 WBC (3.8-10.6) k/uL RBC (3.80-5.40) m/uL Hgb (11.4-16.0) gm/dL Hct (34.0-46.0) % Neutrophils # (1.3-7.7) k/uL ABG pH (7.35-7.45) ABG pCO2 (35-45) mmHg ABG pO2 (83-108) mmHg ABG HCO3 (21-25) mmol/L ABG Total CO2 (19-24) mmol/L Potassium (3.5-5.1) mmol/L Carbon Dioxide (22-30) mmol/L Creatinine (0.52-1.04) mg/dL Glucose (74-99) mg/dL POC Glucose (mg/dL) 119 H (70-110) mg/dL Calcium (8.4-10.2) mg/dL Assessment and Plan (1) Empyema Current Visit: Yes Status: Acute Code(s): J86.9 - PYOTHORAX WITHOUT FISTULA SNOMED Code(s): 317575726 (2) MRSA bacteremia Current Visit: Yes Status: Acute Code(s): R78.81 - BACTEREMIA; B95.62 - METHICILLIN RESIS STAPH INFCT CAUSING DISEASES [facility] SNOMED Code(s): 70125670889506593 (3) Pneumonia Current Visit: Yes Status: Acute Code(s): J18.9 - PNEUMONIA, UNSPECIFIED ORGANISM SNOMED Code(s): 140478707 (4) Pneumothorax Current Visit: Yes Status: Acute Code(s): J93.9 - PNEUMOTHORAX, UNSPECIFIED SNOMED Code(s): 69630449 Plan: 1patient presented to hospital with sepsis in this patient who did have a fever tachycardia elevated white count source is pulmonary in this patient noted evidence of bilateral pneumothorax and effusion with question of complicated pneumonia/empyema keeping in mind the patient is from local retirement will need to cover for resistant gram-positive such as MRSA and gram-negative pathogen 2-patient blood sputum and pleural fluid culture with MRSA 3-Patient did clear her bacteremia as the blood culture from 11/26/2023 as well as 11/27/2023 has been negative patient did have a PICC line placement on 12/04/2023 4-patient did have resolution of her fever and the patient white count is trending down, patient currently being treated with the vancomycin with a trough of 20.9 kidney function will monitor closely 5-patient with oropharyngeal candidiasis patient currently being treated with Eraxis 6-significant diarrhea antibiotic associated stool for C. difficile negative continue with symptomatic treatment Dictation was produced using [employer] dictation software. please excuse any grammatical, word or spelling errors. Time with Patient: Less than 30
--- NOTE | 2023-12-08 08:45 | P.PN ---
Subjective Progress Note Date: 12/08/23 Principal diagnosis: Acute hypoxic respiratory failure requiring mechanical ventilation, bilateral hydropneumothoraces, empyema, status post bilateral chest tube insertion, septic shock. Past medical history significant for MS, obesity, migraines, seizures, fibromyalgia, hypertension, asthma, anxiety/depression/bipolar disorder, polysubstance abuse. POD #5 placement of tracheostomy and PEG tube by Dr. Johnson. POD #4 placement of peripherally inserted central catheter under fluoroscopic guidance using chest x-rays by Dr. Beth. The patient was seen and examined in follow-up today December 08, 2023 at her bedside in the intensive care unit. She remains with mechanical ventilator support, tracheostomy is midline and intact, opens eyes with verbal stimuli although is not following any verbal commands at this time. Tmax temperature in the last 24 hours was 100.5 F, she remains on vancomycin and Eraxis for antibiotic coverage managed by infectious disease. Oxygen saturations are 96% on current mechanical ventilator settings as follows, assist-control 24, TV 450, FiO2 50% and PEEP of 5. Bedside telemetry is showing normal sinus rhythm heart rate 90 bpm. Left and right pleural chest tubes remain in place to low continuous wall suction -20 cm H2O. No air leak is present. Left pleural chest tube draining thin serosanguineous drainage with 10 mL output in the last 24 hours. Right pleural chest tube draining thin serosanguineous drainage with 80 mL output in the last 24 hours. Chest x-ray results reviewed. Objective - Vital Signs Vital signs: Vital Signs Temp 99.0 F 12/08/23 04:00 Pulse 93 12/08/23 08:20 Resp 24 12/08/23 06:00 BP 114/74 12/08/23 06:00 Pulse Ox 96 12/08/23 06:00 FiO2 50 12/08/23 08:09 Intake & Output 12/07/23 12/08/23 12/08/23 18:59 06:59 18:59 Intake Total 2186.388 1396.244 76.29 Output Total 4045 1786 Balance -3918.612 -389.756 76.29 Weight 128.7 kg Intake: IV 1220 590 0.9 @ KVO 120 90 Anidulafungin 100 mg In 100 Sodium Chloride 0.9% 100 ml @ 84 mls/hr IVPB DAILY [facility] Rx#:[id number] Vancomycin 2,000 mg In 1000 500 Sodium Chloride 0.9% 500 ml 500 ml @ 167 mls/hr IVPB Q8H [facility] Rx#: [id number] Intake, IV Titration 368.388 298.244 76.29 Amount propofoL 1,000 mg In 368.388 298.244 76.29 Empty Bag 1 bag @ 15 MCG/ KG/MIN 8.981 mls/hr IV . Q11H9M [facility] Rx#:[id number] Tube Feeding 418 418 Other 180 90 Output: Chest Tube Drainage 20 36 Chest Tube 0 30 Chest Tube Right 20 6 Urine 5810 1750 Stool 275 Other: Voiding Method Indwelling Catheter Indwelling Catheter ABP, PAP, CO, CI - Last Documented Arterial Blood Pressure 106/58 - Exam CONSTITUTIONAL: Mechanical ventilation, laying in bed in the intensive care unit, opens eyes with verbal stimuli. RESPIRATORY: Lungs sounds diminished bilaterally. Respirations symmetrical, nonlabored with mechanical ventilator support, current settings assist-control mode, FiO2 50%, tidal volume 450, PEEP 5, respiratory rate 24. CARDIOVASCULAR: S1, S2 present. Regular rate and rhythm, bedside telemetry showing normal sinus rhythm heart rate 90 bpm. Palpable peripheral pulses bilaterally. Generalized trace edema present. No calf pain or tenderness noted. SCDs present. GASTROINTESTINAL: Abdomen soft, nontender, nondistended. Active bowel sounds present 4 quadrants. PEG tube present with tube feedings infusing at goal rate. GENITOURINARY: Beth present draining clear, yellow urine. Output 975 mL in the last 8 hours. INTEGUMENTARY: Skin is warm and dry, no clubbing or cyanosis is present. Dressings to her bilateral chest tube insertion sites clean dry and intact. NEUROLOGIC: Mechanical ventilation, unable to accurately assess at this time. INVASIVE LINES AND TUBES: Left/right pleural chest tubes present and connected to wall suction, no air leaks present this morning. Left pleural chest tube with 10 mL thin serosanguineous drainage in the last 24 hours. Right pleural chest tube with 80 mL in the last 24 hours. Right arm PICC line. - Allied health notes Allied health notes reviewed: nursing - Labs CBC & Chem 7: 12/08/23 05:37 12/08/23 05:37 Labs: Abnormal Lab Results - Last 24 Hours (Table) 12/07/23 12/07/23 12/08/23 Range/Units 11:30 14:15 05:33 WBC (3.8-10.6) k/uL RBC (3.80-5.40) m/uL Hgb (11.4-16.0) gm/dL Hct (34.0-46.0) % Neutrophils # (1.3-7.7) k/uL ABG pH 7.54 H (7.35-7.45) ABG pO2 65 L (83-108) mmHg ABG HCO3 36 H (21-25) mmol/L ABG Total CO2 38 H (19-24) mmol/L Potassium 3.4 L (3.5-5.1) mmol/L Carbon Dioxide (22-30) mmol/L Creatinine (0.52-1.04) mg/dL POC Glucose (mg/dL) 119 H (70-110) mg/dL Calcium (8.4-10.2) mg/dL 12/08/23 12/08/23 Range/Units 05:37 05:37 WBC 13.5 H (3.8-10.6) k/uL RBC 2.45 L (3.80-5.40) m/uL Hgb 7.2 L (11.4-16.0) gm/dL Hct 22.8 L (34.0-46.0) % Neutrophils # 11.3 H (1.3-7.7) k/uL ABG pH (7.35-7.45) ABG pO2 (83-108) mmHg ABG HCO3 (21-25) mmol/L ABG Total CO2 (19-24) mmol/L Potassium (3.5-5.1) mmol/L Carbon Dioxide 33 H (22-30) mmol/L Creatinine 0.39 L (0.52-1.04) mg/dL POC Glucose (mg/dL) (70-110) mg/dL Calcium 7.8 L (8.4-10.2) mg/dL - Imaging and Cardiology Chest x-ray: report reviewed, image reviewed Assessment and Plan Assessment: Acute hypoxic respiratory failure requiring mechanical ventilation, status post trach and PEG placement Bilateral hydropneumothoraces, empyema, status post bilateral chest tube insertion Septic shock, requiring IV vasopressors, MRSA in her blood, pleural fluid, sput um and nasal swab, currently on vancomycin and Eraxis for antibiotic coverage Chest pain, shortness of breath present on admission secondary to above History of MS Obesity Migraines Seizures Fibromyalgia Hypertension Asthma Anxiety/depression/bipolar disorder Polysubstance abuse Plan: We will remove her left pleural chest tube today, keep right pleural chest tube in place to low continuous wall suction -20 cm H2O, continue to record output. Ventilator management per die technician. Antibiotics per infectious disease. Medical management of other comorbidities per internal medicine, pulmonology, ID. More recommendations to follow based on patient's clinical course. Time with Patient: Less than 30
[2023-12-08 09:29] LABS: ABG Base Excess 10.1 mmol/L; ABG HCO3 34 mmol/L (21-25); ABG Oxygen Saturation 98.6 % (94-97); ABG PCO2 44 mmHg (35-45); ABG PH 7.49 (7.35-7.45); ABG PO2 91 mmHg (83-108); ABG TCO2 35 mmol/L (19-24); Allen Test Performed? Yes
[2023-12-08 11:47] LABS: Glucose,Whole Blood 94 mg/dL (70-110)
--- NOTE | 2023-12-08 12:10 | P.PN ---
Subjective Progress Note Date: 12/08/23 43 year old female evaluated today in the intensive care unit. Patient is currently sedated and remains on the mechanical ventilator. Presents from the [facility] with shortness of breath and cough. Patient found to have bilateral pneumothorax and continues currently with right and left sided chest tubes. Ches t xray today reveals continued diffuse bilateral airspace disease with extensive pleural parenchymal opacity. Continues on IV vancomycin due to MRSA bacteremia. White blood cell count today 24.2, hgb 7.1. Sodium 136, potassium 3.4. Remains on IV fentanyl, IV versed, IV propofol. Being considered from tracheostomy and PEG tube placement. Remains febrile with T-max 101.4 overnight. Unable to complete a review of systems as patient is currently intubated and sedated on the mechanical ventilator 12/05/2023 Patient is seen and evaluated in room at bedside; remains on the mechanical ventilator. -- Blood gases show pO2 75, pCO2 49, pH is 7.44. Labs include a white count of 16.7, hemoglobin 7.2, hematocrit 22.3, and a platelet count of 277,000. Sodium 138, potassium 3.6, chlorides 105, CO2 28, BUN 8, creatinine 0.35. The glucose is 123. The calcium is 7.3. Gram stain, and blood cultures, show evidence of methicillin-resistant Staph aureus. Chest x-ray shows a midline tracheostomy tube. The NG tube has been removed. The patient continues on vancomycin and Eraxis. 12/06/2023 Patient is seen and evaluated in room at bedside; remains on the ventilator. She is on volume assist-control; patient has been able to be weaned off of fenta nyl - Blood gases show pO2 of 68, pCO2 48, pH is 7.51. White count 12.8, hemoglobin 7, hematocrit 23.1, and platelet count 282,000. Sodium 138, potassium 3.2, chlorides 100, CO2 37, BUN 6, creatinine 0.33. Glucose is 126. Albumin 1.9. All her previous cultures are showing evidence of methicillin-resistant Staph aureus. Chest x-ray shows diffuse bilateral airspace disease. Patient remains on vancomycin, and Eraxis for suspected fungemia. 12/07/2023 Patient is seen and evaluated in room at bedside; remains on the ventilator. She is on volume assist-control, rate 24, tidal volume 450, FiO2 50%, PEEP of 5. -- Blood gases show pO2 74, pCO2 47, pH is 7.51. The patient is getting lactated Ringer's at 20 cc an hour, vital high-protein at 38 cc an hour, which is goal, and propofol at 55 mcg/kg/min. -- patient CV Lasix 60 mg IV push per antique furniture repairer recommendation, and she continues on vancomycin and Eraxis. Bilateral chest tubes are still in place. White count 12.5, hemoglobin 7.1, hematocrit 22.4, platelet count was normal. Sodium 139, potassium 3.4, chlorides 102, CO2 37, BUN 7, creatinine 0.37. Glucose 119. Cultures all along have been positive for methicillin-resistant Staph aureus. Chest x-ray shows bilateral opacities, which are quite extensive. 12/08/23 : Dr Isaac assumed care Patient seen and evaluated in medical ICU patient remains intubated, on 50% FiO2, blood work reviewed, CBC showed WBC of 13.5 hemoglobin of 7.2 platelet count of 302. Arterial blood gas showed pH 7.49 pCO2 of 44 pO2 of 91, serum c hemistry shows sodium 139 potassium 3.7 BUN 7 creatinine 0.39, stool C. difficile was negative. Patient continues to remain on antibiotic coverage managed by infectious disease, patient is s/p tracheostomy and PEG tube placement, followed by medical ICU team plan for removal of chest tube today by thoracic surgery. GENERAL: The patient is alert and oriented x0, not in any acute distress. Intub ated and sedated. Sedated. HEENT: . Normocephalic, atraumatic. CARDIOVASCULAR: S1 and S2 present. No murmurs, rubs, or gallops. PULMONARY: Chest tube in place, decreased breath sounds bilaterally rhonchi audible ABDOMEN: Soft, obese. PEG tube noted MUSCULOSKELETAL: No joint swelling or deformity. EXTREMITIES: No cyanosis, clubbing, or pedal edema. NEUROLOGICAL: Unable to asses pt is sedated SKIN: No rashes. Assessment and plan * Acute hypoxic respiratory failure requiring mechanical ventilation secondary to acute bilateral pneumonia, status post PEG and trach placement on . * Acute bilateral pneumonia complicated by bilateral pneumothoraces. * Acute bilateral empyema, post bilateral chest tube insertion with purulent material draining from both lungs. * MRSA bacteremia * Anemia with iron studies revealing underlying iron deficiency. Status post 2 units PRBC on 12/02/2023 * septic shock * Morbid obesity * Polysubstance abuse * Hyponatremia * Transaminitis * History of seizure disorder * Consultation obtained from medical ICU, infectious disease, thoracic surgery, surgery team * In regards to respiratory failure continue vent management per medical ICU team, patient is s/p tracheostomy, * Regards to sepsis, blood culture positive for MRSA, repeat blood cultures no growth till date continue IV vancomycin per infectious disease patient is weaned off pressor support * In regards to hydropneumothorax, chest tube management per thoracic surgery, * In regards to anemia continue to follow-up on H&H, s/p 2 unit packed RBC transfusion on 12/07/2023 * Patient continues to remain critically ill, prognosis remains extremely guarded Objective - Vital Signs Vital signs: Vital Signs Temp 99.0 F 12/08/23 04:00 Pulse 93 12/08/23 08:20 Resp 24 12/08/23 06:00 BP 114/74 12/08/23 06:00 Pulse Ox 96 12/08/23 06:00 FiO2 50 12/08/23 08:09 Intake & Output 12/07/23 12/08/23 12/08/23 18:59 06:59 18:59 Intake Total 2186.388 1396.244 76.29 Output Total 6105 1786 Balance -3918.612 -389.756 76.29 Weight 128.7 kg Intake: IV 1220 590 0.9 @ KVO 120 90 Anidulafungin 100 mg In 100 Sodium Chloride 0.9% 100 ml @ 84 mls/hr IVPB DAILY [facility] Rx#:[id number] Vancomycin 2,000 mg In 1000 500 Sodium Chloride 0.9% 500 ml 500 ml @ 167 mls/hr IVPB Q8H [facility] Rx#: [id number] Intake, IV Titration 368.388 298.244 76.29 Amount propofoL 1,000 mg In 368.388 298.244 76.29 Empty Bag 1 bag @ 15 MCG/ KG/MIN 8.981 mls/hr IV . Q11H9M [facility] Rx#:[id number] Tube Feeding 418 418 Other 180 90 Output: Chest Tube Drainage 20 36 Chest Tube 0 30 Chest Tube Right 20 6 Urine 5810 1750 Stool 275 Other: Voiding Method Indwelling Catheter Indwelling Catheter ABP, PAP, CO, CI - Last Documented Arterial Blood Pressure 106/58 - Labs CBC & Chem 7: 12/08/23 05:37 12/08/23 05:37 Labs: Abnormal Lab Results - Last 24 Hours (Table) 12/07/23 12/07/23 12/08/23 Range/Units 11:30 14:15 05:33 WBC (3.8-10.6) k/uL RBC (3.80-5.40) m/uL Hgb (11.4-16.0) gm/dL Hct (34.0-46.0) % Neutrophils # (1.3-7.7) k/uL ABG pH 7.54 H (7.35-7.45) ABG pO2 65 L (83-108) mmHg ABG HCO3 36 H (21-25) mmol/L ABG Total CO2 38 H (19-24) mmol/L Potassium 3.4 L (3.5-5.1) mmol/L Carbon Dioxide (22-30) mmol/L Creatinine (0.52-1.04) mg/dL POC Glucose (mg/dL) 119 H (70-110) mg/dL Calcium (8.4-10.2) mg/dL 12/08/23 12/08/23 Range/Units 05:37 05:37 WBC 13.5 H (3.8-10.6) k/uL RBC 2.45 L (3.80-5.40) m/uL Hgb 7.2 L (11.4-16.0) gm/dL Hct 22.8 L (34.0-46.0) % Neutrophils # 11.3 H (1.3-7.7) k/uL ABG pH (7.35-7.45) ABG pO2 (83-108) mmHg ABG HCO3 (21-25) mmol/L ABG Total CO2 (19-24) mmol/L Potassium (3.5-5.1) mmol/L Carbon Dioxide 33 H (22-30) mmol/L Creatinine 0.39 L (0.52-1.04) mg/dL POC Glucose (mg/dL) (70-110) mg/dL Calcium 7.8 L (8.4-10.2) mg/dL
--- NOTE | 2023-12-08 12:22 | P.PN ---
Subjective Progress Note Date: 12/08/23 CHIEF COMPLAINT: Respiratory failure HISTORY OF PRESENT ILLNESS: Patient remains in the ICU on mechanical ventilation. She has chest tubes in place. She is status post tracheostomy and PEG tube placement. Patient has been tolerating tube feeds. Unfortunately the tube feed pump has broken. Nursing staff is working on getting a replacement. PHYSICAL EXAM: VITAL SIGNS: Reviewed. GENERAL: no acute distress. HEENT: Tracheostomy site clean dry and intact ABDOMEN: Soft. Nondistended. Nontender. PEG tube site clean dry and intact NEUROLOGIC: Intubated and sedated ASSESSMENT: 1. Severe protein calorie malnutrition 2. Respiratory failure with MRSA pneumonia, empyema and hydropneumothorax st atus post chest tube placement bilaterally PLAN: -Resume tube feedings as soon as pump is placed -Continue ICU management -Continue supportive care Physician Road Mender note has been reviewed by physician. Signing provider agrees with the documented findings, assessment, and plan of care. Objective - Vital Signs Vital signs: Vital Signs Temp 100.1 F H 12/08/23 08:00 Pulse 92 12/08/23 12:02 Resp 32 H 12/08/23 10:00 BP 110/63 12/08/23 10:00 Pulse Ox 96 12/08/23 10:00 FiO2 50 12/08/23 11:58 Intake & Output 12/07/23 12/08/23 12/08/23 18:59 06:59 18:59 Intake Total 2186.388 1396.244 750.319 Output Total 6105 1786 1000 Balance -3918.612 -389.756 -249.681 Weight 128.7 kg Intake: IV 1220 590 540 0.9 @ KVO 120 90 40 Anidulafungin 100 mg In 100 Sodium Chloride 0.9% 100 ml @ 84 mls/hr IVPB DAILY [facility] Rx#:[id number] Vancomycin 2,000 mg In 1000 500 500 Sodium Chloride 0.9% 500 ml 500 ml @ 167 mls/hr IVPB Q8H [facility] Rx#: [id number] Intake, IV Titration 368.388 298.244 210.319 Amount propofoL 1,000 mg In 368.388 298.244 210.319 Empty Bag 1 bag @ 15 MCG/ KG/MIN 8.981 mls/hr IV . Q11H9M [facility] Rx#:[id number] Tube Feeding 418 418 Other 180 90 Output: Chest Tube Drainage 20 36 Chest Tube 0 30 Chest Tube Right 20 6 Urine 5810 1750 1000 Stool 275 Other: Voiding Method Indwelling Catheter Indwelling Catheter Indwelling Catheter ABP, PAP, CO, CI - Last Documented Arterial Blood Pressure 106/58 - Labs CBC & Chem 7: 12/08/23 05:37 12/08/23 05:37 Labs: Abnormal Lab Results - Last 24 Hours (Table) 12/07/23 12/08/23 12/08/23 Range/Units 14:15 05:33 05:37 WBC (3.8-10.6) k/uL RBC (3.80-5.40) m/uL Hgb (11.4-16.0) gm/dL Hct (34.0-46.0) % Neutrophils # (1.3-7.7) k/uL ABG pH 7.54 H (7.35-7.45) ABG pO2 65 L (83-108) mmHg ABG HCO3 36 H (21-25) mmol/L ABG Total CO2 38 H (19-24) mmol/L ABG O2 Saturation (94-97) % Potassium 3.4 L (3.5-5.1) mmol/L Carbon Dioxide 33 H (22-30) mmol/L Creatinine 0.39 L (0.52-1.04) mg/dL Calcium 7.8 L (8.4-10.2) mg/dL 12/08/23 12/08/23 Range/Units 05:37 09:27 WBC 13.5 H (3.8-10.6) k/uL RBC 2.45 L (3.80-5.40) m/uL Hgb 7.2 L (11.4-16.0) gm/dL Hct 22.8 L (34.0-46.0) % Neutrophils # 11.3 H (1.3-7.7) k/uL ABG pH 7.49 H (7.35-7.45) ABG pO2 (83-108) mmHg ABG HCO3 34 H (21-25) mmol/L ABG Total CO2 35 H (19-24) mmol/L ABG O2 Saturation 98.6 H (94-97) % Potassium (3.5-5.1) mmol/L Carbon Dioxide (22-30) mmol/L Creatinine (0.52-1.04) mg/dL Calcium (8.4-10.2) mg/dL
--- NOTE | 2023-12-08 13:13 | P.PN ---
Subjective Progress Note Date: 12/08/23 On today's evaluation of 12/08/2023, the patient is being seen for a follow-up. This morning, the patient is still sedated with propofol at 55 mcg/kg/min. She seems to be arousable and she withdraws to painful stimulation. She has profound weakness in all 4 extremities. The patient remains on the mechanical ventilator. She has never worn a tracheostomy tube that was inserted for prolonged respiratory failure and the patient has a Bivona #8. She is currently on assist-control mode of mechanical ventilation at a rate of 24, tidal volume of 450, FiO2 of 50% with a PEEP of 5. Pulmonary artery pressures 43 peak and 31 static airway pressure. The blood gas from today shows a pH of 7.54 with a pCO2 of 43 and pO2 of 65. The patient's right-sided chest tube has drained about 80 cc over the past 24 hours and no output from the left-sided chest tube. She has a fluid balance of -4.3 L over the past 24 hours as the patient was given diuretics. The rest of the labs from today shows a WBC count of 13.5 with a hemoglobin of 7.2 and a platelet count of 302. Sodium is at 139, potassium is at 3.7, BUN is at 7 with a creatinine of 0.39. Blood sugar is adequately controlled for now. The patient is receiving enteral feeding for nutritional support. She is currently afebrile. No pressors on board. Objective - Vital Signs Vital signs: Vital Signs Temp 100.1 F H 12/08/23 08:00 Pulse 92 12/08/23 12:02 Resp 32 H 12/08/23 10:00 BP 110/63 12/08/23 10:00 Pulse Ox 96 12/08/23 10:00 FiO2 50 12/08/23 11:58 Intake & Output 12/07/23 12/08/23 12/08/23 18:59 06:59 18:59 Intake Total 2186.388 1396.244 816.290 Output Total 6105 1786 1000 Balance -3918.612 -389.756 -183.710 Weight 128.7 kg Intake: IV 1220 590 540 0.9 @ KVO 120 90 40 Anidulafungin 100 mg In 100 Sodium Chloride 0.9% 100 ml @ 84 mls/hr IVPB DAILY [facility] Rx#:[id number] Vancomycin 2,000 mg In 1000 500 500 Sodium Chloride 0.9% 500 ml 500 ml @ 167 mls/hr IVPB Q8H [facility] Rx#: [id number] Intake, IV Titration 368.388 298.244 276.290 Amount propofoL 1,000 mg In 368.388 298.244 276.290 Empty Bag 1 bag @ 15 MCG/ KG/MIN 8.981 mls/hr IV . Q11H9M [facility] Rx#:[id number] Tube Feeding 418 418 Other 180 90 Output: Chest Tube Drainage 20 36 Chest Tube 0 30 Chest Tube Right 20 6 Urine 5810 1750 1000 Stool 275 Other: Voiding Method Indwelling Catheter Indwelling Catheter Indwelling Catheter ABP, PAP, CO, CI - Last Documented Arterial Blood Pressure 106/58 - Exam CONSTITUTIONAL: Mechanical ventilation, laying in bed in the intensive care unit, opens eyes with verbal stimuli. RESPIRATORY: Lungs sounds diminished bilaterally. Respirations symmetrical, nonlabored with mechanical ventilator support, current settings assist-control mode, FiO2 50%, tidal volume 450, PEEP 5, respiratory rate 24. CARDIOVASCULAR: S1, S2 present. Regular rate and rhythm, bedside telemetry showing normal sinus rhythm heart rate 90 bpm. Palpable peripheral pulses bilaterally. Generalized trace edema present. No calf pain or tenderness noted. SCDs present. GASTROINTESTINAL: Abdomen soft, nontender, nondistended. Active bowel sounds present 4 quadrants. PEG tube present with tube feedings infusing at goal rate. GENITOURINARY: Beth present draining clear, yellow urine. Output 975 mL in the last 8 hours. INTEGUMENTARY: Skin is warm and dry, no clubbing or cyanosis is present. Dressings to her bilateral chest tube insertion sites clean dry and intact. NEUROLOGIC: Mechanical ventilation, unable to accurately assess at this time. INVASIVE LINES AND TUBES: Left/right pleural chest tubes present and connected to wall suction, no air leaks present this morning. Left pleural chest tube with 10 mL thin serosanguineous drainage in the last 24 hours. Right pleural chest tube with 80 mL in the last 24 hours. Right arm PICC line. - Labs CBC & Chem 7: 12/08/23 05:37 12/08/23 05:37 Labs: Abnormal Lab Results - Last 24 Hours (Table) 12/07/23 12/08/23 12/08/23 Range/Units 14:15 05:33 05:37 WBC (3.8-10.6) k/uL RBC (3.80-5.40) m/uL Hgb (11.4-16.0) gm/dL Hct (34.0-46.0) % Neutrophils # (1.3-7.7) k/uL ABG pH 7.54 H (7.35-7.45) ABG pO2 65 L (83-108) mmHg ABG HCO3 36 H (21-25) mmol/L ABG Total CO2 38 H (19-24) mmol/L ABG O2 Saturation (94-97) % Potassium 3.4 L (3.5-5.1) mmol/L Carbon Dioxide 33 H (22-30) mmol/L Creatinine 0.39 L (0.52-1.04) mg/dL Calcium 7.8 L (8.4-10.2) mg/dL 12/08/23 12/08/23 Range/Units 05:37 09:27 WBC 13.5 H (3.8-10.6) k/uL RBC 2.45 L (3.80-5.40) m/uL Hgb 7.2 L (11.4-16.0) gm/dL Hct 22.8 L (34.0-46.0) % Neutrophils # 11.3 H (1.3-7.7) k/uL ABG pH 7.49 H (7.35-7.45) ABG pO2 (83-108) mmHg ABG HCO3 34 H (21-25) mmol/L ABG Total CO2 35 H (19-24) mmol/L ABG O2 Saturation 98.6 H (94-97) % Potassium (3.5-5.1) mmol/L Carbon Dioxide (22-30) mmol/L Creatinine (0.52-1.04) mg/dL Calcium (8.4-10.2) mg/dL Assessment and Plan Plan: Acute hypoxic respiratory failure, currently intubated on mechanical ventilator, the patient has prolonged ventilator dependent respiratory failure and the patient was given tracheostomy tube for ventilator support and the patient currently has a Bivona #8. She remains on mechanical ventilator on assist- control mode. He has sacral pressure quite elevated. Acute bilateral pneumonia complicated by bilateral pneumothoraces. The patient is post bilateral chest tube insertion. The patient was found to have bilateral empyema requiring bilateral chest tube insertion. No evidence of any air leak and the most recent CAT scan of the chest that was done on this patient showed some minimal residual fluid/collection in the lungs bilaterally. Chest tubes remain in good location and the patient has no evidence of air leak and no output from the left-sided chest tube, minimal output on the right. Acute bilateral empyema, Acute bilateral staphylococcal pneumonia with secondary cavitation and complication with bilateral pneumothoraces. The patient remains on vancomycin. Vancomycin trough on 12/07/2023 is 20. 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 No evidence of any air leak. No evidence of pneumothorax and the left-sided chest tube will be removed. Will keep right-sided chest tube in place Will continue monitoring the progress Enteral feeding for nutritional support IV vancomycin IV Eraxis per infectious disease Follow-up cultures have been negative Transthoracic echocardiogram shows no evidence of any vegetation Check serum cortisol level Put the patient on Lovenox 40 mg subcu for DVT prophylaxis Will continue to follow make further recommendations based on her progress. This evaluation was done more than 45 minutes excluding time to do any procedures. Family will be informed. Time with Patient: Greater than 30
[2023-12-08] MEDS: OLANZapine 10 MG VIAL IM STA (15:02)
[2023-12-08 17:43] LABS: Glucose,Whole Blood 93 mg/dL (70-110)
[2023-12-08] MEDS: POTASSIUM BICARBONATE/CIT AC 20 MEQ TABLET.EFF NG-TUBE SCH (21:48)
[2023-12-09 00:17] LABS: Glucose,Whole Blood 98 mg/dL (70-110)
[2023-12-09 05:07] LABS: ABG Base Excess 4.6 mmol/L; ABG HCO3 30 mmol/L (21-25); ABG Oxygen Saturation 97.2 % (94-97); ABG PCO2 48 mmHg (35-45); ABG PO2 85 mmHg (83-108); ABG TCO2 31 mmol/L (19-24); Allen Test Performed? Yes
[2023-12-09 05:21] LABS: Glucose,Whole Blood 114 mg/dL (70-110)
[2023-12-09 05:33] LABS: Basophils # (A) 0.1 k/uL (0-0.2); Basophils % (A) 0 %; Eosinophils # (A) 0.8 k/uL (0-0.7); Eosinophils % (A) 5 %; HCT 26.1 % (34.0-46.0); HGB 7.9 gm/dL (11.4-16.0); Hypochromasia Moderate; Lymphocytes # (A) 1.2 k/uL (1.0-4.8); Lymphocytes % (A) 7 %; MCH 28.8 pg (25.0-35.0); MCHC 30.3 g/dL (31.0-37.0); MCV 95.1 fL (80.0-100.0); Mean Platelet Volume 8.7; Monocytes # (A) 0.6 k/uL (0-1.0); Monocytes % (A) 4 %; Neutrophils # (A) 13.5 k/uL (1.3-7.7); Neutrophils % (A) 83 %; Platelet Count 380 k/uL (150-450); RBC 2.74 m/uL (3.80-5.40); RDW 14.7 % (11.5-15.5); WBC 16.3 k/uL (3.8-10.6)
[2023-12-09 05:43] LABS: African American GFR (CKD) >90 (>60 ml/min/1.73 sqM); Anion Gap 2 mmol/L; Blood Urea Nitrogen 7 mg/dL (7-17); Calcium 8.1 mg/dL (8.4-10.2); Carbon Dioxide 31 mmol/L (22-30); Chloride 108 mmol/L (98-107); Glucose 109 mg/dL (74-99); Non-African American GFR(CKD) >90 (>60 ml/min/1.73 sqM); Sodium 141 mmol/L (137-145)
--- NOTE | 2023-12-09 07:52 | XR ---
EXAMINATION TYPE: XR chest 1V portable DATE OF EXAM: 12/09/2023 COMPARISON: 12/08/2023 HISTORY: Shortness of breath TECHNIQUE: Single frontal view of the chest is obtained. FINDINGS: Bilateral diffuse airspace disease with bilateral chest tubes. Small left-sided hydropneum othorax stable. Small right-sided pleural effusion stable. Tracheostomy tube and left-sided central l ine stable. A right-sided PICC line stable. Heart size normal. Osseous structures demonstrate degener ative changes. Surgical changes left shoulder. IMPRESSION: 1. Diffuse bilateral pleural-parenchymal changes stable. Small left hydropneumothoraces are stable.
--- NOTE | 2023-12-09 07:52 | P.PN ---
Subjective Progress Note Date: 12/08/23 Principal diagnosis: Reason for follow-up is sepsis MRSA pneumonia bacteremia and empyema Patient is a 43-year-old female past medical history significant for hypertension fibromyalgia asthma reflux seizure disorder currently incarcerated and presented [facility] the [facility] for evaluation of increasing shortness of breath and chest pain, patient did have evidence of bilateral hydropneumothorax requiring bilateral chest tube placement and did have a positive blood culture with MRSA. Patient is status post tracheostomy completed on 12/03/2023. On today's evaluation that is 12/08/2023,the patient did have a low-grade fever of 100.1 F this morning, patient is on the vent through the trach FiO2 of 35%, the patient is hemodynamically stable not requiring any pressor support patient did have diarrhea and fecal management system but no worsening cough with reported possible plan for removal of right-sided chest tube as reported by the nursing staff. The patient white count is 13.5, creatinine 0.39 Objective - Vital Signs Vital signs: Vital Signs Temp 100.1 F H 12/08/23 08:00 Pulse 92 12/08/23 12:02 Resp 32 H 12/08/23 10:00 BP 110/63 12/08/23 10:00 Pulse Ox 96 12/08/23 10:00 FiO2 50 12/08/23 12:00 Intake & Output 12/07/23 12/08/23 12/08/23 18:59 06:59 18:59 Intake Total 2186.388 7645.376 0713.083 Output Total 6105 6814 8015 Balance -3918.612 -389.756 -1277.917 Weight 128.7 kg 128.7 kg Intake: IV 1220 590 690 0.9 @ KVO 120 90 90 Anidulafungin 100 mg In 100 100 Sodium Chloride 0.9% 100 ml @ 84 mls/hr IVPB DAILY [facility] Rx#:[id number] Vancomycin 2,000 mg In 1000 500 500 Sodium Chloride 0.9% 500 ml 500 ml @ 167 mls/hr IVPB Q8H [facility] Rx#: [id number] Intake, IV Titration 368.388 298.244 375.083 Amount propofoL 1,000 mg In 368.388 298.244 375.083 Empty Bag 1 bag @ 15 MCG/ KG/MIN 8.981 mls/hr IV . Q11H9M [facility] Rx#:[id number] Tube Feeding 418 418 152 Other 180 90 30 Output: Chest Tube Drainage 20 36 0 Chest Tube 0 30 0 Chest Tube Right 20 6 0 Urine 5810 1750 2525 Stool 275 Other: Voiding Method Indwelling Catheter Indwelling Catheter Indwelling Catheter ABP, PAP, CO, CI - Last Documented Arterial Blood Pressure 106/58 - Exam GENERAL DESCRIPTION: Middle-aged female intubated through the trach RESPIRATORY SYSTEM: Unlabored breathing , coarse breath sounds bilaterally HEART: S1 S2 regular rate and rhythm , ABDOMEN: Soft , no tenderness EXTREMITIES: No edema feet - Labs CBC & Chem 7: 12/09/23 05:15 12/09/23 05:15 Labs: Abnormal Lab Results - Last 24 Hours (Table) 12/08/23 12/08/23 12/08/23 Range/Units 05:33 05:37 05:37 WBC 13.5 H (3.8-10.6) k/uL RBC 2.45 L (3.80-5.40) m/uL Hgb 7.2 L (11.4-16.0) gm/dL Hct 22.8 L (34.0-46.0) % Neutrophils # 11.3 H (1.3-7.7) k/uL ABG pH 7.54 H (7.35-7.45) ABG pO2 65 L (83-108) mmHg ABG HCO3 36 H (21-25) mmol/L ABG Total CO2 38 H (19-24) mmol/L ABG O2 Saturation (94-97) % Carbon Dioxide 33 H (22-30) mmol/L Creatinine 0.39 L (0.52-1.04) mg/dL Calcium 7.8 L (8.4-10.2) mg/dL 12/08/23 Range/Units 09:27 WBC (3.8-10.6) k/uL RBC (3.80-5.40) m/uL Hgb (11.4-16.0) gm/dL Hct (34.0-46.0) % Neutrophils # (1.3-7.7) k/uL ABG pH 7.49 H (7.35-7.45) ABG pO2 (83-108) mmHg ABG HCO3 34 H (21-25) mmol/L ABG Total CO2 35 H (19-24) mmol/L ABG O2 Saturation 98.6 H (94-97) % Carbon Dioxide (22-30) mmol/L Creatinine (0.52-1.04) mg/dL Calcium (8.4-10.2) mg/dL Assessment and Plan (1) Empyema Current Visit: Yes Status: Acute Code(s): J86.9 - PYOTHORAX WITHOUT FISTULA SNOMED Code(s): 443445849 (2) MRSA bacteremia Current Visit: Yes Status: Acute Code(s): R78.81 - BACTEREMIA; B95.62 - METHICILLIN RESIS STAPH INFCT CAUSING DISEASES [facility]SD [facility] SNOMED Code(s): 27435367342159044 (3) Pneumonia Current Visit: Yes Status: Acute Code(s): J18.9 - PNEUMONIA, UNSPECIFIED ORGANISM SNOMED Code(s): 742086207 (4) Pneumothorax Current Visit: Yes Status: Acute Code(s): J93.9 - PNEUMOTHORAX, UNSPECIFIED SNOMED Code(s): 59221226 Plan: 1patient presented to hospital with sepsis in this patient who did have a fever tachycardia elevated white count source is pulmonary in this patient noted evidence of bilateral pneumothorax and effusion with question of complicated pneumonia/empyema keeping in mind the patient is from local retirement will need to cover for resistant gram-positive such as MRSA and gram-negative pathogen 2-patient blood sputum and pleural fluid culture with MRSA 3-Patient did clear her bacteremia as the blood culture from 11/26/2023 as well as 11/27/2023 has been negative patient did have a PICC line placement on 12/04/2023 4-patient did have a low-grade fever and white count is slightly up today that will be monitored closely for now continue with the vancomycin however if any further fever or worsening of the white count will benefit from a CT of the chest, 5-patient with oropharyngeal candidiasis patient currently being treated with Eraxis 6-significant diarrhea antibiotic associated stool for C. difficile negative continue with symptomatic treatment Dictation was produced using Peak dictation software. please excuse any grammatical, word or spelling errors. Time with Patient: Less than 30
[2023-12-09] MEDS: FLUCONAZOLE 100 MG TAB PO SCH (08:39)
--- NOTE | 2023-12-09 09:26 | P.PN ---
Subjective Progress Note Date: 12/09/23 Principal diagnosis: Acute hypoxic respiratory failure requiring mechanical ventilation, bilateral hydropneumothoraces, empyema, status post bilateral chest tube insertion, septic shock. Past medical history significant for MS, obesity, migraines, seizures, fibromyalgia, hypertension, asthma, anxiety/depression/bipolar disorder, polysubstance abuse. POD #6 placement of tracheostomy and PEG tube by Dr. Johnson. POD #5 placement of peripherally inserted central catheter under fluoroscopic guidance using chest x-rays by Dr. Beth. Patient was seen and examined in follow-up today December 09, 2023 at her bedside in the intensive care unit. Patient remains sedated on propofol drip at 65 mcg/kg/min, tracheostomy tube remains midline and is supported on mechanical ventilation. Oxygen saturations are 94% on current mechanical ventilator settings, assist-control 24, tidal volume 375, FiO2 50% and PEEP of 5. ABG results this morning show a pH of 7.40, pCO2 48, pO2 85, HCO3 30, oxygen saturations 97.2 and base excess 4.6. She remains hemodynamically stable and is currently on no inotropic or pressor support. Left pleural chest tube was removed without incident yesterday. Right pleural chest tube remains in place to low continuous wall suction -20 cm H2O. No air leak is present. No drainage in the last 24 hours. Chest x-ray and laboratory results were reviewed. She was given a dose of Diamox yesterday x 1 urine output in the last 8 hours is 2.6 L. She remains on vancomycin for antibiotic coverage, Tmax temperature in the last 24 hours was 100.7 F. Objective - Vital Signs Vital signs: Vital Signs Temp 100.5 F H 12/09/23 08:00 Pulse 113 H 12/09/23 08:55 Resp 45 H 12/09/23 08:00 BP 119/75 12/09/23 08:00 Pulse Ox 96 12/09/23 08:00 FiO2 50 12/09/23 08:52 Intake & Output 12/08/23 12/09/23 12/09/23 18:59 06:59 18:59 Intake Total 2009.398 1216.444 96 Output Total 3720 3410 630 Balance -1710.602 -2193.556 -534 Weight 128.7 kg 128.7 kg Intake: IV 720 277 20 0.9 @ KVO 120 110 20 Anidulafungin 100 mg In 100 Sodium Chloride 0.9% 100 ml @ 84 mls/hr IVPB DAILY [facility] Rx#:[id number] Vancomycin 2,000 mg In 500 167 Sodium Chloride 0.9% 500 ml 500 ml @ 167 mls/hr IVPB Q8H [facility] Rx#: [id number] Intake, IV Titration 963.398 393.444 Amount Vancomycin 2,000 mg In 500 Sodium Chloride 0.9% 500 ml 500 ml @ 167 mls/hr IVPB Q8H [facility] Rx#: [id number] propofoL 1,000 mg In 463.398 393.444 Empty Bag 1 bag @ 15 MCG/ KG/MIN 8.981 mls/hr IV . Q11H9M [facility] Rx#:[id number] Tube Feeding 266 456 76 Other 60 90 Output: Chest Tube Drainage 20 10 0 Chest Tube 0 Chest Tube Right 20 10 0 Urine 3700 3300 630 Stool 100 Other: Voiding Method Indwelling Catheter Indwelling Catheter ABP, PAP, CO, CI - Last Documented Arterial Blood Pressure 106/58 - Exam CONSTITUTIONAL: Mechanical ventilation, laying in bed in the intensive care unit, opens eyes with verbal stimuli. RESPIRATORY: Lungs sounds diminished bilaterally. Respirations symmetrical, nonlabored with mechanical ventilator support, current settings assist-control mode, FiO2 50%, tidal volume 375, PEEP 5, respiratory rate 24. CARDIOVASCULAR: S1, S2 present. Regular rate and rhythm, bedside telemetry showing normal sinus sinus tachycardia heart rate 110 bpm. Palpable peripheral pulses bilaterally. Generalized trace edema present. No calf pain or tenderness noted. SCDs present. GASTROINTESTINAL: Abdomen soft, nontender, nondistended. Active bowel sounds present 4 quadrants. PEG tube present with tube feedings infusing at goal rate. GENITOURINARY: Beth present draining clear, yellow urine. Output 2680 mL in the last 8 hours. INTEGUMENTARY: Skin is warm and dry, no clubbing or cyanosis is present. Dressings to her bilateral chest tube insertion sites clean dry and intact. NEUROLOGIC: Mechanical ventilation, unable to accurately assess at this time. INVASIVE LINES AND TUBES: Right pleural chest tubes present and connected to wall suction, no air leaks present this morning. Right pleural chest tube with no drainage in the last 24 hours. Right arm PICC line. - Allied health notes Allied health notes reviewed: nursing - Labs CBC & Chem 7: 12/09/23 05:15 12/09/23 05:15 Labs: Abnormal Lab Results - Last 24 Hours (Table) 12/08/23 12/09/23 12/09/23 Range/Units 09:27 05:04 05:15 WBC 16.3 H (3.8-10.6) k/uL RBC 2.74 L (3.80-5.40) m/uL Hgb 7.9 L (11.4-16.0) gm/dL Hct 26.1 L (34.0-46.0) % MCHC 30.3 L (31.0-37.0) g/dL Neutrophils # 13.5 H (1.3-7.7) k/uL Eosinophils # 0.8 H (0-0.7) k/uL ABG pH 7.49 H (7.35-7.45) ABG pCO2 48 H (35-45) mmHg ABG HCO3 34 H 30 H (21-25) mmol/L ABG Total CO2 35 H 31 H (19-24) mmol/L ABG O2 Saturation 98.6 H 97.2 H (94-97) % Chloride (98-107) mmol/L Carbon Dioxide (22-30) mmol/L Creatinine (0.52-1.04) mg/dL Glucose (74-99) mg/dL POC Glucose (mg/dL) (70-110) mg/dL Calcium (8.4-10.2) mg/dL 12/09/23 12/09/23 Range/Units 05:15 05:18 WBC (3.8-10.6) k/uL RBC (3.80-5.40) m/uL Hgb (11.4-16.0) gm/dL Hct (34.0-46.0) % MCHC (31.0-37.0) g/dL Neutrophils # (1.3-7.7) k/uL Eosinophils # (0-0.7) k/uL ABG pH (7.35-7.45) ABG pCO2 (35-45) mmHg ABG HCO3 (21-25) mmol/L ABG Total CO2 (19-24) mmol/L ABG O2 Saturation (94-97) % Chloride 108 H (98-107) mmol/L Carbon Dioxide 31 H (22-30) mmol/L Creatinine 0.43 L (0.52-1.04) mg/dL Glucose 109 H (74-99) mg/dL POC Glucose (mg/dL) 114 H (70-110) mg/dL Calcium 8.1 L (8.4-10.2) mg/dL - Imaging and Cardiology Chest x-ray: report reviewed, image reviewed Assessment and Plan Assessment: Acute hypoxic respiratory failure requiring mechanical ventilation, status post trach and PEG placement Bilateral hydropneumothoraces, empyema, status post bilateral chest tube insertion Septic shock, requiring IV vasopressors, MRSA in her blood, pleural fluid, sputum and nasal swab, currently on vancomycin and Eraxis for antibiotic coverage Chest pain, shortness of breath present on admission secondary to above History of MS Obesity Migraines Seizures Fibromyalgia Hypertension Asthma Anxiety/depression/bipolar disorder Polysubstance abuse Plan: Keep right pleural chest tube in place, removed from low continuous wall suction in place to waterseal. Continue to record output. Ventilator management per special education associate. Antibiotics per infectious disease. Medical management of other comorbidities per internal medicine, pulmonology, ID. More recommendations to follow based on patient's clinical course. Time with Patient: Less than 30
--- NOTE | 2023-12-09 11:48 | P.PN ---
Subjective Progress Note Date: 12/09/23 CHIEF COMPLAINT: Respiratory failure HISTORY OF PRESENT ILLNESS: Patient remains in the ICU on mechanical ventilation. She is status post tracheostomy and PEG tube placement. She has a new tube feeding pump. Patient has been tolerating tube feeds. Tube feeds are at 38 mL/h. Low-grade fevers. Mildly tachycardic. wbc 16 PHYSICAL EXAM: VITAL SIGNS: Reviewed. GENERAL: no acute distress. HEENT: Tracheostomy site clean dry and intact ABDOMEN: Soft. Nondistended. Nontender. PEG tube site clean dry and intact NEUROLOGIC: awake ASSESSMENT: 1. Severe protein calorie malnutrition 2. Respiratory failure with MRSA pneumonia, empyema and hydropneumothorax status post chest tube placement bilaterally PLAN: -Continue tube feeds -Continue ICU management -Continue supportive care Physician Shipping Order Clerk note has been reviewed by physician. Signing provider agrees with the documented findings, assessment, and plan of care. Objective - Vital Signs Vital signs: Vital Signs Temp 100.5 F H 12/09/23 08:00 Pulse 121 H 12/09/23 11:00 Resp 16 12/09/23 11:00 BP 124/77 12/09/23 11:00 Pulse Ox 94 L 12/09/23 11:00 FiO2 50 12/09/23 09:00 Intake & Output 12/08/23 12/09/23 12/09/23 18:59 06:59 18:59 Intake Total 2009.398 1216.444 840.349 Output Total 3720 3410 1255 Balance -1710.602 -2193.556 -414.651 Weight 128.7 kg 128.7 kg Intake: IV 720 277 550 0.9 @ KVO 120 110 50 Anidulafungin 100 mg In 100 Sodium Chloride 0.9% 100 ml @ 84 mls/hr IVPB DAILY [facility] Rx#:[id number] Vancomycin 2,000 mg In 500 167 500 Sodium Chloride 0.9% 500 ml 500 ml @ 167 mls/hr IVPB Q8H [facility] Rx#: [id number] Intake, IV Titration 963.398 393.444 100.349 Amount Vancomycin 2,000 mg In 500 Sodium Chloride 0.9% 500 ml 500 ml @ 167 mls/hr IVPB Q8H [facility] Rx#: [id number] propofoL 1,000 mg In 463.398 393.444 100.349 Empty Bag 1 bag @ 15 MCG/ KG/MIN 8.981 mls/hr IV . Q11H9M [facility] Rx#:[id number] Tube Feeding 266 456 190 Other 60 90 Output: Chest Tube Drainage 20 10 0 Chest Tube 0 Chest Tube Right 20 10 0 Urine 3700 3300 1255 Stool 100 Other: Voiding Method Indwelling Catheter Indwelling Catheter ABP, PAP, CO, CI - Last Documented Arterial Blood Pressure 106/58 - Labs CBC & Chem 7: 12/09/23 05:15 12/09/23 05:15 Labs: Abnormal Lab Results - Last 24 Hours (Table) 12/09/23 12/09/23 12/09/23 Range/Units 05:04 05:15 05:15 WBC 16.3 H (3.8-10.6) k/uL RBC 2.74 L (3.80-5.40) m/uL Hgb 7.9 L (11.4-16.0) gm/dL Hct 26.1 L (34.0-46.0) % MCHC 30.3 L (31.0-37.0) g/dL Neutrophils # 13.5 H (1.3-7.7) k/uL Eosinophils # 0.8 H (0-0.7) k/uL ABG pCO2 48 H (35-45) mmHg ABG HCO3 30 H (21-25) mmol/L ABG Total CO2 31 H (19-24) mmol/L ABG O2 Saturation 97.2 H (94-97) % Chloride 108 H (98-107) mmol/L Carbon Dioxide 31 H (22-30) mmol/L Creatinine 0.43 L (0.52-1.04) mg/dL Glucose 109 H (74-99) mg/dL POC Glucose (mg/dL) (70-110) mg/dL Calcium 8.1 L (8.4-10.2) mg/dL 12/09/23 Range/Units 05:18 WBC (3.8-10.6) k/uL RBC (3.80-5.40) m/uL Hgb (11.4-16.0) gm/dL Hct (34.0-46.0) % MCHC (31.0-37.0) g/dL Neutrophils # (1.3-7.7) k/uL Eosinophils # (0-0.7) k/uL ABG pCO2 (35-45) mmHg ABG HCO3 (21-25) mmol/L ABG Total CO2 (19-24) mmol/L ABG O2 Saturation (94-97) % Chloride (98-107) mmol/L Carbon Dioxide (22-30) mmol/L Creatinine (0.52-1.04) mg/dL Glucose (74-99) mg/dL POC Glucose (mg/dL) 114 H (70-110) mg/dL Calcium (8.4-10.2) mg/dL
[2023-12-09] MEDS: SCOPOLAMINE 1 MG/72 HR PATCH TRANSDERM SCH (12:07)
[2023-12-09 12:15] LABS: Glucose,Whole Blood 116 mg/dL (70-110)
--- NOTE | 2023-12-09 12:30 | P.PN ---
Subjective Progress Note Date: 12/09/23 43 year old female evaluated today in the intensive care unit. Patient is currently sedated and remains on the mechanical ventilator. Presents from the skilled nursing with shortness of breath and cough. Patient found to have bilateral pneumothorax and continues currently with right and left sided chest tubes. Ches t xray today reveals continued diffuse bilateral airspace disease with extensive pleural parenchymal opacity. Continues on IV vancomycin due to MRSA bacteremia. White blood cell count today 24.2, hgb 7.1. Sodium 136, potassium 3.4. Remains on IV fentanyl, IV versed, IV propofol. Being considered from tracheostomy and PEG tube placement. Remains febrile with T-max 101.4 overnight. Unable to complete a review of systems as patient is currently intubated and sedated on the mechanical ventilator 12/05/2023 Patient is seen and evaluated in room at bedside; remains on the mechanical ventilator. -- Blood gases show pO2 75, pCO2 49, pH is 7.44. Labs include a white count of 16.7, hemoglobin 7.2, hematocrit 22.3, and a platelet count of 277,000. Sodium 138, potassium 3.6, chlorides 105, CO2 28, BUN 8, creatinine 0.35. The glucose is 123. The calcium is 7.3. Gram stain, and blood cultures, show evidence of methicillin-resistant Staph aureus. Chest x-ray shows a midline tracheostomy tube. The NG tube has been removed. The patient continues on vancomycin and Eraxis. 12/06/2023 Patient is seen and evaluated in room at bedside; remains on the ventilator. She is on volume assist-control; patient has been able to be weaned off of fenta nyl - Blood gases show pO2 of 68, pCO2 48, pH is 7.51. White count 12.8, hemoglobin 7, hematocrit 23.1, and platelet count 282,000. Sodium 138, potassium 3.2, chlorides 100, CO2 37, BUN 6, creatinine 0.33. Glucose is 126. Albumin 1.9. All her previous cultures are showing evidence of methicillin-resistant Staph aureus. Chest x-ray shows diffuse bilateral airspace disease. Patient remains on vancomycin, and Eraxis for suspected fungemia. 12/07/2023 Patient is seen and evaluated in room at bedside; remains on the ventilator. She is on volume assist-control, rate 24, tidal volume 450, FiO2 50%, PEEP of 5. -- Blood gases show pO2 74, pCO2 47, pH is 7.51. The patient is getting lactated Ringer's at 20 cc an hour, vital high-protein at 38 cc an hour, which is goal, and propofol at 55 mcg/kg/min. -- patient CV Lasix 60 mg IV push per electrician helper powerhouse recommendation, and she continues on vancomycin and Eraxis. Bilateral chest tubes are still in place. White count 12.5, hemoglobin 7.1, hematocrit 22.4, platelet count was normal. Sodium 139, potassium 3.4, chlorides 102, CO2 37, BUN 7, creatinine 0.37. Glucose 119. Cultures all along have been positive for methicillin-resistant Staph aureus. Chest x-ray shows bilateral opacities, which are quite extensive. 12/08/23 : Dr Isaac assumed care Patient seen and evaluated in medical ICU patient remains intubated, on 50% FiO2, blood work reviewed, CBC showed WBC of 13.5 hemoglobin of 7.2 platelet count of 302. Arterial blood gas showed pH 7.49 pCO2 of 44 pO2 of 91, serum c hemistry shows sodium 139 potassium 3.7 BUN 7 creatinine 0.39, stool C. difficile was negative. Patient continues to remain on antibiotic coverage managed by infectious disease, patient is s/p tracheostomy and PEG tube placement, followed by medical ICU team plan for removal of chest tube today by thoracic surgery. 12/09/23 Patient seen and evaluated at bedside, patient remains intubated on mechanical ventilation, followed by thoracic surgery, patient continues sedated with propofol, right pleural chest tube remains in place, patient had left pleural chest tube removed yesterday. Continue antibiotics, continue to remain critically ill. WBC 16.3 trending up, hemoglobin 7.9 arterial blood gas reviewed. Spontaneous breathing trial per pulmonary medicine GENERAL: The patient is alert and oriented x 0, Intubated and sedated HEENT: . Normocephalic CARDIOVASCULAR: S1 and S2 present.. PULMONARY: Chest tube in place right lung, decreased breath sounds bilaterally rhonchi audible ABDOMEN: Soft, obese. PEG tube noted MUSCULOSKELETAL: No joint swelling or deformity. EXTREMITIES: No cyanosis, clubbing, or pedal edema. NEUROLOGICAL: Unable to asses pt is sedated Assessment and plan * Acute hypoxic respiratory failure requiring mechanical ventilation secondary to acute bilateral pneumonia, status post PEG and trach placement on 12/03/2023. * Acute bilateral pneumonia complicated by bilateral pneumothoraces. * Acute bilateral empyema, post bilateral chest tube insertion with purulent material draining from both lungs. * MRSA bacteremia * Anemia with iron studies revealing underlying iron deficiency. Status post 2 units PRBC on 12/02/2023 * septic shock * Morbid obesity * Polysubstance abuse * Hyponatremia * Transaminitis * History of seizure disorder * Consultation obtained from medical ICU, infectious disease, thoracic surgery, surgery team * In regards to respiratory failure continue vent management per medical ICU team, patient is s/p tracheostomy * Regards to sepsis, blood culture positive for MRSA, repeat blood cultures 11/25, no growth till date continue IV vancomycin per infectious disease patient is weaned off pressor support * In regards to hydropneumothorax, chest tube management per thoracic surgery, * In regards to anemia continue to follow-up on H&H, s/p 2 unit packed RBC transfusion on 12/07/2023 * Patient continues to remain critically ill, prognosis remains extremely guarded Objective - Vital Signs Vital signs: Vital Signs Temp 100.5 F H 12/09/23 08:00 Pulse 114 H 12/09/23 09:00 Resp 33 H 12/09/23 09:00 BP 114/78 12/09/23 09:00 Pulse Ox 95 12/09/23 09:00 FiO2 50 12/09/23 09:00 Intake & Output 12/08/23 12/09/23 12/09/23 18:59 06:59 18:59 Intake Total 2009.398 1216.444 744 Output Total 3720 3410 940 Balance -1710.602 -2193.556 -196 Weight 128.7 kg 128.7 kg Intake: IV 720 277 530 0.9 @ KVO 120 110 30 Anidulafungin 100 mg In 100 Sodium Chloride 0.9% 100 ml @ 84 mls/hr IVPB DAILY [facility] Rx#:[id number] Vancomycin 2,000 mg In 500 167 500 Sodium Chloride 0.9% 500 ml 500 ml @ 167 mls/hr IVPB Q8H [facility] Rx#: [id number] Intake, IV Titration 963.398 393.444 100 Amount Vancomycin 2,000 mg In 500 Sodium Chloride 0.9% 500 ml 500 ml @ 167 mls/hr IVPB Q8H [facility] Rx#: [id number] propofoL 1,000 mg In 463.398 393.444 100 Empty Bag 1 bag @ 15 MCG/ KG/MIN 8.981 mls/hr IV . Q11H9M [facility] Rx#:[id number] Tube Feeding 266 456 114 Other 60 90 Output: Chest Tube Drainage 20 10 0 Chest Tube 0 Chest Tube Right 20 10 0 Urine 3700 3300 940 Stool 100 Other: Voiding Method Indwelling Catheter Indwelling Catheter ABP, PAP, CO, CI - Last Documented Arterial Blood Pressure 106/58 - Labs CBC & Chem 7: 12/09/23 05:15 12/09/23 05:15 Labs: Abnormal Lab Results - Last 24 Hours (Table) 12/09/23 12/09/23 12/09/23 Range/Units 05:04 05:15 05:15 WBC 16.3 H (3.8-10.6) k/uL RBC 2.74 L (3.80-5.40) m/uL Hgb 7.9 L (11.4-16.0) gm/dL Hct 26.1 L (34.0-46.0) % MCHC 30.3 L (31.0-37.0) g/dL Neutrophils # 13.5 H (1.3-7.7) k/uL Eosinophils # 0.8 H (0-0.7) k/uL ABG pCO2 48 H (35-45) mmHg ABG HCO3 30 H (21-25) mmol/L ABG Total CO2 31 H (19-24) mmol/L ABG O2 Saturation 97.2 H (94-97) % Chloride 108 H (98-107) mmol/L Carbon Dioxide 31 H (22-30) mmol/L Creatinine 0.43 L (0.52-1.04) mg/dL Glucose 109 H (74-99) mg/dL POC Glucose (mg/dL) (70-110) mg/dL Calcium 8.1 L (8.4-10.2) mg/dL 12/09/23 Range/Units 05:18 WBC (3.8-10.6) k/uL RBC (3.80-5.40) m/uL Hgb (11.4-16.0) gm/dL Hct (34.0-46.0) % MCHC (31.0-37.0) g/dL Neutrophils # (1.3-7.7) k/uL Eosinophils # (0-0.7) k/uL ABG pCO2 (35-45) mmHg ABG HCO3 (21-25) mmol/L ABG Total CO2 (19-24) mmol/L ABG O2 Saturation (94-97) % Chloride (98-107) mmol/L Carbon Dioxide (22-30) mmol/L Creatinine (0.52-1.04) mg/dL Glucose (74-99) mg/dL POC Glucose (mg/dL) 114 H (70-110) mg/dL Calcium (8.4-10.2) mg/dL
--- NOTE | 2023-12-09 14:28 | P.PN ---
Subjective Progress Note Date: 12/09/23 On today's evaluation of 12/08/2023, the patient is being seen for a follow-up. This morning, the patient is still sedated with propofol at 55 mcg/kg/min. She seems to be arousable and she withdraws to painful stimulation. She has profound weakness in all 4 extremities. The patient remains on the mechanical ventilator. She has never worn a tracheostomy tube that was inserted for prolonged respiratory failure and the patient has a Bivona #8. She is currently on assist-control mode of mechanical ventilation at a rate of 24, tidal volume of 450, FiO2 of 50% with a PEEP of 5. Pulmonary artery pressures 43 peak and 31 static airway pressure. The blood gas from today shows a pH of 7.54 with a pCO2 of 43 and pO2 of 65. The patient's right-sided chest tube has drained about 80 cc over the past 24 hours and no output from the left-sided chest tube. She has a fluid balance of -4.3 L over the past 24 hours as the patient was given diuretics. The rest of the labs from today shows a WBC count of 13.5 with a hemoglobin of 7.2 and a platelet count of 302. Sodium is at 139, potassium is at 3.7, BUN is at 7 with a creatinine of 0.39. Blood sugar is adequately controlled for now. The patient is receiving enteral feeding for nutritional support. She is currently afebrile. No pressors on board. 12/09/2023, I am seeing the patient for a follow-up. This morning, the patient remains on propofol at 65 mcg/kg/min. She is arousable and she is in the process of getting a sedation holiday at this point. The patient remains on the mechanical ventilator. The patient has a tracheostomy tube in place. Left- sided chest tube was removed. Right-sided chest tube still in place with a output being minimal at this point in time and the chest was attached to waterseal. Meanwhile, the repeat chest x-ray still showing bilateral areas of consolidation and cavitation. No clear indication of underlying pneumothorax. The patient is on assist-control mode at rate of 24, tidal volume of 375 with a PEEP of 5 and FiO2 of 50%. pH is at 7.4 with a pCO2 of 48 and pO2 of 85. The patient is on vital HP at a rate of 38 cc an hour. The patient is having liquidy diarrhea and the patient has a fecal management system in place. Stool for C. difficile has been essentially negative. She is afebrile. She is hemodynamically stable. On today's blood work, the WBC count is at 16.3 with a hemoglobin 7.9 and a platelet count of 380. BUN is at 7 with a creatinine of 0.4 and sodium levels of 141. The patient remains on vancomycin. The patient is also on Diflucan 100 mg p.o. daily. The patient on Lovenox for DVT prophylaxis. Objective - Vital Signs Vital signs: Vital Signs Temp 100.5 F H 12/09/23 08:00 Pulse 113 H 12/09/23 08:55 Resp 45 H 12/09/23 08:00 BP 119/75 12/09/23 08:00 Pulse Ox 96 12/09/23 08:00 FiO2 50 12/09/23 08:52 Intake & Output 12/08/23 12/09/23 12/09/23 18:59 06:59 18:59 Intake Total 2009.398 1216.444 96 Output Total 3720 3410 630 Balance -1710.602 -2193.556 -534 Weight 128.7 kg 128.7 kg Intake: IV 720 277 20 0.9 @ KVO 120 110 20 Anidulafungin 100 mg In 100 Sodium Chloride 0.9% 100 ml @ 84 mls/hr IVPB DAILY [facility] Rx#:[id number] Vancomycin 2,000 mg In 500 167 Sodium Chloride 0.9% 500 ml 500 ml @ 167 mls/hr IVPB Q8H [facility] Rx#: [id number] Intake, IV Titration 963.398 393.444 Amount Vancomycin 2,000 mg In 500 Sodium Chloride 0.9% 500 ml 500 ml @ 167 mls/hr IVPB Q8H [facility] Rx#: [id number] propofoL 1,000 mg In 463.398 393.444 Empty Bag 1 bag @ 15 MCG/ KG/MIN 8.981 mls/hr IV . Q11H9M [facility] Rx#:[id number] Tube Feeding 266 456 76 Other 60 90 Output: Chest Tube Drainage 20 10 0 Chest Tube 0 Chest Tube Right 20 10 0 Urine 3700 3300 630 Stool 100 Other: Voiding Method Indwelling Catheter Indwelling Catheter ABP, PAP, CO, CI - Last Documented Arterial Blood Pressure 106/58 - Exam CONSTITUTIONAL: Mechanical ventilation, laying in bed in the intensive care unit, opens eyes with verbal stimuli. RESPIRATORY: Lungs sounds diminished bilaterally. Respirations symmetrical, nonlabored with mechanical ventilator support, current settings assist-control mode, FiO2 50%, tidal volume 450, PEEP 5, respiratory rate 24. CARDIOVASCULAR: S1, S2 present. Regular rate and rhythm, bedside telemetry showing normal sinus rhythm heart rate 90 bpm. Palpable peripheral pulses bilaterally. Generalized trace edema present. No calf pain or tenderness noted. SCDs present. GASTROINTESTINAL: Abdomen soft, nontender, nondistended. Active bowel sounds present 4 quadrants. PEG tube present with tube feedings infusing at goal rate. GENITOURINARY: Beth present draining clear, yellow urine. INTEGUMENTARY: Skin is warm and dry, no clubbing or cyanosis is present. Dressings to her bilateral chest tube insertion sites clean dry and intact. NEUROLOGIC: Mechanical ventilation, unable to accurately assess at this time. INVASIVE LINES AND TUBES: right pleural chest tubes present and connected to waterseal. - Labs CBC & Chem 7: 12/09/23 05:15 12/09/23 05:15 Labs: Abnormal Lab Results - Last 24 Hours (Table) 12/08/23 12/09/23 12/09/23 Range/Units 09:27 05:04 05:15 WBC 16.3 H (3.8-10.6) k/uL RBC 2.74 L (3.80-5.40) m/uL Hgb 7.9 L (11.4-16.0) gm/dL Hct 26.1 L (34.0-46.0) % MCHC 30.3 L (31.0-37.0) g/dL Neutrophils # 13.5 H (1.3-7.7) k/uL Eosinophils # 0.8 H (0-0.7) k/uL ABG pH 7.49 H (7.35-7.45) ABG pCO2 48 H (35-45) mmHg ABG HCO3 34 H 30 H (21-25) mmol/L ABG Total CO2 35 H 31 H (19-24) mmol/L ABG O2 Saturation 98.6 H 97.2 H (94-97) % Chloride (98-107) mmol/L Carbon Dioxide (22-30) mmol/L Creatinine (0.52-1.04) mg/dL Glucose (74-99) mg/dL POC Glucose (mg/dL) (70-110) mg/dL Calcium (8.4-10.2) mg/dL 12/09/23 12/09/23 Range/Units 05:15 05:18 WBC (3.8-10.6) k/uL RBC (3.80-5.40) m/uL Hgb (11.4-16.0) gm/dL Hct (34.0-46.0) % MCHC (31.0-37.0) g/dL Neutrophils # (1.3-7.7) k/uL Eosinophils # (0-0.7) k/uL ABG pH (7.35-7.45) ABG pCO2 (35-45) mmHg ABG HCO3 (21-25) mmol/L ABG Total CO2 (19-24) mmol/L ABG O2 Saturation (94-97) % Chloride 108 H (98-107) mmol/L Carbon Dioxide 31 H (22-30) mmol/L Creatinine 0.43 L (0.52-1.04) mg/dL Glucose 109 H (74-99) mg/dL POC Glucose (mg/dL) 114 H (70-110) mg/dL Calcium 8.1 L (8.4-10.2) mg/dL Assessment and Plan Plan: Acute hypoxic respiratory failure, currently intubated on mechanical ventilator, the patient has prolonged ventilator dependent respiratory failure and the patient was given tracheostomy tube for ventilator support and the patient currently has a Bivona #8. She remains on mechanical ventilator on assist- control mode. Adequate oxygenation on ventilation. Blood gases were noted. Chest x-ray was noted. Acute bilateral pneumonia complicated by bilateral pneumothoraces. The patient is post bilateral chest tube insertion. The patient was found to have bilateral empyema requiring bilateral chest tube insertion. No evidence of any air leak and the most recent CAT scan of the chest that was done on this patient showed some minimal residual fluid/collection in the lungs bilaterally. Left-sided chest tube was removed yesterday. Right-sided chest tube is in place and output is minimal at this point in time. Remains on vancomycin. Left-sided chest tube was removed. Acute bilateral empyema, Acute bilateral staphylococcal pneumonia with secondary cavitation and complication with bilateral pneumothoraces. The patient remains on vancomycin. Vancomycin trough on 12/07/2023 is 20. 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 Stool for send it has been negative and the patient is significantly feeding for nutritional support. Plan Continue the ventilator support I am going to try the patient on a pressure control mode of mechanical ventilation. I put her on a pressure control of 25 with a PEEP of 5 and an inspiratory time of 1 ms. Will obtain a follow-up blood gas Repeat the blood gas following this above-mentioned changes No need for sedatives for now Propofol will be gradually weaned off and discontinued and will assess underlying mental status. Left-sided chest tube has been removed. Will keep right-sided chest tube in place Will continue monitoring the progress Enteral feeding for nutritional support IV vancomycin Oral Diflucan Follow-up cultures have been negative Transthoracic echocardiogram shows no evidence of any vegetation Check serum cortisol level Put the patient on Lovenox 40 mg subcu for DVT prophylaxis Will continue to follow make further recommendations based on her progress. This evaluation was done more than 45 minutes excluding time to do any procedures. Family will be informed. Time with Patient: Greater than 30
[2023-12-09] MEDS ORDERED: ZINC OXIDE PASTE (Z-GUARD) 1 APPLIC TOPICAL PRN (15:15)
[2023-12-09 17:50] LABS: Glucose,Whole Blood 108 mg/dL (70-110)
[2023-12-10 00:22] LABS: Glucose,Whole Blood 103 mg/dL (70-110)
[2023-12-10] MEDS: POTASSIUM BICARBONATE/CIT AC 20 MEQ TABLET.EFF NG-TUBE SCH ×2 (02:10→07:45)
[2023-12-10 04:59] LABS: Allen Test Performed? Yes
[2023-12-10 05:12] LABS: ABG Base Excess 4.7 mmol/L; ABG HCO3 29 mmol/L (21-25); ABG Oxygen Saturation 97.8 % (94-97); ABG PCO2 42 mmHg (35-45); ABG PH 7.45 (7.35-7.45); ABG PO2 88 mmHg (83-108); ABG TCO2 30 mmol/L (19-24)
[2023-12-10 05:16] LABS: Basophils # (A) 0.1 k/uL (0-0.2); Basophils % (A) 0 %; Eosinophils # (A) 0.6 k/uL (0-0.7); Eosinophils % (A) 4 %; HCT 22.3 % (34.0-46.0); Hypochromasia Moderate; Lymphocytes # (A) 1.1 k/uL (1.0-4.8); Lymphocytes % (A) 7 %; MCH 28.9 pg (25.0-35.0); MCHC 30.9 g/dL (31.0-37.0); MCV 93.5 fL (80.0-100.0); Mean Platelet Volume 8.8; Monocytes # (A) 0.5 k/uL (0-1.0); Monocytes % (A) 3 %; Neutrophils # (A) 12.8 k/uL (1.3-7.7); Neutrophils % (A) 84 %; Platelet Count 374 k/uL (150-450); RBC 2.39 m/uL (3.80-5.40); RDW 14.9 % (11.5-15.5); WBC 15.2 k/uL (3.8-10.6)
[2023-12-10 05:24] LABS: African American GFR (CKD) >90 (>60 ml/min/1.73 sqM); Anion Gap 3 mmol/L; Blood Urea Nitrogen 7 mg/dL (7-17); Calcium 7.9 mg/dL (8.4-10.2); Carbon Dioxide 29 mmol/L (22-30); Chloride 107 mmol/L (98-107); Glucose 95 mg/dL (74-99); Non-African American GFR(CKD) >90 (>60 ml/min/1.73 sqM); Potassium 3.4 mmol/L (3.5-5.1); Sodium 139 mmol/L (137-145)
[2023-12-10 05:28] LABS: HGB 6.9 gm/dL (11.4-16.0)
[2023-12-10 06:17] LABS: Glucose,Whole Blood 97 mg/dL (70-110)
--- NOTE | 2023-12-10 07:35 | XR ---
EXAMINATION TYPE: XR chest 1V DATE OF EXAM: 12/10/2023 COMPARISON: 12/09/2023 HISTORY: Shortness of breath TECHNIQUE: Single frontal view of the chest is obtained. FINDINGS: Bilateral diffuse airspace disease with bilateral chest tubes. Small left-sided hydropneum othorax stable. Small right-sided pleural effusion stable. Tracheostomy tube and left-sided central l ine stable. A right-sided PICC line stable. Heart size normal. Osseous structures demonstrate degener ative changes. Surgical changes left shoulder. IMPRESSION: 1. Stable diffuse bilateral airspace disease. Small left hydropneumothorax stable.
[2023-12-10] MEDS: MAGNESIUM SULFATE-D5W PMX 1 GM in DEXTROSE/WATER 1 100ML.BAG IVPB ONE (08:28)
--- NOTE | 2023-12-10 08:44 | P.PN ---
Subjective Progress Note Date: 12/10/23 Principal diagnosis: Acute hypoxic respiratory failure requiring mechanical ventilation, bilateral hydropneumothoraces, empyema, status post bilateral chest tube insertion, septic shock. History of MS, obesity, migraines, seizures, fibromyalgia, hypertension, asthma, anxiety/depression/bipolar disorder, polysubstance abuse POD #7 placement of tracheostomy and PEG tube by Dr. Johnson The patient was seen and examined with Dr. Royal this morning laying in bed in the intensive care unit, remains sedated and mechanically ventilated. Right pleural chest tube was placed to water seal, has had virtually no output. Left pleural chest tube was discontinued yesterday. Remains on IV Vanco and oral diflucan by infectious disease. Patient does appear to be moving all extrem ities and following some commands per nursing. Objective - Vital Signs Vital signs: Vital Signs Temp 99.2 F 12/10/23 04:00 Pulse 98 12/10/23 07:00 Resp 13 12/10/23 07:00 BP 119/94 12/10/23 07:00 Pulse Ox 100 12/10/23 07:00 FiO2 50 12/10/23 07:49 Intake & Output 12/09/23 12/10/23 12/10/23 18:59 06:59 18:59 Intake Total 9198.001 3193.578 10 Output Total 2665 1125 110 Balance -1416.902 -68.422 -100 Weight 119.408 kg Intake: IV 620 620 10 0.9 @ KVO 120 120 10 Vancomycin 2,000 mg In 500 500 Sodium Chloride 0.9% 500 ml 500 ml @ 167 mls/hr IVPB Q8H [facility] Rx#: [id number] Intake, IV Titration 172.098 178.578 Amount propofoL 1,000 mg In 172.098 178.578 Empty Bag 1 bag @ 15 MCG/ KG/MIN 8.981 mls/hr IV . Q11H9M [facility] Rx#:[id number] Tube Feeding 456 228 Other 30 Output: Chest Tube Drainage 0 Chest Tube Right 0 Urine 2515 1125 110 Stool 150 Other: Voiding Method Indwelling Catheter Indwelling Catheter # Bowel Movements 1 ABP, PAP, CO, CI - Last Documented Arterial Blood Pressure 106/58 - Exam CONSTITUTIONAL: Currently sedated on mechanical ventilation, laying in bed in the intensive care unit RESPIRATORY: Lungs sounds diminished bilaterally. Respirations even, nonlabored on mechanical ventilation, current settings pressure-control mode, FiO2 50%, PEEP 5, respiratory rate 24. #8 trach tube present CARDIOVASCULAR: S1, S2 present. Regular rate and rhythm, sinus rhythm to sinus tach on telemetry. Palpable peripheral pulses bilaterally. Generalized trace edema present. No calf pain or tenderness noted. SCDs present. GASTROINTESTINAL: Abdomen soft, nontender, nondistended. Active bowel sounds present 4 quadrants. PEG tube present, TF infusing at 38 mL/hr. FMS present with liquid stool GENITOURINARY: Beth present draining clear, yellow urine. Output 3640 mL in the last 24 hours INTEGUMENTARY: Skin is warm and dry NEUROLOGIC: Sedated on mechanical ventilation INVASIVE LINES AND TUBES: Right pleural chest tube present to water seal, no air leak present this morning, virtually no output in the last 24 hours. Left subclavian triple lumen central line present. - Allied health notes Allied health notes reviewed: nursing - Labs CBC & Chem 7: 12/10/23 04:37 12/10/23 04:37 Labs: Abnormal Lab Results - Last 24 Hours (Table) 12/09/23 12/10/23 12/10/23 Range/Units 12:14 04:37 04:37 WBC 15.2 H (3.8-10.6) k/uL RBC 2.39 L (3.80-5.40) m/uL Hgb 6.9 L* (11.4-16.0) gm/dL Hct 22.3 L (34.0-46.0) % MCHC 30.9 L (31.0-37.0) g/dL Neutrophils # 12.8 H (1.3-7.7) k/uL ABG HCO3 (21-25) mmol/L ABG Total CO2 (19-24) mmol/L ABG O2 Saturation (94-97) % Potassium 3.4 L (3.5-5.1) mmol/L Creatinine 0.41 L (0.52-1.04) mg/dL POC Glucose (mg/dL) 116 H (70-110) mg/dL Calcium 7.9 L (8.4-10.2) mg/dL Crossmatch 12/10/23 12/10/23 Range/Units 05:08 06:16 WBC (3.8-10.6) k/uL RBC (3.80-5.40) m/uL Hgb (11.4-16.0) gm/dL Hct (34.0-46.0) % MCHC (31.0-37.0) g/dL Neutrophils # (1.3-7.7) k/uL ABG HCO3 29 H (21-25) mmol/L ABG Total CO2 30 H (19-24) mmol/L ABG O2 Saturation 97.8 H (94-97) % Potassium (3.5-5.1) mmol/L Creatinine (0.52-1.04) mg/dL POC Glucose (mg/dL) (70-110) mg/dL Calcium (8.4-10.2) mg/dL Crossmatch See Detail - Imaging and Cardiology Chest x-ray: report reviewed, image reviewed Assessment and Plan Assessment: Acute hypoxic respiratory failure requiring mechanical ventilation, status post trach and PEG placement Bilateral hydropneumothoraces, empyema, status post bilateral chest tube insertion Septic shock, off vasopressors, MRSA in blood, pleural fluid, sputum and nasal swab, currently on vancomycin and diflucan, repeat BC 11/25 & 11/26 finalized as negative Chest pain, shortness of breath present on admission secondary to above History of MS Obesity Migraines Seizures Fibromyalgia Hypertension, currently hypotensive on pressors Asthma Anxiety/depression/bipolar disorder Polysubstance abuse Plan: Will discontinue right pleural chest tube Ventilator management per manifest clerk Antibiotics per infectious disease Medical management of other comorbidities per internal medicine, pulmonology, ID More recommendations to follow
[2023-12-10 11:29] LABS: Glucose,Whole Blood 124 mg/dL (70-110)
--- NOTE | 2023-12-10 11:34 | P.PN ---
Subjective Progress Note Date: 12/10/23 CHIEF COMPLAINT: Respiratory failure HISTORY OF PRESENT ILLNESS: Patient remains in the ICU on mechanical ventilation. She is status post tracheostomy and PEG tube placement. Patient is tolerating tube feeds. Tube feeds are at 38 mL/h. She is having diarrhea has FMS in place. Afebrile currently. Low-grade temp last night.. WBC 15.2 Hgb 6.9 patient scheduled to get a unit of blood. PHYSICAL EXAM: VITAL SIGNS: Reviewed. GENERAL: no acute distress. HEENT: Tracheostomy site clean dry and intact ABDOMEN: Soft. Nondistended. Nontender. PEG tube site clean dry and intact NEUROLOGIC: awake ASSESSMENT: 1. Severe protein calorie malnutrition 2. Respiratory failure with MRSA pneumonia, empyema and hydropneumothorax status post chest tube placement bilaterally PLAN: -Continue tube feeds -Continue ICU management -Continue supportive care Physician Cutter Operator [employer] note has been reviewed by physician. Signing provider agrees with the documented findings, assessment, and plan of care. Objective - Vital Signs Vital signs: Vital Signs Temp 99.2 F 12/10/23 04:00 Pulse 105 H 12/10/23 09:06 Resp 13 12/10/23 07:00 BP 119/94 12/10/23 07:00 Pulse Ox 100 12/10/23 07:00 FiO2 50 12/10/23 11:18 Intake & Output 12/09/23 12/10/23 12/10/23 18:59 06:59 18:59 Intake Total 4085.054 3807.578 10 Output Total 2665 1125 110 Balance -1416.902 -68.422 -100 Weight 119.408 kg Intake: IV 620 620 10 0.9 @ KVO 120 120 10 Vancomycin 2,000 mg In 500 500 Sodium Chloride 0.9% 500 ml 500 ml @ 167 mls/hr IVPB Q8H [facility] Rx#: [id number] Intake, IV Titration 172.098 178.578 Amount propofoL 1,000 mg In 172.098 178.578 Empty Bag 1 bag @ 15 MCG/ KG/MIN 8.981 mls/hr IV . Q11H9M [facility] Rx#:[id number] Tube Feeding 456 228 Other 30 Output: Chest Tube Drainage 0 Chest Tube Right 0 Urine 2515 1125 110 Stool 150 Other: Voiding Method Indwelling Catheter Indwelling Catheter # Bowel Movements 1 ABP, PAP, CO, CI - Last Documented Arterial Blood Pressure 106/58 - Labs CBC & Chem 7: 12/10/23 04:37 12/10/23 04:37 Labs: Abnormal Lab Results - Last 24 Hours (Table) 12/09/23 12/10/23 12/10/23 Range/Units 12:14 04:37 04:37 WBC 15.2 H (3.8-10.6) k/uL RBC 2.39 L (3.80-5.40) m/uL Hgb 6.9 L* (11.4-16.0) gm/dL Hct 22.3 L (34.0-46.0) % MCHC 30.9 L (31.0-37.0) g/dL Neutrophils # 12.8 H (1.3-7.7) k/uL ABG HCO3 (21-25) mmol/L ABG Total CO2 (19-24) mmol/L ABG O2 Saturation (94-97) % Potassium 3.4 L (3.5-5.1) mmol/L Creatinine 0.41 L (0.52-1.04) mg/dL POC Glucose (mg/dL) 116 H (70-110) mg/dL Calcium 7.9 L (8.4-10.2) mg/dL Crossmatch 12/10/23 12/10/23 12/10/23 Range/Units 05:08 06:16 11:28 WBC (3.8-10.6) k/uL RBC (3.80-5.40) m/uL Hgb (11.4-16.0) gm/dL Hct (34.0-46.0) % MCHC (31.0-37.0) g/dL Neutrophils # (1.3-7.7) k/uL ABG HCO3 29 H (21-25) mmol/L ABG Total CO2 30 H (19-24) mmol/L ABG O2 Saturation 97.8 H (94-97) % Potassium (3.5-5.1) mmol/L Creatinine (0.52-1.04) mg/dL POC Glucose (mg/dL) 124 H (70-110) mg/dL Calcium (8.4-10.2) mg/dL Crossmatch See Detail
--- NOTE | 2023-12-10 11:40 | P.PN ---
Subjective Progress Note Date: 12/10/23 On today's evaluation of 12/08/2023, the patient is being seen for a follow-up. This morning, the patient is still sedated with propofol at 55 mcg/kg/min. She seems to be arousable and she withdraws to painful stimulation. She has profound weakness in all 4 extremities. The patient remains on the mechanical ventilator. She has never worn a tracheostomy tube that was inserted for prolonged respiratory failure and the patient has a Bivona #8. She is currently on assist-control mode of mechanical ventilation at a rate of 24, tidal volume of 450, FiO2 of 50% with a PEEP of 5. Pulmonary artery pressures 43 peak and 31 static airway pressure. The blood gas from today shows a pH of 7.54 with a pCO2 of 43 and pO2 of 65. The patient's right-sided chest tube has drained about 80 cc over the past 24 hours and no output from the left-sided chest tube. She has a fluid balance of -4.3 L over the past 24 hours as the patient was given diuretics. The rest of the labs from today shows a WBC count of 13.5 with a hemoglobin of 7.2 and a platelet count of 302. Sodium is at 139, potassium is at 3.7, BUN is at 7 with a creatinine of 0.39. Blood sugar is adequately controlled for now. The patient is receiving enteral feeding for nutritional support. She is currently afebrile. No pressors on board. 12/09/2023, I am seeing the patient for a follow-up. This morning, the patient remains on propofol at 65 mcg/kg/min. She is arousable and she is in the process of getting a sedation holiday at this point. The patient remains on the mechanical ventilator. The patient has a tracheostomy tube in place. Left- sided chest tube was removed. Right-sided chest tube still in place with a output being minimal at this point in time and the chest was attached to waterseal. Meanwhile, the repeat chest x-ray still showing bilateral areas of consolidation and cavitation. No clear indication of underlying pneumothorax. The patient is on assist-control mode at rate of 24, tidal volume of 375 with a PEEP of 5 and FiO2 of 50%. pH is at 7.4 with a pCO2 of 48 and pO2 of 85. The patient is on vital HP at a rate of 38 cc an hour. The patient is having liquidy diarrhea and the patient has a fecal management system in place. Stool for C. difficile has been essentially negative. She is afebrile. She is hemodynamically stable. On today's blood work, the WBC count is at 16.3 with a hemoglobin 7.9 and a platelet count of 380. BUN is at 7 with a creatinine of 0.4 and sodium levels of 141. The patient remains on vancomycin. The patient is also on Diflucan 100 mg p.o. daily. The patient on Lovenox for DVT prophylaxis. On today's evaluation of 12/10/2023, the patient was restarted on propofol. As the patient was being watched up, she had increased anxiety and restlessness and the patient was placed on propofol. While on propofol, she remains responsive. She is calm and comfortable after being washed out. She has a fecal management system in place which was leaking and she had to be washed out extensively. The patient continues to have liquidy diarrhea. Stool for significant been negative. Meanwhile, on today's evaluation, he is on pressure control mode of mechanical ventilation with a pressure control of 30, PEEP of 5, rate of 24 with an FiO2 of 50%. Expiratory time is 1. The blood gas from earlier this morning showed a pH of 7.45 with a pCO2 45 pO2 of 88. The patient's chest x-ray showed bilateral consolidation and some areas of cavitation. No evidence of any pneumothorax. Right-sided chest tube was removed today. The patient remains on enteral feeding with vital high-protein at rate of 30 cc an hour. Hemoglobin is dropped down to 6.9 and the patient is going to receive a unit of packed RBC. BUN is at 7 with a creatinine of 0.4 and electrolytes are all stable with a potassium level of 3.4 that needs to be replaced. White cell count is 15.2. Remains on vancomycin. Most recent vancomycin level from 12/07/2023 was 20.9. No other significant events overnight. Hemodynamically stable. Objective - Vital Signs Vital signs: Vital Signs Temp 99.2 F 12/10/23 04:00 Pulse 105 H 12/10/23 09:06 Resp 13 12/10/23 07:00 BP 119/94 12/10/23 07:00 Pulse Ox 100 12/10/23 07:00 FiO2 50 12/10/23 11:18 Intake & Output 12/09/23 12/10/23 12/10/23 18:59 06:59 18:59 Intake Total 4987.640 4491.578 10 Output Total 2665 1125 110 Balance -1416.902 -68.422 -100 Weight 119.408 kg Intake: IV 620 620 10 0.9 @ KVO 120 120 10 Vancomycin 2,000 mg In 500 500 Sodium Chloride 0.9% 500 ml 500 ml @ 167 mls/hr IVPB Q8H [facility] Rx#: [id number] Intake, IV Titration 172.098 178.578 Amount propofoL 1,000 mg In 172.098 178.578 Empty Bag 1 bag @ 15 MCG/ KG/MIN 8.981 mls/hr IV . Q11H9M [facility] Rx#:[id number] Tube Feeding 456 228 Other 30 Output: Chest Tube Drainage 0 Chest Tube Right 0 Urine 2515 1125 110 Stool 150 Other: Voiding Method Indwelling Catheter Indwelling Catheter # Bowel Movements 1 ABP, PAP, CO, CI - Last Documented Arterial Blood Pressure 106/58 - Exam CONSTITUTIONAL: Mechanical ventilation, laying in bed in the intensive care unit, opens eyes with verbal stimuli., Currently on low-dose propofol RESPIRATORY: Lungs sounds diminished bilaterally. Respirations symmetrical, nonlabored with mechanical ventilator support, current settings assist-control mode, pressure control mode of mechanical ventilation. CARDIOVASCULAR: S1, S2 present. Regular rate and rhythm, bedside telemetry showing normal sinus rhythm heart rate 90 bpm. Palpable peripheral pulses bilaterally. Generalized trace edema present. No calf pain or tenderness noted. SCDs present. GASTROINTESTINAL: Abdomen soft, nontender, nondistended. Active bowel sounds present 4 quadrants. PEG tube present with tube feedings infusing at goal rate. GENITOURINARY: Beth present draining clear, yellow urine. INTEGUMENTARY: Skin is warm and dry, no clubbing or cyanosis is present. Dressings to her bilateral chest tube insertion sites clean dry and intact. NEUROLOGIC: Mechanical ventilation, unable to accurately assess at this time. INVASIVE LINES AND TUBES: All of the chest rhythm removed. - Labs CBC & Chem 7: 12/10/23 04:37 12/10/23 04:37 Labs: Abnormal Lab Results - Last 24 Hours (Table) 12/09/23 12/10/23 12/10/23 Range/Units 12:14 04:37 04:37 WBC 15.2 H (3.8-10.6) k/uL RBC 2.39 L (3.80-5.40) m/uL Hgb 6.9 L* (11.4-16.0) gm/dL Hct 22.3 L (34.0-46.0) % MCHC 30.9 L (31.0-37.0) g/dL Neutrophils # 12.8 H (1.3-7.7) k/uL ABG HCO3 (21-25) mmol/L ABG Total CO2 (19-24) mmol/L ABG O2 Saturation (94-97) % Potassium 3.4 L (3.5-5.1) mmol/L Creatinine 0.41 L (0.52-1.04) mg/dL POC Glucose (mg/dL) 116 H (70-110) mg/dL Calcium 7.9 L (8.4-10.2) mg/dL Crossmatch 12/10/23 12/10/23 12/10/23 Range/Units 05:08 06:16 11:28 WBC (3.8-10.6) k/uL RBC (3.80-5.40) m/uL Hgb (11.4-16.0) gm/dL Hct (34.0-46.0) % MCHC (31.0-37.0) g/dL Neutrophils # (1.3-7.7) k/uL ABG HCO3 29 H (21-25) mmol/L ABG Total CO2 30 H (19-24) mmol/L ABG O2 Saturation 97.8 H (94-97) % Potassium (3.5-5.1) mmol/L Creatinine (0.52-1.04) mg/dL POC Glucose (mg/dL) 124 H (70-110) mg/dL Calcium (8.4-10.2) mg/dL Crossmatch See Detail Assessment and Plan Plan: Acute hypoxic respiratory failure, currently intubated on mechanical ventilator, the patient has prolonged ventilator dependent respiratory failure and the pa tient was given tracheostomy tube for ventilator support and the patient currently has a Bivona #8. Patient remains on mechanical ventilator on pressure control mode. Chest x-ray was reviewed. Chest tube has been removed and the patient continues to have consolidation with areas of cavitation that is staphylococcal pneumonia. Acute bilateral pneumonia complicated by bilateral pneumothoraces. The patient is post bilateral chest tube insertion. The patient was found to have bilateral empyema requiring bilateral chest tube insertion. No evidence of any air leak and the most recent CAT scan of the chest that was done on this patient showed some minimal residual fluid/collection in the lungs bilaterally. Chest rhythm removed and there is no evidence of any residual pneumothorax or pleural fluid. Acute bilateral empyema, this was related to Staph aureus/MRSA and the patient remains on vancomycin. Acute bilateral staphylococcal pneumonia with secondary cavitation and complication with bilateral pneumothoraces. The patient remains on vancomycin. Vancomycin trough on 12/07/2023 is 20. 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 Stool for send it has been negative and the patient is significantly feeding for nutritional support. Plan Continue the ventilator support keep the patient on pressure control mode of mechanical ventilation pressure control of 25 with a PEEP of 5 and an inspiratory time of 1 ms. No need for sedatives for now and propofol be weaned off Right-sided chest tube was removed today And Lomotil for diarrhea Enteral feeding for nutritional support IV vancomycin Oral Diflucan Follow-up cultures have been negative Transthoracic echocardiogram shows no evidence of any vegetation Check serum cortisol level Put the patient on Lovenox 40 mg subcu for DVT prophylaxis Consult select specialty Will continue to follow make further recommendations based on her progress. This evaluation was done more than 45 minutes excluding time to do any procedures. Time with Patient: Greater than 30
[2023-12-10 17:00] LABS: Glucose,Whole Blood 100 mg/dL (70-110)
[2023-12-10 17:46] LABS: Potassium 3.8 mmol/L (3.5-5.1)
[2023-12-10 18:09] LABS: HCT 24.6 % (34.0-46.0); HGB 7.6 gm/dL (11.4-16.0); Hypochromasia Moderate; MCHC 30.8 g/dL (31.0-37.0); MCV 94.2 fL (80.0-100.0); Mean Platelet Volume 8.6; Platelet Count 369 k/uL (150-450); Poikilocytosis Slight; RBC 2.62 m/uL (3.80-5.40); RDW 14.9 % (11.5-15.5); WBC 16.8 k/uL (3.8-10.6)
[2023-12-10] MEDS: POTASSIUM CHLORIDE ER 20 MEQ TAB.ER PO SCH (18:20)
[2023-12-10] MEDS: POTASSIUM CHLORIDE 20 MEQ in WATER FOR INJECTION 1 100ML.BAG IVPB ONE (20:00)
--- NOTE | 2023-12-10 23:48 | P.PN ---
Subjective 43 year old female evaluated today in the intensive care unit. Patient is currently sedated and remains on the mechanical ventilator. Presents from the [facility] with shortness of breath and cough. Patient found to have bilateral pneumothorax and continues currently with right and left sided chest tubes. Chest xray today reveals continued diffuse bilateral airspace disease with extensive pleural parenchymal opacity. Continues on IV vancomycin due to MRSA bacteremia. White blood cell count today 24.2, hgb 7.1. Sodium 136, potassium 3.4. Remains on IV fentanyl, IV versed, IV propofol. Being considered from tracheostomy and PEG tube placement. Remains febrile with T-max 101.4 overnight. Unable to complete a review of systems as patient is currently intubated and sedated on the mechanical ventilator 12/05/2023 Patient is seen and evaluated in room at bedside; remains on the mechanical ventilator. -- Blood gases show pO2 75, pCO2 49, pH is 7.44. Labs include a white count of 16.7, hemoglobin 7.2, hematocrit 22.3, and a platelet count of 277,000. Sodium 138, potassium 3.6, chlorides 105, CO2 28, BUN 8, creatinine 0.35. The glucose is 123. The calcium is 7.3. Gram stain, and blood cultures, show evidence of methicillin-resistant Staph aureus. Chest x-ray shows a midline tracheostomy tube. The NG tube has been removed. The patient continues on vancomycin and Eraxis. 12/06/2023 Patient is seen and evaluated in room at bedside; remains on the ventilator. She is on volume assist-control; patient has been able to be weaned off of fentanyl - Blood gases show pO2 of 68, pCO2 48, pH is 7.51. White count 12.8, hemoglobin 7, hematocrit 23.1, and platelet count 282,000. Sodium 138, potassium 3.2, chlorides 100, CO2 37, BUN 6, creatinine 0.33. Glucose is 126. Albumin 1.9. All her previous cultures are showing evidence of methicillin-resistant Staph aureus. Chest x-ray shows diffuse bilateral airspace disease. Patient remains on vancomycin, and Eraxis for suspected fungemia. 12/07/2023 Patient is seen and evaluated in room at bedside; remains on the ventilator. She is on volume assist-control, rate 24, tidal volume 450, FiO2 50%, PEEP of 5. -- Blood gases show pO2 74, pCO2 47, pH is 7.51. The patient is getting lactated Ringer's at 20 cc an hour, vital high-protein at 38 cc an hour, which is goal, and propofol at 55 mcg/kg/min. -- patient CV Lasix 60 mg IV push per aircraft engine mechanic supervisor recommendation, and she cont inues on vancomycin and Eraxis. Bilateral chest tubes are still in place. White count 12.5, hemoglobin 7.1, hematocrit 22.4, platelet count was normal. Sodium 139, potassium 3.4, chlorides 102, CO2 37, BUN 7, creatinine 0.37. Glucose 119. Cultures all along have been positive for methicillin-resistant Staph aureus. Chest x-ray shows bilateral opacities, which are quite extensive. 12/08/23 : Dr Isaac assumed care Patient seen and evaluated in medical ICU patient remains intubated, on 50% FiO2, blood work reviewed, CBC showed WBC of 13.5 hemoglobin of 7.2 platelet count of 302. Arterial blood gas showed pH 7.49 pCO2 of 44 pO2 of 91, serum chemistry shows sodium 139 potassium 3.7 BUN 7 creatinine 0.39, stool C. difficile was negative. Patient continues to remain on antibiotic coverage managed by infectious disease, patient is s/p tracheostomy and PEG tube placement, followed by medical ICU team plan for removal of chest tube today by thoracic surgery. 12/09/23 Patient seen and evaluated at bedside, patient remains intubated on mechanical ventilation, followed by thoracic surgery, patient continues sedated with propofol, right pleural chest tube remains in place, patient had left pleural chest tube removed yesterday. Continue antibiotics, continue to remain critically ill. WBC 16.3 trending up, hemoglobin 7.9 arterial blood gas reviewed. Spontaneous breathing trial per pulmonary medicine 12/10/2023 Patient remains on mechanical ventilation, with pulmonary/critical care team following and help with management. Patient was admitted with severe bilateral pneumonia and acute hypoxic respiratory failure He was found to have bilateral pneumothoraces requiring chest tube, right chest tube was taken out today. Patient also on IV vancomycin for MRSA empyema. Patient also morbidly obese he has diarrhea, C. difficile negative, unremarkable, also on a scopolamine pa tch. Also . Objective - Vital Signs Vital signs: Vital Signs Temp 99.2 F 12/10/23 04:00 Pulse 105 H 12/10/23 09:06 Resp 13 12/10/23 07:00 BP 119/94 12/10/23 07:00 Pulse Ox 100 12/10/23 07:00 FiO2 50 12/10/23 07:49 Intake & Output 12/09/23 12/10/23 12/10/23 18:59 06:59 18:59 Intake Total 6518.453 6460.578 10 Output Total 2665 1125 110 Balance -1416.902 -68.422 -100 Weight 119.408 kg Intake: IV 620 620 10 0.9 @ KVO 120 120 10 Vancomycin 2,000 mg In 500 500 Sodium Chloride 0.9% 500 ml 500 ml @ 167 mls/hr IVPB Q8H [facility] Rx#: [id number] Intake, IV Titration 172.098 178.578 Amount propofoL 1,000 mg In 172.098 178.578 Empty Bag 1 bag @ 15 MCG/ KG/MIN 8.981 mls/hr IV . Q11H9M [facility] Rx#:[id number] Tube Feeding 456 228 Other 30 Output: Chest Tube Drainage 0 Chest Tube Right 0 Urine 2515 1125 110 Stool 150 Other: Voiding Method Indwelling Catheter Indwelling Catheter # Bowel Movements 1 ABP, PAP, CO, CI - Last Documented Arterial Blood Pressure 106/58 - Exam -GENERAL: The patient is intubated and sedated. Obese HEENT: Pupils are round and equally reacting to light. EOMI. No scleral icterus. No conjunctival pallor. Normocephalic, atraumatic. No pharyngeal erythema. No thyromegaly. CARDIOVASCULAR: S1 and S2 present. No murmurs, rubs, or gallops. -PULMONARY: C decreased breath sounds, no wheezing , no crackles. Chest tube in place ABDOMEN: Soft, nontender, nondistended, normoactive bowel sounds. No palpable organomegaly. MUSCULOSKELETAL: No joint swelling or deformity. EXTREMITIES: No cyanosis, clubbing, or pedal edema. NEUROLOGICAL: Gross neurological examination did not reveal any focal deficits. SKIN: No rashes. no petechiae. - Labs CBC & Chem 7: 12/10/23 18:00 12/10/23 17:21 Labs: Abnormal Lab Results - Last 24 Hours (Table) 12/09/23 12/10/23 12/10/23 Range/Units 12:14 04:37 04:37 WBC 15.2 H (3.8-10.6) k/uL RBC 2.39 L (3.80-5.40) m/uL Hgb 6.9 L* (11.4-16.0) gm/dL Hct 22.3 L (34.0-46.0) % MCHC 30.9 L (31.0-37.0) g/dL Neutrophils # 12.8 H (1.3-7.7) k/uL ABG HCO3 (21-25) mmol/L ABG Total CO2 (19-24) mmol/L ABG O2 Saturation (94-97) % Potassium 3.4 L (3.5-5.1) mmol/L Creatinine 0.41 L (0.52-1.04) mg/dL POC Glucose (mg/dL) 116 H (70-110) mg/dL Calcium 7.9 L (8.4-10.2) mg/dL Crossmatch 12/10/23 12/10/23 Range/Units 05:08 06:16 WBC (3.8-10.6) k/uL RBC (3.80-5.40) m/uL Hgb (11.4-16.0) gm/dL Hct (34.0-46.0) % MCHC (31.0-37.0) g/dL Neutrophils # (1.3-7.7) k/uL ABG HCO3 29 H (21-25) mmol/L ABG Total CO2 30 H (19-24) mmol/L ABG O2 Saturation 97.8 H (94-97) % Potassium (3.5-5.1) mmol/L Creatinine (0.52-1.04) mg/dL POC Glucose (mg/dL) (70-110) mg/dL Calcium (8.4-10.2) mg/dL Crossmatch See Detail Assessment and Plan Assessment: * Acute hypoxic respiratory failure requiring mechanical ventilation secondary to acute bilateral pneumonia, status post PEG and trach placement on 12/03/2023. * Acute bilateral pneumonia complicated by bilateral pneumothoraces. * Acute bilateral empyema, post bilateral chest tube insertion with purulent material draining from both lungs. * MRSA bacteremia * Anemia with iron studies revealing underlying iron deficiency. Status post 2 units PRBC on 12/02/2023 * septic shock * Morbid obesity * Polysubstance abuse * Hyponatremia * Transaminitis * History of seizure disorder Plan: Continue with mechanical ventilation and intubation as per pulmonary/critical care team Continue with IV vancomycin Also patient on p.o. Diflucan Monitor hemoglobin Patient also required chest tube DVT prophylaxis Lovenox Prognosis is guarded
[2023-12-11 00:47] LABS: Glucose,Whole Blood 109 mg/dL (70-110)
[2023-12-11 04:56] LABS: HCT 24.5 % (34.0-46.0); HGB 7.6 gm/dL (11.4-16.0); Hypochromasia Moderate; MCH 29.3 pg (25.0-35.0); MCV 94.8 fL (80.0-100.0); Mean Platelet Volume 9.1; Platelet Count 374 k/uL (150-450); Poikilocytosis Slight; RBC 2.58 m/uL (3.80-5.40); RDW 15.3 % (11.5-15.5); WBC 16.3 k/uL (3.8-10.6)
[2023-12-11 05:12] LABS: African American GFR (CKD) >90 (>60 ml/min/1.73 sqM); Anion Gap 2 mmol/L; Blood Urea Nitrogen 7 mg/dL (7-17); Calcium 7.8 mg/dL (8.4-10.2); Carbon Dioxide 29 mmol/L (22-30); Chloride 108 mmol/L (98-107); Glucose 94 mg/dL (74-99); Non-African American GFR(CKD) >90 (>60 ml/min/1.73 sqM); Potassium 3.9 mmol/L (3.5-5.1); Sodium 139 mmol/L (137-145)
[2023-12-11 05:18] LABS: Glucose,Whole Blood 82 mg/dL (70-110)
--- NOTE | 2023-12-11 06:20 | P.PN ---
Subjective Progress Note Date: 12/11/23 Principal diagnosis: Respiratory failure. Reevaluate today on11/27/23, remains in the ICU, intubated and mechanically ventilated, on assist-control rate of 42 tidal volume 450 FiO2 60% PEEP of 5 ABG showed a pO2 of 72 pCO2 43 pH of 7.49. Patient remains fully sedated she is on fentanyl 1.5 mcg/kg/min she is also on Versed 3 mg/h. Propofol at 50 mcg/kg/min. Patient remains hemodynamically unstable requiring norepinephrine at 0.11 mcg/kg/min she is on vital HP at 16 mL/h. She is also on LR at 150 cc/h. Today I did not make any changes in her ventilator settings. Her chest x-ray is basically about the same continues to show right-sided pneumothorax but I do not see an air leak today on the right side but she does have an air leak on the left side and continues to have significant purulent drainage from the chest tube on the left side. 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 Not much of a change overnight, patient remains critically ill. Continues to have leukocytosis with WBC count of 28.2 hemoglobin 8.5 basic metabolic profile is normal and renal profile is normal Reevaluate today on 11/28/2023, remains in the ICU intubated and mechanically ventilated. Patient is on assist-control rate of 52 tidal volume 450 FiO2 60% PEEP of 5 ABG showed a pO2 of 73 pCO2 37 pH of 7.52 hence FiO2 was cut down to 55% and rate to cut down to 28. Patient continues to have bilateral chest tubes, the left-sided chest tube has ongoing continuous leak, right-sided chest tube has intermittent airleak. However the patient is maintaining her adequate tidal volumes which are about 450. Patient remains on propofol at 50 mcg/kg/min Versed 3 mg/h Fentanyl 1.5 mcg/kg/h patient is also receiving norepinephrine at 0.08 mcg/kg/min. Her IV fluid which is LR Down to 100 cc/h. She is on vital HP patient had a Tmax of 102.9 yesterday, cultures of blood and pleural effusion are positive for MRSA, patient remains on vancomycin. If the patient continues to have positive blood cultures in the next couple of days, may have to consider OSIRIS. The cultures from the are pending. Chest x-ray continues to show significant hydropneumothorax on the left side, and she has mostly hydrothorax on the right side. I could not appreciate a pneumothorax on the right side labs today showed leukocytosis with WBC of 23.1 hemoglobin 7.4, basic metabolic profile is normal renal profile is normal today on 11/29/2023 patient remains intubated and mechanically ventilated, she is on assist-control rate of 28 tidal volume 450 FiO2 55% PEEP of 5 ABG showed a pO2 of 94 pCO2 34 pH of 7.53, hence her vent settings were changed to cut down her rate to 26 cut down FiO2 to 50% And PEEP at 5. Patient's hemoglobin is low today at 6.8, and she will receive a unit of packed RBCs. Patient is being treated for MRSA pneumonia, bacteremia, and empyema. Remains on propofol at 30 mcg/kg/min Fentanyl 1 mcg/kg/h she is also on Versed which I will discontinue today 2 mg/h. Norepinephrine 0.02 mcg/kg/min and IV fluid 0.9 normal saline at 100 cc/h. Chest x-ray continues to show left-sided loculated pneumothorax, and she continues to have ongoing airleak from the left-sided chest tube. The right-sided chest tube seems to be occluded, hence we will ask thoracic surgery to flush the chest tube, and the patient has what seems to be a pleural effusion on the right side, drainage is serosanguineous. Considering the overall picture, the patient is again not quite ready for any weaning, however over the next couple of days as we cut down on sedation, may start waking the patient up and give the patient weaning trials if possible. At this point she remains quite ill, and I doubt if she will tolerate any form of weaning her FiO2 just dropped down from 55 to 50%., Continues to have leukocytosis but improving WBC count is 24.7 hemoglobin 6.8 and she will receive a unit of packed RBCs. Basic metabolic profile is normal renal profile is normal and urine output is excellent Patient was reexamined today on 11/30/2023, remains intubated and mechanically ventilated, remains on vancomycin, patient is on assist-control rate of 24 tidal volume 450 FiO2 50% and PEEP of 5 ABG showed a pO2 of 78 pCO2 48 pH of 7.40 hence no changes were made in vent settings. Chest x-ray showed significant bilateral airspace disease loculated left-sided pneumothorax no clear-cut evidence of pneumothorax on the right. Chest x-ray is also suggestive of interstitial edema/infiltrates, hence the patient will be given a trial of diuresis. Hemoglobin is down to 7.4, patient did receive 1 unit of packed RBCs: WBC count remains high at 25.8 but steadily improving. Patient continues to have air leak in the left side chest tube, but no airleak noted in the right- sided chest tube. Drips bautista the patient is on fentanyl at 1 mcg/kg/h IV fluid LR at 100 cc/h norepinephrine at 0.04 mcg/kg/min propofol at 30 mcg/kg/min vital HP at 44/44. Patient did receive 20 mg of Lasix earlier while on rounds. Her arterial line went and nonfunctional, hence a new arterial line was placed in the left radial artery. Father called about his daughter, and I discussed her condition over the phone with her father and updated him on the situation. He is aware that she is critically ill, and at this point prognosis is relatively guarded. Progress note dated December 01, 2023. This is a 43-year-old female who was admitted on November 22. The patient came in with bilateral pneumonia and empyema. She was intubated for respiratory failure on November 23. Sampling has revealed evidence of methicillin-resistant Staph aureus. She remains on the ventilator.Ventilator settings include volume assist-control, rate 24, tidal volume 450, FiO2 50%, PEEP of 5. Blood gases show pO2 100, pCO2 of 44, pH is 7.47. The patient remains on propofol at 30 mcg/kg/min, fentanyl at 1 mcg/kg/h, lactated Ringer's at 100 cc an hour, and vital AF at 44 cc an hour, which is goal. The patient does continue on vancomycin for her MRSA infection. Current laboratory data includes a white count 24.2, hemoglobin 7.1, hematocrit 22.9, and platelet count 242,000. Sodium 136, potassium 3.2, chlorides 104, CO2 31, BUN 10, creatinine 0.39. Glucose is 111. Calcium is 7.1. Nasal swabs, sputum, blood, wound culture, and pleural fluid, are all consistent with methicillin-resistant Staph aureus. Chest x-ray shows continued bilateral diffuse airspace disease. Bilateral pleural catheters are seen. Progress note dated December 02 2023. This is a 43-year-old female who was admitted on November 22. The patient came in with bilateral pneumonia and empyema. She was intubated for respiratory failure on November 23. Sampling has revealed evidence of methicillin-resistant Staph aureus. She remains on the ventilator. Currently, she is on volume assist- control, rate 24, tidal volume 450, FiO2 50%, PEEP of 5. Blood gases show pO2 73, pCO2 46, pH is 7.47. The patient is getting lactated Ringer's at 100 cc an hour, propofol at 35 mcg/kg/min, and fentanyl at 2 mcg/kg/h. Her tube feedings are on hold, as the patient is to receive a PEG tube today. The patient will have a tracheostomy performed on Friday. White count is 20.4, hemoglobin 6.4, hematocrit 20.1, and platelet count was normal. Sodium 138, potassium 3.7, chlorides 105, CO2 31, BUN 10, creatinine 0.42. Glucose is 95. Calcium 7.1, magnesium 2.0. Nasal swab, pleural fluid, sputum, and blood cultures, are all positive for methicillin-resistant Staph aureus. Chest x-ray shows diffuse bilateral infiltrates. Progress note dated December 03, 2023. 43-year-old female who was admitted on November 22. She was admitted with a diagnosis of bilateral pneumonia, and empyema. She was intubated for respiratory failure on November 23. Thus far, sampling, has revealed evidence of methicillin-resistant Staph aureus. She remains on the ventilator. Settings include volume assist-control, rate 24, tidal volume 450, FiO2 50%, PEEP of 5. Blood gases show pO2 of 81, pCO2 of 44, pH is 7.47. She remains on propofol at 50 mcg/kg/min, lactated Ringer's at 100 cc an hour, and fentanyl at 1.5 mcg/kg/h. She is going to have a PEG tube placed today, and hopefully a tracheostomy performed tomorrow. She continues on vancomycin, and infectious disease doctor has added Eraxis. In addition, the patient has received a total of 3 units of packed red blood cells. White count 21.4, hemoglobin 7.6, hematocrit 23.8, and platelet count 279,000. Sodium 138, potassium 3.6, chlorides 106, CO2 32, BUN 8, creatinine 0.38. Glucose is 84. Calcium 7.4. Chest x-ray is essentially unchanged, and shows diffuse bilateral and severe airspace disease. Progress note dated December 04, 2023. 43-year-old female admitted on November 22. She was admitted with a diagnosis of respiratory failure, bilateral pneumonia, and bilateral empyema. She was intubated for respiratory failure on November 23. The patient remains on the mechanical ventilator. She is on volume assist-control, rate 24, tidal volume 450, FiO2 50%, PEEP of 5. Blood gases show pO2 of 80, pCO2 44, pH is 7.46. The patient remains on propofol at 50 mcg/kg/min, fentanyl at 1.5 mcg/kg/h, and lac tated Ringer's at 100 cc an hour. The patient is currently on vancomycin and Eraxis. Tube feedings are on hold. The patient had tracheostomy and PEG tube placement on December 02. In addition, the patient will have a PICC line placed today. White count 16.7, hemoglobin 7.2, macro 22.3, and platelet count was normal. Sodium 138, potassium 3.6, chlorides 105, CO2 28, BUN 8, creatinine 0.35. Glucose is 79. Calcium is 7.3. Cultures, at multiple sites, revealed methicillin-resistant Staph aureus. Chest x-ray shows a midline tracheostomy. Chest x-ray may be a bit proved. Progress note dated December 05, 2023. 43-year-old female admitted on November 22. She was admitted with a diagnosis of respiratory failure, bilateral pneumonia, and bilateral empyema. The patient was intubated on November 23. She remains on the mechanical ventilator. Currently, settings are volume assist-control, rate 24, tidal volume 450, FiO2 50%, and PEEP of 5. Blood gases show pO2 75, pCO2 49, pH is 7.44. The patient is on propofol at 55 mcg/kg/min, fentanyl at 1.5 mcg/kg/h, and lactated Ringer's at 100 cc an hour. She is also getting vital HP, at 54 cc an hour, which is goal. Current labs include a white count of 16.7, hemoglobin 7.2, hematocrit 22.3, and a platelet count of 277,000. Sodium 138, potassium 3.6, chlorides 105, CO2 28, BUN 8, creatinine 0.35. The glucose is 123. The calcium is 7.3. All previous cultures including sputum Gram stain, and blood cultures, show evidence of methicillin-resistant Staph aureus. The patient continues on vancomycin and Eraxis. Chest x-ray shows a midline tracheostomy tube. The NG tube has been removed. Progress note dated December 06, 2023. 43-year-old female admitted on November 22, for respiratory failure, bilateral pneumonia, bilateral empyema. The patient was intubated for respiratory failure the following day, November 23. She remains on the ventilator. She is on volume assist-control, rate 24, tidal volume 450, FiO2 50%, PEEP of 5. Blood gases show pO2 of 68, pCO2 48, pH is 7.51. She is receiving propofol at 55 mcg/kg/min, saline at KVO, and vital AF at 38 cc an hour, which is goal. She continues on vancomycin, and Eraxis. White count 12.8, hemoglobin 7, hematocrit 23.1, and platelet count 282,000. Sodium 138, potassium 3.2, chlorides 100, CO2 37, BUN 6, creatinine 0.33. Glucose is 126. Albumin 1.9. All her previous cultures are showing evidence of methicillin-resistant Staph aureus. Chest x- ray shows diffuse bilateral airspace disease. Her chest x-ray is basically unchanged. Progress note dated December 07, 2023. 43-year-old female admitted on November 22 for respiratory failure, bilateral pneumonia, and bilateral empyema. The patient was intubated for respiratory failure on November 23. She remains on the ventilator. She is on volume assist- control, rate 24, tidal volume 450, FiO2 50%, PEEP of 5. Blood gases show pO2 74, pCO2 47, pH is 7.51. The patient is getting lactated Ringer's at 20 cc an hour, vital high-protein at 38 cc an hour, which is goal, and propofol at 55 mcg/kg/min. Today, the patient will get Lasix 60 mg IV push, and she continues on vancomycin and Eraxis. Bilateral chest tubes are still in place. White count 12.5, hemoglobin 7.1, hematocrit 22.4, platelet count was normal. Sodium 139, potassium 3.4, chlorides 102, CO2 37, BUN 7, creatinine 0.37. Glucose 119. Cultures all along have been positive for methicillin-resistant Staph aureus. Chest x-ray shows bilateral opacities, which are quite extensive. On today's evaluation of 12/08/2023, the patient is being seen for a follow-up. This morning, the patient is still sedated with propofol at 55 mcg/kg/min. She seems to be arousable and she withdraws to painful stimulation. She has profound weakness in all 4 extremities. The patient remains on the mechanical ventilator. She has never worn a tracheostomy tube that was inserted for prolonged respiratory failure and the patient has a Bivona #8. She is currently on assist-control mode of mechanical ventilation at a rate of 24, tidal volume of 450, FiO2 of 50% with a PEEP of 5. Pulmonary artery pressures 43 peak and 31 static airway pressure. The blood gas from today shows a pH of 7.54 with a pCO2 of 43 and pO2 of 65. The patient's right-sided chest tube has drained about 80 cc over the past 24 hours and no output from the left-sided chest tube. She has a fluid balance of -4.3 L over the past 24 hours as the patient was given diuretics. The rest of the labs from today shows a WBC count of 13.5 with a hemoglobin of 7.2 and a platelet count of 302. Sodium is at 139, potassium is at 3.7, BUN is at 7 with a creatinine of 0.39. Blood sugar is adequately controlled for now. The patient is receiving enteral feeding for nutritional support. She is currently afebrile. No pressors on board. 12/09/2023, I am seeing the patient for a follow-up. This morning, the patient remains on propofol at 65 mcg/kg/min. She is arousable and she is in the process of getting a sedation holiday at this point. The patient remains on the mechanical ventilator. The patient has a tracheostomy tube in place. Left- sided chest tube was removed. Right-sided chest tube still in place with a output being minimal at this point in time and the chest was attached to waterseal. Meanwhile, the repeat chest x-ray still showing bilateral areas of consolidation and cavitation. No clear indication of underlying pneumothorax. The patient is on assist-control mode at rate of 24, tidal volume of 375 with a PEEP of 5 and FiO2 of 50%. pH is at 7.4 with a pCO2 of 48 and pO2 of 85. The patient is on vital HP at a rate of 38 cc an hour. The patient is having liquidy diarrhea and the patient has a fecal management system in place. Stool for C. difficile has been essentially negative. She is afebrile. She is hemodynamically stable. On today's blood work, the WBC count is at 16.3 with a hemoglobin 7.9 and a platelet count of 380. BUN is at 7 with a creatinine of 0.4 and sodium levels of 141. The patient remains on vancomycin. The patient is also on Diflucan 100 mg p.o. daily. The patient on Lovenox for DVT prophylaxis. On today's evaluation of 12/10/2023, the patient was restarted on propofol. As the patient was being watched up, she had increased anxiety and restlessness and the patient was placed on propofol. While on propofol, she remains responsive. She is calm and comfortable after being washed out. She has a fecal management system in place which was leaking and she had to be washed out extensively. The patient continues to have liquidy diarrhea. Stool for significant been negative. Meanwhile, on today's evaluation, he is on pressure control mode of mechanical ventilation with a pressure control of 30, PEEP of 5, rate of 24 with an FiO2 of 50%. Expiratory time is 1. The blood gas from earlier this morning showed a pH of 7.45 with a pCO2 45 pO2 of 88. The patient's chest x-ray showed bilateral consolidation and some areas of cavitation. No evidence of any pneumothorax. Right-sided chest tube was removed today. The patient remains on enteral feeding with vital high-protein at rate of 30 cc an hour. Hemoglobin is dropped down to 6.9 and the patient is going to receive a unit of packed RBC. BUN is at 7 with a creatinine of 0.4 and electrolytes are all stable with a potassium level of 3.4 that needs to be replaced. White cell count is 15.2. Remains on vancomycin. Most recent vancomycin level from 12/07/2023 was 20.9. No other significant events overnight. Hemodynamically stable. Progress note dated December 11, 2023. The patient is seen today in room 254, ICU. The patient is on pressure assist control, with a rate of 24, respiratory to pressure of 30 cmH2O, inspiratory time of 1 second, FiO2 50%, and PEEP of 5. Arterial blood gases are currently pending. The patient continues on propofol at 40 mcg/kg/min, vital HP at 38 cc an hour, which is goal. She also continues on IV vancomycin. The right and left chest tubes, are both out. Current labs include a white count of 16.3, hemoglobin 7.6, hematocrit 24.5, and a platelet count of 374,000. Sodium 139, potassium 3.9, chlorides 108, CO2 29, BUN 7, creatinine 0.37. Glucose is 94. Calcium is 7.8. Chest x-ray shows midline tracheostomy tube, and bilateral diffuse infiltrates. Objective - Vital Signs Vital signs: Vital Signs Temp 97.5 F L 12/11/23 04:00 Pulse 84 12/11/23 06:00 Resp 20 12/11/23 06:00 BP 138/98 12/11/23 06:00 Pulse Ox 99 12/11/23 06:00 FiO2 50 12/11/23 04:21 Intake & Output 12/10/23 12/10/23 12/11/23 06:59 18:59 06:59 Intake Total 7339.042 7140.000 1631.233 Output Total 1125 2760 1400 Balance -68.422 -264.000 231.233 Weight 119.408 kg 119.408 kg Intake: IV 620 1340 820 0.9 @ KVO 120 250 220 Invasive Line 5 90 Potassium Chloride 20 meq 100 In Water For Injection 1 100ml.bag @ 50 mls/hr IVPB Q2H [facility] Rx#: [id number] Vancomycin 2,000 mg In 500 1000 500 Sodium Chloride 0.9% 500 ml 500 ml @ 167 mls/hr IVPB Q8H [facility] Rx#: [id number] Intake, IV Titration 178.578 300.000 303.233 Amount propofoL 1,000 mg In 178.578 300.000 303.233 Empty Bag 1 bag @ 15 MCG/ KG/MIN 8.981 mls/hr IV . [id number] [facility] Rx#:[id number] Tube Feeding 228 456 418 Blood Product 310 Rc As-1 Unit 310 [id number] Other 30 90 90 Output: Urine 1125 1860 1400 Stool 900 Other: Voiding Method Indwelling Catheter Indwelling Catheter Indwelling Catheter ABP, PAP, CO, CI - Last Documented Arterial Blood Pressure 106/58 - Exam No acute distress, sedated, with a midline tracheostomy tube. HEENT examination is grossly unremarkable. Neck supple. Full range of motion. No adenopathy thyromegaly or neck vein distention. Cardiovascular examination reveals regular rhythm rate. S1-S2 normal. No S3 or S4. No discernible murmur noted. Heart rate 84 bpm. Lungs reveal bilateral coarse rhonchi. No wheezes or crackles. Breath sounds equal. Saturations are 99 %. Abdomen soft, with bowel sounds. No masses. Abdomen obese. PEG tube noted. Extremities are intact. No cyanosis clubbing or edema. Skin is without rash or lesion. Neurologic examination cannot be assessed at this time. - Labs CBC & Chem 7: 12/11/23 04:20 12/11/23 04:20 Labs: Abnormal Lab Results - Last 24 Hours (Table) 12/10/23 12/10/23 12/10/23 Range/Units 06:16 11:28 18:00 WBC 16.8 H (3.8-10.6) k/uL RBC 2.62 L (3.80-5.40) m/uL Hgb 7.6 L (11.4-16.0) gm/dL Hct 24.6 L (34.0-46.0) % MCHC 30.8 L (31.0-37.0) g/dL Chloride (98-107) mmol/L Creatinine (0.52-1.04) mg/dL POC Glucose (mg/dL) 124 H (70-110) mg/dL Calcium (8.4-10.2) mg/dL Crossmatch See Detail 12/11/23 12/11/23 Range/Units 04:20 04:20 WBC 16.3 H (3.8-10.6) k/uL RBC 2.58 L (3.80-5.40) m/uL Hgb 7.6 L (11.4-16.0) gm/dL Hct 24.5 L (34.0-46.0) % MCHC (31.0-37.0) g/dL Chloride 108 H (98-107) mmol/L Creatinine 0.37 L (0.52-1.04) mg/dL POC Glucose (mg/dL) (70-110) mg/dL Calcium 7.8 L (8.4-10.2) mg/dL Crossmatch Assessment and Plan Assessment: Acute hypoxic respiratory failure, currently intubated on mechanical ventilator, the patient has prolonged ventilator dependent respiratory failure and the patient was given tracheostomy tube for ventilator support and the patient currently has a Bivona #8. Patient remains on mechanical ventilator on pressure control mode. Chest x-ray was reviewed. Chest tube has been removed and the patient continues to have consolidation with areas of cavitation that is s taphylococcal pneumonia. Acute bilateral pneumonia complicated by bilateral pneumothoraces. The patient is post bilateral chest tube insertion. The patient was found to have bilateral empyema requiring bilateral chest tube insertion. No evidence of any air leak and the most recent CAT scan of the chest that was done on this patient showed some minimal residual fluid/collection in the lungs bilaterally. Chest rhythm removed and there is no evidence of any residual pneumothorax or pleural fluid. Acute bilateral empyema, this was related to Staph aureus/MRSA and the patient remains on vancomycin. Acute bilateral staphylococcal pneumonia with secondary cavitation and complication with bilateral pneumothoraces. The patient remains on vancomycin. Vancomycin trough on 12/07/2023 is 20. 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 Stool for send it has been negative and the patient is significantly feeding for nutritional support. Plan: Plan dated December 11, 2023. The patient continues on mechanical ventilatory support. The patient continues on pressure assist control ventilation. The patient is currently on propofol at 40 mcg/kg/min, and continues with vital high-protein at goal, which is 38 cc an hour. Right chest tube was removed on December 09. The patient continues on oral Diflucan. Repeat cultures have been negative. Transthoracic echocardiogram shows no evidence of valvular vegetations. Labs, x-rays, medications are re viewed. [facility] has been consulted. We will continue to follow the patient and make recommendations along the way. Prognosis is guarded. Blood gases are pending. The patient continues on vancomycin. Time with Patient: Greater than 30
[2023-12-11 06:27] LABS: ABG Base Excess 5.6 mmol/L; ABG HCO3 29 mmol/L (21-25); ABG Oxygen Saturation 98.6 % (94-97); ABG PCO2 41 mmHg (35-45); ABG PH 7.46 (7.35-7.45); ABG PO2 96 mmHg (83-108); ABG TCO2 31 mmol/L (19-24); Allen Test Performed? Yes
[2023-12-11] MEDS: POTASSIUM CHLORIDE 20 MEQ in WATER FOR INJECTION 1 100ML.BAG IVPB ONE (06:45)
--- NOTE | 2023-12-11 07:23 | P.PN ---
Subjective Progress Note Date: 12/11/23 Principal diagnosis: Acute hypoxic respiratory failure requiring mechanical ventilation, bilateral hydropneumothoraces, empyema, status post bilateral chest tube insertion, septic shock. History of MS, obesity, migraines, seizures, fibromyalgia, hypertension, asthma, anxiety/depression/bipolar disorder, polysubstance abuse POD #8 placement of tracheostomy and PEG tube by Dr. Johnson The patient was seen and examined this morning laying in bed in the intensive care unit, remains sedated and mechanically ventilated. Right pleural chest tube was removed yesterday. Remains on IV Vanco and oral diflucan by infectious disease. Patient does appear to be moving all extremities and following some commands per nursing. [facility] Objective - Vital Signs Vital signs: Vital Signs Temp 97.5 F L 12/11/23 04:00 Pulse 83 12/11/23 07:00 Resp 24 12/11/23 07:00 BP 151/102 12/11/23 07:00 Pulse Ox 99 12/11/23 07:00 FiO2 50 12/11/23 04:21 Intake & Output 12/10/23 12/11/23 12/11/23 18:59 06:59 18:59 Intake Total 2496.000 1631.233 205.102 Output Total 2760 1400 100 Balance -264.000 231.233 105.102 Weight 119.408 kg 122.13 kg Intake: IV 1340 820 120 0.9 @ KVO 250 220 20 Invasive Line 5 90 Potassium Chloride 20 meq 100 In Water For Injection 1 100ml.bag @ 50 mls/hr IVPB ONCE ONE Rx#: [id number] Potassium Chloride 20 meq 100 In Water For Injection 1 100ml.bag @ 50 mls/hr IVPB Q2H [facility] Rx#: [id number] Vancomycin 2,000 mg In 1000 500 Sodium Chloride 0.9% 500 ml 500 ml @ 167 mls/hr IVPB Q8H [facility] Rx#: [id number] Intake, IV Titration 300.000 303.233 47.102 Amount propofoL 1,000 mg In 300.000 303.233 47.102 Empty Bag 1 bag @ 15 MCG/ KG/MIN 8.981 mls/hr IV . Q11H9M [facility] Rx#:[id number] Tube Feeding 456 418 38 Blood Product 310 Rc As-1 Unit 310 [id number] Other 90 90 Output: Urine 1860 1400 100 Stool 900 Other: Voiding Method Indwelling Catheter Indwelling Catheter ABP, PAP, CO, CI - Last Documented Arterial Blood Pressure 106/58 - Exam CONSTITUTIONAL: Currently sedated on mechanical ventilation, laying in bed in the intensive care unit, moving around and fidgety RESPIRATORY: Lungs sounds diminished bilaterally. Respirations even, nonlabored on mechanical ventilation, current settings pressure-control mode, FiO2 50%, PEEP 5, respiratory rate 24. #8 trach tube present CARDIOVASCULAR: S1, S2 present. Regular rate and rhythm, sinus rhythm on telemetry. Palpable peripheral pulses bilaterally. Generalized trace edema present. No calf pain or tenderness noted. SCDs present. GASTROINTESTINAL: Abdomen soft, nontender, nondistended. Active bowel sounds present 4 quadrants. PEG tube present, TF infusing at 38 mL/hr. FMS present with liquid stool GENITOURINARY: Beth present draining clear, yellow urine. Output 3260 mL in the last 24 hours INTEGUMENTARY: Skin is warm and dry NEUROLOGIC: Sedated on mechanical ventilation INVASIVE LINES AND TUBES: Left subclavian triple lumen central line present. - Allied health notes Allied health notes reviewed: nursing - Labs CBC & Chem 7: 12/11/23 04:20 12/11/23 04:20 Labs: Abnormal Lab Results - Last 24 Hours (Table) 12/10/23 12/10/23 12/10/23 Range/Units 06:16 11:28 18:00 WBC 16.8 H (3.8-10.6) k/uL RBC 2.62 L (3.80-5.40) m/uL Hgb 7.6 L (11.4-16.0) gm/dL Hct 24.6 L (34.0-46.0) % MCHC 30.8 L (31.0-37.0) g/dL ABG pH (7.35-7.45) ABG HCO3 (21-25) mmol/L ABG Total CO2 (19-24) mmol/L ABG O2 Saturation (94-97) % Chloride (98-107) mmol/L Creatinine (0.52-1.04) mg/dL POC Glucose (mg/dL) 124 H (70-110) mg/dL Calcium (8.4-10.2) mg/dL Crossmatch See Detail 12/11/23 12/11/23 12/11/23 Range/Units 04:20 04:20 04:52 WBC 16.3 H (3.8-10.6) k/uL RBC 2.58 L (3.80-5.40) m/uL Hgb 7.6 L (11.4-16.0) gm/dL Hct 24.5 L (34.0-46.0) % MCHC (31.0-37.0) g/dL ABG pH 7.46 H (7.35-7.45) ABG HCO3 29 H (21-25) mmol/L ABG Total CO2 31 H (19-24) mmol/L ABG O2 Saturation 98.6 H (94-97) % Chloride 108 H (98-107) mmol/L Creatinine 0.37 L (0.52-1.04) mg/dL POC Glucose (mg/dL) (70-110) mg/dL Calcium 7.8 L (8.4-10.2) mg/dL Crossmatch - Imaging and Cardiology Chest x-ray: image reviewed Assessment and Plan Assessment: Acute hypoxic respiratory failure requiring mechanical ventilation, status post trach and PEG placement Bilateral hydropneumothoraces, empyema, status post bilateral chest tube insertion Septic shock, off vasopressors, MRSA in blood, pleural fluid, sputum and nasal swab, currently on vancomycin and diflucan, repeat BC 11/25 & 11/26 finalized as negative Chest pain, shortness of breath present on admission secondary to above History of MS Obesity Migraines Seizures Fibromyalgia Hypertension Asthma Anxiety/depression/bipolar disorder Polysubstance abuse Plan: Ventilator management per claim rep Antibiotics per infectious disease Medical management of other comorbidities per internal medicine, pulmonology, ID Will see again on an as-needed basis. Patient is cleared from our standpoint for transfer to [facility]
--- NOTE | 2023-12-11 07:39 | XR ---
EXAMINATION TYPE: XR chest 1V portable DATE OF EXAM: 12/11/2023 COMPARISON: 12/10/2023 HISTORY: Abnormal x-ray TECHNIQUE: Single frontal view of the chest is obtained. FINDINGS: Bilateral diffuse airspace disease with bilateral chest tubes. Small left-sided hydropneum othorax stable. Small right-sided pleural effusion stable. Tracheostomy tube and left-sided central l ine stable. A right-sided PICC line stable. Heart size normal. Osseous structures demonstrate degener ative changes. Surgical changes left shoulder. IMPRESSION: Stable diffuse bilateral airspace disease. Small left hydropneumothorax stable.
[2023-12-11] MEDS: hydrOXYzine pamoate 25 MG CAP PO SCH (09:13)
[2023-12-11] MEDS: FLUoxetine HCL 20 MG CAP PO SCH (09:14)
--- NOTE | 2023-12-11 10:05 | P.PN ---
Subjective Progress Note Date: 12/11/23 CHIEF COMPLAINT: Respiratory failure HISTORY OF PRESENT ILLNESS: Patient remains in the ICU on mechanical ventilation. She is status post tracheostomy and PEG tube placement. Patient is tolerating tube feeds. Awaiting possible transfer [facility] PHYSICAL EXAM: VITAL SIGNS: Reviewed. GENERAL: no acute distress. HEENT: Tracheostomy site clean dry and intact ABDOMEN: Soft. Nondistended. Nontender. PEG tube site clean dry and intact ASSESSMENT: 1. Severe protein calorie malnutrition 2. Respiratory failure with MRSA pneumonia, empyema and hydropneumothorax status post chest tube placement bilaterally PLAN: -Continue tube feeds -Continue supportive care -Awaiting Authorization for transfer to [facility] Physician Hr Administrative Assistant note has been reviewed by physician. Signing provider agrees with the documented findings, assessment, and plan of care. Objective - Vital Signs Vital signs: Vital Signs Temp 97.5 F L 12/11/23 04:00 Pulse 99 12/11/23 09:00 Resp 24 12/11/23 09:00 BP 149/101 12/11/23 09:00 Pulse Ox 98 12/11/23 09:00 FiO2 50 12/11/23 09:00 Intake & Output 12/10/23 12/11/23 12/11/23 18:59 06:59 18:59 Intake Total 2496.000 1631.233 783.671 Output Total 2760 1400 400 Balance -264.000 231.233 383.671 Weight 119.408 kg 122.13 kg Intake: IV 1340 820 660 0.9 @ KVO 250 220 60 Invasive Line 5 90 Potassium Chloride 20 meq 100 In Water For Injection 1 100ml.bag @ 50 mls/hr IVPB ONCE ONE Rx#: [id number] Potassium Chloride 20 meq 100 In Water For Injection 1 100ml.bag @ 50 mls/hr IVPB Q2H [facility] Rx#: [id number] Vancomycin 2,000 mg In 1000 500 500 Sodium Chloride 0.9% 500 ml 500 ml @ 167 mls/hr IVPB Q8H [facility] Rx#: [id number] Intake, IV Titration 300.000 303.233 85.671 Amount propofoL 1,000 mg In 300.000 303.233 85.671 Empty Bag 1 bag @ 15 MCG/ KG/MIN 8.981 mls/hr IV . Q11H9M [facility] Rx#:[id number] Tube Feeding 456 418 38 Blood Product 310 Rc As-1 Unit 310 [id number] Other 90 90 Output: Urine 1860 1400 400 Stool 900 Other: Voiding Method Indwelling Catheter Indwelling Catheter Indwelling Catheter ABP, PAP, CO, CI - Last Documented Arterial Blood Pressure 106/58 - Labs CBC & Chem 7: 12/11/23 04:20 12/11/23 04:20 Labs: Abnormal Lab Results - Last 24 Hours (Table) 12/10/23 12/10/23 12/10/23 Range/Units 06:16 11:28 18:00 WBC 16.8 H (3.8-10.6) k/uL RBC 2.62 L (3.80-5.40) m/uL Hgb 7.6 L (11.4-16.0) gm/dL Hct 24.6 L (34.0-46.0) % MCHC 30.8 L (31.0-37.0) g/dL ABG pH (7.35-7.45) ABG HCO3 (21-25) mmol/L ABG Total CO2 (19-24) mmol/L ABG O2 Saturation (94-97) % Chloride (98-107) mmol/L Creatinine (0.52-1.04) mg/dL POC Glucose (mg/dL) 124 H (70-110) mg/dL Calcium (8.4-10.2) mg/dL Crossmatch See Detail 12/11/23 12/11/23 12/11/23 Range/Units 04:20 04:20 04:52 WBC 16.3 H (3.8-10.6) k/uL RBC 2.58 L (3.80-5.40) m/uL Hgb 7.6 L (11.4-16.0) gm/dL Hct 24.5 L (34.0-46.0) % MCHC (31.0-37.0) g/dL ABG pH 7.46 H (7.35-7.45) ABG HCO3 29 H (21-25) mmol/L ABG Total CO2 31 H (19-24) mmol/L ABG O2 Saturation 98.6 H (94-97) % Chloride 108 H (98-107) mmol/L Creatinine 0.37 L (0.52-1.04) mg/dL POC Glucose (mg/dL) (70-110) mg/dL Calcium 7.8 L (8.4-10.2) mg/dL Crossmatch
[2023-12-11] MEDS: VANCOMYCIN TROUGH DUE 1 EACH MISC MISCELLANE ONE (10:42)
[2023-12-11 11:29] LABS: Glucose,Whole Blood 107 mg/dL (70-110)
[2023-12-11] MEDS: HYDROmorphone 1 MG/ML 1 ML SYRINGE IVP SCH (12:28)
[2023-12-11] MEDS: MAGNESIUM SULFATE-D5W PMX 1 GM in DEXTROSE/WATER 1 100ML.BAG IVPB ONE (12:29)
[2023-12-11] MEDS: QUEtiapine 25 MG TAB PO SCH (12:33)
--- NOTE | 2023-12-11 13:49 | P.PN ---
Subjective 43 year old female evaluated today in the intensive care unit. Patient is currently sedated and remains on the mechanical ventilator. Presents from the [facility] with shortness of breath and cough. Patient found to have bilateral pneumothorax and continues currently with right and left sided chest tubes. Chest xray today reveals continued diffuse bilateral airspace disease with extensive pleural parenchymal opacity. Continues on IV vancomycin due to MRSA bacteremia. White blood cell count today 24.2, hgb 7.1. Sodium 136, potassium 3.4. Remains on IV fentanyl, IV versed, IV propofol. Being considered from tracheostomy and PEG tube placement. Remains febrile with T-max 101.4 overnight. Unable to complete a review of systems as patient is currently intubated and sedated on the mechanical ventilator 12/05/2023 Patient is seen and evaluated in room at bedside; remains on the mechanical ventilator. -- Blood gases show pO2 75, pCO2 49, pH is 7.44. Labs include a white count of 16.7, hemoglobin 7.2, hematocrit 22.3, and a platelet count of 277,000. Sodium 138, potassium 3.6, chlorides 105, CO2 28, BUN 8, creatinine 0.35. The glucose is 123. The calcium is 7.3. Gram stain, and blood cultures, show evidence of methicillin-resistant Staph aureus. Chest x-ray shows a midline tracheostomy tube. The NG tube has been removed. The patient continues on vancomycin and Eraxis. 12/06/2023 Patient is seen and evaluated in room at bedside; remains on the ventilator. She is on volume assist-control; patient has been able to be weaned off of fentanyl - Blood gases show pO2 of 68, pCO2 48, pH is 7.51. White count 12.8, hemoglobin 7, hematocrit 23.1, and platelet count 282,000. Sodium 138, potassium 3.2, chlorides 100, CO2 37, BUN 6, creatinine 0.33. Glucose is 126. Albumin 1.9. All her previous cultures are showing evidence of methicillin-resistant Staph aureus. Chest x-ray shows diffuse bilateral airspace disease. Patient remains on vancomycin, and Eraxis for suspected fungemia. 12/07/2023 Patient is seen and evaluated in room at bedside; remains on the ventilator. She is on volume assist-control, rate 24, tidal volume 450, FiO2 50%, PEEP of 5. -- Blood gases show pO2 74, pCO2 47, pH is 7.51. The patient is getting lactated Ringer's at 20 cc an hour, vital high-protein at 38 cc an hour, which is goal, and propofol at 55 mcg/kg/min. -- patient CV Lasix 60 mg IV push per [employer] recommendation, and she cont inues on vancomycin and Eraxis. Bilateral chest tubes are still in place. White count 12.5, hemoglobin 7.1, hematocrit 22.4, platelet count was normal. Sodium 139, potassium 3.4, chlorides 102, CO2 37, BUN 7, creatinine 0.37. Glucose 119. Cultures all along have been positive for methicillin-resistant Staph aureus. Chest x-ray shows bilateral opacities, which are quite extensive. 12/08/23 : Dr Isaac assumed care Patient seen and evaluated in medical ICU patient remains intubated, on 50% FiO2, blood work reviewed, CBC showed WBC of 13.5 hemoglobin of 7.2 platelet count of 302. Arterial blood gas showed pH 7.49 pCO2 of 44 pO2 of 91, serum chemistry shows sodium 139 potassium 3.7 BUN 7 creatinine 0.39, stool C. difficile was negative. Patient continues to remain on antibiotic coverage managed by infectious disease, patient is s/p tracheostomy and PEG tube placement, followed by medical ICU team plan for removal of chest tube today by thoracic surgery. 12/09/23 Patient seen and evaluated at bedside, patient remains intubated on mechanical ventilation, followed by thoracic surgery, patient continues sedated with propofol, right pleural chest tube remains in place, patient had left pleural chest tube removed yesterday. Continue antibiotics, continue to remain critically ill. WBC 16.3 trending up, hemoglobin 7.9 arterial blood gas reviewed. Spontaneous breathing trial per pulmonary medicine 12/10/2023 Patient remains on mechanical ventilation, with pulmonary/critical care team following and help with management. Patient was admitted with severe bilateral pneumonia and acute hypoxic respiratory failure He was found to have bilateral pneumothoraces requiring chest tube, right chest tube was taken out today. Patient also on IV vancomycin for MRSA empyema. Patient also morbidly obese he has diarrhea, C. difficile negative, unremarkable, also on a scopolamine pa tc. Also 12/11/2023 Patient is lying in bed, not in severe distress but little agitated She denies pain Still has tracheostomy in place and she is on mechanical ventilation, PEEP 5, FiO2 50% Patient is obese and have 2 central lines Her vitals are stable today, has low-grade temperature of 100.3 today. Still has leukocytosis 16.3, hemoglobin 7.6 She remains on IV vancomycin and Diflucan Discussed the case with case management associate, patient could [facility] Objective - Vital Signs Vital signs: Vital Signs Temp 97.5 F L 12/11/23 04:00 Pulse 100 12/11/23 11:24 Resp 24 12/11/23 10:00 BP 149/101 12/11/23 10:00 Pulse Ox 99 12/11/23 10:00 FiO2 50 12/11/23 11:11 Intake & Output 12/10/23 12/11/23 12/11/23 18:59 06:59 18:59 Intake Total 2496.000 1631.233 803.671 Output Total 2760 1400 550 Balance -264.000 231.233 253.671 Weight 119.408 kg 122.13 kg Intake: IV 1340 820 680 0.9 @ KVO 250 220 80 Invasive Line 5 90 Potassium Chloride 20 meq 100 In Water For Injection 1 100ml.bag @ 50 mls/hr IVPB ONCE ONE Rx#: [id number] Potassium Chloride 20 meq 100 In Water For Injection 1 100ml.bag @ 50 mls/hr IVPB Q2H [facility] Rx#: [id number] Vancomycin 2,000 mg In 1000 500 500 Sodium Chloride 0.9% 500 ml 500 ml @ 167 mls/hr IVPB Q8H [facility] Rx#: [id number] Intake, IV Titration 300.000 303.233 85.671 Amount propofoL 1,000 mg In 300.000 303.233 85.671 Empty Bag 1 bag @ 15 MCG/ KG/MIN 8.981 mls/hr IV . Q11H9M [facility] Rx#:[id number] Tube Feeding 456 418 38 Blood Product 310 Rc As-1 Unit 310 [id number] Other 90 90 Output: Urine 1860 1400 550 Stool 900 Other: Voiding Method Indwelling Catheter Indwelling Catheter Indwelling Catheter ABP, PAP, CO, CI - Last Documented Arterial Blood Pressure 106/58 - Exam -GENERAL: The patient is intubated and sedated. Obese HEENT: Pupils are round and equally reacting to light. EOMI. No scleral icterus. No conjunctival pallor. Normocephalic, atraumatic. No pharyngeal erythema. No thyromegaly. CARDIOVASCULAR: S1 and S2 present. No murmurs, rubs, or gallops. -PULMONARY: C decreased breath sounds, no wheezing , no crackles. Chest tube in place ABDOMEN: Soft, nontender, nondistended, normoactive bowel sounds. No palpable organomegaly. MUSCULOSKELETAL: No joint swelling or deformity. EXTREMITIES: No cyanosis, clubbing, or pedal edema. NEUROLOGICAL: Gross neurological examination did not reveal any focal deficits. SKIN: No rashes. no petechiae. - Labs CBC & Chem 7: 12/11/23 04:20 12/11/23 04:20 Labs: Abnormal Lab Results - Last 24 Hours (Table) 12/10/23 12/10/23 12/11/23 Range/Units 06:16 18:00 04:20 WBC 16.8 H (3.8-10.6) k/uL RBC 2.62 L (3.80-5.40) m/uL Hgb 7.6 L (11.4-16.0) gm/dL Hct 24.6 L (34.0-46.0) % MCHC 30.8 L (31.0-37.0) g/dL ABG pH (7.35-7.45) ABG HCO3 (21-25) mmol/L ABG Total CO2 (19-24) mmol/L ABG O2 Saturation (94-97) % Chloride (98-107) mmol/L Creatinine (0.52-1.04) mg/dL Calcium (8.4-10.2) mg/dL Vancomycin Trough 33.8 H* ug/mL Crossmatch See Detail 12/11/23 12/11/23 12/11/23 Range/Units 04:20 04:20 04:52 WBC 16.3 H (3.8-10.6) k/uL RBC 2.58 L (3.80-5.40) m/uL Hgb 7.6 L (11.4-16.0) gm/dL Hct 24.5 L (34.0-46.0) % MCHC (31.0-37.0) g/dL ABG pH 7.46 H (7.35-7.45) ABG HCO3 29 H (21-25) mmol/L ABG Total CO2 31 H (19-24) mmol/L ABG O2 Saturation 98.6 H (94-97) % Chloride 108 H (98-107) mmol/L Creatinine 0.37 L (0.52-1.04) mg/dL Calcium 7.8 L (8.4-10.2) mg/dL Vancomycin Trough ug/mL Crossmatch Assessment and Plan Assessment: * Acute hypoxic respiratory failure requiring mechanical ventilation secondary to acute bilateral pneumonia, status post PEG and trach placement on 12/03/2023. * Acute bilateral pneumonia complicated by bilateral pneumothoraces. * Acute bilateral empyema, post bilateral chest tube insertion with purulent material draining from both lungs. * MRSA bacteremia * Anemia with iron studies revealing underlying iron deficiency. Status post 2 units PRBC on 12/02/2023 * septic shock * Morbid obesity * Polysubstance abuse * Hyponatremia * Transaminitis * History of seizure disorder Plan: Continue with mechanical ventilation and intubation as per pulmonary/critical care team Continue with IV vancomycin Also patient on p.o. Diflucan Monitor hemoglobin Patient also required chest tube DVT prophylaxis Lovenox Prognosis is guarded
--- NOTE | 2023-12-11 14:34 | P.PN ---
Subjective Progress Note Date: 12/09/23 Principal diagnosis: Reason for follow-up is sepsis MRSA pneumonia bacteremia and empyema Patient is a 43-year-old female past medical history significant for hypertension fibromyalgia asthma reflux seizure disorder currently incarcerated and presented from the local correction for evaluation of increasing shortness of breath and chest pain, patient did have evidence of bilateral hydropneumothorax requiring bilateral chest tube placement and did have a positive blood culture with MRSA. Patient is status post tracheostomy completed on 12/03/2023. On today's evaluation that is 12/09/2023,the patient did have a fever of 100.2 F this afternoon patient remains to be intubated on the vent through the trach, FiO2 is stable at 50% no significant purulent secretions through the ET patient been tolerating her tube feeds did have diarrhea for the patient did have fecal management system Patient white count is 16.3, creatinine is 0.43 Objective - Vital Signs Vital signs: Vital Signs Temp 100.2 F H 12/09/23 12:00 Pulse 99 12/09/23 13:00 Resp 24 12/09/23 13:00 BP 125/67 12/09/23 13:00 Pulse Ox 97 12/09/23 13:00 FiO2 50 12/09/23 12:00 Intake & Output 12/08/23 12/09/23 12/09/23 18:59 06:59 18:59 Intake Total 2009.398 7863.250 4332.461 Output Total 3720 3410 1875 Balance -1710.602 -2193.556 -848.539 Weight 128.7 kg 128.7 kg Intake: IV 720 277 580 0.9 @ KVO 120 110 80 Anidulafungin 100 mg In 100 Sodium Chloride 0.9% 100 ml @ 84 mls/hr IVPB DAILY [facility] Rx#:[id number] Vancomycin 2,000 mg In 500 167 500 Sodium Chloride 0.9% 500 ml 500 ml @ 167 mls/hr IVPB Q8H [facility] Rx#: [id number] Intake, IV Titration 963.398 393.444 142.461 Amount Vancomycin 2,000 mg In 500 Sodium Chloride 0.9% 500 ml 500 ml @ 167 mls/hr IVPB Q8H [facility] Rx#: [id number] propofoL 1,000 mg In 463.398 393.444 142.461 Empty Bag 1 bag @ 15 MCG/ KG/MIN 8.981 mls/hr IV . Q11H9M [facility] Rx#:[id number] Tube Feeding 266 456 304 Other 60 90 Output: Chest Tube Drainage 20 10 0 Chest Tube 0 Chest Tube Right 20 10 0 Urine 3700 3300 1875 Stool 100 Other: Voiding Method Indwelling Catheter Indwelling Catheter ABP, PAP, CO, CI - Last Documented Arterial Blood Pressure 106/58 - Exam GENERAL DESCRIPTION: Middle-aged female intubated through the trach RESPIRATORY SYSTEM: Unlabored breathing , coarse breath sounds bilaterally HEART: S1 S2 regular rate and rhythm , ABDOMEN: Soft , no tenderness EXTREMITIES: No edema feet - Labs CBC & Chem 7: 12/11/23 04:20 12/11/23 04:20 Labs: Abnormal Lab Results - Last 24 Hours (Table) 12/09/23 12/09/23 12/09/23 Range/Units 05:04 05:15 05:15 WBC 16.3 H (3.8-10.6) k/uL RBC 2.74 L (3.80-5.40) m/uL Hgb 7.9 L (11.4-16.0) gm/dL Hct 26.1 L (34.0-46.0) % MCHC 30.3 L (31.0-37.0) g/dL Neutrophils # 13.5 H (1.3-7.7) k/uL Eosinophils # 0.8 H (0-0.7) k/uL ABG pCO2 48 H (35-45) mmHg ABG HCO3 30 H (21-25) mmol/L ABG Total CO2 31 H (19-24) mmol/L ABG O2 Saturation 97.2 H (94-97) % Chloride 108 H (98-107) mmol/L Carbon Dioxide 31 H (22-30) mmol/L Creatinine 0.43 L (0.52-1.04) mg/dL Glucose 109 H (74-99) mg/dL POC Glucose (mg/dL) (70-110) mg/dL Calcium 8.1 L (8.4-10.2) mg/dL 12/09/23 12/09/23 Range/Units 05:18 12:14 WBC (3.8-10.6) k/uL RBC (3.80-5.40) m/uL Hgb (11.4-16.0) gm/dL Hct (34.0-46.0) % MCHC (31.0-37.0) g/dL Neutrophils # (1.3-7.7) k/uL Eosinophils # (0-0.7) k/uL ABG pCO2 (35-45) mmHg ABG HCO3 (21-25) mmol/L ABG Total CO2 (19-24) mmol/L ABG O2 Saturation (94-97) % Chloride (98-107) mmol/L Carbon Dioxide (22-30) mmol/L Creatinine (0.52-1.04) mg/dL Glucose (74-99) mg/dL POC Glucose (mg/dL) 114 H 116 H (70-110) mg/dL Calcium (8.4-10.2) mg/dL Assessment and Plan (1) Empyema Current Visit: Yes Status: Acute Code(s): J86.9 - PYOTHORAX WITHOUT FISTULA SNOMED Code(s): 258216025 (2) MRSA bacteremia Current Visit: Yes Status: Acute Code(s): R78.81 - BACTEREMIA; B95.62 - METHICILLIN RESIS STAPH INFCT CAUSING DISEASES [facility] SNOMED Code(s): 47824787087788563 (3) Pneumonia Current Visit: Yes Status: Acute Code(s): J18.9 - PNEUMONIA, UNSPECIFIED ORGANISM SNOMED Code(s): 344026069 (4) Pneumothorax Current Visit: Yes Status: Acute Code(s): J93.9 - PNEUMOTHORAX, UNSPECIFIED SNOMED Code(s): 32248958 Plan: 1patient presented to hospital with sepsis in this patient who did have a fever tachycardia elevated white count source is pulmonary in this patient noted evidence of bilateral pneumothorax and effusion with question of complicated pneumonia/empyema keeping in mind the patient is from local intermediate will need to cover for resistant gram-positive such as MRSA and gram-negative pathogen 2-patient blood sputum and pleural fluid culture with MRSA 3-Patient did clear her bacteremia as the blood culture from 11/26/2023 as well as 11/27/2023 has been negative patient did have a PICC line placement on 12/04/2023 4-patient did have a low-grade fever and white count is slightly up today that will be monitored closely for now continue with the vancomycin however if any further fever or worsening of the white count will benefit from a CT of the chest, 5-patient with oropharyngeal candidiasis, pharmacy called reporting less risk of interaction of Diflucan with her other medication and suggested transitioning her from Eraxis to Diflucan which was done 6-significant diarrhea antibiotic associated stool for C. difficile negative continue with the current supportive treatment Dictation was produced using [email or web address] dictation software. please excuse any grammatical, word or spelling errors. Time with Patient: Less than 30
--- NOTE | 2023-12-11 14:36 | P.PN ---
Subjective Progress Note Date: 12/10/23 Principal diagnosis: Reason for follow-up is sepsis MRSA pneumonia bacteremia and empyema Patient is a 43-year-old female past medical history significant for hypertension fibromyalgia asthma reflux seizure disorder currently incarcerated and presented from the local correction for evaluation of increasing shortness of breath and chest pain, patient did have evidence of bilateral hydropneumothorax requiring bilateral chest tube placement and did have a positive blood culture with MRSA. Patient is status post tracheostomy completed on 12/03/2023. On today's evaluation that is 12/10/2023, the patient continues to be febrile and did have a temperature of 101.4 degrees following right at noon, the patient remains to be on the vent through the trach FiO2 is stable at 50% patient been tolerating her tube feed still having diarrhea but no worsening output has been reported by nursing staff. Patient white count is 16.8, creatinine 0.41 Objective - Vital Signs Vital signs: Vital Signs Temp 99.2 F 12/10/23 04:00 Pulse 98 12/10/23 11:58 Resp 13 12/10/23 07:00 BP 119/94 12/10/23 07:00 Pulse Ox 100 12/10/23 07:00 FiO2 50 12/10/23 11:18 Intake & Output 12/09/23 12/10/23 12/10/23 18:59 06:59 18:59 Intake Total 9077.141 0359.578 10 Output Total 2665 1125 110 Balance -1416.902 -68.422 -100 Weight 119.408 kg Intake: IV 620 620 10 0.9 @ KVO 120 120 10 Vancomycin 2,000 mg In 500 500 Sodium Chloride 0.9% 500 ml 500 ml @ 167 mls/hr IVPB Q8H [facility] Rx#: [id number] Intake, IV Titration 172.098 178.578 Amount propofoL 1,000 mg In 172.098 178.578 Empty Bag 1 bag @ 15 MCG/ KG/MIN 8.981 mls/hr IV . Q11H9M [facility] Rx#:[id number] Tube Feeding 456 228 Other 30 Output: Chest Tube Drainage 0 Chest Tube Right 0 Urine 2515 1125 110 Stool 150 Other: Voiding Method Indwelling Catheter Indwelling Catheter # Bowel Movements 1 ABP, PAP, CO, CI - Last Documented Arterial Blood Pressure 106/58 - Exam GENERAL DESCRIPTION: Middle-aged female intubated through the trach RESPIRATORY SYSTEM: Unlabored breathing , coarse breath sounds bilaterally HEART: S1 S2 regular rate and rhythm , ABDOMEN: Soft , no tenderness EXTREMITIES: No edema feet - Labs CBC & Chem 7: 12/11/23 04:20 12/11/23 04:20 Labs: Abnormal Lab Results - Last 24 Hours (Table) 12/10/23 12/10/23 12/10/23 Range/Units 04:37 04:37 05:08 WBC 15.2 H (3.8-10.6) k/uL RBC 2.39 L (3.80-5.40) m/uL Hgb 6.9 L* (11.4-16.0) gm/dL Hct 22.3 L (34.0-46.0) % MCHC 30.9 L (31.0-37.0) g/dL Neutrophils # 12.8 H (1.3-7.7) k/uL ABG HCO3 29 H (21-25) mmol/L ABG Total CO2 30 H (19-24) mmol/L ABG O2 Saturation 97.8 H (94-97) % Potassium 3.4 L (3.5-5.1) mmol/L Creatinine 0.41 L (0.52-1.04) mg/dL POC Glucose (mg/dL) (70-110) mg/dL Calcium 7.9 L (8.4-10.2) mg/dL Crossmatch 12/10/23 12/10/23 Range/Units 06:16 11:28 WBC (3.8-10.6) k/uL RBC (3.80-5.40) m/uL Hgb (11.4-16.0) gm/dL Hct (34.0-46.0) % MCHC (31.0-37.0) g/dL Neutrophils # (1.3-7.7) k/uL ABG HCO3 (21-25) mmol/L ABG Total CO2 (19-24) mmol/L ABG O2 Saturation (94-97) % Potassium (3.5-5.1) mmol/L Creatinine (0.52-1.04) mg/dL POC Glucose (mg/dL) 124 H (70-110) mg/dL Calcium (8.4-10.2) mg/dL Crossmatch See Detail Assessment and Plan (1) Empyema Current Visit: Yes Status: Acute Code(s): J86.9 - PYOTHORAX WITHOUT FISTULA SNOMED Code(s): 419862255 (2) MRSA bacteremia Current Visit: Yes Status: Acute Code(s): R78.81 - BACTEREMIA; B95.62 - METHICILLIN RESIS STAPH INFCT CAUSING DISEASES CLASSD ELSWHR SNOMED Code(s): 97082506509194957 (3) Pneumonia Current Visit: Yes Status: Acute Code(s): J18.9 - PNEUMONIA, UNSPECIFIED ORGANISM SNOMED Code(s): 662332014 (4) Pneumothorax Current Visit: Yes Status: Acute Code(s): J93.9 - PNEUMOTHORAX, UNSPECIFIED SNOMED Code(s): 54599099 Plan: 1patient presented to hospital with sepsis in this patient who did have a fever tachycardia elevated white count source is pulmonary in this patient noted evidence of bilateral pneumothorax and effusion with question of complicated pneumonia/empyema keeping in mind the patient is from local long term will need to cover for resistant gram-positive such as MRSA and gram-negative pathogen 2-patient blood sputum and pleural fluid culture with MRSA 3-Patient did clear her bacteremia as the blood culture from 11/26/2023 as well as 11/27/2023 has been negative patient did have a PICC line placement on 12/04/2023 4-patient did have a fever persistent which is slightly concerning white count is also elevated will benefit from a CT of the chest admission evidence of any pus pocket that may need to be drained further for now covered with vancomycin 5-patient with oropharyngeal candidiasis, patient is currently covered with Diflucan 6-significant diarrhea antibiotic associated stool for C. difficile negative c ontinue with the current supportive treatment Dictation was produced using [employer] dictation software. please excuse any grammatical, word or spelling errors. Time with Patient: Less than 30
--- NOTE | 2023-12-11 14:38 | P.PN ---
Subjective Progress Note Date: 12/11/23 Principal diagnosis: Reason for follow-up is sepsis MRSA pneumonia bacteremia and empyema Patient is a 43-year-old female past medical history significant for hypertension fibromyalgia asthma reflux seizure disorder currently incarcerated and presented from the local prison for evaluation of increasing shortness of breath and chest pain, patient did have evidence of bilateral hydropneumothorax requiring bilateral chest tube placement and did have a positive blood culture with MRSA. Patient is status post tracheostomy completed on 12/03/2023. On today's evaluation that is 12/11/2023, Patient did have improvement her fever pattern with a temperature of 100.3 at midnight and the patient is afebrile this morning, the patient remains to be on the vent through the trach FiO2 stable at 50%, patient has been tolerating her tube feeds did have diarrhea for the patient did have a fecal management system no worsening output has been reported. Patient did have a white count of 16.3 creatinine is 0.37 Vanco trough is 33.8 Objective - Vital Signs Vital signs: Vital Signs Temp 98.2 F 12/11/23 12:00 Pulse 93 12/11/23 14:00 Resp 24 12/11/23 14:00 BP 136/88 12/11/23 14:00 Pulse Ox 98 12/11/23 14:00 FiO2 50 12/11/23 14:00 Intake & Output 12/10/23 12/11/23 12/11/23 18:59 06:59 18:59 Intake Total 2496.000 2450.297 8222.659 Output Total 2760 1400 1225 Balance -264.000 231.233 90.659 Weight 119.408 kg 122.13 kg Intake: IV 1340 820 860 0.9 @ KVO 250 220 160 Invasive Line 5 90 Magnesium Sulfate-D5w Pmx 100 1 gm In Dextrose/Water 1 100ml.bag @ 100 mls/hr IVPB ONCE ONE Rx#: [id number] Potassium Chloride 20 meq 100 In Water For Injection 1 100ml.bag @ 50 mls/hr IVPB ONCE ONE Rx#: [id number] Potassium Chloride 20 meq 100 In Water For Injection 1 100ml.bag @ 50 mls/hr IVPB Q2H [facility] Rx#: [id number] Vancomycin 2,000 mg In 1000 500 500 Sodium Chloride 0.9% 500 ml 500 ml @ 167 mls/hr IVPB Q8H [facility] Rx#: [id number] Intake, IV Titration 300.000 303.233 91.659 Amount propofoL 1,000 mg In 300.000 303.233 91.659 Empty Bag 1 bag @ 15 MCG/ KG/MIN 8.981 mls/hr IV . Q11H9M [facility] Rx#:[id number] Tube Feeding 456 418 304 Blood Product 310 Rc As-1 Unit 310 [id number] Other 90 90 60 Output: Urine 1860 1400 1225 Stool 900 Other: Voiding Method Indwelling Catheter Indwelling Catheter Indwelling Catheter ABP, PAP, CO, CI - Last Documented Arterial Blood Pressure 106/58 - Exam GENERAL DESCRIPTION: Middle-aged female intubated through the trach RESPIRATORY SYSTEM: Unlabored breathing , coarse breath sounds bilaterally HEART: S1 S2 regular rate and rhythm , ABDOMEN: Soft , no tenderness EXTREMITIES: No edema feet - Labs CBC & Chem 7: 12/11/23 04:20 12/11/23 04:20 Labs: Abnormal Lab Results - Last 24 Hours (Table) 12/10/23 12/10/23 12/11/23 Range/Units 06:16 18:00 04:20 WBC 16.8 H (3.8-10.6) k/uL RBC 2.62 L (3.80-5.40) m/uL Hgb 7.6 L (11.4-16.0) gm/dL Hct 24.6 L (34.0-46.0) % MCHC 30.8 L (31.0-37.0) g/dL ABG pH (7.35-7.45) ABG HCO3 (21-25) mmol/L ABG Total CO2 (19-24) mmol/L ABG O2 Saturation (94-97) % Chloride (98-107) mmol/L Creatinine (0.52-1.04) mg/dL Calcium (8.4-10.2) mg/dL Vancomycin Trough 33.8 H* ug/mL Crossmatch See Detail 12/11/23 12/11/23 12/11/23 Range/Units 04:20 04:20 04:52 WBC 16.3 H (3.8-10.6) k/uL RBC 2.58 L (3.80-5.40) m/uL Hgb 7.6 L (11.4-16.0) gm/dL Hct 24.5 L (34.0-46.0) % MCHC (31.0-37.0) g/dL ABG pH 7.46 H (7.35-7.45) ABG HCO3 29 H (21-25) mmol/L ABG Total CO2 31 H (19-24) mmol/L ABG O2 Saturation 98.6 H (94-97) % Chloride 108 H (98-107) mmol/L Creatinine 0.37 L (0.52-1.04) mg/dL Calcium 7.8 L (8.4-10.2) mg/dL Vancomycin Trough ug/mL Crossmatch Assessment and Plan (1) Empyema Current Visit: Yes Status: Acute Code(s): J86.9 - PYOTHORAX WITHOUT FISTULA SNOMED Code(s): 484590576 (2) MRSA bacteremia Current Visit: Yes Status: Acute Code(s): R78.81 - BACTEREMIA; B95.62 - METHICILLIN RESIS STAPH INFCT CAUSING DISEASES CLASSD [facility] SNOMED Code(s): 46349063036466795 (3) Pneumonia Current Visit: Yes Status: Acute Code(s): J18.9 - PNEUMONIA, UNSPECIFIED ORGANISM SNOMED Code(s): 589764392 (4) Pneumothorax Current Visit: Yes Status: Acute Code(s): J93.9 - PNEUMOTHORAX, UNSPECIFIED SNOMED Code(s): 60165174 Plan: 1patient presented to hospital with sepsis in this patient who did have a fever tachycardia elevated white count source is pulmonary in this patient noted evidence of bilateral pneumothorax and effusion with question of complicated pneumonia/empyema keeping in mind the patient is from local nursing home will need to cover for resistant gram-positive such as MRSA and gram-negative pathogen 2-patient blood sputum and pleural fluid culture with MRSA 3-Patient did clear her bacteremia as the blood culture from 11/26/2023 as well as 11/27/2023 has been negative patient did have a PICC line placement on 12/04/2023 4-patient did have a fever persistent which is slightly concerning white count is also elevated we will go ahead and check a CT of the chest without any contrast to make sure no evidence of any residual empyema that need to be drained further patient is covered with vancomycin keeping mind the trough is elevated does need to be cut back to keep the trough around 15 with a culture negative for [place] and the patient is on propofol drug interaction may be responsible for some of this fever we will discontinue Diflucan. 5patient with persistent diarrhea stool for C. difficile negative will add Questran for symptomatic relief Dictation was produced using [employer] dictation software. please excuse any grammatical, word or spelling errors. Time with Patient: Less than 30
[2023-12-11] MEDS ORDERED: QUEtiapine 25 MG TAB PO SCH (16:00)
[2023-12-11] MEDS: LOPERAMIDE 2 MG CAP PO STA (16:40)
[2023-12-11] MEDS: LOPERAMIDE 2 MG CAP PO SCH (16:41)
[2023-12-11] MEDS: CHOLESTYRAMINE (WITH SUGAR) 4 GM PACKET PO SCH (16:42)
[2023-12-11] MEDS: LORazepam 1 MG/0.5 ML VIAL IV PRN (17:21)
[2023-12-11 17:32] LABS: Potassium 4.4 mmol/L (3.5-5.1)
[2023-12-11 20:46] LABS: Appearance,Urine Turbid (Clear); Bacteria,Urine Rare /hpf; Bilirubin,Urine Negative (Negative); Blood,Urine Small (Negative); Color,Urine Light Yellow; Glucose,Urine (UA) Negative (Negative); Ketones,Urine Negative (Negative); Leukocyte Esterase,Urine Trace (Negative); Mucus,Urine Moderate /hpf; Nitrite,Urine Negative (Negative); PH, Urine 5.5 (5.0-8.0); Protein,Urine Negative (Negative); RBC,Urine 8 /hpf (0-5); Specific Gravity,Urine 1.016 (1.001-1.035); Squamous Epithelial Cell,Urine 6 /hpf (0-4); Urobilinogen,Urine <2.0 mg/dL (<2.0); WBC,Urine 6 /hpf (0-5)
--- NOTE | 2023-12-11 22:25 | CT ---
EXAMINATION TYPE: CT chest wo con DATE OF EXAM: 12/11/2023 COMPARISON: Most recent chest CT December 05, 2023 and older CTs. HISTORY: Empyema and persistent fever CT DLP: 1009.9 mGycm. Automated Exposure Control for Dose Reduction was Utilized. TECHNIQUE: CT scan of the thorax is performed without IV contrast. FINDINGS: LUNGS: Left sided anterior superior pneumothorax shows continued slight improved from most recent elida or CTs. Small bilateral pleural fluid collections remain present. Interval removal of right-sided mega st tube. Multifocal consolidations in the right lung with largest consolidation seen at the right hil ar region extending superiorly redemonstrated. Multifocal consolidations most prominent centrally in the left lung are redemonstrated. More prominent cystic change in the left infrahilar region extendin g anteriorly is noted. MEDIASTINUM: Stable tracheostomy tube. No cardiomegaly or pericardial effusion is seen. OTHER: Stable right-sided PICC line. Stable left subclavian central venous catheter. Hepatomegaly is noted. Mild to Moderate diffuse subcutaneous edema is improved from most recent prior greatest over t he abdomen. Scoliotic curvature is seen. IMPRESSION: 1. Continued slight improvement in left sided pneumothorax. Interval left right-sided chest tube with out pneumothorax seen currently. 2. Stable small bilateral pleural fluid collections improving diffuse subcutaneous edema is noted. 3. Fairly similar bilateral multifocal consolidations with larger central consolidations in both lung s identified.
[2023-12-11 23:25] LABS: Glucose,Whole Blood 98 mg/dL (70-110)
[2023-12-12] MEDS: VANCOMYCIN 1,750 MG in SODIUM CHLORIDE 0.9% 500 ML 500 ML IVPB SCH (01:39)
[2023-12-12] MEDS: VANCOMYCIN TROUGH DUE 1 EACH MISC MISCELLANE ONE (01:39)
[2023-12-12 05:52] LABS: ABG Base Excess 7.4 mmol/L; ABG HCO3 31 mmol/L (21-25); ABG Oxygen Saturation 96.7 % (94-97); ABG PCO2 45 mmHg (35-45); ABG PH 7.45 (7.35-7.45); ABG PO2 77 mmHg (83-108); ABG TCO2 33 mmol/L (19-24); Allen Test Performed? Yes
[2023-12-12 06:09] LABS: Glucose,Whole Blood 104 mg/dL (70-110)
[2023-12-12 06:13] LABS: Basophils # (A) 0.1 k/uL (0-0.2); Basophils % (A) 0 %; Eosinophils # (A) 0.6 k/uL (0-0.7); Eosinophils % (A) 4 %; HCT 26.7 % (34.0-46.0); HGB 8.1 gm/dL (11.4-16.0); Hypochromasia Moderate; Lymphocytes # (A) 1.1 k/uL (1.0-4.8); Lymphocytes % (A) 7 %; MCH 28.6 pg (25.0-35.0); MCHC 30.4 g/dL (31.0-37.0); MCV 94.3 fL (80.0-100.0); Mean Platelet Volume 8.3; Monocytes # (A) 0.7 k/uL (0-1.0); Monocytes % (A) 4 %; Neutrophils # (A) 13.8 k/uL (1.3-7.7); Neutrophils % (A) 84 %; Platelet Count 386 k/uL (150-450); Poikilocytosis Slight; RBC 2.83 m/uL (3.80-5.40); RDW 15.1 % (11.5-15.5); WBC 16.4 k/uL (3.8-10.6)
[2023-12-12 06:26] LABS: ALT 18 U/L (4-34); AST 29 U/L (14-36); African American GFR (CKD) >90 (>60 ml/min/1.73 sqM); Albumin 2.5 g/dL (3.5-5.0); Alkaline Phosphatase 62 U/L (38-126); Anion Gap 3 mmol/L; Blood Urea Nitrogen 5 mg/dL (7-17); Carbon Dioxide 30 mmol/L (22-30); Chloride 105 mmol/L (98-107); Glucose 101 mg/dL (74-99); Magnesium 1.7 mg/dL (1.6-2.3); Non-African American GFR(CKD) >90 (>60 ml/min/1.73 sqM); Potassium 3.7 mmol/L (3.5-5.1); Sodium 138 mmol/L (137-145); Total Bilirubin 0.8 mg/dL (0.2-1.3); Total Protein 6.1 g/dL (6.3-8.2)
[2023-12-12 06:39] LABS: C Reactive Protein 16.4 mg/dL (<1.0)
[2023-12-12] MEDS: POTASSIUM BICARBONATE/CIT AC 20 MEQ TABLET.EFF NG-TUBE SCH (06:46)
--- NOTE | 2023-12-12 07:52 | XR ---
EXAMINATION TYPE: XR chest 1V portable DATE OF EXAM: 12/12/2023 COMPARISON: 12/10/2022 HISTORY: Shortness of breath TECHNIQUE: Single frontal view of the chest is obtained. FINDINGS: Bilateral diffuse airspace disease with bilateral chest tubes. Small left-sided hydropneum othorax stable. Small right-sided pleural effusion stable. Tracheostomy tube and left-sided central l ine stable. A right-sided PICC line stable. Heart size normal. Osseous structures demonstrate degener ative changes. Surgical changes left shoulder. Air in the soft tissues of the right neck may be posit ional correlate clinically. Small amount of subcutaneous air not excluded. IMPRESSION: Stable diffuse bilateral airspace disease. Small left hydropneumothorax stable. There is air attenuat ion soft tissue the right neck may be positional versus subcutaneous air.
[2023-12-12] MEDS: HYDROmorphone 1 MG/ML 1 ML SYRINGE IVP STA (11:39)
[2023-12-12 12:16] LABS: Glucose,Whole Blood 112 mg/dL (70-110)
[2023-12-12] MEDS: HYDROmorphone 1 MG/ML 1 ML SYRINGE IVP SCH (12:28)
--- NOTE | 2023-12-12 13:11 | P.PN ---
Subjective Progress Note Date: 12/12/23 On today's evaluation of 12/08/2023, the patient is being seen for a follow-up. This morning, the patient is still sedated with propofol at 55 mcg/kg/min. She seems to be arousable and she withdraws to painful stimulation. She has profound weakness in all 4 extremities. The patient remains on the mechanical ventilator. She has never worn a tracheostomy tube that was inserted for prolonged respiratory failure and the patient has a Bivona #8. She is currently on assist-control mode of mechanical ventilation at a rate of 24, tidal volume of 450, FiO2 of 50% with a PEEP of 5. Pulmonary artery pressures 43 peak and 31 static airway pressure. The blood gas from today shows a pH of 7.54 with a pCO2 of 43 and pO2 of 65. The patient's right-sided chest tube has drained about 80 cc over the past 24 hours and no output from the left-sided chest tube. She has a fluid balance of -4.3 L over the past 24 hours as the patient was given diuretics. The rest of the labs from today shows a WBC count of 13.5 with a hemoglobin of 7.2 and a platelet count of 302. Sodium is at 139, potassium is at 3.7, BUN is at 7 with a creatinine of 0.39. Blood sugar is adequately controlled for now. The patient is receiving enteral feeding for nutritional support. She is currently afebrile. No pressors on board. 12/09/2023, I am seeing the patient for a follow-up. This morning, the patient remains on propofol at 65 mcg/kg/min. She is arousable and she is in the process of getting a sedation holiday at this point. The patient remains on the mechanical ventilator. The patient has a tracheostomy tube in place. Left- sided chest tube was removed. Right-sided chest tube still in place with a output being minimal at this point in time and the chest was attached to waterseal. Meanwhile, the repeat chest x-ray still showing bilateral areas of consolidation and cavitation. No clear indication of underlying pneumothorax. The patient is on assist-control mode at rate of 24, tidal volume of 375 with a PEEP of 5 and FiO2 of 50%. pH is at 7.4 with a pCO2 of 48 and pO2 of 85. The patient is on vital HP at a rate of 38 cc an hour. The patient is having liquidy diarrhea and the patient has a fecal management system in place. Stool for C. difficile has been essentially negative. She is afebrile. She is hemodynamically stable. On today's blood work, the WBC count is at 16.3 with a hemoglobin 7.9 and a platelet count of 380. BUN is at 7 with a creatinine of 0.4 and sodium levels of 141. The patient remains on vancomycin. The patient is also on Diflucan 100 mg p.o. daily. The patient on Lovenox for DVT prophylaxis. On today's evaluation of 12/10/2023, the patient was restarted on propofol. As the patient was being watched up, she had increased anxiety and restlessness and the patient was placed on propofol. While on propofol, she remains responsive. She is calm and comfortable after being washed out. She has a fecal management system in place which was leaking and she had to be washed out extensively. The patient continues to have liquidy diarrhea. Stool for significant been negative. Meanwhile, on today's evaluation, he is on pressure control mode of mechanical ventilation with a pressure control of 30, PEEP of 5, rate of 24 with an FiO2 of 50%. Expiratory time is 1. The blood gas from earlier this morning showed a pH of 7.45 with a pCO2 45 pO2 of 88. The patient's chest x-ray showed bilateral consolidation and some areas of cavitation. No evidence of any pneumothorax. Right-sided chest tube was removed today. The patient remains on enteral feeding with vital high-protein at rate of 30 cc an hour. Hemoglobin is dropped down to 6.9 and the patient is going to receive a unit of packed RBC. BUN is at 7 with a creatinine of 0.4 and electrolytes are all stable with a potassium level of 3.4 that needs to be replaced. White cell count is 15.2. Remains on vancomycin. Most recent vancomycin level from 12/07/2023 was 20.9. No other significant events overnight. Hemodynamically stable. 12/12/2023, I am seeing the patient for a follow-up. She is awake and alert and at times she gets quite restless and agitated. Nevertheless, overall condition remains stable. The patient remains on pressure control mode of mechanical ventilation at rate of 24, pressure control of 25, inspiratory time of 1 and FiO2 of 40% with a +5 of PEEP. Chest tubes have been removed and the patient has bilateral consolidation and cavitary infiltrates related to staphylococcal pneumonia. The patient is producing adequate amount of urine output in the order of 20 cc an hour. She has a fecal management system in place and the stool output has improved. She is on vital high-protein at rate of 38 cc an hour. Her blood gas from today showed a pH of 7.45 with a pCO2 of 45 and a pO2 of 77. WBC count of 16.4 with a hemoglobin 8.1 and a platelet count of 386. BUN is at 5 with a creatinine of 0.3 and sodium levels at 138. LFTs are normal. Procalcitonin level is 0.14. She is communicating. She is a bit lethargic. At times she gets restless and agitated. For the most part, she has not required any drips to control her synchrony with the mechanical ventilator. Objective - Vital Signs Vital signs: Vital Signs Temp 99 F 12/12/23 08:00 Pulse 133 H 12/12/23 09:00 Resp 34 H 12/12/23 09:00 BP 124/75 12/12/23 09:00 Pulse Ox 91 L 12/12/23 09:00 FiO2 40 12/12/23 08:00 Intake & Output 12/11/23 12/12/23 12/12/23 18:59 06:59 18:59 Intake Total 1878.653 0 206 Output Total 1925 3280 910 Balance -46.347 -3280 -704 Weight 130.75 kg Intake: IV 1420 0 0 0.9 @ KVO 220 0 0 Magnesium Sulfate-D5w Pmx 100 1 gm In Dextrose/Water 1 100ml.bag @ 100 mls/hr IVPB ONCE ONE Rx#: [id number] Potassium Chloride 20 meq 100 In Water For Injection 1 100ml.bag @ 50 mls/hr IVPB ONCE ONE Rx#: [id number] Vancomycin 2,000 mg In 1000 Sodium Chloride 0.9% 500 ml 500 ml @ 167 mls/hr IVPB Q8H [facility] Rx#: [id number] Intake, IV Titration 94.653 Amount propofoL 1,000 mg In 94.653 Empty Bag 1 bag @ 15 MCG/ KG/MIN 8.981 mls/hr IV . Q11H9M [facility] Rx#:[id number] Tube Feeding 304 76 Other 60 130 Output: Urine 5 3280 910 Other: Voiding Method Indwelling Catheter Indwelling Catheter # Bowel Movements 300 ABP, PAP, CO, CI - Last Documented Arterial Blood Pressure 106/58 - Exam CONSTITUTIONAL: Mechanical ventilation, laying in bed in the intensive care unit, opens eyes with verbal stimuli., Currently on low-dose propofol RESPIRATORY: Lungs sounds diminished bilaterally. Respirations symmetrical, nonlabored with mechanical ventilator support, current settings assist-control mode, pressure control mode of mechanical ventilation. CARDIOVASCULAR: S1, S2 present. Regular rate and rhythm, bedside telemetry showing normal sinus rhythm heart rate 90 bpm. Palpable peripheral pulses bilaterally. Generalized trace edema present. No calf pain or tenderness noted. SCDs present. GASTROINTESTINAL: Abdomen soft, nontender, nondistended. Active bowel sounds present 4 quadrants. PEG tube present with tube feedings infusing at goal rate. GENITOURINARY: Beth present draining clear, yellow urine. INTEGUMENTARY: Skin is warm and dry, no clubbing or cyanosis is present. Dressings to her bilateral chest tube insertion sites clean dry and intact. NEUROLOGIC: Mechanical ventilation, unable to accurately assess at this time. INVASIVE LINES AND TUBES: All of the chest rhythm removed. - Labs CBC & Chem 7: 12/12/23 05:59 12/12/23 05:59 Labs: Abnormal Lab Results - Last 24 Hours (Table) 12/11/23 12/11/23 12/12/23 Range/Units 04:20 19:00 05:50 WBC (3.8-10.6) k/uL RBC (3.80-5.40) m/uL Hgb (11.4-16.0) gm/dL Hct (34.0-46.0) % MCHC (31.0-37.0) g/dL Neutrophils # (1.3-7.7) k/uL ABG pO2 77 L (83-108) mmHg ABG HCO3 31 H (21-25) mmol/L ABG Total CO2 33 H (19-24) mmol/L BUN (7-17) mg/dL Creatinine (0.52-1.04) mg/dL Glucose (74-99) mg/dL Calcium (8.4-10.2) mg/dL C-Reactive Protein (<1.0) mg/dL Total Protein (6.3-8.2) g/dL Albumin (3.5-5.0) g/dL Urine Appearance Turbid H (Clear) Urine Blood Small H (Negative) Ur Leukocyte Esterase Trace H (Negative) Urine RBC 8 H (0-5) /hpf Urine WBC 6 H (0-5) /hpf Urine WBC Clumps Few H (None) /hpf Ur Squamous Epith Cells 6 H (0-4) /hpf Urine Bacteria Rare H (None) /hpf Urine Mucus Moderate H (None) /hpf Vancomycin Trough 33.8 H* ug/mL 12/12/23 12/12/23 Range/Units 05:59 05:59 WBC 16.4 H (3.8-10.6) k/uL RBC 2.83 L (3.80-5.40) m/uL Hgb 8.1 L (11.4-16.0) gm/dL Hct 26.7 L (34.0-46.0) % MCHC 30.4 L (31.0-37.0) g/dL Neutrophils # 13.8 H (1.3-7.7) k/uL ABG pO2 (83-108) mmHg ABG HCO3 (21-25) mmol/L ABG Total CO2 (19-24) mmol/L BUN 5 L (7-17) mg/dL Creatinine 0.31 L (0.52-1.04) mg/dL Glucose 101 H (74-99) mg/dL Calcium 8.0 L (8.4-10.2) mg/dL C-Reactive Protein 16.4 H (<1.0) mg/dL Total Protein 6.1 L (6.3-8.2) g/dL Albumin 2.5 L (3.5-5.0) g/dL Urine Appearance (Clear) Urine Blood (Negative) Ur Leukocyte Esterase (Negative) Urine RBC (0-5) /hpf Urine WBC (0-5) /hpf Urine WBC Clumps (None) /hpf Ur Squamous Epith Cells (0-4) /hpf Urine Bacteria (None) /hpf Urine Mucus (None) /hpf Vancomycin Trough ug/mL Assessment and Plan Plan: Acute hypoxic respiratory failure, currently intubated on mechanical ventilator, the patient has prolonged ventilator dependent respiratory failure and the patient was given tracheostomy tube for ventilator support and the patient currently has a Bivona #8. Patient remains on mechanical ventilator on pressure control mode. Chest x-ray was reviewed. Chest tube has been removed and the p atient continues to have consolidation with areas of cavitation that is staphylococcal pneumonia. Chest x-ray findings are stable. The patient is stable on a pressure control mode of mechanical ventilation. Lungs are quite stiff. Weaning parameters are still poor. Chest tubes have been removed. Acute bilateral pneumonia complicated by bilateral pneumothoraces. The patient is post bilateral chest tube insertion. The patient was found to have bilateral empyema requiring bilateral chest tube insertion. No evidence of any air leak and the most recent CAT scan of the chest that was done on this patient showed some minimal residual fluid/collection in the lungs bilaterally. Chest rhythm removed and there is no evidence of any residual pneumothorax or pleural fluid. Acute bilateral empyema, this was related to Staph aureus/MRSA and the patient remains on vancomycin. Acute bilateral staphylococcal pneumonia with secondary cavitation and complication with bilateral pneumothoraces. The patient remains on vancomycin. 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 Stool for send it has been negative and the patient is significantly feeding for nutritional support. Plan Continue the ventilator support keep the patient on pressure control mode of mechanical ventilation pressure control of 25 with a PEEP of 5 and an inspiratory time of 1, weaning parameters are poor and unable to do any further weaning at this point in time. Chest tubes have been removed Questran and Lomotil for diarrhea, and stool output has improved. Enteral feeding for nutritional support IV vancomycin Oral Diflucan Follow-up cultures have been negative Transthoracic echocardiogram shows no evidence of any vegetation Check serum cortisol level Put the patient on Lovenox 40 mg subcu for DVT prophylaxis Consult select specialty, possible transfer to select specialty once ready. Will continue to follow make further recommendations based on her progress. Lupis s evaluation was done more than 45 minutes excluding time to do any procedures. Time with Patient: Greater than 30
[2023-12-12 13:16] VITALS: TEMP 100; BMI 46.5
--- NOTE | 2023-12-12 13:33 | P.DS ---
Providers Date of admission: 11/23/23 20:40 Attending physician: Yury Smith Consults: 11/23/23 20:40 Consult Physician Urgent Consulting Provider: Sharmaine Caicedo Consult Reason/Comments: resp failure bilateral pneumothorax, empyema Do you want consulting provider notified?: Already Contacted 11/24/23 09:20 Consult Physician Routine Consulting Provider: Domingo Ovalle Consult Reason/Comments: Pneumonia. empyema Do you want consulting provider notified?: Yes 11/24/23 09:22 Consult Physician Routine Consulting Provider: Jose Royal Consult Reason/Comments: ? lytics, decortication Do you want consulting provider notified?: Yes 12/01/23 08:44 Consult Physician Routine Consulting Provider: Delbert Johnson Consult Reason/Comments: PEG Do you want consulting provider notified?: Yes Primary care physician: Soto Mukherjee MD Hospital Course: Diagnosis: Acute hypoxic respiratory failure requiring mechanical ventilation secondary to acute bilateral pneumonia, status post PEG and trach placement on 12/03/2023. Acute bilateral pneumonia complicated by bilateral pneumothoraces. Acute bilateral empyema, post bilateral chest tube insertion with purulent material draining from both lungs. MRSA bacteremia Dysphagia s/p PEG Anemia with iron studies revealing underlying iron deficiency. Status post 2 units PRBC on 12/02/2023 septic shock Morbid obesity Polysubstance abuse Hyponatremia Transaminitis History of seizure disorder Hospital course: 43 year old female evaluated today in the intensive care unit. Patient is currently sedated and remains on the mechanical ventilator. Presents from the shelter with shortness of breath and cough. Patient found to have bilateral pneumothorax and had right and left sided chest tubes (currently chest tubes have been. S/p PEG removed) Chest xray today reveals continued diffuse bilateral airspace disease with extensive pleural parenchymal opacity. Continues on IV vancomycin due to MRSA bacteremia. Patient has persistent fever 100.1 today. Also patient with leukocytosis 16.4. Hemoglobin 8.1. pH is normal at 7.4 and pO2 77. BMP is unremarkable. pro Calcitonin 0.14. Chest x-ray from today shows stable diffuse bilateral airspace disease with small left hydropneumothorax stable. CT of the chest showing continuing slight improvement in left-sided pneumothorax. Interval left right sided chest tube without pneumothorax seen currently. 2. Stable small bilateral pleural fluid collections improving diffuse subcutaneous edema is noted 3. Fairly similar bilateral multifocal consolidations with large central consolidation both lung identified Patient remains also with encephalopathy. Patient with multiple medical problems however she is clinically stable and guarded prognosis Because of the continued infections and other medical problems patient will require select facility for further care. Patient was discussed with pulmonary and infectious disease team and patient was cleared for discharge from both services on IV vancomycin x 2 weeks for now. Pulmonary team for management of the mechanical ventilation as well Patient was cleared for discharge by consultants Problems and management plan were discussed with the patient and he verbalized understanding and acceptance Patient was found stable and can be discharged to select facility in guarded prognosis however he needs follow-up as an outpatient. Patient was instructed to follow up with PCP within one week and patient agrees To follow-up with pulmonary and infectious disease in 1 week after discharge Physical exam -Gen: patient is a awake confused, but awake alert at times, mildly agitated CVS: S1-S2, RRR, no murmur Lungs: no wheezing. Creased breath sounds on both sides with crepitation. on mechanical ventilator support Abdomen: soft, no distention, no tenderness, positive bowel sounds Extremity: no leg edema or induration Time spent more than 35 minutes Patient Condition at Discharge: Serious Plan - Discharge Summary Discharge Rx Participant: No New Discharge Prescriptions: No Action lisinopriL [Zestril] 10 mg PO DAILY Loratadine [Claritin] 10 mg PO DAILY Baclofen [Lioresal] 10 mg PO BID PRN PRN Reason: Muscle Pain FLUoxetine HCL [PROzac] 20 mg PO DAILY Acetaminophen [Tylenol] 975 mg PO BID PRN PRN Reason: Pain Or Fever > 100.5 hydrOXYzine pamoate [Vistaril] 50 mg PO BID Discharge Medication List Acetaminophen [Tylenol] 975 mg PO BID PRN 11/23/23 [History] Baclofen [Lioresal] 10 mg PO BID PRN 11/23/23 [History] FLUoxetine HCL [PROzac] 20 mg PO DAILY 11/23/23 [History] Loratadine [Claritin] 10 mg PO DAILY 11/23/23 [History] hydrOXYzine pamoate [Vistaril] 50 mg PO BID 11/23/23 [History] lisinopriL [Zestril] 10 mg PO DAILY 11/23/23 [History] Follow up Appointment(s)/Referral(s): Soto Mukherjee MD [Primary Care Provider] - 1-2 days
--- NOTE | 2023-12-12 14:22 | P.PN ---
Subjective Progress Note Date: 12/12/23 CHIEF COMPLAINT: Respiratory failure HISTORY OF PRESENT ILLNESS: Patient remains in the ICU on mechanical ventilation. She is status post tracheostomy and PEG tube placement. Patient is tolerating tube feeds. PHYSICAL EXAM: VITAL SIGNS: Reviewed. GENERAL: no acute distress. HEENT: Tracheostomy site clean dry and intact ABDOMEN: Soft. Nondistended. Nontender. PEG tube site clean dry and intact ASSESSMENT: 1. Severe protein calorie malnutrition 2. Respiratory failure with MRSA pneumonia, empyema and hydropneumothorax status post chest tube placement bilaterally PLAN: -Continue tube feeds -Patient being transferred to select specialty Physician Integrated Log[employer] Operations Manager note has been reviewed by physician. Signing provider agrees with the documented findings, assessment, and plan of care. Objective - Vital Signs Vital signs: Vital Signs Temp 99 F 12/12/23 08:00 Pulse 130 H 12/12/23 11:00 Resp 40 H 12/12/23 11:00 BP 172/94 12/12/23 11:00 Pulse Ox 95 12/12/23 11:00 FiO2 40 12/12/23 11:55 Intake & Output 12/11/23 12/12/23 12/12/23 18:59 06:59 18:59 Intake Total 1878.653 0 782 Output Total 1925 3280 1090 Balance -46.347 -3280 -308 Weight 130.75 kg Intake: IV 1420 0 0 0.9 @ KVO 220 0 0 Magnesium Sulfate-D5w Pmx 100 1 gm In Dextrose/Water 1 100ml.bag @ 100 mls/hr IVPB ONCE ONE Rx#: [id number] Potassium Chloride 20 meq 100 In Water For Injection 1 100ml.bag @ 50 mls/hr IVPB ONCE ONE Rx#: [id number] Vancomycin 2,000 mg In 1000 Sodium Chloride 0.9% 500 ml 500 ml @ 167 mls/hr IVPB Q8H [facility] Rx#: [id number] Intake, IV Titration 94.653 500 Amount Vancomycin 2,000 mg In 500 Sodium Chloride 0.9% 500 ml 500 ml @ 167 mls/hr IVPB Q8H [facility] Rx#: [id number] propofoL 1,000 mg In 94.653 Empty Bag 1 bag @ 15 MCG/ KG/MIN 8.981 mls/hr IV . Q11H9M [facility] Rx#:[id number] Tube Feeding 304 152 Other 60 130 Output: Urine 1925 3280 1090 Other: Voiding Method Indwelling Catheter Indwelling Catheter Indwelling Catheter # Bowel Movements 300 ABP, PAP, CO, CI - Last Documented Arterial Blood Pressure 106/58 - Labs CBC & Chem 7: 12/12/23 05:59 12/12/23 05:59 Labs: Abnormal Lab Results - Last 24 Hours (Table) 12/11/23 12/12/23 12/12/23 Range/Units 19:00 05:50 05:59 WBC (3.8-10.6) k/uL RBC (3.80-5.40) m/uL Hgb (11.4-16.0) gm/dL Hct (34.0-46.0) % MCHC (31.0-37.0) g/dL Neutrophils # (1.3-7.7) k/uL ABG pO2 77 L (83-108) mmHg ABG HCO3 31 H (21-25) mmol/L ABG Total CO2 33 H (19-24) mmol/L BUN (7-17) mg/dL Creatinine (0.52-1.04) mg/dL Glucose (74-99) mg/dL Calcium (8.4-10.2) mg/dL C-Reactive Protein (<1.0) mg/dL Total Protein (6.3-8.2) g/dL Albumin (3.5-5.0) g/dL Procalcitonin 0.14 H (0.02-0.09) ng/mL Urine Appearance Turbid H (Clear) Urine Blood Small H (Negative) Ur Leukocyte Esterase Trace H (Negative) Urine RBC 8 H (0-5) /hpf Urine WBC 6 H (0-5) /hpf Urine WBC Clumps Few H (None) /hpf Ur Squamous Epith Cells 6 H (0-4) /hpf Urine Bacteria Rare H (None) /hpf Urine Mucus Moderate H (None) /hpf 12/12/23 12/12/23 Range/Units 05:59 05:59 WBC 16.4 H (3.8-10.6) k/uL RBC 2.83 L (3.80-5.40) m/uL Hgb 8.1 L (11.4-16.0) gm/dL Hct 26.7 L (34.0-46.0) % MCHC 30.4 L (31.0-37.0) g/dL Neutrophils # 13.8 H (1.3-7.7) k/uL ABG pO2 (83-108) mmHg ABG HCO3 (21-25) mmol/L ABG Total CO2 (19-24) mmol/L BUN 5 L (7-17) mg/dL Creatinine 0.31 L (0.52-1.04) mg/dL Glucose 101 H (74-99) mg/dL Calcium 8.0 L (8.4-10.2) mg/dL C-Reactive Protein 16.4 H (<1.0) mg/dL Total Protein 6.1 L (6.3-8.2) g/dL Albumin 2.5 L (3.5-5.0) g/dL Procalcitonin (0.02-0.09) ng/mL Urine Appearance (Clear) Urine Blood (Negative) Ur Leukocyte Esterase (Negative) Urine RBC (0-5) /hpf Urine WBC (0-5) /hpf Urine WBC Clumps (None) /hpf Ur Squamous Epith Cells (0-4) /hpf Urine Bacteria (None) /hpf Urine Mucus (None) /hpf
[2023-12-12 14:45] VITALS: BP 118/62; PULSE 118; RESP 35
--- NOTE | 2023-12-12 16:18 | P.PN ---
Subjective Progress Note Date: 12/12/23 Principal diagnosis: Reason for follow-up is sepsis MRSA pneumonia bacteremia and empyema Patient is a 43-year-old female past medical history significant for hypertension fibromyalgia asthma reflux seizure disorder currently incarcerated and presented from the local [place] [facility] for evaluation of increasing shortness of breath and chest pain, patient did have evidence of bilateral hydropneumothorax requiring bilateral chest tube placement and did have a positive blood culture with MRSA. Patient is status post tracheostomy completed on 12/03/2023. On today's evaluation that is 12/12/2023, patient did have overall improvement in her fever pattern with temperature of 99 F this morning the patient remains to be intubated on the vent through the trach FiO2 at 40% no significant purulent secretions through the ET and no worsening diarrhea reported by the nursing staff. Patient white count is 16.4, creatinine 0.31 blood culture repeat has been negative Objective - Vital Signs Vital signs: Vital Signs Temp 99 F 12/12/23 08:00 Pulse 133 H 12/12/23 09:00 Resp 34 H 12/12/23 09:00 BP 124/75 12/12/23 09:00 Pulse Ox 91 L 12/12/23 09:00 FiO2 40 12/12/23 08:00 Intake & Output 12/11/23 12/12/23 12/12/23 18:59 06:59 18:59 Intake Total 1878.653 0 206 Output Total 1925 3280 910 Balance -46.347 -3280 -704 Weight 130.75 kg Intake: IV 1420 0 0 0.9 @ KVO 220 0 0 Magnesium Sulfate-D5w Pmx 100 1 gm In Dextrose/Water 1 100ml.bag @ 100 mls/hr IVPB ONCE ONE Rx#: [id number] Potassium Chloride 20 meq 100 In Water For Injection 1 100ml.bag @ 50 mls/hr IVPB ONCE ONE Rx#: [id number] Vancomycin 2,000 mg In 1000 Sodium Chloride 0.9% 500 ml 500 ml @ 167 mls/hr IVPB Q8H [facility] Rx#: [id number] Intake, IV Titration 94.653 Amount propofoL 1,000 mg In 94.653 Empty Bag 1 bag @ 15 MCG/ KG/MIN 8.981 mls/hr IV . Q11H9M [facility] Rx#:[id number] Tube Feeding 304 76 Other 60 130 Output: Urine 9365 9050 910 Other: Voiding Method Indwelling Catheter Indwelling Catheter # Bowel Movements 300 ABP, PAP, CO, CI - Last Documented Arterial Blood Pressure 106/58 - Exam GENERAL DESCRIPTION: Middle-aged female intubated through the trach RESPIRATORY SYSTEM: Unlabored breathing , coarse breath sounds bilaterally HEART: S1 S2 regular rate and rhythm , ABDOMEN: Soft , no tenderness EXTREMITIES: No edema feet - Labs CBC & Chem 7: 12/12/23 05:59 12/12/23 05:59 Labs: Abnormal Lab Results - Last 24 Hours (Table) 12/11/23 12/12/23 12/12/23 Range/Units 19:00 05:50 05:59 WBC (3.8-10.6) k/uL RBC (3.80-5.40) m/uL Hgb (11.4-16.0) gm/dL Hct (34.0-46.0) % MCHC (31.0-37.0) g/dL Neutrophils # (1.3-7.7) k/uL ABG pO2 77 L (83-108) mmHg ABG HCO3 31 H (21-25) mmol/L ABG Total CO2 33 H (19-24) mmol/L BUN (7-17) mg/dL Creatinine (0.52-1.04) mg/dL Glucose (74-99) mg/dL Calcium (8.4-10.2) mg/dL C-Reactive Protein (<1.0) mg/dL Total Protein (6.3-8.2) g/dL Albumin (3.5-5.0) g/dL Procalcitonin 0.14 H (0.02-0.09) ng/mL Urine Appearance Turbid H (Clear) Urine Blood Small H (Negative) Ur Leukocyte Esterase Trace H (Negative) Urine RBC 8 H (0-5) /hpf Urine WBC 6 H (0-5) /hpf Urine WBC Clumps Few H (None) /hpf Ur Squamous Epith Cells 6 H (0-4) /hpf Urine Bacteria Rare H (None) /hpf Urine Mucus Moderate H (None) /hpf 12/12/23 12/12/23 Range/Units 05:59 05:59 WBC 16.4 H (3.8-10.6) k/uL RBC 2.83 L (3.80-5.40) m/uL Hgb 8.1 L (11.4-16.0) gm/dL Hct 26.7 L (34.0-46.0) % MCHC 30.4 L (31.0-37.0) g/dL Neutrophils # 13.8 H (1.3-7.7) k/uL ABG pO2 (83-108) mmHg ABG HCO3 (21-25) mmol/L ABG Total CO2 (19-24) mmol/L BUN 5 L (7-17) mg/dL Creatinine 0.31 L (0.52-1.04) mg/dL Glucose 101 H (74-99) mg/dL Calcium 8.0 L (8.4-10.2) mg/dL C-Reactive Protein 16.4 H (<1.0) mg/dL Total Protein 6.1 L (6.3-8.2) g/dL Albumin 2.5 L (3.5-5.0) g/dL Procalcitonin (0.02-0.09) ng/mL Urine Appearance (Clear) Urine Blood (Negative) Ur Leukocyte Esterase (Negative) Urine RBC (0-5) /hpf Urine WBC (0-5) /hpf Urine WBC Clumps (None) /hpf Ur Squamous Epith Cells (0-4) /hpf Urine Bacteria (None) /hpf Urine Mucus (None) /hpf Assessment and Plan (1) Empyema Status: Acute Code(s): J86.9 - PYOTHORAX WITHOUT FISTULA SNOMED Code(s): 603734400 (2) MRSA bacteremia Status: Acute Code(s): R78.81 - BACTEREMIA; B95.62 - METHICILLIN RESIS STAPH INFCT CAUSING DISEASES CLASSD ELSWHR SNOMED Code(s): 67995004875933958 (3) Pneumonia Status: Acute Code(s): J18.9 - PNEUMONIA, UNSPECIFIED ORGANISM SNOMED Code(s): 641482284 (4) Pneumothorax Status: Acute Code(s): J93.9 - PNEUMOTHORAX, UNSPECIFIED SNOMED Code(s): 13637413 Plan: 1patient presented to hospital with sepsis in this patient who did have a fever tachycardia elevated white count source is pulmonary in this patient noted evidence of bilateral pneumothorax and effusion with question of complicated pneumonia/empyema keeping in mind the patient is from local [facility]dc will need to cover for resistant gram-positive such as MRSA and gram-negative pathogen 2-patient blood sputum and pleural fluid culture with MRSA 3-Patient did clear her bacteremia as the blood culture from 11/26/2023 as well as 11/27/2023 has been negative patient did have a PICC line placement on 12/04/2023 4-patient did have a fever persistent which is slightly concerning white count, patient did have CT of the chest did not mention any empyema which was consolidation patient did have proving her fever pattern plan is for at least 2 weeks of IV vancomycin on discharge to the [facility] where the patient should be evaluated by ID physician and the patient has any new fever or persistent elevated white count Dictation was produced using [employer] dictation software. please excuse any grammatical, word or spelling errors. Time with Patient: Less than 30
[2023-12-13] MEDS ORDERED: VANCOMYCIN TROUGH DUE 1 EACH MISC MISCELLANE ONE (09:00)
== END 2023-12-12 16:12 | DRG 4 ==
LOC: EC 18:51 → 2SICU 20:40
PROVIDERS: ADMIT Internal Medicine; ATTEND Internal Medicine
PROC: 0W9B30Z Drainage of Left Pleural Cavity with Drainage Device, Percutaneous Approach (ICD-10-PCS; 2023-11-23)
PROC: 0BH17EZ Insertion of Endotracheal Airway into Trachea, Via Natural or Artificial Opening (ICD-10-PCS; 2023-11-24)
PROC: 3E033XZ Introduction of Vasopressor into Peripheral Vein, Percutaneous Approach (ICD-10-PCS; 2023-11-24)
PROC: 5A1955Z Respiratory Ventilation, Greater than 96 Consecutive Hours (ICD-10-PCS; 2023-11-24)
PROC: 0D9670Z Drainage of Stomach with Drainage Device, Via Natural or Artificial Opening (ICD-10-PCS; 2023-11-24)
PROC: 0W9930Z Drainage of Right Pleural Cavity with Drainage Device, Percutaneous Approach (ICD-10-PCS; 2023-11-24)
PROC: 05H633Z Insertion of Infusion Device into Left Subclavian Vein, Percutaneous Approach (ICD-10-PCS; 2023-11-24)
PROC: 3E0G76Z Introduction of Nutritional Substance into Upper GI, Via Natural or Artificial Opening (ICD-10-PCS; 2023-11-24)
PROC: 30233N1 Transfusion of Nonautologous Red Blood Cells into Peripheral Vein, Percutaneous Approach (ICD-10-PCS; 2023-11-29)
PROC: 04HY32Z Insertion of Monitoring Device into Lower Artery, Percutaneous Approach (ICD-10-PCS; 2023-12-01)
PROC: 4A133J1 Monitoring of Arterial Pulse, Peripheral, Percutaneous Approach (ICD-10-PCS; 2023-12-01)
PROC: 4A133B1 Monitoring of Arterial Pressure, Peripheral, Percutaneous Approach (ICD-10-PCS; 2023-12-01)
PROC: 0DH63UZ Insertion of Feeding Device into Stomach, Percutaneous Approach (ICD-10-PCS; 2023-12-03)
PROC: 0B110F4 Bypass Trachea to Cutaneous with Tracheostomy Device, Open Approach (ICD-10-PCS; principal; 2023-12-03 08:35)
PROC: 02HV33Z Insertion of Infusion Device into Superior Vena Cava, Percutaneous Approach (ICD-10-PCS; 2023-12-04)
DX: A41.02 Sepsis due to Methicillin resistant Staphylococcus aureus (principal); R65.21 Severe sepsis with septic shock; E43 Unspecified severe protein-calorie malnutrition; J86.9 Pyothorax without fistula; J15.212 Pneumonia due to Methicillin resistant Staphylococcus aureus; J96.01 Acute respiratory failure with hypoxia; G93.40 Encephalopathy, unspecified; J94.8 Other specified pleural conditions; E87.20 Acidosis, unspecified; J90 Pleural effusion, not elsewhere classified; J93.82 Other air leak; Z99.11 Dependence on respirator [ventilator] status; E87.1 Hypo-osmolality and hyponatremia; Z68.42 Body mass index [BMI] 45.0-49.9, adult; H46.9 Unspecified optic neuritis; G35 Multiple sclerosis; E66.01 Morbid (severe) obesity due to excess calories; G40.909 Epilepsy, unspecified, not intractable, without status epilepticus; J45.909 Unspecified asthma, uncomplicated; I10 Essential (primary) hypertension; D50.9 Iron deficiency anemia, unspecified; F12.10 Cannabis abuse, uncomplicated; F14.10 Cocaine abuse, uncomplicated; F31.9 Bipolar disorder, unspecified; R13.10 Dysphagia, unspecified; E87.6 Hypokalemia; F41.9 Anxiety disorder, unspecified; G43.909 Migraine, unspecified, not intractable, without status migrainosus; F90.9 Attention-deficit hyperactivity disorder, unspecified type; K21.9 Gastro-esophageal reflux disease without esophagitis; G89.4 Chronic pain syndrome; E55.9 Vitamin D deficiency, unspecified; Z87.440 Personal history of urinary (tract) infections; M79.7 Fibromyalgia; M19.90 Unspecified osteoarthritis, unspecified site; N30.10 Interstitial cystitis (chronic) without hematuria; R74.01 Elevation of levels of liver transaminase levels; Z79.899 Other long term (current) drug therapy; Z86.19 Personal history of other infectious and parasitic diseases; Z71.3 Dietary counseling and surveillance; Z88.0 Allergy status to penicillin; Z88.5 Allergy status to narcotic agent; Z88.2 Allergy status to sulfonamides; Z88.8 Allergy status to other drugs, medicaments and biological substances; Z88.6 Allergy status to analgesic agent; Z88.1 Allergy status to other antibiotic agents; Z91.040 Latex allergy status
CPT/HCPCS: 32551; 36415; 36573; 36600; 43246; 71045; 71250; 71275; 80048; 80053; 80202; 80306; 81001; 81025; 82533; 82728; 82805; 83036; 83540; 83550; 83605; 83735; 83880; 84132; 84145; 84484; 85025; 85027; 85379; 85610; 85730; 86140; 86850; 86900; 86901; 86920; 87040; 87070; 87077; 87186; 87205; 87324; 87390; 87636; 93005; 93306; 94002; 94003; 94640; 94660; 96365; 96375; 99291

== ENCOUNTER 2024-02-27 23:34 | Observation (INO) | payer MEDICARE, OTHER ==
--- NOTE | 2024-02-28 00:50 | ED ---
Chest Pain HPI - General Chief Complaint: Chest Pain Stated Complaint: PNEUMONIA Time Seen by Provider: 02/28/24 00:25 Source: EMS Mode of arrival: EMS - History of Present Illness Initial Comments: Patient is a 44-year-old woman who arrives here as a transfer from [facility]. The patient had gone there complaining of some intermittent bilateral chest and back pains. The patient had history earlier this year of having MRSA pneumonia in November, the patient had been intubated, and had prolonged course which included tracheostomy and previous bilateral chest tubes. The patient had prolonged course and had been at [facility] before being discharged about 2 months ago. The patient's workup at the other facility included CBC which showed a white blood cell count of 8.17 thousand, hemoglobin 14.1, platelets 359 thousand. Urinalysis was unremarkable chemistries all within normal limits. Magnesium 1.5. Troponin and BNP negative test negative. The patient had CT scan of the chest at the other facility which was interpreted there as showing small left pneumothorax, no focal consolidation. This pneumothorax was previously noted on CT from December 10 and they state that it has had small increase in size. MD Complaint: chest pain -: days(s) Onset: during rest - Related Data Home Medications Medication Instructions Recorded Confirmed FLUoxetine HCL [PROzac] 20 mg PO DAILY 11/23/23 11/23/23 hydrOXYzine pamoate [Vistaril] 50 mg PO BID 11/23/23 11/23/23 Previous Rx's Medication Instructions Recorded Acetaminophen Tab [Tylenol] 650 mg PO Q6HR PRN tab 12/12/23 Chlorhexidine Gluconate [Peridex] 15 ml MUCOUS MEM BID ml 12/12/23 Cholestyramine (with Sugar) 4 gm PO BID@1000,1800 packet 12/12/23 [Questran Packet] Enoxaparin [Lovenox] 40 mg SQ DAILY each 12/12/23 INSULIN ASPART (NovoLOG) [NovoLOG 0 unit SQ Q6H each 12/12/23 (formulary)] Ipratropium-Albuterol Nebulize 3 ml INHALATION RT-Q2H PRN each 12/12/23 [Duoneb 0.5 mg-3 mg/3 ml Soln] Ipratropium-Albuterol Nebulize 3 ml INHALATION RT-Q4H each 12/12/23 [Duoneb 0.5 mg-3 mg/3 ml Soln] Loperamide [Imodium] 2 mg PO QID cap 12/12/23 Magnesium Hydroxide [Milk of 2,400 mg PO BID PRN ml 12/12/23 Magnesia] Pantoprazole [Protonix] 40 mg PEG/G-TUBE DAILY #60 tab 12/12/23 Scopolamine 1 mg/72 Hr Patch 1 patch TRANSDERM Q72H patch 12/12/23 [TransDerm Scop] Vancomycin 1,750 mg IVPB Q8H 14 Days each 12/12/23 Allergies Allergy/AdvReac Type Severity Reaction Status Date / Time amoxicillin [Amoxicillin] Allergy Severe Anaphylaxis, Verified 02/28/24 00:21 seizures ciprofloxacin [From Cipro] Allergy Severe Rash/Hives, Verified 02/28/24 00:21 seizures codeine phosphate Allergy Unknown Rash/Hives Verified 02/28/24 00:21 [From Tylenol-Codeine #3] bee venom protein (honey bee) Allergy Anaphylaxis Verified 02/28/24 00:21 cefuroxime axetil Allergy Rash/Hives Verified 02/28/24 00:21 [From Ceftin] gabapentin [From Neurontin] Allergy Swelling Verified 02/28/24 00:21 ketorolac [From Toradol] Allergy Rash/Hives Verified 02/28/24 00:21 latex Allergy Rash/Hives Verified 02/28/24 00:21 NSAIDS (Non-Steroidal Allergy Rash/Hives/Lip Verified 02/28/24 00:21 Anti-Inflamma Swelling sulfamethoxazole Allergy Itching Verified 02/28/24 00:21 [From Bactrim] trimethoprim [From Bactrim] Allergy Itching Verified 02/28/24 00:21 Review of Systems ROS Statement: Those systems with pertinent positive or pertinent negative responses have been documented in the HPI. ROS Other: All systems not noted in ROS Statement are negative. Constitutional: Denies: fever, chills ENT: Denies: congestion Respiratory: Reports: cough, dyspnea. Denies: hemoptysis Cardiovascular: Reports: chest pain. Denies: palpitations, orthopnea, edema, syncope Gastrointestinal: Denies: abdominal pain, nausea, vomiting, diarrhea Genitourinary: Denies: dysuria, hematuria Musculoskeletal: Reports: back pain Skin: Denies: rash Neurological: Denies: headache, weakness, numbness Past Medical History Past Medical History: No Reported History, Asthma, Fibromyalgia, GERD/Reflux, Hypertension, Musculoskeletal Disorder, Neurologic Disorder, Pneumonia, Seizure Disorder Additional Past Medical History / Comment(s): Multiple Sclerosis, angina, migraines, DJD, interstitial cystitis, UTI, PCOS, vit D deficiency, bilateral optic neuritis with visual problems, generalized chronic pain, numbness/tingling bilateral lower legs, tachycardia, c-diff 5-9-16, seizures from MS last one around 2016. ADHD. 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 PCOS. MS History of Any Multi-Drug Resistant Organisms: C-DIFF Date of last positivie culture/infection: 2017 MDRO Source:: stool Past Surgical History: Cholecystectomy, Orthopedic Surgery Additional Past Surgical History / Comment(s): Lt shoulder rotator cuff repair 06/06/14, arthroscopic left knee 2000 & 2002, left shoulder reconstruction Past Anesthesia/Blood Transfusion Reactions: No Reported Reaction Additional Past Anesthesia/Blood Transfusion Reaction / Comment(s): Pt has never recieved blood. Past Psychological History: Anxiety, Bipolar, Depression Smoking Status: Never smoker Past Alcohol Use History: Rare Past Drug Use History: Cocaine, Heroin, Marijuana - Past Family History Mother Family Medical History: No Reported History Additional Family Medical History / Comment(s): mother is healthy. Maternal grandmother had uterine cancer. Maternal grandfather had bladder cancer. Father Family Medical History: Hypertension Additional Family Medical History / Comment(s): Paternal grandfather had an [place]. General Exam General appearance: alert, in no apparent distress Head exam: Present: atraumatic, normocephalic Eye exam: Present: normal appearance. Absent: scleral icterus, conjunctival injection ENT exam: Present: normal oropharynx Neck exam: Present: normal inspection, full ROM. Absent: tenderness, meningismus Respiratory exam: Present: normal lung sounds bilaterally. Absent: respiratory distress, wheezes, rales, rhonchi, stridor, accessory muscle use Cardiovascular Exam: Present: regular rate, normal rhythm, normal heart sounds. Absent: systolic murmur, diastolic murmur, rubs, gallop GI/Abdominal exam: Present: soft. Absent: distended, tenderness, guarding, rebound, rigid, mass Extremities exam: Present: normal inspection, normal capillary refill. Absent: pedal edema, calf tenderness Back exam: Present: normal inspection. Absent: CVA tenderness (R), CVA tenderness (L) Neurological exam: Present: alert Skin exam: Present: warm, dry, intact, normal color. Absent: rash Course Vital Signs 02/28/24 02/28/24 02/28/24 00:09 00:42 02:20 Temperature 97 F L Pulse Rate 60 61 Respiratory 18 20 18 Rate Blood Pressure 118/85 118/85 O2 Sat by Pulse 97 100 Oximetry Disposition
[2024-02-28] MEDS ORDERED: ACETAMINOPHEN TAB 325 MG TAB PO PRN (02:25)
[2024-02-28] MEDS ORDERED: ONDANSETRON 4 MG/2 ML VIAL IVP PRN (02:25)
[2024-02-28] MEDS ORDERED: NALOXONE 0.4 MG/ML 1 ML VIAL IV PRN (02:25)
[2024-02-28] MEDS: MORPHINE SULFATE 4 MG/ML SYRINGE IV STA (02:36)
[2024-02-28] MEDS: ONDANSETRON 4 MG/2 ML VIAL IVP STA (02:36)
[2024-02-28] MEDS: SODIUM CHLORIDE 0.9% 1,000 ML IV SCH (03:38)
[2024-02-28] MEDS: MORPHINE SULFATE 4 MG/ML SYRINGE IV PRN (06:52)
--- NOTE | 2024-02-28 07:32 | P.CNPUL ---
History of Present Illness Consult date: 02/28/24 Requesting physician: Arleth Perez Reason for consult: dyspnea, chest pain, pneumothorax, abnormal CXR/CT Chief complaint: Shortness of breath and chest pain. History of present illness: Pulmonary consult dated February 28, 2024. 44-year-old female who presented to [facility], with shortness of breath, and chest pain. The patient was evaluated there, had x-rays and CT scans, and was transferred here, for further management. The patient CT scan apparently showed a left-sided pneumothorax, which apparently was a bit larger than the prior scan, which was done back in December. The patient was recently here between November 22 and December 11. On that admission, she came in with bilateral pneumonia, secondary to methicillin-resistant Staph aureus, developed acute respiratory failure requiring intubation and mechanical ventilation, had bilateral pneumothoraces, and ended up requiring a tracheostomy tube and a PEG tube. She was finally discharged on December 11 from the hospital, and [facility], so that she could be weaned further. She eventually was weaned from mechanical ventilation, decannulated, and was discharged from [facility] on January 16. After that, she went home. She has been doing reasonably well until she presented to the emergency department at [facility], yesterday. I was consulted, as well as cardiothoracic surgery for the pneumothorax. Apparently, we do not have any of the x-rays or scans from the outside hospital. The workup at the other hospital showed a CBC that was essentially normal. Urinalysis and chemistries were all within normal range. She tested negative on her test, and troponins and N-terminal proBNP were also negative. The CT scan done at the outside hospital apparently showed a 6 small left pneumothorax, which was a bit larger in size from a previous CT scan done in December. The patient states that she does not smoke. She sees Latha Abdi as her primary caregiver. 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 Home medications include Vistaril, vancomycin, scopolamine, Protonix, Milk of Magnesia, Imodium, DuoNeb updrafts, insulin, Prozac, Lovenox, Questran, Peridex, and Tylenol. Review of Systems REVIEW OF SYSTEMS: CONSTITUTIONAL: [Negative.] NEUROLOGIC: [ Negative.] HEENT: [ Negative.] CARDIAC: Chest pain. PULMONARY: Shortness of breath. GI: [Negative.] : [Negative.] RHEUMATOLOGIC: [ Negative.] IMMUNOLOGIC: [ Negative.] ENDOCRINE: [Negative. ] DERMATOLOGIC: [Negative.] Past Medical History Past Medical History: Asthma, Fibromyalgia, GERD/Reflux, Hypertension, Musculoskeletal Disorder, Neurologic Disorder, Pneumonia, Seizure Disorder Additional Past Medical History / Comment(s): Multiple Sclerosis, angina, migraines, DJD, interstitial cystitis, UTI, PCOS, vit D deficiency, bilateral optic neuritis with visual problems, generalized chronic pain, numbness/tingling bilateral lower legs, tachycardia, c-diff 5-9-16, seizures from MS last one around 2016. ADHD. 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 PCOS. MS History of Any Multi-Drug Resistant Organisms: C-DIFF, MRSA Date of last positivie culture/infection: 2023 MDRO Source:: stool and lung Past Surgical History: Cholecystectomy, Orthopedic Surgery Additional Past Surgical History / Comment(s): Lt shoulder rotator cuff repair 06/06/14, arthroscopic left knee 2000 & 2002, left shoulder reconstruction Past Anesthesia/Blood Transfusion Reactions: No Reported Reaction Additional Past Anesthesia/Blood Transfusion Reaction / Comment(s): Pt has never recieved blood. Past Psychological History: Anxiety, Bipolar, Depression Additional Psychological History / Comment(s): OCD Smoking Status: Former smoker Past Alcohol Use History: Rare Past Drug Use History: Cocaine, Heroin, Marijuana Additional Drug Use History / Comment(s): Patient reports past history of cocaine, inhaling heroin (no IV use of heroin per patient), marijuana and pain pills not prescribed to patient. - Past Family History Mother Family Medical History: No Reported History Additional Family Medical History / Comment(s): mother is healthy. Maternal grandmother had uterine cancer. Maternal grandfather had bladder cancer. Father Family Medical History: Hypertension Additional Family Medical History / Comment(s): Paternal grandfather had an AK. Medications and Allergies Home Medications Medication Instructions Recorded Confirmed Type FLUoxetine HCL [PROzac] 20 mg PO DAILY 11/23/23 11/23/23 History hydrOXYzine pamoate [Vistaril] 50 mg PO BID 11/23/23 11/23/23 History Acetaminophen Tab [Tylenol] 650 mg PO Q6HR PRN tab 12/12/23 Rx Chlorhexidine Gluconate [Peridex] 15 ml MUCOUS MEM BID ml 12/12/23 Rx Cholestyramine (with Sugar) 4 gm PO BID@1000,1800 packet 12/12/23 Rx [Questran Packet] Enoxaparin [Lovenox] 40 mg SQ DAILY each 12/12/23 Rx INSULIN ASPART (NovoLOG) [NovoLOG 0 unit SQ Q6H each 12/12/23 Rx (formulary)] Ipratropium-Albuterol Nebulize 3 ml INHALATION RT-Q2H PRN each 12/12/23 Rx [Duoneb 0.5 mg-3 mg/3 ml Soln] Ipratropium-Albuterol Nebulize 3 ml INHALATION RT-Q4H each 12/12/23 Rx [Duoneb 0.5 mg-3 mg/3 ml Soln] Loperamide [Imodium] 2 mg PO QID cap 12/12/23 Rx Magnesium Hydroxide [Milk of 2,400 mg PO BID PRN ml 12/12/23 Rx Magnesia] Pantoprazole [Protonix] 40 mg PEG/G-TUBE DAILY #60 tab 12/12/23 Rx Scopolamine 1 mg/72 Hr Patch 1 patch TRANSDERM Q72H patch 12/12/23 Rx [TransDerm Scop] Vancomycin 1,750 mg IVPB Q8H 14 Days each 12/12/23 Rx Allergies Allergy/AdvReac Type Severity Reaction Status Date / Time amoxicillin [Amoxicillin] Allergy Severe Anaphylaxis, Verified 02/28/24 00:21 seizures ciprofloxacin [From Cipro] Allergy Severe Rash/Hives, Verified 02/28/24 00:21 seizures codeine phosphate Allergy Unknown Rash/Hives Verified 02/28/24 00:21 [From Tylenol-Codeine #3] bee venom protein (honey bee) Allergy Anaphylaxis Verified 02/28/24 00:21 cefuroxime axetil Allergy Rash/Hives Verified 02/28/24 00:21 [From Ceftin] gabapentin [From Neurontin] Allergy Swelling Verified 02/28/24 00:21 ketorolac [From Toradol] Allergy Rash/Hives Verified 02/28/24 00:21 latex Allergy Rash/Hives Verified 02/28/24 00:21 NSAIDS (Non-Steroidal Allergy Rash/Hives/Lip Verified 02/28/24 00:21 Anti-Inflamma Swelling sulfamethoxazole Allergy Itching Verified 02/28/24 00:21 [From Bactrim] trimethoprim [From Bactrim] Allergy Itching Verified 02/28/24 00:21 Physical Exam Osteopathic Statement: *. No significant issues noted on an osteopathic structural exam other than those noted in the History and Physical/Consult. Vitals: Vital Signs Temp Pulse Pulse Resp BP BP Pulse Ox 02/28/24 04:40 98.1 F 65 18 133/85 98 02/28/24 04:00 61 20 124/74 94 L 02/28/24 02:20 61 18 118/85 100 02/28/24 00:42 20 02/28/24 00:09 97 F L 60 18 118/85 97 Intake and Output 02/27/24 02/28/24 02/28/24 22:59 06:59 14:59 Other: # Voids 1 Weight 81.647 kg No acute distress, oriented 3. No acute distress. No respiratory distress. Currently on 2 L of oxygen. HEENT examination is grossly unremarkable. Mucous membranes are moist. No oral lesions. Neck supple. Full range of motion. No adenopathy thyromegaly or neck vein distention. Cardiovascular examination reveals regular rhythm rate. S1-S2 normal. No S3 or S4. No discernible murmur noted. Heart rate 65 bpm. Lungs reveal clear breath sounds. Breath sounds are equal bilaterally. No adventitious lung sounds including wheezes rhonchi or crackles. Saturations are documented at 100%. Abdomen soft bowel sounds are heard. No masses or tenderness. Extremities are intact. No cyanosis clubbing or edema. Skin is without rash or lesion. Neurologic examination is brief but nonfocal. Assessment and Plan Assessment: Shortness of breath, and chest pain, in a patient with an apparent left-sided pneumothorax, slightly larger in size from a previous scan. History of acute hypoxemic respiratory failure, requiring intubation, mechanical ventilation, tracheostomy tube, PEG tube, bilateral chest tubes, and methicillin-resistant Staph aureus pneumonia. Patient hospitalized between November 22 and December 11. History of bilateral empyema, with chest tube placement. Recent prior history of tracheostomy and PEG tube placement. MRSA empyema and pneumonia. History of acute septic shock. Morbid obesity. Polysubstance abuse. History of multiple sclerosis. Anxiety/depression. History of interstitial cystitis. History of chronic pain syndrome. History of migraine cephalgia. History of seizure disorder. History of hypertension. Plan: Plan dated February 28, 2024. The patient presented to [facility] on February 26, with chest pain and shortness of breath. She apparently had x-rays lab work and CT scan there. None of those data are available to me. I have asked the nurses to try to retrieve the scans especially. The patient apparently came in complaining of shortness of breath and chest pain. Currently she is on a couple liters of oxygen. Does not appear to have any distress. Saturations are excellent. Lab work from the outside hospital apparently was all normal. Not sure that there is anything for me to do at this point. Time with Patient: Greater than 30
--- NOTE | 2024-02-28 07:51 | XR ---
EXAMINATION TYPE: XR chest 1V portable DATE OF EXAM: 02/28/2024 7:42 AM CLINICAL INDICATION:Female, 44 years old with history of pneumothorax; [facility] COMPARISON: CT one day prior radiograph 12/12/2023 TECHNIQUE: XR chest 1V portable Frontal view of the chest. FINDINGS: Lungs/Pleura: Left pneumothorax is unchanged. There is no evidence of pleural effusion, focal consoli dation, or right pneumothorax. Pulmonary vascularity: Unremarkable. Heart/mediastinum: Cardiomediastinal silhouette is unremarkable. Musculoskeletal: No acute osseous pathology. Other findings: None IMPRESSION: Pneumothorax seen on prior CT at an outside institution is less well appreciated on radiography but r emains present.
[2024-02-28] MEDS: FAMOTIDINE 20 MG TAB PO SCH (10:02)
--- NOTE | 2024-02-28 12:07 | P.GSCN ---
History of Present Illness Consult date: 02/28/24 Reason for Consult: Pneumothorax Requesting physician: Brian Kauffman History of present illness: This is a 44-year-old female who follows outpatient with nurse practitioner Latha Abdi for internal medicine. She has a previous medical history of hospitalization in November 2023 for acute hypoxic respiratory failure/bilateral hydropneumothoraces with empyema, and septic shock, MS, obesity, migraines, seizures, fibromyalgia, hypertension, asthma, anxiety/depression/bipolar disorder, and polysubstance abuse. She did have chest tubes placed, and required tracheostomy and PEG tube placement during the admission in November and [facility]. She did eventually get extubated, tracheostomy was removed, and she was discharged to home approximately 1 month ago. She presented to [facility] yesterday with shortness of breath and chest pain. There she had chest x-rays and CT scan which apparently showed a left-sided pneumothorax which was slightly larger than the last CT scan done here in December. She was transferred to [facility] for cardiothoracic surgery evaluation. There is no report in her chart or films sent over from [facility] at this time. Chest x-ray was ordered, per radiologist read small left-sided pneumothorax still present. Consultation placed to cardiothoracic surgery for treatment recommendations. Review of Systems Review of systems was completed and was negative except as noted - Cardiovascular Reports as per HPI, Reports chest pain, Reports dyspnea on exertion Past Medical History Past Medical History: Asthma, Fibromyalgia, GERD/Reflux, Hypertension, Musculoskeletal Disorder, Neurologic Disorder, Pneumonia, Seizure Disorder Additional Past Medical History / Comment(s): Multiple Sclerosis, angina, migraines, DJD, interstitial cystitis, UTI, PCOS, vit D deficiency, bilateral optic neuritis with visual problems, generalized chronic pain, numbness/tingling bilateral lower legs, tachycardia, c-diff 5-9-16, seizures from MS last one around 2017. ADHD. 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 PCOS. MS History of Any Multi-Drug Resistant Organisms: C-DIFF, MRSA Year Discovered:: 2023 MDRO Source:: stool and lung Past Surgical History: Cholecystectomy, Orthopedic Surgery Additional Past Surgical History / Comment(s): Lt shoulder rotator cuff repair 06/06/14, arthroscopic left knee 2000 & 2002, left shoulder reconstruction Past Anesthesia/Blood Transfusion Reactions: No Reported Reaction Additional Past Anesthesia/Blood Transfusion Reaction / Comm: Pt has never recieved blood. Past Psychological History: Anxiety, Bipolar, Depression Additional Psychological History / Comment(s): OCD Smoking Status: Former smoker Past Alcohol Use History: Rare Past Drug Use History: Cocaine, Heroin, Marijuana Additional Drug Use History / Comment(s): Patient reports past history of cocaine, inhaling heroin (no IV use of heroin per patient), marijuana and pain pills not prescribed to patient. - Past Family History Mother Family Medical History: No Reported History Additional Family Medical History / Comment(s): mother is healthy. Maternal grandmother had uterine cancer. Maternal grandfather had bladder cancer. Father Family Medical History: Hypertension Additional Family Medical History / Comment(s): Paternal grandfather had an AK. Medications and Allergies Home Medications Medication Instructions Recorded Confirmed Type FLUoxetine HCL [PROzac] 20 mg PO DAILY 11/23/23 02/28/24 History Albuterol Inhaler [Ventolin Hfa 1 puff INHALATION RT-Q4H PRN 02/28/24 02/28/24 H istory Inhaler] Baclofen [Lioresal] 10 mg PO BID 02/28/24 02/28/24 History Dextroamphetamine/Amphetamine 30 mg PO DAILY PRN 02/28/24 02/28/24 History [Adderall] Dicyclomine [Bentyl] 20 mg PO TID PRN 02/28/24 02/28/24 History Ipratropium/Albuter 20-100Mcg 1 puff INHALATION RT-DAILY PRN 02/28/24 02/28/24 History [Combivent Respimat 20-100Mcg Inhaler] Loperamide [Imodium] 2 mg PO QID PRN 02/28/24 02/28/24 History Loratadine [Claritin] 10 mg PO DAILY 02/28/24 02/28/24 History Metoprolol Tartrate [Lopressor] 50 mg PO BID-W/MEALS 02/28/24 02/28/24 History Ondansetron Odt [Zofran ODT] 4 mg PO BID PRN 02/28/24 02/28/24 History Pantoprazole [Protonix] 40 mg PO BID 02/28/24 02/28/24 History QUEtiapine [SEROquel] 50 mg PO HS 02/28/24 02/28/24 History diazePAM 10 mg PO DAILY 02/28/24 02/28/24 History oxyCODONE-APAP 10-325MG [Percocet 1 tab PO BID PRN 02/28/24 02/28/24 History 10-325 mg] Allergies Allergy/AdvReac Type Severity Reaction Status Date / Time amoxicillin [Amoxicillin] Allergy Severe Anaphylaxis, Verified 02/28/24 12:30 seizures ciprofloxacin [From Cipro] Allergy Severe Rash/Hives, Verified 02/28/24 12:30 seizures codeine phosphate Allergy Unknown Rash/Hives Verified 02/28/24 12:30 [From Tylenol-Codeine #3] bee venom protein (honey bee) Allergy Anaphylaxis Verified 02/28/24 12:30 cefuroxime axetil Allergy Rash/Hives Verified 02/28/24 12:30 [From Ceftin] gabapentin [From Neurontin] Allergy Swelling Verified 02/28/24 12:30 ketorolac [From Toradol] Allergy Rash/Hives Verified 02/28/24 12:30 latex Allergy Rash/Hives Verified 02/28/24 12:30 NSAIDS (Non-Steroidal Allergy Rash/Hives/Lip Verified 02/28/24 12:30 Anti-Inflamma Swelling sulfamethoxazole Allergy Itching Verified 02/28/24 12:30 [From Bactrim] trimethoprim [From Bactrim] Allergy Itching Verified 02/28/24 12:30 Surgical - Exam Vital Signs Temp Pulse Resp BP Pulse Ox 97 F L 60 18 118/85 97 02/28/24 00:09 02/28/24 00:09 02/28/24 00:09 02/28/24 00:09 02/28/24 00:09 CONSTITUTIONAL: Awake and alert, appears comfortable, cooperative, well- developed, well-nourished, no pain, no acute distress EYES: Pupils equal, round, reactive to light, normal ocular movement ENT: Moist mucous membranes without oral lesions present NECK: No masses, no bruits, trachea midline RESPIRATORY: Lungs sounds clear to auscultation bilaterally. Respirations even, nonlabored. Currently on 1 L nasal cannula with oxygen saturation 99%, has been on room air since her admission here at midnight with oxygen saturation 94 to 100%. CARDIOVASCULAR: S1, S2 present. Regular rate and rhythm. Palpable peripheral pulses bilaterally. No edema present. No calf pain or tenderness noted. GASTROINTESTINAL: Abdomen soft, nontender, nondistended, obese without masses or organomegaly noted. There is no rebound or guarding present. Active bowel sounds present 4 quadrants. GENITOURINARY: Deferred INTEGUMENTARY: Skin is warm and dry with evidence of good perfusion. NEUROLOGIC: Cranial nerves II through XII intact, normal coordination, no obvious motor or sensory deficits, speech is normal MUSKULOSKELETAL: Able to move all extremities, strength equal bilaterally, normal posture PSYCHIATRIC: Alert and oriented to person place and time, appropriate affect, intact judgment and insight Results - Imaging Chest x-ray: report reviewed, image reviewed Assessment and Plan Assessment: Left-sided small pneumothorax per radiologist read, per documentation apparently slightly larger from previous CAT scan Chest pain, shortness of breath History of hospitalization in November 2023 for acute hypoxic respiratory failure/bilateral hydropneumothoraces with empyema, and septic shock MS Obesity Migraines Seizures Fibromyalgia Hypertension Asthma Anxiety/depression/bipolar disorder Polysubstance abuse Current vape usage Plan: The patient was seen and examined with father present at the bedside. Chart/diagnostics reviewed. Chest x-ray was reviewed with Dr. Royal and Dr. Drake. At this time there is no indication for chest tube placement. Patient's shortness of breath is likely multifactorial given small pneumothorax, obesity, current vape usage. While patient does appear significantly better than when we last saw her in December she is still recovering from a very isaac experience. Her oxygen saturation has been maintained in the high 90s. Vital signs are stable. No surgical intervention warranted. Incentive spirometry ordered and should be encouraged. Complete smoking/vaping cessation strongly encouraged. From our standpoint patient can be discharged to home when okay with internal medicine and pulmonology. Please call us with any further questions. Thank you for this consult. I have personally seen and examined the patient, performed the documentation and the assessment and plan as written. Number of minutes spent on the visit: 30. LAURA Tse Attending Addendum: Pt seen and evaluated with SCHEDULING AGENT above. Agree with her assessment and plan. I spent 40 minutes reviewing the data and discussing the plan of care with the team. Time with Patient: Greater than 30
[2024-02-28 13:04] VITALS: BMI 29.0
--- NOTE | 2024-02-28 14:21 | P.HPIM ---
History of Present Illness H&P Date: 02/28/24 History of present illness; 44-year-old female who presented to [facility] initially with shortness of breath and chest pain. Patient was evaluated there, had x-rays and CT scan done and patient was transferred here for further management. Apparently patient CT scan showed a left-sided pneumothorax which apparently was a bit larger than previous scans which was done back in December.The patient was recently here between November 22 and December 11. On that admission, she came in with bilateral pneumonia, secondary to methicillin-resistant Staph aureus, developed acute respiratory failure requiring intubation and mechanical ventilation, had bilateral pneumothoraces, and ended up requiring a tracheostomy tube and a PEG tube. She was finally discharged on December 11 from the hospital, and [facility], so that she could be weaned further. She eventually was weaned from mechanical ventilation, decannulated, and was [facility] on January 16. After that, she went home. She has been doing reasonably well until she presented to the emergency department at [facility], yesterday. I was consulted, as well as cardiothoracic surgery for the pneumothorax. Apparently, we do not have any of the x-rays or scans from the outside hospital. The workup at the other hospital showed a CBC that was essentially normal. Urinalysis and chemistries were all within normal range. She tested negative on her test, and troponins and N-terminal proBNP were also negative. The CT scan done at the outside hospital apparently showed a 6 small left pneumothorax, which was a bit larger in size from a previous CT scan done in December. The patient states that she does not smoke. She sees Latha Abdi as her primary caregiver. Presented to the hospital from home patient stated that she has finished her rehab and also has finished vancomycin few weeks previously. Vitals currently stable, afebrile, heart rate 65, respiratory rate 18, saturating 98% on room air. Chest x-ray showed pneumothorax seen on the prior CT at an outside institution is less well-appreciated on radiograph but remains present. Patient admitted to internal medicine service REVIEW OF SYSTEMS: CONSTITUTIONAL: No fever, no malaise, no fatigue. HEENT: No recent visual problems or hearing problems. Denied any sore throat. CARDIOVASCULAR: No chest pain, orthopnea, PND, no palpitations, no syncope. PULMONARY: No shortness of breath, no cough, no hemoptysis. GASTROINTESTINAL: No diarrhea, no nausea, no vomiting, no abdominal pain. NEUROLOGICAL: No headaches, no weakness, no numbness. HEMATOLOGICAL: Denies any bleeding or petechiae. GENITOURINARY: Denies any burning micturition, frequency, or urgency. MUSCULOSKELETAL/RHEUMATOLOGICAL: Denies any joint pain, swelling, or any muscle pain. ENDOCRINE: Denies any polyuria or polydipsia. The rest of the 14-point review of systems is negative. PHYSICAL EXAMINATION: GENERAL: The patient is alert and oriented x3, not in any acute distress. Well developed, well nourished. HEENT: Pupils are round and equally reacting to light. EOMI. No scleral icterus. No conjunctival pallor. Normocephalic, atraumatic. No pharyngeal erythema. No thyromegaly. CARDIOVASCULAR: S1 and S2 present. No murmurs, rubs, or gallops. PULMONARY: Chest is clear to auscultation, no wheezing or crackles. ABDOMEN: Soft, nontender, nondistended, normoactive bowel sounds. No palpable organomegaly. MUSCULOSKELETAL: No joint swelling or deformity. EXTREMITIES: No cyanosis, clubbing, or pedal edema. NEUROLOGICAL: Gross neurological examination did not reveal any focal deficits. SKIN: No rashes. Assessment and plan Left-sided small pneumothorax per radiology read, per documentation apparently slightly larger than from previous CAT scan Chest pain, shortness of breath: Improved History of hospitalization in November 2023 for respiratory failure, bilateral hydropneumothoraces with empyema and septic shock History of MRSA bacteremiafinished vancomycin History of multiple sclerosis Migraine Seizure Fibromyalgia Hypertension Asthma Depression/bipolar//anxiety Polysubstance use Current vape use Monitor vital signs Monitor CBC Monitor CMP Continue telemetry monitoring Labs and medication were reviewed.. Continue same treatment. Continue with symptomatic treatment. Resume home medication. Monitor labs and vitals. Further recommendations as per clinical course of the patient Pulmonary and thoracic surgery consulted Dictation was produced using [employer] dictation software. please excuse any grammatical, word or spelling errors. Past Medical History Past Medical History: Asthma, Fibromyalgia, GERD/Reflux, Hypertension, Musculoskeletal Disorder, Neurologic Disorder, Pneumonia, Seizure Disorder Additional Past Medical History / Comment(s): Multiple Sclerosis, angina, migraines, DJD, interstitial cystitis, UTI, PCOS, vit D deficiency, bilateral optic neuritis with visual problems, generalized chronic pain, numbness/tingling bilateral lower legs, tachycardia, c-diff 5-9-16, seizures from MS last one around 2016. ADHD. 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 PCOS. MS History of Any Multi-Drug Resistant Organisms: C-DIFF, MRSA Date of last positivie culture/infection: 2023 MDRO Source:: stool and lung Past Surgical History: Cholecystectomy, Orthopedic Surgery Additional Past Surgical History / Comment(s): Lt shoulder rotator cuff repair 06/06/14, arthroscopic left knee 2000 & 2002, left shoulder reconstruction Past Anesthesia/Blood Transfusion Reactions: No Reported Reaction Additional Past Anesthesia/Blood Transfusion Reaction / Comment(s): Pt has never recieved blood. Past Psychological History: Anxiety, Bipolar, Depression Additional Psychological History / Comment(s): OCD Smoking Status: Former smoker Past Alcohol Use History: Rare Past Drug Use History: Cocaine, Heroin, Marijuana Additional Drug Use History / Comment(s): Patient reports past history of cocaine, inhaling heroin (no IV use of heroin per patient), marijuana and pain pills not prescribed to patient. - Past Family History Mother Family Medical History: No Reported History Additional Family Medical History / Comment(s): mother is healthy. Maternal grandmother had uterine cancer. Maternal grandfather had bladder cancer. Father Family Medical History: Hypertension Additional Family Medical History / Comment(s): Paternal grandfather had an [place]. Medications and Allergies Home Medications Medication Instructions Recorded Confirmed Type FLUoxetine HCL [PROzac] 20 mg PO DAILY 11/23/23 02/28/24 History Albuterol Inhaler [Ventolin Hfa 1 puff INHALATION RT-Q4H PRN 02/28/24 02/28/24 History Inhaler] Baclofen [Lioresal] 10 mg PO BID 02/28/24 02/28/24 History Dextroamphetamine/Amphetamine 30 mg PO DAILY PRN 02/28/24 02/28/24 History [Adderall] Dicyclomine [Bentyl] 20 mg PO TID PRN 02/28/24 02/28/24 History Ipratropium/Albuter 20-100Mcg 1 puff INHALATION RT-DAILY PRN 02/28/24 02/28/24 History [Combivent Respimat 20-100Mcg Inhaler] Loperamide [Imodium] 2 mg PO QID PRN 02/28/24 02/28/24 History Loratadine [Claritin] 10 mg PO DAILY 02/28/24 02/28/24 History Metoprolol Tartrate [Lopressor] 50 mg PO BID-W/MEALS 02/28/24 02/28/24 History Ondansetron Odt [Zofran ODT] 4 mg PO BID PRN 02/28/24 02/28/24 History Pantoprazole [Protonix] 40 mg PO BID 02/28/24 02/28/24 History QUEtiapine [SEROquel] 50 mg PO HS 02/28/24 02/28/24 History diazePAM 10 mg PO DAILY 02/28/24 02/28/24 History oxyCODONE-APAP 10-325MG [Percocet 1 tab PO BID PRN 02/28/24 02/28/24 History 10-325 mg] Allergies Allergy/AdvReac Type Severity Reaction Status Date / Time amoxicillin [Amoxicillin] Allergy Severe Anaphylaxis, Verified 02/28/24 12:30 seizures ciprofloxacin [From Cipro] Allergy Severe Rash/Hives, Verified 02/28/24 12:30 seizures codeine phosphate Allergy Unknown Rash/Hives Verified 02/28/24 12:30 [From Tylenol-Codeine #3] bee venom protein (honey bee) Allergy Anaphylaxis Verified 02/28/24 12:30 cefuroxime axetil Allergy Rash/Hives Verified 02/28/24 12:30 [From Ceftin] gabapentin [From Neurontin] Allergy Swelling Verified 02/28/24 12:30 ketorolac [From Toradol] Allergy Rash/Hives Verified 02/28/24 12:30 latex Allergy Rash/Hives Verified 02/28/24 12:30 NSAIDS (Non-Steroidal Allergy Rash/Hives/Lip Verified 02/28/24 12:30 Anti-Inflamma Swelling sulfamethoxazole Allergy Itching Verified 02/28/24 12:30 [From Bactrim] trimethoprim [From Bactrim] Allergy Itching Verified 02/28/24 12:30 Physical Exam Vitals: Vital Signs Temp Pulse Pulse Resp BP BP Pulse Ox 02/28/24 07:00 97.5 F L 54 L 18 110/68 99 02/28/24 04:40 98.1 F 65 18 133/85 98 02/28/24 04:00 61 20 124/74 94 L 02/28/24 02:20 61 18 118/85 100 02/28/24 00:42 20 02/28/24 00:09 97 F L 60 18 118/85 97 Intake and Output 02/27/24 02/28/24 02/28/24 22:59 06:59 14:59 Other: # Voids 1 Weight 81.647 kg 81.647 kg Thrombosis Risk Factor Assmnt - Choose All That Apply Each Factor Represents 1 point: Age 41-60 years, Obesity (BMI >25) Thrombosis Risk Factor Assessment Total Risk Factor Score: 2 Thrombosis Risk Factor Assessment Level: Low Risk
[2024-02-28 15:08] VITALS: BP 101/65; PULSE 59; RESP 17; TEMP 97.9
--- NOTE | 2024-03-02 21:53 | P.DS ---
Providers Date of admission: 02/28/24 02:28 Attending physician: Arleth Perez MD Consults: 02/28/24 02:25 Consult Physician Routine Consulting Provider: Jose Sim Consult Reason/Comments: Pneumothorx Do you want consulting provider notified?: Yes Consult Physician Routine Consulting Provider: Cheo Drake Reason/Comments: Pneumothorax Do you want consulting provider notified?: Yes [facility] Discharge Diagnosis(es) (1) Chest pain Current Visit: Yes Status: Acute Hospital Course: Discharge diagnoses: Left-sided small pneumothorax per radiology read, per documentation apparently slightly larger than from previous CAT scan Chest pain, shortness of breath: Improved History of hospitalization in November 2023 for respiratory failure, bilateral hydropneumothoraces with empyema and septic shock History of MRSA bacteremiafinished vancomycin History of multiple sclerosis Migraine Seizure Fibromyalgia Hypertension Asthma Depression/bipolar//anxiety Polysubstance use Current vape use Reported left-sided small pneumothorax slightly larger from previous CAT scan per report. Presented with chest pain and shortness of breath. Currently on room air saturating 98%. Pulmonary and thoracic surgery consulted--chest x-ray reviewed by Dr. Royal and Dr. Mcgraw, at this point no indication for chest tube placement. Shortness of breath likely multifactorial given small pneumothorax, obesity, current BP usage. No surgical intervention warranted. Recommend incentive spirometry. Recommended smoking/vaping cessation, okay to discharge. Hospital course; 44-year-old female who presented to [facility] initially with shortness of breath and chest pain. Patient was evaluated there, had x-rays and CT scan done and patient was transferred here for further management. Apparently patient CT scan showed a left-sided pneumothorax which apparently was a bit larger than previous scans which was done back in December.The patient was recently here between November 22 and December 11. On that admission, she came in with bilateral pneumonia, secondary to methicillin-resistant Staph aureus, developed acute respiratory failure requiring intubation and mechanical ventilation, had bilateral pneumothoraces, and ended up requiring a tracheostomy tube and a PEG tube. She was finally discharged on December 11 from the hospital, and [facility], so that she could be weaned further. She eventually was weaned from mechanical ventilation, decannulated, and was discharged from [facility] on January 16. After that, she went home. She has been doing reasonably well until she presented to the emergency department at [facility], yesterday. I was consulted, as well as cardiothoracic surgery for the pneumothorax. Apparently, we do not have any of the x-rays or scans from the outside hospital. The workup at the other hospital showed a CBC that was essentially normal. Urinalysis and chemistries were all within normal range. She tested negative on her test, and troponins and N-terminal proBNP were also negative. The CT scan done at the outside hospital apparently showed a 6 small left pneumothorax, which was a bit larger in size from a previous CT scan done in December. The patient states that she does not smoke. She sees Beatriz Abdi as her primary caregiver. Presented to the hospital from home patient stated that she has finished her rehab and also has finished vancomycin few weeks previously. Vitals currently stable, afebrile, heart rate 65, respiratory rate 18, saturating 98% on room air. Chest x-ray showed pneumothorax seen on the prior CT at an outside institution is less well-appreciated on radiograph but remains present. Patient was admitted to hospital for further evaluation and management. Patient was monitored, with oxygen was weaned off, patient was saturating 98% on room air. Pulmonary and thoracic surgery consulted. chest x-ray reviewed by Dr. Royal and Dr. Mcgraw, at this point no indication for chest tube placement. Shortness of breath likely multifactorial given small pneumothorax, obesity, current BP usage. No surgical intervention warranted. Recommend incentive spirometry. Recommended smoking/vaping cessation, okay to discharge. Patient condition and vital stable at discharge. Discharge plan was discussed with patient and at bedside, warning signs including worsening shortness of breath, chest pain, wheezing, fever, chills, cough, dizziness, syncope discussed with patient has been. They verbalized understanding. Follow up with PCP in 1 week. PHYSICAL EXAMINATION: GENERAL: The patient is alert and oriented x3, not in any acute distress. Well developed, well nourished. HEENT: Pupils are round and equally reacting to light. EOMI. No scleral icterus. No conjunctival pallor. Normocephalic, atraumatic. No pharyngeal erythema. No thyromegaly. CARDIOVASCULAR: S1 and S2 present. No murmurs, rubs, or gallops. PULMONARY: Chest is clear to auscultation, no wheezing or crackles. ABDOMEN: Soft, nontender, nondistended, normoactive bowel sounds. No palpable organomegaly. MUSCULOSKELETAL: No joint swelling or deformity. EXTREMITIES: No cyanosis, clubbing, or pedal edema. NEUROLOGICAL: Gross neurological examination did not reveal any focal deficits. SKIN: No rashes. Dictation was produced using [employer] dictation software. please excuse any grammatical, word or spelling errors. Patient Condition at Discharge: Stable Plan - Discharge Summary Discharge Rx Participant: Yes New Discharge Prescriptions: Continue Loperamide [Imodium] 2 mg PO QID PRN PRN Reason: Diarrhea QUEtiapine [SEROquel] 50 mg PO HS oxyCODONE-APAP 10-325MG [Percocet 10-325 mg] 1 tab PO BID PRN PRN Reason: Pain Baclofen [Lioresal] 10 mg PO BID Ondansetron Odt [Zofran ODT] 4 mg PO BID PRN PRN Reason: Nausea Ipratropium/Albuter 20-100Mcg [Combivent Respimat 20-100Mcg Inhaler] 1 puff INHALATION RT-DAILY PRN PRN Reason: Shortness Of Breath Albuterol Inhaler [Ventolin Hfa Inhaler] 1 puff INHALATION RT-Q4H PRN PRN Reason: Shortness Of Breath FLUoxetine HCL [PROzac] 20 mg PO DAILY Pantoprazole [Protonix] 40 mg PO BID Loratadine [Claritin] 10 mg PO DAILY Metoprolol Tartrate [Lopressor] 50 mg PO BID-W/MEALS Dicyclomine [Bentyl] 20 mg PO TID PRN PRN Reason: cramps Dextroamphetamine/Amphetamine [Adderall] 30 mg PO DAILY PRN PRN Reason: Fatigue diazePAM 10 mg PO DAILY Discharge Medication List FLUoxetine HCL [PROzac] 20 mg PO DAILY 11/23/23 [History] Albuterol Inhaler [Ventolin Hfa Inhaler] 1 puff INHALATION RT-Q4H PRN 02/28/24 [History] Baclofen [Lioresal] 10 mg PO BID 02/28/24 [History] Dextroamphetamine/Amphetamine [Adderall] 30 mg PO DAILY PRN 02/28/24 [History] Dicyclomine [Bentyl] 20 mg PO TID PRN 02/28/24 [History] Ipratropium/Albuter 20-100Mcg [Combivent Respimat 20-100Mcg Inhaler] 1 puff INHALATION RT-DAILY PRN 02/28/24 [History] Loperamide [Imodium] 2 mg PO QID PRN 02/28/24 [History] Loratadine [Claritin] 10 mg PO DAILY 02/28/24 [History] Metoprolol Tartrate [Lopressor] 50 mg PO BID-W/MEALS 02/28/24 [History] Ondansetron Odt [Zofran ODT] 4 mg PO BID PRN 02/28/24 [History] Pantoprazole [Protonix] 40 mg PO BID 02/28/24 [History] QUEtiapine [SEROquel] 50 mg PO HS 02/28/24 [History] diazePAM 10 mg PO DAILY 02/28/24 [History] oxyCODONE-APAP 10-325MG [Percocet 10-325 mg] 1 tab PO BID PRN 02/28/24 [History] Follow up Appointment(s)/Referral(s): Isabell Mukherjee MD [REFERRING] - 1-2 days Patient Instructions/Handouts: Weakness (DC), Shortness of Breath (DC) Discharge Disposition: HOME SELF-CARE
== END 2024-02-28 16:00 | disposition home or self-care (01) ==
LOC: EC 23:34 → 6NMEDSUR 02-28 02:28
PROVIDERS: ADMIT Internal Medicine; ATTEND Internal Medicine
DX: J93.9 Pneumothorax, unspecified (principal); I10 Essential (primary) hypertension; G43.909 Migraine, unspecified, not intractable, without status migrainosus; G35 Multiple sclerosis; J45.909 Unspecified asthma, uncomplicated; M79.7 Fibromyalgia; E66.01 Morbid (severe) obesity due to excess calories; G40.909 Epilepsy, unspecified, not intractable, without status epilepticus; G89.4 Chronic pain syndrome; N30.10 Interstitial cystitis (chronic) without hematuria; F19.10 Other psychoactive substance abuse, uncomplicated; F17.290 Nicotine dependence, other tobacco product, uncomplicated; F31.9 Bipolar disorder, unspecified; F41.9 Anxiety disorder, unspecified; E66.9 Obesity, unspecified; Z68.29 Body mass index [BMI] 29.0-29.9, adult; Z93.1 Gastrostomy status; Z79.01 Long term (current) use of anticoagulants; Z79.4 Long term (current) use of insulin; Z79.899 Other long term (current) drug therapy; Z88.5 Allergy status to narcotic agent; Z88.0 Allergy status to penicillin; Z88.2 Allergy status to sulfonamides; Z88.8 Allergy status to other drugs, medicaments and biological substances; Z88.6 Allergy status to analgesic agent; Z88.1 Allergy status to other antibiotic agents; Z91.030 Bee allergy status; Z91.040 Latex allergy status; Z87.01 Personal history of pneumonia (recurrent); Z87.09 Personal history of other diseases of the respiratory system; Z86.19 Personal history of other infectious and parasitic diseases
CPT/HCPCS: 96376; 96374; 96375; 99285; 71045; G0378; J2270; J2405

== ENCOUNTER 2024-04-25 09:33 | Inpatient (IN) | payer MEDICARE, OTHER ==
[2024-04-25 10:23] LABS: Basophils % (A) 1 %; Eosinophils # (A) 0.3 k/uL (0-0.7); Eosinophils % (A) 5 %; HCT 39.7 % (34.0-46.0); HGB 12.9 gm/dL (11.4-16.0); Lymphocytes # (A) 1.5 k/uL (1.0-4.8); Lymphocytes % (A) 24 %; MCH 27.9 pg (25.0-35.0); MCHC 32.4 g/dL (31.0-37.0); MCV 86.1 fL (80.0-100.0); Mean Platelet Volume 7.2; Monocytes # (A) 0.3 k/uL (0-1.0); Monocytes % (A) 5 %; Neutrophils # (A) 3.8 k/uL (1.3-7.7); Neutrophils % (A) 63 %; Platelet Count 328 k/uL (150-450); RBC 4.61 m/uL (3.80-5.40)
[2024-04-25 10:31] LABS: ALT 20 U/L (4-34); AST 28 U/L (14-36); African American GFR (CKD) >90 (>60 ml/min/1.73 sqM); Albumin 3.8 g/dL (3.5-5.0); Alkaline Phosphatase 51 U/L (38-126); Anion Gap 6 mmol/L; Blood Urea Nitrogen 12 mg/dL (7-17); Calcium 9.3 mg/dL (8.4-10.2); Carbon Dioxide 29 mmol/L (22-30); Chloride 105 mmol/L (98-107); Glucose 78 mg/dL (74-99); Magnesium 1.5 mg/dL (1.6-2.3); Non-African American GFR(CKD) >90 (>60 ml/min/1.73 sqM); Potassium 4.1 mmol/L (3.5-5.1); Sodium 140 mmol/L (137-145); Total Bilirubin 0.5 mg/dL (0.2-1.3); Total Protein 6.7 g/dL (6.3-8.2)
--- NOTE | 2024-04-25 10:32 | ED ---
Chest Pain HPI - General Chief Complaint: Chest Pain Stated Complaint: Loss of vision, nausea Time Seen by Provider: 04/25/24 10:00 Source: patient, RN notes reviewed Mode of arrival: ambulatory Limitations: no limitations - History of Present Illness Initial Comments: This is a 44-year-old female who presents to the emergency department for chest pain and shortness of breath. States that it started yesterday. Additionally, states that she may be having another MS flareup as she is having problems with her vision as well as paresthesias in her arms. She does have a headache with the associated vision changes. She has not had problems with her vision in relation to the MS in many years. States that when she has these severe flareups she typically requires hospitalization here with IV steroids. MD Complaint: chest pain - Related Data Home Medications Medication Instructions Recorded Confirmed FLUoxetine HCL [PROzac] 20 mg PO DAILY 11/23/23 04/25/24 Albuterol Inhaler [Ventolin Hfa 1 puff INHALATION RT-Q4H PRN 02/28/24 04/25/24 Inhaler] Baclofen [Lioresal] 10 mg PO BID 02/28/24 04/25/24 Dextroamphetamine/Amphetamine 30 mg PO DAILY PRN 02/28/24 04/25/24 [Adderall] Dicyclomine [Bentyl] 20 mg PO TID PRN 02/28/24 04/25/24 Ipratropium/Albuter 20-100Mcg 1 puff INHALATION RT-DAILY PRN 02/28/24 04/25/24 [Combivent Respimat 20-100Mcg Inhaler] Loperamide [Imodium] 2 mg PO QID PRN 02/28/24 04/25/24 Loratadine [Claritin] 10 mg PO DAILY 02/28/24 04/25/24 Metoprolol Tartrate [Lopressor] 50 mg PO BID-W/MEALS 02/28/24 04/25/24 Ondansetron Odt [Zofran ODT] 4 mg PO BID PRN 02/28/24 04/25/24 Pantoprazole [Protonix] 40 mg PO BID 02/28/24 04/25/24 diazePAM 10 mg PO DAILY 02/28/24 04/25/24 oxyCODONE-APAP 10-325MG [Percocet 1 tab PO BID PRN 02/28/24 04/25/24 10-325 mg] QUEtiapine [SEROquel] 100 mg PO HS 04/25/24 04/25/24 Allergies Allergy/AdvReac Type Severity Reaction Status Date / Time amoxicillin [Amoxicillin] Allergy Severe Anaphylaxis, Verified 04/25/24 13:24 seizures ciprofloxacin [From Cipro] Allergy Severe Rash/Hives, Verified 04/25/24 13:24 seizures codeine phosphate Allergy Unknown Rash/Hives Verified 04/25/24 13:24 [From Tylenol-Codeine #3] bee venom protein (honey bee) Allergy Anaphylaxis Verified 04/25/24 13:24 cefuroxime axetil Allergy Rash/Hives Verified 04/25/24 13:24 [From Ceftin] gabapentin [From Neurontin] Allergy Swelling Verified 04/25/24 13:24 ketorolac [From Toradol] Allergy Rash/Hives Verified 04/25/24 13:24 latex Allergy Rash/Hives Verified 04/25/24 13:24 NSAIDS (Non-Steroidal Allergy Rash/Hives/Lip Verified 04/25/24 13:24 Anti-Inflamma Swelling sulfamethoxazole Allergy Itching Verified 04/25/24 13:24 [From Bactrim] trimethoprim [From Bactrim] Allergy Itching Verified 04/25/24 13:24 Review of Systems ROS Statement: Those systems with pertinent positive or pertinent negative responses have been documented in the HPI. ROS Other: All systems not noted in ROS Statement are negative. Past Medical History Past Medical History: No Reported History, Asthma, Fibromyalgia, GERD/Reflux, Hypertension, Musculoskeletal Disorder, Neurologic Disorder, Pneumonia, Seizure Disorder Additional Past Medical History / Comment(s): Multiple Sclerosis, angina, migraines, DJD, interstitial cystitis, UTI, PCOS, vit D deficiency, bilateral optic neuritis with visual problems, generalized chronic pain, numbness/tingling bilateral lower legs, tachycardia, c-diff 5-9-16, seizures from MS last one around 2017. ADHD. PAST [employer] HISTORY: She has no history of STDs. PCOS. MS History of Any Multi-Drug Resistant Organisms: C-DIFF Date of last positivie culture/infection: 2017 MDRO Source:: stool Past Surgical History: Cholecystectomy, Orthopedic Surgery Additional Past Surgical History / Comment(s): Lt shoulder rotator cuff repair 06/06/14, arthroscopic left knee 2000 & 2002, left shoulder reconstruction Past Anesthesia/Blood Transfusion Reactions: No Reported Reaction Additional Past Anesthesia/Blood Transfusion Reaction / Comment(s): Pt has never recieved blood. Past Psychological History: Anxiety, Bipolar, Depression Smoking Status: Never smoker Past Alcohol Use History: Rare Past Drug Use History: Cocaine, Heroin, Marijuana - Past Family History Mother Family Medical History: No Reported History Additional Family Medical History / Comment(s): mother is healthy. Maternal grandmother had uterine cancer. Maternal grandfather had bladder cancer. Father Family Medical History: Hypertension Additional Family Medical History / Comment(s): Paternal grandfather had an [place]. General Exam - General Exam Comments Initial Comments: Visual Physical Exam Vital signs reviewed General: Well-appearing, nontoxic, no acute distress. Head: Normocephalic, atraumatic Eyes: PERRLA, EOMI ENT: Airway patent Chest: Nonlabored breathing Skin: No visual rash, normal skin tone Neuro: Alert and oriented 3 Musculoskeletal: No gross abnormalities Limitations: no limitations General appearance: alert, in no apparent distress Head exam: Present: atraumatic, normocephalic, normal inspection Eye exam: Present: normal appearance, PERRL, EOMI. Absent: scleral icterus, conjunctival injection, periorbital swelling Respiratory exam: Present: normal lung sounds bilaterally. Absent: respiratory distress, wheezes, rales, rhonchi, stridor Cardiovascular Exam: Present: regular rate, normal rhythm, normal heart sounds. Absent: systolic murmur, diastolic murmur, rubs, gallop, clicks Neurological exam: Present: alert, oriented X3, CN II-XII intact Psychiatric exam: Present: normal affect, normal mood Skin exam: Present: warm, dry, intact, normal color. Absent: rash Course Vital Signs 04/25/24 04/25/24 04/25/24 09:41 12:25 13:57 Temperature 98.3 F Pulse Rate 95 76 65 Respiratory 20 16 16 Rate Blood Pressure 118/82 120/75 116/74 O2 Sat by Pulse 99 96 Oximetry 04/25/24 04/25/24 04/25/24 14:28 15:33 17:02 Temperature Pulse Rate 79 78 79 Respiratory 16 16 16 Rate Blood Pressure 112/48 127/89 121/82 O2 Sat by Pulse 96 96 Oximetry 04/25/24 18:04 Temperature Pulse Rate 90 Respiratory 16 Rate Blood Pressure 121/78 O2 Sat by Pulse Oximetry Chest Pain MDM - MDM This is a 44-year-old female who presents to the emergency department for vision loss and chest pain. Was pt. sent in by a medical professional or institution? @ -No Did you speak to anyone other than the patient for history? @ -No Did you review nursing and triage notes? @ -Yes, and I agree, it is accurate with regards to the patient's symptoms. Were old charts reviewed? @ -No Differential Diagnosis? @ -Differential Chest Pain: Stable Angina, Unstable Angina, STEMI, NSTEMI Aortic Dissection, Pneumothorax, Musculoskeletal, Esophageal Spasm GERD, Cholecystitis, Pancreatitis, Zoster, this is not meant to be an all-inclusive list. EKG interpreted by me (3pts min.)? @ -EKG interpreted by me demonstrating the following: Sinus rhythm. Ventricular rate 91 bpm, MD interval 103 ms, QRS duration 90 ms, QTc 385 ms. X-rays interpreted by me (1pt min.)? @ -Chest x-ray obtained, my interpretation identifies no localized consolidations or infiltrates. CT interpreted by me (1pt min.)? @ -CT scan of the brain obtained. My interpretation identifies no evidence of an acute intracranial hemorrhage. U/S interpreted by me (1pt. min.)? @ -Not obtained What testing was considered but not performed? (CT, X-rays, U/S, labs)? Why? @ -None What meds were considered but not given? Why? @ -None Did you discuss the management of the patient with other professionals? @ -Yes, Dr. Lloyd, who accepts the patient for admission. Did you reconcile home meds? @ -Yes Was smoking cessation discussed for >3mins.? @ -I discussed smoking cessation for greater than 3 minutes. The risk of smoking were discussed with the patient including but not limited to risks of cancer, stroke, coronary artery disease and COPD. Also discussed with patient were multiple methods of quitting smoking. Lastly we discussed the financial cost of smoking. Was critical care preformed (if so, how long)? @ -No Were there social determinants of health that impacted care today? How? (Homelessness, low income, unemployed, alcoholism, drug addiction, grimm sportation, low edu. Level, literacy, decrease access to med. care, penitentiary, rehab)? @ -No Was there de-escalation of care discussed even if they declined? (Discuss DNR or withdrawal of care, Hospice)? @ -No What co-morbidities impacted this encounter? (DM, HTN, Smoking, COPD, CAD, Cancer, CVA, Hep., AIDS, mental health diagnosis, sleep apnea, morbid obesity)? @ -MS, smoking, fibromyalgia Was patient admitted / discharged? @ -Admitted. Lab work unremarkable including a negative troponin. Chest x-ray reveals no acute process. CT scan of the brain appeared stable without any acute intracranial process. Patient's visual changes with retro-orbital headache are concerning for optic neuritis related to MS exacerbation. Patient admitted to medicine for MS exacerbation and treatment with high-dose IV steroids. 1 g of Solu-Medrol ordered to be given daily. Consult placed for neurology. Serial troponins were ordered as well due to patient's complaint of chest pain. Case discussed with ED attending, Dr. Kauffman. Undiagnosed new problem with uncertain prognosis? @ -None Drug Therapy requiring intensive monitoring for toxicity (Heparin, Nitro, Insulin, Cardizem)? @ -None Were any procedures done? @ -None Diagnosis/symptom? @ -MS exacerbation/optic neuritis Acute, or Chronic, or Acute on Chronic? @ -Acute Uncomplicated (without systemic symptoms) or Complicated (systemic symptoms)? @ -Complicated Side effects of treatment? @ -None Exacerbation, Progression, or Severe Exacerbation] @ -Exacerbation of MS Poses a threat to life or bodily function? @ -Yes, patient is struggling to function due to visual changes and headache Disposition Clinical Impression: Optic neuritis due to multiple sclerosis, Multiple sclerosis exacerbation Disposition: ADMITTED IP TO THIS HOSP
[2024-04-25 10:38] LABS: Partial Thromboplastin Time 22.9 sec (22.0-30.0); Prothrombin Time 10.7 sec (10.0-12.5)
[2024-04-25 11:09] LABS: HCG,Qualitative Serum Not Detected
--- NOTE | 2024-04-25 11:14 | XR ---
EXAMINATION TYPE: XR chest 1V portable DATE OF EXAM: 04/25/2024 Comparison: 02/28/2024 Clinical History: 44-year-old female chest pain Findings: The cardiomediastinal silhouette, aorta, and pulmonary vasculature are within normal limits. Lungs and pleural spaces are clear. Suture anchor left humeral head from prior cuff repair. Either postsu rgical or posterior medication changes of the left AC joint. Impression: No acute cardiopulmonary process. [facility], , 04/25/2024 11:12 AM
--- NOTE | 2024-04-25 11:58 | CT ---
EXAMINATION TYPE: CT brain wo con DATE OF EXAM: 04/25/2024 COMPARISON: 05/28/2022 HISTORY: 44-year-old female patient loss, nausea TECHNIQUE: Examination was done in axial plane without intravenous contrast. Coronal and sagittal r econstructions performed. CT DLP: 1139.4 mGycm Automated exposure control for dose reduction was used. FINDINGS: Redemonstrated encephalomalacia posterior right occipital lobe and right paramedian anterior parietal lobe. Lesser degree of changes left occipital lobe is similar. There is no evidence of acute intracranial hemorrhage, acute ischemic changes, mass, mass-effect, or extra-axial fluid collection. There is no effacement of cerebral sulci or basal subarachnoid cister ns. There is no hydrocephalus. There is no midline shift. Bhandari-white matter distinction is preserv ed. Paranasal sinuses and mastoid air cells are well pneumatized. Orbits and globes are intact. IMPRESSION: 1. Redemonstrated encephalomalacia right parieto-occipital region suggesting sequela of prior vascula r or traumatic insult. Lesser degree of changes left occipital lobe are also unchanged. 2. No acute intracranial abnormality seen. [facility], , 04/25/2024 11:56 AM
[2024-04-25] MEDS: methylPREDNISolone SOD SUCCIN 1,000 MG in SODIUM CHLORIDE 0.9% 250 ML IVPB SCH (12:19)
[2024-04-25] MEDS: HYDROmorphone 1 MG/ML 1 ML SYRINGE IVP STA ×2 (12:20→13:13)
[2024-04-25] MEDS: ONDANSETRON 4 MG/2 ML VIAL IVP STA (12:20)
[2024-04-25] MEDS: SODIUM CHLORIDE 0.9% 1,000 ML IV STA (12:20)
[2024-04-25] MEDS ORDERED: NALOXONE 0.4 MG/ML 1 ML VIAL IV PRN (14:03)
[2024-04-25] MEDS ORDERED: ACETAMINOPHEN TAB 325 MG TAB PO PRN (14:03)
[2024-04-25] MEDS ORDERED: LOPERAMIDE 2 MG CAP PO PRN (14:06)
[2024-04-25] MEDS ORDERED: NON FORMULARY DRUG (Dextroamphetamine/Amphetamine [Adderall] 30 MG Tablet) PO PRN (14:06)
[2024-04-25] MEDS ORDERED: ONDANSETRON ODT 4 MG TAB PO PRN (14:06)
[2024-04-25] MEDS: HYDROmorphone 0.5 MG/0.5 ML SYRINGE IVP PRN (14:38)
[2024-04-25] MEDS: ONDANSETRON 4 MG/2 ML VIAL IVP PRN (15:31)
[2024-04-25] MEDS: METOPROLOL TARTRATE 50 MG TAB PO SCH (17:04)
[2024-04-25 17:22] LABS: Appearance,Urine Clear (Clear); Bilirubin,Urine Negative (Negative); Blood,Urine Trace (Negative); Color,Urine Light Yellow; Glucose,Urine (UA) Negative (Negative); Ketones,Urine Negative (Negative); Leukocyte Esterase,Urine Negative (Negative); Mucus,Urine Rare /hpf; Nitrite,Urine Negative (Negative); PH, Urine 5.5 (5.0-8.0); Protein,Urine Negative (Negative); RBC,Urine 1 /hpf (0-5); Specific Gravity,Urine 1.021 (1.001-1.035); Squamous Epithelial Cell,Urine 2 /hpf (0-4); Urobilinogen,Urine <2.0 mg/dL (<2.0); WBC,Urine 1 /hpf (0-5)
[2024-04-25] MEDS: MAGNESIUM OXIDE 400 MG TAB PO STA (18:23)
[2024-04-25] MEDS: HYDROmorphone 1 MG/ML 1 ML SYRINGE IVP PRN (18:33)
--- NOTE | 2024-04-25 20:52 | P.HPIM ---
History of Present Illness H&P Date: 04/25/24 Chief Complaint: Headache blurry vision This is a 44-year-old patient, follows with PCP Dr. Cheo Sanchez. Medical history to include asthma, fibromyalgia, GERD, essential hypertension, seizure disorder, MS, migraines, interstitial cystitis, polycystic ovarian syndrome, vitamin D deficiency, bilateral optic neuritis, generalized chronic pain, ADHD. Bipolar. Patient follows with neurologist , neurologist for her multiple sclerosis. She has gone through disease modifying drugs. Last that she took a dose ofmarenclad which is taken once a year for 2 years. Due to taking this year. Patient now presents with severe pressure behind both the eyes. Blurry vision. She has left-sided weakness does use a walker. More so weak on the left side. No change in bowel pattern. Has urinary urgency. She feels her back is on fire. There is numbness from the left knee down to the left foot. No fever no chills. Rather protracted course in the hospital in December of this year. Patient was intubated to mechanical ventilator. Had a tracheostomy tube. Bilateral pneumonia with bilateral pneumothoraces. Bilateral empyema. Requiring chest tubes. Including secondary cavitation and complications. Septic shock. History of incarcerated and local assisted and polysubstance abuse. Interstitial cystitis also had been had a PEG tube. Patient then [facility] Review of systems: GEN.: Tired EYES: As above e HEENT: [As above NECK: None RESPIRATORY: None CARDIOVASCULAR: None GASTROINTESTINAL: None GENITOURINARY: None MUSCULOSKELETAL: Chronic joint pain LYMPHATICS: None HEMATOLOGICAL: None PSYCHIATRY: Anxious NEUROLOGICAL: As above, uses a walker Social history: Stopped in 2017. Lives with her and 16-year-old daughter. Past history of cocaine inhaling heroin marijuana pain pills. Physical examination: VITAL SIGNS: 97.8, 83, 16, 125 x 83, 95% room air GENERAL: [BMI 29.1, reclining bed awake slightly anxious. EYES: Pupils equal. Conjunctiva ilan l. HEENT: External appearance of nose and ears normal, oral cavity grossly normal. NECK: JVD not raised; masses not palpable. HEART: First and second heart sounds are normal; no edema. LUNGS: Respiratory rate normal; air entry. ABDOMEN: Soft, nontender, liver spleen not palpable, no masses palpable. PSYCH: Alert and oriented x3; mood and chest l. MUSCULOSKELETAL:No Clubbing/cyanosis;muscles-grossly intact NEUROLOGICAL: [Cranial nerves grossly intact; no facial asymmetry, power and sensation grossly intact weakness in the left arm. Power 4/5. Weakness in the left leg. 2-3/5 decree sensation. LYMPHATICS: No lymph nodes palpable in the axilla and neck INVESTIGATIONS, reviewed in the clinical context: April 25: White count 6 hemoglobin 12.9 platelets 328 sodium 140 potassium 4.1 BUN 12 creatinine 0.81 Troponin I x 3 less than 0.012 EKG tracing personally reviewed by me-normal sinus rhythm Chest x-ray film personally reviewed by me-a bit underpenetrated. Borderline cardiomegaly. No obvious infiltrate CT brain without contrast: Encephalomalacia right parietal occipital region suggesting sequela of prior vascular traumatic insult. Lesser degree of changes to left occipital lobe. Assessment plan: -Acute on chronic flareup of multiple sclerosis. Patient now presenting with pressure behind both the eyes some blurriness. Has weakness on the left side. Increased weakness left lower extremity with numbness from below the knee down to the ankle. IV Solu-Medrol 1000 mg IV daily. Neurology consulted. Patient follows with his neurologist . Currently on medication calledMarvenclad-took 1 dose last year -Chronic fibromyalgia -GERD Protonix -COPD no prior smoker Combivent as needed -Essential hypertension Lopressor 50 mg twice daily -Bipolar Valium. Prozac. Seroquel -Chronic pain syndrome On Percocet at home. Currently getting Dilaudid -Chronic gait dysfunction uses a walker at baseline -Full code Care was discussed with patient. Questions answered. Neurology consulted. - Past Medical History Past Medical History: No Reported History, Asthma, Fibromyalgia, GERD/Reflux, Hypertension, Musculoskeletal Disorder, Neurologic Disorder, Pneumonia, Seizure Disorder Additional Past Medical History / Comment(s): Multiple Sclerosis, angina, migraines, DJD, interstitial cystitis, UTI, PCOS, vit D deficiency, bilateral op tic neuritis with visual problems, generalized chronic pain, numbness/tingling bilateral lower legs, tachycardia, c-diff 5-9-16, seizures from MS last one around 2017. ADHD. 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 PCOS. MS History of Any Multi-Drug Resistant Organisms: C-DIFF Date of last positivie culture/infection: 2017 MDRO Source:: stool Past Surgical History: Cholecystectomy, Orthopedic Surgery Additional Past Surgical History / Comment(s): Lt shoulder rotator cuff repair 06/06/14, arthroscopic left knee 2000 & 2002, left shoulder reconstruction Past Anesthesia/Blood Transfusion Reactions: No Reported Reaction Additional Past Anesthesia/Blood Transfusion Reaction / Comment(s): Pt has never recieved blood. Past Psychological History: Anxiety, Bipolar, Depression Smoking Status: Never smoker Past Alcohol Use History: Rare Past Drug Use History: Cocaine, Heroin, Marijuana - Past Family History Mother Family Medical History: No Reported History Additional Family Medical History / Comment(s): mother is healthy. Maternal grandmother had uterine cancer. Maternal grandfather had bladder cancer. Father Family Medical History: Hypertension Additional Family Medical History / Comment(s): Paternal grandfather had an [place]. Medications and Allergies Home Medications Medication Instructions Recorded Confirmed Type FLUoxetine HCL [PROzac] 20 mg PO DAILY 11/23/23 04/25/24 History Albuterol Inhaler [Ventolin Hfa 1 puff INHALATION RT-Q4H PRN 02/28/24 04/25/24 History Inhaler] Baclofen [Lioresal] 10 mg PO BID 02/28/24 04/25/24 History Dextroamphetamine/Amphetamine 30 mg PO DAILY PRN 02/28/24 04/25/24 History [Adderall] Dicyclomine [Bentyl] 20 mg PO TID PRN 02/28/24 04/25/24 History Ipratropium/Albuter 20-100Mcg 1 puff INHALATION RT-DAILY PRN 02/28/24 04/25/24 History [Combivent Respimat 20-100Mcg Inhaler] Loperamide [Imodium] 2 mg PO QID PRN 02/28/24 04/25/24 History Loratadine [Claritin] 10 mg PO DAILY 02/28/24 04/25/24 History Metoprolol Tartrate [Lopressor] 50 mg PO BID-W/MEALS 02/28/24 04/25/24 History Ondansetron Odt [Zofran ODT] 4 mg PO BID PRN 02/28/24 04/25/24 History Pantoprazole [Protonix] 40 mg PO BID 02/28/24 04/25/24 History diazePAM 10 mg PO DAILY 02/28/24 04/25/24 History oxyCODONE-APAP 10-325MG [Percocet 1 tab PO BID PRN 02/28/24 04/25/24 History 10-325 mg] QUEtiapine [SEROquel] 100 mg PO HS 04/25/24 04/25/24 History Allergies Allergy/AdvReac Type Severity Reaction Status Date / Time amoxicillin [Amoxicillin] Allergy Severe Anaphylaxis, Verified 04/25/24 13:24 seizures ciprofloxacin [From Cipro] Allergy Severe Rash/Hives, Verified 04/25/24 13:24 seizures codeine phosphate Allergy Unknown Rash/Hives Verified 04/25/24 13:24 [From Tylenol-Codeine #3] bee venom protein (honey bee) Allergy Anaphylaxis Verified 04/25/24 13:24 cefuroxime axetil Allergy Rash/Hives Verified 04/25/24 13:24 [From Ceftin] gabapentin [From Neurontin] Allergy Swelling Verified 04/25/24 13:24 ketorolac [From Toradol] Allergy Rash/Hives Verified 04/25/24 13:24 latex Allergy Rash/Hives Verified 04/25/24 13:24 NSAIDS (Non-Steroidal Allergy Rash/Hives/Lip Verified 04/25/24 13:24 Anti-Inflamma Swelling sulfamethoxazole Allergy Itching Verified 04/25/24 13:24 [From Bactrim] trimethoprim [From Bactrim] Allergy Itching Verified 04/25/24 13:24 Physical Exam Vitals: Vital Signs Temp Pulse Pulse Resp BP BP Pulse Ox 04/25/24 18:12 97.8 F 83 16 125/83 95 04/25/24 18:04 90 16 121/78 04/25/24 17:02 79 16 121/82 04/25/24 15:33 78 16 127/89 96 04/25/24 14:28 79 16 112/48 96 04/25/24 13:57 65 16 116/74 96 04/25/24 12:25 76 16 120/75 04/25/24 09:41 98.3 F 95 20 118/82 99 Intake and Output 04/25/24 04/25/24 04/25/24 06:59 14:59 22:59 Other: Weight 81.647 kg 81.647 kg Results CBC & Chem 7: 04/25/24 09:51 04/25/24 09:51 Labs: Abnormal Lab Results - Last 24 Hours (Table) 04/25/24 04/25/24 Range/Units 09:51 17:08 Magnesium 1.5 L (1.6-2.3) mg/dL Urine Blood Trace H (Negative) Urine Mucus Rare H (None) /hpf
[2024-04-25] MEDS ORDERED: PANTOPRAZOLE 40 MG TABLET PO SCH (21:00)
[2024-04-25] MEDS: QUEtiapine 100 MG TAB PO SCH (21:45)
[2024-04-25] MEDS: SUMAtriptan succinate 50 MG TAB PO PRN (21:45)
[2024-04-25] MEDS: BACLOFEN 10 MG TAB PO SCH (21:45)
[2024-04-26] MEDS: oxyCODONE-APAP 10-325MG 1 EACH TAB PO PRN (05:29)
[2024-04-26] MEDS: PANTOPRAZOLE 40 MG TABLET PO SCH (05:30)
[2024-04-26] MEDS: ALBUTEROL NEBULIZED 2.5 MG/3 ML INHALATION PRN (07:29)
[2024-04-26] MEDS: LORATADINE 10 MG TAB PO SCH (08:18)
[2024-04-26] MEDS: diazePAM 5 MG TAB PO SCH (08:18)
[2024-04-26] MEDS: FLUoxetine HCL 20 MG CAP PO SCH (08:18)
[2024-04-26] MEDS ORDERED: PANTOPRAZOLE 40 MG/10 ML VIAL IV SCH (09:00)
[2024-04-26] MEDS: DICYCLOMINE 20 MG TAB PO PRN (09:33)
[2024-04-26] MEDS: QUEtiapine 100 MG TAB PO SCH (10:36)
--- NOTE | 2024-04-26 14:51 | P.CNPUL ---
History of Present Illness Consult date: 04/26/24 Requesting physician: Mark Lloyd Reason for consult: other (Chest tube site pain) Chief complaint: Multiple sclerosis flareup History of present illness: This is a 44-year-old female patient with a known history of multiple sclerosis, fibromyalgia, hypertension, seizure disorder, respiratory failure requiring intubation mechanical ventilatory support with subsequent tracheostomy and PEG tube placements in November and December 2023. Bilateral empyema with chest tube placement subsequent removal. Also admitted for a small left sided pneumothorax February 2024 that did not require chest tube insertion. She presented here on April 25, 2024 with complaints of a possible multiple sclerosis flareup, chest pain, and pain at the old chest tube sites. X-ray reveals no acute pulmonary process. CT scan of the brain redemonstrated encephalomalacia in the right parietaloccipital region suggesting sequela of prior vascular traumatic insult. Lesser degree of changes in the left occipital lobe are unchanged. No acute intracranial abnormality. White count 6.0. Hemoglobin 12.9. Platelets 328. ESR 28. Sodium 140. Potassium 4.1. Bicarb 29. BUN 12. Creatinine 0.81. Glucose 78. hCG negative. Urinalysis clean. She is sending today in consultation regarding the chest tube site pain. The sites are well-healed. Unable to appreciate any subcutaneous abnormality. She is currently resting comfortably in bed. Awake and alert in no acute distress. Maintaining O2 saturations in the mid 90s on room air. Afebrile. Hemodynamically stable. She is receiving Dilaudid for pain control. Review of Systems REVIEW OF SYSTEMS: CONSTITUTIONAL: Denies any recent significant weight loss or weight gain. EYES: Denies change in vision. EARS, NOSE, MOUTH, THROAT: Denies headaches, denies sore throat. CARDIOVASCULAR: Positive for chest pain, palpitations or syncopal episodes. RESPIRATORY: Denies shortness of breath, cough, congestion or hemoptysis. GASTROINTESTINAL: Denies change in appetite, denies abdominal pain GENITOURINARY: Denies hematuria, denies infections. MUSKULOSKELETAL: Denies pain, denies swelling. INTEGUMENTARY: Denies rash, denies eczema. NEUROLOGICAL: Denies recent memory loss, no recent seizure activity. PSYCHIATRIC: Denies anxiety, denies depression. HEMATOLOGIC/LYMPHATIC: Denies anemia, denies enlarged lymph nodes. Past Medical History Past Medical History: No Reported History, Asthma, Fibromyalgia, GERD/Reflux, Hypertension, Musculoskeletal Disorder, Neurologic Disorder, Pneumonia, Seizure Disorder Additional Past Medical History / Comment(s): Multiple Sclerosis, angina, migraines, DJD, interstitial cystitis, UTI, PCOS, vit D deficiency, bilateral optic neuritis with visual problems, generalized chronic pain, numbness/tingling bilateral lower legs, tachycardia, c-diff 5-9-16, seizures from MS last one around 2016. ADHD. 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 PCOS. MS History of Any Multi-Drug Resistant Organisms: C-DIFF Date of last positivie culture/infection: 2017 MDRO Source:: stool Past Surgical History: Cholecystectomy, Orthopedic Surgery Additional Past Surgical History / Comment(s): Lt shoulder rotator cuff repair 06/06/14, arthroscopic left knee 2000 & 2002, left shoulder reconstruction Past Anesthesia/Blood Transfusion Reactions: No Reported Reaction Additional Past Anesthesia/Blood Transfusion Reaction / Comment(s): Pt has never recieved blood. Past Psychological History: Anxiety, Bipolar, Depression Smoking Status: Never smoker Past Alcohol Use History: Rare Past Drug Use History: Cocaine, Heroin, Marijuana - Past Family History Mother Family Medical History: No Reported History Additional Family Medical History / Comment(s): mother is healthy. Maternal grandmother had uterine cancer. Maternal grandfather had bladder cancer. Father Family Medical History: Hypertension Additional Family Medical History / Comment(s): Paternal grandfather had an [place]. Medications and Allergies Home Medications Medication Instructions Recorded Confirmed Type FLUoxetine HCL [PROzac] 20 mg PO DAILY 11/23/23 04/25/24 History Albuterol Inhaler [Ventolin Hfa 1 puff INHALATION RT-Q4H PRN 02/28/24 04/25/24 History Inhaler] Baclofen [Lioresal] 10 mg PO BID 02/28/24 04/25/24 History Dextroamphetamine/Amphetamine 30 mg PO DAILY PRN 02/28/24 04/25/24 History [Adderall] Dicyclomine [Bentyl] 20 mg PO TID PRN 02/28/24 04/25/24 History Ipratropium/Albuter 20-100Mcg 1 puff INHALATION RT-DAILY PRN 02/28/24 04/25/24 History [Combivent Respimat 20-100Mcg Inhaler] Loperamide [Imodium] 2 mg PO QID PRN 02/28/24 04/25/24 History Loratadine [Claritin] 10 mg PO DAILY 02/28/24 04/25/24 History Metoprolol Tartrate [Lopressor] 50 mg PO BID-W/MEALS 02/28/24 04/25/24 History Ondansetron Odt [Zofran ODT] 4 mg PO BID PRN 02/28/24 04/25/24 History Pantoprazole [Protonix] 40 mg PO BID 02/28/24 04/25/24 History diazePAM 10 mg PO DAILY 02/28/24 04/25/24 History oxyCODONE-APAP 10-325MG [Percocet 1 tab PO BID PRN 02/28/24 04/25/24 History 10-325 mg] QUEtiapine [SEROquel] 100 mg PO TID 04/25/24 04/26/24 History Allergies Allergy/AdvReac Type Severity Reaction Status Date / Time amoxicillin [Amoxicillin] Allergy Severe Anaphylaxis, Verified 04/25/24 13:24 seizures ciprofloxacin [From Cipro] Allergy Severe Rash/Hives, Verified 04/25/24 13:24 seizures codeine phosphate Allergy Unknown Rash/Hives Verified 04/25/24 13:24 [From Tylenol-Codeine #3] bee venom protein (honey bee) Allergy Anaphylaxis Verified 04/25/24 13:24 cefuroxime axetil Allergy Rash/Hives Verified 04/25/24 13:24 [From Ceftin] gabapentin [From Neurontin] Allergy Swelling Verified 04/25/24 13:24 ketorolac [From Toradol] Allergy Rash/Hives Verified 04/25/24 13:24 latex Allergy Rash/Hives Verified 04/25/24 13:24 NSAIDS (Non-Steroidal Allergy Rash/Hives/Lip Verified 04/25/24 13:24 Anti-Inflamma Swelling sulfamethoxazole Allergy Itching Verified 04/25/24 13:24 [From Bactrim] trimethoprim [From Bactrim] Allergy Itching Verified 04/25/24 13:24 Physical Exam Vitals: Vital Signs Temp Pulse Pulse Resp BP BP Pulse Ox 04/26/24 11:27 85 04/26/24 11:17 88 04/26/24 07:41 82 04/26/24 07:31 78 04/26/24 07:00 98.4 F 84 15 155/100 96 04/26/24 02:00 99.3 F 85 18 133/84 96 04/25/24 20:00 98.5 F 90 17 113/76 94 L 04/25/24 18:12 97.8 F 83 16 125/83 95 04/25/24 18:04 90 16 121/78 04/25/24 17:02 79 16 121/82 04/25/24 15:33 78 16 127/89 96 Intake and Output 04/25/24 04/26/24 04/26/24 22:59 06:59 14:59 Intake Total 118 Balance 118 Intake: Oral 118 Other: Voiding Method Bedside Commode Bedside Commode Toilet Bedside Commode # Voids 1 4 # Bowel Movements 1 Weight 81.647 kg GENERAL EXAM: Alert, 44-year-old female patient, sitting up in bed, on room air, fairly comfortable in no apparent distress. HEAD: Normocephalic. EYES: Normal reaction of pupils, equal size. NOSE: Clear with pink turbinates. THROAT: No erythema or exudates. NECK: No masses, no JVD. CHEST: No chest wall deformity. LUNGS: Equal air entry with no crackles, wheeze, rhonchi or dullness. CVS: S1 and S2 normal with no audible murmur, regular rhythm. ABDOMEN: No hepatosplenomegaly, normal bowel sounds, no guarding or rigidity. SPINE: No scoliosis or deformity SKIN: No rashes CENTRAL NERVOUS SYSTEM: No focal deficits, tone is normal in all 4 extremities. EXTREMITIES: There is no peripheral edema. No clubbing, no cyanosis. Peripheral pulses are intact. Results - Laboratory Findings CBC and BMP: 04/25/24 09:51 04/25/24 09:51 PT/INR, D-dimer PT 10.7 sec (10.0-12.5) 04/25/24 09:51 INR 1.0 (<1.2) 04/25/24 09:51 Abnormal lab findings: Abnormal Labs 04/25/24 04/25/24 04/25/24 09:51 13:41 17:08 ESR 28 H Magnesium 1.5 L Urine Blood Trace H Urine Mucus Rare H - Diagnostic Findings Chest x-ray: image reviewed Assessment and Plan Assessment: Chest wall pain secondary to previous bilateral chest tube insertions back in November 2023 suspect secondary to adhesions Multiple sclerosis with possible flareup with visual changes and paresthesias in her arms History of acute hypoxemic respiratory failure, requiring intubation, mechanical ventilation, tracheostomy tube, PEG tube, bilateral chest tubes, and methicillin-resistant Staph aureus pneumonia. Patient hospitalized between November 22 and Dec 12 2023 History of bilateral empyema, with chest tube placement Recent prior history of tracheostomy and PEG tube placement MRSA empyema and pneumonia History of acute septic shock Morbid obesity Polysubstance abuse History of multiple sclerosis Anxiety/depression History of interstitial cystitis History of chronic pain syndrome History of migraine cephalgia History of seizure disorder History of hypertension Plan: The patient was seen and evaluated Chest x-ray, labs and medications reviewed No interventions for chest tube site adhesions Adequate pain control Currently stable and on room air Increase her activity as tolerated We will continue to follow and make further recommendations based on her clinical status I have personally seen and examined the patient, performed the documentation and the assessment and plan as written. Number of minutes spent on the visit: 20.
[2024-04-26] MEDS: IPRATROPIUM-ALBUTEROL 3 ML NEB INHALATION PRN (15:05)
--- NOTE | 2024-04-26 17:52 | P.PAINCN ---
History of Present Illness - Reason for Consult Consult date: 04/26/24 Pain management - Chief Complaint pain all over - History of Present Illness the patient is a 44-year-old female with a history of multiple sclerosis. She presents to the hospital with chronic pain as well as an acute exacerbation of her eye pain, head pressure, and upper extremity pain as well as left lower extremity leg numbness. The patient reports that none of these symptoms are all new but they are exacerbating her current condition. She reports that her left lower extremity does go numb on and off secondary to her MS. She reports she's been on multiple different medications at home and reports that she is currently taking long-acting oxycodone as well as Percocet. She also reports using Valium. Currently she is being treated with IV steroids for a MS exacerbation and she reports that the current pain medication regimen is not adequate. She has been on Suboxone in the past secondary to a long hospitalization requiring long and high doses of opiates according to her. Review of Systems Eyes: bilateral blurred vision, bilateral decreased vision Ears, nose, mouth and throat: Reports sinus pain, Reports sinus pressure Cardiovascular: Denies as per HPI, Denies chest pain, Denies claudication, Denies decreased exercise tolerance, Denies dyspnea on exertion, Denies edema, Denies high blood pressure, Denies irregular heart beat, Denies leg edema, Denies lightheadedness, Denies orthopnea, Denies palpitations, Denies paroxysmal nocturnal dyspnea, Denies phlebitis, Denies rapid heart beat, Denies shortness of breath, Denies syncope Respiratory: Denies dyspnea, Denies pain on inspiration Musculoskeletal: Reports arm numbness/tingling, Reports frequent falls, Reports leg numbness/tingling, Reports limitation of motion, Reports low back pain, Reports myalgias, Reports neck pain, Reports shooting arm pain, Reports shooting leg pain, Denies redness of joints Past Medical History Past Medical History: No Reported History, Asthma, Fibromyalgia, GERD/Reflux, Hypertension, Musculoskeletal Disorder, Neurologic Disorder, Pneumonia, Seizure Disorder Additional Past Medical History / Comment(s): Multiple Sclerosis, angina, migraines, DJD, interstitial cystitis, UTI, PCOS, vit D deficiency, bilateral optic neuritis with visual problems, generalized chronic pain, numbness/tingling bilateral lower legs, tachycardia, c-diff 5-9-16, seizures from MS last one around 2016. ADHD. 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 PCOS. MS History of Any Multi-Drug Resistant Organisms: C-DIFF Year Discovered:: 2017 MDRO Source:: stool Past Surgical History: Cholecystectomy, Orthopedic Surgery Additional Past Surgical History / Comment(s): Lt shoulder rotator cuff repair 06/06/14, arthroscopic left knee 2000 & 2002, left shoulder reconstruction Past Anesthesia/Blood Transfusion Reactions: No Reported Reaction Additional Past Anesthesia/Blood Transfusion Reaction / Comm: Pt has never recieved blood. Past Psychological History: Anxiety, Bipolar, Depression Smoking Status: Never smoker Past Alcohol Use History: Rare Past Drug Use History: Cocaine, Heroin, Marijuana - Past Family History Mother Family Medical History: No Reported History Additional Family Medical History / Comment(s): mother is healthy. Maternal grandmother had uterine cancer. Maternal grandfather had bladder cancer. Father Family Medical History: Hypertension Additional Family Medical History / Comment(s): Paternal grandfather had an ME. Medications and Allergies Home Medications Medication Instructions Recorded Confirmed Type FLUoxetine HCL [PROzac] 20 mg PO DAILY 11/23/23 04/25/24 History Albuterol Inhaler [Ventolin Hfa 1 puff INHALATION RT-Q4H PRN 02/28/24 04/25/24 History Inhaler] Baclofen [Lioresal] 10 mg PO BID 02/28/24 04/25/24 History Dextroamphetamine/Amphetamine 30 mg PO DAILY PRN 02/28/24 04/25/24 History [Adderall] Dicyclomine [Bentyl] 20 mg PO TID PRN 02/28/24 04/25/24 History Ipratropium/Albuter 20-100Mcg 1 puff INHALATION RT-DAILY PRN 02/28/24 04/25/24 History [Combivent Respimat 20-100Mcg Inhaler] Loperamide [Imodium] 2 mg PO QID PRN 02/28/24 04/25/24 History Loratadine [Claritin] 10 mg PO DAILY 02/28/24 04/25/24 History Metoprolol Tartrate [Lopressor] 50 mg PO BID-W/MEALS 02/28/24 04/25/24 History Ondansetron Odt [Zofran ODT] 4 mg PO BID PRN 02/28/24 04/25/24 History Pantoprazole [Protonix] 40 mg PO BID 02/28/24 04/25/24 History diazePAM 10 mg PO DAILY 02/28/24 04/25/24 History oxyCODONE-APAP 10-325MG [Percocet 1 tab PO BID PRN 02/28/24 04/25/24 History 10-325 mg] QUEtiapine [SEROquel] 100 mg PO TID 04/25/24 04/26/24 History Allergies Allergy/AdvReac Type Severity Reaction Status Date / Time amoxicillin [Amoxicillin] Allergy Severe Anaphylaxis, Verified 04/25/24 13:24 seizures ciprofloxacin [From Cipro] Allergy Severe Rash/Hives, Verified 04/25/24 13:24 seizures codeine phosphate Allergy Unknown Rash/Hives Verified 04/25/24 13:24 [From Tylenol-Codeine #3] bee venom protein (honey bee) Allergy Anaphylaxis Verified 04/25/24 13:24 cefuroxime axetil Allergy Rash/Hives Verified 04/25/24 13:24 [From Ceftin] gabapentin [From Neurontin] Allergy Swelling Verified 04/25/24 13:24 ketorolac [From Toradol] Allergy Rash/Hives Verified 04/25/24 13:24 latex Allergy Rash/Hives Verified 04/25/24 13:24 NSAIDS (Non-Steroidal Allergy Rash/Hives/Lip Verified 04/25/24 13:24 Anti-Inflamma Swelling sulfamethoxazole Allergy Itching Verified 04/25/24 13:24 [From Bactrim] trimethoprim [From Bactrim] Allergy Itching Verified 04/25/24 13:24 Physical Exam Vitals: Vital Signs Temp Pulse Pulse Resp BP BP Pulse Ox 04/26/24 15:19 82 04/26/24 15:05 79 04/26/24 15:00 98.5 F 89 16 136/82 96 04/26/24 11:27 85 04/26/24 11:17 88 04/26/24 07:41 82 04/26/24 07:31 78 04/26/24 07:00 98.4 F 84 15 155/100 96 04/26/24 02:00 99.3 F 85 18 133/84 96 04/25/24 20:00 98.5 F 90 17 113/76 94 L 04/25/24 18:12 97.8 F 83 16 125/83 95 04/25/24 18:04 90 16 121/78 Intake and Output 04/26/24 04/26/24 04/26/24 06:59 14:59 22:59 Intake Total 236 Balance 236 Intake: Oral 236 Other: Voiding Method Bedside Commode Toilet Bedside Commode # Voids 4 5 - Constitutional General appearance: no severe distress - EENT Eyes: EOMI, PERRLA, no photophobia, poor dentition - Cardiovascular Rhythm: regular - Musculoskeletal the patient reports she is unable to raise her arms above 90 secondary to pain in her upper extremities. Her cervical spine range of motion is normal. Lhermitte sign is negative. There are no nuchal rigidity signs. Results CBC & Chem 7: 04/25/24 09:51 04/25/24 09:51 Labs: Abnormal Lab Results - Last 24 Hours (Table) 04/25/24 Range/Units 13:41 ESR 28 H (0-20) mm/Hr Assessment and Plan Assessment: #1 chronic pain #2 multiple sclerosis #3 obesity #4 history of opioid use disorder Plan: at this point I discussed with the patient that the use of opioids for multiple sclerosis is not an appropriate long-term plan. She has been seeing a neurologist who has a physician's dental assistant instructor who is prescribing her opioid medications according to her. She reports she really does not see the neurologist any more and only saw him on the initial visit. At this point, I would hope that neurology would have an idea if this is truly an exacerbation of her multiple sclerosis symptoms and dental assistant instructor further treatment of the actual underlying problem. As far as opioid pain medications I recommend that she currently be placed on oxycodone 10 mg every 6 hours as needed. I would discontinue IV pain medications. I would recommend she return to her pain clinic upon discharge. She should not be prescribed any medications to go home with from the hospital. Time with Patient: Greater than 30 PQRS Measure Charge Sheet - Pain Location Head Non-Pharmacological Interventions: Reduce Environmental Stimuli Pharmacological Interventions: Discuss Pain Med Options Lower Back Non-Pharmacological Interventions: Position/Reposition, Reduce Environmental Stimuli Pharmacological Interventions: Discuss Pain Med Options, PRN Medication PQRS Narrative: Smoking Status Current every day smoker Narcotic Agreement Date Signed 08/26/12 Blood Pressure [Left Arm] 136/82 Blood Pressure 121/78 Pain Intensity [Lower Back] 8 Pain Intensity [Head] 2 Pain Intensity 8 Pain Scale Used Numeric (1 - 10) Scale Used Numeric (1 - 10) Home Medications: Ambulatory Orders FLUoxetine HCL [PROzac] 20 mg PO DAILY 11/23/23 Albuterol Inhaler [Ventolin Hfa Inhaler] 1 puff INHALATION RT-Q4H PRN 02/28/24 Baclofen [Lioresal] 10 mg PO BID 02/28/24 Dextroamphetamine/Amphetamine [Adderall] 30 mg PO DAILY PRN 02/28/24 Dicyclomine [Bentyl] 20 mg PO TID PRN 02/28/24 Ipratropium/Albuter 20-100Mcg [Combivent Respimat 20-100Mcg Inhaler] 1 puff INHALATION RT-DAILY PRN 02/28/24 Loperamide [Imodium] 2 mg PO QID PRN 02/28/24 Loratadine [Claritin] 10 mg PO DAILY 02/28/24 Metoprolol Tartrate [Lopressor] 50 mg PO BID-W/MEALS 02/28/24 Ondansetron Odt [Zofran ODT] 4 mg PO BID PRN 02/28/24 Pantoprazole [Protonix] 40 mg PO BID 02/28/24 diazePAM 10 mg PO DAILY 02/28/24 oxyCODONE-APAP 10-325MG [Percocet 10-325 mg] 1 tab PO BID PRN 02/28/24 QUEtiapine [SEROquel] 100 mg PO TID 04/25/24
--- NOTE | 2024-04-26 21:23 | P.PN ---
Progress Note - Text Progress Note Date: 04/26/24 Chief Complaint: Headache blurry vision This is a 44-year-old patient, follows with PCP Dr. Cheo Sanchez. Medical history to include asthma, fibromyalgia, GERD, essential hypertension, seizure disorder, MS, migraines, interstitial cystitis, polycystic ovarian syndrome, vitamin D deficiency, bilateral optic neuritis, generalized chronic pain, ADHD. Bipolar. Patient follows with neurologist , neurologist for her multiple sclerosis. She has gone through disease modifying drugs. Last that she took a dose ofmarenclad which is taken once a year for 2 years. Due to taking this year. Patient now presents with severe pressure behind both the eyes. Blurry vision. She has left-sided weakness does use a walker. More so weak on the left side. No change in bowel pattern. Has urinary urgency. She feels her back is on fire. There is numbness from the left knee down to the left foot. No fever no chills. Rather protracted course in the hospital in December of this year. Patient was intubated to mechanical ventilator. Had a tracheostomy tube. Bilateral pneumonia with bilateral pneumothoraces. Bilateral empyema. Requiring chest tubes. Including secondary cavitation and complications. Septic shock. History of incarcerated and [facility] [place] [facility] and polysubstance abuse. Interstitial cystitis also had been had a PEG tube. [facility] April 26: Sitting up. Slight improvement in her symptoms. Day 2 of IV methylprednisolone. Patient requested pulmonary and pain management consultation. Other medication treatment plan to continue. Patient requesting for IV pain Dilaudid till she gets discharged. I did review the downside of giving it excessively if not required. Active Medications Acetaminophen (Acetaminophen Tab 325 Mg Tab) 650 mg PO Q6HR PRN PRN Reason: Mild Pain or Fever > 100.5 Albuterol Sulfate (Albuterol Nebulized 2.5 Mg/3 Ml) 2.5 mg INHALATION RT-Q4H PRN PRN Reason: Shortness Of Breath Last Admin: 04/26/24 19:40 Dose: 2.5 mg Albuterol/Ipratropium (Ipratropium-Albuterol 3 Ml Neb) 3 ml INHALATION RT-DAILY PRN PRN Reason: Shortness Of Breath Last Admin: 04/26/24 15:05 Dose: 3 ml Baclofen (Baclofen 10 Mg Tab) 10 mg PO BID [facility] Last Admin: 04/26/24 08:18 Dose: 10 mg Diazepam (Diazepam 5 Mg Tab) 10 mg PO DAILY [facility] Last Admin: 04/26/24 08:18 Dose: 10 mg Dicyclomine HCl (Dicyclomine 20 Mg Tab) 20 mg PO TID PRN PRN Reason: cramps Last Admin: 04/26/24 09:33 Dose: 20 mg Fluoxetine HCl (Fluoxetine Hcl 20 Mg Cap) 20 mg PO DAILY [facility] Last Admin: 04/26/24 08:18 Dose: 20 mg Hydromorphone HCl (Hydromorphone 0.5 Mg/0.5 Ml Syringe) 0.5 mg IVP Q3HR PRN PRN Reason: Moderate Pain (Scale 4 to 6) Last Admin: 04/26/24 20:36 Dose: 0.5 mg Hydromorphone HCl (Hydromorphone 1 Mg/Ml 1 Ml Syringe) 1 mg IVP Q3HR PRN PRN Reason: Severe Pain (Scale 7 to 10) Last Admin: 04/26/24 18:52 Dose: 1 mg Methylprednisolone Sodium Succinate 1,000 mg/ Sodium Chloride 250 mls @ 250 mls/hr IVPB DAILY [facility] Last Admin: 04/26/24 09:33 Dose: 250 mls/hr Loperamide HCl (Loperamide 2 Mg Cap) 2 mg PO QID PRN PRN Reason: Diarrhea Loratadine (Loratadine 10 Mg Tab) 10 mg PO DAILY [facility] Last Admin: 04/26/24 08:18 Dose: 10 mg Metoprolol Tartrate (Metoprolol Tartrate 50 Mg Tab) 50 mg PO BID-W/MEALS [facility] Last Admin: 04/26/24 18:14 Dose: 50 mg Naloxone HCl (Naloxone 0.4 Mg/Ml 1 Ml Vial) 0.2 mg IV Q2M PRN PRN Reason: Opioid Reversal Non-Formulary Medication (Dextroamphetamine/Amphetamine [Adderall]) 30 mg PO DAILY PRN PRN Reason: Fatigue Ondansetron HCl (Ondansetron 4 Mg/2 Ml Vial) 4 mg IVP Q8HR PRN PRN Reason: Nausea And Vomiting Last Admin: 04/26/24 20:15 Dose: 4 mg Ondansetron HCl (Ondansetron Odt 4 Mg Tab) 4 mg PO BID PRN PRN Reason: Nausea Oxycodone/Acetaminophen (Oxycodone-Apap 10-325mg 1 Each Tab) 1 each PO BID PRN PRN Reason: Pain Last Admin: 04/26/24 18:11 Dose: 1 each Pantoprazole Sodium (Pantoprazole 40 Mg Tablet) 40 mg PO AC-BRKFST [facility] Last Admin: 04/26/24 05:30 Dose: 40 mg Quetiapine Fumarate (Quetiapine 100 Mg Tab) 100 mg PO TID [facility] Last Admin: 04/26/24 15:30 Dose: 100 mg Sumatriptan Succinate (Sumatriptan Succinate 50 Mg Tab) 100 mg PO HS PRN PRN Reason: migraines Last Admin: 04/25/24 21:45 Dose: 100 mg Social history: Stopped in 2017. Lives with her and 16-year-old daughter. Past history of cocaine inhaling heroin marijuana pain pills. Physical examination: VITAL SIGNS: 98.5, 89, 16, 136 per 82, 96% room air GENERAL: [BMI 29.1, reclining bed awake comfortable EYES: Pupils equal. Conjunctiva ilan l. HEENT: External appearance of nose and ears normal, oral cavity grossly normal. NECK: JVD not raised; masses not palpable. HEART: First and second heart sounds are normal; no edema. LUNGS: Respiratory rate normal; air entry. ABDOMEN: Soft, nontender, liver spleen not palpable, no masses palpable. PSYCH: Alert and oriented x3; mood and chest l. MUSCULOSKELETAL:No Clubbing/cyanosis;muscles-grossly intact NEUROLOGICAL: [Cranial nerves grossly intact; no facial asymmetry, power and sensation grossly intact weakness in the left arm. Power 4/5. Weakness in the left leg. 2-3/5 decree sensation. INVESTIGATIONS, reviewed in the clinical context: April 25: White count 6 hemoglobin 12.9 platelets 328 sodium 140 potassium 4.1 BUN 12 creatinine 0.81 Troponin I x 3 less than 0.012 EKG tracing personally reviewed by me-normal sinus rhythm Chest x-ray film personally reviewed by me-a bit underpenetrated. Borderline cardiomegaly. No obvious infiltrate CT brain without contrast: Encephalomalacia right parietal occipital region suggesting sequela of prior vascular traumatic insult. Lesser degree of changes to left occipital lobe. Assessment plan: -Acute on chronic flareup of multiple sclerosis. Patient now presenting with pressure behind both the eyes some blurriness. Has weakness on the left side. Increased weakness left lower extremity with numbness from below the knee down to the ankle. IV Solu-Medrol 1000 mg IV day 2. Neurology following Patient follows with his neurologist . Currently on medication calledMarvenclad-took 1 dose last year -Chronic fibromyalgia -GERD Protonix -COPD no prior smoker Combivent as needed -Essential hypertension Lopressor 50 mg twice daily -Bipolar Valium. Prozac. Seroquel -Chronic pain syndrome On Percocet at home. Currently getting Dilaudid Patient seen by pain service with Dr. Azar. Patient not to be discharged on any additional pain medications from here. -Chronic gait dysfunction uses a walker at baseline -Full code Patient seen by above from pain management services and Dr. Drake from pulmonary. Consultation noted. Follow with pulmonary. Increase activity. Including up in chair - Past Medical History Past Medical History: No Reported History, Asthma, Fibromyalgia, GERD/Reflux, Hypertension, Musculoskeletal Disorder, Neurologic Disorder, Pneumonia, Seizure Disorder Additional Past Medical History / Comment(s): Multiple Sclerosis, angina, migraines, DJD, interstitial cystitis, UTI, PCOS, vit D deficiency, bilateral optic neuritis with visual problems, generalized chronic pain, numbness/tingling bilateral lower legs, tachycardia, c-diff 5-9-16, seizures from MS last one around 2016. ADHD. 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 PCOS. MS History of Any Multi-Drug Resistant Organisms: C-DIFF Date of last positivie culture/infection: 2016 MDRO Source:: stool Past Surgical History: Cholecystectomy, Orthopedic Surgery Additional Past Surgical History / Comment(s): Lt shoulder rotator cuff repair 06/06/14, arthroscopic left knee 2000 & 2002, left shoulder reconstruction Past Anesthesia/Blood Transfusion Reactions: No Reported Reaction Additional Past Anesthesia/Blood Transfusion Reaction / Comment(s): Pt has never recieved blood. Past Psychological History: Anxiety, Bipolar, Depression Smoking Status: Never smoker Past Alcohol Use History: Rare Past Drug Use History: Cocaine, Heroin, Marijuana
[2024-04-27 01:59] VITALS: RESP 17
[2024-04-27 08:10] VITALS: BP 126/79; TEMP 98.6
[2024-04-27 09:00] VITALS: PULSE 83
--- NOTE | 2024-04-27 12:52 | P.PN ---
Subjective Progress Note Date: 04/27/24 This is a 44-year-old female patient with a known history of multiple sclerosis, fibromyalgia, hypertension, seizure disorder, respiratory failure requiring intubation mechanical ventilatory support with subsequent tracheostomy and PEG tube placements in November and December 2023. Bilateral empyema with chest tube placement subsequent removal. Also admitted for a small left sided pneumothorax February 2024 that did not require chest tube insertion. She presented here on April 25, 2024 with complaints of a possible multiple sclerosis flareup, chest pain, and pain at the old chest tube sites. X-ray reveals no acute pulmonary process. CT scan of the brain redemonstrated encephalomalacia in the right parietaloccipital region suggesting sequela of prior vascular traumatic insult. Lesser degree of changes in the left occipital lobe are unchanged. No acute intracranial abnormality. White count 6.0. Hemoglobin 12.9. Platelets 328. ESR 28. Sodium 140. Potassium 4.1. Bicarb 29. BUN 12. Creatinine 0.81. Glucose 78. hCG negative. Urinalysis clean. She is sending today in consultation regarding the chest tube site pain. The sites are well-healed. Unable to appreciate any subcutaneous abnormality. She is currently resting comfortably in bed. Awake and alert in no acute distress. Maintaining O2 saturations in the mid 90s on room air. Afebrile. Hemodynamically stable. She is receiving Dilaudid for pain control. The patient is seen today April 27, 2024 in follow-up on the regular medical floor. She is currently sitting up in bed. Awake and alert in no acute distress. She is maintaining good O2 saturations in the 90s on room air. She still has some discomfort at the previous chest tube sites but realizes these are scar tissue and they should subside over time. No intervention is available. Will assure adequate pain control. Objective - Vital Signs Vital signs: Vital Signs Temp 98.6 F 04/27/24 08:00 Pulse 83 04/27/24 08:36 Resp 17 04/27/24 08:00 BP 126/79 04/27/24 08:00 Pulse Ox 96 04/27/24 08:00 FiO2 Intake & Output 04/26/24 04/27/24 04/27/24 18:59 06:59 18:59 Intake Total 236 Balance 236 Intake: Oral 236 Other: Voiding Method Toilet Bedside Commode # Voids 5 2 - Exam GENERAL EXAM: Alert, pleasant 44-year-old female patient, on room air, comfortable in no apparent distress. HEAD: Normocephalic. EYES: Normal reaction of pupils, equal size. NOSE: Clear with pink turbinates. THROAT: No erythema or exudates. NECK: No masses, no JVD. CHEST: No chest wall deformity. LUNGS: Equal air entry with no crackles, wheeze, rhonchi or dullness. CVS: S1 and S2 normal with no audible murmur, regular rhythm. ABDOMEN: No hepatosplenomegaly, normal bowel sounds, no guarding or rigidity. SPINE: No scoliosis or deformity SKIN: No rashes CENTRAL NERVOUS SYSTEM: No focal deficits, tone is normal in all 4 extremities. EXTREMITIES: There is no peripheral edema. No clubbing, no cyanosis. Peripheral pulses are intact. - Labs CBC & Chem 7: 04/25/24 09:51 04/25/24 09:51 Assessment and Plan Assessment: Chest wall pain secondary to previous bilateral chest tube insertions back in November 2023 suspect secondary to adhesions Multiple sclerosis with possible flareup with visual changes and paresthesias in her arms History of acute hypoxemic respiratory failure, requiring intubation, mechanical ventilation, tracheostomy tube, PEG tube, bilateral chest tubes, and methicillin-resistant Staph aureus pneumonia. Patient hospitalized between November 22 and Dec 12 2023 History of bilateral empyema, with chest tube placement Recent prior history of tracheostomy and PEG tube placement MRSA empyema and pneumonia History of acute septic shock Morbid obesity Polysubstance abuse History of multiple sclerosis Anxiety/depression History of interstitial cystitis History of chronic pain syndrome History of migraine cephalgia History of seizure disorder History of hypertension Plan: The patient was seen and evaluated Medications reviewed No interventions for chest tube site adhesions Adequate pain control Currently stable and on room air I have personally seen and examined the patient, performed the documentation and the assessment and plan as written. Number of minutes spent on the visit: 10.
--- NOTE | 2024-04-27 22:53 | P.DS ---
Providers Date of admission: 04/25/24 20:51 Expected date of discharge: 04/27/24 Attending physician: Mark Lloyd Consults: 04/25/24 14:03 Consult Physician Urgent Consulting Provider: Esther Mayo Consult Reason/Comments: Optic neuritis/MS exacerbation Do you want consulting provider notified?: Yes 04/26/24 14:04 Consult Physician Routine Consulting Provider: Cheo Drake Consult Reason/Comments: Discomfort at healed chest tube sites Do you want consulting provider notified?: Yes Primary care physician: [facility] Course: Chief Complaint: Headache blurry vision This is a 44-year-old patient, follows with PCP Dr. Cheo Sanchez. Medical history to include asthma, fibromyalgia, GERD, essential hypertension, seizure disorder, MS, migraines, interstitial cystitis, polycystic ovarian syndrome, vitamin D deficiency, bilateral optic neuritis, generalized chronic pain, ADHD. Bipolar. Patient follows with neurologist , neurologist for her multiple sclerosis. She has gone through disease modifying drugs. Last that she took a dose ofmarenclad which is taken once a year for 2 years. Due to taking this year. Patient now presents with severe pressure behind both the eyes. Blurry vision. She has left-sided weakness does use a walker. More so weak on the left side. No change in bowel pattern. Has urinary urgency. She feels her back is on fire. There is numbness from the left knee down to the left foot. No fever no chills. Rather protracted course in the hospital in December of this year. Patient was intubated to mechanical ventilator. Had a tracheostomy tube. Bilateral pneumonia with bilateral pneumothoraces. Bilateral empyema. Requiring chest tubes. Including secondary cavitation and complications. Septic shock. History of incarcerated and local senior living and polysubstance abuse. Interstitial cystitis also had been had a PEG tube. Patient then [facility]. April 26: Sitting up. Slight improvement in her symptoms. Day 2 of IV methylprednisolone. Patient requested pulmonary and pain management consultation. Other medication treatment plan to continue. Patient requesting for IV pain Dilaudid till she gets discharged. I did review the downside of giving it excessively if not required. April 27: Seen by the pain management service. They wanted IV Dilaudid to be discontinued. Which was done. Patient unhappy about the same. Explained that this is what she wanted and that the specialist for pain management. Encouraged the patient to increase activity. Up in a chair. Later the nurse called to say patient leaving AMA Social history: Stopped in 2017. Lives with her and 16-year-old daughter. Past history of cocaine inhaling heroin marijuana pain pills. Physical examination: VITAL SIGNS: 98.6, 90, 17, 126 Skip 79, 96% room air GENERAL: [BMI 29.1, sitting up in bed EYES: Pupils equal. Conjunctiva ilan l. HEENT: External appearance of nose and ears normal, oral cavity grossly normal. NECK: JVD not raised; masses not palpable. HEART: First and second heart sounds are normal; no edema. LUNGS: Respiratory rate normal; air entry. ABDOMEN: Soft, nontender, liver spleen not palpable, no masses palpable. PSYCH: Alert and oriented x3; mood a bit anxious MUSCULOSKELETAL:No Clubbing/cyanosis;muscles-grossly intact NEUROLOGICAL: [Cranial nerves grossly intact; no facial asymmetry, power and sensation grossly intact weakness in the left arm. Power 4/5. Weakness in the left leg. 2-3/5 decree sensation. INVESTIGATIONS, reviewed in the clinical context: April 25: White count 6 hemoglobin 12.9 platelets 328 sodium 140 potassium 4.1 BUN 12 creatinine 0.81 Troponin I x 3 less than 0.012 EKG tracing personally reviewed by me-normal sinus rhythm Chest x-ray film personally reviewed by me-a bit underpenetrated. Borderline cardiomegaly. No obvious infiltrate CT brain without contrast: Encephalomalacia right parietal occipital region suggesting sequela of prior vascular traumatic insult. Lesser degree of changes to left occipital lobe. Assessment plan: -Acute on chronic flareup of multiple sclerosis. Patient now presenting with pressure behind both the eyes some blurriness. Has weakness on the left side. Increased weakness left lower extremity with numbness from below the knee down to the ankle. IV Solu-Medrol 1000 mg IV day 2. Neurology following Patient follows with his neurologist . Currently on medication calledMarvenclad-took 1 dose last year -Chronic fibromyalgia -GERD Protonix -COPD no prior smoker Combivent as needed -Essential hypertension Lopressor 50 mg twice daily -Bipolar Valium. Prozac. Seroquel -Chronic pain syndrome On Percocet at home. Currently getting Dilaudid Patient seen by pain service with Dr. Azar. Patient not to be discharged on any additional pain medications from here. -Chronic gait dysfunction uses a walker at baseline -Full code Patient left AMA - Past Medical History Past Medical History: No Reported History, Asthma, Fibromyalgia, GERD/Reflux, Hypertension, Musculoskeletal Disorder, Neurologic Disorder, Pneumonia, Seizure Disorder Additional Past Medical History / Comment(s): Multiple Sclerosis, angina, m igraines, DJD, interstitial cystitis, UTI, PCOS, vit D deficiency, bilateral optic neuritis with visual problems, generalized chronic pain, numbness/tingling bilateral lower legs, tachycardia, c-diff 5-9-16, seizures from MS last one around 2017. ADHD. 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 PCOS. MS History of Any Multi-Drug Resistant Organisms: C-DIFF Date of last positivie culture/infection: 2016 MDRO Source:: stool Past Surgical History: Cholecystectomy, Orthopedic Surgery Additional Past Surgical History / Comment(s): Lt shoulder rotator cuff repair 06/06/14, arthroscopic left knee 2000 & 2002, left shoulder reconstruction Past Anesthesia/Blood Transfusion Reactions: No Reported Reaction Additional Past Anesthesia/Blood Transfusion Reaction / Comment(s): Pt has never recieved blood. Past Psychological History: Anxiety, Bipolar, Depression Smoking Status: Never smoker Past Alcohol Use History: Rare Past Drug Use History: Cocaine, Heroin, Marijuana Plan - Discharge Summary Discharge Rx Participant: Yes New Discharge Prescriptions: No Action Loperamide [Imodium] 2 mg PO QID PRN PRN Reason: Diarrhea oxyCODONE-APAP 10-325MG [Percocet 10-325 mg] 1 tab PO BID PRN PRN Reason: Pain Baclofen [Lioresal] 10 mg PO BID Ondansetron Odt [Zofran ODT] 4 mg PO BID PRN PRN Reason: Nausea Ipratropium/Albuter 20-100Mcg [Combivent Respimat 20-100Mcg Inhaler] 1 puff INHALATION RT-DAILY PRN PRN Reason: Shortness Of Breath Albuterol Inhaler [Ventolin Hfa Inhaler] 1 puff INHALATION RT-Q4H PRN PRN Reason: Shortness Of Breath FLUoxetine HCL [PROzac] 20 mg PO DAILY Pantoprazole [Protonix] 40 mg PO BID Loratadine [Claritin] 10 mg PO DAILY Metoprolol Tartrate [Lopressor] 50 mg PO BID-W/MEALS Dicyclomine [Bentyl] 20 mg PO TID PRN PRN Reason: cramps Dextroamphetamine/Amphetamine [Adderall] 30 mg PO DAILY PRN PRN Reason: Fatigue diazePAM 10 mg PO DAILY QUEtiapine [SEROquel] 100 mg PO TID Discharge Medication List FLUoxetine HCL [PROzac] 20 mg PO DAILY 11/23/23 [History] Albuterol Inhaler [Ventolin Hfa Inhaler] 1 puff INHALATION RT-Q4H PRN 02/28/24 [History] Baclofen [Lioresal] 10 mg PO BID 02/28/24 [History] Dextroamphetamine/Amphetamine [Adderall] 30 mg PO DAILY PRN 02/28/24 [History] Dicyclomine [Bentyl] 20 mg PO TID PRN 02/28/24 [History] Ipratropium/Albuter 20-100Mcg [Combivent Respimat 20-100Mcg Inhaler] 1 puff INHALATION RT-DAILY PRN 02/28/24 [History] Loperamide [Imodium] 2 mg PO QID PRN 02/28/24 [History] Loratadine [Claritin] 10 mg PO DAILY 02/28/24 [History] Metoprolol Tartrate [Lopressor] 50 mg PO BID-W/MEALS 02/28/24 [History] Ondansetron Odt [Zofran ODT] 4 mg PO BID PRN 02/28/24 [History] Pantoprazole [Protonix] 40 mg PO BID 02/28/24 [History] diazePAM 10 mg PO DAILY 02/28/24 [History] oxyCODONE-APAP 10-325MG [Percocet 10-325 mg] 1 tab PO BID PRN 02/28/24 [History] QUEtiapine [SEROquel] 100 mg PO TID 04/25/24 [History] Follow up Appointment(s)/Referral(s): Latha Abdi FNPBC [REFERRING] - 1-2 days Discharge Disposition: LEFT AGAINST MEDICAL ADVICE
--- NOTE | 2024-05-01 15:07 | P.CNNES ---
History of Present Illness Consult date: 04/26/24 Requesting physician: Maday Quinn Reason for Consult: Optic neuritis/MS exacerbation History of Present Illness: Patient is a 44-year-old female with long-standing history of multiple sclerosis, well known to our neurology service for frequent admissions for possible MS exacerbations. Patient states that she came to the hospital but she was feeling as if "brain was feeling hot, like on fire", stabbing pain in cer tain areas of the head, pressure behind the eyeballs and she went partially blind for the last 2 days. Patient denied any new numbness or tingling or weakness of the extremities or incoordination. Patient states that she started Mavenclad and the first dose was received in May 2023. Her second dose is due in May 2024. She follows up with Dr. Soria. Patient has previously tried Tecfidera, but developed significant side effects. She received Ocrevus 1 dose, but developed significant reaction, as her lips swell up and developed hives. She was off disease modifying agents for a year. She had previously tried Avonex, Copaxone, Gilenya, as well. Her last JCV titers were positive at 3.68 on 08/31/2018. She started Vumerity in the middle of April, but she developed GI side effects. She was recommended to take one tablet in the morning 2 at night instead of 2 tablets twice a day. She still had some symptoms, therefore she stopped taking Vumerity in September 2022. Patient denies any tobacco use. Current medications were reviewed per Review of Systems All pertinent positive and negatives mentioned in HPI. Patient does have weakness, numbness. Past Medical History Past Medical History: No Reported History, Asthma, Fibromyalgia, GERD/Reflux, Hypertension, Musculoskeletal Disorder, Neurologic Disorder, Pneumonia, Seizure Disorder Additional Past Medical History / Comment(s): Multiple Sclerosis, angina, migraines, DJD, interstitial cystitis, UTI, PCOS, vit D deficiency, bilateral optic neuritis with visual problems, generalized chronic pain, numbness/tingling bilateral lower legs, tachycardia, c-diff 5-9-16, seizures from MS last one around 2016. ADHD. 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 PCOS. MS History of Any Multi-Drug Resistant Organisms: C-DIFF Date of last positivie culture/infection: 2017 MDRO Source:: stool Past Surgical History: Cholecystectomy, Orthopedic Surgery Additional Past Surgical History / Comment(s): Lt shoulder rotator cuff repair 06/06/14, arthroscopic left knee 2000 & 2002, left shoulder reconstruction Past Anesthesia/Blood Transfusion Reactions: No Reported Reaction Additional Past Anesthesia/Blood Transfusion Reaction / Comment(s): Pt has never recieved blood. Past Psychological History: Anxiety, Bipolar, Depression Smoking Status: Never smoker Past Alcohol Use History: Rare Past Drug Use History: Cocaine, Heroin, Marijuana - Past Family History Mother Family Medical History: No Reported History Additional Family Medical History / Comment(s): mother is healthy. Maternal grandmother had uterine cancer. Maternal grandfather had bladder cancer. Father Family Medical History: Hypertension Additional Family Medical History / Comment(s): Paternal grandfather had an SC. Medications and Allergies Home Medications Medication Instructions Recorded Confirmed Type FLUoxetine HCL [PROzac] 20 mg PO DAILY 11/23/23 04/25/24 History Albuterol Inhaler [Ventolin Hfa 1 puff INHALATION RT-Q4H PRN 02/28/24 04/25/24 History Inhaler] Baclofen [Lioresal] 10 mg PO BID 02/28/24 04/25/24 History Dextroamphetamine/Amphetamine 30 mg PO DAILY PRN 02/28/24 04/25/24 History [Adderall] Dicyclomine [Bentyl] 20 mg PO TID PRN 02/28/24 04/25/24 History Ipratropium/Albuter 20-100Mcg 1 puff INHALATION RT-DAILY PRN 02/28/24 04/25/24 History [Combivent Respimat 20-100Mcg Inhaler] Loperamide [Imodium] 2 mg PO QID PRN 02/28/24 04/25/24 History Loratadine [Claritin] 10 mg PO DAILY 02/28/24 04/25/24 History Metoprolol Tartrate [Lopressor] 50 mg PO BID-W/MEALS 02/28/24 04/25/24 History Ondansetron Odt [Zofran ODT] 4 mg PO BID PRN 02/28/24 04/25/24 History Pantoprazole [Protonix] 40 mg PO BID 02/28/24 04/25/24 History diazePAM 10 mg PO DAILY 02/28/24 04/25/24 History oxyCODONE-APAP 10-325MG [Percocet 1 tab PO BID PRN 02/28/24 04/25/24 History 10-325 mg] QUEtiapine [SEROquel] 100 mg PO TID 04/25/24 04/26/24 History Allergies Allergy/AdvReac Type Severity Reaction Status Date / Time amoxicillin [Amoxicillin] Allergy Severe Anaphylaxis, Verified 04/25/24 13:24 seizures ciprofloxacin [From Cipro] Allergy Severe Rash/Hives, Verified 04/25/24 13:24 seizures codeine phosphate Allergy Unknown Rash/Hives Verified 04/25/24 13:24 [From Tylenol-Codeine #3] bee venom protein (honey bee) Allergy Anaphylaxis Verified 04/25/24 13:24 cefuroxime axetil Allergy Rash/Hives Verified 04/25/24 13:24 [From Ceftin] gabapentin [From Neurontin] Allergy Swelling Verified 04/25/24 13:24 ketorolac [From Toradol] Allergy Rash/Hives Verified 04/25/24 13:24 latex Allergy Rash/Hives Verified 04/25/24 13:24 NSAIDS (Non-Steroidal Allergy Rash/Hives/Lip Verified 04/25/24 13:24 Anti-Inflamma Swelling sulfamethoxazole Allergy Itching Verified 04/25/24 13:24 [From Bactrim] trimethoprim [From Bactrim] Allergy Itching Verified 04/25/24 13:24 Physical Examination - Vital Signs Vital Signs: Vital Signs Temp Pulse Pulse Resp BP Pulse Ox 04/26/24 19:49 82 04/26/24 19:40 85 04/26/24 19:18 97.8 F 76 18 123/76 96 04/26/24 18:15 85 15 116/79 95 04/26/24 15:19 82 04/26/24 15:05 79 04/26/24 15:00 98.5 F 89 16 136/82 96 04/26/24 11:27 85 04/26/24 11:17 88 04/26/24 07:41 82 04/26/24 07:31 78 04/26/24 07:00 98.4 F 84 15 155/100 96 04/26/24 02:00 99.3 F 85 18 133/84 96 Intake and Output 0904/26/24 04/26/24 06:59 14:59 22:59 Intake Total 236 Balance 236 Intake: Oral 236 Other: Voiding Method Bedside Commode Toilet Bedside Commode # Voids 4 5 Patient is a middle aged female, in no acute distress. Patient is alert awake oriented to time place and person. Speech and language functions are normal. Patient can name and repeat very well. No aphasia or dys arthria. Attention, concentration and fund of knowledge is adequate. On cranial nerve examination, pupils are equal, round and reacting to light, visual pacheco reveals some decreased vision in the left lower quadrant, (although previously on 12/01/2022, she had visual field deficit on the right s rabia homonymous type). Extraocular muscles are intact with no nystagmus. Face is symmetric, tongue protrudes to the midline. Palatal elevation and sensation normal, hearing and shoulder shrug normal, facial sensation normal. On muscle strength testing, there is no pronator drift. 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 Deep tendon reflexes are symmetric, hypoactive, trace and plantars downgoing. Sensory to touch patient is decreased in the left arm and left side of the face as compared to the right side, but is equal in the lower limbs. Cerebellar function: Patient was slow for [id number] and heel to hanson testing with the right sided extremities but normal on the left. Tone and bulk of muscles normal. Gait deferred.. On general examination, there is no carotid bruit or murmur, S1-S2 audible. Chest is clear on consultation. Abdomen is soft nontender. No organomegaly, bowel sounds present. Peripheral pulses are present. No edema. Results - Laboratory Findings CBC and BMP: 04/25/24 09:51 04/25/24 09:51 Abnormal Lab Findings: Abnormal Labs 04/25/24 04/25/24 04/25/24 09:51 13:41 17:08 ESR 28 H Magnesium 1.5 L Urine Blood Trace H Urine Mucus Rare H Assessment and Plan Assessment: * Possible MS exacerbation * Relapsing remitting MS * Obesity * X tobacco use * History of recurrent UTI * History of right occipital neuralgia Plan: * Patient to start Solu-Medrol 1 g IVPB daily for 3-5 days. * MRI of the brain with and without contrast evaluate for MS exacerbation. * Patient is asking for pain medication. We will defer to IM. * Neurology will follow. Thank you for the consult.
== END 2024-04-27 11:46 | disposition left against medical advice (07) | DRG 59 ==
LOC: EC 09:33 → 6NMEDSUR 15:06 → OBSVTOIN 20:51
PROVIDERS: ADMIT Hospitalist; ATTEND Hospitalist
DX: G35 Multiple sclerosis (principal); H46.9 Unspecified optic neuritis; G93.89 Other specified disorders of brain; I10 Essential (primary) hypertension; F31.9 Bipolar disorder, unspecified; G40.909 Epilepsy, unspecified, not intractable, without status epilepticus; E66.01 Morbid (severe) obesity due to excess calories; F41.9 Anxiety disorder, unspecified; G89.4 Chronic pain syndrome; M79.7 Fibromyalgia; F17.200 Nicotine dependence, unspecified, uncomplicated; K21.9 Gastro-esophageal reflux disease without esophagitis; E55.9 Vitamin D deficiency, unspecified; Z79.899 Other long term (current) drug therapy; Z88.5 Allergy status to narcotic agent; Z88.0 Allergy status to penicillin; Z88.2 Allergy status to sulfonamides; Z88.6 Allergy status to analgesic agent; Z91.040 Latex allergy status; Z68.29 Body mass index [BMI] 29.0-29.9, adult
CPT/HCPCS: 36415; 70450; 71046; 80053; 81001; 83735; 84484; 84703; 85025; 85610; 85652; 85730; 86140; 93005; 94640; 96365; 96366; 96375; 96376; 99285

== ENCOUNTER → 2024-05-11 | Outpatient (CLI) | payer MEDICARE, OTHER ==
[2024-05-11 15:16] LABS: Basophils # (A) 0.05 X 10*3/uL (0.00-0.10); Basophils % (A) 0.6 %; Eosinophils # (A) 0.19 X 10*3/uL (0.04-0.35); Eosinophils % (A) 2.3 %; HCT 39.8 % (37.2-46.3); Lymphocytes # (A) 2.11 X 10*3/uL (0.90-5.00); Lymphocytes % (A) 25.9 %; MCH 28.4 pg (27.0-32.0); MCHC 32.7 g/dL (32.0-37.0); MCV 87.1 FL (80.0-97.0); Mean Platelet Volume 9.5 FL (9.5-12.2); Monocytes # (A) 0.68 X 10*3/uL (0.20-1.00); Monocytes % (A) 8.3 %; NRBC Per 100 WBC 0 X 10*3/uL (0.00-0.01); Neutrophils # (A) 5.08 X 10*3/uL (1.80-7.70); Neutrophils % (A) 62.3 %; Platelet Count 283 X 10*3/uL (140-440); RBC 4.57 X 10*6/uL (4.10-5.20); RDW 15.5 % (11.5-14.5); WBC 8.16 X 10*3/uL (4.50-10.00)
[2024-05-11 15:37] LABS: Hepatitis B Surface Antigen Nonreactive (Nonreactive); Hepatitis C IgG Antibody Nonreactive (Nonreactive)
[2024-05-11 16:03] LABS: ALT 10 U/L (8-44); AST 14 U/L (13-35); Albumin 4.1 g/dL (3.8-4.9); Albumin/Globulin Ratio 1.78 Ratio (1.60-3.17); Alkaline Phosphatase 62 U/L (41-126); BUN/Creat Ratio 24.71 Ratio (12.00-20.00); Blood Urea Nitrogen 17.3 mg/dL (9.0-27.0); Calcium 9.2 mg/dL (8.7-10.3); Carbon Dioxide 25.4 mmol/L (21.6-31.8); Chloride 102 mmol/L (96-109); Globulin 2.3 g/dL (1.6-3.3); Glucose 80 mg/dL (70-110); Sodium 139 mmol/L (135-145); Total Bilirubin 0.4 mg/dL (0.3-1.2); Total Protein 6.4 g/dL (6.2-8.2)
[2024-05-11 16:39] LABS: HIV 2 AB Non-Reactive (Non-Reactive); HIV AB P24 Non-Reactive (Non-Reactive); HIV P24 AG Non-Reactive (Non-Reactive)
[2024-05-12 13:23] LABS: T4/T8 Ratio (CD4:CD8) 3.3 (1.0-3.7)
== END | disposition home or self-care (01) ==
LOC: LABWHC1 11:34
PROVIDERS: ATTEND Psychiatry & Neurology Neurology
DX: G35 Multiple sclerosis (principal)
CPT/HCPCS: 36415; 80053; 85025; 86355; 86357; 86359; 86360; 86480; 86704; 86787; 86803; 87340; 87390

== ENCOUNTER 2024-11-06 14:43 | Inpatient (IN) | payer MEDICARE, OTHER ==
--- NOTE | 2024-11-06 15:31 | ED ---
Female Urogenital HPI - General Chief complaint: Recheck/Abnormal Lab/Rx Stated complaint: lower abd pain,ND Time Seen by Provider: 11/06/24 14:56 Source: patient, RN notes reviewed Mode of arrival: ambulatory Limitations: no limitations - History of Present Illness Initial comments: This is a 44-year-old female who presents to the emergency department for urinary symptoms. Patient states that a week ago she developed diarrhea and started taking Imodium which did seem to help. She then started to develop burning with urination and suprapubic discomfort which has since persisted. She tried drinking lots of fluids, but did not get any relief. She has now developed pain in the lower back as well. Last night she developed a lot of cramping in her bilateral upper and lower extremities which lasted for several hours. States that this was very painful and she has never experienced anything like this. Also reports problems with her vision in her right eye and a headache, and states that it feels like another MS exacerbation. - Related Data Home Medications Medication Instructions Recorded Confirmed FLUoxetine HCL [PROzac] 20 mg PO DAILY 11/23/23 11/06/24 Albuterol Inhaler [Ventolin Hfa 2 puff INHALATION RT-QID PRN 02/28/24 11/06/24 Inhaler] Baclofen [Lioresal] 20 mg PO BID 02/28/24 11/06/24 Dextroamphetamine/Amphetamine 30 mg PO BID@0730,1630 02/28/24 11/06/24 [Adderall] Dicyclomine [Bentyl] 20 mg PO TID 02/28/24 11/06/24 Loperamide [Imodium] 2 mg PO QID PRN 02/28/24 11/06/24 Loratadine [Claritin] 10 mg PO DAILY 02/28/24 11/06/24 Metoprolol Tartrate [Lopressor] 50 mg PO DAILY 02/28/24 11/06/24 Ondansetron Odt [Zofran ODT] 4 mg PO BID PRN 02/28/24 11/06/24 Pantoprazole [Protonix] 40 mg PO BID 02/28/24 11/06/24 diazePAM 10 mg PO DAILY PRN 02/28/24 11/06/24 oxyCODONE-APAP 10-325MG [Percocet 1 tab PO TID 02/28/24 11/06/24 10-325 mg] QUEtiapine [SEROquel] 100 mg PO TID 04/25/24 11/06/24 Ipratropium/Albuter 20-100Mcg 2 puff INHALATION DIRECTED 11/06/24 11/06/24 [Combivent Respimat 20-100Mcg Inhaler] SUMAtriptan succinate [Imitrex] 100 mg PO BID PRN 11/06/24 11/06/24 lisinopriL [Zestril] 20 mg PO DAILY 11/06/24 11/06/24 Allergies Allergy/AdvReac Type Severity Reaction Status Date / Time amoxicillin [Amoxicillin] Allergy Severe Anaphylaxis, Verified 11/06/24 19:39 seizures ciprofloxacin [From Cipro] Allergy Severe Rash/Hives, Verified 11/06/24 19:39 seizures codeine phosphate Allergy Unknown Rash/Hives Verified 11/06/24 19:39 [From Tylenol-Codeine #3] bee venom protein (honey bee) Allergy Anaphylaxis Verified 11/06/24 19:39 cefuroxime axetil Allergy Rash/Hives Verified 11/06/24 19:39 [From Ceftin] gabapentin [From Neurontin] Allergy Swelling Verified 11/06/24 19:39 ketorolac [From Toradol] Allergy Rash/Hives Verified 11/06/24 19:39 latex Allergy Rash/Hives Verified 11/06/24 19:39 NSAIDS (Non-Steroidal Allergy Rash/Hives/Lip Verified 11/06/24 19:39 Anti-Inflamma Swelling sulfamethoxazole Allergy Itching Verified 11/06/24 19:39 [From Bactrim] trimethoprim [From Bactrim] Allergy Itching Verified 11/06/24 19:39 Review of Systems ROS Statement: Those systems with pertinent positive or pertinent negative responses have been documented in the HPI. ROS Other: All systems not noted in ROS Statement are negative. Past Medical History Past Medical History: No Reported History, Asthma, Fibromyalgia, GERD/Reflux, Hypertension, Musculoskeletal Disorder, Neurologic Disorder, Pneumonia, Seizure Disorder Additional Past Medical History / Comment(s): Multiple Sclerosis diagnosed 15- 16years ago, angina, migraines, DJD, interstitial cystitis, UTI, PCOS, vit D deficiency, bilateral optic neuritis with visual problems, generalized chronic pain, numbness/tingling bilateral lower legs, tachycardia, c-diff 5-9-16, seizures from MS last one around 2016. ADHD. PAST [employer] HISTORY: She has no history of STDs. PCOS. MS History of Any Multi-Drug Resistant Organisms: C-DIFF, MRSA Date of last positivie culture/infection: 2016 MDRO Source:: stool Past Surgical History: Cholecystectomy, Orthopedic Surgery Additional Past Surgical History / Comment(s): Lt shoulder rotator cuff repair 06/06/14, arthroscopic left knee 2000 & 2002, left shoulder reconstruction Past Anesthesia/Blood Transfusion Reactions: No Reported Reaction Additional Past Anesthesia/Blood Transfusion Reaction / Comment(s): Pt has never recieved blood. Past Psychological History: Anxiety, Bipolar, Depression Smoking Status: Former smoker Past Alcohol Use History: None Reported Past Drug Use History: None Reported, Cocaine, Heroin, Marijuana - Past Family History Mother Family Medical History: No Reported History Additional Family Medical History / Comment(s): mother is healthy. Maternal grandmother had uterine cancer. Maternal grandfather had bladder cancer. Father Family Medical History: Hypertension Additional Family Medical History / Comment(s): Paternal grandfather had an NV. General Exam Limitations: no limitations General appearance: alert, in no apparent distress Head exam: Present: atraumatic, normocephalic, normal inspection Respiratory exam: Present: normal lung sounds bilaterally. Absent: respiratory distress, wheezes, rales, rhonchi, stridor Cardiovascular Exam: Present: regular rate, normal rhythm GI/Abdominal exam: Present: soft, tenderness (Suprapubic), normal bowel sounds. Absent: distended Back exam: Present: other (Tenderness to palpation over the left lower back) Neurological exam: Present: alert, oriented X3, CN II-XII intact Psychiatric exam: Present: normal affect, normal mood Skin exam: Present: warm, dry, intact, normal color. Absent: rash Course Vital Signs 11/06/24 11/06/24 11/06/24 14:50 18:28 19:45 Temperature 97.6 F 97.8 F 97.9 F Pulse Rate 72 69 81 Respiratory 18 20 18 Rate Blood Pressure 120/99 95/68 102/65 O2 Sat by Pulse 99 95 100 Oximetry Medical Decision Making - Medical Decision Making This is a 44-year-old female who presents to the emergency department for u rinary symptoms and headaches. Was pt. sent in by a medical professional or institution? @ -No Did you speak to anyone other than the patient for history? @ -No Did you review nursing and triage notes? @ -Yes, and I agree, it is accurate with regards to the patient's symptoms. Were old charts reviewed? @ -No Differential Diagnosis? @ -UTI, pyelonephritis, kidney stone, STI, this is not meant to be an all- inclusive list. EKG interpreted by me (3pts min.)? @ -Not obtained X-rays interpreted by me (1pt min.)? @ -Not obtained CT interpreted by me (1pt min.)? @ -CT scan of the abdomen and pelvis obtained. My interpretation identifies no bowel wall thickening or free air. U/S interpreted by me (1pt. min.)? @ -Not obtained What testing was considered but not performed? (CT, X-rays, U/S, labs)? Why? @ -None What meds were considered but not given? Why? @ -None Did you discuss the management of the patient with other professionals? @ -Yes, Dr. Bean, who accepts the patient for admission Did you reconcile home meds? @ -Yes Was smoking cessation discussed for >3mins.? @ -No Was critical care preformed (if so, how long)? @ -No Were there social determinants of health that impacted care today? How? (Homelessness, low income, unemployed, alcoholism, drug addiction, transportation, low edu. Level, literacy, decrease access to med. care, halfway, rehab)? @ -No Was there de-escalation of care discussed even if they declined? (Discuss DNR or withdrawal of care, Hospice)? @ -No What co-morbidities impacted this encounter? (DM, HTN, Smoking, COPD, CAD, Cancer, CVA, Hep., AIDS, mental health diagnosis, sleep apnea, morbid obesity)? @ -MS Was patient admitted / discharged? @ -Admitted. Lab work demonstrates leukocytosis with a white blood cell count of 14.8. Lab work also demonstrates an ADEN with a creatinine of 1.25 and eGFR of 53. COVID, influenza, and RSV testing negative. Urinalysis consistent with infection and urine was sent for culture. CT scan of the abdomen and pelvis obtained revealing a right ovarian cystic lesion and was otherwise unremarkable. Abdominal pain likely related to the UTI that may have progressed to pyelonephritis, especially given that she notes pain in her back. The cramping in her legs may be a result of the dehydration with the ADEN. Patient was given multiple doses of pain medication and continued to be in severe discomfort and did not believe she could go home. She was also concerned about the optic neuritis. Patient admitted to medicine for concern of pyelonephritis as well as optic neuritis due to MS exacerbation. Consult placed for infectious disease and neurology. Blood culture obtained. Patient has multiple antibiotic allergies making treatment for the pyelonephritis difficult. She was given a dose of gentamicin and will defer the rest of the antibiotic choices to infectious disease. Patient also requested to avoid steroids for the optic neuritis until evaluated by neurology and infectious disease due to risk of making the infection worse. Case discussed with ED attending Dr. Ramirez. Undiagnosed new problem with uncertain prognosis? @ -None Drug Therapy requiring intensive monitoring for toxicity (Heparin, Nitro, Insulin, Cardizem)? @ -None Were any procedures done? @ -None Diagnosis/symptom? @ -Pyelonephritis, intractable pain, optic neuritis due to MS Acute, or Chronic, or Acute on Chronic? @ -Acute Uncomplicated (without systemic symptoms) or Complicated (systemic symptoms)? @ -Complicated Side effects of treatment? @ -None Exacerbation, Progression, or Severe Exacerbation] @ -Not applicable Poses a threat to life or bodily function? @ -Yes, worsening infection can become life-threatening - Lab Data Result diagrams: 11/06/24 15:18 11/06/24 15:18 Lab Results 11/06/24 11/06/24 11/06/24 Range/Units 15:18 15:18 15:18 WBC 14.8 H (3.8-10.6) k/uL RBC 4.91 (3.80-5.40) m/uL Hgb 14.5 (11.4-16.0) gm/dL Hct 44.2 (34.0-46.0) % MCV 90.0 (80.0-100.0) fL MCH 29.6 (25.0-35.0) pg MCHC 32.9 (31.0-37.0) g/dL RDW 13.2 (11.5-15.5) % Plt Count 459 H (150-450) k/uL MPV 7.1 Neutrophils % 85 % Lymphocytes % 6 % Monocytes % 6 % Eosinophils % 2 % Basophils % 0 % Neutrophils # 12.6 H (1.3-7.7) k/uL Lymphocytes # 0.8 L (1.0-4.8) k/uL Monocytes # 0.9 (0-1.0) k/uL Eosinophils # 0.2 (0-0.7) k/uL Basophils # 0.0 (0-0.2) k/uL Sodium 133 L (137-145) mmol/L Potassium 4.6 (3.5-5.1) mmol/L Chloride 100 (98-107) mmol/L Carbon Dioxide 21 L (22-30) mmol/L Anion Gap 12 mmol/L BUN 25 H (7-17) mg/dL Creatinine 1.25 H (0.52-1.04) mg/dL Est GFR (CKD-EPI)AfAm 62 (>60 ml/min/1.73 sqM) Est GFR (CKD-EPI)NonAf 53 (>60 ml/min/1.73 sqM) Glucose 111 H (74-99) mg/dL Plasma Lactic Acid Tom 1.1 (0.7-2.0) mmol/L Calcium 10.1 (8.4-10.2) mg/dL Phosphorus 5.6 H (2.5-4.5) mg/dL Magnesium 2.0 (1.6-2.3) mg/dL Total Bilirubin 0.8 (0.2-1.3) mg/dL AST 31 (14-36) U/L ALT 26 (4-34) U/L Alkaline Phosphatase 66 (38-126) U/L C-Reactive Protein 1.3 H (<1.0) mg/dL Total Protein 8.0 (6.3-8.2) g/dL Albumin 4.9 (3.5-5.0) g/dL HCG, Qual Urine Color Urine Appearance (Clear) Urine pH (5.0-8.0) Ur Specific [place] (1.001-1.035) Urine Protein (Negative) Urine Glucose (UA) (Negative) Urine Ketones (Negative) Urine Blood (Negative) Urine Nitrite (Negative) Urine Bilirubin (Negative) Urine Urobilinogen (<2.0) mg/dL Ur Leukocyte Esterase (Negative) Urine RBC (0-5) /hpf Urine WBC (0-5) /hpf Urine WBC Clumps (None) /hpf Urine Bacteria (None) /hpf Urine Mucus (None) /hpf Urine HCG, Qual (Not Detectd) Influenza Type A (PCR) (Not Detectd) Influenza Type B (PCR) (Not Detectd) RSV (PCR) (Not Detectd) SARS-CoV-2 (PCR) (Not Detectd) 11/06/24 11/06/24 11/06/24 Range/Units 15:18 15:18 15:43 WBC (3.8-10.6) k/uL RBC (3.80-5.40) m/uL Hgb (11.4-16.0) gm/dL Hct (34.0-46.0) % MCV (80.0-100.0) fL MCH (25.0-35.0) pg MCHC (31.0-37.0) g/dL RDW (11.5-15.5) % Plt Count (150-450) k/uL MPV Neutrophils % % Lymphocytes % % Monocytes % % Eosinophils % % Basophils % % Neutrophils # (1.3-7.7) k/uL Lymphocytes # (1.0-4.8) k/uL Monocytes # (0-1.0) k/uL Eosinophils # (0-0.7) k/uL Basophils # (0-0.2) k/uL Sodium (137-145) mmol/L Potassium (3.5-5.1) mmol/L Chloride (98-107) mmol/L Carbon Dioxide (22-30) mmol/L Anion Gap mmol/L BUN (7-17) mg/dL Creatinine (0.52-1.04) mg/dL Est GFR (CKD-EPI)AfAm (>60 ml/min/1.73 sqM) Est GFR (CKD-EPI)NonAf (>60 ml/min/1.73 sqM) Glucose (74-99) mg/dL Plasma Lactic Acid Tom (0.7-2.0) mmol/L Calcium (8.4-10.2) mg/dL Phosphorus (2.5-4.5) mg/dL Magnesium (1.6-2.3) mg/dL Total Bilirubin (0.2-1.3) mg/dL AST (14-36) U/L ALT (4-34) U/L Alkaline Phosphatase (38-126) U/L C-Reactive Protein (<1.0) mg/dL Total Protein (6.3-8.2) g/dL Albumin (3.5-5.0) g/dL HCG, Qual Not Detected Urine Color Urine Appearance (Clear) Urine pH (5.0-8.0) Ur Specific [place] (1.001-1.035) Urine Protein (Negative) Urine Glucose (UA) (Negative) Urine Ketones (Negative) Urine Blood (Negative) Urine Nitrite (Negative) Urine Bilirubin (Negative) Urine Urobilinogen (<2.0) mg/dL Ur Leukocyte Esterase (Negative) Urine RBC (0-5) /hpf Urine WBC (0-5) /hpf Urine WBC Clumps (None) /hpf Urine Bacteria (None) /hpf Urine Mucus (None) /hpf Urine HCG, Qual Not Detected (Not Detectd) Influenza Type A (PCR) Not Detected (Not Detectd) Influenza Type B (PCR) Not Detected (Not Detectd) RSV (PCR) Not Detected (Not Detectd) SARS-CoV-2 (PCR) Not Detected (Not Detectd) 11/06/24 Range/Units 17:48 WBC (3.8-10.6) k/uL RBC (3.80-5.40) m/uL Hgb (11.4-16.0) gm/dL Hct (34.0-46.0) % MCV (80.0-100.0) fL MCH (25.0-35.0) pg MCHC (31.0-37.0) g/dL RDW (11.5-15.5) % Plt Count (150-450) k/uL MPV Neutrophils % % Lymphocytes % % Monocytes % % Eosinophils % % Basophils % % Neutrophils # (1.3-7.7) k/uL Lymphocytes # (1.0-4.8) k/uL Monocytes # (0-1.0) k/uL Eosinophils # (0-0.7) k/uL Basophils # (0-0.2) k/uL Sodium (137-145) mmol/L Potassium (3.5-5.1) mmol/L Chloride (98-107) mmol/L Carbon Dioxide (22-30) mmol/L Anion Gap mmol/L BUN (7-17) mg/dL Creatinine (0.52-1.04) mg/dL Est GFR (CKD-EPI)AfAm (>60 ml/min/1.73 sqM) Est GFR (CKD-EPI)NonAf (>60 ml/min/1.73 sqM) Glucose (74-99) mg/dL Plasma Lactic Acid Tom (0.7-2.0) mmol/L Calcium (8.4-10.2) mg/dL Phosphorus (2.5-4.5) mg/dL Magnesium (1.6-2.3) mg/dL Total Bilirubin (0.2-1.3) mg/dL AST (14-36) U/L ALT (4-34) U/L Alkaline Phosphatase (38-126) U/L C-Reactive Protein (<1.0) mg/dL Total Protein (6.3-8.2) g/dL Albumin (3.5-5.0) g/dL HCG, Qual Urine Color Yellow Urine Appearance Cloudy H (Clear) Urine pH 5.5 (5.0-8.0) Ur Specific [place] 1.025 (1.001-1.035) Urine Protein 2+ H (Negative) Urine Glucose (UA) Negative (Negative) Urine Ketones Negative (Negative) Urine Blood Moderate H (Negative) Urine Nitrite Positive H (Negative) Urine Bilirubin Negative (Negative) Urine Urobilinogen <2.0 (<2.0) mg/dL Ur Leukocyte Esterase Large H (Negative) Urine RBC 20 H (0-5) /hpf Urine WBC >182 H (0-5) /hpf Urine WBC Clumps Few H (None) /hpf Urine Bacteria Rare H (None) /hpf Urine Mucus Rare H (None) /hpf Urine HCG, Qual (Not Detectd) Influenza Type A (PCR) (Not Detectd) Influenza Type B (PCR) (Not Detectd) RSV (PCR) (Not Detectd) SARS-CoV-2 (PCR) (Not Detectd) - Radiology Data Radiology results: report reviewed, image reviewed Disposition Clinical Impression: Pyelonephritis, Optic neuritis due to multiple sclerosis, ADEN (acute kidney injury) Disposition: ADMITTED IP TO THIS HOSP
[2024-11-06] MEDS: SODIUM CHLORIDE 0.9% 1,000 ML IV ONE (15:47)
[2024-11-06 15:51] LABS: Basophils % (A) 0 %; Eosinophils # (A) 0.2 k/uL (0-0.7); Eosinophils % (A) 2 %; HCT 44.2 % (34.0-46.0); HGB 14.5 gm/dL (11.4-16.0); Lymphocytes # (A) 0.8 k/uL (1.0-4.8); Lymphocytes % (A) 6 %; MCH 29.6 pg (25.0-35.0); MCHC 32.9 g/dL (31.0-37.0); Mean Platelet Volume 7.1; Monocytes # (A) 0.9 k/uL (0-1.0); Monocytes % (A) 6 %; Neutrophils # (A) 12.6 k/uL (1.3-7.7); Neutrophils % (A) 85 %; Platelet Count 459 k/uL (150-450); RBC 4.91 m/uL (3.80-5.40); RDW 13.2 % (11.5-15.5); WBC 14.8 k/uL (3.8-10.6)
[2024-11-06] MEDS: HYDROmorphone 1 MG/ML 1 ML SYRINGE IVP STA ×2 (15:51→17:02)
[2024-11-06] MEDS: ONDANSETRON 4 MG/2 ML VIAL IVP STA (15:51)
[2024-11-06 16:01] LABS: Influenza A Not Detected (Not Detectd); Influenza B Not Detected (Not Detectd); RSV Not Detected (Not Detectd)
[2024-11-06 16:02] LABS: ALT 26 U/L (4-34); AST 31 U/L (14-36); African American GFR (CKD) 62 (>60 ml/min/1.73 sqM); Albumin 4.9 g/dL (3.5-5.0); Alkaline Phosphatase 66 U/L (38-126); Anion Gap 12 mmol/L; Blood Urea Nitrogen 25 mg/dL (7-17); C Reactive Protein 1.3 mg/dL (<1.0); Calcium 10.1 mg/dL (8.4-10.2); Carbon Dioxide 21 mmol/L (22-30); Chloride 100 mmol/L (98-107); Glucose 111 mg/dL (74-99); Non-African American GFR(CKD) 53 (>60 ml/min/1.73 sqM); Phosphorus 5.6 mg/dL (2.5-4.5); Potassium 4.6 mmol/L (3.5-5.1); Sodium 133 mmol/L (137-145); Total Bilirubin 0.8 mg/dL (0.2-1.3)
[2024-11-06] MEDS: ORPHENADRINE 30 MG/ML 2 ML VIAL IVP STA (16:17)
--- NOTE | 2024-11-06 17:23 | CT ---
EXAMINATION TYPE: CT abdomen pelvis wo con DATE OF EXAM: 11/06/2024 5:16 PM COMPARISON: None. CLINICAL INDICATION: Female, 44 years old with history of Lower abdominal pain, back pain, Painful ur ination over the past week. Pt also having body aches and fatigue, and nausea, and diarrhea. Pt has h x of MS. TECHNIQUE: Axial images with sagittal coronal reformats. Examination of the solid and hollow viscera is limited given the lack of contrast. CT DLP: 1124.4 mGycm, Automated exposure control for dose reduction was used. FINDINGS: LUNG BASES: No evidence for nodule. No evidence for infiltrate. LIVER/GB: The gallbladder is unremarkable. No space-occupying hepatic lesion. PANCREAS: No pancreatic mass identified. No inflammatory process seen. SPLEEN: No evidence for splenomegaly. No intrasplenic lesions seen. ADRENALS: No adrenal nodules identified. No evidence for thickening. KIDNEYS: No evidence for renal mass. No nephrolithiasis. No hydronephrosis. BOWEL: Appendix has a normal appearance. No evidence of bowel obstruction. No inflammatory process. Lymph nodes: No evidence for adenopathy greater than 1 cm. Abdominal aorta: Atheromatous changes seen. No evidence for aneurysm. Genital organs: Cystic lesion in the right ovary measuring approximately 3.5 cm. The uterus and left ovary are unremarkable. No free fluid seen. Other: No significant abnormality. IMPRESSION: Cystic lesion in the right ovary measuring approximately 3.5 cm. [facility], , 11/06/2024 5:20 PM
[2024-11-06 18:01] LABS: Appearance,Urine Cloudy (Clear); Bacteria,Urine Rare /hpf; Bilirubin,Urine Negative (Negative); Blood,Urine Moderate (Negative); Color,Urine Yellow; Glucose,Urine (UA) Negative (Negative); Ketones,Urine Negative (Negative); Leukocyte Esterase,Urine Large (Negative); Mucus,Urine Rare /hpf; Nitrite,Urine Positive (Negative); PH, Urine 5.5 (5.0-8.0); Protein,Urine 2+ (Negative); RBC,Urine 20 /hpf (0-5); Specific Gravity,Urine 1.025 (1.001-1.035); Urobilinogen,Urine <2.0 mg/dL (<2.0); WBC,Urine >182 /hpf (0-5)
[2024-11-06] MEDS ORDERED: ACETAMINOPHEN TAB 325 MG TAB PO PRN (18:51)
[2024-11-06] MEDS ORDERED: NALOXONE 0.4 MG/ML 1 ML VIAL IV PRN (18:51)
[2024-11-06] MEDS ORDERED: HYDROmorphone 0.5 MG/0.5 ML SYRINGE IVP PRN (18:51)
[2024-11-06] MEDS: SODIUM CHLORIDE 0.9% 1,000 ML IV SCH (19:28)
[2024-11-06] MEDS: GENTAMICIN 340 MG in SODIUM CHLORIDE 0.9% 100 ML IVPB ONE (19:35)
[2024-11-06] MEDS: HYDROmorphone 1 MG/ML 1 ML SYRINGE IVP PRN (20:03)
[2024-11-06] MEDS ORDERED: LOPERAMIDE 2 MG CAP PO PRN (20:24)
[2024-11-06] MEDS ORDERED: ALBUTEROL NEBULIZED 2.5 MG/3 ML INHALATION PRN (20:24)
[2024-11-06] MEDS: diazePAM 5 MG TAB PO PRN (21:09)
[2024-11-06] MEDS: QUEtiapine 100 MG TAB PO SCH (21:10)
[2024-11-06] MEDS: oxyCODONE-APAP 10-325MG 1 EACH TAB PO SCH (21:10)
[2024-11-06] MEDS: DICYCLOMINE 20 MG TAB PO SCH (21:10)
[2024-11-06] MEDS: BACLOFEN 10 MG TAB PO SCH (21:10)
[2024-11-06] MEDS: ONDANSETRON ODT 4 MG TAB PO PRN (21:14)
[2024-11-06] MEDS: PANTOPRAZOLE 40 MG TABLET PO SCH (21:15)
--- NOTE | 2024-11-07 00:42 | P.HPIM ---
History of Present Illness H&P Date: 11/06/24 Chief Complaint: Lower abdominal pain 44-year-old female who presents to the emergency department for urinary symptoms. Patient states that a week ago she developed diarrhea and started taking Imodium which did seem to help. She then started to develop burning with urination and suprapubic discomfort which has since persisted. She tried drinking lots of fluids, but did not get any relief. She has now developed pain in the lower back as well. Last night she developed a lot of cramping in her bilateral upper and lower extremities which lasted for several hours. States that this was very painful and she has never experienced anything like this. Also reports problems with her vision in her right eye and a headache, and states that it feels like another MS exacerbation. Lab work also demonstrates an ADEN with a creatinine of 1.25 and eGFR of 53; WBC of 14.8, hemoglobin of 14.5 and platelet count of 459. COVID, influenza, and RSV testing negative. Urinalysis consistent with infection and urine was sent for culture. CT scan of the abdomen and pelvis obtained revealing a right ovarian cystic lesion and was otherwise unremarkable. Abdominal pain likely related to the UTI that may have progressed to pyelonephritis Review of Systems REVIEW OF SYSTEMS: CONSTITUTIONAL: No fever, no malaise, no fatigue. HEENT: No recent visual problems or hearing problems. Denied any sore throat. CARDIOVASCULAR: No chest pain, orthopnea, PND, no palpitations, no syncope. PULMONARY: No shortness of breath, no cough, no hemoptysis. GASTROINTESTINAL: No diarrhea, no nausea, no vomiting, no abdominal pain. NEUROLOGICAL: No headaches, no weakness, no numbness. HEMATOLOGICAL: Denies any bleeding or petechiae. GENITOURINARY: Denies any burning micturition, frequency, or urgency. MUSCULOSKELETAL/RHEUMATOLOGICAL: Denies any joint pain, swelling, or any muscle pain. ENDOCRINE: Denies any polyuria or polydipsia. The rest of the 14-point review of systems is negative. Past Medical History Past Medical History: No Reported History, Asthma, Fibromyalgia, GERD/Reflux, Hypertension, Musculoskeletal Disorder, Neurologic Disorder, Pneumonia, Seizure Disorder Additional Past Medical History / Comment(s): Multiple Sclerosis diagnosed 15- 16years ago, angina, migraines, DJD, interstitial cystitis, UTI, PCOS, vit D deficiency, bilateral optic neuritis with visual problems, generalized chronic pain, numbness/tingling bilateral lower legs, tachycardia, c-diff 5-9-16, seizures from MS last one around 2017. ADHD. 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 PCOS. MS History of Any Multi-Drug Resistant Organisms: C-DIFF, MRSA Date of last positivie culture/infection: 2016 MDRO Source:: stool Past Surgical History: Cholecystectomy, Orthopedic Surgery Additional Past Surgical History / Comment(s): Lt shoulder rotator cuff repair 06/06/14, arthroscopic left knee 2000 & 2002, left shoulder reconstruction Past Anesthesia/Blood Transfusion Reactions: No Reported Reaction Additional Past Anesthesia/Blood Transfusion Reaction / Comment(s): Pt has never recieved blood. Past Psychological History: Anxiety, Bipolar, Depression Smoking Status: Former smoker Past Alcohol Use History: None Reported Past Drug Use History: None Reported, Cocaine, Heroin, Marijuana - Past Family History Mother Family Medical History: No Reported History Additional Family Medical History / Comment(s): mother is healthy. Maternal grandmother had uterine cancer. Maternal grandfather had bladder cancer. Father Family Medical History: Hypertension Additional Family Medical History / Comment(s): Paternal grandfather had an NV. Medications and Allergies Home Medications Medication Instructions Recorded Confirmed Type FLUoxetine HCL [PROzac] 20 mg PO DAILY 11/23/23 11/06/24 History Albuterol Inhaler [Ventolin Hfa 2 puff INHALATION RT-QID PRN 02/28/24 11/06/24 History Inhaler] Baclofen [Lioresal] 20 mg PO BID 02/28/24 11/06/24 History Dextroamphetamine/Amphetamine 30 mg PO BID@0730,1630 02/28/24 11/06/24 History [Adderall] Dicyclomine [Bentyl] 20 mg PO TID 02/28/24 11/06/24 History Loperamide [Imodium] 2 mg PO QID PRN 02/28/24 11/06/24 History Loratadine [Claritin] 10 mg PO DAILY 02/28/24 11/06/24 History Metoprolol Tartrate [Lopressor] 50 mg PO DAILY 02/28/24 11/06/24 History Ondansetron Odt [Zofran ODT] 4 mg PO BID PRN 02/28/24 11/06/24 History Pantoprazole [Protonix] 40 mg PO BID 02/28/24 11/06/24 History diazePAM 10 mg PO DAILY PRN 02/28/24 11/06/24 History oxyCODONE-APAP 10-325MG [Percocet 1 tab PO TID 02/28/24 11/06/24 History 10-325 mg] QUEtiapine [SEROquel] 100 mg PO TID 04/25/24 11/06/24 History Ipratropium/Albuter 20-100Mcg 2 puff INHALATION DIRECTED 11/06/24 11/06/24 History [Combivent Respimat 20-100Mcg Inhaler] SUMAtriptan succinate [Imitrex] 100 mg PO BID PRN 11/06/24 11/06/24 History lisinopriL [Zestril] 20 mg PO DAILY 11/06/24 11/06/24 History Allergies Allergy/AdvReac Type Severity Reaction Status Date / Time amoxicillin [Amoxicillin] Allergy Severe Anaphylaxis, Verified 11/06/24 19:39 seizures ciprofloxacin [From Cipro] Allergy Severe Rash/Hives, Verified 11/06/24 19:39 seizures codeine phosphate Allergy Unknown Rash/Hives Verified 11/06/24 19:39 [From Tylenol-Codeine #3] bee venom protein (honey bee) Allergy Anaphylaxis Verified 11/06/24 19:39 cefuroxime axetil Allergy Rash/Hives Verified 11/06/24 19:39 [From Ceftin] gabapentin [From Neurontin] Allergy Swelling Verified 11/06/24 19:39 ketorolac [From Toradol] Allergy Rash/Hives Verified 11/06/24 19:39 latex Allergy Rash/Hives Verified 11/06/24 19:39 NSAIDS (Non-Steroidal Allergy Rash/Hives/Lip Verified 11/06/24 19:39 Anti-Inflamma Swelling sulfamethoxazole Allergy Itching Verified 11/06/24 19:39 [From Bactrim] trimethoprim [From Bactrim] Allergy Itching Verified 11/06/24 19:39 Physical Exam Vitals: Vital Signs Temp Pulse Resp BP Pulse Ox 11/06/24 19:45 97.9 F 81 18 102/65 100 11/06/24 18:28 97.8 F 69 20 95/68 95 11/06/24 14:50 97.6 F 72 18 120/99 99 Intake and Output 11/06/24 11/06/24 11/06/24 06:59 14:59 22:59 Other: Voiding Method Toilet Weight 81.647 kg General appearance: alert, in no apparent distress Head exam: Present: atraumatic, normocephalic, normal inspection Respiratory exam: Present: normal lung sounds bilaterally. Absent: respiratory distress, wheezes, rales, rhonchi, stridor Cardiovascular Exam: Present: regular rate, normal rhythm GI/Abdominal exam: Present: soft, tenderness (Suprapubic), normal bowel sounds. Absent: distended Back exam: Present: other (Tenderness to palpation over the left lower back) Neurological exam: Present: alert, oriented X3, CN II-XII intact Psychiatric exam: Present: normal affect, normal mood Skin exam: Present: warm, dry, intact, normal color. Absent: rash Results CBC & Chem 7: 11/06/24 15:18 11/06/24 15:18 Labs: Abnormal Lab Results - Last 24 Hours (Table) 11/06/24 11/06/24 11/06/24 Range/Units 15:18 15:18 17:48 WBC 14.8 H (3.8-10.6) k/uL Plt Count 459 H (150-450) k/uL Neutrophils # 12.6 H (1.3-7.7) k/uL Lymphocytes # 0.8 L (1.0-4.8) k/uL Sodium 133 L (137-145) mmol/L Carbon Dioxide 21 L (22-30) mmol/L BUN 25 H (7-17) mg/dL Creatinine 1.25 H (0.52-1.04) mg/dL Glucose 111 H (74-99) mg/dL Phosphorus 5.6 H (2.5-4.5) mg/dL C-Reactive Protein 1.3 H (<1.0) mg/dL Urine Appearance Cloudy H (Clear) Urine Protein 2+ H (Negative) Urine Blood Moderate H (Negative) Urine Nitrite Positive H (Negative) Ur Leukocyte Esterase Large H (Negative) Urine RBC 20 H (0-5) /hpf Urine WBC >182 H (0-5) /hpf Urine WBC Clumps Few H (None) /hpf Urine Bacteria Rare H (None) /hpf Urine Mucus Rare H (None) /hpf Assessment and Plan Assessment: 1. Acute pyelonephritis -Patient has been placed on IV Rocephin in ED; we will continue to urine culture and sensitivities available -Urine culture and blood cultures done in ED -We will monitor CBC, CRP and procalcitonin -Consult ID for further recommendations 2. Mild ADEN; slow IV fluid hydration with normal saline at a rate of 75 cc an hour; will monitor strict SERGEY's, daily weights, renal function electrolytes; avoid nephrotoxins and hypotension 3. Optic neuritis due to multiple sclerosis; patient feels she is having acute exacerbation -We will consult neurology 4. Leukocytosis; related to acute pyelonephritis; will monitor CBC 5. Hypertension; lisinopril 20 mg daily; metoprolol 50 mg daily 6. COPD/asthma; Combivent inhaler 2 puffs as directed 7. Fibromyalgia/back pain; patient takes baclofen 20 mg twice daily diazepam 10 mg p.o. daily as needed 8. Anxiety/depression; Prozac 20 mg daily; Adderall 30 mg twice daily DVT prophylaxis; SCDs CODE STATUS; full code
[2024-11-07] MEDS: IPRATROPIUM-ALBUTEROL 3 ML NEB INHALATION SCH (05:01)
[2024-11-07] MEDS: FLUoxetine HCL 20 MG CAP PO SCH (07:35)
[2024-11-07] MEDS: NON FORMULARY DRUG (Dextroamphetamine/Amphetamine [Adderall] 30 MG Tablet) PO SCH (07:35)
[2024-11-07] MEDS: LORATADINE 10 MG TAB PO SCH (07:35)
[2024-11-07] MEDS: METOPROLOL TARTRATE 50 MG TAB PO SCH (07:35)
[2024-11-07] MEDS: lisinopriL 20 MG TAB PO SCH (07:35)
[2024-11-07] MEDS ORDERED: PANTOPRAZOLE 40 MG/10 ML VIAL IV SCH (09:00)
[2024-11-07] MEDS: HYDROmorphone 0.5 MG/0.5 ML SYRINGE IVP PRN (11:54)
--- NOTE | 2024-11-07 12:43 | P.PN ---
Subjective Progress Note Date: 11/07/24 44-year-old female who presents to the emergency department for urinary symptoms. Patient states that a week ago she developed diarrhea and started taking Imodium which did seem to help. She then started to develop burning with urination and suprapubic discomfort which has since persisted. She tried dr inking lots of fluids, but did not get any relief. She has now developed pain in the lower back as well. Last night she developed a lot of cramping in her bilateral upper and lower extremities which lasted for several hours. States that this was very painful and she has never experienced anything like this. Also reports problems with her vision in her right eye and a headache, and states that it feels like another MS exacerbation. Lab work also demonstrates an ADEN with a creatinine of 1.25 and eGFR of 53; WBC of 14.8, hemoglobin of 14.5 and platelet count of 459. COVID, influenza, and RSV testing negative. Urinalysis consistent with infection and urine was sent for culture. CT scan of the abdomen and pelvis obtained revealing a right ovarian cystic lesion and was otherwise unremarkable. Abdominal pain likely related to the UTI that may have progressed to pyelonephritis Objective - Vital Signs Vital signs: Vital Signs Temp 97.7 F 11/06/24 21:17 Pulse 76 11/06/24 21:17 Resp 20 11/06/24 21:17 BP 113/86 11/06/24 21:17 Pulse Ox 97 11/06/24 21:17 FiO2 Intake & Output 11/06/24 11/06/24 11/07/24 06:59 18:59 06:59 Weight 81.647 kg Other: Voiding Method Toilet - Exam General appearance: alert, in no apparent distress Head exam: Present: atraumatic, normocephalic, normal inspection Respiratory exam: Present: normal lung sounds bilaterally. Absent: respiratory distress, wheezes, rales, rhonchi, stridor Cardiovascular Exam: Present: regular rate, normal rhythm GI/Abdominal exam: Present: soft, tenderness (Suprapubic), normal bowel sounds. Absent: distended Back exam: Present: other (Tenderness to palpation over the left lower back) Neurological exam: Present: alert, oriented X3, CN II-XII intact Psychiatric exam: Present: normal affect, normal mood Skin exam: Present: warm, dry, intact, normal color. Absent: rash - Labs CBC & Chem 7: 11/06/24 15:18 11/06/24 15:18 Labs: Abnormal Lab Results - Last 24 Hours (Table) 11/06/24 11/06/24 11/06/24 Range/Units 15:18 15:18 17:48 WBC 14.8 H (3.8-10.6) k/uL Plt Count 459 H (150-450) k/uL Neutrophils # 12.6 H (1.3-7.7) k/uL Lymphocytes # 0.8 L (1.0-4.8) k/uL Sodium 133 L (137-145) mmol/L Carbon Dioxide 21 L (22-30) mmol/L BUN 25 H (7-17) mg/dL Creatinine 1.25 H (0.52-1.04) mg/dL Glucose 111 H (74-99) mg/dL Phosphorus 5.6 H (2.5-4.5) mg/dL C-Reactive Protein 1.3 H (<1.0) mg/dL Urine Appearance Cloudy H (Clear) Urine Protein 2+ H (Negative) Urine Blood Moderate H (Negative) Urine Nitrite Positive H (Negative) Ur Leukocyte Esterase Large H (Negative) Urine RBC 20 H (0-5) /hpf Urine WBC >182 H (0-5) /hpf Urine WBC Clumps Few H (None) /hpf Urine Bacteria Rare H (None) /hpf Urine Mucus Rare H (None) /hpf Assessment and Plan Assessment: 1. Acute pyelonephritis -Patient has been placed on IV Rocephin in ED; we will continue to urine culture and sensitivities available -Urine culture and blood cultures done in ED -We will monitor CBC, CRP and procalcitonin -Consult ID for further recommendations 2. Mild ADEN; slow IV fluid hydration with normal saline at a rate of 75 cc an hour; will monitor strict SERGEY's, daily weights, renal function electrolytes; avoid nephrotoxins and hypotension 3. Optic neuritis due to multiple sclerosis; patient feels she is having acute exacerbation -We will consult neurology 4. Leukocytosis; related to acute pyelonephritis; will monitor CBC 5. Hypertension; lisinopril 20 mg daily; metoprolol 50 mg daily 6. COPD/asthma; Combivent inhaler 2 puffs as directed 7. Fibromyalgia/back pain; patient takes baclofen 20 mg twice daily diazepam 10 mg p.o. daily as needed 8. Anxiety/depression; Prozac 20 mg daily; Adderall 30 mg twice daily DVT prophylaxis; SCDs CODE STATUS; full code
--- NOTE | 2024-11-07 13:48 | P.CONS ---
History of Present Illness - Reason for Consult Consult date: 11/07/24 Pyelonephritis Requesting physician: Maday Quinn - Chief Complaint Burning urine and suprapubic pain x days - History of Present Illness Patient is a 44-year-old female with a past medical history significant for asthma fibromyalgia reflux hypertension pneumonia seizure disorder patient was brought into the hospital for evaluation of urinary symptoms and this patient be complaining of burning with urination and suprapubic discomfort that started after the patient did have a piece of diarrhea that was treated outpatient setting with Imodium with worsening of her symptoms patient has been brought to the hospital patient also complaining of pain to the lower back as well the pain is mostly dull aching to sharp moderate intense without any radiation. Denies having any hematuria did have some stable no high-grade fever no chest pain shortness of breath or cough some nausea and vomiting on presentation to hospital patient was afebrile no fever have recorded subsequently patient did have elevated white to 14.8 BUN/creatinine mildly elevated urine has been positive influenza RSV COVID testing has been negative patient did have multiple antibiotic allergies probably this consultation patient also have abdominal pelvis CT cystic lesion in the right ovary measuring up approximately 3.5 cm did not mention any hydronephrosis or nephrolithiasis Review of Systems Positive point and negatives has been mentioned in the HPI, complete review of systems was performed and all other systems are negative Past Medical History Past Medical History: No Reported History, Asthma, Fibromyalgia, GERD/Reflux, Hypertension, Musculoskeletal Disorder, Neurologic Disorder, Pneumonia, Seizure Disorder Additional Past Medical History / Comment(s): Multiple Sclerosis diagnosed 15- 16years ago, angina, migraines, DJD, interstitial cystitis, UTI, PCOS, vit D deficiency, bilateral optic neuritis with visual problems, generalized chronic pain, numbness/tingling bilateral lower legs, tachycardia, c-diff 5-9-16, seizures from MS last one around 2017. ADHD. 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 PCOS. MS History of Any Multi-Drug Resistant Organisms: C-DIFF, MRSA Year Discovered:: 2017 MDRO Source:: stool Past Surgical History: Cholecystectomy, Orthopedic Surgery Additional Past Surgical History / Comment(s): Lt shoulder rotator cuff repair 06/06/14, arthroscopic left knee 2000 & 2002, left shoulder reconstruction Past Anesthesia/Blood Transfusion Reactions: No Reported Reaction Additional Past Anesthesia/Blood Transfusion Reaction / Comm: Pt has never recieved blood. Past Psychological History: Anxiety, Bipolar, Depression Smoking Status: Former smoker Past Alcohol Use History: None Reported Past Drug Use History: None Reported, Cocaine, Heroin, Marijuana - Past Family History Mother Family Medical History: No Reported History Additional Family Medical History / Comment(s): mother is healthy. Maternal grandmother had uterine cancer. Maternal grandfather had bladder cancer. Father Family Medical History: Hypertension Additional Family Medical History / Comment(s): Paternal grandfather had an MS. Medications and Allergies Home Medications Medication Instructions Recorded Confirmed Type FLUoxetine HCL [PROzac] 20 mg PO DAILY 11/23/23 11/06/24 History Albuterol Inhaler [Ventolin Hfa 2 puff INHALATION RT-QID PRN 02/28/24 11/06/24 History Inhaler] Baclofen [Lioresal] 20 mg PO BID 02/28/24 11/06/24 History Dextroamphetamine/Amphetamine 30 mg PO BID@0730,1630 02/28/24 11/06/24 History [Adderall] Dicyclomine [Bentyl] 20 mg PO TID 02/28/24 11/06/24 History Loperamide [Imodium] 2 mg PO QID PRN 02/28/24 11/06/24 History Loratadine [Claritin] 10 mg PO DAILY 02/28/24 11/06/24 History Metoprolol Tartrate [Lopressor] 50 mg PO DAILY 02/28/24 11/06/24 History Ondansetron Odt [Zofran ODT] 4 mg PO BID PRN 02/28/24 11/06/24 History Pantoprazole [Protonix] 40 mg PO BID 02/28/24 11/06/24 History diazePAM 10 mg PO DAILY PRN 02/28/24 11/06/24 History oxyCODONE-APAP 10-325MG [Percocet 1 tab PO TID 02/28/24 11/06/24 History 10-325 mg] QUEtiapine [SEROquel] 100 mg PO TID 04/25/24 11/06/24 History Ipratropium/Albuter 20-100Mcg 2 puff INHALATION DIRECTED 11/06/24 11/06/24 History [Combivent Respimat 20-100Mcg Inhaler] SUMAtriptan succinate [Imitrex] 100 mg PO BID PRN 11/06/24 11/06/24 History lisinopriL [Zestril] 20 mg PO DAILY 11/06/24 11/06/24 History Allergies Allergy/AdvReac Type Severity Reaction Status Date / Time amoxicillin [Amoxicillin] Allergy Severe Anaphylaxis, Verified 11/06/24 19:39 seizures ciprofloxacin [From Cipro] Allergy Severe Rash/Hives, Verified 11/06/24 19:39 seizures codeine phosphate Allergy Unknown Rash/Hives Verified 11/06/24 19:39 [From Tylenol-Codeine #3] bee venom protein (honey bee) Allergy Anaphylaxis Verified 11/06/24 19:39 cefuroxime axetil Allergy Rash/Hives Verified 11/06/24 19:39 [From Ceftin] gabapentin [From Neurontin] Allergy Swelling Verified 11/06/24 19:39 ketorolac [From Toradol] Allergy Rash/Hives Verified 11/06/24 19:39 latex Allergy Rash/Hives Verified 11/06/24 19:39 NSAIDS (Non-Steroidal Allergy Rash/Hives/Lip Verified 11/06/24 19:39 Anti-Inflamma Swelling sulfamethoxazole Allergy Itching Verified 11/06/24 19:39 [From Bactrim] trimethoprim [From Bactrim] Allergy Itching Verified 11/06/24 19:39 Physical Exam Vitals: Vital Signs Temp Pulse Pulse Resp BP BP Pulse Ox 11/07/24 09:45 78 11/07/24 09:37 80 11/07/24 07:43 98.3 F 87 17 118/72 99 11/07/24 01:18 97.9 F 80 18 93/64 95 11/06/24 21:17 97.7 F 76 20 113/86 97 11/06/24 19:45 97.9 F 81 18 102/65 100 11/06/24 18:28 97.8 F 69 20 95/68 95 11/06/24 14:50 97.6 F 72 18 120/99 99 Intake and Output 11/06/24 11/07/24 11/07/24 22:59 06:59 14:59 Intake Total 960 Balance 960 Intake: Oral 960 Other: Voiding Method Toilet Toilet # Voids 2 Weight 81.647 kg GENERAL DESCRIPTION: Middle-age female lying in bed, no distress. No tachypnea or accessory muscle of respiration use. HEENT: Shows Pallor , no scleral icterus. Oral mucous membrane is dry. NECK: Trachea central, no thyromegaly. LUNGS: Unlabored breathing. Clear to auscultation anteriorly. No wheeze or crackle. HEART: S1, S2, regular rate and rhythm. No loud murmur ABDOMEN: Soft, no tenderness , EXTREMITIES: No edema of feet. SKIN: No rash, no masses palpable. NEUROLOGICAL: The patient is awake, alert, mood and affect normal. Results CBC & Chem 7: 11/06/24 15:18 11/06/24 15:18 Labs: Abnormal Lab Results - Last 24 Hours (Table) 11/06/24 11/06/24 11/06/24 Range/Units 15:18 15:18 17:48 WBC 14.8 H (3.8-10.6) k/uL Plt Count 459 H (150-450) k/uL Neutrophils # 12.6 H (1.3-7.7) k/uL Lymphocytes # 0.8 L (1.0-4.8) k/uL Sodium 133 L (137-145) mmol/L Carbon Dioxide 21 L (22-30) mmol/L BUN 25 H (7-17) mg/dL Creatinine 1.25 H (0.52-1.04) mg/dL Glucose 111 H (74-99) mg/dL Phosphorus 5.6 H (2.5-4.5) mg/dL C-Reactive Protein 1.3 H (<1.0) mg/dL Urine Appearance Cloudy H (Clear) Urine Protein 2+ H (Negative) Urine Blood Moderate H (Negative) Urine Nitrite Positive H (Negative) Ur Leukocyte Esterase Large H (Negative) Urine RBC 20 H (0-5) /hpf Urine WBC >182 H (0-5) /hpf Urine WBC Clumps Few H (None) /hpf Urine Bacteria Rare H (None) /hpf Urine Mucus Rare H (None) /hpf Assessment and Plan (1) Pyelonephritis Current Visit: Yes Status: Acute Code(s): N12 - TUBULO-INTERSTITIAL NEPHRITIS, NOT SPCF ACUTE OR CHRONIC SNOMED Code(s): 68783365 (2) Allergy to multiple antibiotics Current Visit: No Status: Acute Code(s): Z88.1 - ALLERGY STATUS TO OTHER ANTIBIOTIC AGENTS SNOMED Code(s): 542626353 Plan: 1patient presented hospital with urinary burning frequency suprapubic and flank pain with significantly positive UA concerning for UTI/pyelonephritis likely from enteric gram-negative pathogen. 2patient with multiple antibiotic ALLERGIES that would limit the number of antibiotic safe to use. 3we will start the patient on Azactam 2 g every 8 hours while waiting for the culture to finalize. We will follow on clinical condition and cultures to further adjust medication if needed Thank you for this consultation we will follow the patient along with you Dictation was produced using [employer] dictation software. please excuse any grammatical, word or spelling errors. Time with Patient: Greater than 30
[2024-11-07] MEDS: AZTREONAM 2 GM in SODIUM CHLORIDE 0.9% 100 ML IVPB SCH (14:25)
--- NOTE | 2024-11-07 23:26 | P.CNNES ---
History of Present Illness Consult date: 11/07/24 Requesting physician: Maday Quinn Reason for Consult: Optic neuritis due to MS History of Present Illness: This is a telemedicine neurology consultation performed today on 11/07/2024 in collaboration with Nayla Shahid. Patient is a 44-year-old female with longstanding history of multiple sclerosis came to the hospital with diarrhea of 4 days duration. She tried Imodium. About 2 days ago, she woke up and both legs to the thigh cramped. When she tried to stand up, the legs would start cramping. Any time she would move, the legs would tighten up. Ice would help. The diarrhea has resolved, but because of these neurological symptoms she came to the hospital. Patient denies any new neurological symptoms otherwise. Her leg still hurts when she moves. She has previously tried Flexeril, which did not help. Patient states that she started Mavenclad and the first dose was received in May 2023. Her second dose is due in May 2024. She follows up with Dr. Soria. Patient has previously tried Tecfidera, but developed significant side effects. She received Ocrevus 1 dose, but developed significant reaction, as her lips swell up and developed hives. She was off disease modifying agents for a year. She had previously tried Avonex, Copaxone, Gilenya, as well. Her last JCV titers were positive at 3.68 on 08/31/2018. She started Vumerity in the middle of April, but she developed GI side effects. She was recommended to take one tablet in the morning 2 at night instead of 2 tablets twice a day. She still had some symptoms, therefore she stopped taking Vumerity in September 2022. Patient denies any tobacco use. Patient's vitals on arrival blood pressure was 120/99, pulse is 72 temperature 97.6. Patient has been afebrile. Blood test shows WBC 14.8 hemoglobin 14.5 and platelets are 459. Sodium 133 potassium 4.6, BUN 25, creatinine 1.25. Hepatic panel is normal. UA shows positive nitrite, large amount of leukocyte Estrace, 20 RBC and more than 182 WBCs. Rare bacteria. Influenza, the skin coronavirus PCR negative. Patient had a CT of abdomen and pelvis, which revealed cystic lesion in the right ovary measuring approximately 3.5 cm. We will defer to IM t o address ovarian cyst. Patient had an MRI of the brain with and without contrast on 09/16/2024, which revealed mild progression of disease and findings felt to reflect multiple sclerosis Levy finger morphology. I had seen patient in the hospital after this MRI, and agreed there was slight progression of disease in the left subcortical region. No enhancing lesions noted on the current study. Patient received 4 day course of steroids and was discharged on tapering oral dose of prednisone. Review of Systems All pertinent positive and negative review of systems mentioned in the HPI. Otherwise unremarkable. Past Medical History Past Medical History: No Reported History, Asthma, Fibromyalgia, GERD/Reflux, Hypertension, Musculoskeletal Disorder, Neurologic Disorder, Pneumonia, Seizure Disorder Additional Past Medical History / Comment(s): Multiple Sclerosis diagnosed 15- 16years ago, angina, migraines, DJD, interstitial cystitis, UTI, PCOS, vit D deficiency, bilateral optic neuritis with visual problems, generalized chronic pain, numbness/tingling bilateral lower legs, tachycardia, c-diff 5-9-16, seizures from MS last one around 2016. ADHD. 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 PCOS. MS History of Any Multi-Drug Resistant Organisms: C-DIFF, MRSA Date of last positivie culture/infection: 2016 MDRO Source:: stool Past Surgical History: Cholecystectomy, Orthopedic Surgery Additional Past Surgical History / Comment(s): Lt shoulder rotator cuff repair 06/06/14, arthroscopic left knee 2000 & 2002, left shoulder reconstruction Past Anesthesia/Blood Transfusion Reactions: No Reported Reaction Additional Past Anesthesia/Blood Transfusion Reaction / Comment(s): Pt has never recieved blood. Past Psychological History: Anxiety, Bipolar, Depression Smoking Status: Former smoker Past Alcohol Use History: None Reported Past Drug Use History: None Reported, Cocaine, Heroin, Marijuana - Past Family History Mother Family Medical History: No Reported History Additional Family Medical History / Comment(s): mother is healthy. Maternal grandmother had uterine cancer. Maternal grandfather had bladder cancer. Father Family Medical History: Hypertension Additional Family Medical History / Comment(s): Paternal grandfather had an IA. Medications and Allergies Home Medications Medication Instructions Recorded Confirmed Type FLUoxetine HCL [PROzac] 20 mg PO DAILY 11/23/23 11/06/24 History Albuterol Inhaler [Ventolin Hfa 2 puff INHALATION RT-QID PRN 02/28/24 11/06/24 History Inhaler] Baclofen [Lioresal] 20 mg PO BID 02/28/24 11/06/24 History Dextroamphetamine/Amphetamine 30 mg PO BID@0730,1630 02/28/24 11/06/24 History [Adderall] Dicyclomine [Bentyl] 20 mg PO TID 02/28/24 11/06/24 History Loperamide [Imodium] 2 mg PO QID PRN 02/28/24 11/06/24 History Loratadine [Claritin] 10 mg PO DAILY 02/28/24 11/06/24 History Metoprolol Tartrate [Lopressor] 50 mg PO DAILY 02/28/24 11/06/24 History Ondansetron Odt [Zofran ODT] 4 mg PO BID PRN 02/28/24 11/06/24 History Pantoprazole [Protonix] 40 mg PO BID 02/28/24 11/06/24 History diazePAM 10 mg PO DAILY PRN 02/28/24 11/06/24 History oxyCODONE-APAP 10-325MG [Percocet 1 tab PO TID 02/28/24 11/06/24 History 10-325 mg] QUEtiapine [SEROquel] 100 mg PO TID 04/25/24 11/06/24 History Ipratropium/Albuter 20-100Mcg 2 puff INHALATION DIRECTED 11/06/24 11/06/24 History [Combivent Respimat 20-100Mcg Inhaler] SUMAtriptan succinate [Imitrex] 100 mg PO BID PRN 11/06/24 11/06/24 History lisinopriL [Zestril] 20 mg PO DAILY 11/06/24 11/06/24 History Allergies Allergy/AdvReac Type Severity Reaction Status Date / Time amoxicillin [Amoxicillin] Allergy Severe Anaphylaxis, Verified 11/06/24 19:39 seizures ciprofloxacin [From Cipro] Allergy Severe Rash/Hives, Verified 11/06/24 19:39 seizures codeine phosphate Allergy Unknown Rash/Hives Verified 11/06/24 19:39 [From Tylenol-Codeine #3] bee venom protein (honey bee) Allergy Anaphylaxis Verified 11/06/24 19:39 cefuroxime axetil Allergy Rash/Hives Verified 11/06/24 19:39 [From Ceftin] gabapentin [From Neurontin] Allergy Swelling Verified 11/06/24 19:39 ketorolac [From Toradol] Allergy Rash/Hives Verified 11/06/24 19:39 latex Allergy Rash/Hives Verified 11/06/24 19:39 NSAIDS (Non-Steroidal Allergy Rash/Hives/Lip Verified 11/06/24 19:39 Anti-Inflamma Swelling sulfamethoxazole Allergy Itching Verified 11/06/24 19:39 [From Bactrim] trimethoprim [From Bactrim] Allergy Itching Verified 11/06/24 19:39 Physical Examination - Vital Signs Vital Signs: Vital Signs Temp Pulse Pulse Resp BP BP Pulse Ox 11/07/24 14:00 97.9 F 85 17 102/62 98 11/07/24 09:45 78 11/07/24 09:37 80 11/07/24 07:43 98.3 F 87 17 118/72 99 11/07/24 01:18 97.9 F 80 18 93/64 95 11/06/24 21:17 97.7 F 76 20 113/86 97 11/06/24 19:45 97.9 F 81 18 102/65 100 11/06/24 18:28 97.8 F 69 20 95/68 95 Intake and Output 11/07/24 11/07/24 11/07/24 06:59 14:59 22:59 Intake Total 960 Balance 960 Intake: Oral 960 Other: Voiding Method Toilet # Voids 2 Patient is a middle aged female in no acute distress. Patient is alert awake oriented to time place and person. Speech and language functions are normal. Patient can name and repeat very well. No aphasia or dysarthria. Attention, concentration and fund of knowledge is adequate. On cranial nerve examination, pupils are equal, round and reacting to light, visual pacheco are full on confrontation, with no neglect on double simultaneous stimulation. Extraocular muscles are intact with no nystagmus. Face is symmetric, tongue protrudes to the midline. Palatal elevation and sensation normal, hearing and shoulder shrug normal, facial sensation normal. On muscle strength testing, there is no pronator drift and the strength is normal in arms and legs distally and proximally, except hip flexion, which is 4 on the right, with decreased effort on the left, ankle dorsiflexion normal bilaterally. Deep tendon reflexes are hypoactive and trace, plantars downgoing. Sensory to touch is equal with no neglect on double simultaneous stimulation. Cerebellar function showed no ataxia for [id number] testing. No dysdiadochokinesia. She has some ataxia for [id number] testing on the right side. Tone and bulk of muscles normal. Gait deferred.. On general examination, there is no carotid bruit or murmur, S1-S2 audible. Chest is clear on consultation. Abdomen is soft nontender. No organomegaly, bowel sounds present. Peripheral pulses are present. No peripheral edema. Results - Laboratory Findings CBC and BMP: 11/06/24 15:18 11/06/24 15:18 Abnormal Lab Findings: Abnormal Labs 11/06/24 11/06/24 11/06/24 15:18 15:18 17:48 WBC 14.8 H Plt Count 459 H Neutrophils # 12.6 H Lymphocytes # 0.8 L Sodium 133 L Carbon Dioxide 21 L BUN 25 H Creatinine 1.25 H Glucose 111 H Phosphorus 5.6 H C-Reactive Protein 1.3 H Urine Appearance Cloudy H Urine Protein 2+ H Urine Blood Moderate H Urine Nitrite Positive H Ur Leukocyte Esterase Large H Urine RBC 20 H Urine WBC >182 H Urine WBC Clumps Few H Urine Bacteria Rare H Urine Mucus Rare H Assessment and Plan Assessment: * Relapsing remitting multiple sclerosis, currently in remission. * Leg cramps, likely due to dehydration, renal insufficiency and electrolytes imbalance. * Above, secondary to diarrhea. * Acute pyelonephritis * History of recurrent UTI * Obesity * History of right occipital neuralgia Plan: * Patient currently on Azactam for acute UTI/pyelonephritis. * Patient's neurological examination is stable. No evidence of MS exacerbation. * Continue antibiotics as per infectious disease. * No indication for steroids at that time. * Neurology will follow sporadically. * Thank you for the consult.
[2024-11-08] MEDS: HYDROmorphone 0.5 MG/0.5 ML SYRINGE IVP PRN (11:10)
[2024-11-08] MEDS: ENOXAPARIN 40 MG/0.4 ML SYRINGE SQ SCH (11:10)
--- NOTE | 2024-11-08 12:56 | P.PN ---
Progress Note - Text Progress Note Date: 11/08/24 44-year-old female who presents to the emergency department for urinary symptoms. Patient states that a week ago she developed diarrhea and started taking Imodium which did seem to help. She then started to develop burning with urination and suprapubic discomfort which has since persisted. She tried drinking lots of fluids, but did not get any relief. She has now developed pain in the lower back as well. Last night she developed a lot of cramping in her bilateral upper and lower extremities which lasted for several hours. States that this was very painful and she has never experienced anything like this. Also reports problems with her vision in her right eye and a headache, and st ates that it feels like another MS exacerbation. Lab work also demonstrates an ADEN with a creatinine of 1.25 and eGFR of 53; WBC of 14.8, hemoglobin of 14.5 and platelet count of 459. COVID, influenza, and RSV testing negative. Urinalysis consistent with infection and urine was sent for culture. CT scan of the abdomen and pelvis obtained revealing a right ovarian cystic lesion and was otherwise unremarkable. Abdominal pain likely related to the UTI that may have progressed to pyelonephritis November 08: Patient requesting Dilaudid. Dose to have increased frequency. Patient also was getting a Percocet. Did inform the patient that will be too much I am DC her Percocet. Keep the current dose of Dilaudid but changed to every 4. Also DC Valium. For muscle spasms patient already getting baclofen. Urine cultures pending. No fever. Tolerating diet. Spoke to the patient and nurse to get the patient up in the chair. Active Medications Acetaminophen (Acetaminophen Tab 325 Mg Tab) 650 mg PO Q6HR PRN PRN Reason: Mild Pain or Fever > 100.5 Albuterol Sulfate (Albuterol Nebulized 2.5 Mg/3 Ml) 2.5 mg INHALATION RT-QID PRN PRN Reason: Shortness Of Breath Albuterol/Ipratropium (Ipratropium-Albuterol 3 Ml Neb) 3 ml INHALATION RT-BID [facility] Last Admin: 11/08/24 09:52 Dose: 3 ml Baclofen (Baclofen 10 Mg Tab) 20 mg PO BID [facility] Last Admin: 11/08/24 08:35 Dose: 20 mg Dicyclomine HCl (Dicyclomine 20 Mg Tab) 20 mg PO TID [facility] Last Admin: 11/08/24 08:35 Dose: 20 mg Enoxaparin Sodium (Enoxaparin 40 Mg/0.4 Ml Syringe) 40 mg SQ DAILY [facility] Last Admin: 11/08/24 11:10 Dose: 40 mg Fluoxetine HCl (Fluoxetine Hcl 20 Mg Cap) 20 mg PO DAILY [facility] Last Admin: 11/08/24 08:34 Dose: 20 mg Hydromorphone HCl (Hydromorphone 0.5 Mg/0.5 Ml Syringe) 0.2 mg IVP Q4H PRN PRN Reason: Pain Last Admin: 11/08/24 11:10 Dose: 0.2 mg Sodium Chloride (Saline 0.9%) 1,000 mls @ 75 mls/hr IV .[id number] [facility] Last Admin: 11/08/24 11:00 Dose: Not Given Aztreonam 2 gm/ Sodium (Chloride) 100 mls @ 33.3 mls/hr IVPB Q8H [facility]; Protocol Last Admin: 11/08/24 04:57 Dose: 33.3 mls/hr Lisinopril (Lisinopril 20 Mg Tab) 20 mg PO DAILY [facility] Last Admin: 11/08/24 08:39 Dose: Not Given Loperamide HCl (Loperamide 2 Mg Cap) 2 mg PO QID PRN PRN Reason: Diarrhea Loratadine (Loratadine 10 Mg Tab) 10 mg PO DAILY [facility] Last Admin: 11/08/24 08:34 Dose: 10 mg Metoprolol Tartrate (Metoprolol Tartrate 50 Mg Tab) 50 mg PO DAILY [facility] Last Admin: 11/08/24 08:39 Dose: Not Given Naloxone HCl (Naloxone 0.4 Mg/Ml 1 Ml Vial) 0.2 mg IV Q2M PRN PRN Reason: Opioid Reversal Non-Formulary Medication (Dextroamphetamine/Amphetamine Adderall) 30 mg PO BID@0730,1630 [facility] Last Admin: 11/08/24 07:11 Dose: Not Given Ondansetron HCl (Ondansetron 4 Mg/2 Ml Vial) 4 mg IVP Q8HR PRN PRN Reason: Nausea And Vomiting Ondansetron HCl (Ondansetron Odt 4 Mg Tab) 4 mg PO BID PRN PRN Reason: Nausea Last Admin: 11/06/24 21:14 Dose: 4 mg Pantoprazole Sodium (Pantoprazole 40 Mg Tablet) 40 mg PO AC-BID [facility] Last Admin: 11/08/24 08:34 Dose: 40 mg Quetiapine Fumarate (Quetiapine 100 Mg Tab) 100 mg PO TID [facility] Last Admin: 11/08/24 08:34 Dose: 100 mg Sumatriptan Succinate (Sumatriptan Succinate 50 Mg Tab) 100 mg PO BID PRN PRN Reason: Migraine Headache Social history: Stopped smoking in 2017. Lives with her and daughter. Past history of cocaine inhaling heroin marijuana pain pills. Physical examination: VITAL SIGNS: 98.4, 94, 16, 99 x 68, 94% room air GENERAL: [BMI 29.1, laying in bed, appears comfortable EYES: Pupils equal. Conjunctiva ilan l. HEENT: External appearance of nose and ears normal, oral cavity grossly normal. NECK: JVD not raised; masses not palpable. HEART: First and second heart sounds are normal; no edema. LUNGS: Respiratory rate normal; air entry. ABDOMEN: Soft, nontender, liver spleen not palpable, no masses palpable. PSYCH: Alert and oriented x3; mood, affect normal MUSCULOSKELETAL:No Clubbing/cyanosis;muscles-grossly intact NEUROLOGICAL: [Cranial nerves grossly intact; no facial asymmetry, some decrease in power on the right side INVESTIGATIONS, reviewed in the clinical context: January 06: White count 14.8 hemoglobin 14.5 platelets 459 sodium 133 potassium 4.6 BUN 25 creatinine 1.25 UA positive for blood, nitrate, leukoesterase Influenza type A, type B, RSV, SARS-CoV-2: Not detected Urine culture: Gram-negative bacilli Assessment: 1. Acute pyelonephritis -Patient has been placed on IV Rocephin in ED; we will continue to urine culture and sensitivities available -Urine culture and blood cultures pending ID following 2. Mild ADEN; slow IV fluid hydration with normal saline at a rate of 75 cc an hour; will monitor strict SERGEY's, daily weights, renal function electrolytes; avoid nephrotoxins and hypotension Repeat labs 3. Optic neuritis due to multiple sclerosis; Patient is seen by Dr. Mayo from neurology. No acute exacerbation. Patient in remission 4. Leukocytosis; related to acute pyelonephritis; 5. Hypertension; lisinopril 20 mg daily; metoprolol 50 mg daily 6. COPD/asthma; Combivent inhaler 2 puffs as directed 7. Fibromyalgia/back pain; patient takes baclofen 20 mg twice daily Valium held because of IV Dilaudid. Patient complaining increased pain in the thigh area. Requesting IV Dilaudid. Hence Percocet discontinued Bilateral Doppler lower extremity to rule out DVT 8. Anxiety/depression; Prozac 20 mg daily; Adderall 30 mg twice daily DVT prophylaxis; SCDs CODE STATUS; full code Lengthy discussion with patient about pain medications. Stop Percocet. Change frequency of Dilaudid to every 4. Up in chair. Doppler ultrasound bilateral thighs to rule out DVT. Subcu Lovenox
--- NOTE | 2024-11-08 13:48 | US ---
EXAMINATION TYPE: US venous doppler duplex LE BI DATE OF EXAM: 11/08/2024 1:40 PM COMPARISON: US(10/02/2020) CLINICAL INDICATION: Female, 44 years old with history of Thigh pain-rule out DVT; no hx of DVT, pt h ad bad cramps in her right leg a few days ago, Pain TECHNIQUE: The lower extremity deep venous system is examined utilizing real time linear array sonog colin with graded compression, color doppler sonography, and spectral doppler. SIDE PERFORMED: Bilateral FINDINGS: VESSELS IMAGED: Common Femoral Vein Deep Femoral Vein Greater Saphenous Vein * Femoral Vein Popliteal Vein Small Saphenous Vein * Proximal Calf Veins (* superficial vessels) limited exam due to pt body habitus, pt unable to tolerate pressure Right Leg: appears negative for DVT shows patency of the vessels. Spectral waveforms are within norm al limits. Left Leg: appears negative for DVTws patency of the vessels. Spectral waveforms are within normal li mits. IMPRESSION: Suboptimal study. No ultrasound evidence for acute deep venous thrombosis bilaterally. [facility], , 11/08/2024 1:46 PM
[2024-11-08] MEDS: ONDANSETRON 4 MG/2 ML VIAL IVP PRN (18:55)
[2024-11-09 07:50] VITALS: BP 117/84; PULSE 87; RESP 17; TEMP 97.5
[2024-11-09 08:47] LABS: African American GFR (CKD) >90 (>60 ml/min/1.73 sqM); Anion Gap 5 mmol/L; Blood Urea Nitrogen 11 mg/dL (7-17); Calcium 8.2 mg/dL (8.4-10.2); Carbon Dioxide 26 mmol/L (22-30); Chloride 105 mmol/L (98-107); Glucose 95 mg/dL (74-99); Non-African American GFR(CKD) >90 (>60 ml/min/1.73 sqM); Potassium 3.9 mmol/L (3.5-5.1); Sodium 136 mmol/L (137-145)
[2024-11-09] MEDS: SUMAtriptan succinate 50 MG TAB PO PRN (09:09)
[2024-11-09] MEDS ORDERED: oxyCODONE-APAP 10-325MG 1 EACH TAB PO PRN (11:27)
--- NOTE | 2024-11-09 12:57 | P.PN ---
Subjective Progress Note Date: 11/08/24 Principal diagnosis: Reason for follow-up UTI multiple antibiotic allergies Patient is a 44-year-old female with a past medical history significant for asthma fibromyalgia reflux hypertension pneumonia seizure disorder patient was brought into the hospital for evaluation of urinary symptoms and this patient be complaining of burning with urination and suprapubic discomfort, diagnosed with a UTI, ID consulted because of multiple antibiotic allergies On today's evaluation that is 11/08/2024, patient has been afebrile, patient is breathing comfortably and is currently on room air, patient denies having any significant cough no chest pain, patient denies nausea vomiting or diarrhea and improvement in abdominal pain No lab draw today Objective - Vital Signs Vital signs: Vital Signs Temp 98.4 F 11/08/24 07:49 Pulse 92 11/08/24 10:02 Resp 16 11/08/24 10:02 BP 99/68 11/08/24 07:49 Pulse Ox 94 L 11/08/24 07:49 FiO2 Intake & Output 11/07/24 11/08/24 11/08/24 18:59 06:59 18:59 Intake Total 1080 Balance 1080 Intake: Oral 1080 Other: Voiding Method Toilet Toilet Toilet Bedside Commode # Voids 2 3 - Exam GENERAL DESCRIPTION: Middle aged female lying in bed in no distress RESPIRATORY SYSTEM: Unlabored breathing , decreased breath sounds at bases HEART: S1 S2 regular rate and rhythm , ABDOMEN: Soft , no tenderness EXTREMITIES: No edema feet - Labs CBC & Chem 7: 11/06/24 15:18 11/09/24 07:53 Labs: Microbiology - Last 24 Hours (Table) 11/06/24 17:48 Urine Culture - Preliminary Urine,Clean Catch Gram Neg Bacilli 11/06/24 18:48 Blood Culture - Preliminary Blood Assessment and Plan (1) Pyelonephritis Current Visit: Yes Status: Acute Code(s): N12 - TUBULO-INTERSTITIAL NEPHRITIS, NOT SPCF ACUTE OR CHRONIC SNOMED Code(s): 55371584 (2) Allergy to multiple antibiotics Current Visit: No Status: Acute Code(s): Z88.1 - ALLERGY STATUS TO OTHER ANTIBIOTIC AGENTS SNOMED Code(s): 538496229 Plan: 1patient presented hospital with urinary burning frequency suprapubic and flank pain with significantly positive UA concerning for UTI/pyelonephritis likely from enteric gram-negative pathogen. 2patient with multiple antibiotic ALLERGIES that would limit the number of antibiotic safe to use. 3patient to continue with Azactam 2 g every 8 hours while waiting for the culture to finalize. Dictation was produced using [employer] dictation software. please excuse any grammatical, word or spelling errors. Time with Patient: Less than 30
--- NOTE | 2024-11-09 12:58 | P.PN ---
Subjective Progress Note Date: 11/09/24 Principal diagnosis: Reason for follow-up UTI multiple antibiotic allergies Patient is a 44-year-old female with a past medical history significant for asthma fibromyalgia reflux hypertension pneumonia seizure disorder patient was brought into the hospital for evaluation of urinary symptoms and this patient be complaining of burning with urination and suprapubic discomfort, diagnosed with a UTI, ID consulted because of multiple antibiotic allergies On today's evaluation that is 11/09/2024, Patient is afebrile this morning patient denies having any chest pain shortness of breath or cough, the patient is currently on room air, patient denies any abdominal pain no diarrhea no nausea no vomiting. Patient did have a creatinine 0.59, urine has been finalized with an E. coli that is a sensitive pathogen Objective - Vital Signs Vital signs: Vital Signs Temp 97.5 F L 11/09/24 07:10 Pulse 87 11/09/24 07:10 Resp 17 11/09/24 07:10 BP 117/84 11/09/24 07:10 Pulse Ox 94 L 11/09/24 07:10 FiO2 Intake & Output 11/08/24 11/09/24 11/09/24 18:59 06:59 18:59 Intake Total 1620 1080 240 Balance 1620 1080 240 Intake: Oral 1620 1080 240 Other: Voiding Method Toilet Toilet Toilet Bedside Commode Bedside Commode Bedside Commode # Voids 3 2 # Bowel Movements 2 0 - Exam GENERAL DESCRIPTION: Middle aged female lying in bed in no distress RESPIRATORY SYSTEM: Unlabored breathing , decreased breath sounds at bases HEART: S1 S2 regular rate and rhythm , ABDOMEN: Soft , no tenderness EXTREMITIES: No edema feet - Labs CBC & Chem 7: 11/06/24 15:18 11/09/24 07:53 Labs: Abnormal Lab Results - Last 24 Hours (Table) 11/09/24 Range/Units 07:53 Sodium 136 L (137-145) mmol/L Calcium 8.2 L (8.4-10.2) mg/dL Microbiology - Last 24 Hours (Table) 11/06/24 17:48 Urine Culture - Final Urine,Clean Catch Escherichia coli 11/06/24 18:48 Blood Culture - Preliminary Blood Assessment and Plan (1) Pyelonephritis Current Visit: Yes Status: Acute Code(s): N12 - TUBULO-INTERSTITIAL NEPHRITIS, NOT SPCF ACUTE OR CHRONIC SNOMED Code(s): 70470489 (2) Allergy to multiple antibiotics Current Visit: No Status: Acute Code(s): Z88.1 - ALLERGY STATUS TO OTHER ANTIBIOTIC AGENTS SNOMED Code(s): 037335181 Plan: 1patient presented hospital with urinary burning frequency suprapubic and flank pain with significantly positive UA concerning for UTI/pyelonephritis likely from enteric gram-negative pathogen. 2patient with multiple antibiotic ALLERGIES that would limit the number of antibiotic safe to use. 3patient has shown clinical improvement with Azactam, urine culture have been finalized with E. coli that is sensitive to Macrobid prescription for Macrobid sent to the pharmacy Dictation was produced using [employer] dictation software. please excuse any grammatical, word or spelling errors. Time with Patient: Less than 30
--- NOTE | 2024-11-09 16:56 | P.DS ---
Providers Date of admission: 11/06/24 18:34 Expected date of discharge: 11/09/24 Attending physician: Mark Lloyd Consults: 11/06/24 18:51 Consult Physician Urgent Consulting Provider: Domingo Leija Consult Reason/Comments: Pyelonephritis Do you want consulting provider notified?: Yes 11/06/24 18:59 Consult Physician Urgent Consulting Provider: Gilles Drake Consult Reason/Comments: Optic neuritis due to MS Do you want consulting provider notified?: Yes Primary care physician: [facility] Course: 44-year-old female who presents to the emergency department for urinary symptoms. Patient states that a week ago she developed diarrhea and started taking Imodium which did seem to help. She then started to develop burning with urination and suprapubic discomfort which has since persisted. She tried drinking lots of fluids, but did not get any relief. She has now developed pain in the lower back as well. Last night she developed a lot of cramping in her bilateral upper and lower extremities which lasted for several hours. States that this was very painful and she has never experienced anything like this. Also reports problems with her vision in her right eye and a headache, and states that it feels like another MS exacerbation. Lab work also demonstrates an ADEN with a creatinine of 1.25 and eGFR of 53; WBC of 14.8, hemoglobin of 14.5 and platelet count of 459. COVID, influenza, and RSV testing negative. Urinalysis consistent with infection and urine was sent for culture. CT scan of the abdomen and pelvis obtained revealing a right ovarian cystic lesion and was otherwise unremarkable. Abdominal pain likely related to the UTI that may have progressed to pyelonephritis November 08: Patient requesting Dilaudid. Dose to have increased frequency. Patient also was getting a Percocet. Did inform the patient that will be too much I am DC her Percocet. Keep the current dose of Dilaudid but changed to every 4. Also DC Valium. For muscle spasms patient already getting baclofen. Urine cultures pending. No fever. Tolerating diet. Spoke to the patient and nurse to get the patient up in the chair. November 09: Urine culture growing E. coli. Patient be discharged on nitrofurantoin 100 twice daily per ID. Patient be discharged otherwise at home medications. Discussed Social history: Stopped smoking in 2016. Lives with her and daughter. Past history of cocaine inhaling heroin marijuana pain pills. Physical examination: VITAL SIGNS: 97.5, 87, 17, 117 x 84, 94% room air GENERAL: [BMI 29.1, comfortable EYES: Pupils equal. Conjunctiva ilan l. HEENT: External appearance of nose and ears normal, oral cavity grossly normal. NECK: JVD not raised; masses not palpable. HEART: First and second heart sounds are normal; no edema. LUNGS: Respiratory rate normal; air entry. ABDOMEN: Soft, nontender, liver spleen not palpable, no masses palpable. PSYCH: Alert and oriented x3; mood, affect normal MUSCULOSKELETAL:No Clubbing/cyanosis;muscles-grossly intact NEUROLOGICAL: [Cranial nerves grossly intact; no facial asymmetry, some decrease in power on the right side INVESTIGATIONS, reviewed in the clinical context: November 09: Sodium 136 potassium 3.9 creatinine 0.59 Urine culture: E. coli November 06: White count 14.8 hemoglobin 14.5 platelets 459 sodium 133 potassium 4.6 BUN 25 creatinine 1.25 UA positive for blood, nitrate, leukoesterase Influenza type A, type B, RSV, SARS-CoV-2: Not detected Doppler ultrasound, bilateral lower extremity: Negative for DVT Assessment: 1. Acute pyelonephritis, with urine culture positive for E. coli -Patient has been placed on IV Rocephin in ED; we will continue to urine culture and sensitivities available -Urine culture and blood cultures pending ID following. Discharged on nitrofurantoin 100 mg twice daily for 10 days 2. Mild ADEN; slow IV fluid hydration with normal saline at a rate of 75 cc an hour; will monitor strict SERGEY's, daily weights, renal function electrolytes; avoid nephrotoxins and hypotension: Improved Repeat labs 3. Optic neuritis due to multiple sclerosis; Patient is seen by Dr. Mayo from neurology. No acute exacerbation. Patient in remission 4. Leukocytosis; related to acute pyelonephritis; 5. Hypertension; lisinopril 20 mg daily; metoprolol 50 mg daily 6. COPD/asthma; Combivent inhaler 2 puffs as directed 7. Fibromyalgia/back pain; patient takes baclofen 20 mg twice daily Valium held because of IV Dilaudid. Patient complaining increased pain in the thigh area. Requesting IV Dilaudid. Hence Percocet discontinued Bilateral Doppler lower extremity to rule out DVT 8. Anxiety/depression; Prozac 20 mg daily; Adderall 30 mg twice daily DVT prophylaxis; SCDs CODE STATUS; full code Disposition: Home Plan - Discharge Summary New Discharge Prescriptions: New Nitrofurantoin Monohyd/M-Cryst [Macrobid] 100 mg PO Q12HR #20 cap Continue Loperamide [Imodium] 2 mg PO QID PRN PRN Reason: Diarrhea oxyCODONE-APAP 10-325MG [Percocet 10-325 mg] 1 tab PO TID Baclofen [Lioresal] 20 mg PO BID Ondansetron Odt [Zofran ODT] 4 mg PO BID PRN PRN Reason: Nausea Albuterol Inhaler [Ventolin Hfa Inhaler] 2 puff INHALATION RT-QID PRN PRN Reason: Shortness Of Breath lisinopriL [Zestril] 20 mg PO DAILY SUMAtriptan succinate [Imitrex] 100 mg PO BID PRN PRN Reason: Migraine Headache FLUoxetine HCL [PROzac] 20 mg PO DAILY Pantoprazole [Protonix] 40 mg PO BID Loratadine [Claritin] 10 mg PO DAILY Metoprolol Tartrate [Lopressor] 50 mg PO DAILY Dicyclomine [Bentyl] 20 mg PO TID Dextroamphetamine/Amphetamine [Adderall] 30 mg PO BID@0730,1630 diazePAM 10 mg PO DAILY PRN PRN Reason: Anxiety QUEtiapine [SEROquel] 100 mg PO TID Ipratropium/Albuter 20-100Mcg [Combivent Respimat 20-100Mcg Inhaler] 2 puff INHALATION RT-BID Discharge Medication List FLUoxetine HCL [PROzac] 20 mg PO DAILY 11/23/23 [History] Albuterol Inhaler [Ventolin Hfa Inhaler] 2 puff INHALATION RT-QID PRN 02/28/24 [History] Baclofen [Lioresal] 20 mg PO BID 02/28/24 [History] Dextroamphetamine/Amphetamine [Adderall] 30 mg PO BID@0730,1630 02/28/24 [History] Dicyclomine [Bentyl] 20 mg PO TID 02/28/24 [History] Loperamide [Imodium] 2 mg PO QID PRN 02/28/24 [History] Loratadine [Claritin] 10 mg PO DAILY 02/28/24 [History] Metoprolol Tartrate [Lopressor] 50 mg PO DAILY 02/28/24 [History] Ondansetron Odt [Zofran ODT] 4 mg PO BID PRN 02/28/24 [History] Pantoprazole [Protonix] 40 mg PO BID 02/28/24 [History] diazePAM 10 mg PO DAILY PRN 02/28/24 [History] oxyCODONE-APAP 10-325MG [Percocet 10-325 mg] 1 tab PO TID 02/28/24 [History] QUEtiapine [SEROquel] 100 mg PO TID 04/25/24 [History] Ipratropium/Albuter 20-100Mcg [Combivent Respimat 20-100Mcg Inhaler] 2 puff INHALATION RT-BID 11/06/24 [History] SUMAtriptan succinate [Imitrex] 100 mg PO BID PRN 11/06/24 [History] lisinopriL [Zestril] 20 mg PO DAILY 11/06/24 [History] Nitrofurantoin Monohyd/M-Cryst [Macrobid] 100 mg PO Q12HR #20 cap 11/09/24 [Rx] Follow up Appointment(s)/Referral(s): Ceho Sanchez MD [Primary Care Provider] - 1-2 days (please call the office to schedule a follow up appointment.) [facility] Patient Instructions/Handouts: Nitrofurantoin Combination (By mouth), Acute Kidney Injury (DC), Urinary Tract Infection in Women (DC) Activity/Diet/Wound Care/Special Instructions: antibiotic per dr leija Discharge Disposition: HOME SELF-CARE
== END 2024-11-09 13:38 | disposition home or self-care (01) | DRG 690 ==
LOC: EC 14:43 → 5NMEDONC 18:34 → OBSVTOIN 18:34 → 5NMEDONC 20:04
PROVIDERS: ADMIT Hospitalist; ATTEND Hospitalist
DX: N10 Acute pyelonephritis (principal); N17.9 Acute kidney failure, unspecified; J44.89 Other specified chronic obstructive pulmonary disease; F31.9 Bipolar disorder, unspecified; G35 Multiple sclerosis; G40.909 Epilepsy, unspecified, not intractable, without status epilepticus; E66.9 Obesity, unspecified; I10 Essential (primary) hypertension; H46.9 Unspecified optic neuritis; Z11.52 Encounter for screening for COVID-19; B96.20 Unspecified Escherichia coli [E. coli] as the cause of diseases classified elsewhere; F41.9 Anxiety disorder, unspecified; Z79.899 Other long term (current) drug therapy; M79.7 Fibromyalgia; Z88.1 Allergy status to other antibiotic agents; E86.0 Dehydration; Z87.440 Personal history of urinary (tract) infections; M54.81 Occipital neuralgia; R19.7 Diarrhea, unspecified; M62.838 Other muscle spasm; Z68.25 Body mass index [BMI] 25.0-25.9, adult; Z88.5 Allergy status to narcotic agent; N30.10 Interstitial cystitis (chronic) without hematuria; N83.201 Unspecified ovarian cyst, right side; Z87.19 Personal history of other diseases of the digestive system; Z82.49 Family history of ischemic heart disease and other diseases of the circulatory system; Z87.891 Personal history of nicotine dependence; Z86.14 Personal history of Methicillin resistant Staphylococcus aureus infection; Z91.030 Bee allergy status; Z88.0 Allergy status to penicillin
CPT/HCPCS: 36415; 51701; 74176; 80048; 80053; 81001; 81025; 83605; 83735; 84100; 84703; 85025; 86140; 87040; 87077; 87086; 87186; 87636; 93970; 94640; 96361; 96365; 96375; 96376; 99285

== ENCOUNTER 2025-02-23 09:54 | Emergency (ER) | payer MEDICARE, OTHER ==
[2025-02-23 09:58] VITALS: BP 149/86; PULSE 55; RESP 20; TEMP 97.8
--- NOTE | 2025-02-23 10:24 | ED ---
General Adult HPI - General Chief complaint: Recheck/Abnormal Lab/Rx Stated complaint: L foot burn Time Seen by Provider: 02/23/25 10:17 Source: patient, RN notes reviewed Mode of arrival: ambulatory Limitations: no limitations - History of Present Illness Initial comments: 45-year-old female presenting for left ankle wound. States approximately 3 week s [place] the [place] a sunburn to the left lower leg. States the following day she had a large blister and went to [facility] where they dressed the wound and discharged her. She then went to [facility] last week where they prescribed her Silvadene cream and clindamycin. States she has been taking the clindamycin twice a day instead of 3 times daily as prescribed. She is also taking Percocet tens for pain. She presents today as she continues to have pain at the site. Denies fevers, chills, nausea, vomiting. - Related Data Home Medications Medication Instructions Recorded Confirmed FLUoxetine HCL [PROzac] 20 mg PO DAILY 11/23/23 11/06/24 Albuterol Inhaler [Ventolin Hfa 2 puff INHALATION RT-QID PRN 02/28/24 11/06/24 Inhaler] Baclofen [Lioresal] 20 mg PO BID 02/28/24 11/06/24 Dextroamphetamine/Amphetamine 30 mg PO BID@0730,1630 02/28/24 11/06/24 [Adderall] Dicyclomine [Bentyl] 20 mg PO TID 02/28/24 11/06/24 Loperamide [Imodium] 2 mg PO QID PRN 02/28/24 11/06/24 Loratadine [Claritin] 10 mg PO DAILY 02/28/24 11/06/24 Metoprolol Tartrate [Lopressor] 50 mg PO DAILY 02/28/24 11/06/24 Ondansetron Odt [Zofran ODT] 4 mg PO BID PRN 02/28/24 11/06/24 Pantoprazole [Protonix] 40 mg PO BID 02/28/24 11/06/24 diazePAM 10 mg PO DAILY PRN 02/28/24 11/06/24 oxyCODONE-APAP 10-325MG [Percocet 1 tab PO TID 02/28/24 11/06/24 10-325 mg] QUEtiapine [SEROquel] 100 mg PO TID 04/25/24 11/06/24 Ipratropium/Albuter 20-100Mcg 2 puff INHALATION RT-BID 11/06/24 11/08/24 [Combivent Respimat 20-100Mcg Inhaler] SUMAtriptan succinate [Imitrex] 100 mg PO BID PRN 11/06/24 11/06/24 lisinopriL [Zestril] 20 mg PO DAILY 11/06/24 11/06/24 Previous Rx's Medication Instructions Recorded Nitrofurantoin Monohyd/M-Cryst 100 mg PO Q12HR #20 cap 11/09/24 [Macrobid] Allergies Allergy/AdvReac Type Severity Reaction Status Date / Time amoxicillin [Amoxicillin] Allergy Severe Anaphylaxis, Verified 02/23/25 09:58 seizures ciprofloxacin [From Cipro] Allergy Severe Rash/Hives, Verified 02/23/25 09:58 seizures codeine phosphate Allergy Unknown Rash/Hives Verified 02/23/25 09:58 [From Tylenol-Codeine #3] bee venom protein (honey bee) Allergy Anaphylaxis Verified 02/23/25 09:58 cefuroxime axetil Allergy Rash/Hives Verified 02/23/25 09:58 [From Ceftin] gabapentin [From Neurontin] Allergy Swelling Verified 02/23/25 09:58 ketorolac [From Toradol] Allergy Rash/Hives Verified 02/23/25 09:58 latex Allergy Rash/Hives Verified 02/23/25 09:58 NSAIDS (Non-Steroidal Allergy Rash/Hives/Lip Verified 02/23/25 09:58 Anti-Inflamma Swelling sulfamethoxazole Allergy Itching Verified 02/23/25 09:58 [From Bactrim] trimethoprim [From Bactrim] Allergy Itching Verified 02/23/25 09:58 Review of Systems ROS Statement: Those systems with pertinent positive or pertinent negative responses have been documented in the HPI. ROS Other: All systems not noted in ROS Statement are negative. Past Medical History Past Medical History: No Reported History, Asthma, Fibromyalgia, GERD/Reflux, Hypertension, Musculoskeletal Disorder, Neurologic Disorder, Pneumonia, Seizure Disorder Additional Past Medical History / Comment(s): Multiple Sclerosis diagnosed 15- 16years ago, angina, migraines, DJD, interstitial cystitis, UTI, PCOS, vit D deficiency, bilateral optic neuritis with visual problems, generalized chronic pain, numbness/tingling bilateral lower legs, tachycardia, c-diff 5-9-16, seizures from MS last one around 2016. ADHD. PAST HOSPICE FELLOW HISTORY: She has no history of STDs. PCOS. MS History of Any Multi-Drug Resistant Organisms: C-DIFF, MRSA Date of last positivie culture/infection: 2016 MDRO Source:: stool Past Surgical History: Cholecystectomy, Orthopedic Surgery Additional Past Surgical History / Comment(s): Lt shoulder rotator cuff repair 06/06/14, arthroscopic left knee 2000 & 2002, left shoulder reconstruction Past Anesthesia/Blood Transfusion Reactions: No Reported Reaction Additional Past Anesthesia/Blood Transfusion Reaction / Comment(s): Pt has never recieved blood. Past Psychological History: Anxiety, Bipolar, Depression Smoking Status: Former smoker Past Alcohol Use History: None Reported Past Drug Use History: None Reported, Cocaine, Heroin, Marijuana - Past Family History Mother Family Medical History: No Reported History Additional Family Medical History / Comment(s): mother is healthy. Maternal grandmother had uterine cancer. Maternal grandfather had bladder cancer. Father Family Medical History: Hypertension Additional Family Medical History / Comment(s): Paternal grandfather had an MD. General Exam Limitations: no limitations General appearance: alert, in no apparent distress Head exam: Present: atraumatic, normocephalic, normal inspection Left Knee exam: Present: normal inspection, full ROM. Absent: tenderness, swelling Lower Leg exam: Present: normal inspection, full ROM. Absent: tenderness, swelling Ankle exam: Present: full ROM, tenderness. Absent: normal inspection (There is a 4 x 4 cm well healing wound present to medial aspect of left ankle. No active drainage. No muscle or bone exposure), swelling Foot/Toe exam: Present: normal inspection, full ROM. Absent: tenderness, swelling Neurovascular tendon exam: Present: no vascular compromise. Absent: pulse deficit, abnormal cap refill, sensory deficit Neurological exam: Present: alert, oriented X3 Psychiatric exam: Present: normal affect, normal mood Skin exam: Present: warm, dry, intact, normal color. Absent: rash Course Vital Signs 02/23/25 09:55 Temperature 97.8 F Pulse Rate 55 L Respiratory 20 Rate Blood Pressure 149/86 O2 Sat by Pulse 98 Oximetry Medical Decision Making - Medical Decision Making Was pt. sent in by a medical professional or institution (NIELS Hatfield, DIE CUTTER OPERATOR, urgent care, hospital, or residential...) When possible be specific @ -No Did you speak to anyone other than the patient for history (EMS, parent, family, police, friend...)? What history was obtained from this source @ -No Did you review nursing and triage notes (agree or disagree)? Why? @ -I reviewed and agree with nursing and triage notes Were old charts reviewed (outside hosp., previous admission, EMS record, old EKG, old radiological studies, urgent care reports/EKG's, residential records)? Report findings @ -No old charts were reviewed Differential Diagnosis (chest pain, altered mental status, abdominal pain women, abdominal pain men, vaginal bleeding, weakness, fever, dyspnea, syncope, headache, dizziness, GI bleed, back pain, seizure, CVA, palpatations, mental health, musculoskeletal)? @ -Differential Musculoskeletal Burn, ulceration, muscular strain, contusion, ligament sprain, fracture, arthritis, septic arthritis, bursitis, cellulitis, muscle spasm, nerve compression, DVT, arterial occlusion, herpes zoster, electrolyte abnormality, tumor.... This is not meant to be in all inclusive list EKG interpreted by me (3pts min.). @ -None X-rays interpreted by me (1pt min.). @ -X-ray left ankle reveals no acute process CT interpreted by me (1pt min.). @ -None done U/S interpreted by me (1pt. min.). @ -None done What testing was considered but not performed or refused? (CT, X-rays, U/S, labs)? Why? @ -None What meds were considered but not given or refused? Why? @ -None Did you discuss the management of the patient with other professionals (professionals i.e. NIELS Hatfield, DIE CUTTER OPERATOR, lab, RT, psych nurse, protective services social worker, supervisor operations, teacher, environmental conservation officer, case specialist)? Give summary @ -No Was smoking cessation discussed for >3mins.? @ -No Was critical care preformed (if so, how long)? @ -No Were there social determinants of health that impacted care today? How? (Homelessness, low income, unemployed, alcoholism, drug addiction, transportation, low edu. Level, literacy, decrease access to med. care, group home, rehab)? @ -No Was there de-escalation of care discussed even if they declined (Discuss DNR or withdrawal of care, Hospice)? DNR status @ -No What co-morbidities impacted this encounter? (DM, HTN, Smoking, COPD, CAD, Cancer, CVA, ARF, Chemo, Hep., AIDS, mental health diagnosis, sleep apnea, mor bid obesity)? @ -None Was patient admitted / discharged? Hospital course, mention meds given and route, prescriptions, significant lab abnormalities, going to OR and other pertinent info. @ -Discharge. 45-year-old female presenting for left ankle wound x 3 weeks after suffering from a sunburn. Neurovascularly intact. Wound is not actively draining and appears to be healing well. X-ray left ankle reveals no acute process. Discussed with patient that she must take clindamycin as prescribed. She may continue Silvadene ointment. I offered to provide information for the burn center in [place] however patient states she will not drive to [place]. Patient can be safely discharged home with close PCP follow-up. Appropriate return precautions and supportive care discussed. Case was discussed with my ED attending Dr. Louise Undiagnosed new problem with uncertain prognosis? @ -No Drug Therapy requiring intensive monitoring for toxicity (Heparin, Nitro, Insulin, Cardizem)? @ -No Were any procedures done? @ -No Diagnosis/symptom? @ -Left ankle wound, sunburn Acute, or Chronic, or Acute on Chronic? @ -Acute Uncomplicated (without systemic symptoms) or Complicated (systemic symptoms)? @ -Uncomplicated Side effects of treatment? @ -No Exacerbation, Progression, or Severe Exacerbation? @ -No Poses a threat to life or bodily function? How? (Chest pain, USA, MD, pneumonia, PE, COPD, DKA, ARF, appy, cholecystitis, CVA, Diverticulitis, Homicidal, Suicidal, threat to staff... and all critical care pts) @ -No Disposition Clinical Impression: Sunburn, Wound of left foot Disposition: HOME SELF-CARE Condition: Stable Is patient prescribed a controlled substance at d/c from ED?: No Referrals: Cheo Sanchez MD [Primary Care Provider] - 1-2 days Time of Disposition: 10:57
--- NOTE | 2025-02-23 10:49 | XR ---
EXAMINATION TYPE: XR ankle complete LT DATE OF EXAM: 02/23/2025 10:31 AM COMPARISON: None CLINICAL INDICATION: Female, 45 years old with history of left ankle wound, pain TECHNIQUE: XR ankle complete LT; frontal, lateral and oblique projections. FINDINGS: There is no evidence of acute osseous pathology. No evidence of subluxation or dislocation. Kager's fat pad is intact. Mild soft tissue swelling around the ankle. No radiopaque foreign bodies are ident ified. Calcaneal plantar spurring is present. Soft tissue swelling present. IMPRESSION: 1. No evidence of acute fracture. 2. Subcutaneous swelling around the ankle likely secondary to underlying soft tissue injury. [facility], , 02/23/2025 10:46 AM
== END 2025-02-23 10:59 | disposition home or self-care (01) ==
LOC: EC 09:54
DX: S91.302A Unspecified open wound, left foot, initial encounter (principal); L55.9 Sunburn, unspecified; Z87.891 Personal history of nicotine dependence; Z88.0 Allergy status to penicillin; Z88.1 Allergy status to other antibiotic agents; Z88.2 Allergy status to sulfonamides; Z88.5 Allergy status to narcotic agent; Z88.6 Allergy status to analgesic agent; Z88.8 Allergy status to other drugs, medicaments and biological substances; Z91.030 Bee allergy status; Z91.040 Latex allergy status; X58.XXXA Exposure to other specified factors, initial encounter
CPT/HCPCS: 16020; 99283